=== PATIENT | male | born 1940 | race Caucasian/White ===

== ENCOUNTER 2016-04-28 10:48 | Emergency (ER) | payer OTHER ==
[~2016-04-28] VITALS: Ht 170.2 cm; Wt 126.6 kg
[~2016-04-28 10:48] MED LIST: AMIO200T4 PO; AMOX500T3 PO; ASPI81TA28 PO; BACL10TA PO; BUME2TAB3 PO; DABI1CAP PO; DOCU100C PO; METO25TA3 PO; MULT-106 PO; MULT-360 PO; POTA1080 PO; VITAMIN B12 INJ INJ
[2016-04-28 10:54] VITALS: TEMP 36.5; Ht 170.2 cm; Wt 126.6 kg
[2016-04-28] MEDS ORDERED: POTATAB13 PO (11:36)
[2016-04-28] MEDS ORDERED: AMOX1TAB42 PO (11:36)
[2016-04-28] MEDS ORDERED: [UNRECOGNIZED DRUG - CODE] PO (11:36)
[2016-04-28] MEDS ORDERED: POTA20TA16 PO (11:36)
[2016-04-28] MEDS ORDERED: OXYC1CAP5 PO (11:36)
[2016-04-28] MEDS ORDERED: CALC250T8 PO (11:36)
[2016-04-28] MEDS ORDERED: CHOL200027 PO (11:36)
[2016-04-28] MEDS ORDERED: LORAZEPAM 2 MG/ML 1 ML VIAL IV STA (12:01)
--- NOTE | 2016-04-28 12:06 | EMERGENCY ROOM VISIT NOTE ---
History Report prepared by Saman: Ludwin Palmer Under the Supervision of: Dr. Karissa Smith M.D. First contact with patient: 11:47 Chief Complaint: SWELLING TO EXTREMITY Stated Complaint: RT LEG/ANKLE SWOLLEN, RT HAND/WRIST PAIN History of Present Illness The patient is a 75 year old male who presents to the Emergency Room with complaints of constant swelling of the right lower extremity that began several days ago. The right lower extremity is also painful, rated 9/10 in severity. The patient also complains of pain to the right wrist and shortness of breath. The right wrist pain started at the same time as his leg swelling. The patient' s thought that his right wrist was swollen, which appears to be resolved. The patient commonly experiences shakes when he is in pain. The patient tripled his dose of diuretic last night. The patient has a history of knee surgery of both knees. He is also s/p gastric bypass. Source of History: patient Onset: several days ago Position: leg (right) Symptom Intensity: 9/10 Quality: other (swelling) Timing: constant Associated Symptoms: + SOB Review of Systems See HPI for pertinent positives & negatives. A total of 10 systems reviewed and were otherwise negative. Past Medical & Surgical Medical Problems: (1) ACUTE CHF, CHEST PAIN, BACK PAIN (2) Atrial fibrillation (3) Bioprosthetic bovine valve (4) Degenerative disc disease (5) Hyperlipidemia (6) Hypertension (7) Obstructive sleep apnea Family History No pertinent family history Social History Smoking Status: Never Smoker Marital Status: Housing Status: lives with family Occupation Status: retired, other Current/Historical Medications Scheduled Amiodarone Hcl (Cordarone), 200 MG PO QAM Amoxicillin (Amoxil), 20,000 MG PO PRN/UD Amoxicillin & Pot Clavulanate (Amoxicillin/Clavulanate P), 1 TAB PO TID Aspirin (Aspirin Ec), 81 MG PO QAM Baclofen (Lioresal), 0.5 TAB PO TID Bumetanide (Bumex), 2 MG PO BID Calcium Citrate (Calcium Citrate), 400 MG PO DAILY Cholecalciferol (Vitamin D-3), 2,000 UNITS PO DAILY Dabigatran Etexilate Mesylate (Pradaxa), 75 MG PO BID Docusate Sodium (Stool Softener), 100 MG PO HS Metoprolol Succ (Toprol Xl) (Toprol-Xl), 20 MG PO BID Multiple Vitamins W/ Minerals (One Daily Mens), 1 TAB PO QAM Potassium Citrate (Alkalinizer (Urocit-K 15), 20 MEQ PO TID Potassium Ext Rel (Klor-Con), 40 MEQ PO TID Zinc Gluconate (Zinc Gluconate), 1 TAB PO DAILY [Vitamin B12 Inj], 1 DOSE INJ UD Scheduled PRN Oxycodone Hcl (Oxycodone Hcl), 5 MG PO PRN PRN for Pain Allergies Coded Allergies: No Known Allergies (Verified , 03/05/16) Physical Exam Vital Signs Date Time Temp Pulse Resp B/P Pulse Ox O2 Delivery O2 Flow Rate FiO2 04/28/16 15:09 75 18 133/65 95 Room Air 04/28/16 13:58 68 20 153/76 96 Room Air 04/28/16 13:58 68 04/28/16 12:46 68 18 127/65 95 Room Air 04/28/16 11:38 Room Air 04/28/16 11:26 69 04/28/16 10:54 36.5 64 20 158/73 95 Room Air Physical Exam Vital signs reviewed. General: Well-appearing male that is hyperventilating, tearful and anxious. HEENT: No scleral icterus, PERRLA, neck supple. Atraumatic. Cardiovascular: Regular rate and rhythm, no extra sounds. Pulmonary: Clear to auscultation bilaterally, normal work of breathing. Abdomen: Soft, nontender, nondistended, positive bowel sounds. Musculoskeletal: Atraumatic. Slight swelling appreciated to the right greater than left lower extremities. BRISEIDA stockings in place. Neurologic: Patient awake alert and oriented x 3, full strength in all 4 extremities. Cranial nerves 2 through 12 grossly intact. Skin: Warm, dry, no rash Medical Decision & Procedures ER Provider Diagnostic Interpretation: X-ray results as stated below per my interpretation and radiologist interpretation. Other radiology results as stated below per my review and radiologist interpretation: RIGHT WRIST 4 VIEWS CLINICAL HISTORY: Right wrist pain. FINDINGS: 4 views of the right wrist are obtained. No prior studies are available for comparison at the time of dictation. The skeletal structures are osteopenic. No fracture is seen. Mild narrowing is present at the radiocarpal articulation. The joint spaces of the wrist are otherwise preserved. The overlying soft tissues are within normal limits. There is atherosclerotic calcification of the regional arteries. IMPRESSION: No acute bony abnormality is seen in the right wrist. Electronically signed by: Vargas Perales M.D. 04/28/2016 12:36 PM Dictated Date/Time: 04/28/2016 12:34 PM SINGLE VIEW CHEST CLINICAL HISTORY: Dyspnea. FINDINGS: An AP, portable, upright chest radiograph is compared to study dated 01/21/2016. The examination is degraded by portable technique, large body habitus, and patient rotation. The patient is status post midline sternotomy and aortic valve replacement. The heart is enlarged and there is atherosclerotic calcification of the thoracic area. Mild pulmonary vascular congestion is noted. No airspace consolidation, large pleural effusion, or pneumothorax is seen. The skeletal structures are osteopenic. The bony thorax is grossly intact. IMPRESSION: Cardiomegaly with mild pulmonary vascular congestion. There is no evidence of interstitial edema. Electronically signed by: Vargas Perales M.D. 04/28/2016 12:34 PM Dictated Date/Time: 04/28/2016 12:32 PM ULTRASOUND BILATERAL LOWER EXTREMITY VENOUS CLINICAL HISTORY: Lower extremity edema. COMPARISON STUDY: No priors. TECHNIQUE: Real-time, grayscale, and color Doppler sonography of the deep veins of the right and left lower extremity was performed from the inguinal crease to the calf. Compression and augmentation were utilized. FINDINGS: There is no sonographic evidence of deep venous thrombosis identified in the right or left lower extremity. The common femoral, superficial femoral, and popliteal veins are patent and normally compressible bilaterally. The greater saphenous vein and the profunda femoris vein at the junction with the common femoral vein are clear in both legs. The visualized calf veins are patent bilaterally. IMPRESSION: There is no sonographic evidence of deep venous thrombosis identified in the right or left lower extremity. Electronically signed by: Vargas Perales M.D. 04/28/2016 1:46 PM Dictated Date/Time: 04/28/2016 1:45 PM Laboratory Results 04/28/16 11:30 Red Blood Count 5.69, Mean Corpuscular Volume 80.3, Mean Corpuscular Hemoglobin 25.8, Mean Corpuscular Hemoglobin Concent 32.2, Mean Platelet Volume 10.2, Neutrophils (%) (Auto) 75.5, Lymphocytes (%) (Auto) 10.3, Monocytes (%) (Auto) 10.2, Eosinophils (%) (Auto) 3.3, Basophils (%) (Auto) 0.4, Neutrophils # (Auto ) 7.37, Lymphocytes # (Auto) 1.00, Monocytes # (Auto) 0.99, Eosinophils # (Auto ) 0.32, Basophils # (Auto) 0.04 04/28/16 11:30 Test 04/28/16 11:15 04/28/16 11:30 04/28/16 12:16 Urine Color YELLOW Urine Appearance CLEAR (CLEAR) Urine pH 8.0 (4.5-7.5) Urine Specific Arrington 1.003 (1.000-1.030) Urine Protein NEG (NEG) Urine Glucose (UA) NEG (NEG) Urine Ketones NEG (NEG) Urine Occult Blood NEG (NEG) Urine Nitrite NEG (NEG) Urine Bilirubin NEG (NEG) Urine Urobilinogen NEG (NEG) Urine Leukocyte Esterase NEG (NEG) White Blood Count 9.75 K/uL (4.8-10.8) Red Blood Count 5.69 M/uL (4.7-6.1) Hemoglobin 14.7 g/dL (14.0-18.0) Hematocrit 45.7 % (42-52) Mean Corpuscular Volume 80.3 fL (80-100) Mean Corpuscular Hemoglobin 25.8 pg (25-34) Mean Corpuscular Hemoglobin Concent 32.2 g/dl (32-36) Platelet Count 205 K/uL (130-400) Mean Platelet Volume 10.2 fL (7.4-10.4) Neutrophils (%) (Auto) 75.5 % Lymphocytes (%) (Auto) 10.3 % Monocytes (%) (Auto) 10.2 % Eosinophils (%) (Auto) 3.3 % Basophils (%) (Auto) 0.4 % Neutrophils # (Auto) 7.37 K/uL (1.4-6.5) Lymphocytes # (Auto) 1.00 K/uL (1.2-3.4) Monocytes # (Auto) 0.99 K/uL (0.11-0.59) Eosinophils # (Auto) 0.32 K/uL (0-0.5) Basophils # (Auto) 0.04 K/uL (0-0.2) RDW Standard Deviation 42.9 fL (36.4-46.3) RDW Coefficient of Variation 14.7 % (11.5-14.5) Immature Granulocyte % (Auto) 0.3 % Immature Granulocyte # (Auto) 0.03 K/uL (0.00-0.02) Anion Gap 11.0 mmol/L (3-11) Est Creatinine Clear Calc Drug Dose 36.5 ml/min Estimated GFR () 31.5 Estimated GFR (Non- 27.2 BUN/Creatinine Ratio 9.4 (10-20) Calcium Level 9.0 mg/dl (8.5-10.1) Magnesium Level 2.2 mg/dl (1.8-2.4) Total Bilirubin 0.7 mg/dl (0.2-1) Direct Bilirubin 0.1 mg/dl (0-0.2) Aspartate Amino Transf (AST/SGOT) 20 U/L (15-37) Alanine Aminotransferase (ALT/SGPT) 31 U/L (12-78) Alkaline Phosphatase 185 U/L (45-117) Total Creatine Kinase 57 U/L (39-308) Creatine Kinase MB 0.7 ng/ml (0.5-3.6) Creatine Kinase MB Ratio 1.2 (0-3.0) Total Protein 7.5 gm/dl (6.4-8.2) Albumin 3.7 gm/dl (3.4-5.0) Bedside D-Dimer 178 ng/mlFEU (0-450) Bedside Troponin I 0.010 ng/ml (0-0.045) Laboratory results per my review. Medications Administered Medications (Trade) Dose Ordered Sig/Hayden Route Start Time Stop Time Status Last Admin Dose Admin Lorazepam (Ativan Inj) 1 mg NOW STAT IV 04/28/16 12:01 04/28/16 15:15 DC 04/28/16 12:11 1 MG ECG Indication: SOB/dyspnea Rate (beats per minute): 68 Rhythm: normal sinus Findings: nonspecific-ST abn (Anterior), no ectopy, other (premature supraventricular complex) ED Course 1200: Past medical records reviewed. The patient was evaluated in room B11b. A complete history and physical examination was performed. 1201: Ativan 1 mg IV. 1450: Reassessed the patient. Discussed the findings with him. He verbalized understanding and agreement of the treatment plan. The patient is ready for discharge. Medical Decision Differential diagnosis: Etiologies such as DVT, musculoskeletal, infection, joint effusion, trauma, lymphedema, idiopathic, CHF, as well as others were entertained.. This patient was evaluated and appeared to be significantly he is tearful. He was hyperventilating. IV access was obtained and laboratory work was drawn. EKG reveals a normal sinus rhythm without ectopy. There is a nonspecific ST abnormality without clear evidence of ischemia. Laboratory work reveals an elevated creatinine which is chronic and at baseline. Ultrasound bilateral lower extremities are negative for DVT. Patient's chest x-ray is negative. He was feeling improved after IV Ativan. Patient was informed of the findings and felt comfortable with the plan for discharge. He will follow-up with his physician for reevaluation this week and return to the ER for worsening of symptoms or any medical concerns. Impression Primary Impression: Peripheral edema Additional Impressions: Chronic renal insufficiency Anxiety Scribe Attestation The scribe's documentation has been prepared under my direction and personally reviewed by me in its entirety. I confirm that the note above accurately reflects all work, treatment, procedures, and medical decision making performed by me. Departure Information Dispostion Home / Self-Care Referrals Cristopher Harmon M.D. (PCP) Forms HOME CARE DOCUMENTATION FORM, IMPORTANT VISIT INFORMATION, WORK / SCHOOL INSTRUCTIONS Patient Instructions My [facility] Additional Instructions Diagnosis: Dependent edema, anxiety, chronic renal insufficiency Please continue your medications as prescribed. Follow-up with Dr. Cristopher Moore in this week for reevaluation. Return to the ER for worsening of symptoms or any medical concerns. Problem Qualifiers Additional Impressions: Chronic renal insufficiency Chronic kidney disease stage: unspecified stage Qualified Codes: N18.9 - Chronic kidney disease, unspecified
[2016-04-28 12:19] LABS: BASO % 0.4 %; BASO ABS # 0.04 K/uL (0-0.2); COMPLETE YES; EOS % 3.3 %; HEMATOCRIT 45.7 % (42-52); IG% 0.3 %; LYMPH % 10.3 %; MEAN CELL VOLUME 80.3 fL (80-100); MEAN CORPUSCULAR HEMOGLOBIN 25.8 pg (25-34); MEAN CORPUSCULAR HGB CONC 32.2 g/dl (32-36); MEAN PLATELET VOLUME 10.2 fL (7.4-10.4); MONO % 10.2 %; NEUT % 75.5 %; PLATELET COUNT 205 K/uL (130-400); RED BLOOD COUNT 5.69 M/uL (4.7-6.1); WHITE BLOOD COUNT 9.75 K/uL (4.8-10.8)
[2016-04-28 12:33] LABS: BUN/CREATININE RATIO 9.4 (10-20); CREATININE 2.3 mg/dl (0.60-1.40); MAGNESIUM 2.2 mg/dl (1.8-2.4); POTASSIUM 3.8 mmol/L (3.5-5.1)
--- NOTE | 2016-04-28 12:35 | DIAGNOSTIC IMAGING REPORT ---
SINGLE VIEW CHEST CLINICAL HISTORY: Dyspnea. FINDINGS: An AP, portable, upright chest radiograph is compared to study dated 01/21/2016. The examination is degraded by portable technique, large body habitus, and patient rotation. The patient is status post midline sternotomy and aortic valve replacement. The heart is enlarged and there is atherosclerotic calcification of the thoracic area. Mild pulmonary vascular congestion is noted. No airspace consolidation, large pleural effusion, or pneumothorax is seen. The skeletal structures are osteopenic. The bony thorax is grossly intact. IMPRESSION: Cardiomegaly with mild pulmonary vascular congestion. There is no evidence of interstitial edema. Electronically signed by: Vargas Perales M.D. 04/28/2016 12:34 PM Dictated Date/Time: 04/28/2016 12:32 PM
[2016-04-28 12:36] LABS: URINE APPEARANCE CLEAR (CLEAR); URINE BILIRUBIN NEG (NEG); URINE COLOR YELLOW; URINE NITRITE NEG (NEG); URINE SPECIFIC GRAVITY 1.003 (1.000-1.030); UROBILINOGEN NEG (NEG); ZZUR CULT IF INDIC CLEAN CATCH NO
--- NOTE | 2016-04-28 12:37 | DIAGNOSTIC IMAGING REPORT ---
RIGHT WRIST 4 VIEWS CLINICAL HISTORY: Right wrist pain. FINDINGS: 4 views of the right wrist are obtained. No prior studies are available for comparison at the time of dictation. The skeletal structures are osteopenic. No fracture is seen. Mild narrowing is present at the radiocarpal articulation. The joint spaces of the wrist are otherwise preserved. The overlying soft tissues are within normal limits. There is atherosclerotic calcification of the regional arteries. IMPRESSION: No acute bony abnormality is seen in the right wrist. Electronically signed by: Vargas Perales M.D. 04/28/2016 12:36 PM Dictated Date/Time: 04/28/2016 12:34 PM
[2016-04-28 12:38] LABS: CKMB/CK RATIO 1.2 (0-3.0)
[2016-04-28 12:50] LABS: MANUAL MICROSCOPIC REQUIRED? NO; REVIEW REQ? NO
--- NOTE | 2016-04-28 13:47 | DIAGNOSTIC IMAGING REPORT ---
ULTRASOUND BILATERAL LOWER EXTREMITY VENOUS CLINICAL HISTORY: Lower extremity edema. COMPARISON STUDY: No priors. TECHNIQUE: Real-time, grayscale, and color Doppler sonography of the deep veins of the right and left lower extremity was performed from the inguinal crease to the calf. Compression and augmentation were utilized. FINDINGS: There is no sonographic evidence of deep venous thrombosis identified in the right or left lower extremity. The common femoral, superficial femoral, and popliteal veins are patent and normally compressible bilaterally. The greater saphenous vein and the profunda femoris vein at the junction with the common femoral vein are clear in both legs. The visualized calf veins are patent bilaterally. IMPRESSION: There is no sonographic evidence of deep venous thrombosis identified in the right or left lower extremity. Electronically signed by: Vargas Perales M.D. 04/28/2016 1:46 PM Dictated Date/Time: 04/28/2016 1:45 PM
[2016-04-28 13:51] LABS: POINT OF CARE TROPONIN I 0.01 ng/ml (0-0.045)
[2016-04-28 15:09] VITALS: BP 133/65; PULSE 75; O2SAT 95
[2016-06-17] MEDS ORDERED: PRED-301 PO (13:04)
[2016-06-17] MEDS ORDERED: ALLOPURINOL PO (13:04)
== END 2016-04-28 15:35 | disposition home or self-care (01) ==
LOC: C.EDB 10:50
DX: R60.0 Localized edema (principal); N18.9 Chronic kidney disease, unspecified; F41.9 Anxiety disorder, unspecified; M25.531 Pain in right wrist; R06.02 Shortness of breath; I48.91 Unspecified atrial fibrillation; I12.9 Hypertensive chronic kidney disease with stage 1 through stage 4 chronic kidney disease, or unspecified chronic kidney disease; Z98.890 Other specified postprocedural states; Z98.84 Bariatric surgery status; Z95.2 Presence of prosthetic heart valve

== ENCOUNTER → 2016-04-30 | Outpatient (CLI) | payer OTHER ==
[~2016-04-30] MED LIST changes: +ALLOPURINOL PO; +AMOX1TAB42 PO; +CALC250T8 PO; +CHOL200027 PO; -MULT-360 PO; +OXYC1CAP5 PO; -POTA1080 PO; +POTA20TA16 PO; +POTATAB13 PO; +PRED-301 PO; +[UNRECOGNIZED DRUG - CODE] PO
== END | disposition home or self-care (01) ==
LOC: C.LABSPEC 12:33
PROVIDERS: ATTEND Internal Medicine
DX: M19.071 Primary osteoarthritis, right ankle and foot (principal)

== ENCOUNTER → 2016-06-11 | Outpatient (CLI) | payer OTHER ==
[2016-06-11 14:39] LABS: BASO % 0.3 %; BASO ABS # 0.02 K/uL (0-0.2); COMPLETE YES; HEMATOCRIT 44.6 % (42-52); MEAN CELL VOLUME 82.1 fL (80-100); MEAN CORPUSCULAR HEMOGLOBIN 26.2 pg (25-34); MEAN CORPUSCULAR HGB CONC 31.8 g/dl (32-36); MEAN PLATELET VOLUME 10.7 fL (7.4-10.4); MONO % 9.7 %; PLATELET COUNT 149 K/uL (130-400); RED BLOOD COUNT 5.43 M/uL (4.7-6.1); WHITE BLOOD COUNT 7.04 K/uL (4.8-10.8)
[2016-06-11 14:49] LABS: ALT/SGPT 27 U/L (12-78); AST/SGOT 19 U/L (15-37); BLOOD UREA NITROGEN 19 mg/dl (7-18); BUN/CREATININE RATIO 8.6 (10-20); CALCIUM 8.1 mg/dl (8.5-10.1); CARBON DIOXIDE 34 mmol/L (21-32); CHLORIDE 106 mmol/L (98-107); GLUCOSE 68 mg/dl (70-99); POTASSIUM 3.6 mmol/L (3.5-5.1); SODIUM 147 mmol/L (136-145); URIC ACID 6.5 mg/dl (2.6-7.2)
[2016-06-11 14:52] LABS: ALKALINE PHOSPHATASE 157 U/L (45-117)
== END | disposition home or self-care (01) ==
LOC: C.LABSPEC 10:47
PROVIDERS: ATTEND Internal Medicine
DX: M10.9 Gout, unspecified (principal); N18.9 Chronic kidney disease, unspecified; I10 Essential (primary) hypertension

== ENCOUNTER → 2016-07-01 | Outpatient (CLI) | payer OTHER ==
[~2016-07-01] MED LIST changes: -AMOX1TAB42 PO; -BACL10TA PO
--- NOTE | 2016-07-01 12:20 | DIAGNOSTIC IMAGING REPORT ---
CHEST 2 VIEWS ROUTINE CLINICAL HISTORY: Bronchitis. Evaluate for pneumonia. COMPARISON STUDY: Chest radiograph April 28, 2016. FINDINGS: Lung volumes are normal. There is no pneumothorax or pleural effusion. There are are median sternotomy wires and a prosthetic aortic valve. Moderate cardiomegaly is unchanged. There is no evidence of pulmonary edema. No consolidation to suggest pneumonia. IMPRESSION: 1. No acute cardiopulmonary findings. 2. Stable cardiomegaly without evidence of pulmonary edema. Electronically signed by: Eddy Bashir M.D. 07/01/2016 12:19 PM Dictated Date/Time: 07/01/2016 12:17 PM
== END | disposition home or self-care (01) ==
LOC: C.RAD 11:54
PROVIDERS: ATTEND Internal Medicine
DX: J40 Bronchitis, not specified as acute or chronic (principal); I51.7 Cardiomegaly

== ENCOUNTER → 2016-07-02 | Day surgery (SDC) | payer OTHER ==
[2016-06-17 13:05] VITALS: Ht 170.2 cm; Wt 118.2 kg
[~2016-07-02] VITALS: Ht 170.2 cm; Wt 118.2 kg
[~2016-07-02] MED LIST changes: +IOPAMIDOL INJ 61% 15 ML VIAL ONE; +LIDOCAINE HCL 1% MPF 5 ML VIAL ONE; +SODIUM CHLORIDE 0.9% INJ 10 ML VIAL ONE
[2016-07-02 14:03] VITALS: TEMP 36.8
--- NOTE | 2016-07-02 14:58 | History & Physical Bridge - SC ---
H&P Re-Evaluation Bridge Note: I have examined the patient, reviewed the History & Physical and in the interval since the performance of the History & Physical I have noted the following changes of clinical significance: No changes noted
[2016-07-02 15:24] VITALS: BP 162/88; PULSE 71; O2SAT 94
--- NOTE | 2016-07-02 15:25 | Discharge Instructions ---
Discharge Instructions Date of Service Jul 02, 2016. Visit Reason for Visit: Lumbar Radiculopathy Discharge Discharge Diagnosis / Problem: right leg pain Discharge Goals Goal(s): Decrease discomfort, Improve function Medications Stopped Medications Name(s): ASA 81mg and Pradaxa stopped Sat 06/28 Activity Recommendations Activity Limitations: resume your previous activity Anesthesia . Post Anesthesia Instructions: If you have had General Anesthesia or IV Sedation: * Do not drive today. * Resume driving when surgeon permits. * Do not make important decisions or sign legal documents today. * Call surgeon for: 1. Temperature elevations greater than 101 degrees F. 2. Uncontrollable pain. 3. Excessive bleeding. 4. Persistent nausea and vomiting. 5. Medication intolerance (nausea, vomiting or rash). * For nausea and vomiting use only clear liquids such as: tea, soda, bouillon until nausea subsides, then gradually increase diet as tolerated. * If you have any concerns or questions, call your surgeon's office. If physician is unavailable and it is an emergency, call 911 or go to the nearest emergency room. . Diet Recommendations Recommended Home Diet: resume previous diet Procedures Procedures Performed: LUMBAR EPIDURAL STEROID INJECTION Pending Studies Studies pending at discharge: no Medical Emergencies . Who to Call and When: Medical Emergencies: If at any time you feel your situation is an emergency, please call 911 immediately. . Non-Emergent Contact Non-Emergency issues call your: Specialist . . "Provider Documentation" section prepared by Sergio Bergeron.
--- NOTE | 2016-07-02 16:26 | OPERATIVE REPORT ---
DATE OF OPERATION: 07/02/2016 PREOPERATIVE DIAGNOSIS: Multifactorial L3-4, L4-5 stenosis with right S1 radiculopathy. POSTOPERATIVE DIAGNOSIS: Same. PROCEDURE: Right paramedian L5-S1 intralaminar epidural steroid injection under fluoroscopic guidance. SURGEON: Dr. Sergio Bergeron. INDICATIONS: The patient is a 76-year-old white male who received an epidural injection in early February with great results, however the pain has been returning gradually. He presents today for an injection to provide him with continued pain relief. PHYSICAL EXAMINATION: GENERAL: Pleasant male seated comfortably in no apparent distress. MUSCULOSKELETAL EXAMINATION: Lumbar paraspinal muscles were palpated and noted be nontender. He had no issues with sustained extension. He has some mild discomfort with forward flexion. He had some mild sciatic notch sensitivity on the right. He had normal lower extremity strength and sensation with negative seated straight leg raises. CONSENT: Verbal and written consent was obtained from the patient. Risks and benefits were reviewed. Risks include but are not limited to infection, abscess, hematoma, allergic reaction, dural puncture. He wishes to proceed. PROCEDURE: The patient was taken back to the special procedures room of the [facility] where he was maintained in a prone position. Backside was cleansed with Betadine x3 and a dry sterile dressing was applied. Fluoroscope was used to identify the L5-S1 intralaminar space. Overlying skin on the right side was anesthetized with 4 mL of lidocaine 1% with a 25 gauge 1.5-inch needle. A 22 gauge 4-1/4 inch Tuohy needle was then directed down towards the intralaminar space. It was advanced under lateral fluoroscopic guidance and loss of resistance was noted at a depth of 12 cm. Isovue-300 contrast 1 mL was injected in which demonstrated epidural uptake pattern with great outline of the right S1 nerve root. He then underwent injection after negative aspiration of 40 mg of Depo-Medrol and 4 mL of preservative free sodium chloride. Injection was well tolerated. DISPOSITION: 1. The patient is taken out into the discharge recovery area where he will be discharged home once discharge criteria have been met. 2. Follow up in the [facility] office in 2-4 weeks. I attest to the content of the Intraoperative Record and any orders documented therein. Any exceptio ns are noted below.
== END | disposition home or self-care (01) ==
LOC: X.SURG 13:50
PROVIDERS: ATTEND Physical Medicine & Rehabilitation
DX: M48.06 Spinal stenosis, lumbar region (principal); Z79.82 Long term (current) use of aspirin

== ENCOUNTER → 2016-08-19 | Outpatient (CLI) | payer OTHER ==
[~2016-08-19] MED LIST changes: -IOPAMIDOL INJ 61% 15 ML VIAL ONE; -LIDOCAINE HCL 1% MPF 5 ML VIAL ONE; -SODIUM CHLORIDE 0.9% INJ 10 ML VIAL ONE
--- NOTE | 2016-08-19 09:21 | DIAGNOSTIC IMAGING REPORT ---
CT SCAN OF THE ABDOMEN WITHOUT IV CONTRAST CLINICAL HISTORY: Renal cell carcinoma status post left nephrectomy. COMPARISON STUDY: Abdominal CT dated 03/05/2015. TECHNIQUE: CT scan of the abdomen is performed from the lung bases to the pelvic inlet. Images are reviewed in the axial, sagittal, and coronal planes. IV contrast was not administered for this examination. Automated dose control exposure was utilized. CT DOSE: 1101.09 mGy.cm FINDINGS: Lung bases: There are midline sternotomy wires and a prosthetic aortic valve is noted. The heart is enlarged and without pericardial effusion. The lung bases are clear. There is a tiny hiatal hernia. Liver: The unenhanced liver is normal in size, contour, and attenuation. There is minimal central intrahepatic biliary ductal dilatation. A 10 mm cyst is again seen in the left hepatic lobe. Gallbladder: Surgically absent noting clips in the gallbladder fossa. Spleen: Normal in size and attenuation. Pancreas: The unenhanced pancreas is moderately atrophic and grossly unremarkable. Adrenal glands: Mild nodularity of the left adrenal gland is similar to previous. The right adrenal gland is unremarkable. Kidneys: Left kidney is surgically absent. Mild nodularity within the operative bed likely represents postoperative change. There is no evidence of enlarging residual soft tissue lesion at this site. The unenhanced right kidney demonstrates cortical atrophy and is without hydronephrosis. A 1.3 cm exophytic cyst is again seen arising posteriorly from the interpolar right kidney. There is no evidence of solid right renal mass and this unenhanced examination. No right renal calculi are identified. Abdominal vasculature: The abdominal aorta is normal in course and caliber noting mild to moderate atherosclerotic calcification. Bowel: Postoperative changes are consistent with a history of Juan-en-Y gastric bypass surgery. No bowel obstruction is seen. There are several small duodenal diverticula. The appendix is well-visualized and normal. Peritoneum: There is no intraperitoneal free air or abdominal ascites. There is evidence of previous umbilical hernia repair. Lymphadenopathy: None. Skeletal structures: The skeletal structures are osteopenic. Mild lumbosacral spondylosis is observed. No lytic or blastic lesions are seen. IMPRESSION: 1. There is no convincing evidence of recurrent or metastatic disease in the abdomen on this unenhanced examination. 2. Nonmass-like densities/nodularity in the operative bed is similar to previous and likely represents postoperative change/scarring. 3. The right kidney demonstrates cortical atrophy. There is no evidence of right renal mass on this unenhanced examination. 4. There are postoperative changes from a Juan-en-Y gastric bypass procedure. No bowel obstruction is seen. 5. Cardiomegaly. 6. Additional findings as above. Electronically signed by: Vargas Perales M.D. 08/19/2016 9:20 AM Dictated Date/Time: 08/19/2016 9:11 AM
== END | disposition home or self-care (01) ==
LOC: C.CTS 08:54
PROVIDERS: ATTEND Internal Medicine
DX: N17.9 Acute kidney failure, unspecified (principal); I51.7 Cardiomegaly

== ENCOUNTER → 2016-10-21 | Outpatient (CLI) | payer OTHER | END | disposition home or self-care (01) | LOC: C.LAB1850 12:25 | PROVIDERS: ATTEND Internal Medicine | DX: I50.32 Chronic diastolic (congestive) heart failure (principal) ==

== ENCOUNTER → 2017-02-18 | Outpatient (CLI) | payer OTHER ==
[2017-02-18 16:28] LABS: BLOOD UREA NITROGEN 26 mg/dl (7-18); BUN/CREATININE RATIO 12.1 (10-20); CALCIUM 8.9 mg/dl (8.5-10.1); CARBON DIOXIDE 29 mmol/L (21-32); CHLORIDE 105 mmol/L (98-107); CREATININE 2.14 mg/dl (0.60-1.40); GLUCOSE 97 mg/dl (70-99); POTASSIUM 3.6 mmol/L (3.5-5.1); SODIUM 142 mmol/L (136-145)
[2017-02-18 17:51] LABS: URINE APPEARANCE CLEAR (CLEAR); URINE BILIRUBIN NEG (NEG); URINE COLOR YELLOW; URINE EPITHELIAL CELL AUTO 0-5 /lpf (0-5); URINE NITRITE NEG (NEG); URINE PH 5.5 (4.5-7.5); URINE SPECIFIC GRAVITY 1.013 (1.000-1.030); UROBILINOGEN NEG (NEG)
[2017-02-18 18:01] LABS: MANUAL MICROSCOPIC REQUIRED? NO; REVIEW REQ? NO
[2017-02-18 18:02] LABS: CREATININE RANDOM URINE 96.4 mg/dl
[2017-02-18 18:15] LABS: RATIO 6.6 mcg/mg (0-30.0)
== END | disposition home or self-care (01) ==
LOC: C.LAB1850 14:57
PROVIDERS: ATTEND Internal Medicine
DX: E78.5 Hyperlipidemia, unspecified (principal)

== ENCOUNTER → 2017-03-03 | Outpatient (CLI) | payer OTHER ==
[2017-03-03 14:55] LABS: GLUCOSE,FASTING 100 mg/dl (70-99)
[2017-03-03 15:01] LABS: CHOLESTEROL 171 mg/dl (0-200); HDL CHOLESTEROL 43 mg/dl; TRIGLYCERIDES 140 mg/dl (0-150); VERY LOW DENSITY LIPOPROT CALC 28 mg/dl
[2017-03-04 06:29] LABS: ESTIMATED AVERAGE GLUCOSE 123 mg/dl; HA1C FLAG Normal (Normal)
== END | disposition home or self-care (01) ==
LOC: C.LABSPEC 14:29
PROVIDERS: ATTEND Internal Medicine
DX: E78.5 Hyperlipidemia, unspecified (principal); I25.10 Atherosclerotic heart disease of native coronary artery without angina pectoris; E11.9 Type 2 diabetes mellitus without complications

== ENCOUNTER → 2017-04-14 | Outpatient (CLI) | payer OTHER ==
[2017-04-14 13:24] LABS: BASO % 1.4 %; EOS % 1.7 %; EOS ABS # 0.12 K/uL (0-0.5); HEMATOCRIT 43.4 % (42-52); HEMOGLOBIN 13.7 g/dL (14.0-18.0); IG# 0.01 K/uL (0.00-0.02); LYMPH % 13.6 %; LYMPH ABS # 0.94 K/uL (1.2-3.4); MEAN CORPUSCULAR HEMOGLOBIN 26.2 pg (25-34); MEAN CORPUSCULAR HGB CONC 31.6 g/dl (32-36); MONO % 8.9 %; MONO ABS # 0.62 K/uL (0.11-0.59); NEUT % 74.3 %; NEUT ABS # 5.14 K/uL (1.4-6.5); PLATELET COUNT 190 K/uL (130-400); RED CELL DISTRIBUTION WIDTH CV 15.6 % (11.5-14.5); RED CELL DISTRIBUTION WIDTH SD 47.1 fL (36.4-46.3); WHITE BLOOD COUNT 6.93 K/uL (4.8-10.8)
[2017-04-14 14:03] LABS: ALBUMIN 3.3 gm/dl (3.4-5.0); ALT/SGPT 27 U/L (12-78); AST/SGOT 21 U/L (15-37); BLOOD UREA NITROGEN 23 mg/dl (7-18); CALCIUM 8.6 mg/dl (8.5-10.1); CARBON DIOXIDE 29 mmol/L (21-32); CREATININE 2.19 mg/dl (0.60-1.40); GLUCOSE 89 mg/dl (70-99); POTASSIUM 3.7 mmol/L (3.5-5.1); SODIUM 140 mmol/L (136-145)
[2017-04-14 14:05] LABS: ALKALINE PHOSPHATASE 156 U/L (45-117); TOTAL PROTEIN 6.9 gm/dl (6.4-8.2)
== END | disposition home or self-care (01) ==
LOC: C.LABSPEC 12:53
PROVIDERS: ATTEND Internal Medicine
DX: J20.9 Acute bronchitis, unspecified (principal); R68.83 Chills (without fever)

== ENCOUNTER → 2017-04-14 | Outpatient (CLI) | payer OTHER ==
--- NOTE | 2017-04-14 11:40 | DIAGNOSTIC IMAGING REPORT ---
CHEST 2 VIEWS ROUTINE HISTORY: 76 years-old Male DYSPENA acute bronchitis COMPARISON: Chest radiographs 07/01/2016 TECHNIQUE: PA and lateral views of the chest FINDINGS: Cardiac silhouette is again enlarged, unchanged. Prior median sternotomy with prosthetic aortic valve. Atherosclerosis of the aorta. There is no pneumothorax, pleural effusion, focal airspace consolidation or overt pulmonary edema. Bones of the chest appear grossly intact. Surgical clips are seen within the upper abdomen. IMPRESSION: 1. Cardiomegaly without pulmonary edema. 2. Prior median sternotomy with prosthetic aortic valve. The above report was generated using voice recognition software. It may contain grammatical, syntax or spelling errors. Electronically signed by: Waldo Goode M.D. 04/14/2017 11:38 AM Dictated Date/Time: 04/14/2017 11:37 AM
== END | disposition home or self-care (01) ==
LOC: C.RAD 11:17
PROVIDERS: ATTEND Internal Medicine
DX: R06.00 Dyspnea, unspecified (principal); J40 Bronchitis, not specified as acute or chronic; I51.7 Cardiomegaly; Z95.2 Presence of prosthetic heart valve

== ENCOUNTER → 2017-06-01 | Outpatient (CLI) | payer OTHER ==
[2017-06-05 18:00] LABS: FECAL OCCULT BLOOD #1 NEGATIVE (NEGATIVE); FECAL OCCULT BLOOD #2 NEGATIVE (NEGATIVE); FECAL OCCULT BLOOD #3 NEGATIVE (NEGATIVE)
== END | disposition home or self-care (01) ==
LOC: C.LABSPEC 16:00
PROVIDERS: ATTEND Internal Medicine
DX: Z12.11 Encounter for screening for malignant neoplasm of colon (principal)

== ENCOUNTER → 2017-07-03 | Outpatient (CLI) | payer OTHER ==
[~2017-07-03] MED LIST changes: +POTA-639 PO; -POTA20TA16 PO
[2017-07-03 13:05] LABS: HEMOGLOBIN A1C 5.7 % (4.5-5.6)
[2017-07-03 16:49] LABS: BLOOD UREA NITROGEN 21 mg/dl (7-18); CALCIUM 8.8 mg/dl (8.5-10.1); CARBON DIOXIDE 27 mmol/L (21-32); CREATININE 2.12 mg/dl (0.60-1.40); GLUCOSE 97 mg/dl (70-99); SODIUM 141 mmol/L (136-145)
[2017-07-03 16:52] LABS: CHOLESTEROL 180 mg/dl (0-200); LDL CHOLESTEROL (DIRECT) 126 mg/dl
== END | disposition home or self-care (01) ==
LOC: C.LABSPEC 12:20
PROVIDERS: ATTEND Internal Medicine
DX: E11.9 Type 2 diabetes mellitus without complications (principal); I25.10 Atherosclerotic heart disease of native coronary artery without angina pectoris; I10 Essential (primary) hypertension; E78.5 Hyperlipidemia, unspecified

== ENCOUNTER → 2017-11-03 | Outpatient (CLI) | payer OTHER ==
[2017-11-03 13:48] LABS: BLOOD UREA NITROGEN 25 mg/dl (7-18); CALCIUM 8.6 mg/dl (8.5-10.1); CARBON DIOXIDE 26 mmol/L (21-32); CHOLESTEROL 193 mg/dl (0-200); CREATININE 1.89 mg/dl (0.60-1.40); GLUCOSE 84 mg/dl (70-99); LDL CHOLESTEROL (DIRECT) 143 mg/dl; POTASSIUM 3.8 mmol/L (3.5-5.1); SODIUM 142 mmol/L (136-145)
== END | disposition home or self-care (01) ==
LOC: C.LABSPEC 12:54
PROVIDERS: ATTEND Internal Medicine
DX: R73.9 Hyperglycemia, unspecified (principal); N17.9 Acute kidney failure, unspecified; I25.10 Atherosclerotic heart disease of native coronary artery without angina pectoris; I10 Essential (primary) hypertension

== ENCOUNTER 2022-07-10 17:07 | Inpatient (IN) ==
--- NOTE | 2022-07-10 17:20 | ED Triage Note ---
Date of Service July 10, 2022 History of Present Illness This patient was briefly evaluated while in triage. An abbreviated physical exam was performed. This patient is a 82-year-old Male who presents to the ED for evaluation of shortness of breath for the past week, has been getting worse. Denies chest p ain. Feels that his legs have been more swollen. States takes a fluid pill, has not missed doses. Physical Exam CONSTITUTIONAL: No acute distress. Well appearing. RESPIRATORY: Clear to auscultation bilaterally. Equal expansion bilaterally. CARDIOVASCULAR: Tachycardic rate, irregular rhythm with no murmurs, rubs or gallops. Normal peripheral perfusion. Bilateral peripheral edema. GASTROINTESTINAL: Soft, nontender. NEUROLOGIC: Alert and oriented X 4 with normal affect. Initial orders for labs and / or imaging were placed and patient was placed in the waiting area until a bed is available. Please see further documentation for the full ED course.
--- NOTE | 2022-07-10 17:48 | XRay Report ---
XR chest 1V portable CLINICAL HISTORY: Chest pain, nonspecific COMPARISON STUDY: Chest CT December 21, 2017 and chest radiograph August 19, 2021. FINDINGS: There are median sternotomy wires and prosthetic aortic valve. Cardiomegaly is unchanged. N o pneumothorax or pleural effusion is present. No consolidation to suggest pneumonia. There is pulmon sukumar vascular congestion without overt pulmonary edema. IMPRESSION: Cardiomegaly. Pulmonary vascular congestion without overt pulmonary edema. ACT 112: Negative or not required by law. Electronically signed by: Eddy Bashir M.D. 07/10/2022 5:47 PM
[2022-07-10 18:04] LABS: Eosinophils # (auto) 0.23 K/uL (0-0.50); Eosinophils % (auto) 2.3 %; Hematocrit (blood only) 40.1 % (42.0-52.0); Hemoglobin 12.3 g/dl (14.0-18.0); Immature Granulocytes # (auto) 0.06 K/uL (0.01-0.20); Immature Granulocytes % (auto) 0.6 %; Lymphocytes # (auto) 1.28 K/uL (1.2-3.4); Lymphocytes % (auto) 12.6 %; Mean Corpuscular Hemoglobin 24.4 pg (25.0-34.0); Mean Corpuscular Hgb Conc 30.7 g/dL (32.0-36.0); Mean Corpuscular Volume 79.6 fL (80.0-100.0); Mean Platelet Volume 10.2 fL (9.4-12.4); Monocytes # (auto) 0.66 K/uL (0.11-0.59); Monocytes % (auto) 6.5 %; Platelet Count 216 K/uL (130-400); RDW Coefficient of Variation 16.9 % (11.5-14.5); RDW Standard Deviation 47.1 fL (36.4-46.3); Red Blood Count 5.04 M/uL (4.70-6.10); White Blood Count 10.13 K/ul (4.8-10.8)
[2022-07-10 18:11] LABS: Albumin Globulin Ratio 1.3 (0.9-2); Albumin Level 3.9 gm/dl (3.4-5.0); BUN Creatinine Ratio 16.3 (10-20); Bilirubin,Total 0.7 mg/dl (0.2-1.0); Calcium 9.7 mg/dl (8.6-10.3); Creatinine Clr Calc Pharmacy 32.6 ml/min; Est GFR (African American) 30.4 ml/min; Est GFR (Non-African American) 26.3 ml/min; Total Protein 6.9 gm/dl (6.0-8.3)
--- NOTE | 2022-07-10 18:16 | Emergency Department Note ---
Impression & Plan Atrial fibrillation with rapid ventricular response, DEONNA (acute kidney injury) ED Provider Note NAME: MYESHA TRAN JR AGE: 82 SEX: M : 1940 ARRIVES VIA: Walk-In INFORMANT: Patient ED PROVIDER(S): Jerrell Tiwari DO CHIEF COMPLAINT: shortness of breath HPI: Patient is an 82-year-old male with a past medical history of A-fib, CKD, aortic valve replacement, CHF, hypertension and hyperlipidemia as well as sleep apnea that presents to the ER for shortness of breath which has been getting worse over the past 2 months. Specifically over the past week he cannot walk m ore than 5 feet without getting significantly short of breath. Denies any belly pain, nausea, vomiting, or diarrhea. No dysuria, urgency, or frequency. He feels as though he can no longer function at this point. PAST MEDICAL HISTORY:See Below PAST SURGICAL HISTORY:See Below FAMILY HISTORY:See Below SOCIAL HISTORY:See Below HOME MEDICATIONS:See Below ALLERGIES:See Below VITALS:See Below PHYSICAL EXAMINATION: GENERAL: Sitting up in bed, alert, morbidly obese, disheveled EYE EXAM: normal conjunctiva. OROPHARYNX: mucous membranes are moist LUNGS: Clear to auscultation. Normal chest wall mechanics HEART: Tachycardic and irregular regular, S1 normal and S2 normal ABDOMEN: abdomen soft, non-tender, normo-active bowel sounds, no masses, no rebound or guarding. UPPER EXTREMITIES: upper extremities are grossly normal. LOWER EXTREMITIES: Pitting edema in the lower extremities NEURO EXAM: Normal sensorium, cranial nerves II-XII grossly intact, normal speech, no gross weakness of arms, no gross weakness of legs. MEDICAL DECISION MAKING: Patient is an 82-year-old male who presents ER for above-stated complaint. IV was established blood work is obtained. External records were reviewed. He is found to be in A-fib with RVR. Labs show no leukocytosis. INR was unremarkable. BMP with a creatinine of 2.2 up from baseline of 1.8. LFTs were unremarkable. Troponin was negative. Pending upon admission. BNP was up at 416. Do question if this is rate related as heart rate was in the 130s. He was given a dose of Lopressor and trend down to the 100s. Patient was updated bedside discussed with the hospitalist Dr. Ramos for further evaluation management and treatment. Triage Nursing notes reviewed. Limited review of prior medical records performed Vital Signs: reviewed and remarkable for tachycardic Differential diagnosis: Differential diagnoses includes but is not limited to pneumonia, bronchitis, COPD/Asthma exacerbation, pneumothorax, pulmonary embolism, congestive heart failure, acute coronary syndrome ER treatment provided: See below Diagnostics interpreted by me include EKG and cardiac monitoring as listed below: -Cardiac Monitoring: An order was placed for continuous cardiac monitoring. The monitor shows a rate of 117 with A-fib rhythm. -ECG: A-fib rate with RVR 115 Normal axis PVCs present QTc [address] wave changes in the inferior leads -Laboratory studies:Interpreted by me as stated above in MDM and shown below. Imaging studies: Xrays: As interpreted by me: Portable AP upright 1 view of the chest shows no pneumonia CTs show: none Consultation(s): As described in MDM Procedures:none Critical Care: None Past Med/Surg History Medical History Atrial fibrillation Chronic diastolic CHF (congestive heart failure) Chronic low back pain with right-sided sciatica CKD (chronic kidney disease), stage III History of anxiety History of aortic valve disease History of COVID-19 Hx of gout Hx of impacted cerumen Hx of osteoarthritis Hx of rotator cuff tear Hyperlipidemia Hypertension Kidney stones Morbid obesity Obstructive sleep apnea Prediabetes Renal cell adenocarcinoma Surgical History Aortic valve replaced History of cholecystectomy History of esophagogastroduodenoscopy (EGD) History of gastric bypass History of left nephrectomy History of spinal surgery History of total bilateral knee replacement Hx of cardiac catheterization Hx of colonoscopy Hx of cystoscopy Hx of tonsillectomy Family History Mother Breast cancer Lung disease Grandmother (Maternal) Breast cancer Aunt Breast cancer Sister Breast cancer Father Myocardial infarction Arthritis Denies family history of Ovarian cancer Prostate cancer Colorectal cancer Social History Smoking Status: Never smoker Second Hand Exposure: Yes (as a child-parents were chain smokers); Hx Alcohol Use: Yes Hx Substance Use: No Preferred Language: Bahamian Communication Ability: Effective Visual Impairment: No Limitations Hearing Ability: Normal Value Stream Coach Required: No Beliefs That Will Affect Care: None marital status: Current Living Situation: Spouse and Family current occupational status: retired 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[employer] Feels Safe at Home: Yes Childhood Exposure to Second-Hand Smoke: Yes Dental Care, Regularly: Yes Physical Activity Frequency: Does not Exercise Physical Activity Frequency Comment: Physical activity limited due to medical conditions Seatbelt Use: always Sunscreen Use: No Assistive Devices: BiPap, Cane and Glasses Allergies Allergies Allergy/AdvReac Type Severity Reaction Status Date / Time Iodinated Contrast Media Allergy Unknown Verified 07/01/22 08:55 [Iodinated Contrast- Oral and IV Dye] Home Meds Home Medications Medication Instructions Recorded Confirmed potassium citrate 10 mEq (1,080 20 meq PO BID 12/21/17 07/10/22 mg) tablet,extended release amoxicillin 500 mg tablet 2,000 mg PO ONCE 11/16/18 07/10/22 cyanocobalamin (vitamin B-12) 1,000 mcg IM Q90D 05/03/20 07/10/22 1,000 mcg/mL injection solution docusate sodium 100 mg capsule 100 mg PO QAM PRN Constipation 05/03/20 07/10/22 rivaroxaban 15 mg tablet 15 mg PO HS 01/21/22 07/10/22 bumetanide 2 mg tablet 2 mg PO BID 07/10/22 07/10/22 cholecalciferol (vitamin D3) 50 50 mcg PO DAILY 07/10/22 07/10/22 mcg (2,000 unit) capsule (Vitamin D3) duloxetine 20 mg capsule,delayed 20 mg PO BID 07/10/22 07/10/22 release ferrous sulfate 325 mg (65 mg 325 mg PO BID 07/10/22 07/10/22 iron) tablet magnesium 250 mg tablet 250 mg PO DAILY 07/10/22 07/10/22 metolazone 5 mg tablet 5 mg PO DAILY PRN weight gain 07/10/22 07/10/22 multivitamin with iron 1 tab PO DAILY 07/10/22 07/10/22 Previous Rx's Medication Instructions Recorded allopurinol 100 mg tablet 100 mg PO QAM #90 tabs 04/22/22 cyclobenzaprine 5 mg tablet 5 mg PO BID PRN muscle 04/22/22 pain/stiffness #60 tabs eplerenone 25 mg tablet 25 mg PO QAM #90 tabs 04/22/22 metoprolol succinate 50 mg 50 mg PO BID #60 tabs 04/22/22 tablet,extended release 24 hr tramadol 50 mg tablet 50 mg PO BID PRN Pain #60 tabs 05/26/22 calcitriol 0.25 mcg capsule 0.5 mcg PO QAM #90 caps 07/01/22 Results & Data (ED) Vital Signs Vital Signs - 24 hr 07/10/22 17:08 07/10/22 17:44 07/10/22 18:01 Temperature 36.5 C Temperature Source Temporal Artery Scan Pulse Rate 126 H 123 H Pulse Rate [Right Brachial] Pulse Rhythm Regular Pulse Rhythm [Right Brachial] Pulse Strength Normal Pulse Strength [Right Brachial] Respiratory Rate 24 Respiratory Effort / Characteristics Non-Labored Spontaneous Respiratory Depth Normal Respiratory Pattern Regular Blood Pressure 116/87 Blood Pressure [Right Arm] Blood Pressure Mean 96 Blood Pressure Mean [Right Arm] Blood Pressure Position Sitting Blood Pressure Position [Right Arm] Pulse Oximetry 96 92 Oxygen Delivery Method Room Air Room Air Oxygen Flow Rate Sepsis Recent Fever Within 48 Hours No Sepsis New/Unexplained Change in Mental Status No Sepsis Action Taken by Nursing No Action Required 07/10/22 18:44 07/10/22 19:50 07/10/22 19:51 Temperature Temperature Source Pulse Rate 110 H 110 H 105 H Pulse Rate [Right Brachial] Pulse Rhythm Regular Regular Pulse Rhythm [Right Brachial] Pulse Strength Pulse Strength [Right Brachial] Respiratory Rate 22 20 Respiratory Effort / Characteristics Respiratory Depth Respiratory Pattern Blood Pressure 114/74 Blood Pressure [Right Arm] Blood Pressure Mean Blood Pressure Mean [Right Arm] Blood Pressure Position Blood Pressure Position [Right Arm] Pulse Oximetry 84 L 97 Oxygen Delivery Method Room Air Nasal Cannula Oxygen Flow Rate 2 Sepsis Recent Fever Within 48 Hours Sepsis New/Unexplained Change in Mental Status Sepsis Action Taken by Nursing 07/10/22 20:38 Temperature Temperature Source Pulse Rate Pulse Rate [Right Brachial] 113 H Pulse Rhythm Pulse Rhythm [Right Brachial] Regular Pulse Strength Pulse Strength [Right Brachial] Normal Respiratory Rate 19 Respiratory Effort / Characteristics Non-Labored Respiratory Depth Normal Respiratory Pattern Regular Blood Pressure Blood Pressure [Right Arm] 111/89 Blood Pressure Mean Blood Pressure Mean [Right Arm] 96 Blood Pressure Position Blood Pressure Position [Right Arm] Lying Pulse Oximetry 98 Oxygen Delivery Method Nasal Cannula Oxygen Flow Rate 2 Sepsis Recent Fever Within 48 Hours Sepsis New/Unexplained Change in Mental Status Sepsis Action Taken by Nursing Laboratory Data 07/10/22 17:33 07/10/22 17:33 Lab Results 07/10/22 07/10/22 07/10/22 Range/Units 17:33 17:33 17:33 WBC 10.13 (4.8-10.8) K/ul RBC 5.04 (4.70-6.10) M/uL Hgb 12.3 L (14.0-18.0) g/dl Hct 40.1 L (42.0-52.0) % MCV 79.6 L (80.0-100.0) fL MCH 24.4 L (25.0-34.0) pg MCHC 30.7 L (32.0-36.0) g/dL RDW Std Deviation 47.1 H (36.4-46.3) fL RDW Coeff of Sarah 16.9 H (11.5-14.5) % Plt Count 216 (130-400) K/uL MPV 10.2 (9.4-12.4) fL Immature Gran % (Auto) 0.6 % Neut % (Auto) 77.0 % Lymph % (Auto) 12.6 % Hinds % (Auto) 6.5 % Eos % (Auto) 2.3 % Baso % (Auto) 1.0 % Neut # (Auto) 7.80 H (1.40-6.50) K/uL Lymph # (Auto) 1.28 (1.2-3.4) K/uL Hinds # (Auto) 0.66 H (0.11-0.59) K/uL Eos # (Auto) 0.23 (0-0.50) K/uL Baso # (Auto) 0.10 (0-0.2) K/uL Immature Gran # (Auto) 0.06 (0.01-0.20) K/uL PT 12.1 H (9.0-12.0) Seconds INR 1.1 (0.9-1.1) APTT 29.3 (21.0-31.0) Seconds PTT Ratio 1.1 Sodium 142 (136-145) mmol/L Potassium 4.0 (3.5-5.1) mmol/L Chloride 103 (98-107) mmol/L Carbon Dioxide 29 (21-32) mmol/L Anion Gap 10 (3-11) BUN 37 H (6-23) mg/dl Creatinine 2.27 H (0.6-1.4) mg/dl Est Cr Clr Drug Dosing 32.6 ml/min Est GFR ( Amer) 30.4 ml/min Est GFR (Non-Af Amer) 26.3 ml/min BUN/Creatinine Ratio 16.3 (10-20) Glucose 104 H (70-99(Fasting)) mg/dl Calcium 9.7 (8.6-10.3) mg/dl Total Bilirubin 0.7 (0.2-1.0) mg/dl AST 24 (13-39) U/L ALT 11 (7-52) U/L Alkaline Phosphatase 99 (34-104) U/L Troponin I High Sens 19.0 (0-20) pg/ml B-Natriuretic Peptide (0-100) pg/ml Total Protein 6.9 (6.0-8.3) gm/dl Albumin 3.9 (3.4-5.0) gm/dl Globulin 3.0 (2.5-4.0) gm/dl Albumin/Globulin Ratio 1.3 (0.9-2) 07/10/22 Range/Units 17:33 WBC (4.8-10.8) K/ul RBC (4.70-6.10) M/uL Hgb (14.0-18.0) g/dl Hct (42.0-52.0) % MCV (80.0-100.0) fL MCH (25.0-34.0) pg MCHC (32.0-36.0) g/dL RDW Std Deviation (36.4-46.3) fL RDW Coeff of Sarah (11.5-14.5) % Plt Count (130-400) K/uL MPV (9.4-12.4) fL Immature Gran % (Auto) % Neut % (Auto) % Lymph % (Auto) % Hinds % (Auto) % Eos % (Auto) % Baso % (Auto) % Neut # (Auto) (1.40-6.50) K/uL Lymph # (Auto) (1.2-3.4) K/uL Hinds # (Auto) (0.11-0.59) K/uL Eos # (Auto) (0-0.50) K/uL Baso # (Auto) (0-0.2) K/uL Immature Gran # (Auto) (0.01-0.20) K/uL PT (9.0-12.0) Seconds INR (0.9-1.1) APTT (21.0-31.0) Seconds PTT Ratio Sodium (136-145) mmol/L Potassium (3.5-5.1) mmol/L Chloride (98-107) mmol/L Carbon Dioxide (21-32) mmol/L Anion Gap (3-11) BUN (6-23) mg/dl Creatinine (0.6-1.4) mg/dl Est Cr Clr Drug Dosing ml/min Est GFR ( Amer) ml/min Est GFR (Non-Af Amer) ml/min BUN/Creatinine Ratio (10-20) Glucose (70-99(Fasting)) mg/dl Calcium (8.6-10.3) mg/dl Total Bilirubin (0.2-1.0) mg/dl AST (13-39) U/L ALT (7-52) U/L Alkaline Phosphatase (34-104) U/L Troponin I High Sens (0-20) pg/ml B-Natriuretic Peptide 416 H (0-100) pg/ml Total Protein (6.0-8.3) gm/dl Albumin (3.4-5.0) gm/dl Globulin (2.5-4.0) gm/dl Albumin/Globulin Ratio (0.9-2) Administered Medications Discontinued Medications Furosemide (Furosemide 40 Mg/4 Ml Vial) 40 mg IV NOW STA Stop: 07/10/22 18:28 Last Admin: 07/10/22 18:44 Dose: 40 mg Documented By: TEVIN Metoprolol Tartrate (Metoprolol Tartrate 1 Mg/Ml Vial) 5 mg IV NOW STA Stop: 07/10/22 18:28 Last Admin: 07/10/22 18:44 Dose: 5 mg Documented By: GGG Imaging Data Radiologist's Impression: Chest X-Ray 07/10/22 17:27 XR chest 1V portable CLINICAL HISTORY: Chest pain, nonspecific COMPARISON STUDY: Chest CT December 21, 2017 and chest radiograph August 19, 2021. FINDINGS: There are median sternotomy wires and prosthetic aortic valve. Cardiomegaly is unchanged. No pneumothorax or pleural effusion is present. No consolidation to suggest pneumonia. There is pulmonary vascular congestion without overt pulmonary edema. IMPRESSION: Cardiomegaly. Pulmonary vascular congestion without overt pulmonary edema. ACT 112: Negative or not required by law. Electronically signed by: Eddy Bashir M.D. 07/10/2022 5:47 PM Discharge Plan Visit Data Chief Complaint: Shortness of Breath/Dyspnea Stated Complaint: TROUBLE BREATHING,SOB,PAIN ALL OVER ED Provider: Jerrell Tiwari Discharge Problem: Atrial fibrillation with rapid ventricular response, DEONNA (acute kidney injury) Forms Stand Alone Forms: [facility] Prescriptions Prescriptions: No Action eplerenone 25 mg tablet 25 mg PO QAM Qty: 90 3RF allopurinol 100 mg tablet 100 mg PO QAM Qty: 90 3RF cyclobenzaprine 5 mg tablet 5 mg PO BID PRN (Reason: muscle pain/stiffness) Qty: 60 3RF metoprolol succinate 50 mg tablet extended release 24 hr 50 mg PO BID Qty: 60 6RF tramadol 50 mg tablet 50 mg PO BID PRN (Reason: Pain) Qty: 60 0RF amoxicillin 500 mg tablet 2,000 mg PO ONCE Patient Comments: 2,000 mg PO 1 hour prior to dental procedure.; Rx Instructions: TAKE 4 CAPSULES BY MOUTH 1 HOUR PRIOR TO DENTAL WORK calcitriol 0.25 mcg capsule 0.5 mcg PO QAM Qty: 90 3RF potassium citrate 10 mEq (1,080 mg) Tablet Extended Release 20 meq PO BID cyanocobalamin (vitamin B-12) 1,000 mcg/mL Solution 1,000 mcg IM Q90D docusate sodium 100 mg Capsule 100 mg PO QAM PRN (Reason: Constipation) rivaroxaban 15 mg tablet 15 mg PO HS metolazone 5 mg tablet 5 mg PO DAILY PRN (Reason: weight gain) ferrous sulfate 325 mg (65 mg iron) Tablet 325 mg PO BID magnesium 250 mg Tablet 250 mg PO DAILY multivitamin with iron Tablet 1 tab PO DAILY duloxetine 20 mg capsule,delayed release(DR/EC) 20 mg PO BID cholecalciferol (vitamin D3) [Vitamin D3] 50 mcg (2,000 unit) Capsule 50 mcg PO DAILY bumetanide 2 mg tablet 2 mg PO BID Referrals Referrals: Zackery Cochran DO [Primary Care Provider] -
[2022-07-10 18:21] LABS: INR 1.1 (0.9-1.1); Partial Thromboplastin Ratio 1.1; Partial Thromboplastin Time 29.3 Seconds (21.0-31.0); Prothrombin Time 12.1 Seconds (9.0-12.0)
[2022-07-10] MEDS ORDERED: FUROSEMIDE 40 MG/4 ML VIAL IV STA (18:27)
[2022-07-10] MEDS ORDERED: METOPROLOL TARTRATE 1 MG/ML VIAL IV STA (18:27)
--- NOTE | 2022-07-10 20:47 | History & Physical Report ---
Date of Service July 10, 2022 Assessment & Plan (1) Dyspnea: Plan: Dyspnea, CHF vs Afib RVR Initially treated as CHF overload in ER, received IV Lasix x1. While BNP is slightly elevated CXR does not show over edema, lungs sound clear, and weight/legs appear baseline and he does not have orthopnea. He has noted that his heart rate has jumped from his normal 50 to 60s and has been in the 1 0s for the last 4 weeks and associated with fatigue and the shortness of breath. We will continue his home diuretics, suspect his symptoms are likely due from A- fib with RVR. IV metoprolol on-call, patient has had multiple adjustments with cardiology in the past who are consulted for additional assistance in management. Metoprolol continued, Worsened exertional dyspnea, 2 L oxygen requirement echo 2020 with EF of 60-65%, no reduced EF appreciated May use diltiazem for augmented rate control if needed. If ineffective or limited by blood pressure, would then start amiodarone gtt. Do not use digoxin due to CKD and history of nephrectomy Troponin normal on admission. No chest pain at any point CXR: Cardiomegaly, pulmonary vascular congestion BNP elevated EKG: No territorial ST segment elevation/depression or T wave inversions. QTc 484. A-fib Received Lasix 40 in ER Continue home diuretic regimen, clinically appears euvolemic on Atrial fibrillation As noted, suspect symptoms due to RVR. Continue DOAC, beta-trinity and CCB as noted CKD 3 Baseline creatinine around 2.0, more recently 2.3 Admitting creatinine 2.27, clinically appears euvolemic. Mildly increased BNP, did have pot pie last night. 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 - Following with C, pending an injection - Denies weakness/acute change - No acute management at this time DVT prophylaxis: Anticoagulated Diet: Low-salt, heart healthy Disposition: PCU, may need IV metoprolol CODE STATUS: Full code (2) Atrial fibrillation: (3) Chronic diastolic CHF (congestive heart failure): (4) Chronic kidney disease, stage III (moderate): (5) Obstructive sleep apnea: (6) Hypertension: (7) Hyperlipidemia: History of Present Illness Primary Care Provider: Zackery Cochran DO Kyler Antoine is an 83-year-old male with past medical history of diastolic CHF, longstanding dyspnea on exertion NYHA class II3, bioprosthetic AVR, paroxysmal A-fib, morbid obesity, chronic venous insufficiency, and CKD who presents for worsening shortness of breath and exertional dyspnea. Ed reports he has progressively worsening dyspnea and exercise intolerance. Reports he was trying to mow his lawn and had a hard time even gettign the mower set up due to worsening shortness of breath. Has gradually been worsening for the last month, family wanted him seen 2 weeks ago but was too busy to be seen. Could no longer function at home and came in to ER. No chest pain at any point. No chest pressure. No diaphoresis/sweats. No wheezing. Legs are swollen normally, feels that the swelling is about his normal lately. Does not feel he has had significant orthopnea, but notes he is easily winded when he gets up with activity. No inspiratory pain. Increased fatigue in the last week. No cough. Peeing normally. No pain. Weight fluctuates, thinks maybe up 4-5 pounds from normal. Metoprolol 100mg at night, no longer 50 BID. On xarelto no missed doses. Thinks his Heart rate has been 115-120s when he checks it at home. Normally in 50s prior to this month. Was cardioverted last fall, only lasted 1 month in sinus. Medical History: Reviewed Medications: Reviewed Surgical History: Reviewed Family history: Reviewed Allergies: Reviewed Social History: Reviewed. No tobacco use, no etoh use. Code Status: Full Code Allergies Allergy/AdvReac Type Severity Reaction Status Date / Time Iodinated Contrast Media Allergy Unknown Verified 07/01/22 08:55 [Iodinated Contrast- Oral and IV Dye] Home Medications Medication Instructions Recorded Confirmed Type potassium citrate 10 mEq (1,080 20 meq PO BID 12/21/17 07/10/22 History mg) tablet,extended release amoxicillin 500 mg tablet 2,000 mg PO ONCE 11/16/18 07/10/22 History cyanocobalamin (vitamin B-12) 1,000 mcg IM Q90D 05/03/20 07/10/22 History 1,000 mcg/mL injection solution docusate sodium 100 mg capsule 100 mg PO QAM PRN Constipation 05/03/20 07/10/22 History rivaroxaban 15 mg tablet 15 mg PO HS 01/21/22 07/10/22 History allopurinol 100 mg tablet 100 mg PO QAM #90 tabs 04/22/22 07/10/22 Rx cyclobenzaprine 5 mg tablet 5 mg PO BID PRN muscle 04/22/22 07/10/22 Rx pain/stiffness #60 tabs eplerenone 25 mg tablet 25 mg PO QAM #90 tabs 04/22/22 07/10/22 Rx metoprolol succinate 50 mg 50 mg PO BID #60 tabs 04/22/22 07/10/22 Rx tablet,extended release 24 hr tramadol 50 mg tablet 50 mg PO BID PRN Pain #60 tabs 05/26/22 07/10/22 Rx calcitriol 0.25 mcg capsule 0.5 mcg PO QAM #90 caps 07/01/22 07/10/22 Rx bumetanide 2 mg tablet 2 mg PO BID 07/10/22 07/10/22 History cholecalciferol (vitamin D3) 50 50 mcg PO DAILY 07/10/22 07/10/22 History mcg (2,000 unit) capsule (Vitamin D3) duloxetine 20 mg capsule,delayed 20 mg PO BID 07/10/22 07/10/22 History release ferrous sulfate 325 mg (65 mg 325 mg PO BID 07/10/22 07/10/22 History iron) tablet magnesium 250 mg tablet 250 mg PO DAILY 07/10/22 07/10/22 History metolazone 5 mg tablet 5 mg PO DAILY PRN weight gain 07/10/22 07/10/22 History multivitamin with iron 1 tab PO DAILY 07/10/22 07/10/22 History Past Med/Surg History Medical History Atrial fibrillation Chronic diastolic CHF (congestive heart failure) Chronic low back pain with right-sided sciatica CKD (chronic kidney disease), stage III History of anxiety History of aortic valve disease History of COVID-19 Hx of gout Hx of impacted cerumen Hx of osteoarthritis Hx of rotator cuff tear Hyperlipidemia Hypertension Kidney stones Morbid obesity Obstructive sleep apnea Prediabetes Renal cell adenocarcinoma Surgical History Aortic valve replaced History of cholecystectomy History of esophagogastroduodenoscopy (EGD) History of gastric bypass History of left nephrectomy History of spinal surgery History of total bilateral knee replacement Hx of cardiac catheterization Hx of colonoscopy Hx of cystoscopy Hx of tonsillectomy Family History Mother Breast cancer Lung disease Grandmother (Maternal) Breast cancer Aunt Breast cancer Sister Breast cancer Father Myocardial infarction Arthritis Denies family history of Ovarian cancer Prostate cancer Colorectal cancer Social History Smoking Status: Never smoker Second Hand Exposure: Yes (as a child-parents were chain smokers); Hx Alcohol Use: Yes Hx Substance Use: No Preferred Language: Trinidadian Communication Ability: Effective Visual Impairment: No Limitations Hearing Ability: Normal 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: No Beliefs That Will Affect Care: None marital status: Current Living Situation: Spouse and Family current occupational status: retired 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 NAD. Cooperative. HEENT: Atraumatic, normocephalic. Vision and hearing grossly intact. Pupils equal and reactive to Pulm: CTAB A&P. No rales/crackles/rhonchi are appreciated symmetrical chest rise. No increased work of breathing. No respiratory distress. Cardiac: IRR, rate fluctuating 1001 15. +sm Abdominal: Nontender, nondistended, soft. BS present. Extremities: Warm, dry. Moves all extremities equally Results & Data Results & Data Vital Signs (Past 12 Hours) Vital Signs Temp Pulse Resp BP Pulse Ox O2 Del Method O2 Flow Rate 07/10/22 19:51 105 H 20 97 Nasal Cannula 2 07/10/22 19:50 110 H 22 84 L Room Air 07/10/22 18:44 110 H 114/74 07/10/22 18:01 123 H 07/10/22 17:44 92 Room Air 07/10/22 17:08 36.5 C 126 H 24 116/87 96 Room Air PG Care Time/CCT Total # of Minutes Spent Total Time Spent with Patient: Total time spent is greater than 50% in coordination of care (as documented) at patient's floor/unit and/or counseling patient: Coding Level of Care Code 90908 INT INP/OBS CARE 3/75MIN Diagnoses Dyspnea R06.00 Atrial fibrillation I48.91 Chronic diastolic CHF (congestive heart failure) I50.32 Chronic kidney disease, stage III (moderate) N18.3 Obstructive sleep apnea G47.33 Hypertension I10 Hyperlipidemia E78.5
[2022-07-10] MEDS ORDERED: DOCUSATE SODIUM 100 MG CAP PO PRN (22:31)
[2022-07-10] MEDS ORDERED: CYCLOBENZAPRINE HCL 5 MG TAB PO PRN (22:31)
[2022-07-10] MEDS ORDERED: dilTIAZem HCl 5 MG/ML 5 ML VIAL IV PRN (22:31)
[2022-07-10] MEDS ORDERED: CYANOCOBALAMIN 1000 MCG/ML VIAL IM SCH (22:31)
[2022-07-10] MEDS: traMADol HCL 50 MG TABLET PO PRN (23:05)
[2022-07-10] MEDS: BUMETANIDE 1 MG TAB PO SCH (23:19)
[2022-07-10] MEDS: RIVAROXABAN 15 MG TAB PO SCH (23:20)
[2022-07-10] MEDS: POTASSIUM CITRATE 10 MEQ TAB PO SCH (23:20)
[2022-07-10] MEDS: DULoxetine HCL 20 MG CAP PO SCH (23:20)
[2022-07-10] MEDS: METOPROLOL SUCC 50MG EXT REL TAB PO SCH (23:21)
[2022-07-11] MEDS ORDERED: traMADol HCL 50 MG TABLET PO STA (02:15)
--- NOTE | 2022-07-11 08:46 | Hospitalist Progress Note ---
Date of Service July 11, 2022 Assessment & Plan (1) Dyspnea: Plan: Acute diastolic heart failure from afib RVR, h/o bioprosthetic AVR Rate controlled with Lyn robledo, chronic hypertension controlled Cardiology consulted typically sees Connor Izquierdo recommends persistent diuresis Troponin normal on admission. No chest pain at any point Received Lasix 40 in ER Continue home diuretic regimen will use IV for a bit Atrial fibrillation As noted, suspect symptoms due to RVR. 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 - Following with [facility] [place], pending an injection chronic tooth pain , pt reuests amoxil DVT prophylaxis: Anticoagulated Diet: Low-salt, heart healthy Disposition: PCU, may need IV metoprolol CODE STATUS: Full code (2) Atrial fibrillation: (3) Chronic diastolic CHF (congestive heart failure): (4) Obstructive sleep apnea: Admission and Anticipated Discharge Date Admission Date: July 10, 2022 Subjective pt feels improved after diurersis, mayhave have dietary indescression has tooth pain Physical Exam Physical Exam: tachypneic, decreased breath sounds at the bases cardiac is irregular, systolic murmur edema LE b/l Results & Data Results & Data Vital Signs (Past 12 Hours) Vital Signs Temp Pulse Pulse Resp BP Pulse Ox Pulse Ox 07/11/22 07:24 97.7 F 88 20 125/78 93 07/11/22 07:21 86 07/11/22 03:52 98.1 F 88 18 104/64 96 07/10/22 22:33 84 07/10/22 22:30 07/10/22 22:30 99.0 F 109 H 18 122/84 97 07/10/22 22:31 97 07/10/22 22:07 84 07/10/22 21:50 102 H 19 116/78 98 O2 Del Method O2 Del Method O2 Flow Rate 07/11/22 07:24 CPAP 07/11/22 07:21 07/11/22 03:52 CPAP 07/10/22 22:33 07/10/22 22:30 Nasal Cannula 2 07/10/22 22:30 Nasal Cannula 2 07/10/22 22:31 Room Air 07/10/22 22:07 07/10/22 21:50 Room Air PG Care Time/CCT Total # of Minutes Spent Total Time Spent with Patient: Total time spent is greater than 50% in coordination of care (as documented) at patient's floor/unit and/or counseling patient: Coding Level of Care Code 72923 SUB INP/OBS CARE 3/50MIN Diagnoses Dyspnea R06.00 Atrial fibrillation I48.91 Chronic diastolic CHF (congestive heart failure) I50.32 Obstructive sleep apnea G47.33
[2022-07-11 09:21] LABS: Basophils # (auto) 0.11 K/uL (0-0.2); Basophils % (auto) 1.2 %; Eosinophils # (auto) 0.25 K/uL (0-0.50); Eosinophils % (auto) 2.8 %; Hematocrit (blood only) 39.6 % (42.0-52.0); Hemoglobin 12.1 g/dl (14.0-18.0); Immature Granulocytes # (auto) 0.05 K/uL (0.01-0.20); Immature Granulocytes % (auto) 0.6 %; Lymphocytes # (auto) 1.37 K/uL (1.2-3.4); Lymphocytes % (auto) 15.4 %; Mean Corpuscular Hemoglobin 24.4 pg (25.0-34.0); Mean Corpuscular Hgb Conc 30.6 g/dL (32.0-36.0); Mean Platelet Volume 10.6 fL (9.4-12.4); Monocytes # (auto) 0.73 K/uL (0.11-0.59); Monocytes % (auto) 8.2 %; Neutrophils # (auto) 6.37 K/uL (1.40-6.50); Neutrophils % (auto) 71.8 %; Platelet Count 214 K/uL (130-400); Red Blood Count 4.95 M/uL (4.70-6.10); White Blood Count 8.88 K/ul (4.8-10.8)
[2022-07-11] MEDS: MULTIVITAMIN CHEWABLE TAB PO SCH (09:29)
[2022-07-11] MEDS: POTASSIUM CITRATE 10 MEQ TAB PO SCH ×2 (09:29→20:11)
[2022-07-11] MEDS: BUMETANIDE 1 MG TAB PO SCH ×2 (09:30→16:49)
[2022-07-11] MEDS: CALCITRIOL 0.25 MCG CAPSULE PO SCH (09:30)
[2022-07-11] MEDS: allopurinoL 100 MG TAB PO SCH (09:30)
[2022-07-11] MEDS: DULoxetine HCL 20 MG CAP PO SCH ×2 (09:30→20:13)
[2022-07-11 09:55] LABS: BUN Creatinine Ratio 16.7 (10-20); Calcium 9.4 mg/dl (8.6-10.3); Creatinine Clr Calc Pharmacy 34.2 ml/min; Est GFR (African American) 32.3 ml/min; Est GFR (Non-African American) 27.9 ml/min; Potassium 3.7 mmol/L (3.5-5.1)
[2022-07-11] MEDS: traMADol HCL 50 MG TABLET PO PRN (11:07)
--- NOTE | 2022-07-11 15:49 | Cardiology Consultation ---
Date of Consultation July 11, 2022 Assessment & Plan (1) Dyspnea: Plan 2. Chronic diastolic heart failure 3. Bioprosthetic AVR Mildly elevated transvalvular gradients(PG 42, MG 23) on last echo 06/2020 4. Paroxysmal atrial fibrillation persistent. DCCV 12/2021. No change in symptoms. On anticoagulation 5. Morbid obesity--Status post gastric bypass 6. Chronic venous insufficiency --right GSV RFA 2017 7. CKD-- history of nephrectomy, baseline serum creatinine around 2, follows with Dr. Curry Seen today in the setting of exertional dyspnea for the last 2 weeks. From a cardiac standpoint not too far off recent baseline. May have some component of acute on chronic diastolic heart failure but congestion on exam/imaging today modest. Remains in persistent atrial fibrillation which has been in for months. Ventricular response increased from recent baseline but wallace pect may be more secondary to symptoms then the cause of current issues. Recommend targeting gentle diuresis, -500 to 1 L/day. Currently on home twice daily Bumex. Can resume home eplerenone. If urine output limited can try metolazone 5 mg tomorrow. Current rate control adequate on home Toprol-XL, on appropriately dosed anticoagulation. Long-term previously we tried to get SGLT2 but was not an option financially. We will follow History of Present Illness Attending Physician: Adriel Blackwell MD History of Present Illness Mr. Antoine is a very pleasant 81-year-old man with history of bioprosthetic aortic valve replacement for aortic stenosis (question bicuspid aortic valve), paroxysmal atrial fibrillation, and chronic diastolic heart failure seen today as an inpatient in the setting of worsening shortness of breath. Patient last seen 02/2022. At that time stable, was purposely losing weight and reported some improvement in dyspnea. Remained in asymptomatic persistent atrial fibrillation. Today states that over the last 2 weeks has noted worsening shortness of breath. States that previously was able to walk 50 to 100 feet on level ground, but now short of breath walking a few steps. Denies any associated chest pain. No palpitations. No presyncope. Weight stable. Reports appropriate response to unchanged diuretics. Does report mild increased lower extremity edema. No URI symptoms. Of note did notice that his home heart rate increased from 60s to 80s up to the 120s. Feels that he has been in AF unchanged for the last several months. On admission noted to be in AF with RVR in the 110s. Chest x-ray with minimal congestion. Given IV metoprolol, 1 dose of Lasix and restarted on home diuretics. Today reports feeling slightly better than on arrival. AF with heart rates in the 90s to 100s. -500 since admission. Past medical/recent cardiac history: Other medical issues include hypertension, morbid obesity status post prior gastric bypass (2004), chronic kidney disease following left nephrectomy in the setting of renal carcinoma, chronic venous insufficiency post right GSV RFA 01/2018. In May 2020 endorsed increased exertional dyspnea. Underwent repeat echocardiogram which showed preserved LV function, normally functioning bioprosthetic AVR. Lexiscan SPECT 06/2020 was negative for ischemia. Seen again 11/2020 for limiting dyspnea at around 50 ft. Underwent left and right heart catheterization 11/2020 which showed essentially normal coronaries, normal left and right-sided filling pressures and mild pulmonary hypertension (45/18/29). Symptoms thought in part secondary to deconditioning and further pulmonary work-up recommended. PFTs 05/2021 showed normal spirometry, mild restriction with normal DLCO. Had ED visit 07/2021 due to increase shortness of breath, treated for acute heart failure and responded to IV Lasix with 10 pound weight loss. At that time was in atrial fibrillation. 3-day Holter monitor 08/2021 showed persistent atrial fibrillation with heart rates from 58-187, primarily 70s to 110s. Was seen by PCP 11/2021 again endorsing a dyspnea and fatigue. Jardiance prescribed but not covered by his insurance. Presented to ER 01/02/22 with increased shortness and chest x-ray showed increase d pulmonary edema, BNP elevated at 395. Given IV Lasix for acute heart failure. 01/14/22 again seen with progressive shortness of breath, fatigue. Remained in atrial fibrillation with borderline RVR. Initiated on amiodarone 200 mg BID and underwent successful elective electrical cardioversion on 01/23/22. Returned 02/12 and noted to be back in rate controlled AF. Amiodarone discontinued. Dy spnea although improved with weight loss of 10 pounds. Allergies Allergy/AdvReac Type Severity Reaction Status Date / Time Iodinated Contrast Media Allergy Unknown Verified 07/01/22 08:55 [Iodinated Contrast- Oral and IV Dye] Home Medications Medication Instructions Recorded Confirmed Type potassium citrate 10 mEq (1,080 20 meq PO BID 12/21/17 07/10/22 History mg) tablet,extended release amoxicillin 500 mg tablet 2,000 mg PO ONCE 11/16/18 07/10/22 History cyanocobalamin (vitamin B-12) 1,000 mcg IM Q90D 05/03/20 07/10/22 History 1,000 mcg/mL injection solution docusate sodium 100 mg capsule 100 mg PO QAM PRN Constipation 05/03/20 07/10/22 History rivaroxaban 15 mg tablet 15 mg PO HS 01/21/22 07/10/22 History allopurinol 100 mg tablet 100 mg PO QAM #90 tabs 04/22/22 07/10/22 Rx cyclobenzaprine 5 mg tablet 5 mg PO BID PRN muscle 04/22/22 07/10/22 Rx pain/stiffness #60 tabs eplerenone 25 mg tablet 25 mg PO QAM #90 tabs 04/22/22 07/10/22 Rx metoprolol succinate 50 mg 50 mg PO BID #60 tabs 04/22/22 07/10/22 Rx tablet,extended release 24 hr tramadol 50 mg tablet 50 mg PO BID PRN Pain #60 tabs 05/26/22 07/10/22 Rx calcitriol 0.25 mcg capsule 0.5 mcg PO QAM #90 caps 07/01/22 07/10/22 Rx bumetanide 2 mg tablet 2 mg PO BID 07/10/22 07/10/22 History cholecalciferol (vitamin D3) 50 50 mcg PO DAILY 07/10/22 07/10/22 History mcg (2,000 unit) capsule (Vitamin D3) duloxetine 20 mg capsule,delayed 20 mg PO BID 07/10/22 07/10/22 History release ferrous sulfate 325 mg (65 mg 325 mg PO BID 07/10/22 07/10/22 History iron) tablet magnesium 250 mg tablet 250 mg PO DAILY 07/10/22 07/10/22 History metolazone 5 mg tablet 5 mg PO DAILY PRN weight gain 07/10/22 07/10/22 History multivitamin with iron 1 tab PO DAILY 07/10/22 07/10/22 History Patient History Medical History Atrial fibrillation Chronic diastolic CHF (congestive heart failure) Chronic low back pain with right-sided sciatica CKD (chronic kidney disease), stage III History of anxiety History of aortic valve disease History of COVID-19 Hx of gout Hx of impacted cerumen Hx of osteoarthritis Hx of rotator cuff tear Hyperlipidemia Hypertension Kidney stones Morbid obesity Obstructive sleep apnea Prediabetes Renal cell adenocarcinoma Surgical History Aortic valve replaced History of cholecystectomy History of esophagogastroduodenoscopy (EGD) History of gastric bypass History of left nephrectomy History of spinal surgery History of total bilateral knee replacement Hx of cardiac catheterization Hx of colonoscopy Hx of cystoscopy Hx of tonsillectomy Family History Mother Breast cancer Lung disease Grandmother (Maternal) Breast cancer Aunt Breast cancer Sister Breast cancer Father Myocardial infarction Arthritis Denies family history of Ovarian cancer Prostate cancer Colorectal cancer Social History Smoking Status: Never smoker Second Hand Exposure: Yes (as a child-parents were chain smokers); Hx Alcohol Use: No Hx Substance Use: No Preferred Language: Sammarinese Communication Ability: Effective Visual Impairment: No Limitations Hearing Ability: Normal Credit Checker Required: No Beliefs That Will Affect Care: None marital status: Current Living Situation: Spouse Current Living Situation Comment: with current occupational status: retired 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[employer] Other Information That Helps Us Care for You: No Feels Safe at Home: Yes Safety Concerns: Feels Safe At This Time Childhood Exposure to Second-Hand Smoke: Yes Dental Care, Regularly: Yes Physical Activity Frequency: Does not Exercise Physical Activity Frequency Comment: Physical activity limited due to medical conditions Seatbelt Use: always Sunscreen Use: No Assistive Devices: BiPap and Cane Review of Systems Review of Systems: All systems reviewed & are unremarkable except as noted in HPI & below Physical Exam Physical Exam: General: Comfortable HEENT: Sclerae anicteric, nasal CPAP in place Lungs: Clear to auscultation bilaterally, no crackles or wheezes Cardiac: Irregularly irregular, crisp bioprosthetic closure, 2 out of 6 Systolic ejection murmur. Vascular: 2+ radial, unable to assess JVD Abdomen: Soft, nontender, obese Extremities: Well perfused, Trace bilateral edema Neuro: Nonfocal Psych: Alert orient x3, normal affect and mood Results & Data Vital Signs (Past 12 Hours) Vital Signs Temp Pulse Pulse Resp BP Pulse Ox O2 Del Method 07/11/22 15:15 97.3 F L 96 H 18 115/79 Room Air 07/11/22 11:29 97.5 F L 99 H 18 119/83 94 Room Air 07/11/22 08:00 Room Air 07/11/22 07:24 97.7 F 88 20 125/78 93 CPAP 07/11/22 07:21 86 07/11/22 03:52 98.1 F 88 18 104/64 96 CPAP PG Care Time/CCT Total # of Minutes Spent Total Time Spent with Patient: Total time spent is greater than 50% in coordination of care (as documented) at patient's floor/unit and/or counseling patient: Coding Level of Care Code 98129 OFFICE CONSULT LVL M Diagnoses Dyspnea R06.00
[2022-07-11] MEDS: RIVAROXABAN 15 MG TAB PO SCH (16:49)
[2022-07-11] MEDS ORDERED: AMOXICILLIN 500 MG CAP PO STA (17:55)
[2022-07-11] MEDS: AMOXICILLIN 500 MG CAP PO SCH (20:12)
[2022-07-11] MEDS: METOPROLOL SUCC 50MG EXT REL TAB PO SCH (20:14)
--- NOTE | 2022-07-12 00:30 | XCELERA ---
[id number] [id number]
--- NOTE | 2022-07-12 05:20 | Electrocardiogram Report ---
Test Reason : Blood Pressure : / mmHG Vent. Rate : 115 BPM Atrial Rate : 115 BPM P-R Int : 000 ms QRS Dur : 088 ms QT Int : 350 ms P-R-T Axes : 000 059 019 degrees QTc Int : 484 ms Atrial fibrillation with rapid ventricular response with premature ventricular or aberrantly conducte d complexes Nonspecific ST and T wave abnormality Abnormal ECG When compared with ECG of 23-JAN-2022 08:08, Atrial fibrillation has replaced Sinus rhythm Vent. rate has increased BY 41 BPM Confirmed by Mckay Elliott ([id number]) on 07/12/2022 5:20:23 AM Referred By: REFERRED SELF Confirmed By:Mckay Elliott
[2022-07-12] MEDS: MULTIVITAMIN CHEWABLE TAB PO SCH (08:55)
[2022-07-12] MEDS: POTASSIUM CITRATE 10 MEQ TAB PO SCH (08:56)
[2022-07-12] MEDS: CALCITRIOL 0.25 MCG CAPSULE PO SCH (08:57)
[2022-07-12] MEDS: allopurinoL 100 MG TAB PO SCH (08:57)
[2022-07-12] MEDS: DULoxetine HCL 20 MG CAP PO SCH (08:57)
[2022-07-12] MEDS: AMOXICILLIN 500 MG CAP PO SCH ×2 (08:57→14:13)
[2022-07-12] MEDS ORDERED: BUMETANIDE 2 MG in SYRINGE 0 ML IV SCH (09:00)
[2022-07-12] MEDS: traMADol HCL 50 MG TABLET PO PRN (09:01)
[2022-07-12 11:04] LABS: BUN Creatinine Ratio 17.9 (10-20); Calcium 9.4 mg/dl (8.6-10.3); Creatinine Clr Calc Pharmacy 33.5 ml/min; Est GFR (Non-African American) 27.6 ml/min; Magnesium 1.7 mg/dl (1.7-2.4); Potassium 3.8 mmol/L (3.5-5.1)
--- NOTE | 2022-07-12 17:27 | Discharge Summary ---
Date of Service July 12, 2022 Admission HPI Per Admitting Provider Kyler Antoine is an 83-year-old male with past medical history of diastolic CHF, longstanding dyspnea on exertion NYHA class II3, bioprosthetic AVR, paroxysmal A-fib, morbid obesity, chronic venous insufficiency, and CKD who presents for worsening shortness of breath and exertional dyspnea. Ed reports he has progressively worsening dyspnea and exercise intolerance. Reports he was trying to mow his lawn and had a hard time even gettign the mower set up due to worsening shortness of breath. Has gradually been worsening for the last month, family wanted him seen 2 weeks ago but was too busy to be seen. Could no longer function at home and came in to ER. No chest pain at any point. No chest pressure. No diaphoresis/sweats. No wheezing. Legs are swollen normally, feels that the swelling is about his normal lately. Does not feel he has had significant orthopnea, but notes he is easily winded when he gets up with activity. No inspiratory pain. Increased fatigue in the last week. No cough. Peeing normally. No pain. Weight fluctuates, thinks maybe up 4-5 pounds from normal. Metoprolol 100mg at night, no longer 50 BID. On xarelto no missed doses. Thinks his Heart rate has been 115-120s when he checks it at home. Normally in 50s prior to this month. Was cardioverted last fall, only lasted 1 month in sinus. Medical History: Reviewed Medications: Reviewed Surgical History: Reviewed Family history: Reviewed Allergies: Reviewed Social History: Reviewed. No tobacco use, no etoh use. Code Status: Full Code Principal Diagnosis Acute diastolic heart failure Atrial fibrillation Discharge Exam Patient is lying flat on his BiPAP device. His cardiac exam is irregular but rate controlled his lungs were clear without wheezes or crackles his extremities with 1+ edema which he says is chronic for him Discharge Data Allergies Allergy/AdvReac Type Severity Reaction Status Date / Time Iodinated Contrast Media Allergy Unknown Verified 07/01/22 08:55 [Iodinated Contrast- Oral and IV Dye] Consultations 07/10/22 18:44 ED Decision to Admit Stat 07/11/22 09:00 Consult Cardiology Routine Hospital Course (1) Dyspnea: Acute diastolic heart failure from afib RVR, h/o bioprosthetic AVR Rate controlled with B B locker, chronic hypertension controlled Cardiology consulted typically sees Connor Izquierdo recommends continuing home diuretic therapy of Bumex and iloperidone Troponin normal on admission. No chest pain at any point Atrial fibrillation As noted, suspect symptoms due to RVR. 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 - Following with [facility] [place], pending an injection chronic tooth pain , pt reuests amoxil recommended follow-up with dentist has an appointment on the (2) Atrial fibrillation: (3) Chronic diastolic CHF (congestive heart failure): (4) Obstructive sleep apnea: Total Time Total Time Spent Total Time Spent (In Minutes): It required greater than 30 minutes to prepare this patient for discharge Discharge Plan Discharge Items Patient Disposition: Home - Self-Care Reason For Visit: DYSPNEA Discharge Diagnosis: acute diastolic heart failure atrial fibrillation chronic kidney disease Activity: Per Instructions section Non-emergency contact: Primary Care Provider Call non-emergency contact if: your symptoms worsen Follow-up/Referrals: Zackery Cochran, [Primary Care Provider] - 07/16/22 1:00 pm (Follow up Scheduled on 07/16/2022 at 1 pm.) Diet: Low Sodium (2gm) Addtl Attending Provider Instructions: Call 911 and go to the Emergency Room if: * You have tightness or pain in your chest that does not go away with rest or Nitroglycerin * You are very short of breath even with rest Call your doctor if any of the following symptoms or problems start or get worse: * Shortness of breath or difficulty breathing * Wake up at night short of breath * Chest pain * Cough * Swelling of your hands, fee, or legs * More fatigued or tired with your normal activity * Palpitations - sudden fast heart beats WEIGHT * Weigh yourself every morning after using the bathroom. * Use the same scale. * Wear the same amount of clothing. * Write your weight down on your chart. * Call your doctor if you gain more than 2-3 pounds in 1-2 days. MEDICATIONS * Use this discharge instruction sheet for instructions. * Take your medications at the time your doctor ordered. * Do not skip a dose of your medicines. * If you miss a dose of medicine, take as soon as possible, but DO NOT DOUBLE A DOSE. * Read your medicine information when you get home. * Know all of the side effects of your medicine. * Call your doctor's office if you have any side effects. * Be sure all of your doctors know what medicine and herbs you take (including cold, flu, and herbal medicine). * Pain Medicine: If you do not get relief from your pain, please call your doctor for help. Take the following with you to your follow-up doctor appointments: * Weight Chart * Medication List * List of questions Do not drink excessive alcohol, beer or wine. Pending Studies at Discharge: No Stand-Alone Forms: My [facility] [employer], Smoking Cessation Medications and DC Order Prescriptions: New amoxicillin 500 mg Capsule 500 mg PO TID Qty: 30 0RF Continued eplerenone 25 mg tablet 25 mg PO QAM Qty: 90 3RF allopurinol 100 mg tablet 100 mg PO QAM Qty: 90 3RF cyclobenzaprine 5 mg tablet 5 mg PO BID PRN (Reason: muscle pain/stiffness) Qty: 60 3RF tramadol 50 mg tablet 50 mg PO BID PRN (Reason: Pain) Qty: 60 0RF amoxicillin 500 mg tablet 2,000 mg PO ONCE Patient Comments: 2,000 mg PO 1 hour prior to dental procedure.; Rx Instructions: TAKE 4 CAPSULES BY MOUTH 1 HOUR PRIOR TO DENTAL WORK calcitriol 0.25 mcg capsule 0.5 mcg PO QAM Qty: 90 3RF potassium citrate 10 mEq (1,080 mg) Tablet Extended Release 20 meq PO BID cyanocobalamin (vitamin B-12) 1,000 mcg/mL Solution 1,000 mcg IM Q90D docusate sodium 100 mg Capsule 100 mg PO QAM PRN (Reason: Constipation) rivaroxaban 15 mg tablet 15 mg PO HS ferrous sulfate 325 mg (65 mg iron) Tablet 325 mg PO BID magnesium 250 mg Tablet 250 mg PO DAILY multivitamin with iron Tablet 1 tab PO DAILY duloxetine 20 mg capsule,delayed release(DR/EC) 20 mg PO BID cholecalciferol (vitamin D3) [Vitamin D3] 50 mcg (2,000 unit) Capsule 50 mcg PO DAILY bumetanide 2 mg tablet 2 mg PO BID Changed metoprolol succinate 50 mg tablet extended release 24 hr 100 mg PO HS Qty: 60 6RF Discontinued metolazone 5 mg tablet 5 mg PO DAILY PRN (Reason: weight gain) Discharge Orders: Discharge Order (Routine); Ordered 07/12/22 Ordered By: Adriel Blackwell Discharge Order- CHF (Routine); Ordered 07/12/22 Ordered By: Adriel Blackwell Admission Data Admit Date/Time: 07/10/22 20:59 Attending Provider: Adriel Blackwell Admit Provider: Primitivo Pollard Primary Care Provider: Zackery Cochran Other Providers: Lloyd Izquierdo ; Primitivo Pollard ; Mckay Elliott Other Interventions: Discharge Summary Assessment (RN) Last Done: 07/12/22 12:53 Coding Level of Care Code 36842 INP/OBS DISCH >30 MIN Diagnoses Dyspnea R06.00 Atrial fibrillation I48.91 Chronic diastolic CHF (congestive heart failure) I50.32 Obstructive sleep apnea G47.33
== END 2022-07-12 14:51 | disposition home or self-care (01) | DRG 309 ==
LOC: ED 17:07 → SUATTDRO 20:59 → 2S 20:59

== ENCOUNTER 2022-08-11 08:06 | Inpatient (IN) ==
[2022-08-11 08:55] LABS: Basophils # (auto) 0.08 K/uL (0-0.2); Basophils % (auto) 0.4 %; Eosinophils # (auto) 0.11 K/uL (0-0.50); Eosinophils % (auto) 0.6 %; Hematocrit (blood only) 45.4 % (42.0-52.0); Hemoglobin 13.8 g/dl (14.0-18.0); Immature Granulocytes # (auto) 0.17 K/uL (0.01-0.20); Immature Granulocytes % (auto) 0.9 %; Lymphocytes # (auto) 1.31 K/uL (1.2-3.4); Lymphocytes % (auto) 7.3 %; Mean Corpuscular Hemoglobin 24.5 pg (25.0-34.0); Mean Corpuscular Hgb Conc 30.4 g/dL (32.0-36.0); Mean Corpuscular Volume 80.5 fL (80.0-100.0); Mean Platelet Volume 9.8 fL (9.4-12.4); Monocytes # (auto) 1.08 K/uL (0.11-0.59); Neutrophils % (auto) 84.8 %; Platelet Count 191 K/uL (130-400); RDW Coefficient of Variation 18.9 % (11.5-14.5); RDW Standard Deviation 51.6 fL (36.4-46.3); Red Blood Count 5.64 M/uL (4.70-6.10); White Blood Count 18.05 K/ul (4.8-10.8)
--- NOTE | 2022-08-11 09:05 | Emergency Department Note ---
Impression & Plan CHF (congestive heart failure), Atrial fibrillation, Chronic kidney disease, stage III (moderate), Arm pain, left ED Provider Note NAME: MYESHA TRAN JR AGE: 82 SEX: M ARRIVES VIA: Walk-In INFORMANT: Patient ED PROVIDER(S): Wilson Cummings MD CHIEF COMPLAINT: SOB, left arm cramping PLAN: Disposition: Admit MEDICAL DECISION MAKING: The patient is a pleasant 82-year-old gentleman with a past medical history of atrial fibrillation on Xarelto, CHF, CKD, hypertension, FIFI, hyperlipidemia who presents to the emergency department via walk-in, accompanied by his for evaluation of pain/cramping in his left arm, neck and pain with ongoing shortness of breath over the past several days worse from his baseline. The patient reports he took 4 potassium tablets as well as magnesium and iron as he has had these types of symptoms before related to low potassium and magnesium. He reports his shortness of breath has been slightly worse than baseline in the setting of CHF. He feels he might be retaining more fluid but denies any increased weight gain. He is unsure if he has had any increased sodium in his diet over the weekend. He reports he did not feel improvement initially after taking the potassium tablets and magnesium tablet but denies pain at this moment. He denies cough, fevers, GI or symptoms. On arrival the patient is mildly dyspneic but in no acute distress, afebrile with HR initially 110s in afib and otherwise stable vital signs. Initially mid 90s on RA. He has 2+ bilateral lower extremity pitting edema which patient he reports is baseline and not better/not worse. Dry mucous membranes. Diminished BS of bilateral lower lung kuhn and otherwise clear. EKG demonstrates atrial fibrillation without overt acute ischemia. Chest x-ray demonstrates cardiomegaly with vascular congestion and suspected trace pleural effusions. WBC 18K with neutrophil predominance, nonspecific. H/H similar to prior. Platelets within normal limits. Chemistry without metabolic acidosis. Creatinine 2.6 on upper limit of prior range of values. Potassium initially 5.5 in setting of the patient taking supplementation prior to coming to the e mergency department. LFTs without significant abnormality. High-sensitivity troponin 25.9, nonspecific and with BNP 800 consistent with the patient's CHF and in the setting of the patient CKD. Lipase is not elevated. Procalcitonin is undetectable. UA without convincing evidence of infection. COVID-19 RNA, ADAMS test was negative. Upon evaluation it had been noted that the patient did desaturate to the low 80s when sleeping and so was placed on nasal cannula. Given the patient's symptoms which she reports are worsening over the past several days he does agree with and prefer plan for admission for further management. Records patient's dry rate was considered to be 117 and so weight is up >5kg. Treatment was initiated with IV Bumex. Case was discussed with Surinder Rodney [facility] and Dr. Osborn [facility] hospitalist, who will evaluate the patient for admission. Triage Nursing notes reviewed and agree them. Prior/outside medical records reviewed Vital Signs: reviewed Differential diagnosis: Reactive airway disease, pneumonia, pneumothorax, COPD, CHF, infections, cardiac ischemia, pulmonary embolism, musculoskeletal, gastrointestinal, as well as other pathologies. ER treatment provided: See below. Diagnostics interpreted by me: ECG: Atrial fibrillation with RVR, 104 bpm, no ectopy, no overt ST elevation or depression, QTc 415, QRS 86 Cardiac Monitoring: An order for continuous cardiac monitoring was placed and demonstrated atrial fibrillation with RVR, 104 bpm, no ectopy. Laboratory studies: See below Imaging studies: See below Consultation(s): Surinder Rodney [facility] and Dr. Osborn [facility] hospitalist HPI: The patient is a pleasant 82-year-old gentleman with a past medical history of atrial fibrillation on Xarelto, CHF, CKD, hypertension, FIFI, hyperlipidemia who presents to the emergency department via walk-in, accompanied by his for evaluation of pain/cramping in his left arm, neck and pain with ongoing shortness of breath over the past several days worse from his baseline. The patient reports he took 4 potassium tablets as well as magnesium and iron as he has had these types of symptoms before related to low potassium and magnesium. He reports his shortness of breath has been slightly worse than baseline in the setting of CHF. He feels he might be retaining more fluid but denies any increased weight gain. He is unsure if he has had any increased sodium in his diet over the weekend. He reports he did not feel improvement initially after taking the potassium tablets and magnesium tablet but denies pain at this moment. He denies cough, fevers, GI or symptoms. ROS: See above HPI for pertinent positives & negatives. A total of 10 systems reviewed and were otherwise negative. VITALS:See Below PHYSICAL EXAMINATION: GENERAL: Awake, alert, fatigued-appearing, mildly dyspneic but in no distress HENT: Normocephalic, atraumatic. Oropharynx with dry mucous membranes and otherwise unremarkable. EYES: Normal conjunctiva. Sclera non-icteric. NECK: Supple. No nuchal rigidity. FROM. No JVD. RESPIRATORY: Diminished BS of bilateral lower lung kuhn and otherwise clear. CARDIAC: Tachycardic rate, irregular rhythm. Extremities warm and well perfused. Pulses equal. ABDOMEN: Soft, non-distended. No tenderness to palpation. No rebound or guarding. No masses. RECTAL: Deferred. MUSCULOSKELETAL: Chest examination reveals no tenderness. The back is symmetrical on inspection without obvious abnormality. There is no CVA tenderness to palpation. No joint edema. LOWER EXTREMITIES: Calves are equal size bilaterally and non-tender. 2+ BLE pitting edema. No discoloration. NEURO: Normal sensorium. No sensory or motor deficits noted. SKIN: No rash or jaundice noted. Wilson Cummings MD Past Med/Surg History Medical History Atrial fibrillation Paroxysmal Follows with [facility] Chronic diastolic CHF (congestive heart failure) Chronic low back pain with right-sided sciatica CKD (chronic kidney disease), stage III History of anxiety History of aortic valve disease s/p AVR (2006) History of COVID-19 01/2021 > "mild" cold symptoms, resolved Hx of gout Hx of impacted cerumen Hx of osteoarthritis Hx of rotator cuff tear Difficulty with raising arms without extreme pain, currently in PT Hyperlipidemia Hypertension Kidney stones Hx x7 Morbid obesity Obstructive sleep apnea BIPAP Prediabetes Renal cell adenocarcinoma s/p nephrectomy Surgical History Aortic valve replaced bioprosthesis, 2006 History of cholecystectomy History of esophagogastroduodenoscopy (EGD) History of gastric bypass History of left nephrectomy History of spinal surgery History of total bilateral knee replacement Hx of cardiac catheterization 11/2020 > no stents Hx of colonoscopy Hx of cystoscopy w/stone basketing Hx of tonsillectomy Family History Mother Breast cancer Lung disease Grandmother (Maternal) Breast cancer Aunt Breast cancer Sister Breast cancer Father Myocardial infarction Arthritis Denies family history of Ovarian cancer Prostate cancer Colorectal cancer Social History Smoking Status: Never smoker Second Hand Exposure: Yes (as a child-parents were chain smokers); Do You Dip or Chew Tobacco: No; Hx Alcohol Use: No Hx Substance Use: No Preferred Language: Malay Communication Ability: Effective Visual Impairment: No Limitations Hearing Ability: Normal 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 Beliefs That Will Affect Care: None marital status: Current Living Situation: Spouse and Family Current Living Situation Comment: with current occupational status: retired 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[employer] Other Information That Helps Us Care for You: No Feels Safe at Home: Yes Safety Concerns: Feels Safe At This Time Childhood Exposure to Second-Hand Smoke: Yes Dental Care, Regularly: Yes Physical Activity Frequency: Does not Exercise Physical Activity Frequency Comment: Physical activity limited due to medical conditions Seatbelt Use: always Sunscreen Use: No Assistive Devices: BiPap, Cane and Glasses Allergies Allergies Allergy/AdvReac Type Severity Reaction Status Date / Time Iodinated Contrast Media Allergy Unknown Verified 07/16/22 12:51 [Iodinated Contrast- Oral and IV Dye] Home Meds Home Medications Medication Instructions Recorded Confirmed potassium citrate 10 mEq (1,080 20 meq PO BID 12/21/17 08/11/22 mg) tablet,extended release amoxicillin 500 mg tablet 2,000 mg PO ONCE 11/16/18 08/11/22 cyanocobalamin (vitamin B-12) 1,000 mcg IM Q90D 05/03/20 08/11/22 1,000 mcg/mL injection solution docusate sodium 100 mg capsule 100 mg PO QAM PRN Constipation 05/03/20 08/11/22 rivaroxaban 15 mg tablet 15 mg PO HS 01/21/22 08/11/22 bumetanide 2 mg tablet 2 mg PO BID 07/10/22 08/11/22 cholecalciferol (vitamin D3) 50 50 mcg PO DAILY 07/10/22 08/11/22 mcg (2,000 unit) capsule (Vitamin D3) ferrous sulfate 325 mg (65 mg 325 mg PO BID 07/10/22 08/11/22 iron) tablet magnesium 250 mg tablet 250 mg PO DAILY 07/10/22 08/11/22 multivitamin with iron 1 tab PO DAILY 07/10/22 08/11/22 metolazone 5 mg tablet See Rx Instructions .Route .COMPLEX 08/11/22 08/11/22 Previous Rx's Medication Instructions Recorded allopurinol 100 mg tablet 100 mg PO QAM #90 tabs 04/22/22 cyclobenzaprine 5 mg tablet 5 mg PO BID PRN muscle 04/22/22 pain/stiffness #60 tabs eplerenone 25 mg tablet 25 mg PO QAM #90 tabs 04/22/22 calcitriol 0.25 mcg capsule 0.5 mcg PO QAM #90 caps 07/01/22 metoprolol succinate 50 mg 100 mg PO HS #60 tabs 07/12/22 tablet,extended release 24 hr tramadol 50 mg tablet 50 mg PO BID PRN Pain #60 tabs 07/16/22 Results & Data (ED) Vital Signs Vital Signs - 24 hr 08/11/22 08:12 08/11/22 08:26 08/11/22 08:22 Temperature 36.5 C Temperature Source Temporal Artery Scan Pulse Rate 117 H Pulse Rate [Apical] Pulse Rate from SpO2 Sensor Pulse Rhythm Regular Respiratory Rate 20 Respiratory Effort / Characteristics Non-Labored Spontaneous Non-Labored Spontaneous Respiratory Depth Normal Normal Respiratory Pattern Regular Blood Pressure 112/76 Blood Pressure [Right Arm] Blood Pressure Mean 88 Blood Pressure Mean [Right Arm] Pulse Oximetry 97 96 Oxygen Delivery Method Room Air Room Air Room Air Oxygen Flow Rate Sepsis Recent Fever Within 48 Hours No Sepsis New/Unexplained Change in Mental Status No Sepsis Action Taken by Nursing No Action Required 08/11/22 08:22 08/11/22 08:48 08/11/22 09:02 Temperature Temperature Source Pulse Rate 96 H Pulse Rate [Apical] 93 H Pulse Rate from SpO2 Sensor Pulse Rhythm Respiratory Rate 20 Respiratory Effort / Characteristics Respiratory Depth Respiratory Pattern Blood Pressure Blood Pressure [Right Arm] 97/76 L Blood Pressure Mean Blood Pressure Mean [Right Arm] 83 Pulse Oximetry 82 L Oxygen Delivery Method Room Air Room Air Oxygen Flow Rate Sepsis Recent Fever Within 48 Hours Sepsis New/Unexplained Change in Mental Status Sepsis Action Taken by Nursing 08/11/22 09:02 08/11/22 08:58 08/11/22 08:58 Temperature Temperature Source Pulse Rate 100 H Pulse Rate [Apical] Pulse Rate from SpO2 Sensor 103 H Pulse Rhythm Respiratory Rate 19 Respiratory Effort / Characteristics Respiratory Depth Respiratory Pattern Blood Pressure 92/68 L Blood Pressure [Right Arm] Blood Pressure Mean 76 Blood Pressure Mean [Right Arm] Pulse Oximetry 99 98 Oxygen Delivery Method Nasal Cannula Room Air Oxygen Flow Rate 3 Sepsis Recent Fever Within 48 Hours Sepsis New/Unexplained Change in Mental Status Sepsis Action Taken by Nursing 08/11/22 09:00 08/11/22 09:01 08/11/22 09:01 Temperature Temperature Source Pulse Rate 97 H 90 Pulse Rate [Apical] Pulse Rate from SpO2 Sensor 98 H 98 H Pulse Rhythm Respiratory Rate 19 19 Respiratory Effort / Characteristics Respiratory Depth Respiratory Pattern Blood Pressure 97/76 L Blood Pressure [Right Arm] Blood Pressure Mean 83 Blood Pressure Mean [Right Arm] Pulse Oximetry 99 99 Oxygen Delivery Method Room Air Nasal Cannula Oxygen Flow Rate 3 Sepsis Recent Fever Within 48 Hours Sepsis New/Unexplained Change in Mental Status Sepsis Action Taken by Nursing 08/11/22 09:30 08/11/22 09:30 08/11/22 10:00 Temperature Temperature Source Pulse Rate 92 H 103 H Pulse Rate [Apical] Pulse Rate from SpO2 Sensor 106 H 88 Pulse Rhythm Respiratory Rate 20 22 Respiratory Effort / Characteristics Respiratory Depth Respiratory Pattern Blood Pressure 95/69 L Blood Pressure [Right Arm] Blood Pressure Mean 77 Blood Pressure Mean [Right Arm] Pulse Oximetry 94 99 Oxygen Delivery Method Nasal Cannula Nasal Cannula Oxygen Flow Rate 3 3 Sepsis Recent Fever Within 48 Hours Sepsis New/Unexplained Change in Mental Status Sepsis Action Taken by Nursing 08/11/22 10:01 08/11/22 10:01 08/11/22 10:30 Temperature Temperature Source Pulse Rate 95 H 90 Pulse Rate [Apical] Pulse Rate from SpO2 Sensor 95 H 96 H Pulse Rhythm Respiratory Rate 20 19 Respiratory Effort / Characteristics Respiratory Depth Respiratory Pattern Blood Pressure 113/82 Blood Pressure [Right Arm] Blood Pressure Mean 92 Blood Pressure Mean [Right Arm] Pulse Oximetry 99 97 Oxygen Delivery Method Nasal Cannula Nasal Cannula Oxygen Flow Rate 3 3 Sepsis Recent Fever Within 48 Hours Sepsis New/Unexplained Change in Mental Status Sepsis Action Taken by Nursing 08/11/22 10:31 08/11/22 10:31 Temperature Temperature Source Pulse Rate 97 H Pulse Rate [Apical] Pulse Rate from SpO2 Sensor 102 H Pulse Rhythm Respiratory Rate 17 Respiratory Effort / Characteristics Respiratory Depth Respiratory Pattern Blood Pressure 124/91 Blood Pressure [Right Arm] Blood Pressure Mean 102 Blood Pressure Mean [Right Arm] Pulse Oximetry 97 Oxygen Delivery Method Nasal Cannula Oxygen Flow Rate 3 Sepsis Recent Fever Within 48 Hours Sepsis New/Unexplained Change in Mental Status Sepsis Action Taken by Nursing Laboratory Data Attestation: I reviewed the patient's lab results. 08/11/22 08:39 08/11/22 08:39 Lab Results 08/11/22 08/11/22 08/11/22 Range/Units 08:39 08:39 08:39 WBC 18.05 H (4.8-10.8) K/ul RBC 5.64 (4.70-6.10) M/uL Hgb 13.8 L (14.0-18.0) g/dl Hct 45.4 (42.0-52.0) % MCV 80.5 (80.0-100.0) fL MCH 24.5 L (25.0-34.0) pg MCHC 30.4 L (32.0-36.0) g/dL RDW Std Deviation 51.6 H (36.4-46.3) fL RDW Coeff of Sarah 18.9 H (11.5-14.5) % Plt Count 191 (130-400) K/uL MPV 9.8 (9.4-12.4) fL Immature Gran % (Auto) 0.9 % Neut % (Auto) 84.8 % Lymph % (Auto) 7.3 % [place] % (Auto) 6.0 % Eos % (Auto) 0.6 % Baso % (Auto) 0.4 % Neut # (Auto) 15.30 H (1.40-6.50) K/uL Lymph # (Auto) 1.31 (1.2-3.4) K/uL [place] # (Auto) 1.08 H (0.11-0.59) K/uL Eos # (Auto) 0.11 (0-0.50) K/uL Baso # (Auto) 0.08 (0-0.2) K/uL Immature Gran # (Auto) 0.17 (0.01-0.20) K/uL Sodium 139 (136-145) mmol/L Potassium 5.5 H (3.5-5.1) mmol/L Chloride 108 H (98-107) mmol/L Carbon Dioxide 23 (21-32) mmol/L Anion Gap 8 (3-11) BUN 55 H (6-23) mg/dl Creatinine 2.66 H (0.6-1.4) mg/dl Est Cr Clr Drug Dosing 26.9 ml/min Est GFR ( Amer) 25.1 ml/min Est GFR (Non-Af Amer) 21.7 ml/min BUN/Creatinine Ratio 20.7 H (10-20) Glucose 113 H (70-99(Fasting)) mg/dl Calcium 9.5 (8.6-10.3) mg/dl Phosphorus 4.6 (2.5-4.9) mg/dl Magnesium 2.5 H (1.7-2.4) mg/dl Total Bilirubin 0.7 (0.2-1.0) mg/dl AST 42 H (13-39) U/L ALT 37 (7-52) U/L Alkaline Phosphatase 75 (34-104) U/L Troponin I High Sens 25.9 H (0-20) pg/ml B-Natriuretic Peptide 808 H (0-100) pg/ml Total Protein 6.8 (6.0-8.3) gm/dl Albumin 3.9 (3.4-5.0) gm/dl Globulin 2.9 (2.5-4.0) gm/dl Albumin/Globulin Ratio 1.3 (0.9-2) Lipase 51 (11-82) U/L Procalcitonin (0-0.5) ng/ml SARS-CoV-2, RNA, NAAT (NEGATIVE) 08/11/22 08/11/22 Range/Units 08:39 10:52 WBC (4.8-10.8) K/ul RBC (4.70-6.10) M/uL Hgb (14.0-18.0) g/dl Hct (42.0-52.0) % MCV (80.0-100.0) fL MCH (25.0-34.0) pg MCHC (32.0-36.0) g/dL RDW Std Deviation (36.4-46.3) fL RDW Coeff of Sarah (11.5-14.5) % Plt Count (130-400) K/uL MPV (9.4-12.4) fL Immature Gran % (Auto) % Neut % (Auto) % Lymph % (Auto) % [place] % (Auto) % Eos % (Auto) % Baso % (Auto) % Neut # (Auto) (1.40-6.50) K/uL Lymph # (Auto) (1.2-3.4) K/uL [place] # (Auto) (0.11-0.59) K/uL Eos # (Auto) (0-0.50) K/uL Baso # (Auto) (0-0.2) K/uL Immature Gran # (Auto) (0.01-0.20) K/uL Sodium (136-145) mmol/L Potassium (3.5-5.1) mmol/L Chloride (98-107) mmol/L Carbon Dioxide (21-32) mmol/L Anion Gap (3-11) BUN (6-23) mg/dl Creatinine (0.6-1.4) mg/dl Est Cr Clr Drug Dosing ml/min Est GFR ( Amer) ml/min Est GFR (Non-Af Amer) ml/min BUN/Creatinine Ratio (10-20) Glucose (70-99(Fasting)) mg/dl Calcium (8.6-10.3) mg/dl Phosphorus (2.5-4.9) mg/dl Magnesium (1.7-2.4) mg/dl Total Bilirubin (0.2-1.0) mg/dl AST (13-39) U/L ALT (7-52) U/L Alkaline Phosphatase (34-104) U/L Troponin I High Sens (0-20) pg/ml B-Natriuretic Peptide (0-100) pg/ml Total Protein (6.0-8.3) gm/dl Albumin (3.4-5.0) gm/dl Globulin (2.5-4.0) gm/dl Albumin/Globulin Ratio (0.9-2) Lipase (11-82) U/L Procalcitonin < 0.05 (0-0.5) ng/ml SARS-CoV-2, RNA, NAAT NEGATIVE (NEGATIVE) Administered Medications Ferrous Sulfate (Ferrous Sulfate 325 Mg Tab) 325 mg PO BID BEHZAD Stop: 09/10/22 20:59 Last Admin: 08/11/22 20:31 Dose: 325 mg Documented By: ESTELLE Bumetanide 2 mg/ Syringe 8 mls @ 4 mls/min IV BID@0900,2100 BEHZAD Stop: 09/10/22 20:59 Last Admin: 08/11/22 20:32 Dose: 4 mls/min Documented By: ESTELLE Lidocaine (Lidocaine 5% 1 Patch) 1 patch TD QAM BEHZAD Stop: 09/10/22 12:29 Last Admin: 08/11/22 13:37 Dose: 1 patch Documented By: JESIKA Metoprolol Succinate (Metoprolol Succ 50mg Ext Rel Tab) 100 mg PO HS BEHZAD Stop: 09/10/22 20:59 Last Admin: 08/11/22 20:30 Dose: 100 mg Documented By: ESTELLE Miscellaneous (Remove Lidoderm Patch) 1 each N/A DAILY@2100 BEHZAD Stop: 09/10/22 20:59 Last Admin: 08/11/22 20:32 Dose: 1 each Documented By: ESTELLE Rivaroxaban (Rivaroxaban 15 Mg Tab) 15 mg PO HS [facility] Stop: 09/10/22 20:59 Last Admin: 08/11/22 20:30 Dose: 15 mg Documented By: ESTELLE Tramadol HCl (Tramadol Hcl 50 Mg Tablet) 25 mg PO BID PRN PRN Reason: Pain Stop: 09/10/22 12:27 Last Admin: 08/11/22 13:08 Dose: 25 mg Documented By: JESIKA Discontinued Medications Bumetanide 2 mg/ Syringe 8 mls @ 4 mls/min IV ONE ONE Stop: 08/11/22 11:07 Last Admin: 08/11/22 12:58 Dose: 4 mls/min Documented By: JESIKA Calcium Gluconate 1,000 mg/ (Dextrose) 60 mls @ 240 mls/hr IV ONCE STA Stop: 08/11/22 12:07 Last Infusion: 08/11/22 14:27 Dose: 0 mls/hr Documented By: Admin: 08/11/22 14:12 Dose: 240 mls/hr Documented By: JESIKA Imaging Data Radiologist's Impression: Chest X-Ray 08/11/22 08:22 SINGLE VIEW CHEST CLINICAL HISTORY: Atypical chest pain FINDINGS: An AP, portable, upright chest radiograph is compared to study dated 07/10/2022 and correlated with chest CT dated 12/21/2017. The examination is degraded by portable technique and apical lordotic positioning. The patient is status post midline sternotomy. The heart is enlarged noting atherosclerotic calcification of the thoracic aorta. There is mild pulmonary vascular congestion. Trace pleural effusions are suspected. Atelectasis is noted at the lung bases. No pneumothorax is seen. The skeletal structures are osteopenic. The bony thorax is grossly intact. IMPRESSION: 1. Cardiomegaly with mild pulmonary vascular congestion. 2. Suspect trace pleural effusion. ACT 112: Negative or not required by law. Electronically signed by: Vargas Perales M.D. 08/11/2022 9:18 AM Discharge Plan Visit Data Chief Complaint: Shortness of Breath/Dyspnea Stated Complaint: SOB, CRAMPS, AFIB ED Provider: Wilson Cummings Discharge Problem: CHF (congestive heart failure), Atrial fibrillation, Chronic kidney disease, stage III (moderate), Arm pain, left Patient Disposition: Admitted As Inpatient Discharge Instructions Interventions: ED Discharge Assessment Last Done: 08/11/22 12:03
[2022-08-11 09:12] LABS: Albumin Globulin Ratio 1.3 (0.9-2); Albumin Level 3.9 gm/dl (3.4-5.0); BUN Creatinine Ratio 20.7 (10-20); Bilirubin,Total 0.7 mg/dl (0.2-1.0); Calcium 9.5 mg/dl (8.6-10.3); Creatinine Clr Calc Pharmacy 26.9 ml/min; Est GFR (African American) 25.1 ml/min; Est GFR (Non-African American) 21.7 ml/min; Globulin 2.9 gm/dl (2.5-4.0); Magnesium 2.5 mg/dl (1.7-2.4); Phosphorus 4.6 mg/dl (2.5-4.9); Potassium 5.5 mmol/L (3.5-5.1); Total Protein 6.8 gm/dl (6.0-8.3)
[2022-08-11 09:19] LABS: Troponin I High Sensitivity 25.9 pg/ml (0-20)
--- NOTE | 2022-08-11 09:19 | XRay Report ---
SINGLE VIEW CHEST CLINICAL HISTORY: Atypical chest pain FINDINGS: An AP, portable, upright chest radiograph is compared to study dated 07/10/2022 and correlat ed with chest CT dated 12/21/2017. The examination is degraded by portable technique and apical lordot ic positioning. The patient is status post midline sternotomy. The heart is enlarged noting atheroscl erotic calcification of the thoracic aorta. There is mild pulmonary vascular congestion. Trace pleura l effusions are suspected. Atelectasis is noted at the lung bases. No pneumothorax is seen. The skele teresa structures are osteopenic. The bony thorax is grossly intact. IMPRESSION: 1. Cardiomegaly with mild pulmonary vascular congestion. 2. Suspect trace pleural effusion. ACT 112: Negative or not required by law. Electronically signed by: Vargas Perales M.D. 08/11/2022 9:18 AM
[2022-08-11] MEDS ORDERED: BUMETANIDE 2 MG in SYRINGE 0 ML IV ONE (11:06)
--- NOTE | 2022-08-11 11:24 | History & Physical Report ---
Date of Service August 11, 2022 Assessment & Plan (1) Dyspnea: Plan: -Admit to med/tele on continuous pulse oximetry -At this time the patient's ongoing/progressive dyspnea appears to be associated with an acute diastolic CHF exacerbation -He is up approximately 11 lbs since his last PCP visit last month, BNP is 808 today, increased from 416 on last admission, CXR showing BL pleural effusions and mild pulm edema -Initial high sen trop elevated at 25, low suspicion for ACS at this time -No obvious consolidation on CXR, will FU on procal ordered in the ED but will hold abx for now -No missed doses of Xarelto, low suspicion for PE at this time -Did not use his HS Bipap on Thursday night and was noted to have severe pulm HTN on last echo on 07/12, this could also be contributing -S/P 2 mg IV bumex in the ED, will continue with 2 mg IV BID for now -Cardiology consult placed -Monitor intake/output q-shift, 2gm sodium restriction and 1500 mL fluid restriction for now -BL SCD's and home Xarelto for DVT PPX -AM CBC, CMP, Mag, PT/INR (2) Acute diastolic (congestive) heart failure: Plan: -Weight and BNP significantly elevated compared to last admission -Has been out of PRN metolazone but has been taking bumex and eplerenone -Continue with IV diuresis for now, Cardiology consult placed, will hold repeat ECHO at this time -It appears that diet may be significantly contributing to his volume status as they eat out frequently, will need to continue to stress low sodium intake and fluid restriction -Hold home bumex, eplerenone, and metoplazone while on IV bumex for now (3) Hyperkalemia: Plan: -Noted to be 5.5 this am -Likely due to increased KCL and mag taken by patient over the past 12 hours for cramping -No acute T-wave changes on ECG -Given 2 mg IV bumex in the ED, I gave 1 gm IV calcium gluconate on admission -Will monitor 4 hr repeat potassium, continue to monitor on tele -Hold PO KCL and mag for now, could likely restart tomorrow if electrolytes are stable (4) Acute kidney injury superimposed on CKD: Plan: -Cr noted to be 2.66 today, baseline appears to be around 2.27 -His Cr may be elevated today due to a component of cardio-renal syndrome with his acute CHF exacerbation -For now will monitor renal function closely with repeat BMP this afternoon with current diuresis -If his renal function continues to decline will consult Nephrology -Monitor am renal function, intake/output q-shift (5) Aspiration into respiratory tract: Plan: -Patient reports progressive aspiration with liquids over the past 5 months -No sign of pneumonia on CXR today, for now will keep on clear liquid diet with aspiration precautions -Speech therapy consult placed for further evaluation (6) Leukocytosis: Plan: -WBC elevated at 18 with left shift of 15 -Patient has been afebrile and without an obvious source of infection as his CXR is without consolidation, no urinary or abdominal symptoms, no meningitic symptoms with his chronic neck/arm pain -Possibly reactive from acute illness? -Currently hemodynamically stable and stable on RA -Will hod abx for now and FU on procal ordered by the ED -Continue to monitor on tele and pulse oximetry (7) Elevated troponin: Plan: -Initial high sen trop elevated at 25.9 -Patient is asymptomatic and without acute ST segment or t-wave changes -Likely due to demand from volume overload and afib RVR -Will FU on STAT repeat 2 hour trop and continue to monitor on tele (8) Atrial fibrillation: Plan: -Long history, S/P unsuccessful electrical cardioversion in 2020, follows with Dr. Izquierdo -Still in afib today -Patient monitors HR at home and notes that his HR has been consistently running in the 120's-130's, he has been asymptomatic -HR currently stable in the 70-90's, continue HS metoprlolol Succinate -PRN IV Lopressor q4h prn for sustained tachycardia > 120 BPM for now -Follow cards consult (9) Hypermagnesemia: Plan: -2.5 today in the ED, likely due to increased supplemental intake -Continue to monitor on tele and am electrolytes (10) Cramps, muscle, general: Plan: -Noted to have right neck/RUE pain/cramping which began last night -Symptoms had been improved with steroid injection approximately 3 weeks ago -Will continue with heating pad, lidocaine patch, and home prn tramadol for now. (11) Obstructive sleep apnea: Plan: -HS CPAP/Bipap ordered (12) Hypertension: Plan: -Stable, continue metoprolol Plan The patient was discussed with Dr. Osborn at the time of the admission History of Present Illness Chief Complaint: SOB Primary Care Provider: Zackery Cochran DO Kyler Antoine is an 82-year-old male with past medical history of diastolic CHF, longstanding dyspnea on exertion NYHA class II3, bioprosthetic AVR, paroxysmal A-fib (on Xarelto), morbid obesity, chronic venous insufficiency, and CKD who presented to the [facility] ED on 08/11/22 with increased SOB from baseline and left arm cramping. In the ED the patient was found to be mildly hypotensive at 92/68, hypoxic at 82% on RA, tachycardic at 117, and afebrile. Labs were significant for a leukocytosis of 18 with left shift of 15, cr of 2.66 (baseline is near 2.27), potassium of 5.5, mag of 2.5, BNP of 808 (up from 416 as of 07/10), initial high sen trop of 25.9. CXR shows cardiomegaly with mild pulmonary vascular congestion and BL trace pleural effusions. Of note, the patient reportedly took additional doses of his KCL, magnesium, and iron supplements prior to arrival due to his cramping. Prior to admission the patient was given 2 mg IV bumex. Per chart review, the patient was recently admitted to [facility] from 07/10- 07/12 for dyspnea thought to be due to acute diastolic CHF from persistent afib RVR at home. Cardiology was consulted, the patient initially underwent IV diuresis but was transitioned back to his home oral regimen prior to discharge. His beta trinity regimen was adjusted from succinate 50 mg BID to 100 mg Hs. He was also discharged with a course of amoxicillin for dental pain. At the time of the exam the patient was sitting on the side of his bed in no acute distress with his sitting bedside. He states that since his last admission he has been having ongoing issues with progressive SERVIN and increased HR at home. His dyspnea only improved for approximately 4 days after his last discharge, then started to progress. He has been taking most medications as prescribed including his metoprolol, bumex, eplerenone, and xarelto. He ran out of his prn metolazone approximately 4 days ago. Over the weekend he and his family went camping, he was without his HS Bipap on Thursday night but has used it all other nights since. When asked about his diet, his explains that they eat out almost every day and he has a hard time monitoring his sodium restriction. He has a long history of cervical stenosis with upper extremity radicular symptoms. He had a steroid injection on the right side of his neck approximately 3 weeks ago. It initially worked, but he had an acute exacerbation of right neck/right UE pain and cramping which began last night. His symptoms are exacerbated when sitting or lying in certain positions. He took additional doses of his PO KCL, magnesium and iron last night and this am as he thought his electrolytes may be low and causing his symptoms. he notes that he has been having progressive issues with intermittent aspiration while drinking liquids. This has been getting worse and he notes it is often the worst at the beginning of the day. He denies aspiration of solids. He did not have any of his am medications prior to arrival. He denies recent fever, chills, chest pain, cough, abd pain, nausea, vomiting, diarrhea, dysuria, hematuria, melena, constipation, and recent trauma. He does feel as though he has gained some weight and has additional LE swelling compared to baseline. He is a full code and wishes for his to make medical decisions for him if he cannot make them himself. Of note, the ED staff indicated that the patient's SpO2 fell while he was asleep in the ED. During my exam he was stable on RA. Please refer to Dr. Osborn's attestation for any changes to the treatment plan Allergies Allergy/AdvReac Type Severity Reaction Status Date / Time Iodinated Contrast Media Allergy Unknown Verified 07/16/22 12:51 [Iodinated Contrast- Oral and IV Dye] Home Medications Medication Instructions Recorded Confirmed Type potassium citrate 10 mEq (1,080 20 meq PO BID 12/21/17 08/11/22 History mg) tablet,extended release amoxicillin 500 mg tablet 2,000 mg PO ONCE 11/16/18 08/11/22 History cyanocobalamin (vitamin B-12) 1,000 mcg IM Q90D 05/03/20 08/11/22 History 1,000 mcg/mL injection solution docusate sodium 100 mg capsule 100 mg PO QAM PRN Constipation 05/03/20 08/11/22 History rivaroxaban 15 mg tablet 15 mg PO HS 01/21/22 08/11/22 History allopurinol 100 mg tablet 100 mg PO QAM #90 tabs 04/22/22 08/11/22 Rx cyclobenzaprine 5 mg tablet 5 mg PO BID PRN muscle 04/22/22 08/11/22 Rx pain/stiffness #60 tabs eplerenone 25 mg tablet 25 mg PO QAM #90 tabs 04/22/22 08/11/22 Rx calcitriol 0.25 mcg capsule 0.5 mcg PO QAM #90 caps 07/01/22 08/11/22 Rx bumetanide 2 mg tablet 2 mg PO BID 07/10/22 08/11/22 History cholecalciferol (vitamin D3) 50 50 mcg PO DAILY 07/10/22 08/11/22 History mcg (2,000 unit) capsule (Vitamin D3) ferrous sulfate 325 mg (65 mg 325 mg PO BID 07/10/22 08/11/22 History iron) tablet magnesium 250 mg tablet 250 mg PO DAILY 07/10/22 08/11/22 History multivitamin with iron 1 tab PO DAILY 07/10/22 08/11/22 History metoprolol succinate 50 mg 100 mg PO HS #60 tabs 07/12/22 08/11/22 Rx tablet,extended release 24 hr tramadol 50 mg tablet 50 mg PO BID PRN Pain #60 tabs 07/16/22 08/11/22 Rx metolazone 5 mg tablet See Rx Instructions .Route .COMPLEX 08/11/22 08/11/22 History Past Med/Surg History Medical History Atrial fibrillation Chronic diastolic CHF (congestive heart failure) Chronic low back pain with right-sided sciatica CKD (chronic kidney disease), stage III History of anxiety History of aortic valve disease History of COVID-19 Hx of gout Hx of impacted cerumen Hx of osteoarthritis Hx of rotator cuff tear Hyperlipidemia Hypertension Kidney stones Morbid obesity Obstructive sleep apnea Prediabetes Renal cell adenocarcinoma Surgical History Aortic valve replaced History of cholecystectomy History of esophagogastroduodenoscopy (EGD) History of gastric bypass History of left nephrectomy History of spinal surgery History of total bilateral knee replacement Hx of cardiac catheterization Hx of colonoscopy Hx of cystoscopy Hx of tonsillectomy Family History Mother Breast cancer Lung disease Grandmother (Maternal) Breast cancer Aunt Breast cancer Sister Breast cancer Father Myocardial infarction Arthritis Denies family history of Ovarian cancer Prostate cancer Colorectal cancer Social History Smoking Status: Never smoker Second Hand Exposure: Yes (as a child-parents were chain smokers); Do You Dip or Chew Tobacco: No; Hx Alcohol Use: No Hx Substance Use: No Preferred Language: Serbian Communication Ability: Effective Visual Impairment: No Limitations Hearing Ability: Normal 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 Beliefs That Will Affect Care: None marital status: Current Living Situation: Spouse and Family Current Living Situation Comment: with current occupational status: retired 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[employer] [place] Other Information That Helps Us Care for You: No Feels Safe at Home: Yes Safety Concerns: Feels Safe At This Time Childhood Exposure to Second-Hand Smoke: Yes Dental Care, Regularly: Yes Physical Activity Frequency: Does not Exercise Physical Activity Frequency Comment: Physical activity limited due to medical conditions Seatbelt Use: always Sunscreen Use: No Assistive Devices: BiPap, Cane and Glasses Physical Exam Physical Exam: Physical Exam: General: In no acute distress, stated age, chronically ill appearing but non- toxic HEENT: Normocephalic, atraumatic, no scleral icterus, pupils around round, symmetrical, and reactive to light, moist mucus membranes, trachea midline, no thyromegaly Chest/Pulm: No respiratory distress, symmetrical chest expansion, decreased breath sounds in the BL lower lung kuhn with crackles in the middle lung kuhn Cardiac: irregular rate and rhythm, systolic murmur noted Abdomen: Negative for ascites and bruising, normoactive bowel sounds, soft, non-tender to palpation throughout Musculoskeletal: Symmetrical and without signs of acute trauma, able to flex neck and turn head without significant pain, upper and lower extremities with full ROM, no atrophy, spasticity, or flaccidity Extremities: Radial, dorsalis pedis, and posterior tibial pulses are intact and symmetrical, 2+ pitting edema noted in the BL LE's Skin: Warm, dry, no rashes , lesions, or scars noted Neuro: Alert and oriented to person, place, month, year, and president, no focal defects, CN II-XII tested and intact, symmetrical strength in the BL upper and lower extremities, no tremors noted Psych: No acute distress, calm and cooperative during the exam Results & Data Results & Data Vital Signs (Past 12 Hours) Vital Signs Temp Pulse Pulse Resp BP BP Pulse Ox 08/11/22 10:31 124/91 08/11/22 10:31 97 H 17 97 08/11/22 10:30 90 19 97 08/11/22 10:01 113/82 08/11/22 10:01 95 H 20 99 08/11/22 10:00 103 H 22 99 08/11/22 09:30 92 H 20 94 08/11/22 09:30 95/69 L 08/11/22 09:01 97/76 L 08/11/22 09:01 90 19 99 08/11/22 09:00 97 H 19 99 08/11/22 08:58 92/68 L 08/11/22 08:58 100 H 19 98 08/11/22 09:02 99 08/11/22 09:02 93 H 20 97/76 L 82 L 08/11/22 08:48 96 H 08/11/22 08:22 08/11/22 08:22 08/11/22 08:26 96 08/11/22 08:12 36.5 C 117 H 20 112/76 97 O2 Del Method O2 Flow Rate 08/11/22 10:31 08/11/22 10:31 Nasal Cannula 3 08/11/22 10:30 Nasal Cannula 3 08/11/22 10:01 08/11/22 10:01 Nasal Cannula 3 08/11/22 10:00 Nasal Cannula 3 08/11/22 09:30 Nasal Cannula 3 08/11/22 09:30 08/11/22 09:01 08/11/22 09:01 Nasal Cannula 3 08/11/22 09:00 Room Air 08/11/22 08:58 08/11/22 08:58 Room Air 08/11/22 09:02 Nasal Cannula 3 08/11/22 09:02 Room Air 08/11/22 08:48 08/11/22 08:22 Room Air 08/11/22 08:22 Room Air 08/11/22 08:26 Room Air 08/11/22 08:12 Room Air Laboratory Results Abnormal lab results 08/11/22 08/11/22 08/11/22 Range/Units 08:39 08:39 08:39 WBC 18.05 H (4.8-10.8) K/ul Hgb 13.8 L (14.0-18.0) g/dl MCH 24.5 L (25.0-34.0) pg MCHC 30.4 L (32.0-36.0) g/dL RDW Std Deviation 51.6 H (36.4-46.3) fL RDW Coeff of Sarah 18.9 H (11.5-14.5) % Neut # (Auto) 15.30 H (1.40-6.50) K/uL [place] # (Auto) 1.08 H (0.11-0.59) K/uL Potassium 5.5 H (3.5-5.1) mmol/L Chloride 108 H (98-107) mmol/L BUN 55 H (6-23) mg/dl Creatinine 2.66 H (0.6-1.4) mg/dl BUN/Creatinine Ratio 20.7 H (10-20) Glucose 113 H (70-99(Fasting)) mg/dl Magnesium 2.5 H (1.7-2.4) mg/dl AST 42 H (13-39) U/L Troponin I High Sens 25.9 H (0-20) pg/ml B-Natriuretic Peptide 808 H (0-100) pg/ml Diagnostic Findings Chest X-Ray 08/11/22 08:22 SINGLE VIEW CHEST CLINICAL HISTORY: Atypical chest pain FINDINGS: An AP, portable, upright chest radiograph is compared to study dated 07/10/2022 and correlated with chest CT dated 12/21/2017. The examination is degraded by portable technique and apical lordotic positioning. The patient is status post midline sternotomy. The heart is enlarged noting atherosclerotic calcification of the thoracic aorta. There is mild pulmonary vascular congestion. Trace pleural effusions are suspected. Atelectasis is noted at the lung bases. No pneumothorax is seen. The skeletal structures are osteopenic. The bony thorax is grossly intact. IMPRESSION: 1. Cardiomegaly with mild pulmonary vascular congestion. 2. Suspect trace pleural effusion. ACT 112: Negative or not required by law. Electronically signed by: Vargas Perales M.D. 08/11/2022 9:18 AM ECG Additional Comments: Atrial fibrillation with rapid ventricular response Nonspecific ST and T wave abnormality Abnormal ECG When compared with ECG of 10-JUL-2022 17:38, No significant change was found Code Status & VTE Plan Code Status Full code VTE Prophylaxis Plan VTE Prophylaxis will be ordered: Yes PG Care Time/CCT Total # of Minutes Spent Total Time Spent with Patient: Total time spent is greater than 50% in coordination of care (as documented) at patient's floor/unit and/or counseling patient: Coding [place] [address] INT INP/OBS CARE 3/75MIN Patient Type Established History Comprehensive Exam Comprehensive Medical Decision Making High Complexity Diagnoses Dyspnea R06.00 Acute diastolic (congestive) heart failure I50.31 Hyperkalemia E87.5 Acute kidney injury superimposed on CKD N17.9; N18.9 Aspiration into respiratory tract T17.908A Leukocytosis D72.829 Elevated troponin R77.8 Atrial fibrillation I48.91 Hypermagnesemia E83.41 Cramps, muscle, general R25.2 Obstructive sleep apnea G47.33 Hypertension I10
[2022-08-11] MEDS ORDERED: METOPROLOL TARTRATE 1 MG/ML VIAL IV PRN (11:51)
[2022-08-11] MEDS ORDERED: CALCIUM GLUCONATE 10% 1,000 MG in DEXTROSE 5% 50 ML IV STA (11:53)
[2022-08-11] MEDS ORDERED: STAT IV STA (11:53)
[2022-08-11] MEDS: traMADol HCL 50 MG TABLET PO PRN (13:08)
[2022-08-11 13:19] LABS: Potassium 5.7 mmol/L (3.5-5.1)
[2022-08-11 13:25] LABS: Troponin I High Sensitivity 23.4 pg/ml (0-20)
[2022-08-11] MEDS: LIDOCAINE 5% 1 PATCH TD SCH (13:37)
[2022-08-11] MEDS ORDERED: Nursing to Pharmacy Communication SCH (15:00)
[2022-08-11 15:36] LABS: Appearance Urine Clear (Clear); Bacteria Urine Automated Negative (Negative); Bilirubin Urine Negative (Negative); Blood Urine Negative (Negative); Color Urine Yellow; Glucose Urine UA Negative (Negative); Ketones Urine Negative (Negative); Leukocyte Esterase Urine Negative (Negative); Nitrite Urine Negative (Negative); Protein Urine Trace (Negative); RBC Urine Automated 0-4 /hpf (0-4); Specific Gravity Urine 1.013 (1.000-1.030); Urobilinogen Urine Negative (Negative); WBC Urine Automated 0 /hpf (0-5)
--- NOTE | 2022-08-11 16:41 | Cardiology Consultation ---
Date of Consultation August 11, 2022 Assessment & Plan (1) Acute diastolic (congestive) heart failure: (2) Elevated troponin: (3) Dyspnea: (4) Atrial fibrillation: Plan 1. Dyspnea: Clearly multifactorial. His exam was fairly benign with the exception of some lower extremity edema. I think his situation is complicated by several contributing comorbidities. He is morbidly obese in clearly deconditioned. He has an element of cor pulmonale and diastolic heart failure. Also likely an element of intrinsic lung disease. He has fairly compromise breathing at baseline which has worsened slightly over the past few weeks. I am not confident most of his symptoms are related to decompensated heart failure, but we can certainly try diuresis and monitor its effect. 2. Decompensated diastolic heart failure: His filling pressures were normal at times catheterization a year ago. He did present with markedly elevated BNP although this may be less reliable an obese individual with permanent atrial fibrillation. He does appear to be somewhat volume overloaded but perhaps int ravascularly depleted. Intravenous diuretics have been ordered and will need to monitor both the effect as well as his creatinine and electrolytes. Chronically he has been maintained on beta-blockade, a player unknown and diuretics. Jardiance was previously prescribed but the patient found this to be cost prohibitive. I did mention this again today but he is still concerned about the cost. 3. Atrial fibrillation: Permanent. Previously on amiodarone subsequent cardioversion. No change in symptoms while in sinus rhythm. On systemic anticoagulation at a reduced dose based on his kidney dysfunction. It is unclear if he generally has good rate control or not. He does have a pulse oximeter at home as well as a blood pressure cuff. He reports numbers at home that are quite high specially with activity. We will need to monitor him on telemetry determine if more aggressive rate control is warranted. Perhaps as his volume status improves will see improved heart rates. We could easily give him more beta-blockade. Given the normal LV systolic function he would also be a candidate for calcium channel blockers. Digoxin will be less attractive given his renal insufficiency. 4. Aortic valve disease: Slightly elevated transvalvular gradients on the last echocardiogram, but otherwise normal function. Not likely contributing to any of his symptoms. 5. Pulmonary hypertension: He is known to have severe pulmonary hypertension. This is likely related to his morbid obesity, sleep disturbance and an element of diastolic dysfunction. He does use BiPAP at nighttime. There has been some concerns about hypoxia and he may require oxygen at least at nighttime if not during the day as well. History of Present Illness Reason for Consultation: Dyspnea Requesting Physician: Irena Attending Physician: Bernabe Osborn History of Present Illness The patient is an 82-year-old gentleman with a history of morbid obesity, aortic valve disease status post operative bioprosthetic aortic valve replacement, permanent atrial fibrillation, chronic renal insufficiency with a single kidney and diastolic heart failure who presented to the hospital with 2 complaints including shortness of breath and left arm discomfort. The patient was admitted to the hospital approximately 1 month ago for symptoms of decompensated heart failure. He underwent a diuresis and had a short hospitalization overall. He claims to be compliant with his diuretic regimen although he did run out of metolazone perhaps 2 weeks ago. He has been taking bumetanide as prescribed. H e states that for few days following his last hospitalization his breathing was at about baseline. This is still fairly compromise. He is able to do for quite little activity at home, but generally can ambulate without limitations around his house. More recently ill with minimal exertion he becomes quite dyspneic. He has been weighing himself at home and has not noticed a significant increase. However, he has reported some worsening lower extremity edema. He has been sleeping poorly. Most of this seems to involve the need to urinate or simply poor sleep hygiene overall. He does use a BiPAP machine at nighttime. He reported some cramping in the left arm. He has had similar symptoms in the past which appear to have responded to electrolyte replacement. The patient states that he took 5 extra doses of potassium in a couple extra doses of magnesium over the course of last evening without relief. The patient and his generally do not cook. They obtain all of their meals at a local restaurant or eat frozen or prepared foods. At the time of the interview the patient appeared comfortable. He denies significant breathing difficulty at rest. No pleuritic discomfort. Left arm peers improved. Allergies Allergy/AdvReac Type Severity Reaction Status Date / Time Iodinated Contrast Media Allergy Unknown Verified 07/16/22 12:51 [Iodinated Contrast- Oral and IV Dye] Home Medications Medication Instructions Recorded Confirmed Type potassium citrate 10 mEq (1,080 20 meq PO BID 12/21/17 08/11/22 History mg) tablet,extended release amoxicillin 500 mg tablet 2,000 mg PO ONCE 11/16/18 08/11/22 History cyanocobalamin (vitamin B-12) 1,000 mcg IM Q90D 05/03/20 08/11/22 History 1,000 mcg/mL injection solution docusate sodium 100 mg capsule 100 mg PO QAM PRN Constipation 05/03/20 08/11/22 History rivaroxaban 15 mg tablet 15 mg PO HS 01/21/22 08/11/22 History allopurinol 100 mg tablet 100 mg PO QAM #90 tabs 04/22/22 08/11/22 Rx cyclobenzaprine 5 mg tablet 5 mg PO BID PRN muscle 04/22/22 08/11/22 Rx pain/stiffness #60 tabs eplerenone 25 mg tablet 25 mg PO QAM #90 tabs 04/22/22 08/11/22 Rx calcitriol 0.25 mcg capsule 0.5 mcg PO QAM #90 caps 07/01/22 08/11/22 Rx bumetanide 2 mg tablet 2 mg PO BID 07/10/22 08/11/22 History cholecalciferol (vitamin D3) 50 50 mcg PO DAILY 07/10/22 08/11/22 History mcg (2,000 unit) capsule (Vitamin D3) ferrous sulfate 325 mg (65 mg 325 mg PO BID 07/10/22 08/11/22 History iron) tablet magnesium 250 mg tablet 250 mg PO DAILY 07/10/22 08/11/22 History multivitamin with iron 1 tab PO DAILY 07/10/22 08/11/22 History metoprolol succinate 50 mg 100 mg PO HS #60 tabs 07/12/22 08/11/22 Rx tablet,extended release 24 hr tramadol 50 mg tablet 50 mg PO BID PRN Pain #60 tabs 07/16/22 08/11/22 Rx metolazone 5 mg tablet See Rx Instructions .Route .COMPLEX 08/11/22 08/11/22 History Patient History Medical History Atrial fibrillation Chronic diastolic CHF (congestive heart failure) Chronic low back pain with right-sided sciatica CKD (chronic kidney disease), stage III History of anxiety History of aortic valve disease History of COVID-19 Hx of gout Hx of impacted cerumen Hx of osteoarthritis Hx of rotator cuff tear Hyperlipidemia Hypertension Kidney stones Morbid obesity Obstructive sleep apnea Prediabetes Renal cell adenocarcinoma Surgical History Aortic valve replaced History of cholecystectomy History of esophagogastroduodenoscopy (EGD) History of gastric bypass History of left nephrectomy History of spinal surgery History of total bilateral knee replacement Hx of cardiac catheterization Hx of colonoscopy Hx of cystoscopy Hx of tonsillectomy Family History Mother Breast cancer Lung disease Grandmother (Maternal) Breast cancer Aunt Breast cancer Sister Breast cancer Father Myocardial infarction Arthritis Denies family history of Ovarian cancer Prostate cancer Colorectal cancer Social History Smoking Status: Never smoker Second Hand Exposure: Yes (as a child-parents were chain smokers); Do You Dip or Chew Tobacco: No; Hx Alcohol Use: No Hx Substance Use: No Preferred Language: Upper Sorbian Communication Ability: Effective Visual Impairment: No Limitations Hearing Ability: Normal 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: No Beliefs That Will Affect Care: None marital status: Current Living Situation: Spouse and Family Current Living Situation Comment: with current occupational status: retired 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 No recent fevers or chills. No coughing. He did report some difficulty swallowing early in the morning which seems to improve as the day pr ogresses. No vomiting. No abdominal pain. Physical Exam Physical Exam: The patient is alert and oriented. Mood and affect appeared normal. He answered all questions appropriately. Morbidly obese HEENT: Pupils are equal and reactive to light and accommodation. Extraocular movements are intact. The sclerae are anicteric. Neuro: Cranial nerves intact Chest: Well-healed sternotomy scar Lungs: Clear to auscultation bilaterally. He has good air movement without use of accessory muscles. No rales wheezes or rhonchi. Cardiac: Heart demonstrates an irregular rate and rhythm. Normal S1 and crisp S2. Systolic ejection murmur. Pulses: The patient has palpable radial pulses bilaterally that are equal in intensity Extremities: There was no evidence of hypoperfusion. There is no cyanosis or clubbing. Moderate lower extremity edema Skin: I did not appreciate any rashes on examination today. Results & Data Vital Signs (Past 12 Hours) Vital Signs Temp Pulse Pulse Pulse Resp BP BP 08/11/22 16:21 36.4 C L 102 H 16 107/76 08/11/22 14:15 95 H 08/11/22 12:27 85 08/11/22 12:35 08/11/22 12:35 36.3 C L 85 20 116/85 08/11/22 12:24 08/11/22 12:28 36.3 C L 85 20 116/85 08/11/22 12:28 08/11/22 10:31 124/91 08/11/22 10:31 97 H 17 08/11/22 10:30 90 19 08/11/22 10:01 113/82 08/11/22 10:01 95 H 20 08/11/22 10:00 103 H 22 08/11/22 09:30 92 H 20 08/11/22 09:30 95/69 L 08/11/22 09:01 97/76 L 08/11/22 09:01 90 19 08/11/22 09:00 97 H 19 08/11/22 08:58 92/68 L 08/11/22 08:58 100 H 19 08/11/22 09:02 08/11/22 09:02 93 H 20 97/76 L 08/11/22 08:48 96 H 08/11/22 08:22 08/11/22 08:22 08/11/22 08:26 08/11/22 08:12 36.5 C 117 H 20 112/76 Pulse Ox Pulse Ox O2 Del Method O2 Del Method O2 Flow Rate O2 Flow Rate 08/11/22 16:21 95 Room Air 08/11/22 14:15 08/11/22 12:27 08/11/22 12:35 Room Air 08/11/22 12:35 97 Room Air 08/11/22 12:24 97 Room Air 05/15/23 12:28 97 Room Air 08/11/22 12:28 97 Room Air 0 08/11/22 10:31 08/11/22 10:31 97 Nasal Cannula 3 08/11/22 10:30 97 Nasal Cannula 3 08/11/22 10:01 08/11/22 10:01 99 Nasal Cannula 3 08/11/22 10:00 99 Nasal Cannula 3 08/11/22 09:30 94 Nasal Cannula 3 08/11/22 09:30 08/11/22 09:01 08/11/22 09:01 99 Nasal Cannula 3 08/11/22 09:00 99 Room Air 08/11/22 08:58 08/11/22 08:58 98 Room Air 08/11/22 09:02 99 Nasal Cannula 3 08/11/22 09:02 82 L Room Air 08/11/22 08:48 08/11/22 08:22 Room Air 08/11/22 08:22 Room Air 08/11/22 08:26 96 Room Air 08/11/22 08:12 97 Room Air Laboratory Results Abnormal Lab Results 08/11/22 08/11/22 08/11/22 08:39 08:39 08:39 WBC 18.05 H RBC 5.64 Hgb 13.8 L Hct 45.4 MCV 80.5 MCH 24.5 L MCHC 30.4 L RDW Std Deviation 51.6 H RDW Coeff of Sarah 18.9 H Plt Count 191 MPV 9.8 Immature Gran % (Auto) 0.9 Neut % (Auto) 84.8 Lymph % (Auto) 7.3 [place] % (Auto) 6.0 Eos % (Auto) 0.6 Baso % (Auto) 0.4 Neut # (Auto) 15.30 H Lymph # (Auto) 1.31 [place] # (Auto) 1.08 H Eos # (Auto) 0.11 Baso # (Auto) 0.08 Immature Gran # (Auto) 0.17 Sodium 139 Potassium 5.5 H Chloride 108 H Carbon Dioxide 23 Anion Gap 8 BUN 55 H Creatinine 2.66 H Est Cr Clr Drug Dosing 26.9 Est GFR ( Amer) 25.1 Est GFR (Non-Af Amer) 21.7 BUN/Creatinine Ratio 20.7 H Glucose 113 H Calcium 9.5 Phosphorus 4.6 Magnesium 2.5 H Total Bilirubin 0.7 AST 42 H ALT 37 Alkaline Phosphatase 75 Troponin I High Sens 25.9 H B-Natriuretic Peptide 808 H Total Protein 6.8 Albumin 3.9 Globulin 2.9 Albumin/Globulin Ratio 1.3 Lipase 51 Procalcitonin Urine Color Urine Appearance Urine pH Ur Specific [place] Urine Protein Urine Glucose (UA) Urine Ketones Urine Blood Urine Nitrite Urine Bilirubin Urine Urobilinogen Ur Leukocyte Esterase Urine WBC (Auto) Urine RBC (Auto) U Hyaline Cast (Auto) U Epithel Cells (Auto) Urine Bacteria (Auto) SARS-CoV-2, RNA, NAAT 08/11/22 08/11/22 08/11/22 08:39 10:52 12:31 WBC RBC Hgb Hct MCV MCH MCHC RDW Std Deviation RDW Coeff of Sarah Plt Count MPV Immature Gran % (Auto) Neut % (Auto) Lymph % (Auto) [place] % (Auto) Eos % (Auto) Baso % (Auto) Neut # (Auto) Lymph # (Auto) [place] # (Auto) Eos # (Auto) Baso # (Auto) Immature Gran # (Auto) Sodium Potassium 5.7 H Chloride Carbon Dioxide Anion Gap BUN Creatinine Est Cr Clr Drug Dosing Est GFR ( Amer) Est GFR (Non-Af Amer) BUN/Creatinine Ratio Glucose Calcium Phosphorus Magnesium Total Bilirubin AST ALT Alkaline Phosphatase Troponin I High Sens 23.4 H B-Natriuretic Peptide Total Protein Albumin Globulin Albumin/Globulin Ratio Lipase Procalcitonin < 0.05 Urine Color Urine Appearance Urine pH Ur Specific [place] Urine Protein Urine Glucose (UA) Urine Ketones Urine Blood Urine Nitrite Urine Bilirubin Urine Urobilinogen Ur Leukocyte Esterase Urine WBC (Auto) Urine RBC (Auto) U Hyaline Cast (Auto) U Epithel Cells (Auto) Urine Bacteria (Auto) SARS-CoV-2, RNA, NAAT NEGATIVE 08/11/22 14:00 WBC RBC Hgb Hct MCV MCH MCHC RDW Std Deviation RDW Coeff of Sarah Plt Count MPV Immature Gran % (Auto) Neut % (Auto) Lymph % (Auto) [place] % (Auto) Eos % (Auto) Baso % (Auto) Neut # (Auto) Lymph # (Auto) [place] # (Auto) Eos # (Auto) Baso # (Auto) Immature Gran # (Auto) Sodium Potassium Chloride Carbon Dioxide Anion Gap BUN Creatinine Est Cr Clr Drug Dosing Est GFR ( Amer) Est GFR (Non-Af Amer) BUN/Creatinine Ratio Glucose Calcium Phosphorus Magnesium Total Bilirubin AST ALT Alkaline Phosphatase Troponin I High Sens B-Natriuretic Peptide Total Protein Albumin Globulin Albumin/Globulin Ratio Lipase Procalcitonin Urine Color Yellow Urine Appearance Clear Urine pH 5.0 Ur Specific [place] 1.013 Urine Protein Trace H Urine Glucose (UA) Negative Urine Ketones Negative Urine Blood Negative Urine Nitrite Negative Urine Bilirubin Negative Urine Urobilinogen Negative Ur Leukocyte Esterase Negative Urine WBC (Auto) 0 Urine RBC (Auto) 0-4 U Hyaline Cast (Auto) 1-5 U Epithel Cells (Auto) 5-10 H Urine Bacteria (Auto) Negative SARS-CoV-2, RNA, NAAT Diagnostic Findings Echocardiogram obtained 07/11/2022: Ejection fraction 50-55%. Moderate LVH. Mildly to moderately dilated right ventricle with normal function. Slightly elevated trans aortic gradients. Severe pulmonary hypertension. Chest x-ray obtained the time admission revealed cardiomegaly with mild pulmonary vascular congestion ECG Additional Comments: EKG demonstrated atrial fibrillation with rapid ventricular response. Some nonspecific ST and T-wave changes in the anterior precordial leads PG Care Time/CCT Total # of Minutes Spent Total Time Spent with Patient: Total time spent is greater than 50% in coordination of care (as documented) at patient's floor/unit and/or counseling patient: Coding Level of Care Code 36572 INT INP/OBS CARE 3/75MIN Diagnoses Acute diastolic (congestive) heart failure I50.31 Elevated troponin R77.8 Dyspnea R06.00 Atrial fibrillation I48.91
[2022-08-11] MEDS ORDERED: BUMETANIDE 2 MG in SYRINGE 0 ML IV SCH (17:00)
--- NOTE | 2022-08-11 17:04 | Electrocardiogram Report ---
Test Reason : Blood Pressure : / mmHG Vent. Rate : 104 BPM Atrial Rate : 000 BPM P-R Int : 000 ms QRS Dur : 086 ms QT Int : 316 ms P-R-T Axes : 000 074 044 degrees QTc Int : 415 ms Atrial fibrillation with rapid ventricular response Nonspecific ST and T wave abnormality Abnormal ECG When compared with ECG of 10-JUL-2022 17:38, No significant change was found Confirmed by Taco Cabrera ([id number]) on 08/11/2022 5:04:18 PM Referred By: REFERRED SELF Confirmed By:Gomez Cabrera
[2022-08-11 17:22] LABS: BUN Creatinine Ratio 23.6 (10-20); Calcium 9.4 mg/dl (8.6-10.3); Creatinine Clr Calc Pharmacy 30.8 ml/min; Est GFR (African American) 28.9 ml/min; Est GFR (Non-African American) 24.9 ml/min; Potassium 5.1 mmol/L (3.5-5.1)
[2022-08-11] MEDS: METOPROLOL SUCC 50MG EXT REL TAB PO SCH (20:30)
[2022-08-11] MEDS: FERROUS SULFATE 325 MG TAB PO SCH (20:31)
[2022-08-11] MEDS: BUMETANIDE 2 MG in SYRINGE 0 ML IV SCH (20:32)
[2022-08-11] MEDS: CYCLOBENZAPRINE HCL 5 MG TAB PO PRN (20:57)
[2022-08-11] MEDS ORDERED: RIVAROXABAN 15 MG TAB PO SCH (21:00)
[2022-08-11 23:20] LABS: Total Protein Urine Random 32.3 mg/dl (0-11.9)
[2022-08-11 23:26] LABS: Creatinine Urine Random 71.9 mg/dl; Protein Creatinine Ratio Urine 0.4 (0-0.2)
[2022-08-12] MEDS: traMADol HCL 50 MG TABLET PO PRN ×2 (03:20→13:37)
[2022-08-12 06:37] LABS: Basophils # (auto) 0.07 K/uL (0-0.2); Basophils % (auto) 0.5 %; Eosinophils # (auto) 0.13 K/uL (0-0.50); Eosinophils % (auto) 0.9 %; Hematocrit (blood only) 44.7 % (42.0-52.0); Hemoglobin 13.7 g/dl (14.0-18.0); Immature Granulocytes # (auto) 0.11 K/uL (0.01-0.20); Immature Granulocytes % (auto) 0.8 %; Lymphocytes # (auto) 1.36 K/uL (1.2-3.4); Lymphocytes % (auto) 9.9 %; Mean Corpuscular Hemoglobin 24.4 pg (25.0-34.0); Mean Corpuscular Hgb Conc 30.6 g/dL (32.0-36.0); Mean Corpuscular Volume 79.7 fL (80.0-100.0); Mean Platelet Volume 10.2 fL (9.4-12.4); Monocytes # (auto) 0.78 K/uL (0.11-0.59); Monocytes % (auto) 5.7 %; Neutrophils # (auto) 11.35 K/uL (1.40-6.50); Neutrophils % (auto) 82.2 %; Platelet Count 188 K/uL (130-400); RDW Coefficient of Variation 19.3 % (11.5-14.5); RDW Standard Deviation 51.6 fL (36.4-46.3); Red Blood Count 5.61 M/uL (4.70-6.10)
[2022-08-12 06:56] LABS: Albumin Globulin Ratio 1.3 (0.9-2); Albumin Level 3.7 gm/dl (3.4-5.0); BUN Creatinine Ratio 22.9 (10-20); Calcium 9.4 mg/dl (8.6-10.3); Creatinine Clr Calc Pharmacy 31.2 ml/min; Est GFR (African American) 29.8 ml/min; Est GFR (Non-African American) 25.7 ml/min; Globulin 2.8 gm/dl (2.5-4.0); Magnesium 2.2 mg/dl (1.7-2.4); Potassium 4.1 mmol/L (3.5-5.1); Total Protein 6.5 gm/dl (6.0-8.3)
[2022-08-12 07:48] LABS: INR 1.2 (0.9-1.1)
[2022-08-12] MEDS: LIDOCAINE 5% 1 PATCH TD SCH (09:08)
[2022-08-12] MEDS: CALCITRIOL 0.25 MCG CAPSULE PO SCH (09:08)
[2022-08-12] MEDS: BUMETANIDE 2 MG in SYRINGE 0 ML IV SCH ×2 (09:08→21:04)
[2022-08-12] MEDS: FERROUS SULFATE 325 MG TAB PO SCH ×2 (09:08→21:06)
[2022-08-12] MEDS: allopurinoL 100 MG TAB PO SCH (09:08)
--- NOTE | 2022-08-12 10:47 | Cardiology Progress Note ---
Date of Service August 12, 2022 Assessment & Plan (1) Acute diastolic (congestive) heart failure: (2) Elevated troponin: (3) Dyspnea: (4) Atrial fibrillation: Plan 1. Dyspnea: No symptoms at rest. He has had ambulate this morning. Will get better understanding of his symptoms when he is ambulatory. As noted previously, he has several comorbidities which likely contribute to his sense of dyspnea. He affected a good diuresis yesterday and if his symptoms were related to pulmonary vascular congestion we should see some marked improvement. 2. Decompensated diastolic heart failure: He diuresis yesterday with some improvement in renal function. Think we will continue diuresis monitoring his electrolytes renal function closely. Continue beta-blockade and eplerenone 3. Atrial fibrillation: Permanent. No symptoms. Rate control mildly improved. 4. Aortic valve disease: Slightly elevated transvalvular gradients on the last echocardiogram, but otherwise normal function. Not likely contributing to any of his symptoms. 5. Pulmonary hypertension: Possibly a candidate for supplemental oxygen. Admission and Anticipated Discharge Date Admission Date: August 11, 2022 Subjective This morning patient claims to be feeling well. He denies any breathing difficulty at rest. He had some difficulty sleeping last the due to noise. He did use some supplemental oxygen last evening with his BiPAP. He has not been ambulatory yet today. Some pain in the right shoulder. Left arm cramping appears to have resolved. Review of Systems Review of Systems: Per HPI Physical Exam Physical Exam: The patient is alert and oriented. Mood and affect appeared normal. He answered all questions appropriately. Morbidly obese HEENT: Pupils are equal and reactive to light and accommodation. Extraocular movements are intact. The sclerae are anicteric. Neuro: Cranial nerves intact Chest: Well-healed sternotomy scar Lungs: Clear apices. Normal respiratory effort. Cardiac: Heart demonstrates an irregular rate and rhythm. Normal S1 and crisp S2. Systolic ejection murmur. Pulses: The patient has palpable radial pulses bilaterally that are equal in intensity Extremities: There was no evidence of hypoperfusion. There is no cyanosis or clubbing. Skin: I did not appreciate any rashes on examination today. Results & Data Vital Signs (Past 12 Hours) Vital Signs Temp Pulse Resp BP BP Pulse Ox O2 Del Method 08/12/22 07:25 36.5 C 86 20 102/65 96 Room Air 08/12/22 03:31 36.6 C 98 H 18 113/64 98 CPAP 08/11/22 23:24 36.4 C L 106 H 20 107/73 95 Room Air Laboratory Results Abnormal Lab Results 08/11/22 08/11/22 08/11/22 08:39 10:52 12:31 WBC RBC Hgb Hct MCV MCH MCHC RDW Std Deviation RDW Coeff of Sarah Plt Count MPV Immature Gran % (Auto) Neut % (Auto) Lymph % (Auto) [place] % (Auto) Eos % (Auto) Baso % (Auto) Neut # (Auto) Lymph # (Auto) [place] # (Auto) Eos # (Auto) Baso # (Auto) Immature Gran # (Auto) PT INR Sodium Potassium 5.7 H Chloride Carbon Dioxide Anion Gap BUN Creatinine Est Cr Clr Drug Dosing Est GFR ( Amer) Est GFR (Non-Af Amer) BUN/Creatinine Ratio Glucose Calcium Magnesium Total Bilirubin AST ALT Alkaline Phosphatase Troponin I High Sens 23.4 H Total Protein Albumin Globulin Albumin/Globulin Ratio Procalcitonin < 0.05 Urine Color Urine Appearance Urine pH Ur Specific [place] Urine Protein Urine Glucose (UA) Urine Ketones Urine Blood Urine Nitrite Urine Bilirubin Urine Urobilinogen Ur Leukocyte Esterase Urine WBC (Auto) Urine RBC (Auto) U Hyaline Cast (Auto) U Epithel Cells (Auto) Urine Bacteria (Auto) Ur Random Creatinine U Random Total Protein Protein/Creatinin Ratio SARS-CoV-2, RNA, NAAT NEGATIVE 08/11/22 08/11/22 08/11/22 14:00 14:00 16:35 WBC RBC Hgb Hct MCV MCH MCHC RDW Std Deviation RDW Coeff of Sarah Plt Count MPV Immature Gran % (Auto) Neut % (Auto) Lymph % (Auto) [place] % (Auto) Eos % (Auto) Baso % (Auto) Neut # (Auto) Lymph # (Auto) [place] # (Auto) Eos # (Auto) Baso # (Auto) Immature Gran # (Auto) PT INR Sodium 137 Potassium 5.1 Chloride 106 Carbon Dioxide 23 Anion Gap 8 BUN 56 H Creatinine 2.37 H Est Cr Clr Drug Dosing 30.8 Est GFR ( Amer) 28.9 Est GFR (Non-Af Amer) 24.9 BUN/Creatinine Ratio 23.6 H Glucose 102 H Calcium 9.4 Magnesium Total Bilirubin AST ALT Alkaline Phosphatase Troponin I High Sens Total Protein Albumin Globulin Albumin/Globulin Ratio Procalcitonin Urine Color Yellow Urine Appearance Clear Urine pH 5.0 Ur Specific [place] 1.013 Urine Protein Trace H Urine Glucose (UA) Negative Urine Ketones Negative Urine Blood Negative Urine Nitrite Negative Urine Bilirubin Negative Urine Urobilinogen Negative Ur Leukocyte Esterase Negative Urine WBC (Auto) 0 Urine RBC (Auto) 0-4 U Hyaline Cast (Auto) 1-5 U Epithel Cells (Auto) 5-10 H Urine Bacteria (Auto) Negative Ur Random Creatinine 71.9 U Random Total Protein 32.3 H Protein/Creatinin Ratio 0.4 H SARS-CoV-2, RNA, NAAT 08/11/22 08/12/22 08/12/22 20:58 05:56 05:56 WBC 13.80 H RBC 5.61 Hgb 13.7 L Hct 44.7 MCV 79.7 L MCH 24.4 L MCHC 30.6 L RDW Std Deviation 51.6 H RDW Coeff of Sarah 19.3 H Plt Count 188 MPV 10.2 Immature Gran % (Auto) 0.8 Neut % (Auto) 82.2 Lymph % (Auto) 9.9 [place] % (Auto) 5.7 Eos % (Auto) 0.9 Baso % (Auto) 0.5 Neut # (Auto) 11.35 H Lymph # (Auto) 1.36 [place] # (Auto) 0.78 H Eos # (Auto) 0.13 Baso # (Auto) 0.07 Immature Gran # (Auto) 0.11 PT Cancelled INR Cancelled Sodium Potassium 4.6 Chloride Carbon Dioxide Anion Gap BUN Creatinine Est Cr Clr Drug Dosing Est GFR ( Amer) Est GFR (Non-Af Amer) BUN/Creatinine Ratio Glucose Calcium Magnesium Total Bilirubin AST ALT Alkaline Phosphatase Troponin I High Sens Total Protein Albumin Globulin Albumin/Globulin Ratio Procalcitonin Urine Color Urine Appearance Urine pH Ur Specific [place] Urine Protein Urine Glucose (UA) Urine Ketones Urine Blood Urine Nitrite Urine Bilirubin Urine Urobilinogen Ur Leukocyte Esterase Urine WBC (Auto) Urine RBC (Auto) U Hyaline Cast (Auto) U Epithel Cells (Auto) Urine Bacteria (Auto) Ur Random Creatinine U Random Total Protein Protein/Creatinin Ratio SARS-CoV-2, RNA, NAAT 08/12/22 08/12/22 05:56 06:58 WBC RBC Hgb Hct MCV MCH MCHC RDW Std Deviation RDW Coeff of Sarah Plt Count MPV Immature Gran % (Auto) Neut % (Auto) Lymph % (Auto) [place] % (Auto) Eos % (Auto) Baso % (Auto) Neut # (Auto) Lymph # (Auto) [place] # (Auto) Eos # (Auto) Baso # (Auto) Immature Gran # (Auto) PT 13.0 H INR 1.2 H Sodium 140 Potassium 4.1 Chloride 106 Carbon Dioxide 26 Anion Gap 8 BUN 53 H Creatinine 2.31 H Est Cr Clr Drug Dosing 31.2 Est GFR ( Amer) 29.8 Est GFR (Non-Af Amer) 25.7 BUN/Creatinine Ratio 22.9 H Glucose 99 Calcium 9.4 Magnesium 2.2 Total Bilirubin 1.0 AST 29 ALT 29 Alkaline Phosphatase 76 Troponin I High Sens Total Protein 6.5 Albumin 3.7 Globulin 2.8 Albumin/Globulin Ratio 1.3 Procalcitonin Urine Color Urine Appearance Urine pH Ur Specific [place] Urine Protein Urine Glucose (UA) Urine Ketones Urine Blood Urine Nitrite Urine Bilirubin Urine Urobilinogen Ur Leukocyte Esterase Urine WBC (Auto) Urine RBC (Auto) U Hyaline Cast (Auto) U Epithel Cells (Auto) Urine Bacteria (Auto) Ur Random Creatinine U Random Total Protein Protein/Creatinin Ratio SARS-CoV-2, RNA, NAAT PG Care Time/CCT Total # of Minutes Spent Total Time Spent with Patient: Total time spent is greater than 50% in coordination of care (as documented) at patient's floor/unit and/or counseling patient: Coding Level of Care Code 11066 SUB INP/OBS CARE 2/35MIN Diagnoses Acute diastolic (congestive) heart failure I50.31 Elevated troponin R77.8 Dyspnea R06.00 Atrial fibrillation I48.91
[2022-08-12] MEDS: CYCLOBENZAPRINE HCL 5 MG TAB PO PRN (13:39)
--- NOTE | 2022-08-12 15:21 | Hospitalist Progress Note ---
Date of Service August 12, 2022 Assessment & Plan (1) Dyspnea: Plan: Exertional dyspnea has resolved. Due to CHF. (2) Acute diastolic (congestive) heart failure: Plan: Improved with intravenous Bumex. Monitor intake and output. Repeat chest x-ray again tomorrow, August 13. Cardiology consultation and recommendations appreciated (3) Hyperkalemia: Plan: Resolved. Potassium 5.5 on admission. Now 4.1. We will follow. Oral potassium supplements are on hold (4) Acute kidney injury superimposed on CKD: Plan: Creatinine 2.6 on admission. Now 2.3. Serial labs ordered. Monitor intake and output. (5) Aspiration into respiratory tract: Plan: This appears to be intermittent. Speech therapy has evaluated the patient. No video swallow recommended at this time. Lungs are clear. (6) Leukocytosis: Plan: No sign of overt infection. We will follow. (7) Elevated troponin: Plan: Probably supplydemand ischemia. No evidence of acute coronary syndrome. No chest pain. No acute EKG changes. (8) Atrial fibrillation: Plan: Chronic. S/P unsuccessful electrical cardioversion in 2020, follows with Dr. Izquierdo . Continue rate control measures and Xarelto. (9) Hypermagnesemia: Plan: Mildly elevated on admission. Serial labs. (10) Cramps, muscle, general: Plan: Noted to have right neck/RUE pain/cramping which began last night. Symptoms had been improved with steroid injection approximately 3 weeks ago. Will continue with heating pad, lidocaine patch, and home prn tramadol for now. (11) Obstructive sleep apnea: Plan: Stable. HS CPAP/Bipap ordered (12) Hypertension: Plan: Stable. Continue metoprolol Plan Hopeful discharge to home tomorrow, August 13 Admission and Anticipated Discharge Date Admission Date: August 11, 2022 Subjective Alert and oriented. No distress. Considerable diuresis with IV Lasix. He is now on room air. Chest x-ray however continues to show evidence of CHF. Hopefully he can go home tomorrow, August 13. Creatinine improved to 2.3. Cardiology entry noted. Potassium improved to 4.1. Oral potassium supplementation remains on hold. Review of Systems Review of Systems: Constitutional-no fever or chills ENT-no blurred vision, no double vision, no epistaxis, no sore throat Respiratory-no cough, no wheezing. Exertional dyspnea has resolved Cardiac-no palpitations, no chest pain, no syncope GI-no nausea, vomiting, diarrhea, melena, hematochezia -no urinary retention, no urinary incontinence, no dysuria, no hematuria Musculoskeletal-no joint pain, no muscle tenderness Skin-no bruising, no rashes, no pruritus Neuro-no isolated weakness, no paresthesia, no weakness Psych-no depression, no anxiety Physical Exam Physical Exam: General-alert and oriented x3, no fevers, no chills HEENT-head atraumatic and normocephalic, pupils equal and reactive to light, extraocular muscles intact Neck-no lymphadenopathy or thyromegaly, trachea midline Chest-bibasilar inspiratory rales. No wheezing. Cardiac-regular rate and rhythm, normal S1 and S2 Abdomen-normal bowel sounds, nontender, no hepatosplenomegaly Extremities-no cyanosis, clubbing, or edema Neuro-cranial nerves II through XII intact, motor and sensory function within normal limits, strength symmetrical , no focal deficits Psych-normal affect, normal mood Results & Data Results & Data Vital Signs (Past 12 Hours) Vital Signs Temp Pulse Resp BP Pulse Ox O2 Del Method 08/12/22 14:39 36.4 C L 93 H 18 110/72 97 CPAP 08/12/22 12:14 Room Air, BiPAP 08/12/22 12:00 36.5 C 108 H 20 116/78 92 Room Air 08/12/22 07:25 36.5 C 86 20 102/65 96 Room Air 08/12/22 03:31 36.6 C 98 H 18 113/64 98 CPAP Laboratory Results 08/12/22 05:56 08/12/22 05:56 PG Care Time/CCT Total # of Minutes Spent Total Time Spent with Patient: Total time spent is greater than 50% in coordination of care (as documented) at patient's floor/unit and/or counseling patient: Coding Level of Care Code 81831 SUB INP/OBS CARE 3/50MIN Diagnoses Dyspnea R06.00 Acute diastolic (congestive) heart failure I50.31 Hyperkalemia E87.5 Acute kidney injury superimposed on CKD N17.9; N18.9 Aspiration into respiratory tract T17.908A Leukocytosis D72.829 Elevated troponin R77.8 Atrial fibrillation I48.91 Hypermagnesemia E83.41 Cramps, muscle, general R25.2 Obstructive sleep apnea G47.33 Hypertension I10
[2022-08-12] MEDS ORDERED: RIVAROXABAN 15 MG TAB PO SCH (16:30)
[2022-08-12] MEDS: METOPROLOL SUCC 50MG EXT REL TAB PO SCH ×2 (21:05→23:12)
--- NOTE | 2022-08-13 07:23 | XRay Report ---
XR chest 1V portable HISTORY: 82 years-old Male CHF acute shortness of breath COMPARISON: 08/11/2022 TECHNIQUE: AP view of the chest FINDINGS: Cardiac silhouette is enlarged. Prior median sternotomy with cardiac valvular prosthesis. No pneumoth orax, pleural effusion, airspace consolidation or pulmonary edema. Bones appear grossly intact. IMPRESSION: Cardiomegaly without overt pulmonary edema. ACT 112: Negative or not required by law. The above report was generated using voice recognition software. It may contain grammatical, syntax o r spelling errors. Electronically signed by: Pedro Pablo Goode M.D. 08/13/2022 7:21 AM
[2022-08-13] MEDS: CALCITRIOL 0.25 MCG CAPSULE PO SCH (09:23)
[2022-08-13] MEDS: allopurinoL 100 MG TAB PO SCH (09:23)
[2022-08-13] MEDS: BUMETANIDE 2 MG in SYRINGE 0 ML IV SCH (09:23)
[2022-08-13] MEDS: CYCLOBENZAPRINE HCL 5 MG TAB PO PRN (09:23)
[2022-08-13] MEDS: FERROUS SULFATE 325 MG TAB PO SCH (09:24)
[2022-08-13] MEDS: LIDOCAINE 5% 1 PATCH TD SCH (09:24)
[2022-08-13 09:25] LABS: Basophils # (auto) 0.06 K/uL (0-0.2); Basophils % (auto) 0.5 %; Eosinophils # (auto) 0.09 K/uL (0-0.50); Eosinophils % (auto) 0.7 %; Hematocrit (blood only) 44.7 % (42.0-52.0); Hemoglobin 13.9 g/dl (14.0-18.0); Immature Granulocytes # (auto) 0.08 K/uL (0.01-0.20); Immature Granulocytes % (auto) 0.6 %; Lymphocytes # (auto) 1.16 K/uL (1.2-3.4); Lymphocytes % (auto) 9.1 %; Mean Corpuscular Hemoglobin 24.6 pg (25.0-34.0); Mean Corpuscular Hgb Conc 31.1 g/dL (32.0-36.0); Mean Platelet Volume 10.5 fL (9.4-12.4); Monocytes # (auto) 0.73 K/uL (0.11-0.59); Monocytes % (auto) 5.7 %; Neutrophils # (auto) 10.66 K/uL (1.40-6.50); Neutrophils % (auto) 83.4 %; Platelet Count 200 K/uL (130-400); RDW Standard Deviation 50.4 fL (36.4-46.3); Red Blood Count 5.66 M/uL (4.70-6.10); White Blood Count 12.78 K/ul (4.8-10.8)
[2022-08-13 09:50] LABS: Albumin Globulin Ratio 1.3 (0.9-2); Albumin Level 3.7 gm/dl (3.4-5.0); BUN Creatinine Ratio 21.7 (10-20); Bilirubin,Total 1.1 mg/dl (0.2-1.0); Calcium 9.6 mg/dl (8.6-10.3); Creatinine Clr Calc Pharmacy 29.5 ml/min; Est GFR (African American) 28.5 ml/min; Est GFR (Non-African American) 24.6 ml/min; Globulin 2.8 gm/dl (2.5-4.0); Magnesium 2.1 mg/dl (1.7-2.4); Potassium 4.6 mmol/L (3.5-5.1); Total Protein 6.5 gm/dl (6.0-8.3)
[2022-08-13 10:04] LABS: INR 1.1 (0.9-1.1); Prothrombin Time 12.4 Seconds (9.0-12.0)
--- NOTE | 2022-08-13 10:35 | Cardiology Progress Note ---
Date of Service August 13, 2022 Assessment & Plan (1) Acute diastolic (congestive) heart failure: (2) Elevated troponin: (3) Dyspnea: (4) Atrial fibrillation: Plan 1. Dyspnea: This seems much improved. Some of his symptoms were clearly related to pulmonary vascular congestion. Also contribution from his morbid obesity, deconditioning and likely restrictive lung disease. 2. Decompensated diastolic heart failure: Much improved. He is affecting a good diuresis on intravenous bumetanide. Renal function appears stable. I think we can continue this regimen and consider switching to oral in another day or so. 3. Atrial fibrillation: Permanent. No symptoms. Rate control adequate if not optimal. 4. Aortic valve disease: Slightly elevated transvalvular gradients on the last echocardiogram, but otherwise normal function. Not likely contributing to any of his symptoms. 5. Pulmonary hypertension: Using supplemental oxygen with BiPAP at nighttime. Admission and Anticipated Discharge Date Admission Date: August 11, 2022 Subjective This morning patient claimed he feeling well. He was ambulatory to the bathroom and back without dyspnea. This is a marked improvement from admission. No dizziness or lightheadedness. No symptoms at rest. No chest pain or sense of palpitation. Review of Systems Review of Systems: Per HPI Physical Exam Physical Exam: The patient is alert and oriented. Mood and affect appeared normal. He answered all questions appropriately. Morbidly obese HEENT: Pupils are equal and reactive to light and accommodation. Extraocular movements are intact. The sclerae are anicteric. Neuro: Cranial nerves intact Chest: Well-healed sternotomy scar Lungs: Clear to auscultation. No expiratory wheezing. Normal respiratory ef fort Cardiac: Heart demonstrates an irregular rate and rhythm. Normal S1 and crisp S2. Systolic ejection murmur. Pulses: The patient has palpable radial pulses bilaterally that are equal in intensity Extremities: There was no evidence of hypoperfusion. There is no cyanosis or clubbing. No lower extremity edema Skin: I did not appreciate any rashes on examination today. Results & Data Vital Signs (Past 12 Hours) Vital Signs Temp Pulse Pulse Resp BP BP Pulse Ox 08/13/22 07:56 36.5 C 93 H 18 123/85 98 08/13/22 00:00 106 H 08/13/22 03:10 36.9 C 79 20 102/70 94 08/12/22 23:00 36.9 C 109 H 18 103/74 95 O2 Del Method 08/13/22 07:56 CPAP 08/13/22 00:00 08/13/22 03:10 CPAP 08/12/22 23:00 Room Air Laboratory Results Abnormal Lab Results 08/13/22 08/13/22 08/13/22 08:43 08:43 08:43 WBC 12.78 H RBC 5.66 Hgb 13.9 L Hct 44.7 MCV 79.0 L MCH 24.6 L MCHC 31.1 L RDW Std Deviation 50.4 H RDW Coeff of Sarah 19.0 H Plt Count 200 MPV 10.5 Immature Gran % (Auto) 0.6 Neut % (Auto) 83.4 Lymph % (Auto) 9.1 Caswell % (Auto) 5.7 Eos % (Auto) 0.7 Baso % (Auto) 0.5 Neut # (Auto) 10.66 H Lymph # (Auto) 1.16 L Caswell # (Auto) 0.73 H Eos # (Auto) 0.09 Baso # (Auto) 0.06 Immature Gran # (Auto) 0.08 PT 12.4 H INR 1.1 Sodium 141 Potassium 4.6 Chloride 102 Carbon Dioxide 31 Anion Gap 8 BUN 52 H Creatinine 2.40 H Est Cr Clr Drug Dosing 29.5 Est GFR ( Amer) 28.5 Est GFR (Non-Af Amer) 24.6 BUN/Creatinine Ratio 21.7 H Glucose 170 H Calcium 9.6 Magnesium 2.1 Total Bilirubin 1.1 H AST 25 ALT 27 Alkaline Phosphatase 78 Total Protein 6.5 Albumin 3.7 Globulin 2.8 Albumin/Globulin Ratio 1.3 PG Care Time/CCT Total # of Minutes Spent Total Time Spent with Patient: Total time spent is greater than 50% in coordination of care (as documented) at patient's floor/unit and/or counseling patient: Coding Level of Care Code 45506 SUB INP/OBS CARE 2/35MIN Diagnoses Acute diastolic (congestive) heart failure I50.31 Elevated troponin R77.8 Dyspnea R06.00 Atrial fibrillation I48.91
--- NOTE | 2022-08-13 11:51 | Discharge Summary ---
Date of Service August 13, 2022 Admission HPI Per Admitting Provider Kyler Antoine is an 82-year-old male with past medical history of diastolic CHF, longstanding dyspnea on exertion NYHA class II3, bioprosthetic AVR, paroxysmal A-fib (on Xarelto), morbid obesity, chronic venous insufficiency, and CKD who presented to the [facility] ED on 08/11/22 with increased SOB from baseline and left arm cramping. In the ED the patient was found to be mildly hypotensive at 92/68, hypoxic at 82% on RA, tachycardic at 117, and afebrile. Labs were significant for a leukocytosis of 18 with left shift of 15, cr of 2.66 (baseline is near 2.27), potassium of 5.5, mag of 2.5, BNP of 808 (up from 416 as of 07/10), initial high sen trop of 25.9. CXR shows cardiomegaly with mild pulmonary vascular congestion and BL trace pleural effusions. Of note, the patient reportedly took additional doses of his KCL, magnesium, and iron supplements prior to arrival due to his cramping. Prior to admission the patient was given 2 mg IV bumex. Per chart review, the patient was recently admitted to [facility] from 07/10- 07/12 for dyspnea thought to be due to acute diastolic CHF from persistent afib RVR at home. Cardiology was consulted, the patient initially underwent IV diuresis but was transitioned back to his home oral regimen prior to discharge. His beta trinity regimen was adjusted from succinate 50 mg BID to 100 mg Hs. He was also discharged with a course of amoxicillin for dental pain. At the time of the exam the patient was sitting on the side of his bed in no acute distress with his sitting bedside. He states that since his last admission he has been having ongoing issues with progressive SERVIN and increased HR at home. His dyspnea only improved for approximately 4 days after his last discharge, then started to progress. He has been taking most medications as prescribed including his metoprolol, bumex, eplerenone, and xarelto. He ran out of his prn metolazone approximately 4 days ago. Over the weekend he and his family went camping, he was without his HS Bipap on Thursday night but has used it all other nights since. When asked about his diet, his explains that they eat out almost every day and he has a hard time monitoring his sodium restriction. He has a long history of cervical stenosis with upper extremity radicular symptoms. He had a steroid injection on the right side of his neck approximately 3 weeks ago. It initially worked, but he had an acute exacerbation of right neck/right UE pain and cramping which began last night. His symptoms are exacerbated when sitting or lying in certain positions. He took additional doses of his PO KCL, magnesium and iron last night and this am as he thought his electrolytes may be low and causing his symptoms. he notes that he has been having progressive issues with intermittent aspiration while drinking liquids. This has been getting worse and he notes it is often the worst at the beginning of the day. He denies aspiration of solids. He did not have any of his am medications prior to arrival. He denies recent fever, chills, chest pain, cough, abd pain, nausea, vomiting, diarrhea, dysuria, hematuria, melena, constipation, and recent trauma. He does feel as though he has gained some weight and has additional LE swelling compared to baseline. He is a full code and wishes for his to make medical decisions for him if he cannot make them himself. Of note, the ED staff indicated that the patient's SpO2 fell while he was asleep in the ED. During my exam he was stable on RA. Please refer to Dr. Osborn's attestation for any changes to the treatment plan Principal Diagnosis Acute on chronic diastolic CHF, hyperkalemia, acute on chronic kidney disease, elevated troponin without acute coronary syndrome, aspiration of gastric contents without pneumonia Discharge Exam General-alert and oriented x3, no fevers, no chills HEENT-head atraumatic and normocephalic, pupils equal and reactive to light, extraocular muscles intact Neck-no lymphadenopathy or thyromegaly, trachea midline Chest-bibasilar inspiratory rales have resolved. No wheezing. Cardiac-regular rate and rhythm, normal S1 and S2 Abdomen-normal bowel sounds, nontender, no hepatosplenomegaly Extremities-no cyanosis, clubbing, or edema Neuro-cranial nerves II through XII intact, motor and sensory function within normal limits, strength symmetrical , no focal deficits Psych-normal affect, normal mood Discharge Data Allergies Allergy/AdvReac Type Severity Reaction Status Date / Time Iodinated Contrast Media Allergy Unknown Verified 07/16/22 12:51 [Iodinated Contrast- Oral and IV Dye] Consultations 08/11/22 11:09 ED Decision to Admit Stat 08/11/22 11:50 Consult Cardiology Routine Hospital Course (1) Dyspnea: Exertional dyspnea has resolved. Due to CHF. (2) Acute diastolic (congestive) heart failure: Resolved with aggressive diuresis with intravenous Bumex. Monitor intake and output. Repeat chest x-ray today, August 13, looks much better. Cardiology consultation and recommendations appreciated (3) Hyperkalemia: Resolved. Potassium 5.5 on admission. Now 4.6. Serial labs. Oral potassium supplements are on hold while hospitalized and dosage will be decreased at discharge (4) Acute kidney injury superimposed on CKD: Creatinine 2.6 on admission. Now 2.4. Serial labs ordered. Monitor intake and output. (5) Aspiration into respiratory tract: This appears to be intermittent. Speech therapy has evaluated the patient. No video swallow recommended at this time. Lungs are clear. No evidence of aspiration pneumonia (6) Leukocytosis: No sign of overt infection. We will follow. (7) Elevated troponin: Probably supplydemand ischemia. No evidence of acute coronary syndrome. No chest pain. No acute EKG changes. (8) Atrial fibrillation: Chronic. S/P unsuccessful electrical cardioversion in 2020, follows with Dr. Izquierdo . Continue rate control measures and Xarelto. (9) Hypermagnesemia: Mildly elevated on admission. Serial labs. (10) Cramps, muscle, general: Noted to have right neck/RUE pain/cramping which began last night. Symptoms had been improved with steroid injection approximately 3 weeks ago. Treated with heating pad, lidocaine patch, and home prn tramadol while hospitalized. (11) Obstructive sleep apnea: Stable. HS CPAP/Bipap ordered (12) Hypertension: Stable. Continue metoprolol Plan l discharge to home today, August 13 Total Time Total Time Spent Total Time Spent (In Minutes): 40 minutes Discharge Plan Discharge Items Patient Disposition: Home - Self-Care Reason For Visit: SOB Discharge Diagnosis: Acute on chronic diastolic CHF, aspiration of gastric contents without pneumonia. Supply demand mismatch producing elevated troponin without acute coronary syndrome. Hyperkalemia Activity: Resume your previous activity Non-emergency contact: Primary Care Provider Call non-emergency contact if: you have any medication questions Follow-up/Referrals: Una Ramirez PA-C [Physician Salesperson [employer]] - 08/21/22 10:30 am (Congestive Heart Failure Program Appointment Information Early follow up is essential to managing your heart failure. An appointment has been scheduled for you with the [facility] Heart Failure Program within 7 days of discharge. Anticipate this visit to be 30-60 minutes long. Please expect a pre k special education teacher phone call from one of our nurses approximately 48 hours from discharge. They will also be placing an order for lab work to be completed 1-2 days prior to your heart failure follow up appointment. Please be sure to have this done so we can go over the results when you come in. Office Location The cardiology office building is located in front of the hospital at [address] Bring the following with you to your follow-up doctor appointments: Please bring your daily weight log any discharge paperwork all of your medication bottles with you to this visit. ) Zackery Cochran, DO [Primary Care Provider] - Diet: Regular and Heart Healthy Addtl Attending Provider Instructions: Potassium dosage has been decreased Pending Studies at Discharge: No Stand-Alone Forms: My [facility], Smoking Cessation Medications and DC Order Prescriptions: New potassium chloride 10 mEq capsule, extended release 10 meq PO BID Qty: 60 0RF Continued eplerenone 25 mg tablet 25 mg PO QAM Qty: 90 3RF allopurinol 100 mg tablet 100 mg PO QAM Qty: 90 3RF cyclobenzaprine 5 mg tablet 5 mg PO BID PRN (Reason: muscle pain/stiffness) Qty: 60 3RF amoxicillin 500 mg tablet 2,000 mg PO ONCE Patient Comments: 2,000 mg PO 1 hour prior to dental procedure.; Rx Instructions: TAKE 4 CAPSULES BY MOUTH 1 HOUR PRIOR TO DENTAL WORK calcitriol 0.25 mcg capsule 0.5 mcg PO QAM Qty: 90 3RF tramadol 50 mg tablet 50 mg PO BID PRN (Reason: Pain) Qty: 60 0RF cyanocobalamin (vitamin B-12) 1,000 mcg/mL Solution 1,000 mcg IM Q90D docusate sodium 100 mg Capsule 100 mg PO QAM PRN (Reason: Constipation) rivaroxaban 15 mg tablet 15 mg PO HS metolazone 5 mg tablet See Rx Instructions .ROUTE .COMPLEX Rx Instructions: take 1 tablet by mouth once daily as directed if needed for WEIGHT GAIN ferrous sulfate 325 mg (65 mg iron) Tablet 325 mg PO BID magnesium 250 mg Tablet 250 mg PO DAILY multivitamin with iron Tablet 1 tab PO DAILY cholecalciferol (vitamin D3) [Vitamin D3] 50 mcg (2,000 unit) Capsule 50 mcg PO DAILY bumetanide 2 mg tablet 2 mg PO BID metoprolol succinate 50 mg tablet extended release 24 hr 100 mg PO HS Qty: 60 6RF Discontinued potassium citrate 10 mEq (1,080 mg) Tablet Extended Release 20 meq PO BID Discharge Orders: Discharge Order- CHF (Routine); Ordered 08/13/22 Ordered By: Glenn Rodriguez Admission Data Admit Date/Time: 08/11/22 11:26 Attending Provider: Glenn Rodriguez Admit Provider: Bernabe Osborn Primary Care Provider: Zackery Cochran Other Providers: Lloyd Izquierdo ; Guicho Curry ; Bernabe Osborn ; Taco Cabrera Coding Level of Care Code 39388 INP/OBS DISCH >30 MIN Diagnoses Dyspnea R06.00 Acute diastolic (congestive) heart failure I50.31 Hyperkalemia E87.5 Acute kidney injury superimposed on CKD N17.9; N18.9 Aspiration into respiratory tract T17.908A Leukocytosis D72.829 Elevated troponin R77.8 Atrial fibrillation I48.91 Hypermagnesemia E83.41 Cramps, muscle, general R25.2 Obstructive sleep apnea G47.33 Hypertension I10
== END 2022-08-13 14:00 | disposition home or self-care (01) | DRG 291 ==
LOC: ED 08:06 → SUATTDRO 11:26 → 2W 11:26

== ENCOUNTER 2023-09-14 15:27 | Inpatient (IN) ==
--- NOTE | 2023-09-14 15:39 | ED Triage Note ---
Date of Service September 14, 2023 Provider in Triage Author: Yaneli Mccray History of Present Illness This patient was briefly evaluated while in triage. An abbreviated physical exam was performed. This patient is a 83-year-old Male who presents to the ED for evaluation of increased shortness or breath and leg swelling. Uses home O2, has been having low oxygen levels. No chest pain. Physical Exam CONSTITUTIONAL: No acute distress. Well appearing. RESPIRATORY: Diminished throughout to auscultation bilaterally. Equal expansion bilaterally. CARDIOVASCULAR: Tachycardic, irregularly irregular rate and rhythm. Bilateral peripheral edema. GASTROINTESTINAL: Soft. NEUROLOGIC: Alert and oriented X 4 with normal affect. Initial orders for labs and / or imaging were placed and patient was placed in the waiting area until a bed is available. Please see further documentation for the full ED course.
--- NOTE | 2023-09-14 16:11 | Emergency Department Note ---
Impression & Plan Diastolic CHF, acute on chronic, Atrial fibrillation, Chronic kidney disease, stage 4 (severe), SERVIN (dyspnea on exertion) ED Provider Note Provider: Hector Bowden MD DATE OF SERVICE: 09/14/2023 CHIEF COMPLAINT: Shortness of breath HISTORY OF PRESENT ILLNESS: Patient is a 83-year-old gentleman history of diastolic heart failure, pulm hypertension, A-fib on Xarelto, CKD, diabetes, and right leg wound presenting here today with after discussion with outpatient cardiology office regarding ongoing issues and worsening shortness of breath the last several days. States he was in 60s anniversary over the weekend so push through for that. States his weights been fairly steady around 252 pounds. States has been using his diuretic. Does states that a bit of dietary indiscretion with corndogs and salt recently but not horribly so. Denies fever or significant cough. Normally on 2 L of oxygen. Denies any chest pain. States he has some chronic swelling of the lower legs but this is not much worse than normal. No falls. A week or 2 ago may be very brief transient episode of near syncope when standing up but none since. 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 Follows in the heart failure clinic and discussed with them and came here for evaluation due to his shortness of breath and dyspnea on exertion. States in particular given his home oxygen he can only go maybe 12 or 15 feet before he has to stop and becomes tachypneic. Patient states he is chronically in A-fib. PAST MEDICAL HISTORY: As noted above MEDICATIONS: Reviewed home medications SOCIAL HISTORY: Non-smoker, PHYSICAL EXAM: GENERAL: alert and oriented in no acute distress on stretcher Head: normocephalic and atraumatic EYES: No injection, discharge or icterus. NECK: Trachea midline. ENT: Mucous membranes pink and moist. LUNGS: Airway patent. No retractions. Breath sounds clear with superiorly with some faint crackles in the the bases HEART: Irregular irregular rate and rhythm. No chest wall tenderness ABDOMEN: Soft and non-tender, without guarding or rebound. SKIN: Acyanotic, warm, dry, without rashes EXTREMITIES: Without tenderness bandaging to the right salmeron with 1+ edema of the lower extremities but no significant weeping or tenderness appreciable NEUROLOGICAL: No focal deficits. No aphasia. No facial droop or slurred speech. Ambulatory but becomes more short of breath with ambulation. EK beats per atrial fibrillation rapid ventricular response. Some diffuse T wave inversions but no acute ST segment elevation and a QTc of 512. CONTINUOUS CARDIAC MONITORING: was ordered and showed a heart rate of 80s-100s bpm in atrial fibrillation Patient's laboratory studies and imaging reviewed. Differential includes Reactive airway disease, pneumonia, pneumothorax, COPD, CHF, infections, cardiac ischemia, pulmonary embolism, musculoskeletal, gastrointestinal, as well as other pathologies. IMPRESSION/MEDICAL DECISION MAKING: Extensive past medical history and cardiac history including diastolic CHF and pulmonary hypertension. Currently on 2 L of oxygen. Somewhat tachypneic and hypoxic in triage on this. Not distress on 4 L. Denies infectious symptoms or fever. Will obtain blood work and chest x-ray. No significant swelling of the legs but has history of fluid overload and again pulmonary hypertension as well as his fairly severe CKD. EKG shows A-fib and has a history of similar. Is on metoprolol and diltiazem. Could possibly be suffering some shortness of breath related to this versus heart failure/pulm hypertension with lower suspicion for VTE with his anticoagulation or pneumonia given his lack of infectious symptoms. Blood obtained here without leukocytosis and minimal anemia of 11.4. Slightly off of previous but he denies any other bleeding symptoms. Not significantly low. CKD may be just slightly worse from a baseline around 2.4-2.8 today. No other severe hyperkalemia or electrolyte abnormalities noted. BUN 48. Troponin not elevated. Chest x-ray per radiology with some cardiomegaly and mild pulmonary edema and slight effusion of the right base. Discussed the patient bedside. Do feel that he is fluid overload particularly related to review of the chest x-ray. Will give some additional Bumex which he is due for an evening dose as well as dose metolazone here to promote some diuresis. Does take this combination occasionally at home. Discussed with him staying for monitor diuresis given his significant CKD and he was in agreement. Hospitalist team contacted. DIAGNOSIS: SERVIN, acute diastolic CHF exacerbation, CKD, permanent A-fib DISPOSITION: Hospitalist will evaluate Patient was agreeable with this plan. Past Med/Surg History Problem List (Updated 09/14/23 @ 19:34 by Jared Curry PA-C) History of aortic valve disease s/p AVR (2006) History of renal cell carcinoma SERVIN (dyspnea on exertion) (Acute) Diastolic CHF, acute on chronic (Acute) Hypokalemia Chronic venous insufficiency (Chronic) Traumatic open wound of right lower leg (Acute) Atrial fibrillation with rapid ventricular response (Acute) Wound of right leg Class 3 severe obesity due to excess calories with body mass index (BMI) of 40.0 to 44.9 in adult Gynecomastia, male Family history of breast cancer gene mutation in first degree relative Hx of gynecomastia Left breast lump Nocturnal hypoxemia Complex sleep apnea syndrome Chronic kidney disease, stage 4 (severe) (Acute) Diabetes mellitus Atrial fibrillation (Chronic) Hypertension (Chronic) Obstructive sleep apnea (Chronic) BIPAP Shortness of breath Acute diastolic (congestive) heart failure Hypermagnesemia Iron deficiency anemia Arm pain Hand numbness Foraminal stenosis of cervical region Vitamin D deficiency Anxiety (Acute) Venous insufficiency (chronic) (peripheral) Morbid obesity with BMI of 40.0-44.9, adult H/O aortic valve replacement Gout Microcytic anemia Chronic low back pain with right-sided sciatica B12 deficiency Chronic diastolic CHF (congestive heart failure) (Chronic) Hyperlipidemia (Chronic) Medical History Aspiration into respiratory tract Acute kidney injury superimposed on CKD History of aortic valve disease s/p AVR (2006) Morbid obesity History of anxiety Hx of gout Hx of rotator cuff tear Difficulty with raising arms without extreme pain, currently in PT Hx of osteoarthritis Hx of impacted cerumen History of COVID-19 01/2021 > "mild" cold symptoms, resolved Prediabetes Kidney stones Hx x7 Renal cell adenocarcinoma s/p nephrectomy Chronic kidney disease, stage III (moderate) CKD (chronic kidney disease), stage III Surgical History Hx of cardiac catheterization 11/2020 > no stents History of total bilateral knee replacement History of esophagogastroduodenoscopy (EGD) Hx of colonoscopy Hx of tonsillectomy Hx of cystoscopy w/stone basketing History of left nephrectomy History of spinal surgery Aortic valve replaced bioprosthesis, 2006 History of gastric bypass History of cholecystectomy Family History Mother Breast cancer Lung disease Grandmother (Maternal) Breast cancer Aunt Breast cancer Sister Breast cancer Father Myocardial infarction Arthritis Denies family history of Ovarian cancer Prostate cancer Colorectal cancer Social History (Updated 08/31/23 @ 09:09 by Cornelia Syed RN) Smoking Status: Never smoker Second Hand Exposure: Yes (as a child-parents were chain smokers); Do You Dip or Chew Tobacco: No; Hx Alcohol Use: No Hx Substance Use: No Preferred Language: Palestinian Communication Ability: Effective Visual Impairment: No Limitations Hearing Ability: Normal 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 Beliefs That Will Affect Care: None marital status: Current Living Situation: Spouse and Family Current Living Situation Comment: with current occupational status: retired 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 Home Meds Home Medications Medication Instructions Recorded Confirmed amoxicillin 500 mg tablet 2,000 mg PO DIRECTED PRN 1 HOUR 11/16/18 09/14/23 PRIOR TO DENTAL PROCEDURES docusate sodium 100 mg capsule 100 mg PO QAM PRN Constipation 05/03/20 09/14/23 cholecalciferol (vitamin D3) 50 50 mcg PO DAILY 07/10/22 09/14/23 mcg (2,000 unit) capsule (Vitamin D3) magnesium 250 mg tablet 250 mg PO DAILY 07/10/22 09/14/23 Previous Rx's Medication Instructions Recorded cyanocobalamin (vitamin B-12) 1,000 mcg IM Q90D #30 mL 09/23/22 1,000 mcg/mL injection solution metolazone 5 mg tablet 5 mg PO DAILY PRN weight gain #30 10/23/22 tabs allopurinol 100 mg tablet 100 mg PO QAM #90 tabs 01/20/23 bumetanide 2 mg tablet 3 mg (1.5 x 2 mg) PO DAILY 90 days 01/20/23 #135 tabs tamoxifen 20 mg tablet 20 mg PO DAILY #90 tabs 01/21/23 rivaroxaban 15 mg tablet 15 mg PO HS #90 tabs 02/09/23 diltiazem HCl 120 mg capsule,24 120 mg PO DAILY #30 caps 03/19/23 hr,extended release potassium chloride 10 mEq 10 meq PO BID #180 caps 04/02/23 capsule,extended release eplerenone 25 mg tablet 25 mg PO QAM #90 tabs 05/04/23 Portable Oxygen #1 ea 05/25/23 metoprolol succinate 200 mg 200 mg PO HS #30 tabs 06/01/23 tablet,extended release 24 hr cyclobenzaprine 5 mg tablet 5 mg PO BID PRN muscle 07/02/23 pain/stiffness #60 tabs calcitriol 0.25 mcg capsule 0.5 mcg (2 x 0.25 mcg) PO QAM #180 08/11/23 caps mupirocin 2 % topical ointment 1 applic topical TID #22 grams 08/18/23 tramadol 50 mg tablet 50 mg PO BID PRN Pain #60 tabs 08/18/23 Results & Data (ED) Vital Signs Vital Signs - 24 hr 09/14/23 15:30 09/14/23 17:22 09/14/23 17:46 Temperature 36.5 C Temperature Source Oral Pulse Rate 130 H Pulse Rate [Apical] 87 Respiratory Rate 28 H Respiratory Effort / Characteristics SOB on Exertion Respiratory Depth Shallow Blood Pressure 116/69 Blood Pressure [Right Arm] 115/85 Blood Pressure Mean 84 Blood Pressure Mean [Right Arm] 95 Pulse Oximetry 89 L 100 100 Oxygen Delivery Method Nasal Cannula Nasal Cannula Nasal Cannula Oxygen Flow Rate 2 4 4 Sepsis Recent Fever Within 48 Hours No Sepsis New/Unexplained Change in Mental Status No Sepsis Action Taken by Nursing No Action Required Oxygen Flow Rate - Titration 2 Pulse Oximetry Post Tiitration 98 09/14/23 19:00 09/14/23 19:01 09/14/23 19:03 Temperature Temperature Source Pulse Rate 85 Pulse Rate [Apical] 90 Respiratory Rate 22 Respiratory Effort / Characteristics Respiratory Depth Blood Pressure 124/80 Blood Pressure [Right Arm] Blood Pressure Mean 111 Blood Pressure Mean [Right Arm] Pulse Oximetry 95 Oxygen Delivery Method Nasal Cannula Oxygen Flow Rate 2 Sepsis Recent Fever Within 48 Hours Sepsis New/Unexplained Change in Mental Status Sepsis Action Taken by Nursing Oxygen Flow Rate - Titration Pulse Oximetry Post Tiitration Laboratory Data 09/14/23 15:52 09/14/23 19:50 Lab Results 09/14/23 Range/Units 15:52 WBC 8.44 (4.8-10.8) K/ul RBC 4.53 L (4.70-6.10) M/uL Hgb 11.4 L (14.0-18.0) g/dl Hct 37.1 L (42.0-52.0) % MCV 81.9 (80.0-100.0) fL MCH 25.2 (25.0-34.0) pg MCHC 30.7 L (32.0-36.0) g/dL RDW Std Deviation 50.6 H (36.4-46.3) fL RDW Coeff of Sarah 17.2 H (11.5-14.5) % Plt Count 184 (130-400) K/uL MPV 10.6 (9.4-12.4) fL Immature Gran % (Auto) 0.4 % Neut % (Auto) 70.3 % Lymph % (Auto) 14.8 % Schuyler % (Auto) 9.6 % Eos % (Auto) 3.6 % Baso % (Auto) 1.3 % Neut # (Auto) 5.94 (1.40-6.50) K/uL Lymph # (Auto) 1.25 (1.20-3.40) K/uL Schuyler # (Auto) 0.81 H (0.11-0.59) K/uL Eos # (Auto) 0.30 (0.00-0.50) K/uL Baso # (Auto) 0.11 (0.00-0.20) K/uL Immature Gran # (Auto) 0.03 (0.01-0.20) K/uL PT 13.0 H (9.0-12.0) Seconds INR 1.2 H (0.9-1.1) APTT 28 (21-31) Seconds PTT Ratio 1.0 Sodium 142 (136-145) mmol/L Potassium 3.4 L (3.5-5.1) mmol/L Chloride 104 (98-107) mmol/L Carbon Dioxide 30 (21-32) mmol/L Anion Gap 8 (3-11) BUN 48 H (6-23) mg/dl Creatinine 2.80 H (0.6-1.4) mg/dl Est Cr Clr Drug Dosing 25.0 ml/min Est GFR ( Amer) 23.5 ml/min Est GFR (Non-Af Amer) 20.2 ml/min BUN/Creatinine Ratio 17.1 (10-20) Glucose 99 (70-99(Fasting)) mg/dl Calcium 9.9 (8.6-10.3) mg/dl Magnesium 1.7 (1.7-2.4) mg/dl Total Bilirubin 1.7 H (0.2-1.0) mg/dl AST 20 (13-39) U/L ALT 12 (7-52) U/L Alkaline Phosphatase 76 (34-104) U/L Troponin I High Sens 17.0 (0-20) pg/ml B-Natriuretic Peptide 641 H (0-100) pg/ml Total Protein 6.8 (6.0-8.3) gm/dl Albumin 3.7 (3.4-5.0) gm/dl Globulin 3.1 (2.5-4.0) gm/dl Albumin/Globulin Ratio 1.2 (0.9-2) Administered Medications Metoprolol Succinate (Metoprolol Succ 50mg Ext Rel Tab) 200 mg PO HS BEHZAD Stop: 10/14/23 21:55 Last Admin: 09/14/23 22:57 Dose: 200 mg Documented By: LEE Potassium Chloride (Potassium Chloride 10 Meq Tabcr) 10 meq PO BID BEHZAD Stop: 10/14/23 21:55 Last Admin: 09/14/23 22:58 Dose: 10 meq Documented By: LEE Rivaroxaban (Rivaroxaban 15 Mg Tab) 15 mg PO HS BEHZAD Stop: 10/14/23 21:55 Last Admin: 09/14/23 22:58 Dose: 15 mg Documented By: LEE Discontinued Medications Bumetanide 1 mg/ Syringe 4 mls @ 4 mls/min IV ONE ONE Stop: 09/14/23 18:07 Last Admin: 09/14/23 18:51 Dose: 4 mls/min Documented By: FREDDIE Metolazone (Metolazone 5 Mg Tablet) 5 mg PO NOW ONE Stop: 09/14/23 18:07 Last Admin: 09/14/23 18:51 Dose: 5 mg Documented By: FREDDIE Potassium Chloride (Potassium Chloride Crtab 20 Meq Tabcr) 20 meq PO NOW STA Stop: 09/14/23 19:08 Last Admin: 09/14/23 19:15 Dose: 20 meq Documented By: FREDDIE Imaging Data Radiologist's Impression: Chest X-Ray 09/14/23 15:39 XR chest 1V not portable HISTORY: 83 years-old Male Dyspnea COMPARISON: 08/13/2022 TECHNIQUE: AP view the chest FINDINGS: Cardiac silhouette is enlarged. Median sternotomy. Prosthetic aortic valve. Pulmonary vascular congestion with interstitial coarsening. No pneumothorax. Left lung is generally clear. Small right pleural effusion with right basilar consolidation. IMPRESSION: 1. Cardiomegaly with suggestion of mild pulmonary edema. 2. Small right pleural effusion with mild right basilar consolidation. ACT 112: Negative or not required by law. The above report was generated using voice recognition software. It may contain grammatical, syntax or spelling errors. Electronically signed by: Pedro Pablo Goode M.D. 09/14/2023 4:32 PM Discharge Plan Visit Data Chief Complaint: Shortness of Breath/Dyspnea Stated Complaint: SOB/TROUBLE BREATHING, LOW BP ED Provider: Hector Bowden Discharge Problem: Diastolic CHF, acute on chronic, Atrial fibrillation, Chronic kidney disease, stage 4 (severe), SERVIN (dyspnea on exertion) Patient Disposition: Being Evaluated by Hospitalist Discharge Instructions Interventions: ED Discharge Assessment Last Done: 09/14/23 21:15 Discharge Problem: Atrial fibrillation Qualifiers: Atrial fibrillation type: permanent Qualified Code(s): I48.21 - Permanent atrial fibrillation
[2023-09-14 16:28] LABS: Basophils # (auto) 0.11 K/uL (0.00-0.20); Basophils % (auto) 1.3 %; Eosinophils % (auto) 3.6 %; Hematocrit (blood only) 37.1 % (42.0-52.0); Hemoglobin 11.4 g/dl (14.0-18.0); Immature Granulocytes # (auto) 0.03 K/uL (0.01-0.20); Immature Granulocytes % (auto) 0.4 %; Lymphocytes # (auto) 1.25 K/uL (1.20-3.40); Lymphocytes % (auto) 14.8 %; Mean Corpuscular Hemoglobin 25.2 pg (25.0-34.0); Mean Corpuscular Hgb Conc 30.7 g/dL (32.0-36.0); Mean Corpuscular Volume 81.9 fL (80.0-100.0); Mean Platelet Volume 10.6 fL (9.4-12.4); Monocytes # (auto) 0.81 K/uL (0.11-0.59); Monocytes % (auto) 9.6 %; Neutrophils # (auto) 5.94 K/uL (1.40-6.50); Neutrophils % (auto) 70.3 %; Platelet Count 184 K/uL (130-400); RDW Coefficient of Variation 17.2 % (11.5-14.5); RDW Standard Deviation 50.6 fL (36.4-46.3); Red Blood Count 4.53 M/uL (4.70-6.10); White Blood Count 8.44 K/ul (4.8-10.8)
--- NOTE | 2023-09-14 16:34 | XRay Report ---
XR chest 1V not portable HISTORY: 83 years-old Male Dyspnea COMPARISON: 08/13/2022 TECHNIQUE: AP view the chest FINDINGS: Cardiac silhouette is enlarged. Median sternotomy. Prosthetic aortic valve. Pulmonary vascular conges tion with interstitial coarsening. No pneumothorax. Left lung is generally clear. Small right pleural effusion with right basilar consolidation. IMPRESSION: 1. Cardiomegaly with suggestion of mild pulmonary edema. 2. Small right pleural effusion with mild right basilar consolidation. ACT 112: Negative or not required by law. The above report was generated using voice recognition software. It may contain grammatical, syntax o r spelling errors. Electronically signed by: Pedro Pablo Goode M.D. 09/14/2023 4:32 PM
[2023-09-14 16:40] LABS: Albumin Globulin Ratio 1.2 (0.9-2); Albumin Level 3.7 gm/dl (3.4-5.0); BUN Creatinine Ratio 17.1 (10-20); Bilirubin,Total 1.7 mg/dl (0.2-1.0); Calcium 9.9 mg/dl (8.6-10.3); Est GFR (African American) 23.5 ml/min; Est GFR (Non-African American) 20.2 ml/min; Globulin 3.1 gm/dl (2.5-4.0); Potassium 3.4 mmol/L (3.5-5.1); Total Protein 6.8 gm/dl (6.0-8.3)
[2023-09-14 16:51] LABS: INR 1.2 (0.9-1.1); Partial Thromboplastin Time 28 Seconds (21-31)
--- NOTE | 2023-09-14 17:22 | Electrocardiogram Report ---
Test Reason : Blood Pressure : / mmHG Vent. Rate : 104 BPM Atrial Rate : 000 BPM P-R Int : 000 ms QRS Dur : 094 ms QT Int : 390 ms P-R-T Axes : 000 067 -65 degrees QTc Int : 512 ms Atrial fibrillation with rapid ventricular response Abnormal ECG When compared with ECG of 11-AUG-2022 08:26, T wave inversion now evident in Inferior leads T wave inversion now evident in Lateral leads QT has lengthened Confirmed by Gilmer Sanchez ([id number]) on 09/14/2023 5:21:57 PM Referred By: Confirmed By:Gilmer Sanchez
--- NOTE | 2023-09-14 18:33 | History & Physical Report ---
Date of Service September 14, 2023 Assessment & Plan (1) Acute diastolic (congestive) heart failure: Plan: Worsening SERVIN and leg swelling x 1 week Patient follows with heart failure clinic Last echocardiogram on 07/12/2022 revealed LVEF at 5055%; severe pulmonary HTN Repeat echocardiogram ordered, pending BNP 641 (last was 350 on 12/15/2022) Bumex 3 mg IV BID17 Metolazone 5 mg p.o. daily (which patient takes as needed at home) Eplerenone K supplementation BID Daily weights Strict I&O monitoring Heart healthy, low-sodium diet (1500 mL fluid restriction) A.m. CBC, BMP, Mag (2) Atrial fibrillation with rapid ventricular response: Plan: May also be contributing to difficulty with breathing Rate controlled at time of admission Metoprolol 5 mg IV q6h as needed for HR >140bpm Continue diltiazem, metoprolol, Xarelto (3) Chronic kidney disease, stage 4 (severe): Plan: Patient is s/p left nephrectomy in 2011 (secondary to renal cell adenocarcinoma) BUN 48, creatinine 2.80 (baseline around 2.45), EGFR 20.2 on arrival Avoid nephrotoxic agents for possible UA ordered, pending; patient endorses darker urine x 2 days Bladder scan [facility]shift Nephrology consulted Trend a.m. BMP (4) Hypokalemia: Plan: Mild; K3.4 on arrival Potassium chloride 20mEq given Continue potassium supplementation 10mEq BID Trend BMP (5) Wound of right leg: Plan: Daily wound care (6) Obstructive sleep apnea: Plan: CPAP HS; patient may use home CPAP or BiPAP if brought in (7) Hypertension: (8) H/O aortic valve replacement: (9) History of renal cell carcinoma: Plan Disposition: Admit to PCU telemetry Full code Heart healthy, low-sodium diet (1500 mL fluid restriction) VTE PPx: On Xarelto History of Present Illness Chief Complaint: SOB/dyspnea Primary Care Provider: Zackery Cochran DO Kyler is a pleasant 83-year-old male with PMH of diastolic CHF, hyperlipidemia, gout, bioprosthetic AVR, chronic venous insufficiency, anxiety, FIFI, CKD stage IV, diabetes mellitus, atrial fibrillation (on Xarelto), HTN, and HLD. He presented for worsening SERVIN and lower extremity edema x 1 week. Patient reports that he has difficulty sitting up and walking 10 feet with living room before he is gasping for breath. He denies SOB at rest, or when lying flat on his back. Patient is on continuous oxygen supplementation at baseline (2L NC), however he is will occasionally bump up to 3L NC as needed. He reports his pulse ox has been 97% on 2L NC at home. CPAP at bedtime with oxygen. Patient took all of his regular morning medications; no recent change in medications. He reports good consistency with taking his Xarelto and Bumex. He does note that he does not watch his salt intake; was recently eating pulled pork and dessert at a last week, as well as steak and bread tramp at his anniversary over the weekend. Patient notes that his weight has changed around 8 pounds over the past week (going up and down); he reports he is back down to 252lb today. No sick contacts. He does note he has had dark-colored urine for the past 2 days. Patient does have a history of renal cell carcinoma s/p left nephrectomy in 2011. Patient is tachypneic at 28 RPM at time of admission; SpO2 is 100% on 4L NC. ED course: Metolazone 5mg p.o. Bumex 1 mg IV ROS: Patient endorses lightheadedness with standing, worsening SERVIN, intermittent chest palpitations, productive cough (clear sputum, which patient attributes to CPAP HS), changes in weight, swelling in legs, pain in right leg (patient attributes to wound), loose stool, dark urine x 2 days, Patient denies fever, chills, night-sweats, dizziness, falls, fainting, headache, chest pain, pleuritic CP, hemoptysis, abdominal pain, N/V, burning with urination, dysuria, urinary retention, urinary incontinence, or numbness/tingling in the arms or legs. Allergies Allergy/AdvReac Type Severity Reaction Status Date / Time Iodinated Contrast Media AdvReac Unknown PT ONLY Verified 09/14/23 17:56 [Iodinated Contrast- Oral HAS 1 and IV Dye] KIDNEY, CONTRAINDICATED. Home Medications Medication Instructions Recorded Confirmed Type amoxicillin 500 mg tablet 2,000 mg PO DIRECTED PRN 1 HOUR 11/16/18 09/14/23 History PRIOR TO DENTAL PROCEDURES docusate sodium 100 mg capsule 100 mg PO QAM PRN Constipation 05/03/20 09/14/23 History cholecalciferol (vitamin D3) 50 50 mcg PO DAILY 07/10/22 09/14/23 History mcg (2,000 unit) capsule (Vitamin D3) magnesium 250 mg tablet 250 mg PO DAILY 07/10/22 09/14/23 History cyanocobalamin (vitamin B-12) 1,000 mcg IM Q90D #30 mL 09/23/22 09/14/23 Rx 1,000 mcg/mL injection solution metolazone 5 mg tablet 5 mg PO DAILY PRN weight gain #30 10/23/22 09/14/23 Rx tabs allopurinol 100 mg tablet 100 mg PO QAM #90 tabs 01/20/23 09/14/23 Rx bumetanide 2 mg tablet 3 mg (1.5 x 2 mg) PO DAILY 90 days 01/20/23 09/14/23 Rx #135 tabs tamoxifen 20 mg tablet 20 mg PO DAILY #90 tabs 01/21/23 09/14/23 Rx rivaroxaban 15 mg tablet 15 mg PO HS #90 tabs 02/09/23 09/14/23 Rx diltiazem HCl 120 mg capsule,24 120 mg PO DAILY #30 caps 03/19/23 09/14/23 Rx hr,extended release potassium chloride 10 mEq 10 meq PO BID #180 caps 04/02/23 09/14/23 Rx capsule,extended release eplerenone 25 mg tablet 25 mg PO QAM #90 tabs 05/04/23 09/14/23 Rx Portable Oxygen #1 ea 05/25/23 09/14/23 Rx metoprolol succinate 200 mg 200 mg PO HS #30 tabs 06/01/23 09/14/23 Rx tablet,extended release 24 hr cyclobenzaprine 5 mg tablet 5 mg PO BID PRN muscle 07/02/23 09/14/23 Rx pain/stiffness #60 tabs calcitriol 0.25 mcg capsule 0.5 mcg (2 x 0.25 mcg) PO QAM #180 08/11/23 09/14/23 Rx caps mupirocin 2 % topical ointment 1 applic topical TID #22 grams 08/18/23 09/14/23 Rx tramadol 50 mg tablet 50 mg PO BID PRN Pain #60 tabs 08/18/23 09/14/23 Rx Past Med/Surg History Problem List (Updated 09/14/23 @ 19:34 by Jared Curry PA-C) History of aortic valve disease s/p AVR (2006) History of renal cell carcinoma SERVIN (dyspnea on exertion) (Acute) Diastolic CHF, acute on chronic (Acute) Hypokalemia Chronic venous insufficiency (Chronic) Traumatic open wound of right lower leg (Acute) Atrial fibrillation with rapid ventricular response (Acute) Wound of right leg Class 3 severe obesity due to excess calories with body mass index (BMI) of 40.0 to 44.9 in adult Gynecomastia, male Family history of breast cancer gene mutation in first degree relative Hx of gynecomastia Left breast lump Nocturnal hypoxemia Complex sleep apnea syndrome Chronic kidney disease, stage 4 (severe) (Acute) Diabetes mellitus Atrial fibrillation (Chronic) Hypertension (Chronic) Obstructive sleep apnea (Chronic) BIPAP Shortness of breath Acute diastolic (congestive) heart failure Hypermagnesemia Iron deficiency anemia Arm pain Hand numbness Foraminal stenosis of cervical region Vitamin D deficiency Anxiety (Acute) Venous insufficiency (chronic) (peripheral) Morbid obesity with BMI of 40.0-44.9, adult H/O aortic valve replacement Gout Microcytic anemia Chronic low back pain with right-sided sciatica B12 deficiency Chronic diastolic CHF (congestive heart failure) (Chronic) Hyperlipidemia (Chronic) Medical History Aspiration into respiratory tract Acute kidney injury superimposed on CKD History of aortic valve disease s/p AVR (2006) Morbid obesity History of anxiety Hx of gout Hx of rotator cuff tear Difficulty with raising arms without extreme pain, currently in PT Hx of osteoarthritis Hx of impacted cerumen History of COVID-19 01/2021 > "mild" cold symptoms, resolved Prediabetes Kidney stones Hx x7 Renal cell adenocarcinoma s/p nephrectomy Chronic kidney disease, stage III (moderate) CKD (chronic kidney disease), stage III Surgical History Hx of cardiac catheterization 11/2020 > no stents History of total bilateral knee replacement History of esophagogastroduodenoscopy (EGD) Hx of colonoscopy Hx of tonsillectomy Hx of cystoscopy w/stone basketing History of left nephrectomy History of spinal surgery Aortic valve replaced bioprosthesis, 2006 History of gastric bypass History of cholecystectomy Family History Mother Breast cancer Lung disease Grandmother (Maternal) Breast cancer Aunt Breast cancer Sister Breast cancer Father Myocardial infarction Arthritis Denies family history of Ovarian cancer Prostate cancer Colorectal cancer Social History (Updated 08/31/23 @ 09:09 by Cornelia Syed RN) Smoking Status: Never smoker Second Hand Exposure: Yes (as a child-parents were chain smokers); Do You Dip or Chew Tobacco: No; Hx Alcohol Use: No Hx Substance Use: No Preferred Language: Estonian Communication Ability: Effective Visual Impairment: No Limitations Hearing Ability: Normal Machine Bobbin Winder Required: No Beliefs That Will Affect Care: None marital status: Current Living Situation: Spouse and Family Current Living Situation Comment: with current occupational status: retired 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[employer] Feels Safe at Home: Yes Childhood Exposure to Second-Hand Smoke: Yes Dental Care, Regularly: Yes Physical Activity Frequency: Does not Exercise Physical Activity Frequency Comment: Physical activity limited due to medical conditions Seatbelt Use: always Sunscreen Use: No Assistive Devices: BiPap, Cane, Glasses, Oxygen - Continuous and Walker Review of Systems Review of Systems: See HPI above Physical Exam Physical Exam: General: no acute distress; non-toxic appearing; well-nourished; cooperative; SpO2 95% on 2 L NC HEENT: normocephalic, atraumatic; no scleral icterus; PERRLA; moist mucus membrane; vision and hearing grossly intact Neck: supple; negative JVP; no lymphadenopathy; trachea midline Skin: warm, dry without signs of tenting; no cyanosis; no rashes, bruising, lesions, or erythema noted CV: chest wall NTP; irregularly irregular rhythm around 80 bpm; S1/S2 normal; 3/6 systolic ejection murmur auscultated at the second ICS MCL; pulses intact and symmetric at radial, DP, and PT Lungs: no acute respiratory distress; symmetrical chest wall expansion; clear breath sounds across all lung kuhn w/o adventitious sounds; no wheezing ABD: Soft, NTP; BS present; no rebound/guarding; moderate distention secondary to body habitus MSK: no tics or fasciculations; significant non-pitting edema in the LEs B/L extending up to the knees, nonerythematous; wound dressed on the lateral aspect of the RLE Neuro: A&Ox3; normal mood and affect; fluent speech; no focal deficits; sensation grossly intact and symmetric in the LEs b/l Results & Data Results & Data Vital Signs (Past 12 Hours) Vital Signs Temp Pulse Pulse Resp BP BP Pulse Ox 09/14/23 17:46 100 09/14/23 17:22 87 115/85 100 09/14/23 15:30 36.5 C 130 H 28 H 116/69 89 L O2 Del Method O2 Flow Rate 09/14/23 17:46 Nasal Cannula 4 09/14/23 17:22 Nasal Cannula 4 09/14/23 15:30 Nasal Cannula 2 Laboratory Results Abnormal lab results 09/14/23 Range/Units 15:52 RBC 4.53 L (4.70-6.10) M/uL Hgb 11.4 L (14.0-18.0) g/dl Hct 37.1 L (42.0-52.0) % MCHC 30.7 L (32.0-36.0) g/dL RDW Std Deviation 50.6 H (36.4-46.3) fL RDW Coeff of Sarah 17.2 H (11.5-14.5) % [place] # (Auto) 0.81 H (0.11-0.59) K/uL PT 13.0 H (9.0-12.0) Seconds INR 1.2 H (0.9-1.1) Potassium 3.4 L (3.5-5.1) mmol/L BUN 48 H (6-23) mg/dl Creatinine 2.80 H (0.6-1.4) mg/dl Total Bilirubin 1.7 H (0.2-1.0) mg/dl B-Natriuretic Peptide 641 H (0-100) pg/ml Diagnostic Findings Chest X-Ray 09/14/23 15:39 XR chest 1V not portable HISTORY: 83 years-old Male Dyspnea COMPARISON: 08/13/2022 TECHNIQUE: AP view the chest FINDINGS: Cardiac silhouette is enlarged. Median sternotomy. Prosthetic aortic valve. Pulmonary vascular congestion with interstitial coarsening. No pneumothorax. Left lung is generally clear. Small right pleural effusion with right basilar consolidation. IMPRESSION: 1. Cardiomegaly with suggestion of mild pulmonary edema. 2. Small right pleural effusion with mild right basilar consolidation. ACT 112: Negative or not required by law. The above report was generated using voice recognition software. It may contain grammatical, syntax or spelling errors. Electronically signed by: Pedro Pablo Goode M.D. 09/14/2023 4:32 PM ECG Additional Comments: ECG revealed atrial fibrillation with RVR at 104 bpm; QTc 512 (would caution use of QT prolonging agents) Code Status & VTE Plan Code Status Full code VTE Prophylaxis Plan VTE Prophylaxis will be ordered: Yes Supervising Physician Co-Signing Physician Notes I have personally seen, evaluated and examined the patient. I have also personally discussed the management of the patient with the resident physician/KENA and I agree with the exam findings documented in the history and physical examination and the documented assessment and plan unless otherwise stated below. Brief Exam: In general this is a pleasant 83-year-old male is alert oriented x 3 at the time my exam he is accompanied by his at the time of my examination. He does wear continuous oxygen continuously at home he needs to liters of oxygen into his BiPAP/CPAP at night. Question which if this is. It is worse, bring his home unit to be used while in hospital beginning tonight. He is not on any acute distress. He does have some mild conversational dyspnea about 5 words at a time. HEENT: Normocephalic atraumatic. Neck: Supple no rigidity. no lymphadenopathy, no criselda JVD but exam is limited due to patient's body habitus. Heart: Irregular rate and rhythm consistent with atrial fibrillation rate is currently controlled. There is a 2 out of 6 to 3 out of 6 systolic murmur appreciated at the left sternal border. Lungs: Diminished due to body habitus but fairly clear. Extremities: Intact. 2+ edema bilaterally. Right slightly worse than the left. Tubigrip's in place to the right. Wound not directly inspected as the wound clinic distress noted today. Consult wound nurse here. Neurological: Patient is alert and oriented x 3. . Assessment/plan: As described above. Please refer to orders for further planning. Update echocardiogram tomorrow. Will check a repeat troponin at this time as well - if flat trend further. PG Care Time/CCT Total # of Minutes Spent Total Time Spent with Patient: Total time spent is greater than 50% in coordination of care (as documented) at patient's floor/unit and/or counseling patient: [place] [address] INT INP/OBS CARE 3/75MIN Patient Type Established History Comprehensive Exam Comprehensive Medical Decision Making High Complexity Diagnoses Acute diastolic (congestive) heart failure I50.31 Atrial fibrillation with rapid ventricular response I48.91 Chronic kidney disease, stage 4 (severe) N18.4 Hypokalemia E87.6 Wound of right leg S81.801A Obstructive sleep apnea G47.33 Hypertension I10 H/O aortic valve replacement Z95.2 History of renal cell carcinoma Z85.528
[2023-09-14] MEDS: BUMETANIDE 1 MG in SYRINGE 0 ML IV ONE (18:51)
[2023-09-14] MEDS: metOLazone 5 MG TABLET PO ONE (18:51)
[2023-09-14] MEDS: POTASSIUM CHLORIDE CRTAB 20 MEQ TABCR PO STA (19:15)
[2023-09-14 19:52] LABS: Magnesium 1.7 mg/dl (1.7-2.4)
[2023-09-14 20:37] LABS: BUN Creatinine Ratio 16.9 (10-20); Calcium 9.7 mg/dl (8.6-10.3); Creatinine Clr Calc Pharmacy 25.2 ml/min; Est GFR (African American) 23.7 ml/min; Est GFR (Non-African American) 20.4 ml/min; Potassium 3.6 mmol/L (3.5-5.1)
[2023-09-14 21:00] LABS: Appearance Urine Clear (Clear); Bacteria Urine Automated None Seen (None Seen); Bilirubin Urine Negative (Negative); Blood Urine Negative (Negative); Cast Urine Automated 0-2 /lpf (0-2); Color Urine Yellow; Epithelial Cell Urine Auto 0-2 /hpf (0-2); Glucose Urine UA Negative (Negative); Ketones Urine Negative (Negative); Leukocyte Esterase Urine 1+ (Negative); Nitrite Urine Negative (Negative); Protein Urine Negative (Negative); RBC Urine Automated 0-2 /hpf (0-2); Specific Gravity Urine 1.007 (1.000-1.030); Urobilinogen Urine Negative (Negative); WBC Urine Automated 0-5 /hpf (0-5)
[2023-09-14] MEDS ORDERED: DOCUSATE SODIUM 100 MG CAP PO PRN (21:56)
[2023-09-14] MEDS ORDERED: ACETAMINOPHEN 325 MG TAB PO PRN (21:56)
[2023-09-14] MEDS ORDERED: METOPROLOL TARTRATE 1 MG/ML VIAL IV PRN (21:56)
[2023-09-14] MEDS ORDERED: traMADol HCL 50 MG TABLET PO PRN (21:56)
[2023-09-14] MEDS: METOPROLOL SUCC 50MG EXT REL TAB PO SCH (22:57)
[2023-09-14] MEDS: RIVAROXABAN 15 MG TAB PO SCH (22:58)
[2023-09-14] MEDS: POTASSIUM CHLORIDE 10 MEQ TABCR PO SCH (22:58)
[2023-09-15 06:34] LABS: Basophils % (auto) 1.3 %; Eosinophils # (auto) 0.29 K/uL (0.00-0.50); Eosinophils % (auto) 3.9 %; Hematocrit (blood only) 36.2 % (42.0-52.0); Hemoglobin 11.3 g/dl (14.0-18.0); Immature Granulocytes # (auto) 0.03 K/uL (0.01-0.20); Immature Granulocytes % (auto) 0.4 %; Lymphocytes # (auto) 1.29 K/uL (1.20-3.40); Lymphocytes % (auto) 17.3 %; Mean Corpuscular Hgb Conc 31.2 g/dL (32.0-36.0); Mean Corpuscular Volume 83.2 fL (80.0-100.0); Mean Platelet Volume 10.3 fL (9.4-12.4); Monocytes # (auto) 0.75 K/uL (0.11-0.59); Monocytes % (auto) 10.1 %; Neutrophils # (auto) 4.98 K/uL (1.40-6.50); Platelet Count 159 K/uL (130-400); RDW Coefficient of Variation 16.9 % (11.5-14.5); RDW Standard Deviation 51.2 fL (36.4-46.3); Red Blood Count 4.35 M/uL (4.70-6.10); White Blood Count 7.44 K/ul (4.8-10.8)
[2023-09-15 06:47] LABS: BUN Creatinine Ratio 17.7 (10-20); Calcium 9.9 mg/dl (8.6-10.3); Creatinine Clr Calc Pharmacy 25.7 ml/min; Est GFR (Non-African American) 21.5 ml/min; Magnesium 1.7 mg/dl (1.7-2.4); Potassium 3.6 mmol/L (3.5-5.1)
--- NOTE | 2023-09-15 08:44 | Nephrology Consultation ---
Date of Consultation September 15, 2023 Assessment & Plan (1) Chronic kidney disease, stage 4 (severe): Baseline creatinine 2.2 - 2.7 mg/dL. Single kidney with underlying arterionephrosclerosis. Urine is bland and acellular. Creatinine remains stable at 2.6 mg/dL this AM. Volume status improving. Electrolytes normal. There is no current indication for PUNCH HAND. Medications are appropriately dosed for kidney function. Low sodium diet. Document strict I/O's. Repeat metabolic profile tomorrow AM. (2) Diastolic CHF, acute on chronic: Clinically improving. Remains on Bumex 3 mg IV BID, metolazone 5 mg QAM. KCl supplement twice daily ordered. I would encourage consultation and close follow up with the CHF clinic. No SGLT2i --> patient unable to afford in the past. (3) Chronic venous insufficiency: Feet elevation. Diuretics as Rx. (4) Secondary hyperparathyroidism: Calcium acceptable. Continue calcitriol 0.5 mcg daily. History of Present Illness Reason for Consultation: CKD Stage IV; CHF; s/p L nephrectomy Requesting Physician: Jerrell Douglas DO Attending Physician: Jerrell Douglas DO History of Present Illness Mr. Kyler Antoine is an 83 year-old male with chronic kidney disease, solitary right kidney s/p L nephrectomy for RCC, history of kidney stones, HFpEF, pulmonary hypertension, atrial fibrillation, h/o of aortic stenosis --> Bovine aortic valve replacement 2006, obesity --> gastric bypass 2012, FIFI on BIPAP QHS, gout, breast mass --> Tamoxifen, dyslipidemia, and venous insufficiency. He presented to the ER at [facility] yesterday with fluid retention and edema. He olivia cribes increasing dyspnea and decreased activity tolerance. Symptoms were progressive over ~2 weeks. He regularly follows with Dr. Curry in the nephrology clinic and Una Ramirez PA-C in the CHF clinic. Kyler has been maintained on Bumex 3 mg twice daily and metolazone 5 mg QAM PRN. He is also maintained on eplerenone 25 mg daily. "Dry weight" typically less than 252 lbs. He admits to recent dietary indiscretion. Laboratory studies on admission notable for a creatinine of 2.8 mg/dL. Creatinine 2.66 mg/dL this AM. Baseline creatinine 2.2-2.7 mg/dL (2.4 mg/dL in May). Urine has been bland and acellular. IV Bumex and metolazone provided. Adequate diuresis overnight. Symptoms are improving. Weight is down from 116 kg to 112.6 kg this AM. Kyler was resting comfortably at the time of my assessment. Allergies Allergy/AdvReac Type Severity Reaction Status Date / Time Iodinated Contrast Media AdvReac Unknown PT ONLY Verified 09/14/23 17:56 [Iodinated Contrast- Oral HAS 1 and IV Dye] KIDNEY, CONTRAINDICATED. Home Medications Medication Instructions Recorded Confirmed Type amoxicillin 500 mg tablet 2,000 mg PO DIRECTED PRN 1 HOUR 11/16/18 09/14/23 History PRIOR TO DENTAL PROCEDURES docusate sodium 100 mg capsule 100 mg PO QAM PRN Constipation 05/03/20 09/14/23 History cholecalciferol (vitamin D3) 50 50 mcg PO DAILY 07/10/22 09/14/23 History mcg (2,000 unit) capsule (Vitamin D3) magnesium 250 mg tablet 250 mg PO DAILY 07/10/22 09/14/23 History cyanocobalamin (vitamin B-12) 1,000 mcg IM Q90D #30 mL 09/23/22 09/14/23 Rx 1,000 mcg/mL injection solution metolazone 5 mg tablet 5 mg PO DAILY PRN weight gain #30 10/23/22 09/14/23 Rx tabs allopurinol 100 mg tablet 100 mg PO QAM #90 tabs 01/20/23 09/14/23 Rx bumetanide 2 mg tablet 3 mg (1.5 x 2 mg) PO DAILY 90 days 01/20/23 09/14/23 Rx #135 tabs tamoxifen 20 mg tablet 20 mg PO DAILY #90 tabs 01/21/23 09/14/23 Rx rivaroxaban 15 mg tablet 15 mg PO HS #90 tabs 02/09/23 09/14/23 Rx diltiazem HCl 120 mg capsule,24 120 mg PO DAILY #30 caps 03/19/23 09/14/23 Rx hr,extended release potassium chloride 10 mEq 10 meq PO BID #180 caps 04/02/23 09/14/23 Rx capsule,extended release eplerenone 25 mg tablet 25 mg PO QAM #90 tabs 05/04/23 09/14/23 Rx Portable Oxygen #1 ea 05/25/23 09/14/23 Rx metoprolol succinate 200 mg 200 mg PO HS #30 tabs 06/01/23 09/14/23 Rx tablet,extended release 24 hr cyclobenzaprine 5 mg tablet 5 mg PO BID PRN muscle 07/02/23 09/14/23 Rx pain/stiffness #60 tabs calcitriol 0.25 mcg capsule 0.5 mcg (2 x 0.25 mcg) PO QAM #180 08/11/23 09/14/23 Rx caps mupirocin 2 % topical ointment 1 applic topical TID #22 grams 08/18/23 09/14/23 Rx tramadol 50 mg tablet 50 mg PO BID PRN Pain #60 tabs 08/18/23 09/14/23 Rx Patient History Medical History Aspiration into respiratory tract Acute kidney injury superimposed on CKD Morbid obesity History of anxiety Hx of gout Hx of rotator cuff tear Difficulty with raising arms without extreme pain, currently in PT Hx of osteoarthritis Hx of impacted cerumen History of COVID-19 01/2021 > "mild" cold symptoms, resolved Prediabetes Kidney stones Hx x7 Renal cell adenocarcinoma s/p nephrectomy Chronic kidney disease, stage III (moderate) CKD (chronic kidney disease), stage III Surgical History Hx of cardiac catheterization 11/2020 > no stents History of total bilateral knee replacement History of esophagogastroduodenoscopy (EGD) Hx of colonoscopy Hx of tonsillectomy Hx of cystoscopy w/stone basketing History of left nephrectomy History of spinal surgery Aortic valve replaced bioprosthesis, 2006 History of gastric bypass History of cholecystectomy Family History Mother Breast cancer Lung disease Grandmother (Maternal) Breast cancer Aunt Breast cancer Sister Breast cancer Father Myocardial infarction Arthritis Denies family history of Ovarian cancer Prostate cancer Colorectal cancer Social History (Updated 08/31/23 @ 09:09 by Cornelia Syed, RN) Smoking Status: Never smoker Second Hand Exposure: Yes (as a child-parents were chain smokers); Do You Dip or Chew Tobacco: No; Hx Alcohol Use: No Hx Substance Use: No Preferred Language: Nepali Communication Ability: Effective Visual Impairment: No Limitations Hearing Ability: Normal Night Filler Required: No Beliefs That Will Affect Care: None marital status: Current Living Situation: Spouse Current Living Situation Comment: with current occupational status: retired 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[employer] Other Information That Helps Us Care for You: No Feels Safe at Home: Yes Safety Concerns: Feels Safe At This Time Childhood Exposure to Second-Hand Smoke: Yes Dental Care, Regularly: Yes Physical Activity Frequency: Does not Exercise Physical Activity Frequency Comment: Physical activity limited due to medical conditions Seatbelt Use: always Sunscreen Use: No Assistive Devices: Cane and CPAP Review of Systems Review of Systems: All systems reviewed & are unremarkable except as noted in HPI & below Physical Exam Constitutional: well developed and + morbidly obese; no acute distress Eyes: no scleral abnormality and no corneal abnormality ENMT: Mouth: no oral mucosal abnormality and oral mucous membranes not dry Neck: normal visual inspection and trachea midline Respiratory: normal respiratory effort Auscultation: lungs clear to auscultation bilaterally and + rales Cardiovascular: Rate/Rhythm: regular rate Heart Sounds: normal S1 and normal S2 Extremities: + edema and + varicosities Musculoskeletal: Extremities: no cyanosis and no clubbing Skin: normal turgor; no lesions Neurologic: Motor/Sensory: no tremor and no asterixis Psychiatric: Orientation: alert and oriented x 3 Results & Data Vital Signs (Past 12 Hours) Vital Signs Temp Pulse Pulse Resp BP Pulse Ox O2 Del Method 09/15/23 08:15 90 09/15/23 07:58 90 09/15/23 07:49 36.7 C 67 19 100/69 90 BiPAP 09/15/23 02:27 36.6 C 74 18 106/72 99 BiPAP 09/14/23 23:00 90 09/14/23 22:45 36.4 C L 92 H 18 115/82 96 Room Air 09/14/23 21:59 Nasal Cannula 09/14/23 21:26 107 H 09/14/23 21:22 36.6 C 96 H 18 134/84 93 Nasal Cannula 09/14/23 21:15 Room Air O2 Flow Rate 09/15/23 08:15 09/15/23 07:58 09/15/23 07:49 09/15/23 02:27 09/14/23 23:00 09/14/23 22:45 09/14/23 21:59 2 09/14/23 21:26 09/14/23 21:22 2 09/14/23 21:15 2 Laboratory Results Laboratory Results - last 24 hr 09/14/23 09/14/23 09/14/23 15:52 19:50 20:40 WBC 8.44 RBC 4.53 L Hgb 11.4 L Hct 37.1 L MCV 81.9 MCH 25.2 MCHC 30.7 L RDW Std Deviation 50.6 H RDW Coeff of Sarah 17.2 H Plt Count 184 MPV 10.6 Immature Gran % (Auto) 0.4 Neut % (Auto) 70.3 Lymph % (Auto) 14.8 [place] % (Auto) 9.6 Eos % (Auto) 3.6 Baso % (Auto) 1.3 Neut # (Auto) 5.94 Lymph # (Auto) 1.25 [place] # (Auto) 0.81 H Eos # (Auto) 0.30 Baso # (Auto) 0.11 Immature Gran # (Auto) 0.03 PT 13.0 H INR 1.2 H APTT 28 PTT Ratio 1.0 Sodium 142 142 Potassium 3.4 L 3.6 Chloride 104 102 Carbon Dioxide 30 33 H Anion Gap 8 7 BUN 48 H 47 H Creatinine 2.80 H 2.78 H Est Cr Clr Drug Dosing 25.0 25.2 Est GFR ( Amer) 23.5 23.7 Est GFR (Non-Af Amer) 20.2 20.4 BUN/Creatinine Ratio 17.1 16.9 Glucose 99 108 H Calcium 9.9 9.7 Magnesium 1.7 Total Bilirubin 1.7 H AST 20 ALT 12 Alkaline Phosphatase 76 Troponin I High Sens 17.0 19.0 B-Natriuretic Peptide 641 H Total Protein 6.8 Albumin 3.7 Globulin 3.1 Albumin/Globulin Ratio 1.2 Urine Color Yellow Urine Appearance Clear Urine pH 6.0 Ur Specific [place] 1.007 Urine Protein Negative Urine Glucose (UA) Negative Urine Ketones Negative Urine Blood Negative Urine Nitrite Negative Urine Bilirubin Negative Urine Urobilinogen Negative Ur Leukocyte Esterase 1+ H Urine WBC (Auto) 0-5 Urine RBC (Auto) 0-2 U Hyaline Cast (Auto) 0-2 U Epithel Cells (Auto) 0-2 Urine Bacteria (Auto) None Seen 09/15/23 05:29 WBC 7.44 RBC 4.35 L Hgb 11.3 L Hct 36.2 L MCV 83.2 MCH 26.0 MCHC 31.2 L RDW Std Deviation 51.2 H RDW Coeff of Sarah 16.9 H Plt Count 159 MPV 10.3 Immature Gran % (Auto) 0.4 Neut % (Auto) 67.0 Lymph % (Auto) 17.3 [place] % (Auto) 10.1 Eos % (Auto) 3.9 Baso % (Auto) 1.3 Neut # (Auto) 4.98 Lymph # (Auto) 1.29 [place] # (Auto) 0.75 H Eos # (Auto) 0.29 Baso # (Auto) 0.10 Immature Gran # (Auto) 0.03 PT INR APTT PTT Ratio Sodium 143 Potassium 3.6 Chloride 103 Carbon Dioxide 35 H Anion Gap 5 BUN 47 H Creatinine 2.66 H Est Cr Clr Drug Dosing 25.7 Est GFR ( Amer) 25.0 Est GFR (Non-Af Amer) 21.5 BUN/Creatinine Ratio 17.7 Glucose 106 H Calcium 9.9 Magnesium 1.7 Total Bilirubin AST ALT Alkaline Phosphatase Troponin I High Sens B-Natriuretic Peptide Total Protein Albumin Globulin Albumin/Globulin Ratio Urine Color Urine Appearance Urine pH Ur Specific [place] Urine Protein Urine Glucose (UA) Urine Ketones Urine Blood Urine Nitrite Urine Bilirubin Urine Urobilinogen Ur Leukocyte Esterase Urine WBC (Auto) Urine RBC (Auto) U Hyaline Cast (Auto) U Epithel Cells (Auto) Urine Bacteria (Auto) Diagnostic Findings Chest X-Ray 09/14/23 15:39 COMPARISON: 08/13/2022 TECHNIQUE: AP view the chest FINDINGS: Cardiac silhouette is enlarged. Median sternotomy. Prosthetic aortic valve. Pulmonary vascular congestion with interstitial coarsening. No pneumothorax. Left lung is generally clear. Small right pleural effusion with right basilar consolidation. IMPRESSION: 1. Cardiomegaly with suggestion of mild pulmonary edema. 2. Small right pleural effusion with mild right basilar consolidation. ECG Additional Comments: Vent. Rate : 104 BPM Atrial Rate : 000 BPM P-R Int : 000 ms QRS Dur : 094 ms QT Int : 390 ms P-R-T Axes : 000 067 -65 degrees QTc Int : 512 ms Atrial fibrillation with rapid ventricular response Abnormal ECG When compared with ECG of 11-AUG-2022 08:26, T wave inversion now evident in Inferior leads T wave inversion now evident in Lateral leads QT has lengthened PG Care Time/CCT Total # of Minutes Spent Total Time Spent with Patient: Total time spent is greater than 50% in coordination of care (as documented) at patient's floor/unit and/or counseling patient: Coding Level of Care Code 60204 IN/OBS CONSULT LVL 4,60M Diagnoses Chronic kidney disease, stage 4 (severe) N18.4 Diastolic CHF, acute on chronic I50.33 Chronic venous insufficiency I87.2 Secondary hyperparathyroidism N25.81
[2023-09-15] MEDS: BUMETANIDE 3 MG in SYRINGE 0 ML IV SCH (08:55)
[2023-09-15] MEDS: allopurinoL 100 MG TAB PO SCH (08:55)
[2023-09-15] MEDS: dilTIAZem HCL 120 MG CAPCR PO SCH (08:56)
[2023-09-15] MEDS: MAGNESIUM OXIDE 400 MG TAB PO SCH (08:56)
[2023-09-15] MEDS: metOLazone 5 MG TABLET PO SCH (08:57)
[2023-09-15] MEDS: TAMOXIFEN CITRATE 10 MG TABLET PO SCH (09:00)
--- NOTE | 2023-09-15 15:09 | XCELERA ---
[id number] [id number]
--- NOTE | 2023-09-15 20:17 | Hospitalist Progress Note ---
Date of Service September 15, 2023 Assessment & Plan (1) Acute diastolic (congestive) heart failure: Plan: Acute on chronic diastolic CHF likely due to sodium mediated fluid retention. Improving, but not yet back to baselinecontinue current treatment. Anticipate further improvement. (2) Atrial fibrillation with rapid ventricular response: Plan: Anticoagulated, rate now better controlled. Suspect RVR was in response to CHF and hypoxia, although certainly the rate could also contribute in its own manner with diastolic failure from lack of filling time. (3) Chronic kidney disease, stage 4 (severe): Plan: Patient is s/p left nephrectomy in 2011 (secondary to renal cell adenocarcinoma) BUN 48, creatinine 2.66 (baseline around 2.45), Given improvement with diuresis, anticipate further improvement with offloading left ventricle and better forward flow. (4) Wound of right leg: Plan: Daily wound care (5) Obstructive sleep apnea: Plan: CPAP HS; patient may use home CPAP or BiPAP if brought in (6) Hypertension: (7) H/O aortic valve replacement: (8) History of renal cell carcinoma: Plan DVT prophylaxis with Xarelto. Anticipate return to home once his breathing has returned to his baseline. (For clarification noted to use predominantly 2 and sometimes 3 L nasal cannula at home) Admission and Anticipated Discharge Date Admission Date: September 14, 2023 Subjective Breathing feels better than yesterday but definitely not back to a normal day for him. Does note that he was taking a lot more sodium recently, but also notes that he is not very careful about sodium intake on a normal day either. Review of Systems Review of Systems: All systems reviewed & are unremarkable except as noted in HPI & below Physical Exam Physical Exam: In general he is awake alert oriented pleasant no distress. HEENT normocephalic atraumatic mucous membranes moist. Breathing unlabored no accessory muscle use good effort. Skin shows no rashes no pallor or icterus. Neuro without focal deficits. Results & Data Results & Data Vital Signs (Past 12 Hours) Vital Signs Temp Pulse Pulse Resp BP Pulse Ox O2 Del Method 09/15/23 19:17 97.7 F 107 H 18 103/68 95 Nasal Cannula 09/15/23 15:38 97.9 F 100 H 19 101/72 96 Nasal Cannula 09/15/23 15:14 86 09/15/23 11:50 98.2 F 96 H 19 118/79 94 Nasal Cannula 09/15/23 10:17 Nasal Cannula 09/15/23 08:15 90 O2 Flow Rate 09/15/23 19:17 2 09/15/23 15:38 09/15/23 15:14 09/15/23 11:50 09/15/23 10:17 2 09/15/23 08:15 PG Care Time/CCT Total # of Minutes Spent Total Time Spent with Patient: Total time spent is greater than 50% in coordination of care (as documented) at patient's floor/unit and/or counseling patient: Coding Level of Care Code 03210 SUB INP/OBS CARE 2/35MIN Diagnoses Acute diastolic (congestive) heart failure I50.31 Atrial fibrillation with rapid ventricular response I48.91 Chronic kidney disease, stage 4 (severe) N18.4 Wound of right leg S81.801A Obstructive sleep apnea G47.33 Hypertension I10 H/O aortic valve replacement Z95.2 History of renal cell carcinoma Z85.528
[2023-09-16 06:15] LABS: Basophils % (auto) 1.1 %; Eosinophils # (auto) 0.29 K/uL (0.00-0.50); Eosinophils % (auto) 3.3 %; Hematocrit (blood only) 37.1 % (42.0-52.0); Hemoglobin 11.3 g/dl (14.0-18.0); Immature Granulocytes # (auto) 0.03 K/uL (0.01-0.20); Immature Granulocytes % (auto) 0.3 %; Lymphocytes # (auto) 1.36 K/uL (1.20-3.40); Lymphocytes % (auto) 15.2 %; Mean Corpuscular Hemoglobin 25.3 pg (25.0-34.0); Mean Corpuscular Hgb Conc 30.5 g/dL (32.0-36.0); Mean Corpuscular Volume 83.2 fL (80.0-100.0); Mean Platelet Volume 10.1 fL (9.4-12.4); Monocytes # (auto) 0.88 K/uL (0.11-0.59); Monocytes % (auto) 9.9 %; Neutrophils # (auto) 6.26 K/uL (1.40-6.50); Neutrophils % (auto) 70.2 %; Platelet Count 175 K/uL (130-400); RDW Coefficient of Variation 16.7 % (11.5-14.5); RDW Standard Deviation 50.1 fL (36.4-46.3); Red Blood Count 4.46 M/uL (4.70-6.10); White Blood Count 8.92 K/ul (4.8-10.8)
[2023-09-16 06:31] LABS: BUN Creatinine Ratio 16.9 (10-20); Calcium 9.8 mg/dl (8.6-10.3); Creatinine Clr Calc Pharmacy 22.3 ml/min; Est GFR (African American) 21.5 ml/min; Est GFR (Non-African American) 18.5 ml/min
[2023-09-16 06:51] LABS: Ferritin 28.2 ng/ml (8-388)
--- NOTE | 2023-09-16 07:21 | Hospitalist Progress Note ---
Date of Service September 16, 2023 Assessment & Plan Plan (1) Acute diastolic (congestive) heart failure: Plan: Worsening SERVIN and leg swelling x 1 week Patient follows with heart failure clinic Last echocardiogram on 07/12/2022 revealed LVEF at 5055%; severe pulmonary HTN Repeat echocardiogram ordered, pending BNP 641 (last was 350 on 12/15/2022) Bumex 3 mg IV BID17 Metolazone 5 mg p.o. daily (which patient takes as needed at home) Eplerenone K supplementation BID Daily weights Strict I&O monitoring Heart healthy, low-sodium diet (1500 mL fluid restriction) A.m. CBC, BMP, Mag (2) Atrial fibrillation with rapid ventricular response: Plan: May also be contributing to difficulty with breathing Rate controlled at time of admission Metoprolol 5 mg IV q6h as needed for HR >140bpm Continue diltiazem, metoprolol, Xarelto (3) Chronic kidney disease, stage 4 (severe): Plan: Patient is s/p left nephrectomy in 2011 (secondary to renal cell adenocarcinoma) BUN 48, creatinine 2.80 (baseline around 2.45), EGFR 20.2 on arrival Avoid nephrotoxic agents for possible UA ordered, pending; patient endorses darker urine x 2 days Bladder scan Qshift Nephrology consulted Trend a.m. BMP (4) Hypokalemia: Plan: Mild; K3.4 on arrival Potassium chloride 20mEq given Continue potassium supplementation 10mEq BID Trend BMP (5) Wound of right leg: Plan: Daily wound care (6) Obstructive sleep apnea: Plan: CPAP HS; patient may use home CPAP or BiPAP if brought in (7) Hypertension: (8) H/O aortic valve replacement: (9) History of renal cell carcinoma: Plan Disposition: Admit to PCU telemetry Full code Heart healthy, low-sodium diet (1500 mL fluid restriction) VTE PPx: On Xarelto Admission and Anticipated Discharge Date Admission Date: September 14, 2023 Review of Systems Constitutional: no fever, no chills and no fatigue Respiratory: + cough (intermittent productive cough) and + dyspnea on exertion; no chest congestion and no dyspnea Cardiovascular: no chest pain and no palpitations Gastrointestinal: + constipation (mild constipation); no a bdominal pain, no nausea and no vomiting Genitourinary: + urinary frequency (after lasix given); no dysuria Neurologic: no tingling, no numbness and no headache(s) Physical Exam Constitutional: WD/WN, vitals as above Respiratory: Auscultation: + crackles (at base of lungs posteriorly, more pronounced on r. side); no diminished lung sounds Cardiovascular: RRR, no murmur, no edema Extremities: normal capillary refill and + pedal edema; no calf tenderness Skin: + skin tightening, + wound (on r. lower leg laterally) and + erythema (redness of lower legs/shins area suggestive of venous stasis) Psychiatric: A+Ox3, euthymic affect Genitourinary: no CVA tenderness Results & Data Results & Data Vital Signs (Past 12 Hours) Vital Signs Temp Pulse Pulse Resp BP Pulse Ox O2 Del Method 09/16/23 06:57 72 09/15/23 23:00 93 H 09/15/23 22:30 37.0 C 94 H 20 100/68 95 CPAP 09/15/23 20:00 Nasal Cannula 09/15/23 19:17 36.5 C 107 H 18 103/68 95 Nasal Cannula O2 Flow Rate 09/16/23 06:57 09/15/23 23:00 09/15/23 22:30 09/15/23 20:00 2 09/15/23 19:17 2
[2023-09-16] MEDS: CYCLOBENZAPRINE HCL 5 MG TAB PO PRN (08:43)
[2023-09-16] MEDS: POTASSIUM CHLORIDE CRTAB 20 MEQ TABCR PO STA (08:48)
[2023-09-16] MEDS: IRON SUCROSE 200 MG in 0.9 % SODIUM CHLORIDE 100 ML IV ONE (09:27)
--- NOTE | 2023-09-16 10:23 | Nephrology Progress Note ---
Date of Service September 16, 2023 Assessment & Plan (1) Chronic kidney disease, stage 4 (severe): Plan: Baseline creatinine 2.2 - 2.7 mg/dL. Single kidney with underlying arterionephrosclerosis. Urine is bland and acellular. Creatinine 2.6-->3.0 mg/dL in past 24 hours. Volume status significantly improved. Hypokalemic. There is no current indication for PROCESS SAFETY SPECIALIST. Metolazone held this AM. Bumex 3 mg IV BID switched to 2 mg PO this AM. Eplerenone 25 mg daily restarted. A repeat metabolic profile has been ordered for this afternoon. If we are not able to maintain a negative fluid balance with PO Bumex, I would suggest another dose of Bumex 3 mg IV this afternoon. Medications are appropriately dosed for kidney function. Low sodium diet. Document strict I/O's. Repeat metabolic profile tomorrow AM. I reviewed the plan with the hospitalist team. (2) Diastolic CHF, acute on chronic: Plan: Clinically improving. Consultation and close follow up with cardiology encouraged. (3) Chronic venous insufficiency: Plan: Feet elevation. Diuretics as Rx. (4) Secondary hyperparathyroidism: Plan: Calcium acceptable. Continue calcitriol 0.5 mcg daily. Admission and Anticipated Discharge Date Admission Date: September 14, 2023 Subjective No acute events overnight. Significant diuresis in past 24 hours. Edema markedly improved. Breathing more comfortably. No chest pains or palpitations. No lightheadedness or dizziness. Review of Systems Review of Systems: All systems reviewed & are unremarkable except as noted in HPI & below Physical Exam Constitutional: well developed and + morbidly obese; no acute distress Eyes: no scleral abnormality and no corneal abnormality ENMT: Mouth: no oral mucosal abnormality and oral mucous membranes not dry Neck: normal visual inspection and trachea midline Respiratory: normal respiratory effort Auscultation: lungs clear to auscultation bilaterally and + rales Cardiovascular: Rate/Rhythm: regular rate Heart Sounds: normal S1 and normal S2 Extremities: + edema and + varicosities Musculoskeletal: Extremities: no cyanosis and no clubbing Skin: normal turgor; no lesions Neurologic: Motor/Sensory: no tremor and no asterixis Psychiatric: Orientation: alert and oriented x 3 Results & Data Vital Signs (Past 12 Hours) Vital Signs Temp Pulse Pulse Resp BP Pulse Ox O2 Del Method 09/16/23 07:41 Nasal Cannula, CPAP 09/16/23 07:15 36.4 C L 74 21 108/66 92 BiPAP 09/16/23 06:57 72 09/15/23 23:00 93 H 09/15/23 22:30 37.0 C 94 H 20 100/68 95 CPAP O2 Flow Rate 09/16/23 07:41 2 09/16/23 07:15 09/16/23 06:57 09/15/23 23:00 09/15/23 22:30 Laboratory Results Laboratory Results - last 24 hr 09/16/23 05:18 WBC 8.92 RBC 4.46 L Hgb 11.3 L Hct 37.1 L MCV 83.2 MCH 25.3 MCHC 30.5 L RDW Std Deviation 50.1 H RDW Coeff of Sarah 16.7 H Plt Count 175 MPV 10.1 Immature Gran % (Auto) 0.3 Neut % (Auto) 70.2 Lymph % (Auto) 15.2 [place] % (Auto) 9.9 Eos % (Auto) 3.3 Baso % (Auto) 1.1 Neut # (Auto) 6.26 Lymph # (Auto) 1.36 [place] # (Auto) 0.88 H Eos # (Auto) 0.29 Baso # (Auto) 0.10 Immature Gran # (Auto) 0.03 Sodium 143 Potassium 3.0 L Chloride 98 Carbon Dioxide 37 H Anion Gap 8 BUN 51 H Creatinine 3.01 H D Est Cr Clr Drug Dosing 22.3 Est GFR ( Amer) 21.5 Est GFR (Non-Af Amer) 18.5 BUN/Creatinine Ratio 16.9 Glucose 113 H Calcium 9.8 Ferritin 28.2 PG Care Time/CCT Total # of Minutes Spent Total Time Spent with Patient: Total time spent is greater than 50% in coordination of care (as documented) at patient's floor/unit and/or counseling patient: Coding Level of Care Code 30428 SUB INP/OBS CARE 3/50MIN Diagnoses Chronic kidney disease, stage 4 (severe) N18.4 Diastolic CHF, acute on chronic I50.33 Chronic venous insufficiency I87.2 Secondary hyperparathyroidism N25.81
[2023-09-16] MEDS: BUMETANIDE 1 MG TAB PO SCH (11:36)
--- NOTE | 2023-09-16 13:32 | Discharge Summary ---
Discharge Summary Date of Service September 16, 2023 Principal Dx & Hospital Course #1 = Principal Diagnosis (1) Acute diastolic (congestive) heart failure: Acute on chronic diastolic CHF likely due to sodium mediated fluid retention. Improving, Safe/stable for home. Outpatient PCP, nephrology, CHF clinic follow-up. Extensive instructions on identifying/minimizing sodium. (2) Atrial fibrillation with rapid ventricular response: Anticoagulated, rate now better controlled. Suspect RVR was in response to CHF and hypoxia, although certainly the rate could also contribute in its own manner with diastolic failure from lack of filling time. Stable for home in this regard (3) Chronic kidney disease, stage 4 (severe): Patient is s/p left nephrectomy in 2011 (secondary to renal cell adenocarcinoma) BUN 48, creatinine 3.01 (baseline around 2.45), stable for home in this regard. Outpatient nephrology/PCP/CHF clinic follow-up. Inpatient nephrology input appreciated. (4) Wound of right leg: Daily wound care (5) Obstructive sleep apnea: CPAP HS (6) Hypertension: (7) H/O aortic valve replacement: (8) History of renal cell carcinoma: Plan DVT prophylaxis with Xarelto. Anticipate return to home once his breathing has returned to his baseline. (For clarification noted to use predominantly 2 and sometimes 3 L nasal cannula at home) Notes For Next Care Provider Medication Changes From Visit Nonegiven his sodium intake was excessive leading up to admission, and we have pulled off extra fluid (as evidenced by rising creatinine and lower and blood pressures) he appears to have had the extra fluid all pulled offand hopefully with a tighter sodium restriction (than the essentially sodium binging he was doing) we should not have to increase med management. Admission HPI Per Admitting Provider Kyler is a pleasant 83-year-old male with PMH of diastolic CHF, hyperlipidemia, gout, bioprosthetic AVR, chronic venous insufficiency, anxiety, FIFI, CKD stage IV, diabetes mellitus, atrial fibrillation (on Xarelto), HTN, and HLD. He presented for worsening SERVIN and lower extremity edema x 1 week. Patient reports that he has difficulty sitting up and walking 10 feet with living room before he is gasping for breath. He denies SOB at rest, or when lying flat on his back. Patient is on continuous oxygen supplementation at baseline (2L NC), however he is will occasionally bump up to 3L NC as needed. He reports his pulse ox has been 97% on 2L NC at home. CPAP at bedtime with oxygen. Patient took all of his regular morning medications; no recent change in medications. He reports good consistency with taking his Xarelto and Bumex. He does note that he does not watch his salt intake; was recently eating pulled pork and dessert at a last week, as well as steak and bread tramp at his anniversary over the weekend. Patient notes that his weight has changed around 8 pounds over the past week (going up and down); he reports he is back down to 252lb today. No sick contacts. He does note he has had dark-colored urine for the past 2 days. Patient does have a history of renal cell carcinoma s/p left nephrectomy in 2011. Patient is tachypneic at 28 RPM at time of admission; SpO2 is 100% on 4L NC. ED course: Metolazone 5mg p.o. Bumex 1 mg IV ROS: Patient endorses lightheadedness with standing, worsening SERVIN, intermittent chest palpitations, productive cough (clear sputum, which patient attributes to CPAP HS), changes in weight, swelling in legs, pain in right leg (patient attributes to wound), loose stool, dark urine x 2 days, Patient denies fever, chills, night-sweats, dizziness, falls, fainting, headache, chest pain, pleuritic CP, hemoptysis, abdominal pain, N/V, burning with urination, dysuria, urinary retention, urinary incontinence, or numbness/tingling in the arms or legs. Discharge Exam In general he is awake alert oriented pleasant no distress. HEENT normocephalic atraumatic mucous membranes moist. Breathing unlabored no accessory muscle use good effort. Skin without rashes pallor or icterus. Neuro without focal deficits Updated Medication List Medication Instructions Recorded Confirmed Type amoxicillin 500 mg tablet 2,000 mg PO DIRECTED PRN 1 HOUR 11/16/18 09/14/23 History PRIOR TO DENTAL PROCEDURES docusate sodium 100 mg capsule 100 mg PO QAM PRN Constipation 05/03/20 09/14/23 History cholecalciferol (vitamin D3) 50 50 mcg PO DAILY 07/10/22 09/14/23 History mcg (2,000 unit) capsule (Vitamin D3) magnesium 250 mg tablet 250 mg PO DAILY 07/10/22 09/14/23 History cyanocobalamin (vitamin B-12) 1,000 mcg IM Q90D #30 mL 09/23/22 09/14/23 Rx 1,000 mcg/mL injection solution metolazone 5 mg tablet 5 mg PO DAILY PRN weight gain #30 10/23/22 09/14/23 Rx tabs allopurinol 100 mg tablet 100 mg PO QAM #90 tabs 01/20/23 09/14/23 Rx bumetanide 2 mg tablet 3 mg (1.5 x 2 mg) PO DAILY 90 days 01/20/23 09/14/23 Rx #135 tabs tamoxifen 20 mg tablet 20 mg PO DAILY #90 tabs 01/21/23 09/14/23 Rx rivaroxaban 15 mg tablet 15 mg PO HS #90 tabs 02/09/23 09/14/23 Rx diltiazem HCl 120 mg capsule,24 120 mg PO DAILY #30 caps 03/19/23 09/14/23 Rx hr,extended release eplerenone 25 mg tablet 25 mg PO QAM #90 tabs 05/04/23 09/14/23 Rx Portable Oxygen #1 ea 05/25/23 09/14/23 Rx metoprolol succinate 200 mg 200 mg PO HS #30 tabs 06/01/23 09/14/23 Rx tablet,extended release 24 hr cyclobenzaprine 5 mg tablet 5 mg PO BID PRN muscle 07/02/23 09/14/23 Rx pain/stiffness #60 tabs calcitriol 0.25 mcg capsule 0.5 mcg (2 x 0.25 mcg) PO QAM #180 08/11/23 09/14/23 Rx caps mupirocin 2 % topical ointment 1 applic topical TID #22 grams 08/18/23 09/14/23 Rx tramadol 50 mg tablet 50 mg PO BID PRN Pain #60 tabs 08/18/23 09/14/23 Rx potassium chloride 10 mEq 10 meq PO BID #180 caps 09/16/23 Rx capsule,extended release Hospital Stay Data Consultations 09/14/23 18:38 ED Decision to Admit Stat 09/14/23 21:56 Consult Nephrology Routine Total Time Total Time Spent Total Time Spent (In Minutes): <30
--- NOTE | 2023-09-16 13:39 | Billing Data ---
Date of Service September 16, 2023 Coding Level of Care Code 99938 IN/OBS DISCH 30 MIN/LESS
--- NOTE | 2023-09-16 14:12 | Discharge Summary ---
Date of Service September 16, 2023 Admission HPI Per Admitting Provider Kyler is a pleasant 83-year-old male with PMH of diastolic CHF, hyperlipidemia, gout, bioprosthetic AVR, chronic venous insufficiency, anxiety, FIFI, CKD stage IV, diabetes mellitus, atrial fibrillation (on Xarelto), HTN, and HLD. He presented for worsening SERVIN and lower extremity edema x 1 week. Patient reports that he has difficulty sitting up and walking 10 feet with living room before he is gasping for breath. He denies SOB at rest, or when lying flat on his back. Patient is on continuous oxygen supplementation at baseline (2L NC), however he is will occasionally bump up to 3L NC as needed. He reports his pulse ox has been 97% on 2L NC at home. CPAP at bedtime with oxygen. Patient took all of his regular morning medications; no recent change in medications. He reports good consistency with taking his Xarelto and Bumex. He does note that he does not watch his salt intake; was recently eating pulled pork and dessert at a last week, as well as steak and bread tramp at his anniversary over the weekend. Patient notes that his weight has changed around 8 pounds over the past week (going up and down); he reports he is back down to 252lb today. No sick contacts. He does note he has had dark-colored urine for the past 2 days. Patient does have a history of renal cell carcinoma s/p left nephrectomy in 2011. Patient is tachypneic at 28 RPM at time of admission; SpO2 is 100% on 4L NC. ED course: Metolazone 5mg p.o. Bumex 1 mg IV ROS: Patient endorses lightheadedness with standing, worsening SERVIN, intermittent chest palpitations, productive cough (clear sputum, which patient attributes to CPAP HS), changes in weight, swelling in legs, pain in right leg (patient attributes to wound), loose stool, dark urine x 2 days, Patient denies fever, chills, night-sweats, dizziness, falls, fainting, headache, chest pain, pleuritic CP, hemoptysis, abdominal pain, N/V, burning with urination, dysuria, urinary retention, urinary incontinence, or numbness/tingling in the arms or legs. Admission Exam Per Admitting Provider General: no acute distress; non-toxic appearing; well-nourished; cooperative; SpO2 95% on 2 L NC HEENT: normocephalic, atraumatic; no scleral icterus; PERRLA; moist mucus membrane; vision and hearing grossly intact Neck: supple; negative JVP; no lymphadenopathy; trachea midline Skin: warm, dry without signs of tenting; no cyanosis; no rashes, bruising, lesions, or erythema noted CV: chest wall NTP; irregularly irregular rhythm around 80 bpm; S1/S2 normal; 3/6 systolic ejection murmur auscultated at the second ICS MCL; pulses intact and symmetric at radial, DP, and PT Lungs: no acute respiratory distress; symmetrical chest wall expansion; clear breath sounds across all lung kuhn w/o adventitious sounds; no wheezing ABD: Soft, NTP; BS present; no rebound/guarding; moderate distention secondary to body habitus MSK: no tics or fasciculations; significant non-pitting edema in the LEs B/L extending up to the knees, nonerythematous; wound dressed on the lateral aspect of the RLE Neuro: A&Ox3; normal mood and affect; fluent speech; no focal deficits; sensation grossly intact and symmetric in the LEs b/l Principal Diagnosis CHF Exacerbation Discharge Exam Constitutional WD/WN, vitals as above Respiratory Auscultation: + crackles (at base of lungs posteriorly, more pronounced on r. side); no diminished lung sounds Cardiovascular RRR, no murmur, no edema Extremities: normal capillary refill and + pedal edema; no calf tenderness Skin + skin tightening, + wound (on r. lower leg laterally) and + erythema (redness of lower legs/shins area suggestive of venous stasis) Psychiatric A+Ox3, euthymic affect Genitourinary no CVA tenderness Discharge Data Allergies Allergy/AdvReac Type Severity Reaction Status Date / Time Iodinated Contrast Media AdvReac Unknown PT ONLY Verified 09/14/23 17:56 [Iodinated Contrast- Oral HAS 1 and IV Dye] KIDNEY, CONTRAINDICATED. Consultations 09/14/23 18:38 ED Decision to Admit Stat 09/14/23 21:56 Consult Nephrology Routine Hospital Course (1) Diastolic CHF, acute on chronic: (2) Wound of right leg: (3) Chronic kidney disease, stage 4 (severe): Plan (1) Acute diastolic (congestive) heart failure: Worsening SERVIN and leg swelling x 1 week; Patient follows with heart failure clinic Last echocardiogram on 07/12/2022 revealed LVEF at 5055%; severe pulmonary HTN Repeat echocardiogram: LVEF, 60-65%, moderate concentric LV hypertrophy, mild- moderate mitral regurgitation, moderate tricuspid valve regurgitation BNP, 641 (last was 350 on 12/15/2022) Bumex 3 mg IV BID as inpatient; Metolazone 5 mg, PO, daily; Eplerenone during inpatient stay K supplementation BID; Heart healthy, low-sodium diet (1500 mL fluid restriction) during hospital stay - new weight morning after discharge, will be new dry weight (set pt) to determine when PRN Bumex is necessary - daily weights after discharge to help gauge fluid status - continue outpt meds: Bumex 3 mg, PO, daily; Metolazone 5 mg, PO, daily; Eplerenone, 25 mg, PO, daily (2) Atrial fibrillation with rapid ventricular response: May also be contributing to difficulty with breathing Rate controlled at time of admission Metoprolol 5 mg IV q6h as needed for HR >140bpm Continue diltiazem, metoprolol, Xarelto (3) Chronic kidney disease, stage 4 (severe): Patient is s/p left nephrectomy in 2011 (secondary to renal cell adenocarcinoma) BUN 48, creatinine 2.80 (baseline around 2.45), EGFR 20.2 on arrival Cr, 3.01 <-- 2.66 <-- 2.80 during stay Avoid nephrotoxic agents for possible UA: LE, +1; no other signs concerning for UTI Bladder scan Q-shift during hospital stay; Nephrology consulted, recommendations followed and incorporated into plan (4) Hypokalemia: Mild; K, 3.4 on arrival, 3.0 on discharge Potassium chloride 20mEq given Continue potassium supplementation 10mEq BID at home (5) Wound of right leg Daily wound care, use OTC dressings to prevent infection (6) Obstructive sleep apnea CPAP HS; patient may use home CPAP or BiPAP if brought in - continue home CPAP use (7) Hypertension: (8) H/O aortic valve replacement: (9) History of renal cell carcinoma: Total Time Total Time Spent Total Time Spent (In Minutes): see attending attestation Discharge Plan Discharge Items Patient Disposition: Home - Self-Care Reason For Visit: sob dyspnea Discharge Diagnosis: acute on chronic CHF (due to dietary sodium causing excess fluid retention) Activity: Resume your previous activity Non-emergency contact: Primary Care Provider, Kinesiology Professor and Freezer Operator Call non-emergency contact if: you have any medication questions Follow-up/Referrals: Surinder Churchill DO [Physician] - 10/26/23 1:15 pm (Appointment already scheduled with Dr. Curry on October 25 at 1:15. ) Zackery Cochran DO [Primary Care Provider] - 09/24/23 1:00 pm (Hospital follow up scheduled September 23 at 1:00 with Carmela Olvera) Diet: Low Sodium (2gm) Addtl Attending Provider Instructions: Congestive Heart Failure: Discharge Instructions Congestive Heart Failure Congestive Heart Failure essentially means your heart is able to have a "traffic jam" of fluid that backs up into your lungs. Fluid in lungs, blocks up breathing space making you feel short of breath. In the hospital, our job is to get the fluid off so that you are able to breathe better, and then get you back on track with medication and lifestyle adjustments to keep the traffic jam from happening again. Salt (Sodium) About 90% of people admitted to the hospital with fluid back up into the lungs get there because of too much salt in their diet. The way our kidneys work: when you take a small amount of sodium, your kidneys hold onto a small amount of water. When you take a large amount of sodium, your kidneys hold onto a large amount of water. When this happens, your blood vessels get flooded, your heart gets overfilled, and the fluid backs up into your lungs. Most people know to avoid the salt shaker, but sodium is in almost anything prepackaged/prepared, as a preservative or as a flavoring agent. Most of the people we take care of who are here from fluid getting backed up, because of too much sodium do not use a salt shaker at all. Get into the habit of looking at food labels, so you can see how much sodium is in the foods you eat. The most important number to look at is how much sodium is in each serving. But also notice the size of a serving. VHT will frequently make a serving size so tiny that it does not look like there is much sodium per serving, but a normal person might eat 3 or 4 servings of the food and take in a lot more sodium. Keep a "budget" of how much sodium you take in in each day. Most people stay out of trouble and stay out of the hospital as long as they stay "under budget". Majority of congestive heart failure patients do well if they take less than 2000 mg of sodium a day. Because our kidneys retain water based on how much sodium they are seeing in any given moment, it is also important to stay at less than about 500 mg in any given meal. This is because even if you stayed at less than 2000 mg of sodium, but ate it all at once, your kidneys would retain fluid at a rate as though you are taking in much more sodium than you actually are. Following How You Are Doing (Wet Versus Dry) Because managing congestive heart failure is an ongoing process, it is very important to learn how to follow your signs and symptoms and track how you are doing at home. This will allow you to catch problems before they become a big deal. In general, as your health care team, we look at managing congestive heart failure chronically as a balance of being "wet" (flooded with fluid) versus being "dry" (dehydrated from treatment). Wet - signs of fluid retention that would warrant further evaluation: Check your weight daily. If your weight goes up by more than 2 pounds in 1 day, it is almost certainly fluid related. This should warrant further thought, and/or a call to your doctor Follow your breathingmost of the time, early on when fluid backs up into your lungs, you will first start to notice shortness of breath when walking, or when lying flat. If you notice either of these, this should warrant further thought, and/or a call to your doctor If you notice both an increase in weight and worsening breathing, that definitely warrants getting seen as soon as possible "Dry"while managing the disease our goal is to keep you from getting "wet"; however, the medications can sometimes cause a degree of dehydration. Most people with congestive heart failure need frequent lab work (basic metabolic panel). Generally when there has been a change in diuretic dosing (a change in the water pill) or any other major changes, lab work should be followed closely and more frequently afterwards. This is because lab work will frequently show early signs of dehydration before you start to feel bad. Frequent symptoms of being dehydrated include: feeling weak and lightheaded, having lower blood pressures, making less urine than usual, or having a very dry mouth. If you notice any of these signs/symptoms, and you are not due for lab work, it would be quite reasonable to call your doctor to see if lab work or a visit could be arranged. Heart Failure Management Checklist * Limit Salt (Sodium) Intake to 2000mg (2g) per day and 500mg (0.5g) per meal * Check weight daily (in same clothes, without shoes) every morning * Use the provided chart to enter your weight and salt intake for the day Are you too wet? * If you gained 2lb or more - make sure to take your water pill * If your breathing is not good (you are more short of breath than usual) call your doctor regardless of weight change * If you gained 2lb or more and you are short of breath, see your doctor or come to the emergency room Are you too dry? * If you fee weak or lightheaded, have lower blood pressures, make less urine than usual, or have a very dry mouth. Call your doctor Pending Studies at Discharge: No Stand-Alone Forms: My [facility] Conductor, Smoking Cessation Medications and DC Order Prescriptions: Continued cyanocobalamin (vitamin B-12) 1,000 mcg/mL solution 1,000 mcg IM Q90D Qty: 30 0RF Rx Instructions: PER PT "CAN'T REMEMBER WHEN HAD IT LAST". metolazone 5 mg tablet 5 mg PO DAILY PRN (Reason: weight gain) Qty: 30 5RF rivaroxaban 15 mg tablet 15 mg PO HS Qty: 90 3RF eplerenone 25 mg tablet 25 mg PO QAM Qty: 90 3RF metoprolol succinate 200 mg tablet extended release 24 hr 200 mg PO HS Qty: 30 3RF cyclobenzaprine 5 mg tablet 5 mg PO BID PRN (Reason: muscle pain/stiffness) Qty: 60 3RF calcitriol 0.25 mcg capsule 0.5 mcg PO QAM Qty: 180 3RF potassium chloride 10 mEq capsule, extended release 10 meq PO BID Qty: 180 1RF allopurinol 100 mg tablet 100 mg PO QAM Qty: 90 3RF bumetanide 2 mg tablet 3 mg PO DAILY 90 Days Qty: 135 3RF tamoxifen 20 mg tablet 20 mg PO DAILY Qty: 90 3RF diltiazem HCl 120 mg capsule,extended release 24 hr 120 mg PO DAILY Qty: 30 8RF mupirocin 2 % ointment 1 applic topical TID Qty: 22 2RF tramadol 50 mg tablet 50 mg PO BID PRN (Reason: Pain) Qty: 60 0RF amoxicillin 500 mg tablet 2,000 mg PO DIRECTED PRN (Reason: 1 HOUR PRIOR TO DENTAL PROCEDURES) Patient Comments: 2,000 mg PO 1 hour prior to dental procedure.; Rx Instructions: TAKE 4 CAPSULES BY MOUTH 1 HOUR PRIOR TO DENTAL WORK (DME) Portable Oxygen Misc See Rx Instructions .Route Qty: 1 0RF Rx Instructions: As directed docusate sodium 100 mg Capsule 100 mg PO QAM PRN (Reason: Constipation) magnesium 250 mg Tablet 250 mg PO DAILY cholecalciferol (vitamin D3) [Vitamin D3] 50 mcg (2,000 unit) Capsule 50 mcg PO DAILY Discharge Orders: Discharge Order- CHF (Routine); Ordered 09/16/23 Ordered By: Jerrell Amador/Other Patient Handouts: Heart Failure Make Changes Diet Admission Data Admit Date/Time: 09/14/23 19:07 Attending Provider: Jerrell Douglas Admit Provider: Kyler Toure Primary Care Provider: Zackery Cochran Other Providers: Kyler Toure; Surinder Churchill.
[2023-09-17] MEDS ORDERED: FERROUS GLUCONATE 324 MG TAB PO SCH (09:00)
== END 2023-09-16 16:00 | disposition home or self-care (01) | DRG 291 ==
LOC: ED 15:27 → 4W 19:07 → SUATTDRO 19:07 → 4W 21:15

== ENCOUNTER 2023-12-06 09:54 | Inpatient (IN) ==
--- NOTE | 2023-12-06 10:06 | Emergency Department Note ---
Impression & Plan Acute and chronic respiratory failure, Pulmonary edema, Diastolic CHF, acute on chronic, Chronic kidney disease, stage 4 (severe) ED Provider Note NAME: MYEHSA TRAN Jr AGE: 83 SEX: M : 1940 ARRIVES VIA: Walk-In INFORMANT: Patient ED PROVIDER(S): Wilson Cummings MD CHIEF COMPLAINT: Shortness of breath PLAN: Disposition: Admit MEDICAL DECISION MAKING: The patient is a pleasant 83 gentleman with a past medical history of CKD with history of nephrectomy, chronic diastolic heart failure, bioprosthetic aortic valve replacement, paroxysmal atrial fibrillation on Xarelto, morbid obesity, chronic venous insufficiency who presents to the emergency department for worsening shortness of breath over the past week where he gets short of breath with minimal exertion and has increased his home oxygen to 3 L from his baseline 2 L. Of note, the patient is on 3 mg of Bumex with metolazone prescribed as needed for weight gain which she has been taking but has had no improvement in symptoms. Per last cardiology office visit patient's dry weight is 235 and today the patient is 255. Patient reports he still urinates daily but was in discussion with his abrasive worker to begin preparations for dialysis arrangements of a fistula placement in the near future. Of note, the patient does admit that his weight has been up in the last week where he was weighing 241-245. They report they did go to camp this weekend in [place] and he does admit to eating a corn dog and German food. On evaluation the patient is chronically ill-appearing, mildly dyspneic at rest but no acute distress, afebrile blood pressure 90s/60s and O2 saturation in the low to mid 90s slightly greater on 2 L nasal cannula. He appears hypervolemic with 1+ bilateral extremity pitting edema. He has diminished breath sounds of bilateral mid to lower lung kuhn. EKG without overt acute ischemia. CXR demonstrates congestive change with pulmonary edema. WBC and platelets within normal limits. H/H similar to prior. There is no left shift. Creatinine is 3.3 similar to recent upper end of prior range values. There is no metabolic acidosis. Electrolytes and LFTs are unremarkable. High- sensitivity troponin 16.7, within normal limits. Lipase is not elevated. Respiratory BioFire was negative. Given the patient is 20lbs above his dry weight in the setting of his worsening dyspnea on exertion related to hypervolemia in the setting of his CKD patient and agree with plan for admission for further management. IV Bumex ordered. Case was discussed with CHRISTINE Celeste PAC, with CHRISTINE Ag hospitalist who will evaluate the patient for admission. Triage Nursing notes reviewed and agree them. Prior/external medical records reviewed Vital Signs: reviewed Differential diagnosis: Reactive airway disease, pneumonia, pneumothorax, COPD, CHF, infections, cardiac ischemia, pulmonary embolism, musculoskeletal, gastrointestinal, as well as other pathologies. ER treatment provided: See below. Diagnostics interpreted by me: ECG: Atrial fibrillation, 82 bpm, no ectopy, nonspecific ST and T wave abnormality, no overt ST elevation or depression, QTc 474, QRS 90. Similar to September 14, 2023. Cardiac Monitoring: An order for continuous cardiac monitoring was placed and demonstrated Atrial fibrillation, 82 bpm, no ectopy. Laboratory studies: See below Imaging studies: See below Consultation(s): Case was discussed with CHRISTINE Celeste PAC, with CHRISTINE Ag hospitalist who will evaluate the patient for admission. HPI: The patient is a pleasant 83 gentleman with a past medical history of CKD with history of nephrectomy, chronic diastolic heart failure, bioprosthetic aortic valve replacement, paroxysmal atrial fibrillation on Xarelto, morbid obesity, chronic venous insufficiency who presents to the emergency department for worsening shortness of breath over the past week where he gets short of breath with minimal exertion and has increased his home oxygen to 3 L from his baseline 2 L. Of note, the patient is on 3 mg of Bumex with metolazone prescribed as needed for weight gain which she has been taking but has had no improvement in symptoms. Per last cardiology office visit patient's dry weight is 235 and today the patient is 255. Patient reports he still urinates daily but was in discussion with his abrasive worker to begin preparations for dialysis arrangements of a fistula placement in the near future. Of note, the patient does admit that his weight has been up in the last week where he was weighing 241-245. They report they did go to camp this weekend in [place] and he does admit to eating a corn dog and German food. ROS: See above HPI for pertinent positives & negatives. A total of 10 systems reviewed and were otherwise negative. VITALS:See Below PHYSICAL EXAMINATION: GENERAL: Awake, alert, chronically ill/dyspneic-appearing, in no distress, BMI 40.3. HENT: Normocephalic, atraumatic. Oropharynx unremarkable. EYES: Normal conjunctiva. Sclera non-icteric. NECK: Supple. No nuchal rigidity. FROM. No JVD. RESPIRATORY: Diminished breath sounds of bilateral mid to lower lung kuhn. CARDIAC: Regular rate, irregular rhythm. Extremities warm and well perfused. Pulses equal. ABDOMEN: Soft, non-distended. No tenderness to palpation. No rebound or guarding. No masses. MUSCULOSKELETAL: Chest examination reveals no tenderness. The back is symmetrical on inspection without obvious abnormality. There is no CVA tenderness to palpation. No joint edema. LOWER EXTREMITIES: Calves are equal size bilaterally and non-tender. 1+ BLE edema. No discoloration. NEURO: Normal sensorium. No sensory or motor deficits noted. SKIN: No rash or jaundice noted. Wilson Cummings MD Past Med/Surg History Problem List (Updated 12/06/23 @ 20:51 by Wilson Cummings MD) Volume overload Pulmonary edema (Acute) Acute and chronic respiratory failure (Acute) Traumatic open wound of left lower leg with delayed healing (Acute) Lower extremity edema Decreased calculated glomerular filtration rate (GFR) Secondary hyperparathyroidism History of aortic valve disease s/p AVR (2006) History of renal cell carcinoma SERVIN (dyspnea on exertion) (Acute) Diastolic CHF, acute on chronic (Acute) Hypokalemia Chronic venous insufficiency (Chronic) Traumatic open wound of right lower leg (Acute) Atrial fibrillation with rapid ventricular response (Acute) Wound of right leg Class 3 severe obesity due to excess calories with body mass index (BMI) of 40.0 to 44.9 in adult Gynecomastia, male Family history of breast cancer gene mutation in first degree relative Hx of gynecomastia Left breast lump Nocturnal hypoxemia Complex sleep apnea syndrome Chronic kidney disease, stage 4 (severe) (Chronic) Diabetes mellitus Atrial fibrillation (Chronic) Hypertension (Chronic) Obstructive sleep apnea (Chronic) BIPAP Shortness of breath Acute diastolic (congestive) heart failure Hypermagnesemia Iron deficiency anemia Arm pain Hand numbness Foraminal stenosis of cervical region Vitamin D deficiency Anxiety (Acute) Venous insufficiency (chronic) (peripheral) Morbid obesity with BMI of 40.0-44.9, adult H/O aortic valve replacement Gout Microcytic anemia Chronic low back pain with right-sided sciatica B12 deficiency Chronic diastolic CHF (congestive heart failure) (Chronic) Hyperlipidemia (Chronic) Medical History Aspiration into respiratory tract Acute kidney injury superimposed on CKD Morbid obesity History of anxiety Hx of gout Hx of rotator cuff tear Difficulty with raising arms without extreme pain, currently in PT Hx of osteoarthritis Hx of impacted cerumen History of COVID-19 01/2021 > "mild" cold symptoms, resolved Prediabetes Kidney stones Hx x7 Renal cell adenocarcinoma s/p nephrectomy Chronic kidney disease, stage III (moderate) CKD (chronic kidney disease), stage III Surgical History Hx of cardiac catheterization 11/2020 > no stents History of total bilateral knee replacement History of esophagogastroduodenoscopy (EGD) Hx of colonoscopy Hx of tonsillectomy Hx of cystoscopy w/stone basketing History of left nephrectomy History of spinal surgery Aortic valve replaced bioprosthesis, 2006 History of gastric bypass History of cholecystectomy Family History Mother Breast cancer Lung disease Grandmother (Maternal) Breast cancer Aunt Breast cancer Sister Breast cancer Father Myocardial infarction Arthritis Denies family history of Ovarian cancer Prostate cancer Colorectal cancer Social History Smoking Status: Never smoker Second Hand Exposure: Yes; Do You Dip or Chew Tobacco: No; Tobacco Cessation Education Requested by Patient: No Hx Alcohol Use: No Hx Substance Use: No Preferred Language: Kazakh Communication Ability: Effective Visual Impairment: No Limitations Hearing Ability: Normal Environmental Health Sanitarian Required: No Beliefs That Will Affect Care: None marital status: Current Living Situation: Spouse Current Living Situation Comment: Lives w/ , son lives in basement current occupational status: retired 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 Allergies Allergies Allergy/AdvReac Type Severity Reaction Status Date / Time Iodinated Contrast Media AdvReac Unknown PT ONLY Verified 12/06/23 11:21 [Iodinated Contrast- Oral HAS 1 and IV Dye] KIDNEY, CONTRAINDICATED. Home Meds Home Medications Medication Instructions Recorded Confirmed amoxicillin 500 mg tablet 2,000 mg PO DIRECTED PRN 1 HOUR 11/16/18 12/06/23 PRIOR TO DENTAL PROCEDURES docusate sodium 100 mg capsule 100 mg PO QAM PRN Constipation 05/03/20 12/06/23 cholecalciferol (vitamin D3) 50 50 mcg PO DAILY 07/10/22 12/06/23 mcg (2,000 unit) capsule (Vitamin D3) magnesium 250 mg tablet 250 mg PO DAILY 07/10/22 12/06/23 Previous Rx's Medication Instructions Recorded cyanocobalamin (vitamin B-12) 1,000 mcg IM Q90D #30 mL 09/23/22 1,000 mcg/mL injection solution metolazone 5 mg tablet 5 mg PO DAILY PRN weight gain #30 10/23/22 tabs allopurinol 100 mg tablet 100 mg PO QAM #90 tabs 01/20/23 bumetanide 2 mg tablet 3 mg (1.5 x 2 mg) PO DAILY 90 days 01/20/23 #135 tabs tamoxifen 20 mg tablet 20 mg PO DAILY #90 tabs 01/21/23 rivaroxaban 15 mg tablet 15 mg PO HS #90 tabs 02/09/23 eplerenone 25 mg tablet 25 mg PO QAM #90 tabs 05/04/23 Portable Oxygen #1 ea 05/25/23 calcitriol 0.25 mcg capsule 0.5 mcg (2 x 0.25 mcg) PO QAM #180 08/11/23 caps mupirocin 2 % topical ointment 1 applic topical TID #22 grams 08/18/23 potassium chloride 10 mEq 10 meq PO BID #180 caps 09/29/23 capsule,extended release metoprolol succinate 200 mg 200 mg PO HS #90 tabs 10/05/23 tablet,extended release 24 hr cyclobenzaprine 5 mg tablet 5 mg PO BID PRN muscle 11/20/23 pain/stiffness #60 tabs tramadol 50 mg tablet 50 mg PO BID PRN Pain #60 tabs 11/20/23 diltiazem HCl 120 mg capsule,24 120 mg PO DAILY #30 caps 12/01/23 hr,extended release Results & Data (ED) Vital Signs Vital Signs - 24 hr 12/06/23 09:55 12/06/23 10:15 12/06/23 10:15 Temperature 36.6 C Temperature Source Temporal Artery Scan Pulse Rate 94 H 83 Pulse Rate from SpO2 Sensor Pulse Rhythm Respiratory Rate 18 Blood Pressure 96/69 L Blood Pressure Mean 78 Pulse Oximetry 96 Oxygen Delivery Method Nasal Cannula Oxygen Flow Rate 2 Sepsis Recent Fever Within 48 Hours No Sepsis New/Unexplained Change in Mental Status N/A Sepsis Action Taken by Nursing No Action Required 12/06/23 10:15 12/06/23 10:18 12/06/23 10:27 Temperature Temperature Source Pulse Rate 76 88 84 Pulse Rate from SpO2 Sensor 91 H 84 Pulse Rhythm Irregular Respiratory Rate 33 H 32 H 20 Blood Pressure 92/76 L 104/75 Blood Pressure Mean 81 84 Pulse Oximetry 99 99 98 Oxygen Delivery Method Nasal Cannula Nasal Cannula Oxygen Flow Rate 2 Sepsis Recent Fever Within 48 Hours Sepsis New/Unexplained Change in Mental Status Sepsis Action Taken by Nursing 12/06/23 10:36 12/06/23 10:51 12/06/23 11:03 Temperature Temperature Source Pulse Rate 79 75 79 Pulse Rate from SpO2 Sensor 79 74 80 Pulse Rhythm Respiratory Rate 24 25 H 22 Blood Pressure 92/70 L 106/69 Blood Pressure Mean 77 81 Pulse Oximetry 100 99 99 Oxygen Delivery Method Oxygen Flow Rate Sepsis Recent Fever Within 48 Hours Sepsis New/Unexplained Change in Mental Status Sepsis Action Taken by Nursing 12/06/23 11:15 12/06/23 11:54 Temperature Temperature Source Pulse Rate 77 76 Pulse Rate from SpO2 Sensor 79 80 Pulse Rhythm Respiratory Rate 23 25 H Blood Pressure 115/60 112/86 Blood Pressure Mean 78 94 Pulse Oximetry 99 100 Oxygen Delivery Method Oxygen Flow Rate Sepsis Recent Fever Within 48 Hours Sepsis New/Unexplained Change in Mental Status Sepsis Action Taken by Nursing Laboratory Data Attestation: I reviewed the patient's lab results. 12/06/23 10:24 12/06/23 10:24 Lab Results 12/06/23 12/06/23 Range/Units 10:24 12:07 WBC 9.37 (4.8-10.8) K/ul RBC 4.66 L (4.70-6.10) M/uL Hgb 12.0 L (14.0-18.0) g/dl Hct 39.9 L (42.0-52.0) % MCV 85.6 (80.0-100.0) fL MCH 25.8 (25.0-34.0) pg MCHC 30.1 L (32.0-36.0) g/dL RDW Std Deviation 52.3 H (36.4-46.3) fL RDW Coeff of Sarah 16.7 H (11.5-14.5) % Plt Count 179 (130-400) K/uL MPV 10.8 (9.4-12.4) fL Immature Gran % (Auto) 0.4 % Neut % (Auto) 78.1 % Lymph % (Auto) 11.6 % [place] % (Auto) 6.9 % Eos % (Auto) 1.9 % Baso % (Auto) 1.1 % Neut # (Auto) 7.31 H (1.40-6.50) K/uL Lymph # (Auto) 1.09 L (1.20-3.40) K/uL [place] # (Auto) 0.65 H (0.11-0.59) K/uL Eos # (Auto) 0.18 (0.00-0.50) K/uL Baso # (Auto) 0.10 (0.00-0.20) K/uL Immature Gran # (Auto) 0.04 (0.01-0.20) K/uL PT 14.6 H (9.0-12.0) Seconds INR 1.4 H (0.9-1.1) Sodium 140 (136-145) mmol/L Potassium 4.6 (3.5-5.1) mmol/L Chloride 106 (98-107) mmol/L Carbon Dioxide 27 (21-32) mmol/L Anion Gap 7 (3-11) BUN 50 H (6-23) mg/dl Creatinine 3.39 H (0.6-1.4) mg/dl Est Cr Clr Drug Dosing 20.9 ml/min Est GFR ( Amer) 18.6 ml/min Est GFR (Non-Af Amer) 16.1 ml/min BUN/Creatinine Ratio 14.7 (10-20) Glucose 119 H (70-99(Fasting)) mg/dl Calcium 9.7 (8.6-10.3) mg/dl Phosphorus 3.7 (2.5-4.9) mg/dl Magnesium 2.3 (1.7-2.4) mg/dl Total Bilirubin 1.1 H (0.2-1.0) mg/dl AST 21 (13-39) U/L ALT 13 (7-52) U/L Alkaline Phosphatase 65 (34-104) U/L Troponin I High Sens 16.7 (0-20) pg/ml Total Protein 6.7 (6.0-8.3) gm/dl Albumin 3.9 (3.4-5.0) gm/dl Globulin 2.8 (2.5-4.0) gm/dl Albumin/Globulin Ratio 1.4 (0.9-2) Lipase 23 (11-82) U/L Procalcitonin Cancelled Urine Color Yellow Urine Appearance Clear (Clear) Urine pH 6.0 (4.5-7.5) Ur Specific [place] 1.008 (1.000-1.030) Urine Protein Negative (Negative) Urine Glucose (UA) Negative (Negative) Urine Ketones Negative (Negative) Urine Blood Negative (Negative) Urine Nitrite Negative (Negative) Urine Bilirubin Negative (Negative) Urine Urobilinogen Negative (Negative) Ur Leukocyte Esterase Trace H (Negative) Urine WBC (Auto) 0-5 (0-5) /hpf Urine RBC (Auto) 0-2 (0-2) /hpf U Hyaline Cast (Auto) 3-5 H (0-2) /lpf U Epithel Cells (Auto) 0-2 (0-2) /hpf Urine Bacteria (Auto) None Seen (None Seen) Ur Random Creatinine 36.7 mg/dl U Random Total Protein 16.6 H (0-11.9) mg/dl Protein/Creatinin Ratio 0.5 H (0-0.2) Adenovirus (PCR) Not Detected (NotDetected) B. pertussis DNA (PCR) Not Detected (NotDetected) B.parapertussis DNA PCR Not Detected (NotDetected) C. pneumoniae DNA (PCR) Not Detected (NotDetected) Coronavirus OC43 (PCR) Not Detected (NotDetected) Coronavirus HKU1 (PCR) Not Detected (NotDetected) Coronavirus 229E (PCR) Not Detected (NotDetected) SARS-CoV-2 (PCR) Not Detected (NotDetected) Coronavirus NL63 (PCR) Not Detected (NotDetected) Human Metapneumovir PCR Not Detected (NotDetected) Influenza Type A (PCR) Not Detected (NotDetected) Influenza Type B (PCR) Not Detected (NotDetected) M. pneumoniae (PCR) Not Detected (NotDetected) Parainfluenza 1 (PCR) Not Detected (NotDetected) Parainfluenza 2 (PCR) Not Detected (NotDetected) Parainfluenza 3 (PCR) Not Detected (NotDetected) Parainfluenza 4 (PCR) Not Detected (NotDetected) RSV (PCR) Not Detected (NotDetected) Entero/Rhino (PCR) Not Detected (NotDetected) Administered Medications Metoprolol Succinate (Metoprolol Succ 50mg Ext Rel Tab) 200 mg PO HS [facility] Stop: 01/05/24 20:59 Last Admin: 12/06/23 20:11 Dose: Not Given Documented By: MED Miscellaneous (Eplerenone: Order Awaiting Action) 1 each N/A QS [facility] Stop: 01/05/24 15:59 Last Admin: 12/06/23 18:28 Dose: Not Given Documented By: ABH Potassium Chloride (Potassium Chloride 10 Meq Tabcr) 10 meq PO BID [facility] Stop: 01/05/24 20:59 Last Admin: 12/06/23 20:09 Dose: 10 meq Documented By: MED Rivaroxaban (Rivaroxaban 15 Mg Tab) 15 mg PO QDD [facility] Stop: 01/05/24 16:29 Last Admin: 12/06/23 17:38 Dose: 15 mg Documented By: ABH Tramadol HCl (Tramadol Hcl 50 Mg Tablet) 50 mg PO BID PRN PRN Reason: Pain 6-10 Stop: 01/05/24 14:08 Last Admin: 12/06/23 20:10 Dose: 50 mg Documented By: MED Discontinued Medications Bumetanide 4 mg/ Syringe 16 mls @ 4 mls/min IV ONE ONE Stop: 12/06/23 11:54 Last Admin: 12/06/23 13:40 Dose: 4 mls/min Documented By: NISHA Metolazone (Metolazone 5 Mg Tablet) 5 mg PO NOW STA Stop: 12/06/23 16:00 Last Admin: 12/06/23 16:38 Dose: 5 mg Documented By: [facility] Imaging Data Radiologist's Impression: Chest X-Ray 12/06/23 10:04 XR chest 1V portable HISTORY: 83 years-old Male Chest pain, nonspecific COMPARISON: 09/14/2023 TECHNIQUE: AP view of the chest FINDINGS: Cardiac silhouette is enlarged. Pulmonary vascular congestion with interstitial coarsening. Small pleural effusions with mild bibasilar densities. No pneumothorax. Bones appear grossly intact. IMPRESSION: 1. Cardiomegaly with pulmonary edema. 2. Small pleural effusions with mild bibasilar opacities. ACT 112: Negative or not required by law. The above report was generated using voice recognition software. It may contain grammatical, syntax or spelling errors. Electronically signed by: Pedro Pablo Goode M.D. 12/06/2023 10:39 AM Discharge Plan Visit Data Chief Complaint: Shortness of Breath/Dyspnea Stated Complaint: SHORTNESS OF BREATH, HEADACHE, TACHYCARDIA ED Provider: Wilson Cummings Discharge Problem: Acute and chronic respiratory failure, Pulmonary edema, Diastolic CHF, acute on chronic, Chronic kidney disease, stage 4 (severe) Patient Disposition: Admitted As Inpatient Discharge Instructions Interventions: ED Discharge Assessment Last Done: 12/06/23 13:38 Discharge Problem: Acute and chronic respiratory failure Qualifiers: Respiratory failure complication: hypoxia Qualified Code(s): J96.21 - Acute and chronic respiratory failure with hypoxia Pulmonary edema Qualifiers: Chronicity: acute Qualified Code(s): J81.0 - Acute pulmonary edema
--- NOTE | 2023-12-06 10:40 | XRay Report ---
XR chest 1V portable HISTORY: 83 years-old Male Chest pain, nonspecific COMPARISON: 09/14/2023 TECHNIQUE: AP view of the chest FINDINGS: Cardiac silhouette is enlarged. Pulmonary vascular congestion with interstitial coarsening. Small ple ural effusions with mild bibasilar densities. No pneumothorax. Bones appear grossly intact. IMPRESSION: 1. Cardiomegaly with pulmonary edema. 2. Small pleural effusions with mild bibasilar opacities. ACT 112: Negative or not required by law. The above report was generated using voice recognition software. It may contain grammatical, syntax o r spelling errors. Electronically signed by: Pedro Pablo Goode M.D. 12/06/2023 10:39 AM
[2023-12-06 10:49] LABS: Basophils % (auto) 1.1 %; Eosinophils # (auto) 0.18 K/uL (0.00-0.50); Eosinophils % (auto) 1.9 %; Hematocrit (blood only) 39.9 % (42.0-52.0); Immature Granulocytes # (auto) 0.04 K/uL (0.01-0.20); Immature Granulocytes % (auto) 0.4 %; Lymphocytes # (auto) 1.09 K/uL (1.20-3.40); Lymphocytes % (auto) 11.6 %; Mean Corpuscular Hemoglobin 25.8 pg (25.0-34.0); Mean Corpuscular Hgb Conc 30.1 g/dL (32.0-36.0); Mean Corpuscular Volume 85.6 fL (80.0-100.0); Mean Platelet Volume 10.8 fL (9.4-12.4); Monocytes # (auto) 0.65 K/uL (0.11-0.59); Monocytes % (auto) 6.9 %; Neutrophils # (auto) 7.31 K/uL (1.40-6.50); Neutrophils % (auto) 78.1 %; Platelet Count 179 K/uL (130-400); RDW Coefficient of Variation 16.7 % (11.5-14.5); RDW Standard Deviation 52.3 fL (36.4-46.3); Red Blood Count 4.66 M/uL (4.70-6.10); White Blood Count 9.37 K/ul (4.8-10.8)
[2023-12-06 10:59] LABS: Albumin Globulin Ratio 1.4 (0.9-2); Albumin Level 3.9 gm/dl (3.4-5.0); BUN Creatinine Ratio 14.7 (10-20); Bilirubin,Total 1.1 mg/dl (0.2-1.0); Calcium 9.7 mg/dl (8.6-10.3); Creatinine Clr Calc Pharmacy 20.9 ml/min; Est GFR (African American) 18.6 ml/min; Est GFR (Non-African American) 16.1 ml/min; Globulin 2.8 gm/dl (2.5-4.0); Magnesium 2.3 mg/dl (1.7-2.4); Phosphorus 3.7 mg/dl (2.5-4.9); Potassium 4.6 mmol/L (3.5-5.1); Total Protein 6.7 gm/dl (6.0-8.3)
[2023-12-06 11:06] LABS: Troponin I High Sensitivity 16.7 pg/ml (0-20)
[2023-12-06 11:10] LABS: INR 1.4 (0.9-1.1); Prothrombin Time 14.6 Seconds (9.0-12.0)
[2023-12-06 11:34] LABS: Adenovirus PCR Not Detected (NotDetected); Bordetella parapertussis PCR Not Detected (NotDetected); Bordetella pertussis PCR Not Detected (NotDetected); Chlamydia pneumoniae PCR Not Detected (NotDetected); Coronavirus 229E PCR Not Detected (NotDetected); Coronavirus CoV-2 (COVID19)PCR Not Detected (NotDetected); Coronavirus HKU1 PCR Not Detected (NotDetected); Coronavirus NL63 PCR Not Detected (NotDetected); Coronavirus OC43PCR Not Detected (NotDetected); Human Metapneumovirus PCR Not Detected (NotDetected); Influenza A PCR Not Detected (NotDetected); Influenza B PCR Not Detected (NotDetected); Mycoplasma pneumoniae PCR Not Detected (NotDetected); Parainfluenza Virus 1 PCR Not Detected (NotDetected); Parainfluenza Virus 2 PCR Not Detected (NotDetected); Parainfluenza Virus 3 PCR Not Detected (NotDetected); Parainfluenza Virus 4 PCR Not Detected (NotDetected); Respiratory Syncytial VirusPCR Not Detected (NotDetected); Rhinovirus/Enterovirus PCR Not Detected (NotDetected)
--- NOTE | 2023-12-06 12:09 | History & Physical Report ---
Date of Service December 06, 2023 Assessment & Plan (1) SERVIN (dyspnea on exertion): Plan: Admit to [facility] telemetry on pulse oximetry Currently stable and is baseline 2 L nasal cannula and otherwise stable Presented to the ED this a.m. with complaints of progressive weight gain/swelling and increased respiratory symptoms compared to baseline Noted to have signs of pulmonary edema bilateral pleural effusions on chest x- ray with increased weight gain Suspect his volume overload is likely a combination of his severe CKD and noncompliance with sodium restriction, as well as not following instructions to start as needed metolazone for increased weight gain compared to dry weight of 245 pounds Weight today is 255 pounds Status post 4 mg IV Bumex in the ED, patient confirms he did have his a.m. dose of 3 mg p.o. Bumex Will monitor urine output and blood pressure for the next few hours to see how he responds to the 4 mg IV Bumex Will plan to continue patient on 4 mg IV Bumex twice daily 17 and will consider adding his home p.o. metolazone Monitor intake/output every shift and daily weights Home Xarelto for DVT prophylaxis Heart healthy/renal dialysis diet with 2 g sodium and 1800 mL fluid restriction for now AM CBC, CMP, mag, PT/INR (2) Volume overload: Plan: See dyspnea on exertion plan (3) Chronic kidney disease, stage 4 (severe): Plan: Baseline creatinine should be near 3.03.2 per last nephrology note on 11/12/2023 Creatinine at 3.39 today Continue to monitor renal function moving forward with diuresis Will consult nephrology to follow as discussing starting dialysis with the patient in the near future (4) Atrial fibrillation: Plan: Currently stable Continue diltiazem and metoprolol for now, may need to hold diltiazem if blood pressure cannot tolerate twice daily IV diuretics Continue Xarelto (5) Chronic diastolic CHF (congestive heart failure): Plan: Currently volume overloaded Continue IV diuresis Will continue home bilirubin for now (6) Obstructive sleep apnea: Plan: At bedtime CPAP/BiPAP ordered Plan The patient was discussed Dr. Dallas at the time of the admission History of Present Illness Chief Complaint: SERVIN, chest pain Primary Care Provider: DO Kyler Pitt is a pleasant 83-year-old male with PMH of diastolic CHF, hyper lipidemia, gout, bioprosthetic AVR, chronic venous insufficiency, anxiety, FIFI, renal cell carcinoma status post left nephrectomy, CKD stage IV, diabetes mellitus, atrial fibrillation (on Xarelto), HTN, and HLD who presented to the [facility] ED on 12/06/2023 with complaints of dyspnea on exertion, chest, and neck pain. On arrival to the ED he was noted to be mildly hypotensive at 94/65, tachypneic at 26, but otherwise stable. Labs were significant for an INR of 1.4, creatinine of 3.39 (baseline is 3.03.2), and full respiratory BioFire negative. Chest x-ray was read as cardiomegaly with pulmonary edema. Small pleural effusions with bibasilar opacities. ECG shows atrial fibrillation without acute ST segment or T wave changes compared to previous. Prior to admission the patient was given 4 mg IV Bumex. Patient was sitting in bed in no acute distress at time of exam with his sitting bedside, history is obtained from both. They explained that over the past 2 weeks the patient has developed progressive dyspnea on exertion limiting his ADLs compared to baseline. Symptoms became significantly worse over the past 72 hours to the point that he could only walk a few feet without having to rest. If he does not use his as needed 2 to 3 L nasal cannula he is incredibly limited functionally. When asked, patient explains that [place] 12[place]03[place]23 and arrived home this a.m. When asked what he was eating/drinking I cannot he explains that he was having corndogs and did have Italian food on 12/05/2023. Confirms he was still taking his daily 3 mg p.o. Bumex and using his at bedtime CPAP even while I cannot. When asked if he had been taking his as needed metolazone for increased weight gain he states had not. Stressed the importance of being compliant with his fluid and sodium intake to prevent recurrent fluid retention and respiratory symptoms. I had a long CODE STATUS discussion with the patient and his as the patient has previously been a full code. I explained my concerns for low likelihood of resuscitation with CPR if he were to go into cardiac arrest and would also be concern for his quality of life moving forward if he went into cardiac arrest and CPR were performed. His expressed similar concerns that his quality of life would be very poor but the patient at this time still wishes to be a full code. He would also want a trial of intubation in the event of respiratory failure or cardiac arrest. He would want his to make medical decisions for him if he cannot make them himself. Patient confirms he did have his a.m. medications prior to arrival which included his home Bumex, epilator own, and diltiazem. Please refer to Dr. Dallas's attestation for any changes to the treatment plan Allergies Allergy/AdvReac Type Severity Reaction Status Date / Time Iodinated Contrast Media AdvReac Unknown PT ONLY Verified 12/06/23 11:21 [Iodinated Contrast- Oral HAS 1 and IV Dye] KIDNEY, CONTRAINDICATED. Home Medications Medication Instructions Recorded Confirmed Type amoxicillin 500 mg tablet 2,000 mg PO DIRECTED PRN 1 HOUR 11/16/18 12/06/23 History PRIOR TO DENTAL PROCEDURES docusate sodium 100 mg capsule 100 mg PO QAM PRN Constipation 05/03/20 12/06/23 History cholecalciferol (vitamin D3) 50 50 mcg PO DAILY 07/10/22 12/06/23 History mcg (2,000 unit) capsule (Vitamin D3) magnesium 250 mg tablet 250 mg PO DAILY 07/10/22 12/06/23 History cyanocobalamin (vitamin B-12) 1,000 mcg IM Q90D #30 mL 09/23/22 12/06/23 Rx 1,000 mcg/mL injection solution metolazone 5 mg tablet 5 mg PO DAILY PRN weight gain #30 10/23/22 12/06/23 Rx tabs allopurinol 100 mg tablet 100 mg PO QAM #90 tabs 01/20/23 12/06/23 Rx bumetanide 2 mg tablet 3 mg (1.5 x 2 mg) PO DAILY 90 days 01/20/23 12/06/23 Rx #135 tabs tamoxifen 20 mg tablet 20 mg PO DAILY #90 tabs 01/21/23 12/06/23 Rx rivaroxaban 15 mg tablet 15 mg PO HS #90 tabs 02/09/23 12/06/23 Rx eplerenone 25 mg tablet 25 mg PO QAM #90 tabs 05/04/23 12/06/23 Rx Portable Oxygen #1 ea 05/25/23 12/03/23 Rx calcitriol 0.25 mcg capsule 0.5 mcg (2 x 0.25 mcg) PO QAM #180 08/11/23 12/06/23 Rx caps mupirocin 2 % topical ointment 1 applic topical TID #22 grams 08/18/23 12/06/23 Rx potassium chloride 10 mEq 10 meq PO BID #180 caps 09/29/23 12/06/23 Rx capsule,extended release metoprolol succinate 200 mg 200 mg PO HS #90 tabs 10/05/23 12/06/23 Rx tablet,extended release 24 hr cyclobenzaprine 5 mg tablet 5 mg PO BID PRN muscle 11/20/23 12/06/23 Rx pain/stiffness #60 tabs tramadol 50 mg tablet 50 mg PO BID PRN Pain #60 tabs 11/20/23 12/06/23 Rx diltiazem HCl 120 mg capsule,24 120 mg PO DAILY #30 caps 12/01/23 12/06/23 Rx hr,extended release Past Med/Surg History Problem List (Updated 12/06/23 @ 20:51 by Wilson Cummings MD) Volume overload Pulmonary edema (Acute) Acute and chronic respiratory failure (Acute) Traumatic open wound of left lower leg with delayed healing (Acute) Lower extremity edema Decreased calculated glomerular filtration rate (GFR) Secondary hyperparathyroidism History of aortic valve disease s/p AVR (2006) History of renal cell carcinoma SERVIN (dyspnea on exertion) (Acute) Diastolic CHF, acute on chronic (Acute) Hypokalemia Chronic venous insufficiency (Chronic) Traumatic open wound of right lower leg (Acute) Atrial fibrillation with rapid ventricular response (Acute) Wound of right leg Class 3 severe obesity due to excess calories with body mass index (BMI) of 40.0 to 44.9 in adult Gynecomastia, male Family history of breast cancer gene mutation in first degree relative Hx of gynecomastia Left breast lump Nocturnal hypoxemia Complex sleep apnea syndrome Chronic kidney disease, stage 4 (severe) (Chronic) Diabetes mellitus Atrial fibrillation (Chronic) Hypertension (Chronic) Obstructive sleep apnea (Chronic) BIPAP Shortness of breath Acute diastolic (congestive) heart failure Hypermagnesemia Iron deficiency anemia Arm pain Hand numbness Foraminal stenosis of cervical region Vitamin D deficiency Anxiety (Acute) Venous insufficiency (chronic) (peripheral) Morbid obesity with BMI of 40.0-44.9, adult H/O aortic valve replacement Gout Microcytic anemia Chronic low back pain with right-sided sciatica B12 deficiency Chronic diastolic CHF (congestive heart failure) (Chronic) Hyperlipidemia (Chronic) Medical History Aspiration into respiratory tract Acute kidney injury superimposed on CKD Morbid obesity History of anxiety Hx of gout Hx of rotator cuff tear Difficulty with raising arms without extreme pain, currently in PT Hx of osteoarthritis Hx of impacted cerumen History of COVID-19 01/2021 > "mild" cold symptoms, resolved Prediabetes Kidney stones Hx x7 Renal cell adenocarcinoma s/p nephrectomy Chronic kidney disease, stage III (moderate) CKD (chronic kidney disease), stage III Surgical History Hx of cardiac catheterization 11/2020 > no stents History of total bilateral knee replacement History of esophagogastroduodenoscopy (EGD) Hx of colonoscopy Hx of tonsillectomy Hx of cystoscopy w/stone basketing History of left nephrectomy History of spinal surgery Aortic valve replaced bioprosthesis, 2006 History of gastric bypass History of cholecystectomy Family History Mother Breast cancer Lung disease Grandmother (Maternal) Breast cancer Aunt Breast cancer Sister Breast cancer Father Myocardial infarction Arthritis Denies family history of Ovarian cancer Prostate cancer Colorectal cancer Social History Smoking Status: Never smoker Second Hand Exposure: Yes; Do You Dip or Chew Tobacco: No; Tobacco Cessation Education Requested by Patient: No Hx Alcohol Use: No Hx Substance Use: No Preferred Language: Turkish Communication Ability: Effective Visual Impairment: No Limitations Hearing Ability: Normal Director University Required: No Beliefs That Will Affect Care: None marital status: Current Living Situation: Spouse Current Living Situation Comment: Lives w/ , son lives in basement current occupational status: retired 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 Physical Exam Physical Exam: Physical Exam: General: In no acute distress, stated age, chronically ill-appearing but nontoxic HEENT: Normocephalic, atraumatic, no scleral icterus, pupils around round, symmetrical, and reactive to light, moist mucus membranes, trachea midline, no thyromegaly Chest/Pulm: No respiratory distress, symmetrical chest expansion, decreased breath sounds in the bilateral lower lung kuhn with Rales/crackles in the bilateral mid and upper lung kuhn Cardiac: Irregular rate and rhythm, 3/6 systolic murmur noted Abdomen: Negative for ascites and bruising, normoactive bowel sounds, soft, non-tender to palpation throughout Musculoskeletal: Symmetrical and without signs of acute trauma, upper and lower extremities with full ROM, no atrophy, spasticity, or flaccidity Extremities: Radial, dorsalis pedis, and posterior tibial pulses are intact and symmetrical, 2+ edema noted in the BL LE's Skin: Warm, dry, no rashes , lesions, or scars noted Neuro: Alert and oriented to person, place, month, year, and president, no focal defects, no tremors noted Psych: No acute distress, calm and cooperative during the exam Results & Data Results & Data Vital Signs (Past 12 Hours) Vital Signs Temp Pulse Resp BP Pulse Ox O2 Del Method O2 Flow Rate 12/06/23 10:15 76 33 H 99 Nasal Cannula 12/06/23 10:15 Nasal Cannula 2 12/06/23 10:15 83 12/06/23 09:55 36.6 C 94 H 18 96/69 L 96 Laboratory Results Abnormal lab results 12/06/23 Range/Units 10:24 RBC 4.66 L (4.70-6.10) M/uL Hgb 12.0 L (14.0-18.0) g/dl Hct 39.9 L (42.0-52.0) % MCHC 30.1 L (32.0-36.0) g/dL RDW Std Deviation 52.3 H (36.4-46.3) fL RDW Coeff of Sarah 16.7 H (11.5-14.5) % Neut # (Auto) 7.31 H (1.40-6.50) K/uL Lymph # (Auto) 1.09 L (1.20-3.40) K/uL Phillips # (Auto) 0.65 H (0.11-0.59) K/uL PT 14.6 H (9.0-12.0) Seconds INR 1.4 H (0.9-1.1) BUN 50 H (6-23) mg/dl Creatinine 3.39 H (0.6-1.4) mg/dl Glucose 119 H (70-99(Fasting)) mg/dl Total Bilirubin 1.1 H (0.2-1.0) mg/dl Diagnostic Findings Chest X-Ray 12/06/23 10:04 XR chest 1V portable HISTORY: 83 years-old Male Chest pain, nonspecific COMPARISON: 09/14/2023 TECHNIQUE: AP view of the chest FINDINGS: Cardiac silhouette is enlarged. Pulmonary vascular congestion with interstitial coarsening. Small pleural effusions with mild bibasilar densities. No pneumothorax. Bones appear grossly intact. IMPRESSION: 1. Cardiomegaly with pulmonary edema. 2. Small pleural effusions with mild bibasilar opacities. ACT 112: Negative or not required by law. The above report was generated using voice recognition software. It may contain grammatical, syntax or spelling errors. Electronically signed by: Pedro Pablo Goode M.D. 12/06/2023 10:39 AM ECG Additional Comments: atrial fibrillation without acute ST segment or T wave changes compared to previous Code Status & VTE Plan Code Status Full code Supervising Physician Co-Signing Physician Notes I personally saw and examined the patient. I verified all jeronimo points and agree with Surinder Rodney PA-C with the following exceptions and/or additions: 83 year old male presents to the ER slow progressive worsening shortness of breath on exertion. O/E HS RRR, no murmurs, Chest reduced breath sounds throughout, bibasal crackles, 2+ b/l equal pedal edema to thighs A/P Hypervolemia due to CKD and dietary indiscretion - Bumex 4mg IV given and BP stable therefore metolazone 5mg given in addition and patient urinated about 1L in 4 hours therefore will start next diuretics tomorrow. Will start with Bumex 3mg IV BID and metolazone 5mg PO. Consult nephrology for ongoing fluid management as appears to be nearing dialysis and has no fistula in place. PG Care Time/CCT Total # of Minutes Spent Total Time Spent with Patient: Total time spent is greater than 50% in coordination of care (as documented) at patient's floor/unit and/or counseling patient: Coding [place] [address] INT INP/OBS CARE 3/75MIN Patient Type Established Medical Decision Making High Complexity Diagnoses SERVIN (dyspnea on exertion) R06.09 Volume overload E87.70 Chronic kidney disease, stage 4 (severe) N18.4 Atrial fibrillation I48.21 Atrial fibrillation type: permanent Chronic diastolic CHF (congestive heart failure) I50.32 Obstructive sleep apnea G47.33 (4) Atrial fibrillation Atrial fibrillation type: permanent Qualified Code(s): I48.21 - Permanent atrial fibrillation
[2023-12-06 13:05] LABS: Appearance Urine Clear (Clear); Bacteria Urine Automated None Seen (None Seen); Bilirubin Urine Negative (Negative); Blood Urine Negative (Negative); Color Urine Yellow; Epithelial Cell Urine Auto 0-2 /hpf (0-2); Glucose Urine UA Negative (Negative); Ketones Urine Negative (Negative); Leukocyte Esterase Urine Trace (Negative); Nitrite Urine Negative (Negative); Protein Urine Negative (Negative); RBC Urine Automated 0-2 /hpf (0-2); Specific Gravity Urine 1.008 (1.000-1.030); Urobilinogen Urine Negative (Negative); WBC Urine Automated 0-5 /hpf (0-5)
[2023-12-06 13:31] LABS: Creatinine Urine Random 36.7 mg/dl; Protein Creatinine Ratio Urine 0.5 (0-0.2); Total Protein Urine Random 16.6 mg/dl (0-11.9)
[2023-12-06] MEDS: BUMETANIDE 4 MG in SYRINGE 0 ML IV ONE (13:40)
[2023-12-06] MEDS ORDERED: CYCLOBENZAPRINE HCL 5 MG TAB PO PRN (14:09)
[2023-12-06] MEDS: metOLazone 5 MG TABLET PO STA (16:38)
[2023-12-06] MEDS: RIVAROXABAN 15 MG TAB PO SCH (17:38)
[2023-12-06] MEDS: EPLERENONE: ORDER AWAITING ACTION SCH (18:28)
[2023-12-06] MEDS: POTASSIUM CHLORIDE 10 MEQ TABCR PO SCH (20:09)
[2023-12-06] MEDS: traMADol HCL 50 MG TABLET PO PRN (20:10)
[2023-12-06] MEDS: METOPROLOL SUCC 50MG EXT REL TAB PO SCH (20:11)
[2023-12-06] MEDS: METOPROLOL SUCC 50MG EXT REL TAB PO STA (20:43)
--- NOTE | 2023-12-06 22:23 | Electrocardiogram Report ---
Test Reason : Blood Pressure : */* mmHG Vent. Rate : 82 BPM Atrial Rate : * BPM P-R Int : * ms QRS Dur : 90 ms QT Int : 406 ms P-R-T Axes : * 72 82 degrees QTcB Int : 474 ms Atrial fibrillation Abnormal ECG When compared with ECG of 14-Sep-2023 15:41, T wave inversion no longer evident in Inferior leads Confirmed by Mckay Elliott ([id number]) on 12/06/2023 10:22:49 PM Referred By: REFERRED SELF Confirmed By: Mckay Elliott
[2023-12-07 04:48] LABS: Basophils % (auto) 1.2 %; Eosinophils # (auto) 0.24 K/uL (0.00-0.50); Hematocrit (blood only) 36.2 % (42.0-52.0); Hemoglobin 10.9 g/dl (14.0-18.0); Immature Granulocytes # (auto) 0.03 K/uL (0.01-0.20); Immature Granulocytes % (auto) 0.4 %; Lymphocytes # (auto) 1.44 K/uL (1.20-3.40); Lymphocytes % (auto) 17.9 %; Mean Corpuscular Hemoglobin 25.8 pg (25.0-34.0); Mean Corpuscular Hgb Conc 30.1 g/dL (32.0-36.0); Mean Corpuscular Volume 85.6 fL (80.0-100.0); Mean Platelet Volume 10.7 fL (9.4-12.4); Monocytes # (auto) 0.68 K/uL (0.11-0.59); Monocytes % (auto) 8.5 %; Neutrophils # (auto) 5.55 K/uL (1.40-6.50); Platelet Count 168 K/uL (130-400); RDW Coefficient of Variation 16.6 % (11.5-14.5); RDW Standard Deviation 51.5 fL (36.4-46.3); Red Blood Count 4.23 M/uL (4.70-6.10); White Blood Count 8.04 K/ul (4.8-10.8)
[2023-12-07 04:57] LABS: BUN Creatinine Ratio 16.5 (10-20); Calcium 9.6 mg/dl (8.6-10.3); Est GFR (Non-African American) 16.4 ml/min; Magnesium 2.1 mg/dl (1.7-2.4); Potassium 3.8 mmol/L (3.5-5.1)
[2023-12-07 05:14] LABS: INR 1.6 (0.9-1.1); Prothrombin Time 16.5 Seconds (9.0-12.0)
[2023-12-07] MEDS: metOLazone 5 MG TABLET PO SCH (06:18)
--- NOTE | 2023-12-07 08:07 | Hospitalist Progress Note ---
Date of Service December 07, 2023 Assessment & Plan (1) SERVIN (dyspnea on exertion): Plan: Presented to the ED this a.m. with complaints of progressive weight gain/swelling and increased respiratory symptoms compared to baseline (on 2L NC). Prior ECHO 09/15/23 noting normal EF 60-65% with mild-moderate mitral regurgitation. ACUTE ON CHRONIC DIASTOLIC HEART FAILURE, ?cardiorenal syndrome in setting of CKD IV with acute on chronic respiratory failure Noted to have signs of pulmonary edema bilateral pleural effusions on chest x- ray with increased weight gain Suspect his volume overload is likely a combination of his severe CKD and nonco mpliance with sodium restriction, as well as not following instructions to start as needed metolazone for increased weight gain compared to dry weight of 245 pounds and was 255lb on admission s/p 4mg IV bumex in ER (pt took 3mg PO bumex in morning prior to admission) and given metolazone 5mg (patient reports taking this probably about once a week) Continued on bumex 3mg IV BID starting AM 12/06, metolazone 5mg daily Monitor weights/I&Os Weight 116.8--> 114kg Given net negative already 3L and metolazone already given, message to Dr Churchill to see about holding given BP to prevent hypotension issues and agrees reasonable to hold for now and can monitor response overnight Home cardizem placed on hold, had holter recently with average HR 83bpm and allowing diuresis --Continue telemetry monitoring, hopefully resume in AM. ?reduction in dose Nephrology on consult given CKD w/ Cr 3.33 regarding possible HD in the future Iron studies obtained given hgb 10.9 despite diuresis. Iron LOW at 26 with LOW trans % sat 6% and ferritin low at 28.2. Unsaturated IBC is also elevated to 433 . Trop negative on admission, no CP reported Patient reports he has been on iron in the past but not currently-- Will order dose Venofer IV. Can check fecal occult w/ next BM for completeness. Is on xarelto for DVT prophylaxis/history of afib. B12 prior 282 in 2022 and to be on once monthly B12 injections INR elevated further . LFT without elevation. Check LDH to ensure no hemolysis given lower with diuretics Continue AHA diet, low salt diet. Fluid restriction. Monitor weights, I&Os, labs in AM. CHF clinic follow up recommended and can reach out in AM to touch base pending response to current regimen as outlined (2) Chronic diastolic CHF (congestive heart failure): Plan: Suspected cause for above, diuretics as outlined and monitoring of his weights/output. Prior ECHO in August with EF 60-65%, mild-moderate mitral regurgitation. Normal gradient for his prosthetic aortic valve (3) Volume overload: Plan: As above, suspect cause for his SERVIN. Remains on Xarelto (4) Chronic kidney disease, stage 4 (severe): Plan: Cr baseline 3-3.2 per most recent nephrology notes Cr 3.39 on admission and given diuretics with bumex 4mg/metolazone and Cr 3.33 on am labs and continues BID bumex but placing further metolazone after this mornings dose to monitor response and ensure not pulling off fluid too quickly given net neg 3L 24hours from admission Nephrology on consult, appreciate recs/assistance -- likely discussions for HD to be undertaken if progressive worsening (5) Atrial fibrillation: Plan: Stable/rate controlled Continued on metoprolol, 100mg x 1 NOW on admission. Prior holter outpt w/ average BPM 80s as above PLACED AM CARDIZEM on hold given HR 60-80s on monitor to allow for diuresis but likely can resume in AM. ?if needs reduction in dose but has been stable outpatient and hopefully able to resume w/ improvement in BPs once pulling off additional fluid Continues on xarelto, metoprolol 200mg HS Continue telemetry monitoring, keep k/mag replete (6) Obstructive sleep apnea: Plan: At bedtime CPAP/BiPAP ordered (7) Iron deficiency: Plan: iron studies w/ low iron/trans sat % and ferritin. unsat elevated. Venofer IV as above, monitor cbc. fecal occult for completeness Plan DVT proph: Xarelto PT/OT consults pending Dispo: continued inpatient stay with diuresis Will need CHF clinic close follow up. Admission and Anticipated Discharge Date Admission Date: December 06, 2023 Supervising Physician Co-Signing Physician Notes ANDREW Supervision Note: I did not personally see or examine the patient today, but I verified all jeronimo points of ANDREW Redman's assessment and plan with the following exceptions/additions: None Subjective Patient evaluated this morning, doing well. Sitting up in the chair. Had only been using metolazone maybe once a week. HR stable afib, cardizem placed on hold. Reports breathing improved, no chest pain. Discussed continuing diuretics and monitoring repeat counts. Making decent urine. Getting Venofer IV based on iron testing. Denies blood in urine/stool and reports has taken iron in the past but makes stools dark. Will eval to repeat dose tomorrow. Seen by nephrology this morning, appreciated. No fever/chills. Questions/concerns addressed at this time. Physical Exam Physical Exam: General: WD/WN obese male sitting up in recliner, NAD, reports feeling improved from admission HEENT; head atraumatic, normocephalic, mmm, trachea midline Resp: diminished int he bases, end expiratory wheezing, faint crackles, on 2L (baseline 2L) CV: irregularly irregular, rates in 60-70s, +systolic murmur, 2+ b/l LE edema, pulses present, sensation intact, cap refill acceptable, leg compression wraps in palce GI: +BS< soft/distension but nontender MSK/Neuro:nonfocal, not confused, answering questions appropriately Psych: AOx3, cooperative/pleasant with exam Results & Data Results & Data Vital Signs (Past 12 Hours) Vital Signs Temp Pulse Pulse Pulse Resp BP BP 12/07/23 03:28 36.6 C 74 18 107/71 12/07/23 00:32 36.3 C L 80 20 106/63 12/06/23 22:37 74 Pulse Ox O2 Del Method O2 Flow Rate 12/07/23 03:28 96 CPAP 2 12/07/23 00:32 99 CPAP 2 12/06/23 22:37 Laboratory Results 12/07/23 12/06/23 12/06/23 Range/Units 03:55 13:34 12:13 WBC 8.04 (4.8-10.8) K/ul RBC 4.23 L (4.70-6.10) M/uL Hgb 10.9 L (14.0-18.0) g/dl Hct 36.2 L (42.0-52.0) % MCV 85.6 (80.0-100.0) fL MCH 25.8 (25.0-34.0) pg MCHC 30.1 L (32.0-36.0) g/dL RDW Std Deviation 51.5 H (36.4-46.3) fL RDW Coeff of Sarah 16.6 H (11.5-14.5) % Plt Count 168 (130-400) K/uL MPV 10.7 (9.4-12.4) fL Immature Gran % (Auto) 0.4 % Neut % (Auto) 69.0 % Lymph % (Auto) 17.9 % Randall % (Auto) 8.5 % Eos % (Auto) 3.0 % Baso % (Auto) 1.2 % Neut # (Auto) 5.55 (1.40-6.50) K/uL Lymph # (Auto) 1.44 (1.20-3.40) K/uL Randall # (Auto) 0.68 H (0.11-0.59) K/uL Eos # (Auto) 0.24 (0.00-0.50) K/uL Baso # (Auto) 0.10 (0.00-0.20) K/uL Immature Gran # (Auto) 0.03 (0.01-0.20) K/uL PT 16.5 H (9.0-12.0) Seconds INR 1.6 H (0.9-1.1) Sodium 141 (136-145) mmol/L Potassium 3.8 (3.5-5.1) mmol/L Chloride 104 (98-107) mmol/L Carbon Dioxide 27 (21-32) mmol/L Anion Gap 10 (3-11) BUN 55 H (6-23) mg/dl Creatinine 3.33 H (0.6-1.4) mg/dl Est Cr Clr Drug Dosing 21.0 ml/min Est GFR ( Amer) 19.0 ml/min Est GFR (Non-Af Amer) 16.4 ml/min BUN/Creatinine Ratio 16.5 (10-20) Glucose 112 H (70-99(Fasting)) mg/dl Calcium 9.6 (8.6-10.3) mg/dl Magnesium 2.1 (1.7-2.4) mg/dl Iron 26 L (35-175) mcg/dl TIBC 459 H (250-450) mcg/dl Unsaturated IBC 433 H (155-355) mcg/dl Transferrin % Sat 6 L (20-50) % Ferritin 20.3 (8-388) ng/ml Lactate Dehydrogenase 205 (86-244) U/L B-Natriuretic Peptide 1132 H (0-100) pg/ml Procalcitonin 0.03 (0-0.5) ng/ml Urine Color Urine Appearance (Clear) Urine pH (4.5-7.5) Ur Specific [place] Level (1.000-1.030) Urine Protein (Negative) Urine Glucose (UA) (Negative) Urine Ketones (Negative) Urine Blood (Negative) Urine Nitrite (Negative) Urine Bilirubin (Negative) Urine Urobilinogen (Negative) Ur Leukocyte Esterase (Negative) Urine WBC (Auto) (0-5) /hpf Urine RBC (Auto) (0-2) /hpf U Hyaline Cast (Auto) (0-2) /lpf U Epithel Cells (Auto) (0-2) /hpf Urine Bacteria (Auto) (None Seen) Ur Random Creatinine mg/dl U Random Total Protein (0-11.9) mg/dl Protein/Creatinin Ratio (0-0.2) 12/06/23 Range/Units 12:07 WBC (4.8-10.8) K/ul RBC (4.70-6.10) M/uL Hgb (14.0-18.0) g/dl Hct (42.0-52.0) % MCV (80.0-100.0) fL MCH (25.0-34.0) pg MCHC (32.0-36.0) g/dL RDW Std Deviation (36.4-46.3) fL RDW Coeff of Sarah (11.5-14.5) % Plt Count (130-400) K/uL MPV (9.4-12.4) fL Immature Gran % (Auto) % Neut % (Auto) % Lymph % (Auto) % [place] % (Auto) % Eos % (Auto) % Baso % (Auto) % Neut # (Auto) (1.40-6.50) K/uL Lymph # (Auto) (1.20-3.40) K/uL [place] # (Auto) (0.11-0.59) K/uL Eos # (Auto) (0.00-0.50) K/uL Baso # (Auto) (0.00-0.20) K/uL Immature Gran # (Auto) (0.01-0.20) K/uL PT (9.0-12.0) Seconds INR (0.9-1.1) Sodium (136-145) mmol/L Potassium (3.5-5.1) mmol/L Chloride (98-107) mmol/L Carbon Dioxide (21-32) mmol/L Anion Gap (3-11) BUN (6-23) mg/dl Creatinine (0.6-1.4) mg/dl Est Cr Clr Drug Dosing ml/min Est GFR ( Amer) ml/min Est GFR (Non-Af Amer) ml/min BUN/Creatinine Ratio (10-20) Glucose (70-99(Fasting)) mg/dl Calcium (8.6-10.3) mg/dl Magnesium (1.7-2.4) mg/dl Iron (35-175) mcg/dl TIBC (250-450) mcg/dl Unsaturated IBC (155-355) mcg/dl Transferrin % Sat (20-50) % Ferritin (8-388) ng/ml Lactate Dehydrogenase (86-244) U/L B-Natriuretic Peptide (0-100) pg/ml Procalcitonin (0-0.5) ng/ml Urine Color Yellow Urine Appearance Clear (Clear) Urine pH 6.0 (4.5-7.5) Ur Specific [place] Level 1.008 (1.000-1.030) Urine Protein Negative (Negative) Urine Glucose (UA) Negative (Negative) Urine Ketones Negative (Negative) Urine Blood Negative (Negative) Urine Nitrite Negative (Negative) Urine Bilirubin Negative (Negative) Urine Urobilinogen Negative (Negative) Ur Leukocyte Esterase Trace H (Negative) Urine WBC (Auto) 0-5 (0-5) /hpf Urine RBC (Auto) 0-2 (0-2) /hpf U Hyaline Cast (Auto) 3-5 H (0-2) /lpf U Epithel Cells (Auto) 0-2 (0-2) /hpf Urine Bacteria (Auto) None Seen (None Seen) Ur Random Creatinine 36.7 mg/dl U Random Total Protein 16.6 H (0-11.9) mg/dl Protein/Creatinin Ratio 0.5 H (0-0.2) PG Care Time/CCT Total # of Minutes Spent Total Time Spent with Patient: Total time spent is greater than 50% in coordination of care (as documented) at patient's floor/unit and/or counseling patient: Coding Level of Care Code 46205 SUB INP/OBS CARE 3/50MIN Diagnoses SERVIN (dyspnea on exertion) R06.09 Chronic diastolic CHF (congestive heart failure) I50.32 Volume overload E87.70 Chronic kidney disease, stage 4 (severe) N18.4 Atrial fibrillation I48.21 Atrial fibrillation type: permanent Obstructive sleep apnea G47.33 Iron deficiency E61.1 (5) Atrial fibrillation Atrial fibrillation type: permanent Qualified Code(s): I48.21 - Permanent atrial fibrillation
[2023-12-07 09:09] LABS: Ferritin 20.3 ng/ml (8-388)
[2023-12-07] MEDS: BUMETANIDE 3 MG in SYRINGE 0 ML IV SCH (09:34)
[2023-12-07] MEDS: TAMOXIFEN CITRATE 10 MG TABLET PO SCH (09:35)
[2023-12-07] MEDS: CALCITRIOL 0.25 MCG CAPSULE PO SCH (09:35)
[2023-12-07] MEDS: MAGNESIUM OXIDE 400 MG TAB PO SCH (09:35)
[2023-12-07] MEDS: allopurinoL 100 MG TAB PO SCH (09:35)
[2023-12-07] MEDS: dilTIAZem HCL 120 MG CAPCR PO SCH (09:36)
--- NOTE | 2023-12-07 10:10 | Nephrology Consultation ---
Date of Consultation December 07, 2023 Assessment & Plan (1) Chronic kidney disease, stage 4 (severe): Baseline creatinine 2.8 - 3.2 mg/dL. Single kidney with underlying arterionephrosclerosis. Urine is bland and acellular. Creatinine remains stable at 3.33 mg/dL this AM. Volume status improving. Elect rolytes normal. There is no current indication for DECAL DECORATOR. Medications are appropriately dosed for kidney function. Low sodium diet. Document strict I/O's. Repeat metabolic profile tomorrow AM. (2) Diastolic CHF, acute on chronic: Clinically improving. Remains on Bumex 3 mg IV BID, metolazone 5 mg QAM. KCl supplement twice daily ordered. I encourage consultation with the CHF clinic. No SGLT2i --> patient unable to afford in the past. (3) Chronic venous insufficiency: Feet elevation. Diuretics as Rx. (4) Secondary hyperparathyroidism: Calcium acceptable. Continue calcitriol 0.5 mcg daily. History of Present Illness Reason for Consultation: Stage IV CKD, volume overload Requesting Physician: Shelia Frank MD Attending Physician: Shelia Frank MD History of Present Illness Mr. Kyler Antoine is an 83 year-old male with chronic kidney disease, solitary right kidney s/p L nephrectomy for RCC, history of kidney stones, HFpEF, pulmonary hypertension, atrial fibrillation, h/o of aortic stenosis --> Bovine aortic valve replacement 2006, obesity --> gastric bypass 2012, FIFI on BIPAP QHS, gout, breast mass --> Tamoxifen, dyslipidemia, and venous insufficiency. He presented to the ER at [facility] yesterday with fluid retention and edema. He describes increasing dyspnea and decreased activity tolerance. He describes increased O2 requirement at home over the past few days (baseline ~2-3 L and up to 4-5 L). Symptoms are improving and O2 requirement returned to baseline since admission with diuresis. Kyler regularly follows with Dr. Curry in the nephrology clinic and Una Ramirze PA-C in the CHF clinic. Kyler has been maintained on Bumex 3 mg daily and metolazone 5 mg QAM PRN. He is also maintained on eplerenone 25 mg daily. He admits to recent dietary indiscretion. Laboratory studies on admission notable for a creatinine of 3.39 mg/dL. Creatinine 3.33 mg/dL this AM. Baseline creatinine 2.8-3.2 mg/dL. Urine has been bland and acellular. IV Bumex and metolazone provided. Adequate diuresis overnight. Weight is down from 116 kg to 114 kg this AM. Kyler was resting comfortably at the time of my assessment. Allergies Allergy/AdvReac Type Severity Reaction Status Date / Time Iodinated Contrast Media AdvReac Unknown PT ONLY Verified 12/06/23 11:21 [Iodinated Contrast- Oral HAS 1 and IV Dye] KIDNEY, CONTRAINDICATED. Home Medications Medication Instructions Recorded Confirmed Type amoxicillin 500 mg tablet 2,000 mg PO DIRECTED PRN 1 HOUR 11/16/18 12/06/23 History PRIOR TO DENTAL PROCEDURES docusate sodium 100 mg capsule 100 mg PO QAM PRN Constipation 05/03/20 12/06/23 History cholecalciferol (vitamin D3) 50 50 mcg PO DAILY 07/10/22 12/06/23 History mcg (2,000 unit) capsule (Vitamin D3) magnesium 250 mg tablet 250 mg PO DAILY 07/10/22 12/06/23 History cyanocobalamin (vitamin B-12) 1,000 mcg IM Q90D #30 mL 09/23/22 12/06/23 Rx 1,000 mcg/mL injection solution metolazone 5 mg tablet 5 mg PO DAILY PRN weight gain #30 10/23/22 12/06/23 Rx tabs allopurinol 100 mg tablet 100 mg PO QAM #90 tabs 01/20/23 12/06/23 Rx bumetanide 2 mg tablet 3 mg (1.5 x 2 mg) PO DAILY 90 days 01/20/23 12/06/23 Rx #135 tabs tamoxifen 20 mg tablet 20 mg PO DAILY #90 tabs 01/21/23 12/06/23 Rx rivaroxaban 15 mg tablet 15 mg PO HS #90 tabs 02/09/23 12/06/23 Rx eplerenone 25 mg tablet 25 mg PO QAM #90 tabs 05/04/23 12/06/23 Rx Portable Oxygen #1 ea 05/25/23 12/03/23 Rx calcitriol 0.25 mcg capsule 0.5 mcg (2 x 0.25 mcg) PO QAM #180 08/11/23 12/06/23 Rx caps mupirocin 2 % topical ointment 1 applic topical TID #22 grams 08/18/23 12/06/23 Rx potassium chloride 10 mEq 10 meq PO BID #180 caps 09/29/23 12/06/23 Rx capsule,extended release metoprolol succinate 200 mg 200 mg PO HS #90 tabs 10/05/23 12/06/23 Rx tablet,extended release 24 hr cyclobenzaprine 5 mg tablet 5 mg PO BID PRN muscle 11/20/23 12/06/23 Rx pain/stiffness #60 tabs tramadol 50 mg tablet 50 mg PO BID PRN Pain #60 tabs 11/20/23 12/06/23 Rx diltiazem HCl 120 mg capsule,24 120 mg PO DAILY #30 caps 12/01/23 12/06/23 Rx hr,extended release Patient History Medical History Aspiration into respiratory tract Acute kidney injury superimposed on CKD Morbid obesity History of anxiety Hx of gout Hx of rotator cuff tear Difficulty with raising arms without extreme pain, currently in PT Hx of osteoarthritis Hx of impacted cerumen History of COVID-19 01/2021 > "mild" cold symptoms, resolved Prediabetes Kidney stones Hx x7 Renal cell adenocarcinoma s/p nephrectomy Chronic kidney disease, stage III (moderate) CKD (chronic kidney disease), stage III Surgical History Hx of cardiac catheterization 11/2020 > no stents History of total bilateral knee replacement History of esophagogastroduodenoscopy (EGD) Hx of colonoscopy Hx of tonsillectomy Hx of cystoscopy w/stone basketing History of left nephrectomy History of spinal surgery Aortic valve replaced bioprosthesis, 2006 History of gastric bypass History of cholecystectomy Family History Mother Breast cancer Lung disease Grandmother (Maternal) Breast cancer Aunt Breast cancer Sister Breast cancer Father Myocardial infarction Arthritis Denies family history of Ovarian cancer Prostate cancer Colorectal cancer Social History Smoking Status: Never smoker Second Hand Exposure: Yes; Do You Dip or Chew Tobacco: No; Tobacco Cessation Education Requested by Patient: No Hx Alcohol Use: No Hx Substance Use: No Preferred Language: Yakut Communication Ability: Effective Visual Impairment: No Limitations Hearing Ability: Normal Machine Sander Required: No Beliefs That Will Affect Care: None marital status: Current Living Situation: Spouse Current Living Situation Comment: Lives w/ , son lives in basement current occupational status: retired 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 Review of Systems Review of Systems: All systems reviewed & are unremarkable except as noted in HPI & below Physical Exam Constitutional: well developed and + morbidly obese; no acute distress Eyes: no scleral abnormality and no corneal abnormality ENMT: Mouth: no oral mucosal abnormality and oral mucous membranes not dry Neck: normal visual inspection and trachea midline Respiratory: normal respiratory effort Auscultation: lungs clear to auscultation bilaterally Cardiovascular: Rate/Rhythm: regular rate Heart Sounds: normal S1, normal S2 and + murmur Extremities: + edema Musculoskeletal: Extremities: no cyanosis and no clubbing Skin: normal turgor; no lesions Neurologic: Motor/Sensory: no tremor and no asterixis Psychiatric: Orientation: alert and oriented x 3 Results & Data Vital Signs (Past 12 Hours) Vital Signs Temp Pulse Pulse Pulse Resp BP BP 12/07/23 08:01 36.3 C L 66 18 95/63 L 12/07/23 03:28 36.6 C 74 18 107/71 12/07/23 00:32 36.3 C L 80 20 106/63 12/06/23 22:37 74 Pulse Ox O2 Del Method O2 Flow Rate 12/07/23 08:01 97 Nasal Cannula 2 12/07/23 03:28 96 CPAP 2 12/07/23 00:32 99 CPAP 2 12/06/23 22:37 Laboratory Results Laboratory Results - last 24 hr 12/06/23 12/06/23 12/06/23 10:24 12:07 12:13 WBC 9.37 RBC 4.66 L Hgb 12.0 L Hct 39.9 L MCV 85.6 MCH 25.8 MCHC 30.1 L RDW Std Deviation 52.3 H RDW Coeff of Sarah 16.7 H Plt Count 179 MPV 10.8 Immature Gran % (Auto) 0.4 Neut % (Auto) 78.1 Lymph % (Auto) 11.6 [place] % (Auto) 6.9 Eos % (Auto) 1.9 Baso % (Auto) 1.1 Neut # (Auto) 7.31 H Lymph # (Auto) 1.09 L [place] # (Auto) 0.65 H Eos # (Auto) 0.18 Baso # (Auto) 0.10 Immature Gran # (Auto) 0.04 PT 14.6 H INR 1.4 H Sodium 140 Potassium 4.6 Chloride 106 Carbon Dioxide 27 Anion Gap 7 BUN 50 H Creatinine 3.39 H Est Cr Clr Drug Dosing 20.9 Est GFR ( Amer) 18.6 Est GFR (Non-Af Amer) 16.1 BUN/Creatinine Ratio 14.7 Glucose 119 H Calcium 9.7 Phosphorus 3.7 Magnesium 2.3 Iron TIBC Unsaturated IBC Transferrin % Sat Ferritin Total Bilirubin 1.1 H AST 21 ALT 13 Alkaline Phosphatase 65 Lactate Dehydrogenase Troponin I High Sens 16.7 B-Natriuretic Peptide Total Protein 6.7 Albumin 3.9 Globulin 2.8 Albumin/Globulin Ratio 1.4 Lipase 23 Procalcitonin Cancelled 0.03 Urine Color Yellow Urine Appearance Clear Urine pH 6.0 Ur Specific Lavinia 1.008 Urine Protein Negative Urine Glucose (UA) Negative Urine Ketones Negative Urine Blood Negative Urine Nitrite Negative Urine Bilirubin Negative Urine Urobilinogen Negative Ur Leukocyte Esterase Trace H Urine WBC (Auto) 0-5 Urine RBC (Auto) 0-2 U Hyaline Cast (Auto) 3-5 H U Epithel Cells (Auto) 0-2 Urine Bacteria (Auto) None Seen Ur Random Creatinine 36.7 U Random Total Protein 16.6 H Protein/Creatinin Ratio 0.5 H Adenovirus (PCR) Not Detected B. pertussis DNA (PCR) Not Detected B.parapertussis DNA PCR Not Detected C. pneumoniae DNA (PCR) Not Detected Coronavirus OC43 (PCR) Not Detected Coronavirus HKU1 (PCR) Not Detected Coronavirus 229E (PCR) Not Detected SARS-CoV-2 (PCR) Not Detected Coronavirus NL63 (PCR) Not Detected Human Metapneumovir PCR Not Detected Influenza Type A (PCR) Not Detected Influenza Type B (PCR) Not Detected M. pneumoniae (PCR) Not Detected Parainfluenza 1 (PCR) Not Detected Parainfluenza 2 (PCR) Not Detected Parainfluenza 3 (PCR) Not Detected Parainfluenza 4 (PCR) Not Detected RSV (PCR) Not Detected Entero/Rhino (PCR) Not Detected 12/06/23 12/07/23 13:34 03:55 WBC 8.04 RBC 4.23 L Hgb 10.9 L Hct 36.2 L MCV 85.6 MCH 25.8 MCHC 30.1 L RDW Std Deviation 51.5 H RDW Coeff of Sarah 16.6 H Plt Count 168 MPV 10.7 Immature Gran % (Auto) 0.4 Neut % (Auto) 69.0 Lymph % (Auto) 17.9 [place] % (Auto) 8.5 Eos % (Auto) 3.0 Baso % (Auto) 1.2 Neut # (Auto) 5.55 Lymph # (Auto) 1.44 [place] # (Auto) 0.68 H Eos # (Auto) 0.24 Baso # (Auto) 0.10 Immature Gran # (Auto) 0.03 PT 16.5 H INR 1.6 H Sodium 141 Potassium 3.8 Chloride 104 Carbon Dioxide 27 Anion Gap 10 BUN 55 H Creatinine 3.33 H Est Cr Clr Drug Dosing 21.0 Est GFR ( Amer) 19.0 Est GFR (Non-Af Amer) 16.4 BUN/Creatinine Ratio 16.5 Glucose 112 H Calcium 9.6 Phosphorus Magnesium 2.1 Iron 26 L TIBC 459 H Unsaturated IBC 433 H Transferrin % Sat 6 L Ferritin 20.3 Total Bilirubin AST ALT Alkaline Phosphatase Lactate Dehydrogenase 205 Troponin I High Sens B-Natriuretic Peptide 1132 H Total Protein Albumin Globulin Albumin/Globulin Ratio Lipase Procalcitonin Urine Color Urine Appearance Urine pH Ur Specific [place] Urine Protein Urine Glucose (UA) Urine Ketones Urine Blood Urine Nitrite Urine Bilirubin Urine Urobilinogen Ur Leukocyte Esterase Urine WBC (Auto) Urine RBC (Auto) U Hyaline Cast (Auto) U Epithel Cells (Auto) Urine Bacteria (Auto) Ur Random Creatinine U Random Total Protein Protein/Creatinin Ratio Adenovirus (PCR) B. pertussis DNA (PCR) B.parapertussis DNA PCR C. pneumoniae DNA (PCR) Coronavirus OC43 (PCR) Coronavirus HKU1 (PCR) Coronavirus 229E (PCR) SARS-CoV-2 (PCR) Coronavirus NL63 (PCR) Human Metapneumovir PCR Influenza Type A (PCR) Influenza Type B (PCR) M. pneumoniae (PCR) Parainfluenza 1 (PCR) Parainfluenza 2 (PCR) Parainfluenza 3 (PCR) Parainfluenza 4 (PCR) RSV (PCR) Entero/Rhino (PCR) Diagnostic Findings XR chest 1V portable COMPARISON: 09/14/2023 FINDINGS: Cardiac silhouette is enlarged. Pulmonary vascular congestion with interstitial coarsening. Small pleural effusions with mild bibasilar densities. No pneumothorax. Bones appear grossly intact. IMPRESSION: 1. Cardiomegaly with pulmonary edema. 2. Small pleural effusions with mild bibasilar opacities. PG Care Time/CCT Total # of Minutes Spent Total Time Spent with Patient: Total time spent is greater than 50% in coordination of care (as documented) at patient's floor/unit and/or counseling patient: Coding Level of Care Code 13864 IN/OBS CONSULT LVL 4,60M Diagnoses Chronic kidney disease, stage 4 (severe) N18.4 Diastolic CHF, acute on chronic I50.33 Chronic venous insufficiency I87.2 Secondary hyperparathyroidism N25.81
[2023-12-07] MEDS: IRON SUCROSE 300 MG in SODIUM CHLORIDE 0.9% 250 ML IV ONE (10:14)
[2023-12-07] MEDS: ONDANSETRON INJ 2 MG/ML 2 ML VIAL IV PRN (15:56)
[2023-12-07 16:55] LABS: BUN Creatinine Ratio 15.4 (10-20); Calcium 9.6 mg/dl (8.6-10.3); Creatinine Clr Calc Pharmacy 18.9 ml/min; Est GFR (African American) 16.7 ml/min; Est GFR (Non-African American) 14.4 ml/min; Magnesium 2.1 mg/dl (1.7-2.4); Potassium 3.5 mmol/L (3.5-5.1)
--- NOTE | 2023-12-07 17:07 | Communication Note ---
Date of Service: December 07, 2023 Has already put out 2250cc as of 2pm this afternoon and additional 400cc following. Had gotten repeat metolazone dosing this morning 5mg with bumex 4mg IV and as outlined plan to hold metolazone for AM but will plan to HOLD PM BUMEX IV and can monitor to resume in AM if renal function stable/improved to not diurese too quickly.
[2023-12-07] MEDS: POTASSIUM CHLORIDE 10 MEQ TABCR PO STA (18:12)
[2023-12-08 06:08] LABS: Basophils # (auto) 0.08 K/uL (0.00-0.20); Basophils % (auto) 0.9 %; Eosinophils # (auto) 0.26 K/uL (0.00-0.50); Hematocrit (blood only) 36.7 % (42.0-52.0); Hemoglobin 11.1 g/dl (14.0-18.0); Immature Granulocytes # (auto) 0.04 K/uL (0.01-0.20); Immature Granulocytes % (auto) 0.5 %; Lymphocytes # (auto) 0.86 K/uL (1.20-3.40); Lymphocytes % (auto) 9.9 %; Mean Corpuscular Hemoglobin 25.6 pg (25.0-34.0); Mean Corpuscular Hgb Conc 30.2 g/dL (32.0-36.0); Mean Corpuscular Volume 84.6 fL (80.0-100.0); Mean Platelet Volume 10.4 fL (9.4-12.4); Monocytes # (auto) 0.63 K/uL (0.11-0.59); Monocytes % (auto) 7.2 %; Neutrophils # (auto) 6.82 K/uL (1.40-6.50); Neutrophils % (auto) 78.5 %; Platelet Count 163 K/uL (130-400); RDW Coefficient of Variation 16.5 % (11.5-14.5); RDW Standard Deviation 50.2 fL (36.4-46.3); Red Blood Count 4.34 M/uL (4.70-6.10); White Blood Count 8.69 K/ul (4.8-10.8)
[2023-12-08 06:25] LABS: BUN Creatinine Ratio 15.8 (10-20); Calcium 9.8 mg/dl (8.6-10.3); Creatinine Clr Calc Pharmacy 19.9 ml/min; Est GFR (Non-African American) 15.5 ml/min; Potassium 3.6 mmol/L (3.5-5.1)
[2023-12-08 06:34] LABS: INR 1.5 (0.9-1.1); Prothrombin Time 16.1 Seconds (9.0-12.0)
--- NOTE | 2023-12-08 09:44 | Nephrology Progress Note ---
Date of Service December 08, 2023 Assessment & Plan (1) Chronic kidney disease, stage 4 (severe): Plan: Baseline creatinine 2.8 - 3.2 mg/dL. Single kidney with underlying arterionephrosclerosis. Urine is bland and acellular. Creatinine slightly increased at 3.5 mg/dL this AM. Rise in creatinine noted with aggressive diuresis. Diuretics now held pending additional monitoring. Electrolytes are normal. 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 Potential futu re indications reviewed with patient this morning. Medications are appropriately dosed for kidney function. Low sodium diet. Document strict I/O's. Repeat metabolic profile tomorrow AM. (2) Diastolic CHF, acute on chronic: Plan: Clinically improved. Diuretics have been managed through the CHF clinic. Consider consultation with cardiology/CHF regarding diuretics moving forward. Avoid SGLT2i due to advanced kidney dysfunction. (3) Secondary hyperparathyroidism: Plan: Calcium acceptable. Continue calcitriol 0.5 mcg daily. (4) Iron deficiency: Plan: Venofer per hospitalist. Admission and Anticipated Discharge Date Admission Date: December 06, 2023 Subjective No acute events overnight. Kyler reports feeling tired this AM. He did not sleep well last night. He notes that he often feels tired; this has been an issue for years. He also became nauseous and vomited after breakfast this morning. This is not typical. He has not experienced symptoms like nausea and vomiting in a very long time. He reports normal bowel movement yesterday. No bowel movement today. No abdominal pain. He is breathing comfortably. He denies any chest pains or palpitations. Bumex has been held since yesterday AM. Kyler had a robust response to diuretics. Review of Systems Review of Systems: All systems reviewed & are unremarkable except as noted in HPI & below Physical Exam Constitutional: well developed and + morbidly obese; no acute distress Eyes: no scleral abnormality and no corneal abnormality ENMT: Mouth: no oral mucosal abnormality and oral mucous membranes not dry Neck: normal visual inspection and trachea midline Respiratory: normal respiratory effort Auscultation: lungs clear to auscultation bilaterally, + rhonchi and + wheezes Cardiovascular: Rate/Rhythm: regular rate Heart Sounds: normal S1, normal S2 and + murmur Extremities: + edema Musculoskeletal: Extremities: no cyanosis and no clubbing Skin: no jaundice Neurologic: Motor/Sensory: no tremor and no asterixis Psychiatric: Orientation: alert and oriented x 3 Results & Data Vital Signs (Past 12 Hours) Vital Signs Temp Pulse Pulse Resp BP BP Pulse Ox 12/08/23 09:30 12/08/23 07:19 71 12/08/23 07:08 36.4 C L 93 H 16 115/77 99 12/08/23 05:21 36.3 C L 82 20 109/75 98 12/08/23 00:26 36.7 C 91 H 20 93/56 L 90 12/07/23 22:45 80 O2 Del Method O2 Flow Rate 12/08/23 09:30 Nasal Cannula 2 12/08/23 07:19 12/08/23 07:08 CPAP 12/08/23 05:21 CPAP 2 12/08/23 00:26 Nasal Cannula 2 12/07/23 22:45 Laboratory Results Laboratory Results - last 24 hr 12/07/23 12/07/23 12/08/23 03:55 16:11 05:27 WBC 8.69 RBC 4.34 L Hgb 11.1 L Hct 36.7 L MCV 84.6 MCH 25.6 MCHC 30.2 L RDW Std Deviation 50.2 H RDW Coeff of Sarah 16.5 H Plt Count 163 MPV 10.4 Immature Gran % (Auto) 0.5 Neut % (Auto) 78.5 Lymph % (Auto) 9.9 Dillon % (Auto) 7.2 Eos % (Auto) 3.0 Baso % (Auto) 0.9 Neut # (Auto) 6.82 H Lymph # (Auto) 0.86 L Dillon # (Auto) 0.63 H Eos # (Auto) 0.26 Baso # (Auto) 0.08 Immature Gran # (Auto) 0.04 PT 16.1 H INR 1.5 H Sodium 140 143 Potassium 3.5 3.6 Chloride 102 102 Carbon Dioxide 30 33 H Anion Gap 8 8 BUN 57 H 55 H Creatinine 3.70 H D 3.49 H Est Cr Clr Drug Dosing 18.9 19.9 Est GFR ( Amer) 16.7 18.0 Est GFR (Non-Af Amer) 14.4 15.5 BUN/Creatinine Ratio 15.4 15.8 Glucose 83 104 H Calcium 9.6 9.8 Magnesium 2.1 2.0 Lactate Dehydrogenase 205 Vitamin B12 399 PG Care Time/CCT Total # of Minutes Spent Total Time Spent with Patient: Total time spent is greater than 50% in coordination of care (as documented) at patient's floor/unit and/or counseling patient: Coding Level of Care Code 17144 SUB INP/OBS CARE 3/50MIN Diagnoses Chronic kidney disease, stage 4 (severe) N18.4 Diastolic CHF, acute on chronic I50.33 Secondary hyperparathyroidism N25.81 Iron deficiency E61.1
[2023-12-08] MEDS: IRON SUCROSE 300 MG in SODIUM CHLORIDE 0.9% 250 ML IV ONE (10:19)
[2023-12-08] MEDS: BUMETANIDE 3 MG in SYRINGE 0 ML IV ONE (11:22)
--- NOTE | 2023-12-08 11:38 | Electrocardiogram Report ---
Test Reason : Blood Pressure : */* mmHG Vent. Rate : 77 BPM Atrial Rate : 51 BPM P-R Int : * ms QRS Dur : 100 ms QT Int : 392 ms P-R-T Axes : * 77 166 degrees QTcB Int : 443 ms Atrial fibrillation Abnormal ECG When compared with ECG of 06-Dec-2023 10:14, T wave inversion more evident in Anterior leads Confirmed by Gilmer Sanchez [id number]) on 12/08/2023 11:37:54 AM Referred By: REFERRED SELF Confirmed By: Gilmer Sanchez
--- NOTE | 2023-12-08 15:28 | Hospitalist Progress Note ---
Date of Service December 08, 2023 Assessment & Plan (1) Chronic diastolic CHF (congestive heart failure): Plan: ACUTE ON CHRONIC DIASTOLIC HEART FAILURE, possible cardiorenal syndrome in setting of CKD IV with acute on chronic respiratory failure P/w complaints of progressive weight gain/swelling and increased respiratory symptoms compared to baseline (on 2L NC). Prior ECHO 09/15/23 noting normal EF 60-65% with mild-moderate mitral regurgitation. 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 to 3.4--> can resume Bumex 3mg IV x 1 this AM and then hold, follow BMP in AM Follow I/Os, daily weights, low sodium diet, fluid restriction Monitor weights/I&Os Nephrology on consult given CKD w/ Cr 3.33 regarding possible HD in the future (2) Chronic kidney disease, stage 4 (severe): Plan: With DEONNA on CKD stage 4- 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 and does not consistently take an iron supplement Gave two doses of IV iron here but both times made him have nausea and vomiting Hold further IV iron B12 normal Fecal occult ordered and pending FOllow CBC Plan DVT proph: Xarelto Dispo: continued inpatient stay with diuresis, DEONNA, possible dc to home in 1-2 days if continues to improve and renal function improving Admission and Anticipated Discharge Date Admission Date: December 06, 2023 Subjective Pt feeling less SOB but had one episode of vomiting this AM and also felt nauseated all day, both times after receiving IV iron I discussed his care with Nephrology Tele with Afib, PVCs, rates 70-80s Physical Exam Constitutional: WD/WN, vitals as above Respiratory: normal respiratory effort Auscultation: + crackles (right base); no rhonchi and no wheezes Cardiovascular: Rate/Rhythm: regular rate and + irregularly irregular Heart Sounds: no murmur Extremities: + edema (trace edema legs bilat) Psychiatric: A+Ox3, euthymic affect Results & Data Results & Data Vital Signs (Past 12 Hours) Vital Signs Temp Pulse Pulse Resp BP BP Pulse Ox 12/08/23 14:20 99 H 12/08/23 10:44 36.6 C 76 18 98/68 L 99 12/08/23 09:30 12/08/23 07:19 71 12/08/23 07:08 36.4 C L 93 H 16 115/77 99 12/08/23 05:21 36.3 C L 82 20 109/75 98 O2 Del Method O2 Flow Rate 12/08/23 14:20 12/08/23 10:44 Nasal Cannula 2 12/08/23 09:30 Nasal Cannula 2 12/08/23 07:19 12/08/23 07:08 CPAP 12/08/23 05:21 CPAP 2 Laboratory Results CBC, BMP, magnesium reviewed PG Care Time/CCT Total # of Minutes Spent Total Time Spent with Patient: Total time spent is greater than 50% in coordination of care (as documented) at patient's floor/unit and/or counseling patient: Coding Level of Care Code 09276 SUB INP/OBS CARE 2/35MIN Diagnoses Chronic diastolic CHF (congestive heart failure) I50.32 Chronic kidney disease, stage 4 (severe) N18.4 Atrial fibrillation I48.21 Atrial fibrillation type: permanent Obstructive sleep apnea G47.33 Iron deficiency E61.1 (3) Atrial fibrillation Atrial fibrillation type: permanent Qualified Code(s): I48.21 - Permanent atrial fibrillation
[2023-12-09 05:08] LABS: Basophils # (auto) 0.09 K/uL (0.00-0.20); Basophils % (auto) 1.1 %; Eosinophils # (auto) 0.26 K/uL (0.00-0.50); Eosinophils % (auto) 3.1 %; Hematocrit (blood only) 37.1 % (42.0-52.0); Hemoglobin 11.2 g/dl (14.0-18.0); Immature Granulocytes # (auto) 0.03 K/uL (0.01-0.20); Immature Granulocytes % (auto) 0.4 %; Lymphocytes # (auto) 1.09 K/uL (1.20-3.40); Lymphocytes % (auto) 12.9 %; Mean Corpuscular Hemoglobin 25.2 pg (25.0-34.0); Mean Corpuscular Hgb Conc 30.2 g/dL (32.0-36.0); Mean Corpuscular Volume 83.6 fL (80.0-100.0); Mean Platelet Volume 10.3 fL (9.4-12.4); Monocytes % (auto) 10.7 %; Neutrophils # (auto) 6.07 K/uL (1.40-6.50); Neutrophils % (auto) 71.8 %; Nucleated RBC # (auto) 0.03 K/uL (0.00-0.12); Nucleated RBC % (auto) 0.4 %; Platelet Count 175 K/uL (130-400); RDW Coefficient of Variation 16.6 % (11.5-14.5); RDW Standard Deviation 50.2 fL (36.4-46.3); Red Blood Count 4.44 M/uL (4.70-6.10); White Blood Count 8.44 K/ul (4.8-10.8)
[2023-12-09 05:14] LABS: BUN Creatinine Ratio 16.2 (10-20); Calcium 9.8 mg/dl (8.6-10.3); Creatinine Clr Calc Pharmacy 22.6 ml/min; Est GFR (African American) 20.9 ml/min; Magnesium 1.9 mg/dl (1.7-2.4); Potassium 3.1 mmol/L (3.5-5.1)
[2023-12-09] MEDS: ACETAMINOPHEN 325 MG TAB PO PRN (05:25)
--- NOTE | 2023-12-09 09:38 | Nephrology Progress Note ---
Date of Service December 09, 2023 Assessment & Plan (1) Chronic kidney disease, stage 4 (severe): Plan: Baseline creatinine 2.8 - 3.2 mg/dL. Single kidney with underlying arterionephrosclerosis. Urine is bland and acellular. Electrolytes are normal. 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 Medications are appropriately dosed for kidney function. (2) Diastolic CHF, acute on chronic: Plan: Diuresing well. Volume status improved. Bumex per hospitalist. Consider transition to PO diuretics and coordination with cardiology-CHF clinic regarding diuretic management moving forward. Avoid SGLT2i due to advanced kidney dysfunction. (3) Secondary hyperparathyroidism: Plan: Calcium acceptable. Continue calcitriol 0.5 mcg daily. (4) Iron deficiency: Plan: IV iron replacement has been provided. Admission and Anticipated Discharge Date Admission Date: December 06, 2023 Subjective No acute events overnight. Kyler reports feeling reasonably well this AM. He is breathing comfortably. He denies chest pains or palpitations. He is not experiencing lightheadedness or dizziness. He reports a slight cramp in his leg and some discomfort in both ankles. He describes tightness in both ankles. Edema continues to improve. Review of Systems Review of Systems: All systems reviewed & are unremarkable except as noted in HPI & below Physical Exam Constitutional: well developed; no acute distress Eyes: + anicteric sclerae ENMT: Mouth: oral mucous membranes not dry Neck: normal visual inspection and trachea midline Respiratory: normal respiratory effort Auscultation: lungs clear to auscultation bilaterally and + rales (soft at bases) Cardiovascular: Rate/Rhythm: + tachycardic and + irregularly irregular Heart Sounds: normal S1, normal S2 and + murmur Extremities: + edema (significantly improved - BL LE, trace) Musculoskeletal: Extremities: no cyanosis and no clubbing Skin: + turgor decreased; no lesions and no ja undice Neurologic: Motor/Sensory: no tremor and no asterixis Psychiatric: Orientation: alert and oriented x 3 Results & Data Vital Signs (Past 12 Hours) Vital Signs Temp Pulse Pulse Resp BP BP Pulse Ox 12/09/23 08:22 104 H 12/09/23 07:44 12/09/23 07:19 36.7 C 92 H 16 93/51 L 97/63 L 96 12/09/23 04:00 36 C L 106 H 16 111/73 99 09/11/24 00:29 36.3 C L 94 H 16 96/61 L 96 12/08/23 22:49 86 O2 Del Method O2 Flow Rate 12/09/23 08:22 12/09/23 07:44 Nasal Cannula 2 12/09/23 07:19 Nasal Cannula 2 12/09/23 04:00 Room Air 12/09/23 00:29 Room Air 12/08/23 22:49 PG Care Time/CCT Total # of Minutes Spent Total Time Spent with Patient: Total time spent is greater than 50% in coordination of care (as documented) at patient's floor/unit and/or counseling patient: Coding Level of Care Code 38072 SUB INP/OBS CARE 3/50MIN Diagnoses Chronic kidney disease, stage 4 (severe) N18.4 Diastolic CHF, acute on chronic I50.33 Secondary hyperparathyroidism N25.81 Iron deficiency E61.1
[2023-12-09] MEDS: POTASSIUM CHLORIDE CRTAB 20 MEQ TABCR PO SCH ×2 (10:14→20:12)
[2023-12-09] MEDS: POTASSIUM CHLORIDE CRTAB 20 MEQ TABCR PO STA (10:14)
[2023-12-09] MEDS: METOPROLOL TARTRATE 25 MG TAB PO SCH ×2 (11:03→16:46)
[2023-12-09] MEDS: BUMETANIDE 2 MG in SYRINGE 0 ML IV ONE (11:04)
[2023-12-09] MEDS: MAGNESIUM SULFATE / D5W 1 GM/100 ML BAG IV ONE (11:11)
[2023-12-09] MEDS ORDERED: POTASSIUM CHLORIDE CRTAB 20 MEQ TABCR PO SCH (14:00)
--- NOTE | 2023-12-09 17:59 | Hospitalist Progress Note ---
Date of Service December 09, 2023 Assessment & Plan (1) Chronic diastolic CHF (congestive heart failure): Plan: ACUTE ON CHRONIC DIASTOLIC HEART FAILURE, possible cardiorenal syndrome in setting of CKD IV with acute on chronic respiratory failure P/w complaints of progressive weight gain/swelling and increased respiratory symptoms compared to baseline (on 2L NC). Prior ECHO 09/15/23 noting normal EF 60-65% with mild-moderate mitral regurgitation. CXR with pulmonary edema, bilateral pleural effusions Suspect his volume overload is likely a combination of his severe CKD and noncompliance with sodium restriction, as well as not following instructions to start as needed metolazone for increased weight gain compared to dry weight of 245 pounds and was 255lb on admission Diuresing well and feeling much better with bumex 3mg IV BID, metolazone 5mg daily, but now held metolazone Ceramist continues to be improving down to 3.0--> gave Bumex 2mg IV x 1 today Follow BMP again in AM Reached out to ANDREW Ramirez of CHF clinic who will review chart tomorrow when she is in office and arrange close f/u Will likely switch to po Bumex tomorrow and dc to home Follow I/Os, daily weights, low sodium diet, fluid restriction Monitor weights/I&Os Nephrology on consult -appreciated (2) Chronic kidney disease, stage 4 (severe): Plan: With DEONNA on CKD stage 4- 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, came in at 3.7 and now improved to 3.0 with diuresis avoid nephrotoxins, renally dose meds Nephro following (3) Atrial fibrillation: Plan: Rates high today as he had his Toprol XL 200mg hs held for 2 nights in a row for soft BPs Change to metoprolol tartrate 25mg po qid today and watch BPs, may end up having to decrease Toprol dose to 150 His diltiazem has been on hold for several day sand I don't think his BP will allow this to be resumed He has c/o severe fatigue at home-perhaps he is having low BPs at home causing this Continue Xarelto Monitor on tele (4) Obstructive sleep apnea: Plan: Continue CPAP hs (5) Iron deficiency: Plan: Iron deficiency anemia. 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 Also c/o heart palpitations with rapid afib. He had his Toprol XL held two nights in a row for soft BPs. He denies SOB and walked around room with PT today. Tele with Afib, rates 80-100s with some bursts to 150s with minimal exertion Physical Exam Constitutional: WD/WN, vitals as above Respiratory: normal respiratory effort Auscultation: lungs clear to auscultation bilaterally Cardiovascular: Rate/Rhythm: regular rate and + irregularly irregular Heart Sounds: no murmur Extremities: + edema (trace edema legs bilat) Psychiatric: A+Ox3, euthymic affect Results & Data Results & Data Vital Signs (Past 12 Hours) Vital Signs Temp Pulse Pulse Resp BP BP Pulse Ox 12/09/23 16:21 95 H 12/09/23 15:30 36.5 C 102 H 16 100/69 97 12/09/23 12:55 97 12/09/23 11:08 36.5 C 116 H 18 116/73 96 12/09/23 08:22 104 H 12/09/23 07:44 12/09/23 07:19 36.7 C 92 H 16 93/51 L 97/63 L 96 O2 Del Method O2 Flow Rate 12/09/23 16:21 12/09/23 15:30 Nasal Cannula 2 12/09/23 12:55 12/09/23 11:08 Oxymask 2 12/09/23 08:22 12/09/23 07:44 Nasal Cannula 2 12/09/23 07:19 Nasal Cannula 2 Laboratory Results CBC, BMP, magnesium reviewed PG Care Time/CCT Total # of Minutes Spent Total Time Spent with Patient: Total time spent is greater than 50% in coordination of care (as documented) at patient's floor/unit and/or counseling patient: Coding Level of Care Code 99435 SUB INP/OBS CARE 2/35MIN Diagnoses Chronic diastolic CHF (congestive heart failure) I50.32 Chronic kidney disease, stage 4 (severe) N18.4 Atrial fibrillation I48.21 Atrial fibrillation type: permanent Obstructive sleep apnea G47.33 Iron deficiency E61.1 (3) Atrial fibrillation Atrial fibrillation type: permanent Qualified Code(s): I48.21 - Permanent atrial fibrillation
[2023-12-10 06:25] LABS: Basophils # (auto) 0.11 K/uL (0.00-0.20); Basophils % (auto) 1.4 %; Eosinophils # (auto) 0.36 K/uL (0.00-0.50); Eosinophils % (auto) 4.7 %; Hematocrit (blood only) 37.5 % (42.0-52.0); Hemoglobin 11.2 g/dl (14.0-18.0); Immature Granulocytes # (auto) 0.03 K/uL (0.01-0.20); Immature Granulocytes % (auto) 0.4 %; Lymphocytes # (auto) 1.44 K/uL (1.20-3.40); Lymphocytes % (auto) 18.9 %; Mean Corpuscular Hemoglobin 25.5 pg (25.0-34.0); Mean Corpuscular Hgb Conc 29.9 g/dL (32.0-36.0); Mean Corpuscular Volume 85.2 fL (80.0-100.0); Mean Platelet Volume 9.8 fL (9.4-12.4); Monocytes # (auto) 0.86 K/uL (0.11-0.59); Monocytes % (auto) 11.3 %; Neutrophils # (auto) 4.81 K/uL (1.40-6.50); Neutrophils % (auto) 63.3 %; Nucleated RBC # (auto) 0.04 K/uL (0.00-0.12); Nucleated RBC % (auto) 0.5 %; Platelet Count 169 K/uL (130-400); RDW Coefficient of Variation 16.6 % (11.5-14.5); RDW Standard Deviation 50.8 fL (36.4-46.3); White Blood Count 7.61 K/ul (4.8-10.8)
[2023-12-10 06:28] LABS: BUN Creatinine Ratio 16.9 (10-20); Calcium 9.6 mg/dl (8.6-10.3); Est GFR (African American) 20.9 ml/min; Magnesium 2.1 mg/dl (1.7-2.4); Potassium 3.2 mmol/L (3.5-5.1)
[2023-12-10] MEDS: POTASSIUM CHLORIDE CRTAB 20 MEQ TABCR PO SCH (08:44)
--- NOTE | 2023-12-10 09:35 | Nephrology Progress Note ---
Date of Service December 10, 2023 Assessment & Plan (1) Chronic kidney disease, stage 4 (severe): Plan: Baseline creatinine 2.8 - 3.2 mg/dL. Single kidney with underlying arterionephrosclerosis. Electrolytes are normal. Volume status controlled. 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 Medications are appropriately dosed for kidney function. (2) Diastolic CHF, acute on chronic: Plan: Diuresing well. Volume status significantly improved. Consider transition to PO diuretics and coordination with cardiology-CHF clinic regarding diuretic management moving forward. Avoid SGLT2i due to advanced kidney dysfunction. (3) Secondary hyperparathyroidism: Plan: Calcium acceptable. Continue calcitriol 0.5 mcg daily. (4) Iron deficiency: Plan: IV iron replacement has been provided. H/H stable. Admission and Anticipated Discharge Date Admission Date: December 06, 2023 Subjective No acute events overnight. Kyler experienced an episode of palpitations and associated symptoms from rapid atrial fibrillation (shortness of breath and lightheadedness) while resting in bed yesterday. Symptoms slowly resolved over about 1-2 hours. Episodes like this make him very anxious. Other than some anxiety, he feels well this morning but states that it has been a slow start and he has not been up and moving around. He continues to endorse some discomfort in both ankles. It was worse when he first put his feet on the floor but has been slowly improving. The joints are not red or swollen. He can tell that he did not diurese as aggressively yesterday. Urine volume was lower and he did not have to wake up very frequently overnight. He has also felt less lightheaded when standing and he notes that his BP has been slightly higher. He is breathing comfortably sitting in bed this morning. Review of Systems Review of Systems: All systems reviewed & are unremarkable except as noted in HPI & below Physical Exam Constitutional: well developed and + morbidly obese; no acute distress Eyes: + anicteric sclerae ENMT: Mouth: oral mucous membranes not dry Neck: normal visual inspection and trachea midline Respiratory: normal respiratory effort Auscultation: lungs clear to auscultation bilaterally Cardiovascular: Rate/Rhythm: + irregularly irregular Heart Sounds: normal S1, normal S2 and + murmur Extremities: + pedal edema Musculoskeletal: Extremities: no cyanosis and no clubbing Skin: + turgor decreased; no jaundice Neurologic: Motor/Sensory: no tremor and no asterixis Psychiatric: Orientation: alert and oriented x 3 Results & Data Vital Signs (Past 12 Hours) Vital Signs Temp Pulse Pulse Resp BP Pulse Ox O2 Del Method 12/10/23 08:10 36.5 C 86 20 102/71 92 Room Air 12/10/23 08:04 CPAP 12/10/23 07:43 81 12/10/23 03:14 36.4 C L 77 16 105/71 98 CPAP 12/09/23 23:17 36.5 C 80 16 99/63 L 98 CPAP 12/09/23 22:43 93 H Laboratory Results Laboratory Results - last 24 hr 12/09/23 12/10/23 16:00 05:40 WBC 7.61 RBC 4.40 L Hgb 11.2 L Hct 37.5 L MCV 85.2 MCH 25.5 MCHC 29.9 L RDW Std Deviation 50.8 H RDW Coeff of Sarah 16.6 H Plt Count 169 MPV 9.8 Immature Gran % (Auto) 0.4 Neut % (Auto) 63.3 Lymph % (Auto) 18.9 Rabun % (Auto) 11.3 Eos % (Auto) 4.7 Baso % (Auto) 1.4 Neut # (Auto) 4.81 Lymph # (Auto) 1.44 Rabun # (Auto) 0.86 H Eos # (Auto) 0.36 Baso # (Auto) 0.11 Immature Gran # (Auto) 0.03 Absolute Nucleated RBC 0.04 Nucleated RBC % (auto) 0.5 Sodium 143 Potassium 3.2 L Chloride 99 Carbon Dioxide 37 H Anion Gap 7 BUN 52 H Creatinine 3.08 H Est Cr Clr Drug Dosing 22.0 Est GFR ( Amer) 20.9 Est GFR (Non-Af Amer) 18.0 BUN/Creatinine Ratio 16.9 Glucose 107 H Calcium 9.6 Magnesium 2.1 Stool Occult Bld Scrn Negative PG Care Time/CCT Total # of Minutes Spent Total Time Spent with Patient: Total time spent is greater than 50% in coordination of care (as documented) at patient's floor/unit and/or counseling patient: Coding Level of Care Code 57717 SUB INP/OBS CARE 3/50MIN Diagnoses Chronic kidney disease, stage 4 (severe) N18.4 Diastolic CHF, acute on chronic I50.33 Secondary hyperparathyroidism N25.81 Iron deficiency E61.1
[2023-12-10] MEDS: METOPROLOL SUCC 50MG EXT REL TAB PO SCH (14:02)
[2023-12-10] MEDS: BUMETANIDE 1 MG TAB PO SCH (15:31)
--- NOTE | 2023-12-10 16:03 | Hospitalist Progress Note ---
Date of Service December 10, 2023 Assessment & Plan (1) Chronic diastolic CHF (congestive heart failure): Plan: ACUTE ON CHRONIC DIASTOLIC HEART FAILURE, possible cardiorenal syndrome in setting of CKD IV with acute on chronic respiratory failure P/w complaints of progressive weight gain/swelling and increased respiratory symptoms (on 2L NC). Prior ECHO 09/15/23 w/ EF 60-65% with mild-moderate mitral regurgitation. CXR with pulmonary edema, bilateral pleural effusions Suspect his volume overload is likely a combination of his severe CKD and noncompliance with sodium restriction while at [place] prior to admission. He did not use his metolazone for increased weight gain Dry weight of 245 pounds and was 255lb on admission Continues to be diuresing well and feeling much better with bumex 3mg IV BID, weight down 8 kg, net neg -7.6L Department Specialist improved and stable at 3.0--convert to po Bumex 3mg daily and follow weights, I/Os Follow BMP again in AM CHF clinic to arrange close f/u Follow I/Os, daily weights, low sodium diet, fluid restriction Nephrology on consult -appreciated Resuming home eplerenone today Replace K+ for hypokalemia--> increased KCl to 40 meq po bid (2) Chronic kidney disease, stage 4 (severe): Plan: With DEONNA on CKD stage 4- baseline plaster caster 2.8-3.0, came in at 3.7 and now improved to 3.0 with diuresis avoid nephrotoxins, renally dose meds Nephro following (3) Atrial fibrillation: Plan: Rates became elevated after his Toprol XL 200mg hs was held for 2 nights in a row for soft BPs Decreased metoprolol dose and now convert to Toprol 100mg daily His diltiazem has been on hold for many days and I don't think his BP will allow this to be resumed He has c/o severe fatigue at home-perhaps he is having low BPs at home causing this Continue Xarelto Monitor on tele (4) Obstructive sleep apnea: Plan: Continue CPAP hs (5) Iron deficiency: Plan: Iron deficiency anemia. Hgb 11.2 and stable Fe studies abnormal, does have a h/o gastric bypass and does not consistently take an iron supplement Gave two doses of IV iron here but both times made him have nausea and vomiting Hold further IV iron B12 normal Fecal occult negative here FOllow CBC as outpt Plan DVT proph: Xarelto Dispo: continued inpatient stay to monitor soft BPs with adding eplerenone back to regimen, see if po Bumex keeps weight stable, monitor renal function. Likely dc to home tomorrow Admission and Anticipated Discharge Date Admission Date: December 06, 2023 Anticipated date of discharge: 12/11/23 Subjective Still feeling tired. Moving bowels. No SOB but wants to try to walk halls. Tele with Afib, rates in 60-80s, BPs remain soft but no lightheadedness Discussed care with Dr. Churchill of Nephrology Physical Exam Constitutional: WD/WN, vitals as above Respiratory: normal respiratory effort Auscultation: lungs clear to auscultation bilaterally and + crackles (right base); no rhonchi and no wheezes Cardiovascular: Rate/Rhythm: regular rate and + irregularly irregular Heart Sounds: no murmur Extremities: + edema (trace edema legs bilat) Psychiatric: A+Ox3, euthymic affect Results & Data Results & Data Vital Signs (Past 12 Hours) Vital Signs Temp Pulse Pulse Pulse Resp BP BP 12/10/23 15:57 36.3 C L 88 14 98/70 L 12/10/23 15:55 101 H 12/10/23 13:31 92 H 94/63 L 12/10/23 12:20 36.7 C 84 14 105/70 12/10/23 11:22 36.5 C 92 H 20 91/63 L 12/10/23 08:10 36.5 C 86 20 102/71 12/10/23 08:04 12/10/23 07:43 81 Pulse Ox O2 Del Method O2 Flow Rate 12/10/23 15:57 99 Room Air 12/10/23 15:55 12/10/23 13:31 12/10/23 12:20 100 Room Air 12/10/23 11:22 100 Nasal Cannula 2 12/10/23 08:10 92 Room Air 12/10/23 08:04 CPAP 12/10/23 07:43 Laboratory Results CBC, BMP, magnesium reviewed PG Care Time/CCT Total # of Minutes Spent Total Time Spent with Patient: Total time spent is greater than 50% in coordination of care (as documented) at patient's floor/unit and/or counseling patient: Coding Level of Care Code 93025 SUB INP/OBS CARE MIN Diagnoses Chronic diastolic CHF (congestive heart failure) I50.32 Chronic kidney disease, stage 4 (severe) N18.4 Atrial fibrillation I48.21 Atrial fibrillation type: permanent Obstructive sleep apnea G47.33 Iron deficiency E61.1 (3) Atrial fibrillation Atrial fibrillation type: permanent Qualified Code(s): I48.21 - Permanent atrial fibrillation
[2023-12-10] MEDS: predniSONE 20 MG TAB PO STA (16:30)
[2023-12-10] MEDS: EPLERENONE PO SCH (18:05)
[2023-12-11 06:21] LABS: Calcium 9.8 mg/dl (8.6-10.3); Creatinine Clr Calc Pharmacy 22.2 ml/min; Est GFR (African American) 21.1 ml/min; Est GFR (Non-African American) 18.2 ml/min; Potassium 3.5 mmol/L (3.5-5.1)
[2023-12-11 08:17] VITALS: RESP 20
[2023-12-11] MEDS: predniSONE 20 MG TAB PO SCH (08:34)
[2023-12-11] MEDS: METOPROLOL SUCC 50MG EXT REL TAB PO SCH (08:34)
--- NOTE | 2023-12-11 09:28 | Nephrology Progress Note ---
Date of Service December 11, 2023 Assessment & Plan (1) Chronic kidney disease, stage 4 (severe): Plan: Baseline creatinine 2.8 - 3.2 mg/dL. Single kidney with underlying arterionephrosclerosis. Electrolytes are normal. Volume status controlled. 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 Medications are appropriately dosed for kidney function. Kidney function stable. Kyler has been transitioned to PO diuretics. Nephrology will sign-off. Please arrange outpatient follow up with Dr. Curry at discharge. (2) Diastolic CHF, acute on chronic: Plan: Volume status acceptable. Close outpatient follow up to be arranged with CHF clinic. Home dose of KCl and eplerenone can be resumed at discharge. PRN metolazone as previously Rx'd. Importance of low sodium diet reviewed. (3) Secondary hyperparathyroidism: Plan: Calcium acceptable. Continue calcitriol 0.5 mcg daily. (4) Iron deficiency: Plan: IV iron replacement has been provided. H/H stable. Admission and Anticipated Discharge Date Admission Date: December 06, 2023 Subjective No acute events overnight. Kyler reports some persistent discomfort in his ankles when getting out of bed. It is improving. He notes that his activity tolerance has improved significant since admission but he remains weak. Overall, he feels well and hopes to return home soon. He is breathing comfortably. He is not experiencing fluid retention or edema. Review of Systems Review of Systems: All systems reviewed & are unremarkable except as noted in HPI & below Musculoskeletal: + joint pain and + stiffness; no radicul ar pain and no swelling Physical Exam Constitutional: well developed and + morbidly obese; no acute distress Eyes: + anicteric sclerae ENMT: Mouth: no oral mucosal abnormality and oral mucous membranes not dry Neck: normal visual inspection and trachea midline Respiratory: normal respiratory effort Auscultation: lungs clear to auscultation bilaterally Cardiovascular: Rate/Rhythm: + irregularly irregular Heart Sounds: normal S1, normal S2 and + murmur Extremities: + pedal edema (compression stockings) Musculoskeletal: Extremities: no cyanosis and no clubbing Skin: normal turgor and + turgor decreased; no lesions and no jaundice Neurologic: Motor/Sensory: no tremor and no asterixis Psychiatric: Orientation: alert and oriented x 3 Results & Data Vital Signs (Past 12 Hours) Vital Signs Temp Pulse Pulse Resp BP BP Pulse Ox 12/11/23 08:30 90 116/80 12/11/23 08:16 36.3 C L 82 20 95/60 L 98 12/11/23 07:40 12/11/23 07:38 88 12/11/23 02:54 36.3 C L 91 H 18 98/61 L 97 12/10/23 23:16 36.9 C 96 H 18 99/64 L 93 12/10/23 21:58 O2 Del Method O2 Flow Rate 12/11/23 08:30 12/11/23 08:16 Nasal Cannula 2 12/11/23 07:40 Nasal Cannula 2 12/11/23 07:38 12/11/23 02:54 Nasal Cannula, CPAP 2 12/10/23 23:16 Nasal Cannula, CPAP 2 12/10/23 21:58 Nasal Cannula, CPAP 2 Laboratory Results Laboratory Results - last 24 hr 12/11/23 05:42 Sodium 140 Potassium 3.5 Chloride 99 Carbon Dioxide 34 H Anion Gap 7 BUN 52 H Creatinine 3.06 H Est Cr Clr Drug Dosing 22.2 Est GFR ( Amer) 21.1 Est GFR (Non-Af Amer) 18.2 BUN/Creatinine Ratio 17.0 Glucose 129 H Calcium 9.8 Magnesium 2.0 PG Care Time/CCT Total # of Minutes Spent Total Time Spent with Patient: Total time spent is greater than 50% in coordination of care (as documented) at patient's floor/unit and/or counseling patient: Coding Level of Care Code 51478 SUB INP/OBS CARE 3/50MIN Diagnoses Chronic kidney disease, stage 4 (severe) N18.4 Diastolic CHF, acute on chronic I50.33 Secondary hyperparathyroidism N25.81 Iron deficiency E61.1
[2023-12-11 15:36] VITALS: PULSE 104; TEMP 97.5; O2SAT 99
--- NOTE | 2023-12-11 15:56 | Discharge Summary ---
Discharge Summary Date of Service December 11, 2023 Principal Dx & Hospital Course #1 = Principal Diagnosis (1) Chronic diastolic CHF (congestive heart failure): ACUTE ON CHRONIC DIASTOLIC HEART FAILURE, possible cardiorenal syndrome in setting of CKD IV with acute on chronic respiratory failure P/w complaints of progressive weight gain/swelling and increased respiratory symptoms (on 2L NC). Prior ECHO 09/15/23 w/ EF 60-65% with mild-moderate mitral regurgitation. CXR with pulmonary edema, bilateral pleural effusions Suspect his volume overload is likely a combination of his severe CKD and noncompliance with sodium restriction while at [place] prior to admission. 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 at 3.0--converted back to home dose of po Bumex 3mg daily and follow weights,low sodium diet at home CHF clinic to arrange close f/u Continue fluid restriction Nephrology on consult -appreciated Continue home eplerenone Replaced K+ for hypokalemia--> resume home dose on discharge, follow BMP as outpt (2) Chronic kidney disease, stage 4 (severe): With DEONNA on CKD stage 4- baseline bumboater 2.8-3.0, came in at 3.7 and now improved to 3.0 with diuresis avoid nephrotoxins, renally dose meds f/u with Nephro as outpt (3) Atrial fibrillation: Rates became elevated after his Toprol XL 200mg hs was held for 2 nights in a row for soft BPs Decreased metoprolol dose to Toprol 100mg daily and BPs in 90s systolic, HR controlled His diltiazem has been on hold for many days and I don't think his BP will allow this to be resumed-discontinued on discharge He has c/o severe fatigue at home-perhaps he is having low BPs at home causing this Continue Xarelto, renal dosing (4) Obstructive sleep apnea: Continue CPAP hs (5) Iron deficiency: Iron deficiency anemia. Hgb 11.2 and stable Fe studies abnormal, does have a h/o gastric bypass and does not consistently take an iron supplement Gave two doses of IV iron here but both times made him have nausea and vomiting Hold further IV iron B12 normal Fecal occult negative here FOllow CBC as outpt Plan DVT proph: Xarelto Dispo: dc to home today Notes For Next Care Provider Patient having issues with depressed mood while in hospital and in adjusting to idea he may need dialysis in the future-advised to f/u with PCP to discuss possible treatment with SSRI if persists Medication Changes From Visit Discontinued diltiazem Decreased Toprol XL to 100mg daily Admission HPI Per Admitting Provider Kyler is a pleasant 83-year-old male with PMH of diastolic CHF, hyperlipidemia, gout, bioprosthetic AVR, chronic venous insufficiency, anxiety, FIFI, renal cell carcinoma status post left nephrectomy, CKD stage IV, diabetes mellitus, atrial fibrillation (on Xarelto), HTN, and HLD who presented to the [facility] ED on 12/06/2023 with complaints of dyspnea on exertion, chest, and neck pain. On arrival to the ED he was noted to be mildly hypotensive at 94/65, tachypneic at 26, but otherwise stable. Labs were significant for an INR of 1.4, creatinine of 3.39 (baseline is 3.03.2), and full respiratory BioFire negative. Chest x-ray was read as cardiomegaly with pulmonary edema. Small pleural effusions with bibasilar opacities. ECG shows atrial fibrillation without acute ST segment or T wave changes compared to previous. Prior to admission the patient was given 4 mg IV Bumex. Patient was sitting in bed in no acute distress at time of exam with his sitting bedside, history is obtained from both. They explained that over the past 2 weeks the patient has developed progressive dyspnea on exertion limiting his ADLs compared to baseline. Symptoms became significantly worse over the past 72 hours to the point that he could only walk a few feet without having to rest. If he does not use his as needed 2 to 3 L nasal cannula he is incredibly limited functionally. When asked, patient explains [place] 12[place]23 and arrived home this a.m. When asked what he was eating/drinking I cannot he explains that he was having corndogs and did have [place] food on 12/05/2023. Confirms he was still taking his daily 3 mg p.o. Bumex and using his at bedtime CPAP even while I cannot. When asked if he had been taking his as needed metolazone for increased weight gain he states had not. Stressed the importance of being compliant with his fluid and sodium intake to prevent recurrent fluid retention and respiratory symptoms. I had a long CODE STATUS discussion with the patient and his as the patient has previously been a full code. I explained my concerns for low likelihood of resuscitation with CPR if he were to go into cardiac arrest and would also be concern for his quality of life moving forward if he went into cardiac arrest and CPR were performed. His expressed similar concerns that his quality of life would be very poor but the patient at this time still wishes to be a full code. He would also want a trial of intubation in the event of respiratory failure or cardiac arrest. He would want his to make medical decisions for him if he cannot make them himself. Patient confirms he did have his a.m. medications prior to arrival which included his home Bumex, epilator own, and diltiazem. Please refer to Dr. Dallas's attestation for any changes to the treatment plan Discharge Exam Constitutional WD/WN, vitals as above Respiratory normal respiratory effort Auscultation: lungs clear to auscultation bilaterally Cardiovascular Rate/Rhythm: regular rate and + irregularly irregular Heart Sounds: no murmur Extremities: + edema (trace edema legs bilat) Psychiatric Orientation: alert and oriented x 3 Mood: + depressed mood Discharge Plan Discharge Items Patient Disposition: Home - Self-Care Reason For Visit: volume overload, leyva Discharge Diagnosis: Acute on chronic heart failure Acute gout flare Activity: Resume your previous activity Non-emergency contact: Primary Care Provider, 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 Try to watch the sodium intake in your diet and restrict your fluid intake to no more than 1500mL in a day. You can finish 3 more days of prednisone for your gout attack. Call your Primary Care doctor if any of the following symptoms or problems start or get worse: * Shortness of breath or difficulty breathing * Wake up at night short of breath * Chest pain * Cough * Swelling of your hands, feet, or legs * More fatigued or tired with your normal activity * Palpitations - sudden fast heart beats WEIGHT * Weigh yourself every morning after using the bathroom. * Use the same scale. * Wear the same amount of clothing. * Write your weight down on a chart. * Call your Primary Care doctor if you gain more than 2-3 pounds in 1-2 days. MEDICATIONS * Use this discharge instruction sheet for medication instructions. * Take your medications at the time your doctor ordered. * Do not skip a dose of your medicines. * If you miss a dose of medicine, take it as soon as possible, but DO NOT DOUBLE A DOSE. * Read your medicine information when you get home. * Know all of the side effects of your medicine. If in doubt, ask your pharmacist * Call your Primary Care doctor's office if you have any side effects. * Be sure all of your doctors know what medicine and herbs you take (including cold, flu, and herbal medicine). Take the following with you to your follow-up doctor appointments: * Weight Chart * Medication List * List of questions Do not drink excessive alcohol, beer or wine. Pending Studies at Discharge: No Stand-Alone Forms: My [facility] Medications and DC Order Prescriptions: New metoprolol succinate 100 mg tablet extended release 24 hr 100 mg PO DAILY Qty: 30 0RF prednisone 20 mg Tablet 20 mg PO QAM Qty: 3 0RF Continued cyanocobalamin (vitamin B-12) 1,000 mcg/mL solution 1,000 mcg IM Q90D Qty: 30 0RF Rx Instructions: PER PT "CAN'T REMEMBER WHEN HAD IT LAST". metolazone 5 mg tablet 5 mg PO DAILY PRN (Reason: weight gain) Qty: 30 5RF rivaroxaban 15 mg tablet 15 mg PO HS Qty: 90 3RF eplerenone 25 mg tablet 25 mg PO QAM Qty: 90 3RF calcitriol 0.25 mcg capsule 0.5 mcg PO QAM Qty: 180 3RF potassium chloride 10 mEq capsule, extended release 10 meq PO BID Qty: 180 1RF Rx Instructions: pt took 2 extra capsules last night 12/05/2023 cyclobenzaprine 5 mg tablet 5 mg PO BID PRN (Reason: muscle pain/stiffness) Qty: 60 3RF tramadol 50 mg tablet 50 mg PO BID PRN (Reason: Pain) Qty: 60 0RF allopurinol 100 mg tablet 100 mg PO QAM Qty: 90 3RF bumetanide 2 mg tablet 3 mg PO DAILY 90 Days Qty: 135 3RF tamoxifen 20 mg tablet 20 mg PO DAILY Qty: 90 3RF mupirocin 2 % ointment 1 applic topical TID Qty: 22 2RF amoxicillin 500 mg tablet 2,000 mg PO DIRECTED PRN (Reason: 1 HOUR PRIOR TO DENTAL PROCEDURES) Patient Comments: 2,000 mg PO 1 hour prior to dental procedure.; Rx Instructions: TAKE 4 CAPSULES BY MOUTH 1 HOUR PRIOR TO DENTAL WORK (DME) Portable Oxygen Misc See Rx Instructions .Route Qty: 1 0RF Rx Instructions: As directed docusate sodium 100 mg Capsule 100 mg PO QAM PRN (Reason: Constipation) magnesium 250 mg Tablet 250 mg PO DAILY cholecalciferol (vitamin D3) [Vitamin D3] 50 mcg (2,000 unit) Capsule 50 mcg PO DAILY Discontinued metoprolol succinate 200 mg tablet extended release 24 hr 200 mg PO HS Qty: 90 3RF diltiazem HCl 120 mg capsule,extended release 24 hr 120 mg PO DAILY Qty: 30 8RF Discharge Orders: Discharge Order- CHF (Routine); Ordered 12/11/23 Ordered By: Shelia Frank Admission Data Admit Date/Time: 12/06/23 12:12 Attending Provider: Shelia Frank Admit Provider: Sushil Dallas Primary Care Provider: Zackery Cochran Other Providers: Sushil Dallas; Tania Boogie Hospital Stay Data Consultations 12/06/23 12:04 ED Decision to Admit Stat 12/06/23 12:51 Consult Nephrology Routine Pending Results Patient Have Any Pending Studies at Discharge: No Discharge Instructions Given to Patient (Per Discharging Provider) Due to your low blood pressures, your diltiazem was stopped and your metoprolol dose was cut in half to 100mg daily. Try to watch the sodium intake in your diet and restrict your fluid intake to no more than 1500mL in a day. You can finish 3 more days of prednisone for your gout attack. Call your Primary Care doctor if any of the following symptoms or problems start or get worse: * Shortness of breath or difficulty breathing * Wake up at night short of breath * Chest pain * Cough * Swelling of your hands, feet, or legs * More fatigued or tired with your normal activity * Palpitations - sudden fast heart beats WEIGHT * Weigh yourself every morning after using the bathroom. * Use the same scale. * Wear the same amount of clothing. * Write your weight down on a chart. * Call your Primary Care doctor if you gain more than 2-3 pounds in 1-2 days. MEDICATIONS * Use this discharge instruction sheet for medication instructions. * Take your medications at the time your doctor ordered. * Do not skip a dose of your medicines. * If you miss a dose of medicine, take it as soon as possible, but DO NOT DOUBLE A DOSE. * Read your medicine information when you get home. * Know all of the side effects of your medicine. If in doubt, ask your pharmacist * Call your Primary Care doctor's office if you have any side effects. * Be sure all of your doctors know what medicine and herbs you take (including cold, flu, and herbal medicine). Take the following with you to your follow-up doctor appointments: * Weight Chart * Medication List * List of questions Do not drink excessive alcohol, beer or wine. Total Time Total Time Spent Total Time Spent (In Minutes): 35 min Total Time Includes: Examination of the Patient, Discharge Planning, Medication Reconciliation and Communication With Other Providers (Nephrology) Coding Level of Care Code 21382 INP/OBS DISCH >30 MIN Diagnoses Chronic diastolic CHF (congestive heart failure) I50.32 Chronic kidney disease, stage 4 (severe) N18.4 Atrial fibrillation I48.21 Atrial fibrillation type: permanent Obstructive sleep apnea G47.33 Iron deficiency E61.1
[2023-12-11 16:31] VITALS: BP 116/80
== END 2023-12-11 18:47 | disposition home or self-care (01) | DRG 291 ==
LOC: ED 09:54 → SUATTDRO 12:12 → 2W 12:12

== ENCOUNTER 2023-12-22 14:12 | Inpatient (IN) ==
--- NOTE | 2023-12-22 14:24 | ED Triage Note ---
Date of Service December 22, 2023 Provider in Triage Author: Maria Fernanda Amato History of Present Illness This patient was briefly evaluated while in triage. An abbreviated physical exam was performed. 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 Confirms he is taking Bumex 3 mg daily at home. Weight is stable and below baseline. Renal function is stable. He is having mild lower extremity edema. Dyspnea significantly worse today, even at rest despite supplemental O2. He is having a cough and rigors intermittently at home. He is having difficulties ambulating at home due to generalized weakness. Patient feels he may need to go to the hospital and I do agree. Recommend further workup and evaluation in the ED- r/o infectious process. Will likely need rehab placement. As had no significant benefit in symptoms post cardioversion. His rate control has been suboptimal. Continue Metoprolol for rate control. He is taking 100 mg daily. Having had difficulty titrating due to hypotension. Also taking Diltiazem. Continue to monitor rates at home.Continue anticoagulation with Xarelto. Holter done recently with average heart rate 83 bmp. Monitor for hypotension at home. He is asymptomatic. Edema: Patient notes he's had venous procedures in the past. May be worth repeating his imaging studies. Continue to optimize with diuretics for now. Follow up with Dr. Izquierdo in December. Continues elevation and compression. Disposition: Recommend ED for further evaluation. ED charge nurse made aware. Patient prefers to transport by private vehicle. His son agrees and is comfortable transporting. Physical Exam GENERAL: NAD CARDIOVASCULAR: RRR RESPIRATORY: CTA Initial orders for labs and / or imaging were placed and patient was placed in the waiting area until a bed is available. Please see further documentation for the full ED course.
[2023-12-22 15:50] LABS: Basophils # (auto) 0.05 K/uL (0.00-0.20); Basophils % (auto) 0.4 %; Eosinophils # (auto) 0.01 K/uL (0.00-0.50); Eosinophils % (auto) 0.1 %; Hemoglobin 11.8 g/dl (14.0-18.0); Immature Granulocytes % (auto) 0.8 %; Lymphocytes # (auto) 0.66 K/uL (1.20-3.40); Mean Corpuscular Hemoglobin 26.6 pg (25.0-34.0); Mean Corpuscular Hgb Conc 31.1 g/dL (32.0-36.0); Mean Corpuscular Volume 85.8 fL (80.0-100.0); Mean Platelet Volume 10.9 fL (9.4-12.4); Monocytes % (auto) 6.1 %; Neutrophils # (auto) 11.48 K/uL (1.40-6.50); Neutrophils % (auto) 87.6 %; Platelet Count 183 K/uL (130-400); RDW Coefficient of Variation 17.8 % (11.5-14.5); RDW Standard Deviation 55.3 fL (36.4-46.3); Red Blood Count 4.43 M/uL (4.70-6.10)
[2023-12-22 16:00] LABS: Alanine Aminotransferase 18 U/L (7-52); Albumin Globulin Ratio 1.2 (0.9-2); Albumin Level 3.7 gm/dl (3.4-5.0); Alkaline Phosphatase 51 U/L (34-104); Anion Gap 9 (3-11); Aspartate Aminotransferase 22 U/L (13-39); BUN Creatinine Ratio 14.6 (10-20); Blood Urea Nitrogen 47 mg/dl (6-23); Calcium 9.5 mg/dl (8.6-10.3); Carbon Dioxide 30 mmol/L (21-32); Chloride 97 mmol/L (98-107); Est GFR (African American) 19.8 ml/min; Est GFR (Non-African American) 17.1 ml/min; Glucose 156 mg/dl (70-99(Fasting)); Magnesium 2.2 mg/dl (1.7-2.4); Potassium 3.8 mmol/L (3.5-5.1); Sodium 136 mmol/L (136-145); Total Protein 6.7 gm/dl (6.0-8.3)
[2023-12-22 16:06] LABS: Troponin I High Sensitivity 34.8 pg/ml (0-20)
[2023-12-22 16:12] LABS: INR 1.3 (0.9-1.1); Partial Thromboplastin Ratio 1.2; Partial Thromboplastin Time 33 Seconds (21-31)
--- NOTE | 2023-12-22 16:31 | XRay Report ---
TWO VIEW CHEST CLINICAL HISTORY: Cough and dyspnea. FINDINGS: AP and lateral chest radiographs are compared to study dated 12/06/2023. The patient is statu s post midline sternotomy and cardiac valve surgery. The heart is markedly enlarged noting atheroscle rotic calcification of the thoracic area. There is pulmonary vascular congestion with mild interstiti al edema. Scarring/atelectasis is seen at the lung bases. No large pleural effusion or pneumothorax i s identified. The skeletal structures are osteopenic. The bony thorax appears intact. Cholecystectomy clips are noted in the upper abdomen. IMPRESSION: Cardiomegaly with evidence of congestive failure and mild pulmonary edema. ACT 112: Negative or not required by law. Electronically signed by: Vargas Perales M.D. 12/22/2023 4:29 PM
[2023-12-22 16:32] LABS: Adenovirus PCR Not Detected (NotDetected); Bordetella parapertussis PCR Not Detected (NotDetected); Bordetella pertussis PCR Not Detected (NotDetected); Chlamydia pneumoniae PCR Not Detected (NotDetected); Coronavirus 229E PCR Not Detected (NotDetected); Coronavirus CoV-2 (COVID19)PCR Not Detected (NotDetected); Coronavirus HKU1 PCR Not Detected (NotDetected); Coronavirus NL63 PCR Not Detected (NotDetected); Coronavirus OC43PCR Not Detected (NotDetected); Human Metapneumovirus PCR Not Detected (NotDetected); Influenza A PCR Not Detected (NotDetected); Influenza B PCR Not Detected (NotDetected); Mycoplasma pneumoniae PCR Not Detected (NotDetected); Parainfluenza Virus 1 PCR Not Detected (NotDetected); Parainfluenza Virus 2 PCR Not Detected (NotDetected); Parainfluenza Virus 3 PCR Not Detected (NotDetected); Parainfluenza Virus 4 PCR Not Detected (NotDetected); Respiratory Syncytial VirusPCR Not Detected (NotDetected); Rhinovirus/Enterovirus PCR Not Detected (NotDetected)
--- NOTE | 2023-12-22 18:21 | Emergency Department Note ---
Impression & Plan Acute exacerbation of CHF (congestive heart failure), Elevated brain natriuretic peptide (BNP) level, Elevated troponin, Pulmonary edema, CKD (chronic kidney disease) ED Provider Note HISTORY OF PRESENT ILLNESS: Patient is an 83-year-old male presenting with shortness of breath. Patient reports for the last 2 to 3 days he been having significant shortness of breath with minimal exertion. Reports he is only able to take about 4 steps with his 3 L nasal cannula before he becomes very winded and has to sit down. He reports he also gets chest pain with walking. He states that when he sits down and rests his chest pain and shortness of breath improved. Reports chronic lower extremity edema. He has been taking his diuretic at home as instructed. He was recently admitted to the hospital for diastolic heart failure exacerbation. He reports he has been making good urine with his diuretic. He denies any abdominal pain, nausea or vomiting. He has a history of atrial fibrillation and is on Xarelto. He called his doctor today who referred him to the emergency department given his symptoms. On arrival, the patient reports he just feels very short of breath. Denies any fevers or cough. Denies any recent sick contact exposures. ROS: as above PHYSICAL EXAM: Constitutional: Patient appears in no acute distress. HENT: Head: Normocephalic and atraumatic. Eyes: EOMI, PERRL Mouth/Throat: Mucous membranes moist. Neck: Trachea midline. Neck supple. Cardiovascular: Tachycardic with irregularly irregular rhythm. No murmurs, rubs or gallops. Intact distal pulses. Pulmonary/Chest: Conversationally dyspneic. Coarse breath sounds bilaterally. On 3 L nasal cannula. Abdominal: Abdomen soft, no tenderness, rebound or guarding. Musculoskeletal: No edema, tenderness or deformity noted. Skin: Warm and dry. No rash, erythema, pallor or cyanosis Psychiatric: Appropriate mood and affect for situation. Neurological: Alert and keenly responsive. CN II-XII grossly intact, moving all extremities equally and fully. MDM: - Vitals signs showed tachycardia and hypoxia. - History obtained via patient. History as above. - Chronic conditions affecting care: diastolic CHF; HLD; gout; AVR; chronic venous insufficiency; FIFI; renal cell carcinoma (s/p left nephrectomy); CKD; DM- 2; Afib (on Xarelto); HTN - Differential diagnoses include, but are not limited to: Congestive heart failure; acute coronary syndrome; COPD/asthma exacerbation; pulmonary edema; pulmonary embolism; pneumonia; pneumothorax; viral syndrome - Order placed for continuous cardiac monitoring. At this time, monitor showed rate of 101 bpm with irregular rhythm, per my interpretation. - External medical records reviewed. Discharge summary dated 12/13/2023 was reviewed. Patient was admitted that time for acute on chronic diastolic heart failure. He was given Bumex 3 mg IV twice daily during his admission. - EKG interpreted by myself showed atrial fibrillation. Rate 97 bpm. QT 358. No acute ischemic changes. - Laboratory workup interpreted by myself showed leukocytosis (WBC 13.10); elevated INR (1.3); CKD (Cr 3.22); elevated troponin (34.8); elevated BNP (1328) - Repeat troponin elevated but stable at 36.1 - Viral respiratory panel negative - CXR showed mild pulmonary edema, per my interpretation. Radiology notes evidence of congestive failure with mild pulmonary edema and cardiomegaly. - Patient given 2 mg IV bumex in ER. - Discussion was had with onsite case manager about patient's case and need for admission - Hospitalist, Dr. Dallas, consulted for admission - [facility] ASSESSMENT AND PLAN: Diagnosis: Acute exacerbation of CHF; elevated BNP; elevated troponin; CKD; pulmonary edema Plan: Admit Past Med/Surg History Problem List (Updated 12/22/23 @ 19:22 by Maria Fernanda Amato MD) CKD (chronic kidney disease) (Acute) Pulmonary edema (Acute) Elevated troponin (Acute) Elevated brain natriuretic peptide (BNP) level (Acute) Acute exacerbation of CHF (congestive heart failure) (Acute) Iron deficiency Traumatic open wound of left lower leg with delayed healing (Acute) Lower extremity edema Decreased calculated glomerular filtration rate (GFR) Secondary hyperparathyroidism History of aortic valve disease s/p AVR (2006) History of renal cell carcinoma Hypokalemia Chronic venous insufficiency (Chronic) Traumatic open wound of right lower leg (Acute) Atrial fibrillation with rapid ventricular response (Acute) Wound of right leg Class 3 severe obesity due to excess calories with body mass index (BMI) of 40.0 to 44.9 in adult Gynecomastia, male Family history of breast cancer gene mutation in first degree relative Hx of gynecomastia Left breast lump Nocturnal hypoxemia Complex sleep apnea syndrome Chronic kidney disease, stage 4 (severe) (Chronic) Diabetes mellitus Atrial fibrillation (Chronic) Hypertension (Chronic) Obstructive sleep apnea (Chronic) BIPAP Shortness of breath Acute diastolic (congestive) heart failure Hypermagnesemia Iron deficiency anemia Arm pain Hand numbness Foraminal stenosis of cervical region Vitamin D deficiency Anxiety (Acute) Venous insufficiency (chronic) (peripheral) Morbid obesity with BMI of 40.0-44.9, adult H/O aortic valve replacement Gout Microcytic anemia Chronic low back pain with right-sided sciatica B12 deficiency Chronic diastolic CHF (congestive heart failure) (Chronic) Hyperlipidemia (Chronic) Medical History Aspiration into respiratory tract Acute kidney injury superimposed on CKD Morbid obesity History of anxiety Hx of gout Hx of rotator cuff tear Difficulty with raising arms without extreme pain, currently in PT Hx of osteoarthritis Hx of impacted cerumen History of COVID-19 01/2021 > "mild" cold symptoms, resolved Prediabetes Kidney stones Hx x7 Renal cell adenocarcinoma s/p nephrectomy Chronic kidney disease, stage III (moderate) CKD (chronic kidney disease), stage III Surgical History Hx of cardiac catheterization 11/2020 > no stents History of total bilateral knee replacement History of esophagogastroduodenoscopy (EGD) Hx of colonoscopy Hx of tonsillectomy Hx of cystoscopy w/stone basketing History of left nephrectomy History of spinal surgery Aortic valve replaced bioprosthesis, 2006 History of gastric bypass History of cholecystectomy Family History Mother Breast cancer Lung disease Grandmother (Maternal) Breast cancer Aunt Breast cancer Sister Breast cancer Father Myocardial infarction Arthritis Denies family history of Ovarian cancer Prostate cancer Colorectal cancer Social History Smoking Status: Never smoker Second Hand Exposure: Yes; Do You Dip or Chew Tobacco: No; Hx Alcohol Use: No Hx Substance Use: No Preferred Language: Albanian Communication Ability: Effective Visual Impairment: No Limitations Hearing Ability: Normal Quality Assurance Assistant Required: No Beliefs That Will Affect Care: None marital status: Current Living Situation: Spouse Current Living Situation Comment: Lives w/ , son lives in basement current occupational status: retired 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[employer] Feels Safe at Home: Yes Childhood Exposure to Second-Hand Smoke: Yes Diet: regular caffeine: Yes Dental Care, Regularly: Yes Physical Activity Frequency: Does not Exercise Physical Activity Frequency Comment: Physical activity limited due to medical conditions Seatbelt Use: always Sunscreen Use: No Do you think of yourself as: straight/heterosexual Gender Identity: Male Assistive Devices: Cane, Oxygen - Continuous and Walker Allergies Allergies Allergy/AdvReac Type Severity Reaction Status Date / Time iron [From Venofer] AdvReac Mild Vomiting Verified 12/22/23 18:35 Iodinated Contrast Media AdvReac Unknown PT ONLY Verified 12/22/23 18:35 [Iodinated Contrast- Oral HAS 1 and IV Dye] KIDNEY, CONTRAINDICATED. Home Meds Home Medications Medication Instructions Recorded Confirmed amoxicillin 500 mg tablet 2,000 mg PO DIRECTED PRN 1 HOUR 11/16/18 12/22/23 PRIOR TO DENTAL PROCEDURES docusate sodium 100 mg capsule 100 mg PO QAM PRN Constipation 05/03/20 12/22/23 cholecalciferol (vitamin D3) 50 50 mcg PO DAILY 07/10/22 12/22/23 mcg (2,000 unit) capsule (Vitamin D3) magnesium 250 mg tablet 250 mg PO HS 07/10/22 12/22/23 bumetanide 2 mg tablet 3 mg PO QAM 12/22/23 12/22/23 metoprolol succinate 200 mg 100 mg PO HS 12/22/23 12/22/23 tablet,extended release 24 hr mupirocin 2 % topical ointment 1 applic topical TID PRN irritation 12/22/23 12/22/23 tamoxifen 20 mg tablet 20 mg PO QAM 12/22/23 12/22/23 Previous Rx's Medication Instructions Recorded cyanocobalamin (vitamin B-12) 1,000 mcg IM Q90D #30 mL 09/23/22 1,000 mcg/mL injection solution metolazone 5 mg tablet 5 mg PO DAILY PRN weight gain #30 10/23/22 tabs allopurinol 100 mg tablet 100 mg PO QAM #90 tabs 01/20/23 rivaroxaban 15 mg tablet 15 mg PO HS #90 tabs 02/09/23 eplerenone 25 mg tablet 25 mg PO QAM #90 tabs 05/04/23 Portable Oxygen #1 ea 05/25/23 calcitriol 0.25 mcg capsule 0.5 mcg (2 x 0.25 mcg) PO QAM #180 08/11/23 caps potassium chloride 10 mEq 10 meq PO BID #180 caps 09/29/23 capsule,extended release cyclobenzaprine 5 mg tablet 5 mg PO BID PRN muscle 11/20/23 pain/stiffness #60 tabs tramadol 50 mg tablet 50 mg PO BID PRN Pain #60 tabs 11/20/23 Results & Data (ED) Vital Signs Vital Signs - 24 hr 12/22/23 14:21 12/22/23 17:00 12/22/23 19:00 Temperature 36.8 C Temperature Source Temporal Artery Scan Pulse Rate 72 93 H Pulse Rate [Apical] 98 H Pulse Rate from SpO2 Sensor Respiratory Rate 24 17 22 Respiratory Effort / Characteristics Non-Labored Spontaneous Respiratory Depth Normal Blood Pressure 105/71 Blood Pressure [Left Arm] 94/78 L Blood Pressure Mean 82 Blood Pressure Mean [Left Arm] 83 Blood Pressure Position [Left Arm] Semi-fowlers Pulse Oximetry 93 97 98 Oxygen Delivery Method Nasal Cannula Room Air Nasal Cannula Nasal Cannula Oxygen Flow Rate 3 3 3 Sepsis Recent Fever Within 48 Hours No Sepsis New/Unexplained Change in Mental Status No Sepsis Action Taken by Nursing No Action Required 12/22/23 19:00 Temperature Temperature Source Pulse Rate 101 H Pulse Rate [Apical] Pulse Rate from SpO2 Sensor 110 H Respiratory Rate 22 Respiratory Effort / Characteristics Respiratory Depth Blood Pressure 103/63 Blood Pressure [Left Arm] Blood Pressure Mean 76 Blood Pressure Mean [Left Arm] Blood Pressure Position [Left Arm] Pulse Oximetry 98 Oxygen Delivery Method Nasal Cannula Oxygen Flow Rate 3 Sepsis Recent Fever Within 48 Hours Sepsis New/Unexplained Change in Mental Status Sepsis Action Taken by Nursing Laboratory Data 12/22/23 15:22 12/22/23 15:22 Lab Results 12/22/23 12/22/23 12/22/23 Range/Units 15:18 15:22 17:32 WBC 13.10 H (4.8-10.8) K/ul RBC 4.43 L (4.70-6.10) M/uL Hgb 11.8 L (14.0-18.0) g/dl Hct 38.0 L (42.0-52.0) % MCV 85.8 (80.0-100.0) fL MCH 26.6 (25.0-34.0) pg MCHC 31.1 L (32.0-36.0) g/dL RDW Std Deviation 55.3 H (36.4-46.3) fL RDW Coeff of Sarah 17.8 H (11.5-14.5) % Plt Count 183 (130-400) K/uL MPV 10.9 (9.4-12.4) fL Immature Gran % (Auto) 0.8 % Neut % (Auto) 87.6 % Lymph % (Auto) 5.0 % Kaufman % (Auto) 6.1 % Eos % (Auto) 0.1 % Baso % (Auto) 0.4 % Neut # (Auto) 11.48 H (1.40-6.50) K/uL Lymph # (Auto) 0.66 L (1.20-3.40) K/uL Kaufman # (Auto) 0.80 H (0.11-0.59) K/uL Eos # (Auto) 0.01 (0.00-0.50) K/uL Baso # (Auto) 0.05 (0.00-0.20) K/uL Immature Gran # (Auto) 0.10 (0.01-0.20) K/uL PT 14.0 H (9.0-12.0) Seconds INR 1.3 H (0.9-1.1) APTT 33 H (21-31) Seconds PTT Ratio 1.2 Sodium 136 (136-145) mmol/L Potassium 3.8 (3.5-5.1) mmol/L Chloride 97 L (98-107) mmol/L Carbon Dioxide 30 (21-32) mmol/L Anion Gap 9 (3-11) BUN 47 H (6-23) mg/dl Creatinine 3.22 H (0.6-1.4) mg/dl Est Cr Clr Drug Dosing Not Reportable Est GFR ( Amer) 19.8 ml/min Est GFR (Non-Af Amer) 17.1 ml/min BUN/Creatinine Ratio 14.6 (10-20) Glucose 156 H (70-99(Fasting)) mg/dl Calcium 9.5 (8.6-10.3) mg/dl Magnesium 2.2 (1.7-2.4) mg/dl Total Bilirubin 2.0 H (0.2-1.0) mg/dl AST 22 (13-39) U/L ALT 18 (7-52) U/L Alkaline Phosphatase 51 (34-104) U/L Troponin I High Sens 34.8 H 36.1 H (0-20) pg/ml B-Natriuretic Peptide 1328 H (0-100) pg/ml Total Protein 6.7 (6.0-8.3) gm/dl Albumin 3.7 (3.4-5.0) gm/dl Globulin 3.0 (2.5-4.0) gm/dl Albumin/Globulin Ratio 1.2 (0.9-2) Adenovirus (PCR) Not Detected (NotDetected) B. pertussis DNA (PCR) Not Detected (NotDetected) B.parapertussis DNA PCR Not Detected (NotDetected) C. pneumoniae DNA (PCR) Not Detected (NotDetected) Coronavirus OC43 (PCR) Not Detected (NotDetected) Coronavirus HKU1 (PCR) Not Detected (NotDetected) Coronavirus 229E (PCR) Not Detected (NotDetected) SARS-CoV-2 (PCR) Not Detected (NotDetected) Coronavirus NL63 (PCR) Not Detected (NotDetected) Human Metapneumovir PCR Not Detected (NotDetected) Influenza Type A (PCR) Not Detected (NotDetected) Influenza Type B (PCR) Not Detected (NotDetected) M. pneumoniae (PCR) Not Detected (NotDetected) Parainfluenza 1 (PCR) Not Detected (NotDetected) Parainfluenza 2 (PCR) Not Detected (NotDetected) Parainfluenza 3 (PCR) Not Detected (NotDetected) Parainfluenza 4 (PCR) Not Detected (NotDetected) RSV (PCR) Not Detected (NotDetected) Entero/Rhino (PCR) Not Detected (NotDetected) Administered Medications Discontinued Medications Bumetanide 2 mg/ Syringe 8 mls @ 4 mls/min IV ONE ONE Stop: 12/22/23 18:22 Last Admin: 12/22/23 18:46 Dose: 4 mls/min Documented By: [facility] Imaging Data Radiologist's Impression: Chest X-Ray 12/22/23 14:23 TWO VIEW CHEST CLINICAL HISTORY: Cough and dyspnea. FINDINGS: AP and lateral chest radiographs are compared to study dated 12/06/2023. The patient is status post midline sternotomy and cardiac valve surgery. The heart is markedly enlarged noting atherosclerotic calcification of the thoracic area. There is pulmonary vascular congestion with mild interstitial edema. Scarring/atelectasis is seen at the lung bases. No large pleural effusion or pneumothorax is identified. The skeletal structures are osteopenic. The bony thorax appears intact. Cholecystectomy clips are noted in the upper abdomen. IMPRESSION: Cardiomegaly with evidence of congestive failure and mild pulmonary edema. ACT 112: Negative or not required by law. Electronically signed by: Vargas Perales M.D. 12/22/2023 4:29 PM Discharge Plan Visit Data Chief Complaint: Referred by Doctor Stated Complaint: CARDIAC DOCTOR WANTS HIM IN THE HOSPITAL ED Provider: Maria Fernanda Amato Discharge Problem: Acute exacerbation of CHF (congestive heart failure), Elevated brain natriuretic peptide (BNP) level, Elevated troponin, Pulmonary edema, CKD (chronic kidney disease) Forms Stand Alone Forms: [facility] [employer] Prescriptions Prescriptions: No Action cyanocobalamin (vitamin B-12) 1,000 mcg/mL solution 1,000 mcg IM Q90D Qty: 30 0RF metolazone 5 mg tablet 5 mg PO DAILY PRN (Reason: weight gain) Qty: 30 5RF rivaroxaban 15 mg tablet 15 mg PO HS Qty: 90 3RF eplerenone 25 mg tablet 25 mg PO QAM Qty: 90 3RF calcitriol 0.25 mcg capsule 0.5 mcg PO QAM Qty: 180 3RF potassium chloride 10 mEq capsule, extended release 10 meq PO BID Qty: 180 1RF cyclobenzaprine 5 mg tablet 5 mg PO BID PRN (Reason: muscle pain/stiffness) Qty: 60 3RF tramadol 50 mg tablet 50 mg PO BID PRN (Reason: Pain) Qty: 60 0RF allopurinol 100 mg tablet 100 mg PO QAM Qty: 90 3RF amoxicillin 500 mg tablet 2,000 mg PO DIRECTED PRN (Reason: 1 HOUR PRIOR TO DENTAL PROCEDURES) Patient Comments: 2,000 mg PO 1 hour prior to dental procedure.; Rx Instructions: TAKE 4 CAPSULES BY MOUTH 1 HOUR PRIOR TO DENTAL WORK (DME) Portable Oxygen Misc See Rx Instructions .Route Qty: 1 0RF Rx Instructions: As directed docusate sodium 100 mg Capsule 100 mg PO QAM PRN (Reason: Constipation) magnesium 250 mg Tablet 250 mg PO HS cholecalciferol (vitamin D3) [Vitamin D3] 50 mcg (2,000 unit) Capsule 50 mcg PO DAILY metoprolol succinate 200 mg tablet extended release 24 hr 100 mg PO HS bumetanide 2 mg tablet 3 mg PO QAM mupirocin 2 % ointment 1 applic topical TID PRN (Reason: irritation) tamoxifen 20 mg tablet 20 mg PO QAM Referrals Referrals: Zackery Cochran, [Primary Care Provider] -
[2023-12-22] MEDS: BUMETANIDE 2 MG in SYRINGE 0 ML IV ONE (18:46)
--- NOTE | 2023-12-22 19:28 | History & Physical Report ---
Date of Service December 22, 2023 Assessment & Plan (1) Acute exacerbation of CHF (congestive heart failure): Plan: Recently hospitalized for acute on chronic HFpEF. Last ECHO stable in 09/20. Did well with IV Bumex 3 mg BID. Net neg 9L, with significant weight loss and improved SOB. Discharge weight 107 kg. Home NC - 3L. Progressive SOB prompting ED eval. Admitted for CHF exacerbation. Given 2 mg IV in the ED. BNP 1328. CXR with signs of congestion, no consolidation. Continue aggressive diuresis as BP tolerates - 2 mg IV BID (hold SBP < 90) Daily weights, strict Is and Os monitor electrolytes and replete as indicated (2) Atrial fibrillation with rapid ventricular response: Plan: Permanent a fib. On metoprolol 100 mg for rate control. On Xarelto for anticoagulation. Metop was decreased and dilt was stopped during last admission for soft BPs. Goal HR < 110s, PCU/tele as patient may need IV meds for rate control continue PO metop, hold for SBP < 90 (3) Acute on chronic kidney failure: Plan: Likely in the setting of fluid overload. Ideally will improve with diuresis. Did consult nephrology. Baseline ~ 3.0. Did not restart home eplerenone as BPs on the soft side, would defer to day team/nephrology. Nephrology consult - appreciate recs (4) Leukocytosis: Plan: WBC elevated at 13.10. No fevers or hypotension. CXR without consolidation. UA pending. More likely to be fluid overload with reactive leukocytosis. Will continue to monitor. Low threshold to initiate abx (5) Elevated troponin: Plan: Likely in setting of acute CHF exacerbation. No CP on my interview. Will trend to peak Plan Code status: full DVT ppx: Xarelto FENGI: heart healthy, fluid restriction 1800, low sodium Dispo: PCU/tele History of Present Illness Chief Complaint: SOB Primary Care Provider: Zackery Cochran, DO 83 y/o with a PMHx of diastolic HFpREF, CKD GFR < 20, a fib on Xarelto, and gout here for progressive SOB. Patient was hospitalized earlier this month for similar symptoms. Dry weight 107 kgs. Discharged on 3 mg Bumex daily, eplerenone, and PRN metolazone. 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 Patient with progressive SOB. On 3L NC at home. Saw Dr. Ramirez in HF clinic today who recommended ED evaluation. Patient denies any CP, fevers, chill, abdominal symptoms, urinary symptoms, or blood in the urine/stool, nausea, or vomiting. Allergies Allergy/AdvReac Type Severity Reaction Status Date / Time iron [From Venofer] AdvReac Mild Vomiting Verified 12/22/23 18:35 Iodinated Contrast Media AdvReac Unknown PT ONLY Verified 12/22/23 18:35 [Iodinated Contrast- Oral HAS 1 and IV Dye] KIDNEY, CONTRAINDICATED. Home Medications Medication Instructions Recorded Confirmed Type amoxicillin 500 mg tablet 2,000 mg PO DIRECTED PRN 1 HOUR 11/16/18 12/22/23 History PRIOR TO DENTAL PROCEDURES docusate sodium 100 mg capsule 100 mg PO QAM PRN Constipation 05/03/20 12/22/23 History cholecalciferol (vitamin D3) 50 50 mcg PO DAILY 07/10/22 12/22/23 History mcg (2,000 unit) capsule (Vitamin D3) magnesium 250 mg tablet 250 mg PO HS 07/10/22 12/22/23 History cyanocobalamin (vitamin B-12) 1,000 mcg IM Q90D #30 mL 09/23/22 12/22/23 Rx 1,000 mcg/mL injection solution metolazone 5 mg tablet 5 mg PO DAILY PRN weight gain #30 10/23/22 12/22/23 Rx tabs allopurinol 100 mg tablet 100 mg PO QAM #90 tabs 01/20/23 12/22/23 Rx rivaroxaban 15 mg tablet 15 mg PO HS #90 tabs 02/09/23 12/22/23 Rx eplerenone 25 mg tablet 25 mg PO QAM #90 tabs 05/04/23 12/22/23 Rx Portable Oxygen #1 ea 05/25/23 12/22/23 Rx calcitriol 0.25 mcg capsule 0.5 mcg (2 x 0.25 mcg) PO QAM #180 08/11/23 12/22/23 Rx caps potassium chloride 10 mEq 10 meq PO BID #180 caps 09/29/23 12/22/23 Rx capsule,extended release cyclobenzaprine 5 mg tablet 5 mg PO BID PRN muscle 11/20/23 12/22/23 Rx pain/stiffness #60 tabs tramadol 50 mg tablet 50 mg PO BID PRN Pain #60 tabs 11/20/23 12/22/23 Rx bumetanide 2 mg tablet 3 mg PO QAM 12/22/23 12/22/23 History metoprolol succinate 200 mg 100 mg PO HS 12/22/23 12/22/23 History tablet,extended release 24 hr mupirocin 2 % topical ointment 1 applic topical TID PRN irritation 12/22/23 12/22/23 History tamoxifen 20 mg tablet 20 mg PO QAM 12/22/23 12/22/23 History Past Med/Surg History Problem List (Updated 12/22/23 @ 19:32 by Cristina Huggins MD) Acute on chronic kidney failure CKD (chronic kidney disease) (Acute) Pulmonary edema (Acute) Elevated troponin (Acute) Elevated brain natriuretic peptide (BNP) level (Acute) Acute exacerbation of CHF (congestive heart failure) (Acute) Iron deficiency Traumatic open wound of left lower leg with delayed healing (Acute) Lower extremity edema Decreased calculated glomerular filtration rate (GFR) Secondary hyperparathyroidism History of aortic valve disease s/p AVR (2006) History of renal cell carcinoma Hypokalemia Chronic venous insufficiency (Chronic) Traumatic open wound of right lower leg (Acute) Atrial fibrillation with rapid ventricular response (Acute) Wound of right leg Class 3 severe obesity due to excess calories with body mass index (BMI) of 40.0 to 44.9 in adult Gynecomastia, male Family history of breast cancer gene mutation in first degree relative Hx of gynecomastia Left breast lump Nocturnal hypoxemia Complex sleep apnea syndrome Chronic kidney disease, stage 4 (severe) (Chronic) Diabetes mellitus Atrial fibrillation (Chronic) Hypertension (Chronic) Obstructive sleep apnea (Chronic) BIPAP Shortness of breath Acute diastolic (congestive) heart failure Hypermagnesemia Iron deficiency anemia Arm pain Hand numbness Foraminal stenosis of cervical region Vitamin D deficiency Anxiety (Acute) Venous insufficiency (chronic) (peripheral) Morbid obesity with BMI of 40.0-44.9, adult H/O aortic valve replacement Gout Microcytic anemia Chronic low back pain with right-sided sciatica B12 deficiency Chronic diastolic CHF (congestive heart failure) (Chronic) Hyperlipidemia (Chronic) Medical History Aspiration into respiratory tract Acute kidney injury superimposed on CKD Morbid obesity History of anxiety Hx of gout Hx of rotator cuff tear Difficulty with raising arms without extreme pain, currently in PT Hx of osteoarthritis Hx of impacted cerumen History of COVID-19 01/2021 > "mild" cold symptoms, resolved Prediabetes Kidney stones Hx x7 Renal cell adenocarcinoma s/p nephrectomy Chronic kidney disease, stage III (moderate) CKD (chronic kidney disease), stage III Surgical History Hx of cardiac catheterization 11/2020 > no stents History of total bilateral knee replacement History of esophagogastroduodenoscopy (EGD) Hx of colonoscopy Hx of tonsillectomy Hx of cystoscopy w/stone basketing History of left nephrectomy History of spinal surgery Aortic valve replaced bioprosthesis, 2006 History of gastric bypass History of cholecystectomy Family History Mother Breast cancer Lung disease Grandmother (Maternal) Breast cancer Aunt Breast cancer Sister Breast cancer Father Myocardial infarction Arthritis Denies family history of Ovarian cancer Prostate cancer Colorectal cancer Social History Smoking Status: Never smoker Second Hand Exposure: Yes; Do You Dip or Chew Tobacco: No; Hx Alcohol Use: No Hx Substance Use: No Preferred Language: Swedish Communication Ability: Effective Visual Impairment: No Limitations Hearing Ability: Normal Basting Marker Required: No Beliefs That Will Affect Care: None marital status: Current Living Situation: Spouse Current Living Situation Comment: Lives w/ , son lives in basement current occupational status: retired 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[employer] Feels Safe at Home: Yes Childhood Exposure to Second-Hand Smoke: Yes Diet: regular caffeine: Yes Dental Care, Regularly: Yes Physical Activity Frequency: Does not Exercise Physical Activity Frequency Comment: Physical activity limited due to medical conditions Seatbelt Use: always Sunscreen Use: No Do you think of yourself as: straight/heterosexual Gender Identity: Male Assistive Devices: Cane, Oxygen - Continuous and Walker Physical Exam 2 Physical Exam: Gen: well appearing patient in NAD HEENT: AT NC MMM Resp: Breath sounds decreased diffusely, crackles in the bilateral mid to lower lobes, no increased work of breathing CV: tachycardic, pronounced murmur heard in all heart kuhn, loudest left 4th intercostal space, clinically well perfused Abd: soft, non-distended MSK: no obvious deformities Skin: no rashes or bruising Neuro: alert and oriented Psych: appropriate mood and affect Results & Data Results & Data Vital Signs (Past 12 Hours) Vital Signs Temp Pulse Pulse Resp BP BP Pulse Ox 12/22/23 19:00 101 H 22 103/63 98 12/22/23 19:00 93 H 22 98 12/22/23 17:00 98 H 17 94/78 L 97 12/22/23 14:21 36.8 C 72 24 105/71 93 O2 Del Method O2 Flow Rate 12/22/23 19:00 Nasal Cannula 3 12/22/23 19:00 Nasal Cannula 3 12/22/23 17:00 Room Air, Nasal Cannula 3 12/22/23 14:21 Nasal Cannula 3 Laboratory Results 12/22/23 15:22 12/22/23 15:22 Diagnostic Findings Chest X-Ray 12/22/23 14:23 TWO VIEW CHEST CLINICAL HISTORY: Cough and dyspnea. FINDINGS: AP and lateral chest radiographs are compared to study dated 12/06/2023. The patient is status post midline sternotomy and cardiac valve surgery. The heart is markedly enlarged noting atherosclerotic calcification of the thoracic area. There is pulmonary vascular congestion with mild interstitial edema. Scarring/atelectasis is seen at the lung bases. No large pleural effusion or pneumothorax is identified. The skeletal structures are osteopenic. The bony thorax appears intact. Cholecystectomy clips are noted in the upper abdomen. IMPRESSION: Cardiomegaly with evidence of congestive failure and mild pulmonary edema. Supervising Physician Co-Signing Physician Notes Attending addendum: I have physically seen this patient, have supervised the medical residents activities, and agree with the H&P unless as otherwise noted. Assessment and Plan: CHF exacerbation/atrial fibrillation The patient will be admitted to telemetry for serial cardiac enzymes, serial EKG's, cardiac rhythm monitoring and a 2-D echocardiogram with Dopplers. Most recent admission from 12/05-12/11/2023 for acute on chronic diastolic heart failure, with possible cardiorenal syndrome in setting of CKD stage IV. Treated with Bumex 3 mg IV twice daily. Status post Bumex 2 mg IV already given by the ED, if insufficient diuresis, will increase to 3 mg IV twice daily Follow daily weights Continue eplerenone, magnesium and potassium chloride Continue metoprolol and Xarelto Follow serial CBC with differential, BMP and magnesium levels Acute on chronic CKD stage IV- Possible cardiorenal syndrome as noted before Creatinine 3.22, based 3.05 Follow serially with diuresis Consult nephrology Resident Activity Tracking Resident Involvement: Resident Care Provided Care Provided: Adult [facility] Medicine
[2023-12-22 20:33] LABS: Appearance Urine Clear (Clear); Bacteria Urine Automated None Seen (None Seen); Bilirubin Urine Negative (Negative); Blood Urine Negative (Negative); Color Urine Yellow; Epithelial Cell Urine Auto 0-2 /hpf (0-2); Glucose Urine UA Negative (Negative); Ketones Urine Negative (Negative); Leukocyte Esterase Urine Negative (Negative); Nitrite Urine Negative (Negative); Protein Urine 1+ (Negative); RBC Urine Automated 0-2 /hpf (0-2); Specific Gravity Urine 1.011 (1.000-1.030); Urobilinogen Urine Negative (Negative); WBC Urine Automated 0-5 /hpf (0-5); pH Urine 5.5 (4.5-7.5)
--- NOTE | 2023-12-22 22:31 | Billing Data ---
Date of Service December 22, 2023 Coding Level of Care Code 58161 INT INP/OBS CARE
[2023-12-22] MEDS ORDERED: traMADol HCL 50 MG TABLET PO PRN (22:58)
[2023-12-22] MEDS ORDERED: MAGNESIUM HYDROXIDE SUSP 30 ML UDC PO PRN (22:58)
[2023-12-22] MEDS ORDERED: DOCUSATE SODIUM 100 MG CAP PO PRN (22:58)
[2023-12-22] MEDS ORDERED: POLYETHYLENE (MIRALAX) 17 GM PACK PO PRN (22:58)
[2023-12-22] MEDS ORDERED: ONDANSETRON INJ 2 MG/ML 2 ML VIAL IV PRN (22:58)
[2023-12-22] MEDS: METOPROLOL SUCC 50MG EXT REL TAB PO SCH (23:49)
[2023-12-22] MEDS: RIVAROXABAN 15 MG TAB PO SCH (23:49)
[2023-12-23 07:23] LABS: Hematocrit (blood only) 34.1 % (42.0-52.0); Hemoglobin 10.7 g/dl (14.0-18.0); Mean Corpuscular Hemoglobin 26.6 pg (25.0-34.0); Mean Corpuscular Hgb Conc 31.4 g/dL (32.0-36.0); Mean Corpuscular Volume 84.6 fL (80.0-100.0); Platelet Count 159 K/uL (130-400); RDW Coefficient of Variation 17.7 % (11.5-14.5); RDW Standard Deviation 55.1 fL (36.4-46.3); Red Blood Count 4.03 M/uL (4.70-6.10); White Blood Count 12.58 K/ul (4.8-10.8)
[2023-12-23 07:25] LABS: Albumin Globulin Ratio 1.2 (0.9-2); BUN Creatinine Ratio 16.3 (10-20); Bilirubin,Total 1.6 mg/dl (0.2-1.0); Calcium 8.8 mg/dl (8.6-10.3); Creatinine Clr Calc Pharmacy 23.8 ml/min; Est GFR (African American) 22.7 ml/min; Est GFR (Non-African American) 19.6 ml/min; Globulin 2.5 gm/dl (2.5-4.0); Potassium 3.5 mmol/L (3.5-5.1); Total Protein 5.5 gm/dl (6.0-8.3)
[2023-12-23] MEDS: allopurinoL 100 MG TAB PO SCH (08:53)
[2023-12-23] MEDS: CALCITRIOL 0.25 MCG CAPSULE PO SCH (08:54)
[2023-12-23] MEDS: POTASSIUM CHLORIDE 10 MEQ TABCR PO SCH (08:54)
[2023-12-23] MEDS: CHOLECALCIFEROL 25 MCG (1000 UNITS) TAB PO SCH (08:54)
[2023-12-23] MEDS: TAMOXIFEN CITRATE 10 MG TABLET PO SCH (08:54)
[2023-12-23] MEDS ORDERED: BUMETANIDE 2 MG in SYRINGE 0 ML IV SCH (09:00)
[2023-12-23] MEDS: BUMETANIDE 3 MG in SYRINGE 0 ML IV SCH (09:46)
[2023-12-23] MEDS: ALUMINUM/MAGNESIUM SUSP 30 ML UDC PO PRN (11:08)
--- NOTE | 2023-12-23 11:15 | Hospitalist Progress Note ---
Date of Service December 23, 2023 Assessment & Plan (1) Chest pain: Plan: Presented with atypical chest pain at rest that was sharp in nature and lasted 30 minutes, resolved with Maalox and IV Pepcid Serial troponin x 2 today lower than previous at 26 and 27. ECG with some ischemic changes but similar to prior EKGs He is on chronic anticoagulation so PE not likely Appreciate cardiology consultation Do not suspect acute coronary syndrome but rather likely secondary to acid reflux/GI issues Stat echo performed which shows preserved EF, moderate LVH, moderate to severe MR, moderately dilated RV with normal function, and moderate to severe pulmonary hypertension, well-seated and functioning prosthetic AV, no wall motion abnormalities Continue Maalox as needed (2) Acute exacerbation of CHF (congestive heart failure): Plan: Recently hospitalized for acute on chronic HFpEF and discharged 2 weeks ago. Discharge weight 107 kg. Home NC - 3L. Progressive SOB prompting ED eval. Admitted for CHF exacerbation. Chest x-ray with cardiomegaly and pulmonary edema, BNP elevated at 1328 Echo repeated here similar to previous as above with preserved EF Diuresing well but low blood pressures remain an issue after receiving 2 doses of IV Bumex-placed Bumex on hold for now- blood pressures are low at 70 systolic-Will give normal saline 250 mL x 1 this evening and hold off on further diuretics Hold home eplerenone with low blood pressures Renal function actually improved from previous with creatinine 2.8-follow BMP and appreciate nephrology consultation Continue Daily weights, strict Is and Os, fluid restriction monitor electrolytes and replete as indicated (3) Atrial fibrillation with rapid ventricular response: Plan: Permanent a fib. On metoprolol 100 mg for rate control. On Xarelto for anticoagulation. Metop was decreased and dilt was stopped during last admission for soft BPs. Goal HR < 110s, continue telemetry monitoring continue PO metop, hold for SBP < 90 (4) Hypotension: Plan: Has been an issue in the past. Metoprolol at a lower dose from previous at 100 and not likely able to give this evening due to low blood pressures Will give slight amount of fluid back with a gentle bolus Hold home eplerenone He is already off Entresto and spironolactone since last admission for worsening renal failure and hypotension Follow blood pressures He may need midodrine (5) Acute on chronic kidney failure: Plan: With acute kidney injury last admission on CKD stage IV-creatinine improved today from baseline 3.0. Creatinine today 2.88 With hypotension making diuresis difficult Holding eplerenone Diurese as able to with blood pressures being soft Nephrology consult - appreciate recs Follow BMP, follow urine output (6) Leukocytosis: Plan: WBC elevated at 13.10 on admission and down today to 12. Viral respiratory BioFire negative, had a low-grade temperature here but not a definite fever Chest x-ray without pneumonia No other evidence of infection anywhere Could be reactive to stress Follow CBC (7) Elevated troponin: Plan: Demand ischemia from acute CHF Troponin serially trended downward today, ECG with some ST depression in anterolateral leads not changed much from prior Appreciate cardiology consultation Echocardiogram without wall motion abnormalities Chest pain on 12/22 is atypical and not related to cardiac chest pain (8) Chronic anemia: Plan: Hemoglobin 10.7, received 2 doses of IV Venofer last admission which did make him nauseated and had vomiting May need erythropoietin at some point-defer to nephrology Follow CBC Plan Chronic pain-continue tramadol and Flexeril as needed Vitamin D deficiency-continue calcitriol and and vitamin D Gout-no acute issues, continue allopurinol which is renally dosed Code status: full DVT ppx: Xarelto Dispo: Continued stay on PCU/tele Admission and Anticipated Discharge Date Admission Date: December 22, 2023 Subjective Patient was seen in the morning as he was having about 30 minutes of chest pain that started on the right side and radiated down the substernal region. He had felt more sharp in nature and did not radiate to the jaw or upper shoulders or back or extremities. He did not have any associated shortness of breath or diaphoresis. It came on at rest. An EKG did show some increased ST depressions in the anterolateral leads from previous EKG yesterday, however similar to prior EKGs in the past. I discussed his care with cardiology on the phone and at the bedside. I gave him Maalox and IV Pepcid and the pain resolved within minutes of getting the Maalox. Later in the day, his blood pressures were in the 70s systolic but he was asymptomatic. Telemetry with atrial fibrillation, PVCs and rates in the 90s to low 100s Physical Exam Constitutional: WD/WN, vitals as above + obese Respiratory: normal respiratory effort; no cough Auscultation: + crackles ( Bibasilar); no rhonchi and no wheezes Cardiovascular: Rate/Rhythm: + tachycardic (Mild) and + irregularly irregular Extremities: + edema (Trace pitting edema legs bilaterally) Chest (Breasts): Additional Comments: No tenderness to palpation over anterior chest wall Gastrointestinal (Abdomen): normal bowel sounds, soft, nontender, no hepatosplenomegaly Psychiatric: A+Ox3, euthymic affect Results & Data Results & Data Vital Signs (Past 12 Hours) Vital Signs Temp Pulse Pulse Resp BP BP Pulse Ox 12/23/23 08:10 37.9 C H 99 H 20 81/55 L 100 12/23/23 03:33 80 22 98/55 L 97 12/22/23 23:31 36.9 C 108 H 20 96/70 L 98 12/22/23 23:29 101 H O2 Del Method O2 Flow Rate 12/23/23 08:10 Nasal Cannula 3 12/23/23 03:33 Nasal Cannula 3 12/22/23 23:31 Nasal Cannula 3 12/22/23 23:29 Laboratory Results CBC, BMP, LFTs, UA, troponin reviewed ECG Additional Comments: ECG with atrial fibrillation, mild tachycardia, ST depressions in anterior lateral leads PG Care Time/CCT Total # of Minutes Spent Total Time Spent with Patient: Total time spent is greater than 50% in coordination of care (as documented) at patient's floor/unit and/or counseling patient: Coding Level of Care Code 82280 SUB INP/OBS CARE 3/50MIN Diagnoses Chest pain R07.9 Acute exacerbation of CHF (congestive heart failure) I50.9 Atrial fibrillation with rapid ventricular response I48.91 Hypotension I95.9 Acute on chronic kidney failure N17.9; N18.9 Leukocytosis D72.829 Elevated troponin R79.89 Chronic anemia D64.9
--- NOTE | 2023-12-23 11:22 | Nephrology Consultation ---
Date of Consultation December 23, 2023 Assessment & Plan (1) Chronic renal insufficiency, stage IV (severe): (2) Acute exacerbation of CHF (congestive heart failure): (3) Chronic anemia: (4) Atrial fibrillation: (5) Hypotension: Plan 83-year-old gentleman with stage IV CKD and congestive heart failure with diastolic dysfunction and preserved EF, admitted to the hospital with diuretic resistant volume overload, shortness of breath and generalized weakness. Kidney function staying relatively stable, baseline creatinine 3.0 mg/dl with history of solitary right kidney and cardiorenal syndrome. Estimated dry weight 107 kg on admission weight was 1.4 kg which improved to 110 kg this morning. Seems like he is having decent response to diuretics, on Bumex 3 mg IV twice a day although urine output unmeasured. Blood pressure remained quite low, on metoprolol 100 mg daily because of tachycardia with A-fib and RVR. -- Continue on current dose of Bumex 3 mg IV twice a day, strict intake and output measurement to help guide further diuretic dose. Would recommend con tinued diuretic management and her heart failure team. Aim for net negative, may need to consider starting back on metolazone if stays positive however, weight seems already down. -- Kidney function staying relatively stable, electrolyte acceptable, do not see any pressing indication for dialysis at this time. --Hemoglobin low but stable, history of iron deficiency, previously received IV iron. Continue to monitor for now, if hemoglobin less than 10, we can consider erythropoietin stimulating agent. -- Continue calcitriol --Agree with holding eplerenone now as blood pressure remains quite low. -- Dose medications for eGFR less than 15 Thank you for allowing me to participate in your patient's care. It was a pleasure to see Mr. Velasquez History of Present Illness Reason for Consultation: stage 4/5 CKD, CHF exacerbation. Attending Physician: Shelia Frank MD History of Present Illness Mr. Kyler Antoine is an 83 year-old male with PMH significant for stage 4 CKD, solitary right kidney s/p L nephrectomy for RCC, HFpEF, pulmonary hypertension, A fib admitted to the hospital with diuretic resistant volume overload and shortness of breath. Nephrology consult requested for management of advanced CKD volume overload. EMR records were reviewed in detail during patient's visit. Ed was admitted yesterday after he was noted to be volume overloaded with shortness of breath, generalized weakness and overall feeling poorly while he was at heart failure clinic visit. He was recently admitted to the hospital from 12/06/2023 to 12/11/2023 with similar symptoms. During that hospitalization he was noted to have mild elevation in creatinine from his baseline, creatinine was 3.3 which improved to 3.1 on discharge, close to his baseline. He was treated with IV Bumex 3 mg twice a day and metolazone and on discharge was continued on Bumex 3 mg twice a day and metolazone as needed. His EDW is 107 kg. he reports some dietary indiscretion recently. He describes SOB with any activity, uses home O2 (baseline ~2-3 L and up to 4-5 L). Laboratory studies on admission notable for a creatinine of 3.2mg/dL, b/l cr 2.8-3.2 mg/dL. Continued on IV Bumex 3 bid. Weigt improved to 110 kg form admission weight of 114 kg. UO unmeasured. 2D echo in August showed EF 65%, moderate concentric LVH.chest x-ray on admission showed cardiomegaly and pulmonary congestion. Troponin was mildly elevated but stayed relatively stable. BNP was 1328. He was resting comfortably without SOB at rest. BP has been low, eplerenone on hold. Stage 4 CKD, b/l cr around 3.0 mg/dl g solitary right kidney s/p left nephrectomy, cardiorenal syndrome. H/o kidney stones, HFpEF, pulmonary hypertension, atrial fibrillation with failed cardioversion before, on Xarelto and metoprolol, h/o of aortic stenosis s/p Bovine aortic valve replacement in 2006, obesity s/p gastric bypass 2012, FIFI on BIPAP QHS, gout, breast mass, was on Tamoxifen, dyslipidemia, and chronic venous insufficiency. Although his weight was down and blood pressure has been low he himself did not notice any significant increase in urine output. Reports feeling slightly better compared to yesterday. Allergies Allergy/AdvReac Type Severity Reaction Status Date / Time iron [From Venofer] AdvReac Mild Vomiting Verified 12/22/23 18:35 Iodinated Contrast Media AdvReac Unknown PT ONLY Verified 12/22/23 18:35 [Iodinated Contrast- Oral HAS 1 and IV Dye] KIDNEY, CONTRAINDICATED. Home Medications Medication Instructions Recorded Confirmed Type amoxicillin 500 mg tablet 2,000 mg PO DIRECTED PRN 1 HOUR 11/16/18 12/22/23 History PRIOR TO DENTAL PROCEDURES docusate sodium 100 mg capsule 100 mg PO QAM PRN Constipation 05/03/20 12/22/23 History cholecalciferol (vitamin D3) 50 50 mcg PO DAILY 07/10/22 12/22/23 History mcg (2,000 unit) capsule (Vitamin D3) magnesium 250 mg tablet 250 mg PO HS 07/10/22 12/22/23 History cyanocobalamin (vitamin B-12) 1,000 mcg IM Q90D #30 mL 09/23/22 12/22/23 Rx 1,000 mcg/mL injection solution metolazone 5 mg tablet 5 mg PO DAILY PRN weight gain #30 10/23/22 12/22/23 Rx tabs allopurinol 100 mg tablet 100 mg PO QAM #90 tabs 01/20/23 12/22/23 Rx rivaroxaban 15 mg tablet 15 mg PO HS #90 tabs 02/09/23 12/22/23 Rx eplerenone 25 mg tablet 25 mg PO QAM #90 tabs 05/04/23 12/22/23 Rx Portable Oxygen #1 ea 05/25/23 12/22/23 Rx calcitriol 0.25 mcg capsule 0.5 mcg (2 x 0.25 mcg) PO QAM #180 08/11/23 12/22/23 Rx caps potassium chloride 10 mEq 10 meq PO BID #180 caps 09/29/23 12/22/23 Rx capsule,extended release cyclobenzaprine 5 mg tablet 5 mg PO BID PRN muscle 11/20/23 12/22/23 Rx pain/stiffness #60 tabs tramadol 50 mg tablet 50 mg PO BID PRN Pain #60 tabs 11/20/23 12/22/23 Rx bumetanide 2 mg tablet 3 mg PO QAM 12/22/23 12/22/23 History metoprolol succinate 200 mg 100 mg PO HS 12/22/23 12/22/23 History tablet,extended release 24 hr mupirocin 2 % topical ointment 1 applic topical TID PRN irritation 12/22/23 12/22/23 History tamoxifen 20 mg tablet 20 mg PO QAM 12/22/23 12/22/23 History Patient History Medical History Aspiration into respiratory tract Acute kidney injury superimposed on CKD Morbid obesity History of anxiety Hx of gout Hx of rotator cuff tear Difficulty with raising arms without extreme pain, currently in PT Hx of osteoarthritis Hx of impacted cerumen History of COVID-19 01/2021 > "mild" cold symptoms, resolved Prediabetes Kidney stones Hx x7 Renal cell adenocarcinoma s/p nephrectomy Chronic kidney disease, stage III (moderate) CKD (chronic kidney disease), stage III Surgical History Hx of cardiac catheterization 11/2020 > no stents History of total bilateral knee replacement History of esophagogastroduodenoscopy (EGD) Hx of colonoscopy Hx of tonsillectomy Hx of cystoscopy w/stone basketing History of left nephrectomy History of spinal surgery Aortic valve replaced bioprosthesis, 2006 History of gastric bypass History of cholecystectomy Family History Mother Breast cancer Lung disease Grandmother (Maternal) Breast cancer Aunt Breast cancer Sister Breast cancer Father Myocardial infarction Arthritis Denies family history of Ovarian cancer Prostate cancer Colorectal cancer Social History Smoking Status: Never smoker Second Hand Exposure: No; Do You Dip or Chew Tobacco: No; Hx Alcohol Use: No Hx Substance Use: No Preferred Language: Yemeni Communication Ability: Effective Visual Impairment: No Limitations Hearing Ability: Normal Button Maker Required: No Beliefs That Will Affect Care: None marital status: Current Living Situation: Spouse Current Living Situation Comment: Lives w/ , son lives in basement current occupational status: retired 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 Physical Exam Constitutional: WD/WN, vitals as above no acute distress Eyes: + anicteric sclerae Neck: normal visual inspection Respiratory: no respiratory distress Auscultation: lungs clear to auscultation bilaterally Cardiovascular: Rate/Rhythm: + tachycardic and + irregularly irregular Heart Sounds: normal S1, normal S2 and + murmur Extremities: + edema (Bilateral lower extremity edema) Gastrointestinal (Abdomen): Inspection/Auscultation: abdomen normal to inspection Musculoskeletal: Extremities: extremities normal to inspection Skin: no rashes, warm and dry Neurologic: no focal motor deficits Psychiatric: Orientation: alert and oriented x 3 Affect: euthymic affect Results & Data Vital Signs (Past 12 Hours) Vital Signs Temp Pulse Pulse Resp BP BP Pulse Ox 12/23/23 08:10 37.9 C H 99 H 20 81/55 L 100 12/23/23 03:33 80 22 98/55 L 97 12/22/23 23:31 36.9 C 108 H 20 96/70 L 98 12/22/23 23:29 101 H O2 Del Method O2 Flow Rate 12/23/23 08:10 Nasal Cannula 3 12/23/23 03:33 Nasal Cannula 3 12/22/23 23:31 Nasal Cannula 3 12/22/23 23:29 PG Care Time/CCT Total # of Minutes Spent Total Time Spent with Patient: Total time spent is greater than 50% in coordination of care (as documented) at patient's floor/unit and/or counseling patient: Coding Level of Care Code 07698 INT INP/OBS CARE 3/75MIN Diagnoses Chronic renal insufficiency, stage IV (severe) N18.4 Acute exacerbation of CHF (congestive heart failure) I50.9 Chronic anemia D64.9 Atrial fibrillation I48.21 Atrial fibrillation type: permanent Hypotension I95.9 (4) Atrial fibrillation Atrial fibrillation type: permanent Qualified Code(s): I48.21 - Permanent atrial fibrillation
[2023-12-23] MEDS: FAMOTIDINE 20MG IV PUSH 20 MG/5 ML SYR IV STA (12:18)
[2023-12-23] MEDS: ACETAMINOPHEN 500 MG TAB PO PRN (15:26)
[2023-12-23] MEDS: EPLERENONE: ORDER AWAITING ACTION SCH (15:27)
--- NOTE | 2023-12-23 16:45 | XCELERA ---
[id number]
[2023-12-23] MEDS: SODIUM CHLORIDE 0.9% 250 ML IV ONE (17:50)
--- NOTE | 2023-12-23 19:52 | Cardiology Consultation ---
Date of Consultation December 23, 2023 Assessment & Plan (1) Acute exacerbation of CHF (congestive heart failure): 2. Chest painclean coronaries on prior cardiac catheterization. Responding to antacids likely GI 3. Bioprosthetic AVR Mildly elevated transvalvular gradients(PG 42, MG 23) on last echo 06/2020 4. Permanent atrial fibrillation persistent. DCCV 12/2021. No change in symptoms. On anticoagulation 5. Moderate mitral regurgitation 6. CKD-- post nephrectomy, baseline SCr ~3.0 7. Iron deficiency anemia 8. Pulm hypertensionmildly dilated RV/RV dysfunction 9. Class III obesity post gastric bypass, FIFI on CPAP Readmitted with progressive exertional dyspnea/weakness which seems secondary to ADHF. BNP significantly elevated and mild congestion on chest x-ray. Fortunately weight seems near his recent baseline and only mild congestion on exam today. Currently responding to IV diuretics with stable renal function. No clear precipitants. Did have low-grade fever this morning and subjective chills prior to admit but no clear infectious source. Very low suspicion for ACS, CP today seems more GI. AF is permanent and prior attempts at rhythm control did not improve symptoms. On echo biventricular function unchanged. Does have at least moderate MR although does not seem significant different from prior echo 08/2023. Agree with restarting IV Bumex 3 mg twice daily Additional metolazone as needed Strict I's/O's and standing daily weights Continue rate control with Toprol-XL 100 mg Anticoagulation with Xarelto When respiratory status improved will consider DIOGO to further assess mitral regurgitation, likely as an outpatient. Continue to follow. Appreciate hospital medicine care. History of Present Illness Attending Physician: Shelia Frank MD History of Present Illness Mr. Antoine is a very pleasant 83-year-old man known to me from the outpatient setting. He has a history of HFpEF, permanent AF, prior bioprosthetic AVR, pulmonary hypertension, stage IV CKD post left nephrectomy for renal CA, iron deficiency anemia, morbid obesity post gastric bypass, FIFI on CPAP, right breast mass on tamoxifen and venous insufficiency with recurrent leg ulcers. He is followed by CHF clinic and was referred to ED yesterday due to worsening shortness of breath, chills and decreased exercise tolerance in part due to lower extremity weakness. Recently hospitalized 12/05-12/10 due to heart failure. Responded to twice daily Bumex 3 mg and recorded weights down 20 pounds on discharge, 236. Had mild acute on chronic renal insufficiency with creatinine up to 3.7 which trended down to 3.0. Since discharge states has been taking maintenance Bumex 2 mg as scheduled. Has been traveling but still limiting salt. Denies sick contacts but did have several episodes of chills while driving. Had new chest pain today that was relieved with Maalox. On presentation WBC 13, creatinine 3.2, HS TropI peak 39, BNP up to 1328. UA, respiratory panel unremarkable. Chest x-ray with mild pulm edema. ECG showed AF with RVR previously noted at T wave versions anteriorly. Allergies Allergy/AdvReac Type Severity Reaction Status Date / Time iron [From Venofer] AdvReac Mild Vomiting Verified 12/22/23 18:35 Iodinated Contrast Media AdvReac Unknown PT ONLY Verified 12/22/23 18:35 [Iodinated Contrast- Oral HAS 1 and IV Dye] KIDNEY, CONTRAINDICATED. Home Medications Medication Instructions Recorded Confirmed Type amoxicillin 500 mg tablet 2,000 mg PO DIRECTED PRN 1 HOUR 11/16/18 12/22/23 History PRIOR TO DENTAL PROCEDURES docusate sodium 100 mg capsule 100 mg PO QAM PRN Constipation 05/03/20 12/22/23 History cholecalciferol (vitamin D3) 50 50 mcg PO DAILY 07/10/22 12/22/23 History mcg (2,000 unit) capsule (Vitamin D3) magnesium 250 mg tablet 250 mg PO HS 07/10/22 12/22/23 History cyanocobalamin (vitamin B-12) 1,000 mcg IM Q90D #30 mL 09/23/22 12/22/23 Rx 1,000 mcg/mL injection solution metolazone 5 mg tablet 5 mg PO DAILY PRN weight gain #30 10/23/22 12/22/23 Rx tabs allopurinol 100 mg tablet 100 mg PO QAM #90 tabs 01/20/23 12/22/23 Rx rivaroxaban 15 mg tablet 15 mg PO HS #90 tabs 02/09/23 12/22/23 Rx eplerenone 25 mg tablet 25 mg PO QAM #90 tabs 05/04/23 12/22/23 Rx Portable Oxygen #1 ea 05/25/23 12/22/23 Rx calcitriol 0.25 mcg capsule 0.5 mcg (2 x 0.25 mcg) PO QAM #180 08/11/23 12/22/23 Rx caps potassium chloride 10 mEq 10 meq PO BID #180 caps 09/29/23 12/22/23 Rx capsule,extended release cyclobenzaprine 5 mg tablet 5 mg PO BID PRN muscle 11/20/23 12/22/23 Rx pain/stiffness #60 tabs tramadol 50 mg tablet 50 mg PO BID PRN Pain #60 tabs 11/20/23 12/22/23 Rx bumetanide 2 mg tablet 3 mg PO QAM 12/22/23 12/22/23 History metoprolol succinate 200 mg 100 mg PO HS 12/22/23 12/22/23 History tablet,extended release 24 hr mupirocin 2 % topical ointment 1 applic topical TID PRN irritation 12/22/23 12/22/23 History tamoxifen 20 mg tablet 20 mg PO QAM 12/22/23 12/22/23 History Patient History Medical History Aspiration into respiratory tract Acute kidney injury superimposed on CKD Morbid obesity History of anxiety Hx of gout Hx of rotator cuff tear Difficulty with raising arms without extreme pain, currently in PT Hx of osteoarthritis Hx of impacted cerumen History of COVID-19 01/2021 > "mild" cold symptoms, resolved Prediabetes Kidney stones Hx x7 Renal cell adenocarcinoma s/p nephrectomy Chronic kidney disease, stage III (moderate) CKD (chronic kidney disease), stage III Surgical History Hx of cardiac catheterization 11/2020 > no stents History of total bilateral knee replacement History of esophagogastroduodenoscopy (EGD) Hx of colonoscopy Hx of tonsillectomy Hx of cystoscopy w/stone basketing History of left nephrectomy History of spinal surgery Aortic valve replaced bioprosthesis, 2006 History of gastric bypass History of cholecystectomy Family History Mother Breast cancer Lung disease Grandmother (Maternal) Breast cancer Aunt Breast cancer Sister Breast cancer Father Myocardial infarction Arthritis Denies family history of Ovarian cancer Prostate cancer Colorectal cancer Social History (Reviewed 12/07/23 @ 10:09 by HUSSAIN Macias Smoking Status: Never smoker Second Hand Exposure: No; Do You Dip or Chew Tobacco: No; Hx Alcohol Use: No Hx Substance Use: No Preferred Language: Russian Communication Ability: Effective Visual Impairment: No Limitations Hearing Ability: Normal Field Secretary Required: No Beliefs That Will Affect Care: None marital status: Current Living Situation: Spouse Current Living Situation Comment: Lives w/ , son lives in basement current occupational status: retired 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[employer] Feels Safe at Home: Yes Childhood Exposure to Second-Hand Smoke: Yes Diet: regular caffeine: Yes Dental Care, Regularly: Yes Physical Activity Frequency: Does not Exercise Physical Activity Frequency Comment: Physical activity limited due to medical conditions Seatbelt Use: always Sunscreen Use: No Do you think of yourself as: straight/heterosexual Gender Identity: Male Assistive Devices: Cane and Walker Review of Systems Review of Systems: All systems reviewed & are unremarkable except as noted in HPI & below Physical Exam Physical Exam: General: Comfortable, mood down HEENT: Sclerae anicteric Lungs: Few crackles right greater than left. DVT approximately 9 Cardiac: Irregularly irregular, crisp bioprosthetic closure, 1/6 Systolic ejection murmur. 2/6 holosystolic murmur Vascular: 1+ radial pulses bilaterally Abdomen: Soft, nontender, obese Extremities: Well perfused, trace to 1+ bilateral lower extreme edema, left anterior salmeron ulcer dressed with no surrounding erythema/induration Neuro: Nonfocal Psych: Alert orient x3, normal affect and mood Results & Data Vital Signs (Past 12 Hours) Vital Signs Temp Pulse Pulse Resp BP Pulse Ox Pulse Ox 12/23/23 18:51 98.8 F 100 H 16 87/57 L 97 12/23/23 16:46 98.2 F 117 H 20 80/50 L 92 12/23/23 13:01 117 H 12/23/23 11:57 97 12/23/23 08:10 100.2 F H 99 H 20 81/55 L 100 12/23/23 08:00 O2 Del Method O2 Flow Rate O2 Flow Rate 12/23/23 18:51 Nasal Cannula 3 12/23/23 16:46 Nasal Cannula 3 12/23/23 13:01 12/23/23 11:57 3 12/23/23 08:10 Nasal Cannula 3 12/23/23 08:00 Nasal Cannula 3 PG Care Time/CCT Total # of Minutes Spent Total Time Spent with Patient: Total time spent is greater than 50% in coordination of care (as documented) at patient's floor/unit and/or counseling patient: Coding Level of Care Code 70483 INT INP/OBS CARE 3/75MIN Diagnoses Acute exacerbation of CHF (congestive heart failure) I50.9
[2023-12-23] MEDS: MAGNESIUM OXIDE 400 MG TAB PO SCH (20:01)
[2023-12-23] MEDS ORDERED: RIVAROXABAN 15 MG TAB PO ONE (21:00)
--- NOTE | 2023-12-24 06:23 | Electrocardiogram Report ---
Test Reason : Blood Pressure : */* mmHG Vent. Rate : 103 BPM Atrial Rate : 89 BPM P-R Int : * ms QRS Dur : 94 ms QT Int : 346 ms P-R-T Axes : * 49 41 degrees QTcB Int : 453 ms Atrial fibrillation with rapid ventricular response Abnormal ECG When compared with ECG of 22-Dec-2023 15:28, Borderline criteria for Inferior infarct are no longer Present Inverted T waves have replaced nonspecific T wave abnormality in Anterior leads Confirmed by Mckay Elliott ([id number]) on 12/24/2023 6:23:24 AM Referred By: Una Ramirez Confirmed By: Mckay Elliott
--- NOTE | 2023-12-24 06:23 | Electrocardiogram Report ---
Test Reason : Blood Pressure : */* mmHG Vent. Rate : 97 BPM Atrial Rate : * BPM P-R Int : * ms QRS Dur : 90 ms QT Int : 358 ms P-R-T Axes : * 60 29 degrees QTcB Int : 454 ms Atrial fibrillation Possible Inferior infarct , age undetermined Nonspecific ST abnormality Abnormal ECG When compared with ECG of 07-Dec-2023 15:35, Borderline criteria for Inferior infarct are now Present T wave inversion less evident in Anterior leads Confirmed by Mckay Elliott ([id number]) on 12/24/2023 6:22:49 AM Referred By: Una Ramirez Confirmed By: Mckay Elliott
[2023-12-24 06:45] LABS: BUN Creatinine Ratio 18.7 (10-20); Calcium 8.9 mg/dl (8.6-10.3); Creatinine Clr Calc Pharmacy 22.9 ml/min; Est GFR (African American) 21.7 ml/min; Est GFR (Non-African American) 18.7 ml/min; Magnesium 2.1 mg/dl (1.7-2.4); Potassium 3.7 mmol/L (3.5-5.1)
[2023-12-24 06:49] LABS: Hematocrit (blood only) 37.8 % (42.0-52.0); Hemoglobin 11.2 g/dl (14.0-18.0); Mean Corpuscular Hemoglobin 26.2 pg (25.0-34.0); Mean Corpuscular Hgb Conc 29.6 g/dL (32.0-36.0); Mean Corpuscular Volume 88.3 fL (80.0-100.0); Mean Platelet Volume 10.2 fL (9.4-12.4); Platelet Count 161 K/uL (130-400); RDW Coefficient of Variation 17.8 % (11.5-14.5); RDW Standard Deviation 57.1 fL (36.4-46.3); Red Blood Count 4.28 M/uL (4.70-6.10); White Blood Count 10.56 K/ul (4.8-10.8)
[2023-12-24] MEDS: CYCLOBENZAPRINE HCL 5 MG TAB PO PRN (08:52)
[2023-12-24] MEDS: METOPROLOL SUCC 50MG EXT REL TAB PO SCH ×2 (09:00→21:44)
--- NOTE | 2023-12-24 12:13 | Nephrology Progress Note ---
Date of Service December 24, 2023 Assessment & Plan (1) Chronic renal insufficiency, stage IV (severe): (2) Acute exacerbation of CHF (congestive heart failure): (3) Chronic anemia: (4) Atrial fibrillation: (5) Hypotension: Plan 83-year-old gentleman with stage IV CKD and congestive heart failure with diastolic dysfunction and preserved EF, admitted to the hospital with diuretic resistant volume overload, shortness of breath and generalized weakness. Kidney function staying relatively stable, baseline creatinine 3.0 mg/dl with history of solitary right kidney and cardiorenal syndrome. Estimated dry weight 107 kg on admission weight was 1.4 kg which improved to 110 kg this morning. Seems like he is having decent response to diuretics, on Bumex 3 mg IV twice a day although urine output unmeasured. Blood pressure slightly improved, on metoprolol 100 mg daily because of tachycardia with A-fib and RVR. --resume Bumex 3 mg orally twice daily, may need to add Metolazone 2.5 mg with am Bumex dose if net negative. Would recommend continued diuretic management as per heart failure team. Aim for net negative. -- Kidney function staying relatively stable, electrolyte acceptable, do not see any pressing indication for dialysis at this time. --Hemoglobin low but stable, history of iron deficiency, previously received IV iron. Continue to monitor for now, if hemoglobin less than 10, we can consider erythropoietin stimulating agent. -- Continue calcitriol --Agree with holding eplerenone now as blood pressure remains quite low. -- Dose medications for eGFR less than 15 Admission and Anticipated Discharge Date Admission Date: December 22, 2023 Subjective ED was seen and evaluated this morning. He reports 2 episodes of blood-tinged sputum and occasional tremor. Pressure remain low but stable and slightly improved. Net Positive. Diuretics were stopped yesterday because of low blood pressure. Review of Systems Review of Systems: Review of system was done and pertinent positives and negatives are mentioned above. Physical Exam Constitutional: WD/WN, vitals as above no acute distress Eyes: + anicteric sclerae Respiratory: no respiratory distress Cardiovascular: Rate/Rhythm: + tachycardic and + irregularly irregular Heart Sounds: normal S1, normal S2 and + murmur Extremities: + edema (Bilateral lower extremity edema) Musculoskeletal: Extremities: extremities normal to inspection Skin: no rashes, warm and dry Neurologic: no focal motor deficits Psychiatric: Orientation: alert and oriented x 3 Affect: euthymic affect Results & Data Vital Signs (Past 12 Hours) Vital Signs Temp Pulse Resp BP Pulse Ox O2 Del Method O2 Flow Rate 12/24/23 11:25 37.5 C 126 H 18 109/67 99 Nasal Cannula 3 12/24/23 10:39 36.2 C L 118 H 20 120/78 100 Nasal Cannula 3 12/24/23 08:59 93/66 L 12/24/23 08:36 36.7 C 120 H 20 83/58 L 92 Nasal Cannula 3 12/24/23 03:21 36.6 C 113 H 18 91/65 L 93 Nasal Cannula PG Care Time/CCT Total # of Minutes Spent Total Time Spent with Patient: Total time spent is greater than 50% in coordination of care (as documented) at patient's floor/unit and/or counseling patient: Coding Level of Care Code 67803 SUB INP/OBS CARE 2/35MIN Diagnoses Chronic renal insufficiency, stage IV (severe) N18.4 Acute exacerbation of CHF (congestive heart failure) I50.9 Chronic anemia D64.9 Atrial fibrillation I48.21 Atrial fibrillation type: permanent Hypotension I95.9 (4) Atrial fibrillation Atrial fibrillation type: permanent Qualified Code(s): I48.21 - Permanent atrial fibrillation
--- NOTE | 2023-12-24 14:37 | Hospitalist Progress Note ---
Date of Service December 24, 2023 Assessment & Plan (1) Acute exacerbation of CHF (congestive heart failure): Plan: Recently hospitalized for acute on chronic HFpEF and discharged 2 weeks ago. Discharge weight 107 kg. Home O2 NC - 3L. Progressive SOB prompting ED eval. He was at his high school reunion last weekend and may have overindulged in high sodium foods Admitted for CHF exacerbation. CXR w/ cardiomegaly and pulm edema, BNP elevated at 1328 Echo repeated here similar to previous with preserved EF, moderate LVH, moderate to severe MR, moderately dilated RV with normal function, and moderate to severe pulmonary hypertension, well-seated and functioning prosthetic AV, no wall motion abnormalities Diuresed but weight not back to baseline yet. I/Os not being accurately recorded Low blood pressures are limiting diuresis and rate control -SBP as low as the 70s systolic on 12/22, prompted gentle bolus Resume Bumex 3mg po bid, dc IV Bumex Continue to hold home eplerenone with low BPs Renal function actually improved from previous with creatinine 2.9-follow BMP and appreciate nephrology consultation Continue Daily weights, strict Is and Os, fluid restriction monitor electrolytes and replete as indicated (2) Chest pain: Plan: Presented with atypical chest pain at rest that was sharp in nature and lasted 30 minutes, resolved with Maalox and IV Pepcid Serial troponin x 2 lower than previous at and . ECG with some ischemic changes but similar to prior EKGs He is on chronic anticoagulation so PE not likely Appreciate cardiology consultation Do not suspect acute coronary syndrome but rather likely secondary to acid reflux/GI issues Stat echo performed which shows preserved EF, moderate LVH, moderate to severe MR, moderately dilated RV with normal function, and moderate to severe pulmonary hypertension, well-seated and functioning prosthetic AV, no wall motion abnormalities Continue Maalox as needed, diuresis, rate control (3) Atrial fibrillation with rapid ventricular response: Plan: Permanent a fib. On metoprolol 100 mg for rate control. On Xarelto for anticoagulation. Metop was decreased and dilt was stopped during last admission for soft BPs. Tachycardic today into 120s-140s from Toprol being held last evening fro hypotension Resume Toprol XL 50mg bid with change in hold parameters to hold for SBP<90 (4) Hypotension: Plan: Ongoing chronic issue despite lowering Toprol dose, and last admission stopped aldactone, Entresto, and diltiazem Hold home eplerenone Follow blood pressures He may need midodrine added-will continue to follow (5) Acute on chronic kidney failure: Plan: With acute kidney injury last admission on CKD stage IV-creatinine improved today from baseline 3.0. Creatinine today 2.9 With hypotension making diuresis difficult Holding eplerenone Diurese as able to with blood pressures being soft-resume bumex 3mg po bid Nephrology consult - appreciate recs Follow BMP, follow urine output (6) Leukocytosis: Plan: WBC elevated at 13.10 on admission and now down to 10. Viral respiratory BioFire negative, had a low-grade temperature here x 1 but not a definite fever Chest x-ray without pneumonia Had scant hemoptysis on 12/23-follow No other evidence of infection anywhere Could be reactive to stress Follow CBC (7) Elevated troponin: Plan: Demand ischemia from acute CHF Troponin serially trended downward today, ECG with some ST depression in anterolateral leads not changed much from prior Appreciate cardiology consultation Echocardiogram without wall motion abnormalities Chest pain on 12/22 is atypical and not related to cardiac chest pain (8) Chronic anemia: Plan: Hemoglobin 10.7-11.0, received 2 doses of IV Venofer last admission which did make him nauseated and had vomiting May need erythropoietin at some point-defer to nephrology Follow CBC Plan Chronic pain-continue tramadol and Flexeril as needed Vitamin D deficiency-continue calcitriol and and vitamin D Gout-no acute issues, continue allopurinol which is renally dosed Code status: full DVT ppx: Xarelto Dispo: Continued stay on PCU/tele Admission and Anticipated Discharge Date Admission Date: December 22, 2023 Subjective Pt reports SERVIN today with walking to the toilet and back. Also still having some sharp pains across top of chest with moving around. He also reports coughing up 2 "balls" of bloody sputum today. No bleeding from his nose. He moved his bowels twice today. Tele with afib, rates 120s-140s with exertion. Of note, his metoprolol was held last night for hypotension Physical Exam Constitutional: WD/WN, vitals as above + obese Respiratory: normal respiratory effort; no cough Auscultation: lungs clear to auscultation bilaterally; no crackles, no rhonchi and no wheezes Cardiovascular: Rate/Rhythm: + tachycardic and + irregularly irregular Extremities: + edema (Trace pitting edema legs bilaterally) Gastrointestinal (Abdomen): normal bowel sounds, soft, nontender, no hepatosplenomegaly Psychiatric: Orientation: alert and oriented x 3 Affect: + anxious affect Results & Data Results & Data Vital Signs (Past 12 Hours) Vital Signs Temp Pulse Resp BP Pulse Ox O2 Del Method O2 Flow Rate 12/24/23 11:25 37.5 C 126 H 18 109/67 99 Nasal Cannula 3 12/24/23 10:39 36.2 C L 118 H 20 120/78 100 Nasal Cannula 3 12/24/23 08:59 93/66 L 12/24/23 08:36 36.7 C 120 H 20 83/58 L 92 Nasal Cannula 3 12/24/23 03:21 36.6 C 113 H 18 91/65 L 93 Nasal Cannula Laboratory Results CBC, BMP, magnesium reviewed PG Care Time/CCT Total # of Minutes Spent Total Time Spent with Patient: Total time spent is greater than 50% in coordination of care (as documented) at patient's floor/unit and/or counseling patient: Coding Level of Care Code 67433 SUB INP/OBS CARE 2/35MIN Diagnoses Acute exacerbation of CHF (congestive heart failure) I50.9 Chest pain R07.9 Atrial fibrillation with rapid ventricular response I48.91 Hypotension I95.9 Acute on chronic kidney failure N17.9; N18.9 Leukocytosis D72.829 Elevated troponin R79.89 Chronic anemia D64.9
--- NOTE | 2023-12-24 17:47 | Cardiology Progress Note ---
Date of Service December 24, 2023 Assessment & Plan (1) Acute exacerbation of CHF (congestive heart failure): Plan: 2. Chest painclean coronaries on prior cardiac catheterization. Responding to antacids likely GI 3. Bioprosthetic AVR Mildly elevated transvalvular gradients(PG 42, MG 23) on last echo 06/2020 4. Permanent atrial fibrillation persistent. DCCV 12/2021. No change in symptoms. On anticoagulation 5. Moderate mitral regurgitation 6. CKD-- post nephrectomy, baseline SCr ~3.0 7. Iron deficiency anemia 8. Pulm hypertensionmildly dilated RV/RV dysfunction 9. Class III obesity post gastric bypass, FIFI on CPAP Persistent NYHA class III-IV heart failure symptoms Diuresis/rate control limited by relative hypotension. Continue BID Bumex 3mg PO Strict I's/O's and standing daily weights -Agree with BID dosing of Toprol XL and change in admin parameters. Anticoagulation with Xarelto When respiratory status improved will consider DIOGO to further assess mitral regurgitation, likely as an outpatient. Continue to follow. Appreciate hospital medicine care. Admission and Anticipated Discharge Date Admission Date: December 22, 2023 Subjective Short of breath getting up to bathroom. Some chest pain with walking, coughing. Coughed up 2 "balls" of red phlegm. Hypotensive to 80s overnight. Toprol XL held last night. Tele reviewed -- HRs in 120s at rest as high as 160s with exertion. Review of Systems Review of Systems: All systems reviewed & are unremarkable except as noted in HPI & below Physical Exam Physical Exam: General: Dyspneic in bed after going to bathroom- HEENT: Sclerae anicteric Lungs: Few crackles right greater than left. DVT approximately 9 Cardiac: Irregularly irregular, crisp bioprosthetic closure, 1/6 Systolic ejection murmur. 2/6 holosystolic murmur at apex Vascular: 1+ radial pulses bilaterally Abdomen: Soft, nontender, obese Extremities: Well perfused, trace lower extreme edema, left anterior salmeron ulcer dressed with no surrounding erythema/induration Neuro: Nonfocal Psych: Alert orient x3, normal affect and mood Results & Data Vital Signs (Past 12 Hours) Vital Signs Temp Pulse Resp BP Pulse Ox O2 Del Method O2 Flow Rate 12/24/23 15:43 99.9 F H 126 H 18 103/60 98 Nasal Cannula 3 12/24/23 11:25 99.5 F 126 H 18 109/67 99 Nasal Cannula 3 12/24/23 10:39 97.2 F L 118 H 20 120/78 100 Nasal Cannula 3 12/24/23 08:59 93/66 L 12/24/23 08:36 98.1 F 120 H 20 83/58 L 92 Nasal Cannula 3 PG Care Time/CCT Total # of Minutes Spent Total Time Spent with Patient: Total time spent is greater than 50% in coordination of care (as documented) at patient's floor/unit and/or counseling patient: Coding Level of Care Code 35955 SUB INP/OBS CARE 2/35MIN Diagnoses Acute exacerbation of CHF (congestive heart failure) I50.9
[2023-12-24] MEDS: BUMETANIDE 1 MG TAB PO SCH (21:42)
[2023-12-25 06:46] LABS: Basophils # (auto) 0.05 K/uL (0.00-0.20); Basophils % (auto) 0.5 %; Eosinophils # (auto) 0.05 K/uL (0.00-0.50); Eosinophils % (auto) 0.5 %; Hematocrit (blood only) 39.7 % (42.0-52.0); Hemoglobin 12.1 g/dl (14.0-18.0); Immature Granulocytes # (auto) 0.05 K/uL (0.01-0.20); Immature Granulocytes % (auto) 0.5 %; Lymphocytes # (auto) 0.65 K/uL (1.20-3.40); Lymphocytes % (auto) 6.3 %; Mean Corpuscular Hemoglobin 25.9 pg (25.0-34.0); Mean Corpuscular Hgb Conc 30.5 g/dL (32.0-36.0); Mean Corpuscular Volume 84.8 fL (80.0-100.0); Mean Platelet Volume 10.5 fL (9.4-12.4); Monocytes # (auto) 0.93 K/uL (0.11-0.59); Neutrophils # (auto) 8.55 K/uL (1.40-6.50); Neutrophils % (auto) 83.2 %; Platelet Count 200 K/uL (130-400); RDW Coefficient of Variation 17.8 % (11.5-14.5); RDW Standard Deviation 54.4 fL (36.4-46.3); Red Blood Count 4.68 M/uL (4.70-6.10); White Blood Count 10.28 K/ul (4.8-10.8)
[2023-12-25 06:51] LABS: Calcium 9.2 mg/dl (8.6-10.3); Magnesium 2.2 mg/dl (1.7-2.4); Potassium 3.7 mmol/L (3.5-5.1)
[2023-12-25 06:57] LABS: BUN Creatinine Ratio 19.1 (10-20); Creatinine Clr Calc Pharmacy 23.2 ml/min; Est GFR (African American) 22.2 ml/min; Est GFR (Non-African American) 19.2 ml/min
--- NOTE | 2023-12-25 10:41 | Nephrology Progress Note ---
Date of Service December 25, 2023 Assessment & Plan (1) Chronic renal insufficiency, stage IV (severe): (2) Acute exacerbation of CHF (congestive heart failure): (3) Chronic anemia: (4) Atrial fibrillation: (5) Hypotension: Plan 83-year-old gentleman with stage IV CKD and congestive heart failure with diastolic dysfunction and preserved EF, admitted to the hospital with diuretic resistant volume overload, shortness of breath and generalized weakness. Kidney function staying relatively stable, baseline creatinine 3.0 mg/dl with history of solitary right kidney and cardiorenal syndrome. Estimated dry weight 107 kg on admission weight was 1.4 kg which improved to 110 kg this morning. Seems like he is having decent response to diuretics, on Bumex 3 mg IV twice a day although urine output unmeasured. Blood pressure slightly improved, on metoprolol 100 mg daily but continues to be tachycardic. Kidney function stable, electrolyte acceptable. Intake output unmeasured but his weight is down almost 2 kg and seems like getting pretty close to his dry weight. -- Continue Bumex 3 mg orally twice daily, may need to add Metolazone 2.5 mg twice a week with am Bumex dose if net negative. Would recommend continued diuretic management as per heart failure team. Aim for net negative. -- Kidney function staying relatively stable, electrolyte acceptable, do not see any pressing indication for dialysis at this time. Clinically he feels fatigued most likely secondary to ongoing tachycardia --Hemoglobin low but stable, history of iron deficiency, previously received IV iron. Continue to monitor for now, if hemoglobin less than 10, we can consider erythropoietin stimulating agent. -- Continue calcitriol --Agree with holding eplerenone now as blood pressure remains quite low. -- Dose medications for eGFR less than 15 --No other recommendation from her from nephrology at this time, we will sign off but please contact if any further assistance needed. He has follow-up appointment with Dr. Curry at the CKD clinic in mid January. He should continue to maintain close follow-up with heart failure clinic on discharge. Admission and Anticipated Discharge Date Admission Date: December 22, 2023 Subjective ED was seen and evaluated this morning. He reports overall feeling tired but denies SOB. Had difficulty voiding this morning but eventually he was able to urinate decent volume after he walker to the commode. Pressure remain low but stable and slightly improved. Intake and output is not accurate but clinically volume status seems acceptable and his weight is down almost 2 KG compared to yesterday. Kidney function stayed relatively stable electrolyte acceptable. Remained tachycardic with heart rate 100-120s. Review of Systems Review of Systems: Review of system was done and pertinent positives and negatives are mentioned above. Physical Exam Constitutional: WD/WN, vitals as above no acute distress Respiratory: no respiratory distress Auscultation: + diminished lung sounds and + crackles Cardiovascular: Rate/Rhythm: + tachycardic and + irregularly irregular Heart Sounds: normal S1, normal S2 and + murmur Extremities: + edema (trace edema) Musculoskeletal: Extremities: extremities normal to inspection Skin: no rashes, warm and dry Neurologic: no focal motor deficits Psychiatric: Orientation: alert and oriented x 3 Affect: euthymic affect Results & Data Vital Signs (Past 12 Hours) Vital Signs Temp Pulse Pulse Resp BP Pulse Ox O2 Del Method 12/25/23 07:14 36.4 C L 106 H 22 106/68 98 Nasal Cannula 12/25/23 03:29 37.1 C 119 H 19 94/66 L 96 CPAP 12/25/23 00:00 143 H 12/24/23 23:47 36.9 C 135 H 19 135/81 96 CPAP O2 Flow Rate 12/25/23 07:14 3 12/25/23 03:29 12/25/23 00:00 12/24/23 23:47 PG Care Time/CCT Total # of Minutes Spent Total Time Spent with Patient: Total time spent is greater than 50% in coordination of care (as documented) at patient's floor/unit and/or counseling patient: Coding Level of Care Code 56945 SUB INP/OBS CARE 2/35MIN Diagnoses Chronic renal insufficiency, stage IV (severe) N18.4 Acute exacerbation of CHF (congestive heart failure) I50.9 Chronic anemia D64.9 Atrial fibrillation I48.21 Atrial fibrillation type: permanent Hypotension I95.9 (4) Atrial fibrillation Atrial fibrillation type: permanent Qualified Code(s): I48.21 - Permanent atrial fibrillation
--- NOTE | 2023-12-25 22:25 | Hospitalist Progress Note ---
Date of Service December 25, 2023 Assessment & Plan (1) Acute exacerbation of CHF (congestive heart failure): Plan: Recently hospitalized for acute on chronic HFpEF and discharged 2 weeks ago. Discharge weight 107 kg. Home O2 NC - 3L. Progressive SOB prompting ED eval. He was at his high school reunion last weekend and may have overindulged in high sodium foods Admitted for CHF exacerbation. CXR w/ cardiomegaly and pulm edema, BNP elevated at 1328 Echo repeated here similar to previous with preserved EF, moderate LVH, moderate to severe MR, moderately dilated RV with normal function, and moderate to severe pulmonary hypertension, well-seated and functioning prosthetic AV, no wall motion abnormalities Diuresed but weight not back to baseline yet. I/Os not being accurately recorded Low blood pressures are limiting diuresis and rate control -SBP as low as the 70s systolic on 12/22, prompted gentle bolus Resume Bumex 3mg po bid, dc IV Bumex Continue to hold home eplerenone with low BPs Renal function actually improved from previous with creatinine 2.93-follow BMP and appreciate nephrology consultation Continue Daily weights, strict Is and Os, fluid restriction monitor electrolytes and replete as indicated (2) Chest pain: Plan: Presented with atypical chest pain at rest that was sharp in nature and lasted 30 minutes, resolved with Maalox and IV Pepcid Serial troponin x 2 lower than previous at and . ECG with some ischemic changes but similar to prior EKGs He is on chronic anticoagulation so PE not likely Appreciate cardiology consultation Do not suspect acute coronary syndrome but rather likely secondary to acid reflux/GI issues Stat echo performed which shows preserved EF, moderate LVH, moderate to severe MR, moderately dilated RV with normal function, and moderate to severe pulmonary hypertension, well-seated and functioning prosthetic AV, no wall motion abnormalities Continue Maalox as needed, diuresis, rate control (3) Atrial fibrillation with rapid ventricular response: Plan: Permanent a fib. On metoprolol 100 mg for rate control. On Xarelto for anticoagulation. Metop was decreased and dilt was stopped during last admission for soft BPs. Resume Toprol XL 50mg bid with change in hold parameters to hold for SBP<90 HR went into A fib RVR (110-130) at 18:00, ordered to give metoprolol sooner (4) Hypotension: Plan: Ongoing chronic issue despite lowering Toprol dose, and last admission stopped aldactone, Entresto, and diltiazem Hold home eplerenone Follow blood pressures He may need midodrine added-will continue to follow (5) Acute on chronic kidney failure: Plan: With acute kidney injury last admission on CKD stage IV-creatinine improved today from baseline 3.0. Creatinine today 2.9 With hypotension making diuresis difficult Holding eplerenone Diurese as able to with blood pressures being soft-resume bumex 3mg po bid Nephrology consult - appreciate recs Follow BMP, follow urine output (6) Leukocytosis: Plan: WBC elevated at 13.10 on admission and now down to 10. Viral respiratory BioFire negative, had a low-grade temperature here x 1 but not a definite fever Chest x-ray without pneumonia Had scant hemoptysis on 12/23-follow No other evidence of infection anywhere Could be reactive to stress Follow CBC (7) Elevated troponin: Plan: Demand ischemia from acute CHF Troponin serially trended downward today, ECG with some ST depression in anterolateral leads not changed much from prior Appreciate cardiology consultation Echocardiogram without wall motion abnormalities Chest pain on 12/22 is atypical and not related to cardiac chest pain (8) Chronic anemia: Plan: Hemoglobin 10.7-11.0, received 2 doses of IV Venofer last admission which did make him nauseated and had vomiting May need erythropoietin at some point-defer to nephrology Follow CBC Plan Chronic pain-continue tramadol and Flexeril as needed Vitamin D deficiency-continue calcitriol and and vitamin D Gout-no acute issues, continue allopurinol which is renally dosed Code status: full DVT ppx: Xarelto Dispo: Continued stay on PCU/tele Admission and Anticipated Discharge Date Admission Date: December 22, 2023 Subjective Patient reports feeling better. He has no new complaints. Nurse reports he became tachycardic at 18:00 Review of Systems Review of Systems: All systems reviewed & are unremarkable except as noted in HPI & below Physical Exam Constitutional: WD/WN, vitals as above + obese Respiratory: normal respiratory effort; no cough Auscultation: lungs clear to auscultation bilaterally; no crackles, no rhonchi and no wheezes Cardiovascular: Rate/Rhythm: + tachycardic and + irregularly irregular Extremities: + edema (Trace pitting edema legs bilaterally) Gastrointestinal (Abdomen): normal bowel sounds, soft, nontender, no hepatosplenomegaly Psychiatric: Orientation: alert and oriented x 3 Affect: + anxious affect Results & Data Results & Data Vital Signs (Past 12 Hours) Vital Signs Temp Pulse Pulse Resp BP Pulse Ox O2 Del Method 12/25/23 20:33 38.8 C H 12/25/23 19:00 37.3 C 110 H 22 108/63 94 Nasal Cannula 12/25/23 16:54 37.5 C 130 H 22 92/64 L 12/25/23 10:44 36.3 C L 79 21 95/70 L 99 Nasal Cannula O2 Flow Rate 12/25/23 20:33 12/25/23 19:00 2 12/25/23 16:54 12/25/23 10:44 3 PG Care Time/CCT Total # of Minutes Spent Total Time Spent with Patient: Total time spent is greater than 50% in coordination of care (as documented) at patient's floor/unit and/or counseling patient: Coding Level of Care Code 15858 SUB INP/OBS CARE 2/35MIN Diagnoses Acute exacerbation of CHF (congestive heart failure) I50.9 Chest pain R07.9 Atrial fibrillation with rapid ventricular response I48.91 Hypotension I95.9 Acute on chronic kidney failure N17.9; N18.9 Leukocytosis D72.829 Elevated troponin R79.89 Chronic anemia D64.9
[2023-12-26 07:36] LABS: Basophils # (auto) 0.04 K/uL (0.00-0.20); Basophils % (auto) 0.4 %; Eosinophils # (auto) 0.07 K/uL (0.00-0.50); Eosinophils % (auto) 0.7 %; Hematocrit (blood only) 38.2 % (42.0-52.0); Immature Granulocytes # (auto) 0.06 K/uL (0.01-0.20); Immature Granulocytes % (auto) 0.6 %; Lymphocytes # (auto) 0.72 K/uL (1.20-3.40); Lymphocytes % (auto) 7.6 %; Mean Corpuscular Hemoglobin 26.7 pg (25.0-34.0); Mean Corpuscular Hgb Conc 31.4 g/dL (32.0-36.0); Mean Corpuscular Volume 84.9 fL (80.0-100.0); Mean Platelet Volume 10.5 fL (9.4-12.4); Monocytes # (auto) 0.75 K/uL (0.11-0.59); Monocytes % (auto) 7.9 %; Neutrophils # (auto) 7.87 K/uL (1.40-6.50); Neutrophils % (auto) 82.8 %; Platelet Count 233 K/uL (130-400); RDW Coefficient of Variation 17.6 % (11.5-14.5); RDW Standard Deviation 54.6 fL (36.4-46.3); White Blood Count 9.51 K/ul (4.8-10.8)
[2023-12-26 08:11] LABS: Albumin Level 2.9 gm/dl (3.4-5.0); BUN Creatinine Ratio 20.1 (10-20); Bilirubin,Total 0.9 mg/dl (0.2-1.0); C Reactive Protein 19.82 mg/dl (0-0.5); Est GFR (African American) 24.6 ml/min; Est GFR (Non-African American) 21.2 ml/min; Potassium 3.6 mmol/L (3.5-5.1); Total Protein 5.9 gm/dl (6.0-8.3)
[2023-12-26 09:27] LABS: Appearance Urine Clear (Clear); Bacteria Urine Automated None Seen (None Seen); Bilirubin Urine Negative (Negative); Blood Urine Negative (Negative); Cast Urine Automated 0-2 /lpf (0-2); Color Urine Yellow; Epithelial Cell Urine Auto 0-2 /hpf (0-2); Glucose Urine UA Negative (Negative); Ketones Urine Negative (Negative); Leukocyte Esterase Urine Trace (Negative); Nitrite Urine Negative (Negative); Protein Urine Negative (Negative); RBC Urine Automated 0-2 /hpf (0-2); Specific Gravity Urine 1.009 (1.000-1.030); Urobilinogen Urine Negative (Negative); WBC Urine Automated 0-5 /hpf (0-5)
[2023-12-26 11:07] LABS: Influenza A virus by PCR Negative (Neg); Influenza B virus by PCR Negative (Neg); RSV by PCR Negative (Neg); SARS CoV2 RNA(COVID-19) Ceph NEGATIVE (Negative)
--- NOTE | 2023-12-26 14:03 | Cardiology Progress Note ---
Date of Service December 26, 2023 Assessment & Plan (1) Acute exacerbation of CHF (congestive heart failure): Plan: 2. Chest painclean coronaries on prior cardiac catheterization. Responding to antacids likely GI 3. Bioprosthetic AVR previously had mildly elevated transvalvular gradients(PG 42, MG 23), stable on last echo 4. Permanent atrial fibrillation persistent. DCCV 12/2021. No change in symptoms. On anticoagulation 5. Moderate mitral regurgitationmoderate to severe on most recent echo 11/2023 6. CKD-- post nephrectomy, baseline SCr ~3.0 7. Iron deficiency anemia 8. Pulm hypertensionmildly dilated RV/RV dysfunction 9. Class III obesity post gastric bypass, FIFI on CPAP Recurrent fever overnight and shaking chills Diuresing well, improved congestion on exam, weight down, BNP down, stable renal function. AF with RVR persists Continue BID Bumex 3mg today. Feel approaching euvolemia and may need to transition back to Bumex 3 mg daily at some point -Continue current Toprol-XL. Further titration limited by blood pressures. W ould avoid digoxin with chronic CKD. Okay with current heart rates in the setting of possible acute illness. Anticoagulation with Xarelto When respiratory status improved will consider DIOGO to further assess mitral regurgitation, likely as an outpatient. Appreciate hospital medicine care. Admission and Anticipated Discharge Date Admission Date: December 22, 2023 Subjective Febrile overnight to 101.8 UA unremarkable. Viral panel negative. Chest x-ray with reduced congestion. Today reports was initially feeling well, but now increased general fatigue. Denies chest pain. Breathing stable Telemetry reviewedpersistent A-fib with RVR as high as 160s when getting out of bed. Recorded weight down 5 pounds from yesterday. Review of Systems Review of Systems: All systems reviewed & are unremarkable except as noted in HPI & below Physical Exam Physical Exam: General: Looks tired but no distress HEENT: Sclerae anicteric Lungs: Lungs clear bilaterally Cardiac: Irregularly irregular, crisp bioprosthetic closure, 1/6 Systolic ejection murmur. 2/6 holosystolic murmur at apex Vascular: 1+ radial pulses bilaterally Abdomen: Soft, nontender, obese Extremities: Well perfused, no edema, legs cool Neuro: Nonfocal Psych: Alert orient x3, normal affect and mood Results & Data Vital Signs (Past 12 Hours) Vital Signs Temp Pulse Resp BP Pulse Ox O2 Del Method O2 Flow Rate 12/26/23 11:29 97.5 F L 103 H 30 H 106/73 96 Nasal Cannula 3 12/26/23 08:00 Nasal Cannula 3 12/26/23 07:54 98.2 F 94 H 22 105/77 95 Nasal Cannula 2 12/26/23 02:54 98.4 F 105 H 17 105/77 90 Nasal Cannula 2 PG Care Time/CCT Total # of Minutes Spent Total Time Spent with Patient: Total time spent is greater than 50% in coordination of care (as documented) at patient's floor/unit and/or counseling patient: Coding Level of Care Code 75678 SUB INP/OBS CARE 235MIN Diagnoses Acute exacerbation of CHF (congestive heart failure) I50.9
--- NOTE | 2023-12-26 14:09 | Hospitalist Progress Note ---
Date of Service December 26, 2023 Assessment & Plan (1) Acute exacerbation of CHF (congestive heart failure): Plan: Recently hospitalized for acute on chronic HFpEF and discharged 2 weeks ago. Discharge weight 107 kg. Home O2 NC - 3L. Progressive SOB prompting ED eval. He was at his high school reunion last weekend and may have overindulged in high sodium foods Admitted for CHF exacerbation. CXR w/ cardiomegaly and pulm edema, BNP elevated at 1328 Echo repeated here similar to previous with preserved EF, moderate LVH, moderate to severe MR, moderately dilated RV with normal function, and moderate to severe pulmonary hypertension, well-seated and functioning prosthetic AV, no wall motion abnormalities Diuresed with IV Bumex initially 3mg bid and then to po Bumex 3mg bid - weight down to 105.8 kg Low blood pressures are limiting diuresis and rate control -SBP as low as the 70s systolic on 12/22, prompted gentle bolus Decrease Bumex to 3mg po daily Continue to hold home eplerenone with low BPs Renal function actually improved from previous with creatinine 2.6-follow BMP and appreciate nephrology consultation (now signed off) Continue Daily weights, strict Is and Os, fluid restriction monitor electrolytes and replete as indicated (2) Fever: Plan: spiked a fever on evening of 12/24, watery eyes, fatigue, tachycardia Some loose stool but no abd pain CXR seems improved with less pulm edema from previous, no PNA UA neg for infection, no evidence of wound infections anywhere WBC count normal BCxs [id number] follow Checked COVID/Flu/RSV--> negative Will check Resp BioFire (3) Chest pain: Plan: Presented with atypical chest pain at rest that was sharp in nature and lasted 30 minutes, resolved with Maalox and IV Pepcid Serial troponin x 2 lower than previous at 26 and 27. ECG with some ischemic changes but similar to prior EKGs He is on chronic anticoagulation so PE not likely Appreciate cardiology consultation Do not suspect acute coronary syndrome but rather likely secondary to acid reflux/GI issues Stat echo performed which shows preserved EF, moderate LVH, moderate to severe MR, moderately dilated RV with normal function, and moderate to severe pulmonary hypertension, well-seated and functioning prosthetic AV, no wall motion abnormalities Continue Maalox as needed, diuresis, rate control Has not had any further chest pain (4) Atrial fibrillation with rapid ventricular response: Plan: Permanent a fib. On metoprolol 100 mg for rate control. On Xarelto for anticoagulation. Metop was decreased and dilt was stopped during last admission for soft BPs. Remains tachycardic despite tolerating Toprol XL 50mg po bid, could be from acute illness/fever. Not having a fever currently and still tachycardic though Increase Toprol to add 25mg dose in afternoon Cut Bumex down to 3mg once daily as may be intravascularly volume depleted Monitor on tele (5) Hypotension: Plan: Ongoing chronic issue despite lowering Toprol dose, and last admission stopped aldactone, Entresto, and diltiazem Continue to hold home eplerenone Follow blood pressures especially with increasing Toprol dose again He may need midodrine added-will continue to follow (6) Acute on chronic kidney failure: Plan: With acute kidney injury last admission on CKD stage IV-creatinine continues to improve to 2.9 Holding eplerenone Diurese as able to with blood pressures being soft Nephrology consult - appreciate recs Follow BMP, follow urine output (7) Leukocytosis: Plan: WBC elevated at 13.10 on admission and now down to 9. Viral respiratory BioFire negative, had a low-grade temperature here x 1 early in stay and now with higher tep 38.8 C on 12/24 Chest x-ray without pneumonia. Repeat CXR no PNA 12/25 UA neg for infection, no wounds COVID/Flu/RSV neg 12/25 but will now check a BioFire Had scant hemoptysis on 12/23-follow (8) Elevated troponin: Plan: Demand ischemia from acute CHF Troponin serially trended downward, ECG with some ST depression in anterolateral leads not changed much from prior Appreciate cardiology consultation Echocardiogram without wall motion abnormalities Chest pain on 12/22 is atypical and not related to cardiac chest pain (9) Chronic anemia: Plan: Hemoglobin 10.7-11.0, received 2 doses of IV Venofer last admission which did make him nauseated and had vomiting May need erythropoietin at some point-defer to nephrology Follow CBC Plan Chronic pain-continue tramadol and Flexeril as needed Vitamin D deficiency-continue calcitriol and and vitamin D Gout-no acute issues, continue allopurinol which is renally dosed Code status: full DVT ppx: Xarelto Dispo: Continued stay on PCU/tele Discussed his care with at bedside on 12/25 Admission and Anticipated Discharge Date Admission Date: December 22, 2023 Subjective Pt had a fever overnight, feels very tired. Had a couple loose stools, no abd pain or nausea. Appetite is poor. Denies sore throat or runny nose. Says his eyes are watery from wearing O2. Tele with Afib, rates 100-120s, up to 160s with getting out of bed to the toilet. Physical Exam Constitutional: WD/WN, vitals as above + obese Respiratory: normal respiratory effort; no cough Auscultation: lungs clear to auscultation bilaterally; no crackles, no rhonchi and no wheezes Cardiovascular: Rate/Rhythm: + tachycardic and + irregularly irregular Extremities: + edema (Trace pitting edema legs bilaterally) Gastrointestinal (Abdomen): normal bowel sounds, soft, nontender, no hepatosplenomegaly Skin: no rashes Psychiatric: A+Ox3, euthymic affect Affect: + anxious affect Results & Data Results & Data Vital Signs (Past 12 Hours) Vital Signs Temp Pulse Resp BP Pulse Ox O2 Del Method O2 Flow Rate 12/26/23 11:29 36.4 C L 103 H 30 H 106/73 96 Nasal Cannula 3 12/26/23 08:00 Nasal Cannula 3 12/26/23 07:54 36.8 C 94 H 22 105/77 95 Nasal Cannula 2 12/26/23 02:54 36.9 C 105 H 17 105/77 90 Nasal Cannula 2 Laboratory Results CBC, BMP, BNP, CRP, UA, COVID/Flu/RSV reviewed Diagnostic Findings CXR reviewed image personally PG Care Time/CCT Total # of Minutes Spent Total Time Spent with Patient: Total time spent is greater than 50% in coordination of care (as documented) at patient's floor/unit and/or counseling patient: Coding Level of Care Code 25584 SUB INP/OBS CARE 3/50MIN Diagnoses Acute exacerbation of CHF (congestive heart failure) I50.9 Fever R50.9 Chest pain R07.9 Atrial fibrillation with rapid ventricular response I48.91 Hypotension I95.9 Acute on chronic kidney failure N17.9; N18.9 Leukocytosis D72.829 Elevated troponin R79.89 Chronic anemia D64.9
[2023-12-26] MEDS: METOPROLOL SUCC 25MG EXT REL TAB PO SCH (14:31)
[2023-12-26 15:57] LABS: Adenovirus PCR Not Detected (NotDetected); Bordetella parapertussis PCR Not Detected (NotDetected); Bordetella pertussis PCR Not Detected (NotDetected); Chlamydia pneumoniae PCR Not Detected (NotDetected); Coronavirus 229E PCR Not Detected (NotDetected); Coronavirus CoV-2 (COVID19)PCR Not Detected (NotDetected); Coronavirus HKU1 PCR Not Detected (NotDetected); Coronavirus NL63 PCR Not Detected (NotDetected); Coronavirus OC43PCR Not Detected (NotDetected); Human Metapneumovirus PCR Not Detected (NotDetected); Influenza A PCR Not Detected (NotDetected); Influenza B PCR Not Detected (NotDetected); Mycoplasma pneumoniae PCR Not Detected (NotDetected); Parainfluenza Virus 1 PCR Not Detected (NotDetected); Parainfluenza Virus 2 PCR Not Detected (NotDetected); Parainfluenza Virus 3 PCR Not Detected (NotDetected); Parainfluenza Virus 4 PCR Not Detected (NotDetected); Respiratory Syncytial VirusPCR Not Detected (NotDetected); Rhinovirus/Enterovirus PCR Not Detected (NotDetected)
[2023-12-27 06:46] LABS: Basophils # (auto) 0.05 K/uL (0.00-0.20); Basophils % (auto) 0.5 %; Eosinophils # (auto) 0.19 K/uL (0.00-0.50); Eosinophils % (auto) 2.1 %; Hematocrit (blood only) 36.8 % (42.0-52.0); Hemoglobin 11.5 g/dl (14.0-18.0); Immature Granulocytes # (auto) 0.08 K/uL (0.01-0.20); Immature Granulocytes % (auto) 0.9 %; Lymphocytes # (auto) 0.92 K/uL (1.20-3.40); Lymphocytes % (auto) 10.1 %; Mean Corpuscular Hemoglobin 26.7 pg (25.0-34.0); Mean Corpuscular Hgb Conc 31.3 g/dL (32.0-36.0); Mean Corpuscular Volume 85.4 fL (80.0-100.0); Mean Platelet Volume 10.7 fL (9.4-12.4); Monocytes # (auto) 0.59 K/uL (0.11-0.59); Monocytes % (auto) 6.5 %; Neutrophils # (auto) 7.27 K/uL (1.40-6.50); Neutrophils % (auto) 79.9 %; Platelet Count 252 K/uL (130-400); RDW Coefficient of Variation 17.6 % (11.5-14.5); RDW Standard Deviation 54.6 fL (36.4-46.3); Red Blood Count 4.31 M/uL (4.70-6.10)
[2023-12-27 07:10] LABS: Albumin Globulin Ratio 0.9 (0.9-2); Albumin Level 2.8 gm/dl (3.4-5.0); BUN Creatinine Ratio 20.6 (10-20); Bilirubin,Total 0.8 mg/dl (0.2-1.0); Calcium 9.2 mg/dl (8.6-10.3); Creatinine Clr Calc Pharmacy 26.5 ml/min; Est GFR (African American) 26.5 ml/min; Est GFR (Non-African American) 22.9 ml/min; Magnesium 2.2 mg/dl (1.7-2.4); Total Protein 5.8 gm/dl (6.0-8.3)
[2023-12-27] MEDS: BUMETANIDE 1 MG TAB PO SCH (09:02)
[2023-12-27] MEDS: METOPROLOL SUCC 50MG EXT REL TAB PO SCH (09:03)
--- NOTE | 2023-12-27 17:42 | Hospitalist Progress Note ---
Date of Service December 27, 2023 Assessment & Plan (1) Acute exacerbation of CHF (congestive heart failure): Plan: Recently hospitalized for acute on chronic HFpEF and discharged 2 weeks ago. Discharge weight 107 kg. Home O2 NC - 3L. Progressive SOB prompting ED eval. He was at his high school reunion last weekend and may have overindulged in high sodium foods Admitted for CHF exacerbation. CXR w/ cardiomegaly and pulm edema, BNP elevated at 1328 Echo repeated here similar to previous with preserved EF, moderate LVH, moderate to severe MR, moderately dilated RV with normal function, and moderate to severe pulmonary hypertension, well-seated and functioning prosthetic AV, no wall motion abnormalities Diuresed with IV Bumex initially 3mg bid and then to po Bumex 3mg bid - weight down to 105.8 kg-Bumex lowered today to 3 Mg p.o. once daily Low blood pressures are limiting diuresis and rate control -SBP as low as the 70s systolic on 12/22, prompted gentle bolus Continue to hold home eplerenone with low BPs Renal function actually improved from previous with creatinine down to 2.5- follow BMP and appreciate nephrology consultation (now signed off) Continue Daily weights, strict Is and Os, fluid restriction monitor electrolytes and replete as indicated (2) Fever: Plan: spiked a fever on evening of 12/24 and again on 12/25, watery eyes, fatigue, tachycardia Some loose stool but no abd pain CXR seems improved with less pulm edema from previous, no PNA UA neg for infection, no evidence of wound infections anywhere WBC count normal BCxs [id number] follow Checked COVID/Flu/RSV--> negative Checked resp BioFire-all negative Now with persistent dry cough but did have 1 episode of bloody sputum a couple days ago-ordered incentive spirometry, IV azithromycin, and guaifenesin DM May be acute bacterial bronchitis? Atelectasis? (3) Atrial fibrillation with rapid ventricular response: Plan: Permanent a fib. On metoprolol 100 mg for rate control. On Xarelto for anticoagulation. Metop was decreased and dilt was stopped during last admission for soft BPs. Remained tachycardic despite tolerating Toprol XL 50mg po bid, could be from acute illness/fever. 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 ECG with some ischemic changes but similar to prior EKGs He is on chronic anticoagulation so PE not likely Appreciate cardiology consultation Do not suspect acute coronary syndrome but rather likely secondary to acid reflux/GI issues Stat echo performed which shows preserved EF, moderate LVH, moderate to severe MR, moderately dilated RV with normal function, and moderate to severe pulmonary hypertension, well-seated and functioning prosthetic AV, no wall motion abnormalities Continue Maalox as needed, diuresis, rate control Has not had any further chest pain (5) Hypotension: Plan: Ongoing chronic issue despite lowering Toprol dose, and last admission stopped aldactone, Entresto, and diltiazem Continue to hold home eplerenone Follow blood pressures especially with increasing Toprol dose again He may need midodrine added-will continue to follow (6) Acute on chronic kidney failure: Plan: With acute kidney injury last admission on CKD stage IV-creatinine continues to improve daily to 2.5 Holding eplerenone Diurese as able to with blood pressures being soft Nephrology consult - appreciate recs Follow BMP, follow urine output (7) Leukocytosis: Plan: WBC elevated at 13.10 on admission and now down to normal. Infectious workup as above (8) Elevated troponin: Plan: Demand ischemia from acute CHF Troponin serially trended downward, ECG with some ST depression in anterolateral leads not changed much from prior Appreciate cardiology consultation Echocardiogram without wall motion abnormalities Chest pain on 12/22 is atypical and not related to cardiac chest pain (9) Chronic anemia: Plan: Hemoglobin 10.7-11.5, received 2 doses of IV Venofer last admission which did make him nauseated and had vomiting May need erythropoietin at some point-defer to nephrology Follow CBC Plan Chronic pain-continue tramadol and Flexeril as needed Vitamin D deficiency-continue calcitriol and and vitamin D Gout-no acute issues, continue allopurinol which is renally dosed Code status: full DVT ppx: Xarelto Dispo: Continued stay on PCU/tele, eventual discharge to rehab maybe in the next 1 to 2 days Discussed his care with at bedside on 12/25 Admission and Anticipated Discharge Date Admission Date: December 22, 2023 Subjective Patient reports still feeling very tired although he has not had a fever today. He has a persistent dry cough. He has not been out of bed much except to go to the toilet and back Telemetry with atrial fibrillation with rates in the 90s to low 100s-much improved rate control Physical Exam Constitutional: WD/WN, vitals as above + obese Eyes: No further watery eyes Respiratory: normal respiratory effort and + cough; no labored breathing Auscultation: + rhonchi (Mostly middle to upper lung field); no crackles and no wheezes Cardiovascular: Rate/Rhythm: regular rate and + irregularly irregular Extremities: + edema (Trace pitting edema legs bilaterally) Gastrointestinal (Abdomen): normal bowel sounds, soft, nontender, no hepatosplenomegaly Psychiatric: Orientation: alert and oriented x 3 Results & Data Results & Data Vital Signs (Past 12 Hours) Vital Signs Temp Pulse Pulse Resp BP Pulse Ox O2 Del Method 12/27/23 15:54 36.4 C L 105 H 28 H 101/72 98 BiPAP 12/27/23 13:00 122 H 12/27/23 12:06 36.3 C L 91 H 26 H 93/66 L 95 Nasal Cannula 12/27/23 08:00 Nasal Cannula 12/27/23 07:23 36.4 C L 92 H 20 98/66 L 96 Nasal Cannula O2 Flow Rate 12/27/23 15:54 12/27/23 13:00 12/27/23 12:06 12/27/23 08:00 3 12/27/23 07:23 3 Laboratory Results CBC, CMP, magnesium, blood cultures reviewed PG Care Time/CCT Total # of Minutes Spent Total Time Spent with Patient: Total time spent is greater than 50% in coordination of care (as documented) at patient's floor/unit and/or counseling patient: Coding Level of Care Code 17601 SUB INP/OBS CARE 2/35MIN Diagnoses Acute exacerbation of CHF (congestive heart failure) I50.9 Fever R50.9 Atrial fibrillation with rapid ventricular response I48.91 Chest pain R07.9 Hypotension I95.9 Acute on chronic kidney failure N17.9; N18.9 Leukocytosis D72.829 Elevated troponin R79.89 Chronic anemia D64.9
[2023-12-27] MEDS: AZITHROMYCIN 500 MG in DEXTROSE 5% 250 ML IV ONE (18:17)
[2023-12-27] MEDS: guaiFENesin/DEXTROM SYRUP 200MG/20MG 10ML UDC PO SCH (18:17)
[2023-12-27] MEDS: METOPROLOL SUCC 25MG EXT REL TAB PO SCH (20:22)
--- NOTE | 2023-12-27 21:43 | XRay Report ---
SINGLE VIEW CHEST CLINICAL HISTORY: Cough and fever FINDINGS: An AP, portable, upright chest radiograph is compared to study dated 12/22/2023. The patient is status post midline sternotomy and cardiac valve surgery. The heart is enlarged noting atheroscle rotic calcification of the thoracic aorta. There is pulmonary vascular congestion. Atelectasis is not ed at the lung bases. No airspace consolidation or large pleural effusion is identified. No pneumotho rax is seen. The skeletal structures are osteopenic. The bony thorax is grossly intact. Arthritic zulema nge is seen in the shoulders. IMPRESSION: Cardiomegaly with pulmonary vascular congestion. ACT 112: Negative or not required by law. Electronically signed by: Vargas Perales M.D. 12/26/2023 9:59 AM
[2023-12-28 06:34] LABS: Basophils # (auto) 0.07 K/uL (0.00-0.20); Basophils % (auto) 0.8 %; Eosinophils # (auto) 0.21 K/uL (0.00-0.50); Eosinophils % (auto) 2.4 %; Hematocrit (blood only) 39.7 % (42.0-52.0); Hemoglobin 11.9 g/dl (14.0-18.0); Immature Granulocytes # (auto) 0.07 K/uL (0.01-0.20); Immature Granulocytes % (auto) 0.8 %; Lymphocytes # (auto) 1.17 K/uL (1.20-3.40); Lymphocytes % (auto) 13.1 %; Mean Corpuscular Hemoglobin 26.1 pg (25.0-34.0); Mean Corpuscular Volume 87.1 fL (80.0-100.0); Mean Platelet Volume 10.5 fL (9.4-12.4); Monocytes # (auto) 0.56 K/uL (0.11-0.59); Monocytes % (auto) 6.3 %; Neutrophils # (auto) 6.82 K/uL (1.40-6.50); Neutrophils % (auto) 76.6 %; Platelet Count 295 K/uL (130-400); RDW Coefficient of Variation 17.2 % (11.5-14.5); RDW Standard Deviation 54.8 fL (36.4-46.3); Red Blood Count 4.56 M/uL (4.70-6.10)
[2023-12-28 06:52] LABS: BUN Creatinine Ratio 19.8 (10-20); Calcium 9.2 mg/dl (8.6-10.3); Creatinine Clr Calc Pharmacy 25.6 ml/min; Est GFR (African American) 25.4 ml/min; Est GFR (Non-African American) 21.9 ml/min; Magnesium 2.3 mg/dl (1.7-2.4); Potassium 4.2 mmol/L (3.5-5.1)
[2023-12-28 08:02] VITALS: O2SAT 97
[2023-12-28 10:41] VITALS: RESP 19; TEMP 97.5
--- NOTE | 2023-12-28 11:29 | Cardiology Progress Note ---
Date of Service December 28, 2023 Assessment & Plan (1) Acute exacerbation of CHF (congestive heart failure): Plan: 2. Chest painclean coronaries on prior cardiac catheterization. Responding to antacids likely GI 3. Bioprosthetic AVR previously had mildly elevated transvalvular gradients(PG 42, MG 23), stable on last echo 4. Permanent atrial fibrillation persistent. DCCV 12/2021. No change in symptoms. On anticoagulation 5. Moderate mitral regurgitationmoderate to severe on most recent echo 11/2023 6. CKD-- post nephrectomy, baseline SCr ~3.0 7. Iron deficiency anemia 8. Pulm hypertensionmildly dilated RV/RV dysfunction 9. Class III obesity post gastric bypass, FIFI on CPAP Minimal residual congestion on exam. Rate control improved. Cough, fever improved on Azithromycin Stable renal function Continue current maintenance Bumex 3 mg daily -Continue current Toprol-XL. When home likely back to 50mg BID Anticoagulation with Xarelto When respiratory status improved will consider DIOGO to further assess mitral regurgitation, likely as an outpatient. Appreciate hospital medicine care. Admission and Anticipated Discharge Date Admission Date: December 22, 2023 Subjective Still tired today but no recurrent fevers. Denies breathing difficulty. No chest pain. Telemetry reviewed - persistent AF with improved rate control Review of Systems Review of Systems: All systems reviewed & are unremarkable except as noted in HPI & below Physical Exam Physical Exam: General: Looks tired but no distress HEENT: Sclerae anicteric Lungs: Lungs clear bilaterally Cardiac: Irregularly irregular, crisp bioprosthetic closure, 1/6 Systolic ejection murmur. 2/6 holosystolic murmur at LLSB, apex Vascular: 1+ radial pulses bilaterally Abdomen: Soft, nontender, obese Extremities: Well perfused, no edema Neuro: Nonfocal Psych: Alert orient x3, normal affect and mood Results & Data Vital Signs (Past 12 Hours) Vital Signs Temp Pulse Pulse Resp BP Pulse Ox O2 Del Method 12/28/23 10:36 97.5 F L 97 H 19 107/73 97 Nasal Cannula 12/28/23 09:48 91 H 12/28/23 09:00 Nasal Cannula 12/28/23 07:59 97.3 F L 108 H 20 95/72 L 97 Room Air 12/28/23 03:19 97.7 F 95 H 19 98/69 L 100 Nasal Cannula 12/28/23 00:00 105 H O2 Flow Rate 12/28/23 10:36 3 12/28/23 09:48 12/28/23 09:00 3.5 12/28/23 07:59 12/28/23 03:19 2 12/28/23 00:00 PG Care Time/CCT Total # of Minutes Spent Total Time Spent with Patient: Total time spent is greater than 50% in coordination of care (as documented) at patient's floor/unit and/or counseling patient: Coding Level of Care Code 55598 SUB INP/OBS CARE 2/35MIN Diagnoses Acute exacerbation of CHF (congestive heart failure) I50.9
--- NOTE | 2023-12-28 13:32 | Discharge Summary ---
Discharge Summary Date of Service December 28, 2023 Principal Dx & Hospital Course #1 = Principal Diagnosis (1) Acute exacerbation of CHF (congestive heart failure): Recently hospitalized for acute on chronic HFpEF and discharged 2 weeks ago. Discharge weight 107 kg. Home O2 NC - 3L. Progressive SOB prompting ED eval. He was at his high school reunion last weekend and may have overindulged in high sodium foods Admitted for CHF exacerbation. CXR w/ cardiomegaly and pulm edema, BNP elevated at 1328 Echo repeated here similar to previous with preserved EF, moderate LVH, moderate to severe MR, moderately dilated RV with normal function, and moderate to severe pulmonary hypertension, well-seated and functioning prosthetic AV, no wall motion abnormalities Diuresed with IV Bumex initially 3mg bid and then to po Bumex 3mg bid - weight down to 105.7 kg on the day of discharge-Bumex lowered to 3 Mg p.o. once daily He is chronically low blood pressures are limiting diuresis and rate control - SBP as low as the 70s systolic on 12/22 Discontinued home eplerenone due to low BPs Renal function actually improved from previous with creatinine down to 2.6- follow BMP as an outpatient and appreciate nephrology consultation (now signed off) Continue Daily weights, strict Is and Os, fluid restriction monitor electrolytes and replete as indicated-continues on potassium chloride 10 mEq p.o. twice daily and p.o. magnesium Follow-up with CHF clinic within 1 week after discharge (2) Fever: spiked a fever on evening of 12/24 and again on 12/25, watery eyes, fatigue, tachycardia Some loose stool but no abd pain CXR seems improved with less pulm edema from previous, no PNA, but with atelectasis UA neg for infection, no evidence of wound infections anywhere WBC count normal BCxs drawn-NGTD Checked COVID/Flu/RSV--> negative Checked resp BioFire-all negative With persistent dry cough and 1 episode of bloody sputum a few days ago-ordered incentive spirometry, IV azithromycin, and guaifenesin DM-now much improved May be acute bacterial bronchitis? Atelectasis? Finish out 4 more days of p.o. azithromycin and continue scheduled cough medicine No further fevers and patient feels better (3) Atrial fibrillation with rapid ventricular response: Permanent a fib. On metoprolol 100 mg for rate control. On Xarelto for anticoagulation. Metop was decreased and dilt was stopped during last admission for soft BPs. Remained tachycardic despite tolerating Toprol XL 50mg po bid, could be from acute illness/fever. Fevers have now resolved Increased Toprol to 50 Mg in the morning and 75 at night and heart rates are better controlled in the 90s to 100 Follow-up with cardiology as an outpatient (4) Chest pain: Presented with atypical chest pain at rest that was sharp in nature and lasted 30 minutes, resolved with Maalox and IV Pepcid Serial troponin x 2 lower than previous at 26 and 27. ECG with some ischemic changes but similar to prior EKGs He is on chronic anticoagulation so PE not likely Appreciate cardiology consultation Do not suspect acute coronary syndrome but rather likely secondary to acid reflux/GI issues Stat echo performed which shows preserved EF, moderate LVH, moderate to severe MR, moderately dilated RV with normal function, and moderate to severe pulmonary hypertension, well-seated and functioning prosthetic AV, no wall motion abnormalities Continue Maalox as needed, diuresis, rate control Has not had any further chest pain (5) Hypotension: Ongoing chronic issue despite lowering Toprol dose, and last admission stopped aldactone, Entresto, and diltiazem Discontinued home eplerenone Follow blood pressures especially with increasing Toprol dose again-stable in the 90s systolic He may need midodrine added in the future-will continue to follow (6) Acute on chronic kidney failure: With acute kidney injury last admission on CKD stage IV-creatinine continues to improve daily to 2.6 Discontinued eplerenone Nephrology consult - appreciate recs-follow as an outpatient Follow BMP periodically, follow urine output (7) Leukocytosis: WBC elevated at 13.10 on admission and now down to normal. Infectious workup as above (8) Elevated troponin: Demand ischemia from acute CHF Troponin serially trended downward, ECG with some ST depression in anterolateral leads not changed much from prior Appreciate cardiology consultation Echocardiogram without wall motion abnormalities Chest pain on 12/22 is atypical and not related to cardiac chest pain (9) Chronic anemia: Hemoglobin 10.7-11.5, received 2 doses of IV Venofer last admission which did make him nauseated and had vomiting May need erythropoietin at some point-defer to nephrology as an patient Follow CBC as an outpatient Plan Chronic pain-continue tramadol and Flexeril as needed Vitamin D deficiency-continue calcitriol and and vitamin D Gout-no acute issues, continue allopurinol which is renally dosed Code status: full DVT ppx: Xarelto Dispo: Stable for discharge to [facility] acute rehab Discussed his care with at bedside on 12/25 Notes For Next Care Provider Follow CBC, BMP in 1 week Medication Changes From Visit Discontinued eplerenone Added azithromycin to 50 Mg p.o. once daily x 4 more days Added guaifenesin DM 10 mL p.o. 3 times daily scheduled x 7 days Admission HPI Per Admitting Provider 83 y/o with a PMHx of diastolic HFpREF, CKD GFR < 20, a fib on Xarelto, and gout here for progressive SOB. Patient was hospitalized earlier this month for similar symptoms. Dry weight 107 kgs. Discharged on 3 mg Bumex daily, eplerenone, and PRN metolazone. 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 Patient with progressive SOB. On 3L NC at home. Saw Dr. Ramirez in HF clinic today who recommended ED evaluation. Patient denies any CP, fevers, chill, abdominal symptoms, urinary symptoms, or blood in the urine/stool, nausea, or vomiting. Discharge Exam Constitutional WD/WN, vitals as above + obese Respiratory normal respiratory effort; no labored breathing Auscultation: lungs clear to auscultation bilaterally; no crackles and no wheezes Cardiovascular Rate/Rhythm: regular rate and + irregularly irregular Extremities: + edema (Trace pitting edema legs bilaterally) Gastrointestinal (Abdomen) normal bowel sounds, soft, nontender, no hepatosplenomegaly Psychiatric A+Ox3, euthymic affect Discharge Plan Discharge Items Patient Disposition: Transfer Inpatient Rehab Fac Reason For Visit: ACUTE ON CHF Discharge Diagnosis: Acute on chronic HFpEF Hypotension Acute kidney injury in the setting of CKD stage IV Febrile illness-acute bronchitis Condition on Discharge: Fair Activity: As commented below Lifting: Gradually increase as tolerated Bathing: No limitations Exercise/Sports: Gradually increase as tolerated Non-emergency contact: Primary Care Provider, Director Of People and Substation Mechanic Call non-emergency contact if: you have any medication questions and your symptoms worsen Follow-up/Referrals: Zackery oCchran, [Primary Care Provider] - (Follow-up within 1 to 2 weeks after discharge from rehab) Diet: Heart Healthy and Low Sodium (2gm) Fluids: 1500ml (6 cups) Addtl Attending Provider Instructions: You are admitted with fluid overload due to heart failure and kidney failure. This improved with IV diuretics. Because of your relatively low blood pressure, your eplerenone was stopped. For elevated heart rates, your metoprolol dose was changed to 50 mg in the morning and 75 mg at night. He developed a fever while you are here and an extensive workup found only atelectasis and possible bronchitis as the cause. Please continue on the azithromycin for 4 more days as well as the cough syrup. You had blood cultures drawn which did not have any growth of bacteria. You had a viral respiratory BioFire panel which was negative. Please continue your regular follow-up with nephrology, cardiology, and your PCP. Please follow a BMP at the rehab in 2 to 3 days to assess your kidney function. Call your Primary Care doctor if any of the following symptoms or problems start or get worse: * Shortness of breath or difficulty breathing * Wake up at night short of breath * Chest pain * Cough * Swelling of your hands, feet, or legs * More fatigued or tired with your normal activity * Palpitations - sudden fast heart beats WEIGHT * Weigh yourself every morning after using the bathroom. * Use the same scale. * Wear the same amount of clothing. * Write your weight down on a chart. * Call your Primary Care doctor if you gain more than 2-3 pounds in 1-2 days. MEDICATIONS * Use this discharge instruction sheet for medication instructions. * Take your medications at the time your doctor ordered. * Do not skip a dose of your medicines. * If you miss a dose of medicine, take it as soon as possible, but DO NOT DOUBLE A DOSE. * Read your medicine information when you get home. * Know all of the side effects of your medicine. If in doubt, ask your pharmacist * Call your Primary Care doctor's office if you have any side effects. * Be sure all of your doctors know what medicine and herbs you take (including cold, flu, and herbal medicine). Take the following with you to your follow-up doctor appointments: * Weight Chart * Medication List * List of questions Do not drink excessive alcohol, beer or wine. Pending Studies at Discharge: Yes (Final blood cultures-no growth to date) Stand-Alone Forms: My [facility] Skilled Items Patient informed of condition?: Yes DNR: No Discharge Level of Care: Acute rehab Communicable Disease: No Discharge Prognosis: Improving Lines: None Urinary Catheter: No Medications and DC Order Prescriptions: New azithromycin 250 mg tablet 250 mg PO .Every afternoon 4 Days Qty: 4 0RF metoprolol succinate 25 mg Tablet Extended Release 24 Hr 75 mg PO QPM Qty: 90 0RF metoprolol succinate 50 mg Tablet Extended Release 24 Hr 50 mg PO QAM Qty: 30 0RF dextromethorphan-guaifenesin [Robitussin Cough-Chest Sukhi DM] 5-100 mg/5 mL Liquid 10 ml PO TID 7 Days Qty: 210 0RF Continued cyanocobalamin (vitamin B-12) 1,000 mcg/mL solution 1,000 mcg IM Q90D Qty: 30 0RF metolazone 5 mg tablet 5 mg PO DAILY PRN (Reason: weight gain) Qty: 30 5RF rivaroxaban 15 mg tablet 15 mg PO HS Qty: 90 3RF calcitriol 0.25 mcg capsule 0.5 mcg PO QAM Qty: 180 3RF potassium chloride 10 mEq capsule, extended release 10 meq PO BID Qty: 180 1RF cyclobenzaprine 5 mg tablet 5 mg PO BID PRN (Reason: muscle pain/stiffness) Qty: 60 3RF tramadol 50 mg tablet 50 mg PO BID PRN (Reason: Pain) Qty: 60 0RF allopurinol 100 mg tablet 100 mg PO QAM Qty: 90 3RF amoxicillin 500 mg tablet 2,000 mg PO DIRECTED PRN (Reason: 1 HOUR PRIOR TO DENTAL PROCEDURES) Patient Comments: 2,000 mg PO 1 hour prior to dental procedure.; Rx Instructions: TAKE 4 CAPSULES BY MOUTH 1 HOUR PRIOR TO DENTAL WORK (DME) Portable Oxygen Misc See Rx Instructions .Route Qty: 1 0RF Rx Instructions: As directed docusate sodium 100 mg Capsule 100 mg PO QAM PRN (Reason: Constipation) magnesium 250 mg Tablet 250 mg PO HS cholecalciferol (vitamin D3) [Vitamin D3] 50 mcg (2,000 unit) Capsule 50 mcg PO DAILY bumetanide 2 mg tablet 3 mg PO QAM mupirocin 2 % ointment 1 applic topical TID PRN (Reason: irritation) tamoxifen 20 mg tablet 20 mg PO QAM Discontinued eplerenone 25 mg tablet 25 mg PO QAM Qty: 90 3RF metoprolol succinate 200 mg tablet extended release 24 hr 100 mg PO HS Discharge Orders: Discharge Order- CHF (Routine); Ordered 12/28/23 Ordered By: Shelia Frank Admission Data Admit Date/Time: 12/22/23 20:05 Attending Provider: Shelia Frank Admit Provider: Cristina Huggins Primary Care Provider: Zackery Cochran Other Providers: Mahamed Cuevas; Tania Boogie; Mckay Elliott; [facility] Hospital Stay Data Consultations 12/22/23 18:56 ED Decision to Admit Stat 12/22/23 22:58 Consult Nephrology Routine 12/23/23 10:58 Consult Cardiology Routine Diagnostic Imagining Performed Echocardiogram Pending Results Patient Have Any Pending Studies at Discharge: Yes (Final blood cultures-no growth to date) Discharge Instructions Given to Patient (Per Discharging Provider) You are admitted with fluid overload due to heart failure and kidney failure. This improved with IV diuretics. Because of your relatively low blood pressure, your eplerenone was stopped. For elevated heart rates, your metoprolol dose was changed to 50 mg in the morning and 75 mg at night. He developed a fever while you are here and an extensive workup found only atelectasis and possible bronchitis as the cause. Please continue on the azithromycin for 4 more days as well as the cough syrup. You had blood cultures drawn which did not have any growth of bacteria. You had a viral respiratory BioFire panel which was negative. Please continue your regular follow-up with nephrology, cardiology, and your PCP. Please follow a BMP at the rehab in 2 to 3 days to assess your kidney function. Call your Primary Care doctor if any of the following symptoms or problems start or get worse: * Shortness of breath or difficulty breathing * Wake up at night short of breath * Chest pain * Cough * Swelling of your hands, feet, or legs * More fatigued or tired with your normal activity * Palpitations - sudden fast heart beats WEIGHT * Weigh yourself every morning after using the bathroom. * Use the same scale. * Wear the same amount of clothing. * Write your weight down on a chart. * Call your Primary Care doctor if you gain more than 2-3 pounds in 1-2 days. MEDICATIONS * Use this discharge instruction sheet for medication instructions. * Take your medications at the time your doctor ordered. * Do not skip a dose of your medicines. * If you miss a dose of medicine, take it as soon as possible, but DO NOT DOUBLE A DOSE. * Read your medicine information when you get home. * Know all of the side effects of your medicine. If in doubt, ask your pharmacist * Call your Primary Care doctor's office if you have any side effects. * Be sure all of your doctors know what medicine and herbs you take (including cold, flu, and herbal medicine). Take the following with you to your follow-up doctor appointments: * Weight Chart * Medication List * List of questions Do not drink excessive alcohol, beer or wine. Total Time Total Time Spent Total Time Spent (In Minutes): 35 minutes Total Time Includes: Examination of the Patient, Discharge Planning and Medication Reconciliation Coding Level of Care Code 56204 INP/OBS DISCH >30 MIN Diagnoses Acute exacerbation of CHF (congestive heart failure) I50.9 Fever R50.9 Atrial fibrillation with rapid ventricular response I48.91 Chest pain R07.9 Hypotension I95.9 Acute on chronic kidney failure N17.9; N18.9 Leukocytosis D72.829 Elevated troponin R79.89 Chronic anemia D64.9
[2023-12-28 14:25] VITALS: BP 91/59; PULSE 122
[2023-12-28] MEDS ORDERED: AZITHROMYCIN 250 MG in DEXTROSE 5% 250 ML IV SCH (17:45)
== END 2023-12-28 15:07 | DRG 291 ==
LOC: ED 14:12 → SUATTDRO 20:05 → 2E 20:05

== ENCOUNTER 2024-01-27 16:02 | Inpatient (IN) ==
--- NOTE | 2024-01-27 16:20 | Emergency Department Note ---
Impression & Plan Sepsis, Hypotension, Fever, Weakness, Elevated lactic acid level, Fall, Thrombocytopenia ED Provider Note NAME: MYESHA TRAN Jr AGE: 83 SEX: M : 1940 ARRIVES VIA: Ambulance INFORMANT: [Patient][ems, nursing] ED PROVIDER(S): [Vargas Fernandez MD] CHIEF COMPLAINT: Illness HISTORY OF PRESENT ILLNESS: The patient is a 83-year-old male who fell out of bed today. He does take Xarelto. He was found to be weak and febrile. He was brought by ambulance for evaluation. As per EMS report, patient did fall 6 days ago as well. The patient does complain of chills, he feels thirsty. He feels weak. No injury to his body from his fall out of bed. The patient is a very poor historian. He cannot give me much history for how long he has truly been ill. It appears though based on EMS history that this has been progressing for at least several days. PMHx/PSHx/Social Hx: See Below PHYSICAL EXAM: GENERAL: Patient is in no acute distress. HEENT: No acute trauma, normocephalic atraumatic, mucous membranes dry, no nasal congestion. NECK: No stridor, no adenopathy, no meningismus, trachea is midline. LUNGS: Clear to auscultation bilaterally when listening anterior, no wheeze, no rhonchi, breath sounds equal. HEART: Tachycardic and irregular, no murmurs. ABDOMEN: Soft, nontender, no peritonitis. Obese. EXTREMITIES: No cyanosis, full range of motion of all the joints without pain or difficulty. Mild bilateral pedal edema. NEUROLOGIC: Awake, no acute motor or sensory deficits, no focal weakness. Poor historian. Seems a bit sleepy. SKIN: No jaundice, no diaphoresis. The patient does have some excoriations across his abdomen and extremities, no findings of cellulitis. Groin: No evidence for erythema or cellulitis. DIFFERENTIAL DIAGNOSIS: Bacteremia or sepsis, UTI, pneumonia or bronchitis, cellulitis, viral illness, intracranial injury, among others. EMERGENCY DEPARTMENT PROCEDURES: MEDICAL DECISION MAKING: There is no leukocytosis. The patient does have a mild anemia with a hemoglobin of 12.5. The anemia is baseline when looking back at previous testing. Platelet count was somewhat low at 126. Tickborne testing was ordered. Lyme disease testing was negative. Babesia and anaplasmosis smears were negative. INR was 1.5, likely elevated from his Xarelto use. VBG did not show CO2 retention or acidosis. Renal panel showed a low potassium at 2.9. There was elevation to the creatinine but this was felt baseline looking back at previous testing. Lactic acid level was elevated consistent with infection/potential sepsis. The patient did have some subtle liver enzyme elevations. ECG showed rapid atrial fibrillation with some chronic changes. Cardiac troponin was somewhat elevated. This elevation could be secondary to mismatch from his disease versus cardiac injury. Urinalysis did not show findings of infection. Respiratory bio fire was negative. Chest x-ray did not show pneumonia. Brain CT showed no acute bleed or mass effect. Abdominal and pelvis CT did not show findings of an acute surgical process, no abscess or source for infection found. On exam, there were no findings of cellulitis. Clinically, the patient was tachycardic and febrile. He was hypotensive, he did meet criteria for sepsis. The patient was aggressively managed. He was given 2.5 L of IV saline. This should meet for sepsis criteria IV fluids based on ideal body weight. He received oral potassium and oral Tylenol. He was given IV potassium and IV Zofran. He received IV cefepime and IV doxycycline. He was given a DuoNeb. He was maintained on some nasal cannula O2 supplementation. Eventually, as his blood pressure remained low despite the IV fluids, he was placed on a small dose of IV Levophed. The patient's mental state has improved. He is more awake and interactive. His blood pressure has been improving, his heart rate has decreased. He seems to be responding to treatment. The patient is septic, the source is unclear. I do believe he requires a hospital stay and further workup. I did speak with the patient and case management, the on-call hospitalist was consulted. Prior/Outside records/notes reviewed: Today's EMS notes describing his presentation and transport to this hospital. ECG per my interpretation: Indication was possible sepsis. The ECG shows atrial fibrillation with a rate of 108. There are PVCs present. Patient does have inverted T waves across the anterior and lateral leads. There is no acute ST elevation. There is some ST depression seen in the lateral leads. QTc was 482. Compared to an ECG from 23 December 2023, I see no significant change. Continuous Cardiac Monitoring per my interpretation: An order was placed for continuous cardiac monitoring. The monitor shows a rate of 105 with atrial fibrillation. Imaging/x-ray results per my interpretation: Chest x-ray shows cardiomegaly, no focal pneumonia. Chronic Medical/Social conditions affecting care: Advanced age, obesity. Care/Management discussed with: Case management, the on-call hospitalist. Level of care consideration(s): After review of the information above and other included data: --I believe the patient requires escalation of care to admission Critical Care Note: I have personally spent 53 minutes of critical care time in the direct management of this patient. This includes bedside care, interpretation of diagnostic studies, and testing, discussion with consultants, patient, and family members, and other required patient management activities. This 53 minutes is in excess of all separately billable procedures. DISPOSITION: Admission Past Med/Surg History Problem List (Updated 01/27/24 @ 20:59 by Vargas Fernandez MD) Thrombocytopenia (Acute) Fall (Acute) Elevated lactic acid level (Acute) Weakness (Acute) Fever (Acute) Hypotension (Acute) Sepsis (Acute) Abnormal CT of the abdomen Sepsis Hypotension Chronic anemia Chronic renal insufficiency, stage IV (severe) Iron deficiency Traumatic open wound of left lower leg with delayed healing (Acute) Lower extremity edema Decreased calculated glomerular filtration rate (GFR) Secondary hyperparathyroidism History of aortic valve disease s/p AVR (2006) History of renal cell carcinoma Hypokalemia Chronic venous insufficiency (Chronic) Traumatic open wound of right lower leg (Acute) Wound of right leg Class 3 severe obesity due to excess calories with body mass index (BMI) of 40.0 to 44.9 in adult Gynecomastia, male Family history of breast cancer gene mutation in first degree relative Hx of gynecomastia Left breast lump Nocturnal hypoxemia Complex sleep apnea syndrome Chronic kidney disease, stage 4 (severe) (Chronic) Atrial fibrillation (Chronic) Hypertension (Chronic) Obstructive sleep apnea (Chronic) BIPAP Shortness of breath Acute diastolic (congestive) heart failure Hypermagnesemia Iron deficiency anemia Arm pain Hand numbness Foraminal stenosis of cervical region Vitamin D deficiency Anxiety (Acute) Venous insufficiency (chronic) (peripheral) Morbid obesity with BMI of 40.0-44.9, adult Gout Microcytic anemia Chronic low back pain with right-sided sciatica B12 deficiency Chronic diastolic CHF (congestive heart failure) (Chronic) Hyperlipidemia (Chronic) Medical History Diabetes mellitus Aspiration into respiratory tract Acute kidney injury superimposed on CKD Morbid obesity History of anxiety Hx of gout Hx of rotator cuff tear Difficulty with raising arms without extreme pain, currently in PT Hx of osteoarthritis Hx of impacted cerumen History of COVID-19 01/2021 > "mild" cold symptoms, resolved Prediabetes Kidney stones Hx x7 Renal cell adenocarcinoma s/p nephrectomy Chronic kidney disease, stage III (moderate) CKD (chronic kidney disease), stage III Surgical History (Updated 01/27/24 @ 20:00 by Sushil Dallas MD) H/O aortic valve replacement Hx of cardiac catheterization 11/2020 > no stents History of total bilateral knee replacement History of esophagogastroduodenoscopy (EGD) Hx of colonoscopy Hx of tonsillectomy Hx of cystoscopy w/stone basketing History of left nephrectomy History of spinal surgery Aortic valve replaced bioprosthesis, 2006 History of gastric bypass History of cholecystectomy Family History Mother Breast cancer Lung disease Grandmother (Maternal) Breast cancer Aunt Breast cancer Sister Breast cancer Father Myocardial infarction Arthritis Denies family history of Ovarian cancer Prostate cancer Colorectal cancer Social History Smoking Status: Never smoker Second Hand Exposure: No; Do You Dip or Chew Tobacco: No; Hx Alcohol Use: No Hx Substance Use: No Preferred Language: Burmese Communication Ability: Effective Visual Impairment: No Limitations Hearing Ability: Normal Tire Room Supervisor Required: No Beliefs That Will Affect Care: None marital status: Current Living Situation: Spouse Current Living Situation Comment: Lives w/ , son lives in basement current occupational status: retired 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[employer] Feels Safe at Home: Yes Childhood Exposure to Second-Hand Smoke: Yes Diet: regular caffeine: Yes Dental Care, Regularly: Yes Physical Activity Frequency: Does not Exercise Physical Activity Frequency Comment: Physical activity limited due to medical conditions Seatbelt Use: always Sunscreen Use: No Do you think of yourself as: straight/heterosexual Gender Identity: Male Assistive Devices: Cane and Walker Allergies Allergies Allergy/AdvReac Type Severity Reaction Status Date / Time iron [From Venofer] AdvReac Mild Vomiting Verified 01/05/24 12:26 Iodinated Contrast Media AdvReac Unknown PT ONLY Verified 01/05/24 12:26 [Iodinated Contrast- Oral HAS 1 and IV Dye] KIDNEY, CONTRAINDICATED. Home Meds Home Medications Medication Instructions Recorded Confirmed amoxicillin 500 mg tablet 2,000 mg PO DIRECTED PRN 1 HOUR 11/16/18 01/27/24 PRIOR TO DENTAL PROCEDURES docusate sodium 100 mg capsule 100 mg PO QAM PRN Constipation 05/03/20 01/27/24 cholecalciferol (vitamin D3) 50 50 mcg PO DAILY 07/10/22 01/27/24 mcg (2,000 unit) capsule (Vitamin D3) magnesium 250 mg tablet 250 mg PO HS 07/10/22 01/27/24 bumetanide 2 mg tablet 3 mg PO QAM 12/22/23 01/27/24 mupirocin 2 % topical ointment 1 applic topical TID PRN irritation 12/22/23 01/27/24 tamoxifen 20 mg tablet 20 mg PO QAM 12/22/23 01/27/24 Previous Rx's Medication Instructions Recorded cyanocobalamin (vitamin B-12) 1,000 mcg IM Q90D #30 mL 09/23/22 1,000 mcg/mL injection solution metolazone 5 mg tablet 5 mg PO DAILY PRN weight gain #30 10/23/22 tabs rivaroxaban 15 mg tablet 15 mg PO HS #90 tabs 02/09/23 Portable Oxygen #1 ea 05/25/23 calcitriol 0.25 mcg capsule 0.5 mcg (2 x 0.25 mcg) PO QAM #180 08/11/23 caps potassium chloride 10 mEq 10 meq PO BID #180 caps 09/29/23 capsule,extended release cyclobenzaprine 5 mg tablet 5 mg PO BID PRN muscle 11/20/23 pain/stiffness #60 tabs metoprolol succinate 25 mg 75 mg (3 x 25 mg) PO QPM #90 tabs 12/28/23 tablet,extended release 24 hr metoprolol succinate 50 mg 50 mg PO QAM #30 tabs 12/28/23 tablet,extended release 24 hr tramadol 50 mg tablet 50 mg PO BID PRN Pain #60 tabs 01/14/24 allopurinol 100 mg tablet 100 mg PO QAM #90 tabs 01/22/24 Results & Data (ED) Vital Signs Vital Signs - 24 hr 01/27/24 16:30 01/27/24 16:39 01/27/24 16:39 Temperature 39.6 C H Temperature Source Oral Pulse Rate 115 H 105 H Pulse Rate [Left Brachial] Pulse Rate from SpO2 Sensor 118 H Respiratory Rate 24 33 H Respiratory Effort / Characteristics Labored Blood Pressure 108/79 Blood Pressure [Left Arm] Blood Pressure Mean 88 Blood Pressure Mean [Left Arm] Blood Pressure Position Lying Pulse Oximetry 89 L 91 91 Oxygen Delivery Method Nasal Cannula Nasal Cannula Oxygen Flow Rate 2 2 Sepsis Recent Fever Within 48 Hours Yes Sepsis New/Unexplained Change in Mental Status No Sepsis Action Taken by Nursing Physician Notified Oxygen Flow Rate - Titration Pulse Oximetry Post Tiitration 01/27/24 16:39 01/27/24 17:00 01/27/24 17:00 Temperature Temperature Source Pulse Rate 103 H Pulse Rate [Left Brachial] 105 H Pulse Rate from SpO2 Sensor 117 H Respiratory Rate 33 H 26 H Respiratory Effort / Characteristics Blood Pressure 79/60 L Blood Pressure [Left Arm] 108/79 Blood Pressure Mean 64 Blood Pressure Mean [Left Arm] 88 Blood Pressure Position Pulse Oximetry 91 85 L Oxygen Delivery Method Oxygen Flow Rate Sepsis Recent Fever Within 48 Hours Sepsis New/Unexplained Change in Mental Status Sepsis Action Taken by Nursing Oxygen Flow Rate - Titration Pulse Oximetry Post Tiitration 01/27/24 17:01 01/27/24 17:02 01/27/24 17:27 Temperature Temperature Source Pulse Rate 106 H 101 H Pulse Rate [Left Brachial] Pulse Rate from SpO2 Sensor 110 H Respiratory Rate 22 Respiratory Effort / Characteristics Blood Pressure 82/47 L Blood Pressure [Left Arm] Blood Pressure Mean 69 Blood Pressure Mean [Left Arm] Blood Pressure Position Pulse Oximetry 93 Oxygen Delivery Method Oxygen Flow Rate Sepsis Recent Fever Within 48 Hours Sepsis New/Unexplained Change in Mental Status Sepsis Action Taken by Nursing Oxygen Flow Rate - Titration Pulse Oximetry Post Tiitration 01/27/24 17:30 01/27/24 17:30 01/27/24 17:33 Temperature Temperature Source Pulse Rate 104 H Pulse Rate [Left Brachial] Pulse Rate from SpO2 Sensor 110 H Respiratory Rate 21 Respiratory Effort / Characteristics Blood Pressure 83/46 L 83/46 L Blood Pressure [Left Arm] Blood Pressure Mean 51 51 Blood Pressure Mean [Left Arm] Blood Pressure Position Pulse Oximetry 93 Oxygen Delivery Method Oxygen Flow Rate Sepsis Recent Fever Within 48 Hours Sepsis New/Unexplained Change in Mental Status Sepsis Action Taken by Nursing Oxygen Flow Rate - Titration Pulse Oximetry Post Tiitration 01/27/24 17:42 01/27/24 17:46 01/27/24 17:47 Temperature Temperature Source Pulse Rate 94 H Pulse Rate [Left Brachial] Pulse Rate from SpO2 Sensor 102 H Respiratory Rate 24 Respiratory Effort / Characteristics Blood Pressure 82/58 L Blood Pressure [Left Arm] Blood Pressure Mean 65 Blood Pressure Mean [Left Arm] Blood Pressure Position Pulse Oximetry 98 84 L Oxygen Delivery Method Nasal Cannula Oxygen Flow Rate 4 Sepsis Recent Fever Within 48 Hours Sepsis New/Unexplained Change in Mental Status Sepsis Action Taken by Nursing Oxygen Flow Rate - Titration 6 Pulse Oximetry Post Tiitration 95 01/27/24 17:50 01/27/24 17:56 01/27/24 18:04 Temperature Temperature Source Pulse Rate Pulse Rate [Left Brachial] 100 H Pulse Rate from SpO2 Sensor Respiratory Rate Respiratory Effort / Characteristics Blood Pressure 79/48 L Blood Pressure [Left Arm] 79/48 L Blood Pressure Mean 66 Blood Pressure Mean [Left Arm] 58 Blood Pressure Position Pulse Oximetry 92 Oxygen Delivery Method Oxymask Oxygen Flow Rate 6 Sepsis Recent Fever Within 48 Hours Sepsis New/Unexplained Change in Mental Status Sepsis Action Taken by Nursing Oxygen Flow Rate - Titration 4 Pulse Oximetry Post Tiitration 92 01/27/24 18:06 01/27/24 18:09 01/27/24 18:11 Temperature Temperature Source Pulse Rate 104 H Pulse Rate [Left Brachial] 112 H Pulse Rate from SpO2 Sensor 108 H Respiratory Rate 17 Respiratory Effort / Characteristics Blood Pressure 82/52 L Blood Pressure [Left Arm] 79/48 L Blood Pressure Mean 60 Blood Pressure Mean [Left Arm] 58 Blood Pressure Position Pulse Oximetry 98 Oxygen Delivery Method Oxygen Flow Rate Sepsis Recent Fever Within 48 Hours Sepsis New/Unexplained Change in Mental Status Sepsis Action Taken by Nursing Oxygen Flow Rate - Titration Pulse Oximetry Post Tiitration 01/27/24 18:12 01/27/24 18:15 01/27/24 18:20 Temperature Temperature Source Pulse Rate 102 H 106 H Pulse Rate [Left Brachial] Pulse Rate from SpO2 Sensor 98 H Respiratory Rate 28 H 23 Respiratory Effort / Characteristics Blood Pressure 89/56 L Blood Pressure [Left Arm] Blood Pressure Mean 73 Blood Pressure Mean [Left Arm] Blood Pressure Position Pulse Oximetry 97 Oxygen Delivery Method Oxygen Flow Rate Sepsis Recent Fever Within 48 Hours Sepsis New/Unexplained Change in Mental Status Sepsis Action Taken by Nursing Oxygen Flow Rate - Titration Pulse Oximetry Post Tiitration 01/27/24 18:20 01/27/24 18:21 01/27/24 18:30 Temperature Temperature Source Pulse Rate 101 H Pulse Rate [Left Brachial] Pulse Rate from SpO2 Sensor 108 H Respiratory Rate 23 Respiratory Effort / Characteristics Blood Pressure 89/56 L 92/55 L Blood Pressure [Left Arm] Blood Pressure Mean 73 65 Blood Pressure Mean [Left Arm] Blood Pressure Position Pulse Oximetry 99 Oxygen Delivery Method Oxygen Flow Rate Sepsis Recent Fever Within 48 Hours Sepsis New/Unexplained Change in Mental Status Sepsis Action Taken by Nursing Oxygen Flow Rate - Titration Pulse Oximetry Post Tiitration 01/27/24 18:30 01/27/24 18:30 01/27/24 18:39 Temperature Temperature Source Pulse Rate 83 105 H Pulse Rate [Left Brachial] Pulse Rate from SpO2 Sensor 88 110 H Respiratory Rate 25 H 22 Respiratory Effort / Characteristics Blood Pressure 92/55 L Blood Pressure [Left Arm] Blood Pressure Mean 65 Blood Pressure Mean [Left Arm] Blood Pressure Position Pulse Oximetry 97 97 Oxygen Delivery Method Oxygen Flow Rate Sepsis Recent Fever Within 48 Hours Sepsis New/Unexplained Change in Mental Status Sepsis Action Taken by Nursing Oxygen Flow Rate - Titration Pulse Oximetry Post Tiitration 01/27/24 18:40 01/27/24 18:50 01/27/24 18:50 Temperature Temperature Source Pulse Rate Pulse Rate [Left Brachial] Pulse Rate from SpO2 Sensor Respiratory Rate Respiratory Effort / Characteristics Blood Pressure 105/62 103/71 103/71 Blood Pressure [Left Arm] Blood Pressure Mean 79 81 81 Blood Pressure Mean [Left Arm] Blood Pressure Position Pulse Oximetry Oxygen Delivery Method Oxygen Flow Rate Sepsis Recent Fever Within 48 Hours Sepsis New/Unexplained Change in Mental Status Sepsis Action Taken by Nursing Oxygen Flow Rate - Titration Pulse Oximetry Post Tiitration 01/27/24 18:54 01/27/24 19:00 01/27/24 19:09 Temperature Temperature Source Pulse Rate 100 H 103 H Pulse Rate [Left Brachial] Pulse Rate from SpO2 Sensor 97 H 101 H Respiratory Rate 27 H 29 H Respiratory Effort / Characteristics Blood Pressure 103/68 Blood Pressure [Left Arm] Blood Pressure Mean 77 Blood Pressure Mean [Left Arm] Blood Pressure Position Pulse Oximetry 96 96 Oxygen Delivery Method Oxygen Flow Rate Sepsis Recent Fever Within 48 Hours Sepsis New/Unexplained Change in Mental Status Sepsis Action Taken by Nursing Oxygen Flow Rate - Titration Pulse Oximetry Post Tiitration 01/27/24 19:10 01/27/24 19:12 01/27/24 19:20 Temperature Temperature Source Pulse Rate 97 H Pulse Rate [Left Brachial] Pulse Rate from SpO2 Sensor 103 H Respiratory Rate 23 Respiratory Effort / Characteristics Blood Pressure 91/60 L 84/54 L Blood Pressure [Left Arm] Blood Pressure Mean 64 66 Blood Pressure Mean [Left Arm] Blood Pressure Position Pulse Oximetry 96 Oxygen Delivery Method Oxygen Flow Rate Sepsis Recent Fever Within 48 Hours Sepsis New/Unexplained Change in Mental Status Sepsis Action Taken by Nursing Oxygen Flow Rate - Titration Pulse Oximetry Post Tiitration 01/27/24 19:21 01/27/24 19:29 01/27/24 19:30 Temperature Temperature Source Pulse Rate 96 H 96 H Pulse Rate [Left Brachial] Pulse Rate from SpO2 Sensor 98 H 94 H Respiratory Rate 26 H 29 H Respiratory Effort / Characteristics Blood Pressure 88/55 L Blood Pressure [Left Arm] Blood Pressure Mean 69 Blood Pressure Mean [Left Arm] Blood Pressure Position Pulse Oximetry 95 96 Oxygen Delivery Method Oxygen Flow Rate Sepsis Recent Fever Within 48 Hours Sepsis New/Unexplained Change in Mental Status Sepsis Action Taken by Nursing Oxygen Flow Rate - Titration Pulse Oximetry Post Tiitration 01/27/24 19:30 01/27/24 19:34 01/27/24 19:39 Temperature Temperature Source Pulse Rate 103 H Pulse Rate [Left Brachial] 104 H Pulse Rate from SpO2 Sensor 97 H Respiratory Rate 18 28 H Respiratory Effort / Characteristics Blood Pressure 83/61 L Blood Pressure [Left Arm] 83/61 L Blood Pressure Mean 70 Blood Pressure Mean [Left Arm] 68 Blood Pressure Position Pulse Oximetry 96 96 Oxygen Delivery Method Room Air Oxygen Flow Rate Sepsis Recent Fever Within 48 Hours Sepsis New/Unexplained Change in Mental Status Sepsis Action Taken by Nursing Oxygen Flow Rate - Titration Pulse Oximetry Post Tiitration 01/27/24 19:40 01/27/24 19:45 01/27/24 19:48 Temperature Temperature Source Pulse Rate 104 H 106 H Pulse Rate [Left Brachial] Pulse Rate from SpO2 Sensor 106 H 98 H Respiratory Rate 24 20 Respiratory Effort / Characteristics Blood Pressure 86/57 L Blood Pressure [Left Arm] Blood Pressure Mean 65 Blood Pressure Mean [Left Arm] Blood Pressure Position Pulse Oximetry 95 97 Oxygen Delivery Method Oxygen Flow Rate Sepsis Recent Fever Within 48 Hours Sepsis New/Unexplained Change in Mental Status Sepsis Action Taken by Nursing Oxygen Flow Rate - Titration Pulse Oximetry Post Tiitration 01/27/24 19:51 01/27/24 19:51 01/27/24 19:54 Temperature Temperature Source Pulse Rate 112 H Pulse Rate [Left Brachial] Pulse Rate from SpO2 Sensor 108 H Respiratory Rate 26 H Respiratory Effort / Characteristics Blood Pressure 125/61 125/61 Blood Pressure [Left Arm] Blood Pressure Mean 72 72 Blood Pressure Mean [Left Arm] Blood Pressure Position Pulse Oximetry 97 Oxygen Delivery Method Oxygen Flow Rate Sepsis Recent Fever Within 48 Hours Sepsis New/Unexplained Change in Mental Status Sepsis Action Taken by Nursing Oxygen Flow Rate - Titration Pulse Oximetry Post Tiitration 01/27/24 19:57 01/27/24 20:01 01/27/24 20:03 Temperature Temperature Source Pulse Rate 95 H 94 H Pulse Rate [Left Brachial] Pulse Rate from SpO2 Sensor 92 H 101 H Respiratory Rate 27 H 33 H Respiratory Effort / Characteristics Blood Pressure 84/62 L Blood Pressure [Left Arm] Blood Pressure Mean 72 Blood Pressure Mean [Left Arm] Blood Pressure Position Pulse Oximetry 96 98 Oxygen Delivery Method Oxygen Flow Rate Sepsis Recent Fever Within 48 Hours Sepsis New/Unexplained Change in Mental Status Sepsis Action Taken by Nursing Oxygen Flow Rate - Titration Pulse Oximetry Post Tiitration Home Medications Current Medication List: was personally reviewed by me Laboratory Data Attestation: I reviewed the patient's lab results. 01/27/24 16:14 01/27/24 16:14 Lab Results 01/27/24 01/27/24 01/27/24 Range/Units 16:14 16:14 16:25 WBC 9.61 (4.8-10.8) K/ul RBC 4.61 L (4.70-6.10) M/uL Hgb 12.5 L (14.0-18.0) g/dl Hct 39.9 L (42.0-52.0) % MCV 86.6 (80.0-100.0) fL MCH 27.1 (25.0-34.0) pg MCHC 31.3 L (32.0-36.0) g/dL RDW Std Deviation 57.1 H (36.4-46.3) fL RDW Coeff of Sarah 18.2 H (11.5-14.5) % Plt Count 126 L (130-400) K/uL MPV 10.3 (9.4-12.4) fL Immature Gran % (Auto) 0.5 % Neut % (Auto) 88.1 % Lymph % (Auto) 4.9 % Braxton % (Auto) 5.9 % Eos % (Auto) 0.1 % Baso % (Auto) 0.5 % Neut # (Auto) 8.46 H (1.40-6.50) K/uL Lymph # (Auto) 0.47 L (1.20-3.40) K/uL Braxton # (Auto) 0.57 (0.11-0.59) K/uL Eos # (Auto) 0.01 (0.00-0.50) K/uL Baso # (Auto) 0.05 (0.00-0.20) K/uL Immature Gran # (Auto) 0.05 (0.01-0.20) K/uL PT 15.7 H (9.0-12.0) Seconds INR 1.5 H (0.9-1.1) APTT 32 H (21-31) Seconds PTT Ratio 1.2 VBG pH (7.36-7.41) VBG pCO2 (38-50) mmHg VBG pO2 mmHg VBG HCO3 mmol/L VBG O2 Saturation % VBG Base Excess mEq/L Sodium 143 (136-145) mmol/L Potassium 2.9 L (3.5-5.1) mmol/L Chloride 96 L (98-107) mmol/L Carbon Dioxide 36 H (21-32) mmol/L Anion Gap 11 (3-11) BUN 47 H (6-23) mg/dl Creatinine 2.73 H (0.6-1.4) mg/dl Est Cr Clr Drug Dosing 22.2 ml/min eGFR 22.66 BUN/Creatinine Ratio 17.2 (10-20) Glucose 115 H (70-99(Fasting)) mg/dl Lactate (0.4-2.0) mmol/L Calcium 9.6 (8.6-10.3) mg/dl Magnesium 1.9 (1.7-2.4) mg/dl Total Bilirubin 2.4 H (0.2-1.0) mg/dl Direct Bilirubin 0.5 H (0-0.2) mg/dl AST 20 (13-39) U/L ALT 7 (7-52) U/L Alkaline Phosphatase 60 (34-104) U/L Troponin I High Sens 48.2 H (0-20) pg/ml B-Natriuretic Peptide (0-100) pg/ml Total Protein 6.5 (6.0-8.3) gm/dl Albumin 3.5 (3.4-5.0) gm/dl Procalcitonin 0.11 (0-0.5) ng/ml Random Cortisol mcg/dl Urine Color Yellow Urine Appearance Clear (Clear) Urine pH 6.0 (4.5-7.5) Ur Specific [place] 1.012 (1.000-1.030) Urine Protein 1+ H (Negative) Urine Glucose (UA) Negative (Negative) Urine Ketones Negative (Negative) Urine Blood 2+ H (Negative) Urine Nitrite Negative (Negative) Urine Bilirubin Negative (Negative) Urine Urobilinogen Negative (Negative) Ur Leukocyte Esterase Negative (Negative) Urine WBC (Auto) 0-5 (0-5) /hpf Urine RBC (Auto) >20 H (0-2) /hpf U Hyaline Cast (Auto) 0-2 (0-2) /lpf U Epithel Cells (Auto) 0-2 (0-2) /hpf Urine Bacteria (Auto) None Seen (None Seen) Adenovirus (PCR) (NotDetected) Anaplasma Smear See Comment Babesia Smear See Comment B. pertussis DNA (PCR) (NotDetected) B.parapertussis DNA PCR (NotDetected) Lyme Disease Screen Cancelled Negative C. pneumoniae DNA (PCR) (NotDetected) Coronavirus OC43 (PCR) (NotDetected) Coronavirus HKU1 (PCR) (NotDetected) Coronavirus 229E (PCR) (NotDetected) SARS-CoV-2 (PCR) (NotDetected) Coronavirus NL63 (PCR) (NotDetected) Human Metapneumovir PCR (NotDetected) Influenza Type A (PCR) (NotDetected) Influenza Type B (PCR) (NotDetected) M. pneumoniae (PCR) (NotDetected) Parainfluenza 1 (PCR) (NotDetected) Parainfluenza 2 (PCR) (NotDetected) Parainfluenza 3 (PCR) (NotDetected) Parainfluenza 4 (PCR) (NotDetected) RSV (PCR) (NotDetected) Entero/Rhino (PCR) (NotDetected) 01/27/24 01/27/24 01/27/24 Range/Units 16:36 17:20 17:36 WBC (4.8-10.8) K/ul RBC (4.70-6.10) M/uL Hgb (14.0-18.0) g/dl Hct (42.0-52.0) % MCV (80.0-100.0) fL MCH (25.0-34.0) pg MCHC (32.0-36.0) g/dL RDW Std Deviation (36.4-46.3) fL RDW Coeff of Sarah (11.5-14.5) % Plt Count (130-400) K/uL MPV (9.4-12.4) fL Immature Gran % (Auto) % Neut % (Auto) % Lymph % (Auto) % Braxton % (Auto) % Eos % (Auto) % Baso % (Auto) % Neut # (Auto) (1.40-6.50) K/uL Lymph # (Auto) (1.20-3.40) K/uL Braxton # (Auto) (0.11-0.59) K/uL Eos # (Auto) (0.00-0.50) K/uL Baso # (Auto) (0.00-0.20) K/uL Immature Gran # (Auto) (0.01-0.20) K/uL PT (9.0-12.0) Seconds INR (0.9-1.1) APTT (21-31) Seconds PTT Ratio VBG pH 7.56 H (7.36-7.41) VBG pCO2 41 (38-50) mmHg VBG pO2 54 mmHg VBG HCO3 37 mmol/L VBG O2 Saturation 90.6 % VBG Base Excess 13.2 mEq/L Sodium (136-145) mmol/L Potassium (3.5-5.1) mmol/L Chloride (98-107) mmol/L Carbon Dioxide (21-32) mmol/L Anion Gap (3-11) BUN (6-23) mg/dl Creatinine (0.6-1.4) mg/dl Est Cr Clr Drug Dosing ml/min eGFR BUN/Creatinine Ratio (10-20) Glucose (70-99(Fasting)) mg/dl Lactate 2.4 H* (0.4-2.0) mmol/L Calcium (8.6-10.3) mg/dl Magnesium (1.7-2.4) mg/dl Total Bilirubin (0.2-1.0) mg/dl Direct Bilirubin (0-0.2) mg/dl AST (13-39) U/L ALT (7-52) U/L Alkaline Phosphatase (34-104) U/L Troponin I High Sens (0-20) pg/ml B-Natriuretic Peptide (0-100) pg/ml Total Protein (6.0-8.3) gm/dl Albumin (3.4-5.0) gm/dl Procalcitonin (0-0.5) ng/ml Random Cortisol mcg/dl Urine Color Urine Appearance (Clear) Urine pH (4.5-7.5) Ur Specific [place] (1.000-1.030) Urine Protein (Negative) Urine Glucose (UA) (Negative) Urine Ketones (Negative) Urine Blood (Negative) Urine Nitrite (Negative) Urine Bilirubin (Negative) Urine Urobilinogen (Negative) Ur Leukocyte Esterase (Negative) Urine WBC (Auto) (0-5) /hpf Urine RBC (Auto) (0-2) /hpf U Hyaline Cast (Auto) (0-2) /lpf U Epithel Cells (Auto) (0-2) /hpf Urine Bacteria (Auto) (None Seen) Adenovirus (PCR) Not Detected (NotDetected) Anaplasma Smear Babesia Smear B. pertussis DNA (PCR) Not Detected (NotDetected) B.parapertussis DNA PCR Not Detected (NotDetected) Lyme Disease Screen C. pneumoniae DNA (PCR) Not Detected (NotDetected) Coronavirus OC43 (PCR) Not Detected (NotDetected) Coronavirus HKU1 (PCR) Not Detected (NotDetected) Coronavirus 229E (PCR) Not Detected (NotDetected) SARS-CoV-2 (PCR) Not Detected (NotDetected) Coronavirus NL63 (PCR) Not Detected (NotDetected) Human Metapneumovir PCR Not Detected (NotDetected) Influenza Type A (PCR) Not Detected (NotDetected) Influenza Type B (PCR) Not Detected (NotDetected) M. pneumoniae (PCR) Not Detected (NotDetected) Parainfluenza 1 (PCR) Not Detected (NotDetected) Parainfluenza 2 (PCR) Not Detected (NotDetected) Parainfluenza 3 (PCR) Not Detected (NotDetected) Parainfluenza 4 (PCR) Not Detected (NotDetected) RSV (PCR) Not Detected (NotDetected) Entero/Rhino (PCR) Not Detected (NotDetected) 01/27/24 01/27/24 01/27/24 Range/Units 17:37 18:15 20:00 WBC (4.8-10.8) K/ul RBC (4.70-6.10) M/uL Hgb (14.0-18.0) g/dl Hct (42.0-52.0) % MCV (80.0-100.0) fL MCH (25.0-34.0) pg MCHC (32.0-36.0) g/dL RDW Std Deviation (36.4-46.3) fL RDW Coeff of Sarah (11.5-14.5) % Plt Count (130-400) K/uL MPV (9.4-12.4) fL Immature Gran % (Auto) % Neut % (Auto) % Lymph % (Auto) % Braxton % (Auto) % Eos % (Auto) % Baso % (Auto) % Neut # (Auto) (1.40-6.50) K/uL Lymph # (Auto) (1.20-3.40) K/uL Braxton # (Auto) (0.11-0.59) K/uL Eos # (Auto) (0.00-0.50) K/uL Baso # (Auto) (0.00-0.20) K/uL Immature Gran # (Auto) (0.01-0.20) K/uL PT (9.0-12.0) Seconds INR (0.9-1.1) APTT (21-31) Seconds PTT Ratio VBG pH (7.36-7.41) VBG pCO2 (38-50) mmHg VBG pO2 mmHg VBG HCO3 mmol/L VBG O2 Saturation % VBG Base Excess mEq/L Sodium (136-145) mmol/L Potassium (3.5-5.1) mmol/L Chloride (98-107) mmol/L Carbon Dioxide (21-32) mmol/L Anion Gap (3-11) BUN (6-23) mg/dl Creatinine (0.6-1.4) mg/dl Est Cr Clr Drug Dosing ml/min eGFR BUN/Creatinine Ratio (10-20) Glucose (70-99(Fasting)) mg/dl Lactate 1.2 (0.4-2.0) mmol/L Calcium (8.6-10.3) mg/dl Magnesium (1.7-2.4) mg/dl Total Bilirubin (0.2-1.0) mg/dl Direct Bilirubin (0-0.2) mg/dl AST (13-39) U/L ALT (7-52) U/L Alkaline Phosphatase (34-104) U/L Troponin I High Sens 44.3 H (0-20) pg/ml B-Natriuretic Peptide 1475 H (0-100) pg/ml Total Protein (6.0-8.3) gm/dl Albumin (3.4-5.0) gm/dl Procalcitonin (0-0.5) ng/ml Random Cortisol 22.77 mcg/dl Urine Color Urine Appearance (Clear) Urine pH (4.5-7.5) Ur Specific [place] (1.000-1.030) Urine Protein (Negative) Urine Glucose (UA) (Negative) Urine Ketones (Negative) Urine Blood (Negative) Urine Nitrite (Negative) Urine Bilirubin (Negative) Urine Urobilinogen (Negative) Ur Leukocyte Esterase (Negative) Urine WBC (Auto) (0-5) /hpf Urine RBC (Auto) (0-2) /hpf U Hyaline Cast (Auto) (0-2) /lpf U Epithel Cells (Auto) (0-2) /hpf Urine Bacteria (Auto) (None Seen) Adenovirus (PCR) (NotDetected) Anaplasma Smear Babesia Smear B. pertussis DNA (PCR) (NotDetected) B.parapertussis DNA PCR (NotDetected) Lyme Disease Screen C. pneumoniae DNA (PCR) (NotDetected) Coronavirus OC43 (PCR) (NotDetected) Coronavirus HKU1 (PCR) (NotDetected) Coronavirus 229E (PCR) (NotDetected) SARS-CoV-2 (PCR) (NotDetected) Coronavirus NL63 (PCR) (NotDetected) Human Metapneumovir PCR (NotDetected) Influenza Type A (PCR) (NotDetected) Influenza Type B (PCR) (NotDetected) M. pneumoniae (PCR) (NotDetected) Parainfluenza 1 (PCR) (NotDetected) Parainfluenza 2 (PCR) (NotDetected) Parainfluenza 3 (PCR) (NotDetected) Parainfluenza 4 (PCR) (NotDetected) RSV (PCR) (NotDetected) Entero/Rhino (PCR) (NotDetected) Administered Medications Discontinued Medications Acetaminophen (Acetaminophen 500 Mg Tab) 1,000 mg PO NOW STA Stop: 01/27/24 16:14 Last Admin: 01/27/24 16:32 Dose: 1,000 mg Documented By: BOOGIE Albuterol (Albut/Ipratrop 3mg/0.5mg Neb 3 Ml Vial) 3 ml NEB NOW STA; Protocol Stop: 01/27/24 17:10 Last Admin: 01/27/24 17:32 Dose: 3 ml Documented By: ERNESTINE Sodium Chloride (Nss) 1,000 mls @ 999 mls/hr IV .Q1H1M BEHZAD Stop: 01/27/24 18:15 Last Admin: 01/27/24 18:26 Dose: Not Given Documented By: Infusion: 01/27/24 17:54 Dose: Infused Documented By: Admin: 01/27/24 16:32 Dose: 999 mls/hr Documented By: BOOGIE Cefepime HCl (Maxipime 2000mg) 2,000 mg in 20 mls @ 5 mls/min IV NOW STA; Protocol Stop: 01/27/24 16:16 Last Admin: 01/27/24 16:32 Dose: 5 mls/min Documented By: BOOGIE Doxycycline Hyclate 100 mg/ (Dextrose) 100 mls @ 50 mls/hr IV NOW STA Stop: 01/27/24 18:42 Last Infusion: 01/27/24 19:31 Dose: Infused Documented By: Admin: 01/27/24 17:18 Dose: 50 mls/hr Documented By: BOOGIE Potassium Chloride (K Jimi / Wtr) 10 meq in 100 mls @ 100 mls/hr IV ONE ONE; Protocol Stop: 01/27/24 17:54 Last Infusion: 01/27/24 18:32 Dose: Infused Documented By: Admin: 01/27/24 17:28 Dose: 100 mls/hr Documented By: ERNESTINE Sodium Chloride (Nss) 1,000 mls @ 999 mls/hr IV .Q1H1M ONE Stop: 01/27/24 18:02 Last Infusion: 01/27/24 18:32 Dose: Infused Documented By: Admin: 01/27/24 17:21 Dose: 999 mls/hr Documented By: BOOGIE Norepinephrine Bitartrate (Levophed/D5w) 4 mg in 250 mls @ 20.231 mls/hr IV .[id number] BEHZAD; Protocol Stop: 02/26/24 18:14 Last Admin: 01/27/24 18:19 Dose: 0.05 mcg/kg/min, 20.2 mls/hr Documented By: BOOGIE Co-signed By: ERNESTINE Sodium Chloride (Nss) 500 mls @ 999 mls/hr IV .Q31M ONE Stop: 01/27/24 18:39 Last Infusion: 01/27/24 19:31 Dose: Infused Documented By: Admin: 01/27/24 18:31 Dose: 999 mls/hr Documented By: BOOGIE Midodrine (Midodrine Hcl 10 Mg Tab) 10 mg PO ONE STA Stop: 01/27/24 19:41 Last Admin: 01/27/24 20:21 Dose: 10 mg Documented By: BOOGIE Miscellaneous (Stat Iv Infusion Titration Per Protocol) 1 each N/A NOW STA Stop: 01/27/24 18:07 Last Admin: 01/27/24 18:31 Dose: Not Given Documented By: BOOGIE Ondansetron HCl (Ondansetron Inj 2 Mg/Ml 2 Ml Vial) 4 mg IV NOW STA Stop: 01/27/24 16:14 Last Admin: 01/27/24 16:32 Dose: 4 mg Documented By: BOOGIE Potassium Chloride (Potassium Chloride Crtab 20 Meq Tabcr) 20 meq PO NOW STA Stop: 01/27/24 16:56 Last Admin: 01/27/24 17:28 Dose: 20 meq Documented By: E Imaging Data Radiologist's Impression: Chest X-Ray 01/27/24 16:13 XR chest 1V portable CLINICAL HISTORY: Sepsis COMPARISON STUDY: Chest CT December 21, 2017. Chest radiograph December 26, 2023. 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 Cardiomegaly is unchanged. There is no evidence for pulmonary edema. There is no pneumothorax or pleural effusion. There is no consolidation to suggest pneumonia. IMPRESSION: No acute cardiopulmonary findings. Cardiomegaly. ACT 112: Negative or not required by law. Electronically signed by: Eddy Bashir M.D. 01/27/2024 4:[address] 01/27/24 16:13 CT SCAN OF THE BRAIN WITHOUT IV CONTRAST CLINICAL HISTORY: Fall. COMPARISON STUDY: CT of the brain dated 04/12/2013. TECHNIQUE: Unenhanced axial CT scan of the brain is performed from the vertex to the skull base. A dose lowering technique was utilized adhering to the principles of ALARA. FINDINGS: Brain parenchyma: There is age-related involutional change noting mild subcortical and periventricular microangiopathic disease. There is no hemorrhage, mass effect, or evidence of acute territorial ischemia by CT criteria. Munoz-white matter differentiation is preserved. No extra-axial fluid collection is seen. Ventricles, sulci, cisterns: Prominent secondary to involutional change. Intracranial vasculature: There is atherosclerotic calcification of the cavernous carotid and vertebral arteries. Calvarium: Unremarkable. Sinuses and mastoids: The visualized paranasal sinuses are clear. The mastoid air cells are well pneumatized. Orbits: The bony orbits are grossly intact. IMPRESSION: There is no hemorrhage, mass effect, or evidence of acute territorial ischemia by CT criteria. ACT 112: Negative or not required by law. Electronically signed by: Vargas Perales M.D. 01/27/2024 4:58 PM Abdomen/Pelvis CT 01/27/24 16:44 CT OF THE ABDOMEN AND PELVIS WITHOUT CONTRAST CLINICAL HISTORY: poss divertic or maybe abscess, fever, confusion COMPARISON STUDY: CT of the abdomen August 20, 2017. TECHNIQUE: Axial images of the abdomen and pelvis were obtained without IV contrast. Images were reviewed in the axial, sagittal, and coronal planes. Automated exposure control was utilized for the study. A dose lowering technique was utilized adhering to the principles of ALARA. FINDINGS: There is a trace right pleural effusion. The heart is moderately enlarged. Ground glass opacities within the right lower lobe are present. No pneumatosis, free air or portal venous gas is present. There is no abnormality within the left nephrectomy bed. There is no right hydronephrosis. No urinary calculi are identified. Bladder wall thickening is likely chronic. Multiple water attenuation right renal lesions are suboptimally assessed on this unenhanced exam but likely reflect cysts. There is a 1.4 cm hyperdense nodule adjacent to the lower pole of the right kidney on image 177 of 357. There is no evidence for a bowel obstruction. There is no biliary ductal dilatation status post cholecystectomy. Multiple hypodense hepatic lesions are suboptimally assessed on this exam but were likely present on prior CT. These are likely benign. Spleen, adrenal glands and pancreas are unremarkable. The appendix is normal. There is no evidence for a bowel obstruction. Scattered colonic diverticula are noted. There is no evidence for acute diverticulitis. No lymphadenopathy. There are no fluid collection. There are no acute fractures within the visualized skeletal structures. Status post Juan-en-Y gastric bypass. IMPRESSION: 1. Ground glass opacities within the right lower lobe which could reflect an infectious process or atelectasis. Trace right pleural effusion. 2. No evidence for a bowel obstruction status post Juan-en-Y gastric bypass. 3. Colonic diverticulosis. No evidence for acute diverticulitis. 4. 1.4 cm hypodense nodule adjacent to the lower pole of the right kidney. This could reflect a proteinaceous cyst or a solid lesion. Nonemergent renal ultrasound is recommended for further evaluation. ACT 112: Negative or not required by law. Electronically signed by: Eddy Bashir M.D. 01/27/2024 5:12 PM Discharge Plan Visit Data Chief Complaint: Fall Stated Complaint: Fall, Generalized Weakness ED Provider: Vargas Fernandez Discharge Problem: Sepsis, Hypotension, Fever, Weakness, Elevated lactic acid level, Fall, Thrombocytopenia Patient Disposition: Admitted As Inpatient Condition: Serious Forms Stand Alone Forms: My payByMobile Prescriptions Prescriptions: No Action cyanocobalamin (vitamin B-12) 1,000 mcg/mL solution 1,000 mcg IM Q90D Qty: 30 0RF metolazone 5 mg tablet 5 mg PO DAILY PRN (Reason: weight gain) Qty: 30 5RF rivaroxaban 15 mg tablet 15 mg PO HS Qty: 90 3RF calcitriol 0.25 mcg capsule 0.5 mcg PO QAM Qty: 180 3RF potassium chloride 10 mEq capsule, extended release 10 meq PO BID Qty: 180 1RF cyclobenzaprine 5 mg tablet 5 mg PO BID PRN (Reason: muscle pain/stiffness) Qty: 60 3RF allopurinol 100 mg tablet 100 mg PO QAM Qty: 90 3RF amoxicillin 500 mg tablet 2,000 mg PO DIRECTED PRN (Reason: 1 HOUR PRIOR TO DENTAL PROCEDURES) Patient Comments: 2,000 mg PO 1 hour prior to dental procedure.; Rx Instructions: TAKE 4 CAPSULES BY MOUTH 1 HOUR PRIOR TO DENTAL WORK (DME) Portable Oxygen Misc See Rx Instructions .Route Qty: 1 0RF Rx Instructions: As directed tramadol 50 mg tablet 50 mg PO BID PRN (Reason: Pain) Qty: 60 0RF docusate sodium 100 mg Capsule 100 mg PO QAM PRN (Reason: Constipation) magnesium 250 mg Tablet 250 mg PO HS cholecalciferol (vitamin D3) [Vitamin D3] 50 mcg (2,000 unit) Capsule 50 mcg PO DAILY bumetanide 2 mg tablet 3 mg PO QAM mupirocin 2 % ointment 1 applic topical TID PRN (Reason: irritation) tamoxifen 20 mg tablet 20 mg PO QAM metoprolol succinate 50 mg Tablet Extended Release 24 Hr 50 mg PO QAM Qty: 30 0RF metoprolol succinate 25 mg Tablet Extended Release 24 Hr 75 mg PO QPM Qty: 90 0RF Referrals Referrals: Zackery Cochran DO [Primary Care Provider] - Discharge Problem: Sepsis Qualifiers: Sepsis type: sepsis due to unspecified organism Sepsis acute organ dysfunction status: unspecified Qualified Code(s): A41.9 - Sepsis, unspecified organism Hypotension Qualifiers: Hypotension type: unspecified hypotension type Qualified Code(s): I95.9 - Hypotension, unspecified Fever Qualifiers: Fever type: unspecified Qualified Code(s): R50.9 - Fever, unspecified Fall Qualifiers: Encounter type: initial encounter Qualified Code(s): W19.XXXA - Unspecified fall, initial encounter
[2024-01-27] MEDS: ACETAMINOPHEN 500 MG TAB PO STA (16:32)
[2024-01-27] MEDS: SODIUM CHLORIDE 0.9% 1,000 ML IV SCH (16:32)
[2024-01-27] MEDS: CEFEPIME 2000MG 2,000 MG/20 ML SYR IV STA (16:32)
[2024-01-27] MEDS: ONDANSETRON INJ 2 MG/ML 2 ML VIAL IV STA (16:32)
[2024-01-27 16:33] LABS: Basophils # (auto) 0.05 K/uL (0.00-0.20); Basophils % (auto) 0.5 %; Eosinophils # (auto) 0.01 K/uL (0.00-0.50); Eosinophils % (auto) 0.1 %; Hematocrit (blood only) 39.9 % (42.0-52.0); Hemoglobin 12.5 g/dl (14.0-18.0); Immature Granulocytes # (auto) 0.05 K/uL (0.01-0.20); Immature Granulocytes % (auto) 0.5 %; Lymphocytes # (auto) 0.47 K/uL (1.20-3.40); Lymphocytes % (auto) 4.9 %; Mean Corpuscular Hemoglobin 27.1 pg (25.0-34.0); Mean Corpuscular Hgb Conc 31.3 g/dL (32.0-36.0); Mean Corpuscular Volume 86.6 fL (80.0-100.0); Mean Platelet Volume 10.3 fL (9.4-12.4); Monocytes # (auto) 0.57 K/uL (0.11-0.59); Monocytes % (auto) 5.9 %; Neutrophils # (auto) 8.46 K/uL (1.40-6.50); Neutrophils % (auto) 88.1 %; Platelet Count 126 K/uL (130-400); RDW Coefficient of Variation 18.2 % (11.5-14.5); RDW Standard Deviation 57.1 fL (36.4-46.3); Red Blood Count 4.61 M/uL (4.70-6.10); White Blood Count 9.61 K/ul (4.8-10.8)
[2024-01-27 16:40] LABS: Appearance Urine Clear (Clear); Bacteria Urine Automated None Seen (None Seen); Bilirubin Urine Negative (Negative); Blood Urine 2+ (Negative); Cast Urine Automated 0-2 /lpf (0-2); Color Urine Yellow; Epithelial Cell Urine Auto 0-2 /hpf (0-2); Glucose Urine UA Negative (Negative); Ketones Urine Negative (Negative); Leukocyte Esterase Urine Negative (Negative); Nitrite Urine Negative (Negative); Protein Urine 1+ (Negative); RBC Urine Automated >20 /hpf (0-2); Specific Gravity Urine 1.012 (1.000-1.030); Urobilinogen Urine Negative (Negative); WBC Urine Automated 0-5 /hpf (0-5)
[2024-01-27 16:50] LABS: Albumin Level 3.5 gm/dl (3.4-5.0); BUN Creatinine Ratio 17.2 (10-20); Bilirubin Direct 0.5 mg/dl (0-0.2); Bilirubin,Total 2.4 mg/dl (0.2-1.0); Calcium 9.6 mg/dl (8.6-10.3); Creatinine Clr Calc Pharmacy 22.2 ml/min; Magnesium 1.9 mg/dl (1.7-2.4); Potassium 2.9 mmol/L (3.5-5.1); Total Protein 6.5 gm/dl (6.0-8.3)
--- NOTE | 2024-01-27 16:51 | XRay Report ---
XR chest 1V portable CLINICAL HISTORY: Sepsis COMPARISON STUDY: Chest CT December 21, 2017. Chest radiograph December 26, 2023. 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 Cardiomegaly is unchanged. There is no evidence for pulmonary edema. There is no pneumothorax or pleural effusion. There is no consolidation to suggest pneumonia. IMPRESSION: No acute cardiopulmonary findings. Cardiomegaly. ACT 112: Negative or not required by law. Electronically signed by: Eddy Bashir M.D. 01/27/2024 4:50 PM
[2024-01-27 16:56] LABS: Troponin I High Sensitivity 48.2 pg/ml (0-20)
[2024-01-27 16:59] LABS: INR 1.5 (0.9-1.1); Partial Thromboplastin Ratio 1.2; Partial Thromboplastin Time 32 Seconds (21-31); Prothrombin Time 15.7 Seconds (9.0-12.0)
--- NOTE | 2024-01-27 16:59 | CT Scan Report ---
CT SCAN OF THE BRAIN WITHOUT IV CONTRAST CLINICAL HISTORY: Fall. COMPARISON STUDY: CT of the brain dated 04/12/2013. TECHNIQUE: Unenhanced axial CT scan of the brain is performed from the vertex to the skull base. A do se lowering technique was utilized adhering to the principles of ALARA. FINDINGS: Brain parenchyma: There is age-related involutional change noting mild subcortical and periventricula r microangiopathic disease. There is no hemorrhage, mass effect, or evidence of acute territorial isc hemia by CT criteria. Munoz-white matter differentiation is preserved. No extra-axial fluid collection is seen. Ventricles, sulci, cisterns: Prominent secondary to involutional change. Intracranial vasculature: There is atherosclerotic calcification of the cavernous carotid and vertebr al arteries. Calvarium: Unremarkable. Sinuses and mastoids: The visualized paranasal sinuses are clear. The mastoid air cells are well pneu matized. Orbits: The bony orbits are grossly intact. IMPRESSION: There is no hemorrhage, mass effect, or evidence of acute territorial ischemia by CT jordan wyatt. ACT 112: Negative or not required by law. Electronically signed by: Vargas Perales M.D. 01/27/2024 4:58 PM
--- NOTE | 2024-01-27 17:13 | CT Scan Report ---
CT OF THE ABDOMEN AND PELVIS WITHOUT CONTRAST CLINICAL HISTORY: poss divertic or maybe abscess, fever, confusion COMPARISON STUDY: CT of the abdomen August 20, 2017. TECHNIQUE: Axial images of the abdomen and pelvis were obtained without IV contrast. Images were revi ewed in the axial, sagittal, and coronal planes. Automated exposure control was utilized for the judah dy. A dose lowering technique was utilized adhering to the principles of ALARA. FINDINGS: There is a trace right pleural effusion. The heart is moderately enlarged. Ground glass opa cities within the right lower lobe are present. No pneumatosis, free air or portal venous gas is pres ent. There is no abnormality within the left nephrectomy bed. There is no right hydronephrosis. No ur inary calculi are identified. Bladder wall thickening is likely chronic. Multiple water attenuation r ight renal lesions are suboptimally assessed on this unenhanced exam but likely reflect cysts. There is a 1.4 cm hyperdense nodule adjacent to the lower pole of the right kidney on image 177 of 357. The re is no evidence for a bowel obstruction. There is no biliary ductal dilatation status post cholecys tectomy. Multiple hypodense hepatic lesions are suboptimally assessed on this exam but were likely pr esent on prior CT. These are likely benign. Spleen, adrenal glands and pancreas are unremarkable. The appendix is normal. There is no evidence for a bowel obstruction. Scattered colonic diverticula are noted. There is no evidence for acute diverticulitis. No lymphadenopathy. There are no fluid collecti on. There are no acute fractures within the visualized skeletal structures. Status post Juan-en-Y gas tric bypass. IMPRESSION: 1. Ground glass opacities within the right lower lobe which could reflect an infectious process or at electasis. Trace right pleural effusion. 2. No evidence for a bowel obstruction status post Juan-en-Y gastric bypass. 3. Colonic diverticulosis. No evidence for acute diverticulitis. 4. 1.4 cm hypodense nodule adjacent to the lower pole of the right kidney. This could reflect a prote inaceous cyst or a solid lesion. Nonemergent renal ultrasound is recommended for further evaluation. ACT 112: Negative or not required by law. Electronically signed by: Eddy Bashir M.D. 01/27/2024 5:12 PM
[2024-01-27] MEDS: DOXYCYCLINE HYCLATE 100 MG in DEXTROSE 5% MINI-B 100 ML IV STA (17:18)
[2024-01-27] MEDS: SODIUM CHLORIDE 0.9% 1,000 ML IV ONE (17:21)
[2024-01-27] MEDS: POTASSIUM CHLORIDE / WTR 10 MEQ/100 ML PLCT IV ONE (17:28)
[2024-01-27] MEDS: POTASSIUM CHLORIDE CRTAB 20 MEQ TABCR PO STA (17:28)
[2024-01-27] MEDS: ALBUT/IPRATROP 3MG/0.5MG NEB 3 ML VIAL NEB STA (17:32)
[2024-01-27 17:43] LABS: Base Excess VBG 13.2 mEq/L; HCO3 VBG 37 mmol/L; Oxygen Saturation VBG 90.6 %; PCO2 VBG 41 mmHg (38-50); PO2 VBG 54 mmHg; pH VBG 7.56 (7.36-7.41)
[2024-01-27] MEDS: NOREPINEPHRINE/D5W 4 MG/250 ML PLCT IV SCH (18:19)
[2024-01-27 18:26] LABS: Adenovirus PCR Not Detected (NotDetected); Bordetella parapertussis PCR Not Detected (NotDetected); Bordetella pertussis PCR Not Detected (NotDetected); Chlamydia pneumoniae PCR Not Detected (NotDetected); Coronavirus 229E PCR Not Detected (NotDetected); Coronavirus CoV-2 (COVID19)PCR Not Detected (NotDetected); Coronavirus HKU1 PCR Not Detected (NotDetected); Coronavirus NL63 PCR Not Detected (NotDetected); Coronavirus OC43PCR Not Detected (NotDetected); Human Metapneumovirus PCR Not Detected (NotDetected); Influenza A PCR Not Detected (NotDetected); Influenza B PCR Not Detected (NotDetected); Mycoplasma pneumoniae PCR Not Detected (NotDetected); Parainfluenza Virus 1 PCR Not Detected (NotDetected); Parainfluenza Virus 2 PCR Not Detected (NotDetected); Parainfluenza Virus 3 PCR Not Detected (NotDetected); Parainfluenza Virus 4 PCR Not Detected (NotDetected); Respiratory Syncytial VirusPCR Not Detected (NotDetected); Rhinovirus/Enterovirus PCR Not Detected (NotDetected)
--- NOTE | 2024-01-27 18:29 | History & Physical Report ---
Date of Service January 27, 2024 Assessment & Plan (1) Sepsis: Plan: Possible diagnosis and would presume until infection ruled out, notably also having fevers last admission without any definitive infection at that time although treated for atypical pneumonia Possible PNA on CT with RLL although certainly not definitive and procalcitonin negative Possibly from skin with multiple excoriated areas but no over cellulitis Anaplasmosis and Babesia PCR pending but smear negative MRSA nasal swab pending UA with blood and RBCs alone however regardless will send for culture Follow up blood cultures 30cc/kg IV fluids given due to ongoing hypotension although this appears to be an ongoing issue, MAP > 65 off Levophed and lactate resolved therefore will admit to PCU off Levophed and monitor closely Start midodrine 10mg TID Cortisol random ordered Empiric antibiotics with cefepime + doxycycline to cover both tick borne illness and PNA (2) Abnormal CT of the abdomen: Plan: Renal US ordered to assess hypodense nodule seen on CT, microscopic hematuria on UA ?new RCC causing recurrent fevers (3) Fall: Plan: No apparent injuries from (4) Hypotension: Plan: Clinically dry on admission. IV fluid bolus given in ER Hold metoprolol, bumex Start midodrine 10mg TID (notably being consider last admission in addition) (5) Chronic diastolic CHF (congestive heart failure): Plan: Clinically dry on admission, recently discharged on December 27, BNP pending (6) Chronic renal insufficiency, stage IV (severe): Plan: At baseline, continue to monitor (7) Atrial fibrillation: Plan: Holding metoprolol due to hypotension, consider restarting at lower than home dose if needed for rate control tomorrow Continue Xarelto for anticoagulation (8) Obstructive sleep apnea: Plan: CPAP HS Plan VTE Prophylaxis - Xarelto Diet - low Na Disposition - admit to PCU Admission and Anticipated Discharge Date Admission Date: January 27, 2024 History of Present Illness Chief Complaint: Fall Primary Care Provider: Zackery Cochran DO [place] Antoine is an 83 year old male who presents to the ER following a fall out of bed around noon today. After falling out of bed he was unable to ambulate therefore was brought in by EMS. No dizziness, lightheadedness, chest pain or new shortness of breath prior to falling. He denies any new symptoms since last admission. He has chronic shortness of breath, cough and nasal congestion but this is not new. No fever or chills although notably his temperature was 39.6 degrees celsius in the ER. No urinary symptoms. No nausea, vomiting, abdominal pain or diarrhea. No neck pain. He had a mild headache which has now resolved with acetaminophen given in the ER. He notes his diuretics and metoprolol was increased last admission and but has not changed since then. In addition to today he fell last by sitting on the front edge of his walker and sliding backwards. He denies any symptoms prior to falling on this occasion in addition. Allergies Allergy/AdvReac Type Severity Reaction Status Date / Time iron [From Venofer] AdvReac Mild Vomiting Verified 01/05/24 12:26 Iodinated Contrast Media AdvReac Unknown PT ONLY Verified 01/05/24 12: [Iodinated Contrast- Oral HAS 1 and IV Dye] KIDNEY, CONTRAINDICATED. Home Medications Medication Instructions Recorded Confirmed Type amoxicillin 500 mg tablet 2,000 mg PO DIRECTED PRN 1 HOUR 11/16/18 01/27/24 History PRIOR TO DENTAL PROCEDURES docusate sodium 100 mg capsule 100 mg PO QAM PRN Constipation 05/03/20 01/27/24 History cholecalciferol (vitamin D3) 50 50 mcg PO DAILY 07/10/22 01/27/24 History mcg (2,000 unit) capsule (Vitamin D3) magnesium 250 mg tablet 250 mg PO HS 07/10/22 01/27/24 History cyanocobalamin (vitamin B-12) 1,000 mcg IM Q90D #30 mL 09/23/22 01/27/24 Rx 1,000 mcg/mL injection solution metolazone 5 mg tablet 5 mg PO DAILY PRN weight gain #30 10/23/22 01/27/24 Rx tabs rivaroxaban 15 mg tablet 15 mg PO HS #90 tabs 02/09/23 01/27/24 Rx Portable Oxygen #1 ea 05/25/23 01/27/24 Rx calcitriol 0.25 mcg capsule 0.5 mcg (2 x 0.25 mcg) PO QAM #180 08/11/23 01/27/24 Rx caps potassium chloride 10 mEq 10 meq PO BID #180 caps 09/29/23 01/27/24 Rx capsule,extended release cyclobenzaprine 5 mg tablet 5 mg PO BID PRN muscle 11/20/23 01/27/24 Rx pain/stiffness #60 tabs bumetanide 2 mg tablet 3 mg PO QAM 12/22/23 01/27/24 History mupirocin 2 % topical ointment 1 applic topical TID PRN irritation 12/22/23 01/27/24 History tamoxifen 20 mg tablet 20 mg PO QAM 12/22/23 01/27/24 History metoprolol succinate 25 mg 75 mg (3 x 25 mg) PO QPM #90 tabs 12/28/23 01/27/24 Rx tablet,extended release 24 hr metoprolol succinate 50 mg 50 mg PO QAM #30 tabs 12/28/23 01/27/24 Rx tablet,extended release 24 hr tramadol 50 mg tablet 50 mg PO BID PRN Pain #60 tabs 01/14/24 01/27/24 Rx allopurinol 100 mg tablet 100 mg PO QAM #90 tabs 01/22/24 01/27/24 Rx Past Med/Surg History Problem List (Updated 01/27/24 @ 20:59 by Vargas Fernandez MD) Thrombocytopenia (Acute) Fall (Acute) Elevated lactic acid level (Acute) Weakness (Acute) Fever (Acute) Hypotension (Acute) Sepsis (Acute) Abnormal CT of the abdomen Sepsis Hypotension Chronic anemia Chronic renal insufficiency, stage IV (severe) Iron deficiency Traumatic open wound of left lower leg with delayed healing (Acute) Lower extremity edema Decreased calculated glomerular filtration rate (GFR) Secondary hyperparathyroidism History of aortic valve disease s/p AVR (2006) History of renal cell carcinoma Hypokalemia Chronic venous insufficiency (Chronic) Traumatic open wound of right lower leg (Acute) Wound of right leg Class 3 severe obesity due to excess calories with body mass index (BMI) of 40.0 to 44.9 in adult Gynecomastia, male Family history of breast cancer gene mutation in first degree relative Hx of gynecomastia Left breast lump Nocturnal hypoxemia Complex sleep apnea syndrome Chronic kidney disease, stage 4 (severe) (Chronic) Atrial fibrillation (Chronic) Hypertension (Chronic) Obstructive sleep apnea (Chronic) BIPAP Shortness of breath Acute diastolic (congestive) heart failure Hypermagnesemia Iron deficiency anemia Arm pain Hand numbness Foraminal stenosis of cervical region Vitamin D deficiency Anxiety (Acute) Venous insufficiency (chronic) (peripheral) Morbid obesity with BMI of 40.0-44.9, adult Gout Microcytic anemia Chronic low back pain with right-sided sciatica B12 deficiency Chronic diastolic CHF (congestive heart failure) (Chronic) Hyperlipidemia (Chronic) Medical History Diabetes mellitus Aspiration into respiratory tract Acute kidney injury superimposed on CKD Morbid obesity History of anxiety Hx of gout Hx of rotator cuff tear Difficulty with raising arms without extreme pain, currently in PT Hx of osteoarthritis Hx of impacted cerumen History of COVID-19 01/2021 > "mild" cold symptoms, resolved Prediabetes Kidney stones Hx x7 Renal cell adenocarcinoma s/p nephrectomy Chronic kidney disease, stage III (moderate) CKD (chronic kidney disease), stage III Surgical History (Updated 01/27/24 @ 20:00 by Sushil Dallas MD) H/O aortic valve replacement Hx of cardiac catheterization 11/2020 > no stents History of total bilateral knee replacement History of esophagogastroduodenoscopy (EGD) Hx of colonoscopy Hx of tonsillectomy Hx of cystoscopy w/stone basketing History of left nephrectomy History of spinal surgery Aortic valve replaced bioprosthesis, 2006 History of gastric bypass History of cholecystectomy Family History Mother Breast cancer Lung disease Grandmother (Maternal) Breast cancer Aunt Breast cancer Sister Breast cancer Father Myocardial infarction Arthritis Denies family history of Ovarian cancer Prostate cancer Colorectal cancer Social History Smoking Status: Never smoker Second Hand Exposure: No; Do You Dip or Chew Tobacco: No; Hx Alcohol Use: No Hx Substance Use: No Preferred Language: Yoruba Communication Ability: Effective Visual Impairment: No Limitations Hearing Ability: Normal Passenger Vessel Chef Required: No Beliefs That Will Affect Care: None marital status: Current Living Situation: Spouse and Family Current Living Situation Comment: Lives w/ , son lives in basement current occupational status: retired 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[employer] Other Information That Helps Us Care for You: No Feels Safe at Home: Yes Safety Concerns: Feels Safe At This Time Childhood Exposure to Second-Hand Smoke: Yes Diet: regular caffeine: Yes Dental Care, Regularly: Yes Physical Activity Frequency: Does not Exercise Physical Activity Frequency Comment: Physical activity limited due to medical conditions Seatbelt Use: always Sunscreen Use: No Do you think of yourself as: straight/heterosexual Gender Identity: Male Assistive Devices: Cane, CPAP and Oxygen - Continuous Review of Systems Review of Systems: All systems reviewed & are unremarkable except as noted in HPI & below Physical Exam Constitutional: WD/WN, vitals as above Eyes: PERRL, conjunctivae normal, anicteric sclerae ENMT: Mouth: + dry oral mucous membranes Respiratory: normal respiratory effort; no respiratory distress Auscultation: breath sounds present, no diminished lung sounds, no crackles, no rhonchi and no wheezes Cardiovascular: Rate/Rhythm: + tachycardic and + irregularly irregular Heart Sounds: no murmur Extremities: normal capillary refill and + pedal edema; no calf tenderness (trace b/l equal) Gastrointestinal (Abdomen): normal bowel sounds, soft, nontender, no hepatosplenomegaly Skin: + excoriations (on abdomen without surro unding cellulitis) Neurologic: moves all extremities and awake; not confused Psychiatric: A+Ox3, euthymic affect Genitourinary: no CVA tenderness Results & Data Results & Data Vital Signs (Past 12 Hours) Vital Signs Pulse Pulse Resp BP BP Pulse Ox O2 Del Method 01/27/24 18:06 112 H 79/48 L 01/27/24 17:56 100 H 79/48 L 01/27/24 17:50 92 Oxymask 01/27/24 17:47 84 L Nasal Cannula 01/27/24 17:01 106 H 01/27/24 16:39 105 H 33 H 108/79 91 01/27/24 16:39 91 Nasal Cannula 01/27/24 16:39 105 H 33 H 108/79 91 Nasal Cannula O2 Flow Rate 01/27/24 18:06 01/27/24 17:56 01/27/24 17:50 6 01/27/24 17:47 4 01/27/24 17:01 01/27/24 16:39 01/27/24 16:39 2 01/27/24 16:39 2 Laboratory Results Abnormal lab results 01/27/24 01/27/24 01/27/24 Range/Units 16:14 16:25 16:36 RBC 4.61 L (4.70-6.10) M/uL Hgb 12.5 L (14.0-18.0) g/dl Hct 39.9 L (42.0-52.0) % MCHC 31.3 L (32.0-36.0) g/dL RDW Std Deviation 57.1 H (36.4-46.3) fL RDW Coeff of Sarah 18.2 H (11.5-14.5) % Plt Count 126 L (130-400) K/uL Neut # (Auto) 8.46 H (1.40-6.50) K/uL Lymph # (Auto) 0.47 L (1.20-3.40) K/uL PT 15.7 H (9.0-12.0) Seconds INR 1.5 H (0.9-1.1) APTT 32 H (21-31) Seconds VBG pH (7.36-7.41) Potassium 2.9 L (3.5-5.1) mmol/L Chloride 96 L (98-107) mmol/L Carbon Dioxide 36 H (21-32) mmol/L BUN 47 H (6-23) mg/dl Creatinine 2.73 H (0.6-1.4) mg/dl Glucose 115 H (70-99(Fasting)) mg/dl Lactate 2.4 H* (0.4-2.0) mmol/L Total Bilirubin 2.4 H (0.2-1.0) mg/dl Direct Bilirubin 0.5 H (0-0.2) mg/dl Troponin I High Sens 48.2 H (0-20) pg/ml Urine Protein 1+ H (Negative) Urine Blood 2+ H (Negative) Urine RBC (Auto) >20 H (0-2) /hpf 01/27/24 Range/Units 17:36 RBC (4.70-6.10) M/uL Hgb (14.0-18.0) g/dl Hct (42.0-52.0) % MCHC (32.0-36.0) g/dL RDW Std Deviation (36.4-46.3) fL RDW Coeff of Sarah (11.5-14.5) % Plt Count (130-400) K/uL Neut # (Auto) (1.40-6.50) K/uL Lymph # (Auto) (1.20-3.40) K/uL PT (9.0-12.0) Seconds INR (0.9-1.1) APTT (21-31) Seconds VBG pH 7.56 H (7.36-7.41) Potassium (3.5-5.1) mmol/L Chloride (98-107) mmol/L Carbon Dioxide (21-32) mmol/L BUN (6-23) mg/dl Creatinine (0.6-1.4) mg/dl Glucose (70-99(Fasting)) mg/dl Lactate (0.4-2.0) mmol/L Total Bilirubin (0.2-1.0) mg/dl Direct Bilirubin (0-0.2) mg/dl Troponin I High Sens (0-20) pg/ml Urine Protein (Negative) Urine Blood (Negative) Urine RBC (Auto) (0-2) /hpf Diagnostic Findings CT SCAN OF THE BRAIN WITHOUT IV CONTRAST CLINICAL HISTORY: Fall. COMPARISON STUDY: CT of the brain dated 04/12/2013. TECHNIQUE: Unenhanced axial CT scan of the brain is performed from the vertex to the skull base. A dose lowering technique was utilized adhering to the principles of ALARA. FINDINGS: Brain parenchyma: There is age-related involutional change noting mild subcortical and periventricular microangiopathic disease. There is no hemorrhage, mass effect, or evidence of acute territorial ischemia by CT criteria. Munoz-white matter differentiation is preserved. No extra-axial fluid collection is seen. Ventricles, sulci, cisterns: Prominent secondary to involutional change. Intracranial vasculature: There is atherosclerotic calcification of the cavernous carotid and vertebral arteries. Calvarium: Unremarkable. Sinuses and mastoids: The visualized paranasal sinuses are clear. The mastoid air cells are well pneumatized. Orbits: The bony orbits are grossly intact. IMPRESSION: There is no hemorrhage, mass effect, or evidence of acute territorial ischemia by CT criteria. XR chest 1V portable CLINICAL HISTORY: Sepsis COMPARISON STUDY: Chest CT December 21, 2017. Chest radiograph December 26, 2023. 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 Cardiomegaly is unchanged. There is no evidence for pulmonary edema. There is no pneumothorax or pleural effusion. There is no consolidation to suggest pneumonia. IMPRESSION: No acute cardiopulmonary findings. Cardiomegaly. CT OF THE ABDOMEN AND PELVIS WITHOUT CONTRAST CLINICAL HISTORY: poss divertic or maybe abscess, fever, confusion COMPARISON STUDY: CT of the abdomen August 20, 2017. TECHNIQUE: Axial images of the abdomen and pelvis were obtained without IV contrast. Images were reviewed in the axial, sagittal, and coronal planes. Automated exposure control was utilized for the study. A dose lowering technique was utilized adhering to the principles of ALARA. FINDINGS: There is a trace right pleural effusion. The heart is moderately enlarged. Ground glass opacities within the right lower lobe are present. No pneumatosis, free air or portal venous gas is present. There is no abnormality within the left nephrectomy bed. There is no right hydronephrosis. No urinary calculi are identified. Bladder wall thickening is likely chronic. Multiple water attenuation right renal lesions are suboptimally assessed on this unenhanced exam but likely reflect cysts. There is a 1.4 cm hyperdense nodule adjacent to the lower pole of the right kidney on image 177 of 357. There is no evidence for a bowel obstruction. There is no biliary ductal dilatation status post cholecystectomy. Multiple hypodense hepatic lesions are suboptimally assessed on this exam but were likely present on prior CT. These are likely benign. Spleen, adrenal glands and pancreas are unremarkable. The appendix is normal. There is no evidence for a bowel obstruction. Scattered colonic diverticula are noted. There is no evidence for acute diverticulitis. No lymphadenopathy. There are no fluid collection. There are no acute fractures within the visualized skeletal structures. Status post Juan-en-Y gastric bypass. IMPRESSION: 1. Ground glass opacities within the right lower lobe which could reflect an infectious process or atelectasis. Trace right pleural effusion. 2. No evidence for a bowel obstruction status post Juan-en-Y gastric bypass. 3. Colonic diverticulosis. No evidence for acute diverticulitis. 4. 1.4 cm hypodense nodule adjacent to the lower pole of the right kidney. This could reflect a proteinaceous cyst or a solid lesion. Nonemergent renal ultrasound is recommended for further evaluation. Medications Administered ER Medications Given: Normal saline 2L bolus Cefepime 2000mg IV Acetaminophen 1000mg PO Ondansetron 4mg IV Potassium chloride 20 meq PO Potassium chloride 10 meq IV Normal saline 1L bolus Duoneb 3ml NEB Code Status & VTE Plan Code Status Full VTE Prophylaxis Plan VTE Prophylaxis will be ordered: Yes PG Care Time/CCT Total # of Minutes Spent Total Time Spent with Patient: Total time spent is greater than 50% in coordination of care (as documented) at patient's floor/unit and/or counseling patient: Coding Level of Care Code 81599 INT INP/OBS CARE 3/75MIN Diagnoses Sepsis A41.[address] of the abdomen R93.5 Fall W19.XXXA Encounter type: initial encounter Hypotension I95.9 Chronic diastolic CHF (congestive heart failure) I50.32 Chronic renal insufficiency, stage IV (severe) N18.4 Atrial fibrillation I48.21 Atrial fibrillation type: permanent Obstructive sleep apnea G47.33 (3) Fall Encounter type: initial encounter Qualified Code(s): W19.XXXA - Unspecified fall, initial encounter (7) Atrial fibrillation Atrial fibrillation type: permanent Qualified Code(s): I48.21 - Permanent atrial fibrillation
[2024-01-27] MEDS: STAT IV Infusion **Titration per Protocol STA (18:31)
[2024-01-27] MEDS: SODIUM CHLORIDE 0.9% 500 ML IV ONE (18:31)
[2024-01-27] MEDS: MIDODRINE HCL 10 MG TAB PO STA (20:21)
[2024-01-27] MEDS: RIVAROXABAN 15 MG TAB PO SCH (22:28)
[2024-01-27] MEDS: MAGNESIUM OXIDE 400 MG TAB PO SCH (22:28)
[2024-01-28] MEDS: CEFEPIME 1000MG 1,000 MG/10 ML SYR IV SCH (03:41)
[2024-01-28] MEDS ORDERED: CEFEPIME IV SCH (04:00)
[2024-01-28] MEDS: DOXYCYCLINE HYCLATE 100 MG in DEXTROSE 5% MINI-B 100 ML IV SCH (05:39)
[2024-01-28 05:56] LABS: A calco-baum cmplx NotReported Not Detected (NotDetected); Bact fragilis Not Reported Not Detected (NotDetected); Blood Culture Id Panel See PCR Comment (NotDetected); C auris Not Reported Not Detected (NotDetected); Calbicans Not Reported Not Detected (NotDetected); Candida glabrata Not Reported Not Detected (NotDetected); Candida krusei Not Reported Not Detected (NotDetected); Cneoformans/gatti Not Reported Not Detected (NotDetected); Cparapsilosis Not Reported Not Detected (NotDetected); E cloacae compx Not Reported Not Detected (NotDetected); Efaecalis Not Reported DETECTED (NotDetected); Efaecium Not Reported DETECTED (NotDetected); Enterobacterales Not Reported Not Detected (NotDetected); Escherichia coli Not Reported Not Detected (NotDetected); H influenzae Not Reported Not Detected (NotDetected); K aerogenes Not Reported Not Detected (NotDetected); Koxytoca Not Reported Not Detected (NotDetected); Kpneumoniae grp Not Reported Not Detected (NotDetected); Lmonocyt Not Reported Not Detected (NotDetected); N meningitidis Not Reported Not Detected (NotDetected); P aeruginosa Not Reported Not Detected (NotDetected); Proteus spp Not Reported Not Detected (NotDetected); Salmonella spp Not Reported Not Detected (NotDetected); Staph lugdunensis Not Reported Not Detected (NotDetected); Staph spp. Not Reported Not Detected (NotDetected); Staphaureus Not Reported Not Detected (NotDetected); Staphepi Not Reported Not Detected (NotDetected); Stenmaltophilia Not Reported Not Detected (NotDetected); Strep agal(GrpB) Not Reported Not Detected (NotDetected); Strep pneum Not Reported Not Detected (NotDetected); Strep pyog (GrpA) Not Reported Not Detected (NotDetected); Strep spp Not Reported Not Detected (NotDetected)
[2024-01-28 06:24] LABS: Enterococcus faecalis DETECTED (NotDetected); VanAB Resistant Gene VRE DETECTED (NotDetected)
[2024-01-28 06:25] LABS: Enterococcus faecium DETECTED (NotDetected)
--- NOTE | 2024-01-28 07:04 | Ultrasound Report ---
RENAL ULTRASOUND CLINICAL HISTORY: right kidney hypodense nodule on CT COMPARISON STUDY: CT of the abdomen and pelvis performed earlier today. TECHNIQUE: Sonography of the kidneys and the urinary bladder was performed. FINDINGS: The right kidney measures 13.4 cm and maximal dimension. There is no right hydronephrosis. A 1.3 cm anechoic lesion adjacent to the lower pole of the right kidney corresponds to the lesion in question on CT performed earlier today. Several additional right renal cysts are present. No solid ri ght renal lesions are identified by sonography. No abnormalities identified within the left nephrecto my bed. Mild bladder wall thickening is accentuated by underdistention. IMPRESSION: 1. The lesion in question on CT performed earlier today represents a cyst. Several additional right r enal cysts. No solid right renal lesions. 2. No right hydronephrosis. 3. No abnormality within the left nephrectomy bed. ACT 112: Negative or not required by law. Electronically signed by: Eddy Bashir M.D. 01/28/2024 7:03 AM
[2024-01-28 07:42] LABS: Albumin Level 3.5 gm/dl (3.4-5.0); Bilirubin,Total 2.3 mg/dl (0.2-1.0); Calcium 8.9 mg/dl (8.6-10.3); Potassium 2.9 mmol/L (3.5-5.1)
[2024-01-28 07:48] LABS: Albumin Globulin Ratio 1.2 (0.9-2); BUN Creatinine Ratio 18.4 (10-20); Creatinine Clr Calc Pharmacy 27.2 ml/min; Globulin 2.9 gm/dl (2.5-4.0); Total Protein 6.4 gm/dl (6.0-8.3)
[2024-01-28] MEDS: CALCITRIOL 0.25 MCG CAPSULE PO SCH (08:15)
[2024-01-28] MEDS: MIDODRINE HCL 10 MG TAB PO SCH (08:15)
[2024-01-28] MEDS: allopurinoL 100 MG TAB PO SCH (08:15)
[2024-01-28] MEDS: POTASSIUM CHLORIDE CRTAB 20 MEQ TABCR PO STA (08:19)
[2024-01-28] MEDS ORDERED: VANCOMYCIN CONSULT ACTIVE PRN (08:34)
[2024-01-28] MEDS ORDERED: VANCOMYCIN HCL 1,000 MG/270 ML BAG IV ONE (08:34)
[2024-01-28 08:41] LABS: Basophils # (auto) 0.05 K/uL (0.00-0.20); Basophils % (auto) 0.6 %; Hematocrit (blood only) 39.7 % (42.0-52.0); Hemoglobin 12.1 g/dl (14.0-18.0); Immature Granulocytes # (auto) 0.05 K/uL (0.01-0.20); Immature Granulocytes % (auto) 0.6 %; Lymphocytes # (auto) 0.41 K/uL (1.20-3.40); Lymphocytes % (auto) 4.5 %; Mean Corpuscular Hemoglobin 26.8 pg (25.0-34.0); Mean Corpuscular Hgb Conc 30.5 g/dL (32.0-36.0); Mean Platelet Volume 10.3 fL (9.4-12.4); Monocytes % (auto) 4.4 %; Neutrophils # (auto) 8.15 K/uL (1.40-6.50); Neutrophils % (auto) 89.9 %; Platelet Count 116 K/uL (130-400); RDW Coefficient of Variation 18.5 % (11.5-14.5); RDW Standard Deviation 59.2 fL (36.4-46.3); Red Blood Count 4.51 M/uL (4.70-6.10); White Blood Count 9.06 K/ul (4.8-10.8)
[2024-01-28] MEDS: METOPROLOL SUCC 50MG EXT REL TAB PO SCH (09:34)
[2024-01-28] MEDS: VANCOMYCIN HCL 2,000 MG in SODIUM CHLORIDE 0.9% 500 ML IV ONE (09:34)
--- NOTE | 2024-01-28 11:07 | Pharmacy Report ---
Pharmacy PK ABX Note - Date of Service January 28, 2024 - Assessment and Plan Assessment 83 year old M receiving vancomycin for treatment of bacteremia. Pertinent microbiologic data includes: Positive MRSA Nasal Swab, blood cultures growing GPC in clusters prelim in 4/4 bottles (Biofire ID + E.faecalis/faecium and VRE possitive). Unclear source at this time and possible PNA and skin source were noted in the H/P. Discussed w/Dr. Rodriguez about possible escalation, ID consulted. Continue vancomycin for now. Day # 1 of vancomycin Plan Vancomycin * Loading dose: 2000 mg IV x 1 * Maintenance dose: 750 mg IV every 24 hours * Regimen is predicted to achieve target AUC/ITALO of 400-600 mg/L.hr * Random level ordered for: 01/29/24 w/AM labs Pharmacy will continue to follow and will adjust dose/frequency as necessary. Thank you. Pharmacy has transitioned to AUC monitoring for vancomycin. AUC/ITALO is the preferred PK/PD target and is associated with decreased risk of nephrotoxicity compared to traditional trough targets.
--- NOTE | 2024-01-28 12:31 | Hospitalist Progress Note ---
Date of Service January 28, 2024 Assessment & Plan (1) Septic shock: Plan: Present on admission. Resolved with IV fluids and addition of scheduled midodrine. Treat underlying infectious process. Supportive care (2) Bacteremia: Plan: Gram-positive cocci isolated in blood cultures. Possibly from skin etiology. Antibiotics have been switched to IV vancomycin until identification and sensitivities are available. ID consultation requested (3) Abnormal CT of the abdomen: Plan: Renal US reveals a benign-appearing right renal cyst. This can be followed further as an outpatient (4) Fall: Plan: Supportive care. OT and PT evaluations. Mechanical (5) Chronic diastolic CHF (congestive heart failure): Plan: No overt CHF on admission. Monitor intake and output. (6) Chronic renal insufficiency, stage IV (severe): Plan: Monitor intake and output. Serial labs (7) Atrial fibrillation: Plan: Chronic atrial fibrillation. Heart rate is controlled. Metoprolol has been restarted. Continue Xarelto. Telemetry Plan To be determined Admission and Anticipated Discharge Date Admission Date: January 27, 2024 Subjective Alert and oriented. Blood pressure is satisfactory on scheduled midodrine. Fortunately the renal ultrasound only shows a benign-appearing right renal cyst. Blood cultures are already positive for gram-positive cocci. Antibiotics have been switched to IV vancomycin. Infectious disease consultation has been requested. Metoprolol has been restarted. Potassium supplementation continues. Review of Systems 2 Review of Systems: Constitutionalno fever or chills. Generalized weakness ENTno blurred vision, no double vision, no epistaxis, no sore throat Respiratoryno cough, no wheezing, no shortness of breath Cardiacno palpitations, no chest pain, no syncope Daniela nausea, vomiting, diarrhea, melena, hematochezia GUno urinary retention, no urinary incontinence, no dysuria, no hematuria Musculoskeletalno joint pain, no muscle tenderness Skinpruritic scattered excoriations on the trunk Neurogeneralized weakness. No paresthesia Psychno depression, no anxiety Physical Exam 2 Physical Exam: General-alert and oriented x3, low-grade fever. Denies rigors HEENT-head atraumatic and normocephalic, pupils equal and reactive to light, extraocular muscles intact Neck-no lymphadenopathy or thyromegaly, trachea midline Chest-clear to auscultation. No rales, wheezing or rhonchi Cardiac-irregular rhythm. Controlled rate. Normal S1 and S2 Abdomen-normal bowel sounds, no hepatosplenomegaly Skinscattered excoriated appearing lesions on the abdomen Extremities-no cyanosis, clubbing, or edema Neuro-cranial nerves II through XII intact, motor and sensory function within normal limits, strength symmetrical with generalized weakness, no focal deficits Psych-normal affect, normal mood Results & Data Results & Data Vital Signs (Past 12 Hours) Vital Signs Temp Pulse Pulse Resp BP BP Pulse Ox 01/28/24 11:42 37.7 C H 124 H 22 92/61 L 93 01/28/24 08:36 01/28/24 07:41 37.1 C 123 H 24 109/79 98 01/28/24 07:31 100 H 01/28/24 03:50 37.0 C 93 H 20 100/64 97 O2 Del Method O2 Flow Rate 01/28/24 11:42 Nasal Cannula 3.0 01/28/24 08:36 Nasal Cannula 3 01/28/24 07:41 CPAP 01/28/24 07:31 01/28/24 03:50 CPAP Laboratory Results 01/28/24 08:25 01/28/24 07:10 PG Care Time/CCT Total # of Minutes Spent Total Time Spent with Patient: Total time spent is greater than 50% in coordination of care (as documented) at patient's floor/unit and/or counseling patient: Coding Level of Care Code 01443 SUB INP/OBS CARE 3/50MIN Diagnoses Septic shock A41.9; R65.[address] of the abdomen R93.5 Fall W19.XXXA Encounter type: initial encounter Chronic diastolic CHF (congestive heart failure) I50.32 Chronic renal insufficiency, stage IV (severe) N18.4 Atrial fibrillation I48.21 Atrial fibrillation type: permanent (4) Fall Encounter type: initial encounter Qualified Code(s): W19.XXXA - Unspecified fall, initial encounter (7) Atrial fibrillation Atrial fibrillation type: permanent Qualified Code(s): I48.21 - Permanent atrial fibrillation
[2024-01-28] MEDS: ACETAMINOPHEN 325 MG TAB PO PRN (12:50)
[2024-01-28] MEDS: LINEZOLID 600 MG/300 ML BAG IV SCH (14:24)
--- NOTE | 2024-01-28 14:55 | Electrocardiogram Report ---
Test Reason : Blood Pressure : */* mmHG Vent. Rate : 108 BPM Atrial Rate : * BPM P-R Int : * ms QRS Dur : 96 ms QT Int : 360 ms P-R-T Axes : * 84 -68 degrees QTcB Int : 482 ms Atrial fibrillation with rapid ventricular response with premature ventricular or aberrantly conducte d complexes Abnormal ECG When compared with ECG of 23-Dec-2023 10:55, T wave inversion now evident in Inferior leads Confirmed by Taco Cabrera ([id number]) on 01/28/2024 2:55:10 PM Referred By: REFERRED SELF Confirmed By: Taco Cabrera
[2024-01-28] MEDS: SODIUM CHLORIDE 0.9% 1,000 ML IV SCH (15:39)
[2024-01-28] MEDS: SODIUM CHLORIDE 0.9% 500 ML IV ONE (15:39)
--- NOTE | 2024-01-28 16:59 | Infectious Disease Consult ---
Date of Consultation January 28, 2024 Assessment & Plan (1) Bacteremia: (2) Fever: Plan This is an 83-year-old man with a past medical history bilateral knee replacement, aortic valve replacement spinal surgery, DM2, CKD presents to the ED status post fall. Noted to be weak and febrile. Complained of feeling thirsty, weak with chills. In the ED febrile, temp 39.6, pulse 105, respiratory rate 33, blood pressure 108/79-->83/46 , O2 sats 91% on 2 L. Labs WBC 9.16, BUN 47, creatinine 2.73, total bili 2.4, MRSA nasal screen positive. Respiratory viral panel negative, Biofire PCR positive for VRE. BC with 4/4 GPC. Urinalysis 0-5 WBC. Chest x-ray no consolidations. Head CT no acute findings. CT abdomen/pelvis groundglass opacities within the right lobe which could reflect atelectasis versus infectious process. No evidence of bowel obstruction post Juan-en-Y bypass. Possible proteinaceous cyst versus solid lesion on the right kidney. Renal ultrasound shows that this lesion is more consistent with a cyst. Several additional renal cysts noted. No hydronephrosis. He received Cefepime,Doxycycline and vancomycin. He has been started o Linezolid . ID consulted for GPC bacteremia. Econsult performed as no Tele-presenter available at time of consult. Microbiology: Blood culture 01/26 07/01 bottles GPC in chains ( VRE on biofire) Urine culture 01/27/2024 NGTD MRSA nares + 01/26 Antibiotics: Cefepime 01/26 Vancomycin 01/27 Doxycycline 01/26 Linezolid 01/27ongoing #VRE bacteremia #Sepsis #S/p Aortic valve placement #BL TKA #S/P spinal surgery # CKD # Thrombocytopenia Discussion: VRE bacteremia, source unclear. He is status post aortic valve placement, bilateral TKA and spinal surgery. These areas need to be evaluated as possible sources. No mention of back or knee pain per review of chart. Per review of exam no knee effusions. Would check with TTE. Vancomycin has been discontinued by team and he has been startedon linezolid for VRE. Recommendations Continue linezolid 600 mg IV every 12 hours for now . Will likely transition to IV daptomycin, but will check CPK prior to changing antibiotics. Check transthoracic echocardiogram Repeat blood culture on 01/28/21 Monitor plts on Linezolid ( currently 126) Econsult performed per chart review. Will see with manager telecom on 01/28 Thank you for this consult. ID will continue to follow Willie Marshall MD, MPH Infectious Disease [facility] Call [phone] with questions Consultation Information This patient recommendation is based on a telemedicine consult request which was completed asynchronously through chart review and information provided by the primary physician. The patient was not seen or examined today. The evaluation is consultative in nature and all patient care and treatment decisions can either be accepted or rejected by the patient's primary hospital-based treating physician using their own independent medical judgment for their patient. [employer] contact information: Please call [facility] Call Center . (Phone Number For Physician Use Only) Time Spent Reviewing Chart: 31+ minutes History of Present Illness Reason for Consultation: GPC bacteremia Requesting Physician: Glenn Rodriguez MD Attending Physician: Glenn Rodriguez MD Allergies Allergy/AdvReac Type Severity Reaction Status Date / Time iron [From Venofer] AdvReac Mild Vomiting Verified 01/05/24 12:26 Iodinated Contrast Media AdvReac Unknown PT ONLY Verified 01/05/24 12:26 [Iodinated Contrast- Oral HAS 1 and IV Dye] KIDNEY, CONTRAINDICATED. Home Medications Medication Instructions Recorded Confirmed Type amoxicillin 500 mg tablet 2,000 mg PO DIRECTED PRN 1 HOUR 11/16/18 01/27/24 History PRIOR TO DENTAL PROCEDURES docusate sodium 100 mg capsule 100 mg PO QAM PRN Constipation 05/03/20 01/27/24 History cholecalciferol (vitamin D3) 50 50 mcg PO DAILY 07/10/22 01/27/24 History mcg (2,000 unit) capsule (Vitamin D3) magnesium 250 mg tablet 250 mg PO HS 07/10/22 01/27/24 History cyanocobalamin (vitamin B-12) 1,000 mcg IM Q90D #30 mL 09/23/22 01/27/24 Rx 1,000 mcg/mL injection solution metolazone 5 mg tablet 5 mg PO DAILY PRN weight gain #30 10/23/22 01/27/24 Rx tabs rivaroxaban 15 mg tablet 15 mg PO HS #90 tabs 02/09/23 01/27/24 Rx Portable Oxygen #1 ea 05/25/23 01/27/24 Rx calcitriol 0.25 mcg capsule 0.5 mcg (2 x 0.25 mcg) PO QAM #180 08/11/23 01/27/24 Rx caps potassium chloride 10 mEq 10 meq PO BID #180 caps 09/29/23 01/27/24 Rx capsule,extended release cyclobenzaprine 5 mg tablet 5 mg PO BID PRN muscle 11/20/23 01/27/24 Rx pain/stiffness #60 tabs bumetanide 2 mg tablet 3 mg PO QAM 12/22/23 01/27/24 History mupirocin 2 % topical ointment 1 applic topical TID PRN irritation 12/22/23 01/27/24 History tamoxifen 20 mg tablet 20 mg PO QAM 12/22/23 01/27/24 History metoprolol succinate 25 mg 75 mg (3 x 25 mg) PO QPM #90 tabs 12/28/23 01/27/24 Rx tablet,extended release 24 hr metoprolol succinate 50 mg 50 mg PO QAM #30 tabs 12/28/23 01/27/24 Rx tablet,extended release 24 hr tramadol 50 mg tablet 50 mg PO BID PRN Pain #60 tabs 01/14/24 01/27/24 Rx allopurinol 100 mg tablet 100 mg PO QAM #90 tabs 01/22/24 01/27/24 Rx Patient History Medical History Diabetes mellitus Aspiration into respiratory tract Acute kidney injury superimposed on CKD Morbid obesity History of anxiety Hx of gout Hx of rotator cuff tear Difficulty with raising arms without extreme pain, currently in PT Hx of osteoarthritis Hx of impacted cerumen History of COVID-19 01/2021 > "mild" cold symptoms, resolved Prediabetes Kidney stones Hx x7 Renal cell adenocarcinoma s/p nephrectomy Chronic kidney disease, stage III (moderate) CKD (chronic kidney disease), stage III Surgical History (Updated 01/27/24 @ 20:00 by Sushil Dallas MD) H/O aortic valve replacement Hx of cardiac catheterization 11/2020 > no stents History of total bilateral knee replacement History of esophagogastroduodenoscopy (EGD) Hx of colonoscopy Hx of tonsillectomy Hx of cystoscopy w/stone basketing History of left nephrectomy History of spinal surgery Aortic valve replaced bioprosthesis, 2006 History of gastric bypass History of cholecystectomy Family History Mother Breast cancer Lung disease Grandmother (Maternal) Breast cancer Aunt Breast cancer Sister Breast cancer Father Myocardial infarction Arthritis Denies family history of Ovarian cancer Prostate cancer Colorectal cancer Social History Smoking Status: Never smoker Second Hand Exposure: No; Do You Dip or Chew Tobacco: No; Hx Alcohol Use: No Hx Substance Use: No Preferred Language: Moldovan Communication Ability: Effective Visual Impairment: No Limitations Hearing Ability: Normal Rn Registry Required: No Beliefs That Will Affect Care: None marital status: Current Living Situation: Spouse and Family Current Living Situation Comment: Lives w/ , son lives in basement current occupational status: retired 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[employer] Other Information That Helps Us Care for You: No Feels Safe at Home: Yes Safety Concerns: Feels Safe At This Time Childhood Exposure to Second-Hand Smoke: Yes Diet: regular caffeine: Yes Dental Care, Regularly: Yes Physical Activity Frequency: Does not Exercise Physical Activity Frequency Comment: Physical activity limited due to medical conditions Seatbelt Use: always Sunscreen Use: No Do you think of yourself as: straight/heterosexual Gender Identity: Male Assistive Devices: Cane, Oxygen - Continuous and Walker Results & Data Vital Signs (Past 12 Hours) Vital Signs Temp Pulse Pulse Resp BP BP Pulse Ox 01/28/24 16:48 109/69 01/28/24 15:26 36.7 C 88 20 86/54 L 97 01/28/24 14:49 123 H 01/28/24 11:42 37.7 C H 124 H 22 92/61 L 93 01/28/24 08:36 01/28/24 07:41 37.1 C 123 H 24 109/79 98 01/28/24 07:31 100 H O2 Del Method O2 Flow Rate 01/28/24 16:48 01/28/24 15:26 Nasal Cannula 3.0 01/28/24 14:49 01/28/24 11:42 Nasal Cannula 3.0 01/28/24 08:36 Nasal Cannula 3 01/28/24 07:41 CPAP 01/28/24 07:31 Laboratory Results Laboratory Results - last 48 hr 01/27/24 01/27/24 01/27/24 16:14 16:14 16:25 WBC 9.61 RBC 4.61 L Hgb 12.5 L Hct 39.9 L MCV 86.6 MCH 27.1 MCHC 31.3 L RDW Std Deviation 57.1 H RDW Coeff of Sarah 18.2 H Plt Count 126 L MPV 10.3 Immature Gran % (Auto) 0.5 Neut % (Auto) 88.1 Lymph % (Auto) 4.9 Bacon % (Auto) 5.9 Eos % (Auto) 0.1 Baso % (Auto) 0.5 Neut # (Auto) 8.46 H Lymph # (Auto) 0.47 L Bacon # (Auto) 0.57 Eos # (Auto) 0.01 Baso # (Auto) 0.05 Immature Gran # (Auto) 0.05 Absolute Nucleated RBC Nucleated RBC % (auto) Neutrophils % (Manual) Band Neutrophils % Lymphocytes % (Manual) Prolymphocyte % Reactive Lymphs % (Man) Monocytes % (Manual) Eosinophils % (Manual) Basophils % (Manual) Metamyelocytes % (Man) Myelocytes % (Man) Promyelocytes % (Man) Blast Cells % (Manual) Plasma Cell % (Manual) Other Cells % Nucleated RBC % Neutrophils # (Manual) Band Neutrophils # Total Absolute Neuts Lymphocytes # (Manual) Prolymphocyte # Reactive Lymphs # Total Abs Lymphocytes Monocytes # (Manual) Eosinophils # (Manual) Basophils # (Manual) Metamyelocytes # (Man) Myelocytes # (Manual) Promyelocytes # (Man) Blast Cells # (Man) Plasma Cell # (Manual) Other Cells # Nucleated RBCs # (Man) Hypersegmented Neuts Hyposegmented Neuts Hypogranular Neuts Large Granular Lymphs # Lrg Granular Lymphs Hairy Cells Smudge Cells Toxic Granulation Toxic Vacuolation Dohle Bodies Daryn Rods Platelet Estimate Hypogranular Platelets Giant Platelets Platelet Satelliting RBC Morphology Polychromasia Hypochromasia Poikilocytosis Basophilic Stippling Anisocytosis Microcytosis Macrocytosis Spherocytes Pappenheimer Bodies Sickle Cells Target Cells Tear Drop Cells Ovalocytes Stomatocytes [place] Bodies Echinocytes Acanthocytes (Spur) Rouleaux RBC Agglutinates Schistocytes Sezary Cell PT 15.7 H INR 1.5 H APTT 32 H PTT Ratio 1.2 VBG pH VBG pCO2 VBG pO2 VBG HCO3 VBG O2 Saturation VBG Base Excess Sodium 143 Potassium 2.9 L Chloride 96 L Carbon Dioxide 36 H Anion Gap 11 BUN 47 H Creatinine 2.73 H Est Cr Clr Drug Dosing 22.2 eGFR 22.66 BUN/Creatinine Ratio 17.2 Glucose 115 H Lactate Calcium 9.6 Magnesium 1.9 Total Bilirubin 2.4 H Direct Bilirubin 0.5 H AST 20 ALT 7 Alkaline Phosphatase 60 Troponin I High Sens 48.2 H B-Natriuretic Peptide Total Protein 6.5 Albumin 3.5 Globulin Albumin/Globulin Ratio Procalcitonin 0.11 Random Cortisol Cortisol AM Sample Urine Color Yellow Urine Appearance Clear Urine pH 6.0 Ur Specific [place] 1.012 Urine Protein 1+ H Urine Glucose (UA) Negative Urine Ketones Negative Urine Blood 2+ H Urine Nitrite Negative Urine Bilirubin Negative Urine Urobilinogen Negative Ur Leukocyte Esterase Negative Urine WBC (Auto) 0-5 Urine RBC (Auto) >20 H U Hyaline Cast (Auto) 0-2 U Epithel Cells (Auto) 0-2 Urine Bacteria (Auto) None Seen Nasal Screen MRSA (PCR) Adenovirus (PCR) Anaplasma Smear See Comment Babesia Smear See Comment B. pertussis DNA (PCR) B.parapertussis DNA PCR Lyme Disease Screen Cancelled Negative C. pneumoniae DNA (PCR) Coronavirus OC43 (PCR) Coronavirus HKU1 (PCR) Coronavirus 229E (PCR) SARS-CoV-2 (PCR) Coronavirus NL63 (PCR) Enterococc faecalis PCR DETECTED A Enterococc faecium PCR DETECTED A Human Metapneumovir PCR Influenza Type A (PCR) Influenza Type B (PCR) M. pneumoniae (PCR) Parainfluenza 1 (PCR) Parainfluenza 2 (PCR) Parainfluenza 3 (PCR) Parainfluenza 4 (PCR) RSV (PCR) Entero/Rhino (PCR) Viola/B-Vanco Res Genes VRE DETECTED A* Bld Cult ID Panel PCR See PCR Comment Blood Parasites ID 01/27/24 01/27/24 01/27/24 16:36 17:20 17:36 WBC RBC Hgb Hct MCV MCH MCHC RDW Std Deviation RDW Coeff of Sarah Plt Count MPV Immature Gran % (Auto) Neut % (Auto) Lymph % (Auto) Bacon % (Auto) Eos % (Auto) Baso % (Auto) Neut # (Auto) Lymph # (Auto) Bacon # (Auto) Eos # (Auto) Baso # (Auto) Immature Gran # (Auto) Absolute Nucleated RBC Nucleated RBC % (auto) Neutrophils % (Manual) Band Neutrophils % Lymphocytes % (Manual) Prolymphocyte % Reactive Lymphs % (Man) Monocytes % (Manual) Eosinophils % (Manual) Basophils % (Manual) Metamyelocytes % (Man) Myelocytes % (Man) Promyelocytes % (Man) Blast Cells % (Manual) Plasma Cell % (Manual) Other Cells % Nucleated RBC % Neutrophils # (Manual) Band Neutrophils # Total Absolute Neuts Lymphocytes # (Manual) Prolymphocyte # Reactive Lymphs # Total Abs Lymphocytes Monocytes # (Manual) Eosinophils # (Manual) Basophils # (Manual) Metamyelocytes # (Man) Myelocytes # (Manual) Promyelocytes # (Man) Blast Cells # (Man) Plasma Cell # (Manual) Other Cells # Nucleated RBCs # (Man) Hypersegmented Neuts Hyposegmented Neuts Hypogranular Neuts Large Granular Lymphs # Lrg Granular Lymphs Hairy Cells Smudge Cells Toxic Granulation Toxic Vacuolation Dohle Bodies Daryn Rods Platelet Estimate Hypogranular Platelets Giant Platelets Platelet Satelliting RBC Morphology Polychromasia Hypochromasia Poikilocytosis Basophilic Stippling Anisocytosis Microcytosis Macrocytosis Spherocytes Pappenheimer Bodies Sickle Cells Target Cells Tear Drop Cells Ovalocytes Stomatocytes [place] Bodies Echinocytes Acanthocytes (Spur) Rouleaux RBC Agglutinates Schistocytes Sezary Cell PT INR APTT PTT Ratio VBG pH 7.56 H VBG pCO2 41 VBG pO2 54 VBG HCO3 37 VBG O2 Saturation 90.6 VBG Base Excess 13.2 Sodium Potassium Chloride Carbon Dioxide Anion Gap BUN Creatinine Est Cr Clr Drug Dosing eGFR BUN/Creatinine Ratio Glucose Lactate 2.4 H* Calcium Magnesium Total Bilirubin Direct Bilirubin AST ALT Alkaline Phosphatase Troponin I High Sens B-Natriuretic Peptide Total Protein Albumin Globulin Albumin/Globulin Ratio Procalcitonin Random Cortisol Cortisol AM Sample Urine Color Urine Appearance Urine pH Ur Specific [place] Urine Protein Urine Glucose (UA) Urine Ketones Urine Blood Urine Nitrite Urine Bilirubin Urine Urobilinogen Ur Leukocyte Esterase Urine WBC (Auto) Urine RBC (Auto) U Hyaline Cast (Auto) U Epithel Cells (Auto) Urine Bacteria (Auto) Nasal Screen MRSA (PCR) Adenovirus (PCR) Not Detected Anaplasma Smear Babesia Smear B. pertussis DNA (PCR) Not Detected B.parapertussis DNA PCR Not Detected Lyme Disease Screen C. pneumoniae DNA (PCR) Not Detected Coronavirus OC43 (PCR) Not Detected Coronavirus HKU1 (PCR) Not Detected Coronavirus 229E (PCR) Not Detected SARS-CoV-2 (PCR) Not Detected Coronavirus NL63 (PCR) Not Detected Enterococc faecalis PCR Enterococc faecium PCR Human Metapneumovir PCR Not Detected Influenza Type A (PCR) Not Detected Influenza Type B (PCR) Not Detected M. pneumoniae (PCR) Not Detected Parainfluenza 1 (PCR) Not Detected Parainfluenza 2 (PCR) Not Detected Parainfluenza 3 (PCR) Not Detected Parainfluenza 4 (PCR) Not Detected RSV (PCR) Not Detected Entero/Rhino (PCR) Not Detected Viola/B-Vanco Res Genes Bld Cult ID Panel PCR Blood Parasites ID 01/27/24 01/27/24 01/27/24 17:37 18:15 20:00 WBC RBC Hgb Hct MCV MCH MCHC RDW Std Deviation RDW Coeff of Sarah Plt Count MPV Immature Gran % (Auto) Neut % (Auto) Lymph % (Auto) [place] % (Auto) Eos % (Auto) Baso % (Auto) Neut # (Auto) Lymph # (Auto) Bacon # (Auto) Eos # (Auto) Baso # (Auto) Immature Gran # (Auto) Absolute Nucleated RBC Nucleated RBC % (auto) Neutrophils % (Manual) Band Neutrophils % Lymphocytes % (Manual) Prolymphocyte % Reactive Lymphs % (Man) Monocytes % (Manual) Eosinophils % (Manual) Basophils % (Manual) Metamyelocytes % (Man) Myelocytes % (Man) Promyelocytes % (Man) Blast Cells % (Manual) Plasma Cell % (Manual) Other Cells % Nucleated RBC % Neutrophils # (Manual) Band Neutrophils # Total Absolute Neuts Lymphocytes # (Manual) Prolymphocyte # Reactive Lymphs # Total Abs Lymphocytes Monocytes # (Manual) Eosinophils # (Manual) Basophils # (Manual) Metamyelocytes # (Man) Myelocytes # (Manual) Promyelocytes # (Man) Blast Cells # (Man) Plasma Cell # (Manual) Other Cells # Nucleated RBCs # (Man) Hypersegmented Neuts Hyposegmented Neuts Hypogranular Neuts Large Granular Lymphs # Lrg Granular Lymphs Hairy Cells Smudge Cells Toxic Granulation Toxic Vacuolation Dohle Bodies Daryn Rods Platelet Estimate Hypogranular Platelets Giant Platelets Platelet Satelliting RBC Morphology Polychromasia Hypochromasia Poikilocytosis Basophilic Stippling Anisocytosis Microcytosis Macrocytosis Spherocytes Pappenheimer Bodies Sickle Cells Target Cells Tear Drop Cells Ovalocytes Stomatocytes [place] Bodies Echinocytes Acanthocytes (Spur) Rouleaux RBC Agglutinates Schistocytes Sezary Cell PT INR APTT PTT Ratio VBG pH VBG pCO2 VBG pO2 VBG HCO3 VBG O2 Saturation VBG Base Excess Sodium Potassium Chloride Carbon Dioxide Anion Gap BUN Creatinine Est Cr Clr Drug Dosing eGFR BUN/Creatinine Ratio Glucose Lactate 1.2 Calcium Magnesium Total Bilirubin Direct Bilirubin AST ALT Alkaline Phosphatase Troponin I High Sens 44.3 H B-Natriuretic Peptide 1475 H Total Protein Albumin Globulin Albumin/Globulin Ratio Procalcitonin Random Cortisol 22.77 Cortisol AM Sample Urine Color Urine Appearance Urine pH Ur Specific [place] Urine Protein Urine Glucose (UA) Urine Ketones Urine Blood Urine Nitrite Urine Bilirubin Urine Urobilinogen Ur Leukocyte Esterase Urine WBC (Auto) Urine RBC (Auto) U Hyaline Cast (Auto) U Epithel Cells (Auto) Urine Bacteria (Auto) Nasal Screen MRSA (PCR) Adenovirus (PCR) Anaplasma Smear Babesia Smear B. pertussis DNA (PCR) B.parapertussis DNA PCR Lyme Disease Screen C. pneumoniae DNA (PCR) Coronavirus OC43 (PCR) Coronavirus HKU1 (PCR) Coronavirus 229E (PCR) SARS-CoV-2 (PCR) Coronavirus NL63 (PCR) Enterococc faecalis PCR Enterococc faecium PCR Human Metapneumovir PCR Influenza Type A (PCR) Influenza Type B (PCR) M. pneumoniae (PCR) Parainfluenza 1 (PCR) Parainfluenza 2 (PCR) Parainfluenza 3 (PCR) Parainfluenza 4 (PCR) RSV (PCR) Entero/Rhino (PCR) Viola/B-Vanco Res Genes Bld Cult ID Panel PCR Blood Parasites ID 10/30/24 10/31/24 10/31/24 Unknown 07:10 08:25 WBC Cancelled 9.06 RBC Cancelled 4.51 L Hgb Cancelled 12.1 L Hct Cancelled 39.7 L MCV Cancelled 88.0 MCH Cancelled 26.8 MCHC Cancelled 30.5 L RDW Std Deviation Cancelled 59.2 H RDW Coeff of Sarah Cancelled 18.5 H Plt Count Cancelled 116 L MPV Cancelled 10.3 Immature Gran % (Auto) Cancelled 0.6 Neut % (Auto) Cancelled 89.9 Lymph % (Auto) Cancelled 4.5 Bacon % (Auto) Cancelled 4.4 Eos % (Auto) Cancelled 0.0 Baso % (Auto) Cancelled 0.6 Neut # (Auto) Cancelled 8.15 H Lymph # (Auto) Cancelled 0.41 L Bacon # (Auto) Cancelled 0.40 Eos # (Auto) Cancelled 0.00 Baso # (Auto) Cancelled 0.05 Immature Gran # (Auto) Cancelled 0.05 Absolute Nucleated RBC Cancelled Nucleated RBC % (auto) Cancelled Neutrophils % (Manual) Cancelled Band Neutrophils % Cancelled Lymphocytes % (Manual) Cancelled Prolymphocyte % Cancelled Reactive Lymphs % (Man) Cancelled Monocytes % (Manual) Cancelled Eosinophils % (Manual) Cancelled Basophils % (Manual) Cancelled Metamyelocytes % (Man) Cancelled Myelocytes % (Man) Cancelled Promyelocytes % (Man) Cancelled Blast Cells % (Manual) Cancelled Plasma Cell % (Manual) Cancelled Other Cells % Cancelled Nucleated RBC % Cancelled Neutrophils # (Manual) Cancelled Band Neutrophils # Cancelled Total Absolute Neuts Cancelled Lymphocytes # (Manual) Cancelled Prolymphocyte # Cancelled Reactive Lymphs # Cancelled Total Abs Lymphocytes Cancelled Monocytes # (Manual) Cancelled Eosinophils # (Manual) Cancelled Basophils # (Manual) Cancelled Metamyelocytes # (Man) Cancelled Myelocytes # (Manual) Cancelled Promyelocytes # (Man) Cancelled Blast Cells # (Man) Cancelled Plasma Cell # (Manual) Cancelled Other Cells # Cancelled Nucleated RBCs # (Man) Cancelled Hypersegmented Neuts Cancelled Hyposegmented Neuts Cancelled Hypogranular Neuts Cancelled Large Granular Lymphs Cancelled # Lrg Granular Lymphs Cancelled Hairy Cells Cancelled Smudge Cells Cancelled Toxic Granulation Cancelled Toxic Vacuolation Cancelled Dohle Bodies Cancelled Daryn Rods Cancelled Platelet Estimate Cancelled Hypogranular Platelets Cancelled Giant Platelets Cancelled Platelet Satelliting Cancelled RBC Morphology Cancelled Polychromasia Cancelled Hypochromasia Cancelled Poikilocytosis Cancelled Basophilic Stippling Cancelled Anisocytosis Cancelled Microcytosis Cancelled Macrocytosis Cancelled Spherocytes Cancelled Pappenheimer Bodies Cancelled Sickle Cells Cancelled Target Cells Cancelled Tear Drop Cells Cancelled Ovalocytes Cancelled Stomatocytes Cancelled [place] Bodies Cancelled Echinocytes Cancelled Acanthocytes (Spur) Cancelled Rouleaux Cancelled RBC Agglutinates Cancelled Schistocytes Cancelled Sezary Cell Cancelled PT INR APTT PTT Ratio VBG pH VBG pCO2 VBG pO2 VBG HCO3 VBG O2 Saturation VBG Base Excess Sodium 142 Potassium 2.9 L Chloride 100 Carbon Dioxide 31 Anion Gap 11 BUN 46 H Creatinine 2.50 H Est Cr Clr Drug Dosing 27.2 eGFR 25.18 BUN/Creatinine Ratio 18.4 Glucose 114 H Lactate Calcium 8.9 Magnesium Total Bilirubin 2.3 H Direct Bilirubin AST 29 ALT 4 L Alkaline Phosphatase 56 Troponin I High Sens B-Natriuretic Peptide Total Protein 6.4 Albumin 3.5 Globulin 2.9 Albumin/Globulin Ratio 1.2 Procalcitonin Random Cortisol Cortisol AM Sample 26.79 H Urine Color Urine Appearance Urine pH Ur Specific [place] Urine Protein Urine Glucose (UA) Urine Ketones Urine Blood Urine Nitrite Urine Bilirubin Urine Urobilinogen Ur Leukocyte Esterase Urine WBC (Auto) Urine RBC (Auto) U Hyaline Cast (Auto) U Epithel Cells (Auto) Urine Bacteria (Auto) Nasal Screen MRSA (PCR) Positive A Adenovirus (PCR) Anaplasma Smear Babesia Smear B. pertussis DNA (PCR) B.parapertussis DNA PCR Lyme Disease Screen C. pneumoniae DNA (PCR) Coronavirus OC43 (PCR) Coronavirus HKU1 (PCR) Coronavirus 229E (PCR) SARS-CoV-2 (PCR) Coronavirus NL63 (PCR) Enterococc faecalis PCR Enterococc faecium PCR Human Metapneumovir PCR Influenza Type A (PCR) Influenza Type B (PCR) M. pneumoniae (PCR) Parainfluenza 1 (PCR) Parainfluenza 2 (PCR) Parainfluenza 3 (PCR) Parainfluenza 4 (PCR) RSV (PCR) Entero/Rhino (PCR) Viola/B-Vanco Res Genes Bld Cult ID Panel PCR Blood Parasites ID Cancelled Diagnostic Findings Microbiology 01/27/24 16:25 Urine,Clean Catch Urine Culture - Preliminary No growth - Less than 1,000 colonies/mL, Final report to follow. 01/27/24 16:14 Blood Aerobic Blood Culture - Preliminary Gram positive cocci in chains 01/27/24 16:14 Blood Anaerobic Blood Culture - Preliminary Gram positive cocci in chains 01/27/24 17:36 Blood Aerobic Blood Culture - Preliminary Gram positive cocci in chains 01/27/24 17:36 Blood Anaerobic Blood Culture - Preliminary Gram positive cocci in chains Chest X-Ray 01/27/24 16:13 XR chest 1V portable CLINICAL HISTORY: Sepsis COMPARISON STUDY: Chest CT December 21, 2017. Chest radiograph December 26, 2023. 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 Cardiomegaly is unchanged. There is no evidence for pulmonary edema. There is no pneumothorax or pleural effusion. There is no consolidation to suggest pneumonia. IMPRESSION: No acute cardiopulmonary findings. Cardiomegaly. ACT 112: Negative or not required by law. Electronically signed by: Eddy Bashir M.D. 01/27/2024 4:[address] 01/27/24 16:13 CT SCAN OF THE BRAIN WITHOUT IV CONTRAST CLINICAL HISTORY: Fall. COMPARISON STUDY: CT of the brain dated 04/12/2013. TECHNIQUE: Unenhanced axial CT scan of the brain is performed from the vertex to the skull base. A dose lowering technique was utilized adhering to the principles of ALARA. FINDINGS: Brain parenchyma: There is age-related involutional change noting mild subcortical and periventricular microangiopathic disease. There is no hemorrhage, mass effect, or evidence of acute territorial ischemia by CT criteria. Munoz-white matter differentiation is preserved. No extra-axial fluid collection is seen. Ventricles, sulci, cisterns: Prominent secondary to involutional change. Intracranial vasculature: There is atherosclerotic calcification of the cavernous carotid and vertebral arteries. Calvarium: Unremarkable. Sinuses and mastoids: The visualized paranasal sinuses are clear. The mastoid air cells are well pneumatized. Orbits: The bony orbits are grossly intact. IMPRESSION: There is no hemorrhage, mass effect, or evidence of acute territorial ischemia by CT criteria. ACT 112: Negative or not required by law. Electronically signed by: Vargas Perales M.D. 01/27/2024 4:58 PM Abdomen/Pelvis CT 01/27/24 16:44 CT OF THE ABDOMEN AND PELVIS WITHOUT CONTRAST CLINICAL HISTORY: poss divertic or maybe abscess, fever, confusion COMPARISON STUDY: CT of the abdomen August 20, 2017. TECHNIQUE: Axial images of the abdomen and pelvis were obtained without IV contrast. Images were reviewed in the axial, sagittal, and coronal planes. Automated exposure control was utilized for the study. A dose lowering technique was utilized adhering to the principles of ALARA. FINDINGS: There is a trace right pleural effusion. The heart is moderately enlarged. Ground glass opacities within the right lower lobe are present. No pneumatosis, free air or portal venous gas is present. There is no abnormality within the left nephrectomy bed. There is no right hydronephrosis. No urinary calculi are identified. Bladder wall thickening is likely chronic. Multiple water attenuation right renal lesions are suboptimally assessed on this unenhanced exam but likely reflect cysts. There is a 1.4 cm hyperdense nodule adjacent to the lower pole of the right kidney on image 177 of 357. There is no evidence for a bowel obstruction. There is no biliary ductal dilatation status post cholecystectomy. Multiple hypodense hepatic lesions are suboptimally assessed on this exam but were likely present on prior CT. These are likely benign. Spleen, adrenal glands and pancreas are unremarkable. The appendix is normal. There is no evidence for a bowel obstruction. Scattered colonic diverticula are noted. There is no evidence for acute diverticulitis. No ly mphadenopathy. There are no fluid collection. There are no acute fractures within the visualized skeletal structures. Status post Juan-en-Y gastric bypass. IMPRESSION: 1. Ground glass opacities within the right lower lobe which could reflect an infectious process or atelectasis. Trace right pleural effusion. 2. No evidence for a bowel obstruction status post Juan-en-Y gastric bypass. 3. Colonic diverticulosis. No evidence for acute diverticulitis. 4. 1.4 cm hypodense nodule adjacent to the lower pole of the right kidney. This could reflect a proteinaceous cyst or a solid lesion. Nonemergent renal ultrasound is recommended for further evaluation. ACT 112: Negative or not required by law. Electronically signed by: Eddy Bashir M.D. 01/27/2024 5:12 PM Renal Ultrasound 01/27/24 19:46 RENAL ULTRASOUND CLINICAL HISTORY: right kidney hypodense nodule on CT COMPARISON STUDY: CT of the abdomen and pelvis performed earlier today. TECHNIQUE: Sonography of the kidneys and the urinary bladder was performed. FINDINGS: The right kidney measures 13.4 cm and maximal dimension. There is no right hydronephrosis. A 1.3 cm anechoic lesion adjacent to the lower pole of the right kidney corresponds to the lesion in question on CT performed earlier today. Several additional right renal cysts are present. No solid right renal lesions are identified by sonography. No abnormalities identified within the left nephrectomy bed. Mild bladder wall thickening is accentuated by underdistention. IMPRESSION: 1. The lesion in question on CT performed earlier today represents a cyst. Several additional right renal cysts. No solid right renal lesions. 2. No right hydronephrosis. 3. No abnormality within the left nephrectomy bed. ACT 112: Negative or not required by law. Electronically signed by: Eddy Bashir M.D. 01/28/2024 7:03 AM Medications Administered Home Medications Medication Instructions Recorded Confirmed Last Taken amoxicillin 500 mg tablet 2,000 mg PO DIRECTED PRN 1 HOUR 11/16/18 01/27/24 Unknown PRIOR TO DENTAL PROCEDURES docusate sodium 100 mg capsule 100 mg PO QAM PRN Constipation 05/03/20 01/27/24 Unknown cholecalciferol (vitamin D3) 50 50 mcg PO DAILY 07/10/22 01/27/24 2 Days Ago mcg (2,000 unit) capsule (Vitamin ~12/20/23 D3) magnesium 250 mg tablet 250 mg PO HS 07/10/22 01/27/24 2 Days Ago ~12/20/23 cyanocobalamin (vitamin B-12) 1,000 mcg IM Q90D #30 mL 09/23/22 01/27/24 2 Days Ago 1,000 mcg/mL injection solution ~12/20/23 metolazone 5 mg tablet 5 mg PO DAILY PRN weight gain #30 10/23/22 01/27/24 Unknown tabs rivaroxaban 15 mg tablet 15 mg PO HS #90 tabs 02/09/23 01/27/24 2 Days Ago ~12/20/23 Portable Oxygen #1 ea 05/25/23 01/27/24 Unknown calcitriol 0.25 mcg capsule 0.5 mcg (2 x 0.25 mcg) PO QAM #180 08/11/23 01/27/24 2 Days Ago caps ~12/20/23 potassium chloride 10 mEq 10 meq PO BID #180 caps 09/29/23 01/27/24 2 Days Ago capsule,extended release ~12/20/23 cyclobenzaprine 5 mg tablet 5 mg PO BID PRN muscle 11/20/23 01/27/24 12/06/23 pain/stiffness #60 tabs bumetanide 2 mg tablet 3 mg PO QAM 12/22/23 01/27/24 2 Days Ago ~12/20/23 mupirocin 2 % topical ointment 1 applic topical TID PRN irritation 12/22/23 01/27/24 Unknown tamoxifen 20 mg tablet 20 mg PO QAM 12/22/23 01/27/24 2 Days Ago ~12/20/23 metoprolol succinate 25 mg 75 mg (3 x 25 mg) PO QPM #90 tabs 12/28/23 01/27/24 Unknown tablet,extended release 24 hr metoprolol succinate 50 mg 50 mg PO QAM #30 tabs 12/28/23 01/27/24 Unknown tablet,extended release 24 hr tramadol 50 mg tablet 50 mg PO BID PRN Pain #60 tabs 01/14/24 01/27/24 Unknown allopurinol 100 mg tablet 100 mg PO QAM #90 tabs 01/22/24 01/27/24 Unknown Active Medications Generic Name Dose Route Start Last Admin Trade Name Freq PRN Reason Stop Dose Admin Acetaminophen 650 mg 01/28/24 12:20 01/28/24 12:50 Acetaminophen 325 Mg Tab PO 02/27/24 12:19 650 mg Q6H PRN Administration Fever Allopurinol 100 mg 01/28/24 09:00 01/28/24 08:15 Allopurinol 100 Mg Tab PO 02/27/24 08:59 100 mg QAM BEHZAD Administration Calcitriol 0.5 mcg 01/28/24 09:00 01/28/24 08:15 Calcitriol 0.25 Mcg Capsule PO 02/27/24 08:59 0.5 mcg QAM BEHZAD Administration Linezolid 600 mg in 300 mls @ 300 mls/hr 01/28/24 14:00 01/28/24 15:34 Zyvox IV 02/11/24 13:59 Infused Q12H BEHZAD Infusion Sodium Chloride 1,000 mls @ 80 mls/hr 01/28/24 15:45 01/28/24 16:08 Nss IV 01/29/24 15:44 80 mls/hr .[id number] BEHZAD Infusion Magnesium Oxide 200 mg 01/27/24 22:00 01/27/24 22:28 Magnesium Oxide 400 Mg Tab PO 02/26/24 21:59 200 mg HS BEHZAD Administration Metoprolol Succinate 50 mg 01/28/24 09:00 01/28/24 09:34 Metoprolol Succ 50mg Ext Rel Tab PO 02/27/24 08:59 50 mg BID BEHZAD Administration Midodrine 10 mg 01/28/24 08:00 01/28/24 16:40 Midodrine Hcl 10 Mg Tab PO 02/27/24 07:59 10 mg TID@0800,1200,1700 BEHZAD Administration Rivaroxaban 15 mg 01/27/24 21:41 01/27/24 22:28 Rivaroxaban 15 Mg Tab PO 02/26/24 21:40 15 mg HS BEHZAD Administration (2) Fever Fever type: unspecified Qualified Code(s): R50.9 - Fever, unspecified
[2024-01-28] MEDS: POTASSIUM CHLORIDE CRTAB 20 MEQ TABCR PO SCH (20:32)
[2024-01-28] MEDS ORDERED: VANCOMYCIN 750 MG in D5W 250mL (Use w/ Shortage) IV SCH (21:00)
[2024-01-28] MEDS: DOCUSATE SODIUM 100 MG CAP PO PRN (21:37)
[2024-01-29 06:14] LABS: Calcium 8.2 mg/dl (8.6-10.3); Creatinine Clr Calc Pharmacy 27.5 ml/min
--- NOTE | 2024-01-29 09:48 | Infectious Disease Progress Nt ---
Date of Service January 29, 2024 Assessment & Plan (1) Bacteremia: (2) Fever: Plan This is an 83-year-old man with a past medical history bilateral knee replacement, aortic valve replacement spinal surgery, DM2, CKD presents to the ED status post fall and unable to get up. Noted to be weak and febrile. Complained of feeling thirsty, weak with chills. States he fell because he slipped off his bed In the ED febrile, temp 39.6, pulse 105, respiratory rate 33, blood pressure 108/79-->83/46 , O2 sats 91% on 2 L. Labs WBC 9.16, BUN 47, creatinine 2.73, total bili 2.4, MRSA nasal screen positive. Respiratory viral panel negative, Biofire PCR positive for VRE. BC with 4/4 GPC. Urinalysis 0-5 WBC. Chest x-ray no consolidations. Head CT no acute findings. CT abdomen/pelvis groundglass opacities within the right lobe which could reflect atelectasis versus infectious process. No evidence of bowel obstruction post Juan-en-Y bypass. Possible proteinaceous cyst versus solid lesion on the right kidney. Renal ultrasound shows that this lesion is more consistent with a cyst. Several additional renal cysts noted. No hydronephrosis. He received Cefepime,Doxycycline and vancomycin. He has been started o Linezolid . ID consulted for GPC bacteremia. E Microbiology: Blood culture 01/26 07/01 bottles GPC in chains ( VRE on biofire) Urine culture 01/27/2024 NGTD MRSA nares + 01/26 Antibiotics: Cefepime 01/26 Vancomycin 01/27 Doxycycline 01/26 Linezolid daptomycin 01/28-ongoing #VRE bacteremia #Sepsis # Poor dentition with dental pain and gum ulcer # Multiple exvcoriated lesions on abdomen, ongoing for months per pt #S/p Aortic valve placement #BL TKA #S/P spinal surgery, no hardware per his report # CKD # Thrombocytopenia Discussion: VRE bacteremia, source unclear. He is status post aortic valve placement, bilateral TKA and spinal surgery. No spinal hardware per his report. BL knee does not appear acutely infected. No spinal tenderness. He has poor dentition with an ulcer in the R gum that he states has been " draining for a fe w week" and was pending dental eval and root canal. He has excoriated papules on upper abd that are pruritic- ongoing for months per his report , states it " drains crystal" These areas need to be evaluated as possible sources. No mention of back or knee pain per review of chart. Per review of exam no knee effusions. Recommendations discontinued Linezolid and started Daptomycin 10 mg/kg IV per abw Q 48 hrs ( crcl < 30) CPK 41 If crcl > 30 , change to daily dosing Dental eval/ CT maxillofacial Check transthoracic echocardiogram Repeat blood culture ordered DW team ID will continue to follow Willie Marshall MD, MPH Infectious Disease [facility] Call [phone] with questions Admission and Anticipated Discharge Date Admission Date: January 27, 2024 Subjective Subsequent visit was provided via telemedicine using two-way real-time interactive telecommunication between the patient and the telemedicine provider. For the duration of the visit, the provider was performing the assessment from a different facility than the patient. This includesuse of bluetooth stethoscope forauscultationperformed by the telepresenter that the telemedicine provider can hear if described in the physical exam. Production Checker contact information: Please call [facility] Call Center [phone]. (Phone Number For Physician Use Only) After establishing a telemedicine visit, patient was: Patient was verified with two unique identifiers Time Spent with Patient: Subsequent => 35 min Complains of itching at skin lesions on abdomen and dental pain CK 41 Afebrile Physical Exam Physical Exam: Gen- Nad Heent- poor dentition. R upper gum lesion/ulcer Lungs- NO increased wob Skin- multiple scattered excoriatd dried lesions on epigastric area- tender, warm. Well heeled BL TKA incisions, some ue bruising LE - BL 1 + edema . No knee effusion Neuro- AAOtimes 3 Psych- normal mood, cooperative Results & Data Vital Signs (Past 12 Hours) Vital Signs Temp Pulse Pulse Resp BP Pulse Ox O2 Del Method 01/29/24 09:18 81 01/29/24 08:28 Nasal Cannula 01/29/24 08:06 36.8 C 82 16 84/56 L 97 Nasal Cannula 01/29/24 03:02 36.5 C 72 21 101/68 94 BiPAP 01/29/24 00:07 36.3 C L 81 18 90/61 L 99 CPAP 01/28/24 21:56 82 O2 Flow Rate 01/29/24 09:18 01/29/24 08:28 3 01/29/24 08:06 3 01/29/24 03:02 3.0 01/29/24 00:07 01/28/24 21:56 Laboratory Results [facility] 01/29/24 05:22 Sodium 140 Potassium 3.0 L Chloride 104 Carbon Dioxide 32 BUN 47 H Creatinine 2.48 H Glucose 109 H Calcium 8.2 L Cardiac Enzymes 01/29/24 Range/Units 05:22 Total Creatine Kinase 41 (30-223) U/L Diagnostic Findings Microbiology 01/27/24 16:25 Urine,Clean Catch Urine Culture - Preliminary No growth - Less than 1,000 colonies/mL, Final report to follow. 01/27/24 16:14 Blood Aerobic Blood Culture - Preliminary Gram positive cocci in chains 01/27/24 16:14 Blood Anaerobic Blood Culture - Preliminary Gram positive cocci in chains 01/27/24 17:36 Blood Aerobic Blood Culture - Preliminary Gram positive cocci in chains 01/27/24 17:36 Blood Anaerobic Blood Culture - Preliminary Gram positive cocci in chains Chest X-Ray 01/27/24 16:13 XR chest 1V portable CLINICAL HISTORY: Sepsis COMPARISON STUDY: Chest CT December 21, 2017. Chest radiograph December 26, 2023. 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 Cardiomegaly is unchanged. There is no evidence for pulmonary edema. There is no pneumothorax or pleural effusion. There is no consolidation to suggest pneumonia. IMPRESSION: No acute cardiopulmonary findings. Cardiomegaly. ACT 112: Negative or not required by law. Electronically signed by: Eddy Bashir M.D. 01/27/2024 4:[address] 01/27/24 16:13 CT SCAN OF THE BRAIN WITHOUT IV CONTRAST CLINICAL HISTORY: Fall. COMPARISON STUDY: CT of the brain dated 04/12/2013. TECHNIQUE: Unenhanced axial CT scan of the brain is performed from the vertex to the skull base. A dose lowering technique was utilized adhering to the principles of ALARA. FINDINGS: Brain parenchyma: There is age-related involutional change noting mild subcortical and periventricular microangiopathic disease. There is no hemorrhage, mass effect, or evidence of acute territorial ischemia by CT criteria. Munoz-white matter differentiation is preserved. No extra-axial fluid collection is seen. Ventricles, sulci, cisterns: Prominent secondary to involutional change. Intracranial vasculature: There is atherosclerotic calcification of the cavernous carotid and vertebral arteries. Calvarium: Unremarkable. Sinuses and mastoids: The visualized paranasal sinuses are clear. The mastoid air cells are well pneumatized. Orbits: The bony orbits are grossly intact. IMPRESSION: There is no hemorrhage, mass effect, or evidence of acute territorial ischemia by CT criteria. ACT 112: Negative or not required by law. Electronically signed by: Vargas Perales M.D. 01/27/2024 4:58 PM Abdomen/Pelvis CT 01/27/24 16:44 CT OF THE ABDOMEN AND PELVIS WITHOUT CONTRAST CLINICAL HISTORY: poss divertic or maybe abscess, fever, confusion COMPARISON STUDY: CT of the abdomen August 20, 2017. TECHNIQUE: Axial images of the abdomen and pelvis were obtained without IV contrast. Images were reviewed in the axial, sagittal, and coronal planes. Automated exposure control was utilized for the study. A dose lowering sofia hnique was utilized adhering to the principles of ALARA. FINDINGS: There is a trace right pleural effusion. The heart is moderately enlarged. Ground glass opacities within the right lower lobe are present. No pneumatosis, free air or portal venous gas is present. There is no abnormality within the left nephrectomy bed. There is no right hydronephrosis. No urinary calculi are identified. Bladder wall thickening is likely chronic. Multiple water attenuation right renal lesions are suboptimally assessed on this unenhanced exam but likely reflect cysts. There is a 1.4 cm hyperdense nodule ad jacent to the lower pole of the right kidney on image 177 of 357. There is no evidence for a bowel obstruction. There is no biliary ductal dilatation status post cholecystectomy. Multiple hypodense hepatic lesions are suboptimally assessed on this exam but were likely present on prior CT. These are likely benign. Spleen, adrenal glands and pancreas are unremarkable. The appendix is normal. There is no evidence for a bowel obstruction. Scattered colonic diverticula are noted. There is no evidence for acute diverticulitis. No lymphadenopathy. There are no fluid collection. There are no acute fractures within the visualized skeletal structures. Status post Juan-en-Y gastric bypass. IMPRESSION: 1. Ground glass opacities within the right lower lobe which could reflect an infectious process or atelectasis. Trace right pleural effusion. 2. No evidence for a bowel obstruction status post Juan-en-Y gastric bypass. 3. Colonic diverticulosis. No evidence for acute diverticulitis. 4. 1.4 cm hypodense nodule adjacent to the lower pole of the right kidney. This could reflect a proteinaceous cyst or a solid lesion. Nonemergent renal ultrasound is recommended for further evaluation. ACT 112: Negative or not required by law. Electronically signed by: Eddy Bashir M.D. 01/27/2024 5:12 PM Renal Ultrasound 01/27/24 19:46 RENAL ULTRASOUND CLINICAL HISTORY: right kidney hypodense nodule on CT COMPARISON STUDY: CT of the abdomen and pelvis performed earlier today. TECHNIQUE: Sonography of the kidneys and the urinary bladder was performed. FINDINGS: The right kidney measures 13.4 cm and maximal dimension. There is no right hydronephrosis. A 1.3 cm anechoic lesion adjacent to the lower pole of the right kidney corresponds to the lesion in question on CT performed earlier today. Several additional right renal cysts are present. No solid right renal lesions are identified by sonography. No abnormalities identified within the left nephrectomy bed. Mild bladder wall thickening is accentuated by underdistention. IMPRESSION: 1. The lesion in question on CT performed earlier today represents a cyst. Several additional right renal cysts. No solid right renal lesions. 2. No right hydronephrosis. 3. No abnormality within the left nephrectomy bed. ACT 112: Negative or not required by law. Electronically signed by: Eddy Bashir M.D. 01/28/2024 7:03 AM Medications Administered Home Medications Medication Instructions Recorded Confirmed Last Taken amoxicillin 500 mg tablet 2,000 mg PO DIRECTED PRN 1 HOUR 11/16/18 01/27/24 Unknown PRIOR TO DENTAL PROCEDURES docusate sodium 100 mg capsule 100 mg PO QAM PRN Constipation 05/03/20 01/27/24 Unknown cholecalciferol (vitamin D3) 50 50 mcg PO DAILY 07/10/22 01/27/24 2 Days Ago mcg (2,000 unit) capsule (Vitamin ~12/20/23 D3) magnesium 250 mg tablet 250 mg PO HS 07/10/22 01/27/24 2 Days Ago ~12/20/23 cyanocobalamin (vitamin B-12) 1,000 mcg IM Q90D #30 mL 09/23/22 01/27/24 2 Days Ago 1,000 mcg/mL injection solution ~12/20/23 metolazone 5 mg tablet 5 mg PO DAILY PRN weight gain #30 10/23/22 01/27/24 Unknown tabs rivaroxaban 15 mg tablet 15 mg PO HS #90 tabs 02/09/23 01/27/24 2 Days Ago ~12/20/23 Portable Oxygen #1 ea 05/25/23 01/27/24 Unknown calcitriol 0.25 mcg capsule 0.5 mcg (2 x 0.25 mcg) PO QAM #180 08/11/23 01/27/24 2 Days Ago caps ~12/20/23 potassium chloride 10 mEq 10 meq PO BID #180 caps 09/29/23 01/27/24 2 Days Ago capsule,extended release ~12/20/23 cyclobenzaprine 5 mg tablet 5 mg PO BID PRN muscle 11/20/23 01/27/24 12/06/23 pain/stiffness #60 tabs bumetanide 2 mg tablet 3 mg PO QAM 12/22/23 01/27/24 2 Days Ago ~12/20/23 mupirocin 2 % topical ointment 1 applic topical TID PRN irritation 12/22/23 01/27/24 Unknown tamoxifen 20 mg tablet 20 mg PO QAM 12/22/23 01/27/24 2 Days Ago ~12/20/23 metoprolol succinate 25 mg 75 mg (3 x 25 mg) PO QPM #90 tabs 12/28/23 01/27/24 Unknown tablet,extended release 24 hr metoprolol succinate 50 mg 50 mg PO QAM #30 tabs 12/28/23 01/27/24 Unknown tablet,extended release 24 hr tramadol 50 mg tablet 50 mg PO BID PRN Pain #60 tabs 01/14/24 01/27/24 Unknown allopurinol 100 mg tablet 100 mg PO QAM #90 tabs 01/22/24 01/27/24 Unknown Active Medications Generic Name Dose Route Start Last Admin Trade Name Freq PRN Reason Stop Dose Admin Acetaminophen 650 mg 01/28/24 12:20 01/28/24 20:31 Acetaminophen 325 Mg Tab PO 02/27/24 12:19 650 mg Q6H PRN Administration Fever Allopurinol 100 mg 01/28/24 09:00 01/29/24 08:17 Allopurinol 100 Mg Tab PO 02/27/24 08:59 100 mg QAM BEHZAD Administration Calcitriol 0.5 mcg 01/28/24 09:00 01/29/24 08:17 Calcitriol 0.25 Mcg Capsule PO 02/27/24 08:59 0.5 mcg QAM BEHZAD Administration Docusate Sodium 100 mg 01/28/24 21:06 01/28/24 21:37 Docusate Sodium 100 Mg Cap PO 02/28/24 08:59 100 mg DAILY PRN Administration constipation Linezolid 600 mg in 300 mls @ 300 mls/hr 01/28/24 14:00 01/29/24 02:41 Zyvox IV 02/11/24 13:59 Infused Q12H BEHZAD Infusion Sodium Chloride 1,000 mls @ 80 mls/hr 01/28/24 15:45 01/28/24 23:48 Nss IV 01/29/24 15:44 80 mls/hr .[id number] BEHZAD Administration Magnesium Oxide 200 mg 01/27/24 22:00 01/28/24 20:32 Magnesium Oxide 400 Mg Tab PO 02/26/24 21:59 200 mg HS BEHZAD Administration Metoprolol Succinate 50 mg 01/28/24 09:00 01/29/24 08:17 Metoprolol Succ 50mg Ext Rel Tab PO 02/27/24 08:59 Not Given BID BEHZAD Midodrine 10 mg 01/28/24 08:00 01/29/24 08:17 Midodrine Hcl 10 Mg Tab PO 02/27/24 07:59 10 mg TID@0800,1200,1700 BEHZAD Administration Potassium Chloride 20 meq 01/28/24 21:00 01/29/24 08:20 Potassium Chloride Crtab 20 Meq Tabcr PO 02/27/24 20:59 20 meq BID BEHZAD Administration Rivaroxaban 15 mg 01/27/24 21:41 01/28/24 20:33 Rivaroxaban 15 Mg Tab PO 02/26/24 21:40 15 mg HS BEHZAD Administration (2) Fever Fever type: unspecified Qualified Code(s): R50.9 - Fever, unspecified
[2024-01-29] MEDS: oxyCODONE HCL IR 5 MG TAB (IMMEDIATE RELEASE) ONE (11:06)
[2024-01-29] MEDS: DAPTOmycin 825 MG in SYRINGE 0 ML IV SCH (12:35)
--- NOTE | 2024-01-29 13:00 | Hospitalist Progress Note ---
Date of Service January 29, 2024 Assessment & Plan (1) Septic shock: Plan: Present on admission. Resolved with IV fluids and addition of scheduled midodrine. Treat underlying infectious process. Supportive care (2) Bacteremia: Plan: Gram-positive cocci isolated in blood cultures. Possibly from skin or dental etiology. Antibiotics have been switched to IV daptomycin. Appreciate infectious disease consultation. Repeat cardiac echo ordered at their request along with oral maxillofacial surgery consultation to evaluate his poor dentition, also a possible source of infection. (3) Abnormal CT of the abdomen: Plan: Renal US reveals a benign-appearing right renal cyst. This can be followed further as an outpatient (4) Fall: Plan: Supportive care. OT and PT evaluations. Mechanical fall (5) Chronic diastolic CHF (congestive heart failure): Plan: No overt CHF on admission. Monitor intake and output. (6) Chronic renal insufficiency, stage IV (severe): Plan: Monitor intake and output. Serial labs (7) Atrial fibrillation: Plan: Chronic atrial fibrillation. Heart rate is controlled. Metoprolol has been restarted. Continue Xarelto. Telemetry (8) Hypokalemia: Plan: Oral replacement. Serial labs (9) Hip pain, right: Plan: No injury. X-ray ordered. Pain control measures Plan To be determined Admission and Anticipated Discharge Date Admission Date: January 27, 2024 Subjective Alert and oriented. No distress. He is complaining of right hip pain which will be x-rayed. Case discussed with infectious disease. He is now on daptomycin therapy. Cardiac echo will be ordered to reevaluate his bioprosthetic aortic valve. He has poor dentition which could be a source of the bacteremia. Oral maxillofacial surgery consultation requested. Blood pressure is chronically on the low side and he is on midodrine 10 mg 3 times a day. He received another fluid bolus this morning and will continue IV fluids for now. Blood cultures revealed gram-positive cocci which could be Enterococcus. Potassium remains low. Oral supplementation increased from twice daily to 3 times daily Review of Systems 2 Review of Systems: Constitutionalno fever or chills. Generalized weakness ENTno blurred vision, no double vision, no epistaxis, no sore throat Respiratoryno cough, no wheezing, no shortness of breath Cardiacno palpitations, no chest pain, no syncope Daniela nausea, vomiting, diarrhea, melena, hematochezia GUno urinary retention, no urinary incontinence, no dysuria, no hematuria Musculoskeletalno joint pain, no muscle tenderness Skinpruritic scattered excoriations on the trunk Neurogeneralized weakness. No paresthesia Psychno depression, no anxiety Physical Exam 2 Physical Exam: General-alert and oriented x3, low-grade fever. Denies rigors HEENT-head atraumatic and normocephalic, pupils equal and reactive to light, extraocular muscles intact Neck-no lymphadenopathy or thyromegaly, trachea midline Chest-clear to auscultation. No rales, wheezing or rhonchi Cardiac-irregular rhythm. Controlled rate. Normal S1 and S2 Abdomen-normal bowel sounds, no hepatosplenomegaly Skinscattered excoriated appearing lesions on the abdomen Extremities-no cyanosis, clubbing, or edema Neuro-cranial nerves II through XII intact, motor and sensory function within normal limits, strength symmetrical with generalized weakness, no focal deficits Psych-normal affect, normal mood Results & Data Results & Data Vital Signs (Past 12 Hours) Vital Signs Temp Pulse Pulse Resp BP BP Pulse Ox 01/29/24 10:59 36.8 C 123 H 20 93/66 L 98 01/29/24 09:18 81 01/29/24 08:28 01/29/24 08:06 36.8 C 82 16 84/56 L 97 01/29/24 03:02 36.5 C 72 21 101/68 94 O2 Del Method O2 Flow Rate 01/29/24 10:59 Nasal Cannula 3.0 01/29/24 09:18 01/29/24 08:28 Nasal Cannula 3 01/29/24 08:06 Nasal Cannula 3 01/29/24 03:02 BiPAP 3.0 Laboratory Results 01/28/24 08:25 01/29/24 05:22 PG Care Time/CCT Total # of Minutes Spent Total Time Spent with Patient: Total time spent is greater than 50% in coordination of care (as documented) at patient's floor/unit and/or counseling patient: Coding Level of Care Code 19033 SUB INP/OBS CARE 3/50MIN Diagnoses Septic shock A41.9; R65.[address] of the abdomen R93.5 Fall W19.XXXA Encounter type: initial encounter Chronic diastolic CHF (congestive heart failure) I50.32 Chronic renal insufficiency, stage IV (severe) N18.4 Atrial fibrillation I48.21 Atrial fibrillation type: permanent Hypokalemia E87.6 Hip pain, right M25.551 (4) Fall Encounter type: initial encounter Qualified Code(s): W19.XXXA - Unspecified fall, initial encounter (7) Atrial fibrillation Atrial fibrillation type: permanent Qualified Code(s): I48.21 - Permanent atrial fibrillation
--- NOTE | 2024-01-29 13:22 | XCELERA ---
[id number]
[2024-01-29] MEDS ORDERED: methylPREDNISolone 10 mg/mL (For Ped Dose < 7mg) IV SCH (14:45)
--- NOTE | 2024-01-29 15:01 | XRay Report ---
XR hip RT min 2V CLINICAL HISTORY: Right hip pain. COMPARISON: Right hip radiographs August 23, 2014. CT of the abdomen and pelvis January 27, 2024. FINDINGS: Alignment of the right hip is anatomic. There is no acute fracture. There are no osseous l esions. Right hip joint space is preserved. There is no evidence for avascular necrosis of the right femoral head. There is minimal right hip osteophytosis. IMPRESSION: 1. No fractures within the right hip. 2. Minimal degenerative changes within the right hip. ACT 112: Negative or not required by law. Electronically signed by: Eddy Bashir M.D. 01/29/2024 2:59 PM
[2024-01-29] MEDS: oxyCODONE HCL IR 5 MG TAB (IMMEDIATE RELEASE) PO STA (15:07)
--- NOTE | 2024-01-29 15:17 | Oral/Maxillofacial Progress Nt ---
Date of Service January 29, 2024 Assessment & Plan (1) Excessive attrition of teeth, extending into dentine: (2) Chronic dental pain: Admission and Anticipated Discharge Date Admission Date: January 27, 2024 Subjective Oral Maxillofacial Surgery Exam Present Complaint: I have pain from the upper right posterior infected teeth. Symptoms have been ongoing for a while. His dentist attempted to preform a root canal but was not able. He will be referred from a root canal evaluation by an toll line inspector. Oral Exam: Finding--very worn down teeth with exposure of the dentin Imaging: I will order a CT scan for a more detailed evaluation of the roots and teeth Soft tissue: Over all the floor of the mouth, tongue, hard/soft palate, posterior pharyngeal area all with in normal limits, no pathology or abnormal findings noted. No lesions noted that require follow up or Bx. No acute infection, fistula Oral Care: Overall oral care is good despite the significant rivera of th eteeth Occlusion: Class I TMJ exam: No pop, clicking, pain, good ROM, No history of TMJ injury or dysfunction Periodontal exam: Healthy gingival tissue without evidence of periodontal pathology. Head/Neck exam: Neck is supple, FROM, Able to extend and flex neck w/o difficulty, no masses, no abnormalities, no airway issues. Treatment Plan: Order CT scan Call his dentist to get an update of the results of his recent dental exam Once I review the CT and discuss with dentist I can finalize the treatment plan regarding the need for any extractions while in the hospital as a potential source of infection I reviewed the treatment plan and consent with the patient Understanding was expressed. Risks discussed if extractions re necessary continuing with planed root canal therapy. Bleeding,Pain,swelling,infection, dry socket, delayed healing, nerve injury to face,lips,tongue,chin area which could be permanent (rare). TMJ, jaw stiffness, change in bite (rare), ear pain (referred). Sinus problems like fistula or infection. Need to leave a small root fragment in place to avoid injury to nerve or sinus. Relationship of wisdom teeth to nerve/sinus and risk of jaw fracture. will follow up with Mr Antoine on Thursday after I discuss with his dentist and review the CT Results & Data Vital Signs (Past 12 Hours) Vital Signs Temp Pulse Pulse Resp BP BP Pulse Ox 01/29/24 10:59 36.8 C 123 H 20 93/66 L 98 01/29/24 09:18 81 01/29/24 08:28 01/29/24 08:06 36.8 C 82 16 84/56 L 97 O2 Del Method O2 Flow Rate 01/29/24 10:59 Nasal Cannula 3.0 01/29/24 09:18 01/29/24 08:28 Nasal Cannula 3 01/29/24 08:06 Nasal Cannula 3 PG Care Time/CCT Total # of Minutes Spent Total Time Spent with Patient: Total time spent is greater than 50% in coordination of care (as documented) at patient's floor/unit and/or counseling patient: Coding Level of Care Code 00812 SUB INP/OBS CARE 2/35MIN Diagnoses Excessive attrition of teeth, extending into dentine K03.0 Chronic dental pain K08.9; G89.29
[2024-01-29] MEDS: POTASSIUM CHLORIDE CRTAB 20 MEQ TABCR PO SCH (15:19)
[2024-01-29] MEDS: methylPREDNISolone 40 MG in SYRINGE 0 ML IV SCH (15:19)
[2024-01-29] MEDS: SODIUM CHLORIDE 0.9% 1,000 ML IV SCH (15:24)
--- NOTE | 2024-01-30 00:21 | CT Scan Report ---
Exam(s): CT FACIAL Without Contrast EXAM: CT Head and Maxillofacial Without Intravenous Contrast CLINICAL HISTORY: Reason for exam: dental pain with ongoing septic bacteremia. TECHNIQUE: Axial computed tomography images of the head/brain and face without intravenous contrast. CTDI is 36.26 mGy and DLP is 756.99 mGy-cm. Automated exposure control was utilized for the study. A dose lowering technique was utilized adhering to the principles of ALARA. COMPARISON: No relevant prior studies available. FINDINGS: Brain: Unremarkable. No hemorrhage. No significant white matter disease. No edema. Ventricles: Unremarkable. No ventriculomegaly. Bones/joints: No acute fracture. Dental caries with periapical lucencies about tooth #3, 22 and 25 concerning for periapical abscesses. Multiple root canals. Soft tissues: Unremarkable. Sinuses: Unremarkable as visualized. No acute sinusitis. Mastoid air cells: Unremarkable as visualized. No mastoid effusion. Orbits: Unremarkable as visualized. IMPRESSION: Dental caries with periapical lucencies about tooth #3, 22 and 25 concerning for periapical abscesses. Recommend dental consult. Electronically signed by: Gayle Valerio MD 01/30/24 00:21 AM
[2024-01-30 06:17] LABS: BUN Creatinine Ratio 19.5 (10-20); Calcium 8.7 mg/dl (8.6-10.3); Potassium 3.5 mmol/L (3.5-5.1)
--- NOTE | 2024-01-30 11:06 | Hospitalist Progress Note ---
Date of Service January 30, 2024 Assessment & Plan (1) Septic shock: Plan: Present on admission. Resolved with IV fluids and addition of scheduled midodrine. Treat underlying infectious process. Supportive care. Metoprolol succinate switched to metoprolol to tartrate and dosage decreased (2) Bacteremia: Plan: Enterococcus faecalis isolated in blood cultures drawn January 26. Repeat Jaime blood cultures drawn on January 28 are negative to date. He is now on daptomycin. Appreciate infectious disease consultation and recommendations. Facial CT scan reveals 3 periapical abscesses that will need to be treated at a later date as an outpatient. These could certainly be the cause of the enterococcal bacteremia. The infection could also possibly be from a skin infection. Cardiac echo does not show any obvious aortic bioprosthetic valve vegetations. (3) Abnormal CT of the abdomen: Plan: Renal US reveals a benign-appearing right renal cyst. This can be followed further as an outpatient (4) Fall: Plan: Supportive care. OT and PT evaluations. Mechanical fall (5) Chronic diastolic CHF (congestive heart failure): Plan: No overt CHF on admission. Monitor intake and output. (6) Chronic renal insufficiency, stage IV (severe): Plan: Monitor intake and output. Serial labs (7) Atrial fibrillation: Plan: Chronic atrial fibrillation. Heart rate is controlled. Metoprolol has been restarted and succinate form switched to tartrate form and the dose has been lowered. Continue Xarelto. Telemetry (8) Hypokalemia: Plan: Oral replacement. Serial labs (9) Hip pain, right: Plan: No injury. X-ray reveals mild degenerative changes. He is responding to parenteral methylprednisolone therapy. Plan OT and PT assessments requested. He may need short-term placement at discharge Admission and Anticipated Discharge Date Admission Date: January 27, 2024 Subjective Alert and oriented. No distress. Dr. Whitney consultation appreciated. Face CT scan reveals evidence of 3 periapical abscesses that we will need to be treated as an outpatient. These certainly could be the source of the Enterococcus faecalis bacteremia. Infectious disease consultation appreciated. He is now on daptomycin therapy. Transthoracic cardiac echo reveals no obvious vegetations on the bovine bioprosthetic aortic valve. Right hip pain has improved considerably with Solu-Medrol treatment, day 2. Oral potassium supplementation ordered for hypokalemia. Metoprolol succinate switched to metoprolol to tartrate dosage and down titrated due to low blood pressure. Review of Systems 2 Review of Systems: Constitutionalno fever or chills. Generalized weakness ENTno blurred vision, no double vision, no epistaxis, no sore throat Respiratoryno cough, no wheezing, no shortness of breath Cardiacno palpitations, no chest pain, no syncope Daniela nausea, vomiting, diarrhea, melena, hematochezia GUno urinary retention, no urinary incontinence, no dysuria, no hematuria Musculoskeletalno joint pain, no muscle tenderness Skinpruritic scattered excoriations on the trunk Neurogeneralized weakness. No paresthesia Psychno depression, no anxiety Physical Exam 2 Physical Exam: General-alert and oriented x3, low-grade fever. Denies rigors HEENT-head atraumatic and normocephalic, pupils equal and reactive to light, extraocular muscles intact Neck-no lymphadenopathy or thyromegaly, trachea midline Chest-clear to auscultation. No rales, wheezing or rhonchi Cardiac-irregular rhythm. Controlled rate. Normal S1 and S2 Abdomen-normal bowel sounds, no hepatosplenomegaly Skinscattered excoriated appearing lesions on the abdomen Extremities-no cyanosis, clubbing, or edema Neuro-cranial nerves II through XII intact, motor and sensory function within normal limits, strength symmetrical with generalized weakness, no focal deficits Psych-normal affect, normal mood Results & Data Results & Data Vital Signs (Past 12 Hours) Vital Signs Temp Pulse Resp BP Pulse Ox O2 Del Method O2 Flow Rate 01/30/24 10:29 36.4 C L 99 H 16 106/74 97 Nasal Cannula 3 01/30/24 09:15 101/65 01/30/24 08:15 Nasal Cannula 3 01/30/24 07:19 36.2 C L 76 16 97/67 L 97 CPAP 3 01/30/24 03:51 36.6 C 63 18 97/68 L 95 CPAP 01/29/24 23:25 36.5 C 79 18 106/73 96 CPAP Laboratory Results 01/28/24 08:25 01/30/24 05:11 PG Care Time/CCT Total # of Minutes Spent Total Time Spent with Patient: Total time spent is greater than 50% in coordination of care (as documented) at patient's floor/unit and/or counseling patient: Coding Level of Care Code 37035 SUB INP/OBS CARE 3/50MIN Diagnoses Septic shock A41.9; R65.[address] of the abdomen R93.5 Fall W19.XXXA Encounter type: initial encounter Chronic diastolic CHF (congestive heart failure) I50.32 Chronic renal insufficiency, stage IV (severe) N18.4 Atrial fibrillation I48.21 Atrial fibrillation type: permanent Hypokalemia E87.6 Hip pain, right M25.551 (4) Fall Encounter type: initial encounter Qualified Code(s): W19.XXXA - Unspecified fall, initial encounter (7) Atrial fibrillation Atrial fibrillation type: permanent Qualified Code(s): I48.21 - Permanent atrial fibrillation
[2024-01-30] MEDS: METOPROLOL TARTRATE 25 MG TAB PO SCH (11:12)
[2024-01-31] MEDS: MoRPHine SULFATE 2 MG/ML CARP IV STA (02:27)
[2024-01-31] MEDS: LORazepam 2 MG/1 ML VIAL IV STA (02:47)
[2024-01-31] MEDS: BACLOFEN 10 MG TAB PO ONE ×2 (03:25→03:40)
[2024-01-31 05:18] LABS: Basophils # (auto) 0.01 K/uL (0.00-0.20); Basophils % (auto) 0.1 %; Hematocrit (blood only) 37.2 % (42.0-52.0); Hemoglobin 11.7 g/dl (14.0-18.0); Immature Granulocytes # (auto) 0.24 K/uL (0.01-0.20); Immature Granulocytes % (auto) 2.2 %; Lymphocytes # (auto) 0.77 K/uL (1.20-3.40); Lymphocytes % (auto) 6.9 %; Mean Corpuscular Hemoglobin 26.8 pg (25.0-34.0); Mean Corpuscular Hgb Conc 31.5 g/dL (32.0-36.0); Mean Corpuscular Volume 85.1 fL (80.0-100.0); Mean Platelet Volume 11.5 fL (9.4-12.4); Monocytes # (auto) 0.25 K/uL (0.11-0.59); Monocytes % (auto) 2.2 %; Neutrophils # (auto) 9.86 K/uL (1.40-6.50); Neutrophils % (auto) 88.6 %; Platelet Count 129 K/uL (130-400); RDW Coefficient of Variation 18.3 % (11.5-14.5); RDW Standard Deviation 56.7 fL (36.4-46.3); Red Blood Count 4.37 M/uL (4.70-6.10); White Blood Count 11.13 K/ul (4.8-10.8)
[2024-01-31 05:31] LABS: Calcium 9.2 mg/dl (8.6-10.3); Potassium 4.1 mmol/L (3.5-5.1)
[2024-01-31 05:36] LABS: BUN Creatinine Ratio 23.9 (10-20); Creatinine Clr Calc Pharmacy 31.8 ml/min
[2024-01-31 06:22] LABS: Babesia microti DNA Not Detected (Not Detected)
--- NOTE | 2024-01-31 08:47 | Oral/Maxillofacial Progress Nt ---
Date of Service January 31, 2024 Assessment & Plan Admission and Anticipated Discharge Date Admission Date: January 27, 2024 Subjective I reviewed the CT scan and noted the 3 areas of concern. The upper first molar # 3 was planned for a root canal but his dentist was not able to find the canals and therefore made an appointment for an horizontal boring mill set up operator to take over the treatment. This was not done given that Ed was admitted to the hospital. After reviewing the CT scan the prognosis of # 3 is guarded as the canals look calcified and associated periodontal bone loss. I will call his dentist Thursday AM to get his opinion regarding extraction of tooth # 3. Regarding the other 2 areas the lower left last tooth # 21 has a failing root canal and is somewhat symptomatic to pressure as is tooth # 3. The periapical lesion associated with tooth # 25 is very small and given that there is a well placed root canal filling in # 25 and the tooth is asymptomatic this in my opinion is an apical scar. Extraction of # 25 is not indicated. Given that Mr Antoine is symptomatic with tooth # 3 and 21 if he is stable to undergo IV sedation or General anesthesia It would be best to extract these teeth before discharge if medically stable. If it is more prudent to discharge and treat in the future as out patient that can also be arranged. Please let me know how we should proceed regarding the 2 infected symptomatic teeth. Results & Data Vital Signs (Past 12 Hours) Vital Signs Temp Pulse Pulse Resp BP BP Pulse Ox 01/31/24 07:10 82 01/31/24 02:53 111 H 24 105/70 96 01/31/24 02:16 36.3 C L 115 H 34 H 113/68 100 01/30/24 22:36 35.8 C L 77 17 93/66 L 97 01/30/24 21:58 71 01/30/24 21:41 Pulse Ox O2 Del Method O2 Del Method O2 Flow Rate O2 Flow Rate 01/31/24 07:10 01/31/24 02:53 Nasal Cannula 3 01/31/24 02:16 Nasal Cannula 6 01/30/24 22:36 Nasal Cannula 3 01/30/24 21:58 01/30/24 21:41 98 Nasal Cannula 3 PG Care Time/CCT Total # of Minutes Spent Total Time Spent with Patient: Total time spent is greater than 50% in coordination of care (as documented) at patient's floor/unit and/or counseling patient: Coding Level of Care Code None
--- NOTE | 2024-01-31 09:08 | XRay Report ---
XR chest 1V portable HISTORY: 83 years-old Male hypoxia COMPARISON: 01/27/2024 TECHNIQUE: AP view of the chest FINDINGS: Cardiac silhouette is enlarged. Median sternotomy with cardiac valvular prosthesis. Atherosclerosis o f the aorta. No pneumothorax. Pulmonary vascular congestion with interstitial coarsening. Small pleur al effusions with bibasilar consolidation. Bones appear grossly intact. IMPRESSION: 1. Cardiomegaly with interstitial pulmonary edema. 2. Layering pleural effusions with bibasilar consolidation favoring atelectasis. Pneumonia could appe ar similarly. ACT 112: Negative or not required by law. The above report was generated using voice recognition software. It may contain grammatical, syntax o r spelling errors. Electronically signed by: Pedro Pablo Goode M.D. 01/31/2024 9:06 AM
[2024-01-31] MEDS: FUROSEMIDE 40 MG/4 ML VIAL IV SCH (09:39)
[2024-01-31] MEDS: METOPROLOL TARTRATE 50 MG TAB PO SCH (09:56)
--- NOTE | 2024-01-31 15:20 | Hospitalist Progress Note ---
Date of Service January 31, 2024 Assessment & Plan (1) Septic shock: Plan: Present on admission. Resolved with IV fluids and addition of scheduled midodrine. IV fluids have been discontinued. Treat underlying infectious process. Supportive care. Metoprolol succinate has been switched to metoprolol tartrate. (2) Bacteremia: Plan: Enterococcus faecalis isolated in blood cultures drawn January 26. Repeat Jaime blood cultures drawn on January 28 are negative to date. He is now on daptomycin. Appreciate infectious disease consultation and recommendations. Facial CT scan reveals 3 periapical abscesses. Tooth #3 and #21 recommended to be extracted this admission. These could certainly be the cause of the enterococcal bacteremia. The infection could also possibly be from a skin infection. Cardiac echo does not show any obvious aortic bioprosthetic valve vegetations. (3) Abnormal CT of the abdomen: Plan: Renal US reveals a benign-appearing right renal cyst. This can be followed further as an outpatient (4) Fall: Plan: Supportive care. OT and PT evaluations. Mechanical fall (5) Chronic renal insufficiency, stage IV (severe): Plan: Monitor intake and output. Serial labs (6) Atrial fibrillation: Plan: Chronic atrial fibrillation. Heart rate is controlled. Metoprolol has been restarted and succinate form switched to tartrate form. Continue Xarelto. Telemetry (7) Hypokalemia: Plan: Potassium corrected to 4.1. Oral potassium decreased from 3 times daily dosing to twice daily dosing. Serial labs (8) Hip pain, right: Plan: No injury. X-ray reveals mild degenerative changes. Pain resolved with parenteral steroid therapy which has been discontinued today, January 30 (9) Acute on chronic diastolic CHF (congestive heart failure): Plan: Due to IV fluid resuscitation. Most recent echo reveals preserved ejection fraction. Parenteral Lasix ordered every 12 hours. Monitor intake and output. Serial chest x-ray (10) Acute respiratory failure with hypoxia: Plan: Oxygen per nasal cannula to maintain saturation greater than 90%. Wean off as tolerated. Treat underlying CHF Plan OT and PT assessments requested. He probably will need short-term placement at discharge Admission and Anticipated Discharge Date Admission Date: January 27, 2024 Subjective Alert and oriented. Mildly short of breath. He is requiring oxygen and chest x-ray reveals evidence of acute on chronic diastolic CHF. Parenteral Lasix has been ordered. OMFS entry noted. Teeth #3 and #21 need to be extracted this admission. Potassium down titrated from 3 times daily dosing to twice daily dosing. Potassium is up to 4.1 and will be monitored daily. Metoprolol dosage increased to 50 mg twice a day. Solu-Medrol has been discontinued. Review of Systems 2 Review of Systems: Constitutionalno fever or chills. Generalized weakness ENTno blurred vision, no double vision, no epistaxis, no sore throat Respiratoryno cough, no wheezing. Short of breath with minimal exertion Cardiacno palpitations, no chest pain, no syncope Daniela nausea, vomiting, diarrhea, melena, hematochezia GUno urinary retention, no urinary incontinence, no dysuria, no hematuria Musculoskeletalno joint pain, no muscle tenderness Skinpruritic scattered excoriations on the trunk Neurogeneralized weakness. No paresthesia Psychno depression, no anxiety Physical Exam 2 Physical Exam: General-alert and oriented x3, low-grade fever. Denies rigors HEENT-head atraumatic and normocephalic, pupils equal and reactive to light, extraocular muscles intact Neck-no lymphadenopathy or thyromegaly, trachea midline Chest-diminished breath sounds at the bases with bilateral inspiratory rales. No wheezing. No rhonchii Cardiac-irregular rhythm. Controlled rate. Normal S1 and S2 Abdomen-normal bowel sounds, no hepatosplenomegaly Skinscattered excoriated appearing lesions on the abdomen Extremities-no cyanosis, clubbing. Mild bilateral lower extremity edema Neuro-cranial nerves II through XII intact, motor and sensory function within normal limits, strength symmetrical with generalized weakness, no focal deficits Psych-normal affect, normal mood Results & Data Results & Data Vital Signs (Past 12 Hours) Vital Signs Temp Pulse Pulse Resp BP Pulse Ox O2 Del Method 01/31/24 13:33 93 H 01/31/24 10:27 36.3 C L 85 17 105/68 98 Nasal Cannula 01/31/24 09:37 121/79 01/31/24 08:30 36.0 C L 98 H 16 97/66 L 96 Nasal Cannula 01/31/24 08:24 Nasal Cannula 01/31/24 07:10 82 O2 Flow Rate 01/31/24 13:33 01/31/24 10:27 3 01/31/24 09:37 01/31/24 08:30 3 01/31/24 08:24 3 01/31/24 07:10 Laboratory Results 01/31/24 04:28 01/31/24 04:28 PG Care Time/CCT Total # of Minutes Spent Total Time Spent with Patient: Total time spent is greater than 50% in coordination of care (as documented) at patient's floor/unit and/or counseling patient: Coding Level of Care Code 10765 SUB INP/OBS CARE 3/50MIN Diagnoses Septic shock A41.9; R65.[address] of the abdomen R93.5 Fall W19.XXXA Encounter type: initial encounter Chronic renal insufficiency, stage IV (severe) N18.4 Atrial fibrillation I48.21 Atrial fibrillation type: permanent Hypokalemia E87.6 Hip pain, right M25.551 Acute on chronic diastolic CHF (congestive heart failure) I50.33 Acute respiratory failure with hypoxia J96.01 (4) Fall Encounter type: initial encounter Qualified Code(s): W19.XXXA - Unspecified fall, initial encounter (6) Atrial fibrillation Atrial fibrillation type: permanent Qualified Code(s): I48.21 - Permanent atrial fibrillation
--- NOTE | 2024-01-31 17:35 | Electrocardiogram Report ---
Test Reason : Blood Pressure : */* mmHG Vent. Rate : 111 BPM Atrial Rate : 131 BPM P-R Int : * ms QRS Dur : 86 ms QT Int : 374 ms P-R-T Axes : * 140 100 degrees QTcB Int : 508 ms Atrial fibrillation with rapid ventricular response Right axis deviation Abnormal ECG When compared with ECG of 27-Jan-2024 16:09, QRS axis Shifted right -consider limb lead reversal ST no longer depressed in Inferior leads ST less depressed in Anterior leads Nonspecific T wave abnormality has replaced inverted T waves in Inferior leads Confirmed by Brandy Rivera (Dony) on 01/31/2024 5:34:42 PM Referred By: REFERRED SELF Confirmed By: Brandy Rivera
[2024-01-31] MEDS: POTASSIUM CHLORIDE CRTAB 20 MEQ TABCR PO SCH (20:32)
[2024-02-01 05:16] LABS: Basophils # (auto) 0.01 K/uL (0.00-0.20); Basophils % (auto) 0.1 %; Hemoglobin 12.7 g/dl (14.0-18.0); Immature Granulocytes # (auto) 0.09 K/uL (0.01-0.20); Immature Granulocytes % (auto) 0.7 %; Lymphocytes # (auto) 0.88 K/uL (1.20-3.40); Lymphocytes % (auto) 7.3 %; Mean Corpuscular Volume 87.2 fL (80.0-100.0); Mean Platelet Volume 10.7 fL (9.4-12.4); Monocytes # (auto) 0.24 K/uL (0.11-0.59); Neutrophils # (auto) 10.81 K/uL (1.40-6.50); Neutrophils % (auto) 89.9 %; Platelet Count 166 K/uL (130-400); RDW Coefficient of Variation 18.6 % (11.5-14.5); RDW Standard Deviation 58.4 fL (36.4-46.3); White Blood Count 12.03 K/ul (4.8-10.8)
[2024-02-01 05:28] LABS: BUN Creatinine Ratio 26.1 (10-20); Calcium 9.6 mg/dl (8.6-10.3); Potassium 4.4 mmol/L (3.5-5.1)
--- NOTE | 2024-02-01 09:20 | Procedure Note ---
Procedure Note Date of Service February 01, 2024 I reviewed Mr Antoine`s dental condition it Dr Greco his dentist. Tooth # 3 is non restorable and should be removed Tooth # 4, 5 have necrotic pulps and will require root canals-He is not interested un perusing root canals and requested extractions. Tooth # 21 had a root can but this tooth is bothering Mr Antoine and he requested removal. Given this updated information from his dentist with the non restorable # 3 and necrotic pulps associated with # 4 and 5 . My treatment plan is as follows Extraction of teeth 3,4,5 and 21 in the OR with general anesthesia. I will plan for the procedure Jan or based on OR availability. Coding Additional Codes Date of Service ([facility].SURGERY)
--- NOTE | 2024-02-01 12:21 | Infectious Disease Progress Nt ---
Date of Service February 01, 2024 Assessment & Plan (1) Bacteremia: (2) Fever: Plan This is an 83-year-old man with a past medical history bilateral knee replacement, aortic valve replacement spinal surgery, DM2, CKD presents to the ED status post fall and unable to get up. Noted to be weak and febrile. Complained of feeling thirsty, weak with chills. States he fell because he slipped off his bed In the ED febrile, temp 39.6, pulse 105, respiratory rate 33, blood pressure 108/79-->83/46 , O2 sats 91% on 2 L. Labs WBC 9.16, BUN 47, creatinine 2.73, total bili 2.4, MRSA nasal screen positive. Respiratory viral panel negative, Biofire PCR positive for VRE. BC with 4/4 GPC. Urinalysis 0-5 WBC. Chest x-ray no consolidations. Head CT no acute findings. CT abdomen/pelvis groundglass opacities within the right lobe which could reflect atelectasis versus infectious process. No evidence of bowel obstruction post Juan-en-Y bypass. Possible proteinaceous cyst versus solid lesion on the right kidney. Renal ultrasound shows that this lesion is more consistent with a cyst. Several additional renal cysts noted. No hydronephrosis. He received Cefepime,Doxycycline and vancomycin. He has been started o Linezolid . ID consulted for GPC bacteremia. E Microbiology: Blood culture 01/26 4/4 bottles E feacalis ( pans) and 2/2 bottles VRE ( feacium) Urine culture 01/27/2024 NGTD MRSA nares + 01/26 Antibiotics: Cefepime 01/26 Vancomycin 01/27 Doxycycline 01/26 Linezolid daptomycin 01/28-ongoing #VRE bacteremia #Sepsis # Poor dentition with dental pain and gum ulcer # Multiple exvcoriated lesions on abdomen, ongoing for months per pt #S/p Aortic valve placement #BL TKA #S/P spinal surgery, no hardware per his report # CKD # Thrombocytopenia Discussion: VRE ( feacium ) AND E faecalis bacteremia, source unclear. He is status post aortic valve placement, bilateral TKA and spinal surgery. No spinal hardware per his report. BL knee does not appear acutely infected. No spinal tenderness. He has poor dentition with an ulcer in the R gum that he states has been " draining for a few week" and was pending dental eval and root canal. He has excoriated papules on upper abd that are pruritic- ongoing for months per his report , states it " drains crystal" CT face shows Dental caries with periapical lucencies about tooth #3, 22 and 25 concerning for periapical abscesses. Plan for tooth extractions He denies back, knee pain. No spinal TTP or knee effusion on exam . NO or GI symptoms. TTE without vegatations, but poor study Recommendations Continue Daptomycin 10 mg/kg IV per abw Q 48 hrs ( crcl < 30) CPK 41 If crcl > 30 , change to daily dosing Oral surgery following , pending dental extraction Would pursue DIOGO as TTE unrevealing in setting of high grade E faecalis bacteremia, poor dentition and AV If repeat BC + Follow up Repeat blood culture 01/28 ID will continue to follow Willie Marshall MD, MPH Infectious Disease [facility], [facility] Call [phone] with questions Admission and Anticipated Discharge Date Admission Date: January 27, 2024 Subjective Subsequent visit was provided via telemedicine using two-way real-time interactive telecommunication between the patient and the telemedicine provider. For the duration of the visit, the provider was performing the assessment from a different facility than the patient. This includesuse of bluetooth stethoscope forauscultationperformed by the telepresenter that the telemedicine provider can hear if described in the physical exam. [employer] contact information: Please call [facility] Center [phone]. (Phone Number For Physician Use Only) After establishing a telemedicine visit, patient was: Patient was verified with two unique identifiers Time Spent with Patient: Subsequent => [address] oral- max reviewed, c/f infection/? abcess Oral- max following Repeat BC NGTD TTE poor study but no vegatations BC from 01/26 with VRE ( faecium) in 2/4 bottles AND E faecalis ( panS) in 4/4 bottles WBC 12.03, cr 2.49 Physical Exam Physical Exam: Gen- Nad Heent- poor dentition. Lungs- NO increased wob Skin- multiple scattered excoriated dried lesions on epigastric area- tender, warm. Well heeled BL TKA incisions LE - BL 1 + edema . No knee effusion Neuro- AAOtimes 3 Psych- normal mood, cooperative Results & Data Vital Signs (Past 12 Hours) Vital Signs Temp Pulse Pulse Resp BP Pulse Ox O2 Del Method 02/01/24 10:32 36.2 C L 87 18 95/63 L 97 Nasal Cannula 02/01/24 07:56 Nasal Cannula 02/01/24 07:32 69 02/01/24 07:05 36.3 C L 81 18 110/51 L 98 CPAP 02/01/24 02:32 36.5 C 68 18 108/62 97 CPAP O2 Flow Rate 02/01/24 10:32 2 02/01/24 07:56 2 02/01/24 07:32 02/01/24 07:05 02/01/24 02:32 Laboratory Results Laboratory Results - last 48 hr 01/27/24 01/31/24 01/31/24 17:18 04:28 09:26 WBC 11.13 H RBC 4.37 L Hgb 11.7 L Hct 37.2 L MCV 85.1 MCH 26.8 MCHC 31.5 L RDW Std Deviation 56.7 H RDW Coeff of Sarah 18.3 H Plt Count 129 L MPV 11.5 Immature Gran % (Auto) 2.2 Neut % (Auto) 88.6 Lymph % (Auto) 6.9 [place] % (Auto) 2.2 Eos % (Auto) 0.0 Baso % (Auto) 0.1 Neut # (Auto) 9.86 H Lymph # (Auto) 0.77 L [place] # (Auto) 0.25 Eos # (Auto) 0.00 Baso # (Auto) 0.01 Immature Gran # (Auto) 0.24 H Sodium 139 Potassium 4.1 Chloride 106 Carbon Dioxide 24 Anion Gap 9 BUN 52 H Creatinine 2.18 H Est Cr Clr Drug Dosing 31.8 eGFR 29.68 BUN/Creatinine Ratio 23.9 H Glucose 147 H Calcium 9.2 B-Natriuretic Peptide 1156 H Babesia microti DNA PCR Not Detected 02/01/24 04:03 WBC 12.03 H RBC 4.70 Hgb 12.7 L Hct 41.0 L MCV 87.2 MCH 27.0 MCHC 31.0 L RDW Std Deviation 58.4 H RDW Coeff of Sarah 18.6 H Plt Count 166 MPV 10.7 Immature Gran % (Auto) 0.7 Neut % (Auto) 89.9 Lymph % (Auto) 7.3 [place] % (Auto) 2.0 Eos % (Auto) 0.0 Baso % (Auto) 0.1 Neut # (Auto) 10.81 H Lymph # (Auto) 0.88 L [place] # (Auto) 0.24 Eos # (Auto) 0.00 Baso # (Auto) 0.01 Immature Gran # (Auto) 0.09 Sodium 137 Potassium 4.4 Chloride 102 Carbon Dioxide 26 Anion Gap 9 BUN 65 H Creatinine 2.49 H D Est Cr Clr Drug Dosing 28.0 eGFR 25.30 BUN/Creatinine Ratio 26.1 H Glucose 152 H Calcium 9.6 B-Natriuretic Peptide Babesia microti DNA PCR Diagnostic Findings Microbiology 01/29/24 11:15 Blood Aerobic Blood Culture - Preliminary No growth in Aerobic bottle after 48 hours. 01/29/24 11:15 Blood Anaerobic Blood Culture - Final 01/29/24 11:15 Blood Aerobic Blood Culture - Preliminary No growth in Aerobic bottle after 48 hours. 01/29/24 11:15 Blood Anaerobic Blood Culture - Final 01/27/24 16:14 Blood Aerobic Blood Culture - Final Enterococcus faecalis Enterococcus faecium VRE 01/27/24 16:14 Blood Anaerobic Blood Culture - Final Enterococcus faecalis 01/27/24 17:36 Blood Aerobic Blood Culture - Final Enterococcus faecalis 01/27/24 17:36 Blood Anaerobic Blood Culture - Final Enterococcus faecalis Enterococcus faecium 01/27/24 16:25 Urine,Clean Catch Urine Culture - Final No growth - less than 1,000 colonies/mL. Hip X-Ray 01/29/24 13:01 XR hip RT min 2V CLINICAL HISTORY: Right hip pain. COMPARISON: Right hip radiographs August 23, 2014. CT of the abdomen and pelvis January 27, 2024. FINDINGS: Alignment of the right hip is anatomic. There is no acute fracture. There are no osseous lesions. Right hip joint space is preserved. There is no evidence for avascular necrosis of the right femoral head. There is minimal right hip osteophytosis. IMPRESSION: 1. No fractures within the right hip. 2. Minimal degenerative changes within the right hip. ACT 112: Negative or not required by law. Electronically signed by: Eddy Bashir M.D. 01/29/2024 2:[address] 01/29/24 15:41 Exam(s): CT FACIAL Without Contrast EXAM: CT Head and Maxillofacial Without Intravenous Contrast CLINICAL HISTORY: Reason for exam: dental pain with ongoing septic bacteremia. TECHNIQUE: Axial computed tomography images of the head/brain and face without intravenous contrast. CTDI is 36.26 mGy and DLP is 756.99 mGy-cm. Automated exposure control was utilized for the study. A dose lowering technique was utilized adhering to the principles of ALARA. COMPARISON: No relevant prior studies available. FINDINGS: Brain: Unremarkable. No hemorrhage. No significant white matter disease. No edema. Ventricles: Unremarkable. No ventriculomegaly. Bones/joints: No acute fracture. Dental caries with periapical lucencies about tooth #3, 22 and 25 concerning for periapical abscesses. Multiple root canals. Soft tissues: Unremarkable. Sinuses: Unremarkable as visualized. No acute sinusitis. Mastoid air cells: Unremarkable as visualized. No mastoid effusion. Orbits: Unremarkable as visualized. IMPRESSION: Dental caries with periapical lucencies about tooth #3, 22 and 25 concerning for periapical abscesses. Recommend dental consult. Electronically signed by: Gayle Valerio MD 01/30/24 00:21 AM Chest X-Ray 01/31/24 08:40 XR chest 1V portable HISTORY: 83 years-old Male hypoxia COMPARISON: 01/27/2024 TECHNIQUE: AP view of the chest FINDINGS: Cardiac silhouette is enlarged. Median sternotomy with cardiac valvular pr osthesis. Atherosclerosis of the aorta. No pneumothorax. Pulmonary vascular congestion with interstitial coarsening. Small pleural effusions with bibasilar consolidation. Bones appear grossly intact. IMPRESSION: 1. Cardiomegaly with interstitial pulmonary edema. 2. Layering pleural effusions with bibasilar consolidation favoring atelectasis. Pneumonia could appear similarly. ACT 112: Negative or not required by law. The above report was generated using voice recognition software. It may contain grammatical, syntax or spelling errors. Electronically signed by: Pedro Pablo Goode M.D. 01/31/2024 9:06 AM Medications Administered Home Medications Medication Instructions Recorded Confirmed Last Taken amoxicillin 500 mg tablet 2,000 mg PO DIRECTED PRN 1 HOUR 11/16/18 01/27/24 Unknown PRIOR TO DENTAL PROCEDURES docusate sodium 100 mg capsule 100 mg PO QAM PRN Constipation 05/03/20 01/27/24 Unknown cholecalciferol (vitamin D3) 50 50 mcg PO DAILY 07/10/22 01/27/24 2 Days Ago mcg (2,000 unit) capsule (Vitamin ~12/20/23 D3) magnesium 250 mg tablet 250 mg PO HS 07/10/22 01/27/24 2 Days Ago ~12/20/23 cyanocobalamin (vitamin B-12) 1,000 mcg IM Q90D #30 mL 09/23/22 01/27/24 2 Days Ago 1,000 mcg/mL injection solution ~12/20/23 metolazone 5 mg tablet 5 mg PO DAILY PRN weight gain #30 10/23/22 01/27/24 Unknown tabs rivaroxaban 15 mg tablet 15 mg PO HS #90 tabs 02/09/23 01/27/24 2 Days Ago ~12/20/23 Portable Oxygen #1 ea 05/25/23 01/27/24 Unknown calcitriol 0.25 mcg capsule 0.5 mcg (2 x 0.25 mcg) PO QAM #180 08/11/23 01/27/24 2 Days Ago caps ~12/20/23 potassium chloride 10 mEq 10 meq PO BID #180 caps 09/29/23 01/27/24 2 Days Ago capsule,extended release ~12/20/23 cyclobenzaprine 5 mg tablet 5 mg PO BID PRN muscle 11/20/23 01/27/24 12/06/23 pain/stiffness #60 tabs bumetanide 2 mg tablet 3 mg PO QAM 12/22/23 01/27/24 2 Days Ago ~12/20/23 mupirocin 2 % topical ointment 1 applic topical TID PRN irritation 12/22/23 01/27/24 Unknown tamoxifen 20 mg tablet 20 mg PO QAM 12/22/23 01/27/24 2 Days Ago ~12/20/23 metoprolol succinate 25 mg 75 mg (3 x 25 mg) PO QPM #90 tabs 12/28/23 01/27/24 Unknown tablet,extended release 24 hr metoprolol succinate 50 mg 50 mg PO QAM #30 tabs 12/28/23 01/27/24 Unknown tablet,extended release 24 hr tramadol 50 mg tablet 50 mg PO BID PRN Pain #60 tabs 01/14/24 01/27/24 Unknown allopurinol 100 mg tablet 100 mg PO QAM #90 tabs 01/22/24 01/27/24 Unknown Active Medications Generic Name Dose Route Start Last Admin Trade Name Freq PRN Reason Stop Dose Admin Acetaminophen 650 mg 01/28/24 12:20 01/31/24 20:33 Acetaminophen 325 Mg Tab PO 02/27/24 12:19 650 mg Q6H PRN Administration Fever Allopurinol 100 mg 01/28/24 09:00 02/01/24 08:27 Allopurinol 100 Mg Tab PO 02/27/24 08:59 100 mg QAM BEHZAD Administration Calcitriol 0.5 mcg 01/28/24 09:00 02/01/24 08:26 Calcitriol 0.25 Mcg Capsule PO 02/27/24 08:59 0.5 mcg QAM BEHZAD Administration Docusate Sodium 100 mg 01/28/24 21:06 01/28/24 21:37 Docusate Sodium 100 Mg Cap PO 02/28/24 08:59 100 mg DAILY PRN Administration constipation Furosemide 60 mg 01/31/24 09:30 02/01/24 09:38 Furosemide 40 Mg/4 Ml Vial IV 03/01/24 09:29 Not Given Q12H BEHZAD Daptomycin 825 mg/ Syringe 16.5 mls @ 8.25 mls/min 01/29/24 11:00 01/31/24 13:59 IV 02/12/24 10:59 8.25 mls/min Q48H BEHZAD Administration Protocol Magnesium Oxide 200 mg 01/27/24 22:00 01/31/24 20:38 Magnesium Oxide 400 Mg Tab PO 02/26/24 21:59 200 mg HS BEHZAD Administration Metoprolol Tartrate 50 mg 01/31/24 09:00 02/01/24 08:28 Metoprolol Tartrate 50 Mg Tab PO 03/01/24 08:59 50 mg BID BEHZAD Administration Midodrine 10 mg 01/28/24 08:00 02/01/24 11:12 Midodrine Hcl 10 Mg Tab PO 02/27/24 07:59 10 mg TID@0800,1200,1700 BEHZAD Administration Potassium Chloride 20 meq 01/31/24 21:00 02/01/24 08:27 Potassium Chloride Crtab 20 Meq Tabcr PO 03/01/24 20:59 20 meq BID BEHZAD Administration Rivaroxaban 15 mg 01/27/24 21:41 01/31/24 20:38 Rivaroxaban 15 Mg Tab PO 02/26/24 21:40 15 mg HS BEHZAD Administration (2) Fever Fever type: unspecified Qualified Code(s): R50.9 - Fever, unspecified
--- NOTE | 2024-02-01 17:41 | Hospitalist Progress Note ---
Date of Service February 01, 2024 Assessment & Plan (1) Septic shock: Plan: Present on admission. Resolved with IV fluids and addition of scheduled midodrine. IV fluids have been discontinued. Treat underlying infectious process. Supportive care. Metoprolol succinate has been switched to metoprolol tartrate. (2) Bacteremia: Plan: Enterococcus faecalis isolated in blood cultures drawn January 26. Repeat Jaime blood cultures drawn on January 28 are negative to date. He is now on daptomycin. Appreciate infectious disease consultation and recommendations. Facial CT scan reveals 3 periapical abscesses. Tooth #3 and #21 recommended to be extracted this admission. These could certainly be the cause of the enterococcal bacteremia. The infection could also possibly be from a skin in fection. Cardiac echo does not show any obvious aortic bioprosthetic valve vegetations. Oral maxillofacial surgery planning on OR on 02/02. (3) Abnormal CT of the abdomen: Plan: Renal US reveals a benign-appearing right renal cyst. This can be followed further as an outpatient (4) Fall: Plan: Supportive care. OT and PT evaluations. Mechanical fall (5) Chronic renal insufficiency, stage IV (severe): Plan: Monitor intake and output. Serial labs. Renal function stable despite diuresis. (6) Atrial fibrillation: Plan: Chronic atrial fibrillation. Heart rate is controlled. Metoprolol has been restarted and succinate form switched to tartrate form. Xarelto held for the OR 01/31 and 02/01. Telemetry (7) Hypokalemia: Plan: Potassium corrected to 4.1. Oral potassium decreased from 3 times daily dosing to twice daily dosing. Serial labs (8) Hip pain, right: Plan: No injury. X-ray reveals mild degenerative changes. Pain resolved with parenteral steroid therapy which has been discontinued today, January 30 (9) Acute on chronic diastolic CHF (congestive heart failure): Plan: Due to IV fluid resuscitation. Most recent echo reveals preserved ejection fraction. Parenteral Lasix ordered every 12 hours. Monitor intake and output. Serial chest x-ray (10) Acute respiratory failure with hypoxia: Plan: Oxygen per nasal cannula to maintain saturation greater than 90%. Wean off as tolerated. Treat underlying CHF Plan OT and PT assessments requested. He probably will need short-term placement at discharge Preop evaluation: Patient does not have a history of ischemic heart disease. He does have diastolic congestive heart failure (first predictor). No history of stroke. Nondiabetic. Has CKD with creatinine of greater than 2 (second predictor). Not undergoing high risk surgery. Risk of cardiac , nonfatal myocardial infarction and nonfatal cardiac arrest with 2 predictors is 6%. Admission and Anticipated Discharge Date Admission Date: January 27, 2024 Subjective Patient was seen and examined at 1:25 PM. He says that he does not feel short of breath at rest but he is getting winded today with movement. Review of Systems Review of Systems: All systems reviewed & are unremarkable except as noted in Subjective Physical Exam Physical Exam: General: Awake, conversant Heart: S1, S2/regular rate and rhythm, no murmur rubs or gallops Lungs: Clear to auscultation bilaterally. Normal effort Abdomen: Soft/nontender/nondistended. No hepatosplenomegaly Extremities: No clubbing/cyanosis. 1-2+ pitting bilateral edema Behavior: Appropriate, cooperative Results & Data Results & Data Vital Signs (Past 12 Hours) Vital Signs Temp Pulse Pulse Resp BP Pulse Ox O2 Del Method 02/01/24 15:11 36.3 C L 70 19 108/68 98 Room Air 02/01/24 14:13 74 02/01/24 10:32 36.2 C L 87 18 95/63 L 97 Nasal Cannula 02/01/24 07:56 Nasal Cannula 02/01/24 07:32 69 02/01/24 07:05 36.3 C L 81 18 110/51 L 98 CPAP O2 Flow Rate 02/01/24 15:11 02/01/24 14:13 02/01/24 10:32 2 02/01/24 07:56 2 02/01/24 07:32 02/01/24 07:05 Laboratory Results Abnormal lab results 02/01/24 Range/Units 04:03 WBC 12.03 H (4.8-10.8) K/ul Hgb 12.7 L (14.0-18.0) g/dl Hct 41.0 L (42.0-52.0) % MCHC 31.0 L (32.0-36.0) g/dL RDW Std Deviation 58.4 H (36.4-46.3) fL RDW Coeff of Sarah 18.6 H (11.5-14.5) % Neut # (Auto) 10.81 H (1.40-6.50) K/uL Lymph # (Auto) 0.88 L (1.20-3.40) K/uL BUN 65 H (6-23) mg/dl Creatinine 2.49 H D (0.6-1.4) mg/dl BUN/Creatinine Ratio 26.1 H (10-20) Glucose 152 H (70-99(Fasting)) mg/dl PG Care Time/CCT Total # of Minutes Spent Total Time Spent with Patient: Total time spent is greater than 50% in coordination of care (as documented) at patient's floor/unit and/or counseling patient: Coding Level of Care Code 75569 SUB INP/OBS CARE 2/35MIN Diagnoses Septic shock A41.9; R65.[address] of the abdomen R93.5 Fall W19.XXXA Encounter type: initial encounter Chronic renal insufficiency, stage IV (severe) N18.4 Atrial fibrillation I48.21 Atrial fibrillation type: permanent Hypokalemia E87.6 Hip pain, right M25.551 Acute on chronic diastolic CHF (congestive heart failure) I50.33 Acute respiratory failure with hypoxia J96.01 (4) Fall Encounter type: initial encounter Qualified Code(s): W19.XXXA - Unspecified fall, initial encounter (6) Atrial fibrillation Atrial fibrillation type: permanent Qualified Code(s): I48.21 - Permanent atrial fibrillation
[2024-02-02 06:21] LABS: Basophils # (auto) 0.02 K/uL (0.00-0.20); Basophils % (auto) 0.1 %; Hematocrit (blood only) 42.6 % (42.0-52.0); Hemoglobin 13.2 g/dl (14.0-18.0); Immature Granulocytes % (auto) 1.3 %; Lymphocytes # (auto) 1.28 K/uL (1.20-3.40); Lymphocytes % (auto) 8.3 %; Mean Corpuscular Hemoglobin 27.1 pg (25.0-34.0); Mean Corpuscular Volume 87.5 fL (80.0-100.0); Mean Platelet Volume 10.8 fL (9.4-12.4); Monocytes # (auto) 0.93 K/uL (0.11-0.59); Neutrophils # (auto) 13.06 K/uL (1.40-6.50); Neutrophils % (auto) 84.3 %; Nucleated RBC # (auto) 0.04 K/uL (0.00-0.12); Nucleated RBC % (auto) 0.3 %; Platelet Count 192 K/uL (130-400); RDW Coefficient of Variation 19.2 % (11.5-14.5); RDW Standard Deviation 58.9 fL (36.4-46.3); Red Blood Count 4.87 M/uL (4.70-6.10); White Blood Count 15.49 K/ul (4.8-10.8)
[2024-02-02 06:55] LABS: BUN Creatinine Ratio 22.4 (10-20); Calcium 9.8 mg/dl (8.6-10.3); Creatinine Clr Calc Pharmacy 20.8 ml/min; Potassium 4.8 mmol/L (3.5-5.1)
[2024-02-02] MEDS: SODIUM CHLORIDE 0.9% 500 ML IV ONE (10:30)
[2024-02-02] MEDS: SODIUM CHLORIDE 0.9% 1,000 ML IV SCH (11:12)
[2024-02-02 15:28] LABS: BUN Creatinine Ratio 22.7 (10-20); Calcium 9.8 mg/dl (8.6-10.3); Creatinine Clr Calc Pharmacy 20.8 ml/min; Potassium 4.8 mmol/L (3.5-5.1)
--- NOTE | 2024-02-02 15:39 | Hospitalist Progress Note ---
Date of Service February 02, 2024 Assessment & Plan (1) Septic shock: Plan: Present on admission. Resolved with IV fluids and addition of scheduled midodrine. IV fluids have been discontinued. Treat underlying infectious process. Supportive care. Metoprolol succinate has been switched to metoprolol tartrate. (2) Bacteremia: Plan: Enterococcus faecalis isolated in blood cultures drawn January 26. Repeat blood cultures drawn on January 28 are negative to date. He is now on daptomycin. Appreciate infectious disease consultation and recommendations. Facial CT scan reveals 3 periapical abscesses. Tooth #3 and #21 recommended to be extracted this admission. Oral maxillofacial surgery planning on OR on 02/02. These could certainly be the cause of the enterococcal bacteremia. The infection could also possibly be from a skin infection. TTE does not show any obvious aortic bioprosthetic valve vegetations. ID recommends DIOGO given ongoing active source (infected teeth) and bioprosthetic aortic valve. Contacted rolling mill plugger on-call who stated that Dr. Taco Izquierdo is on-call tomorrow and is his primary rolling mill plugger. Dr. Izquierdo will contact me tomorrow regarding DIOGO. (3) Abnormal CT of the abdomen: Plan: Renal US reveals a benign-appearing right renal cyst. This can be followed further as an outpatient (4) Fall: Plan: Supportive care. OT and PT evaluations. Mechanical fall (5) Chronic renal insufficiency, stage IV (severe): Plan: Today patient has acute kidney injury on CKD stage IV He has a solitary kidney status post left nephrectomy due to renal cell c arcinoma Most likely due to overdiuresis. Discontinued IV Lasix Was given 500 cc bolus followed by 1 L of normal saline Repeat BMP shows stable creatinine at 3.5 Consult nephrology (6) Atrial fibrillation: Plan: Chronic atrial fibrillation. Heart rate is controlled. Metoprolol has been restarted and succinate form switched to tartrate form. Xarelto held for the OR 01/31 and 02/01. Telemetry (7) Hypokalemia: Plan: Potassium corrected to 4.1. Oral potassium decreased from 3 times daily dosing to twice daily dosing. Serial labs (8) Hip pain, right: Plan: No injury. X-ray reveals mild degenerative changes. Pain resolved with parenteral steroid therapy which has been discontinued January 30 (9) Acute on chronic diastolic CHF (congestive heart failure): Plan: Due to IV fluid resuscitation. Most recent echo reveals preserved ejection fraction. Parenteral Lasix was ordered every 12 hours. Patient probably got slightly over diuresed with bumped creatinine due to dehydration. Hold off on further Lasix. (10) Acute respiratory failure with hypoxia: Plan: Most likely from acute on chronic diastolic congestive heart failure Improved Oxygen per nasal cannula to maintain saturation greater than 90%. Wean off as tolerated. Saturating 98% on 2 L. Plan OT and PT assessments requested. He probably will need short-term placement at discharge Preop evaluation: Patient does not have a history of ischemic heart disease. He does have diastolic congestive heart failure (first predictor). No history of stroke. Nondiabetic. Has CKD with creatinine of greater than 2 (second predictor). Not undergoing high risk surgery. Risk of cardiac , nonfatal myocardial infarction and nonfatal cardiac arrest with 2 predictors is 6%. Admission and Anticipated Discharge Date Admission Date: January 27, 2024 Subjective Patient was seen and examined at 10 AM. He complained of feeling weak, thirsty, dehydrated. He stated that he had just had breakfast and his tongue is a little moist now after breakfast. Before that, his tongue felt very dry. Review of Systems Review of Systems: All systems reviewed & are unremarkable except as noted in Subjective Physical Exam Physical Exam: General: Awake, conversant Heart: S1, S2/regular rate and rhythm, no murmur rubs or gallops Lungs: Clear to auscultation bilaterally. Normal effort Abdomen: Soft/nontender/nondistended. No hepatosplenomegaly Extremities: No clubbing/cyanosis. 1+ pitting bilateral edema. Stockings on. Behavior: Appropriate, cooperative Results & Data Results & Data Vital Signs (Past 12 Hours) Vital Signs Temp Pulse Pulse Resp BP BP Pulse Ox 02/02/24 14:00 74 02/02/24 12:10 36.9 C 110 H 18 101/71 98 02/02/24 08:14 98 H 02/02/24 08:00 02/02/24 08:00 02/02/24 07:17 36.6 C 76 18 99/69 L 99 02/02/24 04:05 36.6 C 87 20 95/69 L 97 O2 Del Method O2 Flow Rate 02/02/24 14:00 02/02/24 12:10 Nasal Cannula 2 02/02/24 08:14 02/02/24 08:00 Nasal Cannula 2 02/02/24 08:00 Nasal Cannula 2 02/02/24 07:17 Room Air, Nasal Cannula 2 02/02/24 04:05 CPAP PG Care Time/CCT Total # of Minutes Spent Total Time Spent with Patient: Total time spent is greater than 50% in coordination of care (as documented) at patient's floor/unit and/or counseling patient: Coding Level of Care Code 89753 SUB INP/OBS CARE 2/35MIN Diagnoses Septic shock A41.9; R65.[address] of the abdomen R93.5 Fall W19.XXXA Encounter type: initial encounter Chronic renal insufficiency, stage IV (severe) N18.4 Atrial fibrillation I48.21 Atrial fibrillation type: permanent Hypokalemia E87.6 Hip pain, right M25.551 Acute on chronic diastolic CHF (congestive heart failure) I50.33 Acute respiratory failure with hypoxia J96.01 (4) Fall Encounter type: initial encounter Qualified Code(s): W19.XXXA - Unspecified fall, initial encounter (6) Atrial fibrillation Atrial fibrillation type: permanent Qualified Code(s): I48.21 - Permanent atrial fibrillation
--- NOTE | 2024-02-03 08:26 | Anesthesiology Consultation ---
Date of Service February 03, 2024 Assessment & Plan Chart Review Chart Review: Acceptable Risk for Surgery and Patient NOT seen in Pre Admission Testing History Surgery Operation Date: 02/03/24 10:45 Proposed Procedures p Extraction #3, 4, 5, 21 - Naveed Whitney DMD s Incision and Drainage Right Oral Cavity - Naveed Whitney DMD Height/Weight Height: 5 ft 7 in Weight: 114.5 kg Allergies Allergy/AdvReac Type Severity Reaction Status Date / Time iron [From Venofer] AdvReac Mild Vomiting Verified 01/05/24 12:26 Iodinated Contrast Media AdvReac Unknown PT ONLY Verified 01/05/24 12:26 [Iodinated Contrast- Oral HAS 1 and IV Dye] KIDNEY, CONTRAINDICATED. Medications Home Medications Medication Instructions Recorded Confirmed Last Taken amoxicillin 500 mg tablet 2,000 mg PO DIRECTED PRN 1 HOUR 11/16/18 01/27/24 Unknown PRIOR TO DENTAL PROCEDURES docusate sodium 100 mg capsule 100 mg PO QAM PRN Constipation 05/03/20 01/27/24 Unknown cholecalciferol (vitamin D3) 50 50 mcg PO DAILY 07/10/22 01/27/24 2 Days Ago mcg (2,000 unit) capsule (Vitamin ~12/20/23 D3) magnesium 250 mg tablet 250 mg PO HS 07/10/22 01/27/24 2 Days Ago ~12/20/23 cyanocobalamin (vitamin B-12) 1,000 mcg IM Q90D #30 mL 09/23/22 01/27/24 2 Days Ago 1,000 mcg/mL injection solution ~12/20/23 metolazone 5 mg tablet 5 mg PO DAILY PRN weight gain #30 10/23/22 01/27/24 Unknown tabs rivaroxaban 15 mg tablet 15 mg PO HS #90 tabs 02/09/23 01/27/24 2 Days Ago ~12/20/23 Portable Oxygen #1 ea 05/25/23 01/27/24 Unknown calcitriol 0.25 mcg capsule 0.5 mcg (2 x 0.25 mcg) PO QAM #180 08/11/23 01/27/24 2 Days Ago caps ~12/20/23 potassium chloride 10 mEq 10 meq PO BID #180 caps 09/29/23 01/27/24 2 Days Ago capsule,extended release ~12/20/23 cyclobenzaprine 5 mg tablet 5 mg PO BID PRN muscle 11/20/23 01/27/24 12/06/23 pain/stiffness #60 tabs bumetanide 2 mg tablet 3 mg PO QAM 12/22/23 01/27/24 2 Days Ago ~12/20/23 mupirocin 2 % topical ointment 1 applic topical TID PRN irritation 12/22/23 01/27/24 Unknown tamoxifen 20 mg tablet 20 mg PO QAM 12/22/23 01/27/24 2 Days Ago ~12/20/23 metoprolol succinate 25 mg 75 mg (3 x 25 mg) PO QPM #90 tabs 12/28/23 01/27/24 Unknown tablet,extended release 24 hr metoprolol succinate 50 mg 50 mg PO QAM #30 tabs 12/28/23 01/27/24 Unknown tablet,extended release 24 hr tramadol 50 mg tablet 50 mg PO BID PRN Pain #60 tabs 01/14/24 01/27/24 Unknown allopurinol 100 mg tablet 100 mg PO QAM #90 tabs 01/22/24 01/27/24 Unknown Active Medications Generic Name Dose Route Start Last Admin Trade Name Freq PRN Reason Stop Dose Admin Acetaminophen 650 mg 01/28/24 12:20 02/02/24 04:55 Acetaminophen 325 Mg Tab PO 02/27/24 12:19 650 mg Q6H PRN Administration Fever Allopurinol 100 mg 01/28/24 09:00 02/02/24 08:48 Allopurinol 100 Mg Tab PO 02/27/24 08:59 100 mg QAM BEHZAD Administration Calcitriol 0.5 mcg 01/28/24 09:00 02/02/24 08:48 Calcitriol 0.25 Mcg Capsule PO 02/27/24 08:59 0.5 mcg QAM BEHZAD Administration Docusate Sodium 100 mg 01/28/24 21:06 01/28/24 21:37 Docusate Sodium 100 Mg Cap PO 02/28/24 08:59 100 mg DAILY PRN Administration constipation Daptomycin 825 mg/ Syringe 16.5 mls @ 8.25 mls/min 01/29/24 11:00 02/02/24 14:36 IV 02/12/24 10:59 8.25 mls/min Q48H BEHZAD Administration Protocol Sodium Chloride 1,000 mls @ 100 mls/hr 02/02/24 10:15 02/03/24 06:35 Nss IV 02/03/24 10:14 100 mls/hr .Q10H BEHZAD Administration Magnesium Oxide 200 mg 01/27/24 22:00 02/02/24 20:34 Magnesium Oxide 400 Mg Tab PO 02/26/24 21:59 200 mg HS BEHZAD Administration Metoprolol Tartrate 50 mg 01/31/24 09:00 02/02/24 20:33 Metoprolol Tartrate 50 Mg Tab PO 03/01/24 08:59 Not Given BID BEHZAD Midodrine 10 mg 01/28/24 08:00 02/02/24 17:05 Midodrine Hcl 10 Mg Tab PO 02/27/24 07:59 10 mg TID@0800,1200,1700 BEHZAD Administration Potassium Chloride 20 meq 01/31/24 21:00 02/02/24 20:39 Potassium Chloride Crtab 20 Meq Tabcr PO 03/01/24 20:59 20 meq BID BEHZAD Administration Rivaroxaban 15 mg 01/27/24 21:41 01/31/24 20:38 Rivaroxaban 15 Mg Tab PO 02/26/24 21:40 15 mg HS BEHZAD Administration Past Medical History Medical History Diabetes mellitus Aspiration into respiratory tract Acute kidney injury superimposed on CKD Morbid obesity History of anxiety Hx of gout Hx of rotator cuff tear Difficulty with raising arms without extreme pain, currently in PT Hx of osteoarthritis Hx of impacted cerumen History of COVID-19 01/2021 > "mild" cold symptoms, resolved Prediabetes Kidney stones Hx x7 Renal cell adenocarcinoma s/p nephrectomy Chronic kidney disease, stage III (moderate) CKD (chronic kidney disease), stage III Past Family History Family History Mother Breast cancer Lung disease Grandmother (Maternal) Breast cancer Aunt Breast cancer Sister Breast cancer Father Myocardial infarction Arthritis Denies family history of Ovarian cancer Prostate cancer Colorectal cancer Past Surgical History Surgical History H/O aortic valve replacement Hx of cardiac catheterization 11/2020 > no stents History of total bilateral knee replacement History of esophagogastroduodenoscopy (EGD) Hx of colonoscopy Hx of tonsillectomy Hx of cystoscopy w/stone basketing History of left nephrectomy History of spinal surgery Aortic valve replaced bioprosthesis, 2006 History of gastric bypass History of cholecystectomy Social History Smoking Status: Never smoker Do You Dip or Chew Tobacco: No Hx Alcohol Use: No alcohol intake frequency: holidays/special occasions only Hx Substance Use: No substance use type: does not use Physical Exam Vital Signs Last Vital Signs Temp 36.8 C 02/03/24 03:47 Pulse 115 H 02/03/24 03:47 Resp 18 02/03/24 03:47 BP 100/67 02/03/24 03:47 Pulse Ox 98 02/03/24 03:47 O2 Del Method CPAP 02/03/24 03:47 O2 Flow Rate 2 02/02/24 20:00 Testing Laboratory Results 02/02/24 05:31 02/02/24 14:59 PT 15.7 Seconds (9.0-12.0) H 01/27/24 16:14 INR 1.5 (0.9-1.1) H 01/27/24 16:14 APTT 32 Seconds (21-31) H 01/27/24 16:14 Urine Color Yellow 01/27/24 16:25 Urine Appearance Clear (Clear) 01/27/24 16:25 Urine pH 6.0 (4.5-7.5) 01/27/24 16:25 Ur Specific [place] 1.012 (1.000-1.030) 01/27/24 16:25 Urine Protein 1+ (Negative) H 01/27/24 16:25 Urine Glucose (UA) Negative (Negative) 01/27/24 16:25 Urine Ketones Negative (Negative) 01/27/24 16:25 Urine Nitrite Negative (Negative) 01/27/24 16:25 Ur Leukocyte Esterase Negative (Negative) 01/27/24 16:25 Urine WBC (Auto) 0-5 /hpf (0-5) 01/27/24 16:25 Urine RBC (Auto) >20 /hpf (0-2) H 01/27/24 16:25 U Hyaline Cast (Auto) 0-2 /lpf (0-2) 01/27/24 16:25 U Epithel Cells (Auto) 0-2 /hpf (0-2) 01/27/24 16:25 Urine Bacteria (Auto) None Seen (None Seen) 01/27/24 16:25 01/29/24 11:15 Aerobic Blood Culture - Preliminary Blood No growth in Aerobic bottle after 48 hours. Anaerobic Blood Culture - Final 01/29/24 11:15 Aerobic Blood Culture - Preliminary Blood No growth in Aerobic bottle after 48 hours. Anaerobic Blood Culture - Final 01/27/24 16:14 Aerobic Blood Culture - Final Blood Enterococcus faecalis Enterococcus faecium VRE Anaerobic Blood Culture - Final Enterococcus faecalis 01/27/24 17:36 Aerobic Blood Culture - Final Blood Enterococcus faecalis Anaerobic Blood Culture - Final Enterococcus faecalis Enterococcus faecium 01/27/24 16:25 Urine Culture - Final Urine,Clean Catch No growth - less than 1,000 colonies/mL.
[2024-02-03 10:13] LABS: Albumin Level 3.3 gm/dl (3.4-5.0); Calcium 9.4 mg/dl (8.6-10.3); Creatinine Clr Calc Pharmacy 24.2 ml/min; Potassium 4.8 mmol/L (3.5-5.1)
--- NOTE | 2024-02-03 10:42 | Nephrology Consultation ---
Date of Consultation February 03, 2024 Assessment & Plan (1) DEONNA (acute kidney injury): (2) Chronic renal insufficiency: (3) CHF (congestive heart failure): (4) Iron deficiency anemia: (5) Bacteremia: (6) Hypotension: Plan 83-year-old gentleman with stage IV CKD with solitary right kidney, left nephrectomy and congestive heart failure with diastolic dysfunction and preserved EF, admitted to the hospital with sepsis and bacteremia with GPC possibly peridental abscess. Kidney function was stable at baseline on admission however developed DEONNA after diuretic for apparent volume overload from initially fluid resuscitation for sepsis.urinalysis and renal imaging was oth erwise unremarkable. Has been on IV fluid starting yesterday and diuretics has been on hold for last 2 days, creatinine peaked to 3.4 which improved to 2.7 this morning with IV fluid. Clinically seems volume status acceptable without any significant volume overload. Blood pressure has been low but slightly improved. --Okay to continue on IV fluid as he has been n.p.o. and will be going for juaquin gical intervention today. Once he is able to start taking orally, okay to discontinue IV fluid but continue to keep off of diuretics for now. Continue strict intake and output measurement if become significantly positive, diuretics can be resumed at a lower dose.. -- Continue calcitriol -- Dose medications for eGFR less than 15 Thank you for allowing me to participate in your patient's care. It was a pleasure to see Mr. Velasquez History of Present Illness Reason for Consultation: DEONNA, advanced CKD. Attending Physician: Denia Norwood MD History of Present Illness Mr. Kyler Antoine is an 83 year-old male with PMH significant for stage 4 CKD, solitary right kidney s/p L nephrectomy for RCC, HFpEF, pulmonary hypertension, A fib admitted to the hospital with sepsis. Nephrology consult requested for management of DEONNA, advanced CKD. EMR records were reviewed in detail during patient's visit. Ed presented to ER on 01/27/24 after a fall at home associated with generalized weakness and hypotension and diagnosed with sepsis. In ER he was febrile with temperature of 39.6, pulse 105, tachycardia, tachypnea and hypotension with lowest blood pressure 83/46. Labs showed WBC 9.16, BUN 47, creatinine 2.73, close to baseline. CT head with no acute finding. CT abdomen pelvis showed cyst in right kidney but otherwise unremarkable, left nephrectomy. Urinalysis showed no evidence of UTI. Chest x-ray without any pulmonary infiltrate. Blood culture grew gram-positive cocci. CT face showed peridental abscesses and he is schedule for tooth extraction later today. Has been on Daptomycin. With hypotension and sepsis he received IV fluid resuscitation and eventually was thought to be volume overloaded and started on IV Lasix 3 days ago. Over last 2 days his kidney function started to worsen after IV Lasix and creatinine increased to 3.5, electrolyte was acceptable. Blood pressure again started to run low and clinically he looks volume depleted and started on IV fluid yesterday. Stage 4 CKD, b/l cr around 3.0 mg/dl g solitary right kidney s/p left nephrectomy, cardiorenal syndrome. H/o kidney stones, HFpEF, pulmonary hypertension, atrial fibrillation with failed cardioversion before, on Xarelto a nd metoprolol, h/o of aortic stenosis s/p Bovine aortic valve replacement in 2006. 2D echo in August showed EF 65%, moderate concentric LVH. As an outpatient he has been on Bumex 3 mg daily and metolazone as needed for cardiorenal syndrome, his estimated dry weight has been around 107 kg and he has been following with heart failure clinic. s/p gastric bypass 2012, FIFI on BIPAP QHS, gout, breast mass, was on Tamoxifen, dyslipidemia, and chronic venous insufficiency. He denied any shortness of breath this morning. Has been n.p.o. for dental procedure this afternoon. Reports difficulty with sleep because of reported interruption. Blood pressure slightly improved. Lab this morning showed kidney function slightly improved. Allergies Allergy/AdvReac Type Severity Reaction Status Date / Time iron [From Venofer] AdvReac Mild Vomiting Verified 01/05/24 12:26 Iodinated Contrast Media AdvReac Unknown PT ONLY Verified 01/05/24 12:26 [Iodinated Contrast- Oral HAS 1 and IV Dye] KIDNEY, CONTRAINDICATED. Home Medications Medication Instructions Recorded Confirmed Type amoxicillin 500 mg tablet 2,000 mg PO DIRECTED PRN 1 HOUR 11/16/18 01/27/24 History PRIOR TO DENTAL PROCEDURES docusate sodium 100 mg capsule 100 mg PO QAM PRN Constipation 05/03/20 01/27/24 History cholecalciferol (vitamin D3) 50 50 mcg PO DAILY 07/10/22 01/27/24 History mcg (2,000 unit) capsule (Vitamin D3) magnesium 250 mg tablet 250 mg PO HS 07/10/22 01/27/24 History cyanocobalamin (vitamin B-12) 1,000 mcg IM Q90D #30 mL 09/23/22 01/27/24 Rx 1,000 mcg/mL injection solution metolazone 5 mg tablet 5 mg PO DAILY PRN weight gain #30 10/23/22 01/27/24 Rx tabs rivaroxaban 15 mg tablet 15 mg PO HS #90 tabs 02/09/23 01/27/24 Rx Portable Oxygen #1 ea 05/25/23 01/27/24 Rx calcitriol 0.25 mcg capsule 0.5 mcg (2 x 0.25 mcg) PO QAM #180 08/11/23 01/27/24 Rx caps potassium chloride 10 mEq 10 meq PO BID #180 caps 09/29/23 01/27/24 Rx capsule,extended release cyclobenzaprine 5 mg tablet 5 mg PO BID PRN muscle 11/20/23 01/27/24 Rx pain/stiffness #60 tabs bumetanide 2 mg tablet 3 mg PO QAM 12/22/23 01/27/24 History mupirocin 2 % topical ointment 1 applic topical TID PRN irritation 12/22/23 01/27/24 History tamoxifen 20 mg tablet 20 mg PO QAM 12/22/23 01/27/24 History metoprolol succinate 25 mg 75 mg (3 x 25 mg) PO QPM #90 tabs 12/28/23 01/27/24 Rx tablet,extended release 24 hr metoprolol succinate 50 mg 50 mg PO QAM #30 tabs 12/28/23 01/27/24 Rx tablet,extended release 24 hr tramadol 50 mg tablet 50 mg PO BID PRN Pain #60 tabs 01/14/24 01/27/24 Rx allopurinol 100 mg tablet 100 mg PO QAM #90 tabs 01/22/24 01/27/24 Rx Patient History Medical History Diabetes mellitus Aspiration into respiratory tract Acute kidney injury superimposed on CKD Morbid obesity History of anxiety Hx of gout Hx of rotator cuff tear Difficulty with raising arms without extreme pain, currently in PT Hx of osteoarthritis Hx of impacted cerumen History of COVID-19 01/2021 > "mild" cold symptoms, resolved Prediabetes Kidney stones Hx x7 Renal cell adenocarcinoma s/p nephrectomy Chronic kidney disease, stage III (moderate) CKD (chronic kidney disease), stage III Surgical History H/O aortic valve replacement Hx of cardiac catheterization 11/2020 > no stents History of total bilateral knee replacement History of esophagogastroduodenoscopy (EGD) Hx of colonoscopy Hx of tonsillectomy Hx of cystoscopy w/stone basketing History of left nephrectomy History of spinal surgery Aortic valve replaced bioprosthesis, 2006 History of gastric bypass History of cholecystectomy Family History Mother Breast cancer Lung disease Grandmother (Maternal) Breast cancer Aunt Breast cancer Sister Breast cancer Father Myocardial infarction Arthritis Denies family history of Ovarian cancer Prostate cancer Colorectal cancer Social History Smoking Status: Never smoker Second Hand Exposure: No; Do You Dip or Chew Tobacco: No; Hx Alcohol Use: No Hx Substance Use: No Preferred Language: Romansh Communication Ability: Effective Visual Impairment: No Limitations Hearing Ability: Normal 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 Beliefs That Will Affect Care: None marital status: Current Living Situation: Spouse and Family Current Living Situation Comment: Lives w/ , son lives in basement current occupational status: retired 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[employer] Other Information That Helps Us Care for You: No Feels Safe at Home: Yes Safety Concerns: Feels Safe At This Time Childhood Exposure to Second-Hand Smoke: Yes Diet: regular caffeine: Yes Dental Care, Regularly: Yes Physical Activity Frequency: Does not Exercise Physical Activity Frequency Comment: Physical activity limited due to medical conditions Seatbelt Use: always Sunscreen Use: No Do you think of yourself as: straight/heterosexual Gender Identity: Male Assistive Devices: Cane, Oxygen - Continuous and Walker Review of Systems Review of Systems: All systems reviewed & are unremarkable except as noted in Subjective Physical Exam Constitutional: WD/WN, vitals as above no acute distress Eyes: + anicteric sclerae Neck: normal visual inspection Respiratory: no respiratory distress Auscultation: lungs clear to auscultation bilaterally Cardiovascular: Rate/Rhythm: regular rate and + irregularly irregular Heart Sounds: normal S1 and normal S2 Extremities: no edema Gastrointestinal (Abdomen): Inspection/Auscultation: abdomen normal to inspection Percussion/Palpation: abdomen soft; abdomen nontender Musculoskeletal: Extremities: extremities normal to inspection Neurologic: no focal motor deficits Psychiatric: Orientation: alert and oriented x 3 Affect: euthymic affect Results & Data Vital Signs (Past 12 Hours) Vital Signs Temp Pulse Resp BP BP Pulse Ox O2 Del Method 02/03/24 08:31 36.6 C 94 H 20 119/83 94 Nasal Cannula 02/03/24 03:47 36.8 C 115 H 18 100/67 98 CPAP 02/03/24 01:05 36.5 C 104 H 18 126/85 98 CPAP O2 Flow Rate 02/03/24 08:31 4 02/03/24 03:47 02/03/24 01:05 PG Care Time/CCT Total # of Minutes Spent Total Time Spent with Patient: Total time spent is greater than 50% in coordination of care (as documented) at patient's floor/unit and/or counseling patient: Coding Level of Care Code 06181 INT INP/OBS CARE 375MIN Diagnoses DEONNA (acute kidney injury) N17.9 Chronic renal insufficiency N18.9 CHF (congestive heart failure) I50.9 Iron deficiency anemia D50.9 Bacteremia R78.81 Hypotension I95.9 Hypotension type: unspecified hypotension type (6) Hypotension Hypotension type: unspecified hypotension type Qualified Code(s): I95.9 - Hypotension, unspecified
[2024-02-03] MEDS: LORazepam 0.5 MG TAB PO STA (10:52)
[2024-02-03] MEDS: SODIUM CHLORIDE 0.9% 500 ML IV SCH (12:06)
[2024-02-03] MEDS ORDERED: ATROPINE SULFATE 0.1 MG/ML 10ML SYR IV PRN (12:21)
[2024-02-03] MEDS ORDERED: HYDROmorphone INJ 1 MG/ML SYRINGE IV PRN (12:21)
[2024-02-03] MEDS ORDERED: ePHEDrine sulfate 50 MG/ML AMP IV PRN (12:21)
[2024-02-03] MEDS ORDERED: fentaNYL citrate PF 100 MCG/2 ML VIAL IV PRN (12:21)
[2024-02-03] MEDS ORDERED: ONDANSETRON INJ 2 MG/ML 2 ML VIAL IV PRN (12:21)
--- NOTE | 2024-02-03 12:27 | History & Physical Bridge Note ---
Date of Service February 03, 2024 History & Physical Bridge Note I have examined the patient, reviewed the History & Physical and in the interval since the performance of the History & Physical I have noted the following changes of clinical significance: no changes noted OK FOR THE PROCEDURE --HE WAS CLEARED BY HOSPITALIST AND NEPHROLOGY.
[2024-02-03] MEDS ORDERED: LIDOCAINE 2% 2 ML VIAL/AMP(20MG/ML) INFIL ONE (12:39)
[2024-02-03] MEDS ORDERED: fentaNYL citrate PF 100 MCG/2 ML VIAL ONE (12:39)
[2024-02-03] MEDS ORDERED: DEXAMETHASONE SOD INJ 4 MG/ML VIAL ONE (12:39)
[2024-02-03] MEDS ORDERED: PROPOFOL IV EMULSION 10 MG/ML 20 ML VIAL IV ONE (12:39)
[2024-02-03] MEDS ORDERED: ONDANSETRON INJ 2 MG/ML 2 ML VIAL ONE (12:39)
[2024-02-03] MEDS: CHLORHEXIDINE GLUCONATE 0.12% 480 ML MT ONE (13:10)
[2024-02-03] MEDS: SURGICEL ABSORB HEMOSTAT 2IN X 14IN TOP ONE (13:12)
[2024-02-03] MEDS ORDERED: SUCCINYLCHOLINE CHLORIDE 20 MG/ML 10 ML VIAL IV ONE (13:23)
[2024-02-03] MEDS: BUPIVACAINE/EPINEPHRINE 0.5% 1:200,000 1.8 ML CARP ONE (13:24)
[2024-02-03] MEDS ORDERED: PHENYLEPHRINE 100MCG/ML 5ML SYR ONE (13:24)
--- NOTE | 2024-02-03 13:32 | Post Operative Brief Note ---
PG Immediate Post Op with CF Date of Surgery February 03, 2024 Pre & Post Diagnosis Operation Date: 02/04/24 07:00 <No data on this case meets the specified criteria> I identified the patient and participated in the time-out.: Yes Procedure Operation Date: 02/04/24 07:00 <No data on this case meets the specified criteria> Surgeon Naveed Whitney, DMD Bottle Tester NONE Estimated Blood Loss 2 Findings Consistent with Post-Op Diagnosis INFECTED AND ABSCESSED NECROTIC TEETH I&DSUBPERIOSTEAL AND PALATAL ABSCESSED UPPER RIGHT Specimens Specimen Description: none per surgeon Complications NONE Disposition Accompanied Patient To Recovery: Yes
[2024-02-03] MEDS: LABETALOL HCL IV 5 MG/ML 20ML IV ONE (14:36)
--- NOTE | 2024-02-03 14:36 | Anesthesiology Progress Note ---
Date of Service February 03, 2024 Anesthesia Post Procedure Vital Signs Vital Signs: Temp Pulse Pulse Pulse Resp BP BP 02/03/24 14:31 118 H 19 119/91 02/03/24 14:20 120 H 23 120/81 02/03/24 14:10 128 H 20 106/86 02/03/24 14:00 121 H 22 111/87 02/03/24 13:50 121 H 19 116/89 02/03/24 13:40 36.9 C 115 H 20 125/89 02/03/24 11:55 36.5 C 89 18 111/81 02/03/24 08:31 36.6 C 94 H 20 119/83 02/03/24 03:47 36.8 C 115 H 18 100/67 02/03/24 01:05 36.5 C 104 H 18 126/85 02/02/24 20:14 36.5 C 111 H 18 99/66 L 02/02/24 20:00 02/02/24 16:03 36.3 C L 93 H 18 94/63 L Pulse Ox O2 Del Method O2 Flow Rate 02/03/24 14:31 96 Nasal Cannula 2 02/03/24 14:20 95 Nasal Cannula 2 02/03/24 14:10 98 Oxymask 5 02/03/24 14:00 97 Oxymask 10 02/03/24 13:50 94 Oxymask 10 02/03/24 13:40 91 Oxymask 5 02/03/24 11:55 94 Nasal Cannula 2 02/03/24 08:31 94 Nasal Cannula 4 02/03/24 03:47 98 CPAP 02/03/24 01:05 98 CPAP 02/02/24 20:14 98 Room Air 02/02/24 20:00 Nasal Cannula 2 02/02/24 16:03 98 Nasal Cannula 3 Pain Intensity Right Hip: Pain Intensity: 3 Transfer of Care Handoff Completed per policy Notes Mental Status: alert / awake / arousable Patient Amnestic to Procedure: Yes Nausea / Vomiting: adequately controlled Pain: adequately controlled Airway Patency, RR, SpO2: stable & adequate BP & HR: stable & adequate Hydration State: stable & adequate Anesthetic Complications: no major complications apparent and Pt Satisfied with anesthetic care Notes: A fib tachy, treated with Labetalol, will d/c to floor - stable
[2024-02-03] MEDS: LABETALOL HCL IV 5 MG/ML 20ML IV STA (14:37)
--- NOTE | 2024-02-03 15:37 | Hospitalist Progress Note ---
Date of Service February 03, 2024 Assessment & Plan (1) Septic shock: Plan: Present on admission. Resolved with IV fluids and addition of scheduled midodrine. IV fluids have been discontinued. Treat underlying infectious process. Supportive care. Metoprolol succinate has been switched to metoprolol tartrate. (2) Bacteremia: Plan: Enterococcus faecalis isolated in blood cultures drawn January 26. Repeat blood cultures drawn on January 28 are negative to date. He is now on daptomycin. Appreciate infectious disease consultation and recommendations. Facial CT scan reveals 3 periapical abscesses. Patient should have had extraction of infected teeth today 02/03. These could certainly be the cause of the enterococcal bacteremia. The infection could also possibly be from a skin infection. TTE does not show any obvious aortic bioprosthetic valve vegetations. ID recommends DIOGO given ongoing active source (infected teeth) and bioprosthetic aortic valve. Contacted Dr. Izquierdo regarding DIOGO. I see that the patient is on the schedule for DIOGO 02/03. In the meantime, continue IV antibiotics per ID recommendations. (3) Abnormal CT of the abdomen: Plan: Renal US reveals a benign-appearing right renal cyst. This can be followed further as an outpatient (4) Fall: Plan: Supportive care. OT and PT evaluations. Mechanical fall (5) Chronic renal insufficiency, stage IV (severe): Plan: Today patient has acute kidney injury on CKD stage IV He has a solitary kidney status post left nephrectomy due to renal cell carcinoma Most likely due to overdiuresis. Discontinued IV Lasix Due to concern of a slight bump in creatinine, patient was given IV fluids prior to surgery Follow Up Clerk on board Creatinine stable today at 2.8 (6) Atrial fibrillation: Plan: Chronic atrial fibrillation. Heart rate is controlled. Metoprolol has been restarted and succinate form switched to tartrate form. Continue to hold Xar elto until OMFS clears (7) Hypokalemia: Plan: Potassium corrected. Oral potassium decreased from 3 times daily dosing to twice daily dosing. Serial labs (8) Hip pain, right: Plan: No injury. X-ray reveals mild degenerative changes. Pain resolved with parenteral steroid therapy which has been discontinued January 30 (9) Acute on chronic diastolic CHF (congestive heart failure): Plan: Due to IV fluid resuscitation. Most recent echo reveals preserved ejection fraction. Parenteral Lasix was ordered every 12 hours. Patient probably got slightly over diuresed with bumped creatinine due to dehydration. Hold off on further Lasix. Currently being hydrated prior to surgery. Once he starts eating, IV fluids can be discontinued. (10) Acute respiratory failure with hypoxia: Plan: Most likely from acute on chronic diastolic congestive heart failure Improved Oxygen per nasal cannula to maintain saturation greater than 90%. Wean off as tolerated. Saturating 98% on 2 L. Plan OT and PT assessments requested. He probably will need short-term placement at discharge Preop evaluation: Patient does not have a history of ischemic heart disease. He does have diastolic congestive heart failure (first predictor). No history of stroke. Nondiabetic. Has CKD with creatinine of greater than 2 (second predictor). Not undergoing high risk surgery. Risk of cardiac , nonfatal myocardial infarction and nonfatal cardiac arrest with 2 predictors is 6%. Admission and Anticipated Discharge Date Admission Date: January 27, 2024 Subjective Patient was seen and examined at 10:20 AM. At that time he was quite anxious about his surgery. He was also complaining of hiccups although he did not have any during my encounter. He did not complain of shortness of breath even though he was on IV fluids. Review of Systems Review of Systems: All systems reviewed & are unremarkable except as noted in Subjective Physical Exam Physical Exam: General: Awake, conversant Heart: S1, S2/regular rate and rhythm, no murmur rubs or gallops Lungs: Clear to auscultation bilaterally. Normal effort Abdomen: Soft/nontender/nondistended. No hepatosplenomegaly Extremities: No clubbing/cyanosis. 1+ pitting bilateral edema. Stockings on. Behavior: Appropriate, cooperative Results & Data Results & Data Vital Signs (Past 12 Hours) Vital Signs Temp Pulse Pulse Pulse Pulse Resp BP 02/03/24 15:00 111 H 24 02/03/24 14:50 36.8 C 104 H 20 02/03/24 14:40 106 H 24 02/03/24 14:37 123 H 113/93 02/03/24 14:36 123 H 113/93 02/03/24 14:30 118 H 19 02/03/24 14:20 120 H 23 02/03/24 14:10 128 H 20 02/03/24 14:00 121 H 22 02/03/24 13:50 121 H 19 02/03/24 13:40 36.9 C 115 H 20 02/03/24 11:55 36.5 C 89 18 02/03/24 08:31 36.6 C 94 H 20 02/03/24 03:47 36.8 C 115 H 18 BP BP Pulse Ox O2 Del Method O2 Flow Rate 02/03/24 15:00 106/69 95 Nasal Cannula 2 02/03/24 14:50 104/79 95 Nasal Cannula 2 02/03/24 14:40 98/59 L 93 Nasal Cannula 2 02/03/24 14:37 02/03/24 14:36 02/03/24 14:30 119/91 96 Nasal Cannula 2 02/03/24 14:20 120/81 95 Nasal Cannula 2 02/03/24 14:10 106/86 98 Oxymask 5 02/03/24 14:00 111/87 97 Oxymask 10 02/03/24 13:50 116/89 94 Oxymask 10 02/03/24 13:40 125/89 91 Oxymask 5 02/03/24 11:55 111/81 94 Nasal Cannula 2 02/03/24 08:31 119/83 94 Nasal Cannula 4 02/03/24 03:47 100/67 98 CPAP Laboratory Results Abnormal lab results 02/03/24 Range/Units 09:26 BUN 75 H (6-23) mg/dl Creatinine 2.89 H D (0.6-1.4) mg/dl BUN/Creatinine Ratio 26.0 H (10-20) Glucose 113 H (70-99(Fasting)) mg/dl Albumin 3.3 L (3.4-5.0) gm/dl PG Care Time/CCT Total # of Minutes Spent Total Time Spent with Patient: Total time spent is greater than 50% in coordination of care (as documented) at patient's floor/unit and/or counseling patient: Coding Level of Care Code 84320 SUB INP/OBS CARE 2/35MIN Diagnoses Septic shock A41.9; R65.[address] of the abdomen R93.5 Fall W19.XXXA Encounter type: initial encounter Chronic renal insufficiency, stage IV (severe) N18.4 Atrial fibrillation I48.21 Atrial fibrillation type: permanent Hypokalemia E87.6 Hip pain, right M25.551 Acute on chronic diastolic CHF (congestive heart failure) I50.33 Acute respiratory failure with hypoxia J96.01 (4) Fall Encounter type: initial encounter Qualified Code(s): W19.XXXA - Unspecified fall, initial encounter (6) Atrial fibrillation Atrial fibrillation type: permanent Qualified Code(s): I48.21 - Permanent atrial fibrillation
--- NOTE | 2024-02-03 15:41 | Infectious Disease Progress Nt ---
Date of Service February 03, 2024 Assessment & Plan (1) Bacteremia: (2) Fever: Plan This is an 83-year-old man with a past medical history bilateral knee replacement, aortic valve replacement spinal surgery, DM2, CKD presents to the ED status post fall and unable to get up. Noted to be weak and febrile. Complained of feeling thirsty, weak with chills. States he fell because he slipped off his bed In the ED febrile, temp 39.6, pulse 105, respiratory rate 33, blood pressure 108/79-->83/46 , O2 sats 91% on 2 L. Labs WBC 9.16, BUN 47, creatinine 2.73, total bili 2.4, MRSA nasal screen positive. Respiratory viral panel negative, Biofire PCR positive for VRE. BC with 4/4 GPC. Urinalysis 0-5 WBC. Chest x-ray no consolidations. Head CT no acute findings. CT abdomen/pelvis groundglass opacities within the right lobe which could reflect atelectasis versus infectious process. No evidence of bowel obstruction post Juan-en-Y bypass. Possible proteinaceous cyst versus solid lesion on the right kidney. Renal ultrasound shows that this lesion is more consistent with a cyst. Several additional renal cysts noted. No hydronephrosis. He received Cefepime,Doxycycline and vancomycin. He has been started o Linezolid . ID consulted for GPC bacteremia. E Microbiology: Blood culture 01/26 4/4 bottles E faecalis ( pans) and 2/2 bottles VRE ( faecium) Urine culture 01/27/2024 NGTD MRSA nares + 01/26 Blood culture 01/28 NG Antibiotics: Cefepime 01/26 Vancomycin 01/27 Doxycycline 01/26 Linezolid daptomycin 01/28-ongoing #VRE AND E feacalis bacteremia #Sepsis # Poor dentition with dental pain and gum ulcer # Multiple excoriated lesions on abdomen, ongoing for months per pt #S/p Aortic valve placement #BL TKA #S/P spinal surgery, no hardware per his report # CKD # Thrombocytopenia, resolved Discussion: VRE ( feacium ) AND E faecalis bacteremia, source unclear. He is status post aortic valve placement, bilateral TKA and spinal surgery. No spinal hardware per his report. BL knee does not appear acutely infected. No spinal tenderness. He has poor dentition with an ulcer in the R gum that he states has been " draining for a few week" and was pending dental eval and root canal. He has excoriated papules on upper abd that are pruritic- ongoing for months per his report , states it " drains crystal" CT face shows Dental caries with periapical lucencies about tooth #3, 22 and 25 concerning for periapical abscesses. Plan for tooth extractions He denies back, knee pain. No spinal TTP or knee effusion on exam . NO or GI symptoms. TTE without vegatations, but poor study 02/02 sp extractions pending DIOGO Recommendations Continue Daptomycin 10 mg/kg IV per abw Q 48 hrs ( crcl < 30) CPK 41 If crcl > 30 , change to daily dosing FU DIOGO as TTE unrevealing in setting of high grade E faecalis bacteremia, poor dentition and AV ID will continue to follow Willie Marshall MD, MPH Infectious Disease [facility], ID Division Call [phone] with questions Admission and Anticipated Discharge Date Admission Date: January 27, 2024 Subjective This patient recommendation is based on a telemedicine consult request which was completed asynchronously through chart review and information provided by the primary physician. The patient was not seen or examined today. The evaluation is consultative in nature and all patient care and treatment decisions can either be accepted or rejected by the patient's primary hospital-based treating physician using their own independent medical judgment for their patient. Time Spent Reviewing Chart: 11 - 20 minutes SP OR for removal of teeth pending DIOGO tomorrow No telpresenter available today Results & Data Vital Signs (Past 12 Hours) Vital Signs Temp Pulse Pulse Pulse Pulse Resp BP 02/03/24 15:00 111 H 24 02/03/24 14:50 36.8 C 104 H 20 02/03/24 14:40 106 H 24 02/03/24 14:37 123 H 113/93 02/03/24 14:36 123 H 113/93 02/03/24 14:30 118 H 19 02/03/24 14:20 120 H 23 02/03/24 14:10 128 H 20 02/03/24 14:00 121 H 22 02/03/24 13:50 121 H 19 02/03/24 13:40 36.9 C 115 H 20 02/03/24 11:55 36.5 C 89 18 02/03/24 08:31 36.6 C 94 H 20 02/03/24 03:47 36.8 C 115 H 18 BP BP Pulse Ox O2 Del Method O2 Flow Rate 02/03/24 15:00 106/69 95 Nasal Cannula 2 02/03/24 14:50 104/79 95 Nasal Cannula 2 02/03/24 14:40 98/59 L 93 Nasal Cannula 2 02/03/24 14:37 02/03/24 14:36 02/03/24 14:30 119/91 96 Nasal Cannula 2 02/03/24 14:20 120/81 95 Nasal Cannula 2 02/03/24 14:10 106/86 98 Oxymask 5 02/03/24 14:00 111/87 97 Oxymask 10 02/03/24 13:50 116/89 94 Oxymask 10 02/03/24 13:40 125/89 91 Oxymask 5 02/03/24 11:55 111/81 94 Nasal Cannula 2 02/03/24 08:31 119/83 94 Nasal Cannula 4 02/03/24 03:47 100/67 98 CPAP Laboratory Results Laboratory Results - last 48 hr 01/27/24 02/02/24 02/02/24 17:18 05:31 14:59 WBC 15.49 H RBC 4.87 Hgb 13.2 L Hct 42.6 MCV 87.5 MCH 27.1 MCHC 31.0 L RDW Std Deviation 58.9 H RDW Coeff of Sarah 19.2 H Plt Count 192 MPV 10.8 Immature Gran % (Auto) 1.3 Neut % (Auto) 84.3 Lymph % (Auto) 8.3 Story % (Auto) 6.0 Eos % (Auto) 0.0 Baso % (Auto) 0.1 Neut # (Auto) 13.06 H Lymph # (Auto) 1.28 Story # (Auto) 0.93 H Eos # (Auto) 0.00 Baso # (Auto) 0.02 Immature Gran # (Auto) 0.20 Absolute Nucleated RBC 0.04 Nucleated RBC % (auto) 0.3 Sodium 138 139 Potassium 4.8 4.8 Chloride 101 102 Carbon Dioxide 30 29 Anion Gap 7 8 BUN 75 H 76 H Creatinine 3.35 H D 3.35 H Est Cr Clr Drug Dosing 20.8 20.8 eGFR 17.72 17.72 BUN/Creatinine Ratio 22.4 H 22.7 H Glucose 137 H 113 H POC Glucose Calcium 9.8 9.8 Phosphorus Albumin A. phagocytophilum DNA Negative 02/03/24 02/03/24 09:26 11:44 WBC RBC Hgb Hct MCV MCH MCHC RDW Std Deviation RDW Coeff of Sarah Plt Count MPV Immature Gran % (Auto) Neut % (Auto) Lymph % (Auto) Story % (Auto) Eos % (Auto) Baso % (Auto) Neut # (Auto) Lymph # (Auto) Story # (Auto) Eos # (Auto) Baso # (Auto) Immature Gran # (Auto) Absolute Nucleated RBC Nucleated RBC % (auto) Sodium 141 Potassium 4.8 Chloride 106 Carbon Dioxide 27 Anion Gap 8 BUN 75 H Creatinine 2.89 H D Est Cr Clr Drug Dosing 24.2 eGFR 21.16 BUN/Creatinine Ratio 26.0 H Glucose 113 H POC Glucose 96 Calcium 9.4 Phosphorus 3.0 Albumin 3.3 L A. phagocytophilum DNA Diagnostic Findings Microbiology 01/29/24 11:15 Blood Aerobic Blood Culture - Final No growth in Aerobic bottle after 5 days. 01/29/24 11:15 Blood Anaerobic Blood Culture - Final 01/29/24 11:15 Blood Aerobic Blood Culture - Final No growth in Aerobic bottle after 5 days. 01/29/24 11:15 Blood Anaerobic Blood Culture - Final 01/27/24 16:14 Blood Aerobic Blood Culture - Final Enterococcus faecalis Enterococcus faecium VRE 01/27/24 16:14 Blood Anaerobic Blood Culture - Final Enterococcus faecalis 01/27/24 17:36 Blood Aerobic Blood Culture - Final Enterococcus faecalis 01/27/24 17:36 Blood Anaerobic Blood Culture - Final Enterococcus faecalis Enterococcus faecium 01/27/24 16:25 Urine,Clean Catch Urine Culture - Final No growth - less than 1,000 colonies/mL. Medications Administered Home Medications Medication Instructions Recorded Confirmed Last Taken amoxicillin 500 mg tablet 2,000 mg PO DIRECTED PRN 1 HOUR 11/16/18 01/27/24 Unknown PRIOR TO DENTAL PROCEDURES docusate sodium 100 mg capsule 100 mg PO QAM PRN Constipation 05/03/20 01/27/24 Unknown cholecalciferol (vitamin D3) 50 50 mcg PO DAILY 07/10/22 01/27/24 2 Days Ago mcg (2,000 unit) capsule (Vitamin ~12/20/23 D3) magnesium 250 mg tablet 250 mg PO HS 07/10/22 01/27/24 2 Days Ago ~12/20/23 cyanocobalamin (vitamin B-12) 1,000 mcg IM Q90D #30 mL 09/23/22 01/27/24 2 Days Ago 1,000 mcg/mL injection solution ~12/20/23 metolazone 5 mg tablet 5 mg PO DAILY PRN weight gain #30 10/23/22 01/27/24 Unknown tabs rivaroxaban 15 mg tablet 15 mg PO HS #90 tabs 02/09/23 01/27/24 2 Days Ago ~12/20/23 Portable Oxygen #1 ea 05/25/23 01/27/24 Unknown calcitriol 0.25 mcg capsule 0.5 mcg (2 x 0.25 mcg) PO QAM #180 08/11/23 01/27/24 2 Days Ago caps ~12/20/23 potassium chloride 10 mEq 10 meq PO BID #180 caps 09/29/23 01/27/24 2 Days Ago capsule,extended release ~12/20/23 cyclobenzaprine 5 mg tablet 5 mg PO BID PRN muscle 11/20/23 01/27/24 12/06/23 pain/stiffness #60 tabs bumetanide 2 mg tablet 3 mg PO QAM 12/22/23 01/27/24 2 Days Ago ~12/20/23 mupirocin 2 % topical ointment 1 applic topical TID PRN irritation 12/22/23 01/27/24 Unknown tamoxifen 20 mg tablet 20 mg PO QAM 12/22/23 01/27/24 2 Days Ago ~12/20/23 metoprolol succinate 25 mg 75 mg (3 x 25 mg) PO QPM #90 tabs 12/28/23 01/27/24 Unknown tablet,extended release 24 hr metoprolol succinate 50 mg 50 mg PO QAM #30 tabs 12/28/23 01/27/24 Unknown tablet,extended release 24 hr tramadol 50 mg tablet 50 mg PO BID PRN Pain #60 tabs 01/14/24 01/27/24 Unknown allopurinol 100 mg tablet 100 mg PO QAM #90 tabs 01/22/24 01/27/24 Unknown Active Medications Generic Name Dose Route Start Last Admin Trade Name Freq PRN Reason Stop Dose Admin Acetaminophen 650 mg 01/28/24 12:20 02/02/24 04:55 Acetaminophen 325 Mg Tab PO 02/27/24 12:19 650 mg Q6H PRN Administration Fever Allopurinol 100 mg 01/28/24 09:00 02/03/24 08:52 Allopurinol 100 Mg Tab PO 02/27/24 08:59 100 mg QAM BEHZAD Administration Calcitriol 0.5 mcg 01/28/24 09:00 02/03/24 08:52 Calcitriol 0.25 Mcg Capsule PO 02/27/24 08:59 0.5 mcg QAM BEHZAD Administration Docusate Sodium 100 mg 01/28/24 21:06 01/28/24 21:37 Docusate Sodium 100 Mg Cap PO 02/28/24 08:59 100 mg DAILY PRN Administration constipation Daptomycin 825 mg/ Syringe 16.5 mls @ 8.25 mls/min 01/29/24 11:00 02/02/24 14:36 IV 02/12/24 10:59 8.25 mls/min Q48H BEHZAD Administration Protocol Magnesium Oxide 200 mg 01/27/24 22:00 02/02/24 20:34 Magnesium Oxide 400 Mg Tab PO 02/26/24 21:59 200 mg HS BEHZAD Administration Metoprolol Tartrate 50 mg 01/31/24 09:00 02/03/24 08:52 Metoprolol Tartrate 50 Mg Tab PO 03/01/24 08:59 50 mg BID BEHZAD Administration Midodrine 10 mg 01/28/24 08:00 02/03/24 08:52 Midodrine Hcl 10 Mg Tab PO 02/27/24 07:59 10 mg TID@0800,1200,1700 BEHZAD Administration Potassium Chloride 20 meq 01/31/24 21:00 02/03/24 08:57 Potassium Chloride Crtab 20 Meq Tabcr PO 03/01/24 20:59 20 meq BID BEHZAD Administration Rivaroxaban 15 mg 01/27/24 21:41 01/31/24 20:38 Rivaroxaban 15 Mg Tab PO 02/26/24 21:40 15 mg HS BEHZAD Administration (2) Fever Fever type: unspecified Qualified Code(s): R50.9 - Fever, unspecified
[2024-02-03] MEDS ORDERED: HYDROmorphone INJ 0.5 MG/0.5 ML SYR IM PRN (16:41)
[2024-02-03] MEDS: HYDROmorphone INJ 0.5 MG/0.5 ML SYR IV STA (17:03)
[2024-02-03] MEDS: HYDROCODONE/ACETAMOPHEN 5/325MG TAB PO PRN (19:40)
[2024-02-04 07:17] LABS: Hemoglobin 12.4 g/dl (14.0-18.0); Mean Corpuscular Hemoglobin 27.3 pg (25.0-34.0); Mean Corpuscular Hgb Conc 31.8 g/dL (32.0-36.0); Mean Corpuscular Volume 85.7 fL (80.0-100.0); Nucleated RBC # (auto) 0.18 K/uL (0.00-0.12); Nucleated RBC % (auto) 1.9 %; Platelet Count 168 K/uL (130-400); RDW Coefficient of Variation 19.5 % (11.5-14.5); RDW Standard Deviation 57.9 fL (36.4-46.3); Red Blood Count 4.55 M/uL (4.70-6.10); White Blood Count 9.68 K/ul (4.8-10.8)
[2024-02-04 07:32] LABS: Albumin Level 3.3 gm/dl (3.4-5.0); BUN Creatinine Ratio 27.7 (10-20); Calcium 9.5 mg/dl (8.6-10.3); Creatinine Clr Calc Pharmacy 25.9 ml/min; Phosphorus 3.4 mg/dl (2.5-4.9); Potassium 5.6 mmol/L (3.5-5.1)
--- NOTE | 2024-02-04 08:03 | Oral/Maxillofacial Progress Nt ---
Date of Service February 04, 2024 Assessment & Plan Admission and Anticipated Discharge Date Admission Date: January 27, 2024 Subjective Post Op infection evaluation at 24 hours The infected area is resolving very well---upper right palatal area Swelling is much less and the tissue is starting to return back to normal in size and texture. No further drainage is noted. Infection has responded very well to the antibiotics, extractions and the I and D. I requested that the patient stay off the Xarelto until the DIOGO tomorrow morning At this time the area is well healed and responded well to treatment, no further treatment needed. OK for DIOGO and discharge to Rehab as per medicine Ed has my contact information if needed for follow up I would suggest oral antibiotic once D/C for 5 more days Results & Data Vital Signs (Past 12 Hours) Vital Signs Temp Pulse Pulse Pulse Resp BP Pulse Ox 02/04/24 07:00 90 02/04/24 02:32 36.4 C L 106 H 18 121/76 94 02/03/24 22:16 36.2 C L 101 H 18 104/65 92 02/03/24 21:50 112 H 02/03/24 21:00 O2 Del Method O2 Flow Rate 02/04/24 07:00 02/04/24 02:32 CPAP 02/03/24 22:16 Room Air 02/03/24 21:50 02/03/24 21:00 Nasal Cannula 2.5 PG Care Time/CCT Total # of Minutes Spent Total Time Spent with Patient: Total time spent is greater than 50% in coordination of care (as documented) at patient's floor/unit and/or counseling patient: Coding Level of Care Code None
--- NOTE | 2024-02-04 10:18 | Nephrology Progress Note ---
Date of Service February 04, 2024 Assessment & Plan (1) DEONNA (acute kidney injury): (2) Chronic renal insufficiency: (3) CHF (congestive heart failure): (4) Iron deficiency anemia: (5) Bacteremia: (6) Hypotension: Plan 83-year-old gentleman with stage IV CKD with solitary right kidney, left nephrectomy and congestive heart failure with diastolic dysfunction and preserved EF, admitted to the hospital with sepsis and bacteremia with GPC possibly peridental abscess. Kidney function was stable at baseline on admission however developed DEONNA after diuretic for apparent volume overload from initially fluid resuscitation for sepsis.urinalysis and renal imaging was otherwise unremarkable. Kidney function staying relatively stable, creatinine improved and staying close to baseline, electrolyte acceptable. Off of IV fluid. Blood pressure fair, urine output somewhat low but volume status otherwise acceptable although noted to have slight increase in weight today. Potassium was 5.6, was on potassium supplement. Discontinued this morning. --Change diet to low potassium diet, repeat serum potassium this afternoon. --continue to keep off of diuretics for now, strict intake and output measurement if become significantly positive, diuretics can be resumed at a l ower dose.. -- Continue calcitriol -- Dose medications for eGFR less than 15 Continue Admission and Anticipated Discharge Date Admission Date: January 27, 2024 Subjective Ed was seen and evaluated this morning. Overall he reports feeling better, pain from tooth extraction yesterday is not that bad and mostly resolved and he is able to tolerate eating regular food. Urine output relatively low, off of IV fluid. Blood pressure low but stable. Kidney function stable. Potassium was elevated at 5.6 this morning, he was on potassium supplement started while he was on high-dose of diuretics, discontinued this morning. Review of Systems Review of Systems: ROS was otherwise unremarkable. Physical Exam Constitutional: WD/WN, vitals as above no acute distress Eyes: + anicteric sclerae Neck: normal visual inspection Respiratory: no respiratory distress Auscultation: lungs clear to auscultation bilaterally Cardiovascular: Rate/Rhythm: regular rate, regular rhythm and + irregularly irregular Heart Sounds: normal S1 and normal S2 Extremities: no edema Musculoskeletal: Extremities: extremities normal to inspection Neurologic: no focal motor deficits Psychiatric: Orientation: alert and oriented x 3 Affect: euthymic affect Results & Data Vital Signs (Past 12 Hours) Vital Signs Temp Pulse Pulse Pulse Resp BP Pulse Ox 02/04/24 08:10 36.3 C L 105 H 20 105/73 98 02/04/24 07:00 90 02/04/24 02:32 36.4 C L 106 H 18 121/76 94 02/03/24 22:16 36.2 C L 101 H 18 104/65 92 O2 Del Method O2 Flow Rate 02/04/24 08:10 Nasal Cannula 2 02/04/24 07:00 02/04/24 02:32 CPAP 02/03/24 22:16 Room Air PG Care Time/CCT Total # of Minutes Spent Total Time Spent with Patient: Total time spent is greater than 50% in coordination of care (as documented) at patient's floor/unit and/or counseling patient: Coding Level of Care Code 78181 SUB INP/OBS CARE 235MIN Diagnoses DEONAN (acute kidney injury) N17.9 Chronic renal insufficiency N18.9 CHF (congestive heart failure) I50.9 Iron deficiency anemia D50.9 Bacteremia R78.81 Hypotension I95.9 Hypotension type: unspecified hypotension type (6) Hypotension Hypotension type: unspecified hypotension type Qualified Code(s): I95.9 - Hypotension, unspecified
--- NOTE | 2024-02-04 11:29 | Infectious Disease Progress Nt ---
Date of Service February 04, 2024 Assessment & Plan (1) Bacteremia: (2) Fever: Plan This is an 83-year-old man with a past medical history bilateral knee replacement, aortic valve replacement spinal surgery, DM2, CKD presents to the ED status post fall and unable to get up. Noted to be weak and febrile. Complained of feeling thirsty, weak with chills. States he fell because he slipped off his bed In the ED febrile, temp 39.6, pulse 105, respiratory rate 33, blood pressure 108/79-->83/46 , O2 sats 91% on 2 L. Labs WBC 9.16, BUN 47, creatinine 2.73, total bili 2.4, MRSA nasal screen positive. Respiratory viral panel negative, Biofire PCR positive for VRE. BC with 4/4 GPC. Urinalysis 0-5 WBC. Chest x-ray no consolidations. Head CT no acute findings. CT abdomen/pelvis groundglass opacities within the right lobe which could reflect atelectasis versus infectious process. No evidence of bowel obstruction post Juan-en-Y bypass. Possible proteinaceous cyst versus solid lesion on the right kidney. Renal ultrasound shows that this lesion is more consistent with a cyst. Several additional renal cysts noted. No hydronephrosis. He received Cefepime,Doxycycline and vancomycin. He has been started o Linezolid . ID consulted for GPC bacteremia. E Microbiology: Blood culture 01/26 4/4 bottles E faecalis ( pans) and 2/2 bottles VRE ( E faecium) Urine culture 01/27/2024 NGTD MRSA nares + 01/26 Blood culture 01/28 NG Antibiotics: Cefepime 01/26 Vancomycin 01/27 Doxycycline 01/26 Linezolid daptomycin 01/28-ongoing CT face Brain: Unremarkable. No hemorrhage. No significant white matter disease. No edema. Ventricles: Unremarkable. No ventriculomegaly. Bones/joints: No acute fracture. Dental caries with periapical lucencies about tooth #3, 22 and 25 concerning for periapical abscesses. Multiple root canals. Soft tissues: Unremarkable. Sinuses: Unremarkable as visualized. No acute sinusitis. Mastoid air cells: Unremarkable as visualized. No mastoid effusion. Orbits: Unremarkable as visualized. IMPRESSION: Dental caries with periapical lucencies about tooth #3, 22 and 25 concerning for periapical abscesses. Recommend dental consult. #VRE AND E faecalis bacteremia, likley from dental source #Sepsis, resolved # Poor dentition with dental pain and ? periapical abscess # Multiple excoriated lesions on abdomen, ongoing for months per pt #S/p Aortic valve placement #BL TKA #S/P spinal surgery, no hardware per his report # CKD # Thrombocytopenia, resolved Discussion: VRE ( feacium ) AND E faecalis bacteremia, source unclear, but possibly from dental source. . Usual part of [facility]. He is status post aortic valve placement, bilateral TKA and spinal surgery. No spinal hardware per his report. BL knee does not appear acutely infected. No spinal tenderness. He has poor dentition with an ?ulcer in the R gum on initial exam that he states has b een " draining for a few week" and was pending dental eval and root canal. He has excoriated papules on upper abd that are pruritic- ongoing for months per his report , states it " drains crystal" CT face shows Dental caries with periapical lucencies about tooth #3, 22 and 25 concerning for periapical abscesses. He denies back, knee pain. No spinal TTP or knee effusion on exam . NO or GI symptoms. TTE without vegatations, but poor study OMFS following 02/02 underwent dental extractions #3,#4, #5 and # 21. 02/02 doing well pending DIOGO tomorrow. Repeat BC NGtD Recommendations Continue Daptomycin 10 mg/kg IV per abw Q 48 hrs ( crcl < 30) CPK 41 If crcl > 30 , change to daily dosing FU DIOGO as TTE unrevealing in setting of high grade E faecalis bacteremia, poor dentition and AV Anticipate 4-6 weeks IV abx. If DIOGO c/w endocarditis, then 6 weeks. ID will continue to follow Willie Marshall MD, MPH Infectious Disease [facility] Call [phone] with questions Admission and Anticipated Discharge Date Admission Date: January 27, 2024 Subjective Subsequent visit was provided via telemedicine using two-way real-time interactive telecommunication between the patient and the telemedicine provider. For the duration of the visit, the provider was performing the assessment from a different facility than the patient. This includesuse of bluetooth stethoscope forauscultationperformed by the telepresenter that the tele medicine provider can hear if described in the physical exam. [employer] [employer] contact information: Please call [facility] Call Center [phone]. (Phone Number For Physician Use Only) After establishing a telemedicine visit, patient was: Patient was verified with two unique identifiers Time Spent with Patient: Subsequent => 35 min He has less dental discomfort sp extractions Afebrile pending DIOGO tomorrow Physical Exam Physical Exam: Gen- Nad Heent- poor dentition. Sp extractions, sockets dry Lungs- NO increased wob, on 2l NC Skin- multiple scattered excoriated dried lesions on epigastric area- Not tender or warm today. Well heeled BL TKA incisions LE - BL 1 + edema . No knee effusion Neuro- AAO times 3 Psych- normal mood, cooperative Results & Data Vital Signs (Past 12 Hours) Vital Signs Temp Pulse Pulse Pulse Resp BP Pulse Ox 02/04/24 11:14 35.9 C L 84 97/65 L 97 02/04/24 08:10 36.3 C L 105 H 20 105/73 98 02/04/24 07:00 90 02/04/24 02:32 36.4 C L 106 H 18 121/76 94 O2 Del Method O2 Flow Rate 02/04/24 11:14 Nasal Cannula 3 02/04/24 08:10 Nasal Cannula 2 02/04/24 07:00 02/04/24 02:32 CPAP Laboratory Results Laboratory Results - last 48 hr 01/27/24 02/02/24 02/03/24 17:18 14:59 09:26 WBC RBC Hgb Hct MCV MCH MCHC RDW Std Deviation RDW Coeff of Sarah Plt Count MPV Absolute Nucleated RBC Nucleated RBC % (auto) Sodium 139 141 Potassium 4.8 4.8 Chloride 102 106 Carbon Dioxide 29 27 Anion Gap 8 8 BUN 76 H 75 H Creatinine 3.35 H 2.89 H D Est Cr Clr Drug Dosing 20.8 24.2 eGFR 17.72 21.16 BUN/Creatinine Ratio 22.7 H 26.0 H Glucose 113 H 113 H POC Glucose Calcium 9.8 9.4 Phosphorus 3.0 Albumin 3.3 L A. phagocytophilum DNA Negative 02/03/24 02/04/24 11:44 06:43 WBC 9.68 RBC 4.55 L Hgb 12.4 L Hct 39.0 L MCV 85.7 MCH 27.3 MCHC 31.8 L RDW Std Deviation 57.9 H RDW Coeff of Sarah 19.5 H Plt Count 168 MPV 11.0 Absolute Nucleated RBC 0.18 H Nucleated RBC % (auto) 1.9 Sodium 139 Potassium 5.6 H Chloride 106 Carbon Dioxide 24 Anion Gap 9 BUN 75 H Creatinine 2.71 H Est Cr Clr Drug Dosing 25.9 eGFR 22.86 BUN/Creatinine Ratio 27.7 H Glucose 185 H POC Glucose 96 Calcium 9.5 Phosphorus 3.4 Albumin 3.3 L A. phagocytophilum DNA Diagnostic Findings Microbiology 01/29/24 11:15 Blood Aerobic Blood Culture - Final No growth in Aerobic bottle after 5 days. 01/29/24 11:15 Blood Anaerobic Blood Culture - Final 01/29/24 11:15 Blood Aerobic Blood Culture - Final No growth in Aerobic bottle after 5 days. 01/29/24 11:15 Blood Anaerobic Blood Culture - Final 01/27/24 16:14 Blood Aerobic Blood Culture - Final Enterococcus faecalis Enterococcus faecium VRE 01/27/24 16:14 Blood Anaerobic Blood Culture - Final Enterococcus faecalis 01/27/24 17:36 Blood Aerobic Blood Culture - Final Enterococcus faecalis 01/27/24 17:36 Blood Anaerobic Blood Culture - Final Enterococcus faecalis Enterococcus faecium 01/27/24 16:25 Urine,Clean Catch Urine Culture - Final No growth - less than 1,000 colonies/mL. (2) Fever Fever type: unspecified Qualified Code(s): R50.9 - Fever, unspecified
--- NOTE | 2024-02-04 13:01 | Hospitalist Progress Note ---
Date of Service February 04, 2024 Assessment & Plan (1) Septic shock: Plan: Present on admission. Resolved with IV fluids and addition of scheduled midodrine. IV fluids have been discontinued. Treat underlying infectious process. Supportive care. Metoprolol succinate has been switched to metoprolol tartrate. (2) Bacteremia: Plan: Enterococcus faecalis isolated in blood cultures drawn January 26. Repeat blood cultures drawn on January 28 are negative to date. He is now on daptomycin. Appreciate infectious disease consultation and recommendations. Facial CT scan reveals 3 periapical abscesses. Patient should have had extraction of 4 infected teeth 02/03. These could certainly be the cause of the enterococcal bacteremia. TTE does not show any obvious aortic bioprosthetic valve vegetations. ID recommends DIOGO given ongoing active source (infected teeth) and bioprosthetic aortic valve. DIOGO is scheduled for 02/04. In the meantime, continue IV antibiotics per ID recommendations. (3) Abnormal CT of the abdomen: Plan: Renal US reveals a benign-appearing right renal cyst. This can be followed further as an outpatient (4) Fall: Plan: Supportive care. OT and PT evaluations. Mechanical fall (5) Chronic renal insufficiency, stage IV (severe): Plan: Today patient has acute kidney injury on CKD stage IV He has a solitary kidney status post left nephrectomy due to renal cell carcinoma Mild DEONNA most likely due to overdiuresis. Discontinued IV Lasix Due to concern of a slight bump in creatinine, patient was given IV fluids prior to surgery. Patient is now off of fluids. Appears to be euvolemic. Car Pincher on board Creatinine stable today at 2.7 Potassium was elevated at 5.6 this morning. Most likely due to potassium replacement. Discontinue potassium pills. Low potassium diet started. Car Pincher ordered repeat potassium this afternoon. (6) Atrial fibrillation: Plan: Chronic atrial fibrillation. Heart rate is controlled. Metoprolol has been restarted and succinate form switched to tartrate form. Continue to hold Xarelto until OMFS clears (7) Hypokalemia: Plan: Potassium corrected. Potassium is rather high today. Discontinue oral potassium twice daily dosing. (8) Hip pain, right: Plan: No injury. X-ray reveals mild degenerative changes. Pain resolved with parenteral steroid therapy which has been discontinued January 30 (9) Acute on chronic diastolic CHF (congestive heart failure): Plan: Due to IV fluid resuscitation. Most recent echo reveals preserved ejection fraction. Parenteral Lasix was ordered every 12 hours. Patient probably got slightly over diuresed with bumped creatinine due to dehydration. Hold off on further Lasix. No IV fluids either. Encourage p.o. fluid intake. (10) Acute respiratory failure with hypoxia: Plan: Most likely from acute on chronic diastolic congestive heart failure Improved Oxygen per nasal cannula to maintain saturation greater than 90%. Wean off as tolerated. Saturating 98% on 2 L. Plan OT and PT assessments requested. He probably will need short-term placement at discharge Preop evaluation: Patient does not have a history of ischemic heart disease. He does have diastolic congestive heart failure (first predictor). No history of stroke. Nondiabetic. Has CKD with creatinine of greater than 2 (second predictor). Not undergoing high risk surgery. Risk of cardiac , nonfatal myocardial infarction and nonfatal cardiac arrest with 2 predictors is 6%. Admission and Anticipated Discharge Date Admission Date: January 27, 2024 Subjective Patient was seen and examined at 11:15 AM. He is feeling well today. He denies any shortness of breath. He is not anxious anymore. The hiccups seem to have resolved. Review of Systems Review of Systems: All systems reviewed & are unremarkable except as noted in Subjective Physical Exam Physical Exam: General: Awake, conversant Heart: S1, S2/regular rate and rhythm, no murmur rubs or gallops Lungs: Clear to auscultation bilaterally. Normal effort Abdomen: Soft/nontender/nondistended. No hepatosplenomegaly Extremities: No clubbing/cyanosis. 1+ pitting bilateral edema. Stockings on. Behavior: Appropriate, cooperative Results & Data Results & Data Vital Signs (Past 12 Hours) Vital Signs Temp Pulse Pulse Pulse Resp BP Pulse Ox 02/04/24 11:14 35.9 C L 84 97/65 L 97 02/04/24 08:10 36.3 C L 105 H 20 105/73 98 02/04/24 07:00 90 02/04/24 02:32 36.4 C L 106 H 18 121/76 94 O2 Del Method O2 Flow Rate 02/04/24 11:14 Nasal Cannula 3 02/04/24 08:10 Nasal Cannula 2 02/04/24 07:00 02/04/24 02:32 CPAP Laboratory Results Abnormal lab results 02/04/24 02/04/24 Range/Units 06:43 11:49 RBC 4.55 L (4.70-6.10) M/uL Hgb 12.4 L (14.0-18.0) g/dl Hct 39.0 L (42.0-52.0) % MCHC 31.8 L (32.0-36.0) g/dL RDW Std Deviation 57.9 H (36.4-46.3) fL RDW Coeff of Sarah 19.5 H (11.5-14.5) % Absolute Nucleated RBC 0.18 H (0.00-0.12) K/uL Potassium 5.6 H 5.4 H (3.5-5.1) mmol/L BUN 75 H (6-23) mg/dl Creatinine 2.71 H (0.6-1.4) mg/dl BUN/Creatinine Ratio 27.7 H (10-20) Glucose 185 H (70-99(Fasting)) mg/dl Albumin 3.3 L (3.4-5.0) gm/dl PG Care Time/CCT Total # of Minutes Spent Total Time Spent with Patient: Total time spent is greater than 50% in coordination of care (as documented) at patient's floor/unit and/or counseling patient: Coding Level of Care Code 53853 SUB INP/OBS CARE 2/35MIN Diagnoses Septic shock A41.9; R65.[address] of the abdomen R93.5 Fall W19.XXXA Encounter type: initial encounter Chronic renal insufficiency, stage IV (severe) N18.4 Atrial fibrillation I48.21 Atrial fibrillation type: permanent Hypokalemia E87.6 Hip pain, right M25.551 Acute on chronic diastolic CHF (congestive heart failure) I50.33 Acute respiratory failure with hypoxia J96.01 (4) Fall Encounter type: initial encounter Qualified Code(s): W19.XXXA - Unspecified fall, initial encounter (6) Atrial fibrillation Atrial fibrillation type: permanent Qualified Code(s): I48.21 - Permanent atrial fibrillation
[2024-02-04] MEDS: SODIUM ZIRCONIUM CYCLOSILICATE 10 GM PACKET PO STA (16:22)
[2024-02-05 04:36] LABS: Hematocrit (blood only) 42.2 % (42.0-52.0); Hemoglobin 12.9 g/dl (14.0-18.0); Mean Corpuscular Hgb Conc 30.6 g/dL (32.0-36.0); Mean Corpuscular Volume 88.3 fL (80.0-100.0); Mean Platelet Volume 10.9 fL (9.4-12.4); Nucleated RBC # (auto) 0.25 K/uL (0.00-0.12); Nucleated RBC % (auto) 1.6 %; Platelet Count 190 K/uL (130-400); RDW Coefficient of Variation 19.8 % (11.5-14.5); RDW Standard Deviation 59.9 fL (36.4-46.3); Red Blood Count 4.78 M/uL (4.70-6.10); White Blood Count 15.56 K/ul (4.8-10.8)
[2024-02-05 04:39] LABS: Albumin Level 3.4 gm/dl (3.4-5.0); BUN Creatinine Ratio 27.8 (10-20); Calcium 9.8 mg/dl (8.6-10.3); Creatinine Clr Calc Pharmacy 27.5 ml/min; Phosphorus 3.7 mg/dl (2.5-4.9); Potassium 5.4 mmol/L (3.5-5.1)
--- NOTE | 2024-02-05 07:34 | Anesthesiology Consultation ---
Date of Service February 05, 2024 Assessment & Plan Chart Review Chart Review: Acceptable Risk for Surgery, Patient NOT seen in Pre Admission Testing and entry level staff accountant initiated Consults Requested none ASA ASA4 Proposed Anesthesia Anesthesia Type: MAC Risk / Benefits Reviewed With: PT / POA / Parent / Guardian, Accepts Plan and Informed Consent Obtained History Surgery Operation Date: 02/03/24 10:45 Proposed Procedures p Extraction #3, 4, 5, 21 - Naveed Whitney DMD s Incision and Drainage Right Oral Cavity - Naveed Whitney DMD Operation Date: 02/04/24 08:00 Proposed Procedures p Transesophageal Echo w/Anesthesia - Taco Izquierdo MD Operation Date: 02/05/24 07:15 Proposed Procedures p Transesophageal Echo w/Anesthesia - Taco Izquierdo MD Height/Weight Height: 5 ft 7 in Weight: 116.3 kg Allergies Allergy/AdvReac Type Severity Reaction Status Date / Time iron [From Venofer] AdvReac Mild Vomiting Verified 02/03/24 11:53 Iodinated Contrast Media AdvReac Unknown PT ONLY Verified 02/03/24 11:53 [Iodinated Contrast- Oral HAS 1 and IV Dye] KIDNEY, CONTRAINDICATED. Medications Home Medications Medication Instructions Recorded Confirmed Last Taken amoxicillin 500 mg tablet 2,000 mg PO DIRECTED PRN 1 HOUR 11/16/18 01/27/24 Unknown PRIOR TO DENTAL PROCEDURES docusate sodium 100 mg capsule 100 mg PO QAM PRN Constipation 05/03/20 01/27/24 Unknown cholecalciferol (vitamin D3) 50 50 mcg PO DAILY 07/10/22 01/27/24 2 Days Ago mcg (2,000 unit) capsule (Vitamin ~12/20/23 D3) magnesium 250 mg tablet 250 mg PO HS 07/10/22 01/27/24 2 Days Ago ~12/20/23 cyanocobalamin (vitamin B-12) 1,000 mcg IM Q90D #30 mL 09/23/22 01/27/24 2 Days Ago 1,000 mcg/mL injection solution ~12/20/23 metolazone 5 mg tablet 5 mg PO DAILY PRN weight gain #30 10/23/22 01/27/24 Unknown tabs rivaroxaban 15 mg tablet 15 mg PO HS #90 tabs 02/09/23 01/27/24 2 Days Ago ~12/20/23 Portable Oxygen #1 ea 05/25/23 01/27/24 Unknown calcitriol 0.25 mcg capsule 0.5 mcg (2 x 0.25 mcg) PO QAM #180 08/11/23 01/27/24 2 Days Ago caps ~12/20/23 potassium chloride 10 mEq 10 meq PO BID #180 caps 09/29/23 01/27/24 2 Days Ago capsule,extended release ~12/20/23 cyclobenzaprine 5 mg tablet 5 mg PO BID PRN muscle 11/20/23 01/27/24 12/06/23 pain/stiffness #60 tabs bumetanide 2 mg tablet 3 mg PO QAM 12/22/23 01/27/24 2 Days Ago ~12/20/23 mupirocin 2 % topical ointment 1 applic topical TID PRN irritation 12/22/23 01/27/24 Unknown tamoxifen 20 mg tablet 20 mg PO QAM 12/22/23 01/27/24 2 Days Ago ~12/20/23 metoprolol succinate 25 mg 75 mg (3 x 25 mg) PO QPM #90 tabs 12/28/23 01/27/24 Unknown tablet,extended release 24 hr metoprolol succinate 50 mg 50 mg PO QAM #30 tabs 12/28/23 01/27/24 Unknown tablet,extended release 24 hr tramadol 50 mg tablet 50 mg PO BID PRN Pain #60 tabs 01/14/24 01/27/24 Unknown allopurinol 100 mg tablet 100 mg PO QAM #90 tabs 01/22/24 01/27/24 Unknown Active Medications Generic Name Dose Route Start Last Admin Trade Name Patricio PRN Reason Stop Dose Admin Acetaminophen 650 mg 01/28/24 12:20 02/05/24 04:39 Acetaminophen 325 Mg Tab PO 02/27/24 12:19 650 mg Q6H PRN Administration Fever Hydrocodone Bitart/Acetaminophen 1 tab 02/03/24 16:39 02/03/24 23:19 Hydrocodone/Acetamophen 5/325mg Tab PO 02/17/24 16:38 1 tab Q4 PRN Administration Pain Allopurinol 100 mg 01/28/24 09:00 02/04/24 09:09 Allopurinol 100 Mg Tab PO 02/27/24 08:59 100 mg QAM BEHZAD Administration Calcitriol 0.5 mcg 01/28/24 09:00 02/04/24 09:08 Calcitriol 0.25 Mcg Capsule PO 02/27/24 08:59 0.5 mcg QAM BEHZAD Administration Docusate Sodium 100 mg 01/28/24 21:06 01/28/24 21:37 Docusate Sodium 100 Mg Cap PO 02/28/24 08:59 100 mg DAILY PRN Administration constipation Daptomycin 825 mg/ Syringe 16.5 mls @ 8.25 mls/min 01/29/24 11:00 02/04/24 16:22 IV 02/12/24 10:59 8.25 mls/min Q48H BEHZAD Administration Protocol Magnesium Oxide 200 mg 01/27/24 22:00 02/04/24 21:35 Magnesium Oxide 400 Mg Tab PO 02/26/24 21:59 200 mg HS BEHZAD Administration Metoprolol Tartrate 50 mg 01/31/24 09:00 02/04/24 21:36 Metoprolol Tartrate 50 Mg Tab PO 03/01/24 08:59 50 mg BID BEHZAD Administration Midodrine 10 mg 01/28/24 08:00 02/04/24 16:22 Midodrine Hcl 10 Mg Tab PO 02/27/24 07:59 10 mg TID@0800,1200,1700 BEHZAD Administration Rivaroxaban 15 mg 01/27/24 21:41 01/31/24 20:38 Rivaroxaban 15 Mg Tab PO 02/26/24 21:40 15 mg HS BEHZAD Administration NPO Date Last Intake of Fluids: 02/05/24 Time Last Intake of Fluids: 05:00 Last Intake of Fluids Comment: NPO after midnight, sips of water with meds this am Date Last Intake of Solids: 02/03/24 Time Last Intake of Solids: 17:00 Past Medical History Medical History Diabetes mellitus Aspiration into respiratory tract Acute kidney injury superimposed on CKD Morbid obesity History of anxiety Hx of gout Hx of rotator cuff tear Difficulty with raising arms without extreme pain, currently in PT Hx of osteoarthritis Hx of impacted cerumen History of COVID-19 01/2021 > "mild" cold symptoms, resolved Prediabetes Kidney stones Hx x7 Renal cell adenocarcinoma s/p nephrectomy Chronic kidney disease, stage III (moderate) CKD (chronic kidney disease), stage III Past Family History Family History Mother Breast cancer Lung disease Grandmother (Maternal) Breast cancer Aunt Breast cancer Sister Breast cancer Father Myocardial infarction Arthritis Denies family history of Ovarian cancer Prostate cancer Colorectal cancer Past Surgical History Surgical History H/O aortic valve replacement Hx of cardiac catheterization 11/2020 > no stents History of total bilateral knee replacement History of esophagogastroduodenoscopy (EGD) Hx of colonoscopy Hx of tonsillectomy Hx of cystoscopy w/stone basketing History of left nephrectomy History of spinal surgery Aortic valve replaced bioprosthesis, 2006 History of gastric bypass History of cholecystectomy Social History Smoking Status: Never smoker Do You Dip or Chew Tobacco: No Hx Alcohol Use: No alcohol intake frequency: holidays/special occasions only Hx Substance Use: No substance use type: does not use Physical Exam Vital Signs Last Vital Signs Temp 36.4 C L 02/05/24 07:15 Pulse 82 02/05/24 07:29 Resp 18 02/05/24 07:15 BP 108/83 02/05/24 07:15 Pulse Ox 92 02/05/24 07:15 O2 Del Method Room Air 02/05/24 07:15 O2 Flow Rate 3 02/05/24 03:32 Constitutional + morbidly obese; no acute distress ENMT Mouth: + dental restorations; no chipped teeth and no loose teeth Thyromental Distance: > or= 3.5 Finger Breadths Mallampati Class: III Neck normal visual inspection and trachea midline; neck extension not limited Respiratory normal respiratory effort; no respiratory distress Auscultation: lungs clear to auscultation bilaterally and + wheezes (faint); no crackles and no rhonchi Cardiovascular Rate/Rhythm: + tachycardic; + abnormal rhythm Heart Sounds: + murmur; no gallop and no cardiac rub Musculoskeletal Head/Neck/Chest: full ROM of neck Neurologic moves all extremities and awake Psychiatric Orientation: alert and oriented x 3 Testing Laboratory Results 02/05/24 03:42 02/05/24 03:42 PT 15.7 Seconds (9.0-12.0) H 01/27/24 16:14 INR 1.5 (0.9-1.1) H 01/27/24 16:14 APTT 32 Seconds (21-31) H 01/27/24 16:14 Urine Color Yellow 01/27/24 16:25 Urine Appearance Clear (Clear) 01/27/24 16:25 Urine pH 6.0 (4.5-7.5) 01/27/24 16:25 Ur Specific [place] 1.012 (1.000-1.030) 01/27/24 16:25 Urine Protein 1+ (Negative) H 01/27/24 16:25 Urine Glucose (UA) Negative (Negative) 01/27/24 16:25 Urine Ketones Negative (Negative) 01/27/24 16:25 Urine Nitrite Negative (Negative) 01/27/24 16:25 Ur Leukocyte Esterase Negative (Negative) 01/27/24 16:25 Urine WBC (Auto) 0-5 /hpf (0-5) 01/27/24 16:25 Urine RBC (Auto) >20 /hpf (0-2) H 01/27/24 16:25 U Hyaline Cast (Auto) 0-2 /lpf (0-2) 01/27/24 16:25 U Epithel Cells (Auto) 0-2 /hpf (0-2) 01/27/24 16:25 Urine Bacteria (Auto) None Seen (None Seen) 01/27/24 16:25 01/29/24 11:15 Aerobic Blood Culture - Final Blood No growth in Aerobic bottle after 5 days. Anaerobic Blood Culture - Final 01/29/24 11:15 Aerobic Blood Culture - Final Blood No growth in Aerobic bottle after 5 days. Anaerobic Blood Culture - Final 01/27/24 16:14 Aerobic Blood Culture - Final Blood Enterococcus faecalis Enterococcus faecium VRE Anaerobic Blood Culture - Final Enterococcus faecalis 01/27/24 17:36 Aerobic Blood Culture - Final Blood Enterococcus faecalis Anaerobic Blood Culture - Final Enterococcus faecalis Enterococcus faecium 01/27/24 16:25 Urine Culture - Final Urine,Clean Catch No growth - less than 1,000 colonies/mL.
--- NOTE | 2024-02-05 08:31 | Communication Note ---
Date of Service: February 05, 2024 Underwent DIOGO today with anesthesia No evidence of vegetations or abscess. 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 Long-term mitral valve repair could be considered when infectious issues resolved
[2024-02-05] MEDS: SODIUM ZIRCONIUM CYCLOSILICATE 10 GM PACKET PO STA (09:32)
[2024-02-05] MEDS: PROPOFOL IV EMULSION 10 MG/ML 20 ML VIAL IV ONE ×2 (09:39)
[2024-02-05] MEDS: BENZOCAINE/TETRACAIN/BUTAM 50 APPLN/5 GM CAN EXT ONE (09:39)
[2024-02-05] MEDS: PHENYLEPHRINE 100MCG/ML 10ML SYR IV ONE (09:39)
--- NOTE | 2024-02-05 12:02 | Nephrology Progress Note ---
Date of Service February 05, 2024 Assessment & Plan (1) DEONNA (acute kidney injury): (2) Chronic renal insufficiency: (3) CHF (congestive heart failure): (4) Iron deficiency anemia: (5) Bacteremia: (6) Hypotension: (7) Chronic renal insufficiency, stage IV (severe): Plan 83-year-old gentleman with stage IV CKD with solitary right kidney, left nephrectomy and congestive heart failure with diastolic dysfunction and preserved EF, admitted to the hospital with sepsis and bacteremia with GPC possibly peridental abscess. Kidney function was stable at baseline on admission however developed DEONNA after diuretic for apparent volume overload from initially fluid resuscitation for sepsis.urinalysis and renal imaging was otherwise unremarkable. Kidney function improved form recent DEONNA and staying relatively stable, creatinine close to baseline, electrolyte acceptable. Blood pressure fair, volume status otherwise acceptable. Potassium was 5.4. --Lokelma 10 gm x 1 dose now, low potassium diet. --continue to keep off of diuretics for now, strict intake and output measur ement if become significantly positive, encourage po intake. -- Continue calcitriol -- Dose medications for eGFR less than 15 Will sign off, please contact if any further assistance needed. Admission and Anticipated Discharge Date Admission Date: January 27, 2024 Subjective Ed was seen and evaluated this morning. He just came back after having DIOGO, feels tired and sleepy but denied any other concerns. Blood pressure low but stable. Kidney function improved and stable. Potassium was elevated at 5.4 this morning. Review of Systems Review of Systems: ROS was otherwise unremarkable. Physical Exam Constitutional: WD/WN, vitals as above no acute distress Eyes: + anicteric sclerae Respiratory: no respiratory distress Auscultation: lungs clear to auscultation bilaterally Cardiovascular: Rate/Rhythm: regular rate, regular rhythm and + irregularly irregular Heart Sounds: normal S1 and normal S2 Extremities: no edema Musculoskeletal: Extremities: extremities normal to inspection Neurologic: no focal motor deficits Psychiatric: Orientation: alert and oriented x 3 Affect: euthymic affect Results & Data Vital Signs (Past 12 Hours) Vital Signs Temp Pulse Pulse Pulse Resp BP BP 02/05/24 11:29 94 H 18 109/74 02/05/24 08:51 36.3 C L 109 H 20 119/87 02/05/24 08:30 107 H 18 113/61 02/05/24 08:15 102 H 18 112/85 11/08/24 08:09 107 H 18 103/80 02/05/24 07:29 82 02/05/24 07:15 36.4 C L 94 H 94 H 18 108/83 02/05/24 03:32 35.7 C L 120 H 19 126/80 Pulse Ox O2 Del Method O2 Flow Rate 02/05/24 11:29 97 Nasal Cannula 2 02/05/24 08:51 95 Room Air 02/05/24 08:30 100 Oxymask 3 02/05/24 08:15 98 Oxymask 3 02/05/24 08:09 100 Oxymask 3 02/05/24 07:29 02/05/24 07:15 92 Room Air 02/05/24 03:32 98 CPAP 3 PG Care Time/CCT Total # of Minutes Spent Total Time Spent with Patient: Total time spent is greater than 50% in coordination of care (as documented) at patient's floor/unit and/or counseling patient: Coding Level of Care Code 41292 SUB INP/OBS CARE 2/35MIN Diagnoses DEONNA (acute kidney injury) N17.9 Chronic renal insufficiency N18.9 CHF (congestive heart failure) I50.9 Iron deficiency anemia D50.9 Bacteremia R78.81 Hypotension I95.9 Hypotension type: unspecified hypotension type Chronic renal insufficiency, stage IV (severe) N18.4 (6) Hypotension Hypotension type: unspecified hypotension type Qualified Code(s): I95.9 - Hypotension, unspecified
--- NOTE | 2024-02-05 12:45 | Infectious Disease Progress Nt ---
Date of Service February 05, 2024 Assessment & Plan (1) Bacteremia: (2) Fever: Plan This is an 83-year-old man with a past medical history bilateral knee replacement, aortic valve replacement spinal surgery, DM2, CKD presents to the ED status post fall and unable to get up. Noted to be weak and febrile. Complained of feeling thirsty, weak with chills. States he fell because he slipped off his bed In the ED febrile, temp 39.6, pulse 105, respiratory rate 33, blood pressure 108/79-->83/46 , O2 sats 91% on 2 L. Labs WBC 9.16, BUN 47, creatinine 2.73, total bili 2.4, MRSA nasal screen positive. Respiratory viral panel negative, Biofire PCR positive for VRE. BC with 4/4 GPC. Urinalysis 0-5 WBC. Chest x-ray no consolidations. Head CT no acute findings. CT abdomen/pelvis groundglass opacities within the right lobe which could reflect atelectasis versus infectious process. No evidence of bowel obstruction post Juan-en-Y bypass. Possible proteinaceous cyst versus solid lesion on the right kidney. Renal ultrasound shows that this lesion is more consistent with a cyst. Several additional renal cysts noted. No hydronephrosis. He received Cefepime,Doxycycline and vancomycin. He has been started o Linezolid . ID consulted for GPC bacteremia. E Microbiology: Blood culture 01/26 4/4 bottles E faecalis ( pans) and 2/2 bottles VRE ( E faecium) Urine culture 01/27/2024 NGTD MRSA nares + 01/26 Blood culture 01/28 NG Antibiotics: Cefepime 01/26 Vancomycin 01/27 Doxycycline 01/26 Linezolid daptomycin 01/28-ongoing CT face Brain: Unremarkable. No hemorrhage. No significant white matter disease. No edema. Ventricles: Unremarkable. No ventriculomegaly. Bones/joints: No acute fracture. Dental caries with periapical lucencies about tooth #3, 22 and 25 concerning for periapical abscesses. Multiple root canals. Soft tissues: Unremarkable. Sinuses: Unremarkable as visualized. No acute sinusitis. Mastoid air cells: Unremarkable as visualized. No mastoid effusion. Orbits: Unremarkable as visualized. IMPRESSION: Dental caries with periapical lucencies about tooth #3, 22 and 25 concerning for periapical abscesses. Recommend dental consult. #VRE AND E faecalis bacteremia, likely from dental source #Sepsis, resolved # Poor dentition with dental pain and ? periapical abscess # Multiple excoriated lesions on abdomen, ongoing for months per pt #S/p Aortic valve placement. #BL TKA #S/P spinal surgery, no hardware per his report # CKD # Thrombocytopenia, resolved Discussion: VRE ( feacium ) AND E faecalis bacteremia, source unclear, but possibly from dental source. . Usual part of [facility]. He is status post aortic valve placement, bilateral TKA and spinal surgery. No spinal hardware per his report. BL knee does not appear acutely infected. No spinal tenderness. He has poor dentition with an ?ulcer in the R gum on initial exam that he states has been " draining for a few week" and was pending dental eval and root canal. He has excoriated papules on upper abd that are pruritic- ongoing for months per his report , states it " drains crystal" CT face shows Dental caries with periapical lucencies about tooth #3, 22 and 25 concerning for periapical abscesses. He denies back, knee pain. No spinal TTP or knee effusion on exam . NO or GI symptoms. TTE without vegatations, but poor study OMFS following 02/02 underwent dental extractions #3,#4, #5 and # 21. 02/03 doing well pending DIOGO tomorrow. Repeat BC NGtD 02/04 sp DIOGO- final results pending, but per cardiology note "No evidence of vegetations or abscess. 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 Long-term mitral valve repair could be considered when infectious issues resolved" Recommendations Monitor WBC Continue Daptomycin 10 mg/kg per abw(825 mg)IV Q 48 hrs ( crcl < 30) CPK 41 If crcl > 30 , change to DAILY dosing. Complete 4- weeks IV abx from tooth extraction ( 02/02-02/27) for high grade E feacalis and VRE bacteremia in a pt with TKA and prosthetic valve. BC NG on 01/28. DIOGO-no evidence of vegatations/abscess, no c/f prosthetic infective endocarditis. Monitor weekly labs on dc: CBC with diff, BMP, LFT, CK Check repeat BC 1 week post completion of abx to ensure BC remains sterile Follow up Cardiology/ CT surgery outpatient regarding need for Mitral valve repair. Set up care with local ID for further monitoring ID will sign off. Call with questions. Willie Marshall MD, MPH Infectious Disease [facility] Call [phone] with questions Admission and Anticipated Discharge Date Admission Date: January 27, 2024 Subjective Subsequent visit was provided via telemedicine using two-way real-time interactive telecommunication between the patient and the telemedicine provider. For the duration of the visit, the provider was performing the assessment from a different facility than the patient. This includesuse of bluetooth stethoscope forauscultationperformed by the telepresenter that the telemedicine provider can hear if described in the physical exam. [employer] Operator contact information: Please call [facility] [phone]. (Phone Number For Physician Use Only) After establishing a telemedicine visit, patient was: Patient was verified with two unique identifiers Time Spent with Patient: Subsequent => 35 min sp DIOGO, sleepy No evidence of vegetations WBC 15.56 Physical Exam Physical Exam: Gen- sleepy post DIOGO Heent- poor dentition. Sp extractions Lungs- NO increased wob, on 2l NC Skin- multiple scattered excoriated dried lesions on epigastric area. Well heeled BL TKA incisions LE - BL 1 + edema . No knee effusion Neuro- AAO times 3 Psych- normal mood, cooperative Results & Data Vital Signs (Past 12 Hours) Vital Signs Temp Pulse Pulse Pulse Resp BP BP 02/05/24 11:29 94 H 18 109/74 02/05/24 08:51 36.3 C L 109 H 20 119/87 02/05/24 08:30 107 H 18 113/61 02/05/24 08:15 102 H 18 112/85 02/05/24 08:09 107 H 18 103/80 02/05/24 07:29 82 02/05/24 07:15 36.4 C L 94 H 94 H 18 108/83 02/05/24 03:32 35.7 C L 120 H 19 126/80 Pulse Ox O2 Del Method O2 Flow Rate 02/05/24 11:29 97 Nasal Cannula 2 02/05/24 08:51 95 Room Air 02/05/24 08:30 100 Oxymask 3 02/05/24 08:15 98 Oxymask 3 02/05/24 08:09 100 Oxymask 3 02/05/24 07:29 02/05/24 07:15 92 Room Air 02/05/24 03:32 98 CPAP 3 Laboratory Results Laboratory Results - last 48 hr 02/04/24 02/04/24 02/05/24 06:43 11:49 03:42 WBC 9.68 15.56 H RBC 4.55 L 4.78 Hgb 12.4 L 12.9 L Hct 39.0 L 42.2 MCV 85.7 88.3 MCH 27.3 27.0 MCHC 31.8 L 30.6 L RDW Std Deviation 57.9 H 59.9 H RDW Coeff of Sarah 19.5 H 19.8 H Plt Count 168 190 MPV 11.0 10.9 Absolute Nucleated RBC 0.18 H 0.25 H Nucleated RBC % (auto) 1.9 1.6 Sodium 139 138 Potassium 5.6 H 5.4 H 5.4 H Chloride 106 104 Carbon Dioxide 24 27 Anion Gap 9 7 BUN 75 H 71 H Creatinine 2.71 H 2.55 H Est Cr Clr Drug Dosing 25.9 27.5 eGFR 22.86 24.59 BUN/Creatinine Ratio 27.7 H 27.8 H Glucose 185 H 141 H Calcium 9.5 9.8 Phosphorus 3.4 3.7 Total Creatine Kinase 16 L Albumin 3.3 L 3.4 Diagnostic Findings Microbiology 01/29/24 11:15 Blood Aerobic Blood Culture - Final No growth in Aerobic bottle after 5 days. 01/29/24 11:15 Blood Anaerobic Blood Culture - Final 01/29/24 11:15 Blood Aerobic Blood Culture - Final No growth in Aerobic bottle after 5 days. 01/29/24 11:15 Blood Anaerobic Blood Culture - Final 01/27/24 16:14 Blood Aerobic Blood Culture - Final Enterococcus faecalis Enterococcus faecium VRE 01/27/24 16:14 Blood Anaerobic Blood Culture - Final Enterococcus faecalis 01/27/24 17:36 Blood Aerobic Blood Culture - Final Enterococcus faecalis 01/27/24 17:36 Blood Anaerobic Blood Culture - Final Enterococcus faecalis Enterococcus faecium 01/27/24 16:25 Urine,Clean Catch Urine Culture - Final No growth - less than 1,000 colonies/mL. Medications Administered Home Medications Medication Instructions Recorded Confirmed Last Taken amoxicillin 500 mg tablet 2,000 mg PO DIRECTED PRN 1 HOUR 11/16/18 01/27/24 Unknown PRIOR TO DENTAL PROCEDURES docusate sodium 100 mg capsule 100 mg PO QAM PRN Constipation 05/03/20 01/27/24 Unknown cholecalciferol (vitamin D3) 50 50 mcg PO DAILY 07/10/22 01/27/24 2 Days Ago mcg (2,000 unit) capsule (Vitamin ~12/20/23 D3) magnesium 250 mg tablet 250 mg PO HS 07/10/22 01/27/24 2 Days Ago ~12/20/23 cyanocobalamin (vitamin B-12) 1,000 mcg IM Q90D #30 mL 09/23/22 01/27/24 2 Days Ago 1,000 mcg/mL injection solution ~12/20/23 metolazone 5 mg tablet 5 mg PO DAILY PRN weight gain #30 10/23/22 01/27/24 Unknown tabs rivaroxaban 15 mg tablet 15 mg PO HS #90 tabs 02/09/23 01/27/24 2 Days Ago ~12/20/23 Portable Oxygen #1 ea 05/25/23 01/27/24 Unknown calcitriol 0.25 mcg capsule 0.5 mcg (2 x 0.25 mcg) PO QAM #180 08/11/23 01/27/24 2 Days Ago caps ~12/20/23 potassium chloride 10 mEq 10 meq PO BID #180 caps 09/29/23 01/27/24 2 Days Ago capsule,extended release ~12/20/23 cyclobenzaprine 5 mg tablet 5 mg PO BID PRN muscle 11/20/23 01/27/24 12/06/23 pain/stiffness #60 tabs bumetanide 2 mg tablet 3 mg PO QAM 12/22/23 01/27/24 2 Days Ago ~12/20/23 mupirocin 2 % topical ointment 1 applic topical TID PRN irritation 12/22/23 01/27/24 Unknown tamoxifen 20 mg tablet 20 mg PO QAM 12/22/23 01/27/24 2 Days Ago ~12/20/23 metoprolol succinate 25 mg 75 mg (3 x 25 mg) PO QPM #90 tabs 12/28/23 01/27/24 Unknown tablet,extended release 24 hr metoprolol succinate 50 mg 50 mg PO QAM #30 tabs 12/28/23 01/27/24 Unknown tablet,extended release 24 hr tramadol 50 mg tablet 50 mg PO BID PRN Pain #60 tabs 01/14/24 01/27/24 Unknown allopurinol 100 mg tablet 100 mg PO QAM #90 tabs 01/22/24 01/27/24 Unknown Active Medications Generic Name Dose Route Start Last Admin Trade Name Freq PRN Reason Stop Dose Admin Acetaminophen 650 mg 01/28/24 12:20 02/05/24 04:39 Acetaminophen 325 Mg Tab PO 02/27/24 12:19 650 mg Q6H PRN Administration Fever Hydrocodone Bitart/Acetaminophen 1 tab 02/03/24 16:39 02/03/24 23:19 Hydrocodone/Acetamophen 5/325mg Tab PO 02/17/24 16:38 1 tab Q4 PRN Administration Pain Allopurinol 100 mg 01/28/24 09:00 02/05/24 08:54 Allopurinol 100 Mg Tab PO 02/27/24 08:59 100 mg QAM BEHZAD Administration Calcitriol 0.5 mcg 01/28/24 09:00 02/05/24 08:53 Calcitriol 0.25 Mcg Capsule PO 02/27/24 08:59 0.5 mcg QAM BEHZAD Administration Docusate Sodium 100 mg 01/28/24 21:06 01/28/24 21:37 Docusate Sodium 100 Mg Cap PO 02/28/24 08:59 100 mg DAILY PRN Administration constipation Daptomycin 825 mg/ Syringe 16.5 mls @ 8.25 mls/min 01/29/24 11:00 02/04/24 16:22 IV 02/12/24 10:59 8.25 mls/min Q48H BEHZAD Administration Protocol Magnesium Oxide 200 mg 01/27/24 22:00 02/04/24 21:35 Magnesium Oxide 400 Mg Tab PO 02/26/24 21:59 200 mg HS BEHZAD Administration Metoprolol Tartrate 50 mg 01/31/24 09:00 02/05/24 08:54 Metoprolol Tartrate 50 Mg Tab PO 03/01/24 08:59 50 mg BID BEHZAD Administration Midodrine 10 mg 01/28/24 08:00 02/05/24 12:28 Midodrine Hcl 10 Mg Tab PO 02/27/24 07:59 10 mg TID@0800,1200,1700 BEHZAD Administration Rivaroxaban 15 mg 01/27/24 21:41 01/31/24 20:38 Rivaroxaban 15 Mg Tab PO 02/26/24 21:40 15 mg HS BEHZAD Administration (2) Fever Fever type: unspecified Qualified Code(s): R50.9 - Fever, unspecified
--- NOTE | 2024-02-05 13:01 | Anesthesiology Progress Note ---
Date of Service February 05, 2024 Anesthesia Post Procedure Vital Signs Vital Signs: Temp Pulse Pulse Pulse Resp BP BP 02/05/24 11:29 94 H 18 109/74 02/05/24 08:51 36.3 C L 109 H 20 119/87 02/05/24 08:30 107 H 18 113/61 02/05/24 08:15 102 H 18 112/85 02/05/24 08:09 107 H 18 103/80 02/05/24 07:29 82 02/05/24 07:15 36.4 C L 94 H 94 H 18 108/83 02/05/24 03:32 35.7 C L 120 H 19 126/80 02/04/24 22:04 36.5 C 124 H 18 118/84 02/04/24 21:45 103 H 02/04/24 21:00 02/04/24 19:12 36.6 C 97 H 18 109/73 02/04/24 15:19 36.7 C 97 H 21 105/63 Pulse Ox O2 Del Method O2 Flow Rate 02/05/24 11:29 97 Nasal Cannula 2 02/05/24 08:51 95 Room Air 02/05/24 08:30 100 Oxymask 3 02/05/24 08:15 98 Oxymask 3 02/05/24 08:09 100 Oxymask 3 02/05/24 07:29 02/05/24 07:15 92 Room Air 02/05/24 03:32 98 CPAP 3 02/04/24 22:04 95 Nasal Cannula 2.5 02/04/24 21:45 02/04/24 21:00 Nasal Cannula 2 02/04/24 19:12 99 Nasal Cannula 2.5 02/04/24 15:19 92 Nasal Cannula 3 Pain Intensity Right Hip: Pain Intensity: 3 Transfer of Care Handoff Completed per policy Notes Mental Status: alert / awake / arousable and participated in evaluation Patient Amnestic to Procedure: Yes Nausea / Vomiting: adequately controlled Pain: adequately controlled Airway Patency, RR, SpO2: stable & adequate BP & HR: stable & adequate Hydration State: stable & adequate Anesthetic Complications: no major complications apparent
[2024-02-05] MEDS: BUMETANIDE 1 MG TAB PO ONE (14:44)
--- NOTE | 2024-02-05 16:15 | Hospitalist Progress Note ---
Date of Service February 05, 2024 Assessment & Plan (1) Septic shock: Plan: Present on admission. Resolved with IV fluids and addition of scheduled midodrine. IV fluids have been discontinued. Treat underlying infectious process. Supportive care. Metoprolol succinate has been switched to metoprolol tartrate. (2) Bacteremia: Plan: Enterococcus faecalis isolated in blood cultures drawn January 26. Repeat blood cultures drawn on January 28 are negative to date. He is now on daptomycin. Appreciate infectious disease consultation and recommendations. Facial CT scan reveals 3 periapical abscesses. Patient had extraction of 4 infected teeth 02/03. These could certainly be the cause of the enterococcal bacteremia. TTE does not show any obvious aortic bioprosthetic valve vegetations. DIOGO negative as well. In the meantime, continue IV antibiotics per ID recommendations. (3) Abnormal CT of the abdomen: Plan: Renal US reveals a benign-appearing right renal cyst. This can be followed further as an outpatient (4) Fall: Plan: Supportive care. OT and PT evaluations. Mechanical fall (5) Chronic renal insufficiency, stage IV (severe): Plan: Today patient has acute kidney injury on CKD stage IV He has a solitary kidney status post left nephrectomy due to renal cell carcinoma Mild EDONNA most likely due to overdiuresis. Discontinued IV Lasix Due to concern of a slight bump in creatinine, patient was given IV fluids prior to surgery. Patient is now off of fluids. Patient seems to have gained weight since admission [employer] on board Creatinine stable today at 2.5 Potassium was 5.4 this morning Lokelma ordered Resumed Bumex at 2 mg today. (6) Atrial fibrillation: Plan: Chronic atrial fibrillation. Heart rate is controlled. Metoprolol has been restarted and succinate form switched to tartrate form. Continue to hold Xarelto until OMFS clears (7) Hypokalemia: Plan: Potassium corrected. Potassium is rather high today. Discontinue oral potassium twice daily dosing. Patient was given Lokelma Bumex was started which should help (8) Hip pain, right: Plan: No injury. X-ray reveals mild degenerative changes. Pain resolved with parenteral steroid therapy which has been discontinued January 30 (9) Acute on chronic diastolic CHF (congestive heart failure): Plan: Due to IV fluid resuscitation. Most recent echo reveals preserved ejection fraction. Parenteral Lasix was ordered every 12 hours. Patient probably got slightly over diuresed with bumped creatinine due to dehydration. Hold off on further Lasix. No IV fluids either. Encourage p.o. fluid intake. (10) Acute respiratory failure with hypoxia: Plan: Most likely from acute on chronic diastolic congestive heart failure Improved Oxygen per nasal cannula to maintain saturation greater than 90%. Wean off as tolerated. Saturating 98% on 2 L. Plan Patient will need rehab at discharge Admission and Anticipated Discharge Date Admission Date: January 27, 2024 Subjective Patient was seen and examined at 12:40 PM. He is accompanied by his and the bedside. He feels well today. But he tells me that he feels like he is starting to get bloated again. He is breathing well. Review of Systems Review of Systems: All systems reviewed & are unremarkable except as noted in Subjective Physical Exam Physical Exam: General: Awake, conversant Heart: S1, S2/regular rate and rhythm, no murmur rubs or gallops Lungs: Clear to auscultation bilaterally. Normal effort Abdomen: Soft/nontender/nondistended. No hepatosplenomegaly Extremities: No clubbing/cyanosis. 2+ pitting bilateral edema. Stockings on. Behavior: Appropriate, cooperative Results & Data Results & Data Vital Signs (Past 12 Hours) Vital Signs Temp Pulse Pulse Pulse Resp BP BP 02/05/24 11:29 94 H 18 109/74 02/05/24 08:51 36.3 C L 109 H 20 119/87 02/05/24 08:30 107 H 18 113/61 02/05/24 08:15 102 H 18 112/85 02/05/24 08:09 107 H 18 103/80 02/05/24 07:29 82 02/05/24 07:15 36.4 C L 94 H 94 H 18 108/83 Pulse Ox O2 Del Method O2 Flow Rate 02/05/24 11:29 97 Nasal Cannula 2 02/05/24 08:51 95 Room Air 02/05/24 08:30 100 Oxymask 3 02/05/24 08:15 98 Oxymask 3 02/05/24 08:09 100 Oxymask 3 02/05/24 07:29 02/05/24 07:15 92 Room Air Laboratory Results Abnormal lab results 02/05/24 Range/Units 03:42 WBC 15.56 H (4.8-10.8) K/ul Hgb 12.9 L (14.0-18.0) g/dl MCHC 30.6 L (32.0-36.0) g/dL RDW Std Deviation 59.9 H (36.4-46.3) fL RDW Coeff of Sarah 19.8 H (11.5-14.5) % Absolute Nucleated RBC 0.25 H (0.00-0.12) K/uL Potassium 5.4 H (3.5-5.1) mmol/L BUN 71 H (6-23) mg/dl Creatinine 2.55 H (0.6-1.4) mg/dl BUN/Creatinine Ratio 27.8 H (10-20) Glucose 141 H (70-99(Fasting)) mg/dl Total Creatine Kinase 16 L (30-223) U/L PG Care Time/CCT Total # of Minutes Spent Total Time Spent with Patient: Total time spent is greater than 50% in coordination of care (as documented) at patient's floor/unit and/or counseling patient: Coding Level of Care Code 18990 SUB INP/OBS CARE 235MIN Diagnoses Septic shock A41.9; R65.[address] of the abdomen R93.5 Fall W19.XXXA Encounter type: initial encounter Chronic renal insufficiency, stage IV (severe) N18.4 Atrial fibrillation I48.21 Atrial fibrillation type: permanent Hypokalemia E87.6 Hip pain, right M25.551 Acute on chronic diastolic CHF (congestive heart failure) I50.33 Acute respiratory failure with hypoxia J96.01 (4) Fall Encounter type: initial encounter Qualified Code(s): W19.XXXA - Unspecified fall, initial encounter (6) Atrial fibrillation Atrial fibrillation type: permanent Qualified Code(s): I48.21 - Permanent atrial fibrillation
--- NOTE | 2024-02-06 00:20 | XCELERA ---
[id number] \\[id number]
[2024-02-06 06:37] LABS: Hematocrit (blood only) 40.7 % (42.0-52.0); Hemoglobin 12.6 g/dl (14.0-18.0); Mean Corpuscular Hemoglobin 26.9 pg (25.0-34.0); Nucleated RBC # (auto) 0.45 K/uL (0.00-0.12); Nucleated RBC % (auto) 3.4 %; Platelet Count 193 K/uL (130-400); RDW Coefficient of Variation 19.7 % (11.5-14.5); RDW Standard Deviation 58.7 fL (36.4-46.3); Red Blood Count 4.68 M/uL (4.70-6.10)
[2024-02-06 06:41] LABS: Albumin Level 3.3 gm/dl (3.4-5.0); BUN Creatinine Ratio 27.1 (10-20); Calcium 9.7 mg/dl (8.6-10.3); Creatinine Clr Calc Pharmacy 28.6 ml/min; Phosphorus 3.9 mg/dl (2.5-4.9); Potassium 4.6 mmol/L (3.5-5.1)
--- NOTE | 2024-02-06 15:02 | Hospitalist Progress Note ---
Date of Service February 06, 2024 Assessment & Plan (1) Septic shock: Plan: Present on admission. Resolved with IV fluids and addition of scheduled midodrine. IV fluids have been discontinued. Treat underlying infectious process. Supportive care. Metoprolol succinate has been switched to metoprolol tartrate. (2) Bacteremia: Plan: Enterococcus faecalis isolated in blood cultures drawn January 26. Repeat blood cultures drawn on January 28 are negative to date. He is now on daptomycin. Appreciate infectious disease consultation and recommendations. Facial CT scan reveals 3 periapical abscesses. Patient had extraction of 4 infected teeth 02/03. These could certainly be the cause of the enterococcal bacteremia. TTE does not show any obvious aortic bioprosthetic valve vegetations. DIOGO negative as well. ID recommends daptomycin for 4 weeks. Patient will need a PICC line prior to discharge (3) Abnormal CT of the abdomen: Plan: Renal US reveals a benign-appearing right renal cyst. This can be followed further as an outpatient (4) Fall: Plan: Supportive care. OT and PT evaluations. Mechanical fall (5) Chronic renal insufficiency, stage IV (severe): Plan: Today patient has acute kidney injury on CKD stage IV He has a solitary kidney status post left nephrectomy due to renal cell carcinoma Mild DEONNA most likely due to overdiuresis. Discontinued IV Lasix Due to concern of a slight bump in creatinine, patient was given IV fluids prior to surgery. Patient is now off of fluids. Patient seems to have gained weight since admission Creatinine stable today at 2.5 Potassium 4.6 Resumed Bumex at 2 mg 02/04 (6) Atrial fibrillation: Plan: Chronic atrial fibrillation. Heart rate is controlled. Metoprolol has been restarted and succinate form switched to tartrate form. Xarelto resumed after OMFS cleared (7) Hypokalemia: Plan: Potassium corrected. Potassium is rather high today. Discontinue oral potassium twice daily dosing. Bumex was started back on (8) Hip pain, right: Plan: No injury. X-ray reveals mild degenerative changes. Pain resolved with parenteral steroid therapy which has been discontinued January 30 (9) Acute on chronic diastolic CHF (congestive heart failure): Plan: Due to IV fluid resuscitation. Most recent echo reveals preserved ejection fraction. Parenteral Lasix was ordered every 12 hours. Patient probably got slightly over diuresed with bumped creatinine due to dehydration. Lasix was held. Patient was given IV fluids. Now back on oral Bumex (10) Acute respiratory failure with hypoxia: Plan: Most likely from acute on chronic diastolic congestive heart failure Improved Oxygen per nasal cannula to maintain saturation greater than 90%. Wean off as tolerated. Saturating 98% on 2 L. Plan Patient will need rehab at discharge. Probably Thursday to . Admission and Anticipated Discharge Date Admission Date: January 27, 2024 Subjective Patient was seen and examined at 9:15 AM. He says that he feels well today. No chest pain or shortness of breath. No hiccups. Review of Systems Review of Systems: All systems reviewed & are unremarkable except as noted in Subjective Physical Exam Physical Exam: General: Awake, conversant Heart: S1, S2/regular rate and rhythm, no murmur rubs or gallops Lungs: Clear to auscultation bilaterally. Normal effort Abdomen: Soft/nontender/nondistended. No hepatosplenomegaly Extremities: No clubbing/cyanosis. 2+ pitting bilateral edema. Stockings on. Behavior: Appropriate, cooperative Results & Data Results & Data Vital Signs (Past 12 Hours) Vital Signs Temp Pulse Pulse Pulse Resp BP BP 02/06/24 13:57 121 H 02/06/24 11:20 36.5 C 94 H 19 94/65 L 02/06/24 08:45 90 02/06/24 07:15 36.5 C 91 H 19 107/75 02/06/24 07:01 02/06/24 03:31 36.4 C L 108 H 18 107/71 Pulse Ox O2 Del Method O2 Flow Rate 02/06/24 13:57 02/06/24 11:20 96 Nasal Cannula 3 02/06/24 08:45 02/06/24 07:15 98 Nasal Cannula 93 02/06/24 07:01 Nasal Cannula 2 02/06/24 03:31 95 CPAP Laboratory Results Abnormal lab results 02/06/24 Range/Units 05:32 WBC 13.20 H (4.8-10.8) K/ul RBC 4.68 L (4.70-6.10) M/uL Hgb 12.6 L (14.0-18.0) g/dl Hct 40.7 L (42.0-52.0) % MCHC 31.0 L (32.0-36.0) g/dL RDW Std Deviation 58.7 H (36.4-46.3) fL RDW Coeff of Sarah 19.7 H (11.5-14.5) % Absolute Nucleated RBC 0.45 H (0.00-0.12) K/uL BUN 67 H (6-23) mg/dl Creatinine 2.47 H (0.6-1.4) mg/dl BUN/Creatinine Ratio 27.1 H (10-20) Glucose 118 H (70-99(Fasting)) mg/dl Albumin 3.3 L (3.4-5.0) gm/dl PG Care Time/CCT Total # of Minutes Spent Total Time Spent with Patient: Total time spent is greater than 50% in coordination of care (as documented) at patient's floor/unit and/or counseling patient: Coding Level of Care Code 07505 SUB INP/OBS CARE 2/35MIN Diagnoses Septic shock A41.9; R65.[address] of the abdomen R93.5 Fall W19.XXXA Encounter type: initial encounter Chronic renal insufficiency, stage IV (severe) N18.4 Atrial fibrillation I48.21 Atrial fibrillation type: permanent Hypokalemia E87.6 Hip pain, right M25.551 Acute on chronic diastolic CHF (congestive heart failure) I50.33 Acute respiratory failure with hypoxia J96.01 (4) Fall Encounter type: initial encounter Qualified Code(s): W19.XXXA - Unspecified fall, initial encounter (6) Atrial fibrillation Atrial fibrillation type: permanent Qualified Code(s): I48.21 - Permanent atrial fibrillation
[2024-02-07 04:08] LABS: Hematocrit (blood only) 37.5 % (42.0-52.0); Hemoglobin 11.7 g/dl (14.0-18.0); Mean Corpuscular Hemoglobin 27.1 pg (25.0-34.0); Mean Corpuscular Hgb Conc 31.2 g/dL (32.0-36.0); Mean Corpuscular Volume 86.8 fL (80.0-100.0); Mean Platelet Volume 10.6 fL (9.4-12.4); Nucleated RBC # (auto) 0.16 K/uL (0.00-0.12); Nucleated RBC % (auto) 1.3 %; Platelet Count 149 K/uL (130-400); RDW Coefficient of Variation 19.5 % (11.5-14.5); RDW Standard Deviation 58.7 fL (36.4-46.3); Red Blood Count 4.32 M/uL (4.70-6.10); White Blood Count 12.45 K/ul (4.8-10.8)
[2024-02-07 09:32] LABS: Anion Gap 8 (3-11); BUN Creatinine Ratio 27.6 (10-20); Blood Urea Nitrogen 58 mg/dl (6-23); Calcium 9.5 mg/dl (8.6-10.3); Carbon Dioxide 26 mmol/L (21-32); Chloride 104 mmol/L (98-107); Creatinine Clr Calc Pharmacy 33.6 ml/min; Glucose 229 mg/dl (70-99(Fasting)); Sodium 138 mmol/L (136-145)
--- NOTE | 2024-02-07 09:52 | Discharge Summary ---
Date of Service February 07, 2024 Admission HPI Per Admitting Provider Kyler Antoine is an 83 year old male who presents to the ER following a fall out of bed around noon today. After falling out of bed he was unable to ambulate therefore was brought in by EMS. No dizziness, lightheadedness, chest pain or new shortness of breath prior to falling. He denies any new symptoms since last admission. He has chronic shortness of breath, cough and nasal congestion but this is not new. No fever or chills although notably his temperature was 39.6 degrees celsius in the ER. No urinary symptoms. No nausea, vomiting, abdominal pain or diarrhea. No neck pain. He had a mild headache which has now resolved with acetaminophen given in the ER. He notes his diuretics and metoprolol was increased last admission and but has not changed since then. In addition to today he fell last by sitting on the front edge of his walker and sliding backwards. He denies any symptoms prior to falling on this occasion in addition. Discharge Exam General: Awake, conversant Heart: S1, S2/regular rate and rhythm, no murmur rubs or gallops Lungs: Clear to auscultation bilaterally. Normal effort Abdomen: Soft/nontender/nondistended. No hepatosplenomegaly Extremities: No clubbing/cyanosis. 2+ pitting bilateral edema. Stockings on. Behavior: Appropriate, cooperative Discharge Data Allergies Allergy/AdvReac Type Severity Reaction Status Date / Time iron [From Venofer] AdvReac Mild Vomiting Verified 02/03/24 11:53 Iodinated Contrast Media AdvReac Unknown PT ONLY Verified 02/03/24 11:53 [Iodinated Contrast- Oral HAS 1 and IV Dye] KIDNEY, CONTRAINDICATED. Consultations 01/27/24 18:12 ED Decision to Admit Stat 01/28/24 10:52 Consult Infectious Diseases Routine 01/29/24 09:23 Consult Oromaxillofacial Surgery Routine 02/02/24 15:28 Consult Nephrology Routine 02/03/24 08:24 Consult Anesthesiology Routine Procedures Performed Operation Date: 02/05/24 07:15 Actual Procedures p Echo Color Flow - Taco Izquierdo MD s Doppler Echo Limited/Follow Up - Taco Izquierdo MD s Transesophageal Echo - Taco Izquierdo MD Ordered Studies 01/27/24 16:13 CT head/brain wo con Stat 01/27/24 16:44 CT abd pelvis wo con Stat 01/27/24 19:46 US Renal Bladder [US renal/blad retro comp] Routine 01/29/24 15:41 CT face [CT facial bones wo con] Routine Hospital Course (1) Septic shock: Present on admission. Resolved with IV fluids and addition of scheduled midodrine. IV fluids have been discontinued. Treat underlying infectious process. Supportive care. Metoprolol succinate has been switched to metoprolol tartrate. (2) Bacteremia: Enterococcus faecalis isolated in blood cultures drawn January 26. Repeat blood cultures drawn on January 28 are negative to date. He is now on daptomycin. Appreciate infectious disease consultation and recommendations. Facial CT scan reveals 3 periapical abscesses. Patient had extraction of 4 infected teeth 02/03. These could certainly be the cause of the enterococcal bacteremia. TTE does not show any obvious aortic bioprosthetic valve vegetations. DIOGO negative as well. ID recommends daptomycin for 4 weeks. Patient will need a PICC line prior to discharge (3) Abnormal CT of the abdomen: Renal US reveals a benign-appearing right renal cyst. This can be followed further as an outpatient (4) Fall: Supportive care. OT and PT evaluations. Mechanical fall (5) Chronic renal insufficiency, stage IV (severe): Today patient has acute kidney injury on CKD stage IV He has a solitary kidney status post left nephrectomy due to renal cell carcinoma Mild DEONNA most likely due to overdiuresis. Discontinued IV Lasix Due to concern of a slight bump in creatinine, patient was given IV fluids prior to surgery. Patient is now off of fluids. Patient seems to have gained weight since admission Creatinine stable today at 2.5 Potassium 4.6 Resumed Bumex at 2 mg 02/04 (6) Atrial fibrillation: Chronic atrial fibrillation. Heart rate is controlled. Metoprolol has been restarted and succinate form switched to tartrate form. Xarelto resumed after OMFS cleared (7) Hypokalemia: Potassium corrected. Potassium is rather high today. Discontinue oral potassium twice daily dosing. Bumex was started back on (8) Hip pain, right: No injury. X-ray reveals mild degenerative changes. Pain resolved with parenteral steroid therapy which has been discontinued January 30 (9) Acute on chronic diastolic CHF (congestive heart failure): Due to IV fluid resuscitation. Most recent echo reveals preserved ejection fraction. Parenteral Lasix was ordered every 12 hours. Patient probably got sl ightly over diuresed with bumped creatinine due to dehydration. Lasix was held. Patient was given IV fluids. Now back on oral Bumex (10) Acute respiratory failure with hypoxia: Most likely from acute on chronic diastolic congestive heart failure Improved Oxygen per nasal cannula to maintain saturation greater than 90%. Wean off as tolerated. Saturating 98% on 2 L. Plan Patient will need rehab at discharge. Probably Thursday to . Discharge Plan Discharge Items Reason For Visit: SEPSIS Condition on Discharge: Serious Follow-up/Referrals: Zackery Cochran, [Primary Care Provider] - Medications and DC Order Prescriptions: No Action cyanocobalamin (vitamin B-12) 1,000 mcg/mL solution 1,000 mcg IM Q90D Qty: 30 0RF metolazone 5 mg tablet 5 mg PO DAILY PRN (Reason: weight gain) Qty: 30 5RF rivaroxaban 15 mg tablet 15 mg PO HS Qty: 90 3RF calcitriol 0.25 mcg capsule 0.5 mcg PO QAM Qty: 180 3RF potassium chloride 10 mEq capsule, extended release 10 meq PO BID Qty: 180 1RF cyclobenzaprine 5 mg tablet 5 mg PO BID PRN (Reason: muscle pain/stiffness) Qty: 60 3RF allopurinol 100 mg tablet 100 mg PO QAM Qty: 90 3RF amoxicillin 500 mg tablet 2,000 mg PO DIRECTED PRN (Reason: 1 HOUR PRIOR TO DENTAL PROCEDURES) Patient Comments: 2,000 mg PO 1 hour prior to dental procedure.; Rx Instructions: TAKE 4 CAPSULES BY MOUTH 1 HOUR PRIOR TO DENTAL WORK (DME) Portable Oxygen Misc See Rx Instructions .Route Qty: 1 0RF Rx Instructions: As directed tramadol 50 mg tablet 50 mg PO BID PRN (Reason: Pain) Qty: 60 0RF docusate sodium 100 mg Capsule 100 mg PO QAM PRN (Reason: Constipation) magnesium 250 mg Tablet 250 mg PO HS cholecalciferol (vitamin D3) [Vitamin D3] 50 mcg (2,000 unit) Capsule 50 mcg PO DAILY bumetanide 2 mg tablet 3 mg PO QAM mupirocin 2 % ointment 1 applic topical TID PRN (Reason: irritation) tamoxifen 20 mg tablet 20 mg PO QAM metoprolol succinate 50 mg Tablet Extended Release 24 Hr 50 mg PO QAM Qty: 30 0RF metoprolol succinate 25 mg Tablet Extended Release 24 Hr 75 mg PO QPM Qty: 90 0RF Admission Data Admit Date/Time: 01/27/24 19:34 Attending Provider: Denia Norwood Admit Provider: Sushil Dallas Primary Care Provider: Zackery Cochran Other Providers: Sushil Dallas; Cheryl Linares; Sarahi Massey; Anita Lai; Willie Marshall; Yaneli Ennis; Beti Roy; Naveed Whitney; Alonso Boogie; Shital Wood; Lili Kern; Maddie Gandhi; Dorota Young; Zackery Espinoza; Brian Parada; Levi Garcia; Jared Boucher; Phyllis Boucher; Jasper Marsh; Una Rome; Scott Ellis; Thom Mosley; Kin Garcia; Cindy Harper; Andre Helm; Rose Helm; Abiodun Arteaga; Celena Howard; Kedar Martell; Dolores Syed; Mechelle Hendricks; Shravan Aleman; Nevin Medina A; Mikki Gutierrez; Angelica Tarango; Karissa Delgado; Jayce Delgado V; Sebas Mir; Lili Deal; Dariel Go; Livia Hughes; Jayce Estrada; Malik Harper; Berry Stephenson; Venecia San; Saadia Romero; Jayce Spann; Suresh Sheppard; Alie Snyder; Vargas Mata; Dolores Dunbar; Gayle Rushing; Hernandez Galdamez; Sumeet Milian; Chhaya York; Annie Schultz; Inocencio Colunga; Vu Baker; Taco Diehl; Zackery Centeno Jr; Irma Bellamy; Delmi Poon; Keysha Shelton; Shravan Mckinney; Jared Isabel; Elizabeth Rosas; Delmi Ro; Boy Lang; Khalif Simmons; Guicho Clark; Seun Sanford; David Suggs; Sara Vieira; Lidia Barksdale; Macrina Alegria; Kaylynn Huizar; Annamaria Casey; Bandar Callahan Jr; Mitzi Driscoll; Nevin Fregoso; Jose Kelsey
--- NOTE | 2024-02-07 15:07 | Hospitalist Progress Note ---
Date of Service February 07, 2024 Assessment & Plan (1) Septic shock: Plan: Present on admission. Resolved with IV fluids and addition of scheduled midodrine. IV fluids have been discontinued. Treat underlying infectious process. Supportive care. Metoprolol succinate has been switched to metoprolol tartrate. (2) Bacteremia: Plan: Enterococcus faecalis isolated in blood cultures drawn January 26. Repeat blood cultures drawn on January 28 are negative to date. He is now on daptomycin. Appreciate infectious disease consultation and recommendations. Facial CT scan reveals 3 periapical abscesses. Patient had extraction of 4 infected teeth 02/03. These could certainly be the cause of the enterococcal bacteremia. TTE does not show any obvious aortic bioprosthetic valve vegetations. DIOGO negative as well. ID recommends daptomycin for 4 weeks. PICC line ordered. Likely discharge 02/07 to encompass (3) Abnormal CT of the abdomen: Plan: Renal US reveals a benign-appearing right renal cyst. This can be followed further as an outpatient (4) Fall: Plan: Supportive care. OT and PT evaluations. Mechanical fall (5) Chronic renal insufficiency, stage IV (severe): Plan: Today patient has acute kidney injury on CKD stage IV He has a solitary kidney status post left nephrectomy due to renal cell carcinoma Mild DEONNA most likely due to overdiuresis. Discontinued IV Lasix Due to concern of a slight bump in creatinine, patient was given IV fluids prior to surgery. Patient is now off of fluids. Patient seems to have gained weight since admission Creatinine stable today Potassium stable Resumed Bumex at 2 mg 02/04 (6) Atrial fibrillation: Plan: Chronic atrial fibrillation. Heart rate is controlled. Metoprolol has been restarted and succinate form switched to tartrate form. Xarelto resumed after OMFS cleared (7) Hypokalemia: Plan: Potassium corrected. Potassium is rather high today. Discontinue oral potassium twice daily dosing. Bumex was started back on (8) Hip pain, right: Plan: No injury. X-ray reveals mild degenerative changes. Pain resolved with parenteral steroid therapy which has been discontinued January 30 (9) Acute on chronic diastolic CHF (congestive heart failure): Plan: Due to IV fluid resuscitation. Most recent echo reveals preserved ejection fr action. Parenteral Lasix was ordered every 12 hours. Patient probably got slightly over diuresed with bumped creatinine due to dehydration. Lasix was held. Patient was given IV fluids. Now back on oral Bumex (10) Acute respiratory failure with hypoxia: Plan: Most likely from acute on chronic diastolic congestive heart failure Improved Oxygen per nasal cannula to maintain saturation greater than 90%. Wean off as tolerated. Saturating 98% on 2 L. Plan PICC line ordered. Probably Thursday to . Admission and Anticipated Discharge Date Admission Date: January 27, 2024 Subjective Patient was seen and examined at 8:55 AM. He denied chest pain or shortness of breath. He feels well overall. He does not feel like he is fluid overloaded. Review of Systems Review of Systems: All systems reviewed & are unremarkable except as noted in Subjective Physical Exam Physical Exam: General: Awake, conversant Heart: S1, S2/regular rate and rhythm, no murmur rubs or gallops Lungs: Clear to auscultation bilaterally. Normal effort Abdomen: Soft/nontender/nondistended. No hepatosplenomegaly Extremities: No clubbing/cyanosis. 2+ pitting bilateral edema. Stockings on. Behavior: Appropriate, cooperative Results & Data Results & Data Vital Signs (Past 12 Hours) Vital Signs Temp Pulse Pulse Pulse Resp BP Pulse Ox 02/07/24 14:15 110 H 02/07/24 11:08 36.7 C 83 19 108/70 94 02/07/24 07:13 89 02/07/24 07:05 36.6 C 96 H 19 96/65 L 98 02/07/24 06:58 02/07/24 04:50 36.7 C 94 H 17 100/67 98 O2 Del Method O2 Flow Rate 02/07/24 14:15 02/07/24 11:08 Nasal Cannula 02/07/24 07:13 02/07/24 07:05 Nasal Cannula 3 02/07/24 06:58 Nasal Cannula 2 02/07/24 04:50 Nasal Cannula 3 Laboratory Results Abnormal lab results 02/07/24 02/07/24 Range/Units 03:46 09:02 WBC 12.45 H (4.8-10.8) K/ul RBC 4.32 L (4.70-6.10) M/uL Hgb 11.7 L (14.0-18.0) g/dl Hct 37.5 L (42.0-52.0) % MCHC 31.2 L (32.0-36.0) g/dL RDW Std Deviation 58.7 H (36.4-46.3) fL RDW Coeff of Asrah 19.5 H (11.5-14.5) % Absolute Nucleated RBC 0.16 H (0.00-0.12) K/uL BUN 58 H (6-23) mg/dl Creatinine 2.10 H D (0.6-1.4) mg/dl BUN/Creatinine Ratio 27.6 H (10-20) Glucose 229 H (70-99(Fasting)) mg/dl PG Care Time/CCT Total # of Minutes Spent Total Time Spent with Patient: Total time spent is greater than 50% in coordination of care (as documented) at patient's floor/unit and/or counseling patient: Coding Level of Care Code 99279 SUB INP/OBS CARE 2/35MIN Diagnoses Septic shock A41.9; R65.[address] of the abdomen R93.5 Fall W19.XXXA Encounter type: initial encounter Chronic renal insufficiency, stage IV (severe) N18.4 Atrial fibrillation I48.21 Atrial fibrillation type: permanent Hypokalemia E87.6 Hip pain, right M25.551 Acute on chronic diastolic CHF (congestive heart failure) I50.33 Acute respiratory failure with hypoxia J96.01 (4) Fall Encounter type: initial encounter Qualified Code(s): W19.XXXA - Unspecified fall, initial encounter (6) Atrial fibrillation Atrial fibrillation type: permanent Qualified Code(s): I48.21 - Permanent atrial fibrillation
[2024-02-07 23:22] VITALS: O2SAT 97
[2024-02-08 06:35] LABS: Hematocrit (blood only) 40.4 % (42.0-52.0); Hemoglobin 12.2 g/dl (14.0-18.0); Mean Corpuscular Hgb Conc 30.2 g/dL (32.0-36.0); Mean Corpuscular Volume 89.4 fL (80.0-100.0); Nucleated RBC # (auto) 0.04 K/uL (0.00-0.12); Nucleated RBC % (auto) 0.4 %; Platelet Count 145 K/uL (130-400); RDW Coefficient of Variation 19.4 % (11.5-14.5); Red Blood Count 4.52 M/uL (4.70-6.10); White Blood Count 10.57 K/ul (4.8-10.8)
[2024-02-08 06:51] LABS: BUN Creatinine Ratio 25.9 (10-20); Calcium 9.1 mg/dl (8.6-10.3); Creatinine Clr Calc Pharmacy 36.6 ml/min; Potassium 4.5 mmol/L (3.5-5.1)
[2024-02-08 07:20] VITALS: TEMP 97.7
--- NOTE | 2024-02-08 09:02 | XRay Report ---
XR chest 1V portable HISTORY: 83 years-old Male CHF, hypoxia acute shortness of breath with hypoxia COMPARISON: 01/31/2024 TECHNIQUE: AP view of the chest FINDINGS: Cardiac silhouette is enlarged. Median sternotomy with cardiac valvular prosthesis. Pulmonary vascula r congestion. Trace pleural effusions with mild bibasilar atelectasis. Atherosclerosis of the aorta. Bones appear grossly intact. IMPRESSION: 1. Cardiomegaly with pulmonary vascular congestion. 2. Trace pleural effusions with mild bibasilar atelectasis. ACT 112: Negative or not required by law. The above report was generated using voice recognition software. It may contain grammatical, syntax o r spelling errors. Electronically signed by: Pedro Pablo Goode M.D. 02/08/2024 9:00 AM
[2024-02-08 11:54] VITALS: RESP 18
--- NOTE | 2024-02-08 11:57 | Discharge Summary ---
Discharge Summary Date of Service February 08, 2024 Principal Dx & Hospital Course #1 = Principal Diagnosis (1) Septic shock: Present on admission. Resolved with IV fluids and addition of scheduled midodrine. IV fluids have been discontinued. Treat underlying infectious process. Supportive care. Metoprolol succinate has been switched to metoprolol tartrate. (2) Bacteremia: Enterococcus faecalis isolated in blood cultures drawn January 26. Repeat Jaime blood cultures drawn on January 28 are negative to date. He is now on daptomycin. Appreciate infectious disease consultation and recommendations. Facial CT scan reveals 3 periapical abscesses. Multiple teeth extracted by oral surgery on February 03. These could certainly be the cause of the enterococcal bacteremia. The infection could also possibly be from a skin infection. Cardiac echo does not show any obvious aortic bioprosthetic valve vegetations. (3) Abnormal CT of the abdomen: Renal US reveals a benign-appearing right renal cyst. This can be followed further as an outpatient (4) Fall: Supportive care. OT and PT evaluations. Mechanical fall (5) Chronic renal insufficiency, stage IV (severe): Monitor intake and output. Serial labs (6) Atrial fibrillation: Chronic atrial fibrillation. Heart rate is controlled. Metoprolol has been re started and succinate form switched to tartrate form. Continue Xarelto. Telemetry (7) Hypokalemia: Potassium corrected. Oral potassium decreased from 3 times daily dosing to twice daily dosing. Serial labs (8) Hip pain, right: No injury. X-ray reveals mild degenerative changes. Pain resolved with parenteral steroid therapy which has been discontinued today, January 30 (9) Acute on chronic diastolic CHF (congestive heart failure): Due to IV fluid resuscitation. Most recent echo reveals preserved ejection fraction. Treated while hospitalized with parenteral Lasix. Monitor intake and output. Serial chest x-ray (10) Acute respiratory failure with hypoxia: Oxygen per nasal cannula to maintain saturation greater than 90%. Wean off as tolerated. Treat underlying CHF Plan Discharge to [facility] today, February 07 Discharge Exam General-alert and oriented x3, low-grade fever. Denies rigors HEENT-head atraumatic and normocephalic, pupils equal and reactive to light, extraocular muscles intact Neck-no lymphadenopathy or thyromegaly, trachea midline Chest-diminished breath sounds at the bases with bilateral inspiratory rales. No wheezing. No rhonchii Cardiac-irregular rhythm. Controlled rate. Normal S1 and S2 Abdomen-normal bowel sounds, no hepatosplenomegaly Skinscattered excoriated appearing lesions on the abdomen Extremities-no cyanosis, clubbing. Mild bilateral lower extremity edema Neuro-cranial nerves II through XII intact, motor and sensory function within normal limits, strength symmetrical with generalized weakness, no focal deficits Psych-normal affect, normal mood Discharge Plan Discharge Items Patient Disposition: Transfer Inpatient Rehab Fac Reason For Visit: SEPSIS Discharge Diagnosis: Enterococcal bacteremia, sepsis, acute diastolic congestive heart failure, apical dental abscesses (multiple) chronic hypotension Condition on Discharge: Good Activity: Resume your previous activity Non-emergency contact: Primary Care Provider Call non-emergency contact if: your symptoms worsen Follow-up/Referrals: Zackery Cochran, [Primary Care Provider] - Diet: Regular and Heart Healthy Addtl Attending Provider Instructions: Continue intravenous daptomycin antibiotic for a total of 4 weeks Pending Studies at Discharge: No Stand-Alone Forms: My [facility] [address] Skilled Items Patient informed of condition?: Yes DNR: Yes Discharge Level of Care: Acute rehab Communicable Disease: No Discharge Prognosis: Stable Lines: PICC Urinary Catheter: No Medications and DC Order Prescriptions: New metoprolol tartrate 50 mg Tablet 50 mg PO BID Qty: 0 0RF docusate sodium 100 mg Capsule 100 mg PO DAILY PRN (Reason: constipation) Qty: 0 0RF midodrine 10 mg Tablet 10 mg PO TID@0800,1200,1700 Qty: 0 0RF daptomycin 500 mg recon soln 825 mg IV Q48H Rx Instructions: administer over 30 mins midodrine 10 mg Tablet 10 mg PO TID@0800,1200,1700 Qty: 0 0RF metoprolol tartrate 50 mg Tablet 50 mg PO BID Qty: 0 0RF daptomycin 500 mg recon soln 825 mg IV Q48H Rx Instructions: administer over 30 mins docusate sodium 100 mg Capsule 100 mg PO DAILY PRN (Reason: constipation) Qty: 0 0RF Continued cyanocobalamin (vitamin B-12) 1,000 mcg/mL solution 1,000 mcg IM Q90D Qty: 30 0RF metolazone 5 mg tablet 5 mg PO DAILY PRN (Reason: weight gain) Qty: 30 5RF rivaroxaban 15 mg tablet 15 mg PO HS Qty: 90 3RF calcitriol 0.25 mcg capsule 0.5 mcg PO QAM Qty: 180 3RF potassium chloride 10 mEq capsule, extended release 10 meq PO BID Qty: 180 1RF cyclobenzaprine 5 mg tablet 5 mg PO BID PRN (Reason: muscle pain/stiffness) Qty: 60 3RF allopurinol 100 mg tablet 100 mg PO QAM Qty: 90 3RF amoxicillin 500 mg tablet 2,000 mg PO DIRECTED PRN (Reason: 1 HOUR PRIOR TO DENTAL PROCEDURES) Patient Comments: 2,000 mg PO 1 hour prior to dental procedure.; Rx Instructions: TAKE 4 CAPSULES BY MOUTH 1 HOUR PRIOR TO DENTAL WORK (DME) Portable Oxygen Misc See Rx Instructions .Route Qty: 1 0RF Rx Instructions: As directed tramadol 50 mg tablet 50 mg PO BID PRN (Reason: Pain) Qty: 60 0RF docusate sodium 100 mg Capsule 100 mg PO QAM PRN (Reason: Constipation) magnesium 250 mg Tablet 250 mg PO HS cholecalciferol (vitamin D3) [Vitamin D3] 50 mcg (2,000 unit) Capsule 50 mcg PO DAILY bumetanide 2 mg tablet 3 mg PO QAM mupirocin 2 % ointment 1 applic topical TID PRN (Reason: irritation) tamoxifen 20 mg tablet 20 mg PO QAM metoprolol succinate 25 mg Tablet Extended Release 24 Hr 75 mg PO QPM Qty: 90 0RF Discontinued metoprolol succinate 50 mg Tablet Extended Release 24 Hr 50 mg PO QAM Qty: 30 0RF Discharge Orders: Discharge Order (Routine); Ordered 02/08/24 Ordered By: Glenn Rodriguez Admission Data Admit Date/Time: 01/27/24 19:34 Attending Provider: Glenn Rodriguez Admit Provider: Sushil Dallas Primary Care Provider: Zackery Cochran Other Providers: Sushil Dallas; Naveed Whitney; Tania Boogie; Shital Wood; Lili Kern; Maddie Gandhi; Dorota Young; Zackery Espinoza; Brian Parada; Levi Garcia; Jared Boucher; Phyllis Boucher; Jasper Marsh; Una Rome; Scott Ellis; Thom Mosley; Kin Garcia; Cindy Harper; Andre Helm; Rose Helm; Abiodun Arteaga; Celena Howard; Kedar Martell; Dolores Syed; Mechelle Hendricks; Shravan Aleman; Nevin Medina; Mikki Gutierrez; Angelica Tarango; Karissa Delgado; Jayce Delgado V; Sebas Mir; Lili Deal; Dariel Go; Livia Hughes; Jayce Estrada; Malik Harper; Berry Stephenson; Venecia San; Saadia Romero; Jayce Spann; Suresh Sheppard; Alie Snyder; Vargas Mata; Dolores Dunbar; Gayle Rushing; Hernandez Galdamez; Sumeet Milian; Jagruti York; Annie Schultz; Inocencio Colunga; Vu Baker; Taco Diehl; Zackery Centeno Jr; Irma Bellamy; Delmi Poon A.; Keysha Shelton; Shravan Mckinney; Jared Isabel; Elizabeth Rosas; Delmi Ro A.; Boy Lang; Khalif Simmons; Guicho Clark; Seun Sanford; David Suggs; Sara Vieira; Lidia Barksdale; Macrina Alegria; Kaylynn Huizar; Annamaria Casey; Bandar Callahan Jr; Mitzi Driscoll; Nevin Fregoso; Jose Kelsey Hospital Stay Data Consultations 01/27/24 18:12 ED Decision to Admit Stat 01/28/24 10:52 Consult Infectious Diseases Routine 01/29/24 09:23 Consult Oromaxillofacial Surgery Routine 02/02/24 15:28 Consult Nephrology Routine 02/03/24 08:24 Consult Anesthesiology Routine Procedures Performed Operation Date: 02/05/24 07:15 Actual Procedures p Echo Color Flow - Taco Izquierdo MD s Doppler Echo Limited/Follow Up - Taco Izquierdo MD s Echo Transesophageal - Taco Izquierdo MD Diagnostic Imagining Performed 01/27/24 16:13 CT head/brain wo con Stat 01/27/24 16:44 CT abd pelvis wo con Stat 01/27/24 19:46 US Renal Bladder [US renal/blad retro comp] Routine 01/29/24 15:41 CT face [CT facial bones wo con] Routine Pending Results Patient Have Any Pending Studies at Discharge: No Discharge Instructions Given to Patient (Per Discharging Provider) Continue intravenous daptomycin antibiotic for a total of 4 weeks Total Time Total Time Spent Total Time Spent (In Minutes): 50 minutes Coding Level of Care Code 06476 INP/OBS DISCH >30 MIN Diagnoses Septic shock A41.9; R65.[address] of the abdomen R93.5 Fall W19.XXXA Encounter type: initial encounter Chronic renal insufficiency, stage IV (severe) N18.4 Atrial fibrillation I48.21 Atrial fibrillation type: permanent Hypokalemia E87.6 Hip pain, right M25.551 Acute on chronic diastolic CHF (congestive heart failure) I50.33 Acute respiratory failure with hypoxia J96.01
[2024-02-08 12:08] VITALS: BP 108/70; PULSE 94
--- NOTE | 2024-02-10 21:42 | Operative Report ---
PG Post Operative Report Pre & Post Diagnosis Operation Date: 02/03/24 07:15 <No data on this case meets the specified criteria> I identified the patient and participated in the time-out.: Yes Procedure Extraction of teeth 3,4,5 and 21 in the OR with general anesthesia. I will plan for the procedure Nov or 6 based on OR availability. Surgeon Naveed Whitney DMD Electrical Accessories Assembler NONE Estimated Blood Loss 2 Findings Consistent with Post-Op Diagnosis Specimens none Drains none Anesthesia Type General Complications none Disposition Accompanied Patient To Recovery: Yes Indications necrotic teeth causing general sepsis Description of Procedure Actual Procedures Diagnoses Excessive attrition of teeth, extending into dentine K03.0 Chronic dental pain K08.9; G89.29 Dental infection K12.2 Necrotic teeth K04.1 Septic shock A41.9; R65.[address] of the abdomen R93.5 Fall W19.XXXA Encounter type: initial encounter Chronic renal insufficiency, stage IV (severe) N18.4 Atrial fibrillation I48.21 Atrial fibrillation type: permanent Hypokalemia E87.6 Hip pain, right M25.551 Acute on chronic diastolic CHF (congestive heart failure) I50.33 Acute respiratory failure with hypoxia J96.01 CPT codes D7210 x 4 for teeth 3,4,5,21 CPT 22934 p Incision and Drainage of right side maxillary vestibule abscess associated with teeth 3,4,5 and 21 ; Removal of Teeth, 3,4,5,and 21 (Not Applicable) - Naveed Whitney DMD Once cleared for surgery general anesthesia was achieved, the eyes were protected by the anesthesia dept criteria. A time out was take for patient ID, antibiotics, equipment and position verification once all agreed the procedure began. Local anesthesia using Marcaine with a vasoconstrictor ( 1.8 ml per site) given into left inferior alveolar nerve and upper right maxillary area. A throat pack was placed after the oral cavity was irrigated with saline. Once a surgical level of anesthesia was obtained and the local anesthesia was given time for the blocks the surgery was started. I turned my attention to the infection which was located in the mucobuccal fold and vestibule right side. Incision and Drainage CPT 28370 Using a 15 blade an incision was made lateral to in the swollen mucobuccal tissue. Once the incision was made a lot of pus extruded from the site. A curved hemostat was carefully placed into the infected space to drain all aspects of the infection. Some further drainage was now allowed to escape. I palpated the cheek and vestibular fold area and no further drainage was expressed. The area was irrigated with at least 100 ml of NS solution. I now turned my attention to remove the associated necrotic decayed teeth. Upper # 3,4,5 D7210 x 3 for teeth 3,4,5 The full thick Muco-periosteal flap was made around area # 2- 6. The flap was reflected to expose the bone adjacent to tooth # 3,4,5. The rongeur was used to remove bone, the 3 necrotic teeth were removed with a 301 elevator an dental forceps, there was a large amount of granulation tissue on the apex which was curetted clean. Surgicel and sutures were used to close the tissues, the I&D site was allowed to remain open for drainage. Lower # 21 This tooth had a failing root canal with radiolucency at the apex D7210 x 1 for tooth 21 The full thick Muco-periosteal flap was made on the facial aspect of # 21. The flap was reflected to expose the bone adjacent to # 21. The rongeur was used to remove bone, the tooth was removed with a 301 elevator an dental forceps, the mental nerve was intact, there was a large amount of granulation tissue on the apex which was curetted clean. I inspected the sites to insure all bleeding was controlled. I removed the throat pack and suctioned the throat. Bilateral gauze pressure dressings were placed. All instrument and sponge count was correct. The patient was allowed to awake from the anesthesia. Once full awake the anesthesia tube was removed and the patient was taken to the recovery room with all vital sign stable. The patient tolerated the surgery very well. We will restart the Xarelto Thursday AM I will follow the patient while in the hospital I attest to the content of the Intraoperative Record and any orders documented therein. Any exceptions are noted below.
== END 2024-02-08 13:55 | DRG 871 ==
LOC: ED 16:02 → 4W 19:34 → SUATTDRO 19:34 → 4W 22:19

== ENCOUNTER 2024-02-14 20:08 | Inpatient (IN) ==
--- OUTSIDE RECORDS SUMMARY | 2024-02-14 20:15 | External Medical Summary ---
Author Name Unknown Address Unknown Organization [id number]:[facility] [address] [place] [id number] Laboratory Report Ordering Provider Test Date Status BIPIN [place] 02/13/2024 06:51:52 Final Observation Date Value Abnormality Reference (Units ) Status WBC, Total 02/13/2024 06:51:52 10.99 Above high normal 4 .00-10.80 (K/uL) Final RBC 02/13/2024 06:51:52 4.36 4.50-5.25 (M/uL) Final Hemoglobin 02/13/2024 06:51:52 12.0 Below low normal 14 .0-16.8 (g/dL) Final HCT 02/13/2024 06:51:52 38.8 Below low normal 40. 0-48.4 (%) Final MCV 02/13/2024 06:51:52 89.0 82.0-99.5 (fL) Final MCH 02/13/2024 06:51:52 27.5 27.0-34.0 (pg) Final MCHC 02/13/2024 06:51:52 30.9 32.0-36.0 (g/dL) Final RDW 02/13/2024 06:51:52 19.3 11.5-15.5 (%) Final Platelets 02/13/2024 06:51:52 189 140-400 (K /uL) Final MPV 02/13/2024 06:51:52 11.5 6.6-11.1 ( fL) Final Performing Location [facility] [address] [place] [id number]
--- OUTSIDE RECORDS SUMMARY | 2024-02-14 20:15 | External Medical Summary ---
Author Name Unknown Address Unknown Organization [facility] [address] [place] [id number] Laboratory Report Ordering Provider Test Date Status BIPIN [place] 02/13/2024 06:51:52 Final Observation Date Value Abnormality Reference (Units ) Status BUN 02/13/2024 06:51:52 44 Above high normal 6-20 (mg/dL) Final Creatinine 02/13/2024 06:51:52 2.1 Above high normal 0.6-1.2 (mg/dL) Final Glomerular filtration rate/1.73 sq M.predicted [Volume Rate/Area] in Serum, Plasma or Blood by Creatinine-based formula (CKD-EPI) 02/13/2024 06:51:52 32 Below low normal >=60 (mL/min) Final eGFR is calculated based on the CKD-EPI 2020 equation. Sodium 02/13/2024 06:51:52 143 135-146 (m mol/L) Final Potassium 02/13/2024 06:51:52 3.6 3.5-5.1 (m mol/L) Final Cl 02/13/2024 06:51:52 100 98-107 (mm ol/L) Final CO2 02/13/2024 06:51:52 28 22-32 (mmo l/L) Final Anion gap 02/13/2024 06:51:52 15 7-15 (mmol /L) Final Glucose 02/13/2024 06:51:52 90 70-120 (mg /dL) Final Calcium 02/13/2024 06:51:52 9.8 8.4-10.2 ( mg/dL) Final Performing Location [facility] [address] [place] [id number]
[2024-02-14 20:42] LABS: Basophils # (auto) 0.04 K/uL (0.00-0.20); Basophils % (auto) 0.3 %; Eosinophils # (auto) 0.02 K/uL (0.00-0.50); Eosinophils % (auto) 0.2 %; Hematocrit (blood only) 36.5 % (42.0-52.0); Hemoglobin 11.2 g/dl (14.0-18.0); Immature Granulocytes # (auto) 0.05 K/uL (0.01-0.20); Immature Granulocytes % (auto) 0.4 %; Lymphocytes # (auto) 0.77 K/uL (1.20-3.40); Lymphocytes % (auto) 6.7 %; Mean Corpuscular Hemoglobin 26.5 pg (25.0-34.0); Mean Corpuscular Hgb Conc 30.7 g/dL (32.0-36.0); Mean Corpuscular Volume 86.5 fL (80.0-100.0); Mean Platelet Volume 10.2 fL (9.4-12.4); Monocytes # (auto) 0.58 K/uL (0.11-0.59); Neutrophils % (auto) 87.4 %; Platelet Count 192 K/uL (130-400); RDW Coefficient of Variation 18.6 % (11.5-14.5); Red Blood Count 4.22 M/uL (4.70-6.10); White Blood Count 11.56 K/ul (4.8-10.8)
[2024-02-14 20:59] LABS: Albumin Globulin Ratio 1.4 (0.9-2); Albumin Level 3.2 gm/dl (3.4-5.0); BUN Creatinine Ratio 20.8 (10-20); Bilirubin,Total 1.9 mg/dl (0.2-1.0); Creatinine Clr Calc Pharmacy 29.5 ml/min; Globulin 2.3 gm/dl (2.5-4.0); Potassium 3.1 mmol/L (3.5-5.1); Total Protein 5.5 gm/dl (6.0-8.3)
[2024-02-14 21:06] LABS: Troponin I High Sensitivity 38.6 pg/ml (0-20)
--- NOTE | 2024-02-14 21:41 | History & Physical Report ---
Date of Service February 14, 2024 Assessment & Plan (1) Chest pain: Plan: CP resolved with nitro x 2. Trop slightly elevated on admission. Trend to peak. EKG per my read with ST depressions in the anterior leads. Likely rate related, but did place cards consult. Electrolyte goal K 4 and Mg 2, replete as indicated. K 4.0, Mg 2.0 AM EKG, PRN EKG for CP No PRNs ordered - would assess patient prior to administration cards consult - appreciate recs trend trops and lytes (2) Permanent atrial fibrillation with RVR: Plan: Patient in permanent a fib - currently in RVR. Likely multifactorial with possible fluid status change, electrolyte imbalances, known mitral regurg, hypotension, and recent nitro administration. Patient had ECHO last admission. No indication to repeat at this time. Patient was to be switched to metoprolol tartrate 50 mg BID at time of discharge, but it is unclear if this happened. Patient without much BP room for rate control at present. Decreased dose of metoprolol. If rates continue to be uncontrolled with soft BPs would trial amiodarone gtt without bolus. Continue Xarelto. Optimize fluid status and lytes - K 4.0, Mg 2.0 Closely monitor BP and HR Restart metop tartrate 25 mg BID, hold SBP < 100 cards consult - appreciate recs (3) Acute on chronic diastolic CHF (congestive heart failure): Plan: Documented dry weight 225 pounds. Patient below this on admission. CXR with interval improvement in vascular congestion. Lungs relatively clear. Minimal to no increase in oxygen requirement. On 2L NC at baseline. BNP moderately elevated at 945, but he has been much higher in the past. As patient without respiratory symptoms I do think we have some room to hold on additional diuretics for now. There is definitely a component of venous stasis as well and Haider stockings have been restarted. If BPs tolerating will treat with Bumex 3mg po BID. Daily weights, Is and Os, low sodium diet Resume Bumex with hold precautions < 90 SBP - increase to 3mg po BID (4) Chronic kidney disease, stage 4 (severe): Plan: Creatinine relatively stable. There was concern that patient would need WAISTLINE JOINER OVERLOCK during last admission, but his creatinine did improve. Follows with nephrology. Patient with complex fluid status and difficulty maintaining euvolemia in setting of sepsis. He required multiple doses of IV diuretics and IVF during last admission. Could consider nephrology consult if indicated. (5) Complex sleep apnea syndrome: Plan: Per chart review on BiPAP. Ordered for while inpatient (6) Hypokalemia: Plan: Replete (7) Lower extremity edema: Plan: See above Plan Code status: full code DVT ppx: Xarelto FENGI: low sodium Dispo: PCU/tele History of Present Illness Chief Complaint: CP Primary Care Provider: Zackery Cochran, DO 83 y/o male with a PMHx of HFpEF, permanent a fib on Xarelto, chronic respiratory failure on 2L NC, FIFI on BiPAP, CKD4 - not on dialysis, and moderate to severe mitral regurg presents via ambulance with chest pain. Patient began experiencing chest pressure/pain. Substernal in nature without radiation to the jaw, neck, back, or arm lasting > 20 minutes. Patient was given nitro x 2 and ASA 324 mg chew en route to the hospital. Patient in a fib with RVR and hypotensive in the ED. Lopressor was ordered, but not given as BP low. Labs revealing slightly elevated troponin, electrolyte abnormalities, leukocytosis, elevated BNP, and anemia. Hospitalist team was consulted for admission. Recommended repleting lytes - given Mg x 2 bags, K x 3 bags. Upon my interview patient is feeling well. No more chest pain. No increased SOB or difficulty breathing. No fevers. Has felt cold. Patient reports feeling that his legs are swollen. Did have a new bubble in the skin develop over the last few days, but no new wounds. No blood in the urine or stool. No headache or vision changes. No nausea or vomiting. No change in bowel habits. No urinary symptoms. Patient reports his dry weight is 242 and that he's gained a lot of weight since leaving the hospital. Says he is peeing out multiple gallons a day. Weight today is around 200 pounds. Documented dry weight is 225. Allergies Allergy/AdvReac Type Severity Reaction Status Date / Time iron [From Venofer] AdvReac Mild Vomiting Verified 02/03/24 11:53 Iodinated Contrast Media AdvReac Unknown PT ONLY Verified 02/03/24 11:53 [Iodinated Contrast- Oral HAS 1 and IV Dye] KIDNEY, CONTRAINDICATED. Home Medications Medication Instructions Recorded Confirmed Type amoxicillin 500 mg tablet 2,000 mg PO DIRECTED PRN 1 HOUR 11/16/18 02/14/24 History PRIOR TO DENTAL PROCEDURES cholecalciferol (vitamin D3) 50 50 mcg PO DAILY 07/10/22 02/14/24 History mcg (2,000 unit) capsule (Vitamin D3) magnesium 250 mg tablet 250 mg PO HS 07/10/22 02/14/24 History cyanocobalamin (vitamin B-12) 1,000 mcg IM Q90D #30 mL 09/23/22 02/14/24 Rx 1,000 mcg/mL injection solution metolazone 5 mg tablet 5 mg PO DAILY PRN weight gain #30 10/23/22 02/14/24 Rx tabs rivaroxaban 15 mg tablet 15 mg PO HS #90 tabs 02/09/23 02/14/24 Rx Portable Oxygen #1 ea 05/25/23 02/14/24 Rx calcitriol 0.25 mcg capsule 0.5 mcg (2 x 0.25 mcg) PO QAM #180 08/11/23 02/14/24 Rx caps potassium chloride 10 mEq 10 meq PO BID #180 caps 09/29/23 02/14/24 Rx capsule,extended release cyclobenzaprine 5 mg tablet 5 mg PO BID PRN muscle 11/20/23 02/14/24 Rx pain/stiffness #60 tabs bumetanide 2 mg tablet 3 mg PO QAM 12/22/23 02/14/24 History mupirocin 2 % topical ointment 1 applic topical TID PRN irritation 12/22/23 02/14/24 History tamoxifen 20 mg tablet 20 mg PO QAM 12/22/23 02/14/24 History tramadol 50 mg tablet 50 mg PO BID PRN Pain #60 tabs 01/14/24 02/14/24 Rx allopurinol 100 mg tablet 100 mg PO QAM #90 tabs 01/22/24 02/14/24 Rx daptomycin 500 mg intravenous 825 mg IV Q48H 02/08/24 02/14/24 Rx solution docusate sodium 100 mg capsule 100 mg PO DAILY PRN constipation 02/08/24 02/14/24 Rx #0 caps metoprolol succinate 25 mg 75 mg (3 x 25 mg) PO QPM #90 tabs 02/08/24 02/14/24 Rx tablet,extended release 24 hr midodrine 10 mg tablet 10 mg PO TID@0800,1200,1700 #0 tabs 02/08/24 02/14/24 Rx Past Med/Surg History Problem List Congestive heart failure (Acute) Atrial fibrillation with RVR (Acute) Permanent atrial fibrillation with RVR Chest pain Acute respiratory failure with hypoxia (Acute) Acute on chronic diastolic CHF (congestive heart failure) Excessive attrition of teeth, extending into dentine Hip pain, right Hypokalemia Bacteremia Thrombocytopenia (Acute) Fall (Acute) Sepsis (Acute) Abnormal CT of the abdomen Sepsis Chronic anemia Iron deficiency Traumatic open wound of left lower leg with delayed healing (Acute) Lower extremity edema Decreased calculated glomerular filtration rate (GFR) Secondary hyperparathyroidism History of aortic valve disease s/p AVR (2006) History of renal cell carcinoma Hypokalemia Chronic venous insufficiency (Chronic) Traumatic open wound of right lower leg (Acute) Wound of right leg Class 3 severe obesity due to excess calories with body mass index (BMI) of 40.0 to 44.9 in adult Gynecomastia, male Family history of breast cancer gene mutation in first degree relative Hx of gynecomastia Left breast lump Nocturnal hypoxemia Complex sleep apnea syndrome Chronic kidney disease, stage 4 (severe) (Chronic) Hypertension (Chronic) Shortness of breath Acute diastolic (congestive) heart failure Hypermagnesemia Arm pain Hand numbness Foraminal stenosis of cervical region Vitamin D deficiency Anxiety (Acute) Venous insufficiency (chronic) (peripheral) Morbid obesity with BMI of 40.0-44.9, adult Gout Microcytic anemia Chronic low back pain with right-sided sciatica B12 deficiency Chronic diastolic CHF (congestive heart failure) (Chronic) Hyperlipidemia (Chronic) Medical History Chronic dental pain Hypotension Chronic renal insufficiency, stage IV (severe) Iron deficiency anemia Obstructive sleep apnea BIPAP Atrial fibrillation Diabetes mellitus Aspiration into respiratory tract Acute kidney injury superimposed on CKD Morbid obesity History of anxiety Hx of gout Hx of rotator cuff tear Difficulty with raising arms without extreme pain, currently in PT Hx of osteoarthritis Hx of impacted cerumen History of COVID-19 01/2021 > "mild" cold symptoms, resolved Prediabetes Kidney stones Hx x7 Renal cell adenocarcinoma s/p nephrectomy Chronic kidney disease, stage III (moderate) CKD (chronic kidney disease), stage III Surgical History H/O aortic valve replacement Hx of cardiac catheterization 11/2020 > no stents History of total bilateral knee replacement History of esophagogastroduodenoscopy (EGD) Hx of colonoscopy Hx of tonsillectomy Hx of cystoscopy w/stone basketing History of left nephrectomy History of spinal surgery Aortic valve replaced bioprosthesis, 2006 History of gastric bypass History of cholecystectomy Family History Mother Breast cancer Lung disease Grandmother (Maternal) Breast cancer Aunt Breast cancer Sister Breast cancer Father Myocardial infarction Arthritis Denies family history of Ovarian cancer Prostate cancer Colorectal cancer Social History Smoking Status: Never smoker Second Hand Exposure: No; Do You Dip or Chew Tobacco: No; Hx Alcohol Use: No Hx Substance Use: No Preferred Language: Tajik Communication Ability: Effective Visual Impairment: No Limitations Hearing Ability: Normal Lan Manager Required: No Beliefs That Will Affect Care: None marital status: Current Living Situation: Rehab Current Living Situation Comment: Lives w/ , son lives in basement current occupational status: retired 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[employer] Other Information That Helps Us Care for You: No Feels Safe at Home: Yes Safety Concerns: Feels Safe At This Time Childhood Exposure to Second-Hand Smoke: Yes Diet: regular caffeine: Yes Dental Care, Regularly: Yes Physical Activity Frequency: Does not Exercise Physical Activity Frequency Comment: Physical activity limited due to medical conditions Seatbelt Use: always Sunscreen Use: No Do you think of yourself as: straight/heterosexual Gender Identity: Male Assistive Devices: Cane, CPAP and Oxygen - Continuous Review of Systems 2 Review of Systems: See HPI Physical Exam 2 Physical Exam: Gen: chronically ill appearing patient in NAD HEENT: AT NC MMM Resp: CTAB no wheezing no increased work of breathing CV: irregularly irregular with elevated rate, no m/r/g appreciated, clinically well perfused Abd: soft, non-tender, +BS, non-distended MSK: no obvious deformities Skin: 2+ pitting edema bilaterally, chronic venous stasis changes and erythema, quarter sized bubble left salmeron, no significant warmth, no open wounds, no purulent drainage Neuro: alert and oriented Psych: appropriate mood and affect Results & Data Results & Data Vital Signs (Past 12 Hours) Vital Signs Temp Pulse Pulse Resp BP BP Pulse Ox 02/14/24 20:57 109 H 23 95/63 L 96 02/14/24 20:37 22 103/66 99 02/14/24 20:19 117 H 24 98 02/14/24 20:19 36.8 C 105 H 24 87/52 L 98 02/14/24 20:19 02/14/24 20:17 86 L O2 Del Method O2 Flow Rate 02/14/24 20:57 Nasal Cannula 3 02/14/24 20:37 Nasal Cannula 3 02/14/24 20:19 Nasal Cannula 3 02/14/24 20:19 Nasal Cannula 3 02/14/24 20:19 Nasal Cannula 3 02/14/24 20:17 Room Air Laboratory Results 02/14/24 20:21 02/14/24 20:21 Diagnostic Findings Chest X-Ray 02/14/24 20:19 FINDINGS: Lungs: Airspace opacity at the right base, atelectasis versus infiltrate. Pulmonary vascular prominence. No overt interstitial edema. Pleural space: No pleural effusion. No pneumothorax. Heart: Cardiomegaly. Cardiomegaly. Status post aortic valve replacement. Bones/joints: Status post median sternotomy. IMPRESSION: Airspace opacity at the right base, atelectasis versus infiltrate. Supervising Physician Co-Signing Physician Notes Patient seen and examined, chart reviewed, case discussed with Dr. Huggins and I agree with the assessment and plan as above. Patient recently admitted with Septic shock secondary to enterococcus bacteremia. He is presently on Daptomycin until 03/07. Patient presenting with chest discomfort, now resolved. Reports marked increase in his bilateral LE edema and reports he has gained a lot of weight (30#) since being discharged from the hospital. Patient presented in AF with RVR, borderline low BP. On exam - resting comfortably, NAD Skin - intact, no rash HEENT - MMM, neck supple, PERRL, No appreciable JVD Heart - +S1/S2, irregularly irregular and tachycardic, 3/6 MK across precordium Lungs - CTA, no rales/rhonchi/wheezes Abd- Soft, NT/ND Ext - warm, well perfused 3+ edema of bilateral LE edema to knees, some redness and warmth bilaterlly Labs and images reviewed Assessment/Plan Patient with chest pain, now resolved. Slight elevation of troponin -Trend troponin -Optimize electrolytes -Telemetry monitoring Daily weights and I/Os. Difficult to tell patients' fluid status. Lungs are clear, BNP is within patient's prior range. Question if his worsening bilateral LE edema is secondary to dependent edema - has been up walking more since discharge and has not been wearing his compression stockings. Unclear if he missed any of his Bumex doses. Dry weight per HF note goal is 225# with trigger weight of 228# per note in December 2023. Patient weighed in at 90.5kg in the ER but 112.5kg on the floor (247#) -Continue diuresis with Bumex - will increase to 3mg po BID -Monitor I/Os, daily weights and electrolytes -Remainder as above Resident Activity Tracking Resident Involvement: Resident Care Provided Care Provided: Adult [facility]
[2024-02-14 21:57] LABS: Magnesium 1.7 mg/dl (1.7-2.4)
[2024-02-14] MEDS: POTASSIUM CHLORIDE / WTR 10 MEQ/100 ML PLCT IV SCH (21:57)
[2024-02-14] MEDS: MAGNESIUM SULFATE / D5W 1 GM/100 ML BAG IV SCH (21:57)
[2024-02-14] MEDS: METOPROLOL TARTRATE 1 MG/ML VIAL IV STA (21:58)
--- NOTE | 2024-02-15 | XRay Report ---
Exam(s): XR CXR 1 VIEW EXAM: XR Chest, 1 View CLINICAL HISTORY: Reason for exam: Chest pain, nonspecific. TECHNIQUE: Frontal view of the chest. COMPARISON: Chest x-ray 02/08/2024 FINDINGS: Lungs: Airspace opacity at the right base, atelectasis versus infiltrate. Pulmonary vascular prominence. No overt interstitial edema. Pleural space: No pleural effusion. No pneumothorax. Heart: Cardiomegaly. Cardiomegaly. Status post aortic valve replacement. Bones/joints: Status post median sternotomy. IMPRESSION: Airspace opacity at the right base, atelectasis versus infiltrate. Electronically signed by: Ventura Schwarz MD 02/14/24 23:58 PM
[2024-02-15] MEDS ORDERED: ALUMINUM/MAGNESIUM SUSP 30 ML UDC PO PRN (00:26)
[2024-02-15] MEDS ORDERED: ONDANSETRON INJ 2 MG/ML 2 ML VIAL IV PRN (00:26)
[2024-02-15] MEDS ORDERED: MUPIROCIN 2% OINT 22 GM TUBE TOP PRN (00:26)
[2024-02-15] MEDS ORDERED: POLYETHYLENE (MIRALAX) 17 GM PACK PO PRN (00:26)
[2024-02-15] MEDS: RIVAROXABAN 15 MG TAB PO STA (00:58)
[2024-02-15] MEDS: MIDODRINE HCL 10 MG TAB PO STA (00:58)
--- NOTE | 2024-02-15 02:37 | Emergency Department Note ---
Impression & Plan Acute respiratory failure with hypoxia, Atrial fibrillation with RVR, Congestive heart failure ED Provider Note CHIEF COMPLAINT: Chest pain HISTORY OF PRESENT ILLNESS: This 83-year-old male past medical history of atrial fibrillation with RVR patient, congestive heart failure, thrombocytopenia, chronic anemia, chronic wound of the left lower extremity, aortic valve disease, hypertension, chronic kidney disease, presents to the emergency department with complaints of chest heaviness. Patient describes chest pain in the substernal region without radiation to the arms, back or jaw. He denies any recent fevers, cough, vomiting or diarrhea. Patient is currently staying at [facility] for rehabilitation. He was given nitroglycerin prior to transport. REVIEW OF SYSTEMS: A review of systems was performed with positives and pertinent negatives listed in the history of present illness. 10 systems were reviewed and are otherwise negative. ALLERGIES: see below MEDICATIONS: see below PMH: see below SOCIAL HISTORY: see below DDx: Acute coronary syndrome, cardiac arrhythmia, congestive heart failure, pneumonia, pneumothorax among others. PHYSICAL EXAM: Vital signs reviewed. Noted to be tachycardic and hypoxic on 2 L nasal cannula General: Chronically ill-appearing 83-year-old male, in no significant distress. HEENT: No scleral icterus, PERRLA, neck supple. Moist mucous membranes Cardiovascular: Irregular with systolic ejection murmur, Pulmonary: Clear to auscultation bilaterally, normal work of breathing. Abdomen: Soft, obese, nontender, nondistended, positive bowel sounds. Musculoskeletal: Atraumatic, 2-3+ peripheral edema. Neurologic: Patient awake alert and oriented x 3, speech is clear Skin: Warm, dry, no rash EMERGENCY DEPARTMENT COURSE/MDM: This patient was evaluated and appeared to be in no significant distress. IV access was obtained and laboratory work was drawn. The patient was placed on the quality assurance monitor final noted to be in a rapid atrial fibrillation. Chest x-ray was performed and reveals cardiomegaly with pulmonary vascular congestion. Patient is noted to be hypotensive periodically. I do not feel that he is having symptomatic pulmonary edema at this time. IV metoprolol was ordered for rate control however the patient's blood pressure dropped from 108 to around 90 systolic prior to the medication being administered. High-sensitivity troponin is 38.6. Case was discussed with the hospitalist service, Dr. Grossman who will evaluate the patient for admission and further management. The patient is aware of the plan and agrees. MONITORING: An order for cardiac monitoring was placed and the patient is noted to be in a atrial fibrillation with RVR at 115 beats per minute. RADIOLOGY: Chest x-ray to my interpretation reveals evidence of cardiomegaly and pulmonary vascular congestion, otherwise defer to radiology's over read. EKG: To my interpretation reveals atrial fibrillation with rapid ventricular response at 114 bpm. QTc of 391. Significant ST segment changes with T wave inversions in the anterior lateral leads. No significant change from previous dated 01/27/2024 DISPOSITION: Admission Past Med/Surg History Problem List (Updated 02/15/24 @ 02:49 by Karissa Smith MD) Congestive heart failure (Acute) Atrial fibrillation with RVR (Acute) Permanent atrial fibrillation with RVR Chest pain Acute respiratory failure with hypoxia (Acute) Acute on chronic diastolic CHF (congestive heart failure) Excessive attrition of teeth, extending into dentine Hip pain, right Hypokalemia Bacteremia Thrombocytopenia (Acute) Fall (Acute) Sepsis (Acute) Abnormal CT of the abdomen Sepsis Chronic anemia Iron deficiency Traumatic open wound of left lower leg with delayed healing (Acute) Lower extremity edema Decreased calculated glomerular filtration rate (GFR) Secondary hyperparathyroidism History of aortic valve disease s/p AVR (2007) History of renal cell carcinoma Hypokalemia Chronic venous insufficiency (Chronic) Traumatic open wound of right lower leg (Acute) Wound of right leg Class 3 severe obesity due to excess calories with body mass index (BMI) of 40.0 to 44.9 in adult Gynecomastia, male Family history of breast cancer gene mutation in first degree relative Hx of gynecomastia Left breast lump Nocturnal hypoxemia Complex sleep apnea syndrome Chronic kidney disease, stage 4 (severe) (Chronic) Hypertension (Chronic) Shortness of breath Acute diastolic (congestive) heart failure Hypermagnesemia Arm pain Hand numbness Foraminal stenosis of cervical region Vitamin D deficiency Anxiety (Acute) Venous insufficiency (chronic) (peripheral) Morbid obesity with BMI of 40.0-44.9, adult Gout Microcytic anemia Chronic low back pain with right-sided sciatica B12 deficiency Chronic diastolic CHF (congestive heart failure) (Chronic) Hyperlipidemia (Chronic) Medical History Chronic dental pain Hypotension Chronic renal insufficiency, stage IV (severe) Iron deficiency anemia Obstructive sleep apnea BIPAP Atrial fibrillation Diabetes mellitus Aspiration into respiratory tract Acute kidney injury superimposed on CKD Morbid obesity History of anxiety Hx of gout Hx of rotator cuff tear Difficulty with raising arms without extreme pain, currently in PT Hx of osteoarthritis Hx of impacted cerumen History of COVID-19 01/2021 > "mild" cold symptoms, resolved Prediabetes Kidney stones Hx x7 Renal cell adenocarcinoma s/p nephrectomy Chronic kidney disease, stage III (moderate) CKD (chronic kidney disease), stage III Surgical History H/O aortic valve replacement Hx of cardiac catheterization 11/2020 > no stents History of total bilateral knee replacement History of esophagogastroduodenoscopy (EGD) Hx of colonoscopy Hx of tonsillectomy Hx of cystoscopy w/stone basketing History of left nephrectomy History of spinal surgery Aortic valve replaced bioprosthesis, 2006 History of gastric bypass History of cholecystectomy Family History Mother Breast cancer Lung disease Grandmother (Maternal) Breast cancer Aunt Breast cancer Sister Breast cancer Father Myocardial infarction Arthritis Denies family history of Ovarian cancer Prostate cancer Colorectal cancer Social History Smoking Status: Never smoker Second Hand Exposure: No; Do You Dip or Chew Tobacco: No; Hx Alcohol Use: No Hx Substance Use: No Preferred Language: Greenlandic Communication Ability: Effective Visual Impairment: No Limitations Hearing Ability: Normal Bulb Grower Required: No Beliefs That Will Affect Care: None marital status: Current Living Situation: Rehab Current Living Situation Comment: Lives w/ , son lives in basement current occupational status: retired 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[employer] Other Information That Helps Us Care for You: No Feels Safe at Home: Yes Safety Concerns: Feels Safe At This Time Childhood Exposure to Second-Hand Smoke: Yes Diet: regular caffeine: Yes Dental Care, Regularly: Yes Physical Activity Frequency: Does not Exercise Physical Activity Frequency Comment: Physical activity limited due to medical conditions Seatbelt Use: always Sunscreen Use: No Do you think of yourself as: straight/heterosexual Gender Identity: Male Assistive Devices: Cane, CPAP and Oxygen - Continuous Allergies Allergies Allergy/AdvReac Type Severity Reaction Status Date / Time iron [From Venofer] AdvReac Mild Vomiting Verified 02/03/24 11:53 Iodinated Contrast Media AdvReac Unknown PT ONLY Verified 02/03/24 11:53 [Iodinated Contrast- Oral HAS 1 and IV Dye] KIDNEY, CONTRAINDICATED. Home Meds Home Medications Medication Instructions Recorded Confirmed amoxicillin 500 mg tablet 2,000 mg PO DIRECTED PRN 1 HOUR 11/16/18 02/14/24 PRIOR TO DENTAL PROCEDURES cholecalciferol (vitamin D3) 50 50 mcg PO DAILY 07/10/22 02/14/24 mcg (2,000 unit) capsule (Vitamin D3) magnesium 250 mg tablet 250 mg PO HS 07/10/22 02/14/24 bumetanide 2 mg tablet 3 mg PO QAM 12/22/23 02/14/24 mupirocin 2 % topical ointment 1 applic topical TID PRN irritation 12/22/23 02/14/24 tamoxifen 20 mg tablet 20 mg PO QAM 12/22/23 02/14/24 Previous Rx's Medication Instructions Recorded cyanocobalamin (vitamin B-12) 1,000 mcg IM Q90D #30 mL 09/23/22 1,000 mcg/mL injection solution metolazone 5 mg tablet 5 mg PO DAILY PRN weight gain #30 10/23/22 tabs rivaroxaban 15 mg tablet 15 mg PO HS #90 tabs 02/09/23 Portable Oxygen #1 ea 05/25/23 calcitriol 0.25 mcg capsule 0.5 mcg (2 x 0.25 mcg) PO QAM #180 08/11/23 caps potassium chloride 10 mEq 10 meq PO BID #180 caps 09/29/23 capsule,extended release cyclobenzaprine 5 mg tablet 5 mg PO BID PRN muscle 11/20/23 pain/stiffness #60 tabs tramadol 50 mg tablet 50 mg PO BID PRN Pain #60 tabs 01/14/24 allopurinol 100 mg tablet 100 mg PO QAM #90 tabs 01/22/24 daptomycin 500 mg intravenous 825 mg IV Q48H 02/08/24 solution docusate sodium 100 mg capsule 100 mg PO DAILY PRN constipation 02/08/24 #0 caps metoprolol succinate 25 mg 75 mg (3 x 25 mg) PO QPM #90 tabs 02/08/24 tablet,extended release 24 hr midodrine 10 mg tablet 10 mg PO TID@0800,1200,1700 #0 tabs 02/08/24 Results & Data (ED) Vital Signs Vital Signs - 24 hr 02/14/24 20:17 02/14/24 20:19 02/14/24 20:19 Temperature 36.8 C Temperature Source Oral Pulse Rate 105 H Pulse Rate [Apical] Pulse Rate from SpO2 Sensor Pulse Rhythm Irregular Pulse Rhythm [Apical] Respiratory Rate 24 Respiratory Effort / Characteristics Short of Breath Short of Breath Respiratory Pattern Blood Pressure 87/52 L Blood Pressure [Right Arm] Blood Pressure Mean 63 Blood Pressure Mean [Right Arm] Blood Pressure Position [Right Arm] Pulse Oximetry 86 L 98 Oxygen Delivery Method Room Air Nasal Cannula Nasal Cannula Oxygen Flow Rate 3 3 Sepsis Recent Fever Within 48 Hours No Sepsis New/Unexplained Change in Mental Status No Sepsis Action Taken by Nursing No Action Required Oxygen Flow Rate - Titration 3 Pulse Oximetry Post Tiitration 98 02/14/24 20:19 02/14/24 20:37 02/14/24 20:57 Temperature Temperature Source Pulse Rate 117 H Pulse Rate [Apical] 109 H Pulse Rate from SpO2 Sensor Pulse Rhythm Irregular Pulse Rhythm [Apical] Irregular Irregular Respiratory Rate 24 22 23 Respiratory Effort / Characteristics Short of Breath SOB on Exertion Respiratory Pattern Regular Blood Pressure Blood Pressure [Right Arm] 103/66 95/63 L Blood Pressure Mean Blood Pressure Mean [Right Arm] 78 73 Blood Pressure Position [Right Arm] Pulse Oximetry 98 99 96 Oxygen Delivery Method Nasal Cannula Nasal Cannula Nasal Cannula Oxygen Flow Rate 3 3 3 Sepsis Recent Fever Within 48 Hours Sepsis New/Unexplained Change in Mental Status Sepsis Action Taken by Nursing Oxygen Flow Rate - Titration Pulse Oximetry Post Tiitration 02/14/24 21:02 02/14/24 21:06 02/14/24 21:30 Temperature Temperature Source Pulse Rate 105 H 115 H 103 H Pulse Rate [Apical] Pulse Rate from SpO2 Sensor Pulse Rhythm Pulse Rhythm [Apical] Respiratory Rate 24 24 24 Respiratory Effort / Characteristics Respiratory Pattern Blood Pressure 87/57 L 88/47 L 95/72 L Blood Pressure [Right Arm] Blood Pressure Mean 67 61 81 Blood Pressure Mean [Right Arm] Blood Pressure Position [Right Arm] Pulse Oximetry 97 97 99 Oxygen Delivery Method Oxygen Flow Rate Sepsis Recent Fever Within 48 Hours Sepsis New/Unexplained Change in Mental Status Sepsis Action Taken by Nursing Oxygen Flow Rate - Titration Pulse Oximetry Post Tiitration 02/14/24 21:52 02/14/24 21:58 11/17/24 22:00 Temperature Temperature Source Pulse Rate 116 H 112 H Pulse Rate [Apical] 115 H Pulse Rate from SpO2 Sensor Pulse Rhythm Pulse Rhythm [Apical] Irregular Respiratory Rate 22 Respiratory Effort / Characteristics SOB on Exertion Respiratory Pattern Blood Pressure 98/63 L Blood Pressure [Right Arm] 92/69 L Blood Pressure Mean Blood Pressure Mean [Right Arm] 76 Blood Pressure Position [Right Arm] Lying Pulse Oximetry 95 Oxygen Delivery Method Nasal Cannula Oxygen Flow Rate 3 Sepsis Recent Fever Within 48 Hours Sepsis New/Unexplained Change in Mental Status Sepsis Action Taken by Nursing Oxygen Flow Rate - Titration Pulse Oximetry Post Tiitration 02/14/24 22:30 02/14/24 22:45 Temperature Temperature Source Pulse Rate 124 H 118 H Pulse Rate [Apical] Pulse Rate from SpO2 Sensor 112 H Pulse Rhythm Pulse Rhythm [Apical] Respiratory Rate 24 21 Respiratory Effort / Characteristics Respiratory Pattern Blood Pressure 99/57 L Blood Pressure [Right Arm] Blood Pressure Mean 81 Blood Pressure Mean [Right Arm] Blood Pressure Position [Right Arm] Pulse Oximetry 97 98 Oxygen Delivery Method Oxygen Flow Rate Sepsis Recent Fever Within 48 Hours Sepsis New/Unexplained Change in Mental Status Sepsis Action Taken by Nursing Oxygen Flow Rate - Titration Pulse Oximetry Post Tiitration Home Medications Current Medication List: was personally reviewed by me Laboratory Data Attestation: I reviewed the patient's lab results. 02/14/24 20:21 02/14/24 20:21 Lab Results 02/14/24 Range/Units 20:21 WBC 11.56 H (4.8-10.8) K/ul RBC 4.22 L (4.70-6.10) M/uL Hgb 11.2 L (14.0-18.0) g/dl Hct 36.5 L (42.0-52.0) % MCV 86.5 (80.0-100.0) fL MCH 26.5 (25.0-34.0) pg MCHC 30.7 L (32.0-36.0) g/dL RDW Std Deviation 57.0 H (36.4-46.3) fL RDW Coeff of Sarah 18.6 H (11.5-14.5) % Plt Count 192 (130-400) K/uL MPV 10.2 (9.4-12.4) fL Immature Gran % (Auto) 0.4 % Neut % (Auto) 87.4 % Lymph % (Auto) 6.7 % [place] % (Auto) 5.0 % Eos % (Auto) 0.2 % Baso % (Auto) 0.3 % Neut # (Auto) 10.10 H (1.40-6.50) K/uL Lymph # (Auto) 0.77 L (1.20-3.40) K/uL [place] # (Auto) 0.58 (0.11-0.59) K/uL Eos # (Auto) 0.02 (0.00-0.50) K/uL Baso # (Auto) 0.04 (0.00-0.20) K/uL Immature Gran # (Auto) 0.05 (0.01-0.20) K/uL Sodium 139 (136-145) mmol/L Potassium 3.1 L (3.5-5.1) mmol/L Chloride 96 L (98-107) mmol/L Carbon Dioxide 33 H (21-32) mmol/L Anion Gap 10 (3-11) BUN 43 H (6-23) mg/dl Creatinine 2.07 H (0.6-1.4) mg/dl Est Cr Clr Drug Dosing 29.5 ml/min eGFR 31.58 BUN/Creatinine Ratio 20.8 H (10-20) Glucose 109 H (70-99(Fasting)) mg/dl Calcium 10.0 (8.6-10.3) mg/dl Magnesium 1.7 (1.7-2.4) mg/dl Total Bilirubin 1.9 H (0.2-1.0) mg/dl AST 31 (13-39) U/L ALT 19 (7-52) U/L Alkaline Phosphatase 66 (34-104) U/L Troponin I High Sens 38.6 H (0-20) pg/ml B-Natriuretic Peptide 945 H (0-100) pg/ml Total Protein 5.5 L (6.0-8.3) gm/dl Albumin 3.2 L (3.4-5.0) gm/dl Globulin 2.3 L (2.5-4.0) gm/dl Albumin/Globulin Ratio 1.4 (0.9-2) Lipase 37 (11-82) U/L Administered Medications Discontinued Medications Potassium Chloride (K Jimi / Wtr) 10 meq in 100 mls @ 100 mls/hr IV Q1H BEHZAD; Protocol Stop: 02/15/24 00:44 Last Infusion: 02/15/24 02:20 Dose: Infused Documented By: Admin: 02/15/24 01:14 Dose: 100 mls/hr Documented By: Infusion: 02/15/24 00:47 Dose: Infused Documented By: Admin: 02/14/24 23:20 Dose: 100 mls/hr Documented By: Infusion: 02/14/24 23:18 Dose: Infused Documented By: Admin: 02/14/24 21:57 Dose: 100 mls/hr Documented By: TONIO Magnesium Sulfate/Dextrose (Magnesium Sulfate / D5w) 1 gm in 100 mls @ 200 mls/hr IV Q30M BEHZAD Stop: 02/14/24 22:39 Last Infusion: 02/14/24 23:18 Dose: Infused Documented By: Admin: 02/14/24 22:46 Dose: 200 mls/hr Documented By: Infusion: 02/14/24 22:27 Dose: Infused Documented By: Admin: 02/14/24 21:57 Dose: 200 mls/hr Documented By: TONIO Metoprolol Tartrate (Metoprolol Tartrate 1 Mg/Ml Vial) 5 mg IV NOW STA Stop: 02/14/24 20:47 Last Admin: 02/14/24 21:58 Dose: Not Given Documented By: TONIO Midodrine (Midodrine Hcl 10 Mg Tab) 10 mg PO ONE STA Stop: 02/14/24 23:14 Last Admin: 02/15/24 00:58 Dose: 10 mg Documented By: LAWSON Rivaroxaban (Rivaroxaban 15 Mg Tab) 15 mg PO ONE STA Stop: 02/14/24 23:15 Last Admin: 02/15/24 00:58 Dose: 15 mg Documented By: LAWSON Imaging Data Radiologist's Impression: Chest X-Ray 02/14/24 20:19 Exam(s): XR CXR 1 VIEW EXAM: XR Chest, 1 View CLINICAL HISTORY: Reason for exam: Chest pain, nonspecific. TECHNIQUE: Frontal view of the chest. COMPARISON: Chest x-ray 02/08/2024 FINDINGS: Lungs: Airspace opacity at the right base, atelectasis versus infiltrate. Pulmonary vascular prominence. No overt interstitial edema. Pleural space: No pleural effusion. No pneumothorax. Heart: Cardiomegaly. Cardiomegaly. Status post aortic valve replacement. Bones/joints: Status post median sternotomy. IMPRESSION: Airspace opacity at the right base, atelectasis versus infiltrate. Electronically signed by: Ventura Schwarz MD 02/14/24 23:58 PM Discharge Plan Visit Data Chief Complaint: Chest Pain Stated Complaint: Chest Pain ED Provider: Karissa Smith Discharge Problem: Acute respiratory failure with hypoxia, Atrial fibrillation with RVR, Congestive heart failure Patient Disposition: Admitted As Inpatient Discharge Instructions Interventions: ED Discharge Assessment Last Done: 02/14/24 23:35 Discharge Problem: Congestive heart failure Qualifiers: Heart failure type: unspecified Heart failure chronicity: acute on chronic Q ualified Code(s): I50.9 - Heart failure, unspecified
--- NOTE | 2024-02-15 02:49 | Billing Data ---
Date of Service February 14, 2024 Coding Level of Care Code 07157 INT INP/OBS CARE
--- NOTE | 2024-02-15 07:08 | Hospitalist Progress Note ---
Date of Service February 15, 2024 Assessment & Plan (1) Chest pain: Plan: CP resolved with nitro x 2 and aspirin. Trop slightly elevated on admission at 38.6. Trend to peak. EKG per my read with ST depressions in the leads 3, 4, 5, 6. Likely related to afib increasing HR. Electrolyte goal K 4 and Mg 2, replete as indicated Continue acetaminophen 650 mg Q4H Trend troponin and electrolytes Cards consult pending recs (2) Permanent atrial fibrillation with RVR: Plan: Patient in permanent a fib - currently in RVR. Likely multifactorial - recent hospitalization, electrolyte imbalances, known mitral regurg, hypotension, and recent nitro administration. Cardiology reports mitral regurg. ECHO 02/05 showed mild LVH with EF - 55%-60%. Patient was to be switched to metoprolol tartrate 50 mg BID at time of discharge, but it is unclear if this happened. Patient without much BP room for rate control at present. Decreased dose of metoprolol. If rates continue to be uncontrolled with soft BPs would trial amiodarone gtt without bolus. Continue rivaroxaban 15 mg. Continue acetaminophen 650 mg Q4H Optimize fluid status and electrolytes - K 4.0, Mg 2.0 Start diltiazem drip Closely monitor BP and HR Continue metoprolol tartrate 25 mg BID, hold if SBP < 100 Cards consult pending recs (3) Acute on chronic diastolic CHF (congestive heart failure): Plan: Documented dry weight 225 pounds. Patient below this on admission with weight of 199 lb (90.5 kg). Unsure of accuracy of weight since he has fluctuated up to 260 lb (118 kg). CXR shows interval improvement for vascular congestion -- his lungs are relatively clear with some infiltrate or atelectasis at bilateral bases. Minimal increase in oxygen requirement. On 2L NC at baseline, currently 3L NC with O2 sats >95%. BNP moderately elevated at 945, but he has been much higher past admissions. There is definitely a component of venous stasis -- red and swollen legs with pitting edema bilaterally. Start compression stockings Daily weights, Is and Os, low sodium diet, fluid restriction Continue Bumex with hold precautions < 90 SBP Patient to start compression stockings (4) Chronic kidney disease, stage 4 (severe): Plan: Creatinine relatively stable with 2.03 being most recent creatinine. 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 Follows with nephrology. Patient with complex fluid status and dif ficulty maintaining euvolemia in setting of sepsis. He required multiple doses of IV diuretics and IVF during last admission. I do think he is close to euvolemic. Could consider nephrology consult if indicated. (5) Complex sleep apnea syndrome: Plan: Patient's will bring home BIPAP for use in hospital. (6) Hypokalemia: Plan: Replete (7) Lower extremity edema: Plan: See above Plan Code status: full code DVT ppx: Raquel WALKER: low sodium, fluid restrict 1500 mg/day Dispo: PCU/tele Admission and Anticipated Discharge Date Admission Date: February 14, 2024 Annie Antoine is a 83 yo male with a past medical history of aortic valve replacement, HFpEF (02/05 echo EF - 55-60%), cardiac cath without stenting, CKD stage III, renal cell carcinoma with nephrectomy, permanent atrial fibrillation, and on 2L NC baseline who presented to the hospital on 02/13 for chest tightness. Patient was at [facility] following a 12 day hospital stay for sepsis with enterococcus culture. He felt immense chest squeezing and tightness at 7 PM yesterday with no radiation to the arms. He rated the pain 5/10. This was not associated with activity, and the patient reported walking for hours earlier in the day. There was an EKG done at this time with V3, V4, V5, V6 leads with ST depression. Prior EKGs looked similar. After ambulance was called an hour later, he was given 4 aspirin and 2 doses of nitroglycerin, which relieved the pressure. He's had no prior history of these symptoms. In the hospital, patient reported no current chest pain nor shortness of breath past baseline. He is being diuresed and is going to the bathroom frequently with his walker. Bowel movement yesterday, typically every other day. Appetite is small but similar to appetite at home. Slept well yesterday night. He has a slight sore throat today. Review of Systems Review of Systems: Constitutional: no fever, has chills with shakes that are uncontrollable at times to the point where he falls. HEENT: denies congestion. Has sore throat starting yesterday. Cardio: denies chest pain, palpitations. Reports edema in legs. Resp: denies cough, has baseline SOB and is on oxygen at home. GI: denies abdominal pain, nausea, vomiting, constipation, diarrhea. Usually has bowel movements every other day. : denies pain with urination. Has trouble starting urination and stopping urination when it happens. Neuro: denies new numbness, tingling, weakness Physical Exam Physical Exam: General:Alert and oriented x3, no acute distress. Some forgetting of words in the middle of conversation but will remember after. HEENT: Normocephalic, moist oral mucosa, Cardio: Tachycardic, irregular rhythm. Scar above sternum. Resp:Lungs clear to auscultation b/l, no wheezes or rhonchi. Some cough after taking a deep breath. GI: Soft, bowel sounds active. Pt reported some pain upon palpation lower left abd. No guarding. R sided scar over a foot in length around gallbladder area. Skin: Circular ulcerations ~5 mm across abd, arms. Patient reported ulcerations on his back. Psych: Mood-affect congruence. Extremities: 1+/2+ pitting edema in legs below the knee. Diffuse pink/redness, some warmth in legs. Large 2 inch blister on R heel. Results & Data Results & Data Vital Signs (Past 12 Hours) Vital Signs Temp Pulse Pulse Resp BP BP Pulse Ox 02/15/24 03:13 36.8 C 112 H 18 95/61 L 96 02/15/24 01:00 117 H 02/15/24 01:00 02/15/24 00:16 36.8 C 122 H 18 126/84 94 02/14/24 23:35 36.9 C 110 H 22 100/69 98 02/14/24 23:30 100/69 02/14/24 23:27 119 H 25 H 98 02/14/24 23:00 118 H 25 H 93/55 L 98 02/14/24 22:45 118 H 21 98 02/14/24 22:30 124 H 24 99/57 L 97 02/14/24 22:00 115 H 22 92/69 L 95 02/14/24 21:58 112 H 98/63 L 02/14/24 21:52 116 H 02/14/24 21:30 103 H 24 95/72 L 99 02/14/24 21:06 115 H 24 88/47 L 97 02/14/24 21:02 105 H 24 87/57 L 97 02/14/24 20:57 109 H 23 95/63 L 96 02/14/24 20:37 22 103/66 99 02/14/24 20:19 117 H 24 98 02/14/24 20:19 36.8 C 105 H 24 87/52 L 98 02/14/24 20:19 02/14/24 20:17 86 L O2 Del Method O2 Flow Rate 02/15/24 03:13 Nasal Cannula 3 02/15/24 01:00 02/15/24 01:00 Nasal Cannula 3 02/15/24 00:16 Nasal Cannula 3 02/14/24 23:35 Nasal Cannula 3 02/14/24 23:30 02/14/24 23:27 02/14/24 23:00 02/14/24 22:45 02/14/24 22:30 02/14/24 22:00 Nasal Cannula 3 02/14/24 21:58 02/14/24 21:52 02/14/24 21:30 02/14/24 21:06 02/14/24 21:02 02/14/24 20:57 Nasal Cannula 3 02/14/24 20:37 Nasal Cannula 3 02/14/24 20:19 Nasal Cannula 3 02/14/24 20:19 Nasal Cannula 3 02/14/24 20:19 Nasal Cannula 3 02/14/24 20:17 Room Air Resident Activity Tracking Resident Involvement: Resident Care Provided Care Provided: Adult Hospital Medicine Resident Supervision Co-Signing Physician Notes I have personally evaluated this pt along with student Dr. Frances and agree with exceptions noted below: Afib with RVR - noted to have afib with RVR on admission requiring IV medication to lower rate - trop 38 -> 44 -> 44 - with lowered rate, chest pain resolved and with unimpressive troponin and no ST elevation on EKG suspect initial chest pain may have been from cardiac demand from RVR - will start diltiazem drip today for continued elevated rate - cardiology consulted and pending recs CHF - restarted bumex 3mg BID Fever - recent hospitalization for dental infection with sepsis and enterococcus bacteremia, admitted on continued daptomycin - did spike a fever x 1 today - will continue to monitor I personally examined the patient and verified all jeronimo points of history and exam, discussed case, and agree with decision making with Dr Snowden and Nita Frances MS2 very tired, but no further CP. vitals noted nad heent nc at mmm breathing unlabored no accessory muscles good effort no focal neuro deficits afib/RVR -CP due to rate -improved now that rates better -add diltiazem enterococcus bacteremia -no true fever now -continue daptomycin -follow clinically acute on chronic HFpEF -failure due to rate -improved now that rates better -follow clinically otherwise as above
[2024-02-15 07:22] LABS: Albumin Globulin Ratio 1.2 (0.9-2); Albumin Level 2.9 gm/dl (3.4-5.0); BUN Creatinine Ratio 21.7 (10-20); Bilirubin,Total 1.8 mg/dl (0.2-1.0); Calcium 9.6 mg/dl (8.6-10.3); Creatinine Clr Calc Pharmacy 33.8 ml/min; Globulin 2.5 gm/dl (2.5-4.0); Potassium 3.1 mmol/L (3.5-5.1); Total Protein 5.4 gm/dl (6.0-8.3)
[2024-02-15 07:24] LABS: Hematocrit (blood only) 33.9 % (42.0-52.0); Hemoglobin 10.6 g/dl (14.0-18.0); Mean Corpuscular Hemoglobin 26.8 pg (25.0-34.0); Mean Corpuscular Hgb Conc 31.3 g/dL (32.0-36.0); Mean Corpuscular Volume 85.8 fL (80.0-100.0); Mean Platelet Volume 10.6 fL (9.4-12.4); Platelet Count 160 K/uL (130-400); RDW Coefficient of Variation 18.4 % (11.5-14.5); RDW Standard Deviation 56.9 fL (36.4-46.3); Red Blood Count 3.95 M/uL (4.70-6.10); White Blood Count 8.27 K/ul (4.8-10.8)
[2024-02-15] MEDS: MIDODRINE HCL 10 MG TAB PO SCH (08:00)
[2024-02-15] MEDS: CALCITRIOL 0.25 MCG CAPSULE PO SCH (08:44)
[2024-02-15] MEDS: BUMETANIDE 1 MG TAB PO SCH (08:45)
[2024-02-15] MEDS: allopurinoL 100 MG TAB PO SCH (08:47)
[2024-02-15] MEDS: METOPROLOL TARTRATE 25 MG TAB PO SCH ×2 (08:47→20:42)
[2024-02-15] MEDS ORDERED: BUMETANIDE 1 MG TAB PO SCH (09:00)
[2024-02-15] MEDS: TAMOXIFEN CITRATE 10 MG TABLET PO SCH (10:20)
[2024-02-15] MEDS: CYCLOBENZAPRINE HCL 10 MG TAB PO PRN (11:40)
[2024-02-15] MEDS: DOCUSATE SODIUM 100 MG CAP PO PRN (11:45)
[2024-02-15] MEDS: traMADol HCL 50 MG TABLET PO PRN (13:45)
[2024-02-15] MEDS ORDERED: STAT IV Infusion **Titration per Protocol STA (15:39)
[2024-02-15] MEDS: dilTIAZem HCL 125 MG in DEXTROSE 5% 100 ML IV SCH (16:29)
--- NOTE | 2024-02-15 18:06 | Billing Data ---
Date of Service February 15, 2024 Coding Level of Care Code 69073 SUB INP/OBS CARE MIN
[2024-02-15] MEDS: ACETAMINOPHEN 325 MG TAB PO PRN (18:15)
--- NOTE | 2024-02-15 18:48 | Electrocardiogram Report ---
Test Reason : Blood Pressure : */* mmHG Vent. Rate : 114 BPM Atrial Rate : * BPM P-R Int : * ms QRS Dur : 86 ms QT Int : 344 ms P-R-T Axes : * 83 235 degrees QTcB Int : 474 ms Poor data quality, interpretation may be adversely affected Atrial fibrillation with rapid ventricular response Abnormal ECG When compared with ECG of 31-Jan-2024 02:23, T wave inversion more evident in Anterior leads T wave inversion now evident in Inferior leads Confirmed by Mckay Elliott ([id number]) on 02/15/2024 6:47:50 PM Referred By: [facility] Confirmed By: Mckay Elliott
--- NOTE | 2024-02-15 18:48 | Electrocardiogram Report ---
Test Reason : Blood Pressure : */* mmHG Vent. Rate : 114 BPM Atrial Rate : 113 BPM P-R Int : * ms QRS Dur : 96 ms QT Int : 344 ms P-R-T Axes : * 80 214 degrees QTcB Int : 474 ms Atrial fibrillation with rapid ventricular response Abnormal ECG When compared with ECG of 14-Feb-2024 20:15, No significant change was found Confirmed by Mckay Elliott ([id number]) on 02/15/2024 6:48:10 PM Referred By: [facility] Confirmed By: Mckay Elliott
[2024-02-15] MEDS: POTASSIUM CHLORIDE CRTAB 20 MEQ TABCR PO SCH (20:42)
[2024-02-15] MEDS: RIVAROXABAN 15 MG TAB PO SCH (21:40)
--- NOTE | 2024-02-15 23:14 | Cardiology Consultation ---
Date of Consultation February 15, 2024 Assessment & Plan (1) Chest pain: clean coronaries on prior cath 11/2020. Previously thought GI 2. HFpEF- mild LE congestion on exam 3. Permanent atrial fibrillation persistent. DCCV 12/2021. No change in symptoms. On anticoagulation 5. Moderate to severe mitral regurgitation -- partial flail, ruptured chordae on DIOGO 01/2024 5. Bioprosthetic AVR Stabel Mildly elevated transvalvular gradients 6. CKD-- post nephrectomy, baseline SCr ~3.0 7. Iron deficiency anemia 8. Pulm hypertensionmildly dilated RV/RV dysfunction 9. Class III obesity post gastric bypass, FIFI on CPAP 10. CVI with prior venous ulcers 11. VRE/enterococcus bacteremia, Sepsis--?oral source; on daptomycin Readmitted with 1 hour of acute onset chest pain. Chest pain-free since. Flat HS TropI. Anterolateral ST depression stable from 11/2023. Permanent AF with RVR not far off recent baseline. Mild lower extremity edema but otherwise minimal congestion on exam and weight stable. Low suspicion chest pain secondary to AF with RVR or acute HF. Low suspicion for ACS but has not had repeat ischemic evaluation for [address] changes new from cath at that time. Recent DIOGO noted moderate to severe MR with partial flail. We have discussed possible cardiac surgery referral when infectious issues resolved. Would need repeat cath as part of that evaluation. Will tentatively plan on repeat cardiac catheterization tomorrow Continue rate control, okay with heart rates in 110s to 120s at rest. Would titrate up metoprolol (previously 50 a.m./75 pm) as BP allows. Okay to discontinue diltiazem Okay with twice daily Bumex today. Possibly transition back to maintenance 3 mg daily tomorrow Hold a.m. Xarelto On long-term antibiotics for bacteremia. Okay to continue midodrine Will follow History of Present Illness Attending Physician: Jerrell Douglas, History of Present Illness Mr. Antoine is a very pleasant 83-year-old man well known to me from the outpatient setting and prior hospitalizations readmitted yesterday with chest pain. 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 Has had multiple recent hospitalizations: 12/05-12/10 due to heart failure, and [facility]ON[facility]. Responded to twice daily Bumex 3 mg and recorded weights down 20lbs, SCr 3.7 --> 3.0. 12/21 - 12/27 4 acute heart failure, A-fib with RVR and episode of chest pain which was thought GI in nature. Regional improved with diuresis, increase metoprolol to 50/75 mg. 01/26 - 02/07 for septic shock in the setting of VRE bacteremia thought secondary to oral abscesses, requiring multiple teeth extraction. Discharged to [facility] on 4 weeks of daptomycin. During that hospitalization had DIOGO which was negative vegetations potential moderate to severe MR with chordal rupture and partial flail Return yesterday when developed acute onset substernal chest pain after eating. Pain nonradiating, no palpitations, presyncope. Mild nausea. Lasted for approximately 1 hour until in the ED and nitro x 2. ECG showed A-fib with RVR and ST depressions in anterior leads (similar to prior ECG). HS TropI flat 38- 44. Chest x-ray without significant edema. Allergies Allergy/AdvReac Type Severity Reaction Status Date / Time iron [From Venofer] AdvReac Mild Vomiting Verified 02/03/24 11:53 Iodinated Contrast Media AdvReac Unknown PT ONLY Verified 02/03/24 11:53 [Iodinated Contrast- Oral HAS 1 and IV Dye] KIDNEY, CONTRAINDICATED. Home Medications Medication Instructions Recorded Confirmed Type amoxicillin 500 mg tablet 2,000 mg PO DIRECTED PRN 1 HOUR 11/16/18 02/14/24 History PRIOR TO DENTAL PROCEDURES cholecalciferol (vitamin D3) 50 50 mcg PO DAILY 07/10/22 02/14/24 History mcg (2,000 unit) capsule (Vitamin D3) magnesium 250 mg tablet 250 mg PO HS 07/10/22 02/14/24 History cyanocobalamin (vitamin B-12) 1,000 mcg IM Q90D #30 mL 09/23/22 02/14/24 Rx 1,000 mcg/mL injection solution metolazone 5 mg tablet 5 mg PO DAILY PRN weight gain #30 10/23/22 02/14/24 Rx tabs rivaroxaban 15 mg tablet 15 mg PO HS #90 tabs 02/09/23 02/14/24 Rx Portable Oxygen #1 ea 05/25/23 02/14/24 Rx calcitriol 0.25 mcg capsule 0.5 mcg (2 x 0.25 mcg) PO QAM #180 08/11/23 02/14/24 Rx caps potassium chloride 10 mEq 10 meq PO BID #180 caps 09/29/23 02/14/24 Rx capsule,extended release cyclobenzaprine 5 mg tablet 5 mg PO BID PRN muscle 11/20/23 02/14/24 Rx pain/stiffness #60 tabs bumetanide 2 mg tablet 3 mg PO QAM 12/22/23 02/14/24 History mupirocin 2 % topical ointment 1 applic topical TID PRN irritation 12/22/23 02/14/24 History tamoxifen 20 mg tablet 20 mg PO QAM 12/22/23 02/14/24 History tramadol 50 mg tablet 50 mg PO BID PRN Pain #60 tabs 01/14/24 02/14/24 Rx allopurinol 100 mg tablet 100 mg PO QAM #90 tabs 01/22/24 02/14/24 Rx daptomycin 500 mg intravenous 825 mg IV Q48H 02/08/24 02/14/24 Rx solution docusate sodium 100 mg capsule 100 mg PO DAILY PRN constipation 02/08/24 02/14/24 Rx #0 caps metoprolol succinate 25 mg 75 mg (3 x 25 mg) PO QPM #90 tabs 02/08/24 02/14/24 Rx tablet,extended release 24 hr midodrine 10 mg tablet 10 mg PO TID@0800,1200,1700 #0 tabs 02/08/24 02/14/24 Rx Patient History Medical History Chronic dental pain Hypotension Chronic renal insufficiency, stage IV (severe) Iron deficiency anemia Obstructive sleep apnea BIPAP Atrial fibrillation Diabetes mellitus Aspiration into respiratory tract Acute kidney injury superimposed on CKD Morbid obesity History of anxiety Hx of gout Hx of rotator cuff tear Difficulty with raising arms without extreme pain, currently in PT Hx of osteoarthritis Hx of impacted cerumen History of COVID-19 01/2021 > "mild" cold symptoms, resolved Prediabetes Kidney stones Hx x7 Renal cell adenocarcinoma s/p nephrectomy Chronic kidney disease, stage III (moderate) CKD (chronic kidney disease), stage III Surgical History H/O aortic valve replacement Hx of cardiac catheterization 11/2020 > no stents History of total bilateral knee replacement History of esophagogastroduodenoscopy (EGD) Hx of colonoscopy Hx of tonsillectomy Hx of cystoscopy w/stone basketing History of left nephrectomy History of spinal surgery Aortic valve replaced bioprosthesis, 2006 History of gastric bypass History of cholecystectomy Family History Mother Breast cancer Lung disease Grandmother (Maternal) Breast cancer Aunt Breast cancer Sister Breast cancer Father Myocardial infarction Arthritis Denies family history of Ovarian cancer Prostate cancer Colorectal cancer Social History Smoking Status: Never smoker Second Hand Exposure: No; Do You Dip or Chew Tobacco: No; Hx Alcohol Use: No Hx Substance Use: No Preferred Language: Guatemalan Communication Ability: Effective Visual Impairment: No Limitations Hearing Ability: Normal Pump Servicer Helper Required: No Beliefs That Will Affect Care: None marital status: Current Living Situation: Rehab Current Living Situation Comment: Lives w/ , son lives in basement current occupational status: retired 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[employer] Other Information That Helps Us Care for You: No Feels Safe at Home: Yes Safety Concerns: Feels Safe At This Time Childhood Exposure to Second-Hand Smoke: Yes Diet: regular caffeine: Yes Dental Care, Regularly: Yes Physical Activity Frequency: Does not Exercise Physical Activity Frequency Comment: Physical activity limited due to medical conditions Seatbelt Use: always Sunscreen Use: No Do you think of yourself as: straight/heterosexual Gender Identity: Male Assistive Devices: Walker Review of Systems Review of Systems: All systems reviewed & are unremarkable except as noted in HPI & below Physical Exam Physical Exam: General: Looks tired but no distress HEENT: Sclerae anicteric Lungs: Lungs clear bilaterally Cardiac: Tachycardic irregularly irregular, crisp bioprosthetic closure, 1/6 Systolic ejection murmur. 2/6 holosystolic murmur at LLSB, apex Vascular: 1+ radial pulses bilaterally Abdomen: Soft, nontender, obese Extremities: Well perfused, 1-2+ lower extremity edema to upper shins Neuro: Nonfocal Psych: Alert orient x3, normal affect and mood Results & Data Vital Signs (Past 12 Hours) Vital Signs Temp Pulse Resp BP Pulse Ox O2 Del Method O2 Flow Rate 02/15/24 22:41 99.5 F 115 H 18 100/67 94 BiPAP 02/15/24 21:40 98.6 F 111 H 18 99/63 L 96 Nasal Cannula 3 02/15/24 20:38 100.4 F H 116 H 18 111/62 93 Nasal Cannula 3 02/15/24 19:37 99.5 F 124 H 18 96/67 L 96 Nasal Cannula 3 02/15/24 15:18 99.0 F 120 H 22 99/58 L 98 Nasal Cannula 3 02/15/24 11:38 99.9 F H 142 H 22 113/66 93 Nasal Cannula 3 PG Care Time/CCT Total # of Minutes Spent Total Time Spent with Patient: Total time spent is greater than 50% in coordination of care (as documented) at patient's floor/unit and/or counseling patient: Coding Level of Care Code 57643 INT INP/OBS CARE 2/55MIN Diagnoses Chest pain R07.9
--- NOTE | 2024-02-16 06:46 | Hospitalist Progress Note ---
Date of Service February 16, 2024 Assessment & Plan (1) Chest pain: Plan: CP resolved with nitro x 2 and aspirin. Trop slightly elevated on admission at 38.6. Trend to peak. EKG per my read with ST depressions in the anterior leads. Likely related to afib increasing HR. Electrolyte goal K 4 and Mg 2, replenish as needed Continue acetaminophen Trend troponin and electrolytes (2) Permanent atrial fibrillation with RVR: Plan: Patient in permanent a fib with RVR. Likely multifactorial - recent hospitalization, electrolyte imbalances, known mitral regurg, hypotension, and recent nitro administration. Cardiology reports mitral regurg - to discuss valve replacement once patient is out of the hospital and stable. ECHO 02/05 showed mild LVH with EF - 55%-60%. Blood pressure in hospital is around 100/60-70s. HR is settling around 120s. Closely monitor BP and HR Continue dapto from prior hospitalization Optimize fluid status and electrolytes - K 4.0, Mg 2.0 Appreciate cards recs : Patient to get cath today - held Xalerto in the morning HR of 110s to 120s is acceptable Discontinue diltiazem Increase metoprolol to 25 mg QID, as BP allows with MAP > 65 Continue midodrine 10 mg TID (3) Acute on chronic diastolic CHF (congestive heart failure): Plan: Documented dry weight 225 pounds. Patient below this on admission with weight of 199 lb (90.5 kg). Unsure of accuracy of weight since he has fluctuated up to 260 lb (118 kg). Back to his 2L NC at baseline. Edema in legs is improved since yesterday 2+ -> 1+, less redness. Patient is able to bend ankle better. Daily weights, Is and Os, low sodium diet Decrease Bumex to maintenance 3 mg daily Continue compression stockings (4) Chronic kidney disease, stage 4 (severe): Plan: Creatinine stable with 1.98 being most recent creatinine. He follows with nephrology. Continue replenishing electrolytes without overloading with volume. (5) Complex sleep apnea syndrome: Plan: brought his BIPAP yesterday, used it last night and slept well 11 pm - 7 am. (6) Hypokalemia: Plan: Patient refused PO potassium (7) Lower extremity edema: Plan: Improved since yesterday, see above. Plan Code status: full code DVT ppx: Raquel WALKER: low sodium, fluid restrict Dispo: PCU/tele Admission and Anticipated Discharge Date Admission Date: February 14, 2024 Annie Antoine is a 83 yo male with a past medical history of aortic valve replacement, HFpEF (02/05 echo EF - 55-60%), cardiac cath without stenting, CKD stage III, renal cell carcinoma with nephrectomy, permanent atrial fibrillation, and on 2L NC baseline who presented to the hospital on 02/13 for chest tightness. Today, patient has no recurrence of chest pain nor shortness of breath. He is being diuresed and is going to the bathroom frequently with his walker. No bowel movement today, last was 2 days ago. Appetite is small but similar to appetite at home. Slept well yesterday night, got BIPAP machine from his . Sore throat, coughing, green plegm production as well as blowing nose. No fever or chills. Review of Systems Review of Systems: Constitutional: denies fever, chills HEENT: denies congestion. Some sore throat since yesterday, phlegm production Cardio: denies chest pain, palpitations Resp: denies shortness of breath, cough GI: denies abdominal pain, nausea, vomiting, constipation, diarrhea : denies pain with urination, change in urinary frequency Neuro: denies new numbness, tingling, weakness Physical Exam Physical Exam: General:Alert and oriented, no acute distress. Some forgetting of words in the middle of conversation but will remember after. HEENT: Normocephalic Cardio: Tachycardic, irregular rhythm. Scar above sternum. Resp:Lungs clear to auscultation b/l, no wheezes or rhonchi. Skin: Circular ulcerations ~5 mm across abd, arms. Patient reported ulcerations on his back. Psych: Mood-affect congruence. Extremities: 1+ pitting edema in legs below the knee, compression socks being worn. Some warmth in lower legs. Large 2 inch blister on R heel. Less redness compared to yesterday Results & Data Results & Data Vital Signs (Past 12 Hours) Vital Signs Temp Pulse Pulse Resp BP Pulse Ox O2 Del Method 02/16/24 02:26 36.4 C L 118 H 16 101/68 93 CPAP 02/15/24 22:41 37.5 C 115 H 18 100/67 94 BiPAP 02/15/24 22:00 84 02/15/24 22:00 Room Air, BiPAP 02/15/24 21:40 37 C 111 H 18 99/63 L 96 Nasal Cannula 02/15/24 20:38 38 C H 116 H 18 111/62 93 Nasal Cannula 02/15/24 19:37 37.5 C 124 H 18 96/67 L 96 Nasal Cannula O2 Flow Rate 02/16/24 02:26 02/15/24 22:41 02/15/24 22:00 02/15/24 22:00 2 02/15/24 21:40 3 02/15/24 20:38 3 02/15/24 19:37 3 Resident Activity Tracking Resident Involvement: Resident Care Provided Care Provided: Adult Hospital Medicine Resident Supervision Co-Signing Physician Notes I have independently evaluated this patient and agree with student Dr Frances with exceptions noted below: Afib with RVR - noted to have afib with RVR on admission requiring IV medication to lower rate - trop 38 -> 44 -> 44, EKG without ST elevation - goal HR 110-120s per cardiology - cards evaluated and to have cath today CHF - restarted bumex 3mg BID but may decrease to daily today per cards Fever - recent hospitalization for dental infection with sepsis and enterococcus bacteremia, admitted on continued daptomycin - did spike a fever x 2 yesterday but no fever today - will continue to monitor I personally examined the patient and verified all jeronimo points of history and exam, discussed case, and agree with decision making with Dr Snowden and Nita parmar MS2 feeling better appreciate cardiology assistance vitals noted nad heent nc at mmm breathing unlabored no accessory muscles good effort skin no rashes no pallor or icterus neuro no focal deficits afib/RVR - asymptomatic - titrate metoprolol, follow MR/flail leaflet - for [facility] today as part of preop assessment chronic HFpEF/mild acute on chronic HFpEF - seems to be compensated now. continue to follow enterococcus bacteremia - appears improved. finish previously started course of daptomycin
[2024-02-16 07:54] LABS: Hematocrit (blood only) 34.9 % (42.0-52.0); Hemoglobin 10.6 g/dl (14.0-18.0); Mean Corpuscular Hemoglobin 26.6 pg (25.0-34.0); Mean Corpuscular Hgb Conc 30.4 g/dL (32.0-36.0); Mean Corpuscular Volume 87.5 fL (80.0-100.0); Mean Platelet Volume 10.7 fL (9.4-12.4); Platelet Count 143 K/uL (130-400); RDW Coefficient of Variation 18.6 % (11.5-14.5); RDW Standard Deviation 57.9 fL (36.4-46.3); Red Blood Count 3.99 M/uL (4.70-6.10); White Blood Count 7.87 K/ul (4.8-10.8)
[2024-02-16 08:14] LABS: BUN Creatinine Ratio 19.7 (10-20); Calcium 9.4 mg/dl (8.6-10.3); Creatinine Clr Calc Pharmacy 34.2 ml/min; Potassium 2.7 mmol/L (3.5-5.1)
[2024-02-16] MEDS: POTASSIUM CHLORIDE / WTR 10 MEQ/100 ML PLCT IV SCH (09:28)
[2024-02-16] MEDS: DAPTOmycin 825 MG in SYRINGE 0 ML IV SCH (09:31)
[2024-02-16] MEDS: MICONAZOLE NITRATE POWDER 85 GM EXT PRN (10:29)
--- NOTE | 2024-02-16 12:34 | Billing Data ---
Date of Service February 16, 2024 Coding Level of Care Code 71840 SUB INP/OBS CARE
[2024-02-16] MEDS: NITROGLYCERIN/D5W 100MCG/ML 20ML SYR ONE (14:42)
[2024-02-16] MEDS: niCARdipine 2,000 MCG/20 ML SYR ONE (14:42)
[2024-02-16] MEDS: fentaNYL citrate PF 100 MCG/2 ML VIAL ONE (15:43)
[2024-02-16] MEDS: MIDAZOLAM HCL 1 MG/ML 2ML VIAL ONE (15:43)
[2024-02-16] MEDS: HEPARIN (PORCINE) 1000 UNIT/ML 10 ML (CATH LAB USE ONLY) ONE (15:43)
[2024-02-16] MEDS: IODIXANOL (VISIPAQUE) 320 MG/ML 100ML IV ONE (15:44)
[2024-02-16] MEDS: OPTIRAY 350 ONE (15:44)
[2024-02-16 15:59] LABS: iSTAT Arterial Blood Gas HCO3 40 meg/L (19-24); iSTAT Arterial Blood Gas pCO2 54 mmHg (35-46); iSTAT Arterial Blood Gas pH 7.48 (7.35-7.45); iSTAT Arterial Blood Gas pO2 26 mmHg (80-95); iSTAT Carbon Dioxide 42 mmol/L (24-31); iSTAT Hematocrit 35 % (42-52); iSTAT Hemoglobin 11.9 g/dl (14.0-18.0); iSTAT Potassium 2.9 mmol/L (3.3-5.0); iSTAT Sodium 140 mmol/L (135-144)
--- NOTE | 2024-02-16 17:32 | Pre Anesthesia Assessment ---
Date of Service February 16, 2024 Pre Sedation Assessment Vital Signs Temp Pulse Pulse Resp BP Pulse Ox O2 Del Method 02/16/24 16:41 97.9 F 123 H 16 111/65 93 Nasal Cannula 02/16/24 11:34 99.0 F 115 H 19 97/65 L 97 Nasal Cannula 02/16/24 07:42 98.6 F 114 H 19 96/60 L 94 Nasal Cannula 02/16/24 07:37 97 H 02/16/24 07:28 Nasal Cannula 02/16/24 02:26 97.5 F L 118 H 16 101/68 93 CPAP 02/15/24 22:41 99.5 F 115 H 18 100/67 94 BiPAP 02/15/24 22:00 84 02/15/24 22:00 Room Air, BiPAP 02/15/24 21:40 98.6 F 111 H 18 99/63 L 96 Nasal Cannula 02/15/24 20:38 100.4 F H 116 H 18 111/62 93 Nasal Cannula 02/15/24 19:37 99.5 F 124 H 18 96/67 L 96 Nasal Cannula O2 Flow Rate 02/16/24 16:41 2 02/16/24 11:34 2 02/16/24 07:42 2 02/16/24 07:37 02/16/24 07:28 2 02/16/24 02:26 02/15/24 22:41 02/15/24 22:00 02/15/24 22:00 2 02/15/24 21:40 3 02/15/24 20:38 3 02/15/24 19:37 3 Cardiovascular + tachycardic and + irregularly irregular Respiratory + respiratory effort normal Pre-Sedation Airway Assessment Smoking Status: Never smoker Hx Sleep Apnea: No Short, Thick Neck: No Thyromental Distance: > or= 3.5 Finger Breadths Oral Cavity: + WNL Mallampati Class: III ASA: ASA4 NPO Status Date of Last Intake of Fluids: 02/16/24 Time of Last Intake of Fluids: 08:00 Last Oral Intake of Fluids Comment: t-1 Procedure Planning Contraindications for Sedation: none Current Medications Reviewed: Yes Notes The planned sedation has been discussed with the patient. Informed Consent was obtained. I have identified the patient, determined the appropriateness of sedation and have assessed the patient immediately prior to the procedure. All medicine(s) and interventions are by my order.
--- NOTE | 2024-02-16 17:32 | Post Anesthesia Assessment ---
Date of Service February 16, 2024 Post Sedation Assessment Vital Signs Temp Pulse Pulse Resp BP Pulse Ox O2 Del Method 02/16/24 16:41 97.9 F 123 H 16 111/65 93 Nasal Cannula 02/16/24 11:34 99.0 F 115 H 19 97/65 L 97 Nasal Cannula 02/16/24 07:42 98.6 F 114 H 19 96/60 L 94 Nasal Cannula 02/16/24 07:37 97 H 02/16/24 07:28 Nasal Cannula 02/16/24 02:26 97.5 F L 118 H 16 101/68 93 CPAP 02/15/24 22:41 99.5 F 115 H 18 100/67 94 BiPAP 02/15/24 22:00 84 02/15/24 22:00 Room Air, BiPAP 02/15/24 21:40 98.6 F 111 H 18 99/63 L 96 Nasal Cannula 02/15/24 20:38 100.4 F H 116 H 18 111/62 93 Nasal Cannula 02/15/24 19:37 99.5 F 124 H 18 96/67 L 96 Nasal Cannula O2 Flow Rate 02/16/24 16:41 2 02/16/24 11:34 2 02/16/24 07:42 2 02/16/24 07:37 02/16/24 07:28 2 02/16/24 02:26 02/15/24 22:41 02/15/24 22:00 02/15/24 22:00 2 02/15/24 21:40 3 02/15/24 20:38 3 02/15/24 19:37 3 Recovery Score Activity: Moves 4 extremities Respiration: Deep Breath/Cough Circulation: +/-20% PreAnes Value Consciousness: Fully Awake Oxygen Saturation: O2 needed for >90% Discharge Sedation Level of Care: Fast Track Phase II Post Sedation Plan On clinical assessment, the patient appears to have tolerated the sedation without complications. Patient is recovering as anticipated. Patient will continue to be monitored by nursing and may be discharged when sedation discharge criteria are met per below protocol. Upon Completions of procedure up to 15 minutes continue every 5 minute vital signs and the P.A.R. score; then discharge to a Phase I or Fast Track to Phase II per the following guidelines: * Discharge Patient to appropriate Phase II area if PAR is 8 or greater or retu rn to pre- procedure baseline. The post - procedure orders will be as directed. * If PAR score is less than 8 or not return to pre-procedure baseline then patient will follow Phase I monitoring till PAR is reached for Phase II. The Phase I may be done in procedure room or may call to secure a Phase I area. * If naloxone or flumazenil are used for reversal, hold in Phase I for continued monitoring from when last reversal dose was given for a minimum of 60 minutes or longer pending the nurse and/or physician discretion of patient condition before discharge to Phase II. Please call the Sedation Physician to re-evaluate and complete post-note for discharge to Phase II area. Do NOT discharge from procedure sedation or Phase 1 until post- sedation evaluation note is complete by procedure /sedation MD Sedation Discharge Instructions to be given to the patient at discharge to home.
--- NOTE | 2024-02-16 17:34 | Cardiac Catheterization ---
[facility] Data: Director Financial Systems Cardiac Status Clinical evaluation leading to the procedure CAD Presenation: Unstable angina Diagnostic Physicians Name: Taco Izquierdo MD Closure Device Recommendations: Medical Therapy and/or Counseling and Valve Replacement Cardiac Cath Procedure Full Procedure Date February 16, 2024 Pre-Procedure Diagnosis Pre-Procedure Diagnosis: Angina and CHF AUC Score AUC Score: 7 Post-Procedure Diagnosis Post-Procedure Diagnosis: Mild CAD and Elevated Intracardiac Pressures Procedure(s) Performed Procedure(s) Performed: Coronary Angiography, Right Heart Cath and Ultrasound Guided Vascular Access Merchandising Stock Associate Taco Izquierdo MD Corporate Communications Intern(s) Everardo Estimated Blood Loss Estimated Blood Loss: 20 Medication(s) Medication(s): Fentanyl, Heparin, Lidocaine 1%, Nicardipine, Nitroglycerin and Versed Summary of Findings Indication: Chest pain, mildly elevated troponin. Moderate to severe mitral regurgitation Access: 6 Fr right antecubital vein under ultrasound guidance, 6 Fr right radial artery Catheters: [place], JR4, AR-1, AL-1 Findings: LM -Short, no significant disease LAD -medium caliber, 20-30% proximal disease just before takeoff of small D1. Remainder of vessel without significant disease and distal vessel wraps around apex. Gives off 3 small diagonals. Circumflex - Large caliber, no significant disease. Tortuous OM2, left PLB without significant disease. RCA -dominant, high anterior takeoff, mild diffuse proximal to mid disease up to 20%. Distal vessel without significant disease. Medium PDA without disease. RA 15 RV 87/14 PA 83/32/53 PCWunable to wedge PaSat 49% AoSat 96% Mari CO/CI 4.8/2.2 Arterial Closure: TR band Summary: 1. Minimal nonobstructive coronary artery disease 25% proximal LAD 20% diffuse proximal to mid RCA 2. Severe pulmonary hypertension 3. Elevated right-sided filling pressures 4. Preserved cardiac output Recommendations: No obstructive CAD to explain patient's recent chest pain. Has now severe pulmonary hypertension and suspect related to patient's mitral regurgitation. Will need a valve clinic evaluation at tertiary center for consideration of surgical versus percutaneous mitral valve repair when infectious issues resolved Continue current diuretics Continued ASCVD risk factor modification Hemodynamics Rest Ao:: Final Ao: LV: -- Recommendations Recommendations: Medical Therapy and/or Counseling and Valve Replacement Specimens Specimens: None Radiation Exposure (mGy) 1898 Contrast (mls) 80 Anesthesia Moderate [id number] Procedural Complication(s) None Disposition PCU I attest to the content of the Intraoperative Record and any orders documented therein. Any exceptions are noted below. [facility] [place], [place] Card Cath Procedure Codes Cardiac Catheterization Procedure 1: Cardiovascular Cath Procedures: 54564 Coronaries and RHC Therapeutic Services & Ancillary Procedure 1: Cardiovascular Tx and Anc Procedures: 42678 Ultrasonic Guidance Vascular Access Moderate Sedation Procedure 1: Sedation/Anesthesia: 71631 Mod Sedation by the same physician;Init15 Min Child Age 5 & Up Procedure 2: Sedation/Anesthesia: 28336 Mod Sedation by the same physician; Ea [id number] Minutes PG Care Time/CCT Total # of Minutes Spent Total Time Spent with Patient: Total time spent is greater than 50% in coordination of care (as documented) at patient's floor/unit and/or counseling patient:
--- NOTE | 2024-02-16 17:59 | Cardiology Progress Note ---
Date of Service February 16, 2024 Assessment & Plan (1) Chest pain: Plan: clean coronaries on prior cath 11/2020. Previously thought GI 2. HFpEF- mild LE congestion on exam 3. Permanent atrial fibrillation persistent. DCCV 12/2021. No change in symptoms. On anticoagulation 5. Moderate to severe mitral regurgitation -- partial flail, ruptured chordae on DIOGO 01/2024 5. Bioprosthetic AVR Stabel Mildly elevated transvalvular gradients 6. CKD-- post nephrectomy, baseline SCr ~3.0 7. Iron deficiency anemia 8. Pulm hypertensionmildly dilated RV/RV dysfunction 9. Class III obesity post gastric bypass, FIFI on CPAP 10. CVI with prior venous ulcers 11. VRE/enterococcus bacteremia, Sepsis--?oral source; on daptomycin No recurrent chest pain. Suspect presenting episode was noncardiac Persistent lower extremity edema. Lungs clear. Weight down 5 pounds since yesterday Remains in AF with RVR with heart rates in the 120s Postcardiac catheterization today. Minimal nonobstructive CAD. Noteworthy finding of severe pulmonary hypertension with elevated right sided filling pressures. With severe MR and severe pulmonary hypertension will need to discuss further referral to tertiary center as an outpatient for consideration of surgical versus percutaneous mitral valve repair when infectious issues resolved. Patient likely very high risk for surgical MVR Continue current twice daily Bumex Resume Xarelto tomorrow Titrate metoprolol as BP allows. Heart rates in the 110s to 120s acceptable Will follow Admission and Anticipated Discharge Date Admission Date: February 14, 2024 Subjective No recurrent chest pain overnight. Underwent cardiac catheterization this afternoon. Review of Systems Review of Systems: All systems reviewed & are unremarkable except as noted in HPI & below Physical Exam Physical Exam: General: Looks tired but no distress HEENT: Sclerae anicteric Lungs: Lungs clear bilaterally Cardiac: Tachycardic irregularly irregular, crisp bioprosthetic closure, 1/6 Systolic ejection murmur. 2/6 holosystolic murmur at LLSB, apex Vascular: 1+ radial pulses bilaterally Abdomen: Soft, nontender, obese Extremities: Well perfused, 1-2+ lower extremity edema to upper shins Neuro: Nonfocal Psych: Alert orient x3, normal affect and mood Results & Data Vital Signs (Past 12 Hours) Vital Signs Temp Pulse Pulse Resp BP Pulse Ox O2 Del Method 02/16/24 16:41 97.9 F 123 H 16 111/65 93 Nasal Cannula 02/16/24 11:34 99.0 F 115 H 19 97/65 L 97 Nasal Cannula 02/16/24 07:42 98.6 F 114 H 19 96/60 L 94 Nasal Cannula 02/16/24 07:37 97 H 02/16/24 07:28 Nasal Cannula O2 Flow Rate 02/16/24 16:41 2 02/16/24 11:34 2 02/16/24 07:42 2 02/16/24 07:37 02/16/24 07:28 2 PG Care Time/CCT Total # of Minutes Spent Total Time Spent with Patient: Total time spent is greater than 50% in coordination of care (as documented) at patient's floor/unit and/or counseling patient: Coding Level of Care Code 63879 SUB INP/OBS CARE 3/50MIN Diagnoses Chest pain R07.9
[2024-02-17 06:18] LABS: Basophils # (auto) 0.04 K/uL (0.00-0.20); Basophils % (auto) 0.5 %; Eosinophils # (auto) 0.07 K/uL (0.00-0.50); Eosinophils % (auto) 0.8 %; Hemoglobin 10.7 g/dl (14.0-18.0); Immature Granulocytes # (auto) 0.04 K/uL (0.01-0.20); Immature Granulocytes % (auto) 0.5 %; Lymphocytes # (auto) 0.76 K/uL (1.20-3.40); Lymphocytes % (auto) 8.8 %; Mean Corpuscular Hemoglobin 26.8 pg (25.0-34.0); Mean Corpuscular Hgb Conc 30.6 g/dL (32.0-36.0); Mean Corpuscular Volume 87.5 fL (80.0-100.0); Mean Platelet Volume 9.7 fL (9.4-12.4); Monocytes # (auto) 0.82 K/uL (0.11-0.59); Monocytes % (auto) 9.5 %; Neutrophils # (auto) 6.91 K/uL (1.40-6.50); Neutrophils % (auto) 79.9 %; Platelet Count 127 K/uL (130-400); RDW Coefficient of Variation 18.4 % (11.5-14.5); RDW Standard Deviation 58.5 fL (36.4-46.3); White Blood Count 8.64 K/ul (4.8-10.8)
[2024-02-17 06:39] LABS: BUN Creatinine Ratio 20.4 (10-20); Calcium 9.4 mg/dl (8.6-10.3); Creatinine Clr Calc Pharmacy 32.6 ml/min; Potassium 3.5 mmol/L (3.5-5.1)
[2024-02-17 07:12] LABS: iSTAT Arterial Blood Gas HCO3 37 meg/L (19-24); iSTAT Arterial Blood Gas pCO2 49 mmHg (35-46); iSTAT Arterial Blood Gas pH 7.49 (7.35-7.45); iSTAT Arterial Blood Gas pO2 80 mmHg (80-95); iSTAT Carbon Dioxide 38 mmol/L (24-31); iSTAT Hematocrit 34 % (42-52); iSTAT Hemoglobin 11.6 g/dl (14.0-18.0); iSTAT Potassium 2.8 mmol/L (3.3-5.0); iSTAT Sodium 140 mmol/L (135-144)
[2024-02-17] MEDS: BUMETANIDE 1 MG TAB PO SCH ×2 (08:37→16:56)
[2024-02-17] MEDS: POTASSIUM CHLORIDE CRTAB 20 MEQ TABCR PO SCH (08:41)
[2024-02-17] MEDS: METOPROLOL TARTRATE 50 MG TAB PO SCH (08:41)
--- NOTE | 2024-02-17 10:22 | Hospitalist Progress Note ---
Date of Service February 17, 2024 Assessment & Plan (1) Chest pain: (2) Permanent atrial fibrillation with RVR: (3) Acute on chronic diastolic CHF (congestive heart failure): (4) Chronic kidney disease, stage 4 (severe): (5) Complex sleep apnea syndrome: (6) Hypokalemia: (7) Lower extremity edema: Plan Pt is a 83 yo male who presents to the hospital on 02/13 for chest pain. Afib with RVR Patient in permanent a fib with RVR. Likely multifactorial - recent hospitalization, electrolyte imbalances, known mitral regurg. Cardiology reports mitral regurg - to discuss valve replacement once patient is out of the hospital and stable. ECHO 02/05 showed mild LVH with EF - 55%-60%. - per cardio, resting HR 110-120s okay - to restart xarelto tonight Chest pain, resolved CP resolved with nitro x 2 and aspirin. Trop slightly elevated on admission at and peaked at 44, EKG without new ST elevations - no recurrence through hospital stay so may have been MSK related to URI with cough or GERD, but unlikely cardiac in nature HFpEF Unclear dry weight - last echo 02/05; EF 55-60%, mod-severe MR, at least mod pulm HTN - on bumex 3mg BID (up from once daily home regime) Bacteremia - recent hospitalization for dental infection with sepsis and enterococcus bacteremia, admitted on continued daptomycin - no fever since 02/14 - continue previously prescribed course of daptomycin CKD stage 4 Creatinine stable with 1.98 being most recent creatinine. He follows with nephrology. - stable this admission FIFI - CPAP HS DVT ppx: Xarelto Dispo: back to [facility] once bed available Admission and Anticipated Discharge Date Admission Date: February 14, 2024 Supervising Physician Co-Signing Physician Notes I personally examined the patient and verified all jeronimo points of history and exam, discussed case, and agree with decision making with Dr Snowden feeling better, was to return to rehab today but no bed appreciate cardiology assistance vitals noted nad heent nc at mmm breathing unlabored no accessory muscles good effort skin no rashes no pallor or icterus neuro no focal deficits afib/RVR - asymptomatic - titrate metoprolol (even as outpt), follow MR/flail leaflet - LHC done as part of preop assessment chronic HFpEF/mild acute on chronic HFpEF - seems to be compensated now. continue to follow enterococcus bacteremia - appears improved. finish previously started course of daptomycin for rehab once bed available Subjective Today, pt is feeling well. No chest pain or SOB today. No nausea or vomiting. He states other than some nasal congestion he feels pretty good, about how he felt when he first went to [facility]. No concerns today. Review of Systems Review of Systems: Per HPI. Physical Exam Physical Exam: General:Alert and oriented x3, no acute distress. HEENT: Normocephalic, moist oral mucosa, Cardio: Tachycardic, irregular rhythm. Scar above sternum. Resp:Lungs clear to auscultation b/l, no wheezes or rhonchi. GI: Soft, nontender, bowel sounds active. Results & Data Results & Data Vital Signs (Past 12 Hours) Vital Signs Temp Pulse Pulse Resp BP Pulse Ox O2 Del Method 02/17/24 07:11 Nasal Cannula 02/17/24 07:09 122 H 02/17/24 07:08 37.0 C 108 H 19 116/68 94 CPAP 02/17/24 02:40 36.7 C 117 H 18 103/61 94 CPAP O2 Flow Rate 02/17/24 07:11 2 02/17/24 07:09 02/17/24 07:08 02/17/24 02:40 Resident Activity Tracking Resident Involvement: Resident Care Provided Care Provided: Adult Hospital Medicine
[2024-02-17] MEDS: DAPTOmycin 825 MG in SYRINGE 0 ML IV SCH (10:31)
--- NOTE | 2024-02-17 13:20 | Billing Data ---
Date of Service February 17, 2024 Coding Level of Care Code 36942 SUB INP/OBS CARE
--- NOTE | 2024-02-17 13:45 | Cardiology Progress Note ---
Date of Service February 17, 2024 Assessment & Plan (1) Chest pain: Plan: Noncardiac. Minimal CAD on repeat cath 01/2024 2. HFpEF 3. Permanent atrial fibrillation persistent. DCCV 12/2021. No change in symptoms. On anticoagulation 5. Moderate to severe mitral regurgitation -- partial flail, ruptured chordae on DIOGO 01/2024 5. Bioprosthetic AVR Stabel Mildly elevated transvalvular gradients 6. CKD-- post nephrectomy, baseline SCr ~3.0 7. Iron deficiency anemia 8. Severe pulmonary hypertensionPASP 85, mildly dilated RV/RV dysfunction on echo 9. Class III obesity post gastric bypass, FIFI on CPAP 10. CVI with prior venous ulcers 11. VRE/enterococcus bacteremia, Sepsis--?oral source; on daptomycin No recurrent chest pain, breathing near recent baseline Lungs clear, weight down. Renal function stable Remains in AF with RVR with heart rates in the 120s No significant access site complications. With severe MR and severe pulmonary hypertension will need to discuss further referral to tertiary center as an outpatient for consideration of surgical versus percutaneous mitral valve repair when infectious issues resolved. Patient likely very high risk for surgical MVR Can transition Bumex 3 mg back to once daily Continue Xarelto Agree with increased dose of metoprolol. From a cardiac standpoint okay with transfer back to [facility]. Follow-up locally with CHF clinic in 1 to 2 weeks Will arrange follow-up with [facility] cardiology/cardiac surgery for discussion of valve repair options. Admission and Anticipated Discharge Date Admission Date: February 14, 2024 Subjective Feeling well this afternoon. No chest pain or shortness of breath. Sitting up in chair. States appetite good. Telemetry reviewedpersistent AF with heart rate in the 120s Review of Systems Review of Systems: All systems reviewed & are unremarkable except as noted in HPI & below Physical Exam Physical Exam: General: Awake, no distress HEENT: Sclerae anicteric Lungs: Lungs clear bilaterally Cardiac: Tachycardic irregularly irregular, crisp bioprosthetic closure, 1/6 Systolic ejection murmur. 2/6 holosystolic murmur at LLSB, apex Vascular: 1+ radial pulses bilaterally. Ecchymosis but no hematoma at right radial artery access site or right brachial venous access site. Abdomen: Soft, nontender, obese Extremities: Well perfused, 1+ edema right greater than left Neuro: Nonfocal Psych: Alert orient x3, normal affect and mood Results & Data Vital Signs (Past 12 Hours) Vital Signs Temp Pulse Pulse Resp BP Pulse Ox O2 Del Method 02/17/24 11:12 98.1 F 99 H 18 95/62 L 98 Nasal Cannula 02/17/24 07:11 Nasal Cannula 02/17/24 07:09 122 H 02/17/24 07:08 98.6 F 108 H 19 116/68 94 CPAP 02/17/24 02:40 98.1 F 117 H 18 103/61 94 CPAP O2 Flow Rate 02/17/24 11:12 4 02/17/24 07:11 2 02/17/24 07:09 02/17/24 07:08 02/17/24 02:40 PG Care Time/CCT Total # of Minutes Spent Total Time Spent with Patient: Total time spent is greater than 50% in coordination of care (as documented) at patient's floor/unit and/or counseling patient: Coding Level of Care Code 38406 SUB INP/OBS CARE 2/35MIN Diagnoses Chest pain R07.9
[2024-02-18 07:13] LABS: BUN Creatinine Ratio 21.1 (10-20); Calcium 9.1 mg/dl (8.6-10.3); Creatinine Clr Calc Pharmacy 32.1 ml/min; Potassium 3.3 mmol/L (3.5-5.1)
--- NOTE | 2024-02-18 09:10 | Discharge Summary ---
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 Patient began experiencing chest pressure/pain. Substernal in nature without radiation to the jaw, neck, back, or arm lasting > 20 minutes. Patient was given nitro x 2 and ASA 324 mg chew en route to the hospital. Patient in a fib with RVR and hypotensive in the ED. Lopressor was ordered, but not given as BP low. Labs revealing slightly elevated troponin, electrolyte abnormalities, leukocytosis, elevated BNP, and anemia. Hospitalist team was consulted for admission. Recommended repleting lytes - given Mg x 2 bags, K x 3 bags. Upon my interview patient is feeling well. No more chest pain. No increased SOB or difficulty breathing. No fevers. Has felt cold. Patient reports feeling that his legs are swollen. Did have a new bubble in the skin develop over the last few days, but no new wounds. No blood in the urine or stool. No headache or vision changes. No nausea or vomiting. No change in bowel habits. No urinary symptoms. Patient reports his dry weight is 242 and that he's gained a lot of weight since leaving the hospital. Says he is peeing out multiple gallons a day. Weight today is around 200 pounds. Documented dry weight is 225. Admission Exam Per Admitting Provider Gen: chronically ill appearing patient in NAD HEENT: AT NC MMM Resp: CTAB no wheezing no increased work of breathing CV: irregularly irregular with elevated rate, no m/r/g appreciated, clinically well perfused Abd: soft, non-tender, +BS, non-distended MSK: no obvious deformities Skin: 2+ pitting edema bilaterally, chronic venous stasis changes and erythema, quarter sized bubble left salmeron, no significant warmth, no open wounds, no purulent drainage Neuro: alert and oriented Psych: appropriate mood and affect Principal Diagnosis Atrial fibrillation with RVR Discharge Exam General:Alert and oriented x3, no acute distress. HEENT: Normocephalic, moist oral mucosa, Cardio: Tachycardic, irregular rhythm. Resp:Lungs clear to auscultation b/l, no wheezes or rhonchi. GI: Soft, nontender, bowel sounds active. Discharge Data Allergies Allergy/AdvReac Type Severity Reaction Status Date / Time iron [From Venofer] AdvReac Mild Vomiting Verified 02/03/24 11:53 Iodinated Contrast Media AdvReac Unknown PT ONLY Verified 02/03/24 11:53 [Iodinated Contrast- Oral HAS 1 and IV Dye] KIDNEY, CONTRAINDICATED. 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 Afib with RVR Patient in permanent a fib with RVR. Likely multifactorial - recent hospitalization, electrolyte imbalances, known mitral regurg. Cardiology reports mitral regurg - to discuss valve replacement once patient is out of the hospital and stable. ECHO 02/05 showed mild LVH with EF - 55%-60%. - per cardio, resting HR 110-120s okay - home xarelto continued Chest pain, resolved CP resolved with nitro x 2 and aspirin. Trop slightly elevated on admission at and peaked at 44, EKG without new ST elevations - no recurrence through hospital stay so may have been MSK related to URI with cough or GERD, but unlikely cardiac in nature HFpEF Unclear dry weight - last echo 02/05; EF 55-60%, mod-severe MR, at least mod pulm HTN - on bumex 3mg BID will be transitioned back to 3 mg daily on discharge Bacteremia - recent hospitalization for dental infection with sepsis and enterococcus bacteremia, admitted on continued daptomycin - no fever since 02/14 - continue previously prescribed course of daptomycin Total Time Total Time Spent Total Time Spent (In Minutes): <30 Discharge Plan Discharge Items Patient Disposition: Home - Self-Care Reason For Visit: CHEST PAIN Discharge Diagnosis: Atrial fibrillation with rapid fagan rate Activity: Resume your previous activity Non-emergency contact: Primary Care Provider Call non-emergency contact if: you have any medication questions, your symptoms worsen, your pain is worsening, your pain is unusual for you and your temperature is above 101 Follow-up/Referrals: Zackery Cochran DO [Primary Care Provider] - 02/24/24 11:00 am (Hospital follow up scheduled February 23 at 11:00 with Carmela Olvera) Diet: Heart Healthy Addtl Attending Provider Instructions: You were admitted to the hospital for chest pain and for your atrial fibrillation with high heart rate. As your chest pain is resolved and your heart rate has been in an acceptable range, we feel it is safe for you to go back to [facility] to continue with your rehab. Please plan to follow-up with your primary care physician when you are discharged from [facility]. Pending Studies at Discharge: No Stand-Alone Forms: My [facility] Medications and DC Order Prescriptions: Continued cyanocobalamin (vitamin B-12) 1,000 mcg/mL solution 1,000 mcg IM Q90D Qty: 30 0RF metolazone 5 mg tablet 5 mg PO DAILY PRN (Reason: weight gain) Qty: 30 5RF rivaroxaban 15 mg tablet 15 mg PO HS Qty: 90 3RF calcitriol 0.25 mcg capsule 0.5 mcg PO QAM Qty: 180 3RF potassium chloride 10 mEq capsule, extended release 10 meq PO BID Qty: 180 1RF cyclobenzaprine 5 mg tablet 5 mg PO BID PRN (Reason: muscle pain/stiffness) Qty: 60 3RF allopurinol 100 mg tablet 100 mg PO QAM Qty: 90 3RF metoprolol succinate 25 mg tablet extended release 24 hr 75 mg PO QPM Qty: 90 3RF amoxicillin 500 mg tablet 2,000 mg PO DIRECTED PRN (Reason: 1 HOUR PRIOR TO DENTAL PROCEDURES) Patient Comments: 2,000 mg PO 1 hour prior to dental procedure.; Rx Instructions: TAKE 4 CAPSULES BY MOUTH 1 HOUR PRIOR TO DENTAL WORK (DME) Portable Oxygen Misc See Rx Instructions .Route Qty: 1 0RF Rx Instructions: As directed tramadol 50 mg tablet 50 mg PO BID PRN (Reason: Pain) Qty: 60 0RF magnesium 250 mg Tablet 250 mg PO HS cholecalciferol (vitamin D3) [Vitamin D3] 50 mcg (2,000 unit) Capsule 50 mcg PO DAILY bumetanide 2 mg tablet 3 mg PO QAM mupirocin 2 % ointment 1 applic topical TID PRN (Reason: irritation) tamoxifen 20 mg tablet 20 mg PO QAM docusate sodium 100 mg Capsule 100 mg PO DAILY PRN (Reason: constipation) Qty: 0 0RF midodrine 10 mg Tablet 10 mg PO TID@0800,1200,1700 Qty: 0 0RF daptomycin 500 mg recon soln 825 mg IV Q48H Rx Instructions: administer over 30 mins Discharge Orders: Discharge Order (Routine); Ordered 02/18/24 Ordered By: Jagruti Snowden Admission Data Admit Date/Time: 02/14/24 22:48 Attending Provider: Jerrell Douglas Admit Provider: Cristina Huggins Primary Care Provider: Zackery Cochran Other Providers: Nevin Grossman; Mckay Elliott; [facility] Other Interventions: Discharge Summary Assessment (RN) Last Done: 02/18/24 10:30 Supervising Physician Co-Signing Physician Notes I personally examined the patient and verified all jeronimo points of history and exam, discussed case, and agree with decision making with Dr Snowden sleeping comfortably, has rehab bed today vitals noted resting comfortably and appears in nad heent nc at mmm breathing unlabored no accessory muscles good effort skin no rashes no pallor or icterus neuro no focal deficits afib/RVR - asymptomatic - titrate metoprolol (even as outpt), follow up as outpt MR/flail leaflet - C done as part of preop assessment chronic HFpEF/mild acute on chronic HFpEF -compensated now. continue to follow enterococcus bacteremia - appears improved. finish previously started course of daptomycin for rehab today Resident Activity Tracking Resident Involvement: Resident Care Provided Care Provided: Adult Hospital Medicine
[2024-02-18] MEDS: POTASSIUM CHLORIDE CRTAB 20 MEQ TABCR PO STA (10:20)
[2024-02-18 11:28] VITALS: RESP 22; TEMP 97.9; O2SAT 91
--- NOTE | 2024-02-18 13:02 | Billing Data ---
Date of Service February 18, 2024 Coding Level of Care Code 40514 IN/OBS DISCH 30 MIN/LESS
[2024-02-18 14:11] VITALS: BP 111/65; PULSE 87
== END 2024-02-18 14:26 | disposition home or self-care (01) | DRG 286 ==
LOC: ED 20:08 → 2S 22:48 → SUATTDRO 22:48 → 2S 23:35

== ENCOUNTER 2024-05-14 11:42 | Inpatient (IN) ==
--- OUTSIDE RECORDS SUMMARY | 2024-05-14 11:51 | External Medical Summary ---
Author Name Unknown Address Unknown Organization [id number]:[facility] [address] [place] [address] Laboratory Report Ordering Provider Test Date Status PAYAL PALOMINO 05/10/2024 06:07:32 Final Observation Date Value Abnormality Reference (Units ) Status WBC, Total 05/10/2024 06:07:32 7.66 4.00-10.8 0 (K/uL) Final RBC 05/10/2024 06:07:32 3.71 4.50-5.25 (M/uL) Final Hemoglobin 05/10/2024 06:07:32 9.2 Below low normal 14 .0-16.8 (g/dL) Final HCT 05/10/2024 06:07:32 31.4 Below low normal 40. 0-48.4 (%) Final MCV 05/10/2024 06:07:32 84.6 82.0-99.5 (fL) Final MCH 05/10/2024 06:07:32 24.8 27.0-34.0 (pg) Final MCHC 05/10/2024 06:07:32 29.3 32.0-36.0 (g/dL) Final RDW 05/10/2024 06:07:32 18.0 11.5-15.5 (%) Final Platelets 05/10/2024 06:07:32 168 140-400 (K /uL) Final MPV 05/10/2024 06:07:32 10.7 6.6-11.1 ( fL) Final Performing Location [facility] [address] [place] [address]
--- OUTSIDE RECORDS SUMMARY | 2024-05-14 11:51 | External Medical Summary ---
Author Name Unknown Address Unknown Organization [id number]:[facility] [place] [address] Laboratory Report Ordering Provider Test Date Status PAYAL PALOMINO 05/10/2024 06:07:32 Final Observation Date Value Abnormality Reference (Units ) Status BUN 05/10/2024 06:07:32 63 Above high normal 6-20 (mg/dL) Final Creatinine 05/10/2024 06:07:32 2.4 Above high normal 0.6-1.2 (mg/dL) Final Glomerular filtration rate/1.73 sq M.predicted [Volume Rate/Area] in Serum, Plasma or Blood by Creatinine-based formula (CKD-EPI) 05/10/2024 06:07:32 27 Below low normal >=60 (mL/min) Final eGFR is calculated based on the CKD-EPI 2020 equation. Sodium 05/10/2024 06:07:32 141 135-146 (m mol/L) Final Potassium 05/10/2024 06:07:32 3.6 3.5-5.1 (m mol/L) Final Cl 05/10/2024 06:07:32 101 98-107 (mm ol/L) Final CO2 05/10/2024 06:07:32 29 22-32 (mmo l/L) Final Anion gap 05/10/2024 06:07:32 11 7-15 (mmol /L) Final Glucose 05/10/2024 06:07:32 101 70-120 (mg /dL) Final Calcium 05/10/2024 06:07:32 9.4 8.4-10.2 ( mg/dL) Final Performing Location [facility] [place] [address]
--- OUTSIDE RECORDS SUMMARY | 2024-05-14 11:51 | External Medical Summary ---
Author Name Unknown Address Unknown Organization [id number]:[facility] [address] [address] Laboratory Report Ordering Provider Test Date Status BIPIN MORALES 2024 06:03:38 Final Observation Date Value Abnormality Reference (Units ) Status BUN 2024 06:03:38 62 Above high normal 6-20 (mg/dL) Final Creatinine 2024 06:03:38 2.3 Above high normal 0.6-1.2 (mg/dL) Final Glomerular filtration rate/1.73 sq M.predicted [Volume Rate/Area] in Serum, Plasma or Blood by Creatinine-based formula (CKD-EPI) 2024 06:03:38 28 Below low normal >=60 (mL/min) Final eGFR is calculated based on the CKD-EPI 2020 equation. Sodium 2024 06:03:38 142 135-146 (m mol/L) Final Potassium 2024 06:03:38 3.6 3.5-5.1 (m mol/L) Final Cl 2024 06:03:38 98 98-107 (mm ol/L) Final CO2 2024 06:03:38 32 22-32 (mmo l/L) Final Anion gap 2024 06:03:38 12 7-15 (mmol /L) Final Glucose 2024 06:03:38 120 70-120 (mg /dL) Final Calcium 2024 06:03:38 9.8 8.4-10.2 ( mg/dL) Final Performing Location [facility] [address] [address]
--- OUTSIDE RECORDS SUMMARY | 2024-05-14 11:51 | External Medical Summary ---
Author Name Unknown Address Unknown Organization [id number]:[facility] [address] [place] [address] Laboratory Report Ordering Provider Test Date Status BIPIN MORALES 05/06/2024 06:23:12 Final Observation Date Value Abnormality Reference (Units ) Status WBC, Total 05/06/2024 06:23:12 8.24 4.00-10.8 0 (K/uL) Final RBC 05/06/2024 06:23:12 4.14 4.50-5.25 (M/uL) Final Hemoglobin 05/06/2024 06:23:12 10.2 Below low normal 14 .0-16.8 (g/dL) Final HCT 05/06/2024 06:23:12 35.0 Below low normal 40. 0-48.4 (%) Final MCV 05/06/2024 06:23:12 84.5 82.0-99.5 (fL) Final MCH 05/06/2024 06:23:12 24.6 27.0-34.0 (pg) Final MCHC 05/06/2024 06:23:12 29.1 32.0-36.0 (g/dL) Final RDW 05/06/2024 06:23:12 17.6 11.5-15.5 (%) Final Platelets 05/06/2024 06:23:12 169 140-400 (K /uL) Final MPV 05/06/2024 06:23:12 10.7 6.6-11.1 ( fL) Final Performing Location [facility] [address] [place] [address]
--- OUTSIDE RECORDS SUMMARY | 2024-05-14 11:51 | External Medical Summary ---
Author Name Unknown Address Unknown Organization [email or web address]:[facility] [address] [place] [address] Laboratory Report Ordering Provider Test Date Status BIPIN MORALES 05/06/2024 06:23:12 Final Observation Date Value Abnormality Reference (Units ) Status BUN 05/06/2024 06:23:12 59 Above high normal 6-20 (mg/dL) Final Creatinine 05/06/2024 06:23:12 2.2 Above high normal 0.6-1.2 (mg/dL) Final Glomerular filtration rate/1.73 sq M.predicted [Volume Rate/Area] in Serum, Plasma or Blood by Creatinine-based formula (CKD-EPI) 05/06/2024 06:23:12 30 Below low normal >=60 (mL/min) Final eGFR is calculated based on the CKD-EPI 2020 equation. Sodium 05/06/2024 06:23:12 142 135-146 (m mol/L) Final Potassium 05/06/2024 06:23:12 3.7 3.5-5.1 (m mol/L) Final Cl 05/06/2024 06:23:12 100 98-107 (mm ol/L) Final CO2 05/06/2024 06:23:12 31 22-32 (mmo l/L) Final Anion gap 05/06/2024 06:23:12 11 7-15 (mmol /L) Final Glucose 05/06/2024 06:23:12 112 70-120 (mg /dL) Final Calcium 05/06/2024 06:23:12 9.4 8.4-10.2 ( mg/dL) Final Performing Location [facility] [address] [address]
--- OUTSIDE RECORDS SUMMARY | 2024-05-14 11:52 | External Medical Summary | Summary of Care ---
Author Name Unknown Organization [facility] Address [address] [facility] [place] [address] Phone [phone] Care Team Providers Care Manufacturing Quality Inspector Name Role Phone DimasZackery Ren GIL Primary Care Provider + Reason for Referral * Evaluate & Treat - Unlimited Visits (Within 10 days (routine)) - Authorized Specialty Diagnoses / Procedures Referred By Contac t Referred To Contact Cardiovascular Medicine Diagnoses Nonrheumatic mitral (valve) insufficiency Luba Balbuena MD [address] [place] [address] Phone: tel: fax: Referral ID Status Reason Start Date Expiration Date Visits Requested Visits Authorized [id number] Authorized Specialty Services Required 05/02/2024 [id number] Question Answer Referral Priority Within 10 days (routine) Where should this appointment be scheduled? [facility] Comments Discharge Order * Evaluate & Treat - Unlimited Visits (Within 30 days (routine)) - Authorized Specialty Diagnoses / Procedures Referred By Contac t Referred To Contact CARDIAC REHAB / Cardiology Diagnoses S/P mitral valve clip implantation Luba Balbuena MD Phone: tel: fax: Referral ID Status Reason Start Date Expiration Date Visits Requested Visits Authorized [id number] Authorized Specialty Services Required 04/27/2024 999 [id number] Question Answer Referral Priority Within 30 days (routine) Where should this appointment be scheduled? [facility] Comments Discharge Order Reason for Visit * Auth/Cert Specialty Diagnoses / Procedures Referred By Jaleesa t Referred To Contact Diagnoses Mitral regurgitation Mitral regurgitation [I34.0] Procedures TRANSCATH REPAIR MITRAL VALVE, INITIAL TRANSCATHETER MITRAL VALVE REPAIR Hamida Patel MD [address] [place] [address] Phone: tel: fax: CRS Waiting [facility], Cardiac Recovery Suite Waiting Unit, [address] [place] [address] Phone: tel: Referral ID Status Reason Start Date Expiration Date Visits Re quested Visits Authorized [id number] Encounter Details Date Type Department Care Team (Latest Contact Info) Description 04/27/2024 5:52 AM EST - 05/02/2024 1:45 PM EST Hospital Encounter [facility] 8, [facility] 8th Floor [address] [place] [address] Hamida Patel MD [address], [place] [id number] Zackery Jefferson MD [address] [place] [address] Sergio Becerra DO [address] [place] [address] Various: EKG,CDIQDC,KRAVS Discharge Disposition: IP Rehab Allergies Active Allergy Reactions Criticality Noted Date Comments Iodinated Contrast Media 03/14/2022 Contraindicated due to solitary kidney Iron Nausea/vomiting Low 02/03/2024 documented as of this encounter (statuses as of 05/03/2024) Medications AMOXICILLIN 500 MG PO CAPS takes before dental procedures Active Cholecalcifero l (VITAMIN D3) 2000 UNITS Capsule Take 1 Capsule by mouth in the morning. Active allopurinol (ZYLOPRIM) 100 MG Tablet Take 0.5 Tablets by mouth in the morning. Active traMADol (ULTRAM) 50 MG Tablet Take 1 Tablet by mouth 2 times a day as needed for Pain. Active Xarelto 15 MG Oral Tablet Take 1 Tablet by mouth at bedtime. 04/29/19 23 Active Calcitriol 0.25 MCG Oral Capsule (Rocaltrol) Take 2 Capsules by mouth in the morning. 06/25/19 22 Active Docusate Sodium 100 MG Oral Capsule Take 1 Capsule by mouth 2 times a day as needed for Constipation. Active Tamoxifen Citrate 10 MG Oral Tablet (Nolvadex) Take 2 Tablets by mouth in the morning. Active Magnesium 250 MG Oral Tablet Take 1 Tablet by mouth at bedtime. Active Cyanocobalamin 1000 MCG/ML Injection Solution (Cyanocobalami n) Inject 1 mL into a large muscle every 3 months. Active Cyclobenzaprin e HCl 5 MG Oral Tablet (Flexeril) Take 1 Tablet by mouth 2 times a day as needed for Muscle spasms. Active Potassium Chloride Mikki ER 10 MEQ Oral Tablet Extended Release Take 2 Tablets by mouth in the morning and 2 Tablets before bedtime. Active Midodrine HCl 10 MG Oral Tablet (Proamatine) Take 1 Tablet by mouth in the morning and 1 Tablet at noon and 1 Tablet before bedtime. 02/08/20 24 Active CPAP every night at bedtime. Active Aspirin 81 MG Oral Tablet Chewable Take 1 Tablet by mouth in the morning. 30 Tablet 05/03/19 25 Active Metoprolol Succinate ER 50 MG Oral Tablet Extended Release 24 Hour (toPROL XL) Take 2 Tablets by mouth at bedtime. 60 Tablet 05/02/19 25 Active Torsemide 40 MG Oral Tablet Take 80 mg by mouth in the morning and 80 mg before bedtime. 60 Tablet 05/02/19 25 Active Bumetanide 2 MG Tablet Take 1.5 Tablets by mouth in the morning. 025 Discontinued Metoprolol Succinate ER 25 MG Oral Tablet Extended Release 24 Hour (toPROL XL) Take 3 Tablets by mouth at bedtime. 06/26/19 23 025 Discontinued metOLazone 5 MG Oral Tablet (Zaroxolyn) Take 1 Tablet by mouth as needed (weight gain). 06/26/19 23 025 Discontinued documented as of this encounter (statuses as of 05/03/2024) Active Problems Problem Noted Date Diagnosed Date CKD (chronic kidney disease) stage 4, GFR 15-29 ml/min 04/28/2024 S/P mitral valve clip implantation 04/27/2024 [employer] [employer] Other*[id number] 08/28 OBESITY, BMI 30-34 (SEE ACTUAL BMI) 06/21/2009 Overview (06/21/2009): Per Obesity Taxonomy Dyslipidemia, goal LDL below 100 03/13/2009 Overview (03/13/2009): Per Lipid Taxonomy. Difficult Airway 04/04/2004 Overview (04/04/2004): DOS: 04/27/03 Direct laryngoscopy X 2, epiglottis visualized, failed intubation by direct laryngoscopy and FOB assistance. Insertion of intubating LMA led to successful ETT placement. 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 Not on file Not on file Not on file documented as of this encounter Last Filed Vital Signs Vital Sign Reading Time Taken Comments Blood Pressure 93/69 05/02/2024 11:20 AM EST Pulse 101 05/01/2024 3:26 PM EST Temperature 36.1 C (97 F) 05/02/2024 11: 20 AM EST Respiratory Rate 18 05/02/2024 11:2 0 AM EST Oxygen Saturation 96% 05/01/2024 6:53 PM EST Inhaled Oxygen Concentration - - Weight 93.4 kg (205 lb 14.6 oz) 05/02/2024 5:00 AM EST Height 167.6 cm (5' 6") 04/27/2024 6:1 6 AM EST Body Mass Index 33.23 04/27/2024 6:16 AM EST documented in this encounter Functional Status * Are you deaf or do you have serious difficulty hearing? Answer Date of Assessment Author No 04/28/2024 12:47 AM Marshall Enrique RN * Are you blind or do you have serious difficulty seeing, even when wearing glasses? Answer Date of Assessment Author No 04/28/2024 12:47 AM Marshall Enrique RN * Do you have serious difficulty walking or climbing stairs? (5 years old or older) Answer Date of Assessment Author Yes 04/28/2024 12:47 AM Marshall Enrique RN * Do you have difficulty dressing or bathing? (5 years old or older) Answer Date of Assessment Author Yes 04/28/2024 12:47 AM Marshall Enrique RN * Because of a physical, mental, or emotional condition, do you have difficulty doing errands alone such as visiting a doctors office or shopping? (15 years old or older) Answer Date of Assessment Author Yes 04/28/2024 12:47 AM Marshall Enrique RN documented as of this encounter Mental Status * Because of a physical, mental, or emotional condition, do you have serious difficulty concentrating, remembering, or making decisions? (5 years old or older) Answer Entry Date Author No 04/28/2024 12:47 AM Marshall Enrique RN documented in this encounter Discharge Summaries * Luba Balbuena MD - 05/02/2024 1:27 PM EST [facility] [address] Admission Date: 04/27/2024 Discharge Date: 05/02/2024 RECOMMENDED TO DO FOR NEXT PROVIDER(S): Follow up with Valve Clinic within one month Recommend Cardiology follow-up and Cardiology rehab within 1 month after discharge Continue to follow with PCP. Recommend to follow-up in one-week after discharge Follow up on BMP in 3-5 days REASON(S) FOR MEDICATION CHANGE(S): START taking: aspirin 81 mg daily Torsemide 80 mg twice daily CHANGE how you take: metoprolol succinate XL (toPROL XL). Dose was increased to 100 mg daily STOP taking: Bumetanide 2 MG Tablet metOLazone 5 MG Tablet (Zaroxolyn) DISPOSITION ON DISCHARGE: IP Rehabinpatient rehab Active Hospital Problems Diagnosis *Principal Diagnosis - S/P mitral valve clip implantation CKD (chronic kidney disease) stage 4, GFR 15-29 ml/min ([facility]) Dyslipidemia, goal LDL below 100 S/P aortic valve replacement Sleep apnea HTN, goal below 140/90 Resolved Hospital Problems No resolved problems to display. 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 Patient has been following in clinic with Dr. 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 Patient presented today to [facility] for planned mitral clip procedure. He completed the procedure successfully and doing well postprocedure. At the time of my evaluation, patient reports feeling well without ongoingsymptoms. Patient denies any associated chest pain, palpitations, dyspnea, cough, fevers, chills, nausea, vomitting, diarrhea, constipation, headaches, vision changes, and weakness. Day of admission physical examination- General: Patient in no apparent distress. HEENT: normocephalic, atraumatic, pupils reactive to light bilaterally. Heart: Mildly tachycardic, irregularly irregular Pulmonary: Lungs clear to auscultation bilaterally; no wheezes, rhonchi or crackles. Abdomen: Soft, non-tender, non-distended. Normal bowel sounds and no rebound or guarding. MSK: Patient able to ambulate; Gross motor function intact. Extremities: Bilateral lower extremity edema 2+ Skin: [place], warm, no wounds or lesions present. Neuro: AAOx3. No gross motor or sensory deficits. Vascular: Palpable DP/PT pulses bilaterally . Psych: Appropriate mood and affect. HOSPITAL COURSE (focused): The patient presented to [facility] on 04/27/2024 for scheduled mitral clip implantation. Patient tolerated the procedure well and remained at [facility] for observation. He was found to be fluid overloaded with mild dyspnea prior to the procedure, and he was started on IV diuretics with good urine output and resolution of shortness of breath. He remained stable throughout his hospital course and was discharged inpatient rehabilitation on 05/02/2024 Day of discharge physical examination- BP 93/69 | Pulse 101 | Temp 36.1 C (97 F) (Tympanic) | Resp 18 | Ht 1.676 m (5' 6") | Wt 93.4 kg (205 lb 14.6 oz) | SpO2 96% | BMI 33.23 kg/m | BSA 2.09 m GENERAL: alert, not in acute distress HEAD: NCAT EYES: EOMI, PERRLA, sclera & conjunctiva clear MOUTH: moisted, no erythema or exudate NECK: supple, normal ROM, no thyromegaly or masses CARDIO: regular rate and rhythm, no murmurs/rubs/gallops, equal pulses in all extremities PULM: good respiratory effort, clear breath sounds, no crackles or wheezing ABDOMEN: soft, non-tender to palpation, no peritoneal signs, no organomegaly or masses, intact peristalsis EXTREMITIES: no edema, no evidence for DVT NEURO: alert, oriented x3, moves all extremities spontaneously SKIN: warm, dry, intact Operations & Procedures: Mitral clip implantation Complications: none significant Significant Lab and Imaging Results: As mentioned above Results Pending at Discharge: Lab Results Pending at Discharge: CBC STAT MAGNESIUM STAT BASIC METABOLIC PANEL STAT MEDICATION UPDATES AT DISCHARGE START taking these medications INSTRUCTIONS aspirin 81 MG chewable tablet Start taking on: May 03, 2024 Take 1 Tablet by mouth in the morning. Torsemide 40 MG Tabs Take 80 mg by mouth in the morning and 80 mg before bedtime. CHANGE how you take these medications INSTRUCTIONS metoprolol succinate XL 50 MG Tb24 Commonly known as: toPROL XL What changed: medication strength how much to take Take 2 Tablets by mouth at bedtime. CONTINUE taking these medications INSTRUCTIONS Allopurinol 100 MG Tablet Commonly known as: Zyloprim Take 0.5 Tablets by mouth in the morning. Amoxicillin 500 MG Capsule Commonly known as: Amoxil takes before dental procedures Calcitriol 0.25 MCG Capsule Commonly known as: Rocaltrol Take 2 Capsules by mouth in the morning. CPAP every night at bedtime. cyclobenzaprine 5 MG Tablet Commonly known as: Flexeril Take 1 Tablet by mouth 2 times a day as needed for Muscle spasms. Docusate Sodium 100 MG Capsule Commonly known as: Colace Take 1 Capsule by mouth 2 times a day as needed for Constipation. Magnesium 250 MG Tablet Take 1 Tablet by mouth at bedtime. midodrine HCl 10 MG Tablet Commonly known as: Proamatine Take 1 Tablet by mouth in the morning and 1 Tablet at noon and 1 Tablet before bedtime. potassium chloride ER 10 MEQ Tbcr Take 2 Tablets by mouth in the morning and 2 Tablets before bedtime. Tamoxifen Citrate 10 MG Tabs Tablet Commonly known as: Nolvadex Take 2 Tablets by mouth in the morning. traMADol 50 MG Tablet Commonly known as: Ultram Take 1 Tablet by mouth 2 times a day as needed for Pain. Vitamin B-12 1000 MCG/ML injection Commonly known as: Cyanocobalamin Inject 1 mL into a large muscle every 3 months. Vitamin D3 50 MCG (2000 UT) Capsule Take 1 Capsule by mouth in the morning. Xarelto 15 MG Tablet Generic drug: Rivaroxaban Take 1 Tablet by mouth at bedtime. STOP taking these medications Bumetanide 2 MG Tablet metOLazone 5 MG Tablet Commonly known as: Zaroxolyn SCHEDULED FOLLOW-UP: Future Appointments Appt Date/Time Provider Department 05/31/2024 3:00 PM ELECTRICAL ASSEMBLY SUPERVISOR 1 GW Cardiac Studies, [facility] 06/06/2024 1:30 PM [facility], [facility] 06/06/2024 2:00 PM Herlinda Venegas PA-C Cardiology, [facility] Outpatient Follow Up Basic Metabolic Panel Cardiac Rehab Referral OP Valve Clinic Referral OP Other Information Indwelling Devices: LINES ALL Duration Peripheral Line Right;Lower Arm 20 Gauge 5 days Vital Signs (last recorded): Most Recent Systolic BP: 93 mmHg (05/02/24 1120) Most Recent Diastolic BP: 69 mmHg (05/02/24 1120) Pulse: 101 (05/01/24 1526) Resp: 18 (05/02/24 1120) Most Recent Temperature: 36.11 C (05/02/24 1120) Weight: 93.4 kg (205 lb 14.6 oz) (05/02/24 0500) SpO2: 96 % (05/01/24 1853) O2 flow rate: 3 L/MIN (05/01/24 2351) Allergies: Iodinated contrast media and Iron Activity: as tolerated Diet: age appropriate diet and cardiac diet Code Status: Full Code Condition on Discharge: stable Isolation status: None Cognition: normal HOSPITAL CONSULTS ORDERED: CARE MANAGEMENT CONSULT IP ADULT PHYSICAL THERAPY CONSULT IP ADULT OCCUPATIONAL THERAPY CONSULT IP REFERRING PHYSICIAN: REF: HAMIDA PATEL [address] [place] [address] (office) [phone] (fax) PRIMARY CARE PROVIDER: PCP: Zakcery Cochran DO [address] [place] [phone] (office) [phone] (fax) Note: To contact a physician responsible for this patients hospital care, please call [facility] [phone]. Cosigned by Sergio Becerra DO at 05/02/2024 1:34 PM EST Associated attestation - Sergio Becerra DO - 05/02/2024 1:34 PM EST I saw and evaluated the patient today. I have reviewed the resident/fellow physician note and agree. Volume status much improved after IV diuresis. Changing maintenance diuretic to Torsemide 80 mg BID. Recommend checking BMP within 1 week to ensure electrolytes stable on maintenance diuretic. Feels much better - ready for d/c to inpatient rehab today. documented in this encounter Discharge Instructions * Discharge Instr - AVS* Luba Balbuena MD - 04/29/2024 7:16 AM EST Discharge Date: 05/02/2024 If you have chest pain or uncontrollable bleeding from a catheter site, please call 911 immediately. For other questions or concerns, please call [phone] between 8:00 A.M and 5:00 P.M., Thursday through Thursday. If after 5:00 P.M., or on the weekend or holidays, please call [phone]. The information below provides you with the instructions and the list of medications you need to betaking following discharge from the hospital. If you have any questions, please ask before leaving.Please carry this letter with you when you see your doctor in the clinic. If you have questions, you can reach us at the numbers above. Brief summary of your inpatient care: The patient presented to [facility] on 04/27/2024 for scheduled mitral clip implantation. Patient tolerated the procedure well and remained at [facility] for observation. He was found to be fluid overloaded with mild dyspnea prior to the procedure, and he was started on IV diuretics with good urine output and resolution of shortness of breath. He remained stable throughout his hospital course and was discharged inpatient rehabilitation on 05/02/2024 Your doctors during this hospitalization included: Sergio Becerra DO - Level Vial Marker Diet: Heart healthy diet, 2 gram sodium diet, Low fat diet, High fiber diet Activity: no strenuous activity for 7 days, then as tolerated Driving: You may resume driving as able. Do not drive if you feel dizzy or if your symptoms recur. An appointment was requested with your Primary Care Physician (Zackery Cochran DO) within 7 day(s). An appointment was requested with Cardiology in 1 month. Future Appointments-next 60 days Date/Time Provider Specialty Dept Phone 2024 2:30 PM (Arrive by 2:15 PM) Adriel Gautam, HIRAL Cardiology [phone] 05/31/2024 3:00 PM ELECTRICAL ASSEMBLY SUPERVISOR 1 [facility] Cardiac Studies [phone] 06/06/2024 1:30 PM [facility] [phone] 06/06/2024 2:00 PM (Arrive by 1:45 PM) Herlinda Venegas PA-C Cardiology [phone] Follow up labs: BMP in 3-5 days MEDICATION CHANGES: START taking: aspirin Start taking on: May 03, 2024 Torsemide CHANGE how you take: metoprolol succinate XL (toPROL XL). Dose was increased to 100 mg daily STOP taking: Bumetanide 2 MG Tablet metOLazone 5 MG Tablet (Zaroxolyn) Do not use Motrin/Ibuprofen/Advil and other types of "NSAIDs" (nonsteroidal anti-inflammatory drugs) - "NSAIDs" make aspirin ineffective, can raise blood pressure, and can damage your kidneys. Try Tylenol for pain. Consult your pharmacist for questions about "NSAIDs". Please continue taking all other medications as previously prescribed. Special Instructions: Leg Puncture Site Care: You may shower, but do not take any baths, go in a hot tub or swim for 7 days. The hole in your leg artery is still healing and may be sore for a week. You may develop a large bruise, which will travel down your leg over the next few weeks. This is normal. If you have sudden pain or swelling or bleeding, call 911 and hold pressure on the area. If you notice worsening pain or swelling in the area that is not relieved by Tylenol or if you develop a fever over 101 degrees F you should call your stock cutter. If you have questions or are concerned about how your leg is healing, call the doctor who did the procedure. CARDIAC REHABILITATION: Following my procedure, I understand that participating in Cardiac Rehabilitation is important to assist in my recovery, improve how I feel, get me back to my normal activities and may prolong my life. I will be contacted by Cardiac Rehabilitation to schedule my first visit. Cardiovascular RISK FACTOR control Do not smoke or use tobacco products in any way! YOUR RISK FACTOR TREATMENT GOALS: Controlling the factors that cause arteries to form blockages will reduce your chance of having new blockages. Work with your health care providers to control your risk factors. If you have trouble reaching these goals then ask your health care provider to work with you further until they are controlled. Diabetes - In diabetics, hemoglobin A1C is a measure of the average blood sugar over the past 3 months. The goal is less than 7.0. Hypertension - Goal is less than 120/80. High cholesterol LDL cholesterol (bad cholesterol) - goal is less than 70 mg/dl. HDL cholesterol (good cholesterol) - goal is greater than 40 mg/dl in men and 50 mg/dl in women. Triglycerides (other blood fats that are especially elevated in diabetics and pre-diabetics) - goal is less than 150 mg/dl. Your Lipid Panel Results are: Results for orders placed or performed in visit on 07/14/16 LIPID PANEL Result Value Ref Range HOURS FASTING 12 hours Triglycerides 171 <200 mg/dL Cholesterol 235 (H) <200 mg/dL HDL Cholesterol 48 >39 mg/dL Cholesterol-HDL Ratio 4.9 LDL Cholesterol 153 (H) 0 - 129 mg/dL Tobacco - Tobacco is poison to your arteries. It will cause blockages. Continuing to smoke tobacco may lead to heart attacks, strokes, or leg amputation. You should avoid tobacco. Your goal is to notsmoke at all. Talk with your primary care provider about counseling and medications to help you stop smoking. Exercise - The [place] [employer] recommends walking 30 minutes a day most days of the week; if you have to lose weight you should walk 60-90 minutes a day. Remember that if you develop chestpain, you should stop what you are doing. Do not continue to exercise if you have chest pain. See your special activity instructions above. [place] weight - Your BMI (a measure of ideal body weight) is Body mass index is 33.23 kg/m.. Your BMI should be less than 25. Your waist size also predicts risk of heart attack: a woman's waist should be less than 35 inches and a man's waist less than 40. Maintaining your ideal body weight will help your heart, reduce blood pressure, blood sugar, and cholesterol, improve or help prevent diabetes, and improve or help prevent congestive heart failure. documented in this encounter Progress Notes * Luba Balbuena MD - 05/01/2024 11:39 AM EST PROGRESS NOTE - Cardiology [address] [address] Name: Kyler Mesa Location: [facility] [id number] Date: 05/01/2024 Time: 11:39 AM Date of admission: 04/27/2024 Hospital length of stay: 4 days SUBJECTIVE: Overnight Events: No acute events overnight Patient reports doing well this morning. He denies any shortness of breath, chest pain, or any other concerns or complaints at this time. All systems were reviewed, all pertinent findings were documented above, otherwise negative. OBJECTIVE: Vital Signs (Most Recent): Blood Pressure: 143/64 mmHg Last 12H: Most Recent Systolic BP Av mmHg Min: 113 mmHg Max: 143 mmHg Pulse: 80 Last 12H: Pulse Av Min: 80 Max: 80 Temperature: 36.4 C (97.5 F) Last 12H: Most Recent Temperature Av.1 C Min: 35.78 C Max: 36.39 C Respiratory Rate: 18 O2 Saturation: 100 % Vital Signs (Last 24 Hours): Pulse Av.7 Min: 79 Max: 92 No data recorded Most Recent Systolic BP Av.8 mmHg Min: 102 mmHg Max: 143 mmHg Most Recent Diastolic BP Av.5 mmHg Min: 64 mmHg Max: 73 mmHg Resp Av.5 Min: 16 Max: 19 Most Recent Temperature Av.2 C Min: 35.78 C Max: 36.67 C SpO2 Av % Min: 95 % Max: 100 % Intake & Output Summary (Last 24 hours): Intake/Output Summary (Last 24 hours) at 05/01/2024 1139 Last data filed at 05/01/2024 0400 Gross per 24 hour Intake 390 ml Output 2870 ml Net -2480 ml Net IO Since Admission: -5.2 L Wt Readings from Last 5 Encounters: 05/01/24 94.3 kg (208 lb) 04/21/24 102.3 kg (225 lb 8 oz) 04/20/24 99.8 kg (220 lb) 01/26/17 123.6 kg (272 lb 8 oz) 10/22/16 127.5 kg (281 lb) Height & Weight: Height: 167.6 cm (5' 6") (04/27/24 0616) Weight: 94.3 kg (208 lb) (05/01/24 0556) Weight change: Body mass index is 33.57 kg/m. Physical Examination: GENERAL: alert, not in acute distress CARDIO: regular rate and rhythm, no murmurs/rubs/gallops, equal pulses in all extremities PULM: Good respiratory effort, occasional wheezing, bibasilar crackles ABDOMEN: soft, non-tender to palpation, no peritoneal signs, no organomegaly or masses, intact peristalsis EXTREMITIES: Bilateral lower extremity edema 2+ NEURO: alert, oriented x3, moves all extremities spontaneously SKIN: warm, dry, intact Peripheral Line Right;Lower Arm 20 Gauge (Active) Number of days: 4 LINES / DRAINS / TUBES: LINES ALL Duration Peripheral Line Right;Lower Arm 20 Gauge 4 days Laboratory Values: reviewed. -- Brief labs below include the 7 most recent results over the past week. No results in the last 7 days - inpatent use only Lab results within last 7 days (see chart for full results) Units 05/01/24 0930 04/30/24 1932 04/30/24 0849 04/29/24 2003 04/29/24 1358 04/29/24 0755 04/28/24 2301 04/28/24 0817 SODIUM mmol/L 140 140 141 140 142 139 140 141 POTASSIUM mmol/L 3.9 3.0* 3.1* 4.2 4.0 3.7 3.9 3.3* CHLORIDE mmol/L 97* 96* 98 98 100 100 100 99 CO2 mmol/L 32 35* 32 31 31 30 30 33* EGFR mL/min 21* 20* 22* 19* 21* 20* 20* 21* BUN mg/dL 57* 55* 52* 53* 52* 52* 48* 44* CREATININE mg/dL 2.9* 3.0* 2.8* 3.1* 3.0* 3.0* 3.0* 2.9* GLUCOSE mg/dL 220* 148* 230* 117 108 92 102 137* CALCIUM mg/dL 10.2 10.1 10.2 10.2 10.0 10.0 9.6 9.8 Magnesium mg/dL 2.0 2.1 2.2 2.2 -- 2.2 2.2 2.4 ANION GAP mmol/L 11 9 11 11 11 9 10 9 Lab results within last 7 days (see chart for full results) Units 05/01/24 0930 04/30/24 0435 04/29/24 0356 04/28/24 0401 04/27/24 1400 04/27/24 0701 WBC K/uL 7.17 8.04 9.03 8.72 8.71 8.59 HGB g/dL 10.7* 11.2* 9.7* 10.1* 10.8* 11.5* HCT % 37.1* 38.4* 33.4* 34.2* 36.6* 38.9* PLT K/uL 148 160 139* 147 153 180 MCV fL 86.1 85.3 85.2 86.1 85.3 85.7 Lab results within last 7 days (see chart for full results) Units 04/27/24 0701 BNP, NT-Pro pg/mL 9,230* Lab results within last 7 days (see chart for full results) Units 04/27/24 0701 Prothrombin Time seconds 15.6* INR 1.2 Lab results within last 7 days (see chart for full results) Units 04/27/24 0701 Albumin g/dL 3.4* Protein g/dL 6.5 Bilirubin, Total mg/dL 1.3* Bilirubin, Direct mg/dL 0.6* AST U/L 25 ALT U/L 12 Alkaline Phosphatase U/L 79 Current Facility-Administered Medications: Chlorothiazide Sodium (Diuril) inj 500 mg, 500 mg, IV Push, Once, Ashly Sanchez MD Furosemide (Lasix) inj 160 mg, 160 mg, IV Push, Once, Luba Balbuena MD potassium chloride ER tab 30 mEq, 30 mEq, Oral, Once, Luba Balbuena MD aspirin chew tab 81 mg, 81 mg, Oral, Daily(AM), Luba Balbuena MD, 81 mg at 05/01/24 0821 Acetaminophen (Tylenol) tab 975 mg, 975 mg, Oral, Q6H, Luba Balbuena MD, 975 mg at 05/01/24 0649 Allopurinol (Zyloprim) tab 50 mg, 50 mg, Oral, Daily(AM), Luba Balbuena MD, 50 mg at 05/01/24 0821 metoprolol succinate XL (toPROL XL) tab 75 mg, 75 mg, Oral, HS, Luba Balbuena MD, 75 mg at 04/30/24 2043 Rivaroxaban (Xarelto) tab 15 mg, 15 mg, Oral, Daily 1700, Luba Balbuena MD, 15 mg at 04/30/24 1716 sodium chloride 0.9 % flush peripheral shahab 3 mL, 3 mL, IV Push, Q8H, Luba Balbuena MD, 3 mL at 05/01/24 0640 Tamoxifen Citrate (Nolvadex) tab 20 mg, 20 mg, Oral, Daily(AM), Luba Balbuena MD, 20 mg at 05/01/24 0821 traMADol (Ultram) tab 50 mg, 50 mg, Oral, Q12H PRN, Luba Balbuena MD ASSESSMENT/PLAN: Principal Problem: S/P mitral valve clip implantation (POA: Unknown) Active Problems: HTN, goal below 140/90 (POA: Yes) Sleep apnea (POA: Yes) S/P aortic valve replacement (POA: Yes) Dyslipidemia, goal LDL below 100 (POA: Yes) CKD (chronic kidney disease) stage 4, GFR 15-29 ml/min (HCC) (POA: Unknown) Resolved Problems: * No resolved hospital problems. 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 He initially presented to the procedure with shortness of breath and evidence of acute on chronic heart failure exacerbation with a DEONNA on CKD. He has been diuresed aggressively with improvement, however he remains hypervolemic at this time. Plan to continue diurese and discharge tomorrow Repeat IV lasix 160 mg Strict I&Os Follow-up on electrolytes levels and replete as needed Once euvolemic then plan to d/c to inpatient rehab History of paroxysmal AFib Continue ToprolXL 75 mg/day Continue RIGHT OF WAY BUYER Xarelto Chronic Conditions: Gout: Continue RIGHT OF WAY BUYER allopurinol Gynecomastia: Continue RIGHT OF WAY BUYER tamoxifen Orthostatic hypotension: Hold RIGHT OF WAY BUYER midodrine FIFI: Continue CPAP HS Misc: Diet: Heart healthy diet with fluid restriction of 1 L daily Bowel Regimen: Not indicated at this time Last Bowel Movement: 04/30/24 (04/30/24 1800) Stool Description: Medium (04/30/24 1800) Sleep: No sleep protocol ordered ; using CPAP Talavera: Not indicated at this time PT/OT: Evaluated GI prophylaxis: Not indicated at this time VTE Prophylaxis: Xarelto as above Code Status: Full code Anticipated Discharge: 1-2 days LINES / DRAINS / TUBES: LINES ALL Duration Peripheral Line Right;Lower Arm 20 Gauge 4 days List of services consulted/following: CARE MANAGEMENT CONSULT IP ADULT PHYSICAL THERAPY CONSULT IP ADULT OCCUPATIONAL THERAPY CONSULT IP Luba Balbuena MD Resident Physician Patient was discussed with Tractor Engine Assembler Dr. Sanchez and attending physician, Sergio Becerra DO This chart was completed in part utilizing [employer] Speech Voice Recognition Software. Grammatical errors, random word insertions, pronoun errors, and incomplete sentences are an occasional consequence of this system due to software limitations, ambient noise, and hardware issues. Any formal questions or concerns about the content, text, or information contained within the body of this dictation should be directly addressed to the provider for clarification. Cosigned by Sergio Becerra DO at 05/01/2024 11:44 AM EST Associated attestation - Sergio Becerra DO - 05/01/2024 11:44 AM EST I saw and evaluated the patient today. I have reviewed the resident/fellow physician note and agree. Volume status much improved. Feel he could benefit from another day of aggressive IV diuresis before transitioning to PO diuretics. Will again give diuril and Lasix IV today. Anticipate should be medically optimized in next 24 hours for d/c to rehab * Sergio Becerra, DO - 04/30/2024 8:06 AM EST PROGRESS NOTE - Cardiology [facility] [place]-[address] [id number] Name: Kyler Mesa Location: [facility] Date: 04/30/2024 Time: 8:06 AM Date of admission: 04/27/2024 Hospital length of stay: 3 days SUBJECTIVE: Overnight Events: None Doing well this AM. Responded well to IV diuresis yesterday and overnight. Slept okay. No chest pain or dyspnea. All systems were reviewed, all pertinent findings were documented above, otherwise negative. OBJECTIVE: Vital Signs (Most Recent): Blood Pressure: 127/68 mmHg Last 12H: Most Recent Systolic BP Av mmHg Min: 97 mmHg Max: 127 mmHg Pulse: 79 Last 12H: Pulse Av Min: 79 Max: 95 Temperature: 36.4 C (97.5 F) Last 12H: Most Recent Temperature Av.4 C Min: 36.39 C Max: 36.39 C Respiratory Rate: 20 O2 Saturation: 100 % Vital Signs (Last 24 Hours): Pulse Av.6 Min: 79 Max: 95 No data recorded Most Recent Systolic BP Av.3 mmHg Min: 91 mmHg Max: 127 mmHg Most Recent Diastolic BP Av mmHg Min: 64 mmHg Max: 87 mmHg Resp Av.5 Min: 15 Max: 20 Most Recent Temperature Av.4 C Min: 36.17 C Max: 36.67 C SpO2 Av.5 % Min: 87 % Max: 100 % Intake & Output Summary (Last 24 hours): Intake/Output Summary (Last 24 hours) at 04/30/2024 0806 Last data filed at 04/30/2024 0639 Gross per 24 hour Intake 860 ml Output 4000 ml Net -3140 ml Net IO Since Admission: -5.2 L Wt Readings from Last 5 Encounters: 04/27/24 98 kg (216 lb) 04/21/24 102.3 kg (225 lb 8 oz) 04/20/24 99.8 kg (220 lb) 01/26/17 123.6 kg (272 lb 8 oz) 10/22/16 127.5 kg (281 lb) Height & Weight: Height: 167.6 cm (5' 6") (04/27/24 06) Weight: 98 kg (216 lb) (04/27/24615) Weight change: Body mass index is 34.86 kg/m. Physical Examination: GENERAL: Alert, not in acute distress NECK: Noticeable JVD CARDIO: Irregularly irregular and tachycardic PULM: good respiratory effort, mildly decreased right sided breath sounds ABDOMEN: soft, non-tender to palpation, no peritoneal signs, no organomegaly or masses, intact peristalsis EXTREMITIES: 2-3+ bilateral LE edema to knees NEURO: alert, oriented x3, moves all extremities spontaneously SKIN: warm, dry, intact Peripheral Line Right;Lower Arm 20 Gauge (Active) Number of days: 3 LINES / DRAINS / TUBES: LINES ALL Duration Peripheral Line Right;Lower Arm 20 Gauge 3 days Laboratory Values: reviewed. -- Brief labs below include the 7 most recent results over the past week. No results in the last 7 days - inpatent use only Lab results within last 7 days (see chart for full results) Units 04/29/24 2003 04/29/24 1358 04/29/24 0755 04/28/24 2301 04/28/24 0817 04/27/24 1959 04/27/24 1400 SODIUM mmol/L 140 142 139 140 141 140 140 POTASSIUM mmol/L 4.2 4.0 3.7 3.9 3.3* 4.1 3.1* CHLORIDE mmol/L 98 100 100 100 99 99 100 CO2 mmol/L 31 31 30 30 33* 29 27 EGFR mL/min 19* 21* 20* 20* 21* 22* 23* BUN mg/dL 53* 52* 52* 48* 44* 43* 41* CREATININE mg/dL 3.1* 3.0* 3.0* 3.0* 2.9* 2.8* 2.7* GLUCOSE mg/dL 117 108 92 102 137* 280* 132* CALCIUM mg/dL 10.2 10.0 10.0 9.6 9.8 9.7 9.5 Magnesium mg/dL 2.2 -- 2.2 2.2 2.4 2.3 2.4 ANION GAP mmol/L 11 11 9 10 9 12 13 Lab results within last 7 days (see chart for full results) Units 04/30/24 0435 04/29/24 0356 04/28/24 0401 04/27/24 1400 04/27/24 0701 WBC K/uL 8.04 9.03 8.72 8.71 8.59 HGB g/dL 11.2* 9.7* 10.1* 10.8* 11.5* HCT % 38.4* 33.4* 34.2* 36.6* 38.9* PLT K/uL 160 139* 147 153 180 MCV fL 85.3 85.2 86.1 85.3 85.7 Lab results within last 7 days (see chart for full results) Units 04/27/24 0701 BNP, NT-Pro pg/mL 9,230* Lab results within last 7 days (see chart for full results) Units 04/27/24 0701 Prothrombin Time seconds 15.6* INR 1.2 Lab results within last 7 days (see chart for full results) Units 04/27/24 0701 Albumin g/dL 3.4* Protein g/dL 6.5 Bilirubin, Total mg/dL 1.3* Bilirubin, Direct mg/dL 0.6* AST U/L 25 ALT U/L 12 Alkaline Phosphatase U/L 79 Current Facility-Administered Medications: aspirin chew tab 81 mg, 81 mg, Oral, Daily(AM), Luba Balbuena MD, 81 mg at 04/29/24 0811 dextrose 50% inj 25 mL, 25 mL, IV Push, PRN, Luba Balbuena MD dextrose 50% inj 50 mL, 50 mL, IV Push, PRNEsha Neria, MD glucagon (Glucagen) inj 1 mg, 1 mg, Intramuscular, PRNEsha Neria, MD Glucose (Glutose 15) 40 % gel 15 g of glucose, 15 g of glucose, Oral, PRNEsha Neria, MD Glucose (Glutose 15) 40 % gel 30 g of glucose, 30 g of glucose, Oral, PRNEsha Neria, MD glucose chew tab 16 g, 16 g, Oral, PRN, Luba Balbuena MD insulin aspart (NovoLOG) inj, , Subcutaneous, Q6H, Luba Balbuena MD, 3 Units at 04/28/24 1232 Acetaminophen (Tylenol) tab 975 mg, 975 mg, Oral, Q6H, Luba Balbuena MD, 975 mg at 04/29/24 1755 Allopurinol (Zyloprim) tab 50 mg, 50 mg, Oral, Daily(AM), Luba Balbuean MD, 50 mg at 04/29/24 0811 metoprolol succinate XL (toPROL XL) tab 75 mg, 75 mg, Oral, HS, Luba Balbuena MD, 75 mg at 04/29/24 215 midodrine HCl (Proamatine) tab 10 mg, 10 mg, Oral, TID(AM/NOON/HS), Luba Balbuena MD, 10 mg at 04/29/24 215 Rivaroxaban (Xarelto) tab 15 mg, 15 mg, Oral, Daily 1700, Luba Balbuena MD, 15 mg at 04/29/24 175 sodium chloride 0.9 % flush peripheral shahab 3 mL, 3 mL, IV Push, Q8H, Luba Balbuena MD, 3 mL at 04/29/24 215 Tamoxifen Citrate (Nolvadex) tab 20 mg, 20 mg, Oral, Daily(AM), Luba Balbuena MD, 20 mg at 04/29/24 0811 traMADol (Ultram) tab 50 mg, 50 mg, Oral, Q12H PRN, Luba Balbuena MD ASSESSMENT/PLAN: Principal Problem: S/P mitral valve clip implantation (POA: Unknown) Active Problems: HTN, goal below 140/90 (POA: Yes) Sleep apnea (POA: Yes) S/P aortic valve replacement (POA: Yes) Dyslipidemia, goal LDL below 100 (POA: Yes) CKD (chronic kidney disease) stage 4, GFR 15-29 ml/min ([facility]) (POA: Unknown) Resolved Problems: * No resolved hospital problems. 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 He initially presented with mild dyspnea and noticeable hypervolemia and was given IV Lasix twice with a good urine output. However, he has daily net output remains mildly negative and he is still hypervolemic. Creatinine level rising above baseline, at around 3. Plan to continue diuresing and optimize before discharge Responded well to IV diuresis yesterday -> remains hypervolemic Continue w/ IV lasix 160 mg BID Once euvolemic then plan to d/c to inpatient rehab History of paroxysmal AFib Continue ToprolXL 75 mg/day Continue RIGHT OF WAY BUYER Xarelto Chronic Conditions: Gout: Continue RIGHT OF WAY BUYER allopurinol Gynecomastia: Continue RIGHT OF WAY BUYER tamoxifen Orthostatic hypotension: Hold RIGHT OF WAY BUYER midodrine FIFI: Continue CPAP HS Misc: Diet: Heart healthy diet with fluid restriction of 1 L daily Bowel Regimen: Not indicated at this time Last Bowel Movement: 04/28/24 (04/28/24 1300) Stool Description: Small;Formed (04/28/24 0900) Sleep: No sleep protocol ordered ; using CPAP Talavera: Not indicated at this time PT/OT: Evaluated GI prophylaxis: Not indicated at this time VTE Prophylaxis: Xarelto as above Code Status: Full code Anticipated Discharge: 1-2 days LINES / DRAINS / TUBES: LINES ALL Duration Peripheral Line Right;Lower Arm 20 Gauge 3 days List of services consulted/following: CARE MANAGEMENT CONSULT IP ADULT PHYSICAL THERAPY CONSULT IP ADULT OCCUPATIONAL THERAPY CONSULT IP * Luba Balbuena MD - 04/29/2024 11:14 AM EST PROGRESS NOTE - Cardiology [facility] [place]-[address] [address] Name: Kyler Mesa Location: [facility] Date: 04/29/2024 Time: 11:14 AM Date of admission: 04/27/2024 Hospital length of stay: 2 days SUBJECTIVE: Overnight Events: Creatinine worsened overnight. Patient was seen and examined at bedside this morning. He reports feeling well with no issues falling or maintaining sleep overnight. He denies shortness or breath, palpitation, chest pain, or any other concerns or complaints at this time. All systems were reviewed, all pertinent findings were documented above, otherwise negative. OBJECTIVE: Vital Signs (Most Recent): Blood Pressure: 100/64 mmHg Last 12H: Most Recent Systolic BP Av.8 mmHg Min: 91 mmHg Max: 130 mmHg Pulse: 84 Last 12H: Pulse Av.5 Min: 77 Max: 103 Temperature: 36.5 C (97.7 F) Last 12H: Most Recent Temperature Av.2 C Min: 35.78 C Max: 36.5 C Respiratory Rate: 18 O2 Saturation: 100 % Vital Signs (Last 24 Hours): Pulse Av.4 Min: 77 Max: 103 No data recorded Most Recent Systolic BP Av.4 mmHg Min: 74 mmHg Max: 130 mmHg Most Recent Diastolic BP Av.4 mmHg Min: 50 mmHg Max: 72 mmHg Resp Av.5 Min: 15 Max: 25 Most Recent Temperature Av.1 C Min: 35.78 C Max: 36.5 C SpO2 Av.1 % Min: 96 % Max: 100 % Intake & Output Summary (Last 24 hours): Intake/Output Summary (Last 24 hours) at 04/29/2024 1114 Last data filed at 04/29/2024 0900 Gross per 24 hour Intake 1200 ml Output 1590 ml Net -390 ml Net IO Since Admission: -1,580 mL [04/28/24 0745] Height & Weight: Height: 167.6 cm (5' 6") (04/27/24615) Weight: 98 kg (216 lb) (04/27/24615) Weight change: Body mass index is 34.86 kg/m. Physical Examination: GENERAL: Alert, not in acute distress NECK: Noticeable JVD CARDIO: Irregularly irregular and tachycardic PULM: good respiratory effort, mildly decreased right sided breath sounds ABDOMEN: soft, non-tender to palpation, no peritoneal signs, no organomegaly or masses, intact peristalsis EXTREMITIES: Bilateral lower extremity edema 3+ NEURO: alert, oriented x3, moves all extremities spontaneously SKIN: warm, dry, intact Peripheral Line Right;Lower Arm 20 Gauge (Active) Number of days: 2 LINES / DRAINS / TUBES: LINES ALL Duration Peripheral Line Right;Lower Arm 20 Gauge 2 days Laboratory Values: reviewed. -- Brief labs below include the 7 most recent results over the past week. No results in the last 7 days - inpatent use only Lab results within last 7 days (see chart for full results) Units 04/29/24 0755 04/28/24 2301 04/28/24 0817 04/27/24 1959 04/27/24 1400 04/27/24 0701 SODIUM mmol/L 139 140 141 140 140 141 POTASSIUM mmol/L 3.7 3.9 3.3* 4.1 3.1* 3.2* CHLORIDE mmol/L 100 100 99 99 100 98 CO2 mmol/L 30 30 33* 29 27 31 EGFR mL/min 20* 20* 21* 22* 23* 22* BUN mg/dL 52* 48* 44* 43* 41* 42* CREATININE mg/dL 3.0* 3.0* 2.9* 2.8* 2.7* 2.8* GLUCOSE mg/dL 92 102 137* 280* 132* 102 CALCIUM mg/dL 10.0 9.6 9.8 9.7 9.5 10.1 Magnesium mg/dL 2.2 2.2 2.4 2.3 2.4 -- ANION GAP mmol/L 9 10 9 12 13 12 Lab results within last 7 days (see chart for full results) Units 04/29/24 0356 04/28/24 0401 04/27/24 1400 04/27/24 0701 WBC K/uL 9.03 8.72 8.71 8.59 HGB g/dL 9.7* 10.1* 10.8* 11.5* HCT % 33.4* 34.2* 36.6* 38.9* PLT K/uL 139* 147 153 180 MCV fL 85.2 86.1 85.3 85.7 Lab results within last 7 days (see chart for full results) Units 04/27/24 0701 BNP, NT-Pro pg/mL 9,230* Lab results within last 7 days (see chart for full results) Units 04/27/24 0701 Prothrombin Time seconds 15.6* INR 1.2 Lab results within last 7 days (see chart for full results) Units 04/27/24 0701 Albumin g/dL 3.4* Protein g/dL 6.5 Bilirubin, Total mg/dL 1.3* Bilirubin, Direct mg/dL 0.6* AST U/L 25 ALT U/L 12 Alkaline Phosphatase U/L 79 No results in the last 7 days - inpatent use only Cultures: reviewed. No results in the last 7 days - inpatent use only Recent Cultures (2 Weeks) No lab values to display. Radiographic Studies: reviewed. XR CHEST 1 VIEW Result Date: 04/28/2024 IMPRESSION 1. Stable moderately enlarged cardiac silhouette. 2. Stable small right pleural effusion. Right lung base ground-glass opacities are again noted which may represent atelectasis. XR CHEST 1 VIEW Result Date: 04/27/2024 IMPRESSION Lines/Tubes: None. Lungs/Pleura: Mild pulmonary edema with small right pleural effusion.Minimal bibasilar atelectasis. No pneumothorax. Heart/Mediastinum: Cardiomediastinal silhouette is enlarged. Status post aortic valve replacement and mitral clips. Current Facility-Administered Medications: aspirin chew tab 81 mg, 81 mg, Oral, Daily(AM), Luba Balbuena MD, 81 mg at 04/29/24 0811 dextrose 50% inj 25 mL, 25 mL, IV Push, PRN, Luba Balbuena MD dextrose 50% inj 50 mL, 50 mL, IV Push, PRN, Luba Balbuena MD glucagon (Glucagen) inj 1 mg, 1 mg, Intramuscular, PRN, Luba Balbuena MD Glucose (Glutose 15) 40 % gel 15 g of glucose, 15 g of glucose, Oral, PRN, Luba Balbuena MD Glucose (Glutose 15) 40 % gel 30 g of glucose, 30 g of glucose, Oral, PRN, Luba Balbuena MD glucose chew tab 16 g, 16 g, Oral, PRN, Luba Balbuena MD insulin aspart (NovoLOG) inj, , Subcutaneous, Q6H, Luba Balbuena MD, 3 Units at 04/28/24 1232 Acetaminophen (Tylenol) tab 975 mg, 975 mg, Oral, Q6H, Luba Balbuena MD, 975 mg at 04/29/24 0640 Allopurinol (Zyloprim) tab 50 mg, 50 mg, Oral, Daily(AM), Luba Balbuena MD, 50 mg at 04/29/24 0811 metoprolol succinate XL (toPROL XL) tab 75 mg, 75 mg, Oral, HS, Luba Balbuena MD, 75 mg at 04/28/24 2147 midodrine HCl (Proamatine) tab 10 mg, 10 mg, Oral, TID(AM/NOON/HS), Luba Balbuena MD, 10 mg at 04/29/24 0811 Rivaroxaban (Xarelto) tab 15 mg, 15 mg, Oral, Daily 1700, Luba Balbuena MD, 15 mg at 04/28/24 1816 sodium chloride 0.9 % flush peripheral shahab 3 mL, 3 mL, IV Push, Q8H, Luba Balbuena MD, 3 mL at 04/29/24 0600 Tamoxifen Citrate (Nolvadex) tab 20 mg, 20 mg, Oral, Daily(AM), Luba Balbuena MD, 20 mg at 04/29/24 0811 traMADol (Ultram) tab 50 mg, 50 mg, Oral, Q12H PRN, Luba Balbuena MD ASSESSMENT/PLAN: Principal Problem: S/P mitral valve clip implantation (POA: Unknown) Active Problems: HTN, goal below 140/90 (POA: Yes) Sleep apnea (POA: Yes) S/P aortic valve replacement (POA: Yes) Dyslipidemia, goal LDL below 100 (POA: Yes) CKD (chronic kidney disease) stage 4, GFR 15-29 ml/min ([facility]) (POA: Unknown) Resolved Problems: * No resolved hospital problems. * POA = Present On Admission This is an 83 years old male with a pertinent history of severe symptomatic mitral regurgitation, who was admitted following mitral valve clip implantation on 04/27/2024, hospital course complicated by DEONNA on CKD S/p mitral valve clip implantation Hx of HFmrEF, LVEF 40% Hypervolemia DEONNA on CKD IV Patient is doing overall well postprocedure with no evidence of acute complications on postprocedural chest x-ray and echocardiogram. He initially presented with mild dyspnea and noticeable hypervolemia and was given IV Lasix twice with a good urine output. However, he has daily net output remains mildly negative and he is still hypervolemic. Creatinine level rising above baseline, at around 3. Plan to continue diuresing and optimize before discharge Give 1 time Lasix 160 mg IV and follow-up with fluid status and BMP this afternoon Fluid restrictions. 1 L daily Continue to monitor I/Os Continue to monitor postop Plan to discharge to inpatient rehab History of paroxysmal AFib Patient remains in AFib, around 90-100 beats per minute. Continue RIGHT OF WAY BUYER metoprolol 75 mg Can consider increased RIGHT OF WAY BUYER dose on discharge Continue RIGHT OF WAY BUYER Xarelto Chronic Conditions: Gout: Continue RIGHT OF WAY BUYER allopurinol Gynecomastia: Continue RIGHT OF WAY BUYER tamoxifen Orthostatic hypotension: Hold RIGHT OF WAY BUYER midodrine FIFI: Continue CPAP HS Misc: Diet: Heart healthy diet with fluid restriction of 1 L daily Bowel Regimen: Not indicated at this time Last Bowel Movement: 04/28/24 (04/28/24 1300) Stool Description: Small;Formed (04/28/24 0900) Sleep: No sleep protocol ordered Talavera: Not indicated at this time PT/OT: Evaluated GI prophylaxis: Not indicated at this time VTE Prophylaxis: Xarelto as above Code Status: Full code Anticipated Discharge: 1-2 days LINES / DRAINS / TUBES: LINES ALL Duration Peripheral Line Right;Lower Arm 20 Gauge 2 days List of services consulted/following: CARE MANAGEMENT CONSULT IP ADULT PHYSICAL THERAPY CONSULT IP ADULT OCCUPATIONAL THERAPY CONSULT IP Luba Balbuena MD Resident Physician Patient was discussed with T[employer] Engine Assembler Dr. Sanchez and attending physician, Sergio Becerra DO This chart was completed in part utilizing [employer] Speech Voice Recognition Software. Grammatical errors, random word insertions, pronoun errors, and incomplete sentences are an occasional consequence of this system due to software limitations, ambient noise, and hardware issues. Any formal questions or concerns about the content, text, or information contained within the body of this dictation should be directly addressed to the provider for clarification. Cosigned by Sergio Becerra DO at 04/29/2024 12:35 PM EST Associated attestation - Mariam Sergio Brock DO - 04/29/2024 12:35 PM EST I saw and evaluated the patient today. I have reviewed the resident/fellow physician note and agree. Remains hypervolemic and requires further iV diuresis. Will give increased dose of IV lasix for effect. If minimally responsive then may need continuous infusion. Hold off d/c to rehab today. Possible d/c over weekend on Thursday after volume status optimized and renal function proves to be stable. * Luba Balbuena MD - 04/28/2024 10:39 AM EST PROGRESS NOTE - Cardiology [address] [address] Name: Kyler Mesa Location: [address] Date: 04/28/2024 Time: 11:19 AM Date of admission: 04/27/2024 Hospital length of stay: 1 days SUBJECTIVE: Overnight Events: No acute events overnight. Patient seen and examined at bedside. Patient reports feeling well this morning. He reports no issues falling or maintaining sleep overnight. Denies shortness or breath, palpitation, chest pain, or any other concerns or complaints at this time. All systems were reviewed, all pertinent findings were documented above, otherwise negative. OBJECTIVE: Vital Signs (Most Recent): Blood Pressure: 114/68 mmHg Last 12H: Most Recent Systolic BP Av mmHg Min: 114 mmHg Max: 120 mmHg Pulse: 104 Last 12H: Pulse Av Min: 84 Max: 104 Temperature: 36.4 C (97.5 F) Last 12H: Most Recent Temperature Av.4 C Min: 36.33 C Max: 36.39 C Respiratory Rate: 18 O2 Saturation: 99 % Vital Signs (Last 24 Hours): Pulse Av.5 Min: 82 Max: 115 No data recorded Most Recent Systolic BP Av.9 mmHg Min: 91 mmHg Max: 120 mmHg Most Recent Diastolic BP Av.6 mmHg Min: 53 mmHg Max: 101 mmHg Resp Av.5 Min: 15 Max: 25 Most Recent Temperature Av.4 C Min: 36.33 C Max: 36.61 C SpO2 Av.2 % Min: 92 % Max: 100 % Intake & Output Summary (Last 24 hours): Intake/Output Summary (Last 24 hours) at 04/28/2024 1119 Last data filed at 04/28/2024 0900 Gross per 24 hour Intake 240 ml Output 2725 ml Net -2485 ml Net IO Since Admission: -1,580 mL [04/28/24 0745] Height & Weight: Height: 167.6 cm (5' 6") (04/27/24615) Weight: 98 kg (216 lb) (04/27/24615) Weight change: Body mass index is 34.86 kg/m. Physical Examination: General: Patient in no apparent distress HEENT: normocephalic, atraumatic Heart: Irregularly irregular rhythm, tachycardic; no murmurs, rubs or gallops. Pulmonary: Lungs clear to auscultation bilaterally; no wheezes, rhonchi or crackles. Abdomen: Soft, non-tender, non-distended. Normal bowel sounds and no rebound or guarding. MSK: Patient able to ambulate; Gross motor function intact Extremities: Bilateral lower extremity pitting edema, +2 Skin: [place], warm, no wounds or lesions present. Neuro: AAOx3. No gross motor or sensory deficits. Psych: Appropriate mood and affect Peripheral Line Right;Lower Arm 20 Gauge (Active) Number of days: 1 LINES / DRAINS / TUBES: LINES ALL Duration Peripheral Line Right;Lower Arm 20 Gauge 1 day Laboratory Values: reviewed. -- Brief labs below include the 7 most recent results over the past week. No results in the last 7 days - inpatent use only Lab results within last 7 days (see chart for full results) Units 04/28/24 0817 04/27/24 1959 04/27/24 1400 04/27/24 0701 SODIUM mmol/L 141 140 140 141 POTASSIUM mmol/L 3.3* 4.1 3.1* 3.2* CHLORIDE mmol/L 99 99 100 98 CO2 mmol/L 33* 29 27 31 EGFR mL/min 21* 22* 23* 22* BUN mg/dL 44* 43* 41* 42* CREATININE mg/dL 2.9* 2.8* 2.7* 2.8* GLUCOSE mg/dL 137* 280* 132* 102 CALCIUM mg/dL 9.8 9.7 9.5 10.1 Magnesium mg/dL 2.4 2.3 2.4 -- ANION GAP mmol/L 9 12 13 12 Lab results within last 7 days (see chart for full results) Units 04/28/24 0401 04/27/24 1400 04/27/24 0701 WBC K/uL 8.72 8.71 8.59 HGB g/dL 10.1* 10.8* 11.5* HCT % 34.2* 36.6* 38.9* PLT K/uL 147 153 180 MCV fL 86.1 85.3 85.7 Lab results within last 7 days (see chart for full results) Units 04/27/24 0701 BNP, NT-Pro pg/mL 9,230* Lab results within last 7 days (see chart for full results) Units 04/27/24 0701 Prothrombin Time seconds 15.6* INR 1.2 Lab results within last 7 days (see chart for full results) Units 04/27/24 0701 Albumin g/dL 3.4* Protein g/dL 6.5 Bilirubin, Total mg/dL 1.3* Bilirubin, Direct mg/dL 0.6* AST U/L 25 ALT U/L 12 Alkaline Phosphatase U/L 79 No results in the last 7 days - inpatent use only Cultures: reviewed. No results in the last 7 days - inpatent use only Recent Cultures (2 Weeks) No lab values to display. Radiographic Studies: reviewed. XR CHEST 1 VIEW Result Date: 04/28/2024 IMPRESSION 1. Stable moderately enlarged cardiac silhouette. 2. Stable small right pleural effusion. Right lung base ground-glass opacities are again noted which may represent atelectasis. XR CHEST 1 VIEW Result Date: 04/27/2024 IMPRESSION Lines/Tubes: None. Lungs/Pleura: Mild pulmonary edema with small right pleural effusion.Minimal bibasilar atelectasis. No pneumothorax. Heart/Mediastinum: Cardiomediastinal silhouette is enlarged. Status post aortic valve replacement and mitral clips. Current Facility-Administered Medications: aspirin chew tab 81 mg, 81 mg, Oral, Daily(AM), Luba Balbuena MD dextrose 50% inj 25 mL, 25 mL, IV Push, PRN, Luba Balbuena MD dextrose 50% inj 50 mL, 50 mL, IV Push, PRN, Luba Balbuena MD Furosemide (Lasix) inj 80 mg, 80 mg, IV Push, Once, Ashly Sanchez MD glucagon (Glucagen) inj 1 mg, 1 mg, Intramuscular, PRN, Luba Balbuena MD Glucose (Glutose 15) 40 % gel 15 g of glucose, 15 g of glucose, Oral, PRN, Luba Balbuena MD Glucose (Glutose 15) 40 % gel 30 g of glucose, 30 g of glucose, Oral, PRN, Luba Balbuena MD glucose chew tab 16 g, 16 g, Oral, PRN, Luba Balbuena MD insulin aspart (NovoLOG) inj, , Subcutaneous, Q6H, Luba Balbuena MD potassium chloride ER tab 40 mEq, 40 mEq, Oral, Q2H, Luba Balbuena MD Acetaminophen (Tylenol) tab 975 mg, 975 mg, Oral, Q6H, Luba Balbuena MD, 975 mg at 04/28/24 0438 Allopurinol (Zyloprim) tab 50 mg, 50 mg, Oral, Daily(AM), Luba Balbuena MD, 50 mg at 04/28/24 0844 hEParin inj 5,000 Units, 5,000 Units, Subcutaneous, Q8H, Zackery Jefferson MD, 5,000 Units at 04/28/24 0458 metoprolol succinate XL (toPROL XL) tab 75 mg, 75 mg, Oral, HS, Luba Balbuena MD, 75 mg at 04/27/24 1711 midodrine HCl (Proamatine) tab 10 mg, 10 mg, Oral, TID(AM/NOON/HS), Luba Balbuena MD, 10 mg at 04/28/24 0845 Rivaroxaban (Xarelto) tab 15 mg, 15 mg, Oral, Daily 1700, Luba Balbuena MD sodium chloride 0.9 % flush peripheral shahab 3 mL, 3 mL, IV Push, Q8H, Luba Balbuena MD, 3 mL at 04/28/24 0451 Tamoxifen Citrate (Nolvadex) tab 20 mg, 20 mg, Oral, Daily(AM), Luba Balbuena MD, 20 mg at 04/28/24 0844 traMADol (Ultram) tab 50 mg, 50 mg, Oral, Q12H PRN, Luba Balbuena MD ASSESSMENT/PLAN: Principal Problem: S/P mitral valve clip implantation (POA: Unknown) Active Problems: HTN, goal below 140/90 (POA: Yes) Sleep apnea (POA: Yes) S/P aortic valve replacement (POA: Yes) Dyslipidemia, goal LDL below 100 (POA: Yes) CKD (chronic kidney disease) stage 4, GFR 15-29 ml/min ([facility]) (POA: Unknown) Resolved Problems: * No resolved hospital problems. 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 Chest x-ray with stable small right pleural effusion but otherwise no acute abnormalities. Follow-up echocardiogram with LVEFof 44% and diffuse hypokinesis with [id number] mitral regurgitation. The patient remains hypervolemic at this time, though he is making good urine. Give 1 time Lasix 80 mg IV Continue to monitor I/Os Continue to follow-up electrolytes Continue to monitor postop Attempting to arrange referral for rehab History of paroxysmal AFib Patient is currently in AFib, around 90-100 beats per minute Continue RIGHT OF WAY BUYER metoprolol 75 mg Can consider increased RIGHT OF [employer] BUYER dose if patient tolerates well IV diuretics today Restart RIGHT OF [employer] BUYER Xarelto today Hold RIGHT OF WAY BUYER bumetanide and metolazone for now Chronic Conditions: Gout: Continue RIGHT OF WAY BUYER allopurinol Gynecomastia: Continue RIGHT OF [employer] BUYER tamoxifen Orthostatic hypotension: Hold RIGHT OF WAY BUYER midodrine FIFI: Continue CPAP HS Misc: Diet: Low-salt diet Bowel Regimen: Not indicated at this time Last Bowel Movement: 04/28/24 (04/28/24 09) Stool Description: Small;Formed (04/28/24 09) Sleep: No sleep protocol ordered Talavera: Not indicated at this time PT/OT: Not indicated at this time GI prophylaxis: Not indicated at this time VTE Prophylaxis: Xarelto as above Code Status: Full code Anticipated Discharge: 1-2 days LINES / DRAINS / TUBES: LINES ALL Duration Peripheral Line Right;Lower Arm 20 Gauge 1 day List of services consulted/following: CARE MANAGEMENT CONSULT IP ADULT PHYSICAL THERAPY CONSULT IP ADULT OCCUPATIONAL THERAPY CONSULT IP Luba Balbuena MD Resident Physician Patient was discussed with Tractor Engine Assembler Dr. Sanchez and attending physician, Zackery Jefferson MD This chart was completed in part utilizing [employer] Speech Voice Recognition Software. Grammatical errors, random word insertions, pronoun errors, and incomplete sentences are an occasional consequence of this system due to software limitations, ambient noise, and hardware issues. Any formal questions or concerns about the content, text, or information contained within the body of this dictation should be directly addressed to the provider for clarification. Cosigned by Zackery Jefferson MD at 04/28/2024 4:01 PM EST Associated attestation - Zackery Jefferson MD - 04/28/2024 4:01 PM EST I saw and evaluated the patient today. I have reviewed the resident/fellow physician note and agree. Mr Mesa had a good response to MitraClip. Feels as if his breathing is improved. Was up in a chair when we saw him. On exam, he still has an apical systolic murmur. And has a substantial amount of volume overload. Plan to diurese today. Awaiting placement. Likely in a rehab facility. Rasheeda Jefferson MD 04/28/2024 4:01 PM * Hamida Patel MD - 04/27/2024 4:38 PM EST Patient seen and examined pre procedure. The patient has been reporting significant increase in shortness of breath . NT pro BNP measured prior to the procedure was elevated at 9238 LAP measured during the procedure was elevated at 26 with v waves upto 52 Consistent with acute on chronic diastolic heart failure due to severe MR. Would treat with intravenous diuretics. Administered 100 mg IV lasix in the laborer cook house. Hamida Patel MD MPH Interventional Cardiology Pager: [phone] 04/27/24 4:39 PM documented in this encounter H&P Notes * Luba Balbuena MD - 04/27/2024 1:50 PM EST HISTORY AND PHYSICAL EXAMINATION - CARDIOLOGY [facility] [address] Name: Kyler Mesa Location: [facility]/ Date: 04/27/2024 Time: 1:50 PM Date of Admission: 04/27/2024 SUBJECTIVE: Presenting Problem: S/p mitral clip HPI: This is an 83 year old male with a history significant for minimal nonobstructive CAD by cath (2023) HTN, dyslipidemia, aortic valve stenosis, s/p bioprosthetic AVR, severe symptomatic mitral regurgitation, who presents following mitral clip procedure. Patient has been following in clinic with Dr. 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 Patient presented today to [facility] for planned mitral clip procedure. He completed the procedure successfully anddoing well postprocedure. At the time of my evaluation, patient reports feeling well without ongoing symptoms. Patient denies any associated chest pain, palpitations, dyspnea, cough, fevers, chills, nausea, vomitting, diarrhea, constipation, headaches, vision changes, and weakness. Patient wants to be FULL CODE at this time. PAST MEDICAL HISTORY: Past Medical History: Diagnosis Date Aortic valve stenosis 12/29/2002 s/p AVR Aortocoronary bypass status Atrial fibrillation (HCC) post-op after CABG, paroxysmal Cardiomegaly on CXR CKD (chronic kidney disease) Difficult Airway 04/04/2004 Dyslipidemia, goal LDL below 160 Hypercholesterolemia H/O left nephrectomy HTN, goal below 140/90 Hypertension Benign RACHELE (iron deficiency anemia) INFORMATION Morbid obesity INFORMATION Abnormal Adenosine Stress [employer] Mitral regurgitation FIFI on CPAP On CPAP for 5 years S/P aortic valve replacement with bioprosthetic valve 20 years ago, judah Tricuspid regurgitation PAST SURGICAL HISTORY: Past Surgical History: Procedure Laterality Date EGD, FLEXIBLE, DIAGNOSTIC 06/06/2013 ESOPHAGOGASTRODUODENOSCOPY (EGD), FLEXIBLE, TRANSORAL, DIAGNOSTIC performed by Braden Castellanos MD at ENDOSCOPY [facility] GASTRIC BYPASS FOR OBESITY 04.27.2003 Lap RYGB, EGD, LLBX and adhesiolysis- INJECT DX/THER SUBSTANCE INTERLAMINAR CERVICAL/THORACIC W IMAGE GUIDE 07/28/2022 INJECTION SPINE LUMBAR CERVICAL OR THORACIC performed by Edwin Burrows DO at OR [facility] KNEE ARTHROSCOPY, DIAGNOSTIC Knee Arthroscopy left REMOVAL OF LARGE STONE FROM KIDNEY via cysto.multiple--5 times REMOVE GALLBLADDER Cholecystectomy REMOVE LUMBAR SPINE LAMINA, 3+ SEGS 1991 HNP Excision REPLACEMENT AORTIC VALVE,NON-CORONARY SINUS 23 mm pericardial tissue valve UMBIL HERNIA REPAIR (INCARCERATED) AGE 5+YR FAMILY HISTORY: non-contributory Family History Problem Relation Name Age of Onset Hypertension Father Heart Disorder Father CAD onset 50's Cancer Grandmother (Maternal) Cancer Aunt (Unspecified) SOCIAL HISTORY: Social History Tobacco Use Smoking status: Never Smokeless tobacco: Never Substance Use Topics Alcohol use: No Drug use: No PRIOR TO ADMISSION MEDS: Current Outpatient Medications Medication Instructions Allopurinol (ZYLOPRIM) 50 mg, Daily(AM) AMOXICILLIN 500 MG PO CAPS takes before dental procedures Bumetanide 3 mg, Daily(AM) Calcitriol 0.25 MCG Oral Capsule (Rocaltrol) Take 2 Capsules by mouth in the morning. CPAP QHS cyclobenzaprine (FLEXERIL) 5 mg, BID PRN Docusate Sodium 100 MG Oral Capsule 1 Capsule, BID PRN Magnesium 250 mg, HS metOLazone 5 MG Oral Tablet (Zaroxolyn) Take 1 Tablet by mouth as needed (weight gain). metoprolol succinate XL (TOPROL XL) 75 mg, HS midodrine HCl (PROAMATINE) 10 mg, TID(AM/NOON/HS) Potassium Chloride Mikki ER 10 MEQ Oral Tablet Extended Release 20 mEq, BID (.AM/PM) Tamoxifen Citrate (NOLVADEX) 20 mg, Daily(AM) traMADol (ULTRAM) 50 mg, BID PRN Vitamin B-12 (CYANOCOBALAMIN) 1,000 mcg, [id number] Vitamin D3 2,000 Units, Daily(AM) Xarelto 15 mg, HS ALLERGIES: Iodinated contrast media and Iron Review of Systems: All systems were reviewed and documented in the HPI, otherwise negative. Objective CONSTITUTIONAL DATA / OBJECTIVE: Vital Signs (Most Recent): Blood Pressure: 111/85 mmHg Last 12H: Most Recent Systolic BP Av.2 mmHg Min: 96 mmHg Max: 121 mmHg Pulse: 105 Last 12H: Pulse Av.3 Min: 78 Max: 120 Temperature: 35.9 C (96.6 F) Last 12H: Most Recent Temperature Av.9 C Min: 35.89 C Max: 36 C Respiratory Rate: 20 O2 Saturation: 100 % Vital Signs (Last 24 Hours): Pulse Av.3 Min: 78 Max: 120 No data recorded Most Recent Systolic BP Av.2 mmHg Min: 96 mmHg Max: 121 mmHg Most Recent Diastolic BP Av.4 mmHg Min: 52 mmHg Max: 101 mmHg Resp Av.8 Min: 8 Max: 21 Most Recent Temperature Av.9 C Min: 35.89 C Max: 36 C SpO2 Av.6 % Min: 97 % Max: 100 % Intake & Output Summary (Last 24 hours): Intake/Output Summary (Last 24 hours) at 04/27/2024 1350 Last data filed at 04/27/2024 1032 Gross per 24 hour Intake 800 ml Output -- Net 800 ml Height & Weight: Height: 167.6 cm (5' 6") (04/27/24615) Weight: 98 kg (216 lb) (04/27/24615) Weight change: Body mass index is 34.86 kg/m. Physical Examination: General: Patient in no apparent distress. HEENT: normocephalic, atraumatic, pupils reactive to light bilaterally. Heart: Mildly tachycardic, irregularly irregular Pulmonary: Lungs clear to auscultation bilaterally; no wheezes, rhonchi or crackles. Abdomen: Soft, non-tender, non-distended. Normal bowel sounds and no rebound or guarding. MSK: Patient able to ambulate; Gross motor function intact. Extremities: Bilateral lower extremity edema 2+ Skin: [place], warm, no wounds or lesions present. Neuro: AAOx3. No gross motor or sensory deficits. Vascular: Palpable DP/PT pulses bilaterally . Psych: Appropriate mood and affect. Peripheral Line Right;Lower Arm 20 Gauge (Active) Number of days: 0 LINES / DRAINS / TUBES: LINES ALL Duration Arterial Line Right Radial <1 day Peripheral Line Right;Lower Arm 20 Gauge <1 day Laboratory Values: reviewed. -- Brief labs below include the 7 most recent results over the past week. Blood Gas: No results in the last 7 days - inpatent use only Chemistry Panel: Lab results within last 7 days (see chart for full results) Units 04/27/24 0701 SODIUM mmol/L 141 POTASSIUM mmol/L 3.2* CHLORIDE mmol/L 98 CO2 mmol/L 31 EGFR mL/min 22* BUN mg/dL 42* CREATININE mg/dL 2.8* GLUCOSE mg/dL 102 CALCIUM mg/dL 10.1 ANION GAP mmol/L 12 Complete Blood Count: Lab results within last 7 days (see chart for full results) Units 04/27/24 0701 WBC K/uL 8.59 HGB g/dL 11.5* HCT % 38.9* PLT K/uL 180 MCV fL 85.7 Cardiac Studies: Lab results within last 7 days (see chart for full results) Units 04/27/24 0701 BNP, NT-Pro pg/mL 9,230* Coagulation Studies: Lab results within last 7 days (see chart for full results) Units 04/27/24 0701 Prothrombin Time seconds 15.6* INR 1.2 Liver Function Panel: Lab results within last 7 days (see chart for full results) Units 04/27/24 0701 Albumin g/dL 3.4* Protein g/dL 6.5 Bilirubin, Total mg/dL 1.3* Bilirubin, Direct mg/dL 0.6* AST U/L 25 ALT U/L 12 Alkaline Phosphatase U/L 79 Infectious Studies: No results in the last 7 days - inpatent use only Cultures: reviewed. No results in the last 7 days - inpatent use only Recent Cultures (2 Weeks) No lab values to display. Radiographic Studies (last 72 hours): reviewed. No imaging results in the last 72 hours Assessment & Plan ASSESSMENT/PLAN: Principal Problem: S/P mitral valve clip implantation (POA: Unknown) Active Problems: HTN, goal below 140/90 (POA: Yes) Sleep apnea (POA: Yes) S/P aortic valve replacement (POA: Yes) Dyslipidemia, goal LDL below 100 (POA: Yes) Overview: Per Lipid Taxonomy. POA = Present On Admission This is an 83 years old male who presents post mitral valve clip implantation Severe mitral regurgitation, s/p mitral valve clip implantation 04/27/2024 Patient admitted after outpatient procedure. Post procedure CXR ordered. Monitor for widened mediastinum, pneumothorax, valve location/position, and pulmonary edema. Post procedure EKG ordered. Per protocol, any significant change in RI interval, QRS duration and rhythm will prompt a temporary pacemaker implantation. Patient may require ZioPatch upon discharge if patient develops new conduction disturbances that don't require a permanent pacemaker. Post procedure labs ordered. Echocardiogram ordered for postoperative day #1 (tomorrow). EKG ordered for postoperative day #1 (tomorrow). Continue to monitor on telemetry Systolic blood pressure goal < 160. If hypotensive be cautious with administration of IVF. Consider phenylephrine/norepinephrine infusion. Anticoagulation therapy: RIGHT OF WAY BUYER NOACs (apixaban/rivaroxaban/dabigatran) can be re-started 3-4 days post procedure. DVT Prophylaxis: Subq Heparin. Patient Activity: Patients must lay flat for six hours post-procedure (reverse trendelenburg is okay) and can sit up afterwards if there's no bleeding, with groin monitoring upon movement. Vital checks [id number] x4, [id number] x4, Q1H x4, then Q4H Neuro checks Q1H x6 Diet: Start with clear liquid diet and progress to a heart-healthy diet/consistent carb diet as tolerated (after six hours when safely able to sit up). Pain Control: Tylenol PRN Chronic Conditions: PAF: Continue RIGHT OF WAY BUYER Toprol 75 mg, hold RIGHT OF WAY BUYER Xarelto Gout: Continue RIGHT OF WAY BUYER allopurinol Gynecomastia: Continue RIGHT OF WAY BUYER tamoxifen CHF: Hold RIGHT OF WAY BUYER bumetanide, metolazone Orthostatic hypotension: Hold RIGHT OF WAY BUYER midodrine FIFI: Continue CPAP Misc: Diet: Heart healthy diet Bowel Regimen: Not indicated at this time Last Bowel Movement: 04/26/24 (04/27/24 0627) Sleep: No sleep protocol ordered Talavera: Not indicated at this time PT/OT: Not indicated at this april GI prophylaxis: Not indicated at this time VTE Prophylaxis: Heparin subQ Code Status: Full code Anticipated Discharge: 1-2 days List of services consulted/following: CARE MANAGEMENT CONSULT IP Patient will be discussed with Tractor Engine Assembler Dr. Sanchez and will be seen and examined by attending physician, MD Luba Ovalles MD Resident Physician This chart was completed in part utilizing [employer] Speech Voice Recognition Software. Grammatical errors, random word insertions, pronoun errors, and incomplete sentences are an occasional consequence of this system due to software limitations, ambient noise, and hardware issues. Any formal questions or concerns about the content, text, or information contained within the body of this dictation should be directly addressed to the provider for clarification. Cosigned by Zackery Jefferson MD at 04/27/2024 8:49 PM EST Associated attestation - Zackery Jefferson MD - 04/27/2024 8:49 PM EST I saw and evaluated the patient today. I have reviewed the resident/fellow physician note and agree. Rasheeda Jefferson MD 04/27/2024 8:49 PM * Bernabe Chicas Jr., CRNP - 04/27/2024 7:46 AM EST HISTORY & PHYSICAL INTERVAL NOTE - Cardiology Service [address] [address] History and Physical Update: Name: Kyler Mesa Location: CATH/Cath Date: 04/27/2024 Time: 7:46 AM DATE OF HISTORY AND PHYSICAL: 04/27/2024 REFERRED BY: Herlinda Venegas PA-C & STawanna Patel MD Chief Complaint: Mitral Valve Repair I have reviewed the H&P previously performed and examined the patient today. There are no new findings noted. Physical Examination: BP: 109 mmHg/70 mmHg (04/27/24604) Pulse: 108 (04/27/24625) Resp: 21 (04/27/24625) Temp: 36 C (04/27/24604) Temp Summary: Temp Min: 36 C (96.8 F) Max: 36 C (96.8 F) SpO2: 99 % (04/27/24604) O2 flow rate: 3 L/MIN (04/27/24625) Supplemental O2 Delivery: Nasal Cannula (04/27/24625) Cardiac: atrial fibrillation, Grade III-IV murmur LLSB radiates to axilla and xiphoid, gallops or rub, bilateral lower leg 2+ edema Lungs: normal respiratory effort, lungs clear to auscultation and percussion, breath sounds normal Right Radial pulse 2+ Left Radial pulse 2+ Right Femoral pulse 2+ Right Femoral Bruit no Right DP pulse 1+ Right PT pulse 1+ Left Femoral pulse 2+ Left Femoral Bruit no Left DP pulse 2+ Left PT pulse 1+ Anticoagulation: Yes - Xarelto: Last Dose Thursday04/24/2024 PM dose Labs reviewed as indicated below: Latest Reference Range & Units 04/27/24 07:01 BNP, NT-Pro <300 pg/mL 9,230 (H) SODIUM 135 - 146 mmol/L 141 POTASSIUM 3.5 - 5.1 mmol/L 3.2 (L) CHLORIDE 98 - 107 mmol/L 98 CO2 22 - 32 mmol/L 31 BUN 6 - 20 mg/dL 42 (H) CREATININE 0.6 - 1.2 mg/dL 2.8 (H) EGFR >=60 mL/min 22 (L) ANION GAP 7 - 15 mmol/L 12 GLUCOSE 70 - 120 mg/dL 102 CALCIUM 8.4 - 10.2 mg/dL 10.1 Protein 6.0 - 8.3 g/dL 6.5 INR 0.8 - 1.2 1.2 Prothrombin Time 11.6 - 15.2 seconds 15.6 (H) CBC Rpt ! WBC 4.00 - 10.80 K/uL 8.59 RBC 4.50 - 5.25 M/uL 4.54 HGB 14.0 - 16.8 g/dL 11.5 (L) HCT 40.0 - 48.4 % 38.9 (L) MCV 82.0 - 99.5 fL 85.7 MCH 27.0 - 34.0 pg 25.3 MCHC 32.0 - 36.0 g/dL 29.6 RDW 11.5 - 15.5 % 16.2 PLT 140 - 400 K/uL 180 MPV 6.6 - 11.1 fL 10.0 Albumin 3.8 - 5.0 g/dL 3.4 (L) AST 10 - 50 U/L 25 ALT 10 - 50 U/L 12 Alkaline Phosphatase 35 - 130 U/L 79 Bilirubin, Total <=1.2 mg/dL 1.3 (H) Bilirubin, Direct 0.0 - 0.3 mg/dL 0.6 (H) Allergy to iodinated contrast Cosigned by Hamida Patel MD at 04/27/2024 11:46 AM EST * Guicho Clement CRNP - 04/26/2024 9:08 AM EST Images from the original note were not included. Cardiology H&P The note below has been copied and pasted from an office visit with Herlinda Venegas PA-C and Hamida Patel MD MPH on 04/20/2024: I have reviewed the advanced practitioner's documentation on the date of service referenced in note, and I agree with, and take responsibility for the plan of care. 83 year old male with severe symptomatic MR Fatigue, SOBOE. Jan 2024--> no significant CAD. Bioprosthetic AVR 20 years ago at [facility] - peak velocity is 234 cm/s RAFFAELE showed 3+ MR with ruptured chords and partial anterior leaflet flail Moderate TR Creatinine: 2.4 Home O2. Surgical risk stratification and likely proceed to PRAFUL. Hamida Patel MD MPH Primary Level Vial Marker: Dr. Izquierdo at [facility] [place] Referred by: Dr. Izquierdo at [facility] [place] Cardiac Problems: Permanent atrial fibrillation s/p DCCV 12/2021 HFpEF Minimal CAD on cath 01/2024 Moderate to severe MR, partial flail, ruptured chordae on RAFFAELE 01/2024 Bioprosthetic AVR at [place] CKD s/p L nephrectomy Iron deficiency anemia Severe pulmonary hypertension Chronic hypoxic respiratory failure on 3L oxygen FIFI on CPAP HPI: Kyler Mesa is a 83 year old male being seen today in valve clinic for evaluation of mitral valve insufficiency. Here today accompanied by . States he has had worsening dyspnea on exertion for past year. Wears 3L of oxygen at baseline. Has edema that comes and goes. Worsening fatigue, sleeps most of the day. Denies chest pain, orthopnea, PND, dizziness, lightheadedness, syncope. No recent falls. Normal appetite. Patient denies abnormal bleeding. Denies any known complications with anesthesia. Sees dentist regularly, had teeth pulled during hospitalization in January due to infection. Patient lives at home with and son. Denies tobacco, alcohol, and illicit drug use. REVIEW OF SYSTEMS: See HPI for pertinent positives. All others negative other than those noted in the HPI. CONSTITUTIONAL: No change in weight, No weakness, + fatigue and No fevers, No sweats or chills. PULMONARY: No cough, sputum, or hemoptysis, No wheezing, No shortness or breath and No recent change in breathing. CARDIOVASCULAR: No chest pain, + dyspnea on exertion, No edema, No palpitations and No syncope. GASTROINTESTINAL: No abdominal pain, No change in bowel habits, No significant heartburn, No nausea, No vomiting, No diarrhea, No constipation, No blood in stools or black tarry stools. No dysphagia. HEMATOLOGIC: No abnormal bleeding and No bruising. NEUROLOGICAL: Normal balance, No headaches and No weakness. Current Medications Current Outpatient Medications Medication Sig Dispense Refill AMOXICILLIN 500 MG PO CAPS takes before dental procedures Cholecalciferol (VITAMIN D3) 2000 UNITS Capsule Take 1 Capsule by mouth in the morning. allopurinol (ZYLOPRIM) 100 MG Tablet Take 0.5 Tablets by mouth in the morning. Xarelto 15 MG Oral Tablet Take 1 Tablet by mouth in the morning. Metoprolol Succinate ER 50 MG Oral Tablet Extended Release 24 Hour (toPROL XL) Take 1 Tablet by mouth at bedtime. Calcitriol 0.25 MCG Oral Capsule (Rocaltrol) DAILY IN THE MORNING Tamoxifen Citrate 10 MG Oral Tablet (Nolvadex) Take 1 Tablet by mouth in the morning and 1 Tablet at noon and 1 Tablet before bedtime. CALCIUM-D 600-200 MG-UNIT PO CAPS once daily 0 Multiple Vitamin (MULTI VITAMIN MENS) Tablet 1 tablet daily Bumetanide 2 MG Tablet Take 1 Tablet by mouth in the morning. potassium citrate ER (UROCIT-K) 10 MEQ (1080 MG) TBCR Take 2 Tablets by mouth. traMADol (ULTRAM) 50 MG Tablet Take 1 Tablet by mouth every 6 hours as needed for Pain. Eplerenone 25 MG Oral Tablet (Inspra) 1 Tablet. metOLazone 5 MG Oral Tablet (Zaroxolyn) take 1 tablet by mouth once daily as directed if needed forWEIGHT GAIN Ferrous Gluconate 324 (38 Fe) MG Oral Tablet DULoxetine HCl 20 MG Oral Capsule Delayed Release Particles (Cymbalta) 1 Capsule. Docusate Sodium 100 MG Oral Capsule Take 1 Capsule by mouth. No current facility-administered medications for this visit. Allergies Review of patient's allergies indicates: Allergen Reactions Iodinated Contrast Media Unknown No Known Drug Allergy Past Medical History Past Medical History: Diagnosis Date Aortic valve stenosis 12/29/2002 s/p AVR Aortocoronary bypass status Atrial fibrillation (HCC) post-op after CABG, paroxysmal Cardiomegaly on CXR Difficult Airway 04/04/2004 Dyslipidemia, goal LDL below 160 Hypercholesterolemia HTN, goal below 140/90 Hypertension Benign INFORMATION Morbid obesity INFORMATION Abnormal Adenosine Stress Technecium S/P aortic valve replacement Sleep apnea On CPAP for 5 years Past Surgical History Past Surgical History: Procedure Laterality Date EGD, FLEXIBLE, DIAGNOSTIC 06/06/2013 ESOPHAGOGASTRODUODENOSCOPY (EGD), FLEXIBLE, TRANSORAL, DIAGNOSTIC performed by Braden Castellanos MD at ENDOSCOPY [facility] GASTRIC BYPASS FOR OBESITY 04.27.2003 Lap RYGB, EGD, LLBX and adhesiolysis- INJECT DX/THER SUBSTANCE INTERLAMINAR CERVICAL/THORACIC W IMAGE GUIDE 07/28/2022 INJECTION SPINE LUMBAR CERVICAL OR THORACIC performed by Edwin Burrows DO at OR [facility] KNEE ARTHROSCOPY, DIAGNOSTIC Knee Arthroscopy left REMOVAL OF LARGE STONE FROM KIDNEY via cysto.multiple--5 times REMOVE GALLBLADDER Cholecystectomy REMOVE LUMBAR SPINE LAMINA, 3+ SEGS 1991 HNP Excision REPLACEMENT AORTIC VALVE,NON-CORONARY SINUS 23 mm pericardial tissue valve UMBIL HERNIA REPAIR (INCARCERATED) AGE 5+YR Family History Family History Problem Relation Name Age of Onset Hypertension Father Heart Disorder Father CAD onset 50's Cancer Grandmother (Maternal) Cancer Aunt (Unspecified) Social History Socioeconomic History Marital status: Spouse name: Taya Number of children: Not on file Years of education: Not on file Highest education level: Not on file Occupational History 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 Tobacco Use Smoking status: Never Smokeless tobacco: Never Substance and Sexual Activity Alcohol use: No Drug use: No Sexual activity: Not on file Other Topics Concern Not on file Social History Narrative ; 2 children; 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 A+Ox3. HEENT: Normocephalic. Atraumatic. PERRL. EOMI. Conjunctiva and sclera clear. NECK: No carotid bruits. No JVD. Carotid upstrokes are brisk. Heart: Irregular and tachycardic. S1 and S2 noted. +2/6 systolic murmur. No rubs or gallops. PMI non displaced. Lungs: Diminished to auscultation. No wheezes.No rhonchi. No rales. Abdomen: Normal bowel sounds. Soft. Nontender. No masses or organomegaly. No abdominal bruits. Extremities: No edema. No clubbing or cyanosis. Pulses: radial=2/4, posterior tibial=2/4, dorsalis pedis = 2/4. NEURO: No focal deficits. PSYCH: Appropriate affect and insight. DATA: Labs & Imaging Reviewed Below: RAFFAELE 02/05/2024 ([facility]) Echocardiogram 01/29/2024 ([facility]) Cardiac Catheterization 02/16/2024 ([facility]) IMPRESSION/PLAN: Nonrheumatic mitral valve regurgitation - moderate to severe mitral regurgitation with ruptured chordae and partial anterior flail leaflet,moderate TR per RAFFAELE 01/2024 - cardiac cath 01/2024 with minimal CAD - symptomatic, NYHA class III Please see Dr. Patel's note for further recommendations. Patient care was discussed/coordinated with Dr. Patel. The patient agrees to the above plan and will call with additional questions or concerns. All questions were answered to the patients satisfaction. ER with all emergencies advised. Herlinda Venegas PA-C Cosigned by Hamida Patel MD at 04/26/2024 4:02 PM EST documented in this encounter Procedure Notes * Tony Smith MD - 04/28/2024 4:47 AM ESTAssociated Order(s): EKG REASON FOR STUDY: s/p petra day 1 CONCLUSIONS: Atrial fibrillation ST & T wave abnormality, consider anterior ischemia Prolonged QT interval or tu fusion, consider myocardial disease, electrolyte imbalance, or drug effects Abnormal ECG When compared with ECG of 27-Apr-2024 11:18, ST no longer depressed in Lateral leads Nonspecific T wave abnormality now evident in Inferior leads T wave inversion no longer evident in Lateral leads QT has lengthened Ventricular Rate: 83 QRS Duration: 100 QT/QTc: 432/507 ms P-R-T [place]: 0 : 74 : 16 degrees * Hamida Patel MD - 04/27/2024 4:39 PM EST Kyler Mesa [id number] 04/27/24 TRANSCATHETER MITRAL VALVE REPAIR STAFF PHYSICIANS: Hamida Patel MD DIAGNOSES: Symptomatic non rheumatic severe mitral regurgitation PROCEDURES: Successful percutaneous placement of two JAKE CALI device/s PROCEDURAL DETAILS: The patient was counseled extensively regarding the risks, benefits, and alternatives to the procedure and after answering all questions, the patient yielded informed consent. Thepatient was thereafter brought to the Cardiac Catheterization Laboratory. Sterile technique was used throughout the case. All vascular access was obtained by modified Seldinger technique. Preprocedural antibiotic was administered intravenously. General anesthesia was used throughout the case and the anesthesia team placed a radial arterial line. RAFFAELE probe was inserted by the echocardiography team. 7 F access was obtained in the left femoral vein using ultrasound guidance. An 8F sheath was placedat the right femoral vein using ultrasound guidance. Dual perclose devices were then deployed usingpreclose technique in the right femoral vein. We then placed a stiff wire and a 16 F sheath was placed into the IVC. Using a 0.032" wire, an 8F [place] Transseptal sheath was advanced into the right atrium. Intravenous heparin was administered to maintain an ACT between 250-350 seconds. Then a Versacross [place] transseptal wire was used to puncture the atrial septum, using both fluoroscopy and TEEfor guidance. Once the septum was punctured, the [place] sheath was advanced to the left atrium where the pressure was measured to be a mean of 26 mm Hg with V-waves to 52 mm Hg. A 0.032" [place] Guide wire was then advanced into the left atrium. The right femoral vein was dilated serially and then the 24F JAKE introducer sheath was advanced into the left atrium. Using both fluoroscopy and RAFFAELE, JAKE CALI device was successfully placed, grasping both the anterior and posterior leaflets of the mitral valve. After placement of the first device, RAFFAELE demonstrated moderate mitral regurgitation. After we felt satisfied with appropriate leaflet capture and placement, the clip was released. Given the presence of moderate mitral regurgitation, we elected to place 2nd device lateral to the 1st 1. Using both fluoroscopy and RAFFAELE, Jake Cali device was successfully placed grasping both anterior and posterior leaflets of the mitral valve lateral to the 1st device. After the placement of 2nd device, raffaele demonstrated 1 to 2+ MR which was considered acceptable. All equipment was then removed. The dual perclose devices were secured. A figure eight stich was placed at the puncture site at the right femoral vein, and hemostasis at the left femoral vein was achieved with manual compression. IMPRESSION: Successful placement of two JAKE CALI device/s RECOMMENDATIONS: 1. Resume aspirin 2. Routine post procedure care. Hamida Patel MD MPH Interventional Cardiology Pager: [phone] 04/27/24 4:40 PM * Tony Smith MD - 04/27/2024 11:18 AM ESTAssociated Order(s): EKG REASON FOR STUDY: post clip CONCLUSIONS: Atrial fibrillation with a competing junctional pacemaker with premature ventricular or aberrantly conducted complexes ST & T wave abnormality, consider anterolateral ischemia Abnormal ECG When compared with ECG of 27-Apr-2024 07:07, T wave inversion no longer evident in Inferior leads T wave inversion more evident in Lateral leads Ventricular Rate: 80 QRS Duration: 98 QT/QTc: 360/415 ms P-R-T [place]: 0 : 77 : 103 degrees * David Lai MD - 04/27/2024 7:07 AM ESTAssociated Order(s): EKG REASON FOR STUDY: pre petra clip CONCLUSIONS: Atrial fibrillation with rapid ventricular response with premature ventricular or aberrantly conducted complexes Marked ST abnormality, possible inferior subendocardial injury Abnormal ECG When compared with ECG of 05-Oct-2008 13:16, Atrial fibrillation has replaced Sinus rhythm Vent. rate has increased by [address] now depressed in Inferior leads ST now depressed in Anterior-lateral leads T wave inversion now evident in Inferior leads T wave inversion now evident in Anterior-lateral leads Ventricular Rate: 110 QRS Duration: 92 QT/QTc: 326/441 ms P-R-T [place]: 0 : 58 : -62 degrees documented in this encounter Consult Notes * Gera Marsh RN - 04/28/2024 10:48 AM ESTAssociated Order(s): CARE MANAGEMENT CONSULT IP See note in Ancillary section. CM to follow during hospital course. Thanks * Jerrell Mina OT - 04/28/2024 8:58 AM ESTAssociated Order(s): ADULT OCCUPATIONAL THERAPY CONSULT IP GENERAL EVALUATION- Occupational Therapy [address] [phone] Name: Kyler Mesa Location: 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 Patient has been following in clinic with Dr. 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 Patient presented today to [facility] for planned mitral clip procedure. He completed the procedure successfully and doing well postprocedure. At the time of my evaluation, patient reports feeling well without ongoingsymptoms. Patient denies any associated chest pain, palpitations, dyspnea, cough, fevers, chills, nausea, vomitting, diarrhea, constipation, headaches, vision changes, and weakness" Patient Status: Inpatient Insurance: Payor: MEDICARE Plan: MEDICARE A AND B Product Type: *No Product type* Payor: [employer] Plan: [employer] Product Type: *No Product type* Patient Seen: at bedside, nursing cleared patient for therapy Patient Identified By: Name, ID Band and Date Diagnosis: severe mitral regurgitation (04/28/24839) Status of treatment: Evaluation completed (04/28/24839) Orders: OT evaluation and treatment;OT OOB (04/28/24839) Weight Bearing Status: Weight bearing as tolerated (04/28/24839) Precautions: Alarms;Falls;Safety;Oxygen (04/28/24839) Total Treatment Time: 15 (04/28/24839) Past Medical History: Past Medical History: Diagnosis Date Aortic valve stenosis 12/29/2002 s/p AVR Aortocoronary bypass status Atrial fibrillation (HCC) post-op after CABG, paroxysmal Cardiomegaly on CXR CKD (chronic kidney disease) Difficult Airway 04/04/2004 Dyslipidemia, goal LDL below 160 Hypercholesterolemia H/O left nephrectomy HTN, goal below 140/90 Hypertension Benign RACHELE (iron deficiency anemia) INFORMATION Morbid obesity INFORMATION Abnormal Adenosine Stress Technecium Mitral regurgitation FIFI on CPAP On CPAP for 5 years S/P aortic valve replacement with bioprosthetic valve 20 years ago, judah Tricuspid regurgitation Past Surgical History: Past Surgical History: Procedure Laterality Date EGD, FLEXIBLE, DIAGNOSTIC 06/06/2013 ESOPHAGOGASTRODUODENOSCOPY (EGD), FLEXIBLE, TRANSORAL, DIAGNOSTIC performed by Braden Castellanos MD at ENDOSCOPY [facility] GASTRIC BYPASS FOR OBESITY 04.27.2003 Lap RYGB, EGD, LLBX and adhesiolysis- INJECT DX/THER SUBSTANCE INTERLAMINAR CERVICAL/THORACIC W IMAGE GUIDE 07/28/2022 INJECTION SPINE LUMBAR CERVICAL OR THORACIC performed by Edwin Burrows DO at OR [facility] KNEE ARTHROSCOPY, DIAGNOSTIC Knee Arthroscopy left REMOVAL OF LARGE STONE FROM KIDNEY via cysto.multiple--5 times REMOVE GALLBLADDER Cholecystectomy REMOVE LUMBAR SPINE LAMINA, 3+ SEGS 1991 HNP Excision REPLACEMENT AORTIC VALVE,NON-CORONARY SINUS 23 mm pericardial tissue valve UMBIL HERNIA REPAIR (INCARCERATED) AGE 5+YR Social History/Disposition Lives with: Spouse (04/28/24839) Assistance available: Yes (04/28/24839) Dwelling type: Single story home (04/28/24839) Entry steps: Ramp (04/28/24839) Inside steps: None (04/28/24839) Bedroom location: 1st floor (04/28/24839) Bath location: 1st floor full bath (04/28/24839) Prior Level of Function Reported by: Patient (04/28/24839) Ambulation: Ambulatory with device (04/28/24839) Ambulatory Device: Cane (04/28/24839) Grooming: Independent (04/28/24839) Bathing: Independent (04/28/24839) Dressing: Independent (04/28/24839) Feeding: Independent (04/28/24839) Toileting: Independent (04/28/24839) Meal Prep: Independent (04/28/24839) Homemaking: Independent (04/28/24839) Durable Medical Equipment at home: Straight cane;Sock aid (04/28/24839) Observations Consciousness: Alert (04/28/24839) Orientation: Oriented times 4 (04/28/24839) Psychosocial: Patient can communicate basic needs;Patient can converse in a social setting (04/28/24839) Sitting posture: Forward head;Rounded shoulders (04/28/24839) Standing posture: Forward head;Rounded shoulders (04/28/24839) Safety awareness: The Patient verbalizes insight of current deficits.;The Patient demonstrates carryover of insight during functional tasks. (04/28/24839) Pain: No complaints of pain Current Functional Status: UE Strength/ROM: BUE are WFL and 4+/5 grossly Bed Mobility Supine-Sit: Contact Guard (04/28/24839) OT Transfers Sit-Stand: Contact Guard (04/28/24839) Stand-Sit: Contact Guard (04/28/24839) Bed-Chair: Contact Guard (04/28/24839) Functional Ambulation Assistive Device: Cane (04/28/24839) Distance in feet:: 30 (04/28/24839) Level of Assistance: Contact Guard (04/28/24839) Self Care Able to provide self care: Yes (04/28/24839) Balance Sit (Static): Fair (04/28/24839) Sit (Dynamic): Fair (04/28/24839) Stand (Static): Fair (04/28/24839) Stand (Dynamic): (Fair-) (04/28/24839) Dressing Upper Body: Supervision (Please comment) (to simulate robe) (04/28/24839) Lower Body: Dependent (to don socks) (04/28/24839) Equipment Equipment used in Therapy: Rolling walker (04/28/24839) Patient and or Family Goal(s): None Alarm Status Patient positioned in: Chair (04/28/24839) With: Call spicer in reach (No alarms in CRS) (04/28/24839) Treatment Provided: Evaluation Low Complexity 15 minutes - 30118: Patient was cooperative during treatment session. Low complexity evaluation performed and ADL deficit and functional mobility deficitdeficits were identified that result in activity limitation. The patient does not have any comorbidities that affect occupational performance. There were no modifications necessary to complete the evaluation. Patient Education Education Topic: Role of OT;Plan of care goals (04/28/24839) Review of Precautions: Safety;Fall (04/28/24839) Method of Education: Verbalized to patient (04/28/24839) Education Provided to: Patient (04/28/24839) Response to Education: Receptive and agreeable to education (04/28/24839) Barriers to learning: None (04/28/24839) Preferred learning method: Combination (04/28/24839) Method of Education: Verbal discussion and explanation provided to patient: verbalized understanding and or agreement of this information Assessment: Patient is an 83 year old male admitted on 04/27/24 being seen for severe mitral regurgitation. He was previously living at home and reports being independent for ADLs/mobility. On exam, patient was able to complete bed mobility with contact guarding to manage LEs. He was able to simulate UB dressing with supervision, however, was dependent to don socks as he could not reach LEs (has AE at home). He was able to ambulate in room using cane with contact guarding due to unsteadiness. Patient would benefit from ongoing acute OT services to improve function. Please consider post-acute care services which may include home health, residential, outpatient therapy or inpatient rehabilitation. The level of care will be determined in collaboration with patient, family/caregiver and care team members. AM-PAC Help From Another Person Eating Meals: None (04/28/24839) Help From Another Person Taking Care of Personal Grooming: A little (04/28/24839) Help From Another Person To Put On/Take Off Upper Body Clothing: Total (04/28/24839) Help From Another Person To Put On/Take Off Lower Body Clothing: A little (04/28/24839) Help From Another Person Toileting: A lot (04/28/24839) Help From Another Person Bathing: A lot (04/28/24839) OT AM-PAC Score: 15 (04/28/24839) OT AM-PAC t-Scale Score: 34.69 (04/28/24839) HLM (Highest Level of Mobility) Goal: Level 5 standing (1 or more minutes) (04/28/24839) A portion of this AM-PAC assessment not scored based on functional assessment; rather clinical decision making was utilized based on current findings and/or prior level of function. Please refer to future AM-PAC calculations of functional ability as they become available. Deficits requiring O.T. treatment needs: ADL/self- care;Balance;Endurance;Functional mobility;IADL;Safety;Upper extremity strength;Weakness (04/28/24839) Goals: Increase Strength of BUE to 5/5 in all areas Demonstrate sitting Balance of Fair+ Demonstrate standing Balance of Fair+ Demonstrate self care at modified independence for all UB and LB tasks using AE PRN Demonstrate toileting with modified independence Demonstrate Bed Mobility with modified independence Demonstrate Transfers with modified independence Demonstrate Functional Ambulation with modified independence Treatment Plan: Accuracy with Precautions, Safety, Bed mobility training, Functional Ambulation, Transfer training, Coordination Tasks, Upper extremity strengthening, Balance activities, ADL training, and Endurance Goal Time Frame:8 visits Anticipated Frequency (on eval): 1 to 3 times per week (04/28/24839) * Reynaldo Alvarez, PT - 04/28/2024 8:40 AM ESTAssociated Order(s): ADULT PHYSICAL THERAPY CONSULT IP GENERAL EVALUATION - Physical Therapy [address] [address] Name: Kyler Mesa Location: [facility] Date: 04/28/2024 Time: 8:40 AM Kyler Mesa is a 83 year old male. Patient Status: Inpatient Insurance: Payor: MEDICARE Plan: MEDICARE A AND B Product Type: *No Product type* Payor: [employer] HEALTH Plan: [employer] Product Type: *No Product type* Patient Seen: at bedside, nursing cleared patient for therapy Patient Identified By: Name, ID Band, and Date Subjective: Pt seen in cardiac recovery suite. Agreeable to exam. Diagnosis: severe mitral regurgitation (04/28/24839) Status of treatment: Evaluation completed (04/28/24839) Orders: PT evaluation and treatment;OOB (04/28/24839) Precautions: Falls (04/28/24839) Total Treatment Time--free text: 16 (04/28/24839) Past Medical History: Past Medical History: Diagnosis Date Aortic valve stenosis 12/29/2002 s/p AVR Aortocoronary bypass status Atrial fibrillation (HCC) post-op after CABG, paroxysmal Cardiomegaly on CXR CKD (chronic kidney disease) Difficult Airway 04/04/2004 Dyslipidemia, goal LDL below 160 Hypercholesterolemia H/O left nephrectomy HTN, goal below 140/90 Hypertension Benign RACHELE (iron deficiency anemia) INFORMATION Morbid obesity INFORMATION Abnormal Adenosine Stress Technecium Mitral regurgitation FIFI on CPAP On CPAP for 5 years S/P aortic valve replacement with bioprosthetic valve 20 years ago, judah Tricuspid regurgitation Past Surgical History: Past Surgical History: Procedure Laterality Date EGD, FLEXIBLE, DIAGNOSTIC 06/06/2013 ESOPHAGOGASTRODUODENOSCOPY (EGD), FLEXIBLE, TRANSORAL, DIAGNOSTIC performed by Braden Castellanos MD at ENDOSCOPY [facility] GASTRIC BYPASS FOR OBESITY 04.27.2003 Lap RYGB, EGD, LLBX and adhesiolysis- INJECT DX/THER SUBSTANCE INTERLAMINAR CERVICAL/THORACIC W IMAGE GUIDE 07/28/2022 INJECTION SPINE LUMBAR CERVICAL OR THORACIC performed by Edwin Burrows DO at OR [facility] KNEE ARTHROSCOPY, DIAGNOSTIC Knee Arthroscopy left REMOVAL OF LARGE STONE FROM KIDNEY via cysto.multiple--5 times REMOVE GALLBLADDER Cholecystectomy REMOVE LUMBAR SPINE LAMINA, 3+ SEGS 1991 HNP Excision REPLACEMENT AORTIC VALVE,NON-CORONARY SINUS 23 mm pericardial tissue valve UMBIL HERNIA REPAIR (INCARCERATED) AGE 5+YR Social History/Disposition Lives with: Spouse (04/28/24839) Assistance available: Yes (04/28/24839) Dwelling type: Single story home (04/28/24839) Entry steps: Ramp (04/28/24839) Inside steps: None (04/28/24839) Bedroom location: 1st floor (04/28/24839) Bath location: 1st floor full bath (04/28/24839) Prior Level of Function Reported by: Patient (04/28/2440) Ambulation: Ambulatory with device (04/28/24839) Ambulatory Device: Cane (04/28/24839) Devices at home: Straight cane (04/28/24839) Observations Consciousness: Alert (04/28/24839) Orientation: Oriented times 4 (04/28/24839) Psychosocial: Patient can communicate basic needs;Patient can converse in a social setting (04/28/24839) Sitting Posture: Rounded shoulders (04/28/2440) Standing Posture: Rounded shoulders (04/28/24839) Pain: No complaints of pain LOWER EXTREMITY ASSESSMENT: LE MMT: Grossly 4/5 LE ROM: WFL P.T. Bed Mobility Supine-Sit: Contact Guard (04/28/24839) Transfers Sit-Stand: Contact Guard (04/28/24839) Stand-Sit: Contact Guard (04/28/24839) Ambulation Assist: Contact Guard (04/28/24839) Distance Ambulated (feet): 30 (04/28/24839) Assistive Device: Straight cane (04/28/24839) Noted gait deviations: slow vickie (04/28/24839) Ambulatory safety: Patient verbalizes insight of current deficits;Patient demonstrates carryover ofinsight during functional tasks (04/28/24839) Balance Sit (Static): Fair (04/28/24839) Sit (Dynamic): Fair (04/28/24839) Stand (Static): (Fair-) (04/28/24839) Stand (Dynamic): (Fair-) (04/28/24839) Patient and or Family Goal(s): to get well Patient Education Safety Awareness: Patient verbalizes insight of current deficits;Patient demonstrates carryover of insight during functional tasks;Patient can communicate basic needs (04/28/24839) Preferred learning method: Combination (04/28/24839) Barriers to learning: None (04/28/24839) Method of Education: Verbalized to patient;Patient demonstrated task (04/28/24839) Topic of Education: Goals/plan of care Method of Education: Verbal discussion and explanation provided to patient: verbalized understanding and or agreement of this information Treatment Provided: Evaluation Moderate Complexity 16 minutes - 70975: Patient was cooperative during treatment session. Moderate complexity evaluation performed and 1-2 personal factors or comorbidities were identified that will impact plan of care, including obesity and cardiac history. Patient presents with limitations in strength, bed mobility, transfers, gait, balance, and endurance, which will impact plan of care. These limitations will be addressed by the goals set for this patient. Alarm Status Patient positioned in: Chair (04/28/24839) With: Call spicer in reach (04/28/24839) Pt seen in recovery area. Chair alarms are not utilized on this unit. Assessment: Kyler Mesa is a 83 year old male admitted with severe mitral regurgitation. Pt is now seen s/p cardiac procedure. On exam pt has mild LE weakness and mild edema. Pt was able to complete basic mobility with guarding. Pt ambulated with a cane. Pt demonstrated slow vickie and mild deconditioning. Pt may benefit from continued PT services to work on deficits to maximize functional independence. Please consider post-acute care services which may include home health, residential, outpatient therapy or inpatient rehabilitation. The level of care will be determined in collaboration with patient, family/caregiver and care team members. Deficits requiring P.T. treatment needs: Mobility;Weakness;Endurance;Lower extremity strength (04/28/24839) Goals: Demonstrate Bed Mobility with : Supine to Sit: Modified Independent Sit to Supine: Modified Independent Demonstrate Transfers with: Sit to Stand: Modified Independent Stand to Sit: Modified Independent Demonstrate Ambulation: Device: Cane Distance in feet: 200 feet Level of Assistance on level surface: Modified Independent Increase Strength of: 1/2 grade in LE's Increase Balance: Fair + with Dynamic Standing Time Frame: 8 visits Treatment Plan: Bed mobility training, Transfer training, Gait training, Strengthening exercises, and Balance activities Equipment needs: No device (04/28/24839) Anticipated Frequency (on eval): 1 to 3 times per week (04/28/24839) AM-PAC Score With Stairs : 17 (04/28/24839) Some items of AM-PAC not tested due to overall medical status, grades determined based on clinical judgement of how patient may do at this time had they been assessed. documented in this encounter Nursing Notes * Melly Lazcano, RN - 05/01/2024 7:40 PM EST Patient's BP is on 80's, asymptomatic. Noted IV lasix given at 18:30 hr and his Midodrine TID d/cd today. Pt's baseline BP usually at low 100. order desk caller resident Annette made aware and seen patient atbedside. No new order at this time. At 2AM, BP rechecked 124/78. * Liya Renteria RN - 04/30/2024 11:45 AM EST Dual Licensed Skin Assessment completed by Dorcas RN and Connor Sullivan RN. The patient is/has a N/A Skin Breakdown (includes non blanchable erythema): No, reddened, blanchable bottom Back skin redness from pacer pad adhesive removal * Senia Coyle RN - 04/30/2024 11:00 AM EST Report given to Chel on HFAM 8. Pt transported by myself via w/c. documented in this encounter Miscellaneous Notes * Ancillary Progress Note - Jagruti Randolph MSW - 05/02/2024 9:51 AM EST CARE MANAGEMENT - ADULT DISCHARGE NOTE [facility] [address] Name: Kyler Mesa Location: [facility] H873/A Date: 05/02/2024 Time: 9:51 AM The following coordination of care and discharge plan has been coordinated with the care team, patient, family and/or caregiver according to the patients needs and preferences. Discharge Discharge Second Notice Important Message from Medicare delivered: Not Applicable (05/02/24950) Was Caregiver/Family/Facility contacted regarding discharge: Yes (05/02/24950) Discharge Transportation: Family/Friends drive (05/02/24950) Date of scheduled discharge transportation: 05/02/24 (05/02/24950) Time of scheduled discharge transportation: 1400 (05/02/24950) Final Discharge Plan (Complete only at time of Discharge): IP Rehab (05/02/24950) Destination - Admitted Since 04/27/2024 Service Provider Services Address Phone Fax Patient Preferred Last Updated [facility] [address] [place] [id number] [phone] -- Gera Marsh, RN 04/29/2024 0737 Narrative: Per service, Pt ready for DC today (05/02). Pt going to [facility]. Family is providing transportation around 2pm. No other skilled needs identified at this time. Please contact CM with any changes to DC plans. * Ancillary Progress Note - Jagruti Randolph MSW - 05/02/2024 9:37 AM EST CARE MANAGEMENT - ADULT TRANSITION NOTE [facility] [address] Name: Kyler Mesa Location: [facility] H873/ Date: 05/02/2024 Time: 9:38 AM Risk Stratification Risk Stratification Psycho Social / Medical Concerns Identified: Adjustment to illness/injury (04/28/24 1045) Accessed [employer] to connect patients to social care resources: No (04/28/24 104) OBRA or OPTIONS needed for placement: No (04/28/24 1045) Readmission Risk Score: 11.16 (05/02/24 0801) AM-PAC Score With Stairs : 20 (05/01/24 1930) Caregiver Information Emergency Contacts Name Relation Home Work Mobile Taya Mesa Spouse [phone] MesaUna brantley Adult Child [phone] Other Contacts None on File Transition of Care Checklist Transition of Care Checklist (aka Readmission Risk Score) Discharge Disposition: Post-Acute (04/28/24 1047) Narrative: Pt was discussed with service this AM. Pt is medically ready for DC at this time. SW confirmed with Cristal at [facility] that Pt able to DC to them today. Pt's family to transport after 2 pm. Pt's family to being Pt's portable O2 and CPAP for [facility]. SW will continue to follow for evolving needs and support. Anticipated Transportation at Discharge: family Patient/Family Expectations: IRF Transition Planning Transition Planning Transition Plan/Considerations: CM provided contact information and will update plan as needs arise;Discussed at Interdisciplinary Team / Boost Rounds;Needs identified - Discharge planning services explained to patient family / caregiver - Choices offered (04/28/241046) Transition services explained and patient/family/caregiver agreeable: Inpatient Rehab (04/28/241046) Transition plan discussed with - Enter name and phone #: Kyler (04/28/241046) Insurance Considerations: Therapy documentation needed for precert request (04/28/241046) Referral to Community Agency : N/A (04/28/241046) Post-Acute Care needs identified and Referrals Completed: N/A (04/28/241046) Additional Considerations: N/A Care Management will continue to monitor and assist with discharge planning needs * Care Plan - Melly Lazcano, RN - 05/02/2024 4:08 AM EST Clinical Goal(s): Patient will be free from injury (05/01/241929) Possible barriers to meeting goal(s)/advancing plan of care: diagnosis Problem: Safety & Risk for Injury Goal: Patient will remain free from injury. Outcome: Progressing Stability of the patient: Moderately stable - low risk of patient condition declining or worsening Summary regarding today's goal(s): Met: yes Recommendations: Continue plan of care. * Communication - Landon Bryant DO - 05/01/2024 7:30 PM EST Situation: The patient was evaluated due to hypotension. The patient was assessed at the bedside. He voiced no complaints and was resting comfortably in reclining chair. He denies shortness of breath or chest pain. 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 He received 160 mg of IV lasix and 500 cc of Diuril since this afternoon for diuresis. As per chart review he stopped [employer] Midodrine yesterday due to hypertension. Assessment: BP 81/60 mm Hg Map 67 Known atrial fibrillation on telemetry with HR 100-115 bpm Physical Exam Constitutional: Appearance: Normal appearance. HENT: Head: Normocephalic. Mouth/Throat: Mouth: Mucous membranes are moist. Eyes: Pupils: Pupils are equal, round, and reactive to light. Cardiovascular: Rate and Rhythm: Rhythm irregular. Pulses: Normal pulses. Heart sounds: Normal heart sounds. Pulmonary: Effort: Pulmonary effort is normal. Breath sounds: Normal breath sounds. Abdominal: General: Abdomen is flat. Bowel sounds are normal. Palpations: Abdomen is soft. Musculoskeletal: Right lower leg: Edema present. Left lower leg: Edema present. Skin: General: Skin is warm. Capillary Refill: Capillary refill takes less than 2 seconds. Neurological: General: No focal deficit present. Mental Status: He is alert and oriented to person, place, and time. Psychiatric: Mood and Affect: Mood normal. Behavior: Behavior normal. Recommendation: No immediate interventions made as patient was asymptomatic and hemodynamically stable. Patient is asymptomatic with acceptable MAP. Reassessment in two hours showed improvement of blood pressure to 92/66 mm Hg. His evening Metoprolol was given. Follow up at 0200 showed BP of 124/78 mm Hg * Care Plan - Melly Lazcano RN - 05/01/2024 4:29 AM EST Clinical Goal(s): Patient will be free from fall (04/30/241924) Possible barriers to meeting goal(s)/advancing plan of care: diagnosis Problem: Safety & Risk for Injury Goal: Patient will remain free from injury. Outcome: Progressing Stability of the patient: Moderately stable - low risk of patient condition declining or worsening Summary regarding today's goal(s): Met: yes Recommendations: Continue plan of care. * Pt Handout (on AVS) - Carmela Padgett RN - 04/30/2024 10:26 PM EST Images from the original note were not included. [id number] Coping with Heart Failure It?s normal to feel sad or down at times when you?re living with heart failure. Some medicines can also affect your mood. Following your treatment plan may seem difficult at times. If you feel overwhelmed, just focus on one day at a time. Don?t be afraid to ask others for help when you need it. Ways to feel better Try not to withdraw from family and friends, even if you're finding it hard to talk to them. They can still be a good source of support. To feel better, you can also: Spend time doing things you enjoy. This may include taking part in a favorite hobby, meditating,praying, or spending time with people you care about. Find activities that make you happy. And makethose a priority. Share what you learn about heart failure with the people in your life. Invite family members along when you visit your healthcare provider. This will help you feel supported. And it will help you discuss the care plan you've agreed upon with your provider. Think about joining a support group for people with heart failure. It may be easier to talk to people who know firsthand what you?re going through. They can offer advice and share stories. You maywant to ask loved ones to join you for a meeting. Asking for help Having heart failure doesn?t mean that you have to feel bad all the time. Think about talking to your healthcare provider or a therapist if: You feel worthless or helpless, or are thinking about suicide. These are warning signs of depression. Treatment can help you feel better. When depression is under control, your overall health may also improve. You feel anxious about what will happen to your loved ones if your health gets worse. Taking care of legal arrangements, such as a living will and durable power of senior attorney, can help you feel moresecure about the future. You feel stressed or alone. Social support helps reduce stress and helps you stick with your healthy lifestyle changes. Without social support, you may end up back in the hospital. Last Reviewed Date: 2023 00:00:00 [id number] [employer]. All rights reserved. This information is not intended as a substitute for professional medical care. Always follow your healthcare professional's instructions. * Pt Handout (on AVS) - Carmela Padgett RN - 04/30/2024 10:26 PM EST [id number] Discharge Instructions for Heart Failure The heart is a muscle that pumps oxygen-rich blood to all parts of the body. When you have heart failure, the heart is not able to pump as well as it should. Blood and fluid may back up into the lungs. Some parts of the body don?t get enough oxygen-rich blood to work normally. These problems lead to the symptoms of heart failure. Heart failure can occur because of an injury to the heart or from natural processes. You can control symptoms of heart failure with some lifestyle changes and by following your doctor's advice. Activity Ask your healthcare provider about an exercise program. Simple activities such as walking or gardening can help. Exercising most days of the week can make you feel better. Don't be discouraged if your progress is slow at first. Rest as needed. Stop activity if you get symptoms such as chest pain, lightheadedness, or shortness of breath. Find activities that you enjoy. Examples might be brisk walking, dancing, swimming, and gardening. These will help you stay active and strengthen your heart. Ask your healthcare provider about cardiac rehab. This is a program that helps you to exercise safely. Diet Follow a heart healthy diet. And make sure to limit the salt (sodium) in your diet. Salt causes your body to hold water. This makes your heart work harder because there is more fluid for the heart topump. Limit your salt as directed by your healthcare provider by doing the following: Limit canned, dried, packaged, and fast foods. Don't add salt to your food. Season foods with herbs instead of salt. Watch how much liquids you drink. Drinking too much can make heart failure worse. Talk with yourhealthcare provider about how much you should drink each day. Limit the amount of alcohol you drink. It may harm your heart. Women should have no more than 1 drink a day. Men should have no more than 2 a day. Ask that your meals have no added salt when you eat out. Talk with your healthcare provider before using salt substitutes. They often have potassium in them. This may not be good for your health. This will depend on how well your kidneys are working andwhat medicines you?re taking. Some people need extra potassium. Others don?t. Tobacco It's important to quit if you smoke. Smoking increases your chances of having a heart attack by harming the blood vessels that provide oxygen to your heart. This makes heart failure worse. Quitting smoking is the number one thing you can do to improve your health. Enroll in a stop-smoking program to improve your chances of success. Talk with your healthcare provider about medicines or nicotine replacement therapy. Also ask your healthcare provider about smoking cessation support groups. Medicine Take your medicines exactly as prescribed. Learn the names and purpose of each of your medicines. Keep an accurate medicine list and current dosages with you at all times. Don't skip doses. If you miss a dose of your medicine, take it as soon as you remember. If you miss a dose and it's almost timefor your next dose, just wait and take your next dose at the normal time. Don't take a double dose. If you are unsure, call your doctor's office. Make sure not to mix up your medicines or forget whatyou've taken the same day. Refill your prescriptions before you run out of medicine. Talk with yourhealthcare provider if you have trouble with the cost of your medicines. Weight monitoring Weigh yourself every day. A sudden weight gain can mean your heart failure is getting worse. Weigh yourself at the same time of day and in the same kind of clothes. Ideally, weigh yourself first thing in the morning after you empty your bladder, but before you eat breakfast. Your healthcare provider will show you how to track your weight. They will also tell you when you should call if you have asudden, unexpected increase in your weight. In general, your healthcare provider may ask you to report if your weight goes up by more than 2 pounds in 1 day, 5 pounds in 1 week, or whatever weight gain you were told by your doctor. This is a sign that you are retaining more fluid than you should be. Clues to weight gain include checking yourankles for swelling, or noticing you are short of breath when you lie down. Follow-up care Have a follow-up appointment as instructed. Depending on the type and severity of heart failure youhave, you may need follow-within 7 days from hospital discharge. Keep appointments for checkups andlab tests that are needed to check your medicines and condition. Recognize that your health and even survival depend on you following your provider's advice. Symptoms Heart failure can cause a variety of symptoms. They include: Shortness of breath Trouble breathing at night, especially when you lie down Swelling in the legs and feet or in the belly (abdomen) Becoming easily tired Irregular or rapid heartbeat Weakness or lightheadedness Swelling of the neck veins It's important to know what to do if symptoms get worse or if you develop signs of worsening heart failure. Keep track of how you feel each day. Report any changes to your healthcare provider. When to call your healthcare provider Call your healthcare provider right away if you have any of these signs of worsening heart failure: Sudden weight gain. This means more than 2 pounds in 1 day or 5 pounds in 1 week, or whatever weight gain you were told to report by your doctor. Trouble breathing not related to being active New or increased swelling of your legs or ankles Swelling or pain in your abdomen Breathing trouble at night. This means waking up short of breath or needing more pillows to breathe. Frequent coughing that doesn't go away Feeling much more tired than usual Call 911 Call 911 right away if you have: Severe shortness of breath, such that you can't catch your breath even while resting Severe chest pain that does not resolve with rest or nitroglycerin [place], foamy mucus with cough and shortness of breath An ongoing rapid or irregular heartbeat Passing out or fainting Stroke symptoms such as sudden numbness or weakness on one side of your face, arm, or leg or sudden confusion, trouble speaking or vision changes Last Reviewed Date: 2021 00:00:00 [id number] [employer]. All rights reserved. This information is not intended as a substitute for professional medical care. Always follow your healthcare professional's instructions. * Pt Handout (on AVS) - Carmela Padgett RN - 04/30/2024 10:26 PM EST Images from the original note were not included. [id number] What Is Heart Failure? The heart is a muscle that pumps oxygen-rich blood to all parts of the body. When you have heart failure, the heart is not able to pump as well as it should. Blood and fluid may back up into the lungs, and some parts of the body don?t get enough oxygen-rich blood to work normally. When you have heart failure With heart failure, not enough oxygen-rich blood leaves the heart with each beat. There are 2 typesof heart failure. Both affect how well the left ventricles can pump blood. You may have one or bothtypes. Systolic heart failure. The heart muscle becomes weak and enlarged. It can?t pump enough oxygen-rich blood forward to the rest of the body when the ventricles contract. The measurement of how much blood your heart pumps out with each beat is called ejection fraction. In systolic heart failure, the ejection fraction is lower than normal. This can cause blood to back up into the lungs and cause shortness of breath and eventually ankle swelling (edema). This is also known as heart failure with reduced ejection fraction (HFrEF), heart failure with mildly reduced ejection fraction (HFmrEF), or heart failure with improved ejection fraction (HFimpEF). Diastolic heart failure. The heart muscle becomes stiff. It doesn?t relax normally between contractions. This keeps the ventricles from filling with blood as they should. Ejection fraction is often in the normal range. This can still lead to the backup of blood into the body and affect the organs such as the liver. This is also called heart failure with preserved ejection fraction, or HFpEF. Recognizing heart failure symptoms When you have heart failure, you need to pay close attention to your body and how you feel, every single day. That way, if a problem occurs, you can get help before it becomes too severe. You'll needto watch for changes in your symptoms. As long as symptoms stay about the same from one day to the next, your heart failure is stable. But if symptoms start to get worse, it's time to take action. Signs and symptoms of worsening heart failure include: Rapid weight gain from fluid buildup Shortness of breath, especially when lying down flat Fast heart rate Cough that won't go away Swelling, especially in the feet (edema), legs, or abdomen Tiredness (fatigue) Nausea or loss of appetite How heart failure affects your body When the heart doesn't pump enough blood, hormones are sent to increase the amount of work the heart does. Some hormones make the heart grow larger. Others tell the heart to pump faster. As a result,the heart may pump more blood at first, but it can't keep up with the ongoing demands. So, the heart muscle becomes even weaker. Over time, even less blood is pumped through the heart. This leads to problems throughout the body as organs start to feel the effects of a long-term lack of oxygen. If not treated, over time this can cause problems with your lungs, liver, and kidneys. Long-term (chronic) leg swelling (edema) can also cause skin changes and breakdown. A weak heart itself can eventually cause a severe decline in health and possible if left untreated. What is ejection fraction? Left ventricular ejection fraction (LVEF) is a measurement of how well your heart pumps blood. It measures how much blood in the heart's ventricle is pumped out (ejected) with each heartbeat. This ismeasured to help diagnose heart failure. A healthy heart pumps at least half of the blood from the ventricles with each beat. This means a normal ejection fraction is around 50% to 70%. There are 4 groupings of HF measured through LVEF. HFrEF. LVEF is 40% or less. (systolic HF) HFmrEF. LVEF is 41% to 49% with higher filling pressure in the left ventricle. (systolic HF) HFimpEF. A past LVEF less than 40% and a follow-up amount of LVEF greater than 40%. (systolic HF) HFpEF. LVEF is 50% or more with higher filling pressure in the left ventricle. (diastolic HF) Your healthcare provider will calculate ejection fraction from an echocardiogram or other tests. Your healthcare provider can talk with you about treatment options and how to improve your EF. My ejection fraction Date: Ejection fraction: Test used: How daily issues affect your health Many things in your daily life impact your health. This can include transportation, money problems,housing, access to food, and childcare center director. If you can?t get to medical appointments, you may not receive the care you need. When money is tight, it may be difficult to pay for medicines. And living farfrom a grocery store can make it hard to buy healthy food. If you have concerns in any of these or other areas, talk with your healthcare team. They may know of local resources to assist you. Or they may have a staff person who can help. Last Reviewed Date: 2023 00:00:00 [id number] The [employer]. All rights reserved. This information is not intended as a substitute for professional medical care. Always follow your healthcare professional's instructions. * Pt Handout (on AVS) - Carmela Padgett RN - 04/30/2024 10:26 PM EST Images from the original note were not included. [id number] Heart Failure: Making Changes to Your Diet You have a condition called heart failure. When you have heart failure, excess fluid is more likelyto build up in your body because your heart isn't working well. This makes the heart work harder topump blood. Fluid buildup causes symptoms such as shortness of breath and swelling (edema). This isoften called congestive heart failure or CHF. Controlling the amount of salt (sodium) you eat may help stop fluid from building up. Your healthcare provider may also tell you to reduce the amount of fluid you drink. Reading food labels Your healthcare provider will tell you how much sodium you can eat each day. Read food labels to keep track. Keep in mind that certain foods are high in salt. These include canned, frozen, and processed foods. Check the amount of sodium in each serving. Watch out for high-sodium ingredients. These include MSG (monosodium glutamate), baking soda, and sodium phosphate. Eating less salt Give yourself time to get used to eating less salt. It may take a little while. Here are some tips to help: Take the saltshaker off the table. Replace it with salt-free herb mixes and spices. Eat fresh or plain frozen vegetables. These have much less salt than canned vegetables. Choose low-sodium snacks such as sodium-free pretzels, crackers, or air- popped popcorn. Don?t add salt to your food when you?re cooking. Instead, season your foods with pepper, lemon, garlic, or onion. When you eat out, ask that your food be cooked without added salt. Don't eat fried foods as these often have a great deal of salt. Talk with your healthcare provider before using salt substitutes. They often contain potassium and may not be good for your health. This will depend on how well your kidneys are working and what medicines you?re taking. Some people need extra potassium, but others don?t. If you?re told to limit fluids In some cases, you may need to limit how much fluid you consume to help prevent swelling. This includes anything that is liquid at room temperature, such as ice cream and soup. If your healthcare provider tells you to limit fluid, try these tips: Measure drinks in a measuring cup before you drink them. This will help you meet daily goals. Chill drinks to make them more refreshing. Suck on frozen lemon wedges to quench thirst. Only drink when you?re thirsty. Chew sugarless gum or suck on sugarless hard candy to keep your mouth moist. Weigh yourself daily to know if your body's fluid content is rising. My sodium goal Your healthcare provider may give you a sodium goal to meet each day. This includes sodium found infood as well as salt that you add. My goal is to eat no more than mg of sodium per day. When to call your healthcare provider Call your provider right away if you have any symptoms of worsening heart failure. These can include: Sudden weight gain Increased swelling of your legs or ankles Mild trouble breathing when you?re resting or at night Increase in the number of pillows you have to sleep on or feeling the need to sleep upright in achair Dry hacking cough No energy or feeling more tired Call 911 Call 911 if any of these occur: Chest pain Pressure, discomfort, or pain in the jaw, neck, or back A lot of trouble breathing, either at rest or with activity Abnormally fast pulse or pounding heartbeat Fainting or severe dizziness Confusion or can't think clearly Last Reviewed Date: 2023 00:00:00 [id number] [employer]. All rights reserved. This information is not intended as a substitute for professional medical care. Always follow your healthcare professional's instructions. * Ancillary Progress Note - Celena Drake RN - 04/30/2024 2:34 PM EST CARE MANAGEMENT - ADULT TRANSITION NOTE [facility] [address] Name: Kyler Mesa Location: [facility] H873/[id number] Date: 04/30/2024 Time: 2:34 PM Risk Stratification Risk Stratification Psycho Social / Medical Concerns Identified: Adjustment to illness/injury (04/28/241044) Accessed [employer] to connect patients to social care resources: No (04/28/241044) OBRA or OPTIONS needed for placement: No (04/28/241044) Readmission Risk Score: 11.72 (04/30/24 1200) AM-PAC Score With Stairs : 20 (04/30/24 1141) Caregiver Information Emergency Contacts Name Relation Home Work Mobile Taya Mesa Spouse [phone] Una Mesa Adult Child [phone] Other Contacts None on File Transition of Care Checklist Transition of Care Checklist (aka Readmission Risk Score) Discharge Disposition: Post-Acute (04/28/241046) Narrative: CM has been following Patient's hospital course. Patient discussed in IDT rounds. They are not medically stable for discharge at this time because patient continues getting diuresis. Discharge plan evolving - CM will continue to follow for discharge needs. Sent TT to Dr. Becerra, anticipates patient to be ready for discharge on Tuesday 05/02, updated David @[place]([phone]) on . Anticipated Transportation at Discharge: Family Patient/Family Expectations: IPR Transition Planning Transition Planning Transition Plan/Considerations: CM provided contact information and will update plan as needs arise;Discussed at Interdisciplinary Team / Boost Rounds;Needs identified - Discharge planning services explained to patient family / caregiver - Choices offered (04/28/241046) Transition services explained and patient/family/caregiver agreeable: Inpatient Rehab (04/28/241046) Transition plan discussed with - Enter name and phone #: Kyler (04/28/241046) Insurance Considerations: Therapy documentation needed for precert request (04/28/241046) Referral to Community Agency : N/A (04/28/241046) Post-Acute Care needs identified and Referrals Completed: N/A (04/28/241046) Care Management will continue to monitor and assist with discharge planning needs * Diagnostic Clarification - Sergio Becerra DO - 04/29/2024 3:44 PM EST The patient has been diagnosed with DEONNA on CKD stage 4 Acute on chronic HFpEF due to severe MR is/ was present and is a valid clinical diagnosis. * Ancillary Progress Note - Gera Marsh RN - 04/29/2024 7:37 AM EST CARE MANAGEMENT - ADULT TRANSITION NOTE [facility] [address] Name: Kyler Mesa Location: [facility] Date: 04/29/2024 Time: 8:50 AM Risk Stratification Risk Stratification Psycho Social / Medical Concerns Identified: Adjustment to illness/injury (04/28/241044) Accessed [employer] to connect patients to social care resources: No (04/28/241044) OBRA or OPTIONS needed for placement: No (04/28/241044) Readmission Risk Score: 13.07 (04/29/24 0801) AM-PAC Score With Stairs : 20 (04/29/24 0800) Caregiver Information Emergency Contacts Name Relation Home Work Mobile Taya Mesa Spouse [phone] Una Mesa Adult Child [phone] Other Contacts None on File Transition of Care Checklist Transition of Care Checklist (aka Readmission Risk Score) Discharge Disposition: Post-Acute (04/28/241046) Narrative: RASHAAD received message that Kyler is not medically stable for discharge. He is scheduled to d/c to [facility] for short term rehab. CM reached out to facility liaisonNelli. She stated that he can be admitted either day this weekend, when ready. RASHAAD gave Nelli NEIL office number to reach out over w/e. Anticipated Transportation at Discharge: family Patient/Family Expectations: Inpatient rehab Transition Planning Transition Planning Transition Plan/Considerations: CM provided contact information and will update plan as needs arise;Discussed at Interdisciplinary Team / Boost Rounds;Needs identified - Discharge planning services explained to patient family / caregiver - Choices offered (04/28/241046) Transition services explained and patient/family/caregiver agreeable: Inpatient Rehab (04/28/241046) Transition plan discussed with - Enter name and phone #: Kyler (04/28/241046) Insurance Considerations: Therapy documentation needed for precert request (04/28/241046) Referral to Community Agency : N/A (04/28/241046) Post-Acute Care needs identified and Referrals Completed: N/A (04/28/241046) Additional Considerations: n/a Care Management will continue to monitor and assist with discharge planning needs * Ancillary Progress Note - Gera Marsh RN - 04/28/2024 10:55 AM EST POST ACUTE CARE CARE MANAGEMENT [facility] [address] Name: Kyler Mesa Location: [facility] Date: 04/28/2024 Time: 10:55 AM Post-Acute Care Patient General Information Living Quarters: House (04/28/241044) How many stories is the dwelling?: One Story (04/28/241044) Number of steps to enter living quarters:: ramp (04/28/241044) Location of bathroom(s): All floors or Single story dwelling (04/28/241044) Do you have serious difficulty walking or climbing stairs? (5 years old or older): Yes (04/28/2446) History of falling: Yes (04/27/24612) What was your living situation prior to admission/observation?: Independently;With Spouse () Do you have any children, pets, or other dependents that you are currently caring for?: No (04/28/241044) AM-PAC Score With Stairs : 17 (04/28/24 0840) Post-Acute Care with AM-PAC < 17.99 Rehab diagnosis: Access IRF (04/28/241045) Inpatient Rehab Facility (IRF) Guidelines (1-8): Requires face to face interaction with a rehabilitative physician at a minimum of 3 times per week;Requires access to a rehabilitative RN 20/10;Able toparticipate in intensive therapy program consisting of treatment at a minimum of 3 hours per day 5 days per week;Indicate therapy modalities;Able to participate in rehabilitative therapy program including realistic goals with predictable timeframes for completion of goals;Rehabilitation intensity and frequency makes the services impracticable to obtain in less intense setting;Requires coordination care conference at least 1 time/week;Frequent assessment of progression toward goals (04/28/241045) Therapy Modalities: Physical Therapy;Occupational Therapy (04/28/241045) Inpatient Rehab Facility (IRF) Guidelines (9-12): Assistance with resolution of issues impeding rehabilitative progress;Established rehabilitative progress;Frequent re-assessment of established rehabilitative progress;Frequent monitoring and or revision of treatment plan (04/28/241045) Meets criteria for Inpatient Rehab Facility (IRF): Patient meets criteria for IRF (04/28/241045) Referral made to [facility] as patient and family requested. * Ancillary Progress Note - Gera Marsh RN - 04/28/2024 10:48 AM EST CARE MANAGEMENT - ADULT INITIAL SCREENING [address] [address] Name: Kyler Mesa [facility] Date: 04/28/2024 Time: 10:49 AM Discussed patient with the interdisciplinary care team. This Wireless Telegrapher performed a chart review and met with Kyler to complete admission screen and assessed needs for transition planning. The day care supervisor role and services were explained and emotional support was provided. Chief Complaint: No chief complaint on file. Prior Living Arrangements What was your living situation prior to admission/observation?: Independently;With Spouse ([phone]) Living Quarters: House (04/28/241044) Number of steps to enter living quarters:: ramp (04/28/241044) Do you have serious difficulty walking or climbing stairs? (5 years old or older): Yes (04/28/2446) History of falling: Yes (04/27/24612) Prior Level of Functioning Describe the patient's ability prior to admission/observation to perform ADLs: Performs independently (04/28/241044) Requires assistance with: Bathing (04/28/2446) Describe the patient's mobility status prior to admission: Patient ambulates independently;Patient can sit up in bed;Patient is able to sit on bedside (04/28/241044) Patient uses assistive device: Yes (04/28/241044) If yes, choose:: Cane (04/28/241044) Caregiver Information Emergency Contacts Name Relation Home Work Mobile Taya Mesa Spouse [phone] MesaUna brantley Adult Child [phone] Other Contacts None on File Blake live in a single story home with a ramp to enter. He is able to complete his ADL/IADLs independently. He ambulates with a cane, having no other DME at home. He is requesting short term rehab stay at [facility] in [place]. Therapy notes in and referral made. Risk Stratification/Psychosocial/Care Gaps Risk Stratification Psycho Social / Medical Concerns Identified: Adjustment to illness/injury (04/28/241044) [facility] patients to [facility] care resources: No (04/28/241044) OBRA or OPTIONS needed for placement: No (04/28/241044) Readmission Risk Score: 11.85 (04/28/24 0801) AM-PAC Score With Stairs : 17 (04/28/24 0840) Prior to Admission Services Services Prior to Admission RIGHT OF WAY BUYER Services (Services received within the last 30 days with exception, Psych within last two years): Durable Medical Equipment (04/28/241044) RIGHT OF WAY BUYER Durable Medical Equipment (DME) in home: Cane (04/28/241044) RIGHT OF WAY BUYER Transportation (Services received within the last 30 days): Patient drives self;Family/Friends Personal Vehicle (04/28/24 1045) Outpatient Wireless Telegrapher: No care steamfitter supervisor to display Patient/Family Expectations: rehab at [facility] For further screening information, please refer to the Care Management flow document. * Communication - Landon Bryant DO - 04/27/2024 8:48 PM EST POST-MITRAL CLIP CHECK Subjective: Patient doing well post-procedure. He reports intermittent bilateral foot tingling that began post-procedure which comes and goes. It was more pronounced immediately after the procedure but is now improving. He denies persistent symptoms, weakness, or other sensory deficits. His femoral access sites are covered with transparent dressings and have no signs of hematoma formation. His extremities are warm and Also denies any chest pain, shortness of breath, palpitations, headaches, nausea, vomiting, abdominal pain. Objective: BP 117/87 | Pulse 84 | Temp 36.3 C (97.4 F) (Tympanic) | Resp 16 | Ht 1.676 m (5' 6") | Wt 98 kg (216 lb) | SpO2 96% | BMI 34.86 kg/m | BSA 2.14 m Peripheral Line Right;Lower Arm 20 Gauge (Active) Number of days: 1 General: Patient in no apparent distress. HEENT: normocephalic, atraumatic. Heart: regular rate and rhythm; S1 and S2 present; no murmurs, rubs or gallops. Pulmonary: Lungs clear to auscultation bilaterally; no wheezes, rhonchi or crackles. Abdomen: Soft, non-tender, non-distended. Normal bowel sounds and no rebound or guarding. Extremities: moderate pitting edema to both extremities to the level of knees. Neuro: AAOx3, tendon reflexes not increased in bilateral lower extremities, sensation and motor function intact. Psych: Appropriate mood and affect. Assessment/Plan: Kyler Mesa is a 83 year old male who underwent mitral clip procedure. . Currently hemodynamically stable and no active bleeding. Rest of management per day team note. Landon Bryant DO Resident Physician * Respiratory Progress Note - Spring Cai DOCUMENT EXAMINER - 04/27/2024 4:15 PM EST PATIENT DRIVEN PROTOCOL - Respiratory Care Services [address] [address] Name: Kyler Mesa [facility] Date: 04/27/2024 Time: 4:15 PM Patient Driven Protocol Summary: Initial evaluation performed. This Treatment Plan and medications will be reviewed by the Primary Care Team for any contraindications. Respiratory Care Treatment Plan Pulmonary Volume Expansion Therapy: Incentive Spirometry PRN to prevent or treat alveolar consolidation and atelectasis. . Secretion Management Treatment: Flutter TherapyPRN to enhance mobilization of secretions. . The patient will be re-evaluated: No re-evaluation needed. Indications for treatment met. The Triage Level is: (Assessment Score = 11-15) Level 3. Triage Level Definitions: Level 1 Severe Respiratory/Airway Compromise Level 2 Moderate Respiratory/Airway Compromise or high risk for pulmonary complications Level 3 Mild Respiratory/Airway Compromise or moderate risk for pulmonary complications Level 4 Episodic Respiratory/Airway Compromise or low risk for pulmonary complications Level 5 No Respiratory/Airway Compromise Triage 1 Triage 2 Triage 3 Triage 4 Triage 5 greater than 20 16 - 20 11 - 15 6 - 10 0 - 5 Medical Record Assessment Clinical Findings Pulmonary Status: 3 - Pulm Impairment (acute or chronic) w/o exacerbation, or 1 - 2 rib fractures Surgical Status: 1 - General Surgery Chest X-Ray: 2 - Infiltrates and/or Atelectasis Assessment Score: 6 Patient Assessment Clinical Findings Respiratory Pattern: 0 - RR 12 - 20; Patient only gets breathless with strenuous exercise. Breath Sounds: 2 - Diminished bilaterally Cough Effectiveness: 0 - Strong non-productive Sputum Production: 0 - No sputum production Level of Activity: 2 - Temporarily non-ambulatory O2 needed to keep SpO2 greater than or equal to 92%: 1 - Oxygen 1-3 LPM or FiO2 less than 35% Assessment Score: 5 Total Assessment Score: 11 Breath Sounds: Inspiratory and expiratory diminished bilaterally.. Cough and Sputum: No cough was present.. CXR: EXAM XR CHEST 1 VIEW-04/27/2024 2:27 pm HISTORY baseline initial xray after open heart surgery COMPARISON None TECHNIQUE Single frontal view of the chest. FINDINGS See impression below. IMPRESSION IMPRESSION Lines/Tubes: None. Lungs/Pleura: Mild pulmonary edema with small right pleural effusion. Minimal bibasilar atelectasis. No pneumothorax. Heart/Mediastinum: Cardiomediastinal silhouette is enlarged. Status post aortic valve replacement and mitral clips.. Vital Signs: Resp: 25 (04/27/24 1500) Pulse: 110 (04/27/24 1500) Temp: 35.9 C (96.6 F) (04/27/24 1115) BP: 102/73 (04/27/24 1500) SpO2: 97 % (04/27/24 1500) PFT: Minimal Predicted IC: 0.968 L. Inspiratory capacity: 1.5L. Primary Service: Cardiology Med B. Admitting Diagnosis: Mitral regurgitation [I34.0] S/P mitral valve clip implantation [Z98.890, Z95.818] Pulmonary Diagnosis: Atelectasis, FIFI, Pleural Effusions, and mild pulmonary edema . Prescriptions/Home Medications/Durable Medical Equipment: Per Patient: No medications. Nocturnal BIPAP 11/12. Recommended New home medications/durable medical equipment/outpatient pulmonary/sleep referral: None. * Ancillary Progress Note - Nevin Calderón RCIS - 04/27/2024 11:03 AM EST [address] [address] Ancillary Progress Note Patient Name: Kyler Mesa Date: 04/27/2024 Patient will be escorted to CRS-Cardiac Recovery Suite. We performed a Transcatheter Edge to Edge repair on this patient.. The right femoral vein 22 FR and left femoral vein 7 FR was used for access with a 7 and 22 Telugu sheaths. A Perclose was used to close the RFVsite. Manual pressure was held to close the left femoral venous site. There is no hematoma and no ooze from the cath site noted. CHGTegaderm dressing applied to sites. The right radial artery was used for access;a the right radial A line was removed and a Radial band was placed with 10 ml or air instilled. Distal pulses were palpated at the b/l pedals and the right radial as well; instructions to patient and the RN assuming care for patient recovery were given. There were no complications during the case. Please see the MAR for the medications that were given. See Cath Procedure Log for patient vitals during the case. documented in this encounter Plan of Treatment Upcoming Encounters Date Type Department Care Team (Late st Contact Info) Description 05/31/2024 3:00 PM EST Cardiac Studies Cardiac Studies, [address] [place] [id number] 06/06/2024 1:30 PM EDT Laboratory Laboratory, [address] [place] [phone] Cintia Jimenez [address] [place] [address] 06/06/2024 2:00 PM EDT Office Visit Cardiology, [facility] [address] [facility] [place] [address] Herlinda Venegas PA-C [address] [place] [phone] Pending Results Name Type Priority Associated Diagnoses Date/Time TRANSESOPHAGEAL ECHO (COMPLETE) Echocardiology Routine Valvular heart disease 04/27/2024 11:07 AM EST Scheduled Orders Name Type Priority Associated Diagnoses Orde r Schedule TRANSESOPHAGEAL ECHO (COMPLETE) Echocardiology Routine Valvular heart disease One Time for 1 Occurrences starting 04/27/2024 until 04/27/2024 BASIC METABOLIC PANEL Lab Routine Nonrheumatic mitral (valve) insufficiency [I34.0] Expected: 05/02/2024, Expires: 05/02/2025 Scheduled Referrals Name Type Priority Associated Diagnoses Orde r Schedule CARDIAC REHAB REFERRAL OP Referral Within 30 days (routine) S/P mitral valve clip implantation Ordered: 04/27/2024 VALVE CLINIC REFERRAL OP Referral Within 10 days (routine) Nonrheumatic mitral (valve) insufficiency [I34.0] Ordered: 05/02/2024 Health Maintenance Due Date Last Done Comments Depression Screening 1952 Albumin/Creatinine Ratio 1960 DTap/Tdap Vaccines (1 - Tdap) 1959 COVID-19 Vaccine ( season) 2023 01/21/2023, 03/11/2022, 01/21/2021, Additional history exists GFR 10/31/2024 05/03/2024, 05/2024, 05/01/2024, Additional history exists Zoster Vaccines Completed 03/30/2018, 12/24/2017 Pneumococcal Vaccine: 50+ Years Completed 01/09/2021, 01/14/2018, 01/01/2016, Additional history exists Influenza Vaccine (FLU shot) Completed , 01/03/2021, 12/28/2013 HPV (Gardasil) Vaccine Aged Out No lo nger eligible based on patient's age to complete this topic Hepatitis B Vaccine Aged Out No longe r eligible based on patient's age to complete this topic MENINGOCOCCAL (MENACTRA/MENVEO) Aged Out No longer eligible based on patient's age to complete this topic documented as of this encounter Medical Devices Implanted Type Area Chlorine Operator Device Identifier Shelf Expiration Date Model / Serial / Lot Jake Precision Cali Implant System Implanted:Qty: 1 on 04/27/2024 by Hamida Patel MD at [facility] [employer] [id number] 11/23/2024199936458BCQX / [id number] / [id number] Jake Precision Cali Implant System Implanted:Qty: 1 on 04/27/2024 by Hamida Patel MD at [facility] [employer] [id number] 11/24/2024199913944CLNS / [id number] / [id number] documented as of this encounter Procedures Procedure Name Priority Date/Time Associated Diagnosis Comments BASIC METABOLIC PANEL STAT 05/02/2024 9:23 AM EST MAGNESIUM STAT 05/02/2024 9:23 AM EST CBC STAT 05/02/2024 6:06 AM EST BASIC METABOLIC PANEL STAT 05/01/2024 7:22 PM EST MAGNESIUM STAT 05/01/2024 7:22 PM EST BASIC METABOLIC PANEL STAT 05/01/2024 9:30 AM EST CBC STAT 05/01/2024 9:30 AM EST MAGNESIUM STAT 05/01/2024 9:30 AM EST GLUCOSE METER, POINT OF CARE YVON 05/01/2024 6:42 AM EST GLUCOSE METER, POINT OF CARE YVON 04/30/2024 9:13 PM EST BASIC METABOLIC PANEL STAT 04/30/2024 7:32 PM EST MAGNESIUM STAT 04/30/2024 7:32 PM EST GLUCOSE METER, POINT OF CARE YVON 04/30/2024 4:43 PM EST GLUCOSE METER, POINT OF CARE YVON 04/30/2024 11:11 AM EST BASIC METABOLIC PANEL STAT 04/30/2024 8:49 AM EST MAGNESIUM STAT 04/30/2024 8:49 AM EST CBC STAT 04/30/2024 4:35 AM EST GLUCOSE METER, POINT OF CARE YVON 04/29/2024 9:45 PM EST BASIC METABOLIC PANEL STAT 04/29/2024 8:03 PM EST MAGNESIUM STAT 04/29/2024 8:03 PM EST GLUCOSE METER, POINT OF CARE Y[facility]ON 04/29/2024 4:59 PM EST BASIC METABOLIC PANEL Routine 04/29/2024 1:58 PM EST GLUCOSE METER, POINT OF CARE [facility] 04/29/2024 11:04 AM EST BASIC METABOLIC PANEL STAT 04/29/2024 7:55 AM EST MAGNESIUM STAT 04/29/2024 7:55 AM EST GLUCOSE METER, POINT OF CARE [facility] 04/29/2024 7:27 AM EST CBC STAT 04/29/2024 3:56 AM EST BASIC METABOLIC PANEL STAT 04/28/2024 11:01 PM EST MAGNESIUM STAT 04/28/2024 11:01 PM EST GLUCOSE METER, POINT OF CARE [facility] 04/28/2024 9:12 PM EST GLUCOSE METER, POINT OF CARE [facility] 04/28/2024 6:15 PM EST GLUCOSE METER, POINT OF CARE [facility] 04/28/2024 11:34 AM EST GLUCOSE METER, POINT OF CARE [facility] 04/28/2024 8:39 AM EST BASIC METABOLIC PANEL STAT 04/28/2024 8:17 AM EST MAGNESIUM STAT 04/28/2024 8:17 AM EST ECHO, COMPLETE (2D), TRANS-THORACIC Routine 04/28/2024 7:30 AM EST S/P TAVR (transcatheter aortic valve replacement) XR CHEST 1 VIEW Routine 04/28/2024 5:49 AM EST Encounter for surgical aftercare following surgery on the circulatory system Cardiomegaly Pleural effusion, not elsewhere classified Other nonspecific abnormal finding of lung field HC ECG TRACING ONLY Routine 04/28/2024 4 :47 AM EST Post-operative state HEMOGLOBIN A1C Add-on 04/28/2024 4:01 AM EST CBC STAT 04/28/2024 4:01 AM EST BASIC METABOLIC PANEL STAT 04/27/2024 7:59 PM EST MAGNESIUM STAT 04/27/2024 7:59 PM EST XR CHEST 1 VIEW STAT 04/27/2024 2:27 PM EST Encounter for surgical aftercare following surgery on the circulatory system Pleural effusion, not elsewhere classified Chronic pulmonary edema Atelectasis Cardiomegaly S/P TAVR (transcatheter aortic valve replacement) S/P mitral valve clip implantation Post-operative state BASIC METABOLIC PANEL STAT 04/27/2024 2:00 PM EST CBC STAT 04/27/2024 2:00 PM EST MAGNESIUM STAT 04/27/2024 2:00 PM EST HC ECG TRACING ONLY STAT 04/27/2024 1 1:18 AM EST Post-operative state ACT, POINT OF CARE YVON 04/27/2024 10 :48 AM EST ACT, POINT OF CARE YVON 04/27/2024 10 :11 AM EST ACT, POINT OF CARE YVON 04/27/2024 9: 54 AM EST ACT, POINT OF CARE YVON 04/27/2024 9: 42 AM EST HC ECG TRACING ONLY STAT 04/27/2024 7 :07 AM EST S/P TAVR (transcatheter aortic valve replacement) BNP (NT-PROBNP) Routine 04/27/2024 7:01 AM EST HEPATIC FUNCTION PANEL Routine 7:01 AM EST BASIC METABOLIC PANEL Routine 04/27/2024 7:01 AM EST ABO/RH STAT 04/27/2024 7:01 AM EST TYPE AND SCREEN Routine 04/27/2024 7:01 AM EST PT INR Routine 04/27/2024 7:01 AM EST CBC Routine 04/27/2024 7:01 AM EST HC COMPATIBILITY ELECTRONIC CROSSMATCH STAT 04/27/2024 5:55 AM EST CARDIAC CATHETERIZATION REPORT Routine 04/27/2024 documented in this encounter Results * (ABNORMAL) BASIC METABOLIC PANEL (05/02/2024 9:23 AM EST) BUN 60(H) 6 - 20 mg/dL 05/02/2024 10:16 AM EST [facility] CREATININE 3.0(H) 0.6 - 1.2 mg/dL 05/02/2024 10:16 AM EST [facility] EGFR 21(L) >=60 mL/min 05/02/2024 10:16 AM EST [facility] Comment:eGFR is calculated b ased on the CKD-EPI 2020 equation. SODIUM 138 135 - 146 mmol/L 05/02/2024 10:16 AM EST [facility] POTASSIUM 3.6 3.5 - 5.1 mmol/L 05/02/2024 10:16 AM EST [facility] CHLORIDE 92(L) 98 - 107 mmol/L 05/02/2024 10:16 AM EST [facility] CO2 34(H) 22 - 32 mmol/L 05/02/2024 10:16 AM EST [facility] ANION GAP 12 7 - 15 mmol/L 05/02/2024 10:16 AM EST [facility] GLUCOSE 204(H) 70 - 120 mg/dL 05/02/2024 10:16 AM EST [facility] CALCIUM 10.4(H) 8.4 - 10.2 mg/dL 05/02/2024 10:16 AM EST [facility] Blood Venous blood specimen / Unknown Venipuncture / Unknown 05/02/2024 9:23 AM EST 05/02/2024 9:45 AM EST us Luba Balbuena MD LAB BLOOD ORDERABLES Final Resul t Performing Organization Address City/[facility]/ZIP Co de Phone Number LABORATORY [facility] [address] [place] [address] * MAGNESIUM (05/02/2024 9:23 AM EST) Magnesium 2.1 1.5 - 2.6 mg/dL 05/02/2024 10:16 AM EST [facility] Blood Venous blood specimen / Unknown Venipuncture / Unknown 05/02/2024 9:23 AM EST 05/02/2024 9:45 AM EST us Luba Balbuena MD LAB BLOOD ORDERABLES Final Resul t Performing Organization Address [facility] de Phone Number LABORATORY [facility] [address] [place] [address] * (ABNORMAL) CBC (05/02/2024 6:06 AM EST) WBC 7.63 4.00 - 10.80 K/uL 05/02/2024 6:41 AM EST [facility] RBC 4.54 4.50 - 5.25 M/uL 05/02/2024 6:41 AM EST [facility] HGB 11.5(L) 14.0 - 16.8 g/dL 05/02/2024 6:41 AM EST [facility] HCT 38.8(L) 40.0 - 48.4 % 05/02/2024 6:41 AM EST [facility] MCV 85.5 82.0 - 99.5 fL 05/02/2024 6:41 AM EST [facility] MCH 25.3 27.0 - 34.0 pg 05/02/2024 6:41 AM EST [facility] MCHC 29.6 32.0 - 36.0 g/dL 05/02/2024 6:41 AM EST [facility] RDW 16.5 11.5 - 15.5 % 05/02/2024 6:41 AM EST [facility] PLT 150 140 - 400 K/uL 05/02/2024 6:41 AM EST [facility] MPV 10.2 6.6 - 11.1 fL 05/02/2024 6:41 AM EST [facility] nRBCs 0 <=0 /100 WBCs 05/02/2024 6:41 AM EST [facility] Blood Venous blood specimen / Unknown Venipuncture / Unknown 05/02/2024 6:06 AM EST 05/02/2024 6:28 AM EST us Luba Balbuena MD LAB BLOOD ORDERABLES Final Resul t [facility] [address] [place] [address] * (ABNORMAL) BASIC METABOLIC PANEL (05/01/2024 7:22 PM EST) BUN 58(H) 6 - 20 mg/dL 05/01/2024 8:35 PM EST [facility] CREATININE 3.2(H) 0.6 - 1.2 mg/dL 05/01/2024 8:35 PM EST [facility] EGFR 19(L) >=60 mL/min 05/01/2024 8:35 PM EST [facility] Comment:eGFR is calculated b ased on the CKD-EPI 2020 equation. SODIUM 139 135 - 146 mmol/L 05/01/2024 8:35 PM EST [facility] POTASSIUM 3.9 3.5 - 5.1 mmol/L 05/01/2024 8:35 PM EST [facility] CHLORIDE 96(L) 98 - 107 mmol/L 05/01/2024 8:35 PM EST [facility] CO2 35(H) 22 - 32 mmol/L 05/01/2024 8:35 PM EST [facility] ANION GAP 8 7 - 15 mmol/L 05/01/2024 8:35 PM EST [facility] GLUCOSE 192(H) 70 - 120 mg/dL 05/01/2024 8:35 PM EST [facility] CALCIUM 10.2 8.4 - 10.2 mg/dL 05/01/2024 8:35 PM EST [facility] Blood Venous blood specimen / Unknown Venipuncture / Unknown 05/01/2024 7:22 PM EST 05/01/2024 8:02 PM EST us Luba Balbuena MD LAB BLOOD ORDERABLES Final Resul t Performing Organization Address City/[facility]/ZIP Co de Phone Number LABORATORY [facility] [address] [place] [address] * MAGNESIUM (05/01/2024 7:22 PM EST) Magnesium 2.2 1.5 - 2.6 mg/dL 05/01/2024 8:35 PM EST [facility] Blood Venous blood specimen / Unknown Venipuncture / Unknown 05/01/2024 7:22 PM EST 05/01/2024 8:02 PM EST us Luba Balbuena MD LAB BLOOD ORDERABLES Final Resul t Performing Organization Address [facility] de Phone Number LABORATORY [facility] [address] [place] [address] * (ABNORMAL) BASIC METABOLIC PANEL (05/01/2024 9:30 AM EST) BUN 57(H) 6 - 20 mg/dL 05/01/2024 10:15 AM EST [facility] CREATININE 2.9(H) 0.6 - 1.2 mg/dL 05/01/2024 10:15 AM EST [facility] EGFR 21(L) >=60 mL/min 05/01/2024 10:15 AM EST [facility] Comment:eGFR is calculated b ased on the CKD-EPI 2020 equation. SODIUM 140 135 - 146 mmol/L 05/01/2024 10:15 AM EST [facility] POTASSIUM 3.9 3.5 - 5.1 mmol/L 05/01/2024 10:15 AM EST [facility] CHLORIDE 97(L) 98 - 107 mmol/L 05/01/2024 10:15 AM EST [facility] CO2 32 22 - 32 mmol/L 05/01/2024 10:15 AM EST [facility] ANION GAP 11 7 - 15 mmol/L 05/01/2024 10:15 AM EST [facility] GLUCOSE 220(H) 70 - 120 mg/dL 05/01/2024 10:15 AM EST [facility] CALCIUM 10.2 8.4 - 10.2 mg/dL 05/01/2024 10:15 AM EST [facility] Blood Venous blood specimen / Unknown Venipuncture / Unknown 05/01/2024 9:30 AM EST 05/01/2024 9:47 AM EST us Luba Balbuena MD LAB BLOOD ORDERABLES Final Resul t Performing Organization Address City/[facility] Co de Phone Number LABORATORY [facility] [address] [place] [address] * MAGNESIUM (05/01/2024 9:30 AM EST) Magnesium 2.0 1.5 - 2.6 mg/dL 05/01/2024 10:15 AM EST [facility] Blood Venous blood specimen / Unknown Venipuncture / Unknown 05/01/2024 9:30 AM EST 05/01/2024 9:47 AM EST us Luba Balbuena MD LAB BLOOD ORDERABLES Final Resul t Performing Organization Address [facility] de Phone Number LABORATORY [facility] [address] [place] [address] * (ABNORMAL) CBC (05/01/2024 9:30 AM EST) WBC 7.17 4.00 - 10.80 K/uL 05/01/2024 9:55 AM EST [facility] RBC 4.31 4.50 - 5.25 M/uL 05/01/2024 9:55 AM EST [facility] HGB 10.7(L) 14.0 - 16.8 g/dL 05/01/2024 9:55 AM EST [facility] HCT 37.1(L) 40.0 - 48.4 % 05/01/2024 9:55 AM EST [facility] MCV 86.1 82.0 - 99.5 fL 05/01/2024 9:55 AM EST [facility] MCH 24.8 27.0 - 34.0 pg 05/01/2024 9:55 AM EST [facility] MCHC 28.8 32.0 - 36.0 g/dL 05/01/2024 9:55 AM EST [facility] RDW 16.4 11.5 - 15.5 % 05/01/2024 9:55 AM EST [facility] PLT 148 140 - 400 K/uL 05/01/2024 9:55 AM EST [facility] MPV 10.2 6.6 - 11.1 fL 05/01/2024 9:55 AM EST [facility] nRBCs 0 <=0 /100 WBCs 05/01/2024 9:55 AM EST [facility] Blood Venous blood specimen / Unknown Venipuncture / Unknown 05/01/2024 9:30 AM EST 05/01/2024 9:47 AM EST us Luba Balbuena MD LAB BLOOD ORDERABLES Final Resul t LABORATORY [facility] [address] [place] [address] * GLUCOSE METER, POINT OF CARE (05/01/2024 6:42 AM EST) [facility] Glucose - POCT 96 70 - 120 mg/dL 05/01/2024 6:45 AM EST [facility] Blood Whole blood specimen / Unknown 05/01/2024 6:42 AM EST 05/01/2024 6:45 AM EST us Sergio Becerra DO LAB POINT OF CARE TEST DOCKED DEVICE UNSOLICITED RESULTS Final Result [facility] [address] [place] [address] * GLUCOSE METER, POINT OF CARE (04/30/2024 9:13 PM EST) Pathologist [facility] Glucose - POCT 79 70 - 120 mg/dL 04/30/2024 9:16 PM EST [facility] Blood Whole blood specimen / Unknown 04/30/2024 9:13 PM EST 04/30/2024 9:16 PM EST Sergio Vinod Becerra DO LAB POINT OF CARE TEST DOCKED DEVICE UNSOLICITED RESULTS Final Result [facility] [address] [place] [address] * (ABNORMAL) BASIC METABOLIC PANEL (04/30/2024 7:32 PM EST) [facility] BUN 55(H) 6 - 20 mg/dL 04/30/2024 8:05 PM EST [facility] CREATININE 3.0(H) 0.6 - 1.2 mg/dL 04/30/2024 8:05 PM EST [facility] EGFR 20(L) >=60 mL/min 04/30/2024 8:05 PM EST [facility] Comment:eGFR is calculated b ased on the CKD-EPI 2020 equation. SODIUM 140 135 - 146 mmol/L 04/30/2024 8:05 PM EST [facility] POTASSIUM 3.0(L) 3.5 - 5.1 mmol/L 04/30/2024 8:05 PM EST [facility] CHLORIDE 96(L) 98 - 107 mmol/L 04/30/2024 8:05 PM EST [facility] CO2 35(H) 22 - 32 mmol/L 04/30/2024 8:05 PM EST [facility] ANION GAP 9 7 - 15 mmol/L 04/30/2024 8:05 PM EST [facility] GLUCOSE 148(H) 70 - 120 mg/dL 04/30/2024 8:05 PM EST [facility] CALCIUM 10.1 8.4 - 10.2 mg/dL 04/30/2024 8:05 PM EST [facility] Blood Venous blood specimen / Unknown Venipuncture / Unknown 04/30/2024 7:32 PM EST 04/30/2024 7:37 PM EST Luba Balbuena MD LAB BLOOD ORDERABLES Final Resul t Performing Organization Address City/[facility]/ZIP Co de Phone Number LABORATORY [place] [address] [place] [address] * MAGNESIUM (04/30/2024 7:32 PM EST) Magnesium 2.1 1.5 - 2.6 mg/dL 04/30/2024 8:05 PM EST LABORATORY [facility] Blood Venous blood specimen / Unknown Venipuncture / Unknown 04/30/2024 7:32 PM EST 04/30/2024 7:37 PM EST Luba Balbuena MD LAB BLOOD ORDERABLES Final Resul t Performing Organization Address City/[facility]/ZIP Co de Phone Number LABORATORY [place] [address] [place] [address] * GLUCOSE METER, POINT OF CARE (04/30/2024 4:43 PM EST) Glucose - POCT 107 70 - 120 mg/dL 04/30/2024 4:56 PM EST [employer] Blood Whole blood specimen / Unknown 04/30/2024 4:43 PM EST 04/30/2024 4:56 PM EST Sergio Becerra DO LAB POINT OF CARE TEST DOCKED DEVICE UNSOLICITED RESULTS Final Result Performing Organization Address City/[facility]/ZIP Co de Phone Number [facility] [address] [place] [address] * GLUCOSE METER, POINT OF CARE (04/30/2024 11:11 AM EST) Glucose - POCT 97 70 - 120 mg/dL 04/30/2024 11:18 AM EST [employer] Blood Whole blood specimen / Unknown 04/30/2024 11:11 AM EST 04/30/2024 11:18 AM EST Sergio Vinod Mariam DO LAB POINT OF CARE TEST DOCKED DEVICE UNSOLICITED RESULTS Final Result [facility] [address] [place] [address] * (ABNORMAL) BASIC METABOLIC PANEL (04/30/2024 8:49 AM EST) BUN 52(H) 6 - 20 mg/dL 04/30/2024 9:57 AM EST [facility] CREATININE 2.8(H) 0.6 - 1.2 mg/dL 04/30/2024 9:57 AM EST [facility] EGFR 22(L) >=60 mL/min 04/30/2024 9:57 AM EST [facility] Comment:eGFR is calculated b ased on the CKD-EPI 2020 equation. SODIUM 141 135 - 146 mmol/L 04/30/2024 9:57 AM EST [facility] POTASSIUM 3.1(L) 3.5 - 5.1 mmol/L 04/30/2024 9:57 AM EST [facility] CHLORIDE 98 98 - 107 mmol/L 04/30/2024 9:57 AM EST [facility] CO2 32 22 - 32 mmol/L 04/30/2024 9:57 AM EST [facility] ANION GAP 11 7 - 15 mmol/L 04/30/2024 9:57 AM EST [facility] GLUCOSE 230(H) 70 - 120 mg/dL 04/30/2024 9:57 AM EST [facility] CALCIUM 10.2 8.4 - 10.2 mg/dL 04/30/2024 9:57 AM EST LABORATORY C Blood Venous blood specimen / Unknown Venipuncture / Unknown 04/30/2024 8:49 AM EST 04/30/2024 8:53 AM EST us Luba Balbuena MD LAB BLOOD ORDERABLES Final Resul t LAB[facility]ATORY [facility] [address], [place] [id number] * MAGNESIUM (04/30/2024 8:49 AM EST) Magnesium 2.2 1.5 - 2.6 mg/dL 04/30/2024 9:57 AM EST [facility] Blood Venous blood specimen / Unknown Venipuncture / Unknown 04/30/2024 8:49 AM EST 04/30/2024 8:53 AM EST Luba Balbuena MD LAB BLOOD ORDERABLES Final Resul t LAB[facility]ATORY [facility] [address] [place] [address] * (ABNORMAL) CBC (04/30/2024 4:35 AM EST) WBC 8.04 4.00 - 10.80 K/uL 04/30/2024 5:20 AM EST [facility] RBC 4.50 4.50 - 5.25 M/uL 04/30/2024 5:20 AM EST [facility] HGB 11.2(L) 14.0 - 16.8 g/dL 04/30/2024 5:20 AM EST [facility] HCT 38.4(L) 40.0 - 48.4 % 04/30/2024 5:20 AM EST [facility] MCV 85.3 82.0 - 99.5 fL 04/30/2024 5:20 AM EST [facility] MCH 24.9 27.0 - 34.0 pg 04/30/2024 5:20 AM EST [facility] MCHC 29.2 32.0 - 36.0 g/dL 04/30/2024 5:20 AM EST [facility] RDW 16.3 11.5 - 15.5 % 04/30/2024 5:20 AM EST [facility] PLT 160 140 - 400 K/uL 04/30/2024 5:20 AM EST [facility] MPV 10.0 6.6 - 11.1 fL 04/30/2024 5:20 AM EST [facility] nRBCs 0 <=0 /100 WBCs 04/30/2024 5:20 AM EST [facility] Blood Venous blood specimen / Unknown Venipuncture / Unknown 04/30/2024 4:35 AM EST 04/30/2024 5:06 AM EST Luba Balbuena MD LAB BLOOD ORDERABLES Final Resul t LABORATORY [facility] [address] [place] [address] * GLUCOSE METER, POINT OF CARE (04/29/2024 9:45 PM EST) [facility] Glucose - POCT 99 70 - 120 mg/dL 04/29/2024 10:03 PM EST [facility] Blood Whole blood specimen / Unknown 04/29/2024 9:45 PM EST 04/29/2024 10:03 PM EST Sergio Becerra DO LAB POINT OF CARE TEST DOCKED DEVICE UNSOLICITED RESULTS Final Result [facility] [address] [place] [address] * (ABNORMAL) BASIC METABOLIC PANEL (04/29/2024 8:03 PM EST) [facility] BUN 53(H) 6 - 20 mg/dL 04/29/2024 8:37 PM EST [facility] CREATININE 3.1(H) 0.6 - 1.2 mg/dL 04/29/2024 8:37 PM EST [facility] EGFR 19(L) >=60 mL/min 04/29/2024 8:37 PM EST [facility] Comment:eGFR is calculated b ased on the CKD-EPI 2020 equation. SODIUM 140 135 - 146 mmol/L 04/29/2024 8:37 PM EST [facility] POTASSIUM 4.2 3.5 - 5.1 mmol/L 04/29/2024 8:37 PM EST [facility] CHLORIDE 98 98 - 107 mmol/L 04/29/2024 8:37 PM EST [facility] CO2 31 22 - 32 mmol/L 04/29/2024 8:37 PM EST [facility] ANION GAP 11 7 - 15 mmol/L 04/29/2024 8:37 PM EST [facility] GLUCOSE 117 70 - 120 mg/dL 04/29/2024 8:37 PM EST [facility] CALCIUM 10.2 8.4 - 10.2 mg/dL 04/29/2024 8:37 PM EST [facility] Blood Venous blood specimen / Unknown Venipuncture / Unknown 04/29/2024 8:03 PM EST 04/29/2024 8:07 PM EST Luba Balbuena MD LAB BLOOD ORDERABLES Final Resul t Performing Organization Address City/[facility]/ZIP Co de Phone Number LABORATORY [facility] [address] [place] [address] * MAGNESIUM (04/29/2024 8:03 PM EST) Pathologist [facility] Magnesium 2.2 1.5 - 2.6 mg/dL 04/29/2024 8:37 PM EST LABORATORY [facility] Blood Venous blood specimen / Unknown Venipuncture / Unknown 04/29/2024 8:03 PM EST 04/29/2024 8:07 PM EST Luba Balbuena MD LAB BLOOD ORDERABLES Final Resul t Performing Organization Address [facility] Co de Phone Number LABORATORY [facility] [address] [place] [address] * GLUCOSE METER, POINT OF CARE (04/29/2024 4:59 PM EST) [facility] Glucose - POCT 100 70 - 120 mg/dL 04/29/2024 5:05 PM EST [facility] Blood Whole blood specimen / Unknown 04/29/2024 4:59 PM EST 04/29/2024 5:05 PM EST Sergio Becerra DO LAB POINT OF CARE TEST DOCKED DEVICE UNSOLICITED RESULTS Final Result Performing Organization Address City/[facility] Co de Phone Number [facility] [address] [place] [address] * (ABNORMAL) BASIC METABOLIC PANEL (04/29/2024 1:58 PM EST) Pathologist [facility] BUN 52(H) 6 - 20 mg/dL 04/29/2024 2:52 PM EST LABORATORY [facility] CREATININE 3.0(H) 0.6 - 1.2 mg/dL 04/29/2024 2:52 PM EST [facility] EGFR 21(L) >=60 mL/min 04/29/2024 2:52 PM EST [facility] Comment:eGFR is calculated b ased on the CKD-EPI 2020 equation. SODIUM 142 135 - 146 mmol/L 04/29/2024 2:52 PM EST [facility] POTASSIUM 4.0 3.5 - 5.1 mmol/L 04/29/2024 2:52 PM EST [facility] CHLORIDE 100 98 - 107 mmol/L 04/29/2024 2:52 PM EST [facility] CO2 31 22 - 32 mmol/L 04/29/2024 2:52 PM EST [facility] ANION GAP 11 7 - 15 mmol/L 04/29/2024 2:52 PM EST [facility] GLUCOSE 108 70 - 120 mg/dL 04/29/2024 2:52 PM EST [facility] CALCIUM 10.0 8.4 - 10.2 mg/dL 04/29/2024 2:52 PM EST [facility] Blood Venous blood specimen / Unknown Venipuncture / Unknown 04/29/2024 1:58 PM EST 04/29/2024 2:18 PM EST us Luba Balbuena MD LAB BLOOD ORDERABLES Final Resul t LABORATORY [facility] [address] [place] [address] * GLUCOSE METER, POINT OF CARE (04/29/2024 11:04 AM EST) [facility] Glucose - POCT 79 70 - 120 mg/dL 04/29/2024 11:28 AM EST [employer] Blood Whole blood specimen / Unknown 04/29/2024 11:04 AM EST 04/29/2024 11:28 AM EST us Sergio Becerra DO LAB POINT OF CARE TEST DOCKED DEVICE UNSOLICITED RESULTS Final Result [facility] [address] [place] [address] * (ABNORMAL) BASIC METABOLIC PANEL (04/29/2024 7:55 AM EST) BUN 52(H) 6 - 20 mg/dL 04/29/2024 8:38 AM EST [facility] CREATININE 3.0(H) 0.6 - 1.2 mg/dL 04/29/2024 8:38 AM EST [facility] EGFR 20(L) >=60 mL/min 04/29/2024 8:38 AM EST [facility] Comment:eGFR is calculated b ased on the CKD-EPI 2020 equation. SODIUM 139 135 - 146 mmol/L 04/29/2024 8:38 AM EST [facility] POTASSIUM 3.7 3.5 - 5.1 mmol/L 04/29/2024 8:38 AM EST [facility] CHLORIDE 100 98 - 107 mmol/L 04/29/2024 8:38 AM EST [facility] CO2 30 22 - 32 mmol/L 04/29/2024 8:38 AM EST [facility] ANION GAP 9 7 - 15 mmol/L 04/29/2024 8:38 AM EST [facility] GLUCOSE 92 70 - 120 mg/dL 04/29/2024 8:38 AM EST [facility] CALCIUM 10.0 8.4 - 10.2 mg/dL 04/29/2024 8:38 AM EST [facility] Blood Venous blood specimen / Unknown Venipuncture / Unknown 04/29/2024 7:55 AM EST 04/29/2024 8:10 AM EST Luba Balbuena MD LAB BLOOD ORDERABLES Final Resul t LABORATORY [facility] [address] [place] [address] * MAGNESIUM (04/29/2024 7:55 AM EST) Magnesium 2.2 1.5 - 2.6 mg/dL 04/29/2024 8:38 AM EST [facility] Blood Venous blood specimen / Unknown Venipuncture / Unknown 04/29/2024 7:55 AM EST 04/29/2024 8:10 AM EST us Luba Balbuena MD LAB BLOOD ORDERABLES Final Resul t [facility]AT[facility] [address] [place], [place] [id number] * GLUCOSE METER, POINT OF CARE (04/29/2024 7:27 AM EST) [facility] Glucose - POCT 90 70 - 120 mg/dL 04/29/2024 7:49 AM EST [facility] Blood Whole blood specimen / Unknown 04/29/2024 7:27 AM EST 04/29/2024 7:49 AM EST us Sergio Becerra DO LAB POINT OF CARE TEST DOCKED DEVICE UNSOLICITED RESULTS Final Result [facility] [address] [place] [address] * (ABNORMAL) CBC (04/29/2024 3:56 AM EST) [facility] WBC 9.03 4.00 - 10.80 K/uL 04/29/2024 4:20 AM EST [facility] RBC 3.92 4.50 - 5.25 M/uL 04/29/2024 4:20 AM EST [facility] HGB 9.7(L) 14.0 - 16.8 g/dL 04/29/2024 4:20 AM EST [facility] HCT 33.4(L) 40.0 - 48.4 % 04/29/2024 4:20 AM EST [facility] MCV 85.2 82.0 - 99.5 fL 04/29/2024 4:20 AM EST [facility] MCH 24.7 27.0 - 34.0 pg 04/29/2024 4:20 AM EST [facility] MCHC 29.0 32.0 - 36.0 g/dL 04/29/2024 4:20 AM EST [facility] RDW 16.1 11.5 - 15.5 % 04/29/2024 4:20 AM EST [facility] PLT 139(L) 140 - 400 K/uL 04/29/2024 4:20 AM EST [facility] MPV 9.7 6.6 - 11.1 fL 04/29/2024 4:20 AM EST [facility] nRBCs 0 <=0 /100 WBCs 04/29/2024 4:20 AM EST [facility] Blood Venous blood specimen / Unknown Venipuncture / Unknown 04/29/2024 3:56 AM EST 04/29/2024 4:03 AM EST Luba Balbuena MD LAB BLOOD ORDERABLES Final Resul t LABORATORY [facility] [address] [place] [address] * (ABNORMAL) BASIC METABOLIC PANEL (04/28/2024 11:01 PM EST) BUN 48(H) 6 - 20 mg/dL 04/28/2024 11:36 PM EST [facility] CREATININE 3.0(H) 0.6 - 1.2 mg/dL 04/28/2024 11:36 PM EST [facility] EGFR 20(L) >=60 mL/min 04/28/2024 11:36 PM EST [facility] Comment:eGFR is calculated b ased on the CKD-EPI 2020 equation. SODIUM 140 135 - 146 mmol/L 04/28/2024 11:36 PM EST [facility] POTASSIUM 3.9 3.5 - 5.1 mmol/L 04/28/2024 11:36 PM EST [facility] CHLORIDE 100 98 - 107 mmol/L 04/28/2024 11:36 PM EST [facility] CO2 30 22 - 32 mmol/L 04/28/2024 11:36 PM EST [facility] ANION GAP 10 7 - 15 mmol/L 04/28/2024 11:36 PM EST [facility] GLUCOSE 102 70 - 120 mg/dL 04/28/2024 11:36 PM EST [facility] CALCIUM 9.6 8.4 - 10.2 mg/dL 04/28/2024 11:36 PM EST [facility] Blood Venous blood specimen / Unknown Venipuncture / Unknown 04/28/2024 11:01 PM EST 04/28/2024 11:05 PM EST us Luba Balbuena MD LAB BLOOD ORDERABLES Final Resul t Performing Organization Address City/[facility]/ZIP Co de Phone Number LABORATORY [facility] [address] [place] [address] * MAGNESIUM (04/28/2024 11:01 PM EST) Magnesium 2.2 1.5 - 2.6 mg/dL 04/28/2024 11:36 PM EST LABORATORY [facility] Blood Venous blood specimen / Unknown Venipuncture / Unknown 04/28/2024 11:01 PM EST 04/28/2024 11:05 PM EST us Luba Balbuena MD LAB BLOOD ORDERABLES Final Resul t Performing Organization Address City/[facility] Co de Phone Number LABORATORY [facility] [address] [place] [address] * GLUCOSE METER, POINT OF CARE (04/28/2024 9:12 PM EST) Glucose - POCT 89 70 - 120 mg/dL 04/28/2024 9:20 PM EST [employer] Blood Whole blood specimen / Unknown 04/28/2024 9:12 PM EST 04/28/2024 9:20 PM EST us Sergio Becerra DO LAB POINT OF CARE TEST DOCKED DEVICE UNSOLICITED RESULTS Final Result Performing Organization Address City/[facility]/ZIP Co de Phone Number [facility] [address] [place] [address] * GLUCOSE METER, POINT OF CARE (04/28/2024 6:15 PM EST) Glucose - POCT 95 70 - 120 mg/dL 04/28/2024 6:29 PM EST [employer] Blood Whole blood specimen / Unknown 04/28/2024 6:15 PM EST 04/28/2024 6:29 PM EST us Zackery Jefferson MD LAB POINT OF C ARE TEST DOCKED DEVICE UNSOLICITED RESULTS Final Result Performing Organization Address [facility]/ZIP Co de Phone Number [facility] [address] [place] [address] * (ABNORMAL) GLUCOSE METER, POINT OF CARE (04/28/2024 11:34 AM EST) Glucose - POCT 153(H) 70 - 120 mg/dL 04/28/2024 1:03 PM EST [employer] Blood Whole blood specimen / Unknown 04/28/2024 11:34 AM EST 04/28/2024 1:03 PM EST Zackery Jefferson MD LAB POINT OF C ARE TEST DOCKED DEVICE UNSOLICITED RESULTS Final Result Performing Organization Address [facility] Co de Phone Number [facility] [address] [place] [address] * GLUCOSE METER, POINT OF CARE (04/28/2024 8:39 AM EST) Glucose - POCT 108 70 - 120 mg/dL 04/28/2024 8:53 AM EST [employer] Blood Whole blood specimen / Unknown 04/28/2024 8:39 AM EST 04/28/2024 8:53 AM EST us Zackery Jefferson MD LAB POINT OF C ARE TEST DOCKED DEVICE UNSOLICITED RESULTS Final Result Performing Organization Address [facility] Co de Phone Number [facility] [address] [place] [address] * (ABNORMAL) BASIC METABOLIC PANEL (04/28/2024 8:17 AM EST) BUN 44(H) 6 - 20 mg/dL 04/28/2024 8:56 AM EST [facility] CREATININE 2.9(H) 0.6 - 1.2 mg/dL 04/28/2024 8:56 AM EST [facility] EGFR 21(L) >=60 mL/min 04/28/2024 8:56 AM EST [facility] Comment:eGFR is calculated b ased on the CKD-EPI 2020 equation. SODIUM 141 135 - 146 mmol/L 04/28/2024 8:56 AM EST [facility] POTASSIUM 3.3(L) 3.5 - 5.1 mmol/L 04/28/2024 8:56 AM EST [facility] CHLORIDE 99 98 - 107 mmol/L 04/28/2024 8:56 AM EST [facility] CO2 33(H) 22 - 32 mmol/L 04/28/2024 8:56 AM EST [facility] ANION GAP 9 7 - 15 mmol/L 04/28/2024 8:56 AM EST [facility] GLUCOSE 137(H) 70 - 120 mg/dL 04/28/2024 8:56 AM EST [facility] CALCIUM 9.8 8.4 - 10.2 mg/dL 04/28/2024 8:56 AM EST [facility] Blood Venous blood specimen / Unknown Venipuncture / Unknown 04/28/2024 8:17 AM EST 04/28/2024 8:22 AM EST Luba Balbuena MD LAB BLOOD ORDERABLES Final Resul t Performing Organization Address City/[facility]/ZIP Co de Phone Number LABORATORY [facility] [address] [place] [address] * MAGNESIUM (04/28/2024 8:17 AM EST) Pathologist [facility] Magnesium 2.4 1.5 - 2.6 mg/dL 04/28/2024 8:56 AM EST LABORATORY [facility] Blood Venous blood specimen / Unknown Venipuncture / Unknown 04/28/2024 8:17 AM EST 04/28/2024 8:22 AM EST Luba Balbuena MD LAB BLOOD ORDERABLES Final Resul t LABORATORY [facility] [address] [place] [address] * ECHO, COMPLETE (2D), TRANS-THORACIC (04/28/2024 7:30 AM EST) LEFT VENTRICULAR EJECTION FRACTION 40 % [facility] CARDIOLOGY 04/28/2024 6:20 AM EST Luba Balbuena MD ECHOCARDIOLOGY Final Result [facility] * XR CHEST 1 VIEW (04/28/2024 5:49 AM EST) Anatomical Region Laterality Modality Chest Computed Radiogr aphy 04/28/2024 10:1 6 AM EST Impressions 04/28/2024 10:13 AM EST IMPRESSION 1. Stable moderately enlarged cardiac silhouette. 2. Stable small right pleural effusion. Right lung base ground-glass opacities are again noted which may represent atelectasis. Narrative 04/28/2024 10:13 AM EST EXAM XR CHEST 1 VIEW-04/28/2024 5:49 am HISTORY POD #1 S/P TAVR or Mitraclip COMPARISON Chest x-ray dated 04/27/2024 TECHNIQUE AP chest FINDINGS Median sternotomy wires and a prosthetic valve are again noted. The cardiac silhouette is moderately enlarged, stable. There are atherosclerotic calcifications of the thoracic aorta. There is no pneumothorax. There is a stable small right pleural effusion. Right lung base ground-glass opacities are noted which may represent atelectasis. Procedure Note Maddie Daly MD - 04/28/2024 EXAM XR CHEST 1 VIEW-04/28/2024 5:49 am HISTORY POD #1 S/P TAVR or Mitraclip COMPARISON Chest x-ray dated 04/27/2024 TECHNIQUE AP chest FINDINGS Median sternotomy wires and a prosthetic valve are again noted. Thecardiac silhouette is moderately enlarged, stable. There areatherosclerotic calcifications of the thoracic aorta. There is no pneumothorax. There is a stable small right pleural effusion.Right lung base ground-glass opacities are noted which may representatelectasis. IMPRESSION IMPRESSION 1. Stable moderately enlarged cardiac silhouette. 2. Stable small right pleural effusion. Right lung base ground-glassopacities are again noted which may represent atelectasis. Luba Balbuena MD RADIOLOGY (RAD GENERAL) Final Re sult * EKG (04/28/2024 4:47 AM EST) 04/28/2024 4:47 AM EST Narrative Procedure Note Tony Smith MD - 04/28/2024 4:47 AM EST REASON FOR STUDY: s/p petra day 1 CONCLUSIONS: Atrial fibrillation ST & T wave abnormality, consider anterior ischemia Prolonged QT interval or tu fusion, consider myocardial disease,electrolyte imbalance, or drug effects Abnormal ECG When compared with ECG of 27-Apr-2024 11:18, ST no longer depressed in Lateral leads Nonspecific T wave abnormality now evident in Inferior leads T wave inversion no longer evident in Lateral leads QT has lengthened Ventricular Rate: 83 QRS Duration: 100 QT/QTc: 432/507 ms P-R-T [place]: 0 : 74 : 16 degrees Luba Balbuena MD EKG Final Result [facility] * HEMOGLOBIN A1C (04/28/2024 4:01 AM EST) Hemoglobin A1C 5.5 4.0 - 5.6 % 04/28/2024 7:19 AM EST LABORATORY [facility] Comment:The use of HbA1c to monitor glycemic status is based on normal hemoglobin and HbA composition. This test should not be used in patients with abnormal hemoglobin that affects the half life of the red blood cell or the in vivo glycation rates. Estimated Average Glucose 111 <126 mg/dL 04/28/2024 7:19 AM EST LABORATORY [facility] Blood Venous blood specimen / Unknown Venipuncture / Unknown 04/28/2024 4:01 AM EST 04/28/2024 4:24 AM EST Luba Balbuena MD LAB BLOOD ORDERABLES Final Resul t LABORATORY [facility] [address] [place] [address] * (ABNORMAL) CBC (04/28/2024 4:01 AM EST) WBC 8.72 4.00 - 10.80 K/uL 04/28/2024 4:34 AM EST [facility] RBC 3.97 4.50 - 5.25 M/uL 04/28/2024 4:34 AM EST [facility] HGB 10.1(L) 14.0 - 16.8 g/dL 04/28/2024 4:34 AM EST [facility] HCT 34.2(L) 40.0 - 48.4 % 04/28/2024 4:34 AM EST [facility] MCV 86.1 82.0 - 99.5 fL 04/28/2024 4:34 AM EST [facility] MCH 25.4 27.0 - 34.0 pg 04/28/2024 4:34 AM EST [facility] MCHC 29.5 32.0 - 36.0 g/dL 04/28/2024 4:34 AM EST [facility] RDW 16.1 11.5 - 15.5 % 04/28/2024 4:34 AM EST [facility] PLT 147 140 - 400 K/uL 04/28/2024 4:34 AM EST [facility] MPV 9.9 6.6 - 11.1 fL 04/28/2024 4:34 AM EST [facility] nRBCs 0 <=0 /100 WBCs 04/28/2024 4:34 AM EST [facility] Blood Venous blood specimen / Unknown Venipuncture / Unknown 04/28/2024 4:01 AM EST 04/28/2024 4:24 AM EST us Luba Balbuena MD LAB BLOOD ORDERABLES Final Resul t Performing Organization Address City/State/[facility] Co de Phone Number LABORATORY [facility] [address] [place] [address] * (ABNORMAL) BASIC METABOLIC PANEL (04/27/2024 7:59 PM EST) BUN 43(H) 6 - 20 mg/dL 04/27/2024 8:31 PM EST [facility] CREATININE 2.8(H) 0.6 - 1.2 mg/dL 04/27/2024 8:31 PM EST [facility] EGFR 22(L) >=60 mL/min 04/27/2024 8:31 PM EST [facility] Comment:eGFR is calculated b ased on the CKD-EPI 2020 equation. SODIUM 140 135 - 146 mmol/L 04/27/2024 8:31 PM EST [facility] POTASSIUM 4.1 3.5 - 5.1 mmol/L 04/27/2024 8:31 PM EST [facility] CHLORIDE 99 98 - 107 mmol/L 04/27/2024 8:31 PM EST [facility] CO2 29 22 - 32 mmol/L 04/27/2024 8:31 PM EST [facility] ANION GAP 12 7 - 15 mmol/L 04/27/2024 8:31 PM EST [facility] GLUCOSE 280(H) 70 - 120 mg/dL 04/27/2024 8:31 PM EST [facility] CALCIUM 9.7 8.4 - 10.2 mg/dL 04/27/2024 8:31 PM EST [facility] Blood Venous blood specimen / Unknown Venipuncture / Unknown 04/27/2024 7:59 PM EST 04/27/2024 8:03 PM EST Luba Balbuena MD LAB BLOOD ORDERABLES Final Resul t Performing Organization Address City/[facility]/ZIP Co de Phone Number LABORATORY [facility] [address] [place] [address] * MAGNESIUM (04/27/2024 7:59 PM EST) Magnesium 2.3 1.5 - 2.6 mg/dL 04/27/2024 8:31 PM EST LABORATORY [facility] Blood Venous blood specimen / Unknown Venipuncture / Unknown 04/27/2024 7:59 PM EST 04/27/2024 8:03 PM EST Luba Balbuena MD LAB BLOOD ORDERABLES Final Resul t Performing Organization Address City/[facility]/ZIP Co de Phone Number LABORATORY [facility] [address] [place] [address] * XR CHEST 1 VIEW (04/27/2024 2:27 PM EST) Anatomical Region Laterality Modality Chest Computed Radiogr aphy 04/27/2024 2:38 PM EST Impressions 04/27/2024 2:36 PM EST IMPRESSION Lines/Tubes: None. Lungs/Pleura: Mild pulmonary edema with small right pleural effusion. Minimal bibasilar atelectasis. No pneumothorax. Heart/Mediastinum: Cardiomediastinal silhouette is enlarged. Status post aortic valve replacement and mitral clips. Narrative 04/27/2024 2:36 PM EST EXAM XR CHEST 1 VIEW-04/27/2024 2:27 pm HISTORY baseline initial xray after open heart surgery COMPARISON None TECHNIQUE Single frontal view of the chest. FINDINGS See impression below. Procedure Note Gilmer Ogden MD - 04/27/2024 EXAM XR CHEST 1 VIEW-04/27/2024 2:27 pm HISTORY baseline initial xray after open heart surgery COMPARISON None TECHNIQUE Single frontal view of the chest. FINDINGS See impression below. IMPRESSION IMPRESSION Lines/Tubes: None. Lungs/Pleura: Mild pulmonary edema with small right pleural effusion.Minimal bibasilar atelectasis. No pneumothorax. Heart/Mediastinum: Cardiomediastinal silhouette is enlarged. Status postaortic valve replacement and mitral clips. us Luba Balbuena MD RADIOLOGY ([facility]) Final Re sult * MAGNESIUM (04/27/2024 2:00 PM EST) Pathologist [facility] Magnesium 2.4 1.5 - 2.6 mg/dL 04/27/2024 2:40 PM EST LABORATORY [facility] Blood Venous blood specimen / Unknown Venipuncture / Unknown 04/27/2024 2:00 PM EST 04/27/2024 2:11 PM EST us Luba Balbuena MD LAB BLOOD ORDERABLES Final Resul t LABORATORY [facility] [address] [place] [address] * (ABNORMAL) CBC (04/27/2024 2:00 PM EST) WBC 8.71 4.00 - 10.80 K/uL 04/27/2024 2:18 PM EST LABORATORY [facility] RBC 4.29 4.50 - 5.25 M/uL 04/27/2024 2:18 PM EST [facility] HGB 10.8(L) 14.0 - 16.8 g/dL 04/27/2024 2:18 PM EST [facility] HCT 36.6(L) 40.0 - 48.4 % 04/27/2024 2:18 PM EST [facility] MCV 85.3 82.0 - 99.5 fL 04/27/2024 2:18 PM EST [facility] MCH 25.2 27.0 - 34.0 pg 04/27/2024 2:18 PM EST [facility] MCHC 29.5 32.0 - 36.0 g/dL 04/27/2024 2:18 PM EST [facility] RDW 16.2 11.5 - 15.5 % 04/27/2024 2:18 PM EST [facility] PLT 153 140 - 400 K/uL 04/27/2024 2:18 PM EST [facility] MPV 9.9 6.6 - 11.1 fL 04/27/2024 2:18 PM EST [facility] nRBCs 0 <=0 /100 WBCs 04/27/2024 2:18 PM EST [facility] Blood Venous blood specimen / Unknown Venipuncture / Unknown 04/27/2024 2:00 PM EST 04/27/2024 2:11 PM EST us Luba Balbuena MD LAB BLOOD ORDERABLES Final Resul t LABORATORY [facility] [address] [place] [address] * (ABNORMAL) BASIC METABOLIC PANEL (04/27/2024 2:00 PM EST) Pathologist [facility] BUN 41(H) 6 - 20 mg/dL 04/27/2024 2:40 PM EST [facility] CREATININE 2.7(H) 0.6 - 1.2 mg/dL 04/27/2024 2:40 PM EST [facility] EGFR 23(L) >=60 mL/min 04/27/2024 2:40 PM EST [facility] Comment:eGFR is calculated b ased on the CKD-EPI 2020 equation. SODIUM 140 135 - 146 mmol/L 04/27/2024 2:40 PM EST [facility] POTASSIUM 3.1(L) 3.5 - 5.1 mmol/L 04/27/2024 2:40 PM EST LABORATORY C CHLORIDE 100 98 - 107 mmol/L 04/27/2024 2:40 PM EST [facility] CO2 27 22 - 32 mmol/L 04/27/2024 2:40 PM EST [facility] ANION GAP 13 7 - 15 mmol/L 04/27/2024 2:40 PM EST LABORATORY [facility] GLUCOSE 132(H) 70 - 120 mg/dL 04/27/2024 2:40 PM EST LABORATORY [facility] CALCIUM 9.5 8.4 - 10.2 mg/dL 04/27/2024 2:40 PM EST LABORATORY [facility] Blood Venous blood specimen / Unknown Venipuncture / Unknown 04/27/2024 2:00 PM EST 04/27/2024 2:11 PM EST Luba Balbuena MD LAB BLOOD ORDERABLES Final Resul t LABORATORY [facility] [address] [place] [address] * EKG (04/27/2024 11:18 AM EST) 04/27/2024 11:1 8 AM EST Narrative Procedure Note Tony Smith MD - 04/27/2024 11:18 AM EST REASON FOR STUDY: post clip CONCLUSIONS: Atrial fibrillation with a competing junctional pacemaker with prematureventricular or aberrantly conducted complexes ST & T wave abnormality, consider anterolateral ischemia Abnormal ECG When compared with ECG of 27-Apr-2024 07:07, T wave inversion no longer evident in Inferior leads T wave inversion more evident in Lateral leads Ventricular Rate: 80 QRS Duration: 98 QT/QTc: 360/415 ms P-R-T [place]: 0 : 77 : 103 degrees us Luba Balbuena MD EKG Final Result [facility] * ACT, POINT OF CARE (04/27/2024 10:48 AM EST) ACT 308 50 - 1,000 secs 04/27/2024 4:55 PM EST [employer] Blood 04/27/2024 10:4 8 AM EST 04/27/2024 4:55 PM EST Narrative [employer] - 04/27/2024 4:55 PM EST NORMAL (NON-HEPARINIZED) 74-137 SECONDS HEPARINIZED 200+ SECONDS CRITICAL GREATER THAN 1000 SECONDS Zackery Jefferson MD LAB POINT OF ARE TEST DOCKED DEVICE UNSOLICITED RESULTS Final Result Performing Organization Address City/[facility]/ZIP Co de Phone Number [address] [address] * ACT, POINT OF CARE (04/27/2024 10:11 AM EST) Pathologist [facility] ACT 285 50 - 1,000 secs 04/27/2024 4:55 PM EST [employer] Blood 04/27/2024 10:1 1 AM EST 04/27/2024 4:55 PM EST [employer] - 04/27/2024 4:55 PM EST NORMAL (NON-HEPARINIZED) 74-137 SECONDS HEPARINIZED 200+ SECONDS CRITICAL GREATER THAN 1000 SECONDS Zackery Jefferson MD LAB POINT OF C ARE TEST DOCKED DEVICE UNSOLICITED RESULTS Final Result Performing Organization Address City/[facility]/ZIP Co de Phone Number [facility] [employer] [facility] [address] [place] [address] * ACT, POINT OF CARE (04/27/2024 9:54 AM EST) Pathologist [facility] ACT 285 50 - 1,000 secs 04/27/2024 4:55 PM EST [employer] Blood 04/27/2024 9:54 AM EST 04/27/2024 4:55 PM EST [employer] - 04/27/2024 4:55 PM EST NORMAL (NON-HEPARINIZED) 74-137 SECONDS HEPARINIZED 200+ SECONDS CRITICAL GREATER THAN 1000 SECONDS us Zackery Jefferson MD LAB POINT OF C ARE TEST DOCKED DEVICE UNSOLICITED RESULTS Final Result Performing Organization Address [facility] de Phone Number [facility] [address] [place] [address] * ACT, POINT OF CARE (04/27/2024 9:42 AM EST) ACT 216 50 - 1,000 secs 04/27/2024 4:55 PM EST [facility] Blood 04/27/2024 9:42 AM EST 04/27/2024 4:55 PM EST Narrative [facility] [employer] - 04/27/2024 4:55 PM EST NORMAL (NON-HEPARINIZED) 74-137 SECONDS HEPARINIZED 200+ SECONDS CRITICAL GREATER THAN 1000 SECONDS us Zackery Jefferson MD LAB POINT OF C ARE TEST DOCKED DEVICE UNSOLICITED RESULTS Final Result Performing Organization Address [facility] de Phone Number [facility] [address] [place] [address] * EKG (04/27/2024 7:07 AM EST) 04/27/2024 7:07 AM EST Narrative Procedure Note David Lai MD - 04/27/2024 7:07 AM EST REASON FOR STUDY: pre petra clip CONCLUSIONS: Atrial fibrillation with rapid ventricular response with prematureventricular or aberrantly conducted complexes Marked ST abnormality, possible inferior subendocardial injury Abnormal ECG When compared with ECG of 05-Oct-2008 13:16, Atrial fibrillation has replaced Sinus rhythm Vent. rate has increased by [address] now depressed in Inferior leads ST now depressed in Anterior-lateral leads T wave inversion now evident in Inferior leads T wave inversion now evident in Anterior-lateral leads Ventricular Rate: 110 QRS Duration: 92 QT/QTc: 326/441 ms P-R-T [place]: 0 : 58 : -62 degrees us Guicho ELENA EKG Final Resul t Performing Organization Address [facility] Co de Phone Number [facility] * ABO/RH (04/27/2024 7:01 AM EST) ABO O 04/27/2024 8:19 AM EST [facility] BLOOD BANK Rh Positive 04/27/2024 8:19 AM EST [facility] BLOOD B[facility] Blood Venous blood specimen / Unknown Venipuncture / Unknown 04/27/2024 7:01 AM EST 04/27/2024 7:07 AM EST Hamida Patel MD LAB BLOOD BANK TEST ORDERABLE S Final Result Performing Organization Address [facility] de Phone Number LABORATORY [facility] BLOOD BANK [address] [place] [address] * (ABNORMAL) HEPATIC FUNCTION PANEL (04/27/2024 7:01 AM EST) Albumin 3.4(L) 3.8 - 5.0 g/dL 04/27/2024 7:42 AM EST [facility] AST 25 10 - 50 U/L 04/27/2024 7:42 AM EST [facility] Alkaline Phosphatase 79 35 - 130 U/L 04/27/2024 7:42 AM EST [facility] ALT 12 10 - 50 U/L 04/27/2024 7:42 AM EST [facility] Bilirubin, Total 1.3(H) <=1.2 mg/dL 04/27/2024 7:42 AM EST [facility] Bilirubin, Direct 0.6(H) 0.0 - 0.3 mg/dL 04/27/2024 7:42 AM EST [facility] Protein 6.5 6.0 - 8.3 g/dL 04/27/2024 7:42 AM EST [facility] Blood Venous blood specimen / Unknown Venipuncture / Unknown 04/27/2024 7:01 AM EST 04/27/2024 7:07 AM EST Hamida Patel MD LAB BLOOD ORDERABLES Final Re sult Performing Organization Address City/[facility]/ZIP Co de Phone Number LAB[facility]ATORY [facility] [address] [place] [address] * (ABNORMAL) PT INR (04/27/2024 7:01 AM EST) Prothrombin Time 15.6(H) 11.6 - 15.2 seconds 04/27/2024 7:33 AM EST LABORATORY [facility] INR 1.2 0.8 - 1.2 04/27/2024 7:33 AM EST LABORATORY [facility] Blood Venous blood specimen / Unknown Venipuncture / Unknown 04/27/2024 7:01 AM EST 04/27/2024 7:07 AM EST Narrative [facility] - 04/27/2024 7:33 AM EST Warfarin Therapy INR: 2.0-3.0 conventional anticoagulation INR: 2.5-3.5 high intensity anticoagulation Hamida Patel MD LAB BLOOD ORDERABLES Final Re sult Performing Organization Address [facility] de Phone Number LABORATORY [facility] [address] [place] [address] * TYPE AND SCREEN (04/27/2024 7:01 AM EST) ABO O 04/27/2024 8:00 AM EST LABORATORY [facility] BLOOD BANK Rh Positive 04/27/2024 8:00 AM EST LABORATORY [facility] BLOOD BANK Red Blood Cell Antibody Screen Negative 04/27/2024 8:00 AM EST LABORATORY [facility] BLOOD BANK Specimen Expiration Date 04/30/2024 23:59 04/27/2024 8:00 AM EST LABORATORY [facility] BLOOD BANK Blood Venous blood specimen / Unknown Venipuncture / Unknown 04/27/2024 7:01 AM EST 04/27/2024 7:07 AM EST Hamida Patel MD LAB BLOOD BANK TEST ORDERABLE S Final Result Performing Organization Address City/[facility] Co de Phone Number LABORATORY [facility] BLOOD BANK [address] [place] [address] * (ABNORMAL) CBC (04/27/2024 7:01 AM EST) WBC 8.59 4.00 - 10.80 K/uL 04/27/2024 7:22 AM EST [facility] RBC 4.54 4.50 - 5.25 M/uL 04/27/2024 7:22 AM EST [facility] HGB 11.5(L) 14.0 - 16.8 g/dL 04/27/2024 7:22 AM EST [facility] HCT 38.9(L) 40.0 - 48.4 % 04/27/2024 7:22 AM EST [facility] MCV 85.7 82.0 - 99.5 fL 04/27/2024 7:22 AM EST [facility] MCH 25.3 27.0 - 34.0 pg 04/27/2024 7:22 AM EST [facility] MCHC 29.6 32.0 - 36.0 g/dL 04/27/2024 7:22 AM EST [facility] RDW 16.2 11.5 - 15.5 % 04/27/2024 7:22 AM EST [facility] PLT 180 140 - 400 K/uL 04/27/2024 7:22 AM EST [facility] MPV 10.0 6.6 - 11.1 fL 04/27/2024 7:22 AM EST LAB[facility] nRBCs 0 <=0 /100 WBCs 04/27/2024 7:22 AM EST [facility] Blood Venous blood specimen / Unknown Venipuncture / Unknown 04/27/2024 7:01 AM EST 04/27/2024 7:07 AM EST Hamida Patel MD LAB BLOOD ORDERABLES Final Re sult Performing Organization Address City/State/[facility] Co de Phone Number LABORATORY [facility] [address] [place] [address] * (ABNORMAL) BNP, NT-PRO (04/27/2024 7:01 AM EST) BNP, NT-Pro 9,230(H) <300 pg/mL 04/27/2024 7:42 AM EST [facility] Blood Venous blood specimen / Unknown Venipuncture / Unknown 04/27/2024 7:01 AM EST 04/27/2024 7:07 AM EST Narrative LABORATORY [facility] - 04/27/2024 7:42 AM EST Exclude Heart Failure: <300 pg/mL Diagnose Heart Failure: Age <50 yr: >450 pg/mL 50-75 yr: >900 pg/mL >75 yr: >1800 pg/mL GFR is 30-59 mL/min: >1200 pg/mL or Age-adjusted values GFR <30 mL/min: do not use, not reliable Prognostic threshold: 1000 pg/mL us Hamida Patel MD LAB BLOOD ORDERABLES Final Re sult LABORATORY [facility] [address] [place] [address] * (ABNORMAL) BASIC METABOLIC PANEL (04/27/2024 7:01 AM EST) BUN 42(H) 6 - 20 mg/dL 04/27/2024 7:42 AM EST LABORATORY [facility] CREATININE 2.8(H) 0.6 - 1.2 mg/dL 04/27/2024 7:42 AM EST LABORATORY [facility] EGFR 22(L) >=60 mL/min 04/27/2024 7:42 AM EST LABORATORY [facility] Comment:eGFR is calculated b ased on the CKD-EPI 2020 equation. SODIUM 141 135 - 146 mmol/L 04/27/2024 7:42 AM EST LABORATORY [facility] POTASSIUM 3.2(L) 3.5 - 5.1 mmol/L 04/27/2024 7:42 AM EST LABORATORY [facility] CHLORIDE 98 98 - 107 mmol/L 04/27/2024 7:42 AM EST LABORATORY C CO2 31 22 - 32 mmol/L 04/27/2024 7:42 AM EST LABORATORY [facility] ANION GAP 12 7 - 15 mmol/L 04/27/2024 7:42 AM EST LABORATORY [facility] GLUCOSE 102 70 - 120 mg/dL 04/27/2024 7:42 AM EST LABORATORY [facility] CALCIUM 10.1 8.4 - 10.2 mg/dL 04/27/2024 7:42 AM EST [facility]ATORY [facility] Blood Venous blood specimen / Unknown Venipuncture / Unknown 04/27/2024 7:01 AM EST 04/27/2024 7:07 AM EST us Hamida Patel MD LAB BLOOD ORDERABLES Final Re sult LABORATORY [facility] [address] [place] [address] * PREPARE PACKED RED BLOOD CELLS (04/27/2024 5:55 AM EST) Unit Product Code [id number] 04/28/2024 10:27 AM EST [facility] Unit Number [id number] 04/28/2024 10:27 AM EST [facility] Unit ABO O 04/28/2024 10:27 AM EST [facility] Unit Rh POS 04/28/2024 10:27 AM EST [facility] Unit Crossmatch Compatible 04/27/2024 8:25 AM EST [facility] Unit Status RE 04/28/2024 10:27 AM EST [facility] Unit Blood Type OPOS 04/28/2024 10:27 AM EST [facility] Unit Expiration [id number] 04/28/2024 10:27 AM EST [facility] Unit Barcode 5100 04/28/2024 10:27 AM EST [facility] Unit Product Code [id number] 04/28/2024 10:27 AM EST [facility] Unit Number [id number] 04/28/2024 10:27 AM EST [facility] Unit ABO O 04/28/2024 10:27 AM EST [facility] Rh POS 04/28/2024 10:27 AM EST [facility] Crossmatch Compatible 04/27/2024 8:25 AM EST [facility] Status RE 04/28/2024 10:27 AM EST [facility] Blood Type OPOS 04/28/2024 10:27 AM EST [facility] Expiration [id number] 04/28/2024 10:27 AM EST [facility] Barcode [id number] 04/28/2024 10:27 AM EST [facility] 04/27/2024 5:55 AM EST Hamida Patel MD BLD BANK PRODUCT ORDERABLES E dited Result - Final [facility]ATORY [facility] [address] [place] [address] * CARDIAC CATHETERIZATION REPORT (04/27/2024) DATE OF PROCEDURE 04/27/2024 [facility] Hamida Mclaughlin MD [facility] PROCEDURES TMVR - Repair perq, with transseptal puncture, initial prosthesis [facility] TOTAL CONTRAST VOLUME 0 ml [facility] TOTAL RADIATION 0.19 Gy [facility] COMPLICATIONS No complication None [facility] 04/27/2024 04/27/2024 5:1 5 PM EST Hamida Patel MD CARD CATH Final Result [facility] documented in this encounter Visit Diagnoses Diagnosis S/P mitral valve clip implantation- Primary S/P mitral valve clip implantation S/P TAVR (transcatheter aortic valve replacement) Heart valve replaced by other means Valvular heart disease Endocarditis, valve unspecified, unspecified cause Post-operative state Other postprocedural status Nonrheumatic mitral (valve) insufficiency [I34.0] Encounter for examination for normal comparison and control in clinical research program [Z00.6] Nonrheumatic mitral (valve) prolapse [I34.1] Encounter for surgical aftercare following surgery on the circulatory system Pleural effusion, not elsewhere classified Chronic pulmonary edema Pulmonary congestion and hypostasis Atelectasis Pulmonary collapse Cardiomegaly Other nonspecific abnormal finding of lung field S/P aortic valve replacement Heart valve replaced by other means Sleep apnea Unspecified sleep apnea HTN, goal below 140/90 Unspecified essential hypertension Dyslipidemia, goal LDL below 100 Other and unspecified hyperlipidemia CKD (chronic kidney disease) stage 4, GFR 15-29 ml/min (HCC) Chronic kidney disease, Stage IV (severe) documented in this encounter Administered Medications Inactive Administered Medications - up to 3 most recent administrations Medication Order MAR Action Action Date Dose Rate Site Acetaminophen (Tylenol) tab 975 mg 975 mg, Oral, Q6H, First dose on Thu04/27/24 at 1315, Last dose on Thu05/02/24 at 0600, For 5 days, Maximum 4 g acetaminophen/day. Avoid in patients with severe hepatic impairment or severe active liver disease. Use for 5 days., Post-op Given 05/02/2024 6:26 AM EST 975 mg Given 05/01/2024 10:51 PM EST 975 mg Given 05/01/2024 5:48 PM EST 975 mg Allopurinol (Zyloprim) tab 50 mg 50 mg, Oral, Daily(AM), First dose on Thu04/28/24 at 0900, Until Discontinued Given 05/02/2024 9:10 AM EST 50 mg Given 05/01/2024 8:21 AM EST 50 mg Given 04/30/2024 8:52 AM EST 50 mg aspirin chew tab 81 mg 81 mg, Oral, Daily(AM), First dose on Thu04/28/24 at 1100, Until Discontinued Given 05/02/2024 9:10 AM EST 81 mg Given 05/01/2024 8:21 AM EST 81 mg Given 04/30/2024 11:13 AM EST 81 mg Chlorothiazide Sodium (Diuril) inj 500 mg 500 mg, IV Push, ONCE, On Thu04/29/24 at 1600, For 1 dose, May administer as dispensed over 3 to 5 minutes Given 04/29/2024 5:51 PM EST 500 mg Chlorothiazide Sodium (Diuril) inj 500 mg 500 mg, IV Push, ONCE, On 04/30/24 at 1400, For 1 dose, May administer as dispensed over 3 to 5 minutes Given 04/30/2024 2:57 PM EST 500 mg Chlorothiazide Sodium (Diuril) inj 500 mg 500 mg, IV Push, ONCE, On 05/01/24 at 1100, For 1 dose, May administer as dispensed over 3 to 5 minutes Given 05/01/2024 1:15 PM EST 500 mg Furosemide (Lasix) inj 160 mg 160 mg, IV Push, ONCE, On Thu04/29/24 at 0930, For 1 dose Given 04/29/2024 9:29 AM EST 160 mg Furosemide (Lasix) inj 160 mg 160 mg, IV Push, ONCE, On Thu04/29/24 at 1700, For 1 dose Given 04/29/2024 4:23 PM EST 160 mg Furosemide (Lasix) inj 160 mg 160 mg, IV Push, BID (0900, 1600), First dose on 04/30/24 at 0900, Until Discontinued Given 04/30/2024 8:49 AM EST 160 mg Furosemide (Lasix) inj 160 mg 160 mg, IV Push, ONCE, On 04/30/24 at 1400, For 1 dose Given 04/30/2024 2:56 PM EST 160 mg Furosemide (Lasix) inj 160 mg 160 mg, IV Push, ONCE, On 05/01/24 at 1100, For 1 dose Given 05/01/2024 1:14 PM EST 160 mg Furosemide (Lasix) inj 160 mg 160 mg, IV Push, ONCE, On 05/01/24 at 1830, For 1 dose Given 05/01/2024 6:28 PM EST 160 mg Furosemide (Lasix) inj 80 mg 80 mg, IV Push, ONCE, On Megan 04/28/24 at 1100, For 1 dose Given 04/28/2024 12:32 PM EST 80 mg hEParin inj 5,000 Units 5,000 Units, Subcutaneous, Q8H, First dose (after last modification) on Megan 04/28/24 at 0600, Last dose on Megan 04/28/24 at 1400, For 2 doses, Post-op Given 04/28/2024 2:53 PM EST 5,000 Units Abdomen Right Upper Given 04/28/2024 4:58 AM EST 5,000 Units A bdomen Right Lower insulin aspart (NovoLOG) inj Subcutaneous, Q6H, First dose on Megan 04/28/24 at 0715, Until Discontinued, MEDIUM DOSE (Usual starting dose): Sliding Scale Correctional insulin may be given if the patient is NPO. Dose based on standard build from Insulin Calculator. Do not modify insulin doses in administration instructions!, Glucose less than 70 instructions: Obtain STAT lab blood glucose and call covering provider., Glucose 80-150 (units): 0, Glucose 151-200 (units): 2, Glucose 201-250 (units): 4, Glucose 251-300 (units): 6, Glucose greater than 300 (units): 8, Glucose greater than 300 instructions: Give suggested insulin dose and call covering provider. Given 04/28/2024 12:32 PM EST 3 Units Arm Right Upper metoprolol succinate XL (toPROL XL) tab 75 mg 75 mg, Oral, HS, First dose (after last modification) on Thu04/27/24 at 1600, Until Discontinued, Hold for HR less than 60 or SBP below 100 and notify service if dose is held This med should NOT be Crushed or Chewed. Given 05/01/2024 10:51 PM EST 75 mg Given 04/30/2024 8:43 PM EST 75 mg Given 04/29/2024 9:53 PM EST 75 mg midodrine HCl (Proamatine) tab 10 mg 10 mg, Oral, TID(AM/NOON/HS), First dose on Thu04/27/24 at 1345, Until Discontinued Given 04/30/2024 8:43 PM EST 10 m g Given 04/30/2024 11:49 AM EST 10 mg Given 04/30/2024 8:51 AM EST 10 mg potassium chloride ER tab 10 mEq 10 mEq, Oral, ONCE, On Thu04/29/24 at 0700, For 1 dose, This med should NOT be Crushed or Chewed Given 04/29/2024 6:43 AM EST 10 mEq potassium chloride ER tab 20 mEq 20 mEq, Oral, ONCE, On Thu05/02/24 at 0830, For 1 dose, This med should NOT be Crushed or Chewed Given 05/02/2024 9:10 AM EST 20 mEq potassium chloride ER tab 30 mEq 30 mEq, Oral, Q2H, First dose on Thu04/30/24 at 1200, Last dose on Thu04/30/24 at 1400, For 2 doses, This med should NOT be Crushed or Chewed Given 04/30/2024 11:49 AM EST 30 mEq Given 04/30/2024 11:13 AM EST 30 mEq potassium chloride ER tab 30 mEq 30 mEq, Oral, Q1H, First dose on 04/30/24 at 2045, Last dose on 04/30/24 at 2300, For 3 doses, This med should NOT be Crushed or Chewed Given 04/30/2024 10:27 PM EST 30 mEq Given 04/30/2024 9:25 PM EST 30 mEq Given 04/30/2024 8:43 PM EST 30 mEq potassium chloride ER tab 30 mEq 30 mEq, Oral, ONCE, On Thu05/01/24 at 1100, For 1 dose, This med should NOT be Crushed or Chewed Given 05/01/2024 11:46 AM EST 30 mEq potassium chloride ER tab 40 mEq 40 mEq, Oral, Q2H, First dose on Thu04/28/24 at 1200, Last dose on Thu04/28/24 at 1400, For 2 doses, This med should NOT be Crushed or Chewed Given 04/28/2024 1:49 PM EST 40 mEq Given 04/28/2024 12:30 PM EST 40 mEq potassium chloride ER tab 40 mEq 40 mEq, Oral, ONCE, On Thu04/29/24 at 0930, For 1 dose, This med should NOT be Crushed or Chewed Given 04/29/2024 9:29 AM EST 40 mEq potassium chloride ER tab 40 mEq 40 mEq, Oral, ONCE, On Thu05/02/24 at 1115, For 1 dose, This med should NOT be Crushed or Chewed Given 05/02/2024 11:15 AM EST 40 mEq potassium CHLORide liquid 40 mEq 40 mEq, Oral, Q1H, First dose on Thu04/27/24 at 1600, Last dose on Thu04/27/24 at 1700, For 2 doses, To avoid GI irritation, must further diilute 15 ml in 3 ounces H2O or other fluid Given 04/27/2024 5:11 PM EST 40 mEq Given 04/27/2024 4:27 PM EST 40 mEq Rivaroxaban (Xarelto) tab 15 mg 15 mg, Oral, [id number], First dose on Thu04/28/24 at 1700, Until Discontinued, TAKE WITH FOOD Given 05/01/2024 5:49 PM EST 15 mg Given 04/30/2024 5:16 PM EST 15 mg Given 04/29/2024 5:56 PM EST 15 mg sodium chloride 0.9 % flush peripheral shahab 3 mL 3 mL, IV Push, Q8H, First dose on Thu04/27/24 at 1400, Until Discontinued, Do not flush if lock, PICC, or central line not in place; IV infusing or unable to flush., Post-op Given 05/02/2024 6:24 AM EST 3 mL Given 05/01/2024 10:51 PM EST 3 mL Given 05/01/2024 1:15 PM EST 3 mL Tamoxifen Citrate (Nolvadex) tab 20 mg 20 mg, Oral, Daily(AM), First dose on Thu04/28/24 at 0900, Until Discontinued Given 05/02/2024 9:11 AM EST 20 mg Given 05/01/2024 8:21 AM EST 20 mg Given 04/30/2024 8:53 AM EST 20 mg traMADol (Ultram) tab 50 mg 50 mg, Oral, Q12H PRN Pain, Severe, Starting on Thu04/27/24 at 1231, Until Thu05/02/24 at 1745, Post-op documented in this encounter Active and Recently Administered Medications Times are shown in EST. Scheduled Medication Order 04/30/2024 05/01/2024 05/02/2024 Acetaminophen (Tylenol) tab 975 mg 975 mg, Oral, Q6H, First dose on Thu04/27/24 at 1315, Last dose on Thu05/02/24 at 0600, For 5 days, Maximum 4 g acetaminophen/day. Avoid in patients with severe hepatic impairment or severe active liver disease. Use for 5 days., Post-op 0000 (Not Given - Provider: Katy Rene RN - Reason: Parameter(s) Not Met - Comment: no pain- pt doesn't want to be awakened)0600 (Not Given - Provider: Senia Coyle RN - Reason: Other- Please add reason in Comments - Comment: sleeping)1200 (Not Given - Provider: Liya Renteria RN - Reason: Parameter(s) Not Met)1800 (Not Given - Provider: Liya Renteria RN - Reason: Parameter(s) Not Met) 0000 (Not Given - Provider: Melly Lazcano RN - Reason: Refused-Notify Provider)0649 (Given - Provider: Melly Lazcano RN)1148 (Given - Provider: Sumeet Braxton RN)1748 (Given - Provider: Sumeet Braxton RN)2251 (Given - Provider: Melly Lazcano RN) 0626 (Given - Provider: Melly Lazcano RN) Allopurinol (Zyloprim) tab 50 mg 50 mg, Oral, Daily(AM), First dose on Thu04/28/24 at 0900, Until Discontinued 0852 (Given - Provider: Senia Coyle RN) 0821 (Given - Provider: Liya Renteria RN) 0910 (Given - Provider: Louise Crawford, RN) aspirin chew tab 81 mg 81 mg, Oral, Daily(AM), First dose on Megan 04/28/24 at 1100, Until Discontinued 1113 (Given - Provider: Senia Coyle RN) 0821 (Given - Provider: Liya Renteria RN) 0910 (Given - Provider: Louise Crawford RN) Chlorothiazide Sodium (Diuril) inj 500 mg (COMPLETED) 500 mg, IV Push, ONCE, On 04/30/24 at 1400, For 1 dose, May administer as dispensed over 3 to 5 minutes 1457 (Given - Provider: Liya Renteria RN) Chlorothiazide Sodium (Diuril) inj 500 mg (COMPLETED) 500 mg, IV Push, ONCE, On 05/01/24 at 1100, For 1 dose, May administer as dispensed over 3 to 5 minutes 1315 (Given - Provider: Sumeet Braxton RN) Furosemide (Lasix) inj 160 mg (CANCELED) 160 mg, IV Push, BID (0900, 1600), First dose on 04/30/24 at 0900, Until Discontinued 0849 (Given - Provider: Senia Coyle RN) Furosemide (Lasix) inj 160 mg (COMPLETED) 160 mg, IV Push, ONCE, On 04/30/24 at 1400, For 1 dose 1456 (Given - Provider: Liya Renteria RN) Furosemide (Lasix) inj 160 mg (COMPLETED) 160 mg, IV Push, ONCE, On 05/01/24 at 1100, For 1 dose 1314 (Given - Provider: Sumeet Braxton RN) Furosemide (Lasix) inj 160 mg (COMPLETED) 160 mg, IV Push, ONCE, On 05/01/24 at 1830, For 1 dose 1828 (Given - Provider: Sumeet Braxton RN) metoprolol succinate XL (toPROL XL) tab 75 mg 75 mg, Oral, HS, First dose (after last modification) on Thu04/27/24 at 1600, Until Discontinued, Hold for HR less than 60 or SBP below 100 and notify service if dose is held This med should NOT be Crushed or Chewed. 2042 (Given - Provider: Melly Lazcano, JAIMIE) 2250 (Given - Provider: Melly Lazcano RN - Comment: BP 92/66. MD Bryant made aware, Ok to give meds) midodrine HCl (Proamatine) tab 10 mg (CANCELED) 10 mg, Oral, TID(AM/NOON/HS), First dose on Thu04/27/24 at 1345, Until Discontinued 0851 (Given - Provider: Senia Coyle, JAIMIE)1149 (Given - Provider: Liya Renteria, JAIMIE)2042 (Given - Provider: Melly Lazcano RN) 0640 (Not Given - Provider: Melly Lazcano RN - Reason: Parameter(s) Not Met - Comment: BP 143/64, MD Balbuena made aware) potassium chloride ER tab 20 mEq (COMPLETED) 20 mEq, Oral, ONCE, On Thu05/02/24 at 0830, For 1 dose, This med should NOT be Crushed or Chewed 0910 (Given - Provider: Louise Crawford RN) potassium chloride ER tab 30 mEq (COMPLETED) 30 mEq, Oral, Q2H, First dose on 04/30/24 at 1200, Last dose on 04/30/24 at 1400, For 2 doses, This med should NOT be Crushed or Chewed 111 (Given - Provider: Senia Coyle RN)114 (Given - Provider: Liya Renteria RN) potassium chloride ER tab 30 mEq (COMPLETED) 30 mEq, Oral, Q1H, First dose on 04/30/24 at 204, Last dose on 04/30/24 at 2300, For 3 doses, This med should NOT be Crushed or Chewed 2042 (Given - Provider: Melly Lazcano RN)2124 (Given - Provider: Melly Lazcano RN)2226 (Given - Provider: Melly Lazcano RN) potassium chloride ER tab 30 mEq (COMPLETED) 30 mEq, Oral, ONCE, On Thu05/01/24 at 1100, For 1 dose, This med should NOT be Crushed or Chewed 1146 (Given - Provider: Sumeet Braxton RN) potassium chloride ER tab 40 mEq (COMPLETED) 40 mEq, Oral, ONCE, On Thu05/02/24 at 1115, For 1 dose, This med should NOT be Crushed or Chewed 1115 (Given - Provider: Louise Crawford RN) Rivaroxaban (Xarelto) tab 15 mg 15 mg, Oral, [id number], First dose on Thu04/28/24 at 1700, Until Discontinued, TAKE WITH FOOD 1716 (Given - Provider: Liya Renteria RN) 1749 (Given - Provider: Sumeet Braxton RN) sodium chloride 0.9 % flush peripheral shahab 3 mL 3 mL, IV Push, Q8H, First dose on Thu04/27/24 at 1400, Until Discontinued, Do not flush if lock, PICC, or central line not in place; IV infusing or unable to flush., Post-op 0800 (Given - Provider: Senia Coyle RN)1717 (Given - Provider: Liya Renteria RN)2044 (Given - Provider: Melly Lazcano RN) 0640 (Given - Provider: Melly Lazcano RN)1315 (Given - Provider: Sumeet Braxton, JAIMIE)2251 (Given - Provider: Melly Lazcano, JAIMIE) 0624 (Given - Provider: Melly Lazcano RN)1400 (Not Given - Provider: Louise Crawford RN - Reason: Parameter(s) Not Met) Tamoxifen Citrate (Nolvadex) tab 20 mg 20 mg, Oral, Daily(AM), First dose on Thu04/28/24 at 0900, Until Discontinued 0853 (Given - Provider: Senia Coyle RN) 0821 (Given - Provider: Liya Renteria RN) 0911 (Given - Provider: Louise Crawford, RN) PRN Medication Order 04/30/2024 05/01/2024 05/02/2024 traMADol (Ultram) tab 50 mg 50 mg, Oral, Q12H PRN Pain, Severe, Starting on Thu04/27/24 at 1231, Until Thu05/02/24 at 1745, Post-op documented in this encounter Advance Directives * Full Code (Latest Code Status on File) Date Activated Date Inactivated Comments 04/27/2024 12:33 PM 05/02/2024 5:50 PM This order r eflects the patients wishes and were consensually agreed upon. Question Answer Comments Discussion of Advance Directives occurred with: Patient Care Teams Manufacturing Quality Inspector Relationship Specialty Start Date End Date Zackery Cochran DO [address] [place] [address] [place] [id number] PCP - General Family Medicine 04/20/24 documented as of this encounter
--- OUTSIDE RECORDS SUMMARY | 2024-05-14 11:52 | External Medical Summary | Summary of Care ---
Author Name Unknown Organization [facility] Address [address] [facility] [place] [address] Phone [phone] Care Team Providers Care Card Cleaner Name Role Phone DimasZackery Ren GIL Primary Care Provider + Encounter Details Date Type Department Care Team (Late st Contact Info) Description 05/04/2024 Orders Only PATIENT PORTAL DO NOT DELETE THIS DEPT USED BY [place] CHENG [id number] Allergies Active Allergy Reactions Criticality Noted Date Comments Iodinated Contrast Media 03/14/2022 Contraindicated due to solitary kidney Iron Nausea/vomiting Low 02/03/2024 documented as of this encounter (statuses as of 05/04/2024) Medications AMOXICILLIN 500 MG PO CAPS takes before dental procedures Active Cholecalciferol (VITAMIN D3) 2000 UNITS Capsule Take 1 Capsule by mouth in the morning. Active allopurinol (ZYLOPRIM) 100 MG Tablet Take 0.5 Tablets by mouth in the morning. Active traMADol (ULTRAM) 50 MG Tablet Take 1 Tablet by mouth 2 times a day as needed for Pain. Active Xarelto 15 MG Oral Tablet Take 1 Tablet by mouth at bedtime. 3 Active Calcitriol 0.25 MCG Oral Capsule (Rocaltrol) Take 2 Capsules by mouth in the morning. 2 Active Docusate Sodium 100 MG Oral Capsule Take 1 Capsule by mouth 2 times a day as needed for Constipation. Active Tamoxifen Citrate 10 MG Oral Tablet (Nolvadex) Take 2 Tablets by mouth in the morning. Active Magnesium 250 MG Oral Tablet Take 1 Tablet by mouth at bedtime. Active Cyanocobalamin 1000 MCG/ML Injection Solution (Cyanocobalamin ) Inject 1 mL into a large muscle every 3 months. Active Cyclobenzaprine HCl 5 MG Oral Tablet (Flexeril) Take [...] at noon and 1 Tablet before bedtime. 4 Active CPAP every night at bedtime. Active Aspirin 81 MG Oral Tablet Chewable Take 1 Tablet by mouth in the morning. 30 Tablet 11 5 Active Metoprolol Succinate ER 50 MG Oral Tablet Extended Release 24 Hour (toPROL XL) Take 2 Tablets by mouth at bedtime. 60 Tablet 11 5 Active Torsemide 40 MG Oral Tablet Take 80 mg by mouth in the morning and 80 mg before bedtime. 60 Tablet 11 5 Active documented as of this encounter (statuses as of 05/04/2024) Active Problems Problem Noted Date Diagnosed Date CKD (chronic kidney disease) stage 4, GFR 15-29 ml/min 04/28/2024 S/P mitral valve clip implantation 04/27/2024 [employer] Conf[employer] Other*[id number] 08/28 OBESITY, BMI 30-34 (SEE ACTUAL BMI) [...] as of this encounter (statuses as of 05/04/2024) Resolved Problems Problem Noted Date Diagnosed Date Resolved Date PURE HYPERCHOLESTEROLEM 07/07/200202/27 Overview (03/13/2009): Per Lipid Taxonomy. Morbid obesity, BMI not known 07/07/2002 06/21/2009 Overview (06/21/2009): Per Obesity Taxonomy documented as of this encounter (statuses as of 05/04/2024) Social History Tobacco Use Types Packs/Day Years [...] on file documented as of this encounter Functional Status * Are you [...] Marshall Enrique RN documented in this encounter Plan of Treatment Upcoming Encounters Date Type Department Care Team (Late st Contact Info) Description 05/31/2024 3:00 PM EST Cardiac Studies Cardiac Studies, [address] [place] [address] 06/06/2024 1:30 PM EDT Laboratory Laboratory, [address] [place] [id number] [facility] [address] [place] [address] 06/06/2024 2:00 PM EDT Office Visit Cardiology, [address] [place] [address] Herlinda Venegas PA-C [address] [place], [place] [address] [phone] Health Maintenance Due Date Last Done Comments [...] this encounter Medical Devices Implanted Type Area Civil Engineering Professional Device Identifier Shelf Expiration Date Model / Serial / Lot [employer] Sanjiv Implant System Implanted:Qty: 1 on 04/27/2024 by Shadi Patel MD at [facility] [employer] [id number] 11/23/[id number] / [id number] / [id number] [employer] Sanjiv Implant System Implanted:Qty: 1 on 04/27/2024 by Shadi Patel MD at [facility] [employer] [id number] 11/24/[id number] / [id number] / [id number] documented as of this encounter Advance Directives * Full Code (Latest Code Status on File) Date Activated Date Inactivated Comments 04/27/2024 12:33 PM 05/02/2024 5:50 PM This order r eflects the patients wishes and were consensually agreed upon. Question Answer Comments Discussion of Advance Directives occurred with: Patient Care Teams Card Cleaner Relationship Specialty Start Date End Date Zackery Cochran DO [address] [place] [address] [place] [address] PCP - General Family Medicine 04/20/24 documented as of this encounter
--- OUTSIDE RECORDS SUMMARY | 2024-05-14 11:53 | External Medical Summary ---
Author Name Unknown Address Unknown Organization K01:LABORATORY [facility] - [facility] [address] [facility] [address] Laboratory Report Ordering Provider Test Date Status JELANI MELENDEZ 04/28/2024 08:17:00 Final Observation Date Value Abnormality Reference (Units ) Status BUN 04/28/2024 08:17:00 44 Above high normal 6-20 (mg/dL) Final Creatinine 04/28/2024 08:17:00 2.9 Above high normal 0.6-1.2 (mg/dL) Final Glomerular filtration rate/1.73 sq M.predicted [Volume Rate/Area] in Serum, Plasma or Blood by Creatinine-based formula (CKD-EPI) 04/28/2024 08:17:00 21 Below low normal >=60 (mL/min) Final eGFR is calculated based on the CKD-EPI 2020 equation. Sodium 04/28/2024 08:17:00 141 135-146 (m mol/L) Final Potassium 04/28/2024 08:17:00 3.3 Below low normal 3.5 -5.1 (mmol/L) Final Cl 04/28/2024 08:17:00 99 98-107 (mm ol/L) Final CO2 04/28/2024 08:17:00 33 Above high normal 22 -32 (mmol/L) Final Anion gap 04/28/2024 08:17:00 9 7-15 (mmol /L) Final Glucose 04/28/2024 08:17:00 137 Above high normal 70 -120 (mg/dL) Final Calcium 04/28/2024 08:17:00 9.8 8.4-10.2 ( mg/dL) Final Performing Location LABORATORY [facility] - [address] [place] [address]
--- OUTSIDE RECORDS SUMMARY | 2024-05-14 11:53 | External Medical Summary ---
Author Name Unknown Address Unknown Organization K01:[facility] - [address] [place] [address] Laboratory Report Ordering Provider Test Date Status JELANI MELENDEZ 04/27/2024 14:00:00 Final Observation Date Value Abnormality Reference (Units ) Status Magnesium 04/27/2024 14:00:00 2.4 1.5-2.6 (m g/dL) Final Performing Location [facility] - [address] [place] [address]
--- OUTSIDE RECORDS SUMMARY | 2024-05-14 11:53 | External Medical Summary ---
Author Name Unknown Address Unknown Organization K01:[facility] - [address] [place] [address] Laboratory Report Ordering Provider Test Date Status JELANI MELENDEZ 04/29/2024 20:03:00 Final Observation Date Value Abnormality Reference (Units ) Status Magnesium 04/29/2024 20:03:00 2.2 1.5-2.6 (m g/dL) Final Performing Location [facility] - [address] [place] [address]
--- OUTSIDE RECORDS SUMMARY | 2024-05-14 11:53 | External Medical Summary ---
Author Name Unknown Address Unknown Organization : Laboratory Report Ordering Provider Test Date Status JULIANNE DELCID 05/01/2024 06:42:49 Final Observation Date Value Abnormality Reference (Units ) Status Glucose Point of Care 05/01/2024 06:42:49 96 70-120 (mg/dL) Final Performing Location
--- OUTSIDE RECORDS SUMMARY | 2024-05-14 11:53 | External Medical Summary ---
Author Name Unknown Address Unknown Organization : Laboratory Report Ordering Provider Test Date Status CARMELITA ROBERTSON 04/27/2024 10:48:53 Final NORMAL (NON-HEPARINIZED) 74- 137 SECONDS
HEPARINIZED 200+ SECONDS
CRITICAL GREATER THAN 1000 SECONDS
null Observation Date Value Abnormality Reference (Units ) Status Kaolin activated time [Units/volume] in Blood 04/27/2024 10:48:53 308 50-1000 (secs) Final Performing Location
--- OUTSIDE RECORDS SUMMARY | 2024-05-14 11:53 | External Medical Summary ---
Author Name Unknown Address Unknown Organization K01:[facility] - [address] [place] [address] Laboratory Report Ordering Provider Test Date Status JELANI MELENDEZ 04/28/2024 08:17:00 Final Observation Date Value Abnormality Reference (Units ) Status Magnesium 04/28/2024 08:17:00 2.4 1.5-2.6 (m g/dL) Final Performing Location [facility] - [address] [place] [address]
--- OUTSIDE RECORDS SUMMARY | 2024-05-14 11:53 | External Medical Summary ---
Author Name Unknown Address Unknown Organization K01:[facility] [address] [place] [address] Laboratory Report Ordering Provider Test Date Status JELANI MELENDEZ 05/01/2024 19:22:00 Final Observation Date Value Abnormality Reference (Units ) Status Magnesium 05/01/2024 19:22:00 2.2 1.5-2.6 (m g/dL) Final Performing Location [facility] - [address] [place] [address]
--- OUTSIDE RECORDS SUMMARY | 2024-05-14 11:53 | External Medical Summary ---
Author Name Unknown Address Unknown Organization K01:LABORATORY [facility] [place] - [address] [place] [address] Laboratory Report Ordering Provider Test Date Status JELANI MELENDEZ 04/29/2024 13:58:00 Final Observation Date Value Abnormality Reference (Units ) Status BUN 04/29/2024 13:58:00 52 Above high normal 6-20 (mg/dL) Final Creatinine 04/29/2024 13:58:00 3.0 Above high normal 0.6-1.2 (mg/dL) Final Glomerular filtration rate/1.73 sq M.predicted [Volume Rate/Area] in Serum, Plasma or Blood by Creatinine-based formula (CKD-EPI) 04/29/2024 13:58:00 21 Below low normal >=60 (mL/min) Final eGFR is calculated based on the CKD-EPI 2020 equation. Sodium 04/29/2024 13:58:00 142 135-146 (m mol/L) Final Potassium 04/29/2024 13:58:00 4.0 3.5-5.1 (m mol/L) Final Cl 04/29/2024 13:58:00 100 98-107 (mm ol/L) Final CO2 04/29/2024 13:58:00 31 22-32 (mmo l/L) Final Anion gap 04/29/2024 13:58:00 11 7-15 (mmol /L) Final Glucose 04/29/2024 13:58:00 108 70-120 (mg /dL) Final Calcium 04/29/2024 13:58:00 10.0 8.4-10.2 ( mg/dL) Final Performing Location LABORATORY [facility] [place] - [address] [place] [address]
--- OUTSIDE RECORDS SUMMARY | 2024-05-14 11:53 | External Medical Summary ---
Author Name Unknown Address Unknown Organization K01:LABORATORY [facility] [place] - [facility] [place] [address] [facility] [address] Laboratory Report Ordering Provider Test Date Status JELANI MELENDEZ 05/01/2024 09:30:00 Final Observation Date Value Abnormality Reference (Units ) Status WBC, Total 05/01/2024 09:30:00 7.17 4.00-10.80 (K/uL) Final RBC 05/01/2024 09:30:00 4.31 4.50-5.25 (M/uL) Final Hemoglobin 05/01/2024 09:30:00 10.7 Below low normal 14.0-16.8 (g/dL) Final HCT 05/01/2024 09:30:00 37.1 Below low normal 40.0-48.4 (%) Final MCV 05/01/2024 09:30:00 86.1 82.0-99.5 (fL) Final MCH 05/01/2024 09:30:00 24.8 27.0-34.0 (pg) Final MCHC 05/01/2024 09:30:00 28.8 32.0-36.0 (g/dL) Final RDW 05/01/2024 09:30:00 16.4 11.5-15.5 (%) Final Platelets 05/01/2024 09:30:00 148 140-400 (K/uL) Final MPV 05/01/2024 09:30:00 10.2 6.6-11.1 (fL) Final Nucleated erythrocytes/100 leukocytes [Ratio] in Blood by Automated count 05/01/2024 09:30:00 0 <=0 (/100 WBCs) Final Performing Location LABORATORY [facility] [place] - [address] [place] [address]
--- OUTSIDE RECORDS SUMMARY | 2024-05-14 11:53 | External Medical Summary ---
Author Name Unknown Address Unknown Organization : Laboratory Report Ordering Provider Test Date Status CARMELITA ROBERTSON 04/28/2024 18:15:53 Final Observation Date Value Abnormality Reference (Units ) Status Glucose Point of Care 04/28/2024 18:15:53 95 70-120 (mg/dL) Final Performing Location
--- OUTSIDE RECORDS SUMMARY | 2024-05-14 11:53 | External Medical Summary ---
Author Name Unknown Address Unknown Organization K01:LABORATORY [facility] [place] - [address] [facility] [address] Laboratory Report Ordering Provider Test Date Status JELANI MELENDEZ 05/02/2024 06:06:00 Final Observation Date Value Abnormality Reference (Units ) Status WBC, Total 05/02/2024 06:06:00 7.63 4.00-10.80 (K/uL) Final RBC 05/02/2024 06:06:00 4.54 4.50-5.25 (M/uL) Final Hemoglobin 05/02/2024 06:06:00 11.5 Below low normal 14.0-16.8 (g/dL) Final HCT 05/02/2024 06:06:00 38.8 Below low normal 40.0-48.4 (%) Final MCV 05/02/2024 06:06:00 85.5 82.0-99.5 (fL) Final MCH 05/02/2024 06:06:00 25.3 27.0-34.0 (pg) Final MCHC 05/02/2024 06:06:00 29.6 32.0-36.0 (g/dL) Final RDW 05/02/2024 06:06:00 16.5 11.5-15.5 (%) Final Platelets 05/02/2024 06:06:00 150 140-400 (K/uL) Final MPV 05/02/2024 06:06:00 10.2 6.6-11.1 (fL) Final Nucleated erythrocytes/100 leukocytes [Ratio] in Blood by Automated count 05/02/2024 06:06:00 0 <=0 (/100 WBCs) Final Performing Location LABORATORY [facility] [place] - [address] [place] [address]
--- OUTSIDE RECORDS SUMMARY | 2024-05-14 11:53 | External Medical Summary ---
Author Name Unknown Address Unknown Organization K01:[facility] - [address] [place] [address] Laboratory Report Ordering Provider Test Date Status JELANI MELENDEZ 04/30/2024 08:49:00 Final Observation Date Value Abnormality Reference (Units ) Status Magnesium 04/30/2024 08:49:00 2.2 1.5-2.6 (m g/dL) Final Performing Location [facility] - [address] [place] [address]
--- OUTSIDE RECORDS SUMMARY | 2024-05-14 11:53 | External Medical Summary ---
Author Name Unknown Address Unknown Organization K01:[facility] [place] [facility] [place] [address] [place] [address] Laboratory Report Ordering Provider Test Date Status JELANI MELENDEZ 05/01/2024 09:30:00 Final Observation Date Value Abnormality Reference (Units ) Status BUN 05/01/2024 09:30:00 57 Above high normal 6-20 (mg/dL) Final Creatinine 05/01/2024 09:30:00 2.9 Above high normal 0.6-1.2 (mg/dL) Final Glomerular filtration rate/1.73 sq M.predicted [Volume Rate/Area] in Serum, Plasma or Blood by Creatinine-based formula (CKD-EPI) 05/01/2024 09:30:00 21 Below low normal >=60 (mL/min) Final eGFR is calculated based on the CKD-EPI 2020 equation. Sodium 05/01/2024 09:30:00 140 135-146 (m mol/L) Final Potassium 05/01/2024 09:30:00 3.9 3.5-5.1 (m mol/L) Final Cl 05/01/2024 09:30:00 97 Below low normal 98- 107 (mmol/L) Final CO2 05/01/2024 09:30:00 32 22-32 (mmo l/L) Final Anion gap 05/01/2024 09:30:00 11 7-15 (mmol /L) Final Glucose 05/01/2024 09:30:00 220 Above high normal 70 -120 (mg/dL) Final Calcium 05/01/2024 09:30:00 10.2 8.4-10.2 ( mg/dL) Final Performing Location [facility] [place] [address] [place] [address]
--- OUTSIDE RECORDS SUMMARY | 2024-05-14 11:53 | External Medical Summary ---
Author Name Unknown Address Unknown Organization K01:[facility] - [address] [place] [address] Laboratory Report Ordering Provider Test Date Status JELANI MELENDEZ 04/30/2024 19:32:00 Final Observation Date Value Abnormality Reference (Units ) Status Magnesium 04/30/2024 19:32:00 2.1 1.5-2.6 (m g/dL) Final Performing Location [facility] - [address] [place] [address]
--- OUTSIDE RECORDS SUMMARY | 2024-05-14 11:53 | External Medical Summary ---
Author Name Unknown Address Unknown Organization K01:[facility] [place] [address] [place] [address] Laboratory Report Ordering Provider Test Date Status JELANI MELENEDZ 04/29/2024 07:55:00 Final Observation Date Value Abnormality Reference (Units ) Status BUN 04/29/2024 07:55:00 52 Above high normal 6-20 (mg/dL) Final Creatinine 04/29/2024 07:55:00 3.0 Above high normal 0.6-1.2 (mg/dL) Final Glomerular filtration rate/1.73 sq M.predicted [Volume Rate/Area] in Serum, Plasma or Blood by Creatinine-based formula (CKD-EPI) 04/29/2024 07:55:00 20 Below low normal >=60 (mL/min) Final eGFR is calculated based on the CKD-EPI 2020 equation. Sodium 04/29/2024 07:55:00 139 135-146 (m mol/L) Final Potassium 04/29/2024 07:55:00 3.7 3.5-5.1 (m mol/L) Final Cl 04/29/2024 07:55:00 100 98-107 (mm ol/L) Final CO2 04/29/2024 07:55:00 30 22-32 (mmo l/L) Final Anion gap 04/29/2024 07:55:00 9 7-15 (mmol /L) Final Glucose 04/29/2024 07:55:00 92 70-120 (mg /dL) Final Calcium 04/29/2024 07:55:00 10.0 8.4-10.2 ( mg/dL) Final Performing Location [facility] [place] [address] [place] [address]
--- OUTSIDE RECORDS SUMMARY | 2024-05-14 11:53 | External Medical Summary ---
Author Name Unknown Address Unknown Organization : Laboratory Report Ordering Provider Test Date Status JULIANNE DELCID 04/30/2024 21:13:00 Final Observation Date Value Abnormality Reference (Units ) Status Glucose Point of Care 04/30/2024 21:13:00 79 70-120 (mg/dL) Final Performing Location
--- OUTSIDE RECORDS SUMMARY | 2024-05-14 11:53 | External Medical Summary ---
Author Name Unknown Address Unknown Organization K01:LABORATORY [facility] [place] - [address] [place] [address] Laboratory Report Ordering Provider Test Date Status JELANI MELENDEZ 05/02/2024 09:23:00 Final Observation Date Value Abnormality Reference (Units ) Status BUN 05/02/2024 09:23:00 60 Above high normal 6-20 (mg/dL) Final Creatinine 05/02/2024 09:23:00 3.0 Above high normal 0.6-1.2 (mg/dL) Final Glomerular filtration rate/1.73 sq M.predicted [Volume Rate/Area] in Serum, Plasma or Blood by Creatinine-based formula (CKD-EPI) 05/02/2024 09:23:00 21 Below low normal >=60 (mL/min) Final eGFR is calculated based on the CKD-EPI 2020 equation. Sodium 05/02/2024 09:23:00 138 135-146 (m mol/L) Final Potassium 05/02/2024 09:23:00 3.6 3.5-5.1 (m mol/L) Final Cl 05/02/2024 09:23:00 92 Below low normal 98- 107 (mmol/L) Final CO2 05/02/2024 09:23:00 34 Above high normal 22 -32 (mmol/L) Final Anion gap 05/02/2024 09:23:00 12 7-15 (mmol /L) Final Glucose 05/02/2024 09:23:00 204 Above high normal 70 -120 (mg/dL) Final Calcium 05/02/2024 09:23:00 10.4 Above high normal 8. 4-10.2 (mg/dL) Final Performing Location LABORATORY [facility] [place] - [address] [place] [address]
--- OUTSIDE RECORDS SUMMARY | 2024-05-14 11:53 | External Medical Summary ---
Author Name Unknown Address Unknown Organization K01:LABORATORY [facility] [place] - [address] [place] [address] Laboratory Report Ordering Provider Test Date Status JELANI MELENDEZ 04/27/2024 19:59:00 Final Observation Date Value Abnormality Reference (Units ) Status BUN 04/27/2024 19:59:00 43 Above high normal 6-20 (mg/dL) Final Creatinine 04/27/2024 19:59:00 2.8 Above high normal 0.6-1.2 (mg/dL) Final Glomerular filtration rate/1.73 sq M.predicted [Volume Rate/Area] in Serum, Plasma or Blood by Creatinine-based formula (CKD-EPI) 04/27/2024 19:59:00 22 Below low normal >=60 (mL/min) Final eGFR is calculated based on the CKD-EPI 2020 equation. Sodium 04/27/2024 19:59:00 140 135-146 (m mol/L) Final Potassium 04/27/2024 19:59:00 4.1 3.5-5.1 (m mol/L) Final Cl 04/27/2024 19:59:00 99 98-107 (mm ol/L) Final CO2 04/27/2024 19:59:00 29 22-32 (mmo l/L) Final Anion gap 04/27/2024 19:59:00 12 7-15 (mmol /L) Final Glucose 04/27/2024 19:59:00 280 Above high normal 70 -120 (mg/dL) Final Calcium 04/27/2024 19:59:00 9.7 8.4-10.2 ( mg/dL) Final Performing Location LABORATORY [facility] [place] - [address] [place] [address]
--- OUTSIDE RECORDS SUMMARY | 2024-05-14 11:53 | External Medical Summary ---
Author Name Unknown Address Unknown Organization K01:[facility] [place] [facility] [address] [facility] [address] Laboratory Report Ordering Provider Test Date Status JELANI MELENDEZ 04/27/2024 14:00:00 Final Observation Date Value Abnormality Reference (Units ) Status WBC, Total 04/27/2024 14:00:00 8.71 4.00-10.80 (K/uL) Final RBC 04/27/2024 14:00:00 4.29 4.50-5.25 (M/uL) Final Hemoglobin 04/27/2024 14:00:00 10.8 Below low normal 14.0-16.8 (g/dL) Final HCT 04/27/2024 14:00:00 36.6 Below low normal 40.0-48.4 (%) Final MCV 04/27/2024 14:00:00 85.3 82.0-99.5 (fL) Final MCH 04/27/2024 14:00:00 25.2 27.0-34.0 (pg) Final MCHC 04/27/2024 14:00:00 29.5 32.0-36.0 (g/dL) Final RDW 04/27/2024 14:00:00 16.2 11.5-15.5 (%) Final Platelets 04/27/2024 14:00:00 153 140-400 (K/uL) Final MPV 04/27/2024 14:00:00 9.9 6.6-11.1 (fL) Final Nucleated erythrocytes/100 leukocytes [Ratio] in Blood by Automated count 04/27/2024 14:00:00 0 <=0 (/100 WBCs) Final Performing Location [facility] [place] [address] [facility] [address]
--- OUTSIDE RECORDS SUMMARY | 2024-05-14 11:53 | External Medical Summary ---
Author Name Unknown Address Unknown Organization K01:LABORATORY [facility] [place] - [address] [place] [address] Laboratory Report Ordering Provider Test Date Status JELANI MELENDEZ 04/28/2024 23:01:00 Final Observation Date Value Abnormality Reference (Units ) Status BUN 04/28/2024 23:01:00 48 Above high normal 6-20 (mg/dL) Final Creatinine 04/28/2024 23:01:00 3.0 Above high normal 0.6-1.2 (mg/dL) Final Glomerular filtration rate/1.73 sq M.predicted [Volume Rate/Area] in Serum, Plasma or Blood by Creatinine-based formula (CKD-EPI) 04/28/2024 23:01:00 20 Below low normal >=60 (mL/min) Final eGFR is calculated based on the CKD-EPI 2020 equation. Sodium 04/28/2024 23:01:00 140 135-146 (m mol/L) Final Potassium 04/28/2024 23:01:00 3.9 3.5-5.1 (m mol/L) Final Cl 04/28/2024 23:01:00 100 98-107 (mm ol/L) Final CO2 04/28/2024 23:01:00 30 22-32 (mmo l/L) Final Anion gap 04/28/2024 23:01:00 10 7-15 (mmol /L) Final Glucose 04/28/2024 23:01:00 102 70-120 (mg /dL) Final Calcium 04/28/2024 23:01:00 9.6 8.4-10.2 ( mg/dL) Final Performing Location LABORATORY [facility] [place] - [address] [place] [address]
--- OUTSIDE RECORDS SUMMARY | 2024-05-14 11:53 | External Medical Summary ---
Author Name Unknown Address Unknown Organization : Laboratory Report Ordering Provider Test Date Status JULIANNE DELCID 04/29/2024 21:45:21 Final Observation Date Value Abnormality Reference (Units ) Status Glucose Point of Care 04/29/2024 21:45:21 99 70-120 (mg/dL) Final Performing Location
--- OUTSIDE RECORDS SUMMARY | 2024-05-14 11:53 | External Medical Summary ---
Author Name Unknown Address Unknown Organization K01:LABORATORY [facility] - [facility] [address] [facility] [address] Laboratory Report Ordering Provider Test Date Status JELANI MELENDEZ 04/30/2024 04:35:00 Final Observation Date Value Abnormality Reference (Units ) Status WBC, Total 04/30/2024 04:35:00 8.04 4.00-10.80 (K/uL) Final RBC 04/30/2024 04:35:00 4.50 4.50-5.25 (M/uL) Final Hemoglobin 04/30/2024 04:35:00 11.2 Below low normal 14.0-16.8 (g/dL) Final HCT 04/30/2024 04:35:00 38.4 Below low normal 40.0-48.4 (%) Final MCV 04/30/2024 04:35:00 85.3 82.0-99.5 (fL) Final MCH 04/30/2024 04:35:00 24.9 27.0-34.0 (pg) Final MCHC 04/30/2024 04:35:00 29.2 32.0-36.0 (g/dL) Final RDW 04/30/2024 04:35:00 16.3 11.5-15.5 (%) Final Platelets 04/30/2024 04:35:00 160 140-400 (K/uL) Final MPV 04/30/2024 04:35:00 10.0 6.6-11.1 (fL) Final Nucleated erythrocytes/100 leukocytes [Ratio] in Blood by Automated count 04/30/2024 04:35:00 0 <=0 (/100 WBCs) Final Performing Location LABORATORY [facility] - [address] [place] [address]
--- OUTSIDE RECORDS SUMMARY | 2024-05-14 11:53 | External Medical Summary ---
Author Name Unknown Address Unknown Organization : Laboratory Report Ordering Provider Test Date Status JULIANNE DELCID 04/30/2024 11:11:02 Final Observation Date Value Abnormality Reference (Units ) Status Glucose Point of Care 04/30/2024 11:11:02 97 70-120 (mg/dL) Final Performing Location
--- OUTSIDE RECORDS SUMMARY | 2024-05-14 11:53 | External Medical Summary ---
Author Name Unknown Address Unknown Organization : Laboratory Report Ordering Provider Test Date Status JULIANNE DELCID 04/29/2024 16:59:44 Final Observation Date Value Abnormality Reference (Units ) Status Glucose Point of Care 04/29/2024 16:59:44 100 70-120 (mg/dL) Final Performing Location
--- OUTSIDE RECORDS SUMMARY | 2024-05-14 11:53 | External Medical Summary ---
Author Name Unknown Address Unknown Organization : Laboratory Report Ordering Provider Test Date Status JULIANNE DELCID 04/29/2024 07:27:46 Final Observation Date Value Abnormality Reference (Units ) Status Glucose Point of Care 04/29/2024 07:27:46 90 70-120 (mg/dL) Final Performing Location
--- OUTSIDE RECORDS SUMMARY | 2024-05-14 11:53 | External Medical Summary ---
Author Name Unknown Address Unknown Organization K01:[place] [place] [facility] [address] [facility] [address] Laboratory Report Ordering Provider Test Date Status JELANI MELENDEZ 04/28/2024 04:01:00 Final Observation Date Value Abnormality Reference (Units ) Status WBC, Total 04/28/2024 04:01:00 8.72 4.00-10.80 (K/uL) Final RBC 04/28/2024 04:01:00 3.97 4.50-5.25 (M/uL) Final Hemoglobin 04/28/2024 04:01:00 10.1 Below low normal 14.0-16.8 (g/dL) Final HCT 04/28/2024 04:01:00 34.2 Below low normal 40.0-48.4 (%) Final MCV 04/28/2024 04:01:00 86.1 82.0-99.5 (fL) Final MCH 04/28/2024 04:01:00 25.4 27.0-34.0 (pg) Final MCHC 04/28/2024 04:01:00 29.5 32.0-36.0 (g/dL) Final RDW 04/28/2024 04:01:00 16.1 11.5-15.5 (%) Final Platelets 04/28/2024 04:01:00 147 140-400 (K/uL) Final MPV 04/28/2024 04:01:00 9.9 6.6-11.1 (fL) Final Nucleated erythrocytes/100 leukocytes [Ratio] in Blood by Automated count 04/28/2024 04:01:00 0 <=0 (/100 WBCs) Final Performing Location [facility] [place] [address] [facility] [address]
--- OUTSIDE RECORDS SUMMARY | 2024-05-14 11:53 | External Medical Summary ---
Author Name Unknown Address Unknown Organization K01:LABORATORY [facility] [place] [address] [place] [address] Laboratory Report Ordering Provider Test Date Status JELANI MELENDEZ 04/29/2024 20:03:00 Final Observation Date Value Abnormality Reference (Units ) Status BUN 04/29/2024 20:03:00 53 Above high normal 6-20 (mg/dL) Final Creatinine 04/29/2024 20:03:00 3.1 Above high normal 0.6-1.2 (mg/dL) Final Glomerular filtration rate/1.73 sq M.predicted [Volume Rate/Area] in Serum, Plasma or Blood by Creatinine-based formula (CKD-EPI) 04/29/2024 20:03:00 19 Below low normal >=60 (mL/min) Final eGFR is calculated based on the CKD-EPI 2020 equation. Sodium 04/29/2024 20:03:00 140 135-146 (m mol/L) Final Potassium 04/29/2024 20:03:00 4.2 3.5-5.1 (m mol/L) Final Cl 04/29/2024 20:03:00 98 98-107 (mm ol/L) Final CO2 04/29/2024 20:03:00 31 22-32 (mmo l/L) Final Anion gap 04/29/2024 20:03:00 11 7-15 (mmol /L) Final Glucose 04/29/2024 20:03:00 117 70-120 (mg /dL) Final Calcium 04/29/2024 20:03:00 10.2 8.4-10.2 ( mg/dL) Final Performing Location LABORATORY [facility] [place] - [address] [place] [address]
--- OUTSIDE RECORDS SUMMARY | 2024-05-14 11:53 | External Medical Summary ---
Author Name Unknown Address Unknown Organization K01:LABORATORY [address] [address] Laboratory Report Ordering Provider Test Date Status JELANI MELENDEZ 04/29/2024 03:56:00 Final Observation Date Value Abnormality Reference (Units ) Status WBC, Total 04/29/2024 03:56:00 9.03 4.00-10.80 (K/uL) Final RBC 04/29/2024 03:56:00 3.92 4.50-5.25 (M/uL) Final Hemoglobin 04/29/2024 03:56:00 9.7 Below low normal 14.0-16.8 (g/dL) Final HCT 04/29/2024 03:56:00 33.4 Below low normal 40.0-48.4 (%) Final MCV 04/29/2024 03:56:00 85.2 82.0-99.5 (fL) Final MCH 04/29/2024 03:56:00 24.7 27.0-34.0 (pg) Final MCHC 04/29/2024 03:56:00 29.0 32.0-36.0 (g/dL) Final RDW 04/29/2024 03:56:00 16.1 11.5-15.5 (%) Final Platelets 04/29/2024 03:56:00 139 Below low normal 140-400 (K/uL) Final MPV 04/29/2024 03:56:00 9.7 6.6-11.1 (fL) Final Nucleated erythrocytes/100 leukocytes [Ratio] in Blood by Automated count 04/29/2024 03:56:00 0 <=0 (/100 WBCs) Final Performing Location [facility] [place] [address] [place] [address]
--- OUTSIDE RECORDS SUMMARY | 2024-05-14 11:53 | External Medical Summary ---
Author Name Unknown Address Unknown Organization K01:[facility] - [address] [place] [address] Laboratory Report Ordering Provider Test Date Status JELANI MELENDEZ 04/28/2024 23:01:00 Final Observation Date Value Abnormality Reference (Units ) Status Magnesium 04/28/2024 23:01:00 2.2 1.5-2.6 (m g/dL) Final Performing Location [facility] - [address] [place] [address]
--- OUTSIDE RECORDS SUMMARY | 2024-05-14 11:53 | External Medical Summary ---
Author Name Unknown Address Unknown Organization K09:LABORATORY [facility] [place] [address] Laboratory Report Ordering Provider Test Date Status PAYAL PALOMINO 05/03/2024 05:53:53 Final Observation Date Value Abnormality Reference (Units ) Status WBC, Total 05/03/2024 05:53:53 8.15 4.00-10.8 0 (K/uL) Final RBC 05/03/2024 05:53:53 4.44 4.50-5.25 (M/uL) Final Hemoglobin 05/03/2024 05:53:53 11.1 Below low normal 14 .0-16.8 (g/dL) Final HCT 05/03/2024 05:53:53 37.1 Below low normal 40. 0-48.4 (%) Final MCV 05/03/2024 05:53:53 83.6 82.0-99.5 (fL) Final MCH 05/03/2024 05:53:53 25.0 27.0-34.0 (pg) Final MCHC 05/03/2024 05:53:53 29.9 32.0-36.0 (g/dL) Final RDW 05/03/2024 05:53:53 17.1 11.5-15.5 (%) Final Platelets 05/03/2024 05:53:53 159 140-400 (K /uL) Final MPV 05/03/2024 05:53:53 10.8 6.6-11.1 ( fL) Final Performing Location LABORATORY [place] [address]
--- OUTSIDE RECORDS SUMMARY | 2024-05-14 11:53 | External Medical Summary | Summary of Care ---
Author Name Unknown Organization [facility] Address [address] [place] [address] Phone [phone] Care Team Providers Care Shuttle Car Operator Name Role Phone Zackery Cochran DO Primary Care Provider + Reason for Visit * Auth/Cert Specialty Diagnoses / Procedures Referred By Jaleesa t Referred To Contact Diagnoses Mitral regurgitation Mitral regurgitation [I34.0] Procedures TRANSCATH REPAIR MITRAL VALVE, INITIAL TRANSCATHETER MITRAL VALVE REPAIR Shadi Patel MD [address] [place] [address] Phone: tel: fax: CRS Waiting [facility], Cardiac Recovery Suite Waiting Unit, [address] [place] [address] Phone: tel: Referral ID Status Reason Start Date Expiration Date Visits Re quested Visits Authorized [id number] Encounter Details Date Type Department Care Team (Latest Contact Info) Description 04/28/2024 6:21 AM EST - 04/28/2024 11:59 PM EST Hospital Encounter Cardiac Studies [facility] [address] [place] [address] Discharge Disposition: Home - Self Care Allergies Active Allergy Reactions Criticality Noted Date Comments Iodinated Contrast Media 03/14/2022 Contraindicated due to solitary kidney Iron Nausea/vomiting Low 02/03/2024 documented as of this encounter (statuses as of 04/29/2024) Medications AMOXICILLIN 500 MG PO CAPS takes before dental procedures Suspended Bumetanide 2 MG Tablet Take 1.5 Tablets by mouth in the morning. Suspended Cholecalcifero l (VITAMIN D3) 2000 UNITS Capsule Take 1 Capsule by mouth in the morning. Suspended allopurinol (ZYLOPRIM) 100 MG Tablet Take 0.5 Tablets by mouth in the morning. Suspended traMADol (ULTRAM) 50 MG Tablet Take 1 Tablet by mouth 2 times a day as needed for Pain. Suspended Xarelto 15 MG Oral Tablet Take 1 Tablet by mouth at bedtime. 3 Suspended Metoprolol Succinate ER 25 MG Oral Tablet Extended Release 24 Hour (toPROL XL) Take 3 Tablets by mouth at bedtime. 3 Suspended Calcitriol 0.25 MCG Oral Capsule (Rocaltrol) Take 2 Capsules by mouth in the morning. 2 Suspended metOLazone 5 MG Oral Tablet (Zaroxolyn) Take 1 Tablet by mouth as needed (weight gain). 3 Suspended Docusate Sodium 100 MG Oral Capsule Take 1 Capsule by mouth 2 times a day as needed for Constipation. Suspended Tamoxifen Citrate 10 MG Oral Tablet (Nolvadex) Take 2 Tablets by mouth in the morning. Suspended Magnesium 250 MG Oral Tablet Take 1 Tablet by mouth at bedtime. Suspended Cyanocobalamin 1000 MCG/ML Injection Solution (Cyanocobalami n) Inject 1 mL into a large muscle every 3 months. Suspended Cyclobenzaprin e HCl 5 MG Oral Tablet (Flexeril) Take 1 Tablet by mouth 2 times a day as needed for Muscle spasms. Suspended Potassium Chloride Mikki ER 10 MEQ Oral Tablet Extended Release Take 2 Tablets by mouth in the morning and 2 Tablets before bedtime. Suspended Midodrine HCl 10 MG Oral Tablet (Proamatine) Take 1 Tablet by mouth in the morning and 1 Tablet at noon and 1 Tablet before bedtime. 4 Suspended CPAP every night at bedtime. Suspended documented as of this encounter (statuses as of 04/29/2024) Active Problems Problem Noted Date Diagnosed Date CKD (chronic kidney disease) stage 4, GFR 15-29 ml/min 04/28/2024 S/P mitral valve clip implantation 04/27/2024 [facility] Confirmation Research Other*[id number] 08/28 OBESITY, BMI 30-34 (SEE ACTUAL BMI) [...] as of this encounter (statuses as of 04/29/2024) Resolved Problems Problem Noted Date Diagnosed Date Resolved Date PURE HYPERCHOLESTEROLEM 07/07/200202/27 Overview (03/13/2009): Per Lipid Taxonomy. Morbid obesity, BMI not known 07/07/2002 06/21/2009 Overview (06/21/2009): Per Obesity Taxonomy documented as of this encounter (statuses as of 04/29/2024) Social History Tobacco Use Types Packs/Day Years [...] of Assessment Author No 04/28/2024 12:47 AM EST Marshall Vasquez RN * Are you blind or do [...] Care Team (Late st Contact Info) Description 2024 2:30 PM EST Office Visit Cardiology [facility] [address] [place] [address] Adriel Gautam, [facility] [address] [place] [address] 05/31/2024 3:00 PM EST Cardiac Studies Cardiac Studies, [address] [place] [address] 06/06/2024 1:30 PM EDT Laboratory Laboratory, [address] [id number] Cintia Jimenez [address] [address] 06/06/2024 2:00 PM EDT Office Visit Cardiology, [address] [place] [address] Herlinda Venegas PA-C [address] [place] [address] Health Maintenance Due Date Last Done Comments Depression Screening 1952 Albumin/Creatinine Ratio 1960 DTap/Tdap Vaccines (1 - Tdap) 1961 COVID-19 Vaccine ( season) 2023 01/21/2023, 03/11/2022, 01/21/2021, Additional history exists GFR 10/27/2024 04/29/2024, 04/01, 04/28/2024, Additional history exists Zoster Vaccines Completed 03/30/2018, [...] this encounter Medical Devices Implanted Type Area Automotive Worker Foreman Device Identifier Shelf Expiration Date Model / Serial / Lot [employer] Sanjiv Implant System Implanted:Qty: 1 on 04/27/2024 by Shadi Patel MD at [facility] [employer] [id number] 11/23/[id number] / [id number] / [id number] [employer] Sanjiv Implant System Implanted:Qty: 1 on 04/27/2024 by Shadi Patel MD at [facility] [employer] [id number] 11/24/[id number] / [id number] / [id number] documented as of this encounter Procedures Procedure Name Priority Date/Time Associated Diagnosis Comments ECHO, COMPLETE (2D), TRANS-THORACIC Routine 04/28/2024 7:30 AM EST S/P TAVR (transcatheter aortic valve replacement) documented in this encounter Visit Diagnoses Diagnosis S/P mitral valve clip implantation- Primary HTN, goal below 140/90 Unspecified essential hypertension S/P aortic valve replacement Heart valve replaced by other means 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 documented in this encounter Administered Medications Inactive Administered Medications - up to 3 most recent administrations Medication Order MAR Action Action Date Dose Rate Site perflutren lipid microsphere inj SUSP 1.956 mg 1.956 mg, Intravenous, ONCE PRN Other, For Echo Only - Suboptimal Echo Images, Starting on Megan 04/28/24 at 0704, Until Megan 04/28/24 at 0903, For 2 hours, Administer IVP over 45 seconds, Cardiac Studies_HODHOVIndications:S/P mitral valve clip implantation,HTN, goal below 140/90,S/P aortic valve replacement,Aortocoronary bypass status Given 04/28/2024 7:05 AM EST 1.956 mg documented in this encounter Advance Directives * Full Code (Latest Code Status on File) Date Activated Date Inactivated Comments 04/27/2024 12:33 PM This order re flects the patients wishes and were consensually agreed upon. Question Answer Comments Discussion of Advance Directives occurred with: Patient Care Teams Shuttle Car Operator Relationship Specialty Start Date End Date Zackery Cochran DO [address] [place], [place] [address] [address] PCP - General Family Medicine 04/20/24 documented as of this encounter
--- OUTSIDE RECORDS SUMMARY | 2024-05-14 11:53 | External Medical Summary ---
Author Name Unknown Address Unknown Organization K01:[facility] [address] [place] [address] Laboratory Report Ordering Provider Test Date Status JELANI MELENDEZ 04/29/2024 07:55:00 Final Observation Date Value Abnormality Reference (Units ) Status Magnesium 04/29/2024 07:55:00 2.2 1.5-2.6 (m g/dL) Final Performing Location [facility] [address] [place] [address]
--- OUTSIDE RECORDS SUMMARY | 2024-05-14 11:53 | External Medical Summary ---
Author Name Unknown Address Unknown Organization : Laboratory Report Ordering Provider Test Date Status JULIANNE DELCID 04/28/2024 21:12:26 Final Observation Date Value Abnormality Reference (Units ) Status Glucose Point of Care 04/28/2024 21:12:26 89 70-120 (mg/dL) Final Performing Location
--- OUTSIDE RECORDS SUMMARY | 2024-05-14 11:53 | External Medical Summary ---
Author Name Unknown Address Unknown Organization : Laboratory Report Ordering Provider Test Date Status JULIANNE DELCID 04/29/2024 11:04:36 Final Observation Date Value Abnormality Reference (Units ) Status Glucose Point of Care 04/29/2024 11:04:36 79 70-120 (mg/dL) Final Performing Location
--- OUTSIDE RECORDS SUMMARY | 2024-05-14 11:53 | External Medical Summary ---
Author Name Unknown Address Unknown Organization K01:[facility] [place] [address] [facility] [address] Laboratory Report Ordering Provider Test Date Status JELANI MELENDEZ 04/27/2024 14:00:00 Final Observation Date Value Abnormality Reference (Units ) Status BUN 04/27/2024 14:00:00 41 Above high normal 6-20 (mg/dL) Final Creatinine 04/27/2024 14:00:00 2.7 Above high normal 0.6-1.2 (mg/dL) Final Glomerular filtration rate/1.73 sq M.predicted [Volume Rate/Area] in Serum, Plasma or Blood by Creatinine-based formula (CKD-EPI) 04/27/2024 14:00:00 23 Below low normal >=60 (mL/min) Final eGFR is calculated based on the CKD-EPI 2020 equation. Sodium 04/27/2024 14:00:00 140 135-146 (m mol/L) Final Potassium 04/27/2024 14:00:00 3.1 Below low normal 3.5 -5.1 (mmol/L) Final Cl 04/27/2024 14:00:00 100 98-107 (mm ol/L) Final CO2 04/27/2024 14:00:00 27 22-32 (mmo l/L) Final Anion gap 04/27/2024 14:00:00 13 7-15 (mmol /L) Final Glucose 04/27/2024 14:00:00 132 Above high normal 70 -120 (mg/dL) Final Calcium 04/27/2024 14:00:00 9.5 8.4-10.2 ( mg/dL) Final Performing Location [facility] [place] [address] [place] [address]
--- OUTSIDE RECORDS SUMMARY | 2024-05-14 11:53 | External Medical Summary ---
Author Name Unknown Address Unknown Organization K01:[facility]ATORY [facility] - [address] [facility] [address] Laboratory Report Ordering Provider Test Date Status JELANI MELENDEZ 05/01/2024 19:22:00 Final Observation Date Value Abnormality Reference (Units ) Status BUN 05/01/2024 19:22:00 58 Above high normal 6-20 (mg/dL) Final Creatinine 05/01/2024 19:22:00 3.2 Above high normal 0.6-1.2 (mg/dL) Final Glomerular filtration rate/1.73 sq M.predicted [Volume Rate/Area] in Serum, Plasma or Blood by Creatinine-based formula (CKD-EPI) 05/01/2024 19:22:00 19 Below low normal >=60 (mL/min) Final eGFR is calculated based on the CKD-EPI 2020 equation. Sodium 05/01/2024 19:22:00 139 135-146 (m mol/L) Final Potassium 05/01/2024 19:22:00 3.9 3.5-5.1 (m mol/L) Final Cl 05/01/2024 19:22:00 96 Below low normal 98- 107 (mmol/L) Final CO2 05/01/2024 19:22:00 35 Above high normal 22 -32 (mmol/L) Final Anion gap 05/01/2024 19:22:00 8 7-15 (mmol /L) Final Glucose 05/01/2024 19:22:00 192 Above high normal 70 -120 (mg/dL) Final Calcium 05/01/2024 19:22:00 10.2 8.4-10.2 ( mg/dL) Final Performing Location LAB[facility]ATORY [facility] - [address] [place] [address]
--- OUTSIDE RECORDS SUMMARY | 2024-05-14 11:53 | External Medical Summary ---
Author Name Unknown Address Unknown Organization K01:LAB[facility]ATORY [facility] - [facility] [address] [facility] [address] Laboratory Report Ordering Provider Test Date Status JELANI MELENDEZ 04/30/2024 19:32:00 Final Observation Date Value Abnormality Reference (Units ) Status BUN 04/30/2024 19:32:00 55 Above high normal 6-20 (mg/dL) Final Creatinine 04/30/2024 19:32:00 3.0 Above high normal 0.6-1.2 (mg/dL) Final Glomerular filtration rate/1.73 sq M.predicted [Volume Rate/Area] in Serum, Plasma or Blood by Creatinine-based formula (CKD-EPI) 04/30/2024 19:32:00 20 Below low normal >=60 (mL/min) Final eGFR is calculated based on the CKD-EPI 2020 equation. Sodium 04/30/2024 19:32:00 140 135-146 (m mol/L) Final Potassium 04/30/2024 19:32:00 3.0 Below low normal 3.5 -5.1 (mmol/L) Final Cl 04/30/2024 19:32:00 96 Below low normal 98- 107 (mmol/L) Final CO2 04/30/2024 19:32:00 35 Above high normal 22 -32 (mmol/L) Final Anion gap 04/30/2024 19:32:00 9 7-15 (mmol /L) Final Glucose 04/30/2024 19:32:00 148 Above high normal 70 -120 (mg/dL) Final Calcium 04/30/2024 19:32:00 10.1 8.4-10.2 ( mg/dL) Final Performing Location LABORATORY [facility] - [address] [place] [address]
--- OUTSIDE RECORDS SUMMARY | 2024-05-14 11:53 | External Medical Summary ---
Author Name Unknown Address Unknown Organization : Laboratory Report Ordering Provider Test Date Status CARMELITA ROBERTSON 04/27/2024 09:54:22 Final NORMAL (NON-HEPARINIZED) 74- 137 SECONDS
HEPARINIZED 200+ SECONDS
CRITICAL GREATER THAN 1000 SECONDS
null Observation Date Value Abnormality Reference (Units ) Status Kaolin activated time [Units/volume] in Blood 04/27/2024 09:54:22 285 50-1000 (secs) Final Performing Location
--- OUTSIDE RECORDS SUMMARY | 2024-05-14 11:53 | External Medical Summary | Summary of Care ---
Author Name Unknown Organization [facility] Address [address] [place] [address] Phone [phone] Care Team Providers Care Grease Rack Worker Name Role Phone Zackery Cochran DO Primary Care Provider + Reason for Visit * Auth/Cert Specialty Diagnoses / Procedures Referred By Jaleesa t Referred To Contact Diagnoses Mitral regurgitation Mitral regurgitation [I34.0] Procedures TRANSCATH REPAIR MITRAL VALVE, INITIAL TRANSCATHETER MITRAL VALVE REPAIR Shadi Patel MD [address] [place] [address] Phone: tel: fax: CRS Waiting [facility], Cardiac Recovery Suite Waiting Unit, [address] [place] [address] Phone: tel: Referral ID Status Reason Start Date Expiration Date Visits Re quested Visits Authorized [id number] Encounter Details Date Type Department Care Team (Latest Contact Info) Description 04/27/2024 11:07 AM EST - 04/27/2024 11:59 PM EST Hospital Encounter Cardiac Studies [facility] [address] [place] [address] Discharge Disposition: Home - Self Care Allergies Active Allergy Reactions Criticality Noted Date Comments Iodinated Contrast Media 03/14/2022 Contraindicated due to solitary kidney Iron Nausea/vomiting Low 02/03/2024 documented as of this encounter (statuses as of 04/28/2024) Medications AMOXICILLIN 500 MG PO CAPS takes [...] as of this encounter (statuses as of 04/28/2024) Active Problems Problem Noted Date Diagnosed Date S/P mitral valve clip implantation 04/27/2024 [employer] Confirmation Research Other*[id number] 08/28 OBESITY, BMI 30-34 (SEE ACTUAL BMI) [...] as of this encounter (statuses as of 04/28/2024) Resolved Problems Problem Noted Date Diagnosed Date Resolved Date PURE HYPERCHOLESTEROLEM 07/07/200202/27 Overview (03/13/2009): Per Lipid Taxonomy. Morbid obesity, BMI not known 07/07/2002 06/21/2009 Overview (06/21/2009): Per Obesity Taxonomy documented as of this encounter (statuses as of 04/28/2024) Social History Tobacco Use Types Packs/Day Years [...] on file documented as of this encounter Plan of Treatment Upcoming Encounters Date Type Department Care Team (Late st Contact Info) Description 2024 2:30 PM EST Office Visit Cardiology [facility] [address] [place] [address] Adriel Gautam, [facility] [address] [place] [address] 05/31/2024 3:00 PM EST Cardiac Studies Cardiac Studies, [facility] [address] [facility] [place] [address] 06/06/2024 1:30 PM EDT Laboratory Laboratory, [address] [place] [id number] JimenezCintia dyson [address] [place] [address] 06/06/2024 2:00 PM EDT Office Visit Cardiology, [facility] [address] [facility] [place] [address] Herlinda Venegas PA-C [address] [facility] [place] [address] Pending Results Name Type Priority Associated Diagnoses Date/Time TRANSESOPHAGEAL ECHO (COMPLETE) Echocardiology Routine Valvular heart disease 04/27/2024 11:07 AM EST Health Maintenance Due Date Last Done Comments Depression Screening 1952 Albumin/Creatinine Ratio 1960 DTap/Tdap Vaccines (1 - Tdap) 1961 COVID-19 Vaccine ( season) 2023 01/21/2023, 03/11/2022, 01/21/2021, Additional history exists GFR 10/26/2024 04/28/2024, 03/31, 04/27/2024, Additional history exists Zoster Vaccines Completed 03/30/2018, [...] this encounter Medical Devices Implanted Type Area At Risk Paraprofessional Device Identifier Shelf Expiration Date Model / Serial / Lot [employer] Sanjiv Implant System Implanted:Qty: 1 on 04/27/2024 by Shadi Patel MD at [facility] [employer] [id number] 11/23/[id number] / [id number] / [id number] [employer] Sanjiv Implant System Implanted:Qty: 1 on 04/27/2024 by Shadi Patel MD at [facility] [employer] [id number] 11/24/[id number] / [id number] / [id number] documented as of this encounter Advance Directives * Full Code (Latest Code Status on File) Date Activated Date Inactivated Comments 04/27/2024 12:33 PM This order re flects the patients wishes and were consensually agreed upon. Question Answer Comments Discussion of Advance Directives occurred with: Patient Care Teams Grease Rack Worker Relationship Specialty Start Date End Date Zackery Cochran DO [address] [place], [place] [address] [place] [address] PCP - General Family Medicine 04/20/24 documented as of this encounter
--- OUTSIDE RECORDS SUMMARY | 2024-05-14 11:53 | External Medical Summary ---
Author Name Unknown Address Unknown Organization K01:[facility] [address] [place] [address] Laboratory Report Ordering Provider Test Date Status JELANI MELENDEZ 04/27/2024 19:59:00 Final Observation Date Value Abnormality Reference (Units ) Status Magnesium 04/27/2024 19:59:00 2.3 1.5-2.6 (m g/dL) Final Performing Location [facility] - [address] [place] [address]
--- OUTSIDE RECORDS SUMMARY | 2024-05-14 11:53 | External Medical Summary ---
Author Name Unknown Address Unknown Organization K01:[facility] - [address] [place] [address] Laboratory Report Ordering Provider Test Date Status JELANI MELENDEZ 05/01/2024 09:30:00 Final Observation Date Value Abnormality Reference (Units ) Status Magnesium 05/01/2024 09:30:00 2.0 1.5-2.6 (m g/dL) Final Performing Location [facility] - [address] [place] [address]
--- OUTSIDE RECORDS SUMMARY | 2024-05-14 11:54 | External Medical Summary | Summary of Care ---
Author Name Unknown Organization [facility] Address [address] [place] [address] Phone [phone] Care Team Providers Care Telegraphic Instrument Supervisor Name Role Phone CochranZackery Primary Care Provider + Reason for Visit * Reason Comments Consultation Severe MR, pHTN Encounter Details Date Type Department Care Team (Late st Contact Info) Description 04/20/2024 8:30 AM EST Office Visit Cardiology, [facility] [address] [facility] [place] [id number] Shadi Patel MD [address] [place] [address] Nonrheumatic mitral valve regurgitation* Allergies Active Allergy Reactions Criticality Noted Date Comments Iodinated Contrast Media 03/14/2022 Contraindicated due to solitary kidney Iron Nausea/vomiting Low 02/03/2024 documented as of this encounter (statuses as of 04/20/2024) Medications AMOXICILLIN 500 MG PO CAPS takes before dental procedures Active Bumetanide 2 MG Tablet Take 1.5 Tablets by mouth in the morning. Active Cholecalcifero l (VITAMIN D3) 2000 UNITS [...] Tablet by mouth at bedtime. 3 Active Metoprolol Succinate ER 25 MG Oral Tablet Extended Release 24 Hour (toPROL XL) Take 3 Tablets by mouth at bedtime. 3 Active Calcitriol 0.25 MCG Oral Capsule (Rocaltrol) Take 2 Capsules by mouth in the morning. 2 Active metOLazone 5 MG Oral Tablet (Zaroxolyn) Take 1 Tablet by mouth as needed (weight gain). 3 Active Docusate Sodium 100 MG Oral Capsule [...] and 1 Tablet before bedtime. 4 Active CALCIUM-D 600-200 MG-UNIT PO CAPS once daily 0 7 04/20/19 25 Discontinu ed(Patient preference /discontin uation) Multiple Vitamin (MULTI VITAMIN MENS) Tablet 1 tablet daily 04/20/19 25 Discontinu ed(Patient preference /discontin uation) potassium citrate ER (UROCIT-K) 10 MEQ (1080 MG) TBCR Take 2 Tablets by mouth. 04/20/19 25 Discontinu ed(Patient preference /discontin uation) Eplerenone 25 MG Oral Tablet (Inspra) 1 Tablet. 2 04/20/19 25 Discontinu ed(Patient preference /discontin uation) Ferrous Gluconate 324 (38 Fe) MG Oral Tablet 04/20/19 25 Discontinu ed(Patient preference /discontin uation) DULoxetine HCl 20 MG Oral Capsule Delayed Release Particles (Cymbalta) 1 Capsule. 2 04/20/19 Discontinu ed(Patient preference /discontin uation) documented as of this encounter (statuses as of 04/20/2024) Active Problems Problem Noted Date Diagnosed Date [employer]MAN Confirmation Research Other*[id number] 08/28 OBESITY, BMI 30-34 (SEE ACTUAL BMI) 06/21/2009 Overview (06/21/2009): Per Obesity Taxonomy DYSLIPIDEMIA, GOAL LDL BELOW 100 03/13/2009 Overview (03/13/2009): Per Lipid Taxonomy. [...] as of this encounter (statuses as of 04/20/2024) Resolved Problems Problem Noted Date Diagnosed Date Resolved Date PURE HYPERCHOLESTEROLEM 07/07/200202/27 Overview (03/13/2009): Per Lipid Taxonomy. Morbid obesity, BMI not known 07/07/2002 06/21/2009 Overview (06/21/2009): Per Obesity Taxonomy documented as of this encounter (statuses as of 04/20/2024) Social History Tobacco Use Types Packs/Day Years Used Date Smoking Tobacco: Never Smokeless Tobacco: Never Tobacco Cessation:Counseling Given: Not Answered Alcohol Use Standard Drinks/Week Comments No 0 [...] Sign Reading Time Taken Comments Blood Pressure 112/68 04/20/2024 8:45 AM EST Pulse 116 04/20/2024 8:45 AM EST Temperature - - Respiratory Rate 20 04/20/2024 8:45 AM EST Oxygen Saturation 99% 04/20/2024 8:45 AM EST 3 LPM NC Inhaled Oxygen Concentration - - Weight 99.8 kg (220 lb) 04/20/2024 8:45 AM EST Height - - Body Mass Index 36.05 03/12/2015 12:12 PM EST documented in this encounter Progress Notes * Shadi Patel MD - 04/20/2024 9:47 AM EST I have reviewed the advanced practitioner's documentation on the date of service referenced in note, and I agree with, and take responsibility for the plan of care. 83 year old male with severe symptomatic MR Fatigue, SOBOE. Jan 2024--> no significant CAD. Bioprosthetic AVR 20 years ago at [facility] - peak velocity is 234 cm/s DIOGO showed 3+ MR with ruptured chords and partial anterior leaflet flail Moderate TR Creatinine: 2.4 Home O2. Surgical risk stratification and likely proceed to PRAFUL. Shadi Patel MD MPH Interventional Cardiology Pager: [phone] 04/20/24 9:59 AM * Herlinda Venegas PA-C - 04/20/2024 8:12 AM EST Images from the original note were not included. Cardiology Valve Clinic Note 04/20/2024 Primary Crossing Guard: [place] [facility] [place] by: Dr. Izquierdo [place] [facility] Cardiac Problems: Permanent atrial fibrillation s/p DCCV 12/2021 HFpEF Minimal CAD on cath 01/2024 Moderate to severe MR, partial flail, ruptured chordae on DIOGO 01/2024 Bioprosthetic AVR at [facility] CKD s/p L nephrectomy Iron deficiency anemia Severe pulmonary hypertension Chronic hypoxic respiratory failure on 3L oxygen FIFI on CPAP HPI: Kyler Antoine is a 83 year old male being [...] balance, No headaches and No weakness. Current Outpatient Medications Medication Sig Dispense Refill [...] No current facility-administered medications for this visit. Review of patient's allergies indicates: Allergen Reactions Iodinated Contrast Media Unknown No Known Drug Allergy Past Medical History: Diagnosis Date Aortic valve stenosis 12/29/2002 s/p AVR Aortocoronary bypass status Atrial fibrillation (HCC) post-op after CABG, paroxysmal Cardiomegaly on CXR Difficult Airway 04/04/2004 Dyslipidemia, goal LDL below 160 Hypercholesterolemia HTN, goal below 140/90 Hypertension Benign INFORMATION Morbid obesity INFORMATION Abnormal Adenosine Stress Technecium S/P aortic valve replacement Sleep apnea On CPAP for 5 years Past Surgical History: Procedure Laterality Date EGD, FLEXIBLE, DIAGNOSTIC 06/06/2013 ESOPHAGOGASTRODUODENOSCOPY (EGD), FLEXIBLE, TRANSORAL, DIAGNOSTIC performed by Braden Castellanos MD at [facility] GASTRIC BYPASS FOR OBESITY 04.27.2003 Lap RYGB, EGD, LLBX and adhesiolysis- INJECT DX/THER SUBSTANCE INTERLAMINAR CERVICAL/THORACIC W IMAGE GUIDE 07/28/2022 INJECTION SPINE LUMBAR CERVICAL OR THORACIC performed by Edwin Burrows, at OR [facility] ARTHROSCOPY, DIAGNOSTIC Knee Arthroscopy left REMOVAL OF LARGE STONE FROM KIDNEY via cysto.multiple--5 times REMOVE GALLBLADDER Cholecystectomy REMOVE LUMBAR SPINE LAMINA, 3+ SEGS 1991 HNP Excision REPLACEMENT AORTIC VALVE,NON-CORONARY SINUS 23 mm pericardial tissue valve UMBIL HERNIA REPAIR (INCARCERATED) AGE 5+YR Family History Problem Relation Name Age of [...] insight. DATA: Labs & Imaging Reviewed Below: DIOGO 02/05/2024 ([facility]) Echocardiogram 01/29/2024 ([facility]) Cardiac Catheterization 02/16/2024 ([facility]) IMPRESSION/PLAN: Nonrheumatic mitral valve regurgitation - moderate to severe mitral regurgitation with ruptured chordae and partial anterior flail leaflet,moderate TR per DIOGO 01/2024 - cardiac cath 01/2024 with minimal CAD - symptomatic, NYHA class III Please see Dr. Patel's note for further recommendations. Patient care was discussed/coordinated with Dr. Patel. The patient agrees to the above plan and will call with additional questions or concerns. All questions were answered to the patients satisfaction. ER with all emergencies advised. Herlinda Venegas PA-C Cardiology, [facility] [address] [facility] [place] [address] I spent a total of 50 minutes on the date of service in preparation, delivery, and documentation ofthe care provided to Kyler Antoine excluding any time spent in the performance of separately billed services. This chart was completed in part utilizing [employer] Speech Voice Recognition Software. Grammatical errors, random word insertions, prounoun errors, and incomplete sentences are an occasional consequence of this system due to software limitations, ambient noise, and hardware issues. Any formal questions or concerns about the content, text, or information contained within the body of this dictation should be directly addressed to the provider for clarification. documented in this encounter Nursing Notes * Zuly Hernandez CMA - 04/20/2024 8:38 AM EST Chief Complaint Patient presents with Consultation Severe Brady DENNEY Examination Room: 15 Name: Kyler Antoine Date of : (1940). Reason for Visit: Consult from [facility] Cardio Interim Hospitalization(s): [facility] last fall, winter; [facility] Problems/Concerns: Frequent palpitations, elevated HRs with afib. Swelling in feet up to knees, baseline today. Chest Pain/SOB: Some increased SOBOE, on O2 24/7. No issues at rest or laying. [facility] Discussed: Not applicable My [facility] is a way you can talk to your provider online through e-mail. Would you like to sign up? I can activate it for you? ALREADY ACTIVE Patient was instructed to not get up on the exam table until directed and assisted by their provider; patient is to remain seated in the chair/ wheelchair/ exam table for fall prevention and safety reasons. Patient is aware to have assistance to step down off exam table with personnel. Patient voiced full comprehension of instructions. documented in this encounter Plan of Treatment Upcoming Encounters Date Type Department Care Team (Late st Contact Info) Description 04/21/2024 11:00 AM EST Office Visit Cardiothoracic Surg [facility] [address] [place] [address] Levi Gutierrez MD [address] [place] [address] Health Maintenance Due Date Last Done Comments Depression Screening 1952 Albumin/Creatinine Ratio 1960 DTap/Tdap Vaccines (1 - Tdap) 1961 COVID-19 Vaccine ( season) 2023 01/21/2023, 03/11/2022, 01/21/2021, Additional history exists GFR 02/26/2025 02/27/2024, 01/29, 02/23/2024, Additional history exists Zoster Vaccines Completed 03/30/2018, [...] documented as of this encounter Medical Devices Not on filedocumented as of this encounter Visit Diagnoses Diagnosis Nonrheumatic mitral valve regurgitation- Primary documented in this encounter Care Teams Telegraphic Instrument Supervisor Relationship Specialty Start Date End Date Zackery Cochran DO [address] [place] [id number] PCP - General Family Medicine 04/20/24 documented as of this encounter"
--- OUTSIDE RECORDS SUMMARY | 2024-05-14 11:54 | External Medical Summary ---
Author Name Unknown Address Unknown Organization : Laboratory Report Ordering Provider Test Date Status CARMELITA ROBERTSON 04/27/2024 09:42:45 Final NORMAL (NON-HEPARINIZED) 74- 137 SECONDS
HEPARINIZED 200+ SECONDS
CRITICAL GREATER THAN 1000 SECONDS
null Observation Date Value Abnormality Reference (Units ) Status Kaolin activated time [Units/volume] in Blood 04/27/2024 09:42:45 216 50-1000 (secs) Final Performing Location
--- OUTSIDE RECORDS SUMMARY | 2024-05-14 11:54 | External Medical Summary | Summary of Care ---
Author Name Unknown Organization [facility] Address [address] [place] [address] Phone [phone] Care Team Providers Care Vallez Filter Operator Name Role Phone Unavailable Primary Care Provider Unavailabl e Encounter Details Date Type Department Care Team (Late st Contact Info) Description 04/19/2024 Documentation Cardiology [facility] [address] [place], [place] [id number] Debbie Dempsey, RN Allergies Active Allergy Reactions Criticality Noted Date Comments Iodinated Contrast Media Unknown 03/14/2022 No Known Drug Allergy 07/07/2002 documented as of this encounter (statuses as of 04/19/2024) Medications CALCIUM-D 600-200 MG-UNIT PO CAPS once daily 0 7 Active AMOXICILLIN 500 MG PO CAPS takes before dental procedures Active Multiple Vitamin (MULTI VITAMIN MENS) Tablet 1 tablet daily Activ e Bumetanide 2 MG Tablet Take 1 Tablet by mouth in the morning. Active Cholecalciferol (VITAMIN D3) 2000 UNITS Capsule Take 1 Capsule by mouth in the morning. Active potassium citrate ER (UROCIT-K) 10 MEQ (1080 MG) TBCR Take 2 Tablets by mouth. Active allopurinol (ZYLOPRIM) 100 MG Tablet Take 1 Tablet by mouth in the morning. Active traMADol (ULTRAM) 50 MG Tablet Take 1 Tablet by mouth every 6 hours as needed for Pain. Active Eplerenone 25 MG Oral Tablet (Inspra) 1 Tablet. 2 Active Xarelto 15 MG Oral Tablet Take 1 Tablet by mouth in the morning. 3 Active Metoprolol Succinate ER 50 MG Oral Tablet Extended Release 24 Hour (toPROL XL) Take 1 Tablet by mouth in the morning and 1 Tablet before bedtime. 3 Active Calcitriol 0.25 MCG Oral Capsule (Rocaltrol) DAILY IN THE MORNING 2 Active metOLazone 5 MG Oral Tablet (Zaroxolyn) take 1 tablet by mouth once daily as directed if needed for WEIGHT GAIN 3 Active Ferrous Gluconate 324 (38 Fe) MG Oral Tablet Active DULoxetine HCl 20 MG Oral Capsule Delayed Release Particles (Cymbalta) 1 Capsule. 2 Active Docusate Sodium 100 MG Oral Capsule Take 1 Capsule by mouth. Active documented as of this encounter (statuses as of 04/19/2024) Active Problems Problem Noted Date Diagnosed Date [employer]MAN Confirmation Research Other*[id number] 08/28 OBESITY, BMI 30-34 (SEE ACTUAL BMI) [...] as of this encounter (statuses as of 04/19/2024) Resolved Problems Problem Noted Date Diagnosed Date Resolved Date PURE HYPERCHOLESTEROLEM 07/07/200202/27 Overview (03/13/2009): Per Lipid Taxonomy. Morbid obesity, BMI not known 07/07/2002 06/21/2009 Overview (06/21/2009): Per Obesity Taxonomy documented as of this encounter (statuses as of 04/19/2024) Social History Tobacco Use Types Packs/Day Years [...] on file documented as of this encounter Progress Notes * Debbie Dempsey, RN - 04/19/2024 8:29 AM EST Images from the original note were not included. Risk Factors: Severe MR, Severe pHTN, HFpEF, CKD (s/p nephrectomy), Cr2.1, anemia, permanent afib, FIFI, Class III obesity [facility] Interventional Valve Nurse Navigator documented in this encounter Plan of Treatment Upcoming Encounters Date Type Department Care Team (Late st Contact Info) Description 04/20/2024 8:30 AM EST Office Visit Cardiology, [facility] [address] [place] [address] Shadi Patel MD [address] [place] [address] Health Maintenance Due Date Last Done Comments Depression Screening 1954 Albumin/Creatinine Ratio 1960 DTap/Tdap Vaccines (1 - Tdap) 1961 COVID-19 Vaccine ( - season) 2023 01/21/2023, 03/11/2022, 01/21/2021, Additional history [...]
--- OUTSIDE RECORDS SUMMARY | 2024-05-14 11:54 | External Medical Summary | Summary of Care ---
Author Name Unknown Organization [facility] Address [address] [place] [address] Phone [phone] Care Team Providers Care Media Production Support Manager Name Role Phone DimasZackery Ren GIL Primary Care Provider + Reason for Visit * Reason Comments NEW PATIENT Encounter Details Date Type Department Care Team (Late st Contact Info) Description 04/21/2024 11:00 AM EST Office Visit Cardiothoracic Surg [facility] [address] [place], [place] [id number] Levi Gutierrez MD [address] [place] [address] Non-rheumatic mitral regurgitation* Allergies Active Allergy Reactions Criticality Noted Date Comments Iodinated Contrast Media 03/14/2022 Contraindicated due to solitary kidney Iron Nausea/vomiting Low 02/03/2024 documented as of this encounter (statuses as of 04/22/2024) Medications AMOXICILLIN 500 MG PO CAPS takes before dental procedures Active Bumetanide 2 MG Tablet Take 1.5 Tablets by mouth in the morning. Active Cholecalciferol [...] and 1 Tablet before bedtime. 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 Morbid obesity, BMI not known 07/07/2002 06/21/2009 Overview (06/21/2009): Per Obesity Taxonomy documented as of this encounter (statuses as of 04/22/2024) Social History Tobacco Use Types Packs/Day Years [...] Sign Reading Time Taken Comments Blood Pressure 110/70 04/21/2024 11:01 AM EST Pulse 82 04/21/2024 10:59 AM EST Temperature - - Respiratory Rate - - Oxygen Saturation 99% 04/21/2024 10:59 AM EST Inhaled Oxygen Concentration - - Weight 102.3 kg (225 lb 8 oz) 04/21/2024 10:59 A M EST Height 167.6 cm (5' 6") 04/21/2024 10:59 AM EST Body Mass Index 36.4 04/21/2024 10:59 AM EST documented in this encounter Progress Notes * Levi Gutierrez MD - 04/21/2024 11:33 AM EST CARDIAC SURGERY I have seen and examined the patient with Connor. I am seeing Kyler Antoine as an evaluation for mitral regurgitation, referred by Dr. Patel. In January he had bacteremia but no evidence of endocarditis, admitted for heart failure. 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 PE demonstrates systolic murmur, clear lungs. STS risk is 16% for mortality for MVR. 02/05/24 DIOGO reviewed, which demonstrates -- severe posteriorly directed MR, anterior leaflet prolapse 02/16/24 Cardiac cath images reviewed, shows no obstructive CAD IMPRESSION Kyler Antoine has severe mitral regurgitation with symptoms and heart failure. We discussed the risks and benefits of both surgical and transcatheter mitral valve intervention We discussed that complication rate is much higher with surgery due to comorbid conditions, but surgical intervention hasvery high freedom from recurrent mitral regurgitation. We also discussed that if surgical risk was below 10%, surgery would recommended, due to concerns about future options in the setting of a failing PRAFUL. The recurrence rate of MR with transcatheter edge to edge repair (PRAFUL) is around 50% within 2-3 years in current trials. Recovery is much faster with PRAFUL if there are no complications, and major complication rate is much lower. His surgical risk is prohibitive. The patient expressed understanding and prefers to proceed with PRAFUL. The following people were present for the discussion: his . We discussed that if a periprocedural catastrophe happens that requires open heart surgery, this would be futile given his condition and we would not recommend that.He and his are in agreement. Levi Gutierrez M.D. Associate, Thoracic [place] [address] Office [phone] documented in this encounter Plan of Treatment Health Maintenance Due Date Last Done Comments Depression Screening 1954 Albumin/Creatinine Ratio 1960 DTap/Tdap Vaccines (1 - Tdap) 1961 COVID-19 Vaccine (2023- season) 2023 01/21/2023, 03/11/2022, 01/21/2021, Additional history [...] as of this encounter Visit Diagnoses Diagnosis Non-rheumatic mitral regurgitation- Primary Mitral valve disorders documented in this encounter Care Teams Media Production Support Manager Relationship Specialty Start Date End Date Zackery Cochran DO [address] [place] [address] [place] [address] PCP - General Family Medicine 04/20/24 documented as of this encounter
--- NOTE | 2024-05-14 12:27 | Emergency Department Note ---
Impression & Plan Acute GI bleeding, Anemia, Hypotension, Anticoagulated, CRF (chronic renal failure) ED Provider Note NAME: MYESHA TRAN Jr AGE: 84 SEX: M : 1940 ARRIVES VIA: Walk-In INFORMANT: [Patient] ED PROVIDER(S): [Vargas Fernandez MD] CHIEF COMPLAINT: Rectal bleeding HISTORY OF PRESENT ILLNESS: Patient is an 84-year-old male who states that the last 5 times he has moved his bowels, he has had diarrhea and bloody, dark stool. He had some right lower quadrant abdominal pain for a very brief time but this has resolved. He does admit that he fell onto his bed 2 days ago, the cane he was using fell on the bed and was underneath him. He has 2 small abdominal wall contusions from the cane. The patient is on Xarelto and aspirin. He cannot recall ever having a source for GI bleeding. He has had some constipation issues in the past though. He has not had any fever, no nausea or vomiting. No sick contacts. His is at bedside and states that there was a significant amount of blood in the toilet. PMHx/PSHx/Social Hx: See Below PHYSICAL EXAM: GENERAL: Patient is in no acute distress. HEENT: No acute trauma, normocephalic atraumatic, mucous membranes moist, no nasal congestion. NECK: No stridor, no adenopathy, no meningismus, trachea is midline. LUNGS: Clear to auscultation bilaterally when listening anterior, no wheeze, no rhonchi, breath sounds equal. HEART: Irregular rhythm with a normal rate. There is a 2/6 systolic murmur. ABDOMEN: Soft, nontender, no peritonitis. There are 2 smaller circular contusions along the right abdominal wall which appear older. These areas are not tender. EXTREMITIES: No cyanosis, full range of motion of all the joints without pain or difficulty. Mild bilateral pedal edema NEUROLOGIC: Oriented x 3, no acute motor or sensory deficits, no focal weakness. SKIN: No jaundice, no diaphoresis. Rectal: His stool is maroon in color. There is no external source for bleeding. Heme positive stool by Hemoccult. DIFFERENTIAL DIAGNOSIS: Upper or lower GI bleeding, coagulopathy, anemia, colitis, intra-abdominal hematoma, among others. EMERGENCY DEPARTMENT PROCEDURES: MEDICAL DECISION MAKING: There is no leukocytosis. The patient was anemic with a hemoglobin of 8.4. The hemoglobin dropped to 7.6 with about 2 hours of time passage. There was a normal platelet count. No coagulopathy by our testing. There was evidence for some chronic renal failure but, his value was stable looking back at previous testing. There was no concerning liver enzyme elevation. ECG showed atrial fibrillation, no obvious ischemia. Cardiac enzyme testing x 1 was slightly elevated. This troponin elevation could be secondary to cardiac injury or just mismatch from his GI bleeding. Stool was tested and positive for blood. Stool culture was negative. Abdominal and pelvis CT did not show any acute traumatic findings. Chest film showed some cardiomegaly, no CHF. On exam, the patient had maroon-colored stool. He did become somewhat hypotensive with a blood pressure of 90s systolic while here in the ED. The patient was aggressively managed given his presentation and findings. He did receive a liter of IV saline for hydration. He was given IV Protonix and IV Pepcid. I did speak with our coagulation professional benefits sales consultant. Patient received IV Kcentra to hopefully reverse his Xarelto anticoagulation. Patient's blood pressure does appear improved. He very likely will need a packed red blood cell transfusion. He will require further resuscitation and a GI consult. The patient's aware of his findings and the need for hospital stay. He currently seems to be resting fairly comfortably. I spoke with case management, the on-call hospitalist was consulted. Prior/Outside records/notes reviewed: None ECG per my interpretation: Indication was GI bleeding. The ECG shows atrial fibrillation with a rate of 87. There is diffuse artifact seen. There is some nonspecific ST change. No ST elevation, no PVCs. The QTc was 466. Continuous Cardiac Monitoring per my interpretation: An order was placed for continuous cardiac monitoring. The monitor shows a rate of 85 with atrial fibrillation. Imaging/x-ray results per my interpretation: Chest x-ray showed cardiomegaly, no CHF. Chronic Medical/Social conditions affecting care: Advanced age, Xarelto use. Care/Management discussed with: Case management, the on-call hospitalist. Coagulation professional benefits sales consultant-Dr. Allen. Level of care consideration(s): After review of the information above and other included data: --I believe the patient requires escalation of care to admission Critical Care Note: I have personally spent 46 minutes of critical care time in the direct management of this patient. This includes bedside care, interpretation of diagnostic studies, and testing, discussion with consultants, patient, and family members, and other required patient management activities. This 46 minutes is in excess of all separately billable procedures. DISPOSITION: Admission Past Med/Surg History Problem List (Updated 05/14/24 @ 16:20 by Vargas Fernandez MD) CRF (chronic renal failure) (Acute) Anticoagulated (Acute) Hypotension (Acute) Anemia (Acute) Acute GI bleeding (Acute) Hypovolemic shock Acute gastrointestinal bleeding Atrial fibrillation Rectal bleed Atrial fibrillation with RVR (Acute) Permanent atrial fibrillation with RVR Chest pain Acute respiratory failure with hypoxia (Acute) Acute on chronic diastolic CHF (congestive heart failure) Excessive attrition of teeth, extending into dentine Hip pain, right Hypokalemia Bacteremia Thrombocytopenia (Acute) Fall (Acute) Sepsis (Acute) Abnormal CT of the abdomen Sepsis Chronic anemia Iron deficiency Traumatic open wound of left lower leg with delayed healing (Acute) Lower extremity edema Decreased calculated glomerular filtration rate (GFR) Secondary hyperparathyroidism History of aortic valve disease s/p AVR (2006) History of renal cell carcinoma Hypokalemia Chronic venous insufficiency (Chronic) Traumatic open wound of right lower leg (Acute) Wound of right leg Class 3 severe obesity due to excess calories with body mass index (BMI) of 40.0 to 44.9 in adult Gynecomastia, male Family history of breast cancer gene mutation in first degree relative Hx of gynecomastia Left breast lump Nocturnal hypoxemia Complex sleep apnea syndrome Chronic kidney disease, stage 4 (severe) (Chronic) Hypertension (Chronic) Shortness of breath Acute diastolic (congestive) heart failure Hypermagnesemia Arm pain Hand numbness Foraminal stenosis of cervical region Vitamin D deficiency Anxiety (Acute) Venous insufficiency (chronic) (peripheral) Morbid obesity with BMI of 40.0-44.9, adult Gout Microcytic anemia Chronic low back pain with right-sided sciatica B12 deficiency Chronic diastolic CHF (congestive heart failure) (Chronic) Hyperlipidemia (Chronic) Medical History Congestive heart failure Chronic dental pain Hypotension Chronic renal insufficiency, stage IV (severe) Iron deficiency anemia Obstructive sleep apnea BIPAP Diabetes mellitus Aspiration into respiratory tract Acute kidney injury superimposed on CKD Morbid obesity History of anxiety Hx of gout Hx of rotator cuff tear Difficulty with raising arms without extreme pain, currently in PT Hx of osteoarthritis Hx of impacted cerumen History of COVID-19 01/2021 > "mild" cold symptoms, resolved Prediabetes Kidney stones Hx x7 Renal cell adenocarcinoma s/p nephrectomy Chronic kidney disease, stage III (moderate) CKD (chronic kidney disease), stage III Surgical History H/O aortic valve replacement Hx of cardiac catheterization History of total bilateral knee replacement History of esophagogastroduodenoscopy (EGD) Hx of colonoscopy Hx of tonsillectomy Hx of cystoscopy History of left nephrectomy History of spinal surgery Aortic valve replaced History of gastric bypass History of cholecystectomy Family History Mother Breast cancer Lung disease Grandmother (Maternal) Breast cancer Aunt Breast cancer Sister Breast cancer Father Myocardial infarction Arthritis Denies family history of Ovarian cancer Prostate cancer Colorectal cancer Social History Smoking Status: Never smoker Second Hand Exposure: No; Do You Dip or Chew Tobacco: No; Hx Alcohol Use: No Hx Substance Use: No Preferred Language: Amharic Communication Ability: Effective Visual Impairment: No Limitations Hearing Ability: Normal 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 Machine Operator Required: No Beliefs That Will Affect Care: None marital status: Current Living Situation: Rehab Current Living Situation Comment: Lives w/ , son lives in basement current occupational status: retired 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[employer] Feels Safe at Home: Yes Childhood Exposure to Second-Hand Smoke: Yes Diet: regular caffeine: Yes Dental Care, Regularly: Yes Physical Activity Frequency: Does not Exercise Physical Activity Frequency Comment: Physical activity limited due to medical conditions Seatbelt Use: always Sunscreen Use: No Do you think of yourself as: straight/heterosexual Gender Identity: Male Assistive Devices: Walker Allergies Allergies Allergy/AdvReac Type Severity Reaction Status Date / Time iron [From Venofer] AdvReac Mild Vomiting Verified 04/14/24 08:57 Iodinated Contrast Media AdvReac Unknown PT ONLY Verified 04/14/24 08:57 [Iodinated Contrast- Oral HAS 1 and IV Dye] KIDNEY, CONTRAINDICATED. Home Meds Home Medications Medication Instructions Recorded Confirmed amoxicillin 500 mg tablet 2,000 mg PO DIRECTED PRN 1 HOUR 11/16/18 05/14/24 PRIOR TO DENTAL PROCEDURES cholecalciferol (vitamin D3) 50 50 mcg PO DAILY 07/10/22 05/14/24 mcg (2,000 unit) capsule (Vitamin D3) magnesium 250 mg tablet 250 mg PO HS 07/10/22 05/14/24 tamoxifen 20 mg tablet 20 mg PO QAM 12/22/23 05/14/24 allopurinol 100 mg tablet 50 mg PO QAM 03/03/24 05/14/24 aspirin 81 mg chewable tablet 81 mg PO DAILY 05/13/24 05/14/24 cyclobenzaprine 5 mg tablet 5 mg PO BID PRN muscle 05/13/24 05/14/24 pain/stiffness metoprolol succinate 100 mg 100 mg PO BID 05/13/24 05/14/24 tablet,extended release 24 hr (Toprol XL) potassium chloride 10 mEq 20 meq PO BID 05/13/24 05/14/24 capsule,extended release torsemide 100 mg tablet 100 mg PO BID 05/13/24 05/14/24 Previous Rx's Medication Instructions Recorded cyanocobalamin (vitamin B-12) 1,000 mcg IM Q90D #30 mL 09/23/22 1,000 mcg/mL injection solution metolazone 5 mg tablet 5 mg PO DAILY PRN weight gain #30 10/23/22 tabs Portable Oxygen #1 ea 05/25/23 docusate sodium 100 mg capsule 100 mg PO DAILY PRN constipation 02/08/24 #0 caps calcitriol 0.25 mcg capsule 0.5 mcg (2 x 0.25 mcg) PO QAM #180 04/01/24 caps rivaroxaban 15 mg tablet 15 mg PO HS #90 tabs 04/01/24 tramadol 50 mg tablet 50 mg PO BID PRN Pain #60 tabs 04/01/24 midodrine 10 mg tablet 10 mg PO TID@0800,1200,1700 #270 04/04/24 tabs Results & Data (ED) Vital Signs Vital Signs - 24 hr 05/14/24 11:47 05/14/24 12:27 05/14/24 12:28 Temperature 36.2 C L Temperature Source Temporal Artery Scan Pulse Rate 85 88 92 H Pulse Rate [Apical] Pulse Rate from SpO2 Sensor Respiratory Rate 18 33 H Respiratory Effort / Characteristics Non-Labored Spontaneous Respiratory Depth Normal Respiratory Pattern Regular Blood Pressure 145/90 H Blood Pressure [Right Arm] Blood Pressure Mean 108 Blood Pressure Mean [Right Arm] Pulse Oximetry 100 Oxygen Delivery Method Room Air Sepsis Recent Fever Within 48 Hours No Sepsis New/Unexplained Change in Mental Status N/A Sepsis Action Taken by Nursing No Action Required 05/14/24 12:30 05/14/24 12:43 05/14/24 12:51 Temperature Temperature Source Pulse Rate 92 H Pulse Rate [Apical] Pulse Rate from SpO2 Sensor Respiratory Rate 36 H 29 H Respiratory Effort / Characteristics Respiratory Depth Respiratory Pattern Blood Pressure Blood Pressure [Right Arm] Blood Pressure Mean Blood Pressure Mean [Right Arm] Pulse Oximetry 95 Oxygen Delivery Method Room Air Sepsis Recent Fever Within 48 Hours Sepsis New/Unexplained Change in Mental Status Sepsis Action Taken by Nursing 05/14/24 12:54 05/14/24 13:00 05/14/24 13:01 Temperature Temperature Source Pulse Rate 98 H Pulse Rate [Apical] Pulse Rate from SpO2 Sensor Respiratory Rate 23 Respiratory Effort / Characteristics Respiratory Depth Respiratory Pattern Blood Pressure 91/56 L 93/44 L Blood Pressure [Right Arm] Blood Pressure Mean 60 62 Blood Pressure Mean [Right Arm] Pulse Oximetry Oxygen Delivery Method Sepsis Recent Fever Within 48 Hours Sepsis New/Unexplained Change in Mental Status Sepsis Action Taken by Nursing 05/14/24 13:30 05/14/24 13:30 05/14/24 13:30 Temperature Temperature Source Pulse Rate 83 Pulse Rate [Apical] Pulse Rate from SpO2 Sensor 161 H Respiratory Rate 21 Respiratory Effort / Characteristics Respiratory Depth Respiratory Pattern Blood Pressure 86/57 L 86/57 L Blood Pressure [Right Arm] Blood Pressure Mean 62 62 Blood Pressure Mean [Right Arm] Pulse Oximetry 67 L Oxygen Delivery Method Sepsis Recent Fever Within 48 Hours Sepsis New/Unexplained Change in Mental Status Sepsis Action Taken by Nursing 05/14/24 13:42 05/14/24 13:45 05/14/24 13:45 Temperature Temperature Source Pulse Rate 89 Pulse Rate [Apical] Pulse Rate from SpO2 Sensor 270 H Respiratory Rate 25 H Respiratory Effort / Characteristics Respiratory Depth Respiratory Pattern Blood Pressure 103/70 103/70 Blood Pressure [Right Arm] Blood Pressure Mean 72 72 Blood Pressure Mean [Right Arm] Pulse Oximetry 51 L Oxygen Delivery Method Sepsis Recent Fever Within 48 Hours Sepsis New/Unexplained Change in Mental Status Sepsis Action Taken by Nursing 05/14/24 15:00 05/14/24 16:05 Temperature 36.8 C Temperature Source Oral Pulse Rate 94 H Pulse Rate [Apical] 91 H Pulse Rate from SpO2 Sensor Respiratory Rate 22 18 Respiratory Effort / Characteristics Non-Labored Spontaneous Respiratory Depth Normal Respiratory Pattern Blood Pressure 100/57 L Blood Pressure [Right Arm] 78/55 L Blood Pressure Mean 71 Blood Pressure Mean [Right Arm] 62 Pulse Oximetry 95 100 Oxygen Delivery Method Room Air Sepsis Recent Fever Within 48 Hours Sepsis New/Unexplained Change in Mental Status Sepsis Action Taken by [facility] Medications Current Medication List: was personally reviewed by me Laboratory Data Attestation: I reviewed the patient's lab results. 05/14/24 14:10 05/14/24 12:06 Lab Results 05/14/24 05/14/24 05/14/24 Range/Units 12:06 13:22 13:25 WBC 9.82 (4.8-10.8) K/ul RBC 3.33 L (4.70-6.10) M/uL Hgb 8.4 L (14.0-18.0) g/dl Hct 27.3 L (42.0-52.0) % MCV 82.0 (80.0-100.0) fL MCH 25.2 (25.0-34.0) pg MCHC 30.8 L (32.0-36.0) g/dL RDW Std Deviation 52.7 H (36.4-46.3) fL RDW Coeff of Sarah 17.7 H (11.5-14.5) % Plt Count 194 (130-400) K/uL MPV 10.1 (9.4-12.4) fL PT 11.8 (9.0-12.0) Seconds INR 1.1 (0.9-1.1) APTT 26 (21-31) Seconds PTT Ratio 1.0 Sodium 140 (136-145) mmol/L Potassium 4.5 (3.5-5.1) mmol/L Chloride 104 (98-107) mmol/L Carbon Dioxide 26 (21-32) mmol/L Anion Gap 10 (3-11) BUN 82 H (6-23) mg/dl Creatinine 2.52 H (0.6-1.4) mg/dl Est Cr Clr Drug Dosing Not Reportable eGFR 24.79 BUN/Creatinine Ratio 32.5 H (10-20) Glucose 91 (70-99(Fasting)) mg/dl Calcium 9.6 (8.6-10.3) mg/dl Magnesium 2.5 H (1.7-2.4) mg/dl Total Bilirubin 0.7 (0.2-1.0) mg/dl AST 36 (13-39) U/L ALT 26 (7-52) U/L Alkaline Phosphatase 57 (34-104) U/L Troponin I High Sens 20.1 H (0-20) pg/ml Total Protein 6.1 (6.0-8.3) gm/dl Albumin 3.2 L (3.4-5.0) gm/dl Globulin 2.9 (2.5-4.0) gm/dl Albumin/Globulin Ratio 1.1 (0.9-2) POC Stool Occult Blood Positive A (Negative) Stl C. cayetanensis PCR Not Detected (NotDetected) Stool Rotavirus A PCR Not Detected (NotDetected) Stl Adenov F 40/41 PCR Not Detected (NotDetected) Stool Astrovirus (PCR) Not Detected (NotDetected) Stool Campylobacter PCR Not Detected (NotDetected) Stool Cryptosporidium PCR Not Detected (NotDetected) Stl E.coli Shiga Tox PCR Not Detected (NotDetected) Stl Enterotoxigenic E PCR Not Detected (NotDetected) Stool EPEC (PCR) Not Detected (NotDetected) Stool EAEC (PCR) Not Detected (NotDetected) Stl E. histolytica PCR Not Detected (NotDetected) Stool Giardia Lamblia PCR Not Detected (NotDetected) Stool Salmonella PCR Not Detected (NotDetected) Stool Sapovirus (PCR) Not Detected (NotDetected) Stl P. shigelloides PCR Not Detected (NotDetected) Stl Shigella/EIEC PCR Not Detected (NotDetected) St Y.enterocolitica PCR Not Detected (NotDetected) Stool Vibrio (PCR) Not Detected (NotDetected) Stl Vibrio cholerae PCR Not Detected (NotDetected) Stl Norovirus GI/GII PCR Not Detected (NotDetected) Blood Type O Positive Blood Type Recheck Antibody Screen NEGATIVE Crossmatch See Detail 02/15/25 02/15/25 Range/Units 14:10 15:01 WBC (4.8-10.8) K/ul RBC (4.70-6.10) M/uL Hgb 7.6 L (14.0-18.0) g/dl Hct 24.9 L (42.0-52.0) % MCV (80.0-100.0) fL MCH (25.0-34.0) pg MCHC (32.0-36.0) g/dL RDW Std Deviation (36.4-46.3) fL RDW Coeff of Sarah (11.5-14.5) % Plt Count (130-400) K/uL MPV (9.4-12.4) fL PT (9.0-12.0) Seconds INR (0.9-1.1) APTT (21-31) Seconds PTT Ratio Sodium (136-145) mmol/L Potassium (3.5-5.1) mmol/L Chloride (98-107) mmol/L Carbon Dioxide (21-32) mmol/L Anion Gap (3-11) BUN (6-23) mg/dl Creatinine (0.6-1.4) mg/dl Est Cr Clr Drug Dosing eGFR BUN/Creatinine Ratio (10-20) Glucose (70-99(Fasting)) mg/dl Calcium (8.6-10.3) mg/dl Magnesium (1.7-2.4) mg/dl Total Bilirubin (0.2-1.0) mg/dl AST (13-39) U/L ALT (7-52) U/L Alkaline Phosphatase (34-104) U/L Troponin I High Sens (0-20) pg/ml Total Protein (6.0-8.3) gm/dl Albumin (3.4-5.0) gm/dl Globulin (2.5-4.0) gm/dl Albumin/Globulin Ratio (0.9-2) POC Stool Occult Blood (Negative) Stl C. cayetanensis PCR (NotDetected) Stool Rotavirus A PCR (NotDetected) Stl Adenov F 40/41 PCR (NotDetected) Stool Astrovirus (PCR) (NotDetected) Stool Campylobacter PCR (NotDetected) Stool Cryptosporidium PCR (NotDetected) Stl E.coli Shiga Tox PCR (NotDetected) Stl Enterotoxigenic E PCR (NotDetected) Stool EPEC (PCR) (NotDetected) Stool EAEC (PCR) (NotDetected) Stl E. histolytica PCR (NotDetected) Stool Giardia Lamblia PCR (NotDetected) Stool Salmonella PCR (NotDetected) Stool Sapovirus (PCR) (NotDetected) Stl P. shigelloides PCR (NotDetected) Stl Shigella/EIEC PCR (NotDetected) St Y.enterocolitica PCR (NotDetected) Stool Vibrio (PCR) (NotDetected) Stl Vibrio cholerae PCR (NotDetected) Stl Norovirus GI/GII PCR (NotDetected) Blood Type Blood Type Recheck O Positive Antibody Screen Crossmatch Administered Medications Discontinued Medications Sodium Chloride (Nss) 500 mls @ 999 mls/hr IV .Q31M ONE Stop: 05/14/24 12:55 Last Infusion: 05/14/24 13:13 Dose: Infused Documented By: Admin: 05/14/24 12:35 Dose: 999 mls/hr Documented By: AM Pantoprazole Sodium 80 mg/ (Dextrose) 120 mls @ 400 mls/hr IV NOW ONE Stop: 05/14/24 12:42 Last Infusion: 05/14/24 13:13 Dose: Infused Documented By: Admin: 05/14/24 12:50 Dose: 400 mls/hr Documented By: ERNESTINE Famotidine (Pepcid 20mg Iv Push) 20 mg in 5 mls @ 2.5 mls/min IV NOW STA Stop: 05/14/24 12:26 Last Admin: 05/14/24 12:35 Dose: 2.5 mls/min Documented By: AM Prothrombin Complex Concent ( (Human) 2,000 units/ Syringe) 80 mls @ 10 mls/min IV NOW ONE; Protocol Stop: 05/14/24 13:22 Last Admin: 05/14/24 13:51 Dose: 10 mls/min Documented By: AM Imaging Data Radiologist's Impression: Abdomen/Pelvis CT 05/14/24 12:27 CT OF THE ABDOMEN AND PELVIS WITHOUT CONTRAST CLINICAL HISTORY: bloody stool, 1 kidney, xarelto COMPARISON STUDY: CT of the abdomen and pelvis January 27, 2024. TECHNIQUE: Axial images of the abdomen and pelvis were obtained without IV contrast. Images were reviewed in the axial, sagittal, and coronal planes. Automated exposure control was utilized for the study. A dose lowering technique was utilized adhering to the principles of ALARA. FINDINGS: No pneumatosis, free air or portal venous gas is present. There is no evidence for a bowel obstruction status post Juan-en-Y gastric bypass. There is no biliary ductal dilatation status post cholecystectomy. Hypodense hepatic lesions are unchanged and favor cysts. Spleen and adrenal glands are unremarkable. Left kidney is surgically absent. A 1.4 cm hyperdense nodule adjacent to the lower pole of the right kidney is unchanged. This could represent a proteinaceous cyst or less likely a small solid renal lesion. There is no lymphadenopathy. Slight prominence of the right collecting system without hydronephrosis. No bowel wall thickening is identified on unenhanced exam. This colonic diverticulosis without evidence for acute diverticulitis. No bowel wall thickening is identified on unenhanced study. The appendix is normal. IMPRESSION: 1. No acute process within the abdomen or pelvis on unenhanced exam. 2. Colonic diverticulosis. No evidence for acute diverticulitis. No bowel obstruction. No bowel wall thickening on unenhanced exam. 3. Status post Juan-en-Y gastric bypass. 4. No abnormality within the left nephrectomy bed. ACT 112: Negative or not required by law. Electronically signed by: Eddy Bashir M.D. 05/14/2024 1:08 PM Chest X-Ray 05/14/24 13:09 HISTORY: GI bleed. TECHNIQUE: Portable AP radiographs of the chest. COMPARISON: None. FINDINGS: No focal lung consolidation. No pneumothorax or pleural effusion. Cardiomegaly is mild. Postsurgical changes of median sternotomy. Left-sided aortic arch. Midline trachea. No acute osseous abnormality. Right upper quadrant surgical clips consistent with cholecystectomy. IMPRESSION: 1. No acute cardiopulmonary findings. 2. Mild cardiomegaly. Electronically signed by Sumeet Hanson 05-14-2024 2:14 PM Discharge Plan Visit Data Chief Complaint: Rectal Bleed Stated Complaint: RECTAL BLEED, HEART SURG/RECENT ED Provider: Vargas Fernandez Discharge Problem: Acute GI bleeding, Anemia, Hypotension, Anticoagulated, CRF (chronic renal failure) Patient Disposition: Admitted As Inpatient Condition: Serious Forms Stand Alone Forms: My [facility] Prescriptions Prescriptions: No Action cyanocobalamin (vitamin B-12) 1,000 mcg/mL solution 1,000 mcg IM Q90D Qty: 30 0RF metolazone 5 mg tablet 5 mg PO DAILY PRN (Reason: weight gain) Qty: 30 5RF calcitriol 0.25 mcg capsule 0.5 mcg PO QAM Qty: 180 3RF rivaroxaban 15 mg tablet 15 mg PO HS Qty: 90 3RF tramadol 50 mg tablet 50 mg PO BID PRN (Reason: Pain) Qty: 60 0RF midodrine 10 mg tablet 10 mg PO TID@0800,1200,1700 Qty: 270 3RF amoxicillin 500 mg tablet 2,000 mg PO DIRECTED PRN (Reason: 1 HOUR PRIOR TO DENTAL PROCEDURES) Patient Comments: 2,000 mg PO 1 hour prior to dental procedure.; Rx Instructions: TAKE 4 CAPSULES BY MOUTH 1 HOUR PRIOR TO DENTAL WORK (DME) Portable Oxygen Misc See Rx Instructions .Route Qty: 1 0RF Rx Instructions: As directed allopurinol 100 mg tablet 50 mg PO QAM cyclobenzaprine 5 mg tablet 5 mg PO BID PRN (Reason: muscle pain/stiffness) Patient Comments: Takes BID helps with tremor metoprolol succinate [Toprol XL] 100 mg tablet extended release 24 hr 100 mg PO BID torsemide 100 mg tablet 100 mg PO BID aspirin 81 mg tablet,chewable 81 mg PO DAILY potassium chloride 10 mEq capsule, extended release 20 meq PO BID magnesium 250 mg Tablet 250 mg PO HS cholecalciferol (vitamin D3) [Vitamin D3] 50 mcg (2,000 unit) Capsule 50 mcg PO DAILY tamoxifen 20 mg tablet 20 mg PO QAM docusate sodium 100 mg Capsule 100 mg PO DAILY PRN (Reason: constipation) Qty: 0 0RF Referrals Referrals: Zackery Cochran DO [Primary Care Provider] - Discharge Problem: Anemia Qualifiers: Anemia type: unspecified type Qualified Code(s): D64.9 - Anemia, unspecified Hypotension Qualifiers: Hypotension type: unspecified hypotension type Qualified Code(s): I95.9 - Hypotension, unspecified CRF (chronic renal failure) Qualifiers: Chronic kidney disease stage: unspecified stage Qualified Code(s): N18.9 - Chronic kidney disease, unspecified
[2024-05-14 12:31] LABS: Hematocrit (blood only) 27.3 % (42.0-52.0); Hemoglobin 8.4 g/dl (14.0-18.0); Mean Corpuscular Hemoglobin 25.2 pg (25.0-34.0); Mean Corpuscular Hgb Conc 30.8 g/dL (32.0-36.0); Mean Platelet Volume 10.1 fL (9.4-12.4); Platelet Count 194 K/uL (130-400); RDW Coefficient of Variation 17.7 % (11.5-14.5); RDW Standard Deviation 52.7 fL (36.4-46.3); Red Blood Count 3.33 M/uL (4.70-6.10); White Blood Count 9.82 K/ul (4.8-10.8)
[2024-05-14] MEDS: SODIUM CHLORIDE 0.9% 500 ML IV ONE ×2 (12:35→16:11)
[2024-05-14] MEDS: FAMOTIDINE 20MG IV PUSH 20 MG/5 ML SYR IV STA (12:35)
[2024-05-14 12:50] LABS: Alanine Aminotransferase 26 U/L (7-52); Albumin Globulin Ratio 1.1 (0.9-2); Albumin Level 3.2 gm/dl (3.4-5.0); Alkaline Phosphatase 57 U/L (34-104); Anion Gap 10 (3-11); Aspartate Aminotransferase 36 U/L (13-39); BUN Creatinine Ratio 32.5 (10-20); Bilirubin,Total 0.7 mg/dl (0.2-1.0); Blood Urea Nitrogen 82 mg/dl (6-23); Calcium 9.6 mg/dl (8.6-10.3); Carbon Dioxide 26 mmol/L (21-32); Chloride 104 mmol/L (98-107); Globulin 2.9 gm/dl (2.5-4.0); Glucose 91 mg/dl (70-99(Fasting)); Magnesium 2.5 mg/dl (1.7-2.4); Potassium 4.5 mmol/L (3.5-5.1); Sodium 140 mmol/L (136-145); Total Protein 6.1 gm/dl (6.0-8.3)
[2024-05-14] MEDS: PANTOprazole 80 MG in DEXTROSE 5% 100 ML IV ONE (12:50)
[2024-05-14 12:56] LABS: Troponin I High Sensitivity 20.1 pg/ml (0-20)
[2024-05-14 13:10] LABS: INR 1.1 (0.9-1.1); Partial Thromboplastin Time 26 Seconds (21-31); Prothrombin Time 11.8 Seconds (9.0-12.0)
--- NOTE | 2024-05-14 13:10 | CT Scan Report ---
CT OF THE ABDOMEN AND PELVIS WITHOUT CONTRAST CLINICAL HISTORY: bloody stool, 1 kidney, xarelto COMPARISON STUDY: CT of the abdomen and pelvis January 27, 2024. TECHNIQUE: Axial images of the abdomen and pelvis were obtained without IV contrast. Images were revi ewed in the axial, sagittal, and coronal planes. Automated exposure control was utilized for the judah dy. A dose lowering technique was utilized adhering to the principles of ALARA. FINDINGS: No pneumatosis, free air or portal venous gas is present. There is no evidence for a bowel obstruction status post Juan-en-Y gastric bypass. There is no biliary ductal dilatation status post c holecystectomy. Hypodense hepatic lesions are unchanged and favor cysts. Spleen and adrenal glands ar e unremarkable. Left kidney is surgically absent. A 1.4 cm hyperdense nodule adjacent to the lower po le of the right kidney is unchanged. This could represent a proteinaceous cyst or less likely a small solid renal lesion. There is no lymphadenopathy. Slight prominence of the right collecting system wi thout hydronephrosis. No bowel wall thickening is identified on unenhanced exam. This colonic diverti culosis without evidence for acute diverticulitis. No bowel wall thickening is identified on unenhanc ed study. The appendix is normal. IMPRESSION: 1. No acute process within the abdomen or pelvis on unenhanced exam. 2. Colonic diverticulosis. No evidence for acute diverticulitis. No bowel obstruction. No bowel wall thickening on unenhanced exam. 3. Status post Juan-en-Y gastric bypass. 4. No abnormality within the left nephrectomy bed. ACT 112: Negative or not required by law. Electronically signed by: Eddy Bashir M.D. 05/14/2024 1:08 PM
--- NOTE | 2024-05-14 13:18 | History & Physical Report ---
Date of Service May 14, 2024 Assessment & Plan (1) Rectal bleed: (2) Atrial fibrillation: Plan Kyler is an 84-year-old male with PMH of A-fib RVR (on Xarelto), CHF, RACHELE, secondary hyperparathyroidism, renal cell carcinoma s/p left-sided nephrectomy, CKD, HTN, and HLD. He presented on 05/14 for bright red blood in stool. This started yesterday evening at 7 PM. He went to the bathroom approximately 3 times last night, and each time he had dark stool with bright red blood in it. He also had 2 additional episodes this morning. #Rectal bleed Hgb 8.4 on arrival Currently taking Xarelto for history of atrial fibrillation Initially, patient's vitals were stable in the ED, however his blood pressure began to drop (low of 86/56) ED discussed with coagulation clinic Nena ordered (2000 units IV) x 1 Blood form consent obtained at bedside 2u pRBCs ordered Trend H&H q4h Strict n.p.o., hold all p.o. medications Okay to continue midodrine TID 2 large-bore ordered Patient reports BRB in stool, but upper GI bleed remains in the differential ( elevated BUN 82) Protonix 80 mg IV bolus x 1 Protonix 40 mg IV BID IV pain control PRN #Atrial fibrillation Rate controlled on admission Hold Xarelto Hold metoprolol #Hypotension Hold all antihypertensives for now #HFrEF Last echocardiogram on 04/28/2024 revealed mildly reduced LVEF at 40 to 45% Strict I&O monitoring Daily weights Monitor for TACO/TRALI in the event patient requires blood transfusion; Lasix 20mg IV as needed Hold torsemide + K supplementation in the setting of GI bleed / hypotension #FIFI CPAP HS + 3L supplemental O2 Disposition: Admit to PCU telemetry Full code N.p.o. for now VTE PPx: Hold Xarelto; SCDs History of Present Illness Chief Complaint: Rectal bleed Primary Care Provider: Zackery Cochran DO Kyler is an 84-year-old male with PMH of A-fib RVR (on Xarelto), CHF, RACHELE, secondary hyperparathyroidism, renal cell carcinoma s/p left-sided nephrectomy, CKD, HTN, and HLD. He presented on 05/14 for bright red blood in stool. This started yesterday evening at 7 PM. He went to the bathroom approximately 3 times last night, and each time he had dark stool with bright red blood in it. He also had 2 additional episodes this morning. His stool was loose in consistency. He does have a history of abdominal surgery; gastric bypass in 2004, as well as history of cholecystectomy. Patient also notes he has had fissures from time to time. No prior history of GI bleeds to his knowledge. He does use supplemental oxygen at night through his CPAP (3L) and has been doing so since his MitraClip operation at [facility] recently. Patient ambulates with a cane at baseline. He reports he experienced a fall on while in his bedroom. He was coming around the corner of his bed and the cane got caught on the mattress. Likely he was able to fall onto his bed, however he fell into his cane, which pushed into his stomach and caused some bruising on his right lower abdomen. Patient took his regular morning medicine today. He takes Xarelto in the evenings, and reports that he did take it last night on 05/13. New medications include cyclobenzaprine for his tremors, baby aspirin, and an increase in his metoprolol to 100 mg p.o. twice daily. Patient reports that he was just recently started on aspirin after his mitral clip surgery at [facility]; he reports no prior history of heart stents. He does have a history of blood transfusions, and believes the last transfusion might have been 12 years ago. Patient denies smoking, tobacco use, or recent alcohol use. Patient is hypotensive at 93/44 at time of admission. ED course: Prothrombin complex concentrate 2000 units IV NSS 500 mL IV Pantoprazole 80 mg IV Famotidine 20 mg IV ROS: Patient endorses BRB in stool, recent injury to stomach, SERVIN (chronic), tremors, and burning with urination (ongoing for months). Patient denies fever, chills, night-sweats, dizziness, lightheadedness, chest pain, chest palpitations, pleuritic CP, coughing, hemoptysis, SOB, abdominal pain, N/V, blood in the urine, or numbness/tingling in the arms or legs. Allergies Allergy/AdvReac Type Severity Reaction Status Date / Time iron [From Venofer] AdvReac Mild Vomiting Verified 04/14/24 08:57 Iodinated Contrast Media AdvReac Unknown PT ONLY Verified 04/14/24 08:57 [Iodinated Contrast- Oral HAS 1 and IV Dye] KIDNEY, CONTRAINDICATED. Home Medications Medication Instructions Recorded Confirmed Type amoxicillin 500 mg tablet 2,000 mg PO DIRECTED PRN 1 HOUR 11/16/18 05/14/24 History PRIOR TO DENTAL PROCEDURES cholecalciferol (vitamin D3) 50 50 mcg PO DAILY 07/10/22 05/14/24 History mcg (2,000 unit) capsule (Vitamin D3) magnesium 250 mg tablet 250 mg PO HS 07/10/22 05/14/24 History cyanocobalamin (vitamin B-12) 1,000 mcg IM Q90D #30 mL 09/23/22 05/14/24 Rx 1,000 mcg/mL injection solution metolazone 5 mg tablet 5 mg PO DAILY PRN weight gain #30 10/23/22 05/14/24 Rx tabs Portable Oxygen #1 ea 05/25/23 05/13/24 Rx tamoxifen 20 mg tablet 20 mg PO QAM 12/22/23 05/14/24 History docusate sodium 100 mg capsule 100 mg PO DAILY PRN constipation 02/08/24 05/14/24 Rx #0 caps allopurinol 100 mg tablet 50 mg PO QAM 03/03/24 05/14/24 History calcitriol 0.25 mcg capsule 0.5 mcg (2 x 0.25 mcg) PO QAM #180 04/01/24 05/14/24 Rx caps rivaroxaban 15 mg tablet 15 mg PO HS #90 tabs 04/01/24 05/14/24 Rx tramadol 50 mg tablet 50 mg PO BID PRN Pain #60 tabs 04/01/24 05/14/24 Rx midodrine 10 mg tablet 10 mg PO TID@0800,1200,1700 #270 04/04/24 05/14/24 Rx tabs aspirin 81 mg chewable tablet 81 mg PO DAILY 05/13/24 05/14/24 History cyclobenzaprine 5 mg tablet 5 mg PO BID PRN muscle 05/13/24 05/14/24 History pain/stiffness metoprolol succinate 100 mg 100 mg PO BID 05/13/24 05/14/24 History tablet,extended release 24 hr (Toprol XL) potassium chloride 10 mEq 20 meq PO BID 05/13/24 05/14/24 History capsule,extended release torsemide 100 mg tablet 100 mg PO BID 05/13/24 05/14/24 History Past Med/Surg History Problem List (Updated 05/14/24 @ 15:45 by Ben King MD) Hypovolemic shock Acute gastrointestinal bleeding Atrial fibrillation Rectal bleed Atrial fibrillation with RVR (Acute) Permanent atrial fibrillation with RVR Chest pain Acute respiratory failure with hypoxia (Acute) Acute on chronic diastolic CHF (congestive heart failure) Excessive attrition of teeth, extending into dentine Hip pain, right Hypokalemia Bacteremia Thrombocytopenia (Acute) Fall (Acute) Sepsis (Acute) Abnormal CT of the abdomen Sepsis Chronic anemia Iron deficiency Traumatic open wound of left lower leg with delayed healing (Acute) Lower extremity edema Decreased calculated glomerular filtration rate (GFR) Secondary hyperparathyroidism History of aortic valve disease s/p AVR (2006) History of renal cell carcinoma Hypokalemia Chronic venous insufficiency (Chronic) Traumatic open wound of right lower leg (Acute) Wound of right leg Class 3 severe obesity due to excess calories with body mass index (BMI) of 40.0 to 44.9 in adult Gynecomastia, male Family history of breast cancer gene mutation in first degree relative Hx of gynecomastia Left breast lump Nocturnal hypoxemia Complex sleep apnea syndrome Chronic kidney disease, stage 4 (severe) (Chronic) Hypertension (Chronic) Shortness of breath Acute diastolic (congestive) heart failure Hypermagnesemia Arm pain Hand numbness Foraminal stenosis of cervical region Vitamin D deficiency Anxiety (Acute) Venous insufficiency (chronic) (peripheral) Morbid obesity with BMI of 40.0-44.9, adult Gout Microcytic anemia Chronic low back pain with right-sided sciatica B12 deficiency Chronic diastolic CHF (congestive heart failure) (Chronic) Hyperlipidemia (Chronic) Medical History Congestive heart failure Chronic dental pain Hypotension Chronic renal insufficiency, stage IV (severe) Iron deficiency anemia Obstructive sleep apnea Atrial fibrillation Diabetes mellitus Aspiration into respiratory tract Acute kidney injury superimposed on CKD Morbid obesity History of anxiety Hx of gout Hx of rotator cuff tear Hx of osteoarthritis Hx of impacted cerumen History of COVID-19 Prediabetes Kidney stones Renal cell adenocarcinoma Chronic kidney disease, stage III (moderate) CKD (chronic kidney disease), stage III Surgical History H/O aortic valve replacement Hx of cardiac catheterization History of total bilateral knee replacement History of esophagogastroduodenoscopy (EGD) Hx of colonoscopy Hx of tonsillectomy Hx of cystoscopy History of left nephrectomy History of spinal surgery Aortic valve replaced History of gastric bypass History of cholecystectomy Family History Mother Breast cancer Lung disease Grandmother (Maternal) Breast cancer Aunt Breast cancer Sister Breast cancer Father Myocardial infarction Arthritis Denies family history of Ovarian cancer Prostate cancer Colorectal cancer Social History Smoking Status: Never smoker Second Hand Exposure: No; Do You Dip or Chew Tobacco: No; Hx Alcohol Use: No Hx Substance Use: No Preferred Language: German Communication Ability: Effective Visual Impairment: No Limitations Hearing Ability: Normal Classer Required: No Beliefs That Will Affect Care: None marital status: Current Living Situation: Rehab Current Living Situation Comment: Lives w/ , son lives in basement current occupational status: retired 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[employer] Feels Safe at Home: Yes Childhood Exposure to Second-Hand Smoke: Yes Diet: regular caffeine: Yes Dental Care, Regularly: Yes Physical Activity Frequency: Does not Exercise Physical Activity Frequency Comment: Physical activity limited due to medical conditions Seatbelt Use: always Sunscreen Use: No Do you think of yourself as: straight/heterosexual Gender Identity: Male Assistive Devices: Walker Review of Systems Review of Systems: See HPI above Physical Exam Physical Exam: General: no acute distress; pleasant affect; at bedside; non-toxic appearing; well-nourished; cooperative; SpO2 95% on RA HEENT: normocephalic, atraumatic; no scleral icterus; PERRLA; vision and hearing grossly intact Neck: supple; no lymphadenopathy; trachea midline Skin: Pallor; warm, dry without signs of tenting; no cyanosis; no rashes, bruising, lesions, or erythema noted CV: chest wall NTP; irregularly irregular rhythm, mildly tachycardic around 90- 100 bpm; S1/S2 normal; no murmurs/rubs/gallops; pulses intact and symmetric at radial, DP, and PT Lungs: no acute respiratory distress; symmetrical chest wall expansion; clear breath sounds across all lung kuhn w/o adventitious sounds; no wheezing ABD: Soft, mildly tender to palpation in all 4 quadrants; mild, superficial bruising noted on the RLQ; BS present; no rebound/guarding; moderate distention secondary to body habitus MSK: Resting tremor noted in both arms bilaterally; no edema noted in the LEs b/l, nonerythematous Neuro: A&Ox3; normal mood and affect; fluent speech; no focal deficits; sensation grossly intact in the LEs b/l Results & Data Results & Data Vital Signs (Past 12 Hours) Vital Signs Temp Pulse Resp BP Pulse Ox O2 Del Method 05/14/24 13:00 98 H 23 05/14/24 12:54 91/56 L 05/14/24 12:51 92 H 29 H 05/14/24 12:43 95 Room Air 05/14/24 12:30 36 H 05/14/24 12:28 92 H 05/14/24 12:27 88 33 H 05/14/24 11:47 36.2 C L 85 18 145/90 H 100 Room Air Laboratory Results Abnormal lab results 05/14/24 Range/Units 12:06 RBC 3.33 L (4.70-6.10) M/uL Hgb 8.4 L (14.0-18.0) g/dl Hct 27.3 L (42.0-52.0) % MCHC 30.8 L (32.0-36.0) g/dL RDW Std Deviation 52.7 H (36.4-46.3) fL RDW Coeff of Sarah 17.7 H (11.5-14.5) % BUN 82 H (6-23) mg/dl Creatinine 2.52 H (0.6-1.4) mg/dl BUN/Creatinine Ratio 32.5 H (10-20) Magnesium 2.5 H (1.7-2.4) mg/dl Troponin I High Sens 20.1 H (0-20) pg/ml Albumin 3.2 L (3.4-5.0) gm/dl Diagnostic Findings Abdomen/Pelvis CT 05/14/24 12:27 CT OF THE ABDOMEN AND PELVIS WITHOUT CONTRAST CLINICAL HISTORY: bloody stool, 1 kidney, xarelto COMPARISON STUDY: CT of the abdomen and pelvis January 27, 2024. TECHNIQUE: Axial images of the abdomen and pelvis were obtained without IV contrast. Images were reviewed in the axial, sagittal, and coronal planes. Automated exposure control was utilized for the study. A dose lowering technique was utilized adhering to the principles of ALARA. FINDINGS: No pneumatosis, free air or portal venous gas is present. There is no evidence for a bowel obstruction status post Juan-en-Y gastric bypass. There is no biliary ductal dilatation status post cholecystectomy. Hypodense hepatic lesions are unchanged and favor cysts. Spleen and adrenal glands are unremarkable. Left kidney is surgically absent. A 1.4 cm hyperdense nodule adjacent to the lower pole of the right kidney is unchanged. This could represent a proteinaceous cyst or less likely a small solid renal lesion. There is no lymphadenopathy. Slight prominence of the right collecting system without hydronephrosis. No bowel wall thickening is identified on unenhanced exam. This colonic diverticulosis without evidence for acute diverticulitis. No bowel wall thickening is identified on unenhanced study. The appendix is normal. IMPRESSION: 1. No acute process within the abdomen or pelvis on unenhanced exam. 2. Colonic diverticulosis. No evidence for acute diverticulitis. No bowel obstruction. No bowel wall thickening on unenhanced exam. 3. Status post Juan-en-Y gastric bypass. 4. No abnormality within the left nephrectomy bed. ACT 112: Negative or not required by law. Electronically signed by: Eddy Bashir M.D. 05/14/2024 1:08 PM ECG Additional Comments: ECG revealed atrial fibrillation at 87 bpm; QTc 466 Code Status & VTE Plan Code Status Full code VTE Prophylaxis Plan VTE Prophylaxis will be ordered: Yes Supervising Physician Co-Signing Physician Notes Patient seen and examined, chart reviewed, case discussed with Jared Curry PA-C and I agree with the assessment and plan as above except as otherwise noted Labs and images reviewed 84-year-old male with history of A-fib RVR, diastolic CHF, gastric bypass, obesity, left nephrectomy who is on aspirin and rivaroxaban who presents with melena and hematochezia. He is hypotensive in the ER. Blood ordered for transfusion. BUN is elevated. Suspect acute upper GI bleed due to history of bypass and commendation of antiplatelet/anticoagulation. Kcentra has been given. Protonix push has been given, twice daily push dosing continued. GI has been consulted, anticipate urgent EGD today. Strict NPO. Units ordered for transfusion, 1 on hold discussed with blood bank, pending this additional fluid bolus has been ordered for progressive hypotension. BP did improve following fluids. At bedside assessment patient is hypotensive although improving with fluids, does have some mild epigastric tenderness remaining abdomen is without rebound/guarding/rigidity. Patient is is mentating normally and conversing. PG Care Time/CCT Total # of Minutes Spent Total Time Spent with Patient: Total time spent is greater than 50% in coordination of care (as documented) at patient's floor/unit and/or counseling patient: Coding [place] [address] INT INP/OBS CARE 3/75MIN Patient Type Established Medical Decision Making High Complexity Diagnoses Rectal bleed K62.5 Atrial fibrillation I48.21 Atrial fibrillation type: permanent (2) Atrial fibrillation Atrial fibrillation type: permanent Qualified Code(s): I48.21 - Permanent atrial fibrillation
[2024-05-14] MEDS ORDERED: SODIUM CHLORIDE 0.9% 50 ML IV PRN ×4 (13:47→17:15)
[2024-05-14] MEDS ORDERED: SODIUM CHLORIDE 0.9% 100 ML IV PRN ×4 (13:47→17:15)
[2024-05-14] MEDS: KCENTRA (500unit vial) 2000 units IVP IV ONE (13:51)
--- NOTE | 2024-05-14 14:15 | XRay Report ---
HISTORY: GI bleed. TECHNIQUE: Portable AP radiographs of the chest. COMPARISON: None. FINDINGS: No focal lung consolidation. No pneumothorax or pleural effusion. Cardiomegaly is mild. Postsurgical changes of median sternotomy. Left-sided aortic arch. Midline trachea. No acute osseous abnormality. Right upper quadrant surgical clips consistent with cholecystectomy. IMPRESSION: 1. No acute cardiopulmonary findings. 2. Mild cardiomegaly. Electronically signed by Sumeet Hanson 05-14-2024 2:14 PM
[2024-05-14 14:25] LABS: Hematocrit (blood only) 24.9 % (42.0-52.0); Hemoglobin 7.6 g/dl (14.0-18.0)
[2024-05-14 14:55] LABS: Adenovirus F 40/41 PCR Not Detected (NotDetected); Astrovirus PCR Not Detected (NotDetected); Campylobacter PCR Not Detected (NotDetected); Cryptosporidium PCR Not Detected (NotDetected); Cyclospora cayetanensis PCR Not Detected (NotDetected); Entamoeba histolytica PCR Not Detected (NotDetected); Enteroaggregative E.coli(EAEC) Not Detected (NotDetected); Enteropathogenic E.coli (EPEC) Not Detected (NotDetected); Enterotoxigenic E.coli (ETEC) Not Detected (NotDetected); Giardia lamblia PCR Not Detected (NotDetected); Norovirus GI/GII PCR Not Detected (NotDetected); Plesiomonas shigelloides PCR Not Detected (NotDetected); Rotavirus A PCR Not Detected (NotDetected); Salmonella PCR Not Detected (NotDetected); Sapovirus PCR Not Detected (NotDetected); Shiga-like Toxin E.coli (STEC) Not Detected (NotDetected); Shigella/Enteroinvasive E.coli Not Detected (NotDetected); Vibrio cholerae PCR Not Detected (NotDetected); Vibrio species PCR Not Detected (NotDetected); Yersinia enterocolitica PCR Not Detected (NotDetected)
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
--- NOTE | 2024-05-14 15:55 | Electrocardiogram Report ---
Test Reason : Blood Pressure : */* mmHG Vent. Rate : 87 BPM Atrial Rate : * BPM P-R Int : * ms QRS Dur : 94 ms QT Int : 388 ms P-R-T Axes : * 72 154 degrees QTcB Int : 466 ms Atrial fibrillation Nonspecific ST and T wave abnormality Abnormal ECG When compared with ECG of 15-Feb-2024 05:15, ST less depressed in Anterior leads Nonspecific T wave abnormality has replaced inverted T waves in Inferior leads T wave inversion no longer evident in Anterior leads Confirmed by Taco Cabrera ([id number]) on 05/14/2024 3:55:13 PM Referred By: REFERRED SELF Confirmed By: Taco Cabrera
--- NOTE | 2024-05-14 16:45 | Communication Note ---
Date of Service: May 14, 2024 GI bleed Reassessed in the emergency room. First unit hanging. Blood pressure improved to 90 systolic. Patient's color better. Less shivering. Thanks second unit once current unit infused. Urgent endoscopy once OR available.
[2024-05-14] MEDS ORDERED: ACETAMINOPHEN 1,000 MG/100 ML VIAL IV PRN (16:51)
[2024-05-14] MEDS: MIDODRINE HCL 10 MG TAB PO SCH (18:22)
[2024-05-14] MEDS ORDERED: STAT IV Infusion **Titration per Protocol STA (18:23)
--- NOTE | 2024-05-14 18:30 | Anesthesiology Consultation ---
Date of Service May 14, 2024 Assessment & Plan Chart Review Chart Review: Acceptable Risk for Surgery and Patient NOT seen in Pre Admission Testing Consults Requested none ASA [id number] Proposed Anesthesia Anesthesia Type: General History Surgery Operation Date: 05/14/24 17:30 Proposed Procedures p Esophagogastroduodenoscopy - Ben King MD Height/Weight Height: 5 ft 6 in Weight: 101.7 kg Allergies Allergy/AdvReac Type Severity Reaction Status Date / Time iron [From Venofer] AdvReac Mild Vomiting Verified 04/14/24 08:57 Iodinated Contrast Media AdvReac Unknown PT ONLY Verified 04/14/24 08:57 [Iodinated Contrast- Oral HAS 1 and IV Dye] KIDNEY, CONTRAINDICATED. Medications Home Medications Medication Instructions Recorded Confirmed Last Taken amoxicillin 500 mg tablet 2,000 mg PO DIRECTED PRN 1 HOUR 11/16/18 05/14/24 Unknown PRIOR TO DENTAL PROCEDURES cholecalciferol (vitamin D3) 50 50 mcg PO DAILY 07/10/22 05/14/24 2 Days Ago mcg (2,000 unit) capsule (Vitamin ~12/20/23 D3) magnesium 250 mg tablet 250 mg PO HS 07/10/22 05/14/24 2 Days Ago ~12/20/23 cyanocobalamin (vitamin B-12) 1,000 mcg IM Q90D #30 mL 09/23/22 05/14/24 2 Days Ago 1,000 mcg/mL injection solution ~12/20/23 metolazone 5 mg tablet 5 mg PO DAILY PRN weight gain #30 10/23/22 05/14/24 Unknown tabs Portable Oxygen #1 ea 05/25/23 05/13/24 Unknown tamoxifen 20 mg tablet 20 mg PO QAM 12/22/23 05/14/24 2 Days Ago ~12/20/23 docusate sodium 100 mg capsule 100 mg PO DAILY PRN constipation 02/08/24 05/14/24 Unknown #0 caps allopurinol 100 mg tablet 50 mg PO QAM 03/03/24 05/14/24 Unknown calcitriol 0.25 mcg capsule 0.5 mcg (2 x 0.25 mcg) PO QAM #180 04/01/24 05/14/24 Unknown caps rivaroxaban 15 mg tablet 15 mg PO HS #90 tabs 04/01/24 05/14/24 Unknown tramadol 50 mg tablet 50 mg PO BID PRN Pain #60 tabs 04/01/24 05/14/24 Unknown midodrine 10 mg tablet 10 mg PO TID@0800,1200,1700 #270 04/04/24 05/14/24 Unknown tabs aspirin 81 mg chewable tablet 81 mg PO DAILY 05/13/24 05/14/24 Unknown cyclobenzaprine 5 mg tablet 5 mg PO BID PRN muscle 05/13/24 05/14/24 Unknown pain/stiffness metoprolol succinate 100 mg 100 mg PO BID 05/13/24 05/14/24 Unknown tablet,extended release 24 hr (Toprol XL) potassium chloride 10 mEq 20 meq PO BID 05/13/24 05/14/24 Unknown capsule,extended release torsemide 100 mg tablet 100 mg PO BID 05/13/24 05/14/24 Unknown Active Medications Generic Name Dose Route Start Last Admin Trade Name Freq PRN Reason Stop Dose Admin Midodrine 10 mg 05/14/24 17:00 05/14/24 18:22 Midodrine Hcl 10 Mg Tab PO 06/13/24 16:59 Not Given TID@0800,1200,1700 [facility] Past Medical History Medical History Congestive heart failure Chronic dental pain Hypotension Chronic renal insufficiency, stage IV (severe) Iron deficiency anemia Obstructive sleep apnea BIPAP Diabetes mellitus Aspiration into respiratory tract Acute kidney injury superimposed on CKD Morbid obesity History of anxiety Hx of gout Hx of rotator cuff tear Difficulty with raising arms without extreme pain, currently in PT Hx of osteoarthritis Hx of impacted cerumen History of COVID-19 01/2021 > "mild" cold symptoms, resolved Prediabetes Kidney stones Hx x7 Renal cell adenocarcinoma s/p nephrectomy Chronic kidney disease, stage III (moderate) CKD (chronic kidney disease), stage III severe pulm. HTN S/P Bioprosthetic AVR 2006 S/P mitraclip for MR 04/27/2024 Exercise / Class Metabolic Activity III < 4 Walking/Shop/Light housework Past Family History Family History Mother Breast cancer Lung disease Grandmother (Maternal) Breast cancer Aunt Breast cancer Sister Breast cancer Father Myocardial infarction Arthritis Denies family history of Ovarian cancer Prostate cancer Colorectal cancer Past Surgical History Surgical History H/O aortic valve replacement Hx of cardiac catheterization 11/2020 > no stents History of total bilateral knee replacement History of esophagogastroduodenoscopy (EGD) Hx of colonoscopy Hx of tonsillectomy Hx of cystoscopy w/stone basketing History of left nephrectomy History of spinal surgery Aortic valve replaced bioprosthesis, 2006 History of gastric bypass History of cholecystectomy Past Anesthesia History No Hx of Anesthesia Complications and No Family Hx of Anesthesia Complications History of PONV No Hx of PONV and No Hx of Motion Sickness Social History Smoking Status: Never smoker Do You Dip or Chew Tobacco: No Hx Alcohol Use: No alcohol intake frequency: holidays/special occasions only Hx Substance Use: No substance use type: does not use Physical Exam Vital Signs Last Vital Signs Temp 36.6 C 05/14/24 18:21 Pulse 101 H 05/14/24 17:35 Resp 19 05/14/24 17:35 BP 85/54 L 05/14/24 17:35 Pulse Ox 100 05/14/24 17:35 O2 Del Method Room Air 05/14/24 15:00 O2 Flow Rate 2 05/14/24 17:35 Testing Laboratory Results 05/14/24 14:10 05/14/24 12:06 PT 11.8 Seconds (9.0-12.0) 05/14/24 12:06 INR 1.1 (0.9-1.1) 05/14/24 12:06 APTT 26 Seconds (21-31) 05/14/24 12:06 Blood Type O Positive 05/14/24 12:06 Antibody Screen NEGATIVE 05/14/24 12:06 Electrocardiogram Date: 05/14/24 Findings: + AFIB @ (@ 87;NS ST T wave abnl) Chest X-Ray Date: 05/14/24 Findings: + NAD and + cardiomegaly Echocardiogram Date: 04/28/24 EF: 40% LV Function: dysfunctional RWMA: + hypokinetic (diffuse HK) Valvular Disease: + AI (mild AI via bioprosthetic AV) and + MR (moderate) mildly decreased RV systolic function
--- NOTE | 2024-05-14 18:31 | Critical Care Consultation ---
Date of Consultation May 14, 2024 Assessment & Plan (1) Acute GI bleeding: (2) Hypovolemic shock: (3) Permanent atrial fibrillation with RVR: (4) DEONNA (acute kidney injury): Plan Reason Critically Ill: 84 YOM present with GI bleed unspecified source, now in hemorrhagic shock- taken urgently to OR for EGD - no source of bleeding found in pouch/loop. Recommend transfer to tertiary care center for IR availability. Neuro - No acute needs CAM ICU: Negative - follow post sedation recovery Cardiac - Shock - hemorrhagic likely, HX Afib, HTN, HLD, AVR bio-prosthetic valve, MVR (Jake CALI x2) - Patient presented with suspected GI Bleed unspecified in setting of Kd- En-Y bypass history. - He received PCC at 1330 - approx 1630 he developed hypotension received 3 units of PRBC and 1GM Calcium Gluconate - ICU arrival hypotensive- blood rate increased and hypotension resolving - Access adequate at this time 2 working 18g, 2 working 20g - Arterial line placed - Levophed on standby if unable to keep BP up with product Respiratory - No acute needs - If support becomes required will bridge with BiPAP if able, if not intubation will be done GI - Acute hemorrhagic shock GI bleed source unspecified - Patient with Kd- EN-Y- gastric bypass presents with melena and blood per rectum - Urgent EGD performed in the OR- see separate procedure note- in short no bleeding found in pouch/loop- recommends transfer to center with IR capability- "Concern is for a bleed in the extruded stomach. Gastro renal artery suspect." - BUN elevated 82, INR, 1.1- Fibrinogen pending - No history of cirrhosis and no report of varices - CT abd/non con obtained in ER - no acute process- specifically no mention of retroperitoneal bleed or other evidence of intraabdominal bleeding. - CTA obtained 2100- images [place] to [facility] official read- RENAL/LYTES - DEONNA on CKD, Hx of renal cell carcinoma with left nephrectomy, - Continue with hemodynamic support in form of blood and vasopressors if needed- maintain MAPS 65, - Ringers at 110ml/hr for maintenance post contrast - No acute needs at this time - Talavera to trend urine output ENDO - No acute needs HEME - Hemorrhagic shock - Appreciate GI evaluation and EGD- Concern for bleeding at site unreachable by scope. Anastomosis not reached - Received 2 units PRBC, Calcium gluconate - HGB post EGD- 9.0- at this time not continuing to downtrend - Fibrinogen now - Received Kcentra at 1330 - INR 1.1 - Patient did fall a 2-3 days ago with ecchymosis to buttocks- as above no indication on initial CT of occult bleed- re-eval with CTA- negative for other source of occult hemorrhage ID - No concern at this time for infectious etiology LINES/IV ACCESS - PIV x4, Talavera, Arterial Line Continue use of these lines DVT PROPHYLAXIS - SCDS, Hold chemoprophylaxis in setting of hemorrhagic shock DISPO: ICU while awaiting further studies as well as pending possible transfer. 2019- At this time I have spoken to Tiffanie and DR. Troncoso ICU- with risk of acute bleed and ability at this time to transfer via ground - extended travel to their center would be risky, and if able reach out to closer destination at [facility]. 2349- Updated Tiffanie Troncoso- reviewed the current state with updated imaging, vitals, and labs. As below, he has currently proven some stability and negative imaging at this time, feels that he can be monitored and supported as we are doing. If any changes in hemodynamics or blood levels can call back and re-address. [facility] [place] - Spoke with ICU Attending Dr. Temple (sp?), and minimally invasive surgeon Dr. Fofana- With the risk of weather and bleeding, recommend obtaining CTA of the abdomen and Pelvis now if target is identified or active bleeding still noted, then will accept with IR on next phone call. Did re- iterate to them the patient's creatinine and history of Left Nephrectomy- and if bleeding has stabilized we may not identify a bleed. They did understand this as well and would like to evaluate with CTA with images pushed to [facility] at 2114- awaiting call back. official read obtained (2229). 2244 [facility] [place] images and waiting for IR review, IR reviewed with ICU and have declined transfer as no acute intervention required at this time (2331). 2345- Discussed with GI driver lifter of sanitation truck Dr. King on above, as patient is stable and consideration for re-bleed, still would like a center with IR capabilities and if no transfer Ok with monitoring here for stability with possible re-scope if needed within 48 hours or urgently if needed. I have personally spent 75 minutes of critical care time in the direct management of this patient. This is a life/limb threatening event. This includes time spent evaluating patient, direct bedside care, chart review, placing orders, interpretation of diagnostic studies, discussion with consultants, patient, and family members, as well as other required patient management activities. This time is exclusive of all separately billable procedures, and teaching time and separate from and in addition to any other critical care service time. Thank you for allowing us to participate in the care of this patient. Please refer to my attending physician's documentation for any further recommendations. Supervising Physician Co-Signing Physician Notes Patient seen and examined. EMR reviewed. Discussed with critical care KENA. Agree with assessment plan as noted. Please for my progress note from 05/15/2024 for additional details History of Present Illness Reason for Consultation: Hemmorhagic shock from GI bleed unspecified Requesting Physician: Primitivo Pollard MD Attending Physician: Primitivo Pollard MD History of Present Illness 84 YOM with medical history of: KD-en-Y gastric bypass, Afib (on xarelto), Biopresthetic Aortic Valve [place]20 [place] [facility] MItral Regurge with rupture (S/p Jaek CALI device x2 04/23), Pulmonary HTN, HFpEF, Renal Cell Carcinoma (s/p left sided nephrectomy), CKD, HTN, HLD. Patient came to the ER today for 1 day history of diarrhea, maroon colored stool, and blood per rectum. CT abd/pelvis WITHOUT contrast was performed with no acute process noted. He was given PCC for his Xarelto and suspected GI Bleed. Patient was preparing for admission. At approx 1630, patient had acute drop in blood pressure, rigors- He was initiated with PRBC infusion and preparations were being made for upper endoscopy in the OR by GI- DR. King. Patient arrived to the ICU prior to OR with 2nd unit of PRBC infusion BP 80/40s. He was mentating well and was warm with palpable pulses. Blood rate was increased to 200ml per hour which brought his blood pressure up to > 100 systolic and MAPS 69. Shortly after arrival anesthesia evaluation was completed, GI arrived to obtain consent, Arterial line was placed for accurate monitoring while in case as well as frequent blood draws. Patient taken to the OR stable. CODE: FULL Allergies Allergy/AdvReac Type Severity Reaction Status Date / Time iron [From Venofer] AdvReac Mild Vomiting Verified 04/14/24 08:57 Iodinated Contrast Media AdvReac Unknown PT ONLY Verified 04/14/24 08:57 [Iodinated Contrast- Oral HAS 1 and IV Dye] KIDNEY, CONTRAINDICATED. Home Medications Medication Instructions Recorded Confirmed Type amoxicillin 500 mg tablet 2,000 mg PO DIRECTED PRN 1 HOUR 11/16/18 05/14/24 History PRIOR TO DENTAL PROCEDURES cholecalciferol (vitamin D3) 50 50 mcg PO DAILY 07/10/22 05/14/24 History mcg (2,000 unit) capsule (Vitamin D3) magnesium 250 mg tablet 250 mg PO HS 07/10/22 05/14/24 History cyanocobalamin (vitamin B-12) 1,000 mcg IM Q90D #30 mL 09/23/22 05/14/24 Rx 1,000 mcg/mL injection solution metolazone 5 mg tablet 5 mg PO DAILY PRN weight gain #30 10/23/22 05/14/24 Rx tabs Portable Oxygen #1 ea 05/25/23 05/13/24 Rx tamoxifen 20 mg tablet 20 mg PO QAM 12/22/23 05/14/24 History docusate sodium 100 mg capsule 100 mg PO DAILY PRN constipation 02/08/24 05/14/24 Rx #0 caps allopurinol 100 mg tablet 50 mg PO QAM 03/03/24 05/14/24 History calcitriol 0.25 mcg capsule 0.5 mcg (2 x 0.25 mcg) PO QAM #180 04/01/24 05/14/24 Rx caps rivaroxaban 15 mg tablet 15 mg PO HS #90 tabs 04/01/24 05/14/24 Rx tramadol 50 mg tablet 50 mg PO BID PRN Pain #60 tabs 04/01/24 05/14/24 Rx midodrine 10 mg tablet 10 mg PO TID@0800,1200,1700 #270 04/04/24 05/14/24 Rx tabs aspirin 81 mg chewable tablet 81 mg PO DAILY 05/13/24 05/14/24 History cyclobenzaprine 5 mg tablet 5 mg PO BID PRN muscle 05/13/24 05/14/24 History pain/stiffness metoprolol succinate 100 mg 100 mg PO BID 05/13/24 05/14/24 History tablet,extended release 24 hr (Toprol XL) potassium chloride 10 mEq 20 meq PO BID 05/13/24 05/14/24 History capsule,extended release torsemide 100 mg tablet 100 mg PO BID 05/13/24 05/14/24 History Patient History Medical History Congestive heart failure Chronic dental pain Hypotension Chronic renal insufficiency, stage IV (severe) Iron deficiency anemia Obstructive sleep apnea BIPAP Diabetes mellitus Aspiration into respiratory tract Acute kidney injury superimposed on CKD Morbid obesity History of anxiety Hx of gout Hx of rotator cuff tear Difficulty with raising arms without extreme pain, currently in PT Hx of osteoarthritis Hx of impacted cerumen History of COVID-19 01/2021 > "mild" cold symptoms, resolved Prediabetes Kidney stones Hx x7 Renal cell adenocarcinoma s/p nephrectomy Chronic kidney disease, stage III (moderate) CKD (chronic kidney disease), stage III Surgical History H/O aortic valve replacement Hx of cardiac catheterization 11/2020 > no stents History of total bilateral knee replacement History of esophagogastroduodenoscopy (EGD) Hx of colonoscopy Hx of tonsillectomy Hx of cystoscopy w/stone basketing History of left nephrectomy History of spinal surgery Aortic valve replaced bioprosthesis, 2006 History of gastric bypass History of cholecystectomy Family History Mother Breast cancer Lung disease Grandmother (Maternal) Breast cancer Aunt Breast cancer Sister Breast cancer Father Myocardial infarction Arthritis Denies family history of Ovarian cancer Prostate cancer Colorectal cancer Social History Smoking Status: Never smoker Second Hand Exposure: No; Do You Dip or Chew Tobacco: No; Hx Alcohol Use: No Hx Substance Use: No Preferred Language: Yoruba Communication Ability: Effective Visual Impairment: No Limitations Hearing Ability: Normal Relations Mgr Required: No Beliefs That Will Affect Care: None marital status: Current Living Situation: Spouse and Family Current Living Situation Comment: Lives w/ , son lives in basement current occupational status: retired 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[employer] Feels Safe at Home: Yes Childhood Exposure to Second-Hand Smoke: Yes Diet: regular caffeine: Yes Dental Care, Regularly: Yes Physical Activity Frequency: Does not Exercise Physical Activity Frequency Comment: Physical activity limited due to medical conditions Seatbelt Use: always Sunscreen Use: No Do you think of yourself as: straight/heterosexual Gender Identity: Male Assistive Devices: Cane and Glasses Review of Systems Review of Systems: REVIEW OF SYSTEMS: Constitutional: No fever, sweats or chills Eyes: No diplopia, no worsening or blurred vision ENT: normal hearing, no trouble swallowing Respiratory: No cough, sputum, dyspnea at rest or on exertion Cardiovascular: (+) afib, No chest pain, tightness or palpitations Abdomen: (+) melena, blood in water, No pain, nausea, vomiting, Musculoskeletal:(+) knee joint pain, NO calf pain, swelling Neurologic: (+) dizziness, walks with cane, Skin: (+) brusises to arms, legs Physical Exam Physical Exam: PHYSICAL EXAM: General: awake, alert, no apparent distress Head: Normocephalic, atraumatic ENT: PERRLA, EOMI, no pharyngeal exudate, mucous membranes dry Neuro: AAO x 3, speech clear and appropriate, strength intact bilaterally 5/5, sensation intact and equal all extremities and dermatomes, no pronator drift Chest: equal rise and fall of the chest, no accessory muscle use, no heaves or thrills, Clear to auscultation, on 2LNC, Cardiac: Irregular rate and rhythm, telemetry reviewed- afib with no ectopy noted, skin warm dry, cap refill <3 seconds, peripheral pulses +2 no JVD, systolic murmur grade II RSB, , +2 edema bilateral feet and ankles, GI: NABS x 4 quadrants, soft, nontender to palpation, no rebound, guarding or tenderness : Talavera to gravity draining dilute yellow urine Psych: Normal mood and affect Skin:old bruising noted to arms, legs, and area on left upper buttocks Results & Data Results & Data Vital Signs (Past 12 Hours) Vital Signs Temp Pulse Pulse Resp BP BP Pulse Ox 05/14/24 18:26 36.6 C 82 20 83/53 L 92 05/14/24 18:24 83/53 L 98 05/14/24 18:21 36.6 C 05/14/24 17:55 97/62 L 05/14/24 17:55 97/62 L 05/14/24 17:50 36.7 C 91 H 24 87/56 L 98 05/14/24 17:39 83 26 H 100 05/14/24 17:35 36.9 C 101 H 19 92/51 L 98 05/14/24 17:35 36.9 C 101 H 19 85/54 L 05/14/24 17:35 36.7 C 99 H 19 85/54 L 100 05/14/24 17:33 94 H 21 100 05/14/24 17:33 85/54 L 05/14/24 17:33 85/54 L 05/14/24 17:33 85/54 L 05/14/24 17:30 89/52 L 05/14/24 17:27 81 33 H 98 05/14/24 17:25 92/54 L 05/14/24 17:25 92/54 L 05/14/24 17:24 87 23 100 05/14/24 17:17 36.8 C 84 18 92/41 L 100 05/14/24 17:05 92/41 L 05/14/24 17:05 92/41 L 05/14/24 17:03 93 H 25 H 100 05/14/24 17:01 79/51 L 05/14/24 17:01 79/51 L 05/14/24 17:01 79/51 L 05/14/24 17:01 79/51 L 05/14/24 17:00 99 H 21 100 05/14/24 16:54 90/37 L 05/14/24 16:54 90/37 L 05/14/24 16:50 36.8 C 96 H 19 79/42 L 98 05/14/24 16:35 36.5 C 97 H 18 81/48 L 95 05/14/24 16:33 90 21 73 L 05/14/24 16:30 81/48 L 05/14/24 16:30 81/48 L 05/14/24 16:30 81/48 L 05/14/24 16:30 81/48 L 05/14/24 16:30 81/48 L 05/14/24 16:30 88 36 H 100 05/14/24 16:27 99 H 05/14/24 16:21 89 29 H 100 05/14/24 16:21 76/53 L 05/14/24 16:21 76/53 L 05/14/24 16:21 76/53 L 05/14/24 16:20 36.9 C 100 H 22 76/53 L 95 05/14/24 16:13 109/72 05/14/24 16:13 109/72 05/14/24 16:09 101 H 34 H 100 05/14/24 16:05 36.8 C 94 H 18 100/57 L 100 05/14/24 16:00 96 H 23 94 05/14/24 15:38 100/61 05/14/24 15:38 100/61 05/14/24 15:36 95 H 30 H 86 L 05/14/24 15:31 79/42 L 05/14/24 15:24 83 33 H 100 05/14/24 15:17 78/55 L 05/14/24 15:17 78/55 L 05/14/24 15:15 93 H 21 05/14/24 15:00 85 30 H 72 L 05/14/24 15:00 91 H 22 78/55 L 95 05/14/24 14:30 89 16 05/14/24 14:30 94/77 L 05/14/24 14:30 94/77 L 05/14/24 13:45 103/70 05/14/24 13:45 103/70 05/14/24 13:42 89 25 H 51 L 05/14/24 13:30 83 21 67 L 05/14/24 13:30 86/57 L 05/14/24 13:30 86/57 L 05/14/24 13:01 93/44 L 05/14/24 13:00 98 H 23 05/14/24 12:54 91/56 L 05/14/24 12:51 92 H 29 H 05/14/24 12:43 95 05/14/24 12:30 36 H 05/14/24 12:28 92 H 05/14/24 12:27 88 33 H 05/14/24 11:47 36.2 C L 85 18 145/90 H 100 O2 Del Method O2 Flow Rate 05/14/24 18:26 2 05/14/24 18:24 05/14/24 18:21 05/14/24 17:55 05/14/24 17:55 05/14/24 17:50 2 05/14/24 17:39 05/14/24 17:35 2 05/14/24 17:35 05/14/24 17:35 2 05/14/24 17:33 05/14/24 17:33 05/14/24 17:33 05/14/24 17:33 05/14/24 17:30 05/14/24 17:27 05/14/24 17:25 05/14/24 17:25 05/14/24 17:24 05/14/24 17:17 05/14/24 17:05 05/14/24 17:05 05/14/24 17:03 05/14/24 17:01 05/14/24 17:01 05/14/24 17:01 05/14/24 17:01 05/14/24 17:00 05/14/24 16:54 05/14/24 16:54 05/14/24 16:50 2 05/14/24 16:35 05/14/24 16:33 05/14/24 16:30 05/14/24 16:30 05/14/24 16:30 05/14/24 16:30 05/14/24 16:30 05/14/24 16:30 05/14/24 16:27 05/14/24 16:21 05/14/24 16:21 05/14/24 16:21 05/14/24 16:21 05/14/24 16:20 05/14/24 16:13 05/14/24 16:13 05/14/24 16:09 05/14/24 16:05 05/14/24 16:00 05/14/24 15:38 05/14/24 15:38 05/14/24 15:36 05/14/24 15:31 05/14/24 15:24 05/14/24 15:17 05/14/24 15:17 05/14/24 15:15 05/14/24 15:00 05/14/24 15:00 Room Air 05/14/24 14:30 05/14/24 14:30 05/14/24 14:30 05/14/24 13:45 05/14/24 13:45 05/14/24 13:42 05/14/24 13:30 05/14/24 13:30 05/14/24 13:30 05/14/24 13:01 05/14/24 13:00 05/14/24 12:54 05/14/24 12:51 05/14/24 12:43 Room Air 05/14/24 12:30 05/14/24 12:28 05/14/24 12:27 05/14/24 11:47 Room Air Laboratory Results Abnormal lab results 05/14/24 05/14/24 05/14/24 Range/Units 12:06 13:25 14:10 RBC 3.33 L (4.70-6.10) M/uL Hgb 8.4 L 7.6 L (14.0-18.0) g/dl Hct 27.3 L 24.9 L (42.0-52.0) % MCHC 30.8 L (32.0-36.0) g/dL RDW Std Deviation 52.7 H (36.4-46.3) fL RDW Coeff of Sarah 17.7 H (11.5-14.5) % BUN 82 H (6-23) mg/dl Creatinine 2.52 H (0.6-1.4) mg/dl BUN/Creatinine Ratio 32.5 H (10-20) Magnesium 2.5 H (1.7-2.4) mg/dl Troponin I High Sens 20.1 H (0-20) pg/ml Albumin 3.2 L (3.4-5.0) gm/dl Nasal Screen MRSA (PCR) (Negative) POC Stool Occult Blood Positive A (Negative) Crossmatch See Detail 05/14/24 Range/Units Unknown RBC (4.70-6.10) M/uL Hgb (14.0-18.0) g/dl Hct (42.0-52.0) % MCHC (32.0-36.0) g/dL RDW Std Deviation (36.4-46.3) fL RDW Coeff of Sarah (11.5-14.5) % BUN (6-23) mg/dl Creatinine (0.6-1.4) mg/dl BUN/Creatinine Ratio (10-20) Magnesium (1.7-2.4) mg/dl Troponin I High Sens (0-20) pg/ml Albumin (3.4-5.0) gm/dl Nasal Screen MRSA (PCR) Positive A (Negative) POC Stool Occult Blood (Negative) Crossmatch Diagnostic Findings Abdomen/Pelvis CT 05/14/24 12:27 CT OF THE ABDOMEN AND PELVIS WITHOUT CONTRAST CLINICAL HISTORY: bloody stool, 1 kidney, xarelto COMPARISON STUDY: CT of the abdomen and pelvis January 27, 2024. TECHNIQUE: Axial images of the abdomen and pelvis were obtained without IV contrast. Images were reviewed in the axial, sagittal, and coronal planes. Automated exposure control was utilized for the study. A dose lowering technique was utilized adhering to the principles of ALARA. FINDINGS: No pneumatosis, free air or portal venous gas is present. There is no evidence for a bowel obstruction status post Kd-en-Y gastric bypass. There is no biliary ductal dilatation status post cholecystectomy. Hypodense hepatic lesions are unchanged and favor cysts. Spleen and adrenal glands are unremarkable. Left kidney is surgically absent. A 1.4 cm hyperdense nodule adjacent to the lower pole of the right kidney is unchanged. This could represent a proteinaceous cyst or less likely a small solid renal lesion. There is no lymphadenopathy. Slight prominence of the right collecting system without hydronephrosis. No bowel wall thickening is identified on unenhanced exam. This colonic diverticulosis without evidence for acute diverticulitis. No bowel wall thickening is identified on unenhanced study. The appendix is normal. IMPRESSION: 1. No acute process within the abdomen or pelvis on unenhanced exam. 2. Colonic diverticulosis. No evidence for acute diverticulitis. No bowel obstruction. No bowel wall thickening on unenhanced exam. 3. Status post Kd-en-Y gastric bypass. 4. No abnormality within the left nephrectomy bed. ACT 112: Negative or not required by law. Electronically signed by: Eddy Bashir M.D. 05/14/2024 1:08 PM Chest X-Ray 05/14/24 13:09 HISTORY: GI bleed. TECHNIQUE: Portable AP radiographs of the chest. COMPARISON: None. FINDINGS: No focal lung consolidation. No pneumothorax or pleural effusion. Cardiomegaly is mild. Postsurgical changes of median sternotomy. Left-sided aortic arch. Midline trachea. No acute osseous abnormality. Right upper quadrant surgical clips consistent with cholecystectomy. IMPRESSION: 1. No acute cardiopulmonary findings. 2. Mild cardiomegaly. Electronically signed by Sumeet Hanson 05-14-2024 2:14 PM Abdomen/Pelvis CTA 05/14/24 20:29 Exam(s): CTA ABDOMEN + PELVIS With Contrast IV Amt: OPTIRAY 320 119ML EXAM: CT Angiography Abdomen and Pelvis With Intravenous Contrast CLINICAL HISTORY: eval for acute hemorrhage- GI Bleed suspected. TECHNIQUE: Axial computed tomographic angiography images of the abdomen and pelvis with intravenous contrast. CTDI is 28.5 mGy and DLP is 1337.39 mGy-cm. Automated exposure control was utilized for the study. A dose lowering technique was utilized adhering to the principles of ALARA. 3D and MIP reconstructed images were created and reviewed. CONTRAST: Patient received OPTIRAY 320 119ML of IV contrast COMPARISON: CT Abdomen Pelvis 05-14-2024. FINDINGS: VASCULATURE: Aorta: Mild diffuse atherosclerotic plaque within a high-grade stenosis. No abdominal aortic aneurysm. No dissection. Celiac trunk and mesenteric arteries: Mild calcified plaque at the origin of the celiac artery and superior mesenteric arteries with intact distal runoff. Intact inferior mesenteric artery. Renal arteries: Single right renal artery. Right renal artery unremarkable. Status post left nephrectomy. No occlusion or significant stenosis. Iliac arteries: No acute abnormality. No occlusion or significant stenosis. Lung bases: Small right pleural effusion. Mild bibasilar atelectasis. Cardiomegaly. ABDOMEN: Liver: Hypodense/fatty. No mass. Gallbladder and bile ducts: Post cholecystectomy. No ductal dilation. Pancreas: Unremarkable. No ductal dilation. No mass. Spleen: Unremarkable. No splenomegaly. Adrenals: Unremarkable. No mass. Kidneys and ureters: Status post left nephrectomy. Right renal cysts. Stomach and bowel: Gastric sutures. No bowel obstruction or ileus. Abundant stool throughout the colon. Few distal left and sigmoid colon diverticuli without evidence for diverticulitis. No contrast extravasation within bowel to indicate active hemorrhage. PELVIS: Appendix: No findings to suggest acute appendicitis. Bladder: Talavera catheter within the partially contracted urinary bladder. No mass. Reproductive: Unremarkable as visualized. ABDOMEN and PELVIS: Intraperitoneal space: Unremarkable. No significant fluid collection. No free air. Bones/joints: No acute fracture. Levoscoliosis with degenerative changes. Soft tissues: Unremarkable. Lymph nodes: Unremarkable. No enlarged lymph nodes. IMPRESSION: No evidence for active contrast extravasation within bowel. Distal left and sigmoid colon diverticulosis without evidence for acute diverticulitis. Mild diffuse atherosclerotic plaque throughout the abdominal aorta and major branches without high-grade stenosis or occlusion. Otherwise no change. Electronically signed by: Levi Penn M.D. 05/14/24 22:26 PM Medications Administered Midodrine (Midodrine Hcl 10 Mg Tab) 10 mg PO TID@0800,1200,1700 BEHZAD Stop: 06/13/24 16:59 Last Admin: 05/14/24 18:22 Dose: Not Given Documented By: WS Discontinued Medications Sodium Chloride (Nss) 500 mls @ 999 mls/hr IV .Q31M ONE Stop: 05/14/24 12:55 Last Infusion: 05/14/24 13:13 Dose: Infused Documented By: Admin: 05/14/24 12:35 Dose: 999 mls/hr Documented By: AM Pantoprazole Sodium 80 mg/ (Dextrose) 120 mls @ 400 mls/hr IV NOW ONE Stop: 05/14/24 12:42 Last Infusion: 05/14/24 13:13 Dose: Infused Documented By: Admin: 05/14/24 12:50 Dose: 400 mls/hr Documented By: TRUDYE Famotidine (Pepcid 20mg Iv Push) 20 mg in 5 mls @ 2.5 mls/min IV NOW STA Stop: 05/14/24 12:26 Last Admin: 05/14/24 12:35 Dose: 2.5 mls/min Documented By: AM Prothrombin Complex Concent ( (Human) 2,000 units/ Syringe) 80 mls @ 10 mls/min IV NOW ONE; Protocol Stop: 05/14/24 13:22 Last Admin: 05/14/24 13:51 Dose: 10 mls/min Documented By: AM Sodium Chloride (Nss) 500 mls @ 999 mls/hr IV .Q31M ONE Stop: 05/14/24 15:54 Last Infusion: 05/14/24 16:40 Dose: Infused Documented By: Admin: 05/14/24 16:11 Dose: 500 mls/hr Documented By: BS Calcium Gluconate () 1,000 mg in 60 mls @ 240 mls/hr IV NOW STA Stop: 05/14/24 17:47 Last Admin: 05/14/24 18:50 Dose: 240 mls/hr Documented By: WS ECG Additional Comments: Atrial fibrillation Nonspecific ST and T wave abnormality Abnormal ECG When compared with ECG [id number] 05:15, ST less depressed inAnterior leads Nonspecific T wave abnormality has replaced inverted T waves inInferior leads T wave inversion no longer evident inAnterior leads Confirmed by Taco Cabrera ([id number]) on 05/14/2024 3:55:13 PM Coding Level of Care Code 15071 CRITICAL CARE 1ST 30-74M Diagnoses Acute GI bleeding K92.2 Hypovolemic shock R57.1 Permanent atrial fibrillation with RVR I48.21 DEONNA (acute kidney injury) N17.9
[2024-05-14] MEDS: CALCIUM GLUCONATE 1,000 MG/60 ML BAG IV STA (18:50)
[2024-05-14] MEDS ORDERED: ROCURONIUM BROMIDE 10 MG/ML 5 ML VIAL IV ONE (18:58)
[2024-05-14] MEDS ORDERED: PROPOFOL IV EMULSION 10 MG/ML 20 ML VIAL IV ONE (18:58)
[2024-05-14] MEDS ORDERED: LIDOCAINE 2% 2 ML VIAL/AMP(20MG/ML) INFIL ONE (18:58)
[2024-05-14] MEDS ORDERED: ONDANSETRON INJ 2 MG/ML 2 ML VIAL ONE (18:58)
[2024-05-14] MEDS ORDERED: DEXAMETHASONE SOD INJ 4 MG/ML VIAL ONE (18:58)
[2024-05-14] MEDS ORDERED: GLYCOPYRROLATE 0.2 MG/ML VIAL ONE (18:58)
[2024-05-14] MEDS ORDERED: NEOSTIGMINE METHYLSULFATE 1 MG/ML 10ML VIAL ONE (18:58)
[2024-05-14] MEDS ORDERED: fentaNYL citrate PF 100 MCG/2 ML VIAL ONE (18:59)
[2024-05-14] MEDS ORDERED: VASOPRESSIN 20 UNIT/ML VIAL ONE (19:00)
[2024-05-14] MEDS ORDERED: ETOMIDATE 2 MG/ML 20 ML VIAL IV ONE (19:02)
[2024-05-14] MEDS ORDERED: SUCCINYLCHOLINE CHLORIDE 20 MG/ML 10 ML VIAL IV ONE (19:03)
--- NOTE | 2024-05-14 19:19 | Procedure Note ---
Procedure Note Date of Service May 14, 2024 Procedure: Arterial Line Placement Proceduralist: Andrea ELENA ([facility] Attending: Dr. GLASS Indication: Hemodynamic monitoring, on vasopressors, frequent blood draws Anesthesia: x Lidocaine 1% Consent was obtained as delegated to me by Dr. Glass. It is signed and placed on the chart prior to procedure. Indication, risks, and benefits were explained at length, no questions voiced by patient or his . A time-out was completed verifying correct patient, procedure, site, positioning, and implant(s). Allens test was performed to ensure adequate perfusion. Ultrasound guidance was used to workforce development vice president the vessel, artery was identified minimally compressible and pulsatile with no evidence of thrombus noted. The Patients RIGHT wrist was prepped and draped in the usual sterile fashion. Ultrasound was then used to aid real-time needle placement. A 20g Arrow arterial line was introduced into the RIGHT RADIAL artery x1 attempt. Brisk blood flash was noted, the wire was advanced without resistance, the catheter was threaded easily and the needle was removed with appropriate blood return. Pressure tubing was attached and a good arterial waveform was observed. The line was then sutured in place and sterile dressing was applied. The patient tolerated the procedure well and no immediate complications were noted. Blood Loss: Minimal Complications: None Immediate Artery Identified: YES Complications: NONE Patient tolerated procedure: [facility] [place] Procedure Codes (Charges) Tubes, Drains, and Vasc Access Procedure 1: Tubes, Drains, and Vasc Access: [id number] Arterial Cath/Cannulation Sampling/Monitoring/Transfusion Coding CPT Codes Tubes, Drains, and Vasc Access - Tubes, Drains, and Vasc Access: [id number] Arterial Cath/Cannulation Sampling/Monitoring/Transfusion ([id number]) Additional Codes Date of Service ([email or web address].SURGERY)
[2024-05-14] MEDS ORDERED: PHENYLEPHRINE HCL 10 MG/ML VIAL ONE (19:35)
[2024-05-14] MEDS ORDERED: SUGAMMADEX SODIUM 200 MG/2 ML VIAL IV ONE (19:37)
--- NOTE | 2024-05-14 19:53 | Communication Note ---
Date of Service: May 14, 2024 EGD No blood in the upper GI tract. Juan-en-Y gastric bypass. Anastomosis clean. Some suture and staple material. Scope passed full length down the Juan loop. No blood seen. Brisk bleed with hypotension high BUN to creatinine ratio consistent with an upper GI bleed. Concern is for a bleed in the extruded stomach. Gastro renal artery suspect. Would benefit from IR. Will discuss with the pattern storage clerk. Potentially transfer for that service. This does not appear to be colonic. No red blood or clots. Also the marked elevation of BUN not typical of a lower GI bleed. Nor is the significant hypotension.
--- NOTE | 2024-05-14 19:59 | GI REPORT ---
[facility] Patient: MYESHA TRAN : 1940 Sex at : Male Age: 84 Years Procedure: Upper GI endoscopy Date: 05/14/2024 Attending Physician: Ben King MD Referring MD: Referred Self; Vargas Fernandez MD Indications: - Suspected upper gastrointestinal bleeding - Melena - Acute post hemorrhagic anemia Medications: - General Anesthesia Complications: - No immediate complications. Estimated Blood Loss: - Estimated blood loss: None. Procedure: - The egd scope was introduced through the mouth and advanced to the jejunum. - The upper GI endoscopy was accomplished without difficulty. - The patient tolerated the procedure well. Findings: - The examined esophagus was normal. - Evidence of a gastric bypass was found in the gastric fundus. This was characterized by healthy appearing mucosa. - Scope passed full length down the Juan loop. Anastomosis not reach. No blood seen in the entirety of the upper GI tract. Impression: - Normal esophagus. - A gastric bypass was found, characterized by healthy appearing mucosa. - Scope passed full length down the Juan loop. Anastomosis not reach. No blood seen in the entirety of the upper GI tract. - No specimens collected. - Strongly suspect bleeding from the extruded stomach. The briskness of the bleed with secondary hypertension melanotic stool and high BUN to creatinine ratio are consistent with an upper GI bleed. Suspect probable duodenal ulcer with potential gastroduodenal artery involvement. At this point CTA with IR backup for potential embolization I believe is the best course here. IR is not available at this institution. Will review with the housing relocation. Recommendation: Procedure Code(s): - 71018, Esophagogastroduodenoscopy, flexible, transoral; diagnostic, including collection of specimen(s) by brushing or washing, when performed (separate procedure) Diagnosis Code(s): - K92.1, Melena (includes Hematochezia) - D62, Acute posthemorrhagic anemia - Z98.84, Bariatric surgery status CPT(R) - 202 copyright [employer]. All Rights Reserved. The CPT codes, CCI edits and ICD codes generated are intended as suggestions and were generated based on input data. These codes are preliminary and upon workers' compensation commissioner review may be revised to meet current compliance and payer requirements. The provider is responsible for the final determination of appropriate codes, and modifiers. Ben King MD This document has been electronically signed. Note Initiated:05/14/2024 Note Completed:05/14/2024 7:58 PM \\[email or web address]\[email or web address]\[id number]
[2024-05-14] MEDS ORDERED: Nursing to Pharmacy Communication SCH (20:15)
[2024-05-14] MEDS: NOREPINEPHRINE/D5W 4 MG/250 ML PLCT IV SCH (20:36)
[2024-05-14] MEDS: PANTOprazole 40 MG in DEXTROSE 5% MINI-B 100 ML IV SCH (20:36)
[2024-05-14 20:43] LABS: Hematocrit (blood only) 28.2 % (42.0-52.0)
[2024-05-14] MEDS ORDERED: ICU Protocol for HYPERglycemia SCH (21:00)
[2024-05-14] MEDS ORDERED: PANTOprazole 40 MG/10 ML SYR IV SCH (21:00)
[2024-05-14 21:04] LABS: Fibrinogen 279 mg/dl (184-400)
[2024-05-14] MEDS: OPTIRAY 320 125ml IV ONE (21:10)
[2024-05-14] MEDS: LACTATED RINGER'S 1,000 ML IV SCH (21:35)
--- NOTE | 2024-05-14 22:03 | Anesthesiology Progress Note ---
Date of Service May 14, 2024 Anesthesia Post Procedure Vital Signs Vital Signs: Temp Pulse Pulse Resp BP BP Pulse Ox 05/14/24 21:30 37.2 C 94 H 14 99 05/14/24 21:19 100/62 05/14/24 20:44 05/14/24 20:39 37.3 C 98 H 4 L 97 05/14/24 20:30 37.3 C 91 H 22 96 05/14/24 20:12 36.9 C 92 H 21 109/62 98 05/14/24 20:06 86 18 94 05/14/24 20:02 36.9 C 90 20 102/46 L 99 05/14/24 20:00 90 91/53 L 05/14/24 19:58 96/61 L 05/14/24 19:52 36.9 C 90 20 111/46 L 96 05/14/24 19:42 129/101 H 05/14/24 19:42 129/101 H 05/14/24 19:39 109/55 L 05/14/24 19:39 109/55 L 05/14/24 19:39 81 10 L 75 L 05/14/24 19:37 142/43 H 05/14/24 19:23 89/60 L 05/14/24 19:19 37.3 C 93 H 25 H 114/53 L 98 05/14/24 19:17 37.3 C 93 H 25 H 114/53 L 98 05/14/24 19:16 37.3 C 93 H 25 H 114/53 L 98 05/14/24 19:12 37.2 C 103 H 20 98 05/14/24 19:06 37.3 C 114 H 25 H 98 05/14/24 19:00 86/61 L 05/14/24 18:55 94 H 05/14/24 18:54 37.2 C 96 H 23 97 05/14/24 18:51 37.2 C 89 22 97 05/14/24 18:38 05/14/24 18:30 108/71 05/14/24 18:26 36.6 C 82 20 83/53 L 92 05/14/24 18:24 83/53 L 98 05/14/24 18:21 36.6 C 05/14/24 18:20 36.8 C 98 H 20 108/71 98 05/14/24 17:55 97/62 L 05/14/24 17:55 97/62 L 05/14/24 17:50 36.7 C 91 H 24 87/56 L 98 05/14/24 17:39 83 26 H 100 05/14/24 17:35 36.9 C 101 H 19 92/51 L 98 05/14/24 17:35 36.9 C 101 H 19 85/54 L 05/14/24 17:35 36.7 C 99 H 19 85/54 L 100 05/14/24 17:33 94 H 21 100 05/14/24 17:33 85/54 L 05/14/24 17:33 85/54 L 05/14/24 17:33 85/54 L 05/14/24 17:30 89/52 L 05/14/24 17:27 81 33 H 98 05/14/24 17:25 92/54 L 05/14/24 17:25 92/54 L 05/14/24 17:24 87 23 100 05/14/24 17:17 36.8 C 84 18 92/41 L 100 05/14/24 17:05 92/41 L 05/14/24 17:05 92/41 L 05/14/24 17:03 93 H 25 H 100 05/14/24 17:01 79/51 L 05/14/24 17:01 79/51 L 05/14/24 17:01 79/51 L 05/14/24 17:01 79/51 L 05/14/24 17:00 99 H 21 100 05/14/24 16:54 90/37 L 05/14/24 16:54 90/37 L 05/14/24 16:50 36.8 C 96 H 19 79/42 L 98 05/14/24 16:35 36.5 C 97 H 18 81/48 L 95 05/14/24 16:33 90 21 73 L 05/14/24 16:30 81/48 L 05/14/24 16:30 81/48 L 05/14/24 16:30 81/48 L 05/14/24 16:30 81/48 L 05/14/24 16:30 81/48 L 05/14/24 16:30 88 36 H 100 05/14/24 16:27 99 H 05/14/24 16:21 89 29 H 100 05/14/24 16:21 76/53 L 05/14/24 16:21 76/53 L 05/14/24 16:21 76/53 L 05/14/24 16:20 36.9 C 100 H 22 76/53 L 95 05/14/24 16:13 109/72 05/14/24 16:13 109/72 05/14/24 16:09 101 H 34 H 100 05/14/24 16:05 36.8 C 94 H 18 100/57 L 100 05/14/24 16:00 96 H 23 94 05/14/24 15:38 100/61 05/14/24 15:38 100/61 05/14/24 15:36 95 H 30 H 86 L 05/14/24 15:31 79/42 L 05/14/24 15:24 83 33 H 100 05/14/24 15:17 78/55 L 05/14/24 15:17 78/55 L 05/14/24 15:15 93 H 21 05/14/24 15:00 85 30 H 72 L 05/14/24 15:00 91 H 22 78/55 L 95 05/14/24 14:30 89 16 05/14/24 14:30 94/77 L 05/14/24 14:30 94/77 L 05/14/24 13:45 103/70 05/14/24 13:45 103/70 05/14/24 13:42 89 25 H 51 L 05/14/24 13:30 83 21 67 L 05/14/24 13:30 86/57 L 05/14/24 13:30 86/57 L 05/14/24 13:01 93/44 L 05/14/24 13:00 98 H 23 05/14/24 12:54 91/56 L 05/14/24 12:51 92 H 29 H 05/14/24 12:43 95 05/14/24 12:30 36 H 05/14/24 12:28 92 H 05/14/24 12:27 88 33 H 05/14/24 11:47 36.2 C L 85 18 145/90 H 100 O2 Del Method O2 Flow Rate 05/14/24 21:30 05/14/24 21:19 05/14/24 20:44 Oxymask 2 05/14/24 20:39 05/14/24 20:30 05/14/24 20:12 Oxymask 4 05/14/24 20:06 05/14/24 20:02 Oxymask 4 05/14/24 20:00 05/14/24 19:58 05/14/24 19:52 Oxymask 6 05/14/24 19:42 05/14/24 19:42 05/14/24 19:39 05/14/24 19:39 05/14/24 19:39 05/14/24 19:37 05/14/24 19:23 05/14/24 19:19 2 05/14/24 19:17 2 05/14/24 19:16 2 05/14/24 19:12 05/14/24 19:06 05/14/24 19:00 05/14/24 18:55 05/14/24 18:54 05/14/24 18:51 05/14/24 18:38 Nasal Cannula 2 05/14/24 18:30 05/14/24 18:26 2 05/14/24 18:24 05/14/24 18:21 05/14/24 18:20 2 05/14/24 17:55 05/14/24 17:55 05/14/24 17:50 2 05/14/24 17:39 05/14/24 17:35 2 05/14/24 17:35 05/14/24 17:35 2 05/14/24 17:33 05/14/24 17:33 05/14/24 17:33 05/14/24 17:33 05/14/24 17:30 05/14/24 17:27 05/14/24 17:25 05/14/24 17:25 05/14/24 17:24 05/14/24 17:17 05/14/24 17:05 05/14/24 17:05 05/14/24 17:03 05/14/24 17:01 05/14/24 17:01 05/14/24 17:01 05/14/24 17:01 05/14/24 17:00 05/14/24 16:54 05/14/24 16:54 05/14/24 16:50 2 05/14/24 16:35 05/14/24 16:33 05/14/24 16:30 05/14/24 16:30 05/14/24 16:30 05/14/24 16:30 05/14/24 16:30 05/14/24 16:30 05/14/24 16:27 05/14/24 16:21 05/14/24 16:21 05/14/24 16:21 05/14/24 16:21 05/14/24 16:20 05/14/24 16:13 05/14/24 16:13 05/14/24 16:09 05/14/24 16:05 05/14/24 16:00 05/14/24 15:38 05/14/24 15:38 05/14/24 15:36 05/14/24 15:31 05/14/24 15:24 05/14/24 15:17 05/14/24 15:17 05/14/24 15:15 05/14/24 15:00 05/14/24 15:00 Room Air 05/14/24 14:30 05/14/24 14:30 05/14/24 14:30 05/14/24 13:45 05/14/24 13:45 05/14/24 13:42 05/14/24 13:30 05/14/24 13:30 05/14/24 13:30 05/14/24 13:01 05/14/24 13:00 05/14/24 12:54 05/14/24 12:51 05/14/24 12:43 Room Air 05/14/24 12:30 05/14/24 12:28 05/14/24 12:27 05/14/24 11:47 Room Air Transfer of Care Handoff Completed per policy Notes Mental Status: alert / awake / arousable Patient Amnestic to Procedure: Yes Nausea / Vomiting: adequately controlled Pain: adequately controlled Airway Patency, RR, SpO2: stable & adequate BP & HR: stable & adequate Hydration State: stable & adequate Anesthetic Complications: no major complications apparent
--- NOTE | 2024-05-14 22:26 | CT Scan Report ---
Exam(s): CTA ABDOMEN + PELVIS With Contrast IV Amt: OPTIRAY 320 119ML EXAM: CT Angiography Abdomen and Pelvis With Intravenous Contrast CLINICAL HISTORY: eval for acute hemorrhage- GI Bleed suspected. TECHNIQUE: Axial computed tomographic angiography images of the abdomen and pelvis with intravenous contrast. CTDI is 28.5 mGy and DLP is 1337.39 mGy-cm. Automated exposure control was utilized for the study. A dose lowering technique was utilized adhering to the principles of ALARA. 3D and MIP reconstructed images were created and reviewed. CONTRAST: Patient received OPTIRAY 320 119ML of IV contrast COMPARISON: CT Abdomen Pelvis 05-14-2024. FINDINGS: VASCULATURE: Aorta: Mild diffuse atherosclerotic plaque within a high-grade stenosis. No abdominal aortic aneurysm. No dissection. Celiac trunk and mesenteric arteries: Mild calcified plaque at the origin of the celiac artery and superior mesenteric arteries with intact distal runoff. Intact inferior mesenteric artery. Renal arteries: Single right renal artery. Right renal artery unremarkable. Status post left nephrectomy. No occlusion or significant stenosis. Iliac arteries: No acute abnormality. No occlusion or significant stenosis. Lung bases: Small right pleural effusion. Mild bibasilar atelectasis. Cardiomegaly. ABDOMEN: Liver: Hypodense/fatty. No mass. Gallbladder and bile ducts: Post cholecystectomy. No ductal dilation. Pancreas: Unremarkable. No ductal dilation. No mass. Spleen: Unremarkable. No splenomegaly. Adrenals: Unremarkable. No mass. Kidneys and ureters: Status post left nephrectomy. Right renal cysts. Stomach and bowel: Gastric sutures. No bowel obstruction or ileus. Abundant stool throughout the colon. Few distal left and sigmoid colon diverticuli without evidence for diverticulitis. No contrast extravasation within bowel to indicate active hemorrhage. PELVIS: Appendix: No findings to suggest acute appendicitis. Bladder: Talavera catheter within the partially contracted urinary bladder. No mass. Reproductive: Unremarkable as visualized. ABDOMEN and PELVIS: Intraperitoneal space: Unremarkable. No significant fluid collection. No free air. Bones/joints: No acute fracture. Levoscoliosis with degenerative changes. Soft tissues: Unremarkable. Lymph nodes: Unremarkable. No enlarged lymph nodes. IMPRESSION: No evidence for active contrast extravasation within bowel. Distal left and sigmoid colon diverticulosis without evidence for acute diverticulitis. Mild diffuse atherosclerotic plaque throughout the abdominal aorta and major branches without high-grade stenosis or occlusion. Otherwise no change. Electronically signed by: Levi Penn M.D. 05/14/24 22:26 PM
[2024-05-15 01:10] LABS: Hematocrit (blood only) 27.3 % (42.0-52.0); Hemoglobin 8.6 g/dl (14.0-18.0)
[2024-05-15 05:34] LABS: Basophils # (auto) 0.06 K/uL (0.00-0.20); Basophils % (auto) 0.8 %; Eosinophils # (auto) 0.16 K/uL (0.00-0.50); Eosinophils % (auto) 2.2 %; Hematocrit (blood only) 27.4 % (42.0-52.0); Hemoglobin 8.7 g/dl (14.0-18.0); Immature Granulocytes # (auto) 0.03 K/uL (0.01-0.20); Immature Granulocytes % (auto) 0.4 %; Lymphocytes # (auto) 1.28 K/uL (1.20-3.40); Lymphocytes % (auto) 17.2 %; Mean Corpuscular Hgb Conc 31.8 g/dL (32.0-36.0); Mean Corpuscular Volume 81.8 fL (80.0-100.0); Monocytes % (auto) 10.8 %; Neutrophils % (auto) 68.6 %; Platelet Count 146 K/uL (130-400); RDW Coefficient of Variation 17.3 % (11.5-14.5); RDW Standard Deviation 50.4 fL (36.4-46.3); Red Blood Count 3.35 M/uL (4.70-6.10); White Blood Count 7.43 K/ul (4.8-10.8)
[2024-05-15 06:24] LABS: BUN Creatinine Ratio 32.2 (10-20); Calcium 8.8 mg/dl (8.6-10.3); Creatinine Clr Calc Pharmacy 26.5 ml/min; Magnesium 2.4 mg/dl (1.7-2.4); Potassium 3.6 mmol/L (3.5-5.1)
--- NOTE | 2024-05-15 09:14 | Critical Care Consultation ---
Date of Consultation May 15, 2024 Assessment & Plan (1) Acute GI bleeding: (2) Hypovolemic shock: (3) Permanent atrial fibrillation with RVR: (4) DEONNA (acute kidney injury): Plan Reason Critically Ill: 84 YOM present with GI bleed unspecified source, now in hemorrhagic shock- taken urgently to OR for EGD - no source of bleeding found in pouch/loop. Recommend transfer to tertiary care center for IR availability. Neuro - No acute needs CAM ICU: Negative - follow post sedation recovery Cardiac -hemorrhagic shock in a patient on midodrine in the outpatient setting for chronically low blood pressure. Now resolved. Off vasopressor agents. Holding midodrine as the patient is n.p.o. currently. Multiple cardiac issues. Holding anticoagulation Respiratory -oxygen as needed to maintain saturations at or above 90%. Incentive spirometry. Nightly BiPAP GI - Acute GI bleed. Endoscopy unable to completely visualize or localize sites of bleeding. CT angiogram did not show active extravasation. Hemoglobin relatively stable. If the patient continues to demonstrate ongoing bleeding, he would be transferred to [facility] for additional evaluation. GI does not think additional efforts at endoscopy here will be fruitful. May require IR or tagged scan if bleeding unable to be localized. N.p.o. for now pending repeat GI evaluation. Continue serial hemoglobin and hematocrit RENAL/LYTES - DEONNA on CKD, Hx of renal cell carcinoma with left nephrectomy, at risk for worsening given recent contrast administration. Continue to trend. Acid-base status acceptable. Holding diuretics. - No acute needs at this time - Talavera to trend urine output ENDO -glycemic control per ICU protocol HEME -acute blood loss anemia. Status post PCC. Holding anticoagulation. Serial hemoglobin and hematocrit. ID - No concern at this time for infectious etiology LINES/IV ACCESS - PIV x4, Talavera, Arterial Line Continue use of these lines DVT PROPHYLAXIS - SCDS, Hold chemoprophylaxis in setting of hemorrhagic shock DISPO: ICU pending stabilization of hemoglobin. Long-term plan is that if he demonstrates rebleeding, transfer to tertiary facility. If stable, can likely transfer to the floor in the next 24 hours. Difficult to ascertain timing for restarting anticoagulation but the patient is at high risk given his cardiovascular comorbidities. As were not able to localize the source of bleeding to determine risk of rebleed, timing of full anticoagulation may be somewhat problematic. History of Present Illness Attending Physician: Shelia Frank MD History of Present Illness Patient seen and examined. EMR reviewed. Discussed on multidisciplinary rounds and with bedside critical care nurse. The patient offers no complaints today. He denies any abdominal pain. No nausea or vomiting. He is not had any hematemesis overnight. He continues to have melanotic stools. Hemoglobin has been stable and he has been able to be weaned off of vasopressor agents overnight. Allergies Allergy/AdvReac Type Severity Reaction Status Date / Time iron [From Venofer] AdvReac Mild Vomiting Verified 04/14/24 08:57 Iodinated Contrast Media AdvReac Unknown PT ONLY Verified 04/14/24 08:57 [Iodinated Contrast- Oral HAS 1 and IV Dye] KIDNEY, CONTRAINDICATED. Home Medications Medication Instructions Recorded Confirmed Type amoxicillin 500 mg tablet 2,000 mg PO DIRECTED PRN 1 HOUR 11/16/18 05/14/24 History PRIOR TO DENTAL PROCEDURES cholecalciferol (vitamin D3) 50 50 mcg PO DAILY 07/10/22 05/14/24 History mcg (2,000 unit) capsule (Vitamin D3) magnesium 250 mg tablet 250 mg PO HS 07/10/22 05/14/24 History cyanocobalamin (vitamin B-12) 1,000 mcg IM Q90D #30 mL 09/23/22 05/14/24 Rx 1,000 mcg/mL injection solution metolazone 5 mg tablet 5 mg PO DAILY PRN weight gain #30 10/23/22 05/14/24 Rx tabs Portable Oxygen #1 ea 05/25/23 05/13/24 Rx tamoxifen 20 mg tablet 20 mg PO QAM 12/22/23 05/14/24 History docusate sodium 100 mg capsule 100 mg PO DAILY PRN constipation 02/08/24 05/14/24 Rx #0 caps allopurinol 100 mg tablet 50 mg PO QAM 03/03/24 05/14/24 History calcitriol 0.25 mcg capsule 0.5 mcg (2 x 0.25 mcg) PO QAM #180 04/01/24 05/14/24 Rx caps rivaroxaban 15 mg tablet 15 mg PO HS #90 tabs 04/01/24 05/14/24 Rx tramadol 50 mg tablet 50 mg PO BID PRN Pain #60 tabs 04/01/24 05/14/24 Rx midodrine 10 mg tablet 10 mg PO TID@0800,1200,1700 #270 04/04/24 05/14/24 Rx tabs aspirin 81 mg chewable tablet 81 mg PO DAILY 05/13/24 05/14/24 History cyclobenzaprine 5 mg tablet 5 mg PO BID PRN muscle 05/13/24 05/14/24 History pain/stiffness metoprolol succinate 100 mg 100 mg PO BID 05/13/24 05/14/24 History tablet,extended release 24 hr (Toprol XL) potassium chloride 10 mEq 20 meq PO BID 05/13/24 05/14/24 History capsule,extended release torsemide 100 mg tablet 100 mg PO BID 05/13/24 05/14/24 History Patient History Medical History Congestive heart failure Chronic dental pain Hypotension Chronic renal insufficiency, stage IV (severe) Iron deficiency anemia Obstructive sleep apnea BIPAP Diabetes mellitus Aspiration into respiratory tract Acute kidney injury superimposed on CKD Morbid obesity History of anxiety Hx of gout Hx of rotator cuff tear Difficulty with raising arms without extreme pain, currently in PT Hx of osteoarthritis Hx of impacted cerumen History of COVID-19 01/2021 > "mild" cold symptoms, resolved Prediabetes Kidney stones Hx x7 Renal cell adenocarcinoma s/p nephrectomy Chronic kidney disease, stage III (moderate) CKD (chronic kidney disease), stage III Surgical History H/O aortic valve replacement Hx of cardiac catheterization 11/2020 > no stents History of total bilateral knee replacement History of esophagogastroduodenoscopy (EGD) Hx of colonoscopy Hx of tonsillectomy Hx of cystoscopy w/stone basketing History of left nephrectomy History of spinal surgery Aortic valve replaced bioprosthesis, 2006 History of gastric bypass History of cholecystectomy Family History Mother Breast cancer Lung disease Grandmother (Maternal) Breast cancer Aunt Breast cancer Sister Breast cancer Father Myocardial infarction Arthritis Denies family history of Ovarian cancer Prostate cancer Colorectal cancer Social History Smoking Status: Never smoker Second Hand Exposure: No; Do You Dip or Chew Tobacco: No; Hx Alcohol Use: No Hx Substance Use: No Preferred Language: Nepalese Communication Ability: Effective Visual Impairment: No Limitations Hearing Ability: Normal 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 Beliefs That Will Affect Care: None marital status: Current Living Situation: Spouse and Family Current Living Situation Comment: Lives w/ , son lives in basement current occupational status: retired 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[employer] Feels Safe at Home: Yes Childhood Exposure to Second-Hand Smoke: Yes Diet: regular caffeine: Yes Dental Care, Regularly: Yes Physical Activity Frequency: Does not Exercise Physical Activity Frequency Comment: Physical activity limited due to medical conditions Seatbelt Use: always Sunscreen Use: No Do you think of yourself as: straight/heterosexual Gender Identity: Male Assistive Devices: Cane and Glasses Review of Systems Review of Systems: All systems reviewed & are unremarkable except as noted in Subjective Physical Exam Physical Exam: PHYSICAL EXAM: General: awake, alert, no apparent distress Head: Normocephalic, atraumatic ENT: PERRLA, EOMI, no pharyngeal exudate, mucous membranes dry Neuro: AAO x 3, speech clear and appropriate, strength intact bilaterally 5/5, sensation intact and equal all extremities and dermatomes, no pronator drift Chest: equal rise and fall of the chest, no accessory muscle use, no heaves or thrills, Clear to auscultation, on 2LNC, Cardiac: Irregular rate and rhythm, telemetry reviewed- afib with no ectopy noted, skin warm dry, cap refill <3 seconds, peripheral pulses +2 no JVD, systolic murmur grade II RSB, , +2 edema bilateral feet and ankles, GI: NABS x 4 quadrants, soft, nontender to palpation, no rebound, guarding or tenderness : Talavera to gravity draining dilute yellow urine Psych: Normal mood and affect Skin:old bruising noted to arms, legs, and area on left upper buttocks Results & Data Results & Data Vital Signs (Past 12 Hours) Vital Signs Temp Pulse Resp BP Pulse Ox 05/15/24 08:00 92 H 05/15/24 07:30 36.5 C 92 H 24 95 05/15/24 07:15 36.6 C 89 18 100 05/15/24 07:12 36.6 C 74 20 100 05/15/24 07:00 100/59 L 05/15/24 06:12 36.6 C 80 11 L 100 05/15/24 06:03 36.7 C 80 14 100 05/15/24 06:00 95/62 L 05/15/24 05:51 36.7 C 72 17 100 05/15/24 05:45 36.7 C 74 13 99 05/15/24 05:33 36.7 C 79 16 99 05/15/24 05:32 84/59 L 05/15/24 05:32 84/59 L 05/15/24 05:30 36.8 C 77 18 100 05/15/24 05:24 36.8 C 82 16 99 05/15/24 05:12 36.8 C 74 17 99 05/15/24 04:42 36.7 C 84 27 H 100 05/15/24 04:27 36.8 C 78 19 98 05/15/24 04:00 36.8 C 80 16 99 05/15/24 04:00 105/75 05/15/24 04:00 105/75 05/15/24 04:00 71 98/49 L 05/15/24 03:57 36.9 C 83 21 99 05/15/24 03:24 36.9 C 86 17 98 05/15/24 02:33 36.9 C 73 16 100 05/15/24 02:18 37.0 C 82 26 H 100 05/15/24 02:06 37.0 C 81 20 98 05/15/24 01:48 37.0 C 87 19 99 05/15/24 01:30 37.0 C 72 20 97 05/15/24 01:15 37.0 C 91 H 21 94 05/15/24 01:03 37.0 C 83 21 97 05/15/24 01:00 90/61 L 05/15/24 01:00 90/61 L 05/15/24 01:00 90/61 L 05/15/24 00:51 37.0 C 90 16 97 05/15/24 00:42 37.0 C 79 19 99 05/15/24 00:15 37.0 C 81 23 100 05/15/24 00:03 37.0 C 79 18 98 05/15/24 00:00 96/64 L 05/15/24 00:00 96/64 L 05/15/24 00:00 88 98/54 L 05/15/24 00:00 76 05/14/24 23:51 37.0 C 74 18 100 05/14/24 23:45 37.0 C 91 H 17 99 05/14/24 23:33 37.0 C 80 16 97 05/14/24 23:18 37.0 C 77 19 99 05/14/24 23:00 88/56 L 05/14/24 23:00 88/56 L 05/14/24 23:00 88/56 L 05/14/24 22:54 36.9 C 77 20 97 05/14/24 22:45 36.8 C 83 21 97 05/14/24 22:42 36.8 C 90 20 100 05/14/24 22:15 35.1 C L 86 20 100 05/14/24 22:09 33.5 C L 82 19 99 05/14/24 22:01 98/53 L 05/14/24 22:01 98/53 L 05/14/24 21:30 37.2 C 94 H 14 99 05/14/24 21:19 100/62 Critical Care Results & Data Vital Signs (Past 12 Hours) Vital Signs Temp Pulse Resp BP Pulse Ox 05/15/24 08:00 92 H 05/15/24 07:30 36.5 C 92 H 24 95 05/15/24 07:15 36.6 C 89 18 100 05/15/24 07:12 36.6 C 74 20 100 05/15/24 07:00 100/59 L 05/15/24 06:12 36.6 C 80 11 L 100 05/15/24 06:03 36.7 C 80 14 100 05/15/24 06:00 95/62 L 05/15/24 05:51 36.7 C 72 17 100 05/15/24 05:45 36.7 C 74 13 99 05/15/24 05:33 36.7 C 79 16 99 05/15/24 05:32 84/59 L 05/15/24 05:32 84/59 L 05/15/24 05:30 36.8 C 77 18 100 05/15/24 05:24 36.8 C 82 16 99 05/15/24 05:12 36.8 C 74 17 99 05/15/24 04:42 36.7 C 84 27 H 100 05/15/24 04:27 36.8 C 78 19 98 05/15/24 04:00 36.8 C 80 16 99 05/15/24 04:00 105/75 05/15/24 04:00 105/75 05/15/24 04:00 71 98/49 L 05/15/24 03:57 36.9 C 83 21 99 05/15/24 03:24 36.9 C 86 17 98 05/15/24 02:33 36.9 C 73 16 100 05/15/24 02:18 37.0 C 82 26 H 100 05/15/24 02:06 37.0 C 81 20 98 05/15/24 01:48 37.0 C 87 19 99 05/15/24 01:30 37.0 C 72 20 97 05/15/24 01:15 37.0 C 91 H 21 94 05/15/24 01:03 37.0 C 83 21 97 05/15/24 01:00 90/61 L 05/15/24 01:00 90/61 L 05/15/24 01:00 90/61 L 05/15/24 00:51 37.0 C 90 16 97 05/15/24 00:42 37.0 C 79 19 99 05/15/24 00:15 37.0 C 81 23 100 05/15/24 00:03 37.0 C 79 18 98 05/15/24 00:00 96/64 L 05/15/24 00:00 96/64 L 05/15/24 00:00 88 98/54 L 05/15/24 00:00 76 05/14/24 23:51 37.0 C 74 18 100 05/14/24 23:45 37.0 C 91 H 17 99 05/14/24 23:33 37.0 C 80 16 97 05/14/24 23:18 37.0 C 77 19 99 05/14/24 23:00 88/56 L 05/14/24 23:00 88/56 L 05/14/24 23:00 88/56 L 05/14/24 22:54 36.9 C 77 20 97 05/14/24 22:45 36.8 C 83 21 97 05/14/24 22:42 36.8 C 90 20 100 05/14/24 22:15 35.1 C L 86 20 100 05/14/24 22:09 33.5 C L 82 19 99 05/14/24 22:01 98/53 L 05/14/24 22:01 98/53 L 05/14/24 21:30 37.2 C 94 H 14 99 05/14/24 21:19 100/62 Lab & Micro Results (Past 24 Hours) RBC 3.35 M/uL (4.70-6.10) L 05/15/24 WBC 7.43 K/ul (4.8-10.8) 05/15/24 Hgb 8.7 g/dl (14.0-18.0) L 05/15/24 Hct 27.4 % (42.0-52.0) L 05/15/24 MCV 81.8 fL (80.0-100.0) 05/15/24 MCH 26.0 pg (25.0-34.0) 05/15/24 MCHC 31.8 g/dL (32.0-36.0) L 05/15/24 RDW Standard Deviation 50.4 fL (36.4-46.3) H 05/15/24 RDW Coefficient of Variation 17.3 % (11.5-14.5) H 05/15/24 Plt Count 146 K/uL (130-400) 05/15/24 MPV 10.0 fL (9.4-12.4) 05/15/24 Neutrophils (%) (Auto) 68.6 % 05/15/24 Lymphocytes (%) (Auto) 17.2 % 05/15/24 Monocytes # (Auto) 0.80 K/uL (0.11-0.59) H 05/15/24 Eosinophils # (Auto) 0.16 K/uL (0.00-0.50) 05/15/24 Immature Granulocyte % (Auto) 0.4 % 05/15/24 Neutrophils # (Auto) 5.10 K/uL (1.40-6.50) 05/15/24 Lymphocytes # (Auto) 1.28 K/uL (1.20-3.40) 05/15/24 Monocytes # (Auto) 0.80 K/uL (0.11-0.59) H 02/16/25 Eosinophils # (Auto) 0.16 K/uL (0.00-0.50) 05/15/24 Basophils # (Auto) 0.06 K/uL (0.00-0.20) 05/15/24 Immature Granulocyte # (Auto) 0.03 K/uL (0.01-0.20) 5 Na 141 mmol/L (136-145) 05/15/24 K 3.6 mmol/L (3.5-5.1) 05/15/24 Cl 109 mmol/L (98-107) H 05/15/24 CO2 25 mmol/L (21-32) 05/15/24 Anion Gap 7 (3-11) 05/15/24 BUN 77 mg/dl (6-23) H 05/15/24 Creatinine 2.39 mg/dl (0.6-1.4) H 05/15/24 BUN/Creatinine Ratio 32.2 (10-20) H 05/15/24 Glu 113 mg/dl (70-99(Fasting)) H 05/15/24 Ca 8.8 mg/dl (8.6-10.3) 05/15/24 Total Bilirubin 0.7 mg/dl (0.2-1.0) 05/14/24 AST 36 U/L (13-39) 05/14/24 ALT 26 U/L (7-52) 05/14/24 Alkaline Phosphatase 57 U/L (34-104) 05/14/24 TP 6.1 gm/dl (6.0-8.3) 05/14/24 Albumin 3.2 gm/dl (3.4-5.0) L 05/14/24 Globulin 2.9 gm/dl (2.5-4.0) 05/14/24 Albumin/Globulin Ratio 1.1 (0.9-2) 05/14/24 Mg 2.4 mg/dl (1.7-2.4) 05/15/24 05:25 Calcium Level 8.8 mg/dl (8.6-10.3) 05/15/24 05:25 Prothromb Time International Ratio 1.1 (0.9-1.1) 05/14/24 12:0 6 Diagnostic Findings (Past 24 Hours) Abdomen/Pelvis CT 05/14/24 12:27 CT OF THE ABDOMEN AND PELVIS WITHOUT CONTRAST CLINICAL HISTORY: bloody stool, 1 kidney, xarelto COMPARISON STUDY: CT of the abdomen and pelvis January 27, 2024. TECHNIQUE: Axial images of the abdomen and pelvis were obtained without IV contrast. Images were reviewed in the axial, sagittal, and coronal planes. Automated exposure control was utilized for the study. A dose lowering technique was utilized adhering to the principles of ALARA. FINDINGS: No pneumatosis, free air or portal venous gas is present. There is no evidence for a bowel obstruction status post Juan-en-Y gastric bypass. There is no biliary ductal dilatation status post cholecystectomy. Hypodense hepatic lesions are unchanged and favor cysts. Spleen and adrenal glands are unremarkable. Left kidney is surgically absent. A 1.4 cm hyperdense nodule adjacent to the lower pole of the right kidney is unchanged. This could represent a proteinaceous cyst or less likely a small solid renal lesion. There is no lymphadenopathy. Slight prominence of the right collecting system without hydronephrosis. No bowel wall thickening is identified on unenhanced exam. This colonic diverticulosis without evidence for acute diverticulitis. No bowel wall thickening is identified on unenhanced study. The appendix is normal. IMPRESSION: 1. No acute process within the abdomen or pelvis on unenhanced exam. 2. Colonic diverticulosis. No evidence for acute diverticulitis. No bowel obstruction. No bowel wall thickening on unenhanced exam. 3. Status post Juan-en-Y gastric bypass. 4. No abnormality within the left nephrectomy bed. ACT 112: Negative or not required by law. Electronically signed by: Eddy Bashir M.D. 05/14/2024 1:08 PM Chest X-Ray 05/14/24 13:09 HISTORY: GI bleed. TECHNIQUE: Portable AP radiographs of the chest. COMPARISON: None. FINDINGS: No focal lung consolidation. No pneumothorax or pleural effusion. Cardiomegaly is mild. Postsurgical changes of median sternotomy. Left-sided aortic arch. Midline trachea. No acute osseous abnormality. Right upper quadrant surgical clips consistent with cholecystectomy. IMPRESSION: 1. No acute cardiopulmonary findings. 2. Mild cardiomegaly. Electronically signed by Sumeet Hanson 05-14-2024 2:14 PM Abdomen/Pelvis CTA 05/14/24 20:29 Exam(s): CTA ABDOMEN + PELVIS With Contrast IV Amt: OPTIRAY 320 119ML EXAM: CT Angiography Abdomen and Pelvis With Intravenous Contrast CLINICAL HISTORY: eval for acute hemorrhage- GI Bleed suspected. TECHNIQUE: Axial computed tomographic angiography images of the abdomen and pelvis with intravenous contrast. CTDI is 28.5 mGy and DLP is 1337.39 mGy-cm. Automated exposure control was utilized for the study. A dose lowering technique was utilized adhering to the principles of ALARA. 3D and MIP reconstructed images were created and reviewed. CONTRAST: Patient received OPTIRAY 320 119ML of IV contrast COMPARISON: CT Abdomen Pelvis 05-14-2024. FINDINGS: VASCULATURE: Aorta: Mild diffuse atherosclerotic plaque within a high-grade stenosis. No abdominal aortic aneurysm. No dissection. Celiac trunk and mesenteric arteries: Mild calcified plaque at the origin of the celiac artery and superior mesenteric arteries with intact distal runoff. Intact inferior mesenteric artery. Renal arteries: Single right renal artery. Right renal artery unremarkable. Status post left nephrectomy. No occlusion or significant stenosis. Iliac arteries: No acute abnormality. No occlusion or significant stenosis. Lung bases: Small right pleural effusion. Mild bibasilar atelectasis. Cardiomegaly. ABDOMEN: Liver: Hypodense/fatty. No mass. Gallbladder and bile ducts: Post cholecystectomy. No ductal dilation. Pancreas: Unremarkable. No ductal dilation. No mass. Spleen: Unremarkable. No splenomegaly. Adrenals: Unremarkable. No mass. Kidneys and ureters: Status post left nephrectomy. Right renal cysts. Stomach and bowel: Gastric sutures. No bowel obstruction or ileus. Abundant stool throughout the colon. Few distal left and sigmoid colon diverticuli without evidence for diverticulitis. No contrast extravasation within bowel to indicate active hemorrhage. PELVIS: Appendix: No findings to suggest acute appendicitis. Bladder: Talavera catheter within the partially contracted urinary bladder. No mass. Reproductive: Unremarkable as visualized. ABDOMEN and PELVIS: Intraperitoneal space: Unremarkable. No significant fluid collection. No free air. Bones/joints: No acute fracture. Levoscoliosis with degenerative changes. Soft tissues: Unremarkable. Lymph nodes: Unremarkable. No enlarged lymph nodes. IMPRESSION: No evidence for active contrast extravasation within bowel. Distal left and sigmoid colon diverticulosis without evidence for acute diverticulitis. Mild diffuse atherosclerotic plaque throughout the abdominal aorta and major branches without high-grade stenosis or occlusion. Otherwise no change. Electronically signed by: Levi Penn M.D. 05/14/24 22:26 PM I & O Totals 24 Hours 05/14/24 05/15/24 05/16/24 06:59 06:59 06:59 Intake Total 2932.899 / 2932.899 0 / 0 Output Total 875 / 875 Balance 2057.899 / 2057.899 0 / 0 Cumulative 05/14/24 11:42 thru 05/15/24 07:05 Intake Total 2932.899 Output Total 875 Balance 7.899 RT Ventilator Mngmt (Last Documented) Ventilator Ordered Settings Respiratory Rate 24 05/15/24 07:30 Ventilator - PT Measurements Respiratory Rate 24 Coding Level of Care Code 74867 INT INP/OBS CARE 3/75MIN Diagnoses Acute GI bleeding K92.2 Hypovolemic shock R57.1 Permanent atrial fibrillation with RVR I48.21 DEONNA (acute kidney injury) N17.9
[2024-05-15 09:59] LABS: Hematocrit (blood only) 27.1 % (42.0-52.0); Hemoglobin 8.5 g/dl (14.0-18.0)
--- NOTE | 2024-05-15 10:58 | Gastroenterology Progress Note ---
Date of Service May 15, 2024 Assessment & Plan (1) Acute GI bleeding: Plan: Strongly suspect bleed from the extruded stomach. Clinically not bleeding at present. CTA last evening showed cessation of bleeding. Patient at significant risk of rebleed however for the next 48 hours. Along these lines see plan above. Consider surgical consult. (2) CRF (chronic renal failure): (3) Hypovolemic shock: Admission and Anticipated Discharge Date Admission Date: May 14, 2024 Subjective GI bleed with hypotension Patient stable overnight. By nursing to smears of bowel movements described as josse in nature. BUN has come down slightly. EGD last evening showed a normal gastric pouch post Juan-en-Y gastric bypass. The scope was advanced to its full length without reaching the distal Juan-en-Y anastomosis. No blood at all in the upper GI tract. Strong likelihood he is bleeding from the extruded stomach or duodenum. This type of bleeding often suggests a gastroduodenal artery type bleed. With a bulbar postbulbar duodenal ulcer. He did go for CTA last evening and that was negative suggesting no bleeding at that time. There was a request for transfer though denied after demonstration of no active bleeding. Management issue now is if there is a rebleed. IR typically would be the next step. Laparoscopic surgery with duodenal oversew also was an option if IRIS not available. Site of bleeding could be definitively established with a CTA if suspicion of rebleed. However he has significant kidney dysfunction. He is already had a dose of contrast. Need to be concerned for the potential for contrast nephropathy. Along those lines I will plan to prep him today give him a full PEG solution prep. He is quite thirsty and should do well with this. This will flush out all the old blood. We then should be aware of rebleeding as fresh blood will be present. Then semiurgent colonoscopy with terminal ileum intubation would demonstrate a bleed proximally to the colon. With a likely source being duodenal ulcer. I think surgery should be consulted in the event operative intervention needed. Review of Systems Review of Systems: Patient awake and alert no acute distress. Denies chest pain or shortness of breath Denies abdominal pain. Physical Exam Physical Exam: Patient examined intensive care unit. Vital stable afebrile improved blood pressure over last evening happy gentleman. Reviewed findings from last evening. Chest and heart exams per ICU staff and hospitalist. His abdomen is entirely benign. Slight odor of blood noted at the bedside consistent with a history of GI bleeding Results & Data Results & Data Vital Signs (Past 12 Hours) Vital Signs Temp Pulse Resp BP Pulse Ox O2 Del Method O2 Flow Rate 05/15/24 08:00 92 H 05/15/24 07:47 81 05/15/24 07:30 CPAP 3 05/15/24 07:30 36.5 C 92 H 24 95 05/15/24 07:15 36.6 C 89 18 100 05/15/24 07:12 36.6 C 74 20 100 05/15/24 07:00 100/59 L 05/15/24 06:12 36.6 C 80 11 L 100 05/15/24 06:03 36.7 C 80 14 100 05/15/24 06:00 95/62 L 05/15/24 05:51 36.7 C 72 17 100 05/15/24 05:45 36.7 C 74 13 99 05/15/24 05:33 36.7 C 79 16 99 05/15/24 05:32 84/59 L 05/15/24 05:32 84/59 L 05/15/24 05:30 36.8 C 77 18 100 05/15/24 05:24 36.8 C 82 16 99 05/15/24 05:12 36.8 C 74 17 99 05/15/24 04:42 36.7 C 84 27 H 100 05/15/24 04:27 36.8 C 78 19 98 05/15/24 04:00 36.8 C 80 16 99 05/15/24 04:00 105/75 05/15/24 04:00 105/75 05/15/24 04:00 71 98/49 L 05/15/24 03:57 36.9 C 83 21 99 05/15/24 03:24 36.9 C 86 17 98 05/15/24 02:33 36.9 C 73 16 100 05/15/24 02:18 37.0 C 82 26 H 100 05/15/24 02:06 37.0 C 81 20 98 05/15/24 01:48 37.0 C 87 19 99 05/15/24 01:30 37.0 C 72 20 97 05/15/24 01:15 37.0 C 91 H 21 94 05/15/24 01:03 37.0 C 83 21 97 05/15/24 01:00 90/61 L 05/15/24 01:00 90/61 L 05/15/24 01:00 90/61 L 05/15/24 00:51 37.0 C 90 16 97 05/15/24 00:42 37.0 C 79 19 99 05/15/24 00:15 37.0 C 81 23 100 05/15/24 00:03 37.0 C 79 18 98 05/15/24 00:00 96/64 L 05/15/24 00:00 96/64 L 05/15/24 00:00 88 98/54 L 05/15/24 00:00 76 05/14/24 23:51 37.0 C 74 18 100 05/14/24 23:45 37.0 C 91 H 17 99 05/14/24 23:33 37.0 C 80 16 97 05/14/24 23:18 37.0 C 77 19 99 05/14/24 23:00 88/56 L 05/14/24 23:00 88/56 L 05/14/24 23:00 88/56 L 05/14/24 22:54 36.9 C 77 20 97 Laboratory Results Hemoglobin 8.5 BUN decreased from 82-77, INR is normal. PG Care Time/CCT Total # of Minutes Spent Total Time Spent with Patient: Total time spent is greater than 50% in coordination of care (as documented) at patient's floor/unit and/or counseling patient: Coding Level of Care Code 31383 SUB INP/OBS CARE 2MIN Diagnoses Acute GI bleeding K92.2 CRF (chronic renal failure) N18.9 Chronic kidney disease stage: unspecified stage Hypovolemic shock R57.1 (2) CRF (chronic renal failure) Chronic kidney disease stage: unspecified stage Qualified Code(s): N18.9 - Chronic kidney disease, unspecified
[2024-05-15] MEDS: LAVAGE SOLUTION 4000ML PO SCH (11:57)
--- NOTE | 2024-05-15 13:42 | Surgery Consultation ---
Date of Consultation May 15, 2024 Assessment & Plan (1) Acute gastrointestinal bleedin-year-old gentleman with multiple medical and surgical history presents for GI bleed. He has a prior gastric bypass. Site of bleeding was not able to be identified endoscopically with the EGD. He does not appear to be bleeding at this time. I would strongly recommend against any surgical intervention without the ability to localize the bleed. exploratory laparotomy for GI bleed in the situation where the bleed cannot be localized carries a mortality rate as high as 25% especially in older complex medical history patients. I absolutely agree with transfer for interventional radiology intervention if he shows signs of rebleeding. Please call with questions or concerns. History of Present Illness Reason for Consultation: GI bleed Requesting Physician: Shelia Frank MD Attending Physician: Shelia Frank MD History of Present Illness Kyler is an 84-year-old male with PMH of A-fib RVR (on Xarelto), CHF, RACHELE, secondary hyperparathyroidism, renal cell carcinoma s/p left-sided nephrectomy, CKD, HTN, and HLD. He presented on 05/14 for bright red blood in stool. This started yesterday evening at 7 PM. He went to the bathroom approximately 3 times last night, and each time he had dark stool with bright red blood in it. He also had 2 additional episodes this morning (05/14). he was transfused. He has a prior gastric bypass surgery. He recently had a heart surgery. EGD was done today which did not demonstrate active bleeding. CTA did not show active bleeding. Attempted transfer to tertiary care for IR, but this was denied due to no active bleeding. I was asked to consult given the fact that site of bleeding could not be identified by EGD. Allergies Allergy/AdvReac Type Severity Reaction Status Date / Time iron [From Venofer] AdvReac Mild Vomiting Verified 04/14/24 08:57 Iodinated Contrast Media AdvReac Unknown PT ONLY Verified 04/14/24 08:57 [Iodinated Contrast- Oral HAS 1 and IV Dye] KIDNEY, CONTRAINDICATED. Home Medications Medication Instructions Recorded Confirmed Type amoxicillin 500 mg tablet 2,000 mg PO DIRECTED PRN 1 HOUR 11/16/18 05/14/24 History PRIOR TO DENTAL PROCEDURES cholecalciferol (vitamin D3) 50 50 mcg PO DAILY 07/10/22 05/14/24 History mcg (2,000 unit) capsule (Vitamin D3) magnesium 250 mg tablet 250 mg PO HS 07/10/22 05/14/24 History cyanocobalamin (vitamin B-12) 1,000 mcg IM Q90D #30 mL 09/23/22 05/14/24 Rx 1,000 mcg/mL injection solution metolazone 5 mg tablet 5 mg PO DAILY PRN weight gain #30 10/23/22 05/14/24 Rx tabs Portable Oxygen #1 ea 05/25/23 05/13/24 Rx tamoxifen 20 mg tablet 20 mg PO QAM 12/22/23 05/14/24 History docusate sodium 100 mg capsule 100 mg PO DAILY PRN constipation 02/08/24 05/14/24 Rx #0 caps allopurinol 100 mg tablet 50 mg PO QAM 03/03/24 05/14/24 History calcitriol 0.25 mcg capsule 0.5 mcg (2 x 0.25 mcg) PO QAM #180 04/01/24 05/14/24 Rx caps rivaroxaban 15 mg tablet 15 mg PO HS #90 tabs 04/01/24 05/14/24 Rx tramadol 50 mg tablet 50 mg PO BID PRN Pain #60 tabs 04/01/24 05/14/24 Rx midodrine 10 mg tablet 10 mg PO TID@0800,1200,1700 #270 04/04/24 05/14/24 Rx tabs aspirin 81 mg chewable tablet 81 mg PO DAILY 05/13/24 05/14/24 History cyclobenzaprine 5 mg tablet 5 mg PO BID PRN muscle 05/13/24 05/14/24 History pain/stiffness metoprolol succinate 100 mg 100 mg PO BID 05/13/24 05/14/24 History tablet,extended release 24 hr (Toprol XL) potassium chloride 10 mEq 20 meq PO BID 05/13/24 05/14/24 History capsule,extended release torsemide 100 mg tablet 100 mg PO BID 05/13/24 05/14/24 History Patient History Medical History Congestive heart failure Chronic dental pain Hypotension Chronic renal insufficiency, stage IV (severe) Iron deficiency anemia Obstructive sleep apnea BIPAP Diabetes mellitus Aspiration into respiratory tract Acute kidney injury superimposed on CKD Morbid obesity History of anxiety Hx of gout Hx of rotator cuff tear Difficulty with raising arms without extreme pain, currently in PT Hx of osteoarthritis Hx of impacted cerumen History of COVID-19 01/2021 > "mild" cold symptoms, resolved Prediabetes Kidney stones Hx x7 Renal cell adenocarcinoma s/p nephrectomy Chronic kidney disease, stage III (moderate) CKD (chronic kidney disease), stage III Surgical History H/O aortic valve replacement Hx of cardiac catheterization 11/2020 > no stents History of total bilateral knee replacement History of esophagogastroduodenoscopy (EGD) Hx of colonoscopy Hx of tonsillectomy Hx of cystoscopy w/stone basketing History of left nephrectomy History of spinal surgery Aortic valve replaced bioprosthesis, 2006 History of gastric bypass History of cholecystectomy Family History Mother Breast cancer Lung disease Grandmother (Maternal) Breast cancer Aunt Breast cancer Sister Breast cancer Father Myocardial infarction Arthritis Denies family history of Ovarian cancer Prostate cancer Colorectal cancer Social History Smoking Status: Never smoker Second Hand Exposure: No; Do You Dip or Chew Tobacco: No; Hx Alcohol Use: No Hx Substance Use: No Preferred Language: [place]ese Communication Ability: Effective Visual Impairment: No Limitations Hearing Ability: Normal Ssn/Ssbn Assistant Navigator Required: No Beliefs That Will Affect Care: None marital status: Current Living Situation: Spouse and Family Current Living Situation Comment: Lives w/ , son lives in basement current occupational status: retired 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[employer] Feels Safe at Home: Yes Childhood Exposure to Second-Hand Smoke: Yes Diet: regular caffeine: Yes Dental Care, Regularly: Yes Physical Activity Frequency: Does not Exercise Physical Activity Frequency Comment: Physical activity limited due to medical conditions Seatbelt Use: always Sunscreen Use: No Do you think of yourself as: straight/heterosexual Gender Identity: Male Assistive Devices: Cane and Glasses Review of Systems Review of Systems: All systems reviewed & are unremarkable except as noted in HPI & below Physical Exam Constitutional: WD/WN, vitals as above Eyes: PERRL, conjunctivae normal, anicteric sclerae Neck: trachea midline, no thyromegaly Respiratory: normal respiratory effort; no respiratory distress and no labored breathing Cardiovascular: Rate/Rhythm: regular rate and + irregularly irregular Gastrointestinal (Abdomen): Inspection/Auscultation: abdomen normal to inspection; abdomen not distended Percussion/Palpation: abdomen soft; abdomen nontender Skin: no rashes, warm and dry Psychiatric: A+Ox3, euthymic affect Results & Data Vital Signs (Past 12 Hours) Vital Signs Temp Pulse Resp BP Pulse Ox O2 Del Method O2 Flow Rate 05/15/24 12:00 88/53 L 05/15/24 12:00 92 H 101/52 L 05/15/24 11:59 36.9 C 109 H 23 98 Room Air 05/15/24 11:55 83/43 L 05/15/24 11:38 36.9 C 90 17 100 05/15/24 11:06 36.8 C 85 21 100 05/15/24 11:00 100/58 L 05/15/24 10:05 36.6 C 84 15 05/15/24 10:00 105/65 05/15/24 09:56 36.6 C 77 18 94 05/15/24 09:00 93/68 L 05/15/24 08:00 36.5 C 77 11 L 99 05/15/24 08:00 107/49 L 05/15/24 08:00 92 H 05/15/24 07:47 81 05/15/24 07:30 CPAP 3 05/15/24 07:30 36.5 C 92 H 24 95 05/15/24 07:15 36.6 C 89 18 100 05/15/24 07:12 36.6 C 74 20 100 05/15/24 07:00 100/59 L 05/15/24 06:12 36.6 C 80 11 L 100 05/15/24 06:03 36.7 C 80 14 100 05/15/24 06:00 95/62 L 05/15/24 05:51 36.7 C 72 17 100 05/15/24 05:45 36.7 C 74 13 99 05/15/24 05:33 36.7 C 79 16 99 05/15/24 05:32 84/59 L 05/15/24 05:32 84/59 L 05/15/24 05:30 36.8 C 77 18 100 05/15/24 05:24 36.8 C 82 16 99 05/15/24 05:12 36.8 C 74 17 99 05/15/24 04:42 36.7 C 84 27 H 100 05/15/24 04:27 36.8 C 78 19 98 05/15/24 04:00 36.8 C 80 16 99 05/15/24 04:00 105/75 05/15/24 04:00 105/75 05/15/24 04:00 71 98/49 L 05/15/24 03:57 36.9 C 83 21 99 05/15/24 03:24 36.9 C 86 17 98 05/15/24 02:33 36.9 C 73 16 100 05/15/24 02:18 37.0 C 82 26 H 100 05/15/24 02:06 37.0 C 81 20 98 05/15/24 01:48 37.0 C 87 19 99 Laboratory Results 05/15/24 05/15/24 05/15/24 Range/Units 09:33 05:25 00:56 WBC 7.43 (4.8-10.8) K/ul RBC 3.35 L (4.70-6.10) M/uL Hgb 8.5 L 8.7 L 8.6 L (14.0-18.0) g/dl Hct 27.1 L 27.4 L 27.3 L (42.0-52.0) % MCV 81.8 (80.0-100.0) fL MCH 26.0 (25.0-34.0) pg MCHC 31.8 L (32.0-36.0) g/dL RDW Std Deviation 50.4 H (36.4-46.3) fL RDW Coeff of Sarah 17.3 H (11.5-14.5) % Plt Count 146 (130-400) K/uL MPV 10.0 (9.4-12.4) fL Immature Gran % (Auto) 0.4 % Neut % (Auto) 68.6 % Lymph % (Auto) 17.2 % Yolo % (Auto) 10.8 % Eos % (Auto) 2.2 % Baso % (Auto) 0.8 % Neut # (Auto) 5.10 (1.40-6.50) K/uL Lymph # (Auto) 1.28 (1.20-3.40) K/uL Yolo # (Auto) 0.80 H (0.11-0.59) K/uL Eos # (Auto) 0.16 (0.00-0.50) K/uL Baso # (Auto) 0.06 (0.00-0.20) K/uL Immature Gran # (Auto) 0.03 (0.01-0.20) K/uL Fibrinogen (184-400) mg/dl Sodium 141 (136-145) mmol/L Potassium 3.6 (3.5-5.1) mmol/L Chloride 109 H (98-107) mmol/L Carbon Dioxide 25 (21-32) mmol/L Anion Gap 7 (3-11) BUN 77 H (6-23) mg/dl Creatinine 2.39 H (0.6-1.4) mg/dl Est Cr Clr Drug Dosing 26.5 ml/min eGFR 26.41 BUN/Creatinine Ratio 32.2 H (10-20) Glucose 113 H (70-99(Fasting)) mg/dl Lactate (0.4-2.0) mmol/L Calcium 8.8 (8.6-10.3) mg/dl Magnesium 2.4 (1.7-2.4) mg/dl Nasal Screen MRSA (PCR) (Negative) Stl C. cayetanensis PCR (NotDetected) Stool Rotavirus A PCR (NotDetected) Stl Adenov F 40/41 PCR (NotDetected) Stool Astrovirus (PCR) (NotDetected) Stool Campylobacter PCR (NotDetected) Stool Cryptosporidium PCR (NotDetected) Stl E.coli Shiga Tox PCR (NotDetected) Stl Enterotoxigenic E PCR (NotDetected) Stool EPEC (PCR) (NotDetected) Stool EAEC (PCR) (NotDetected) Stl E. histolytica PCR (NotDetected) Stool Giardia Lamblia PCR (NotDetected) Stool Salmonella PCR (NotDetected) Stool Sapovirus (PCR) (NotDetected) Stl P. shigelloides PCR (NotDetected) Stl Shigella/EIEC PCR (NotDetected) St Y.enterocolitica PCR (NotDetected) Stool Vibrio (PCR) (NotDetected) Stl Vibrio cholerae PCR (NotDetected) Stl Norovirus GI/GII PCR (NotDetected) Blood Type Blood Type Recheck Antibody Screen Crossmatch 05/14/24 05/14/24 05/14/24 Range/Units Unknown 20:17 18:01 WBC (4.8-10.8) K/ul RBC (4.70-6.10) M/uL Hgb 9.0 L (14.0-18.0) g/dl Hct 28.2 L (42.0-52.0) % MCV (80.0-100.0) fL MCH (25.0-34.0) pg MCHC (32.0-36.0) g/dL RDW Std Deviation (36.4-46.3) fL RDW Coeff of Sarah (11.5-14.5) % Plt Count (130-400) K/uL MPV (9.4-12.4) fL Immature Gran % (Auto) % Neut % (Auto) % Lymph % (Auto) % Y[place] % (Auto) % Eos % (Auto) % Baso % (Auto) % Neut # (Auto) (1.40-6.50) K/uL Lymph # (Auto) (1.20-3.40) K/uL Yolo # (Auto) (0.11-0.59) K/uL Eos # (Auto) (0.00-0.50) K/uL Baso # (Auto) (0.00-0.20) K/uL Immature Gran # (Auto) (0.01-0.20) K/uL Fibrinogen 279 (184-400) mg/dl Sodium (136-145) mmol/L Potassium (3.5-5.1) mmol/L Chloride (98-107) mmol/L Carbon Dioxide (21-32) mmol/L Anion Gap (3-11) BUN (6-23) mg/dl Creatinine (0.6-1.4) mg/dl Est Cr Clr Drug Dosing ml/min eGFR BUN/Creatinine Ratio (10-20) Glucose (70-99(Fasting)) mg/dl Lactate 1.8 (0.4-2.0) mmol/L Calcium (8.6-10.3) mg/dl Magnesium (1.7-2.4) mg/dl Nasal Screen MRSA (PCR) Positive A (Negative) Stl C. cayetanensis PCR (NotDetected) Stool Rotavirus A PCR (NotDetected) Stl Adenov F 40/ PCR (NotDetected) Stool Astrovirus (PCR) (NotDetected) Stool Campylobacter PCR (NotDetected) Stool Cryptosporidium PCR (NotDetected) Stl E.coli Shiga Tox PCR (NotDetected) Stl Enterotoxigenic E PCR (NotDetected) Stool EPEC (PCR) (NotDetected) Stool EAEC (PCR) (NotDetected) Stl E. histolytica PCR (NotDetected) Stool Giardia Lamblia PCR (NotDetected) Stool Salmonella PCR (NotDetected) Stool Sapovirus (PCR) (NotDetected) Stl P. shigelloides PCR (NotDetected) Stl Shigella/EIEC PCR (NotDetected) St Y.enterocolitica PCR (NotDetected) Stool Vibrio (PCR) (NotDetected) Stl Vibrio cholerae PCR (NotDetected) Stl Norovirus GI/GII PCR (NotDetected) Blood Type Blood Type Recheck Antibody Screen Crossmatch 05/14/24 05/14/24 05/14/24 Range/Units 15:01 14:10 13:22 WBC (4.8-10.8) K/ul RBC (4.70-6.10) M/uL Hgb 7.6 L (14.0-18.0) g/dl Hct 24.9 L (42.0-52.0) % MCV (80.0-100.0) fL MCH (25.0-34.0) pg MCHC (32.0-36.0) g/dL RDW Std Deviation (36.4-46.3) fL RDW Coeff of Sarah (11.5-14.5) % Plt Count (130-400) K/uL MPV (9.4-12.4) fL Immature Gran % (Auto) % Neut % (Auto) % Lymph % (Auto) % Y[place] % (Auto) % Eos % (Auto) % Baso % (Auto) % Neut # (Auto) (1.40-6.50) K/uL Lymph # (Auto) (1.20-3.40) K/uL Yolo # (Auto) (0.11-0.59) K/uL Eos # (Auto) (0.00-0.50) K/uL Baso # (Auto) (0.00-0.20) K/uL Immature Gran # (Auto) (0.01-0.20) K/uL Fibrinogen (184-400) mg/dl Sodium (136-145) mmol/L Potassium (3.5-5.1) mmol/L Chloride (98-107) mmol/L Carbon Dioxide (21-32) mmol/L Anion Gap (3-11) BUN (6-23) mg/dl Creatinine (0.6-1.4) mg/dl Est Cr Clr Drug Dosing ml/min eGFR BUN/Creatinine Ratio (10-20) Glucose (70-99(Fasting)) mg/dl Lactate (0.4-2.0) mmol/L Calcium (8.6-10.3) mg/dl Magnesium (1.7-2.4) mg/dl Nasal Screen MRSA (PCR) (Negative) Stl C. cayetanensis PCR Not Detected (NotDetected) Stool Rotavirus A PCR Not Detected (NotDetected) Stl Adenov F 40/41 PCR Not Detected (NotDetected) Stool Astrovirus (PCR) Not Detected (NotDetected) Stool Campylobacter PCR Not Detected (NotDetected) Stool Cryptosporidium PCR Not Detected (NotDetected) Stl E.coli Shiga Tox PCR Not Detected (NotDetected) Stl Enterotoxigenic E PCR Not Detected (NotDetected) Stool EPEC (PCR) Not Detected (NotDetected) Stool EAEC (PCR) Not Detected (NotDetected) Stl E. histolytica PCR Not Detected (NotDetected) Stool Giardia Lamblia PCR Not Detected (NotDetected) Stool Salmonella PCR Not Detected (NotDetected) Stool Sapovirus (PCR) Not Detected (NotDetected) Stl P. shigelloides PCR Not Detected (NotDetected) Stl Shigella/EIEC PCR Not Detected (NotDetected) St Y.enterocolitica PCR Not Detected (NotDetected) Stool Vibrio (PCR) Not Detected (NotDetected) Stl Vibrio cholerae PCR Not Detected (NotDetected) Stl Norovirus GI/GII PCR Not Detected (NotDetected) Blood Type Blood Type Recheck O Positive Antibody Screen Crossmatch 05/14/24 Range/Units 12:06 WBC (4.8-10.8) K/ul RBC (4.70-6.10) M/uL Hgb (14.0-18.0) g/dl Hct (42.0-52.0) % MCV (80.0-100.0) fL MCH (25.0-34.0) pg MCHC (32.0-36.0) g/dL RDW Std Deviation (36.4-46.3) fL RDW Coeff of Sarah (11.5-14.5) % Plt Count (130-400) K/uL MPV (9.4-12.4) fL Immature Gran % (Auto) % Neut % (Auto) % Lymph % (Auto) % [place] % (Auto) % Eos % (Auto) % Baso % (Auto) % Neut # (Auto) (1.40-6.50) K/uL Lymph # (Auto) (1.20-3.40) K/uL Y[place] # (Auto) (0.11-0.59) K/uL Eos # (Auto) (0.00-0.50) K/uL Baso # (Auto) (0.00-0.20) K/uL Immature Gran # (Auto) (0.01-0.20) K/uL Fibrinogen (184-400) mg/dl Sodium (136-145) mmol/L Potassium (3.5-5.1) mmol/L Chloride (98-107) mmol/L Carbon Dioxide (21-32) mmol/L Anion Gap (3-11) BUN (6-23) mg/dl Creatinine (0.6-1.4) mg/dl Est Cr Clr Drug Dosing ml/min eGFR BUN/Creatinine Ratio (10-20) Glucose (70-99(Fasting)) mg/dl Lactate (0.4-2.0) mmol/L Calcium (8.6-10.3) mg/dl Magnesium (1.7-2.4) mg/dl Nasal Screen MRSA (PCR) (Negative) Stl C. cayetanensis PCR (NotDetected) Stool Rotavirus A PCR (NotDetected) Stl Adenov F 40/41 PCR (NotDetected) Stool Astrovirus (PCR) (NotDetected) Stool Campylobacter PCR (NotDetected) Stool Cryptosporidium PCR (NotDetected) Stl E.coli Shiga Tox PCR (NotDetected) Stl Enterotoxigenic E PCR (NotDetected) Stool EPEC (PCR) (NotDetected) Stool EAEC (PCR) (NotDetected) Stl E. histolytica PCR (NotDetected) Stool Giardia Lamblia PCR (NotDetected) Stool Salmonella PCR (NotDetected) Stool Sapovirus (PCR) (NotDetected) Stl P. shigelloides PCR (NotDetected) Stl Shigella/EIEC PCR (NotDetected) St Y.enterocolitica PCR (NotDetected) Stool Vibrio (PCR) (NotDetected) Stl Vibrio cholerae PCR (NotDetected) Stl Norovirus GI/GII PCR (NotDetected) Blood Type O Positive Blood Type Recheck Antibody Screen NEGATIVE Crossmatch See Detail Diagnostic Findings xam(s): CTA ABDOMEN + PELVIS With Contrast IV Amt: OPTIRAY 320 119ML EXAM: CT Angiography Abdomen and Pelvis With Intravenous Contrast CLINICAL HISTORY: eval for acute hemorrhage- GI Bleed suspected. TECHNIQUE: Axial computed tomographic angiography images of the abdomen and pelvis with intravenous contrast. CTDI is 28.5 mGy and DLP is 1337.39 mGy-cm. Automated exposure control was utilized for the study. A dose lowering technique was utilized adhering to the principles of ALARA. 3D and MIP reconstructed images were created and reviewed. CONTRAST: Patient received OPTIRAY 320 119ML of IV contrast COMPARISON: CT Abdomen Pelvis 05-14-2024. FINDINGS: VASCULATURE: Aorta: Mild diffuse atherosclerotic plaque within a high-grade stenosis. No abdominal aortic aneurysm. No dissection. Celiac trunk and mesenteric arteries: Mild calcified plaque at the origin of the celiac artery and superior mesenteric arteries with intact distal runoff. Intact inferior mesenteric artery. Renal arteries: Single right renal artery. Right renal artery unremarkable. Status post left nephrectomy. No occlusion or significant stenosis. Iliac arteries: No acute abnormality. No occlusion or significant stenosis. Lung bases: Small right pleural effusion. Mild bibasilar atelectasis. Cardiomegaly. ABDOMEN: Liver: Hypodense/fatty. No mass. Gallbladder and bile ducts: Post cholecystectomy. No ductal dilation. Pancreas: Unremarkable. No ductal dilation. No mass. Spleen: Unremarkable. No splenomegaly. Adrenals: Unremarkable. No mass. Kidneys and ureters: Status post left nephrectomy. Right renal cysts. Stomach and bowel: Gastric sutures. No bowel obstruction or ileus. Abundant stool throughout the colon. Few distal left and sigmoid colon diverticuli without evidence for diverticulitis. No contrast extravasation within bowel to indicate active hemorrhage. PELVIS: Appendix: No findings to suggest acute appendicitis. Bladder: Talavera catheter within the partially contracted urinary bladder. No mass. Reproductive: Unremarkable as visualized. ABDOMEN and PELVIS: Intraperitoneal space: Unremarkable. No significant fluid collection. No free air. Bones/joints: No acute fracture. Levoscoliosis with degenerative changes. Soft tissues: Unremarkable. Lymph nodes: Unremarkable. No enlarged lymph nodes. IMPRESSION: No evidence for active contrast extravasation within bowel. Distal left and sigmoid colon diverticulosis without evidence for acute diverticulitis. Mild diffuse atherosclerotic plaque throughout the abdominal aorta and major branches without high-grade stenosis or occlusion. Otherwise no change. Electronically signed by: Levi Penn M.D. 05/14/24 22:26 PM
[2024-05-15 17:36] LABS: Hematocrit (blood only) 28.2 % (42.0-52.0); Hemoglobin 8.9 g/dl (14.0-18.0)
--- NOTE | 2024-05-15 19:05 | Hospitalist Progress Note ---
Date of Service May 15, 2024 Assessment & Plan (1) Hemorrhagic shock: (2) Acute blood loss anemia: (3) Rectal bleed: (4) Chronic kidney disease, stage 4 (severe): Plan This pt is an 84-year-old male with PMH of permanent A-fib (on Xarelto),HFpEF, recent mitral valve transcatheter repair, bioprosthetic AVR, anemia, secondary hyperparathyroidism, renal cell carcinoma s/p left-sided nephrectomy, CKD stage 4, HTN, gastric bypass surgery, gout, and HLD who p/w rectal bleeding and hemorrhagic shock. #Rectal bleed/Acute blood loss anemia/Hemorrhagic Shock-Hgb 8.4 on arrival, dropped to 7.6 (baseline 10-11). Currently taking Xarelto for atrial fibrill ation-Hypotensive and received 2 units PRBCs and was given Kcentra (2000 units IV) x 1, admitted to ICU for levophed GI consulted urgently and had EGD which showed a normal gastric pouch post Juan-en-Y gastric bypass-could not reach the distal Juan-en-Y anastomosis, no blood seen in upper GI tract and suspects bleeding from the extruded stomach or duodenum suggestive of a gastroduodenal artery type bleed with a bulbar postbulbar duodenal ulcer. Pt was recently placed on ASA 81mg daily after his mitral valve clip/transcatheter repair 1 month ago at [facility]. He is also on Xarelto. Now weaned off Levophed but BPs remain soft, MAPs staying above 65. Continues to be passing melena but hgb remains stable today at 8.7 -continue Protonix gtt -prep for colonoscopy 05/16 -keep on clears for now -continue to hold all home antihypertensives, hold home Xarelto and ASA -home midodrine also on hold -follow serial CBC and transfuse as needed #Permanent Atrial fibrillation-Rate controlled -continue to hold Xarelto and home metoprolol #HFrEF/Bioprosthetic AVR/Mitral clip/Pulm HTN-Last echocardiogram on 04/28/2024 revealed mildly reduced LVEF at 40 to 45%. Has a h/o low BPs requiring midodrine and has not been able to tolerate many CHF medications. Is hypovolemic here from blood loss -continue Strict I&O monitoring,Daily weights -continue to hold torsemide + K supplementation in the setting of GI bleed / hypotension -giving IVFs -follow BMP -holding home ASA #CKD stage 4/s/p Left nephrectomy for RCC- cullet crusher baseline around 2.5-he is at baseline currently -avoid nephrotoxins, renally dose all meds -follow BMP #FIFI-continue CPAP HS + 3L supplemental O2 #H/o gastric bypass-noted, avoid NSAIDs and would recommend against ASA given propensity for ulcers with gastric bypass #gout-no acute issues -continue home allopurinol for prophylaxis DVT Proph-SCDs Dispo-continued stay in ICU Admission and Anticipated Discharge Date Admission Date: May 14, 2024 Subjective Pt had multiple bloody BMs today and is undergoing a bowel prep for colonoscopy. Denies CP, SOB, abd pain, nausea. Tele with Afib, rates controlled I discussed his care with GI and Surgery as well as Combine Inspector ULICES Physical Exam Constitutional: WD/WN, vitals as above Respiratory: normal respiratory effort, lungs clear to auscultation Cardiovascular: Rate/Rhythm: regular rate and + irregularly irregular Heart Sounds: + murmur (2/6 systolic murmur at left base) Gastrointestinal (Abdomen): normal bowel sounds, soft, nontender, no hepatosplenomegaly Psychiatric: A+Ox3, euthymic affect Results & Data Results & Data Vital Signs (Past 12 Hours) Vital Signs Temp Pulse Resp BP Pulse Ox O2 Del Method O2 Flow Rate 05/15/24 18:30 110 H 24 91 05/15/24 18:15 111 H 23 100 05/15/24 18:06 100 H 23 97 05/15/24 17:45 117 H 28 H 91 05/15/24 17:36 92 H 13 100 05/15/24 17:03 110 H 24 100 05/15/24 17:01 94/67 L 05/15/24 17:01 94/67 L 05/15/24 16:57 121 H 27 H 99 05/15/24 16:03 98 H 21 100 05/15/24 16:01 109/78 05/15/24 16:01 109/78 05/15/24 16:01 109/78 05/15/24 16:00 92 H 88/53 L 05/15/24 15:57 96 H 26 H 100 05/15/24 15:03 100 H 100 05/15/24 15:00 91/56 L 05/15/24 14:54 101 H 100 05/15/24 14:05 37.0 C 97 H 29 H 100 05/15/24 14:02 101/71 05/15/24 13:56 36.9 C 89 21 100 05/15/24 13:05 36.7 C 85 16 100 05/15/24 13:00 104/51 L 05/15/24 12:59 36.8 C 98 H 19 100 05/15/24 12:20 36.9 C 99 H 24 95 05/15/24 12:00 88/53 L 05/15/24 12:00 92 H 101/52 L 05/15/24 11:59 36.9 C 109 H 23 98 Room Air 05/15/24 11:55 83/43 L 05/15/24 11:38 36.9 C 90 17 100 05/15/24 11:06 36.8 C 85 21 100 05/15/24 11:00 100/58 L 05/15/24 10:05 36.6 C 84 15 05/15/24 10:00 105/65 05/15/24 09:56 36.6 C 77 18 94 05/15/24 09:00 93/68 L 05/15/24 08:00 36.5 C 77 11 L 99 05/15/24 08:00 107/49 L 05/15/24 08:00 92 H 05/15/24 07:47 81 05/15/24 07:30 CPAP 3 05/15/24 07:30 36.5 C 92 H 24 95 05/15/24 07:15 36.6 C 89 18 100 05/15/24 07:12 36.6 C 74 20 100 Laboratory Results CBC x 2, BMP reviewed PG Care Time/CCT Total # of Minutes Spent Total Time Spent with Patient: Total time spent is greater than 50% in coordination of care (as documented) at patient's floor/unit and/or counseling patient: Coding Level of Care Code 37393 SUB INP/OBS CARE 3/50MIN Diagnoses Hemorrhagic shock R57.8 Acute blood loss anemia D62 Rectal bleed K62.5 Chronic kidney disease, stage 4 (severe) N18.4
[2024-05-15] MEDS: LACTATED RINGER'S 250 ML IV ONE (19:47)
[2024-05-15] MEDS: LACTATED RINGER'S 1,000 ML IV ONE (21:22)
[2024-05-16 01:53] LABS: Hematocrit (blood only) 26.8 % (42.0-52.0); Hemoglobin 8.4 g/dl (14.0-18.0)
[2024-05-16 04:43] LABS: Basophils # (auto) 0.06 K/uL (0.00-0.20); Basophils % (auto) 0.8 %; Eosinophils # (auto) 0.33 K/uL (0.00-0.50); Eosinophils % (auto) 4.6 %; Hematocrit (blood only) 28.1 % (42.0-52.0); Hemoglobin 8.8 g/dl (14.0-18.0); Immature Granulocytes # (auto) 0.01 K/uL (0.01-0.20); Immature Granulocytes % (auto) 0.1 %; Lymphocytes # (auto) 1.24 K/uL (1.20-3.40); Lymphocytes % (auto) 17.2 %; Mean Corpuscular Hemoglobin 25.7 pg (25.0-34.0); Mean Corpuscular Hgb Conc 31.3 g/dL (32.0-36.0); Mean Corpuscular Volume 82.2 fL (80.0-100.0); Mean Platelet Volume 9.9 fL (9.4-12.4); Monocytes # (auto) 0.73 K/uL (0.11-0.59); Monocytes % (auto) 10.1 %; Neutrophils # (auto) 4.83 K/uL (1.40-6.50); Neutrophils % (auto) 67.2 %; Platelet Count 141 K/uL (130-400); RDW Coefficient of Variation 17.6 % (11.5-14.5); RDW Standard Deviation 52.3 fL (36.4-46.3); Red Blood Count 3.42 M/uL (4.70-6.10)
[2024-05-16 05:08] LABS: BUN Creatinine Ratio 24.2 (10-20); Calcium 8.8 mg/dl (8.6-10.3); Creatinine Clr Calc Pharmacy 27.9 ml/min; Magnesium 2.2 mg/dl (1.7-2.4); Phosphorus 3.8 mg/dl (2.5-4.9); Potassium 3.2 mmol/L (3.5-5.1)
[2024-05-16] MEDS: POTASSIUM CHLORIDE / WTR 10 MEQ/100 ML PLCT IV SCH (06:23)
[2024-05-16] MEDS: METOPROLOL TARTRATE 1 MG/ML VIAL IV STA (09:54)
--- NOTE | 2024-05-16 09:59 | History & Physical Bridge Note ---
Date of Service May 16, 2024 History & Physical Bridge Note I have examined the patient, reviewed the History & Physical and in the interval since the performance of the History & Physical I have noted the following changes of clinical significance: Patient with reported mahogony stools. During this admission he underwent an EGD that was unremarkable and it was suspected that bleeding was possibly from an extruded stomach/duodenal ulcer. Dr. King recommended semiurgent colonoscopy with terminal ileum intubation to demonstrate a bleed proximally to the colon. Patient completed prep. - will plan for colonoscopy to further evaluate. Supervising Physician Co-Signing Physician Notes I personally saw and examined the patient. I have reviewed the chart and agree with the documentation provided by the GEAR TECHNICIAN including discussion about the assessment, treatment and plan. Briefly, no obvious source of bleeding noted on the endoscopy. Patient still with some josse stools and anemia. Will plan to do an EGD with TI intubation to rule out a proximal small bowel or right colon source.
--- NOTE | 2024-05-16 12:36 | Hospitalist Progress Note ---
Date of Service May 16, 2024 Assessment & Plan (1) Hemorrhagic shock: Plan: Present on admission. Now resolved. He is off pressor support (2) Acute blood loss anemia: Plan: He has received 2 units packed red blood cells to date. Hemoglobin appears to have stabilized and is now 8.9 today, May 16 (3) Rectal bleed: Plan: Apparent GI bleeding will be further investigated by the GI service with colonoscopy later today, May 16. EGD done earlier this admission revealed gastric bypass status with no obvious source of bleeding seen although the study was incomplete. (4) Chronic kidney disease, stage 4 (severe): Plan: Fortunately currently stable. Monitor intake and output. Serial labs (5) Chronic atrial fibrillation: Plan: Continue rate control. Xarelto was on hold. Telemetry (6) History of aortic valve replacement with bioprosthetic valve: Plan: Xarelto is currently on hold. He also had recent mitral valve repair. Telemetry Plan Anticipate eventual discharge back to home if no further GI bleeding recurs. Admission and Anticipated Discharge Date Admission Date: May 14, 2024 Subjective Alert and oriented. No complaints. He is awaiting colonoscopy evaluation later today, May 16 Review of Systems 2 Review of Systems: Constitutionalno fever or chills ENTno blurred vision, no double vision, no epistaxis, no sore throat Respiratoryno cough, no wheezing, no shortness of breath Cardiacno palpitations, no chest pain, no syncope Daniela nausea, vomiting, diarrhea. Lower GI bleeding appears to have stopped GUno urinary retention, no urinary incontinence, no dysuria, no hematuria Musculoskeletalno joint pain, no muscle tenderness Skinno bruising, no rashes, no pruritus Neurono isolated weakness, no paresthesia, no weakness Psychno depression, no anxiety Physical Exam 2 Physical Exam: General-alert and oriented x3, no fever, no chills HEENT-head atraumatic and normocephalic, pupils equal and reactive to light, extraocular muscles intact Neck-no lymphadenopathy or thyromegaly, trachea midline Chest-clear to auscultation. No rales, wheezing or rhonchi Cardiac-regular rate and rhythm, normal S1 and S2 Abdomen-normal bowel sounds, no hepatosplenomegaly Extremities-no cyanosis, clubbing, or edema Neuro-cranial nerves II through XII intact, motor and sensory function within normal limits, strength symmetrical, no focal deficits Psych-normal affect, normal mood Results & Data Results & Data Vital Signs (Past 12 Hours) Vital Signs Temp Pulse Resp BP Pulse Ox O2 Del Method 05/16/24 11:30 92 H 05/16/24 10:33 37.1 C 85 95 Room Air 05/16/24 10:31 108/59 L 05/16/24 10:15 37.0 C 91 H 19 96 Room Air 05/16/24 10:06 37.0 C 123 H 90 Room Air 05/16/24 10:01 122/70 05/16/24 09:57 37.0 C 122 H 20 97 Room Air 05/16/24 09:54 142 H 108/66 05/16/24 09:30 108/66 05/16/24 09:21 36.9 C 129 H 20 90 Room Air 05/16/24 09:15 36.9 C 126 H 20 91 Room Air 05/16/24 09:00 36.9 C 129 H 20 105/73 94 Room Air 05/16/24 08:03 36.8 C 147 H 16 93 Room Air 05/16/24 08:00 103/68 05/16/24 08:00 Room Air 05/16/24 07:42 118 H 05/16/24 07:33 113 H 21 97 Room Air 05/16/24 07:30 91/61 L 05/16/24 07:21 111 H 19 94 Room Air 05/16/24 07:11 115 H 05/16/24 07:09 108 H 19 91 Room Air 05/16/24 07:00 95/50 L 05/16/24 06:48 103 H 20 05/16/24 06:31 116/68 05/16/24 06:31 116/68 05/16/24 06:03 95 H 11 L 100 05/16/24 06:01 129/95 05/16/24 06:01 129/95 05/16/24 06:00 113 H 19 100 05/16/24 05:54 117 H 43 H 100 05/16/24 05:30 116/77 05/16/24 05:30 116/77 05/16/24 05:15 113 H 22 100 05/16/24 05:03 108 H 0 L 100 05/16/24 05:00 115/98 05/16/24 05:00 115/98 05/16/24 05:00 115/98 05/16/24 04:54 118 H 15 100 05/16/24 04:45 100 H 12 100 05/16/24 04:33 103 H 7 L 100 05/16/24 04:31 126/109 H 05/16/24 04:27 108 H 19 100 05/16/24 04:09 105 H 10 L 100 05/16/24 04:01 130/85 05/16/24 03:33 99 H 19 99 05/16/24 03:31 125/90 05/16/24 03:30 106 H 25 H 100 05/16/24 03:24 100 05/16/24 03:01 107/84 05/16/24 03:01 107/84 05/16/24 03:00 99 H 100 05/16/24 02:45 106 H 99 05/16/24 02:15 97 H 96 05/16/24 02:00 108/83 05/16/24 02:00 108/83 05/16/24 01:54 95 H 100 05/16/24 01:48 108 H 100 05/16/24 01:33 99 H 20 100 05/16/24 01:31 110/66 05/16/24 01:21 108 H 18 100 05/16/24 01:15 121 H 24 100 05/16/24 01:01 116/46 L 05/16/24 01:01 116/46 L 05/16/24 01:00 110 H 24 84 L 05/16/24 00:45 108 H 18 91 05/16/24 00:33 36.6 C Laboratory Results 05/16/24 08:41 05/16/24 04:28 PG Care Time/CCT Total # of Minutes Spent Total Time Spent with Patient: Total time spent is greater than 50% in coordination of care (as documented) at patient's floor/unit and/or counseling patient: Coding Level of Care Code 07481 SUB INP/OBS CARE 2/35MIN Diagnoses Hemorrhagic shock R57.8 Acute blood loss anemia D62 Rectal bleed K62.5 Chronic kidney disease, stage 4 (severe) N18.4 Chronic atrial fibrillation I48.20 History of aortic valve replacement with bioprosthetic valve Z95.3
--- NOTE | 2024-05-16 13:49 | Anesthesiology Consultation ---
Date of Service May 16, 2024 Assessment & Plan Chart Review Chart Review: Acceptable Risk for Surgery and Patient NOT seen in Pre Admission Testing Consults Requested none ASA ASA4 Proposed Anesthesia Anesthesia Type: MAC Risk / Benefits Reviewed With: PT / POA / Parent / Guardian, Accepts Plan and Informed Consent Obtained History Surgery Operation Date: 05/14/24 17:30 Proposed Procedures p Esophagogastroduodenoscopy - Ben King MD Operation Date: 05/16/24 16:45 Proposed Procedures p Colonoscopy Cintia - Uday Chamberlain MD Height/Weight Height: 5 ft 6 in Weight: 105.5 kg Allergies Allergy/AdvReac Type Severity Reaction Status Date / Time iron [From Venofer] AdvReac Mild Vomiting Verified 04/14/24 08:57 Iodinated Contrast Media AdvReac Unknown PT ONLY Verified 04/14/24 08:57 [Iodinated Contrast- Oral HAS 1 and IV Dye] KIDNEY, CONTRAINDICATED. Medications Home Medications Medication Instructions Recorded Confirmed Last Taken amoxicillin 500 mg tablet 2,000 mg PO DIRECTED PRN 1 HOUR 11/16/18 05/14/24 Unknown PRIOR TO DENTAL PROCEDURES cholecalciferol (vitamin D3) 50 50 mcg PO DAILY 07/10/22 05/14/24 2 Days Ago mcg (2,000 unit) capsule (Vitamin ~12/20/23 D3) magnesium 250 mg tablet 250 mg PO HS 07/10/22 05/14/24 2 Days Ago ~12/20/23 cyanocobalamin (vitamin B-12) 1,000 mcg IM Q90D #30 mL 09/23/22 05/14/24 2 Days Ago 1,000 mcg/mL injection solution ~12/20/23 metolazone 5 mg tablet 5 mg PO DAILY PRN weight gain #30 10/23/22 05/14/24 Unknown tabs Portable Oxygen #1 ea 05/25/23 05/13/24 Unknown tamoxifen 20 mg tablet 20 mg PO QAM 12/22/23 05/14/24 2 Days Ago ~12/20/23 docusate sodium 100 mg capsule 100 mg PO DAILY PRN constipation 02/08/24 05/14/24 Unknown #0 caps allopurinol 100 mg tablet 50 mg PO QAM 03/03/24 05/14/24 Unknown calcitriol 0.25 mcg capsule 0.5 mcg (2 x 0.25 mcg) PO QAM #180 04/01/24 05/14/24 Unknown caps rivaroxaban 15 mg tablet 15 mg PO HS #90 tabs 04/01/24 05/14/24 Unknown tramadol 50 mg tablet 50 mg PO BID PRN Pain #60 tabs 04/01/24 05/14/24 Unknown midodrine 10 mg tablet 10 mg PO TID@0800,1200,1700 #270 04/04/24 05/14/24 Unknown tabs aspirin 81 mg chewable tablet 81 mg PO DAILY 05/13/24 05/14/24 Unknown cyclobenzaprine 5 mg tablet 5 mg PO BID PRN muscle 05/13/24 05/14/24 Unknown pain/stiffness metoprolol succinate 100 mg 100 mg PO BID 05/13/24 05/14/24 Unknown tablet,extended release 24 hr (Toprol XL) potassium chloride 10 mEq 20 meq PO BID 05/13/24 05/14/24 Unknown capsule,extended release torsemide 100 mg tablet 100 mg PO BID 05/13/24 05/14/24 Unknown Active Medications Generic Name Dose Route Start Last Admin Trade Name Freq PRN Reason Stop Dose Admin Pantoprazole Sodium 40 mg/ 100 mls @ 20 mls/hr 05/14/24 20:15 05/16/24 07:15 Dextrose IV 06/13/24 20:14 8 mg/hr Q5H BEHZAD 20 mls/hr Administration 8 MG/HR NPO Date Last Intake of Fluids: 05/16/24 Time Last Intake of Fluids: 01:00 Last Intake of Fluids Comment: sip water w/ meds @ 0700 Date Last Intake of Solids: 05/14/24 Time Last Intake of Solids: 07:00 Past Medical History Medical History Congestive heart failure Chronic dental pain Hypotension Chronic renal insufficiency, stage IV (severe) Iron deficiency anemia Obstructive sleep apnea BIPAP Diabetes mellitus Aspiration into respiratory tract Acute kidney injury superimposed on CKD Morbid obesity History of anxiety Hx of gout Hx of rotator cuff tear Difficulty with raising arms without extreme pain, currently in PT Hx of osteoarthritis Hx of impacted cerumen History of COVID-19 01/2021 > "mild" cold symptoms, resolved Prediabetes Kidney stones Hx x7 Renal cell adenocarcinoma s/p nephrectomy Chronic kidney disease, stage III (moderate) CKD (chronic kidney disease), stage III Exercise / Class Metabolic Activity II 4-5 Yardwork/Stairs/Walk up hill Past Family History Family History Mother Breast cancer Lung disease Grandmother (Maternal) Breast cancer Aunt Breast cancer Sister Breast cancer Father Myocardial infarction Arthritis Denies family history of Ovarian cancer Prostate cancer Colorectal cancer Past Surgical History Surgical History H/O aortic valve replacement Hx of cardiac catheterization 11/2020 > no stents History of total bilateral knee replacement History of esophagogastroduodenoscopy (EGD) Hx of colonoscopy Hx of tonsillectomy Hx of cystoscopy w/stone basketing History of left nephrectomy History of spinal surgery Aortic valve replaced bioprosthesis, 2006 History of gastric bypass History of cholecystectomy Past Anesthesia History No Hx of Anesthesia Complications and No Family Hx of Anesthesia Complications History of PONV No Hx of PONV and No Hx of Motion Sickness Social History Smoking Status: Never smoker Do You Dip or Chew Tobacco: No Hx Alcohol Use: No alcohol intake frequency: holidays/special occasions only Hx Substance Use: No substance use type: does not use Physical Exam Vital Signs Last Vital Signs Temp 36.8 C 05/16/24 13:33 Pulse 105 H 05/16/24 13:33 Resp 20 05/16/24 13:33 BP 99/68 L 05/16/24 13:33 Pulse Ox 95 05/16/24 13:33 O2 Del Method Room Air 05/16/24 13:33 O2 Flow Rate 3 05/15/24 20:00 Constitutional + obese ENMT Mouth: no dentition abnormality Thyromental Distance: > or= 3.5 Finger Breadths Mallampati Class: II Neck normal visual inspection and + thick neck Respiratory normal respiratory effort Auscultation: lungs clear to auscultation bilaterally Cardiovascular Rate/Rhythm: + tachycardic; + abnormal rate (afib) Extremities: + edema Neurologic resting tremor Psychiatric Orientation: alert Testing Laboratory Results 05/16/24 08:41 05/16/24 04:28 PT 11.8 Seconds (9.0-12.0) 05/14/24 12:06 INR 1.1 (0.9-1.1) 05/14/24 12:06 APTT 26 Seconds (21-31) 05/14/24 12:06 Blood Type O Positive 05/14/24 12:06 Antibody Screen NEGATIVE 05/14/24 12:06 Electrocardiogram Date: 05/14/24 Findings: + AFIB @ (@ 87;NS ST T wave abnl) Chest X-Ray Date: 05/14/24 Findings: + NAD and + cardiomegaly Echocardiogram Date: 04/28/24 EF: 40% LV Function: dysfunctional RWMA: + hypokinetic (diffuse HK) Valvular Disease: + AI (mild AI via bioprosthetic AV) and + MR (moderate) mildly decreased RV systolic function
--- NOTE | 2024-05-16 14:41 | GI REPORT ---
[facility] Patient: MYESHA TRAN : 1940 Sex at : Male Age: 84 Years Procedure: Colonoscopy Date: 05/16/2024 Attending Physician: Uday Chamberlain MD Referring MD: Glenn Rodriguez Indications: - Rectal bleeding - Acute post hemorrhagic anemia Medications: - Monitored Anesthesia Care Complications: - No immediate complications. Estimated Blood Loss: - Estimated blood loss: None. - Estimated blood loss was minimal. Procedure: - Prior to the procedure, a History and Physical was performed, and patient medications and allergies were reviewed. The patient's tolerance of previous anesthesia was also reviewed. The risks and benefits of the procedure and the sedation options and risks were discussed with the patient. All questions were answered, and informed consent was obtained. Prior Anticoagulants: The patient has taken Eliquis (apixaban), last dose was 4 days prior to procedure. ASA Grade Assessment: IV - A patient with severe systemic disease that is a constant threat to life. After reviewing the risks and benefits, the patient was deemed in satisfactory condition to undergo the procedure. - The pediatric colonoscope was introduced through the anus and advanced to the terminal ileum, with identification of the appendiceal orifice and ileocecal valve. - The colonoscopy was performed without difficulty. - The patient tolerated the procedure well. - The quality of the bowel preparation was adequate. - The terminal ileum, ileocecal valve, appendiceal orifice, and rectum were photographed. Findings: - The terminal ileum appeared normal. - The exam was otherwise without abnormality on direct and retroflexion views. - Three sessile polyps were found in the cecum. The polyps were medium (7-9 mm) in size. These polyps were removed with a cold snare. Resection and retrieval were complete. - Two semi-pedunculated polyps were found in the ascending colon. The polyps were large (1 cm or greater) in size. These polyps were removed with a hot snare. Resection and retrieval were complete. To prevent bleeding after the polypectomy, one hemostatic clip was successfully placed. There was no bleeding at the end of the procedure. - Three sessile polyps were found in the ascending colon. The polyps were medium (7-9 mm) in size. These polyps were removed with a cold snare. Resection and retrieval were complete. - Three semi-pedunculated polyps were found in the rectum. The polyps were medium (7-9 mm) in size. These polyps were removed with a hot snare. Resection and retrieval were complete. - Internal hemorrhoids were found during retroflexion. The hemorrhoids were small. - Multiple medium-mouthed diverticula were found in the right colon, descending colon and sigmoid colon. There was no evidence of diverticular bleeding. Impression: - The examined portion of the ileum was normal. - The examination was otherwise normal on direct and retroflexion views. - Three medium (7-9 mm) polyps in the cecum, removed with a cold snare. Resected and retrieved. - Two large (1 cm or greater) polyps in the ascending colon, removed with a hot snare. Resected and retrieved. Clip was placed. - Three medium (7-9 mm) polyps in the ascending colon, removed with a cold snare. Resected and retrieved. - Three medium (7-9 mm) polyps in the rectum, removed with a hot snare. Resected and retrieved. - Internal hemorrhoids. - Moderate diverticulosis in the right colon, in the descending colon and in the sigmoid colon. There was no evidence of diverticular bleeding. Recommendation: - Discharge patient to home (ambulatory). - Resume previous diet. - Continue present medications. - Repeat colonoscopy in 1 year for surveillance based on pathology results. - Return to referring physician as previously scheduled. - Patient has a contact number available for emergencies. The signs and symptoms of potential delayed complications were discussed with the patient. Return to normal activities tomorrow. Written discharge instructions were provided to the patient. - Resume Eliquis (apixaban) at prior dose in 3 days. Procedure Code(s): - 74761, Colonoscopy, flexible; with removal of tumor(s), polyp(s), or other lesion(s) by snare technique Diagnosis Code(s): - K62.5, Hemorrhage of anus and rectum - D62, Acute posthemorrhagic anemia - D12.0, Benign neoplasm of cecum - D12.2, Benign neoplasm of ascending colon - D12.8, Benign neoplasm of rectum - K64.8, Other hemorrhoids - K57.30, Diverticulosis of large intestine without perforation or abscess without bleeding CPT(R) - 2023 copyright [employer]. All Rights Reserved. The CPT codes, CCI edits and ICD codes generated are intended as suggestions and were generated based on input data. These codes are preliminary and upon sales clerk food review may be revised to meet current compliance and payer requirements. The provider is responsible for the final determination of appropriate codes, and modifiers. Uday Chamberlain MD This document has been electronically signed. Note Initiated:05/16/2024 Note Completed:05/16/2024 2:41 PM \\[id number]
--- NOTE | 2024-05-16 16:03 | Anesthesiology Progress Note ---
Date of Service May 16, 2024 Anesthesia Post Procedure Vital Signs Vital Signs: Temp Pulse Pulse Resp BP BP Pulse Ox 05/16/24 15:05 91 H 19 95/53 L 97 05/16/24 14:53 113 H 20 108/63 94 05/16/24 14:36 113 H 20 93/62 L 100 05/16/24 13:33 36.8 C 105 H 20 99/68 L 95 05/16/24 11:30 92 H 05/16/24 10:33 37.1 C 85 95 05/16/24 10:31 108/59 L 05/16/24 10:15 37.0 C 91 H 19 96 05/16/24 10:06 37.0 C 123 H 90 05/16/24 10:01 122/70 05/16/24 09:57 37.0 C 122 H 20 97 05/16/24 09:54 142 H 108/66 05/16/24 09:30 108/66 05/16/24 09:21 36.9 C 129 H 20 90 05/16/24 09:15 36.9 C 126 H 20 91 05/16/24 09:00 36.9 C 129 H 20 105/73 94 05/16/24 08:03 36.8 C 147 H 16 93 05/16/24 08:00 103/68 05/16/24 08:00 05/16/24 07:42 118 H 05/16/24 07:33 113 H 21 97 05/16/24 07:30 91/61 L 05/16/24 07:21 111 H 19 94 05/16/24 07:11 115 H 05/16/24 07:09 108 H 19 91 05/16/24 07:00 95/50 L 05/16/24 06:48 103 H 20 05/16/24 06:31 116/68 05/16/24 06:31 116/68 05/16/24 06:03 95 H 11 L 100 05/16/24 06:01 129/95 05/16/24 06:01 129/95 05/16/24 06:00 113 H 19 100 05/16/24 05:54 117 H 43 H 100 05/16/24 05:30 116/77 05/16/24 05:30 116/77 05/16/24 05:15 113 H 22 100 05/16/24 05:03 108 H 0 L 100 05/16/24 05:00 115/98 05/16/24 05:00 115/98 05/16/24 05:00 115/98 05/16/24 04:54 118 H 15 100 05/16/24 04:45 100 H 12 100 05/16/24 04:33 103 H 7 L 100 05/16/24 04:31 126/109 H 05/16/24 04:27 108 H 19 100 05/16/24 04:09 105 H 10 L 100 05/16/24 04:01 130/85 05/16/24 03:33 99 H 19 99 05/16/24 03:31 125/90 05/16/24 03:30 106 H 25 H 100 05/16/24 03:24 100 05/16/24 03:01 107/84 05/16/24 03:01 107/84 05/16/24 03:00 99 H 100 05/16/24 02:45 106 H 99 05/16/24 02:15 97 H 96 05/16/24 02:00 108/83 05/16/24 02:00 108/83 05/16/24 01:54 95 H 100 05/16/24 01:48 108 H 100 05/16/24 01:33 99 H 20 100 05/16/24 01:31 110/66 05/16/24 01:21 108 H 18 100 05/16/24 01:15 121 H 24 100 05/16/24 01:01 116/46 L 05/16/24 01:01 116/46 L 05/16/24 01:00 110 H 24 84 L 05/16/24 00:45 108 H 18 91 05/16/24 00:33 36.6 C 05/16/24 00:24 103 H 22 87 L 05/16/24 00:00 93/71 L 05/16/24 00:00 98 H 22 91 05/16/24 00:00 110 H 05/15/24 23:51 108 H 21 91 05/15/24 23:31 101/61 05/15/24 23:31 101/61 05/15/24 23:30 99 H 19 97 05/15/24 23:24 114 H 25 H 94 05/15/24 23:02 124/77 05/15/24 23:00 110 H 27 H 92 05/15/24 22:45 117 H 21 93 05/15/24 22:30 124/104 H 05/15/24 22:30 124 H 19 92 05/15/24 22:06 126 H 26 H 92 05/15/24 22:01 98/71 L 05/15/24 22:01 98/71 L 05/15/24 21:51 107 H 26 H 91 05/15/24 21:31 104/51 L 05/15/24 21:31 104/51 L 05/15/24 21:30 119 H 18 88 L 05/15/24 21:21 107 H 20 91 05/15/24 21:09 113 H 21 89 L 05/15/24 20:51 118 H 19 89 L 05/15/24 20:31 107/65 05/15/24 20:31 107/65 05/15/24 20:31 107/65 05/15/24 20:30 103 H 25 H 87 L 05/15/24 20:15 105 H 14 96 05/15/24 20:00 105/55 L 05/15/24 20:00 120 H 36 H 94 05/15/24 20:00 36.6 C 05/15/24 20:00 05/15/24 20:00 110 H 05/15/24 19:54 102 H 21 95 05/15/24 19:21 110 H 16 88 L 05/15/24 19:06 107 H 15 97 05/15/24 19:02 89/72 L 05/15/24 19:02 89/72 L 05/15/24 18:30 110 H 24 91 05/15/24 18:15 111 H 23 100 05/15/24 18:06 100 H 23 97 05/15/24 17:45 117 H 28 H 91 05/15/24 17:36 92 H 13 100 05/15/24 17:03 110 H 24 100 05/15/24 17:01 94/67 L 05/15/24 17:01 94/67 L 05/15/24 16:57 121 H 27 H 99 05/15/24 16:03 98 H 21 100 O2 Del Method O2 Flow Rate 05/16/24 15:05 Room Air 05/16/24 14:53 Room Air 05/16/24 14:36 Oxymask 10 05/16/24 13:33 Room Air 05/16/24 11:30 05/16/24 10:33 Room Air 05/16/24 10:31 05/16/24 10:15 Room Air 05/16/24 10:06 Room Air 05/16/24 10:01 05/16/24 09:57 Room Air 05/16/24 09:54 05/16/24 09:30 05/16/24 09:21 Room Air 05/16/24 09:15 Room Air 05/16/24 09:00 Room Air 05/16/24 08:03 Room Air 05/16/24 08:00 05/16/24 08:00 Room Air 05/16/24 07:42 05/16/24 07:33 Room Air 05/16/24 07:30 05/16/24 07:21 Room Air 05/16/24 07:11 05/16/24 07:09 Room Air 05/16/24 07:00 05/16/24 06:48 05/16/24 06:31 05/16/24 06:31 05/16/24 06:03 05/16/24 06:01 05/16/24 06:01 05/16/24 06:00 05/16/24 05:54 05/16/24 05:30 05/16/24 05:30 05/16/24 05:15 05/16/24 05:03 05/16/24 05:00 05/16/24 05:00 05/16/24 05:00 05/16/24 04:54 05/16/24 04:45 05/16/24 04:33 05/16/24 04:31 05/16/24 04:27 05/16/24 04:09 05/16/24 04:01 05/16/24 03:33 05/16/24 03:31 05/16/24 03:30 05/16/24 03:24 05/16/24 03:01 05/16/24 03:01 05/16/24 03:00 05/16/24 02:45 05/16/24 02:15 05/16/24 02:00 05/16/24 02:00 05/16/24 01:54 05/16/24 01:48 05/16/24 01:33 05/16/24 01:31 05/16/24 01:21 05/16/24 01:15 05/16/24 01:01 05/16/24 01:01 05/16/24 01:00 05/16/24 00:45 05/16/24 00:33 05/16/24 00:24 05/16/24 00:00 05/16/24 00:00 05/16/24 00:00 05/15/24 23:51 05/15/24 23:31 05/15/24 23:31 05/15/24 23:30 05/15/24 23:24 05/15/24 23:02 05/15/24 23:00 05/15/24 22:45 05/15/24 22:30 05/15/24 22:30 05/15/24 22:06 05/15/24 22:01 05/15/24 22:01 05/15/24 21:51 05/15/24 21:31 05/15/24 21:31 05/15/24 21:30 05/15/24 21:21 05/15/24 21:09 05/15/24 20:51 05/15/24 20:31 05/15/24 20:31 05/15/24 20:31 05/15/24 20:30 05/15/24 20:15 05/15/24 20:00 05/15/24 20:00 05/15/24 20:00 05/15/24 20:00 CPAP 3 05/15/24 20:00 05/15/24 19:54 05/15/24 19:21 05/15/24 19:06 05/15/24 19:02 05/15/24 19:02 05/15/24 18:30 05/15/24 18:15 05/15/24 18:06 05/15/24 17:45 05/15/24 17:36 05/15/24 17:03 05/15/24 17:01 05/15/24 17:01 05/15/24 16:57 05/15/24 16:03 Transfer of Care Handoff Completed per policy Notes Mental Status: alert / awake / arousable Patient Amnestic to Procedure: Yes Nausea / Vomiting: adequately controlled Pain: adequately controlled Airway Patency, RR, SpO2: stable & adequate BP & HR: stable & adequate Hydration State: stable & adequate Anesthetic Complications: no major complications apparent
--- NOTE | 2024-05-16 16:58 | Critical Care Progress Note ---
Date of Service May 16, 2024 Assessment & Plan (1) Acute GI bleeding: (2) Hypovolemic shock: (3) Permanent atrial fibrillation with RVR: (4) DEONNA (acute kidney injury): Plan Reason Critically Ill: 84 YOM present with GI bleed unspecified source. Neuro - No acute needs CAM ICU: Negative - follow post sedation recovery Cardiac -hemorrhagic shock resolved Off vasopressor agents. Holding midodrine as the patient is n.p.o. currently. Multiple cardiac issues. Holding anticoagulation Respiratory -oxygen as needed to maintain saturations at or above 90%. Incentive spirometry. Nightly BiPAP GI - Acute GI bleed. EGD unable to completely visualize or localize sites of bleeding. CT angiogram did not show active extravasation. Hemoglobin relatively stable. Underwent colonoscopy today -Advance diet to clears RENAL/LYTES - DEONNA on CKD, Hx of renal cell carcinoma with left nephrectomy, at risk for worsening given recent contrast administration. Continue to trend. Acid-base status acceptable. Holding diuretics. - No acute needs at this time - Talavera to trend urine output ENDO -glycemic control per ICU protocol HEME -acute blood loss anemia. Status post PCC. Holding anticoagulation. Serial hemoglobin and hematocrit. ID - No concern at this time for infectious etiology LINES/IV ACCESS - PIV x4, Talavera, Arterial Line Continue use of these lines DVT PROPHYLAXIS - SCDS, Hold chemoprophylaxis in setting of hemorrhagic shock DISPO: ICU Admission and Anticipated Discharge Date Admission Date: May 14, 2024 Supervising Physician Co-Signing Physician Notes I have personally spent 40 minutes of critical care time in the direct management of this patient. This is a life/limb threatening event. This includes time spent evaluating patient, direct bedside care, chart review, placing orders, interpretation of diagnostic studies, discussion with consultants, patient, and/or family members regarding treatment decisions, as well as other required patient management activities. This time is exclusive of all separately billable procedures, and teaching time and separate from and in addition to any other critical care service time. Subjective No overnight events Physical Exam Physical Exam: General: Alert. nontoxic. Skin: Warm, dry, Head: Atraumatic Ears, nose, mouth and throat: airway patent Cardiovascular: Normal peripheral perfusion Respiratory: no respiratory distress Gastrointestinal: Non distended Musculoskeletal: No deformity Results & Data Results & Data Vital Signs (Past 12 Hours) Vital Signs Temp Pulse Pulse Resp BP BP Pulse Ox 02/17/25 16:00 107 H 05/16/24 15:05 91 H 19 95/53 L 97 05/16/24 14:53 113 H 20 108/63 94 05/16/24 14:36 113 H 20 93/62 L 100 05/16/24 13:33 36.8 C 105 H 20 99/68 L 95 05/16/24 11:30 92 H 05/16/24 10:33 37.1 C 85 95 05/16/24 10:31 108/59 L 05/16/24 10:15 37.0 C 91 H 19 96 05/16/24 10:06 37.0 C 123 H 90 05/16/24 10:01 122/70 05/16/24 09:57 37.0 C 122 H 20 97 05/16/24 09:54 142 H 108/66 05/16/24 09:30 108/66 05/16/24 09:21 36.9 C 129 H 20 90 05/16/24 09:15 36.9 C 126 H 20 91 05/16/24 09:00 36.9 C 129 H 20 105/73 94 05/16/24 08:03 36.8 C 147 H 16 93 05/16/24 08:00 103/68 05/16/24 08:00 05/16/24 07:42 118 H 05/16/24 07:33 113 H 21 97 05/16/24 07:30 91/61 L 05/16/24 07:21 111 H 19 94 05/16/24 07:11 115 H 05/16/24 07:09 108 H 19 91 05/16/24 07:00 95/50 L 05/16/24 06:48 103 H 20 05/16/24 06:31 116/68 05/16/24 06:31 116/68 05/16/24 06:03 95 H 11 L 100 05/16/24 06:01 129/95 05/16/24 06:01 129/95 05/16/24 06:00 113 H 19 100 05/16/24 05:54 117 H 43 H 100 05/16/24 05:30 116/77 05/16/24 05:30 116/77 05/16/24 05:15 113 H 22 100 05/16/24 05:03 108 H 0 L 100 05/16/24 05:00 115/98 05/16/24 05:00 115/98 05/16/24 05:00 115/98 05/16/24 04:54 118 H 15 100 O2 Del Method O2 Flow Rate 05/16/24 16:00 05/16/24 15:05 Room Air 05/16/24 14:53 Room Air 05/16/24 14:36 Oxymask 10 05/16/24 13:33 Room Air 05/16/24 11:30 05/16/24 10:33 Room Air 05/16/24 10:31 05/16/24 10:15 Room Air 05/16/24 10:06 Room Air 05/16/24 10:01 05/16/24 09:57 Room Air 05/16/24 09:54 05/16/24 09:30 05/16/24 09:21 Room Air 05/16/24 09:15 Room Air 05/16/24 09:00 Room Air 05/16/24 08:03 Room Air 05/16/24 08:00 05/16/24 08:00 Room Air 05/16/24 07:42 05/16/24 07:33 Room Air 05/16/24 07:30 05/16/24 07:21 Room Air 05/16/24 07:11 05/16/24 07:09 Room Air 05/16/24 07:00 05/16/24 06:48 05/16/24 06:31 05/16/24 06:31 05/16/24 06:03 05/16/24 06:01 05/16/24 06:01 05/16/24 06:00 05/16/24 05:54 05/16/24 05:30 05/16/24 05:30 05/16/24 05:15 05/16/24 05:03 05/16/24 05:00 05/16/24 05:00 05/16/24 05:00 05/16/24 04:54 Critical Care Results & Data Vital Signs (Past 12 Hours) Vital Signs Temp Pulse Pulse Resp BP BP Pulse Ox 05/16/24 16:00 107 H 05/16/24 15:05 91 H 19 95/53 L 97 05/16/24 14:53 113 H 20 108/63 94 05/16/24 14:36 113 H 20 93/62 L 100 05/16/24 13:33 36.8 C 105 H 20 99/68 L 95 05/16/24 11:30 92 H 05/16/24 10:33 37.1 C 85 95 05/16/24 10:31 108/59 L 05/16/24 10:15 37.0 C 91 H 19 96 05/16/24 10:06 37.0 C 123 H 90 05/16/24 10:01 122/70 05/16/24 09:57 37.0 C 122 H 20 97 05/16/24 09:54 142 H 108/66 05/16/24 09:30 108/66 05/16/24 09:21 36.9 C 129 H 20 90 05/16/24 09:15 36.9 C 126 H 20 91 05/16/24 09:00 36.9 C 129 H 20 105/73 94 05/16/24 08:03 36.8 C 147 H 16 93 05/16/24 08:00 103/68 05/16/24 08:00 05/16/24 07:42 118 H 05/16/24 07:33 113 H 21 97 05/16/24 07:30 91/61 L 05/16/24 07:21 111 H 19 94 05/16/24 07:11 115 H 05/16/24 07:09 108 H 19 91 05/16/24 07:00 95/50 L 05/16/24 06:48 103 H 20 05/16/24 06:31 116/68 05/16/24 06:31 116/68 05/16/24 06:03 95 H 11 L 100 05/16/24 06:01 129/95 05/16/24 06:01 129/95 05/16/24 06:00 113 H 19 100 05/16/24 05:54 117 H 43 H 100 05/16/24 05:30 116/77 05/16/24 05:30 116/77 05/16/24 05:15 113 H 22 100 05/16/24 05:03 108 H 0 L 100 05/16/24 05:00 115/98 05/16/24 05:00 115/98 05/16/24 05:00 115/98 05/16/24 04:54 118 H 15 100 O2 Del Method O2 Flow Rate 05/16/24 16:00 05/16/24 15:05 Room Air 05/16/24 14:53 Room Air 05/16/24 14:36 Oxymask 10 05/16/24 13:33 Room Air 05/16/24 11:30 05/16/24 10:33 Room Air 05/16/24 10:31 05/16/24 10:15 Room Air 05/16/24 10:06 Room Air 05/16/24 10:01 05/16/24 09:57 Room Air 05/16/24 09:54 05/16/24 09:30 05/16/24 09:21 Room Air 05/16/24 09:15 Room Air 05/16/24 09:00 Room Air 05/16/24 08:03 Room Air 05/16/24 08:00 05/16/24 08:00 Room Air 05/16/24 07:42 05/16/24 07:33 Room Air 05/16/24 07:30 05/16/24 07:21 Room Air 05/16/24 07:11 05/16/24 07:09 Room Air 05/16/24 07:00 05/16/24 06:48 05/16/24 06:31 05/16/24 06:31 05/16/24 06:03 05/16/24 06:01 05/16/24 06:01 05/16/24 06:00 05/16/24 05:54 05/16/24 05:30 05/16/24 05:30 05/16/24 05:15 05/16/24 05:03 05/16/24 05:00 05/16/24 05:00 05/16/24 05:00 05/16/24 04:54 Lab & Micro Results (Past 24 Hours) RBC 3.42 M/uL (4.70-6.10) L 05/16/24 WBC 7.20 K/ul (4.8-10.8) 05/16/24 Hgb 8.9 g/dl (14.0-18.0) L 05/16/24 Hct 28.1 % (42.0-52.0) L 05/16/24 MCV 82.2 fL (80.0-100.0) 05/16/24 MCH 25.7 pg (25.0-34.0) 05/16/24 MCHC 31.3 g/dL (32.0-36.0) L 05/16/24 RDW Standard Deviation 52.3 fL (36.4-46.3) H 05/16/24 RDW Coefficient of Variation 17.6 % (11.5-14.5) H 05/16/24 Plt Count 141 K/uL (130-400) 05/16/24 MPV 9.9 fL (9.4-12.4) 05/16/24 Neutrophils (%) (Auto) 67.2 % 05/16/24 Lymphocytes (%) (Auto) 17.2 % 05/16/24 Monocytes # (Auto) 0.73 K/uL (0.11-0.59) H 05/16/24 Eosinophils # (Auto) 0.33 K/uL (0.00-0.50) 05/16/24 Immature Granulocyte % (Auto) 0.1 % 05/16/24 Neutrophils # (Auto) 4.83 K/uL (1.40-6.50) 05/16/24 Lymphocytes # (Auto) 1.24 K/uL (1.20-3.40) 05/16/24 Monocytes # (Auto) 0.73 K/uL (0.11-0.59) H 05/16/24 Eosinophils # (Auto) 0.33 K/uL (0.00-0.50) 05/16/24 Basophils # (Auto) 0.06 K/uL (0.00-0.20) 05/16/24 Immature Granulocyte # (Auto) 0.01 K/uL (0.01-0.20) 5 Na 142 mmol/L (136-145) 05/16/24 K 3.2 mmol/L (3.5-5.1) L 05/16/24 Cl 108 mmol/L (98-107) H 05/16/24 CO2 29 mmol/L (21-32) 05/16/24 Anion Gap 5 (3-11) 05/16/24 BUN 55 mg/dl (6-23) H 05/16/24 Creatinine 2.27 mg/dl (0.6-1.4) H 05/16/24 BUN/Creatinine Ratio 24.2 (10-20) H 05/16/24 Glu 111 mg/dl (70-99(Fasting)) H 05/16/24 Ca 8.8 mg/dl (8.6-10.3) 05/16/24 Phosphorus Level 3.8 mg/dl (2.5-4.9) 05/16/24 Mg 2.2 mg/dl (1.7-2.4) 05/16/24 04:28 Calcium Level 8.8 mg/dl (8.6-10.3) 05/16/24 04:28 Ionized Calcium 1.19 mmol/L (1.12-1.32) 05/16/24 04:28 I & O Totals 24 Hours 05/15/24 05/16/24 05/17/24 06:59 06:59 06:59 Intake Total 2932.899 / 2932.899 3440 / 3440 1068.667 / 1068.667 Output Total 875 / 875 1575 / 1575 515 / 515 Balance 2057.899 / 2057.899 1865 / 1865 553.667 / 553.667 Cumulative 05/14/24 11:42 thru 05/16/24 16:00 Intake Total 7441.566 Output Total 2965 Balance 4476.566 RT Ventilator Mngmt (Last Documented) Ventilator Ordered Settings Respiratory Rate 19 05/16/24 15:05 Ventilator - PT Measurements Respiratory Rate 19 Coding Level of Care Code 42440 CRITICAL CARE 1ST 30-74M Diagnoses Acute GI bleeding K92.2 Hypovolemic shock R57.1 Permanent atrial fibrillation with RVR I48.21 DEONNA (acute kidney injury) N17.9
[2024-05-16] MEDS: LIDOCAINE 2% 2 ML VIAL/AMP(20MG/ML) INFIL ONE (17:09)
[2024-05-16] MEDS: PHENYLEPHRINE 100MCG/ML 5ML SYR ONE ×2 (17:09)
[2024-05-16] MEDS: PROPOFOL IV EMULSION 10 MG/ML 20 ML VIAL IV ONE (17:09)
[2024-05-16] MEDS: METOPROLOL SUCC 50MG EXT REL TAB PO SCH (19:43)
[2024-05-16 21:46] LABS: Hematocrit (blood only) 27.9 % (42.0-52.0); Hemoglobin 8.7 g/dl (14.0-18.0)
[2024-05-17 05:34] LABS: Basophils # (auto) 0.04 K/uL (0.00-0.20); Basophils % (auto) 0.6 %; Eosinophils # (auto) 0.34 K/uL (0.00-0.50); Eosinophils % (auto) 4.8 %; Hematocrit (blood only) 26.1 % (42.0-52.0); Hemoglobin 8.1 g/dl (14.0-18.0); Immature Granulocytes # (auto) 0.03 K/uL (0.01-0.20); Immature Granulocytes % (auto) 0.4 %; Lymphocytes # (auto) 0.93 K/uL (1.20-3.40); Lymphocytes % (auto) 13.2 %; Mean Corpuscular Hemoglobin 25.8 pg (25.0-34.0); Mean Corpuscular Volume 83.1 fL (80.0-100.0); Mean Platelet Volume 9.9 fL (9.4-12.4); Monocytes # (auto) 0.57 K/uL (0.11-0.59); Monocytes % (auto) 8.1 %; Neutrophils # (auto) 5.11 K/uL (1.40-6.50); Neutrophils % (auto) 72.9 %; Platelet Count 131 K/uL (130-400); RDW Coefficient of Variation 17.8 % (11.5-14.5); RDW Standard Deviation 53.1 fL (36.4-46.3); Red Blood Count 3.14 M/uL (4.70-6.10); White Blood Count 7.02 K/ul (4.8-10.8)
[2024-05-17 05:59] LABS: BUN Creatinine Ratio 20.8 (10-20); Calcium 8.9 mg/dl (8.6-10.3); Creatinine Clr Calc Pharmacy 31.2 ml/min; Magnesium 2.2 mg/dl (1.7-2.4); Phosphorus 4.1 mg/dl (2.5-4.9); Potassium 3.4 mmol/L (3.5-5.1)
[2024-05-17] MEDS: ASPIRIN 81 MG CHEW PO SCH (08:05)
[2024-05-17] MEDS: allopurinoL 100 MG TAB PO SCH (08:06)
[2024-05-17] MEDS: TAMOXIFEN CITRATE 10 MG TABLET PO SCH (08:06)
[2024-05-17] MEDS: TORSEMIDE 100 MG TAB PO SCH (08:06)
--- NOTE | 2024-05-17 09:40 | Critical Care Progress Note ---
Date of Service May 17, 2024 Assessment & Plan (1) Acute GI bleeding: (2) Hypovolemic shock: (3) Permanent atrial fibrillation with RVR: (4) DEONNA (acute kidney injury): Plan Reason Critically Ill: 84 YOM present with GI bleed unspecified source. Neuro - No acute needs CAM ICU: Negative Cardiac -hemorrhagic shock resolved Off vasopressor agents. Holding midodrine as the patient is n.p.o. currently. Multiple cardiac issues. Holding anticoagulation Respiratory -oxygen as needed to maintain saturations at or above 90%. Incentive spirometry. Nightly BiPAP GI - Acute GI bleed. EGD unable to completely visualize or localize sites of bleeding. CT angiogram did not show active extravasation. Hemoglobin relatively stable. Underwent colonoscopy 05/16 -Advance diet as tolerated RENAL/LYTES - DEONNA on CKD, Hx of renal cell carcinoma with left nephrectomy, at risk for worsening given recent contrast administration. Continue to trend. Acid-base status acceptable. Holding diuretics. - No acute needs at this time ENDO -glycemic control per ICU protocol HEME -acute blood loss anemia. Status post PCC. Holding anticoagulation. Serial hemoglobin and hematocrit. ID - No concern at this time for infectious etiology LINES/IV ACCESS - PIV x4, DVT PROPHYLAXIS - SCDS, Hold chemoprophylaxis given recent GI hemorrhage DISPO: Stable for downgrade out of ICU Admission and Anticipated Discharge Date Admission Date: May 14, 2024 Subjective No overnight events Results & Data Results & Data Vital Signs (Past 12 Hours) Vital Signs Temp Pulse Resp BP Pulse Ox O2 Del Method 05/17/24 08:00 Room Air 05/17/24 08:00 89 05/17/24 06:33 36.8 C 85 19 91 05/17/24 06:15 36.8 C 102 H 11 L 91 05/17/24 06:03 36.8 C 92 H 26 H 93 05/17/24 06:00 116/86 05/17/24 06:00 116/86 05/17/24 05:54 36.8 C 84 24 93 05/17/24 05:48 36.8 C 87 19 93 05/17/24 05:30 36.8 C 69 22 100 05/17/24 05:15 36.8 C 81 30 H 100 05/17/24 05:00 100/70 05/17/24 05:00 100/70 05/17/24 05:00 100/70 05/17/24 04:45 36.8 C 76 21 100 05/17/24 04:30 36.9 C 77 19 96 05/17/24 04:15 36.9 C 79 22 100 05/17/24 04:09 36.9 C 73 21 99 05/17/24 04:01 81/49 L 05/17/24 04:01 81/49 L 05/17/24 03:54 36.9 C 83 19 100 05/17/24 03:45 36.9 C 75 21 94 05/17/24 03:33 36.9 C 85 34 H 100 05/17/24 03:15 36.8 C 110 H 43 H 99 05/17/24 03:09 36.8 C 94 H 27 H 94 05/17/24 03:00 125/85 05/17/24 03:00 125/85 05/17/24 03:00 125/85 05/17/24 02:48 36.9 C 91 H 19 100 05/17/24 02:36 36.9 C 91 H 20 100 05/17/24 02:15 36.9 C 82 14 100 05/17/24 02:00 139/86 05/17/24 02:00 139/86 05/17/24 01:33 37.0 C 89 21 98 05/17/24 01:30 37.0 C 84 20 97 05/17/24 01:15 37.0 C 97 H 18 100 05/17/24 01:06 37.0 C 83 18 100 05/17/24 01:00 113/72 05/17/24 00:54 37.1 C 85 20 100 05/17/24 00:30 37.1 C 82 18 100 05/17/24 00:15 37.0 C 75 13 100 05/17/24 00:03 37.0 C 88 24 97 05/17/24 00:00 103/56 L 05/17/24 00:00 103/56 L 05/17/24 00:00 103/56 L 05/16/24 23:42 37.1 C 113 H 17 84 L 05/16/24 23:33 37.1 C 98 H 21 96 05/16/24 23:00 96/63 L 05/16/24 23:00 37.2 C 77 22 86 L 02/17/25 22:45 37.2 C 99 H 22 100 05/16/24 22:30 37.3 C 101 H 26 H 98 05/16/24 22:15 37.3 C 104 H 15 100 05/16/24 22:12 37.3 C 101 H 14 95 05/16/24 21:48 37.4 C 87 20 100 Critical Care Results & Data Vital Signs (Past 12 Hours) Vital Signs Temp Pulse Resp BP Pulse Ox O2 Del Method 05/17/24 10:03 36.8 C 71 15 94 05/17/24 10:00 121/83 05/17/24 09:24 36.8 C 82 21 100 05/17/24 09:00 111/66 05/17/24 08:51 36.8 C 71 15 100 05/17/24 08:03 36.7 C 114 H 21 80 L 05/17/24 08:00 99/63 L 05/17/24 08:00 Room Air 05/17/24 08:00 89 05/17/24 07:45 36.8 C 98 H 23 100 05/17/24 07:01 92/56 L 05/17/24 06:57 36.8 C 83 22 90 05/17/24 06:33 36.8 C 85 19 91 05/17/24 06:15 36.8 C 102 H 11 L 91 05/17/24 06:03 36.8 C 92 H 26 H 93 05/17/24 06:00 116/86 05/17/24 06:00 116/86 05/17/24 05:54 36.8 C 84 24 93 05/17/24 05:48 36.8 C 87 19 93 05/17/24 05:30 36.8 C 69 22 100 05/17/24 05:15 36.8 C 81 30 H 100 05/17/24 05:00 100/70 05/17/24 05:00 100/70 05/17/24 05:00 100/70 05/17/24 04:45 36.8 C 76 21 100 05/17/24 04:30 36.9 C 77 19 96 05/17/24 04:15 36.9 C 79 22 100 05/17/24 04:09 36.9 C 73 21 99 05/17/24 04:01 81/49 L 05/17/24 04:01 81/49 L 05/17/24 03:54 36.9 C 83 19 100 05/17/24 03:45 36.9 C 75 21 94 05/17/24 03:33 36.9 C 85 34 H 100 05/17/24 03:15 36.8 C 110 H 43 H 99 05/17/24 03:09 36.8 C 94 H 27 H 94 05/17/24 03:00 125/85 05/17/24 03:00 125/85 05/17/24 03:00 125/85 05/17/24 02:48 36.9 C 91 H 19 100 05/17/24 02:36 36.9 C 91 H 20 100 05/17/24 02:15 36.9 C 82 14 100 05/17/24 02:00 139/86 05/17/24 02:00 139/86 05/17/24 01:33 37.0 C 89 21 98 05/17/24 01:30 37.0 C 84 20 97 05/17/24 01:15 37.0 C 97 H 18 100 05/17/24 01:06 37.0 C 83 18 100 Lab & Micro Results (Past 24 Hours) RBC 3.14 M/uL (4.70-6.10) L 05/17/24 WBC 7.02 K/ul (4.8-10.8) 05/17/24 Hgb 8.1 g/dl (14.0-18.0) L 05/17/24 Hct 26.1 % (42.0-52.0) L 05/17/24 MCV 83.1 fL (80.0-100.0) 05/17/24 MCH 25.8 pg (25.0-34.0) 05/17/24 MCHC 31.0 g/dL (32.0-36.0) L 05/17/24 RDW Standard Deviation 53.1 fL (36.4-46.3) H 05/17/24 RDW Coefficient of Variation 17.8 % (11.5-14.5) H 05/17/24 Plt Count 131 K/uL (130-400) 05/17/24 MPV 9.9 fL (9.4-12.4) 05/17/24 Neutrophils (%) (Auto) 72.9 % 05/17/24 Lymphocytes (%) (Auto) 13.2 % 05/17/24 Monocytes # (Auto) 0.57 K/uL (0.11-0.59) 05/17/24 Eosinophils # (Auto) 0.34 K/uL (0.00-0.50) 05/17/24 Immature Granulocyte % (Auto) 0.4 % 05/17/24 Neutrophils # (Auto) 5.11 K/uL (1.40-6.50) 05/17/24 Lymphocytes # (Auto) 0.93 K/uL (1.20-3.40) L 05/17/24 Monocytes # (Auto) 0.57 K/uL (0.11-0.59) 05/17/24 Eosinophils # (Auto) 0.34 K/uL (0.00-0.50) 05/17/24 Basophils # (Auto) 0.04 K/uL (0.00-0.20) 05/17/24 Immature Granulocyte # (Auto) 0.03 K/uL (0.01-0.20) 5 Na 140 mmol/L (136-145) 05/17/24 K 3.4 mmol/L (3.5-5.1) L 05/17/24 Cl 107 mmol/L (98-107) 05/17/24 CO2 30 mmol/L (21-32) 05/17/24 Anion Gap 3 (3-11) 05/17/24 BUN 43 mg/dl (6-23) H 05/17/24 Creatinine 2.07 mg/dl (0.6-1.4) H 05/17/24 BUN/Creatinine Ratio 20.8 (10-20) H 05/17/24 Glu 101 mg/dl (70-99(Fasting)) H 05/17/24 Ca 8.9 mg/dl (8.6-10.3) 05/17/24 Phosphorus Level 4.1 mg/dl (2.5-4.9) 05/17/24 Mg 2.2 mg/dl (1.7-2.4) 05/17/24 05:23 Calcium Level 8.9 mg/dl (8.6-10.3) 05/17/24 05:23 I & O Totals 24 Hours 05/16/24 05/17/24 05/18/24 06:59 06:59 06:59 Intake Total 3440 / 3440 1359.667 / 1359.667 596.333 / 596.333 Output Total 1575 / 1575 1390 / 1390 600 / 600 Balance 1865 / 1865 -30.333 / -30.333 -3.667 / -3.667 Cumulative 05/14/24 11:42 thru 05/17/24 12:36 Intake Total 8328.899 Output Total 4440 Balance 3888.899 RT Ventilator Mngmt (Last Documented) Ventilator Ordered Settings Respiratory Rate 15 05/17/24 10:03 Ventilator - PT Measurements Respiratory Rate 15 Coding Level of Care Code 17896 SUB INP/OBS CARE 04/23MIN Diagnoses Acute GI bleeding K92.2 Hypovolemic shock R57.1 Permanent atrial fibrillation with RVR I48.21 DEONNA (acute kidney injury) N17.9
--- NOTE | 2024-05-17 10:14 | Gastroenterology Progress Note ---
Date of Service May 17, 2024 Assessment & Plan (1) Anemia: (2) Acute GI bleeding: Plan His heme positive stools today could relate to the 11 polyps removed yesterday. - continue with protonix drip. - continue to monitor hgb/hct and transfuse as needed. - if patient shows any signs of rebleeding, would recommend transfer to tertiary center for IR intervention. Admission and Anticipated Discharge Date Admission Date: May 14, 2024 Supervising Physician Co-Signing Physician Notes I personally saw and examined the patient. I have reviewed the chart and agree with the documentation provided by the MOTOR RACER including discussion about the assessment, treatment and plan. Briefly, brown stool today. And tolerating diet. No pain. Removed 11 polyps several of which were large yesterday 1 clip placed. Would hold anticoagulation for a few days. Hemoglobin went from 8.7- 8.1 and the heme positive is from his prior GI bleeding. Watch the color of the stool. I will follow-up pathology Subjective Patient has had bowel movements since procedure, but was unsure of cons istency/blood. I discussed case with Nursing and they mention a moderate amount of brown stool today that tested heme positive. colonoscopy 05/16 without signs of active bleeding, but had 11 polyps removed and internal hemorrhoids and diverticulosis. hgb has dropped from 8.7 to 8.1 today. patient feels fatigued. no nausea, vomiting, abdominal pain. Review of Systems Review of Systems: All systems reviewed & are unremarkable except as noted in HPI & below Physical Exam Constitutional: WD/WN, vitals as above Respiratory: normal effort. Cardiovascular: Rate/Rhythm: regular rate and regular rhythm Gastrointestinal (Abdomen): normal bowel sounds, soft, nontender, no hepatosplenomegaly Psychiatric: Orientation: alert and oriented x 3 Affect: euthymic affect Results & Data Results & Data Vital Signs (Past 12 Hours) Vital Signs Temp Pulse Resp BP Pulse Ox O2 Del Method 05/17/24 08:00 Room Air 05/17/24 08:00 89 05/17/24 06:33 98.2 F 85 19 91 05/17/24 06:15 98.2 F 102 H 11 L 91 05/17/24 06:03 98.2 F 92 H 26 H 93 05/17/24 06:00 116/86 05/17/24 06:00 116/86 05/17/24 05:54 98.2 F 84 24 93 05/17/24 05:48 98.2 F 87 19 93 05/17/24 05:30 98.2 F 69 22 100 05/17/24 05:15 98.2 F 81 30 H 100 05/17/24 05:00 100/70 05/17/24 05:00 100/70 05/17/24 05:00 100/70 05/17/24 04:45 98.2 F 76 21 100 05/17/24 04:30 98.4 F 77 19 96 05/17/24 04:15 98.4 F 79 22 100 05/17/24 04:09 98.4 F 73 21 99 05/17/24 04:01 81/49 L 05/17/24 04:01 81/49 L 05/17/24 03:54 98.4 F 83 19 100 05/17/24 03:45 98.4 F 75 21 94 05/17/24 03:33 98.4 F 85 34 H 100 05/17/24 03:15 98.2 F 110 H 43 H 99 05/17/24 03:09 98.2 F 94 H 27 H 94 05/17/24 03:00 125/85 05/17/24 03:00 125/85 05/17/24 03:00 125/85 05/17/24 02:48 98.4 F 91 H 19 100 05/17/24 02:36 98.4 F 91 H 20 100 05/17/24 02:15 98.4 F 82 14 100 05/17/24 02:00 139/86 05/17/24 02:00 139/86 05/17/24 01:33 98.6 F 89 21 98 05/17/24 01:30 98.6 F 84 20 97 05/17/24 01:15 98.6 F 97 H 18 100 05/17/24 01:06 98.6 F 83 18 100 05/17/24 01:00 113/72 05/17/24 00:54 98.8 F 85 20 100 05/17/24 00:30 98.8 F 82 18 100 05/17/24 00:15 98.6 F 75 13 100 05/17/24 00:03 98.6 F 88 24 97 05/17/24 00:00 103/56 L 05/17/24 00:00 103/56 L 05/17/24 00:00 103/56 L 05/16/24 23:42 98.8 F 113 H 17 84 L 05/16/24 23:33 98.8 F 98 H 21 96 05/16/24 23:00 96/63 L 05/16/24 23:00 99.0 F 77 22 86 L 05/16/24 22:45 99.0 F 99 H 22 100 05/16/24 22:30 99.1 F 101 H 26 H 98 05/16/24 22:15 99.1 F 104 H 15 100 05/16/24 22:12 99.1 F 101 H 14 95 Laboratory Results Lab Results 05/14/24 05/14/24 05/14/24 Range/Units 12:06 13:22 13:25 WBC 9.82 (4.8-10.8) K/ul RBC 3.33 L (4.70-6.10) M/uL Hgb 8.4 L (14.0-18.0) g/dl Hct 27.3 L (42.0-52.0) % MCV 82.0 (80.0-100.0) fL MCH 25.2 (25.0-34.0) pg MCHC 30.8 L (32.0-36.0) g/dL RDW Std Deviation 52.7 H (36.4-46.3) fL RDW Coeff of Sarah 17.7 H (11.5-14.5) % Plt Count 194 (130-400) K/uL MPV 10.1 (9.4-12.4) fL Immature Gran % (Auto) % Neut % (Auto) % Lymph % (Auto) % Gove % (Auto) % Eos % (Auto) % Baso % (Auto) % Neut # (Auto) (1.40-6.50) K/uL Lymph # (Auto) (1.20-3.40) K/uL Gove # (Auto) (0.11-0.59) K/uL Eos # (Auto) (0.00-0.50) K/uL Baso # (Auto) (0.00-0.20) K/uL Immature Gran # (Auto) (0.01-0.20) K/uL PT 11.8 (9.0-12.0) Seconds INR 1.1 (0.9-1.1) APTT 26 (21-31) Seconds PTT Ratio 1.0 Fibrinogen (184-400) mg/dl Sodium 140 (136-145) mmol/L Potassium 4.5 (3.5-5.1) mmol/L Chloride 104 (98-107) mmol/L Carbon Dioxide 26 (21-32) mmol/L Anion Gap 10 (3-11) BUN 82 H (6-23) mg/dl Creatinine 2.52 H (0.6-1.4) mg/dl Est Cr Clr Drug Dosing Not Reportable eGFR 24.79 BUN/Creatinine Ratio 32.5 H (10-20) Glucose 91 (70-99(Fasting)) mg/dl Lactate (0.4-2.0) mmol/L Calcium 9.6 (8.6-10.3) mg/dl Ionized Calcium (1.12-1.32) mmol/L Phosphorus (2.5-4.9) mg/dl Magnesium 2.5 H (1.7-2.4) mg/dl Total Bilirubin 0.7 (0.2-1.0) mg/dl AST 36 (13-39) U/L ALT 26 (7-52) U/L Alkaline Phosphatase 57 (34-104) U/L Troponin I High Sens 20.1 H (0-20) pg/ml Total Protein 6.1 (6.0-8.3) gm/dl Albumin 3.2 L (3.4-5.0) gm/dl Globulin 2.9 (2.5-4.0) gm/dl Albumin/Globulin Ratio 1.1 (0.9-2) Nasal Screen MRSA (PCR) (Negative) Stool Occult Bld Scrn (Negative) POC Stool Occult Blood Positive A (Negative) Stl C. cayetanensis PCR Not Detected (NotDetected) Stool Rotavirus A PCR Not Detected (NotDetected) Stl Adenov F 40/41 PCR Not Detected (NotDetected) Stool Astrovirus (PCR) Not Detected (NotDetected) Stool Campylobacter PCR Not Detected (NotDetected) Stool Cryptosporidium PCR Not Detected (NotDetected) Stl E.coli Shiga Tox PCR Not Detected (NotDetected) Stl Enterotoxigenic E PCR Not Detected (NotDetected) Stool EPEC (PCR) Not Detected (NotDetected) Stool EAEC (PCR) Not Detected (NotDetected) Stl E. histolytica PCR Not Detected (NotDetected) Stool Giardia Lamblia PCR Not Detected (NotDetected) Stool Salmonella PCR Not Detected (NotDetected) Stool Sapovirus (PCR) Not Detected (NotDetected) Stl P. shigelloides PCR Not Detected (NotDetected) Stl Shigella/EIEC PCR Not Detected (NotDetected) St Y.enterocolitica PCR Not Detected (NotDetected) Stool Vibrio (PCR) Not Detected (NotDetected) Stl Vibrio cholerae PCR Not Detected (NotDetected) Stl Norovirus GI/GII PCR Not Detected (NotDetected) Blood Type O Positive Blood Type Recheck Antibody Screen NEGATIVE Crossmatch See Detail 05/14/24 05/14/24 05/14/24 Range/Units 14:10 15:01 18:01 WBC (4.8-10.8) K/ul RBC (4.70-6.10) M/uL Hgb 7.6 L (14.0-18.0) g/dl Hct 24.9 L (42.0-52.0) % MCV (80.0-100.0) fL MCH (25.0-34.0) pg MCHC (32.0-36.0) g/dL RDW Std Deviation (36.4-46.3) fL RDW Coeff of Sarah (11.5-14.5) % Plt Count (130-400) K/uL MPV (9.4-12.4) fL Immature Gran % (Auto) % Neut % (Auto) % Lymph % (Auto) % Gove % (Auto) % Eos % (Auto) % Baso % (Auto) % Neut # (Auto) (1.40-6.50) K/uL Lymph # (Auto) (1.20-3.40) K/uL Gove # (Auto) (0.11-0.59) K/uL Eos # (Auto) (0.00-0.50) K/uL Baso # (Auto) (0.00-0.20) K/uL Immature Gran # (Auto) (0.01-0.20) K/uL PT (9.0-12.0) Seconds INR (0.9-1.1) APTT (21-31) Seconds PTT Ratio Fibrinogen (184-400) mg/dl Sodium (136-145) mmol/L Potassium (3.5-5.1) mmol/L Chloride (98-107) mmol/L Carbon Dioxide (21-32) mmol/L Anion Gap (3-11) BUN (6-23) mg/dl Creatinine (0.6-1.4) mg/dl Est Cr Clr Drug Dosing eGFR BUN/Creatinine Ratio (10-20) Glucose (70-99(Fasting)) mg/dl Lactate 1.8 (0.4-2.0) mmol/L Calcium (8.6-10.3) mg/dl Ionized Calcium (1.12-1.32) mmol/L Phosphorus (2.5-4.9) mg/dl Magnesium (1.7-2.4) mg/dl Total Bilirubin (0.2-1.0) mg/dl AST (13-39) U/L ALT (7-52) U/L Alkaline Phosphatase (34-104) U/L Troponin I High Sens (0-20) pg/ml Total Protein (6.0-8.3) gm/dl Albumin (3.4-5.0) gm/dl Globulin (2.5-4.0) gm/dl Albumin/Globulin Ratio (0.9-2) Nasal Screen MRSA (PCR) (Negative) Stool Occult Bld Scrn (Negative) POC Stool Occult Blood (Negative) Stl C. cayetanensis PCR (NotDetected) Stool Rotavirus A PCR (NotDetected) Stl Adenov F 40/41 PCR (NotDetected) Stool Astrovirus (PCR) (NotDetected) Stool Campylobacter PCR (NotDetected) Stool Cryptosporidium PCR (NotDetected) Stl E.coli Shiga Tox PCR (NotDetected) Stl Enterotoxigenic E PCR (NotDetected) Stool EPEC (PCR) (NotDetected) Stool EAEC (PCR) (NotDetected) Stl E. histolytica PCR (NotDetected) Stool Giardia Lamblia PCR (NotDetected) Stool Salmonella PCR (NotDetected) Stool Sapovirus (PCR) (NotDetected) Stl P. shigelloides PCR (NotDetected) Stl Shigella/EIEC PCR (NotDetected) St Y.enterocolitica PCR (NotDetected) Stool Vibrio (PCR) (NotDetected) Stl Vibrio cholerae PCR (NotDetected) Stl Norovirus GI/GII PCR (NotDetected) Blood Type Blood Type Recheck O Positive Antibody Screen Crossmatch 05/14/24 05/14/24 05/15/24 Range/Units 20:17 Unknown 00:56 WBC (4.8-10.8) K/ul RBC (4.70-6.10) M/uL Hgb 9.0 L 8.6 L (14.0-18.0) g/dl Hct 28.2 L 27.3 L (42.0-52.0) % MCV (80.0-100.0) fL MCH (25.0-34.0) pg MCHC (32.0-36.0) g/dL RDW Std Deviation (36.4-46.3) fL RDW Coeff of Sarah (11.5-14.5) % Plt Count (130-400) K/uL MPV (9.4-12.4) fL Immature Gran % (Auto) % Neut % (Auto) % Lymph % (Auto) % Gove % (Auto) % Eos % (Auto) % Baso % (Auto) % Neut # (Auto) (1.40-6.50) K/uL Lymph # (Auto) (1.20-3.40) K/uL Gove # (Auto) (0.11-0.59) K/uL Eos # (Auto) (0.00-0.50) K/uL Baso # (Auto) (0.00-0.20) K/uL Immature Gran # (Auto) (0.01-0.20) K/uL PT (9.0-12.0) Seconds INR (0.9-1.1) APTT (21-31) Seconds PTT Ratio Fibrinogen 279 (184-400) mg/dl Sodium (136-145) mmol/L Potassium (3.5-5.1) mmol/L Chloride (98-107) mmol/L Carbon Dioxide (21-32) mmol/L Anion Gap (3-11) BUN (6-23) mg/dl Creatinine (0.6-1.4) mg/dl Est Cr Clr Drug Dosing eGFR BUN/Creatinine Ratio (10-20) Glucose (70-99(Fasting)) mg/dl Lactate (0.4-2.0) mmol/L Calcium (8.6-10.3) mg/dl Ionized Calcium (1.12-1.32) mmol/L Phosphorus (2.5-4.9) mg/dl Magnesium (1.7-2.4) mg/dl Total Bilirubin (0.2-1.0) mg/dl AST (13-39) U/L ALT (7-52) U/L Alkaline Phosphatase (34-104) U/L Troponin I High Sens (0-20) pg/ml Total Protein (6.0-8.3) gm/dl Albumin (3.4-5.0) gm/dl Globulin (2.5-4.0) gm/dl Albumin/Globulin Ratio (0.9-2) Nasal Screen MRSA (PCR) Positive A (Negative) Stool Occult Bld Scrn (Negative) POC Stool Occult Blood (Negative) Stl C. cayetanensis PCR (NotDetected) Stool Rotavirus A PCR (NotDetected) Stl Adenov F 40/41 PCR (NotDetected) Stool Astrovirus (PCR) (NotDetected) Stool Campylobacter PCR (NotDetected) Stool Cryptosporidium PCR (NotDetected) Stl E.coli Shiga Tox PCR (NotDetected) Stl Enterotoxigenic E PCR (NotDetected) Stool EPEC (PCR) (NotDetected) Stool EAEC (PCR) (NotDetected) Stl E. histolytica PCR (NotDetected) Stool Giardia Lamblia PCR (NotDetected) Stool Salmonella PCR (NotDetected) Stool Sapovirus (PCR) (NotDetected) Stl P. shigelloides PCR (NotDetected) Stl Shigella/EIEC PCR (NotDetected) St Y.enterocolitica PCR (NotDetected) Stool Vibrio (PCR) (NotDetected) Stl Vibrio cholerae PCR (NotDetected) Stl Norovirus GI/GII PCR (NotDetected) Blood Type Blood Type Recheck Antibody Screen Crossmatch 05/15/24 05/15/24 05/15/24 Range/Units 05:25 09:33 17:25 WBC 7.43 (4.8-10.8) K/ul RBC 3.35 L (4.70-6.10) M/uL Hgb 8.7 L 8.5 L 8.9 L (14.0-18.0) g/dl Hct 27.4 L 27.1 L 28.2 L (42.0-52.0) % MCV 81.8 (80.0-100.0) fL MCH 26.0 (25.0-34.0) pg MCHC 31.8 L (32.0-36.0) g/dL RDW Std Deviation 50.4 H (36.4-46.3) fL RDW Coeff of Sarah 17.3 H (11.5-14.5) % Plt Count 146 (130-400) K/uL MPV 10.0 (9.4-12.4) fL Immature Gran % (Auto) 0.4 % Neut % (Auto) 68.6 % Lymph % (Auto) 17.2 % Gove % (Auto) 10.8 % Eos % (Auto) 2.2 % Baso % (Auto) 0.8 % Neut # (Auto) 5.10 (1.40-6.50) K/uL Lymph # (Auto) 1.28 (1.20-3.40) K/uL Gove # (Auto) 0.80 H (0.11-0.59) K/uL Eos # (Auto) 0.16 (0.00-0.50) K/uL Baso # (Auto) 0.06 (0.00-0.20) K/uL Immature Gran # (Auto) 0.03 (0.01-0.20) K/uL PT (9.0-12.0) Seconds INR (0.9-1.1) APTT (21-31) Seconds PTT Ratio Fibrinogen (184-400) mg/dl Sodium 141 (136-145) mmol/L Potassium 3.6 (3.5-5.1) mmol/L Chloride 109 H (98-107) mmol/L Carbon Dioxide 25 (21-32) mmol/L Anion Gap 7 (3-11) BUN 77 H (6-23) mg/dl Creatinine 2.39 H (0.6-1.4) mg/dl Est Cr Clr Drug Dosing 26.5 eGFR 26.41 BUN/Creatinine Ratio 32.2 H (10-20) Glucose 113 H (70-99(Fasting)) mg/dl Lactate (0.4-2.0) mmol/L Calcium 8.8 (8.6-10.3) mg/dl Ionized Calcium (1.12-1.32) mmol/L Phosphorus (2.5-4.9) mg/dl Magnesium 2.4 (1.7-2.4) mg/dl Total Bilirubin (0.2-1.0) mg/dl AST (13-39) U/L ALT (7-52) U/L Alkaline Phosphatase (34-104) U/L Troponin I High Sens (0-20) pg/ml Total Protein (6.0-8.3) gm/dl Albumin (3.4-5.0) gm/dl Globulin (2.5-4.0) gm/dl Albumin/Globulin Ratio (0.9-2) Nasal Screen MRSA (PCR) (Negative) Stool Occult Bld Scrn (Negative) POC Stool Occult Blood (Negative) Stl C. cayetanensis PCR (NotDetected) Stool Rotavirus A PCR (NotDetected) Stl Adenov F 40/41 PCR (NotDetected) Stool Astrovirus (PCR) (NotDetected) Stool Campylobacter PCR (NotDetected) Stool Cryptosporidium PCR (NotDetected) Stl E.coli Shiga Tox PCR (NotDetected) Stl Enterotoxigenic E PCR (NotDetected) Stool EPEC (PCR) (NotDetected) Stool EAEC (PCR) (NotDetected) Stl E. histolytica PCR (NotDetected) Stool Giardia Lamblia PCR (NotDetected) Stool Salmonella PCR (NotDetected) Stool Sapovirus (PCR) (NotDetected) Stl P. shigelloides PCR (NotDetected) Stl Shigella/EIEC PCR (NotDetected) St Y.enterocolitica PCR (NotDetected) Stool Vibrio (PCR) (NotDetected) Stl Vibrio cholerae PCR (NotDetected) Stl Norovirus GI/GII PCR (NotDetected) Blood Type Blood Type Recheck Antibody Screen Crossmatch 05/16/24 05/16/24 05/16/24 Range/Units 01:20 04:28 08:41 WBC 7.20 (4.8-10.8) K/ul RBC 3.42 L (4.70-6.10) M/uL Hgb 8.4 L 8.8 L 8.9 L (14.0-18.0) g/dl Hct 26.8 L 28.1 L (42.0-52.0) % MCV 82.2 (80.0-100.0) fL MCH 25.7 (25.0-34.0) pg MCHC 31.3 L (32.0-36.0) g/dL RDW Std Deviation 52.3 H (36.4-46.3) fL RDW Coeff of Sarah 17.6 H (11.5-14.5) % Plt Count 141 (130-400) K/uL MPV 9.9 (9.4-12.4) fL Immature Gran % (Auto) 0.1 % Neut % (Auto) 67.2 % Lymph % (Auto) 17.2 % Gove % (Auto) 10.1 % Eos % (Auto) 4.6 % Baso % (Auto) 0.8 % Neut # (Auto) 4.83 (1.40-6.50) K/uL Lymph # (Auto) 1.24 (1.20-3.40) K/uL Gove # (Auto) 0.73 H (0.11-0.59) K/uL Eos # (Auto) 0.33 (0.00-0.50) K/uL Baso # (Auto) 0.06 (0.00-0.20) K/uL Immature Gran # (Auto) 0.01 (0.01-0.20) K/uL PT (9.0-12.0) Seconds INR (0.9-1.1) APTT (21-31) Seconds PTT Ratio Fibrinogen (184-400) mg/dl Sodium 142 (136-145) mmol/L Potassium 3.2 L (3.5-5.1) mmol/L Chloride 108 H (98-107) mmol/L Carbon Dioxide 29 (21-32) mmol/L Anion Gap 5 (3-11) BUN 55 H D (6-23) mg/dl Creatinine 2.27 H (0.6-1.4) mg/dl Est Cr Clr Drug Dosing 27.9 eGFR 28.10 BUN/Creatinine Ratio 24.2 H (10-20) Glucose 111 H (70-99(Fasting)) mg/dl Lactate (0.4-2.0) mmol/L Calcium 8.8 (8.6-10.3) mg/dl Ionized Calcium 1.19 (1.12-1.32) mmol/L Phosphorus 3.8 (2.5-4.9) mg/dl Magnesium 2.2 (1.7-2.4) mg/dl Total Bilirubin (0.2-1.0) mg/dl AST (13-39) U/L ALT (7-52) U/L Alkaline Phosphatase (34-104) U/L Troponin I High Sens (0-20) pg/ml Total Protein (6.0-8.3) gm/dl Albumin (3.4-5.0) gm/dl Globulin (2.5-4.0) gm/dl Albumin/Globulin Ratio (0.9-2) Nasal Screen MRSA (PCR) (Negative) Stool Occult Bld Scrn (Negative) POC Stool Occult Blood (Negative) Stl C. cayetanensis PCR (NotDetected) Stool Rotavirus A PCR (NotDetected) Stl Adenov F 40/41 PCR (NotDetected) Stool Astrovirus (PCR) (NotDetected) Stool Campylobacter PCR (NotDetected) Stool Cryptosporidium PCR (NotDetected) Stl E.coli Shiga Tox PCR (NotDetected) Stl Enterotoxigenic E PCR (NotDetected) Stool EPEC (PCR) (NotDetected) Stool EAEC (PCR) (NotDetected) Stl E. histolytica PCR (NotDetected) Stool Giardia Lamblia PCR (NotDetected) Stool Salmonella PCR (NotDetected) Stool Sapovirus (PCR) (NotDetected) Stl P. shigelloides PCR (NotDetected) Stl Shigella/EIEC PCR (NotDetected) St Y.enterocolitica PCR (NotDetected) Stool Vibrio (PCR) (NotDetected) Stl Vibrio cholerae PCR (NotDetected) Stl Norovirus GI/GII PCR (NotDetected) Blood Type Blood Type Recheck Antibody Screen Crossmatch 05/16/24 05/17/24 05/17/24 Range/Units 21:00 05:23 Unknown WBC 7.02 (4.8-10.8) K/ul RBC 3.14 L (4.70-6.10) M/uL Hgb 8.7 L 8.1 L (14.0-18.0) g/dl Hct 27.9 L 26.1 L (42.0-52.0) % MCV 83.1 (80.0-100.0) fL MCH 25.8 (25.0-34.0) pg MCHC 31.0 L (32.0-36.0) g/dL RDW Std Deviation 53.1 H (36.4-46.3) fL RDW Coeff of Sarah 17.8 H (11.5-14.5) % Plt Count 131 (130-400) K/uL MPV 9.9 (9.4-12.4) fL Immature Gran % (Auto) 0.4 % Neut % (Auto) 72.9 % Lymph % (Auto) 13.2 % Gove % (Auto) 8.1 % Eos % (Auto) 4.8 % Baso % (Auto) 0.6 % Neut # (Auto) 5.11 (1.40-6.50) K/uL Lymph # (Auto) 0.93 L (1.20-3.40) K/uL Gove # (Auto) 0.57 (0.11-0.59) K/uL Eos # (Auto) 0.34 (0.00-0.50) K/uL Baso # (Auto) 0.04 (0.00-0.20) K/uL Immature Gran # (Auto) 0.03 (0.01-0.20) K/uL PT (9.0-12.0) Seconds INR (0.9-1.1) APTT (21-31) Seconds PTT Ratio Fibrinogen (184-400) mg/dl Sodium 140 (136-145) mmol/L Potassium 3.4 L (3.5-5.1) mmol/L Chloride 107 (98-107) mmol/L Carbon Dioxide 30 (21-32) mmol/L Anion Gap 3 (3-11) BUN 43 H (6-23) mg/dl Creatinine 2.07 H (0.6-1.4) mg/dl Est Cr Clr Drug Dosing 31.2 eGFR 31.39 BUN/Creatinine Ratio 20.8 H (10-20) Glucose 101 H (70-99(Fasting)) mg/dl Lactate (0.4-2.0) mmol/L Calcium 8.9 (8.6-10.3) mg/dl Ionized Calcium (1.12-1.32) mmol/L Phosphorus 4.1 (2.5-4.9) mg/dl Magnesium 2.2 (1.7-2.4) mg/dl Total Bilirubin (0.2-1.0) mg/dl AST (13-39) U/L ALT (7-52) U/L Alkaline Phosphatase (34-104) U/L Troponin I High Sens (0-20) pg/ml Total Protein (6.0-8.3) gm/dl Albumin (3.4-5.0) gm/dl Globulin (2.5-4.0) gm/dl Albumin/Globulin Ratio (0.9-2) Nasal Screen MRSA (PCR) (Negative) Stool Occult Bld Scrn Positive A (Negative) POC Stool Occult Blood (Negative) Stl C. cayetanensis PCR (NotDetected) Stool Rotavirus A PCR (NotDetected) Stl Adenov F 40/41 PCR (NotDetected) Stool Astrovirus (PCR) (NotDetected) Stool Campylobacter PCR (NotDetected) Stool Cryptosporidium PCR (NotDetected) Stl E.coli Shiga Tox PCR (NotDetected) Stl Enterotoxigenic E PCR (NotDetected) Stool EPEC (PCR) (NotDetected) Stool EAEC (PCR) (NotDetected) Stl E. histolytica PCR (NotDetected) Stool Giardia Lamblia PCR (NotDetected) Stool Salmonella PCR (NotDetected) Stool Sapovirus (PCR) (NotDetected) Stl P. shigelloides PCR (NotDetected) Stl Shigella/EIEC PCR (NotDetected) St Y.enterocolitica PCR (NotDetected) Stool Vibrio (PCR) (NotDetected) Stl Vibrio cholerae PCR (NotDetected) Stl Norovirus GI/GII PCR (NotDetected) Blood Type Blood Type Recheck Antibody Screen Crossmatch Coding Level of Care Code 30090 SUB INP/OBS CARE 2/35MIN Diagnoses Anemia D64.9 Anemia type: unspecified type Acute GI bleeding K92.2 (1) Anemia Anemia type: unspecified type Qualified Code(s): D64.9 - Anemia, unspecified
--- NOTE | 2024-05-17 12:00 | Hospitalist Progress Note ---
Date of Service May 17, 2024 Assessment & Plan (1) Hemorrhagic shock: Plan: Present on admission. Now resolved. He is off pressor support (2) Acute blood loss anemia: Plan: He has received 2 units packed red blood cells to date. Hemoglobin appears to have stabilized and is down slightly from 8.9-8.1 today, May 17. No indication for repeat transfusion at this time. Will follow. (3) Rectal bleed: Plan: Appreciate GI consultation and recommendations. Colonoscopy was completed yesterday, May 16, with multiple polypectomies performed in 1 clipping procedure. He also has diverticulosis and evidence of internal hemorrhoids. He remains on Protonix and Carafate has been added EGD done earlier this admission revealed gastric bypass status with no obvious source of bleeding seen although the study was incomplete. (4) Chronic kidney disease, stage 4 (severe): Plan: Fortunately currently stable. Monitor intake and output. Serial labs (5) Chronic atrial fibrillation: Plan: Continue rate control. Xarelto is on hold. Telemetry (6) History of aortic valve replacement with bioprosthetic valve: Plan: Xarelto is currently on hold. He also had recent mitral valve repair. Telemetry (7) Hypokalemia: Plan: Mild. Oral replacement given. Serial labs Plan Transfer out of the intensive care unit today, May 17. OT and PT assessments have been requested. He is amenable to rehab placement. Admission and Anticipated Discharge Date Admission Date: May 14, 2024 Subjective Alert and oriented. Hemoglobin has drifted down slightly to 8.1. No indication for repeat transfusion at this time. Colonoscopy was completed yesterday, May 16, with multiple polypectomies accomplished in 1 clip placed. He also has diverticulosis and internal hemorrhoids. Protonix drip has been switched to oral Protonix and oral Carafate. He will be Mitt be moved out of the intensive care unit today, May 17. OT and PT assessments requested. He is amenable to placement at either [facility] or an SNF facility for continued rehab and strengthening before he returns home. Review of Systems 2 Review of Systems: Constitutionalno fever or chills ENTno blurred vision, no double vision, no epistaxis, no sore throat Respiratoryno cough, no wheezing, no shortness of breath Cardiacno palpitations, no chest pain, no syncope Daniela nausea, vomiting, diarrhea. Lower GI bleeding appears to have stopped GUno urinary retention, no urinary incontinence, no dysuria, no hematuria Musculoskeletalno joint pain, no muscle tenderness Skinno bruising, no rashes, no pruritus Neurono isolated weakness, no paresthesia, no weakness Psychno depression, no anxiety Physical Exam 2 Physical Exam: General-alert and oriented x3, no fever, no chills HEENT-head atraumatic and normocephalic, pupils equal and reactive to light, extraocular muscles intact Neck-no lymphadenopathy or thyromegaly, trachea midline Chest-clear to auscultation. No rales, wheezing or rhonchi Cardiac-regular rate and rhythm, normal S1 and S2 Abdomen-normal bowel sounds, no hepatosplenomegaly Extremities-no cyanosis, clubbing, or edema Neuro-cranial nerves II through XII intact, motor and sensory function within normal limits, strength symmetrical, no focal deficits Psych-normal affect, normal mood Results & Data Results & Data Vital Signs (Past 12 Hours) Vital Signs Temp Pulse Resp BP Pulse Ox O2 Del Method 05/17/24 10:03 36.8 C 71 15 94 05/17/24 10:00 121/83 05/17/24 09:24 36.8 C 82 21 100 05/17/24 09:00 111/66 05/17/24 08:51 36.8 C 71 15 100 05/17/24 08:03 36.7 C 114 H 21 80 L 05/17/24 08:00 99/63 L 05/17/24 08:00 Room Air 05/17/24 08:00 89 05/17/24 07:45 36.8 C 98 H 23 100 05/17/24 07:01 92/56 L 05/17/24 06:57 36.8 C 83 22 90 05/17/24 06:33 36.8 C 85 19 91 05/17/24 06:15 36.8 C 102 H 11 L 91 05/17/24 06:03 36.8 C 92 H 26 H 93 05/17/24 06:00 116/86 05/17/24 06:00 116/86 05/17/24 05:54 36.8 C 84 24 93 05/17/24 05:48 36.8 C 87 19 93 05/17/24 05:30 36.8 C 69 22 100 05/17/24 05:15 36.8 C 81 30 H 100 05/17/24 05:00 100/70 05/17/24 05:00 100/70 05/17/24 05:00 100/70 05/17/24 04:45 36.8 C 76 21 100 05/17/24 04:30 36.9 C 77 19 96 05/17/24 04:15 36.9 C 79 22 100 05/17/24 04:09 36.9 C 73 21 99 05/17/24 04:01 81/49 L 05/17/24 04:01 81/49 L 05/17/24 03:54 36.9 C 83 19 100 05/17/24 03:45 36.9 C 75 21 94 05/17/24 03:33 36.9 C 85 34 H 100 05/17/24 03:15 36.8 C 110 H 43 H 99 05/17/24 03:09 36.8 C 94 H 27 H 94 05/17/24 03:00 125/85 05/17/24 03:00 125/85 05/17/24 03:00 125/85 05/17/24 02:48 36.9 C 91 H 19 100 05/17/24 02:36 36.9 C 91 H 20 100 05/17/24 02:15 36.9 C 82 14 100 05/17/24 02:00 139/86 05/17/24 02:00 139/86 05/17/24 01:33 37.0 C 89 21 98 05/17/24 01:30 37.0 C 84 20 97 05/17/24 01:15 37.0 C 97 H 18 100 05/17/24 01:06 37.0 C 83 18 100 05/17/24 01:00 113/72 05/17/24 00:54 37.1 C 85 20 100 05/17/24 00:30 37.1 C 82 18 100 05/17/24 00:15 37.0 C 75 13 100 05/17/24 00:03 37.0 C 88 24 97 05/17/24 00:00 103/56 L 05/17/24 00:00 103/56 L 05/17/24 00:00 103/56 L Laboratory Results 05/17/24 05:23 05/17/24 05:23 PG Care Time/CCT Total # of Minutes Spent Total Time Spent with Patient: Total time spent is greater than 50% in coordination of care (as documented) at patient's floor/unit and/or counseling patient: Coding Level of Care Code 80587 SUB INP/OBS CARE 3/50MIN Diagnoses Hemorrhagic shock R57.8 Acute blood loss anemia D62 Rectal bleed K62.5 Chronic kidney disease, stage 4 (severe) N18.4 Chronic atrial fibrillation I48.20 History of aortic valve replacement with bioprosthetic valve Z95.3 Hypokalemia E87.6
[2024-05-17] MEDS: SUCRALFATE 1 GM TAB PO SCH (12:59)
[2024-05-17] MEDS: CYCLOBENZAPRINE HCL 5 MG TAB PO PRN (16:23)
[2024-05-17] MEDS: PANTOprazole 40 MG TAB PO SCH (20:17)
[2024-05-18 09:44] LABS: Basophils # (auto) 0.06 K/uL (0.00-0.20); Basophils % (auto) 0.9 %; Eosinophils # (auto) 0.29 K/uL (0.00-0.50); Eosinophils % (auto) 4.3 %; Hematocrit (blood only) 31.1 % (42.0-52.0); Hemoglobin 9.4 g/dl (14.0-18.0); Immature Granulocytes # (auto) 0.02 K/uL (0.01-0.20); Immature Granulocytes % (auto) 0.3 %; Lymphocytes # (auto) 0.82 K/uL (1.20-3.40); Lymphocytes % (auto) 12.2 %; Mean Corpuscular Hemoglobin 25.6 pg (25.0-34.0); Mean Corpuscular Hgb Conc 30.2 g/dL (32.0-36.0); Mean Corpuscular Volume 84.7 fL (80.0-100.0); Mean Platelet Volume 10.3 fL (9.4-12.4); Monocytes % (auto) 5.9 %; Neutrophils # (auto) 5.14 K/uL (1.40-6.50); Neutrophils % (auto) 76.4 %; Platelet Count 144 K/uL (130-400); RDW Coefficient of Variation 18.1 % (11.5-14.5); RDW Standard Deviation 55.5 fL (36.4-46.3); Red Blood Count 3.67 M/uL (4.70-6.10); White Blood Count 6.73 K/ul (4.8-10.8)
[2024-05-18 10:00] LABS: BUN Creatinine Ratio 14.8 (10-20); Calcium 8.9 mg/dl (8.6-10.3); Creatinine Clr Calc Pharmacy 28.9 ml/min; Magnesium 1.9 mg/dl (1.7-2.4)
--- NOTE | 2024-05-18 10:55 | Gastroenterology Progress Note ---
Date of Service May 18, 2024 Assessment & Plan (1) Anemia: Plan - continue with protonix 40mg bid. - continue to monitor hgb/hct and transfuse as needed. - if patient shows any signs of rebleeding, would recommend transfer to tertiary center for IR intervention. Though seems to be stable at this time. Admission and Anticipated Discharge Date Admission Date: May 14, 2024 Supervising Physician Co-Signing Physician Notes I personally saw and examined the patient. I have reviewed the chart and agree with the documentation provided by the ICE SCRAPER including discussion about the assessment, treatment and plan. Briefly, hemoglobin is stable. Keep on PPI twice daily for 10 days and then once daily. You should follow-up for a colonoscopy outpatient in 1 year. All 11 polyps were precancerous but removed. He can restart his anticoagulation in 2 more days. GI will sign off please call with any question Subjective Colon pathology came back as tubular adenoma for all 11 polyps. Patient has had no bowel movements yet today. His hgb did improve from 8.1 to 9.4 today. rest of GI ros are unremarkable. PPI drip changed to oral PPI. Review of Systems Review of Systems: All systems reviewed & are unremarkable except as noted in HPI & below Physical Exam Constitutional: WD/WN, vitals as above Respiratory: normal respiratory effort, lungs clear to auscultation Cardiovascular: Rate/Rhythm: regular rate and regular rhythm Gastrointestinal (Abdomen): normal bowel sounds, soft, nontender, no hepatosplenomegaly Psychiatric: Orientation: alert and oriented x 3 Affect: euthymic affect Results & Data Results & Data Vital Signs (Past 12 Hours) Vital Signs Temp Pulse Pulse Resp BP Pulse Ox O2 Del Method 05/18/24 07:50 97.3 F L 110 H 17 110/64 96 Room Air 05/18/24 03:16 97.5 F L 112 H 18 116/69 90 Room Air 05/18/24 00:38 98.6 F 82 20 95/62 L 98 Room Air Coding Level of Care Code 27509 SUB INP/OBS CARE 04/23MIN Diagnoses Anemia D64.9 Anemia type: unspecified type (1) Anemia Anemia type: unspecified type Qualified Code(s): D64.9 - Anemia, unspecified
--- NOTE | 2024-05-18 12:14 | Hospitalist Progress Note ---
Date of Service May 18, 2024 Assessment & Plan (1) Hemorrhagic shock: Plan: Present on admission. Now resolved. He is off pressor support (2) Acute blood loss anemia: Plan: He has received 2 units packed red blood cells to date. Hemoglobin appears to have stabilized and is now 9.4. Will follow. (3) Rectal bleed: Plan: Appreciate GI consultation and recommendations. Colonoscopy was completed on May 16, with multiple polypectomies performed and 1 clipping procedure. He also has diverticulosis and evidence of internal hemorrhoids. He remains on Protonix and Carafate. EGD done earlier this admission revealed gastric bypass status with no obvious source of bleeding seen although the study was incomplete. (4) Chronic kidney disease, stage 4 (severe): Plan: Fortunately currently stable. Monitor intake and output. Serial labs (5) Chronic atrial fibrillation: Plan: Continue rate control. Xarelto has been permanently discontinued. Telemetry (6) History of aortic valve replacement with bioprosthetic valve: Plan: Xarelto has been discontinued. He also had recent mitral valve repair. Telemetry (7) Hypokalemia: Plan: Mild. Usual potassium supplement has been restarted. Serial labs Plan Hopeful discharge to [facility] tomorrow, May 19 Admission and Anticipated Discharge Date Admission Date: May 14, 2024 Subjective Alert and oriented. No distress. He has requested that his Talavera catheter be removed and this has been ordered. His usual oral potassium replacement has been restarted since he is mildly hypokalemic. Hemoglobin has improved to 9.4. Xarelto has been permanently discontinued. Diet has been advanced Review of Systems 2 Review of Systems: Constitutionalno fever or chills ENTno blurred vision, no double vision, no epistaxis, no sore throat Respiratoryno cough, no wheezing, no shortness of breath Cardiacno palpitations, no chest pain, no syncope Daniela nausea, vomiting, diarrhea. Lower GI bleeding appears to have stopped GUno urinary retention, no urinary incontinence, no dysuria, no hematuria Musculoskeletalno joint pain, no muscle tenderness Skinno bruising, no rashes, no pruritus Neurono isolated weakness, no paresthesia, no weakness Psychno depression, no anxiety Physical Exam 2 Physical Exam: General-alert and oriented x3, no fever, no chills HEENT-head atraumatic and normocephalic, pupils equal and reactive to light, extraocular muscles intact Neck-no lymphadenopathy or thyromegaly, trachea midline Chest-clear to auscultation. No rales, wheezing or rhonchi Cardiac-regular rate and rhythm, normal S1 and S2 Abdomen-normal bowel sounds, no hepatosplenomegaly Extremities-no cyanosis, clubbing, or edema Neuro-cranial nerves II through XII intact, motor and sensory function within normal limits, strength symmetrical, no focal deficits Psych-normal affect, normal mood Results & Data Results & Data Vital Signs (Past 12 Hours) Vital Signs Temp Pulse Pulse Resp BP Pulse Ox O2 Del Method 05/18/24 11:57 36.8 C 88 18 104/62 Room Air 05/18/24 07:50 36.3 C L 110 H 17 110/64 96 Room Air 05/18/24 03:16 36.4 C L 112 H 18 116/69 90 Room Air 05/18/24 00:38 37.0 C 82 20 95/62 L 98 Room Air Laboratory Results 05/18/24 10:14 05/18/24 10:14 PG Care Time/CCT Total # of Minutes Spent Total Time Spent with Patient: Total time spent is greater than 50% in coordination of care (as documented) at patient's floor/unit and/or counseling patient: Coding Level of Care Code 48092 SUB INP/OBS CARE 3/50MIN Diagnoses Hemorrhagic shock R57.8 Acute blood loss anemia D62 Rectal bleed K62.5 Chronic kidney disease, stage 4 (severe) N18.4 Chronic atrial fibrillation I48.20 History of aortic valve replacement with bioprosthetic valve Z95.3 Hypokalemia E87.6
[2024-05-18] MEDS: POTASSIUM CHLORIDE CRTAB 20 MEQ TABCR PO SCH (18:09)
[2024-05-19 10:26] LABS: Basophils # (auto) 0.02 K/uL (0.00-0.20); Basophils % (auto) 0.4 %; Eosinophils # (auto) 0.22 K/uL (0.00-0.50); Eosinophils % (auto) 3.9 %; Hematocrit (blood only) 28.2 % (42.0-52.0); Hemoglobin 8.7 g/dl (14.0-18.0); Immature Granulocytes # (auto) 0.01 K/uL (0.01-0.20); Immature Granulocytes % (auto) 0.2 %; Lymphocytes # (auto) 0.81 K/uL (1.20-3.40); Lymphocytes % (auto) 14.2 %; Mean Corpuscular Hgb Conc 30.9 g/dL (32.0-36.0); Mean Corpuscular Volume 84.4 fL (80.0-100.0); Mean Platelet Volume 9.8 fL (9.4-12.4); Monocytes # (auto) 0.55 K/uL (0.11-0.59); Monocytes % (auto) 9.6 %; Neutrophils % (auto) 71.7 %; Platelet Count 141 K/uL (130-400); RDW Coefficient of Variation 17.8 % (11.5-14.5); RDW Standard Deviation 54.4 fL (36.4-46.3); Red Blood Count 3.34 M/uL (4.70-6.10); White Blood Count 5.71 K/ul (4.8-10.8)
[2024-05-19 10:29] VITALS: TEMP 98.2
[2024-05-19 10:38] LABS: BUN Creatinine Ratio 14.1 (10-20); Calcium 8.5 mg/dl (8.6-10.3); Creatinine Clr Calc Pharmacy 30.3 ml/min; Potassium 3.1 mmol/L (3.5-5.1)
--- NOTE | 2024-05-19 11:44 | Discharge Summary ---
Discharge Summary Date of Service May 19, 2024 Principal Dx & Hospital Course #1 = Principal Diagnosis (1) Hemorrhagic shock: Present on admission. Now resolved. He is off pressor support (2) Acute blood loss anemia: He has received 2 units packed red blood cells to date. Hemoglobin appears to have stabilized. Will follow. (3) Rectal bleed: Appreciate GI consultation and recommendations. Colonoscopy was completed on May 16, with multiple polypectomies performed and 1 clipping procedure. He also has diverticulosis and evidence of internal hemorrhoids. He remains on Protonix and Carafate. EGD done earlier this admission revealed gastric bypass status with no obvious source of bleeding seen although the study was incomplete. (4) Chronic kidney disease, stage 4 (severe): Fortunately currently stable. Monitor intake and output. Serial labs (5) Chronic atrial fibrillation: Continue rate control. Xarelto has been permanently discontinued. Telemetry (6) History of aortic valve replacement with bioprosthetic valve: Xarelto has been discontinued. He also had recent mitral valve repair. Telemetry (7) Hypokalemia: Mild. Potassium supplementation dosage increased today, May 19. Serial labs Plan Discharge to [facility] today, May 19 Admission HPI Per Admitting Provider Kyler is an 84-year-old male with PMH of A-fib RVR (on Xarelto), CHF, RACHELE, secondary hyperparathyroidism, renal cell carcinoma s/p left-sided nephrectomy, CKD, HTN, and HLD. He presented on 05/14 for bright red blood in stool. This started yesterday evening at 7 PM. He went to the bathroom approximately 3 times last night, and each time he had dark stool with bright red blood in it. He also had 2 additional episodes this morning. His stool was loose in consistency. He does have a history of abdominal surgery; gastric bypass in 2004, as well as history of cholecystectomy. Patient also notes he has had fissures from time to time. No prior history of GI bleeds to his knowledge. He does use supplemental oxygen at night through his CPAP (3L) and has been doing so since his MitraClip operation at [facility] recently. Patient ambulates with a cane at baseline. He reports he experienced a fall on while in his bedroom. He was coming around the corner of his bed and the cane got caught on the mattress. Likely he was able to fall onto his bed, however he fell into his cane, which pushed into his stomach and caused some bruising on his right lower abdomen. Patient took his regular morning medicine today. He takes Xarelto in the evenings, and reports that he did take it last night on 05/13. New medications include cyclobenzaprine for his tremors, baby aspirin, and an increase in his metoprolol to 100 mg p.o. twice daily. Patient reports that he was just recently started on aspirin after his mitral clip surgery at [facility]; he reports no prior history of heart stents. He does have a history of blood transfusions, and believes the last transfusion might have been 12 years ago. Patient denies smoking, tobacco use, or recent alcohol use. Patient is hypotensive at 93/44 at time of admission. ED course: Prothrombin complex concentrate 2000 units IV NSS 500 mL IV Pantoprazole 80 mg IV Famotidine 20 mg IV ROS: Patient endorses BRB in stool, recent injury to stomach, SERVIN (chronic), tremors, and burning with urination (ongoing for months). Patient denies fever, chills, night-sweats, dizziness, lightheadedness, chest pain, chest palpitations, pleuritic CP, coughing, hemoptysis, SOB, abdominal pain, N/V, blood in the urine, or numbness/tingling in the arms or legs. Discharge Exam General-alert and oriented x3, no fever, no chills HEENT-head atraumatic and normocephalic, pupils equal and reactive to light, extraocular muscles intact Neck-no lymphadenopathy or thyromegaly, trachea midline Chest-clear to auscultation. No rales, wheezing or rhonchi Cardiac-regular rate and rhythm, normal S1 and S2 Abdomen-normal bowel sounds, no hepatosplenomegaly Extremities-no cyanosis, clubbing, or edema Neuro-cranial nerves II through XII intact, motor and sensory function within normal limits, strength symmetrical, no focal deficits Psych-normal affect, normal mood Discharge Plan Discharge Items Patient Disposition: Transfer Inpatient Rehab Fac Reason For Visit: RECTAL BLEED Discharge Diagnosis: Hemorrhagic shock, lower GI bleeding of suspected diverticular origin, acute blood loss anemia, hypokalemia Condition on Discharge: Good Activity: Resume your previous activity Non-emergency contact: Primary Care Provider Call non-emergency contact if: your symptoms worsen Follow-up/Referrals: Zackery Cochran DO [Primary Care Provider] - Diet: Regular and Heart Healthy Addtl Attending Provider Instructions: Xarelto has been discontinued. Take ferrous sulfate 325 mg twice daily going forward. Potassium has been temporarily increased to 40 mEq twice daily Pending Studies at Discharge: No Stand-Alone Forms: My [facility] Skilled Items Patient informed of condition?: Yes DNR: Yes Discharge Level of Care: Acute rehab Communicable Disease: No Discharge Prognosis: Stable Lines: None Urinary Catheter: No Medications and DC Order Prescriptions: New pantoprazole 40 mg Tablet,Delayed Release (Dr/Ec) 40 mg PO BID Qty: 0 0RF sucralfate 1 gram Tablet 1 g PO QID Qty: 0 0RF potassium chloride 20 mEq Tablet,Er Particles/Crystals 40 meq PO BID Qty: 0 0RF Continued cyanocobalamin (vitamin B-12) 1,000 mcg/mL solution 1,000 mcg IM Q90D Qty: 30 0RF metolazone 5 mg tablet 5 mg PO DAILY PRN (Reason: weight gain) Qty: 30 5RF calcitriol 0.25 mcg capsule 0.5 mcg PO QAM Qty: 180 3RF tramadol 50 mg tablet 50 mg PO BID PRN (Reason: Pain) Qty: 60 0RF midodrine 10 mg tablet 10 mg PO TID@0800,1200,1700 Qty: 270 3RF amoxicillin 500 mg tablet 2,000 mg PO DIRECTED PRN (Reason: 1 HOUR PRIOR TO DENTAL PROCEDURES) Patient Comments: 2,000 mg PO 1 hour prior to dental procedure.; Rx Instructions: TAKE 4 CAPSULES BY MOUTH 1 HOUR PRIOR TO DENTAL WORK (DME) Portable Oxygen Misc See Rx Instructions .Route Qty: 1 0RF Rx Instructions: As directed allopurinol 100 mg tablet 50 mg PO QAM cyclobenzaprine 5 mg tablet 5 mg PO BID PRN (Reason: muscle pain/stiffness) Patient Comments: Takes BID helps with tremor metoprolol succinate [Toprol XL] 100 mg tablet extended release 24 hr 100 mg PO BID torsemide 100 mg tablet 100 mg PO BID aspirin 81 mg tablet,chewable 81 mg PO DAILY magnesium 250 mg Tablet 250 mg PO HS cholecalciferol (vitamin D3) [Vitamin D3] 50 mcg (2,000 unit) Capsule 50 mcg PO DAILY tamoxifen 20 mg tablet 20 mg PO QAM docusate sodium 100 mg Capsule 100 mg PO DAILY PRN (Reason: constipation) Qty: 0 0RF Discontinued rivaroxaban 15 mg tablet 15 mg PO HS Qty: 90 3RF potassium chloride 10 mEq capsule, extended release 20 meq PO BID Discharge Orders: Discharge Order (Routine); Ordered 05/19/24 Ordered By: Glenn Rodriguez Admission Data Admit Date/Time: 05/14/24 17:00 Attending Provider: Glenn Rodriguez Admit Provider: Primitivo Pollard Primary Care Provider: Zackery Cochran [facility]; Primitivo Pollard; Ben King; Sergio Lopez; Gu[facility] She[facility] Stay Data Consultations 05/14/24 13:14 ED Decision to Admit Stat 05/14/24 13:57 Consult Gastroenterology Routine 05/14/24 17:00 Consult Airworthiness Safety Inspector Routine 05/15/24 13:01 Consult General Surgery Routine Procedures Performed Operation Date: 05/16/24 16:45 Actual Procedures p Colonoscopy Polypectomy - Uday Chamberlain MD Diagnostic Imagining Performed 05/14/24 12:27 CT abd pelvis wo con Stat 05/14/24 20:29 CT angio abdomen pelvis w con Stat Pending Results Patient Have Any Pending Studies at Discharge: No Discharge Instructions Given to Patient (Per Discharging Provider) Xarelto has been discontinued. Take ferrous sulfate 325 mg twice daily going forward. Potassium has been temporarily increased to 40 mEq twice daily Total Time Total Time Spent Total Time Spent (In Minutes): 45-minute Coding Level of Care Code 58978 INP/OBS DISCH >30 MIN Diagnoses Hemorrhagic shock R57.8 Acute blood loss anemia D62 Rectal bleed K62.5 Chronic kidney disease, stage 4 (severe) N18.4 Chronic atrial fibrillation I48.20 History of aortic valve replacement with bioprosthetic valve Z95.3 Hypokalemia E87.6
[2024-05-19] MEDS: POTASSIUM CHLORIDE CRTAB 20 MEQ TABCR PO STA (12:47)
[2024-05-19] MEDS: SODIUM CHLORIDE 0.9% 500 ML IV ONE (14:30)
[2024-05-19 15:55] VITALS: PULSE 98; RESP 18; O2SAT 97
[2024-05-19 16:45] VITALS: BP 100/62
--- NOTE | 2024-05-19 17:57 | Electrocardiogram Report ---
Test Reason : Blood Pressure : */* mmHG Vent. Rate : 101 BPM Atrial Rate : 102 BPM P-R Int : * ms QRS Dur : 96 ms QT Int : 278 ms P-R-T Axes : * 80 161 degrees QTcB Int : 360 ms Atrial fibrillation with rapid ventricular response Nonspecific ST and T wave abnormality Abnormal ECG When compared with ECG of 14-May-2024 12:01, QT has shortened Confirmed by Taco Cabrera ([id number]) on 05/19/2024 5:56:48 PM Referred By: REFERRED SELF Confirmed By: Taco Cabrera
[2024-05-19] MEDS ORDERED: POTASSIUM CHLORIDE CRTAB 20 MEQ TABCR PO SCH (21:00)
== END 2024-05-19 19:04 | DRG 377 ==
LOC: ED 11:42 → EDINP 14:11 → SUATTDRO 14:11 → 1E 16:52 → 2W 05-17 12:20

== ENCOUNTER 2024-06-03 18:04 | Inpatient (IN) ==
--- NOTE | 2024-06-03 18:59 | Emergency Department Note ---
Impression & Plan Acute hypokalemia, Elevated brain natriuretic peptide (BNP) level, Elevated troponin ED Provider Note HISTORY OF PRESENT ILLNESS: Patient is an 84-year-old male presenting for hypokalemia. Patient is currently residing at [facility]. He had follow-up blood work obtained today and was called that his potassium was "dangerously low" and referred to the emergency department. Patient denies any chest pain or shortness of breath. Patient does report that he is having pain in his bilateral lower extremities denies any nausea vomiting abdominal pain. ROS: as above PHYSICAL EXAM: Constitutional: Patient appears in no acute distress. HENT: Head: Normocephalic and atraumatic. Eyes: EOMI, PERRL Mouth/Throat: Mucous membranes moist. Neck: Trachea midline. Neck supple. Cardiovascular: Irregular rhythm. No murmurs, rubs or gallops. Intact distal pulses. Pulmonary/Chest: No respiratory distress. Breath sounds clear and equal bilaterally. No wheezes or rales. Abdominal: Abdomen soft, no tenderness, rebound or guarding. Musculoskeletal: No tenderness or deformity noted. +2 pitting edema of the bilateral lower extremities. Skin: Warm and dry. No rash, erythema, pallor or cyanosis Psychiatric: Appropriate mood and affect for situation. Neurological: Alert and keenly responsive. CN II-XII grossly intact, moving all extremities equally and fully. MDM: - Vitals signs showed tachycardia - History obtained via patient. History as above. - Chronic conditions affecting care: CHF; CKD; DM-2; FIFI; Afib - Differential diagnoses include, but are not limited to: Electrolyte abnormality; dysrhythmia; excessive diuretic use; pneumonia; CHF exacerbation - Order placed for continuous cardiac monitoring. At this time, monitor showed rate of 99 bpm with irregular rhythm, per my interpretation. - External medical records reviewed. Primary care visit note from today was reviewed. Patient was seen for a follow-up for GI bleed. - EKG image interpreted by myself showed atrial fibrillation. Rate 84 bpm. QT 338. No acute ischemic changes. - Laboratory workup interpreted by myself showed normal WBC; chronic anemia (Hgb 10.0); normal PT/INR; hypokalemia (K 2.4); CKD (Cr 2.99); elevated BNP (748); elevated troponin (48.3); hypermagnesemia - Patient given a total of 40 mEq PO potassium and 30 mEq IV potassium. - Patient's blood pressure became hypotensive after his first IV potassium infusion. He was given 1 L normal saline with improvement in his blood pressure. - CXR image reviewed by myself negative from a pneumonia, per my interpretation. - Discussion was had with machine adjuster leader case trim about patient's case and need for admission - Hospitalist consulted for admission - [facility] ASSESSMENT AND PLAN: Diagnosis: hypokalemia; elevated BNP; elevated troponin Plan: admit Past Med/Surg History Problem List (Updated 06/03/24 @ 21:19 by Maria Fernanda Amato MD) Elevated troponin (Acute) Elevated brain natriuretic peptide (BNP) level (Acute) Acute hypokalemia (Acute) Tremor Back pain, thoracic Hypomagnesemia Hypokalemia History of aortic valve replacement with bioprosthetic valve Chronic atrial fibrillation Acute blood loss anemia Hemorrhagic shock CRF (chronic renal failure) (Acute) Anticoagulated (Acute) Hypotension (Acute) Anemia (Acute) Acute GI bleeding (Acute) Hypovolemic shock Acute gastrointestinal bleeding Atrial fibrillation Rectal bleed Atrial fibrillation with RVR (Acute) Permanent atrial fibrillation with RVR Chest pain Acute respiratory failure with hypoxia (Acute) Acute on chronic diastolic CHF (congestive heart failure) Excessive attrition of teeth, extending into dentine Hip pain, right Hypokalemia Bacteremia Thrombocytopenia (Acute) Fall (Acute) Sepsis (Acute) Abnormal CT of the abdomen Sepsis Chronic anemia Iron deficiency Traumatic open wound of left lower leg with delayed healing (Acute) Lower extremity edema Decreased calculated glomerular filtration rate (GFR) Secondary hyperparathyroidism History of aortic valve disease s/p AVR (2006) History of renal cell carcinoma Hypokalemia Chronic venous insufficiency (Chronic) Traumatic open wound of right lower leg (Acute) Wound of right leg Class 3 severe obesity due to excess calories with body mass index (BMI) of 40.0 to 44.9 in adult Gynecomastia, male Family history of breast cancer gene mutation in first degree relative Hx of gynecomastia Left breast lump Nocturnal hypoxemia Complex sleep apnea syndrome Chronic kidney disease, stage 4 (severe) (Chronic) Hypertension (Chronic) Shortness of breath Acute diastolic (congestive) heart failure Hypermagnesemia Arm pain Hand numbness Foraminal stenosis of cervical region Vitamin D deficiency Anxiety (Acute) Venous insufficiency (chronic) (peripheral) Morbid obesity with BMI of 40.0-44.9, adult Gout Microcytic anemia Chronic low back pain with right-sided sciatica B12 deficiency Chronic diastolic CHF (congestive heart failure) (Chronic) Hyperlipidemia (Chronic) Medical History Congestive heart failure Chronic dental pain Hypotension Chronic renal insufficiency, stage IV (severe) Iron deficiency anemia Obstructive sleep apnea BIPAP Diabetes mellitus Aspiration into respiratory tract Acute kidney injury superimposed on CKD Morbid obesity History of anxiety Hx of gout Hx of rotator cuff tear Difficulty with raising arms without extreme pain, currently in PT Hx of osteoarthritis Hx of impacted cerumen History of COVID-19 01/2021 > "mild" cold symptoms, resolved Prediabetes Kidney stones Hx x7 Renal cell adenocarcinoma s/p nephrectomy Chronic kidney disease, stage III (moderate) CKD (chronic kidney disease), stage III Surgical History H/O aortic valve replacement Hx of cardiac catheterization 11/2020 > no stents History of total bilateral knee replacement History of esophagogastroduodenoscopy (EGD) Hx of colonoscopy Hx of tonsillectomy Hx of cystoscopy w/stone basketing History of left nephrectomy History of spinal surgery Aortic valve replaced bioprosthesis, 2006 History of gastric bypass History of cholecystectomy Family History Mother Breast cancer Lung disease Grandmother (Maternal) Breast cancer Aunt Breast cancer Sister Breast cancer Father Myocardial infarction Arthritis Denies family history of Ovarian cancer Prostate cancer Colorectal cancer Social History Smoking Status: Never smoker Second Hand Exposure: No; Do You Dip or Chew Tobacco: No; Hx Alcohol Use: No Hx Substance Use: No Preferred Language: Irish Communication Ability: Effective Visual Impairment: No Limitations Hearing Ability: Normal Bank Advisor Required: No Beliefs That Will Affect Care: None marital status: Current Living Situation: Spouse and Family Current Living Situation Comment: Lives w/ , son lives in basement current occupational status: retired 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[employer] Feels Safe at Home: Yes Childhood Exposure to Second-Hand Smoke: Yes Diet: regular caffeine: Yes Dental Care, Regularly: Yes Physical Activity Frequency: Does not Exercise Physical Activity Frequency Comment: Physical activity limited due to medical conditions Seatbelt Use: always Sunscreen Use: No Do you think of yourself as: straight/heterosexual Gender Identity: Male Assistive Devices: Cane, CPAP, Oxygen - at Night and Walker Allergies Allergies Allergy/AdvReac Type Severity Reaction Status Date / Time iron [From Venofer] AdvReac Mild Vomiting Verified 06/03/24 13:04 Iodinated Contrast Media AdvReac Unknown PT ONLY Verified 06/03/24 13:04 [Iodinated Contrast- Oral HAS 1 and IV Dye] KIDNEY, CONTRAINDICATED. Home Meds Home Medications Medication Instructions Recorded Confirmed amoxicillin 500 mg tablet 2,000 mg PO DIRECTED PRN 1 HOUR 11/16/18 06/03/24 PRIOR TO DENTAL PROCEDURES cholecalciferol (vitamin D3) 50 50 mcg PO DAILY 07/10/22 06/03/24 mcg (2,000 unit) capsule (Vitamin D3) allopurinol 100 mg tablet 50 mg PO QAM 03/03/24 06/03/24 aspirin 81 mg chewable tablet 81 mg PO DAILY 05/13/24 06/03/24 cyclobenzaprine 5 mg tablet 5 mg PO BID PRN muscle 05/13/24 06/03/24 pain/stiffness metoprolol succinate 100 mg 100 mg PO BID 05/13/24 06/03/24 tablet,extended release 24 hr (Toprol XL) Previous Rx's Medication Instructions Recorded cyanocobalamin (vitamin B-12) 1,000 mcg IM Q90D #30 mL 09/23/22 1,000 mcg/mL injection solution metolazone 5 mg tablet 5 mg PO DAILY PRN weight gain #30 10/23/22 tabs Portable Oxygen #1 ea 05/25/23 docusate sodium 100 mg capsule 100 mg PO DAILY PRN constipation 02/08/24 #0 caps calcitriol 0.25 mcg capsule 0.5 mcg (2 x 0.25 mcg) PO QAM #180 04/01/24 caps tramadol 50 mg tablet 50 mg PO BID PRN Pain #60 tabs 04/01/24 midodrine 10 mg tablet 10 mg PO TID@0800,1200,1700 #270 04/04/24 tabs ferrous sulfate 324 mg (65 mg 324 mg PO BID 90 days #180 tabs 06/03/24 iron) tablet,delayed release magnesium 200 mg tablet 200 mg PO DAILY #90 tabs 06/03/24 pantoprazole 40 mg tablet,delayed 40 mg PO QAM 90 days #90 tabs 06/03/24 release tamoxifen 20 mg tablet 20 mg PO QAM #90 tabs 06/03/24 torsemide 100 mg tablet 100 mg PO BID 90 days #180 tabs 06/03/24 Results & Data (ED) Vital Signs Vital Signs - 24 hr 06/03/24 18:23 06/03/24 18:41 06/03/24 18:41 Temperature 36.5 C Temperature Source Temporal Artery Scan Pulse Rate 92 H Pulse Rate [Apical] 84 Pulse Rhythm Respiratory Rate 20 21 Respiratory Effort / Characteristics SOB on Exertion Non-Labored Spontaneous Respiratory Depth Normal Respiratory Pattern Regular Blood Pressure 94/64 L Blood Pressure [Right Arm] 102/54 L Blood Pressure Mean 74 Blood Pressure Mean [Right Arm] 70 Blood Pressure Position [Right Arm] Semi-fowlers Pulse Oximetry 99 100 100 Oxygen Delivery Method Room Air Room Air Room Air Sepsis Recent Fever Within 48 Hours No Sepsis New/Unexplained Change in Mental Status No Sepsis Action Taken by Nursing No Action Required 06/03/24 18:41 06/03/24 18:42 06/03/24 20:04 Temperature Temperature Source Pulse Rate 97 H 88 Pulse Rate [Apical] 91 H Pulse Rhythm Irregular Respiratory Rate 20 22 Respiratory Effort / Characteristics Non-Labored Spontaneous Respiratory Depth Normal Respiratory Pattern Regular Blood Pressure Blood Pressure [Right Arm] 87/59 L Blood Pressure Mean Blood Pressure Mean [Right Arm] 68 Blood Pressure Position [Right Arm] Pulse Oximetry 100 Oxygen Delivery Method Room Air Room Air Sepsis Recent Fever Within 48 Hours Sepsis New/Unexplained Change in Mental Status Sepsis Action Taken by Nursing 06/03/24 20:20 06/03/24 20:31 06/03/24 20:45 Temperature Temperature Source Pulse Rate Pulse Rate [Apical] 94 H 89 Pulse Rhythm Respiratory Rate 20 19 Respiratory Effort / Characteristics Non-Labored Spontaneous Non-Labored Spontaneous Respiratory Depth Normal Normal Respiratory Pattern Regular Regular Blood Pressure Blood Pressure [Right Arm] 88/60 L 111/54 L 100/61 Blood Pressure Mean Blood Pressure Mean [Right Arm] 69 73 74 Blood Pressure Position [Right Arm] Semi-fowlers Pulse Oximetry 95 94 Oxygen Delivery Method Room Air Room Air Sepsis Recent Fever Within 48 Hours Sepsis New/Unexplained Change in Mental Status Sepsis Action Taken by Nursing 06/03/24 21:00 Temperature Temperature Source Pulse Rate Pulse Rate [Apical] 99 H Pulse Rhythm Respiratory Rate 21 Respiratory Effort / Characteristics Non-Labored Spontaneous Respiratory Depth Normal Respiratory Pattern Regular Blood Pressure Blood Pressure [Right Arm] 98/60 L Blood Pressure Mean Blood Pressure Mean [Right Arm] 72 Blood Pressure Position [Right Arm] Semi-fowlers Pulse Oximetry Oxygen Delivery Method Room Air Sepsis Recent Fever Within 48 Hours Sepsis New/Unexplained Change in Mental Status Sepsis Action Taken by Nursing Laboratory Data 06/03/24 18:47 06/03/24 18:47 Lab Results 06/03/24 06/03/24 Range/Units 18:47 18:48 WBC 8.18 (4.8-10.8) K/ul RBC 3.78 L (4.70-6.10) M/uL Hgb 10.0 L (14.0-18.0) g/dl Hct 31.5 L (42.0-52.0) % MCV 83.3 (80.0-100.0) fL MCH 26.5 (25.0-34.0) pg MCHC 31.7 L (32.0-36.0) g/dL RDW Std Deviation 57.2 H (36.4-46.3) fL RDW Coeff of Sarah 18.8 H (11.5-14.5) % Plt Count 194 (130-400) K/uL MPV 9.8 (9.4-12.4) fL Immature Gran % (Auto) 0.4 % Neut % (Auto) 65.9 % Lymph % (Auto) 17.6 % [place] % (Auto) 12.3 % Eos % (Auto) 2.7 % Baso % (Auto) 1.1 % Neut # (Auto) 5.39 (1.40-6.50) K/uL Lymph # (Auto) 1.44 (1.20-3.40) K/uL [place] # (Auto) 1.01 H (0.11-0.59) K/uL Eos # (Auto) 0.22 (0.00-0.50) K/uL Baso # (Auto) 0.09 (0.00-0.20) K/uL Immature Gran # (Auto) 0.03 (0.01-0.20) K/uL PT 10.7 (9.0-12.0) Seconds INR 1.0 (0.9-1.1) APTT 22 (21-31) Seconds PTT Ratio 0.8 Sodium 139 (136-145) mmol/L Potassium 2.4 L* (3.5-5.1) mmol/L Chloride 89 L (98-107) mmol/L Carbon Dioxide 35 H (21-32) mmol/L Anion Gap 15 H (3-11) BUN 85 H (6-23) mg/dl Creatinine 2.99 H (0.6-1.4) mg/dl Est Cr Clr Drug Dosing 20.9 ml/min eGFR 20.19 BUN/Creatinine Ratio 28.4 H (10-20) Glucose 92 (70-99(Fasting)) mg/dl Calcium 10.3 (8.6-10.3) mg/dl Magnesium 2.7 H (1.7-2.4) mg/dl Total Bilirubin 0.9 (0.2-1.0) mg/dl AST 30 (13-39) U/L ALT 11 (7-52) U/L Alkaline Phosphatase 75 (34-104) U/L Troponin I High Sens 48.3 H (0-20) pg/ml B-Natriuretic Peptide 748 H (0-100) pg/ml Total Protein 6.6 (6.0-8.3) gm/dl Albumin 3.6 (3.4-5.0) gm/dl Globulin 3.0 (2.5-4.0) gm/dl Albumin/Globulin Ratio 1.2 (0.9-2) Administered Medications Potassium Chloride (K Jimi / Wtr) 10 meq in 100 mls @ 100 mls/hr IV Q1H BEHZAD Stop: 06/03/24 22:29 Last Admin: 06/03/24 21:03 Dose: 100 mls/hr Documented By: Infusion: 06/03/24 21:03 Dose: Infused Documented By: Admin: 06/03/24 20:08 Dose: 100 mls/hr Documented By: RADHA Discontinued Medications Sodium Chloride (Nss) 1,000 mls @ 999 mls/hr IV .Q1H1M ONE Stop: 06/03/24 21:09 Last Infusion: 06/03/24 20:44 Dose: Infused Documented By: Admin: 06/03/24 20:13 Dose: 999 mls/hr Documented By: RADHA Potassium Chloride (Potassium Chloride Crtab 20 Meq Tabcr) 40 meq PO NOW STA Stop: 06/03/24 19:29 Last Admin: 06/03/24 20:08 Dose: 40 meq Documented By: RADHA Imaging Data Radiologist's Impression: Chest X-Ray 06/03/24 18:28 EXAM: Radiograph of the Chest 1 View INDICATION: Chest pain TECHNIQUE: Frontal view of the chest. COMPARISON: 05/14/2024 FINDINGS: Lungs and pleural spaces: There is stable prominent pulmonary vascular markings. No pulmonary edema or consolidation. No pleural effusion or pneumothorax. Heart: Stable enlargement and bowel prostheses. Mediastinum: Normal contour. Bones/joints: No fracture, erosion or dislocation. Soft tissues: No abnormality noted. No radiopaque foreign body noted. Upper abdomen: See above. IMPRESSION: Stable prominent pulmonary vascularity suggesting congestion. ACT 112: N/A Electronically signed by Daya Aguilar 06-03-2024 7:50 PM Discharge Plan Visit Data Chief Complaint: Referred by Doctor Stated Complaint: LOW POTASSIUM ED Provider: Maria Fernanda Amato Discharge Problem: Acute hypokalemia, Elevated brain natriuretic peptide (BNP) level, Elevated troponin Forms Stand Alone Forms: [facility] 3TI[facility] Prescriptions Prescriptions: No Action cyanocobalamin (vitamin B-12) 1,000 mcg/mL solution 1,000 mcg IM Q90D Qty: 30 0RF metolazone 5 mg tablet 5 mg PO DAILY PRN (Reason: weight gain) Qty: 30 5RF calcitriol 0.25 mcg capsule 0.5 mcg PO QAM Qty: 180 3RF tramadol 50 mg tablet 50 mg PO BID PRN (Reason: Pain) Qty: 60 0RF midodrine 10 mg tablet 10 mg PO TID@0800,1200,1700 Qty: 270 3RF amoxicillin 500 mg tablet 2,000 mg PO DIRECTED PRN (Reason: 1 HOUR PRIOR TO DENTAL PROCEDURES) Patient Comments: 2,000 mg PO 1 hour prior to dental procedure.; Rx Instructions: TAKE 4 CAPSULES BY MOUTH 1 HOUR PRIOR TO DENTAL WORK (DME) Portable Oxygen Misc See Rx Instructions .Route Qty: 1 0RF Rx Instructions: As directed pantoprazole 40 mg tablet,delayed release (DR/EC) 40 mg PO QAM 90 Days Qty: 90 2RF torsemide 100 mg tablet 100 mg PO BID 90 Days Qty: 180 1RF tamoxifen 20 mg tablet 20 mg PO QAM Qty: 90 1RF ferrous sulfate 324 mg (65 mg iron) tablet,delayed release (DR/EC) 324 mg PO BID 90 Days Qty: 180 3RF magnesium 200 mg tablet 200 mg PO DAILY Qty: 90 3RF allopurinol 100 mg tablet 50 mg PO QAM cyclobenzaprine 5 mg tablet 5 mg PO BID PRN (Reason: muscle pain/stiffness) Patient Comments: Takes BID helps with tremor metoprolol succinate [Toprol XL] 100 mg tablet extended release 24 hr 100 mg PO BID aspirin 81 mg tablet,chewable 81 mg PO DAILY cholecalciferol (vitamin D3) [Vitamin D3] 50 mcg (2,000 unit) Capsule 50 mcg PO DAILY docusate sodium 100 mg Capsule 100 mg PO DAILY PRN (Reason: constipation) Qty: 0 0RF Referrals Referrals: Zackery Cochran DO [Primary Care Provider] -
[2024-06-03 19:04] LABS: Basophils # (auto) 0.09 K/uL (0.00-0.20); Basophils % (auto) 1.1 %; Eosinophils # (auto) 0.22 K/uL (0.00-0.50); Eosinophils % (auto) 2.7 %; Hematocrit (blood only) 31.5 % (42.0-52.0); Immature Granulocytes # (auto) 0.03 K/uL (0.01-0.20); Immature Granulocytes % (auto) 0.4 %; Lymphocytes # (auto) 1.44 K/uL (1.20-3.40); Lymphocytes % (auto) 17.6 %; Mean Corpuscular Hemoglobin 26.5 pg (25.0-34.0); Mean Corpuscular Hgb Conc 31.7 g/dL (32.0-36.0); Mean Corpuscular Volume 83.3 fL (80.0-100.0); Mean Platelet Volume 9.8 fL (9.4-12.4); Monocytes # (auto) 1.01 K/uL (0.11-0.59); Monocytes % (auto) 12.3 %; Neutrophils # (auto) 5.39 K/uL (1.40-6.50); Neutrophils % (auto) 65.9 %; Platelet Count 194 K/uL (130-400); RDW Coefficient of Variation 18.8 % (11.5-14.5); RDW Standard Deviation 57.2 fL (36.4-46.3); Red Blood Count 3.78 M/uL (4.70-6.10); White Blood Count 8.18 K/ul (4.8-10.8)
[2024-06-03 19:24] LABS: Albumin Globulin Ratio 1.2 (0.9-2); Albumin Level 3.6 gm/dl (3.4-5.0); BUN Creatinine Ratio 28.4 (10-20); Bilirubin,Total 0.9 mg/dl (0.2-1.0); Calcium 10.3 mg/dl (8.6-10.3); Creatinine Clr Calc Pharmacy 20.9 ml/min; Magnesium 2.7 mg/dl (1.7-2.4); Potassium 2.4 mmol/L (3.5-5.1); Total Protein 6.6 gm/dl (6.0-8.3); Troponin I High Sensitivity 48.3 pg/ml (0-20)
[2024-06-03 19:34] LABS: Partial Thromboplastin Ratio 0.8; Partial Thromboplastin Time 22 Seconds (21-31); Prothrombin Time 10.7 Seconds (9.0-12.0)
--- NOTE | 2024-06-03 19:50 | XRay Report ---
EXAM: Radiograph of the Chest 1 View INDICATION: Chest pain TECHNIQUE: Frontal view of the chest. COMPARISON: 05/14/2024 FINDINGS: Lungs and pleural spaces: There is stable prominent pulmonary vascular markings. No pulmonary edema or consolidation. No pleural effusion or pneumothorax. Heart: Stable enlargement and bowel prostheses. Mediastinum: Normal contour. Bones/joints: No fracture, erosion or dislocation. Soft tissues: No abnormality noted. No radiopaque foreign body noted. Upper abdomen: See above. IMPRESSION: Stable prominent pulmonary vascularity suggesting congestion. ACT 112: N/A Electronically signed by Daya Aguilar 06-03-2024 7:50 PM
[2024-06-03] MEDS: POTASSIUM CHLORIDE / WTR 10 MEQ/100 ML PLCT IV SCH (20:08)
[2024-06-03] MEDS: POTASSIUM CHLORIDE CRTAB 20 MEQ TABCR PO STA ×2 (20:08→23:13)
[2024-06-03] MEDS: SODIUM CHLORIDE 0.9% 1,000 ML IV ONE (20:13)
--- NOTE | 2024-06-03 20:51 | History & Physical Report ---
Date of Service June 03, 2024 Assessment & Plan (1) Acute hypokalemia: (2) Elevated troponin: (3) DEONNA (acute kidney injury): Plan 84-year-old male PMHx A-fib with RVR on Xarelto, CHF, RACHELE, secondary hyperparathyroidism, RCC s/p L nephrectomy, CKD, HTN, HLD, and recent hospital admission 05/14/2024 until 05/19/2024 for hemorrhagic shock from GI bleed who is presenting due to referral from PCP for low potassium levels on outpatient labs. ED evaluation reveals no leukocytosis, H&H 10/31.5, potassium 2.4, chloride 89, CO2 35, AG 15, creatinine 2.99, BUN 85, ratio 28.4, magnesium 2.4, troponin 48.3, and BNP 748; CXR with stable prominent pulmonary vascularity suggestive of congestion; EKG A-fib at 84 bpm. Provided with 1L NSS, 40 mEq KCl p.o., and 10 mEq IV in ED. 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 Previously on potassium supplementation as outpatient, but was since discontinued (patient states this is discontinued on 05/28/2024). Patient with history of gastric bypass, metolazone and torsemide use, and pantoprazole use. Suspect that combination of current medications and recent discontinuation of potassium supplementation resulted in patient's hypokalemia. - K 2.4; Mg 2.4- BMP am - 40mEq po + 10 mEq IV given in ED; additional 40 mEq po given - repeat K following completion - HOLD pantoprazole, metolazone and torsemide at admission- consider restarting in am pending K levels - Monitor PCU given comorbidities + to monitor cardiac #Elevated troponin/Afib/HFrEF/HTN History of A-fib and HFrEF; on home regimen Xarelto, metoprolol, torsemide, metolazone. Troponin elevated on arrival, no chest pain. - EKG on admission A-fib, rate 84 bpm; without ischemic changes - Troponin 48.3, repeat 40.7; BNP 748 - Elevated troponin impacted CKD and demand related - Echo 04/28/2024 with EF 40 to 45% - Held diuretics at admission given hypokalemia will consider restarting following repeat K levels #DEONNA/CKD/History RCC s/p L nephrectomy H/o CKD stage IV; Slight increase in Cr from patient's baseline. - Cr 2.99, baseline appears 2.0-2.2; UA pending- BMP am - Given 1L IVF total; caution with fluid resuscitation given prior EF - Post void bladder scan pending; bladder scan prn #RACHELE- History of RACHELE, on ferrous sulfate outpatient. No signs of bleeding; H&H stable on admission 01/27.5; CBC a.m. #FIFI- 3L at night Dispo: Admit, PCU VTE prophylaxis: SCDs This document was dictated utilizing [employer]. Please excuse any grammatical errors that may be secondary to use of this software. Admission and Anticipated Discharge Date Admission Date: 06/03/2024 History of Present Illness Chief Complaint: Hypokalemia on labs Primary Care Provider: Zackery Cochran, 84-year-old male PMHx A-fib with RVR on Xarelto, CHF, RACHELE, secondary hyperparathyroidism, RCC s/p L nephrectomy, CKD, HTN, HLD, and recent hospital admission 05/14/2024 until 05/19/2024 for hemorrhagic shock from GI bleed who is presenting due to referral from PCP for low potassium levels on outpatient labs. Patient states that he is feeling "amazing" and is only here because he got a call from his PCP that he needed to be evaluated in the ED. States that he went to outpatient appointment 1300 and there were no concerns but at around 1700 he got a call that his potassium was severely low and he needed to be evaluated. Admits to taking both metolazone and torsemide every day, and also has dis continued taking potassium supplement as recommended by outside provider. Patient states that during his evaluation in ED, he noticed that his toes were having some cramping and slightly numb but that has improved after having the first amount of potassium. Denies muscle weakness, palpitations, constipation, lightheadedness, or polydipsia. Also denying chest pain, shortness of breath, abdominal pain, N/V/D/C, LUTS, headache, or fever/chills. ED evaluation reveals no leukocytosis, H&H 10/31.5, potassium 2.4, chloride 89, CO2 35, AG 15, creatinine 2.99, BUN 85, ratio 28.4, magnesium 2.4, troponin 48.3, and BNP 748; CXR with stable prominent pulmonary vascularity suggestive of congestion; EKG A- fib at 84 bpm. Provided with 1L NSS, 40 mEq KCl p.o., and 10 mEq IV in ED. Please see Dr. Cuevas's attestation for adjustments/additions to treatment plan. Allergies Allergy/AdvReac Type Severity Reaction Status Date / Time iron [From Venofer] AdvReac Mild Vomiting Verified 06/03/24 13:04 Iodinated Contrast Media AdvReac Unknown PT ONLY Verified 06/03/24 13:04 [Iodinated Contrast- Oral HAS 1 and IV Dye] KIDNEY, CONTRAINDICATED. Home Medications Medication Instructions Recorded Confirmed Type amoxicillin 500 mg tablet 2,000 mg PO DIRECTED PRN 1 HOUR 11/16/18 06/03/24 History PRIOR TO DENTAL PROCEDURES cholecalciferol (vitamin D3) 50 50 mcg PO DAILY 07/10/22 06/03/24 History mcg (2,000 unit) capsule (Vitamin D3) cyanocobalamin (vitamin B-12) 1,000 mcg IM Q90D #30 mL 09/23/22 06/03/24 Rx 1,000 mcg/mL injection solution metolazone 5 mg tablet 5 mg PO DAILY PRN weight gain #30 10/23/22 06/03/24 Rx tabs docusate sodium 100 mg capsule 100 mg PO DAILY PRN constipation 02/08/24 06/03/24 Rx #0 caps allopurinol 100 mg tablet 50 mg PO QAM 03/03/24 06/03/24 History calcitriol 0.25 mcg capsule 0.5 mcg (2 x 0.25 mcg) PO QAM #180 04/01/24 06/03/24 Rx caps tramadol 50 mg tablet 50 mg PO BID PRN Pain #60 tabs 04/01/24 06/03/24 Rx midodrine 10 mg tablet 10 mg PO TID@0800,1200,1700 #270 04/04/24 06/03/24 Rx tabs aspirin 81 mg chewable tablet 81 mg PO DAILY 05/13/24 06/03/24 History cyclobenzaprine 5 mg tablet 5 mg PO BID PRN muscle 05/13/24 06/03/24 History pain/stiffness metoprolol succinate 100 mg 100 mg PO BID 05/13/24 06/03/24 History tablet,extended release 24 hr (Toprol XL) Portable Oxygen 06/03/24 06/03/24 History ferrous sulfate 324 mg (65 mg 324 mg PO BID 90 days #180 tabs 06/03/24 06/03/24 Rx iron) tablet,delayed release magnesium 200 mg tablet 200 mg PO DAILY #90 tabs 06/03/24 06/03/24 Rx pantoprazole 40 mg tablet,delayed 40 mg PO QAM 90 days #90 tabs 06/03/24 06/03/24 Rx release tamoxifen 20 mg tablet 20 mg PO QAM #90 tabs 06/03/24 06/03/24 Rx torsemide 100 mg tablet 100 mg PO BID 90 days #180 tabs 06/03/24 06/03/24 Rx Past Med/Surg History Problem List Elevated troponin (Acute) Elevated brain natriuretic peptide (BNP) level (Acute) Acute hypokalemia (Acute) Tremor Back pain, thoracic Hypomagnesemia Hypokalemia History of aortic valve replacement with bioprosthetic valve Chronic atrial fibrillation Acute blood loss anemia Hemorrhagic shock CRF (chronic renal failure) (Acute) Anticoagulated (Acute) Hypotension (Acute) Anemia (Acute) Acute GI bleeding (Acute) Hypovolemic shock Acute gastrointestinal bleeding Atrial fibrillation Rectal bleed Atrial fibrillation with RVR (Acute) Permanent atrial fibrillation with RVR Chest pain Acute respiratory failure with hypoxia (Acute) Acute on chronic diastolic CHF (congestive heart failure) Excessive attrition of teeth, extending into dentine Hip pain, right Hypokalemia Bacteremia Thrombocytopenia (Acute) Fall (Acute) Sepsis (Acute) Abnormal CT of the abdomen Sepsis Chronic anemia Iron deficiency Traumatic open wound of left lower leg with delayed healing (Acute) Lower extremity edema Decreased calculated glomerular filtration rate (GFR) Secondary hyperparathyroidism History of aortic valve disease s/p AVR (2006) History of renal cell carcinoma Hypokalemia Chronic venous insufficiency (Chronic) Traumatic open wound of right lower leg (Acute) Wound of right leg Class 3 severe obesity due to excess calories with body mass index (BMI) of 40.0 to 44.9 in adult Gynecomastia, male Family history of breast cancer gene mutation in first degree relative Hx of gynecomastia Left breast lump Nocturnal hypoxemia Complex sleep apnea syndrome Chronic kidney disease, stage 4 (severe) (Chronic) Hypertension (Chronic) Shortness of breath Acute diastolic (congestive) heart failure Hypermagnesemia Arm pain Hand numbness Foraminal stenosis of cervical region Vitamin D deficiency Anxiety (Acute) Venous insufficiency (chronic) (peripheral) Morbid obesity with BMI of 40.0-44.9, adult Gout Microcytic anemia Chronic low back pain with right-sided sciatica B12 deficiency Chronic diastolic CHF (congestive heart failure) (Chronic) Hyperlipidemia (Chronic) Medical History Congestive heart failure Chronic dental pain Hypotension Chronic renal insufficiency, stage IV (severe) Iron deficiency anemia Obstructive sleep apnea BIPAP Diabetes mellitus Aspiration into respiratory tract Acute kidney injury superimposed on CKD Morbid obesity History of anxiety Hx of gout Hx of rotator cuff tear Difficulty with raising arms without extreme pain, currently in PT Hx of osteoarthritis Hx of impacted cerumen History of COVID-19 01/2021 > "mild" cold symptoms, resolved Prediabetes Kidney stones Hx x7 Renal cell adenocarcinoma s/p nephrectomy Chronic kidney disease, stage III (moderate) CKD (chronic kidney disease), stage III Surgical History H/O aortic valve replacement Hx of cardiac catheterization 11/2020 > no stents History of total bilateral knee replacement History of esophagogastroduodenoscopy (EGD) Hx of colonoscopy Hx of tonsillectomy Hx of cystoscopy w/stone basketing History of left nephrectomy History of spinal surgery Aortic valve replaced bioprosthesis, 2006 History of gastric bypass History of cholecystectomy Family History Mother Breast cancer Lung disease Grandmother (Maternal) Breast cancer Aunt Breast cancer Sister Breast cancer Father Myocardial infarction Arthritis Denies family history of Ovarian cancer Prostate cancer Colorectal cancer Social History Smoking Status: Never smoker Second Hand Exposure: No; Do You Dip or Chew Tobacco: No; Tobacco Cessation Education Requested by Patient: No Hx Alcohol Use: No Hx Substance Use: No Preferred Language: Hungarian Communication Ability: Effective Visual Impairment: No Limitations Hearing Ability: Normal Senior Grant 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: No Beliefs That Will Affect Care: None marital status: Current Living Situation: Spouse Current Living Situation Comment: Lives w/ , son lives in basement current occupational status: retired 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[employer] Other Information That Helps Us Care for You: No Feels Safe at Home: Yes Safety Concerns: Feels Safe At This Time Childhood Exposure to Second-Hand Smoke: Yes Diet: regular caffeine: Yes Dental Care, Regularly: Yes Physical Activity Frequency: Does not Exercise Physical Activity Frequency Comment: Physical activity limited due to medical conditions Seatbelt Use: always Sunscreen Use: No Do you think of yourself as: straight/heterosexual Gender Identity: Male Assistive Devices: Cane and Glasses Review of Systems Review of Systems: All systems reviewed & are unremarkable except as noted in Subjective Physical Exam Physical Exam: General: No acute distress Skin: Warm and dry Head: Normocephalic, atraumatic Eyes: PERRL, conjunctivae clear, sclera non-icteric ENT: External ear and ear canal without swelling; nose atraumatic; good dentition, tongue normal appearance, pharynx normal Neck: Supple, no LAD Cardio: Slightly tachycardic into the 90s, irregularly irregular rhythm, no M/G/R, S1 and S2 normal Resp: No respiratory distress, Lungs CTA in all lobes bilaterally, no wheezes, rales, or rhonchi Abdomen: Soft, symmetric, nontender; No masses or hepatosplenomegaly; Bowel sounds normoactive MSK: No deformities; pulses palpable and equal; no edema. Neuro: Awake, alert; sensation intact bilaterally; CN grossly intact Psych: Appropriate mood and affect; good judgement and insight. Results & Data Results & Data Vital Signs (Past 12 Hours) Vital Signs Temp Pulse Pulse Resp BP BP Pulse Ox 06/03/24 20:31 111/54 L 06/03/24 20:20 94 H 20 88/60 L 95 06/03/24 20:04 91 H 22 87/59 L 06/03/24 18:42 88 06/03/24 18:41 97 H 20 100 06/03/24 18:41 100 06/03/24 18:41 84 21 102/54 L 100 03/07/25 18:23 36.5 C 92 H 20 94/64 L 99 O2 Del Method 06/03/24 20:31 06/03/24 20:20 Room Air 06/03/24 20:04 Room Air 06/03/24 18:42 06/03/24 18:41 Room Air 06/03/24 18:41 Room Air 06/03/24 18:41 Room Air 06/03/24 18:23 Room Air Laboratory Results 06/03/24 06/03/24 18:48 18:47 WBC 8.18 RBC 3.78 L Hgb 10.0 L Hct 31.5 L MCV 83.3 MCH 26.5 MCHC 31.7 L RDW Std Deviation 57.2 H RDW Coeff of Sarah 18.8 H Plt Count 194 MPV 9.8 Immature Gran % (Auto) 0.4 Neut % (Auto) 65.9 Lymph % (Auto) 17.6 [place] % (Auto) 12.3 Eos % (Auto) 2.7 Baso % (Auto) 1.1 Neut # (Auto) 5.39 Lymph # (Auto) 1.44 [place] # (Auto) 1.01 H Eos # (Auto) 0.22 Baso # (Auto) 0.09 Immature Gran # (Auto) 0.03 PT 10.7 INR 1.0 APTT 22 PTT Ratio 0.8 Sodium 139 Potassium 2.4 L* Chloride 89 L Carbon Dioxide 35 H Anion Gap 15 H BUN 85 H Creatinine 2.99 H Est Cr Clr Drug Dosing 20.9 eGFR 20.19 BUN/Creatinine Ratio 28.4 H Glucose 92 Calcium 10.3 Magnesium 2.7 H Total Bilirubin 0.9 AST 30 ALT 11 Alkaline Phosphatase 75 Troponin I High Sens 48.3 H B-Natriuretic Peptide 748 H Total Protein 6.6 Albumin 3.6 Globulin 3.0 Albumin/Globulin Ratio 1.2 Diagnostic Findings Chest X-Ray 06/03/24 18:28 EXAM: Radiograph of the Chest 1 View INDICATION: Chest pain TECHNIQUE: Frontal view of the chest. COMPARISON: 05/14/2024 FINDINGS: Lungs and pleural spaces: There is stable prominent pulmonary vascular markings. No pulmonary edema or consolidation. No pleural effusion or pneumothorax. Heart: Stable enlargement and bowel prostheses. Mediastinum: Normal contour. Bones/joints: No fracture, erosion or dislocation. Soft tissues: No abnormality noted. No radiopaque foreign body noted. Upper abdomen: See above. IMPRESSION: Stable prominent pulmonary vascularity suggesting congestion. ACT 112: N/A Electronically signed by Daya Aguilar 06-03-2024 7:50 PM Medications Administered NSS 1L KCl 40 mEq p.o. KCl 10 mEq IV ECG Additional Comments: A-fib, ST abnormality 84 bpm, QRS 98, QT/QTc 338/399, PRT */60/188 Code Status & VTE Plan Code Status Full Supervising Physician Co-Signing Physician Notes Attending addendum: I have physically seen this patient, have supervised the KENA's activities, and agree with the H&P unless as otherwise noted. Assessment and Plan: The patient is an 84-year-old male with a past medical history including atrial fibrillation with RVR on Xarelto, CHF, RACHELE, secondary hyperparathyroidism, RCC status post left nephrectomy, CKD, hypertension, hyperlipidemia, with most recent hospitalization at [facility] from 05/14-05/19/2024 for hemorrhagic shock due to GI bleed. The patient was referred to the emergency department by his outpatient physician, due to abnormal outpatient laboratories showing a low potassium and worsening kidney function. Emergency department patient was found to have a potassium of 2.4, and the creatinine had increased from 2.13-2.99, and was then referred for evaluation for admission to the [facility] hospitalist service. #Hypokalemia- Potassium 2.4, magnesium 2.4 admission From the ED the patient received the following Klor-Con 40 mill equivalents p.o., and 10 mill equivalent potassium chloride IV riders x 3. Patient was then given additional 40 mill equivalents of potassium p.o., and will be checking his BMP and magnesium levels every 4 hours Hold pantoprazole, metolazone and torsemide until potassium levels normalized or other symptoms develop Will be followed on telemetry to monitor for any possible arrhythmias Acute kidney injury superimposed on CKD- Creatinine 2.99 with base 2.13 IV fluid resuscitation as noted above, and recheck laboratories in the a.m. Elevated troponin/atrial fibrillation/HFrEF/hypertension- No acute findings on EKG Most recent echocardiogram on 04/28/2024 with ejection fraction 40-45% Continuing metoprolol succinate with hold parameters Holding torsemide, metolazone Chronic medical conditions: Vitamin D deficiency-continue supplement Vitamin B12 deficiency-IM injection as an outpatient Muscle spasm-cyclobenzaprine as needed Iron deficiency-continue iron supplement GERD-continue pantoprazole Male gynecomastia-on tamoxifen Complex sleep apnea syndrome-CPAP at bedtime Remaining orders and notations as noted PG Care Time/CCT Total # of Minutes Spent Total Time Spent with Patient: Total time spent is greater than 50% in coordination of care (as documented) at patient's floor/unit and/or counseling patient: Coding Level of Care Code 31021 INT INP/OBS CARE 375MIN Diagnoses Acute hypokalemia E87.6 Elevated troponin R79.89 DEONNA (acute kidney injury) N17.9
[2024-06-03] MEDS: LACTATED RINGER'S 500 ML IV ONE (22:03)
[2024-06-03] MEDS: MIDODRINE HCL 10 MG TAB PO STA (22:14)
[2024-06-03] MEDS ORDERED: POLYETHYLENE (MIRALAX) 17 GM PACK PO PRN (22:51)
[2024-06-04] MEDS: POTASSIUM CHLORIDE CRTAB 20 MEQ TABCR PO STA ×3 (02:39→09:07)
[2024-06-04] MEDS: LACTATED RINGER'S 500 ML IV ONE (02:51)
[2024-06-04] MEDS: ASPIRIN 81 MG ECTAB PO SCH (08:08)
[2024-06-04] MEDS: FERROUS SULFATE 325 MG TAB PO SCH (08:08)
[2024-06-04] MEDS: CHOLECALCIFEROL 25 MCG (1000 UNITS) TAB PO SCH (08:08)
[2024-06-04] MEDS: CALCITRIOL 0.25 MCG CAPSULE PO SCH (08:08)
[2024-06-04] MEDS: allopurinoL 100 MG TAB PO SCH (08:08)
[2024-06-04] MEDS: MAGNESIUM OXIDE 400 MG TAB PO SCH (08:09)
[2024-06-04] MEDS: MIDODRINE HCL 10 MG TAB PO SCH (08:09)
[2024-06-04] MEDS: METOPROLOL SUCC 50MG EXT REL TAB PO SCH (08:09)
[2024-06-04] MEDS: TAMOXIFEN CITRATE 10 MG TABLET PO SCH (08:10)
[2024-06-04] MEDS: CYCLOBENZAPRINE HCL 10 MG TAB PO PRN (08:16)
[2024-06-04] MEDS: POTASSIUM CHLORIDE / WTR 10 MEQ/100 ML PLCT IV SCH (09:08)
--- NOTE | 2024-06-04 13:50 | Hospitalist Progress Note ---
Date of Service June 04, 2024 Assessment & Plan (1) Acute hypokalemia: (2) Elevated troponin: (3) DEONNA (acute kidney injury): Plan 84-year-old male PMHx A-fib with RVR on Xarelto, CHF, RACHELE, secondary hyperparathyroidism, RCC s/p L nephrectomy, CKD, HTN, HLD, and recent hospital admission 05/14/2024 until 05/19/2024 for hemorrhagic shock from GI bleed who is presenting due to referral from PCP for low potassium levels on outpatient labs. ED evaluation reveals no leukocytosis, H&H 10/31.5, potassium 2.4, chloride 89, CO2 35, AG 15, creatinine 2.99, BUN 85, ratio 28.4, magnesium 2.4, troponin 48.3, and BNP 748; CXR with stable prominent pulmonary vascularity suggestive of congestion; EKG A-fib at 84 bpm. Provided with 1L NSS, 40 mEq KCl p.o., and 10 mEq IV in ED. 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 Previously on potassium supplementation as outpatient, but was since discontinued (patient states this is discontinued on 05/28/2024). Patient with history of gastric bypass, metolazone and torsemide use, and pantoprazole use. Suspect that combination of current medications and recent discontinuation of potassium supplementation resulted in patient's hypokalemia. - K 2.4; Mg 2.4- BMP am - 40mEq po + 10 mEq IV given in ED; additional 40 mEq po given - repeat K following completion - HOLD pantoprazole, metolazone and torsemide at admission- consider restarting once potassium levels are more stable - Monitor PCU given comorbidities + to monitor cardiac Potassium this morning 06/04 was 2.8. Replete further with 40 mEq p.o. and 40 mEq IV potassium. Continue to hold diuretics. #Elevated troponin/Afib/HFrEF/HTN History of A-fib and HFrEF; on home regimen Xarelto, metoprolol, torsemide, metolazone. Troponin elevated on arrival, no chest pain. - EKG on admission A-fib, rate 84 bpm; without ischemic changes - Troponin 48.3, repeat 40.7; BNP 748 - Elevated troponin related to CKD and demand ischemia - Echo 04/28/2024 with EF 40 to 45% - Held diuretics at admission given hypokalemia will consider restarting following stable K levels #DEONNA/CKD/History RCC s/p L nephrectomy H/o CKD stage IV; Slight increase in Cr from patient's baseline. - Cr 2.99, baseline per nephrology visit 04/23 appears to be 3-3.2; - Given 1L IVF total; caution with fluid resuscitation given prior EF. No more IV fluids to be given - Post void bladder scan pending; bladder scan prn #RACHELE- History of RACHELE, on ferrous sulfate outpatient. No signs of bleeding; H&H stable on admission #FIFI- 3L at night Dispo: Admit, PCU VTE prophylaxis: SCDs This document was dictated utilizing [employer] Please excuse any grammatical errors that may be secondary to use of this software. Admission and Anticipated Discharge Date Admission Date: June 03, 2024 Subjective Patient was seen and examined at 11:45 AM. He was accompanied by his and daughter in his room. He denied any chest pain or shortness of breath. He feels well overall. He says that he is tolerating the potassium IV better now. Review of Systems Review of Systems: All systems reviewed & are unremarkable except as noted in Subjective Physical Exam Physical Exam: General: Awake, conversant Heart: S1, S2/regular rate and rhythm, no murmur rubs or gallops Lungs: Clear to auscultation bilaterally. Normal effort Abdomen: Soft/nontender/nondistended. No hepatosplenomegaly Extremities: No clubbing/cyanosis. Trace bilateral edema Behavior: Appropriate, cooperative Results & Data Results & Data Vital Signs (Past 12 Hours) Vital Signs Temp Pulse Pulse Resp BP Pulse Ox O2 Del Method 06/04/24 11:26 36.5 C 84 18 90/53 L 93 Room Air 06/04/24 08:49 77 06/04/24 07:43 36.6 C 82 18 97/66 L 100 Nasal Cannula 06/04/24 04:10 68 18 99 06/04/24 04:05 105/60 06/04/24 03:28 81/52 L 06/04/24 03:09 36.5 C 71 18 89/51 L 100 CPAP O2 Flow Rate 06/04/24 11:26 06/04/24 08:49 06/04/24 07:43 3.0 06/04/24 04:10 3 06/04/24 04:05 06/04/24 03:28 06/04/24 03:09 PG Care Time/CCT Total # of Minutes Spent Total Time Spent with Patient: Total time spent is greater than 50% in coordination of care (as documented) at patient's floor/unit and/or counseling patient: Coding Level of Care Code 90844 SUB INP/OBS CARE 2/35MIN Diagnoses Acute hypokalemia E87.6 Elevated troponin R79.89 DEONNA (acute kidney injury) N17.9
--- NOTE | 2024-06-04 22:52 | Electrocardiogram Report ---
Test Reason : Blood Pressure : */* mmHG Vent. Rate : 84 BPM Atrial Rate : * BPM P-R Int : * ms QRS Dur : 98 ms QT Int : 338 ms P-R-T Axes : * 60 188 degrees QTcB Int : 399 ms Poor data quality, interpretation may be adversely affected Atrial fibrillation Abnormal ECG When compared with ECG of 19-May-2024 13:50, Inverted T waves have replaced nonspecific T wave abnormality in Anterolateral leads Confirmed by Mckay Elliott ([id number]) on 06/04/2024 10:52:04 PM Referred By: REFERRED SELF Confirmed By: Mckay Elliott
[2024-06-05 07:18] LABS: Hematocrit (blood only) 28.9 % (42.0-52.0); Hemoglobin 8.8 g/dl (14.0-18.0); Mean Corpuscular Hemoglobin 26.3 pg (25.0-34.0); Mean Corpuscular Hgb Conc 30.4 g/dL (32.0-36.0); Mean Corpuscular Volume 86.5 fL (80.0-100.0); Mean Platelet Volume 9.7 fL (9.4-12.4); Platelet Count 147 K/uL (130-400); RDW Coefficient of Variation 19.5 % (11.5-14.5); Red Blood Count 3.34 M/uL (4.70-6.10); White Blood Count 8.02 K/ul (4.8-10.8)
[2024-06-05 07:28] LABS: BUN Creatinine Ratio 32.4 (10-20); Calcium 8.9 mg/dl (8.6-10.3); Creatinine Clr Calc Pharmacy 24.6 ml/min; Potassium 3.4 mmol/L (3.5-5.1)
[2024-06-05] MEDS: POTASSIUM CHLORIDE CRTAB 20 MEQ TABCR PO STA (09:35)
--- NOTE | 2024-06-05 14:45 | Hospitalist Progress Note ---
Date of Service June 05, 2024 Assessment & Plan (1) Acute hypokalemia: (2) Elevated troponin: (3) DEONNA (acute kidney injury): Plan 84-year-old male PMHx A-fib with RVR on Xarelto, CHF, RACHELE, secondary hyperparathyroidism, RCC s/p L nephrectomy, CKD, HTN, HLD, and recent hospital admission 05/14/2024 until 05/19/2024 for hemorrhagic shock from GI bleed who is presenting due to referral from PCP for low potassium levels on outpatient labs. ED evaluation reveals no leukocytosis, H&H 10/31.5, potassium 2.4, chloride 89, CO2 35, AG 15, creatinine 2.99, BUN 85, ratio 28.4, magnesium 2.4, troponin 48.3, and BNP 748; CXR with stable prominent pulmonary vascularity suggestive of congestion; EKG A-fib at 84 bpm. Provided with 1L NSS, 40 mEq KCl p.o., and 10 mEq IV in ED. 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 Previously on potassium supplementation as outpatient, but was since discontinued (patient states this is discontinued on 05/28/2024). Patient with history of gastric bypass, metolazone and torsemide use, and pantoprazole use. Suspect that combination of current medications and recent discontinuation of potassium supplementation resulted in patient's hypokalemia. - K 2.4; Mg 2.4 impression -Potassium repleted - HOLD pantoprazole, metolazone and torsemide at admission- consider restarting once potassium levels are more stable - Monitor PCU given comorbidities + to monitor cardiac Potassium this morning 06/04 was 3.4. Replete further with 40 mEq p.o. Continue to hold diuretics. #Elevated troponin/Afib/HFrEF/HTN History of A-fib and HFrEF; on home regimen Xarelto, metoprolol, torsemide, metolazone. Troponin elevated on arrival, no chest pain. - EKG on admission A-fib, rate 84 bpm; without ischemic changes - Troponin 48.3, repeat 40.7; BNP 748 - Elevated troponin related to CKD and demand ischemia - Echo 04/28/2024 with EF 40 to 45% - Held diuretics at admission given hypokalemia will consider restarting following stable K levels #DEONNA/CKD/History RCC s/p L nephrectomy H/o CKD stage IV; Slight increase in Cr from patient's baseline. - Cr 2.99, baseline per nephrology visit 04/23 appears to be 3-3.2; Creatinine improved to 2.5 - Given 1L IVF total; caution with fluid resuscitation given prior EF. No more IV fluids to be given - Post void bladder scan pending; bladder scan prn #RACHELE- History of RACHELE, on ferrous sulfate outpatient. No signs of bleeding; H&H stable on admission #FIFI- 3L at night Dispo: Admit, PCU VTE prophylaxis: SCDs This document was dictated utilizing [employer]. Please excuse any grammatical errors that may be secondary to use of this software. Admission and Anticipated Discharge Date Admission Date: June 03, 2024 Subjective Patient feels well. Denies chest pain or shortness of breath Review of Systems Review of Systems: All systems reviewed & are unremarkable except as noted in Subjective Physical Exam Physical Exam: General: Awake, conversant Heart: S1, S2/regular rate and rhythm, no murmur rubs or gallops Lungs: Clear to auscultation bilaterally. Normal effort Abdomen: Soft/nontender/nondistended. No hepatosplenomegaly Extremities: No clubbing/cyanosis. Trace bilateral edema Behavior: Appropriate, cooperative Results & Data Results & Data Vital Signs (Past 12 Hours) Vital Signs Temp Pulse Pulse Resp BP Pulse Ox O2 Del Method 06/05/24 13:52 94 H 06/05/24 11:02 36.7 C 103 H 18 91/63 L 97 Room Air 06/05/24 09:05 Room Air 06/05/24 08:53 86 06/05/24 07:47 36.7 C 112 H 20 94/65 L 98 Nasal Cannula 06/05/24 03:23 36.9 C 102 H 25 H 97/55 L 98 Room Air O2 Flow Rate 06/05/24 13:52 06/05/24 11:02 06/05/24 09:05 06/05/24 08:53 06/05/24 07:47 3.0 06/05/24 03:23 PG Care Time/CCT Total # of Minutes Spent Total Time Spent with Patient: Total time spent is greater than 50% in coordination of care (as documented) at patient's floor/unit and/or counseling patient: Coding Level of Care Code 00437 SUB INP/OBS CARE 2/35MIN Diagnoses Acute hypokalemia E87.6 Elevated troponin R79.89 DEONNA (acute kidney injury) N17.9
[2024-06-06 06:49] LABS: Creatinine Clr Calc Pharmacy 26.1 ml/min; Potassium 3.4 mmol/L (3.5-5.1)
[2024-06-06] MEDS: POTASSIUM CHLORIDE CRTAB 20 MEQ TABCR PO STA (08:29)
[2024-06-06] MEDS: TORSEMIDE 100 MG TAB PO SCH (08:39)
[2024-06-06] MEDS: POTASSIUM CHLORIDE CRTAB 20 MEQ TABCR PO SCH (10:27)
--- NOTE | 2024-06-06 14:08 | Hospitalist Progress Note ---
Date of Service June 06, 2024 Assessment & Plan (1) Acute hypokalemia: (2) Elevated troponin: (3) DEONNA (acute kidney injury): Plan 84-year-old male PMHx A-fib with RVR on Xarelto, CHF, RACHELE, secondary hyperparathyroidism, RCC s/p L nephrectomy, CKD, HTN, HLD, and recent hospital admission 05/14/2024 until 05/19/2024 for hemorrhagic shock from GI bleed who is presenting due to referral from PCP for low potassium levels on outpatient labs. ED evaluation reveals no leukocytosis, H&H 10/31.5, potassium 2.4, chloride 89, CO2 35, AG 15, creatinine 2.99, BUN 85, ratio 28.4, magnesium 2.4, troponin 48.3, and BNP 748; CXR with stable prominent pulmonary vascularity suggestive of congestion; EKG A-fib at 84 bpm. Provided with 1L NSS, 40 mEq KCl p.o., and 10 mEq IV in ED. 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 Previously on potassium supplementation as outpatient, but was since discontinued (patient states this is discontinued on 05/28/2024). Patient with history of gastric bypass, metolazone and torsemide use, and pantoprazole use. Suspect that combination of current medications and recent discontinuation of potassium supplementation resulted in patient's hypokalemia. - K 2.4; Mg 2.4 on admission -Potassium repleted - HOLD pantoprazole, metolazone and torsemide at admission- consider restarting once potassium levels are more stable - Monitor PCU given comorbidities + to monitor cardiac Potassium this morning 06/06 still 3.4. Replete further with 60 mEq p.o. Continue to hold diuretics as blood pressure on the low side #Elevated troponin/Afib/HFrEF/HTN History of A-fib and HFrEF; on home regimen Xarelto, metoprolol, torsemide, metolazone. Troponin elevated on arrival, no chest pain. - EKG on admission A-fib, rate 84 bpm; without ischemic changes - Troponin 48.3, repeat 40.7; BNP 748 - Elevated troponin related to CKD and demand ischemia - Echo 04/28/2024 with EF 40 to 45% - Held diuretics at admission given hypokalemia will consider restarting following stable K levels Diuretics held today 06/06 due to low blood pressure. May need to start soon as the patient is starting to develop leg swelling. #DEONNA/CKD/History RCC s/p L nephrectomy H/o CKD stage IV; Slight increase in Cr from patient's baseline. - Cr 2.99, baseline per nephrology visit 04/23 appears to be 3-3.2; Creatinine improved to 2.3 - Given 1L IVF total; caution with fluid resuscitation given prior EF. No more IV fluids to be given - Post void bladder scan pending; bladder scan prn #RACHELE- History of RACHELE, on ferrous sulfate outpatient. No signs of bleeding; H&H stable on admission #FIFI- 3L at night Dispo: Admit, PCU VTE prophylaxis: SCDs This document was dictated utilizing [employer]. Please excuse any grammatical errors that may be secondary to use of this software. Admission and Anticipated Discharge Date Admission Date: June 03, 2024 Subjective Patient was seen and examined at 11:35 AM. Denies chest pain or shortness of breath. Overall feels well. Review of Systems Review of Systems: All systems reviewed & are unremarkable except as noted in Subjective Physical Exam Physical Exam: General: Awake, conversant Heart: S1, S2/regular rate and rhythm, no murmur rubs or gallops Lungs: Clear to auscultation bilaterally. Normal effort Abdomen: Soft/nontender/nondistended. No hepatosplenomegaly Extremities: No clubbing/cyanosis. 1+ pitting bilateral edema Behavior: Appropriate, cooperative Results & Data Results & Data Vital Signs (Past 12 Hours) Vital Signs Temp Pulse Pulse Resp BP Pulse Ox O2 Del Method 06/06/24 10:53 36.6 C 82 20 106/60 95 Room Air 06/06/24 10:34 135 H 06/06/24 08:00 Room Air 06/06/24 07:38 36.9 C 124 H 20 99/70 L 94 Room Air 06/06/24 03:53 36.6 C 104 H 20 115/73 99 CPAP 06/06/24 03:40 68 18 98 O2 Flow Rate 06/06/24 10:53 06/06/24 10:34 06/06/24 08:00 06/06/24 07:38 06/06/24 03:53 06/06/24 03:40 3 Laboratory Results Abnormal lab results 06/06/24 Range/Units 06:00 Potassium 3.4 L (3.5-5.1) mmol/L Carbon Dioxide 33 H (21-32) mmol/L BUN 74 H (6-23) mg/dl Creatinine 2.39 H (0.6-1.4) mg/dl BUN/Creatinine Ratio 31.0 H (10-20) Glucose 106 H (70-99(Fasting)) mg/dl PG Care Time/CCT Total # of Minutes Spent Total Time Spent with Patient: Total time spent is greater than 50% in coordination of care (as documented) at patient's floor/unit and/or counseling patient: Coding Level of Care Code 03622 SUB INP/OBS CARE 2/35MIN Diagnoses Acute hypokalemia E87.6 Elevated troponin R79.89 DEONNA (acute kidney injury) N17.9
[2024-06-06] MEDS: traMADol HCL 50 MG TABLET PO PRN (20:20)
--- NOTE | 2024-06-07 05:39 | Electrocardiogram Report ---
Test Reason : Blood Pressure : */* mmHG Vent. Rate : 74 BPM Atrial Rate : * BPM P-R Int : * ms QRS Dur : 94 ms QT Int : 434 ms P-R-T Axes : * 52 134 degrees QTcB Int : 481 ms Poor data quality, interpretation may be adversely affected Atrial fibrillation with premature ventricular or aberrantly conducted complexes Nonspecific ST abnormality Prolonged QT Abnormal ECG When compared with ECG of 03-Jun-2024 18:39, QT has lengthened Confirmed by Mckay Elliott ([id number]) on 06/07/2024 5:38:51 AM Referred By: REFERRED SELF Confirmed By: Mckay Elliott
--- NOTE | 2024-06-07 05:39 | Electrocardiogram Report ---
Test Reason : Blood Pressure : */* mmHG Vent. Rate : 112 BPM Atrial Rate : * BPM P-R Int : * ms QRS Dur : 84 ms QT Int : 388 ms P-R-T Axes : * 61 145 degrees QTcB Int : 529 ms Atrial fibrillation with rapid ventricular response with premature ventricular or aberrantly conducte d complexes Prolonged QT Abnormal ECG When compared with ECG of 04-Jun-2024 03:02, Vent. rate has increased by 38 bpm Confirmed by Mckay Elliott ([id number]) on 06/07/2024 5:39:29 AM Referred By: REFERRED SELF Confirmed By: Mckay Elliott
[2024-06-07 07:03] LABS: Calcium 8.9 mg/dl (8.6-10.3); Creatinine Clr Calc Pharmacy 27.1 ml/min; Potassium 3.7 mmol/L (3.5-5.1)
[2024-06-07] MEDS: TORSEMIDE 10 MG TAB PO SCH (08:42)
[2024-06-07] MEDS: POTASSIUM CHLORIDE CRTAB 20 MEQ TABCR PO SCH (08:47)
--- NOTE | 2024-06-07 13:10 | Hospitalist Progress Note ---
Date of Service June 07, 2024 Assessment & Plan (1) Acute hypokalemia: (2) Elevated troponin: (3) DEONNA (acute kidney injury): Plan 84-year-old male PMHx A-fib with RVR on Xarelto, CHF, RACHELE, secondary hyperparathyroidism, RCC s/p L nephrectomy, CKD, HTN, HLD, and recent hospital admission 05/14/2024 until 05/19/2024 for hemorrhagic shock from GI bleed who is presenting due to referral from PCP for low potassium levels on outpatient labs. ED evaluation reveals no leukocytosis, H&H 10/31.5, potassium 2.4, chloride 89, CO2 35, AG 15, creatinine 2.99, BUN 85, ratio 28.4, magnesium 2.4, troponin 48.3, and BNP 748; CXR with stable prominent pulmonary vascularity suggestive of congestion; EKG A-fib at 84 bpm. Provided with 1L NSS, 40 mEq KCl p.o., and 10 mEq IV in ED. 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 Previously on potassium supplementation as outpatient, but was since discontinued (patient states this is discontinued on 05/28/2024). Patient with history of gastric bypass, metolazone and torsemide use, and pantoprazole use. Suspect that combination of current medications and recent discontinuation of potassium supplementation resulted in patient's hypokalemia. - K 2.4; Mg 2.4 on admission -Potassium repleted - HOLD pantoprazole, metolazone and torsemide at admission- consider restarting once potassium levels are more stable - Monitor PCU given comorbidities + to monitor cardiac Potassium this morning 06/07 is 3.7. Resume diuretics at lower than home dose with more liberal holding parameters since the patient's leg swelling is getting worse Monitor potassium levels while on diuretics #Elevated troponin/Afib/HFrEF/HTN History of A-fib and HFrEF; on home regimen Xarelto, metoprolol, torsemide, metolazone. Troponin elevated on arrival, no chest pain. - EKG on admission A-fib, rate 84 bpm; without ischemic changes - Troponin 48.3, repeat 40.7; BNP 748 - Elevated troponin related to CKD and demand ischemia - Echo 04/28/2024 with EF 40 to 45% - Held diuretics at admission given hypokalemia. Torsemide resumed at a lower than home dose because of borderline low blood pressure and hypokalemia Torsemide dose may be increased as tolerated Holding parameters have been liberalized for metoprolol and torsemide Metolazone held Noted that leg swelling is increasing while the diuretics were held in the last few days due to hypokalemia and soft blood pressure readings #DEONNA/CKD/History RCC s/p L nephrectomy H/o CKD stage IV; Slight increase in Cr from patient's baseline. - Cr 2.99, baseline per nephrology visit 04/23 appears to be 3-3.2; Creatinine improved to 2.3 - Given 1L IVF total; caution with fluid resuscitation given prior EF. No more IV fluids to be given - Post void bladder scan pending; bladder scan prn #RACHELE- History of RACHELE, on ferrous sulfate outpatient. No signs of bleeding; H&H stable on admission #FIFI- 3L at night Full code VTE prophylaxis: SCDs This document was dictated utilizing [employer]. Please excuse any grammatical errors that may be secondary to use of this software. Admission and Anticipated Discharge Date Admission Date: June 03, 2024 Subjective Patient was seen and examined at 11:25 AM. He denies chest pain or shortness of breath. He denies feeling dizzy or lightheaded. Review of Systems Review of Systems: All systems reviewed & are unremarkable except as noted in Subjective Physical Exam Physical Exam: General: Awake, conversant Heart: S1, S2/regular rate and rhythm, no murmur rubs or gallops Lungs: Clear to auscultation bilaterally. Normal effort Abdomen: Soft/nontender/nondistended. No hepatosplenomegaly Extremities: No clubbing/cyanosis. 1+ pitting bilateral edema Behavior: Appropriate, cooperative Results & Data Results & Data Vital Signs (Past 12 Hours) Vital Signs Temp Pulse Pulse Resp BP Pulse Ox O2 Del Method 06/07/24 10:58 36.5 C 95 H 20 93/62 L 98 Room Air 06/07/24 09:00 Room Air 06/07/24 08:00 83 06/07/24 07:58 37.1 C 87 19 90/64 L 97 Room Air 06/07/24 03:47 36.7 C 76 18 104/64 98 CPAP 06/07/24 03:30 19 97 O2 Flow Rate 06/07/24 10:58 06/07/24 09:00 06/07/24 08:00 06/07/24 07:58 06/07/24 03:47 06/07/24 03:30 3 Laboratory Results Abnormal lab results 06/07/24 Range/Units 05:50 Carbon Dioxide 34 H (21-32) mmol/L BUN 67 H (6-23) mg/dl Creatinine 2.31 H (0.6-1.4) mg/dl BUN/Creatinine Ratio 29.0 H (10-20) PG Care Time/CCT Total # of Minutes Spent Total Time Spent with Patient: Total time spent is greater than 50% in coordination of care (as documented) at patient's floor/unit and/or counseling patient: Coding Level of Care Code 87807 SUB INP/OBS CARE 2/35MIN Diagnoses Acute hypokalemia E87.6 Elevated troponin R79.89 DEONNA (acute kidney injury) N17.9
[2024-06-08 06:46] LABS: BUN Creatinine Ratio 26.7 (10-20); Creatinine Clr Calc Pharmacy 27.1 ml/min; Potassium 3.8 mmol/L (3.5-5.1)
--- NOTE | 2024-06-08 07:37 | Hospitalist Progress Note ---
Date of Service June 08, 2024 Assessment & Plan (1) Acute hypokalemia: (2) Elevated troponin: (3) DEONNA (acute kidney injury): Plan 84-year-old male PMHx A-fib with RVR on Xarelto, CHF, RACHELE, secondary hyperparathyroidism, RCC s/p L nephrectomy, CKD, HTN, HLD, and recent hospital admission 05/14/2024 until 05/19/2024 for hemorrhagic shock from GI bleed who is presenting due to referral from PCP for low potassium levels on outpatient labs. ED evaluation reveals no leukocytosis, H&H 10/31.5, potassium 2.4, chloride 89, CO2 35, AG 15, creatinine 2.99, BUN 85, ratio 28.4, magnesium 2.4, troponin 48.3, and BNP 748; CXR with stable prominent pulmonary vascularity suggestive of congestion; EKG A-fib at 84 bpm. Provided with 1L NSS, 40 mEq KCl p.o., and 10 mEq IV in ED. #Hypokalemia Referred by patient provider for severe hypokalemia, potassium 2.4 mag 2.4 on admission. Did have some numbness/tingling and cramping time of admission. Has been on metolazone/torsemide but had his potassium supplementation discontinued 05/28/2024. Additionally with history of gastric bypass Potassium normalized, continue replete as needed Metolazone/torsemide were held on admission however patient has subsequently normalization of his potassium levels and shows evidence of increasing edema. Diuretics resumed # Acute on chronic heart failure with reduced ejection fraction, A-fib - History of A-fib and HFrEF; on home regimen Xarelto, metoprolol, torsemide, metolazone. Troponin elevated on arrival, no chest pain. - EKG on admission A-fib, rate 84 bpm; without ischemic changes - Troponin 48.3, repeat 40.7; BNP 748. Suspect demand ischemia versus clearance due to CKD - Echo 04/28/2024 with EF 40 to 45% - Held diuretics at admission given hypokalemia. Torsemide resumed at a lower than home dose because of borderline low blood pressure and hypokalemia Holding parameters have been liberalized for metoprolol and torsemide. Metolazone held Slightly increased leg swelling past few days while diuretics have been held. Total output last 24 hours is only 200-500 cc, and is actually net +564 cc. Home torsemide dose is 100 mg p.o. twice daily. Inadequate output on torsemide 10 mg, this has been increased to 50 mg today. Continue to follow for renal stability and with strict ins/outs Dry weight appears to be around 95-97 kg. 99.1 kg on 06/08 A-fib with some increased rate morning of 06/08. Is still clinically volume overloaded. Several dose of metoprolol held for borderline hypotension for she is also on midodrine. Metoprolol has been dose reduced temporarily from 100 to 50 mg to minimize hypotensive effect, slightly liberalized metolazone parameters given underlying heart failure volume overload and hopefully blood pressure will improve with improved volume status. Does have lower extremity edema and JVD 06/08 #DEONNA/CKD/History RCC s/p L nephrectomy H/o CKD stage IV; Slight increase in Cr from patient's baseline. - Cr 2.99, baseline per nephrology visit 04/23 appears to be 3-3.2; - Cr 2.3 on 06/08 - Given 1L IVF total; caution with fluid resuscitation given prior EF. No more IV fluids to be given Chronic stable issues RACHELE: History of this, on iron supplements. No signs of bleeding. Follow H&H FIFI: Continue nocturnal oxygen, not on PPV Full code VTE prophylaxis: SCDs Admission and Anticipated Discharge Date Admission Date: June 03, 2024 Subjective Seen the bedside. He reports his legs are much more swollen than normal. He reports he does feel short of breath with exertion but does not really exerted himself recently since being in the hospital. Endorses fatigue. Denies chest pain chest pressure lightheadedness dizziness. Denies orthopnea. No fevers chills or sweats. Physical Exam Physical Exam: General: A&Ox3. NAD. Cooperative. HEENT: Atraumatic, normocephalic. Vision and hearing grossly intact Pulm: Diminished, bibasilar crackles. Symmetrical chest rise. No increase in work of breathing. No respiratory distress. Cardiac:irir, slightly tachycardic on assessment.. Radial pulses intact and sy mmetrical. JVD is present with HJR Extremities: Bilateral 23+ pitting edema of the lower extremities Results & Data Results & Data Vital Signs (Past 12 Hours) Vital Signs Temp Pulse Pulse Resp BP Pulse Ox O2 Del Method 03/12/25 03:50 77 18 103/71 100 CPAP 06/08/24 03:16 78 24 100 06/07/24 23:59 90 06/07/24 23:41 36.4 C L 86 18 94/56 L 99 CPAP 06/07/24 22:30 88 24 99 06/07/24 19:56 Room Air 06/07/24 19:47 36.5 C 92 H 18 90/57 L 95 Room Air O2 Flow Rate 06/08/24 03:50 06/08/24 03:16 3 06/07/24 23:59 06/07/24 23:41 06/07/24 22:30 3 06/07/24 19:56 06/07/24 19:47 PG Care Time/CCT Total # of Minutes Spent Total Time Spent with Patient: Total time spent is greater than 50% in coordination of care (as documented) at patient's floor/unit and/or counseling patient: Coding Level of Care Code 86932 SUB INP/OBS CARE 3/50MIN Diagnoses Acute hypokalemia E87.6 Elevated troponin R79.89 DEONNA (acute kidney injury) N17.9
[2024-06-08] MEDS: TORSEMIDE 10 MG TAB PO SCH ×2 (09:56→10:16)
--- NOTE | 2024-06-08 12:44 | XRay Report ---
XR chest 1V portable CLINICAL HISTORY: pulmonary edema COMPARISON STUDY: 05/14/2024 FINDINGS: Single view chest unchanged. Chronic cardiomegaly and pulmonary vascular congestion are not ed. Chronic blunting of the left costophrenic angle. There is evidence of prior cardiac surgery with a prosthetic valve replacement. IMPRESSION: Stable exam; no acute process identified. ACT 112: Negative or not required by law. Electronically signed by: Anjana Lee M.D. 06/08/2024 12:43 PM
--- NOTE | 2024-06-08 13:01 | Communication Note ---
Date of Service: June 08, 2024 Code purple at approximately 1230. Patient feeling poorly, poorly responsive, and confused moving from chair to bed. Heart rate 901 10, BP 180 systolic. At time of provider assessment patient reports that he feels off and tired and a little bit short of breath but has no chest pain. 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 Vision and hearing are intact. Cranial nerves are intact without asymmetry and cheek puff, lip brace are intact without deficit. Does have bibasilar crackles. He is saturating 99%. Had received midodrine slightly prior, and previous to that received his 25 mg torsemide earlier this morning. Metoprolol had been held for BP parameters. Per report may have had an episode of VT. EKG obtained at bedside, A-fib without acute ischemic changes. Than strip from telemetry reviewed. Some artifact but does not appear consistent with VT, last EF on echo was 40-44% 03/2024. Patient appears hemodynamically stable although slightly short of breath and volume overloaded on admission. Is having increased urine output with his midodrine, nursing will continue to follow and if is not having at least 400-600 cc of output will add on a dose of IV Lasix. X-ray at bedside without overt edema but some pulmonary vascular congestion and left-sided effusion compared to prior vascular congestion blood pressure is actually improving with his diuresis. Dose reduced metoprolol was resumed given his A-fib with intermittent control and multiple held doses. BMP and magnesium level are pending. Denies acute ischemic symptoms. On second reassessment pt improving, joking at bedside answers questions appropriately. NAD.
[2024-06-08] MEDS: METOPROLOL TARTRATE 25 MG TAB PO ONE (13:02)
[2024-06-08 13:03] LABS: HCO3 VBG 26 mmol/L; Oxygen Saturation VBG 78.3 %; PCO2 VBG 42 mmHg (38-50); PO2 VBG 46 mmHg
[2024-06-08 13:19] LABS: BUN Creatinine Ratio 23.7 (10-20); Calcium 9.1 mg/dl (8.6-10.3); Creatinine Clr Calc Pharmacy 24.8 ml/min; Potassium 3.8 mmol/L (3.5-5.1)
[2024-06-08 13:23] LABS: Troponin I High Sensitivity 11.2 pg/ml (0-20)
[2024-06-08] MEDS: METOPROLOL SUCC 50MG EXT REL TAB PO SCH (20:49)
[2024-06-08] MEDS: ACETAMINOPHEN 325 MG TAB PO PRN (22:14)
[2024-06-09 06:41] LABS: Basophils % (auto) 1.3 %; Eosinophils # (auto) 0.51 K/uL (0.00-0.50); Eosinophils % (auto) 6.6 %; Hemoglobin 9.3 g/dl (14.0-18.0); Immature Granulocytes # (auto) 0.03 K/uL (0.01-0.20); Immature Granulocytes % (auto) 0.4 %; Lymphocytes # (auto) 1.16 K/uL (1.20-3.40); Lymphocytes % (auto) 14.9 %; Mean Corpuscular Hemoglobin 26.6 pg (25.0-34.0); Mean Corpuscular Volume 88.8 fL (80.0-100.0); Mean Platelet Volume 9.4 fL (9.4-12.4); Monocytes # (auto) 0.81 K/uL (0.11-0.59); Monocytes % (auto) 10.4 %; Neutrophils # (auto) 5.16 K/uL (1.40-6.50); Neutrophils % (auto) 66.4 %; Platelet Count 169 K/uL (130-400); RDW Coefficient of Variation 19.1 % (11.5-14.5); RDW Standard Deviation 62.1 fL (36.4-46.3); Red Blood Count 3.49 M/uL (4.70-6.10); White Blood Count 7.77 K/ul (4.8-10.8)
[2024-06-09 06:42] LABS: BUN Creatinine Ratio 23.8 (10-20); Calcium 9.1 mg/dl (8.6-10.3); Creatinine Clr Calc Pharmacy 25.9 ml/min; Potassium 3.6 mmol/L (3.5-5.1)
--- NOTE | 2024-06-09 07:43 | Hospitalist Progress Note ---
Date of Service June 09, 2024 Assessment & Plan (1) Acute hypokalemia: (2) Elevated troponin: (3) DEONNA (acute kidney injury): Plan 84-year-old male PMHx A-fib with RVR on Xarelto, CHF, RACHELE, secondary hyperparathyroidism, RCC s/p L nephrectomy, CKD, HTN, HLD, and recent hospital admission 05/14/2024 until 05/19/2024 for hemorrhagic shock from GI bleed who is presenting due to referral from PCP for low potassium levels on outpatient labs. ED evaluation reveals no leukocytosis, H&H 10/31.5, potassium 2.4, chloride 89, CO2 35, AG 15, creatinine 2.99, BUN 85, ratio 28.4, magnesium 2.4, troponin 48.3, and BNP 748; CXR with stable prominent pulmonary vascularity suggestive of congestion; EKG A-fib at 84 bpm. Provided with 1L NSS, 40 mEq KCl p.o., and 10 mEq IV in ED. #Hypokalemia Referred by patient provider for severe hypokalemia, potassium 2.4 mag 2.4 on admission. Did have some numbness/tingling and cramping time of admission. Has been on metolazone/torsemide but had his potassium supplementation discontinued 05/28/2024. Additionally with history of gastric bypass Potassium normalized, continue replete as needed Metolazone/torsemide were held on admission however patient has subsequently normalization of his potassium levels and shows evidence of increasing edema. Diuretics resumed # Acute on chronic heart failure with reduced ejection fraction, A-fib - History of A-fib and HFrEF; on home regimen Xarelto, metoprolol, torsemide, metolazone. Troponin elevated on arrival, no chest pain. - EKG on admission A-fib, rate 84 bpm; without ischemic changes - Troponin 48.3, repeat 40.7; BNP 748. Suspect demand ischemia versus clearance due to CKD - Echo 04/28/2024 with EF 40 to 45% - Held diuretics at admission given hypokalemia. Torsemide resumed at a lower than home dose because of borderline low blood pressure and hypokalemia Holding parameters have been liberalized for metoprolol and torsemide. Metolazone held Slightly increased leg swelling past few days while diuretics have been held. Total output on 10mg torsemide is only 200-500 cc, andwas net +564 cc. Home torsemide dose is 100 mg p.o. twice daily. Inadequate output on torsemide 10 mg, this was increased to 25 mg twice daily dosing. Total output 1.3 L with a net -629. Cr downtrending. Cautious adjustments given history of nephrectomy and intermittent hypotension. Dose titrated to 40mg BID. Remains volume overloaded and requires ongoing diuresis and medication adjustments as inpatient #DEONNA/CKD/History RCC s/p L nephrectomy H/o CKD stage IV; Slight increase in Cr from patient's baseline. - Cr 2.99, baseline per nephrology visit 04/23 appears to be 3-3.2; - Cr 2.3 on 06/08, downtrending with diuresis. Trend daily - Given 1L IVF total; caution with fluid resuscitation given prior EF. No more IV fluids to be given Chronic stable issues RACHELE: History of this, on iron supplements. No signs of bleeding. Follow H&H FIFI: Continue nocturnal oxygen, not on PPV Full code VTE prophylaxis: SCDs Admission and Anticipated Discharge Date Admission Date: June 03, 2024 Subjective Seen the bedside this morning. Thinks he feels a little bit better overall than yesterday. Blood pressure was normal in the morning. No chest pain chest pressure. Continues to be a little short of breath worsened with exertion but notes he has not exertion himself very much. Feels energy is better than yesterday. Feels he is voiding normally. Questions at bedside assessment Physical Exam Physical Exam: General: A&Ox3. NAD. Cooperative. HEENT: Atraumatic, normocephalic. Vision and hearing grossly intact Pulm: Diminished, bibasilar crackles persist. Symmetrical chest rise. No increase in work of breathing. No respiratory distress. Cardiac:irir, slightly tachycardic on assessment.. Radial pulses intact and symmetrical. Extremities: Bilateral 23+ pitting edema of the lower extremities Results & Data Results & Data Vital Signs (Past 12 Hours) Vital Signs Temp Pulse Pulse Resp BP Pulse Ox O2 Del Method 06/09/24 03:26 36.4 C L 99 H 16 106/64 95 Room Air 06/08/24 23:30 36.4 C L 94 H 18 123/88 100 CPAP 06/08/24 23:05 98 H 06/08/24 22:18 82 24 99 06/08/24 21:11 Room Air O2 Flow Rate 06/09/24 03:26 06/08/24 23:30 06/08/24 23:05 06/08/24 22:18 3 06/08/24 21:11 PG Care Time/CCT Total # of Minutes Spent Total Time Spent with Patient: Total time spent is greater than 50% in coordination of care (as documented) at patient's floor/unit and/or counseling patient: Coding Level of Care Code 00550 SUB INP/OBS CARE 3/50MIN Diagnoses Acute hypokalemia E87.6 Elevated troponin R79.89 DEONNA (acute kidney injury) N17.9
[2024-06-09] MEDS: POTASSIUM CHLORIDE CRTAB 20 MEQ TABCR PO SCH (08:47)
--- NOTE | 2024-06-09 15:32 | Nephrology Consultation ---
Date of Consultation June 09, 2024 Assessment & Plan (1) Hypotension: Plan 84-year-old gentleman with stage III B/4 CKD, b/l cr around 2.5 mg/dl with solitary right kidney status post left nephrectomy in 2011 for renal cell carcinoma and repeated history of acute kidney injury. Prior urinalysis unremarkable. Renal imaging showed otherwise normal right kidney. Admitted to the hospital with critical hypokalemia, potassium was 2.3 in the setting of outpatient regimen of Bumex and metolazone as needed. Diuretics has been on hold however yesterday he was noted to be volume overloaded with an episode of unresponsiveness and shortness of breath. He was started on torsemide 40 mg twice a day with decent urine output. Kidney function has been staying relatively stable, creatinine has been around 2.2-2.5 over last few days, close to baseline. Potassium normalized with potassium supplement. Seems clinically volume overloaded although not far from his previous dry weight. --Continue on torsemide 40 mg twice a day, accurate intake and output to guide diuretic regimen --check phosphorus, iron study with am lab, continue oral iron, if iron store adequate will consider Epogen --left arm precaution for possible vascular access in future if kidney function worsen and he considers [employer], previously was not interested but did not make final decision. --low salt diet, keep leg elevated --continue current dose of KCL supplement Thank you for allowing me to participate in your patient's care. It was a pleasure to see Ed. History of Present Illness Reason for Consultation: Hypokalemia, DEONNA, stage 4 CKD Attending Physician: Primitivo Pollard MD History of Present Illness Mr. Zander Antoine is a 84-year-old male with past medical history significant for stage IIIb/IV CKD, solitary right kidney with left nephrectomy for history of renal cell carcinoma, CHF, A-fib admitted to the hospital with outpatient labs showing critical hypokalemia and DEONNA. Nephrology consult requested for diuretic management with history of advanced CKD and electrolyte abnormality. EMR records were reviewed in detail during patient's visit. Ed was admitted to the hospital on 06/03/2024 after outpatient labs showing critical hypokalemia with potassium 2.3. At home has been on Bumex and as needed metolazone which has been on hold since admission. Potassium slowly improved with potassium supplement 20 meq TID. On admission cr was 3.0 mg/dl and kidney function has been staying relatively stable and creatinine was staying around 2.2-2.5 with baseline creatinine around 2.5 mg/dl with repeated episodes of acute kidney injury and multiple hospitalization over last few months. Prior urinalysis was negative for proteinuria hematuria or pyuria. CT abdomen pelvis showed otherwise normal right kidney with history of left nephrectomy before. He had a code purple yesterday when he became unresponsive and noted to be volume overloaded. Chest x-ray showed pulmonary vascular congestion and cardiomegaly and and restarted back on torsemide 40 mg twice a day. His estimated dry weight has been 100 kg, on admission was 95 kg which has been slowly increasing and this morning he was 100.2 kg. Hemoglobin has been low but stable, has been on oral iron. Last hospitalization was on 05/15/2024 with acute blood loss anemia requiring multiple blood transfusion. Colonoscopy showing colonic polyp which was removed. Has complex past medical history including stage IIIb/IV CKD, baseline creatinine has been around 2.5 with repeated history of acute kidney injury. History of left nephrectomy in 2011 for left renal cell carcinoma. History of hypertension, dyslipidemia and, aortic valve replacement in 2006 and mitral valve clipping in March 2024. Also history of right breast mass previously treated with tamoxifen therapy. Has history of A-fib with RVR, previously was on Xarelto which was stopped after recent GI bleeding. Has history of HF with diastolic dysfunction. History of gastric bypass surgery in 2012 for obesity, done at [facility]. Past medical history also significant for g out, obstructive sleep apnea, history of kidney stone, none recently. Last cardiac cath in December 2020 showed no significant coronary artery disease. He reports overall feeling well this afternoon, denies any shortness of breath or chest pain. Has bilateral lower extremity edema but feels this is close to his baseline. Reports decent urine output. Allergies Allergy/AdvReac Type Severity Reaction Status Date / Time iron [From Venofer] AdvReac Mild Vomiting Verified 06/03/24 13:04 Iodinated Contrast Media AdvReac Unknown PT ONLY Verified 06/03/24 13:04 [Iodinated Contrast- Oral HAS 1 and IV Dye] KIDNEY, CONTRAINDICATED. Home Medications Medication Instructions Recorded Confirmed Type amoxicillin 500 mg tablet 2,000 mg PO DIRECTED PRN 1 HOUR 11/16/18 06/03/24 History PRIOR TO DENTAL PROCEDURES cholecalciferol (vitamin D3) 50 50 mcg PO DAILY 07/10/22 06/03/24 History mcg (2,000 unit) capsule (Vitamin D3) cyanocobalamin (vitamin B-12) 1,000 mcg IM Q90D #30 mL 09/23/22 06/03/24 Rx 1,000 mcg/mL injection solution metolazone 5 mg tablet 5 mg PO DAILY PRN weight gain #30 10/23/22 06/03/24 Rx tabs docusate sodium 100 mg capsule 100 mg PO DAILY PRN constipation 02/08/24 06/03/24 Rx #0 caps allopurinol 100 mg tablet 50 mg PO QAM 03/03/24 06/03/24 History calcitriol 0.25 mcg capsule 0.5 mcg (2 x 0.25 mcg) PO QAM #180 04/01/24 06/03/24 Rx caps tramadol 50 mg tablet 50 mg PO BID PRN Pain #60 tabs 04/01/24 06/03/24 Rx midodrine 10 mg tablet 10 mg PO TID@0800,1200,1700 #270 04/04/24 06/03/24 Rx tabs aspirin 81 mg chewable tablet 81 mg PO DAILY 05/13/24 06/03/24 History cyclobenzaprine 5 mg tablet 5 mg PO BID PRN muscle 05/13/24 06/03/24 History pain/stiffness metoprolol succinate 100 mg 100 mg PO BID 05/13/24 06/03/24 History tablet,extended release 24 hr (Toprol XL) Portable Oxygen 06/03/24 06/03/24 History ferrous sulfate 324 mg (65 mg 324 mg PO BID 90 days #180 tabs 06/03/24 06/03/24 Rx iron) tablet,delayed release magnesium 200 mg tablet 200 mg PO DAILY #90 tabs 06/03/24 06/03/24 Rx pantoprazole 40 mg tablet,delayed 40 mg PO QAM 90 days #90 tabs 06/03/24 06/03/24 Rx release tamoxifen 20 mg tablet 20 mg PO QAM #90 tabs 06/03/24 06/03/24 Rx torsemide 100 mg tablet 100 mg PO BID 90 days #180 tabs 06/03/24 06/03/24 Rx Patient History Medical History Congestive heart failure Chronic dental pain Hypotension Chronic renal insufficiency, stage IV (severe) Iron deficiency anemia Obstructive sleep apnea BIPAP Diabetes mellitus Aspiration into respiratory tract Acute kidney injury superimposed on CKD Morbid obesity History of anxiety Hx of gout Hx of rotator cuff tear Difficulty with raising arms without extreme pain, currently in PT Hx of osteoarthritis Hx of impacted cerumen History of COVID-19 01/2021 > "mild" cold symptoms, resolved Prediabetes Kidney stones Hx x7 Renal cell adenocarcinoma s/p nephrectomy Chronic kidney disease, stage III (moderate) CKD (chronic kidney disease), stage III Surgical History H/O aortic valve replacement Hx of cardiac catheterization 11/2020 > no stents History of total bilateral knee replacement History of esophagogastroduodenoscopy (EGD) Hx of colonoscopy Hx of tonsillectomy Hx of cystoscopy w/stone basketing History of left nephrectomy History of spinal surgery Aortic valve replaced bioprosthesis, 2006 History of gastric bypass History of cholecystectomy Family History Mother Breast cancer Lung disease Grandmother (Maternal) Breast cancer Aunt Breast cancer Sister Breast cancer Father Myocardial infarction Arthritis Denies family history of Ovarian cancer Prostate cancer Colorectal cancer Social History Smoking Status: Never smoker Second Hand Exposure: No; Do You Dip or Chew Tobacco: No; Hx Alcohol Use: No Hx Substance Use: No Preferred Language: Omani Communication Ability: Effective Visual Impairment: No Limitations Hearing Ability: Normal Human Performance Consultant Required: No Beliefs That Will Affect Care: Spiritual marital status: Current Living Situation: Spouse Current Living Situation Comment: Lives w/ , son lives in basement current occupational status: retired 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[employer] Feels Safe at Home: Yes Childhood Exposure to Second-Hand Smoke: Yes Diet: regular caffeine: Yes Dental Care, Regularly: Yes Physical Activity Frequency: Does not Exercise Physical Activity Frequency Comment: Physical activity limited due to medical conditions Seatbelt Use: always Sunscreen Use: No Do you think of yourself as: straight/heterosexual Gender Identity: Male Assistive Devices: Cane and Walker Physical Exam Constitutional: WD/WN, vitals as above no acute distress Eyes: + anicteric sclerae Neck: normal visual inspection Respiratory: no respiratory distress Auscultation: lungs clear to auscultation bilaterally Cardiovascular: Rate/Rhythm: regular rate and regular rhythm Heart Sounds: normal S1 and normal S2 Extremities: + edema (1+ b/l LE edema) Gastrointestinal (Abdomen): Inspection/Auscultation: abdomen normal to inspection Percussion/Palpation: abdomen soft; abdomen nontender Musculoskeletal: Extremities: extremities normal to inspection Skin: no rashes, warm and dry Neurologic: no focal motor deficits Psychiatric: Orientation: alert and oriented x 3 Affect: euthymic affect Results & Data Vital Signs (Past 12 Hours) Vital Signs Temp Pulse Resp BP Pulse Ox O2 Del Method O2 Flow Rate 06/09/24 11:10 36.3 C L 111 H 16 88/55 L 96 Room Air 06/09/24 09:55 Room Air, Nasal Cannula 2 06/09/24 08:02 36.7 C 92 H 20 99/58 L 100 Nasal Cannula, Ambu-Bag 1.5 PG Care Time/CCT Total # of Minutes Spent Total Time Spent with Patient: Total time spent is greater than 50% in coordination of care (as documented) at patient's floor/unit and/or counseling patient: Coding Level of Care Code 25725 INT INP/OBS CARE 3/75MIN Diagnoses Hypotension I95.9 Hypotension type: unspecified hypotension type (1) Hypotension Hypotension type: unspecified hypotension type Qualified Code(s): I95.9 - Hypotension, unspecified
[2024-06-09] MEDS: TORSEMIDE 20 MG TAB PO SCH (20:18)
[2024-06-10 08:38] LABS: Basophils # (auto) 0.08 K/uL (0.00-0.20); Basophils % (auto) 1.2 %; Eosinophils # (auto) 0.39 K/uL (0.00-0.50); Eosinophils % (auto) 6.1 %; Hematocrit (blood only) 30.6 % (42.0-52.0); Hemoglobin 9.1 g/dl (14.0-18.0); Immature Granulocytes # (auto) 0.03 K/uL (0.01-0.20); Immature Granulocytes % (auto) 0.5 %; Lymphocytes # (auto) 0.83 K/uL (1.20-3.40); Lymphocytes % (auto) 12.9 %; Mean Corpuscular Hemoglobin 26.5 pg (25.0-34.0); Mean Corpuscular Hgb Conc 29.7 g/dL (32.0-36.0); Monocytes # (auto) 0.49 K/uL (0.11-0.59); Monocytes % (auto) 7.6 %; Neutrophils # (auto) 4.62 K/uL (1.40-6.50); Neutrophils % (auto) 71.7 %; Platelet Count 159 K/uL (130-400); RDW Coefficient of Variation 19.1 % (11.5-14.5); RDW Standard Deviation 62.3 fL (36.4-46.3); Red Blood Count 3.44 M/uL (4.70-6.10); White Blood Count 6.44 K/ul (4.8-10.8)
[2024-06-10 08:58] LABS: Albumin Level 3.1 gm/dl (3.4-5.0); BUN Creatinine Ratio 23.4 (10-20); Calcium 9.1 mg/dl (8.6-10.3); Creatinine Clr Calc Pharmacy 26.5 ml/min; Phosphorus 4.5 mg/dl (2.5-4.9); Potassium 3.7 mmol/L (3.5-5.1)
[2024-06-10 09:17] LABS: Ferritin 40.7 ng/ml (8-388)
--- NOTE | 2024-06-10 09:55 | Nephrology Progress Note ---
Date of Service June 10, 2024 Assessment & Plan (1) Hypotension: Plan 84-year-old gentleman with stage III B/4 CKD, b/l cr around 2.5 mg/dl with solitary right kidney status post left nephrectomy in 2011 for renal cell carcinoma and repeated history of acute kidney injury. Prior urinalysis unremarkable. Renal imaging showed otherwise normal right kidney. Admitted to the hospital with critical hypokalemia, potassium was 2.3 in the setting of outpatient regimen of Bumex and metolazone as needed. Diuretics has been on hold however yesterday he was noted to be volume overloaded with an episode of unresponsiveness and shortness of breath. He was started on torsemide 40 mg twice a day with decent urine output. Kidney function has been staying relatively stable, creatinine has been around 2.2-2.5 over last few days, close to baseline. Potassium normalized with potassium supplement. Seems clinically volume overloaded although not far from his previous dry weight. Kidney function staying relatively stable, electrolyte acceptable. Hemoglobin low with iron deficiency. Has been responding well to diuretics with net negative more than 1 L. Continues to have significant bilateral lower extremity edema. --Continue on torsemide 40 mg twice a day, aim for net negative, continue low- salt diet, keep legs elevated and use compression stockings. --Start on Venofer 300 mg IV daily x 3 doses but okay to discontinue on discharge and resume oral iron --epogen 48532 units x 1 dose --left arm precaution for possible vascular access in future if kidney function worsen and he considers [employer], previously was not interested but did not make final decision. --continue current dose of KCL supplement --Recommend outpatient lab weekly while on high-dose diuretics, has follow-up scheduled at CKD clinic in mid June. Will sign off, thank you for the consult. Admission and Anticipated Discharge Date Admission Date: June 03, 2024 Subjective Ed was seen and evaluated this morning. He reports overall feeling well, denies any shortness of breath but lower extremity edema seem to have worsened despite having decent urine output and net negative more than 1 L. Kidney function stable, electrolyte acceptable, potassium has been staying below normal on supplement. Hemoglobin low at 9.1 with iron deficiency. Blood pressure low but relatively stable and asymptomatic. Review of Systems Review of Systems: Detailed review of systems done pertinent positives and negatives are mentioned above. Physical Exam Constitutional: WD/WN, vitals as above no acute distress Eyes: + anicteric sclerae Respiratory: no respiratory distress Auscultation: lungs clear to auscultation bilaterally Cardiovascular: Rate/Rhythm: regular rate and regular rhythm Heart Sounds: normal S1 and normal S2 Extremities: + edema (2+ b/l LE edema) Musculoskeletal: edematous b/l LE Skin: no rashes, warm and dry Neurologic: no focal motor deficits Psychiatric: Orientation: alert and oriented x 3 Affect: euthymic affect Results & Data Vital Signs (Past 12 Hours) Vital Signs Temp Pulse Pulse Resp BP Pulse Ox O2 Del Method 06/10/24 08:00 77 06/10/24 07:26 36.7 C 114 H 20 100/65 94 Room Air 06/10/24 03:17 86 20 96 06/10/24 03:17 36.6 C 93 H 18 118/61 97 Nasal Cannula 06/09/24 22:59 88 06/09/24 22:37 85 22 95 06/09/24 22:15 36.7 C 102 H 20 99/64 L CPAP O2 Flow Rate 06/10/24 08:00 06/10/24 07:26 06/10/24 03:17 3 06/10/24 03:17 3 06/09/24 22:59 06/09/24 22:37 3 06/09/24 22:15 PG Care Time/CCT Total # of Minutes Spent Total Time Spent with Patient: Total time spent is greater than 50% in coordination of care (as documented) at patient's floor/unit and/or counseling patient: Coding Level of Care Code 35866 SUB INP/OBS CARE 2/35MIN Diagnoses Hypotension I95.9 Hypotension type: unspecified hypotension type (1) Hypotension Hypotension type: unspecified hypotension type Qualified Code(s): I95.9 - Hypotension, unspecified
[2024-06-10] MEDS: IRON SUCROSE 300 MG in SODIUM CHLORIDE 0.9% 250 ML IV SCH (10:10)
--- NOTE | 2024-06-10 10:16 | Hospitalist Progress Note ---
Date of Service June 10, 2024 Assessment & Plan (1) Acute hypokalemia: (2) Elevated troponin: (3) DEONNA (acute kidney injury): Plan 84-year-old male PMHx A-fib with RVR on Xarelto, CHF, RACHELE, secondary hyperparathyroidism, RCC s/p L nephrectomy, CKD, HTN, HLD, and recent hospital admission 05/14/2024 until 05/19/2024 for hemorrhagic shock from GI bleed who is presenting due to referral from PCP for low potassium levels on outpatient labs. ED evaluation reveals no leukocytosis, H&H 10/31.5, potassium 2.4, chloride 89, CO2 35, AG 15, creatinine 2.99, BUN 85, ratio 28.4, magnesium 2.4, troponin 48.3, and BNP 748; CXR with stable prominent pulmonary vascularity suggestive of congestion; EKG A-fib at 84 bpm. Provided with 1L NSS, 40 mEq KCl p.o., and 10 mEq IV in ED. #Hypokalemia, resolved Continue potassium supplementation # Acute on chronic heart failure with reduced ejection fraction, A-fib - History of A-fib and HFrEF; on home regimen Xarelto, metoprolol, torsemide, metolazone. Troponin elevated on arrival, no chest pain. - EKG on admission A-fib, rate 84 bpm; without ischemic changes - Troponin 48.3, repeat 40.7; BNP 748. Suspect demand ischemia versus clearance due to CKD - Echo 04/28/2024 with EF 40 to 45% -Adjustment and up titration of torsemide to 40 mg dosing is with adequate output. Approximately 1.6 L out yesterday with net -887, will keep this dose today. Remains with evidence of volume overload and pt does feel ready for home today, but improving. Remains with evidence of volume overload and some leg edema, weight near bl. Anticipate progression to home with home health services likely 06/11 Renal function stable #DEONNA/CKD/History RCC s/p L nephrectomy H/o CKD stage IV; Slight increase in Cr from patient's baseline. - Cr 2.99, baseline per nephrology visit 04/23 appears to be 3-3.2; -Creatinine remained stable with diuresis Patient follow-up with nephrology following discharge RACHELE: History of this on iron supplements. No signs of bleeding. Follow H&H. Received EPO and Venofer 06/10 FIFI: Continue nocturnal oxygen, not on PPV Full code VTE prophylaxis: SCDs Admission and Anticipated Discharge Date Admission Date: June 03, 2024 Subjective Seen at bedside this morning. Greatly improved clinical appearance overall. Color is better, patient reports he does not feel quite back to baseline but again improving. Good urinary output over the last 24 hours. With adjustment of torsemide dosing has had 1667 cc of output net -887 cc. Ordered a dose of Venofer and EPO nephrology today Remains with some volume overload but hopeful for discharge with home with services tomorrow No other questions or concerns patient at bedside.. No lightheadedness/dizziness, chest pain, chest pressure, fever, chills overnight Physical Exam Physical Exam: General: A&Ox3. NAD. Cooperative. In chair comfortably at time of visit HEENT: Atraumatic, normocephalic. Vision and hearing grossly intact. Improved color Pulm: Grossly clear, slightly diminished symmetrical chest rise. No increase in work of breathing. No respiratory distress. Cardiac:irir, slightly tachycardic on assessment.. Radial pulses intact and symmetrical. Extremities: Bilateral 2+ pitting edema of the lower extremities Results & Data Results & Data Vital Signs (Past 12 Hours) Vital Signs Temp Pulse Pulse Resp BP Pulse Ox O2 Del Method 06/10/24 08:00 77 06/10/24 07:26 36.7 C 114 H 20 100/65 94 Room Air 06/10/24 03:17 86 20 96 06/10/24 03:17 36.6 C 93 H 18 118/61 97 Nasal Cannula 06/09/24 22:59 88 06/09/24 22:37 85 22 95 06/09/24 22:15 36.7 C 102 H 20 99/64 L CPAP O2 Flow Rate 06/10/24 08:00 06/10/24 07:26 06/10/24 03:17 3 06/10/24 03:17 3 06/09/24 22:59 06/09/24 22:37 3 06/09/24 22:15 PG Care Time/CCT Total # of Minutes Spent Total Time Spent with Patient: Total time spent is greater than 50% in coordination of care (as documented) at patient's floor/unit and/or counseling patient: Coding Level of Care Code 11172 SUB INP/OBS CARE 3/50MIN Diagnoses Acute hypokalemia E87.6 Elevated troponin R79.89 DEONNA (acute kidney injury) N17.9
--- NOTE | 2024-06-11 07:37 | Discharge Summary ---
Discharge Summary Date of Service June 11, 2024 Principal Dx & Hospital Course #1 = Principal Diagnosis (1) Acute hypokalemia: (2) Elevated troponin: (3) DEONNA (acute kidney injury): Plan 84-year-old male PMHx A-fib with RVR on Xarelto, CHF, RACHELE, secondary hyperparathyroidism, RCC s/p L nephrectomy, CKD, HTN, HLD, and recent hospital admission 05/14/2024 until 05/19/2024 for hemorrhagic shock from GI bleed who is presenting due to referral from PCP for low potassium levels on outpatient labs. ED evaluation reveals no leukocytosis, H&H 10/31.5, potassium 2.4, chloride 89, CO2 35, AG 15, creatinine 2.99, BUN 85, ratio 28.4, magnesium 2.4, troponin 48.3, and BNP 748; CXR with stable prominent pulmonary vascularity suggestive of congestion; EKG A-fib at 84 bpm. Provided with 1L NSS, 40 mEq KCl p.o., and 10 mEq IV in ED. Treated for hypokalemia by resuming potassium supplementation, this resolved and normalized Did have acute on chronic heart failure reduced ejection fraction. Diuretics were initially started low with torsemide 10 mg versus uptitrated to 40 mg twice daily with good output at this dose. Renal function remained stable. Diuresed well and was near his baseline weight with greatly improved leg edema and no hypoxia at time of discharge. Patient's home dose of torsemide prior to admission was 100 mg by mouth twice daily. Given that he was having adequate diuresis at a 40 mg dose twice daily this was continued. Patient can resume his home as needed metolazone dosing. He did receive 2 doses of Venofer during admission and 1 dose of Epogen. He did not have any acute bleeding during admission. Does take chronic iron supplementation and likely some anemia from CKD Was seen by nephrology who agreed with above recommendations, with addition of left arm precautions for possible vascular access in the future and if kidney function were to worsen and he considered COLLECTION OFFICER. To do as outpatient: 1. Continue torsemide 40 mg by mouth twice daily. Keep legs elevated, use compression stockings 2. Outpatient follow-up BMP within 1 week 3. Follow-up to PCP and retail service specialist #Hypokalemia, resolved Continue potassium supplementation # Acute on chronic heart failure with reduced ejection fraction, A-fib - History of A-fib and HFrEF; on home regimen Xarelto, metoprolol, torsemide, metolazone. Troponin elevated on arrival, no chest pain. - EKG on admission A-fib, rate 84 bpm; without ischemic changes - Troponin 48.3, repeat 40.7; BNP 748. Suspect demand ischemia versus clearance due to CKD - Echo 04/28/2024 with EF 40 to 45% -Adjustment and up titration of torsemide to 40 mg dosing is with adequate output. Did well with improvement of leg edema and no hypoxia, did well and was able to progress to home with home health services #DEONNA/CKD/History RCC s/p L nephrectomy H/o CKD stage IV; Slight increase in Cr from patient's baseline. - Cr 2.99, baseline per nephrology visit 04/23 appears to be 3-3.2; -Creatinine remained stable with diuresis Patient follow-up with nephrology following discharge Admission HPI Per Admitting Provider 84-year-old male PMHx A-fib with RVR on Xarelto, CHF, RACHELE, secondary hyperparathyroidism, RCC s/p L nephrectomy, CKD, HTN, HLD, and recent hospital admission 05/14/2024 until 05/19/2024 for hemorrhagic shock from GI bleed who is presenting due to referral from PCP for low potassium levels on outpatient labs. Patient states that he is feeling "amazing" and is only here because he got a call from his PCP that he needed to be evaluated in the ED. States that he went to outpatient appointment 1300 and there were no concerns but at around 1700 he got a call that his potassium was severely low and he needed to be evaluated. Admits to taking both metolazone and torsemide every day, and also has discontinued taking potassium supplement as recommended by outside provider. Patient states that during his evaluation in ED, he noticed that his toes were having some cramping and slightly numb but that has improved after having the first amount of potassium. Denies muscle weakness, palpitations, constipation, lightheadedness, or polydipsia. Also denying chest pain, shortness of breath, abdominal pain, N/V/D/C, LUTS, headache, or fever/chills. ED evaluation reveals no leukocytosis, H&H 10/31.5, potassium 2.4, chloride 89, CO2 35, AG 15, c reatinine 2.99, BUN 85, ratio 28.4, magnesium 2.4, troponin 48.3, and BNP 748; CXR with stable prominent pulmonary vascularity suggestive of congestion; EKG A- fib at 84 bpm. Provided with 1L NSS, 40 mEq KCl p.o., and 10 mEq IV in ED. Please see Dr. Cuevas's attestation for adjustments/additions to treatment plan. Discharge Plan Discharge Items Patient Disposition: Home - Home Health Services Reason For Visit: HYPOKALEMIA Discharge Diagnosis: Hypokalemia, acute on chronic heart failure with midrange EF 40-45% Activity: Resume your previous activity Non-emergency contact: Primary Care Provider and Fiberglass Bonding Machine Tender Call non-emergency contact if: you have any medication questions, your symptoms worsen and your pain is not controlled Follow-up/Referrals: Tania Boogie MD [Physician] - Zackery Cochran, [Primary Care Provider] - Diet: Heart Healthy Addtl Attending Provider Instructions: You are seen in the hospital for hypokalemia and acute heart failure. Your hypokalemia resolved with repletion and oral potassium supplements were continued. Your acute heart failure gradually improved and you had good urine output on a torsemide dose of 40 mg by mouth twice daily. You were previously on 100 mg twice daily at home. Your torsemide has been continued at 40 mg by mouth twice daily. Metolazone as needed has been continued. Your metoprolol was dose reduced due to hypotension. Please follow-up with your bridge inspector as an outpatient regarding this medication if stable to do so they will likely wish to uptitrate this again for your heart failure if you are doing well. Please continue to maintain a low-salt diet and take your weight daily If you are having inadequate urine output (less than a liter per day) or gaining weight, please contact your retail service specialist for recommendations. You are not hypoxic and had clinically improved at time of discharge. Please elevate your legs at least 3 times daily If you develop any new or worsening symptoms including fever, chills, sweats, chest pain, chest pressure, difficulty breathing, uncontrolled nausea/vomiting, rash, wheezing, passing out or nearly passing out, bleeding, black/bloody bowel movements, or other new or concerning symptoms please call your primary care physician, or call 911 for re-evaluation in the emergency department if you are very concerned. Pending Studies at Discharge: No Stand-Alone Forms: My [facility], Smoking Cessation Medications and DC Order Prescriptions: New potassium chloride 20 mEq Tablet,Er Particles/Crystals 20 meq PO TID Qty: 90 0RF Continued cyanocobalamin (vitamin B-12) 1,000 mcg/mL solution 1,000 mcg IM Q90D Qty: 30 0RF metolazone 5 mg tablet 5 mg PO DAILY PRN (Reason: weight gain) Qty: 30 5RF calcitriol 0.25 mcg capsule 0.5 mcg PO QAM Qty: 180 3RF tramadol 50 mg tablet 50 mg PO BID PRN (Reason: Pain) Qty: 60 0RF midodrine 10 mg tablet 10 mg PO TID@0800,1200,1700 Qty: 270 3RF amoxicillin 500 mg tablet 2,000 mg PO DIRECTED PRN (Reason: 1 HOUR PRIOR TO DENTAL PROCEDURES) Patient Comments: 2,000 mg PO 1 hour prior to dental procedure.; Rx Instructions: TAKE 4 CAPSULES BY MOUTH 1 HOUR PRIOR TO DENTAL WORK pantoprazole 40 mg tablet,delayed release (DR/EC) 40 mg PO QAM 90 Days Qty: 90 2RF tamoxifen 20 mg tablet 20 mg PO QAM Qty: 90 1RF ferrous sulfate 324 mg (65 mg iron) tablet,delayed release (DR/EC) 324 mg PO BID 90 Days Qty: 180 3RF magnesium 200 mg tablet 200 mg PO DAILY Qty: 90 3RF allopurinol 100 mg tablet 50 mg PO QAM cyclobenzaprine 5 mg tablet 5 mg PO BID PRN (Reason: muscle pain/stiffness) Patient Comments: Takes BID helps with tremor aspirin 81 mg tablet,chewable 81 mg PO DAILY cholecalciferol (vitamin D3) [Vitamin D3] 50 mcg (2,000 unit) Capsule 50 mcg PO DAILY docusate sodium 100 mg Capsule 100 mg PO DAILY PRN (Reason: constipation) Qty: 0 0RF (DME) Portable Oxygen Misc See Rx Instructions .ROUTE Rx Instructions: 3 L at night nime Changed torsemide 100 mg tablet 40 mg PO BID 90 Days Qty: 180 1RF metoprolol succinate [Toprol XL] 100 mg tablet extended release 24 hr 50 mg PO BID Qty: 0 0RF Discharge Orders: Discharge Order (Routine); Ordered 06/11/24 Ordered By: Primitivo Pollard Admission Data Admit Date/Time: 06/03/24 21:12 Attending Provider: Primitivo Pollard Admit Provider: Mahamed Cuevas Primary Care Provider: Zackery Cochran Other Providers: Mahamed Cuevas; [facility]; [facility] Hospital Stay Data Consultations 06/03/24 21:52 ED Decision to Admit Stat 06/09/24 13:55 Consult Nephrology Routine Discharge Instructions Given to Patient (Per Discharging Provider) You are seen in the hospital for hypokalemia and acute heart failure. Your hypokalemia resolved with repletion and oral potassium supplements were continued. Your acute heart failure gradually improved and you had good urine output on a torsemide dose of 40 mg by mouth twice daily. You were previously on 100 mg twice daily at home. Your torsemide has been continued at 40 mg by mouth twice daily. Metolazone as needed has been continued. Your metoprolol was dose reduced due to hypotension. Please follow-up with your bridge inspector as an outpatient regarding this medication if stable to do so they will likely wish to uptitrate this again for your heart failure if you are doing well. Please continue to maintain a low-salt diet and take your weight daily If you are having inadequate urine output (less than a liter per day) or gaining weight, please contact your retail service specialist for recommendations. You are not hypoxic and had clinically improved at time of discharge. Please elevate your legs at least 3 times daily If you develop any new or worsening symptoms including fever, chills, sweats, chest pain, chest pressure, difficulty breathing, uncontrolled nausea/vomiting, rash, wheezing, passing out or nearly passing out, bleeding, black/bloody bowel movements, or other new or concerning symptoms please call your primary care physician, or call 911 for re-evaluation in the emergency department if you are very concerned. Coding Diagnoses Acute hypokalemia E87.6 Elevated troponin R79.89 DEONNA (acute kidney injury) N17.9
[2024-06-11 08:01] LABS: Basophils # (auto) 0.07 K/uL (0.00-0.20); Basophils % (auto) 1.1 %; Eosinophils # (auto) 0.34 K/uL (0.00-0.50); Eosinophils % (auto) 5.3 %; Hematocrit (blood only) 30.6 % (42.0-52.0); Hemoglobin 9.3 g/dl (14.0-18.0); Immature Granulocytes # (auto) 0.02 K/uL (0.01-0.20); Immature Granulocytes % (auto) 0.3 %; Lymphocytes % (auto) 15.6 %; Mean Corpuscular Hemoglobin 26.3 pg (25.0-34.0); Mean Corpuscular Hgb Conc 30.4 g/dL (32.0-36.0); Mean Corpuscular Volume 86.7 fL (80.0-100.0); Mean Platelet Volume 9.4 fL (9.4-12.4); Monocytes # (auto) 0.52 K/uL (0.11-0.59); Monocytes % (auto) 8.1 %; Neutrophils # (auto) 4.46 K/uL (1.40-6.50); Neutrophils % (auto) 69.6 %; Platelet Count 163 K/uL (130-400); RDW Coefficient of Variation 19.3 % (11.5-14.5); Red Blood Count 3.53 M/uL (4.70-6.10); White Blood Count 6.41 K/ul (4.8-10.8)
[2024-06-11 08:09] LABS: BUN Creatinine Ratio 23.6 (10-20); Calcium 9.2 mg/dl (8.6-10.3); Creatinine Clr Calc Pharmacy 27.7 ml/min; Phosphorus 4.1 mg/dl (2.5-4.9); Potassium 3.9 mmol/L (3.5-5.1)
[2024-06-11] MEDS: METOPROLOL TARTRATE 1 MG/ML VIAL IV STA (08:38)
--- NOTE | 2024-06-11 09:22 | Hospitalist Progress Note ---
Date of Service June 11, 2024 Assessment & Plan (1) Acute hypokalemia: Plan: 84-year-old male PMHx A-fib with RVR on Xarelto, CHF, RACHELE, secondary hyperparathyroidism, RCC s/p L nephrectomy, CKD, HTN, HLD, and recent hospital admission 05/14/2024 until 05/19/2024 for hemorrhagic shock from GI bleed who is presenting due to referral from PCP for low potassium levels on outpatient labs. ED evaluation reveals no leukocytosis, H&H 10/31.5, potassium 2.4, chloride 89, CO2 35, AG 15, creatinine 2.99, BUN 85, ratio 28.4, magnesium 2.4, troponin 48.3, and BNP 748; CXR with stable prominent pulmonary vascularity suggestive of congestion; EKG A-fib at 84 bpm. Provided with 1L NSS, 40 mEq KCl p.o., and 10 mEq IV in ED. #Hypokalemia, resolved Continue potassium supplementation # Acute on chronic heart failure with reduced ejection fraction, A-fib - History of A-fib and HFrEF; on home regimen Xarelto, metoprolol, torsemide, metolazone. Troponin elevated on arrival, no chest pain. - EKG on admission A-fib, rate 84 bpm; without ischemic changes - Troponin 48.3, repeat 40.7; BNP 748. Suspect demand ischemia versus clearance due to CKD - Echo 04/28/2024 with EF 40 to 45% -Adequate output with torsemide 40 mg twice daily. Will continue this dose. Renal function stable A-fib Patient was well-controlled previously however 06/10 morning did suddenly develop A-fib RVR --> 130-140s, patient tremulous, poor clinical appearance, and unsteady on his feet. Normotensive at time of bedside assessment. Missed his dose of metoprolol yesterday evening as this was held for borderline hypotension. 1 dose of IV metoprolol ordered for RVR. PO metoprolol continued. - +1g Mg IV Patient no longer on rivaroxaban, this was previously discontinued and he remains on aspirin alone - Inadequate rate control for d/c #DEONNA/CKD/History RCC s/p L nephrectomy H/o CKD stage IV; Slight increase in Cr from patient's baseline. - Cr 2.99, baseline per nephrology visit 1/25 appears to be 3-3.2; -Creatinine remained stable with diuresis Patient follow-up with nephrology following discharge Tremors Chronic. Improved with muscle relaxants although these are intermittently limited by mental status and blood pressure. Can continue cyclobenzaprine but hold for sedation/AMS RACHELE: History of this on iron supplements. No signs of bleeding. Follow H&H. Received EPO and Venofer 06/10 FIFI: Continue nocturnal oxygen, not on PPV Full code VTE prophylaxis: SCDs (2) Elevated troponin: (3) DEONNA (acute kidney injury): Admission and Anticipated Discharge Date Admission Date: June 03, 2024 Subjective Seen at the bedside this morning. Tremulous shaky and tachycardic. Reports that he feels much worse than he did last night. He reports that he has had tremor spells for many months that seem to only improve with cyclobenzaprine but has been receiving this only intermittently or in partial doses due to his hypotension. Additionally his metoprolol was held last night for borderline hypotension, and heart has been racing this morning. While his volume status looks improving he has increased weakness, tremulous, and poor appearance this morning not ready for discharge. Denies shortness of breath, difficulty breathing. Denies worsening leg swelling. Denies chest pain. No fevers or show Physical Exam Physical Exam: General: A&Ox3. NAD. Cooperative. Laying in bed, bilateral upper extremity tremors which are quite on intention HEENT: Atraumatic, normocephalic. Vision and hearing grossly intact. Improved color Pulm: Grossly clear, slightly diminished symmetrical chest rise. No increase in work of breathing. No respiratory distress. Cardiac:irir, heart rate initially 80s90s, on bedside reassessment increased to 144. Radial pulses intact and symmetrical. Extremities: Bilateral 12+ pitting edema of the lower extremities Results & Data Results & Data Vital Signs (Past 12 Hours) Vital Signs Temp Pulse Pulse Resp BP BP Pulse Ox 06/11/24 09:08 122 H 95/72 L 06/11/24 07:49 36.4 C L 123 H 16 113/66 98 06/11/24 07:22 92 H 06/11/24 03:42 36.6 C 107 H 19 125/90 100 06/11/24 03:04 88 18 98 06/11/24 01:00 06/10/24 23:05 89 23 96 06/10/24 22:32 36.5 C 98 H 18 98/64 L 94 Pulse Ox O2 Del Method O2 Del Method O2 Flow Rate 06/11/24 09:08 06/11/24 07:49 Room Air 06/11/24 07:22 06/11/24 03:42 CPAP 06/11/24 03:04 3 06/11/24 01:00 95 Room Air 06/10/24 23:05 3 06/10/24 22:32 Room Air PG Care Time/CCT Total # of Minutes Spent Total Time Spent with Patient: Total time spent is greater than 50% in coordination of care (as documented) at patient's floor/unit and/or counseling patient: Coding Level of Care Code 98864 SUB INP/OBS CARE 3/50MIN Diagnoses Acute hypokalemia E87.6 Elevated troponin R79.89 DEONNA (acute kidney injury) N17.9
[2024-06-11 11:10] LABS: Magnesium 1.9 mg/dl (1.7-2.4)
[2024-06-11] MEDS: MAGNESIUM SULFATE / D5W 1 GM/100 ML BAG IV ONE (13:03)
[2024-06-11] MEDS: HEPARIN SOD 5,000 UNIT/0.5 ML VIAL SQ SCH (14:25)
[2024-06-12 07:56] LABS: Basophils # (auto) 0.09 K/uL (0.00-0.20); Basophils % (auto) 1.4 %; Eosinophils % (auto) 6.2 %; Hematocrit (blood only) 30.9 % (42.0-52.0); Hemoglobin 9.5 g/dl (14.0-18.0); Immature Granulocytes # (auto) 0.02 K/uL (0.01-0.20); Immature Granulocytes % (auto) 0.3 %; Lymphocytes # (auto) 0.96 K/uL (1.20-3.40); Lymphocytes % (auto) 14.9 %; Mean Corpuscular Hgb Conc 30.7 g/dL (32.0-36.0); Mean Corpuscular Volume 87.8 fL (80.0-100.0); Mean Platelet Volume 9.5 fL (9.4-12.4); Monocytes # (auto) 0.51 K/uL (0.11-0.59); Monocytes % (auto) 7.9 %; Neutrophils # (auto) 4.48 K/uL (1.40-6.50); Neutrophils % (auto) 69.3 %; Platelet Count 161 K/uL (130-400); RDW Coefficient of Variation 19.7 % (11.5-14.5); RDW Standard Deviation 63.4 fL (36.4-46.3); Red Blood Count 3.52 M/uL (4.70-6.10); White Blood Count 6.46 K/ul (4.8-10.8)
[2024-06-12 08:01] VITALS: BP 99/78; PULSE 106; RESP 20; TEMP 99.1; O2SAT 95
[2024-06-12 08:21] LABS: BUN Creatinine Ratio 24.1 (10-20); Calcium 9.3 mg/dl (8.6-10.3); Creatinine Clr Calc Pharmacy 30.5 ml/min; Potassium 3.8 mmol/L (3.5-5.1)
--- NOTE | 2024-06-12 10:26 | Discharge Summary ---
Discharge Summary Date of Service June 12, 2024 Principal Dx & Hospital Course #1 = Principal Diagnosis (1) Acute hypokalemia: (2) Elevated troponin: (3) DEONNA (acute kidney injury): Discharge Exam GENERAL APPEARANCE NAD, activity normal for age, well developed/ well nourished, no cyanosis, pallor, or diaphoresis. EYES lids/conjunctiva normal. EARS/NOSE/THROAT Mucous membranes moist, nares normal, lips/teeth normal uvula midline without oral pharyngeal erythema, exudate or swelling TMs normal bilaterally. No lymphangitis/lymphedema. HEAD/NECK normocephalic atraumatic, no facial trauma, neck is supple. RESPIRATORY respiratory effort normal, speaks in full sentences, no tripod position, no accessory muscle use. Lungs clear to auscultation without rhonchi, wheezes, rales CARDIAC Regular rate and rhythm, no edema. ABDOMINAL Soft, ND/NT. No evidence of fluid wave. No pulsatile masses on exam, rebound tenderness, Perdue sign or pain over Mcburney's point. MUSCLES/EXTREMITIES No abnormal range of motion, no swelling. SKIN Warm, pink and dry. No rashes, dermatoses, petechiae or lesions. NEUROLOGICAL Speech is clear and appropriate. Normal level of consciousness. Gait and coordination are normal. 5/5 strength in all extremities. PSYCH Normal mood and affect. Judgement/competence is appropriate Discharge Plan Discharge Items Patient Disposition: Home - Home Health Services Reason For Visit: HYPOKALEMIA Discharge Diagnosis: Hypokalemia, acute on chronic heart failure with midrange EF 40-45% Activity: Resume your previous activity Non-emergency contact: Primary Care Provider and Evaluator Call non-emergency contact if: you have any medication questions, your symptoms worsen and your pain is not controlled Follow-up/Referrals: Tania Boogie MD [Physician] - Zackery Cochran DO [Primary Care Provider] - Diet: Heart Healthy Addtl Attending Provider Instructions: You are seen in the hospital for hypokalemia and acute heart failure. Your hypokalemia resolved with repletion and oral potassium supplements were continued. Your acute heart failure gradually improved and you had good urine output on a torsemide dose of 40 mg by mouth twice daily. You were previously on 100 mg t wice daily at home. Your torsemide has been continued at 40 mg by mouth twice daily. Metolazone as needed has been continued. Your metoprolol was dose reduced due to hypotension. Please follow-up with your bisque kiln placer as an outpatient regarding this medication if stable to do so they will likely wish to uptitrate this again for your heart failure if you are doing well. Please continue to maintain a low-salt diet and take your weight daily If you are having inadequate urine output (less than a liter per day) or gaining weight, please contact your car mechanic for recommendations. You are not hypoxic and had clinically improved at time of discharge. Please elevate your legs at least 3 times daily If you develop any new or worsening symptoms including fever, chills, sweats, chest pain, chest pressure, difficulty breathing, uncontrolled nausea/vomiting, rash, wheezing, passing out or nearly passing out, bleeding, black/bloody bowel movements, or other new or concerning symptoms please call your primary care physician, or call 911 for re-evaluation in the emergency department if you are very concerned. Pending Studies at Discharge: No Stand-Alone Forms: [facility], Smoking Cessation Medications and DC Order Prescriptions: New potassium chloride 20 mEq Tablet,Er Particles/Crystals 20 meq PO TID Qty: 90 0RF torsemide 20 mg Tablet 40 mg PO BID Qty: 60 0RF Continued cyanocobalamin (vitamin B-12) 1,000 mcg/mL solution 1,000 mcg IM Q90D Qty: 30 0RF metolazone 5 mg tablet 5 mg PO DAILY PRN (Reason: weight gain) Qty: 30 5RF calcitriol 0.25 mcg capsule 0.5 mcg PO QAM Qty: 180 3RF tramadol 50 mg tablet 50 mg PO BID PRN (Reason: Pain) Qty: 60 0RF midodrine 10 mg tablet 10 mg PO TID@0800,1200,1700 Qty: 270 3RF amoxicillin 500 mg tablet 2,000 mg PO DIRECTED PRN (Reason: 1 HOUR PRIOR TO DENTAL PROCEDURES) Patient Comments: 2,000 mg PO 1 hour prior to dental procedure.; Rx Instructions: TAKE 4 CAPSULES BY MOUTH 1 HOUR PRIOR TO DENTAL WORK pantoprazole 40 mg tablet,delayed release (DR/EC) 40 mg PO QAM 90 Days Qty: 90 2RF tamoxifen 20 mg tablet 20 mg PO QAM Qty: 90 1RF ferrous sulfate 324 mg (65 mg iron) tablet,delayed release (DR/EC) 324 mg PO BID 90 Days Qty: 180 3RF magnesium 200 mg tablet 200 mg PO DAILY Qty: 90 3RF allopurinol 100 mg tablet 50 mg PO QAM cyclobenzaprine 5 mg tablet 5 mg PO BID PRN (Reason: muscle pain/stiffness) Patient Comments: Takes BID helps with tremor aspirin 81 mg tablet,chewable 81 mg PO DAILY cholecalciferol (vitamin D3) [Vitamin D3] 50 mcg (2,000 unit) Capsule 50 mcg PO DAILY docusate sodium 100 mg Capsule 100 mg PO DAILY PRN (Reason: constipation) Qty: 0 0RF (DME) Portable Oxygen Misc See Rx Instructions .ROUTE Rx Instructions: 3 L at night nime Changed metoprolol succinate [Toprol XL] 100 mg tablet extended release 24 hr 50 mg PO BID Qty: 0 0RF torsemide 100 mg tablet 40 mg PO BID 90 Days Qty: 180 1RF Discharge Orders: Discharge Order (Routine); Ordered 06/12/24 Ordered By: Aashish Nelson Admission Data Admit Date/Time: 06/03/24 21:12 Attending Provider: Aashish Nelson Admit Provider: Mahamed Cuevas Primary Care Provider: Zackery Cochran Other Providers: Mahamed Cuevas; [facility] Hospital Stay Data Consultations 06/03/24 21:52 ED Decision to Admit Stat 06/09/24 13:55 Consult Nephrology Routine Pending Results Patient Have Any Pending Studies at Discharge: No Discharge Instructions Given to Patient (Per Discharging Provider) You are seen in the hospital for hypokalemia and acute heart failure. Your hypokalemia resolved with repletion and oral potassium supplements were continued. Your acute heart failure gradually improved and you had good urine output on a torsemide dose of 40 mg by mouth twice daily. You were previously on 100 mg twice daily at home. Your torsemide has been continued at 40 mg by mouth twice daily. Metolazone as needed has been continued. Your metoprolol was dose reduced due to hypotension. Please follow-up with your bisque kiln placer as an outpatient regarding this medication if stable to do so they will likely wish to uptitrate this again for your heart failure if you are doing well. Please continue to maintain a low-salt diet and take your weight daily If you are having inadequate urine output (less than a liter per day) or gaining weight, please contact your car mechanic for recommendations. You are not hypoxic and had clinically improved at time of discharge. Please elevate your legs at least 3 times daily If you develop any new or worsening symptoms including fever, chills, sweats, chest pain, chest pressure, difficulty breathing, uncontrolled nausea/vomiting, rash, wheezing, passing out or nearly passing out, bleeding, black/bloody bowel movements, or other new or concerning symptoms please call your primary care physician, or call 911 for re-evaluation in the emergency department if you are very concerned. Total Time Total Time Spent Total Time Spent (In Minutes): 50 Coding Level of Care Code 51125 INP/OBS DISCH >30 MIN Diagnoses Acute hypokalemia E87.6 Elevated troponin R79.89 DEONNA (acute kidney injury) N17.9
== END 2024-06-12 11:57 | disposition home health service (06) | DRG 640 ==
LOC: ED 18:04 → SUATTDRO 21:12 → 2E 21:12

== ENCOUNTER 2024-11-17 21:40 | Inpatient (IN) ==
[2024-11-17] MEDS: ASPIRIN CHEW 324 MG PO STA (22:12)
[2024-11-17 22:15] LABS: Hematocrit (blood only) 39.0 % (42.0-52.0); Hemoglobin 12.2 g/dl (14.0-18.0); Immature Granulocytes # (auto) 0.05 K/uL (0.01-0.20); Immature Granulocytes % (auto) 0.6 %; Mean Corpuscular Hemoglobin 28.4 pg (25.0-34.0); Mean Corpuscular Volume 90.7 fL (80.0-100.0); Platelet Count 124 K/uL (130-400); RDW Standard Deviation 51.5 fL (36.4-46.3); Red Blood Count 4.30 M/uL (4.70-6.10); White Blood Count 7.93 K/ul (4.8-10.8)
[2024-11-17 22:31] LABS: Anion Gap 7.0 (3-11); Blood Urea Nitrogen 51.0 mg/dl (6-23); Calcium 9.1 mg/dl (8.6-10.3); Carbon Dioxide 29.0 mmol/L (21-32); Chloride 105.0 mmol/L (98-107); Creatinine Clr Calc Pharmacy 28.2 ml/min; Glucose 82.0 mg/dl (70-99(Fasting)); Lipase 88.0 U/L (11-82); Potassium 3.7 mmol/L (3.5-5.1); Sodium 141.0 mmol/L (136-145)
--- NOTE | 2024-11-17 23:13 | Emergency Department Note ---
History of Present Illness General Chief Complaint: Chest Pain Stated Complaint: Chest Pain Time Seen by Provider: 11/17/24 21:53 History of Present Illness Provider Complaint: chest pain Time: 18:00 Duration: intermittent and now resolved Onset: during exertion Pain Location: substernal Severity: moderate Maximum Pain Intensity: 4 Quality: + aching and + heaviness Relieved By: + rest Exacerbated By: + exertion Context: no recent illness, no recent surgery, no recent immobilization, no recent travel, no trauma/injury, no new medications or no history of DVT/PE Associated symptoms: + dyspnea; no nausea, no palpitations, no fever or no cough Home Medications Medication Instructions Recorded Confirmed Type amoxicillin 500 mg tablet 2,000 mg PO DIRECTED PRN 1 HOUR 11/16/18 11/10/24 History PRIOR TO DENTAL PROCEDURES cholecalciferol (vitamin D3) 50 50 mcg PO DAILY 07/10/22 11/10/24 History mcg (2,000 unit) capsule (Vitamin D3) cyanocobalamin (vitamin B-12) 1,000 mcg IM Q90D #30 mL 09/23/22 11/10/24 Rx 1,000 mcg/mL injection solution metolazone 5 mg tablet 5 mg PO DAILY PRN weight gain #30 10/23/22 11/10/24 Rx tabs docusate sodium 100 mg capsule 100 mg PO DAILY PRN constipation 02/08/24 07/08/24 Rx #0 caps calcitriol 0.25 mcg capsule 0.5 mcg (2 x 0.25 mcg) PO QAM #180 04/01/24 11/10/24 Rx caps Portable Oxygen 06/03/24 11/10/24 History ferrous sulfate 324 mg (65 mg 324 mg PO BID 90 days #180 tabs 06/03/24 11/10/24 Rx iron) tablet,delayed release magnesium 200 mg tablet 200 mg PO DAILY #90 tabs 06/03/24 11/10/24 Rx pantoprazole 40 mg tablet,delayed 40 mg PO QAM 90 days #90 tabs 06/03/24 11/10/24 Rx release tamoxifen 20 mg tablet 20 mg PO QAM #90 tabs 06/03/24 11/10/24 Rx cyclobenzaprine 5 mg tablet 5 mg PO BID PRN muscle 06/16/24 11/10/24 Rx pain/stiffness #60 tabs potassium chloride 20 mEq 20 meq PO TID 90 days #270 tabs 06/16/24 11/10/24 Rx tablet,extended release(part/cryst) allopurinol 100 mg tablet 50 mg (1/2 x 100 mg) PO .EVERY 07/01/24 11/10/24 Rx OTHER DAY #45 tabs fluticasone propionate 50 2 spray intranasal DAILY #16 grams 07/01/24 11/10/24 Rx mcg/actuation nasal spray,suspension sodium chloride 0.65 % nasal spray 2 spray intranasal Q2H PRN Other 07/01/24 11/10/24 History aerosol (Saline Mist) apixaban 2.5 mg tablet (Eliquis) 2.5 mg PO BID #60 tabs 07/15/24 11/10/24 Rx metoprolol succinate 100 mg 50 mg (1/2 x 100 mg) PO BID #90 10/05/24 11/10/24 Rx tablet,extended release 24 hr tabs (Toprol XL) acetaminophen 500 mg tablet 1,000 mg PO DAILY 10/19/24 11/10/24 History (Tylenol Extra Strength) midodrine 5 mg tablet 5 mg PO BID #60 tabs 10/19/24 11/10/24 Rx torsemide 40 mg tablet 40 mg PO BID 90 days #180 tabs 10/19/24 11/10/24 Rx doxycycline monohydrate 100 mg 100 mg PO BID #20 tabs 11/03/24 11/10/24 Rx tablet tramadol 50 mg tablet 50 mg PO BID PRN Pain #60 tabs 11/10/24 11/10/24 Rx clobetasol 0.05 % topical cream 1 applic topical BID 2 weeks #30 11/17/24 Rx grams sertraline 50 mg tablet 50 mg PO QDAY #30 tabs 11/17/24 Rx Allergies Allergy/AdvReac Type Severity Reaction Status Date / Time iron [From Venofer] AdvReac Mild Vomiting Verified 11/10/24 13:02 Iodinated Contrast Media AdvReac Unknown PT ONLY Verified 11/10/24 13:02 [Iodinated Contrast- Oral HAS 1 and IV Dye] KIDNEY, CONTRAINDICATED. Past Med/Surg History Problem List (Updated 11/17/24 @ 23:13 by Shawn Kathleen MD) Neck pain Lumbar radiculopathy, right History of lumbar laminectomy for spinal cord decompression Scoliosis of lumbar region due to degenerative disease of spine in adult Low back pain radiating to right leg Benign essential tremor Leg weakness, bilateral Dermatitis Anxiety and depression Heart failure with mildly reduced ejection fraction (HFmrEF, 41-49%) Weakness generalized Physical deconditioning Elevated troponin (Acute) Elevated brain natriuretic peptide (BNP) level (Acute) Acute hypokalemia (Acute) Tremor Back pain, thoracic Hypomagnesemia Hypokalemia Hemorrhagic shock Anemia (Acute) Hypovolemic shock Rectal bleed Atrial fibrillation with RVR (Acute) Chest pain (Acute) Acute respiratory failure with hypoxia (Acute) Acute on chronic diastolic CHF (congestive heart failure) Excessive attrition of teeth, extending into dentine Hip pain, right Hypokalemia Thrombocytopenia (Acute) Fall (Acute) Sepsis (Acute) Abnormal CT of the abdomen Sepsis Chronic anemia Iron deficiency Traumatic open wound of left lower leg with delayed healing (Acute) Lower extremity edema Decreased calculated glomerular filtration rate (GFR) Secondary hyperparathyroidism History of aortic valve disease s/p AVR (2007) History of renal cell carcinoma Hypokalemia Chronic venous insufficiency (Chronic) Traumatic open wound of right lower leg (Acute) Wound of right leg Class 3 severe obesity due to excess calories with body mass index (BMI) of 40.0 to 44.9 in adult Gynecomastia, male Family history of breast cancer gene mutation in first degree relative Hx of gynecomastia Left breast lump Nocturnal hypoxemia Complex sleep apnea syndrome Hypertension (Chronic) Shortness of breath Acute diastolic (congestive) heart failure Hypermagnesemia Arm pain Hand numbness Foraminal stenosis of cervical region Vitamin D deficiency Anxiety (Acute) Venous insufficiency (chronic) (peripheral) Morbid obesity with BMI of 40.0-44.9, adult Gout Microcytic anemia Chronic low back pain with right-sided sciatica B12 deficiency Chronic diastolic CHF (congestive heart failure) (Chronic) Hyperlipidemia (Chronic) Medical History Acute blood loss anemia Hypotension Acute GI bleeding Acute gastrointestinal bleeding Bacteremia (HFpEF) heart failure with preserved ejection fraction Chronic atrial fibrillation CRF (chronic renal failure) Anticoagulated Permanent atrial fibrillation with RVR Chronic kidney disease, stage 4 (severe) Atrial fibrillation Congestive heart failure Chronic dental pain Hypotension Chronic renal insufficiency, stage IV (severe) Iron deficiency anemia Obstructive sleep apnea BIPAP Diabetes mellitus Aspiration into respiratory tract Acute kidney injury superimposed on CKD Morbid obesity History of anxiety Hx of gout Hx of rotator cuff tear Difficulty with raising arms without extreme pain, currently in PT Hx of osteoarthritis Hx of impacted cerumen History of COVID-19 01/2021 > "mild" cold symptoms, resolved Prediabetes Kidney stones Hx x7 Renal cell adenocarcinoma s/p nephrectomy Chronic kidney disease, stage III (moderate) CKD (chronic kidney disease), stage III Surgical History History of aortic valve replacement with bioprosthetic valve H/O aortic valve replacement Hx of cardiac catheterization 11/2020 > no stents History of total bilateral knee replacement History of esophagogastroduodenoscopy (EGD) Hx of colonoscopy Hx of tonsillectomy Hx of cystoscopy w/stone basketing History of left nephrectomy History of spinal surgery Aortic valve replaced bioprosthesis, 2006 History of gastric bypass History of cholecystectomy Family History Mother Breast cancer Lung disease Grandmother (Maternal) Breast cancer Aunt Breast cancer Sister Breast cancer Father Myocardial infarction Arthritis Denies family history of Ovarian cancer Prostate cancer Colorectal cancer Social History Smoking Status: Never smoker Second Hand Exposure: No; Do You Dip or Chew Tobacco: No; Hx Alcohol Use: No Hx Substance Use: No Preferred Language: Kyrgyz Communication Ability: Effective Visual Impairment: No Limitations Hearing Ability: Normal Beef Splitter Required: No Beliefs That Will Affect Care: Spiritual marital status: Current Living Situation: Spouse Current Living Situation Comment: Lives w/ , son lives in basement current occupational status: retired 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[employer] Feels Safe at Home: Yes Childhood Exposure to Second-Hand Smoke: Yes Diet: regular caffeine: Yes Dental Care, Regularly: Yes Physical Activity Frequency: Does not Exercise Physical Activity Frequency Comment: Physical activity limited due to medical conditions Seatbelt Use: always Sunscreen Use: No Do you think of yourself as: straight/heterosexual Gender Identity: Male Assistive Devices: Cane, Glasses and Walker Physical Exam Vital Signs Vital Signs - 24 hr 11/17/24 21:45 11/17/24 21:47 11/17/24 21:57 Temperature Temperature Source Pulse Rate 108 H Pulse Rhythm Pulse Strength Respiratory Rate Respiratory Effort / Characteristics Respiratory Depth Respiratory Pattern Blood Pressure Blood Pressure Mean Blood Pressure Position Pulse Oximetry 92 94 Oxygen Delivery Method Room Air Room Air Sepsis Recent Fever Within 48 Hours Sepsis New/Unexplained Change in Mental Status Sepsis Action Taken by Nursing 11/17/24 22:05 Temperature 36.8 C Temperature Source Oral Pulse Rate 100 H Pulse Rhythm Irregular Pulse Strength Normal Respiratory Rate 20 Respiratory Effort / Characteristics Non-Labored Respiratory Depth Normal Respiratory Pattern Regular Blood Pressure 116/88 Blood Pressure Mean 97 Blood Pressure Position Sitting Pulse Oximetry 94 Oxygen Delivery Method Room Air Sepsis Recent Fever Within 48 Hours No Sepsis New/Unexplained Change in Mental Status N/A Sepsis Action Taken by Nursing No Action Required Physical Exam GENERAL: oriented to person, place, and time. appears well-developed and well- nourished. HENT: Exam performed. - Head: Normocephalic and atraumatic. EYES: Conjunctivae and EOM are normal. Right eye exhibits no discharge. Left eye exhibits no discharge. No scleral icterus. NECK: Normal range of motion. Neck supple. No JVD present. CV: Normal rate, irregular rhythm, normal heart sounds and intact distal pulses. There is no peripheral edema. Palpable radial pulses bue. PULM/CHEST: Effort normal and breath sounds normal. No respiratory distress. No stridor. no wheezes. no rales. ABD: The abdomen is soft. There is no tenderness. NEURO: Motor and sensation grossly intact. SKIN: Erythematous pustular rash over the anterior abdominal and anterior chest wall that the patient states he has had for the last 5 months from [facility]. PSYCH: normal mood and affect. Behavior is normal. Judgment and thought content normal. Course Course 2152: The patient was evaluated in room A10. A complete history and physical exam was performed Cardiac monitoring: An order was placed for continuous cardiac monitoring. The monitor shows a rate of 100 with atrial fibrilation rhythm interpreted by me 2255: Vital signs stable. Labs are unremarkable, kidney function at baseline. Imaging shows cardiomegaly. Patient will be admitted for chest pain rule out ACS. Administered Medications Discontinued Medications Aspirin (Aspirin Chew 324 Mg) 324 mg PO NOW STA Stop: 11/17/24 21:57 Last Admin: 11/17/24 22:12 Dose: Not Given Documented By: LILIAM Medical Decision Making Laboratory Data Attestation: I reviewed the patient's lab results. 11/17/24 21:20 08/21/25 21:20 Labs: Lab Results 11/17/24 Range/Units 21:20 WBC 7.93 (4.8-10.8) K/ul RBC 4.30 L (4.70-6.10) M/uL Hgb 12.2 L (14.0-18.0) g/dl Hct 39.0 L (42.0-52.0) % MCV 90.7 (80.0-100.0) fL MCH 28.4 (25.0-34.0) pg MCHC 31.3 L (32.0-36.0) g/dL RDW Std Deviation 51.5 H (36.4-46.3) fL RDW Coeff of Sarah 15.6 H (11.5-14.5) % Plt Count 124 L (130-400) K/uL MPV 10.8 (9.4-12.4) fL Immature Gran % (Auto) 0.6 % Neut % (Auto) 69.3 % Lymph % (Auto) 15.3 % Calloway % (Auto) 11.1 % Eos % (Auto) 2.4 % Baso % (Auto) 1.3 % Neut # (Auto) 5.50 (1.40-6.50) K/uL Lymph # (Auto) 1.21 (1.20-3.40) K/uL Calloway # (Auto) 0.88 H (0.11-0.59) K/uL Eos # (Auto) 0.19 (0.00-0.50) K/uL Baso # (Auto) 0.10 (0.00-0.20) K/uL Immature Gran # (Auto) 0.05 (0.01-0.20) K/uL PT Cancelled INR Cancelled APTT Cancelled PTT Ratio Cancelled Sodium 141 (136-145) mmol/L Potassium 3.7 (3.5-5.1) mmol/L Chloride 105 (98-107) mmol/L Carbon Dioxide 29 (21-32) mmol/L Anion Gap 7 (3-11) BUN 51 H (6-23) mg/dl Creatinine 2.26 H (0.6-1.4) mg/dl Est Cr Clr Drug Dosing 28.2 ml/min eGFR 28.25 BUN/Creatinine Ratio 22.6 H (10-20) Glucose 82 (70-99(Fasting)) mg/dl Calcium 9.1 (8.6-10.3) mg/dl Troponin I High Sens 17.7 (0-20) pg/ml Lipase 88 H (11-82) U/L Imaging Data Chest x-ray: Attestation: I personally reviewed and interpreted this imaging study as follows: My impression: Chest x-ray: Cardiomegaly ECG Data Attestation: I personally reviewed and interpreted this ECG as follows: Rate (beats per minute): 109 Rhythm: atrial fibrillation Findings: no ST depression, no ST elevation or no prolonged QT [facility] Narrative 2153: The patient was evaluated in room A10. A complete history and physical exam was performed Cardiac monitoring: An order was placed for continuous cardiac monitoring. The monitor shows a rate of 100 with atrial fibrilation rhythm interpreted by me 2255: Vital signs stable. Labs are unremarkable, kidney function at baseline. Imaging shows cardiomegaly. Patient will be admitted for chest pain rule out ACS. Impression & Plan Chest pain Discharge Plan Visit Data Chief Complaint: Chest Pain Stated Complaint: Chest Pain ED Provider: Shawn Kathleen Discharge Problem: Chest pain Patient Disposition: Admitted As Inpatient Condition: Fair Forms Stand Alone Forms: My [facility] Prescriptions Prescriptions: No Action cyanocobalamin (vitamin B-12) 1,000 mcg/mL solution 1,000 mcg IM Q90D Qty: 30 0RF metolazone 5 mg tablet 5 mg PO DAILY PRN (Reason: weight gain) Qty: 30 5RF calcitriol 0.25 mcg capsule 0.5 mcg PO QAM Qty: 180 3RF metoprolol succinate [Toprol XL] 100 mg tablet extended release 24 hr 50 mg PO BID Qty: 90 3RF clobetasol 0.05 % cream 1 applic topical BID 14 Days Qty: 30 1RF Rx Instructions: apply to affected areas twice a today; only apply a thin/small amount. sertraline 50 mg tablet 50 mg PO QDAY Qty: 30 3RF amoxicillin 500 mg tablet 2,000 mg PO DIRECTED PRN (Reason: 1 HOUR PRIOR TO DENTAL PROCEDURES) Patient Comments: 2,000 mg PO 1 hour prior to dental procedure.; Rx Instructions: TAKE 4 CAPSULES BY MOUTH 1 HOUR PRIOR TO DENTAL WORK pantoprazole 40 mg tablet,delayed release (DR/EC) 40 mg PO QAM 90 Days Qty: 90 2RF tamoxifen 20 mg tablet 20 mg PO QAM Qty: 90 1RF ferrous sulfate 324 mg (65 mg iron) tablet,delayed release (DR/EC) 324 mg PO BID 90 Days Qty: 180 3RF magnesium 200 mg tablet 200 mg PO DAILY Qty: 90 3RF potassium chloride 20 mEq tablet,ER particles/crystals 20 meq PO TID 90 Days Qty: 270 3RF cyclobenzaprine 5 mg tablet 5 mg PO BID PRN (Reason: muscle pain/stiffness) Qty: 60 6RF Saline Mist 0.65 % aerosol,spray 2 spray intranasal Q2H PRN (Reason: Other) fluticasone propionate 50 mcg/actuation spray,suspension 2 spray intranasal DAILY Qty: 16 8RF Rx Instructions: administer into each nostril allopurinol 100 mg tablet 50 mg PO .EVERY OTHER DAY Qty: 45 3RF tramadol 50 mg tablet 50 mg PO BID PRN (Reason: Pain) Qty: 60 0RF Eliquis 2.5 mg tablet 2.5 mg PO BID Qty: 60 6RF acetaminophen [Tylenol Extra Strength] 500 mg tablet 1,000 mg PO DAILY midodrine 5 mg tablet 5 mg PO BID Qty: 60 3RF torsemide 40 mg tablet 40 mg PO BID 90 Days Qty: 180 2RF doxycycline monohydrate 100 mg tablet 100 mg PO BID Qty: 20 0RF cholecalciferol (vitamin D3) [Vitamin D3] 50 mcg (2,000 unit) Capsule 50 mcg PO DAILY docusate sodium 100 mg Capsule 100 mg PO DAILY PRN (Reason: constipation) Qty: 0 0RF (DME) Portable Oxygen Misc See Rx Instructions .Route Rx Instructions: [facility] Referrals Referrals: Zackery Cochran DO [Primary Care Provider] - Discharge Problem: Chest pain Qualifiers: Chest pain type: unspecified Qualified Code(s): R07.9 - Chest pain, unspecified
--- NOTE | 2024-11-17 23:42 | History & Physical Report ---
Date of Service November 17, 2024 Assessment & Plan (1) Chest pain: (2) Hyperlipidemia: (3) Chronic atrial fibrillation: (4) Congestive heart failure: (5) Diabetes mellitus: Plan 84yo male presenting with several episodes of sharp, stabbing chest pain. Workup thus far largely unremarkable #Chest pain - negative troponin, EKG with no ischemic changes -Telemetry monitoring -Repeat troponin -Check LFTs with AM labs #FIFI -BiPAP qHS, patient has his own machine #CHF - appears to be compensated -Continue Torsemide 40mg po BID -Continue Metoprolol 75mg po BID #Gout -Continue Allopurinol #Atrial Fibrillation -Continue Apixaban #CKD -Continue Rocaltrol #GERD -Continue Protonix #History of male breast cancer -Continue Tamoxifen History of Present Illness Chief Complaint: chest pain Primary Care Provider: Zackery Cochran DO Kyler Antoine is an 84yo male with history of DM, AF, DM, CKD presenting with chest discomfort. Patient was at the [facility] today - around 18:00 he developed sharp, stabbing left sided chest pain with radiation into his back. Patient's neighbor at the fair is an ER nurse and checked his vital signs - stable, however, given the chest pain she recommended that he come to the ER to get formally checked out. Patient waited a little while then developed worsening chest pain so he decided to come to the ER. Pain is sharp and stabbing, lasting a few seconds. Reoccurred multiple times. Patient felt hot at the time of the pain as well as some shortness of breath. No associated palpitations, dizziness. No leg cramps or unilateral swelling. He did have two episodes of watery diarrhea In the ER patient afebrile, HD stable, mildly tachycardic No additional episodes of chest pain Allergies Allergy/AdvReac Type Severity Reaction Status Date / Time iron [From Venofer] AdvReac Mild Vomiting Verified 11/10/24 13:02 Iodinated Contrast Media AdvReac Unknown PT ONLY Verified 11/10/24 13:02 [Iodinated Contrast- Oral HAS 1 and IV Dye] KIDNEY, CONTRAINDICATED. Home Medications Medication Instructions Recorded Confirmed Type amoxicillin 500 mg tablet 2,000 mg PO DIRECTED PRN 1 HOUR 11/16/18 11/17/24 History PRIOR TO DENTAL PROCEDURES cholecalciferol (vitamin D3) 50 50 mcg PO DAILY 07/10/22 11/17/24 History mcg (2,000 unit) capsule (Vitamin D3) cyanocobalamin (vitamin B-12) 1,000 mcg IM Q90D #30 mL 09/23/22 11/10/24 Rx 1,000 mcg/mL injection solution metolazone 5 mg tablet 5 mg PO DAILY PRN weight gain #30 10/23/22 11/17/24 Rx tabs docusate sodium 100 mg capsule 100 mg PO DAILY PRN constipation 02/08/24 07/08/24 Rx #0 caps calcitriol 0.25 mcg capsule 0.5 mcg (2 x 0.25 mcg) PO QAM #180 04/01/24 11/17/24 Rx caps Portable Oxygen 06/03/24 11/10/24 History ferrous sulfate 324 mg (65 mg 324 mg PO BID 90 days #180 tabs 06/03/24 11/17/24 Rx iron) tablet,delayed release magnesium 200 mg tablet 200 mg PO DAILY #90 tabs 06/03/24 11/17/24 Rx pantoprazole 40 mg tablet,delayed 40 mg PO QAM 90 days #90 tabs 06/03/24 11/17/24 Rx release tamoxifen 20 mg tablet 20 mg PO QAM #90 tabs 06/03/24 11/17/24 Rx cyclobenzaprine 5 mg tablet 5 mg PO BID PRN muscle 06/16/24 11/17/24 Rx pain/stiffness #60 tabs potassium chloride 20 mEq 20 meq PO TID 90 days #270 tabs 06/16/24 11/17/24 Rx tablet,extended release(part/cryst) allopurinol 100 mg tablet 50 mg (1/2 x 100 mg) PO .EVERY 07/01/24 11/17/24 Rx OTHER DAY #45 tabs fluticasone propionate 50 2 spray intranasal DAILY #16 grams 07/01/24 11/17/24 Rx mcg/actuation nasal spray,suspension sodium chloride 0.65 % nasal spray 2 spray intranasal Q2H PRN Other 07/01/24 11/10/24 History aerosol (Saline Mist) apixaban 2.5 mg tablet (Eliquis) 2.5 mg PO BID #60 tabs 07/15/24 11/17/24 Rx metoprolol succinate 100 mg 50 mg (1/2 x 100 mg) PO BID #90 10/05/24 11/10/24 Rx tablet,extended release 24 hr tabs (Toprol XL) acetaminophen 500 mg tablet 1,000 mg PO DAILY 10/19/24 11/10/24 History (Tylenol Extra Strength) midodrine 5 mg tablet 5 mg PO BID #60 tabs 10/19/24 11/17/24 Rx torsemide 40 mg tablet 40 mg PO BID 90 days #180 tabs 10/19/24 11/17/24 Rx doxycycline monohydrate 100 mg 100 mg PO BID #20 tabs 11/03/24 11/10/24 Rx tablet tramadol 50 mg tablet 50 mg PO BID PRN Pain #60 tabs 11/10/24 11/17/24 Rx clobetasol 0.05 % topical cream 1 applic topical BID 2 weeks #30 11/17/24 11/17/24 Rx grams metoprolol succinate 25 mg 75 mg PO HS 11/17/24 11/17/24 History tablet,extended release 24 hr metoprolol succinate 25 mg mg PO 11/17/24 History tablet,extended release 24 hr metoprolol succinate 25 mg mg PO 11/17/24 History tablet,extended release 24 hr sertraline 50 mg tablet 50 mg PO QDAY #30 tabs 11/17/24 11/17/24 Rx Past Med/Surg History Problem List Neck pain Lumbar radiculopathy, right History of lumbar laminectomy for spinal cord decompression Scoliosis of lumbar region due to degenerative disease of spine in adult Low back pain radiating to right leg Benign essential tremor Leg weakness, bilateral Dermatitis Anxiety and depression Heart failure with mildly reduced ejection fraction (HFmrEF, 41-49%) Weakness generalized Physical deconditioning Elevated troponin (Acute) Elevated brain natriuretic peptide (BNP) level (Acute) Acute hypokalemia (Acute) Tremor Back pain, thoracic Hypomagnesemia Hypokalemia Hemorrhagic shock Anemia (Acute) Hypovolemic shock Rectal bleed Atrial fibrillation with RVR (Acute) Chest pain (Acute) Acute respiratory failure with hypoxia (Acute) Acute on chronic diastolic CHF (congestive heart failure) Excessive attrition of teeth, extending into dentine Hip pain, right Hypokalemia Thrombocytopenia (Acute) Fall (Acute) Sepsis (Acute) Abnormal CT of the abdomen Sepsis Chronic anemia Iron deficiency Traumatic open wound of left lower leg with delayed healing (Acute) Lower extremity edema Decreased calculated glomerular filtration rate (GFR) Secondary hyperparathyroidism History of aortic valve disease s/p AVR (2006) History of renal cell carcinoma Hypokalemia Chronic venous insufficiency (Chronic) Traumatic open wound of right lower leg (Acute) Wound of right leg Class 3 severe obesity due to excess calories with body mass index (BMI) of 40.0 to 44.9 in adult Gynecomastia, male Family history of breast cancer gene mutation in first degree relative Hx of gynecomastia Left breast lump Nocturnal hypoxemia Complex sleep apnea syndrome Hypertension (Chronic) Shortness of breath Acute diastolic (congestive) heart failure Hypermagnesemia Arm pain Hand numbness Foraminal stenosis of cervical region Vitamin D deficiency Anxiety (Acute) Venous insufficiency (chronic) (peripheral) Morbid obesity with BMI of 40.0-44.9, adult Gout Microcytic anemia Chronic low back pain with right-sided sciatica B12 deficiency Chronic diastolic CHF (congestive heart failure) (Chronic) Hyperlipidemia (Chronic) Medical History Acute blood loss anemia Hypotension Acute GI bleeding Acute gastrointestinal bleeding Bacteremia (HFpEF) heart failure with preserved ejection fraction Chronic atrial fibrillation CRF (chronic renal failure) Anticoagulated Permanent atrial fibrillation with RVR Chronic kidney disease, stage 4 (severe) Atrial fibrillation Congestive heart failure Chronic dental pain Hypotension Chronic renal insufficiency, stage IV (severe) Iron deficiency anemia Obstructive sleep apnea BIPAP Diabetes mellitus Aspiration into respiratory tract Acute kidney injury superimposed on CKD Morbid obesity History of anxiety Hx of gout Hx of rotator cuff tear Difficulty with raising arms without extreme pain, currently in PT Hx of osteoarthritis Hx of impacted cerumen History of COVID-19 01/2021 > "mild" cold symptoms, resolved Prediabetes Kidney stones Hx x7 Renal cell adenocarcinoma s/p nephrectomy Chronic kidney disease, stage III (moderate) CKD (chronic kidney disease), stage III Surgical History History of aortic valve replacement with bioprosthetic valve H/O aortic valve replacement Hx of cardiac catheterization 11/2020 > no stents History of total bilateral knee replacement History of esophagogastroduodenoscopy (EGD) Hx of colonoscopy Hx of tonsillectomy Hx of cystoscopy w/stone basketing History of left nephrectomy History of spinal surgery Aortic valve replaced bioprosthesis, 2007 History of gastric bypass History of cholecystectomy Family History Mother Breast cancer Lung disease Grandmother (Maternal) Breast cancer Aunt Breast cancer Sister Breast cancer Father Myocardial infarction Arthritis Denies family history of Ovarian cancer Prostate cancer Colorectal cancer Social History Smoking Status: Never smoker Second Hand Exposure: Yes (parents); Do You Dip or Chew Tobacco: No; Hx Alcohol Use: No Hx Substance Use: No Preferred Language: Chinese Communication Ability: Effective Visual Impairment: No Limitations Hearing Ability: Normal 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 Beliefs That Will Affect Care: None marital status: Current Living Situation: Spouse Current Living Situation Comment: home with waife and son current occupational status: retired 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[employer] Feels Safe at Home: Yes Childhood Exposure to Second-Hand Smoke: Yes Diet: regular caffeine: Yes Dental Care, Regularly: Yes Physical Activity Frequency: Does not Exercise Physical Activity Frequency Comment: Physical activity limited due to medical conditions Seatbelt Use: always Sunscreen Use: No Do you think of yourself as: straight/heterosexual Gender Identity: Male Assistive Devices: CPAP, Glasses, Hearing Aid - Bilateral and Walker Review of Systems Review of Systems: All systems reviewed & are unremarkable except as noted in HPI & below Physical Exam Physical Exam: General: patient resting comfortably, NAD, non-toxic in appearance, AA&O x 4 Skin: warm, dry, intact, no rashes or lesions HEENT: NC/AT, PERRL, EOMI, anicteric sclera, conjunctiva without injection, external ear normal to inspection and nontender, nares patent, moist mucus membranes, dentition intact, no oropharyngeal lesions, neck supple, trachea midline, no LAD, no thyromegaly, no JVD Heart: +S1/S2, no m/r/g Lungs: equal air entry bilaterally, no rales/rhonchi/wheezes Abd: +BS, soft, NT/ND, no masses/organomegaly/ascites Ext: warm, 2+ pulses in UE/LE bilaterally, no clubbing/cyanosis or edema Neuro: nonfocal, patient AA&O x 4, speech intact, no facial droop, moving all extremities on command with equal strength 5/5 Results & Data Results & Data Vital Signs (Past 12 Hours) Vital Signs Temp Pulse Resp BP Pulse Ox O2 Del Method 11/17/24 22:05 36.8 C 100 H 20 116/88 94 Room Air 11/17/24 21:57 94 Room Air 11/17/24 21:47 92 Room Air 11/17/24 21:45 108 H Laboratory Results Laboratory Results WBC 7.93 K/ul (4.8-10.8) 11/17/24 21:20 RBC 4.30 M/uL (4.70-6.10) L 11/17/24 21:20 Hgb 12.2 g/dl (14.0-18.0) L 11/17/24 21:20 Hct 39.0 % (42.0-52.0) L 11/17/24 21:20 MCV 90.7 fL (80.0-100.0) 11/17/24 21:20 MCH 28.4 pg (25.0-34.0) 11/17/24 21:20 MCHC 31.3 g/dL (32.0-36.0) L 11/17/24 21:20 RDW Std Deviation 51.5 fL (36.4-46.3) H 11/17/24 21:20 RDW Coeff of Sarah 15.6 % (11.5-14.5) H 11/17/24 21:20 Plt Count 124 K/uL (130-400) L 11/17/24 21:20 MPV 10.8 fL (9.4-12.4) 11/17/24 21:20 Immature Gran % (Auto) 0.6 % 11/17/24 21:20 Neut % (Auto) 69.3 % 11/17/24 21:20 Lymph % (Auto) 15.3 % 11/17/24 21:20 [place] % (Auto) 11.1 % 11/17/24 21:20 Eos % (Auto) 2.4 % 11/17/24 21:20 Baso % (Auto) 1.3 % 11/17/24 21:20 Neut # (Auto) 5.50 K/uL (1.40-6.50) 11/17/24 21:20 Lymph # (Auto) 1.21 K/uL (1.20-3.40) 11/17/24 21:20 [place] # (Auto) 0.88 K/uL (0.11-0.59) H 11/17/24 21:20 Eos # (Auto) 0.19 K/uL (0.00-0.50) 11/17/24 21:20 Baso # (Auto) 0.10 K/uL (0.00-0.20) 11/17/24 21:20 Immature Gran # (Auto) 0.05 K/uL (0.01-0.20) 11/17/24 21:20 PT 11.8 Seconds (9.0-12.0) 11/17/24 23:09 INR 1.1 (0.9-1.1) 11/17/24 23:09 APTT 27 Seconds (21-31) 11/17/24 23:09 PTT Ratio 1.0 11/17/24 23:09 Sodium 141 mmol/L (136-145) 11/17/24 21:20 Potassium 3.7 mmol/L (3.5-5.1) 11/17/24 21:20 Chloride 105 mmol/L (98-107) 11/17/24 21:20 Carbon Dioxide 29 mmol/L (21-32) 11/17/24 21:20 Anion Gap 7 (3-11) 11/17/24 21:20 BUN 51 mg/dl (6-23) H 11/17/24 21:20 Creatinine 2.26 mg/dl (0.6-1.4) H 11/17/24 21:20 Est Cr Clr Drug Dosing 28.2 ml/min 11/17/24 21:20 eGFR 28.25 11/17/24 21:20 BUN/Creatinine Ratio 22.6 (10-20) H 11/17/24 21:20 Glucose 82 mg/dl (70-99(Fasting)) 11/17/24 21:20 Calcium 9.1 mg/dl (8.6-10.3) 11/17/24 21:20 Troponin I High Sens 17.6 pg/ml (0-20) 11/18/24 01:21 Lipase 88 U/L (11-82) H 11/17/24 21:20 Stl C. cayetanensis PCR Not Detected (NotDetected) 11/18/24 01:52 Stool Rotavirus A PCR Not Detected (NotDetected) 11/18/24 01:52 Stl Adenov F 40/41 PCR Not Detected (NotDetected) 11/18/24 01:52 Stool Astrovirus (PCR) Not Detected (NotDetected) 11/18/24 01:52 Stool Campylobacter PCR Not Detected (NotDetected) 11/18/24 01:52 Stool Cryptosporidium PCR Not Detected (NotDetected) 11/18/24 01:52 Stl E.coli Shiga Tox PCR Not Detected (NotDetected) 11/18/24 01:52 Stl Enterotoxigenic E PCR Not Detected (NotDetected) 11/18/24 01:52 Stool EPEC (PCR) Not Detected (NotDetected) 11/18/24 01:52 Stool EAEC (PCR) Not Detected (NotDetected) 11/18/24 01:52 Stl E. histolytica PCR Not Detected (NotDetected) 11/18/24 01:52 Stool Giardia Lamblia PCR Not Detected (NotDetected) 11/18/24 01:52 Stool Salmonella PCR Not Detected (NotDetected) 11/18/24 01:52 Stool Sapovirus (PCR) Not Detected (NotDetected) 11/18/24 01:52 Stl P. shigelloides PCR Not Detected (NotDetected) 11/18/24 01:52 Stl Shigella/EIEC PCR Not Detected (NotDetected) 11/18/24 01:52 St Y.enterocolitica PCR Not Detected (NotDetected) 11/18/24 01:52 Stool Vibrio (PCR) Not Detected (NotDetected) 11/18/24 01:52 Stl Vibrio cholerae PCR Not Detected (NotDetected) 11/18/24 01:52 Stl Norovirus GI/GII PCR Not Detected (NotDetected) 11/18/24 01:52 Impressions Chest X-Ray 11/17/24 21:57 Exam(s): XR CXR 1 VIEW EXAM: XR Chest, 1 View CLINICAL HISTORY: Reason for exam: Chest pain, nonspecific. TECHNIQUE: Frontal view of the chest. COMPARISON: Prior chest x-ray from July 08, 2024. FINDINGS: Lungs: Mild to heavy peribronchial thickening of the central and lower lobe bronchi. No consolidation. Pleural space: Unremarkable. No pneumothorax. Heart: Moderate cardiomegaly. Mediastinum: Unremarkable. Normal mediastinal contour. Bones/joints: Status post median sternotomy with sternal wires intact. No acute fracture. IMPRESSION: Bronchitis, which may be of infectious or inflammatory etiologies. No consolidation or pleural effusion. Cardiomegaly without evidence of CHF. Electronically signed by: Gayle Valerio MD 11/18/24 01:24 AM PG Care Time/CCT Total # of Minutes Spent Total Time Spent with Patient: Total time spent is greater than 50% in coordination of care (as documented) at patient's floor/unit and/or counseling patient: Coding Level of Care Code 18131 INT INP/OBS CARE 3/75MIN Diagnoses Chest pain R07.9 Chest pain type: unspecified Hyperlipidemia E78.5 Chronic atrial fibrillation I48.20 Congestive heart failure I50.9 Heart failure chronicity: acute on chronic Heart failure type: unspecified Diabetes mellitus E11.9 (1) Chest pain Chest pain type: unspecified Qualified Code(s): R07.9 - Chest pain, unspecified (4) Congestive heart failure Heart failure chronicity: acute on chronic Heart failure type: unspecified Qualified Code(s): I50.9 - Heart failure, unspecified
[2024-11-18 00:04] LABS: INR 1.1 (0.9-1.1); Partial Thromboplastin Time 27 Seconds (21-31); Prothrombin Time 11.8 Seconds (9.0-12.0)
[2024-11-18] MEDS ORDERED: ONDANSETRON INJ 2 MG/ML 2 ML VIAL IV PRN (01:10)
[2024-11-18] MEDS ORDERED: DOCUSATE SODIUM 100 MG CAP PO PRN (01:10)
--- NOTE | 2024-11-18 01:25 | XRay Report ---
Exam(s): XR CXR 1 VIEW EXAM: XR Chest, 1 View CLINICAL HISTORY: Reason for exam: Chest pain, nonspecific. TECHNIQUE: Frontal view of the chest. COMPARISON: Prior chest x-ray from July 08, 2024. FINDINGS: Lungs: Mild to heavy peribronchial thickening of the central and lower lobe bronchi. No consolidation. Pleural space: Unremarkable. No pneumothorax. Heart: Moderate cardiomegaly. Mediastinum: Unremarkable. Normal mediastinal contour. Bones/joints: Status post median sternotomy with sternal wires intact. No acute fracture. IMPRESSION: Bronchitis, which may be of infectious or inflammatory etiologies. No consolidation or pleural effusion. Cardiomegaly without evidence of CHF. Electronically signed by: Gayle Valerio MD 11/18/24 01:24 AM
[2024-11-18 03:25] LABS: Adenovirus F 40/41 PCR Not Detected (NotDetected); Campylobacter PCR Not Detected (NotDetected); Enteroaggregative E.coli(EAEC) Not Detected (NotDetected); Shiga-like Toxin E.coli (STEC) Not Detected (NotDetected); Vibrio species PCR Not Detected (NotDetected)
[2024-11-18 07:06] LABS: Hematocrit (blood only) 35.1 % (42.0-52.0); Hemoglobin 10.9 g/dl (14.0-18.0); Mean Corpuscular Hemoglobin 28.4 pg (25.0-34.0); Mean Corpuscular Volume 91.4 fL (80.0-100.0); Platelet Count 105 K/uL (130-400); RDW Standard Deviation 51.5 fL (36.4-46.3); Red Blood Count 3.84 M/uL (4.70-6.10); White Blood Count 7.41 K/ul (4.8-10.8)
[2024-11-18 07:29] LABS: Alanine Aminotransferase 9.0 U/L (7-52); Alkaline Phosphatase 79.0 U/L (34-104); Anion Gap 5.0 (3-11); Bilirubin,Total 0.7 mg/dl (0.2-1.0); Blood Urea Nitrogen 47.0 mg/dl (6-23); Calcium 8.8 mg/dl (8.6-10.3); Carbon Dioxide 31.0 mmol/L (21-32); Chloride 107.0 mmol/L (98-107); Creatinine Clr Calc Pharmacy 27.2 ml/min; Glucose 104.0 mg/dl (70-99(Fasting)); Potassium 3.7 mmol/L (3.5-5.1); Sodium 143.0 mmol/L (136-145); Total Protein 5.5 gm/dl (6.0-8.3)
[2024-11-18] MEDS: CALCITRIOL 0.25 MCG CAPSULE PO SCH (08:42)
[2024-11-18] MEDS: MIDODRINE HCL 2.5 MG TAB PO SCH (08:42)
[2024-11-18] MEDS: FLUTICASONE PROPIONATE NA SPR 16 GM BTL SCH (08:42)
[2024-11-18] MEDS: SERTRALINE HCL 50 MG TABLET PO SCH (08:42)
[2024-11-18] MEDS: APIXABAN 2.5 MG TAB PO SCH (08:42)
[2024-11-18] MEDS: TORSEMIDE 20 MG TAB PO SCH (10:47)
[2024-11-18] MEDS: TAMOXIFEN CITRATE 10 MG TABLET PO SCH (10:47)
--- NOTE | 2024-11-18 11:37 | Hospitalist Progress Note ---
Date of Service November 18, 2024 Assessment & Plan (1) Chest pain: (2) Hyperlipidemia: (3) Chronic atrial fibrillation: (4) Diabetes mellitus: Plan 84yo male presenting with several episodes of sharp, stabbing chest pain. Workup thus far largely unremarkable #Chest pain Atypical, resolved -Telemetry monitoring EKG nonspecific changes Troponins negative Chest x-ray with bronchitis likely viral. Supportive care. May be etiology of her pain. Lipase 88. He does have mild epigastric Mild tenderness. Mild pancreatitis? Questionable gastritis. Presenting symptoms may be GI related. Close outpatient follow-up with PCP Echo #Diarrhea resolved GI PCR negative #FIFI -BiPAP qHS, patient has his own machine #CHF - appears to be compensated -Continue Torsemide 40mg po BID -Continue Metoprolol 75mg po BID #Gout -Continue Allopurinol #Atrial Fibrillation -Continue Apixaban #CKD -Continue Rocaltrol #GERD -Continue Protonix #History of male breast cancer -Continue Tamoxifen DVT prophylaxis Disposition discharge home if Echo unrevealing Admission and Anticipated Discharge Date Admission Date: November 17, 2024 Subjective Tells me is doing just fine. Denies any further chest pain. No shortness of breath nausea lightheadedness diaphoresis other ischemic or other cardiopulmonary symptoms. No abdominal pain. No fevers or chills or cough. Eating. Ambulating. No further diarrhea. Had 2 episodes yesterday. Review of Systems Review of Systems: Negative except as in HPI Physical Exam Physical Exam: General: patient resting comfortably, NAD, non-toxic in appearance, AA&O x 4 Skin: warm, dry, intact, no rashes or lesions HEENT: NC/AT, PERRL, EOMI, anicteric sclera, conjunctiva without injection, external ear normal to inspection and nontender, nares patent, moist mucus membranes, dentition intact, no oropharyngeal lesions, neck supple, trachea midline, no LAD, no thyromegaly, no JVD Heart: +S1/S2, no m/r/g Lungs: equal air entry bilaterally, no rales/rhonchi/wheezes Abd: +BS, soft, Mild epigastric tenderness, no rebound guarding Ext: warm, 2+ pulses in UE/LE bilaterally, no clubbing/cyanosis or edema Neuro: nonfocal, patient AA&O x 4, speech intact, no facial droop, moving all extremities on command with equal strength 5/5 Results & Data Results & Data Vital Signs (Past 12 Hours) Vital Signs Temp Pulse Pulse Resp BP BP Pulse Ox 11/18/24 07:54 36.3 C L 87 20 92/60 L 94 11/18/24 01:12 95 H 11/18/24 00:43 11/18/24 00:43 36.3 C L 90 16 134/87 98 11/18/24 00:30 91 H 20 136/87 94 11/18/24 00:06 91 H 20 110/68 94 O2 Del Method 11/18/24 07:54 Room Air 11/18/24 01:12 11/18/24 00:43 Room Air 11/18/24 00:43 Room Air 11/18/24 00:30 Room Air 11/18/24 00:06 Room Air PG Care Time/CCT Total # of Minutes Spent Total Time Spent with Patient: Total time spent is greater than 50% in coordination of care (as documented) at patient's floor/unit and/or counseling patient: Coding Level of Care Code 36464 SUB INP/OBS CARE 2/35MIN Diagnoses Chest pain R07.9 Chest pain type: unspecified Hyperlipidemia E78.5 Chronic atrial fibrillation I48.20 Diabetes mellitus E11.9 (1) Chest pain Chest pain type: unspecified Qualified Code(s): R07.9 - Chest pain, unspecified
--- NOTE | 2024-11-18 16:57 | XCELERA ---
[id number]
[2024-11-18] MEDS: ACETAMINOPHEN 325 MG TAB PO PRN (20:23)
[2024-11-18] MEDS: METOPROLOL SUCC 25MG EXT REL TAB PO SCH (20:23)
--- NOTE | 2024-11-18 21:59 | Electrocardiogram Report ---
Test Reason : Blood Pressure : */* mmHG Vent. Rate : 109 BPM Atrial Rate : * BPM P-R Int : * ms QRS Dur : 86 ms QT Int : 330 ms P-R-T Axes : * 84 24 degrees QTcB Int : 444 ms Atrial fibrillation with rapid ventricular response Nonspecific ST abnormality Abnormal ECG When compared with ECG of 08-Jul-2024 13:02, Nonspecific T wave abnormality, improved in Inferior leads T wave inversion no longer evident in Anterior leads Confirmed by Franco Ma ([id number]) on 11/18/2024 9:59:04 PM Referred By: REFERRED SELF Confirmed By: Franco Ma
[2024-11-19 07:46] LABS: Alanine Aminotransferase 10.0 U/L (7-52); Alkaline Phosphatase 78.0 U/L (34-104); Bilirubin,Total 0.9 mg/dl (0.2-1.0); Total Protein 5.5 gm/dl (6.0-8.3)
--- NOTE | 2024-11-19 09:26 | Hospitalist Progress Note ---
Date of Service November 19, 2024 Assessment & Plan (1) Chest pain: (2) Hyperlipidemia: (3) Chronic atrial fibrillation: (4) Diabetes mellitus: Plan 84yo male presenting with several episodes of sharp, stabbing chest pain. Workup thus far largely unremarkable #Chest pain Atypical, resolved -Telemetry monitoring EKG nonspecific changes Troponins negative Chest x-ray with bronchitis likely viral. Supportive care. May be etiology of her pain. Lipase 88. He does have mild epigastric Mild tenderness. Mild pancreatitis? Questionable gastritis. Presenting symptoms may be GI related. Close outpatient follow-up with PCP Echo Unrevealing #Ankle pain rule out gout flare Will consider adding colchicine X 1 or short course prednisone PTD #Diarrhea resolved GI PCR negative #FIFI -BiPAP qHS, patient has his own machine #CHF - appears to be compensated -Continue Torsemide 40mg po BID -Continue Metoprolol 75mg po BID #Gout -Continue Allopurinol #Atrial Fibrillation -Continue Apixaban #CKD -Continue Rocaltrol #GERD -Continue Protonix #History of male breast cancer -Continue Tamoxifen DVT prophylaxis Disposition home in 24 hours Admission and Anticipated Discharge Date Admission Date: November 17, 2024 Subjective Left ankle painful today with some pain when attempting to ambulate. He is wondering if He is having a gout flare. On examination of The ankle no notable redness warmth or tenderness PROM or any other abnormalities. X-ray ordered Overall he is doing very well. No chest pain abdominal pain nausea lightheadedness shortness of breath fevers chills or any other symptoms. He tells me he really wants to go home and has a scooter we discussed evaluating the above first with possible discharge today or tomorrow Review of Systems Review of Systems: Negative except as in HPI Physical Exam Physical Exam: General: patient resting comfortably, NAD, non-toxic in appearance, AA&O x 4 Skin: warm, dry, intact, no rashes or lesions HEENT: NC/AT, PERRL, EOMI, anicteric sclera, conjunctiva without injection, external ear normal to inspection and nontender, nares patent, moist mucus membranes, dentition intact, no oropharyngeal lesions, neck supple, trachea midline, no LAD, no thyromegaly, no JVD Heart: +S1/S2, no m/r/g Lungs: equal air entry bilaterally, no rales/rhonchi/wheezes Abd: +BS, soft, Mild epigastric tenderness, no rebound guarding Ext: warm, 2+ pulses in UE/LE bilaterally, no clubbing/cyanosis or edema Neuro: nonfocal, patient AA&O x 4, speech intact, no facial droop, moving all extremities on command with equal strength 5/5 Results & Data Results & Data Vital Signs (Past 12 Hours) Vital Signs Temp Pulse Pulse Resp BP Pulse Ox O2 Del Method 11/19/24 07:47 36.3 C L 73 18 121/79 100 BiPAP 11/19/24 07:16 72 11/19/24 03:53 36.4 C L 67 20 124/83 97 Room Air 11/18/24 23:17 36.9 C 71 20 98/63 L 97 CPAP 11/18/24 21:43 87 PG Care Time/CCT Total # of Minutes Spent Total Time Spent with Patient: Total time spent is greater than 50% in coordination of care (as documented) at patient's floor/unit and/or counseling patient: Coding Level of Care Code 14042 SUB INP/OBS CARE 2/35MIN Diagnoses Chest pain R07.9 Chest pain type: unspecified Hyperlipidemia E78.5 Chronic atrial fibrillation I48.20 Diabetes mellitus E11.9 (1) Chest pain Chest pain type: unspecified Qualified Code(s): R07.9 - Chest pain, unspecified
--- NOTE | 2024-11-19 09:59 | XRay Report ---
LEFT ANKLE 3 VIEWS CLINICAL HISTORY: Left ankle pain. FINDINGS: 3 views of the left ankle are obtained. No prior studies are available for comparison at th e time of dictation. The skeletal structures are osteopenic. No fracture is seen. The ankle mortise i s intact. Soft tissue edema is present throughout the left lower extremity. There are dorsal and plan planetarium technician spurs. Atherosclerotic calcification is noted in the regional arteries. IMPRESSION: 1. Soft tissue swelling with no acute bony abnormality identified. 2. Heel spurs. Electronically signed by: Vargas Perales M.D. 11/19/2024 9:57 AM
[2024-11-19] MEDS: COLCHICINE 0.6 MG TAB PO ONE (14:09)
[2024-11-19] MEDS: LACTATED RINGER'S 500 ML IV ONE (18:25)
[2024-11-19] MEDS: LACTATED RINGER'S 1,000 ML IV SCH (18:25)
[2024-11-19] MEDS: ASPIRIN 81 MG CHEW PO STA (19:17)
[2024-11-19] MEDS: ASPIRIN 81 MG CHEW PO ONE (19:18)
[2024-11-19] MEDS ORDERED: Nursing to Pharmacy Communication SCH (23:45)
[2024-11-20] MEDS: CYCLOBENZAPRINE HCL 10 MG TAB PO PRN (02:17)
[2024-11-20 08:00] LABS: Hematocrit (blood only) 35.2 % (42.0-52.0); Hemoglobin 11.0 g/dl (14.0-18.0); Mean Corpuscular Hemoglobin 28.2 pg (25.0-34.0); Mean Corpuscular Volume 90.3 fL (80.0-100.0); Platelet Count 117 K/uL (130-400); RDW Standard Deviation 49.3 fL (36.4-46.3); Red Blood Count 3.90 M/uL (4.70-6.10); White Blood Count 6.40 K/ul (4.8-10.8)
[2024-11-20 08:10] LABS: Anion Gap 9.0 (3-11); Blood Urea Nitrogen 52.0 mg/dl (6-23); Calcium 8.9 mg/dl (8.6-10.3); Carbon Dioxide 26.0 mmol/L (21-32); Chloride 108.0 mmol/L (98-107); Creatinine Clr Calc Pharmacy 29.8 ml/min; Glucose 119.0 mg/dl (70-99(Fasting)); Potassium 3.1 mmol/L (3.5-5.1); Sodium 143.0 mmol/L (136-145)
--- NOTE | 2024-11-20 10:07 | Hospitalist Progress Note ---
Date of Service November 20, 2024 Assessment & Plan (1) Chest pain: (2) Hyperlipidemia: (3) Chronic atrial fibrillation: (4) Diabetes mellitus: Plan 84yo male presenting with several episodes of sharp, stabbing chest pain. Workup thus far largely unremarkable #Chest pain Atypical, resolved -Telemetry monitoring EKG nonspecific changes Troponins negative Chest x-ray with bronchitis likely viral. Supportive care. May be etiology of her pain. Lipase 88. Mild pancreatitis? doubt lipase significant. Close outpatient follow-up with PCP Echo Unrevealing #Ankle/foot pain rule out soft tissue injury Unable to bear weight MRI ankle/foot PT #Diarrhea resolved GI PCR negative #FIFI -BiPAP qHS, patient has his own machine #CHF - appears to be compensated -Continue Torsemide 40mg po BID -Continue Metoprolol 75mg po BID #Gout -Continue Allopurinol #Atrial Fibrillation -Continue Apixaban #CKD -Continue Rocaltrol #GERD -Continue Protonix #History of male breast cancer -Continue Tamoxifen DVT prophylaxis Disposition home in 24 hours Admission and Anticipated Discharge Date Admission Date: November 17, 2024 Subjective Yesterday BP dropped and developed transient blurry vision. Received IV fluid bolus. He was pending his midodrine at that time and he was given. After that his symptoms resolved and he felt much better.He had no chest pain shortness of breath nausea lightheadedness or any other symptoms at that time. Today morning he is a little tachycardic his beta-trinity was held yesterday Reportedly due to low BP. I discussed with RN at bedside it Has a weak effect on the pressure and therefore we will give him a dose of 25 mg extended release now and continue his regular dose in the evening. Increasing midodrine for low BP Still has notable Left foot/ankle pain and inability to bear weight. Examination of left leg no sign of Gout flare or other abnormality. Obtaining MRI Overall unchanged Review of Systems Review of Systems: Negative except as in HPI Physical Exam Physical Exam: General: patient resting comfortably, NAD, non-toxic in appearance, AA&O x 4 Skin: warm, dry, intact, no rashes or lesions HEENT: NC/AT, PERRL, EOMI, anicteric sclera, conjunctiva without injection, external ear normal to inspection and nontender, nares patent, moist mucus membranes, dentition intact, no oropharyngeal lesions, neck supple, trachea midline, no LAD, no thyromegaly, no JVD Heart: +S1/S2, no m/r/g Lungs: equal air entry bilaterally, no rales/rhonchi/wheezes Abd: +BS, soft, Mild epigastric tenderness, no rebound guarding Ext: warm, 2+ pulses in UE/LE bilaterally, no clubbing/cyanosis or edema Neuro: nonfocal, patient AA&O x 4, speech intact, no facial droop, moving all extremities on command with equal strength 5/5 Results & Data Results & Data Vital Signs (Past 12 Hours) Vital Signs Temp Pulse Pulse Resp BP Pulse Ox O2 Del Method 11/20/24 08:05 36.3 C L 82 16 96/63 L 94 Room Air 11/20/24 07:21 108 H 11/20/24 03:24 37.1 C 91 H 20 117/71 100 CPAP 11/19/24 23:40 36.4 C L 83 20 112/72 98 CPAP 11/19/24 22:19 98/65 L O2 Flow Rate 11/20/24 08:05 11/20/24 07:21 11/20/24 03:24 3 11/19/24 23:40 3 11/19/24 22:19 PG Care Time/CCT Total # of Minutes Spent Total Time Spent with Patient: Total time spent is greater than 50% in coordination of care (as documented) at patient's floor/unit and/or counseling patient: Coding Level of Care Code 62411 SUB INP/OBS CARE 2/35MIN Diagnoses Chest pain R07.9 Chest pain type: unspecified Hyperlipidemia E78.5 Chronic atrial fibrillation I48.20 Diabetes mellitus E11.9 (1) Chest pain Chest pain type: unspecified Qualified Code(s): R07.9 - Chest pain, unspecified
[2024-11-20] MEDS: MIDODRINE HCL 2.5 MG TAB PO ONE (11:05)
[2024-11-20] MEDS ORDERED: METOPROLOL TARTRATE 25 MG TAB PO ONE (12:00)
[2024-11-20] MEDS: POTASSIUM CHLORIDE CRTAB 20 MEQ TABCR PO STA (15:36)
[2024-11-20] MEDS: GADOBUTROL 65ML VIAL IV ONE (17:01)
[2024-11-20] MEDS: MIDODRINE HCL 10 MG TAB PO SCH (17:41)
[2024-11-20] MEDS ORDERED: METOPROLOL SUCC 50MG EXT REL TAB PO SCH (21:00)
[2024-11-20] MEDS: METOPROLOL SUCC 25MG EXT REL TAB PO SCH (21:08)
[2024-11-21 06:34] LABS: Hematocrit (blood only) 37.0 % (42.0-52.0); Hemoglobin 11.4 g/dl (14.0-18.0); Mean Corpuscular Hemoglobin 28.1 pg (25.0-34.0); Mean Corpuscular Volume 91.1 fL (80.0-100.0); Platelet Count 133 K/uL (130-400); RDW Standard Deviation 50.8 fL (36.4-46.3); Red Blood Count 4.06 M/uL (4.70-6.10); White Blood Count 6.24 K/ul (4.8-10.8)
[2024-11-21 07:15] LABS: Anion Gap 5.0 (3-11); Blood Urea Nitrogen 52.0 mg/dl (6-23); Calcium 9.1 mg/dl (8.6-10.3); Carbon Dioxide 32.0 mmol/L (21-32); Chloride 108.0 mmol/L (98-107); Creatinine Clr Calc Pharmacy 24.7 ml/min; Glucose 96.0 mg/dl (70-99(Fasting)); Potassium 3.8 mmol/L (3.5-5.1); Sodium 145.0 mmol/L (136-145)
[2024-11-21 08:27] VITALS: RESP 16
--- NOTE | 2024-11-21 08:56 | Magnetic Resonance Report ---
EXAM: MR foot LT wo/w con CLINICAL HISTORY: Left foot/ankle pain. TECHNIQUE: MRI of the left foot was performed with and without intravenous contrast administration(10.5 cc GADVISST) . Sequences obtained include: Sagittal T1-weighted, Sagittal T2-weighted, Coronal T1-weighted, Coronal T2-weighted, Axial T1-weighted, and Axial T2-weighted. COMPARISON: X-ray done on 11/19/2024 was reviewed. FINDINGS: Soft Tissue: Diffuse subcutaneous and interstitial edema is seen mainly on the dorsal aspect of the foot, with no evidence of enhancing masses or discrete localized collections Bone and joints: No marrow edema or contusions. Mild degenerative changes involve the 1st metatarsophalangeal and different interphalangeal joints, showing small marginal osteophytes and subcortical degenerative cysts. The scanned intertarsal, tibiotalar, subtalar, talonavicular, calcaneocuboid, and other metatarsophalangeal articulations have a normal MRI appearance. Tendons: Normal MRI appearance of the scanned compartmental longitudinal tendons. No evidence of tear. Muscles: The intrinsic plantar musculature of the foot is negative for intramuscular tear or atrophy. Minimal diffuse intra- and intermuscular edema. The visualized neurovascular structures do not reveal any obvious abnormality. Transverse and longitudinal arches of the foot are well maintained. Normal MRI appearance of the plantar fascia with no definite current MRI evidence to suggest plantar fasciitis. IMPRESSION: 1. Diffuse subcutaneous and interstitial edema is seen mainly on the dorsal aspect of the foot, with no evidence of enhancing masses or discrete localized collections. Systemic causes or cellulitis can be considered. 2. No acute bony, articular, or ligamentous abnormality. 3. Mild degenerative changes involve the 1st metatarsophalangeal and different interphalangeal joints. Electronically signed by Farooq Cochran 11-21-2024 08:55 AM
--- NOTE | 2024-11-21 09:16 | Magnetic Resonance Report ---
EXAM: MR ankle LT wo/w con CLINICAL HISTORY: left foot/ankle pain TECHNIQUE: Multiplanar multi-sequential MRI of Left ankle joint was performed without and with IV contrast (10.5CC GADAVIST) administration. COMPARISON: CR dated 11/19/2024 was reviewed. FINDINGS: Bones: No marrow edema/contusion. Tiny degenerative subcortical cysts at the talar dome. Joints: Mild tibio-talar joint effusion is seen. Mild degenerative changes involve the intertarsal joints. Normal appearance of the other ankle joints. Compartmental tendons: Mild fluid signal is seeen surrounding the flexor hallucis longus at the posterior talar process The tibialis posterior, and flexor hallucis and digitorum tendons are unremarkable. The tibialis anterior, extensor digitorum, and extensor hallucis longus are unremarkable. The peroneus longus and brevis are unremarkable. The Achilles tendon is intact in its signal characteristics, and the pre-Achilles fat is clear. Articulations: The articulations of the tibiotalar, posterior subtalar, talonavicular anterior, subtalar, cuboidometatarsal, cuneometatarsal, intertarsal, and tarsometatarsal were unremarkable. Sinus tarsi and plantar fascia: The sinus tarsi are unremarkable. Bony calcaneal spur is seen, the plantar fascia is unremarkable. Ligaments: The deltoid ligament is intact. The calcaneofibular ligament is intact. Intact anterior and posterior talofibular ligament. The intertarsal ligaments are unremarkable. The calcaneocuboid and calcaneonavicular ligament are intact. Intact, intertarsal ligaments. Intact cuneometatarsal ligaments. Intact Lisfranc ligament. Muscles: Normal appearance of the surrounding musculature. No muscle atrophy or abnormal signal changes. Soft Tissues: Diffuse subcutaneous and interstitial edema is seen, no evidence of enhancing masses or collections IMPRESSION: 1. Diffuse subcutaneous and interstitial edema is seen, no evidence of enhancing masses or collections. 2. No acute bony, articular or ligamentous abnormality. 3. Mild degenerative changes involve the intertarsal joints. 4. Mild tibio-talar joint effusion is seen. Electronically signed by Farooq Cochran 11-21-2024 09:16 AM
[2024-11-21 11:40] VITALS: PULSE 96; TEMP 97.9; O2SAT 96
--- NOTE | 2024-11-21 12:00 | Discharge Summary ---
Discharge Summary Date of Service November 21, 2024 Doing really well today really wants to go home. No chest pain shortness of breath or any other symptoms in this regard. He tells me his foot pain is now nearly resolved and he is walking around and bearing weight without any pain or other issues. No PROM. He has an appointment with nephrology this afternoon he does not want to miss. We discussed importance close follow-up and strict return precautions. Will follow-up on his MRI results with his providers. Principal Dx & Hospital Course #1 = Principal Diagnosis (1) Chest pain: (2) Hyperlipidemia: (3) Chronic atrial fibrillation: (4) Diabetes mellitus: Plan 84yo male presenting with several episodes of sharp, stabbing chest pain. Workup thus far largely unremarkable #Chest pain Atypical, resolved -Telemetry monitoring EKG nonspecific changes Troponins negative Chest x-ray with bronchitis likely viral. Supportive care. May be etiology of her pain. Lipase 88. Mild pancreatitis? doubt lipase significant. Close outpatient follow-up with PCP Echo Unrevealing #Ankle/foot pain rule out soft tissue injury Unable to bear weight MRI ankle/foot Nonspecific edema. Clinically no notable findings and now he is bearing weight no issues. Possibly musculoskeletal/ankle strain cause for difficulty weightbearing initially PT #Diarrhea resolved GI PCR negative #FIFI -BiPAP qHS, patient has his own machine #CHF - appears to be compensated -Continue Torsemide 40mg po BID -Continue Metoprolol 75mg po BID #Gout -Continue Allopurinol #Atrial Fibrillation -Continue Apixaban #CKD -Continue Rocaltrol #GERD -Continue Protonix #History of male breast cancer -Continue Tamoxifen DVT prophylaxis Disposition home with home health Admission HPI Per Admitting Provider Kyler Antoine is an 84yo male with history of DM, AF, DM, CKD presenting with chest discomfort. Patient was at the [employer] today - around 18:00 he developed sharp, stabbing left sided chest pain with radiation into his back. Patient's neighbor at the fair is an ER nurse and checked his vital signs - stable, however, given the chest pain she recommended that he come to the ER to get formally checked out. Patient waited a little while then developed worsening chest pain so he decided to come to the ER. Pain is sharp and stabbing, lasting a few seconds. Reoccurred multiple times. Patient felt hot at the time of the pain as well as some shortness of breath. No associated palpitations, dizziness. No leg cramps or unilateral swelling. He did have two episodes of watery diarrhea In the ER patient afebrile, HD stable, mildly tachycardic No additional episodes of chest pain Discharge Exam General: patient resting comfortably, NAD, non-toxic in appearance, AA&O x 4 Skin: warm, dry, intact, no rashes or lesions HEENT: NC/AT, PERRL, EOMI, anicteric sclera, conjunctiva without injection, external ear normal to inspection and nontender, nares patent, moist mucus membranes, dentition intact, no oropharyngeal lesions, neck supple, trachea midline, no LAD, no thyromegaly, no JVD Heart: +S1/S2, no m/r/g Lungs: equal air entry bilaterally, no rales/rhonchi/wheezes Abd: +BS, soft, Mild epigastric tenderness, no rebound guarding Ext: warm, 2+ pulses in UE/LE bilaterally, no clubbing/cyanosis or edema Neuro: nonfocal, patient AA&O x 4, speech intact, no facial droop, moving all extremities on command with equal strength 5/5 Discharge Plan Discharge Items Patient Disposition: Home - Home Health Services Reason For Visit: CHEST PAIN Discharge Diagnosis: Chest pain. Viral bronchitis. Questionable pancreatitis. foot/ankle pain Condition on Discharge: Fair Activity: Resume your previous activity Non-emergency contact: Primary Care Provider and Surgical Technologist Call non-emergency contact if: you have any medication questions, your symptoms worsen and your pain is not controlled Follow-up/Referrals: Zackery Cochran, [Primary Care Provider] - Diet: Carb Consistent or DM2, Heart Healthy and Low Fat Addtl Attending Provider Instructions: Follow-up with your primary care doctor in 3 to 5 days. Follow-up with your primary doctor regarding MRI foot results. There is nonspecific swelling there. However clinically on examination it is unimpressive. Pending Studies at Discharge: No Stand-Alone Forms: My [employer], Smoking Cessation Medications and DC Order Prescriptions: Continued cyanocobalamin (vitamin B-12) 1,000 mcg/mL solution 1,000 mcg IM Q90D Qty: 30 0RF metolazone 5 mg tablet 5 mg PO DAILY PRN (Reason: weight gain) Qty: 30 5RF calcitriol 0.25 mcg capsule 0.5 mcg PO QAM Qty: 180 3RF metoprolol succinate [Toprol XL] 100 mg tablet extended release 24 hr 50 mg PO BID Qty: 90 3RF sertraline 50 mg tablet 50 mg PO QDAY Qty: 30 3RF pantoprazole 40 mg tablet,delayed release (DR/EC) 40 mg PO QAM 90 Days Qty: 90 2RF tamoxifen 20 mg tablet 20 mg PO QAM Qty: 90 1RF ferrous sulfate 324 mg (65 mg iron) tablet,delayed release (DR/EC) 324 mg PO BID 90 Days Qty: 180 3RF magnesium 200 mg tablet 200 mg PO DAILY Qty: 90 3RF potassium chloride 20 mEq tablet,ER particles/crystals 20 meq PO TID 90 Days Qty: 270 3RF cyclobenzaprine 5 mg tablet 5 mg PO BID PRN (Reason: muscle pain/stiffness) Qty: 60 6RF fluticasone propionate 50 mcg/actuation spray,suspension 2 spray intranasal DAILY Qty: 16 8RF Rx Instructions: administer into each nostril allopurinol 100 mg tablet 50 mg PO .EVERY OTHER DAY Qty: 45 3RF tramadol 50 mg tablet 50 mg PO BID PRN (Reason: Pain) Qty: 60 0RF Eliquis 2.5 mg tablet 2.5 mg PO BID Qty: 60 6RF torsemide 40 mg tablet 40 mg PO BID 90 Days Qty: 180 2RF cholecalciferol (vitamin D3) [Vitamin D3] 50 mcg (2,000 unit) Capsule 50 mcg PO DAILY midodrine 10 mg Tablet 10 mg PO TID Rx Instructions: do not give last dose of day after 6PM or within 4 hrs of bedtime (DME) Portable Oxygen Misc See Rx Instructions .Route Rx Instructions: 3 L at night [facility] Admission Data Admit Date/Time: 11/17/24 23:50 Attending Provider: Frantz Alcocer Admit Provider: Nevin Grossman Primary Care Provider: Zackery Cochran Other Providers: Nevin Grossman Hospital Stay Data Consultations 11/17/24 22:54 ED Decision to Admit Stat Diagnostic Imagining Performed 11/20/24 10:05 MR ankle LT wo/w con Urgent MRI Foot [MR foot LT wo/w con] Urgent Pending Results Patient Have Any Pending Studies at Discharge: No Discharge Instructions Given to Patient (Per Discharging Provider) Follow-up with your primary care doctor in 3 to 5 days. Follow-up with your primary doctor regarding MRI foot results. There is nonspecific swelling there. However clinically on examination it is unimpressive. Total Time Total Time Spent Total Time Spent (In Minutes): 35 Coding Level of Care Code 07730 INP/OBS DISCH >30 MIN Diagnoses Chest pain R07.9 Chest pain type: unspecified Hyperlipidemia E78.5 Chronic atrial fibrillation I48.20 Diabetes mellitus E11.9
[2024-11-21 13:27] VITALS: BP 118/75
== END 2024-11-21 13:47 | disposition home or self-care (01) | DRG 202 ==
LOC: ED 21:40 → 2W 21:40 → SUATTDRO 23:50 → 2W 11-18 00:38

== ENCOUNTER 2025-01-31 11:54 | Inpatient (IN) ==
--- NOTE | 2025-01-31 12:55 | Emergency Department Note ---
Impression & Plan Abdominal pain, Hypoxia, Generalized weakness ED Provider Note HISTORY OF PRESENT ILLNESS: Patient is an 84-year-old male presenting with abdominal pain. Patient reports he has been having "extreme" abdominal pain for the last few months. He states that he is followed with gastroenterology and his primary care provider and he was set to get a CT scan but "no one ever called me about it." He states that "I am just sick of waiting at home for doctors offices to call me." He states that he had worsening of pain over the last 5 days. He describes the pain as a constant cramping sensation and occasionally sharp. He denies any fevers or chills. Denies any nausea or vomiting, but does report having diarrhea. He states that for the last 5 days he has been "laying around sleeping because I have no energy." He denies any measured fevers. Denies any dysuria or hematuria. He is currently on oral vancomycin for history of C. difficile. ROS: as above PHYSICAL EXAM: Constitutional: Patient appears in no acute distress. HENT: Head: Normocephalic and atraumatic. Eyes: EOMI, PERRL Mouth/Throat: Mucous membranes moist. Neck: Trachea midline. Neck supple. Cardiovascular: Irregularly irregular rhythm. No murmurs, rubs or gallops. Intact distal pulses. Pulmonary/Chest: No respiratory distress. Breath sounds clear and equal bilaterally. No wheezes or rales. Abdominal: Abdomen soft, no tenderness, rebound or guarding. Musculoskeletal: No tenderness or deformity noted. +2 edema of bilateral lower extremities Skin: Warm and dry. No rash, erythema, pallor or cyanosis Psychiatric: Appropriate mood and affect for situation. Neurological: Alert and keenly responsive. CN II-XII grossly intact, moving all extremities equally and fully. MDM: - Vitals signs showed hypertension and tachycardia. - History obtained via patient. History as above. - Chronic conditions affecting care: CKD; DM-2; HTN; CHF; Afib - Differential diagnoses include, but are not limited to: Bowel obstruction; toxic megacolon; colitis; diverticulitis; ischemic colitis - Order placed for continuous cardiac monitoring. At this time, monitor showed rate of 100 bpm with normal sinus rhythm, per my interpretation. - External medical records reviewed. Primary care visit note dated 01/09/2025 were reviewed. Patient was seen for episodes of shaking. He is conscious during these episodes. Neurology evaluated the patient and reported that it could be psychogenic versus neurodermatitis. - EKG image interpreted by myself showed atrial fibrillation. Rate 85 bpm. QT 398. No acute ischemic changes. - Laboratory workup interpreted by myself showed normal WBC; normal PT/INR; stable electrolytes; CKD (Cr 1.88); normal troponin; normal AST/ALT; normal lipase; normal lactate - UA negative for infection - CT abdomen/pelvis negative for acute pathology in the abdomen/pelvis. Noted to have urinary bladder thickening which could be due to cystitis. Trace pleural effusions. - Patient given 500 cc NS and 50 mcg IV fentanyl in ER. - Patient did have some hypoxia after pain medication administration and was placed on 2 L nasal cannula. - Patient is still complaining of significant abdominal pain. Unclear etiology for symptoms at this time. Though they are chronic and have been ongoing for the last few months. Patient attempted to get up with nursing staff but is very weak and required significant assistance. Will discuss case with hospitalist service. - Discussion was had with case consultant about patient's case and need for admission - Hospitalist consulted for admission - Patient admitted to [facility] hospitalist service for further evaluation and management. ASSESSMENT AND PLAN: Diagnosis: Abdominal pain; hypoxia; generalized weakness Plan: Admit Past Med/Surg History Problem List (Updated 01/31/25 @ 16:36 by Maria Fernanda Amato MD) Generalized weakness (Acute) Hypoxia (Acute) Abdominal pain (Acute) Seizure-like activity Diarrhea Abdominal pain Episode of shaking Nummular neurodermatitis Headache Myoclonus On supplemental oxygen by nasal cannula Abdominal cramping Lumbar radiculopathy, right Scoliosis of lumbar region due to degenerative disease of spine in adult Low back pain radiating to right leg Benign essential tremor Leg weakness, bilateral Dermatitis Anxiety and depression Heart failure with mildly reduced ejection fraction (HFmrEF, 41-49%) Physical deconditioning Acute hypokalemia (Acute) Tremor Back pain, thoracic Hypomagnesemia Hypokalemia Atrial fibrillation with RVR (Acute) Chest pain (Acute) Abnormal CT of the abdomen Chronic anemia Iron deficiency Lower extremity edema Secondary hyperparathyroidism History of aortic valve disease s/p AVR (2006) History of renal cell carcinoma Chronic venous insufficiency (Chronic) Traumatic open wound of right lower leg (Acute) Class 3 severe obesity due to excess calories with body mass index (BMI) of 40.0 to 44.9 in adult Gynecomastia, male Family history of breast cancer gene mutation in first degree relative Left breast lump Nocturnal hypoxemia Complex sleep apnea syndrome Hypertension (Chronic) Hand numbness Foraminal stenosis of cervical region Vitamin D deficiency Anxiety (Acute) Venous insufficiency (chronic) (peripheral) Morbid obesity with BMI of 40.0-44.9, adult Gout Chronic low back pain with right-sided sciatica B12 deficiency Chronic diastolic CHF (congestive heart failure) (Chronic) Hyperlipidemia (Chronic) Medical History (Updated 01/31/25 @ 16:36 by Maria Fernanda Amato MD) Hypoglycemia Hip pain, right Shortness of breath Arm pain Hypokalemia Excessive attrition of teeth, extending into dentine Hypokalemia Wound of right leg Anemia Hemorrhagic shock Weakness generalized Elevated brain natriuretic peptide (BNP) level Elevated troponin Decreased calculated glomerular filtration rate (GFR) Traumatic open wound of left lower leg with delayed healing Fall Hx of gynecomastia Hypermagnesemia Rectal bleed Neck pain Acute blood loss anemia Hypotension Acute GI bleeding Acute gastrointestinal bleeding Bacteremia (HFpEF) heart failure with preserved ejection fraction Chronic atrial fibrillation CRF (chronic renal failure) Anticoagulated Permanent atrial fibrillation with RVR Chronic kidney disease, stage 4 (severe) Atrial fibrillation Congestive heart failure Chronic dental pain Hypotension Chronic renal insufficiency, stage IV (severe) Iron deficiency anemia Obstructive sleep apnea BIPAP Diabetes mellitus Aspiration into respiratory tract Acute kidney injury superimposed on CKD Morbid obesity History of anxiety Hx of gout Hx of rotator cuff tear Difficulty with raising arms without extreme pain, currently in PT Hx of osteoarthritis Hx of impacted cerumen History of COVID-19 01/2021 > "mild" cold symptoms, resolved Prediabetes Kidney stones Hx x7 Renal cell adenocarcinoma s/p nephrectomy Chronic kidney disease, stage III (moderate) CKD (chronic kidney disease), stage III Surgical History History of lumbar laminectomy for spinal cord decompression History of aortic valve replacement with bioprosthetic valve H/O aortic valve replacement Hx of cardiac catheterization History of total bilateral knee replacement History of esophagogastroduodenoscopy (EGD) Hx of colonoscopy Hx of tonsillectomy Hx of cystoscopy History of left nephrectomy History of spinal surgery Aortic valve replaced History of gastric bypass History of cholecystectomy Family History Mother Breast cancer Lung disease Grandmother (Maternal) Breast cancer Aunt Breast cancer Sister Breast cancer Father Myocardial infarction Arthritis Denies family history of Ovarian cancer Prostate cancer Colorectal cancer Social History Smoking Status: Never smoker Second Hand Exposure: Yes (parents); Do You Dip or Chew Tobacco: No; Hx Alcohol Use: No Hx Substance Use: No Preferred Language: German Communication Ability: Effective Visual Impairment: No Limitations Hearing Ability: Normal Mica Layer Required: No Beliefs That Will Affect Care: None marital status: Current Living Situation: Spouse Current Living Situation Comment: home with and son current occupational status: retired 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[employer] Feels Safe at Home: Yes Childhood Exposure to Second-Hand Smoke: Yes Diet: regular caffeine: Yes Dental Care, Regularly: Yes Physical Activity Frequency: Does not Exercise Physical Activity Frequency Comment: Physical activity limited due to medical conditions Seatbelt Use: always Sunscreen Use: No Do you think of yourself as: straight/heterosexual Gender Identity: Male Assistive Devices: CPAP, Glasses, Oxygen - at Night, Raised Toilet Seat and Walker Allergies Allergies Allergy/AdvReac Type Severity Reaction Status Date / Time iron [From Venofer] AdvReac Mild Vomiting Verified 01/11/25 14:46 Iodinated Contrast Media AdvReac Unknown PT ONLY Verified 01/11/25 14:46 [Iodinated Contrast- Oral HAS 1 and IV Dye] KIDNEY, CONTRAINDICATED. Home Meds Home Medications Medication Instructions Recorded Confirmed cholecalciferol (vitamin D3) 50 50 mcg PO DAILY 07/10/22 01/11/25 mcg (2,000 unit) capsule (Vitamin D3) Portable Oxygen 06/03/24 01/11/25 CPAP Machine 11/23/24 01/11/25 triamcinolone acetonide 0.025 % 1 applic topical BID 12/01/24 01/11/25 topical cream Previous Rx's Medication Instructions Recorded cyanocobalamin (vitamin B-12) 1,000 mcg IM Q90D #30 mL 09/23/22 1,000 mcg/mL injection solution metolazone 5 mg tablet 5 mg PO DAILY PRN weight gain #30 10/23/22 tabs calcitriol 0.25 mcg capsule 0.5 mcg (2 x 0.25 mcg) PO QAM #180 04/01/24 caps ferrous sulfate 324 mg (65 mg 324 mg PO BID 90 days #180 tabs 06/03/24 iron) tablet,delayed release magnesium 200 mg tablet 200 mg PO DAILY #90 tabs 06/03/24 potassium chloride 20 mEq 20 meq PO TID 90 days #270 tabs 06/16/24 tablet,extended release(part/cryst) allopurinol 100 mg tablet 50 mg (1/2 x 100 mg) PO .EVERY 07/01/24 OTHER DAY #45 tabs fluticasone propionate 50 2 spray intranasal DAILY #16 grams 07/01/24 mcg/actuation nasal spray,suspension apixaban 2.5 mg tablet (Eliquis) 2.5 mg PO BID #60 tabs 07/15/24 torsemide 40 mg tablet 40 mg PO BID 90 days #180 tabs 10/19/24 sertraline 50 mg tablet 50 mg PO QDAY #30 tabs 11/17/24 midodrine 10 mg tablet 10 mg PO TID #30 tabs 11/23/24 methocarbamol 500 mg tablet 500 mg PO TID #90 tabs 12/01/24 tamoxifen 20 mg tablet 20 mg PO QAM #90 tabs 12/19/24 levetiracetam 250 mg tablet 250 mg PO BID #60 tabs 12/29/24 (Keppra) lorazepam 0.5 mg tablet 0.5 mg PO DAILY PRN anxiety #2 tabs 12/29/24 pantoprazole 40 mg tablet,delayed 40 mg PO BID 90 days #180 tabs 01/11/25 release tramadol 50 mg tablet 50 mg PO BID PRN Pain #60 tabs 01/12/25 vancomycin 125 mg capsule 125 mg PO QID 14 days #56 caps 01/23/25 Results & Data (ED) Vital Signs Vital Signs - 24 hr 01/31/25 11:56 01/31/25 12:24 01/31/25 12:33 Temperature 36.8 C Temperature Source Skin Pulse Rate 108 H 93 H 93 H Pulse Rate [Apical] Pulse Rate from SpO2 Sensor 81 Respiratory Rate 17 26 H Respiratory Effort / Characteristics Non-Labored Spontaneous Respiratory Depth Normal Respiratory Pattern Blood Pressure 155/76 H 125/73 Blood Pressure [Left Arm] Blood Pressure Mean 102 90 Blood Pressure Mean [Left Arm] Pulse Oximetry 98 98 Oxygen Delivery Method Room Air Oxygen Flow Rate Sepsis Recent Fever Within 48 Hours No Sepsis New/Unexplained Change in Mental Status N/A Sepsis Action Taken by Nursing No Action Required 01/31/25 14:20 01/31/25 14:21 01/31/25 14:59 Temperature Temperature Source Pulse Rate Pulse Rate [Apical] 86 Pulse Rate from SpO2 Sensor Respiratory Rate 16 Respiratory Effort / Characteristics Non-Labored Spontaneous Respiratory Depth Normal Respiratory Pattern Regular Blood Pressure Blood Pressure [Left Arm] 129/94 Blood Pressure Mean Blood Pressure Mean [Left Arm] 105 Pulse Oximetry 95 96 88 L Oxygen Delivery Method Room Air Room Air Room Air Oxygen Flow Rate Sepsis Recent Fever Within 48 Hours Sepsis New/Unexplained Change in Mental Status Sepsis Action Taken by Nursing 01/31/25 15:00 Temperature Temperature Source Pulse Rate Pulse Rate [Apical] 102 H Pulse Rate from SpO2 Sensor Respiratory Rate 18 Respiratory Effort / Characteristics Respiratory Depth Normal Respiratory Pattern Blood Pressure Blood Pressure [Left Arm] 132/80 Blood Pressure Mean Blood Pressure Mean [Left Arm] 97 Pulse Oximetry 95 Oxygen Delivery Method Nasal Cannula Oxygen Flow Rate 2 Sepsis Recent Fever Within 48 Hours Sepsis New/Unexplained Change in Mental Status Sepsis Action Taken by Nursing Laboratory Data 01/31/25 12:30 01/31/25 12:30 Lab Results 01/31/25 01/31/25 01/31/25 Range/Units 12:30 12:30 13:34 WBC 6.34 (4.8-10.8) K/ul RBC 4.25 L (4.70-6.10) M/uL Hgb 12.1 L (14.0-18.0) g/dl Hct 37.6 L (42.0-52.0) % MCV 88.5 (80.0-100.0) fL MCH 28.5 (25.0-34.0) pg MCHC 32.2 (32.0-36.0) g/dL RDW Std Deviation 46.5 H (36.4-46.3) fL RDW Coeff of Sarah 14.5 (11.5-14.5) % Plt Count 163 (130-400) K/uL MPV 10.1 (9.4-12.4) fL Immature Gran % (Auto) 0.3 % Neut % (Auto) 78.9 % Lymph % (Auto) 10.3 % Hoke % (Auto) 8.0 % Eos % (Auto) 1.6 % Baso % (Auto) 0.9 % Neut # (Auto) 5.00 (1.40-6.50) K/uL Lymph # (Auto) 0.65 L (1.20-3.40) K/uL Hoke # (Auto) 0.51 (0.11-0.59) K/uL Eos # (Auto) 0.10 (0.00-0.50) K/uL Baso # (Auto) 0.06 (0.00-0.20) K/uL Immature Gran # (Auto) 0.02 (0.01-0.20) K/uL PT 11.9 (9.0-12.0) Seconds INR 1.1 (0.9-1.1) Sodium 142 (136-145) mmol/L Potassium 4.0 (3.5-5.1) mmol/L Chloride 105 (98-107) mmol/L Carbon Dioxide 28 (21-32) mmol/L Anion Gap 9 (3-11) BUN 32 H (6-23) mg/dl Creatinine 1.88 H (0.6-1.4) mg/dl Est Cr Clr Drug Dosing Not Reportable eGFR 35.23 BUN/Creatinine Ratio 17.0 (10-20) Glucose 91 (70-99(Fasting)) mg/dl Lactate (0.4-2.0) mmol/L Calcium 9.4 (8.6-10.3) mg/dl Total Bilirubin 0.9 (0.2-1.0) mg/dl AST 26 (13-39) U/L ALT 10 (7-52) U/L Alkaline Phosphatase 90 (34-104) U/L Troponin I High Sens 15.3 Cancelled (0-20) pg/ml Total Protein 6.6 (6.0-8.3) gm/dl Albumin 3.6 (3.4-5.0) gm/dl Globulin 3.0 (2.5-4.0) gm/dl Albumin/Globulin Ratio 1.2 (0.9-2) Lipase 60 (11-82) U/L Urine Color Yellow Urine Appearance Clear (Clear) Urine pH 7.5 (4.5-7.5) Ur Specific Cropsey 1.007 (1.000-1.030) Urine Protein Negative (Negative) Urine Glucose (UA) Negative (Negative) Urine Ketones Negative (Negative) Urine Blood Negative (Negative) Urine Nitrite Negative (Negative) Urine Bilirubin Negative (Negative) Urine Urobilinogen Negative (Negative) Ur Leukocyte Esterase Negative (Negative) Urine Comment 01/31/25 Range/Units 15:50 WBC (4.8-10.8) K/ul RBC (4.70-6.10) M/uL Hgb (14.0-18.0) g/dl Hct (42.0-52.0) % MCV (80.0-100.0) fL MCH (25.0-34.0) pg MCHC (32.0-36.0) g/dL RDW Std Deviation (36.4-46.3) fL RDW Coeff of Sarah (11.5-14.5) % Plt Count (130-400) K/uL MPV (9.4-12.4) fL Immature Gran % (Auto) % Neut % (Auto) % Lymph % (Auto) % Hoke % (Auto) % Eos % (Auto) % Baso % (Auto) % Neut # (Auto) (1.40-6.50) K/uL Lymph # (Auto) (1.20-3.40) K/uL Hoke # (Auto) (0.11-0.59) K/uL Eos # (Auto) (0.00-0.50) K/uL Baso # (Auto) (0.00-0.20) K/uL Immature Gran # (Auto) (0.01-0.20) K/uL PT (9.0-12.0) Seconds INR (0.9-1.1) Sodium (136-145) mmol/L Potassium (3.5-5.1) mmol/L Chloride (98-107) mmol/L Carbon Dioxide (21-32) mmol/L Anion Gap (3-11) BUN (6-23) mg/dl Creatinine (0.6-1.4) mg/dl Est Cr Clr Drug Dosing eGFR BUN/Creatinine Ratio (10-20) Glucose (70-99(Fasting)) mg/dl Lactate 1.1 (0.4-2.0) mmol/L Calcium (8.6-10.3) mg/dl Total Bilirubin (0.2-1.0) mg/dl AST (13-39) U/L ALT (7-52) U/L Alkaline Phosphatase (34-104) U/L Troponin I High Sens (0-20) pg/ml Total Protein (6.0-8.3) gm/dl Albumin (3.4-5.0) gm/dl Globulin (2.5-4.0) gm/dl Albumin/Globulin Ratio (0.9-2) Lipase (11-82) U/L Urine Color Urine Appearance (Clear) Urine pH (4.5-7.5) Ur Specific Cropsey (1.000-1.030) Urine Protein (Negative) Urine Glucose (UA) (Negative) Urine Ketones (Negative) Urine Blood (Negative) Urine Nitrite (Negative) Urine Bilirubin (Negative) Urine Urobilinogen (Negative) Ur Leukocyte Esterase (Negative) Urine Comment Administered Medications Discontinued Medications Fentanyl Citrate (Fentanyl Citrate Pf 100 Mcg/2 Ml Vial) 50 mcg IV NOW STA Stop: 01/31/25 13:27 Last Admin: 01/31/25 13:30 Dose: 50 mcg Documented By: CHUCK Sodium Chloride (Nss) 1,000 mls @ 999 mls/hr IV .Q1H1M ONE Stop: 01/31/25 14:41 Last Infusion: 01/31/25 15:25 Dose: Infused Documented By: Admin: 01/31/25 14:24 Dose: 999 mls/hr Documented By: CHUCK Ioversol (Optiray 320 100ml) 90 ml IV ONCE ONE Stop: 01/31/25 14:36 Last Admin: 01/31/25 14:36 Dose: 90 ml Documented By: GINA Imaging Data Radiologist's Impression: Abdomen/Pelvis CT 01/31/25 12:[address] WITH IV CONTRAST CT DOSE: 1324.46 mGy.cm HISTORY: Acute lower abdominal pain in a patient with history of prior nephrectomy lower abd pain TECHNIQUE: Multiaxial CT images of the abdomen and pelvis were performed following the IV administration of 90 cc of Optiray, A dose lowering technique was utilized adhering to the principles of ALARA. COMPARISON STUDY: CT abdomen and pelvis 05/14/2024 FINDINGS: Cardiomegaly with aortic and mitral annular calcifications. Small pleural effusions with mild dependent bibasilar subsegmental atelectasis. No pneumatosis or pneumoperitoneum. Unremarkable spleen, pancreas and adrenal glands. Cholecystectomy. Heterogeneity of the liver. Scattered small hypodense foci of the liver again noted, likely cysts. The portal vein appears patent. Right renal cyst measures up to 2.2 cm. No evidence of right-sided hydronephrosis. Prior left nephrectomy. No mass or collection within the nephrectomy bed. Urinary bladder wall thickening with partial distention. Borderline enlarged prostate. Small fat and fluid filled left inguinal hernia. Atherosclerosis of the aorta. No lymphadenopathy. Distal esophageal wall thickening with small hiatal hernia. Prior Juan-en-Y gastric bypass. Duodenal diverticula are noted. Trace free fluid within the dependent pelvis. Mild colonic diverticulosis without acute diverticulitis. The appendix. No acute fracture. Degenerative changes of the spine, pelvis and hips. IMPRESSION: 1. No acute intra-abdominal or intrapelvic abnormality. 2. Urinary bladder wall thickening with partial distention. Correlate with urinalysis. 3. Prior left nephrectomy. 4. Trace pleural effusions with mild bibasilar atelectasis. 5. Additional findings as above. ACT 112: Negative or not required by law. The above report was generated using voice recognition software. It may contain grammatical, syntax or spelling errors. Electronically signed by: Pedro Pablo Goode M.D. 01/31/2025 3:03 PM Discharge Plan Visit Data Chief Complaint: GI Assessment Stated Complaint: GASTRO SENDING, EVALUATION DONE ED Provider: Maria Fernanda Amato Discharge Problem: Abdominal pain, Hypoxia, Generalized weakness Patient Disposition: Admitted As Inpatient Condition: Fair Forms Stand Alone Forms: [facility] Prescriptions Prescriptions: No Action triamcinolone acetonide 0.025 % cream 1 applic topical BID methocarbamol 500 mg tablet 500 mg PO TID Qty: 90 0RF cyanocobalamin (vitamin B-12) 1,000 mcg/mL solution 1,000 mcg IM Q90D Qty: 30 0RF metolazone 5 mg tablet 5 mg PO DAILY PRN (Reason: weight gain) Qty: 30 5RF calcitriol 0.25 mcg capsule 0.5 mcg PO QAM Qty: 180 3RF sertraline 50 mg tablet 50 mg PO QDAY Qty: 30 3RF midodrine 10 mg tablet 10 mg PO TID Qty: 30 0RF Rx Instructions: do not give last dose of day after 6PM or within 4 hrs of bedtime NEW ORDER [facility] PER [facility] BOGG[facility] tamoxifen 20 mg tablet 20 mg PO QAM Qty: 90 1RF tramadol 50 mg tablet 50 mg PO BID PRN (Reason: Pain) Qty: 60 0RF vancomycin 125 mg capsule 125 mg PO QID 14 Days Qty: 56 0RF ferrous sulfate 324 mg (65 mg iron) tablet,delayed release (DR/EC) 324 mg PO BID 90 Days Qty: 180 3RF magnesium 200 mg tablet 200 mg PO DAILY Qty: 90 3RF potassium chloride 20 mEq tablet,ER particles/crystals 20 meq PO TID 90 Days Qty: 270 3RF fluticasone propionate 50 mcg/actuation spray,suspension 2 spray intranasal DAILY Qty: 16 8RF Rx Instructions: administer into each nostril allopurinol 100 mg tablet 50 mg PO .EVERY OTHER DAY Qty: 45 3RF lorazepam 0.5 mg tablet 0.5 mg PO DAILY PRN (Reason: anxiety) Qty: 2 0RF Rx Instructions: take one an hour before MRI; may repeat dose at time of MRI if needed. levetiracetam [Keppra] 250 mg tablet 250 mg PO BID Qty: 60 2RF pantoprazole 40 mg tablet,delayed release (DR/EC) 40 mg PO BID 90 Days Qty: 180 2RF Eliquis 2.5 mg tablet 2.5 mg PO BID Qty: 60 6RF (DME) CPAP Machine Misc See Rx Instructions .Route Rx Instructions: As directed HS- With 02 torsemide 40 mg tablet 40 mg PO BID 90 Days Qty: 180 2RF cholecalciferol (vitamin D3) [Vitamin D3] 50 mcg (2,000 unit) Capsule 50 mcg PO DAILY (DME) Portable Oxygen Misc See Rx Instructions .Route Rx Instructions: 3 L at night nime Referrals Referrals: Zackery Cochran, [Primary Care Provider] -
[2025-01-31 13:00] LABS: Hematocrit (blood only) 37.6 % (42.0-52.0); Hemoglobin 12.1 g/dl (14.0-18.0); Immature Granulocytes # (auto) 0.02 K/uL (0.01-0.20); Immature Granulocytes % (auto) 0.3 %; Mean Corpuscular Hemoglobin 28.5 pg (25.0-34.0); Mean Corpuscular Volume 88.5 fL (80.0-100.0); Platelet Count 163 K/uL (130-400); RDW Standard Deviation 46.5 fL (36.4-46.3); Red Blood Count 4.25 M/uL (4.70-6.10); White Blood Count 6.34 K/ul (4.8-10.8)
[2025-01-31 13:17] LABS: Alanine Aminotransferase 10 U/L (7-52); Albumin Globulin Ratio 1.2 (0.9-2); Albumin Level 3.6 gm/dl (3.4-5.0); Alkaline Phosphatase 90 U/L (34-104); Anion Gap 9 (3-11); Bilirubin,Total 0.9 mg/dl (0.2-1.0); Blood Urea Nitrogen 32 mg/dl (6-23); Calcium 9.4 mg/dl (8.6-10.3); Carbon Dioxide 28 mmol/L (21-32); Chloride 105 mmol/L (98-107); Globulin 3.0 gm/dl (2.5-4.0); Glucose 91 mg/dl (70-99(Fasting)); Lipase 60 U/L (11-82); Potassium 4.0 mmol/L (3.5-5.1); Sodium 142 mmol/L (136-145); Total Protein 6.6 gm/dl (6.0-8.3)
[2025-01-31 13:31] LABS: INR 1.1 (0.9-1.1); Prothrombin Time 11.9 Seconds (9.0-12.0)
[2025-01-31 13:48] LABS: Appearance Urine Clear (Clear); Glucose Urine UA Negative (Negative)
[2025-01-31] MEDS: SODIUM CHLORIDE 0.9% 1,000 ML IV ONE (14:24)
[2025-01-31] MEDS: OPTIRAY 320 100ml IV ONE (14:36)
--- NOTE | 2025-01-31 15:05 | CT Scan Report ---
ABDOMEN AND PELVIS CT WITH IV CONTRAST CT DOSE: 1324.46 mGy.cm HISTORY: Acute lower abdominal pain in a patient with history of prior nephrectomy lower abd pain TECHNIQUE: Multiaxial CT images of the abdomen and pelvis were performed following the IV administrat ion of 90 cc of Optiray, A dose lowering technique was utilized adhering to the principles of ALARA. COMPARISON STUDY: CT abdomen and pelvis 05/14/2024 FINDINGS: Cardiomegaly with aortic and mitral annular calcifications. Small pleural effusions with mi ld dependent bibasilar subsegmental atelectasis. No pneumatosis or pneumoperitoneum. Unremarkable spl een, pancreas and adrenal glands. Cholecystectomy. Heterogeneity of the liver. Scattered small hypode nse foci of the liver again noted, likely cysts. The portal vein appears patent. Right renal cyst measures up to 2.2 cm. No evidence of right-sided hydronephrosis. Prior left nephrec ash. No mass or collection within the nephrectomy bed. Urinary bladder wall thickening with partial distention. Borderline enlarged prostate. Small fat and fluid filled left inguinal hernia. Atheroscle rosis of the aorta. No lymphadenopathy. Distal esophageal wall thickening with small hiatal hernia. P rior Juan-en-Y gastric bypass. Duodenal diverticula are noted. Trace free fluid within the dependent pelvis. Mild colonic diverticulosis without acute diverticulitis. The appendix. No acute fracture. De generative changes of the spine, pelvis and hips. IMPRESSION: 1. No acute intra-abdominal or intrapelvic abnormality. 2. Urinary bladder wall thickening with partial distention. Correlate with urinalysis. 3. Prior left nephrectomy. 4. Trace pleural effusions with mild bibasilar atelectasis. 5. Additional findings as above. ACT 112: Negative or not required by law. The above report was generated using voice recognition software. It may contain grammatical, syntax o r spelling errors. Electronically signed by: Pedro Pablo Goode M.D. 01/31/2025 3:03 PM
--- NOTE | 2025-01-31 18:12 | History & Physical Report ---
Date of Service January 31, 2025 Assessment & Plan (1) Abdominal pain: (2) Seizure-like activity: (3) On supplemental oxygen by nasal cannula: (4) Anxiety and depression: (5) Heart failure with mildly reduced ejection fraction (HFmrEF, 41-49%): (6) Physical deconditioning: (7) CKD (chronic kidney disease), stage III: Plan 84-year-old male with a past medical history of diastolic CHF, dyspnea, bioprosthetic AVR, A-fib,HLD, DM2, morbid obesity, chronic venous insufficiency, and CKD, who is admitted for observation because of deconditioning. #Deconditioning/Weakness: -Admitted to Med/Surg/tele as he is tachycardic on presentation. Has been re cently too weak and been on bed most of the day. Uses walker, crutches on baseline. Admitted because he was too weak to go home. -Continue PT/OT. - He relates his weakness to the abdominal pain and multiple chronic health conditions. -continue PRN analgesics for pain. - Observe and will monitor. #Chronic abdominal pain: - Follows with the car wash supervisor -Ct a/p: Trace pleural effusions with mild bibasilar atelectasis. -Colonoscopy with polypectomy done 05/16 and EGD 05/14 and CTA shows no significant findings. -Status post Juan-en-Y gastric bypass. -Continue Protonix. #HFpEF) heart failure with preserved ejection fraction: -BNP- 726 -Continue Torsemide -Continue Metoprolol. #CKD stage G4/A3 - Baseline Cr - 2.5-3.0 , CR-1.88 -S/p transcatheter MV repair. 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 Renal impairment is on the basis of solitary kidney and microvascular disease #FIFI -BiPAP qHS, patient has his own machine #Atrial Fibrillation -Continue Apixaban #CKD -Continue Rocaltrol #History of male breast cancer -Continue Tamoxifen History of Present Illness Chief Complaint: 84 yrs old male presents to the ED with complaints of weakness and chronic abdominal pain. Since few days he has been laying on the bed most of the time because he feels weak and doesn't have energy to do activities. He uses walker and sometimes wheelchair at home. He reports going to the PT because of it and was doing well with it recently. He has chronic abdominal pain since 7 months now for which he sees car wash supervisor. Reports jerking like episodes which started before the abdominal pain mostly on the upper part of his body for which he sees his neurologist. He doesn't get those jerking episodes while driving and getting distracted on some activities. He has been visiting hospital 9 times since a year for his multiple issues. No H/o loss of consciousness, head injury, syncope, seizure, confusion. Primary Care Provider: Zackery Cochran DO Allergies Allergy/AdvReac Type Severity Reaction Status Date / Time iron [From Venofer] AdvReac Intermediate Vomiting Verified 01/31/25 16:41 Iodinated Contrast Media AdvReac Unknown PT ONLY Verified 01/31/25 16:41 [Iodinated Contrast- Oral HAS 1 and IV Dye] KIDNEY, CONTRAINDICATED. Home Medications Medication Instructions Recorded Confirmed Type cholecalciferol (vitamin D3) 50 50 mcg PO DAILY 07/10/22 01/31/25 History mcg (2,000 unit) capsule (Vitamin D3) metolazone 5 mg tablet 5 mg PO DAILY PRN weight gain #30 10/23/22 01/31/25 Rx tabs calcitriol 0.25 mcg capsule 0.5 mcg (2 x 0.25 mcg) PO QAM #180 04/01/24 01/31/25 Rx caps Portable Oxygen 06/03/24 01/11/25 History ferrous sulfate 324 mg (65 mg 324 mg PO BID 90 days #180 tabs 06/03/24 01/31/25 Rx iron) tablet,delayed release magnesium 200 mg tablet 200 mg PO DAILY #90 tabs 06/03/24 01/31/25 Rx allopurinol 100 mg tablet 50 mg (1/2 x 100 mg) PO .EVERY 07/01/24 01/31/25 Rx OTHER DAY #45 tabs apixaban 2.5 mg tablet (Eliquis) 2.5 mg PO BID #60 tabs 07/15/24 01/31/25 Rx torsemide 40 mg tablet 40 mg PO BID 90 days #180 tabs 10/19/24 01/31/25 Rx CPAP Machine 11/23/24 01/11/25 History midodrine 10 mg tablet 10 mg PO TID #30 tabs 11/23/24 01/31/25 Rx methocarbamol 500 mg tablet 500 mg PO TID #90 tabs 12/01/24 01/31/25 Rx triamcinolone acetonide 0.025 % 1 applic topical BID PRN SKIN 12/01/24 01/31/25 History topical cream IRRITATIONS tamoxifen 20 mg tablet 20 mg PO QAM #90 tabs 12/19/24 01/31/25 Rx levetiracetam 250 mg tablet 250 mg PO BID #60 tabs 12/29/24 01/31/25 Rx (Keppra) pantoprazole 40 mg tablet,delayed 40 mg PO BID 90 days #180 tabs 01/11/25 01/31/25 Rx release tramadol 50 mg tablet 50 mg PO BID PRN Pain #60 tabs 01/12/25 01/31/25 Rx cyanocobalamin (vitamin B-12) 1,000 mcg IM WK 01/31/25 01/31/25 History 1,000 mcg/mL injection solution fluticasone propionate 50 2 spray intranasal DAILY PRN 01/31/25 01/31/25 History mcg/actuation nasal Congestion spray,suspension potassium chloride 20 mEq 20 meq PO BID 01/31/25 01/31/25 History tablet,extended release(part/cryst) sertraline 50 mg tablet 50 mg PO QAM 01/31/25 01/31/25 History Past Med/Surg History Problem List (Updated 01/31/25 @ 16:36 by Maria Fernanda Amato MD) Generalized weakness (Acute) Hypoxia (Acute) Abdominal pain (Acute) Seizure-like activity Diarrhea Abdominal pain Episode of shaking Nummular neurodermatitis Headache Myoclonus On supplemental oxygen by nasal cannula Abdominal cramping Lumbar radiculopathy, right Scoliosis of lumbar region due to degenerative disease of spine in adult Low back pain radiating to right leg Benign essential tremor Leg weakness, bilateral Dermatitis Anxiety and depression Heart failure with mildly reduced ejection fraction (HFmrEF, 41-49%) Physical deconditioning Acute hypokalemia (Acute) Tremor Back pain, thoracic Hypomagnesemia Hypokalemia Atrial fibrillation with RVR (Acute) Chest pain (Acute) Abnormal CT of the abdomen Chronic anemia Iron deficiency Lower extremity edema Secondary hyperparathyroidism History of aortic valve disease s/p AVR (2006) History of renal cell carcinoma Chronic venous insufficiency (Chronic) Traumatic open wound of right lower leg (Acute) Class 3 severe obesity due to excess calories with body mass index (BMI) of 40.0 to 44.9 in adult Gynecomastia, male Family history of breast cancer gene mutation in first degree relative Left breast lump Nocturnal hypoxemia Complex sleep apnea syndrome Hypertension (Chronic) Hand numbness Foraminal stenosis of cervical region Vitamin D deficiency Anxiety (Acute) Venous insufficiency (chronic) (peripheral) Morbid obesity with BMI of 40.0-44.9, adult Gout Chronic low back pain with right-sided sciatica B12 deficiency Chronic diastolic CHF (congestive heart failure) (Chronic) Hyperlipidemia (Chronic) Medical History (Updated 01/31/25 @ 16:36 by Maria Fernanda Amato MD) Hypoglycemia Hip pain, right Shortness of breath Arm pain Hypokalemia Excessive attrition of teeth, extending into dentine Hypokalemia Wound of right leg Anemia Hemorrhagic shock Weakness generalized Elevated brain natriuretic peptide (BNP) level Elevated troponin Decreased calculated glomerular filtration rate (GFR) Traumatic open wound of left lower leg with delayed healing Fall Hx of gynecomastia Hypermagnesemia Rectal bleed Neck pain Acute blood loss anemia Hypotension Acute GI bleeding Acute gastrointestinal bleeding Bacteremia (HFpEF) heart failure with preserved ejection fraction Chronic atrial fibrillation CRF (chronic renal failure) Anticoagulated Permanent atrial fibrillation with RVR Chronic kidney disease, stage 4 (severe) Atrial fibrillation Congestive heart failure Chronic dental pain Hypotension Chronic renal insufficiency, stage IV (severe) Iron deficiency anemia Obstructive sleep apnea BIPAP Diabetes mellitus Aspiration into respiratory tract Acute kidney injury superimposed on CKD Morbid obesity History of anxiety Hx of gout Hx of rotator cuff tear Difficulty with raising arms without extreme pain, currently in PT Hx of osteoarthritis Hx of impacted cerumen History of COVID-19 01/2021 > "mild" cold symptoms, resolved Prediabetes Kidney stones Hx x7 Renal cell adenocarcinoma s/p nephrectomy Chronic kidney disease, stage III (moderate) CKD (chronic kidney disease), stage III Surgical History History of lumbar laminectomy for spinal cord decompression History of aortic valve replacement with bioprosthetic valve H/O aortic valve replacement Hx of cardiac catheterization History of total bilateral knee replacement History of esophagogastroduodenoscopy (EGD) Hx of colonoscopy Hx of tonsillectomy Hx of cystoscopy History of left nephrectomy History of spinal surgery Aortic valve replaced History of gastric bypass History of cholecystectomy Family History Mother Breast cancer Lung disease Grandmother (Maternal) Breast cancer Aunt Breast cancer Sister Breast cancer Father Myocardial infarction Arthritis Denies family history of Ovarian cancer Prostate cancer Colorectal cancer Social History Smoking Status: Never smoker Second Hand Exposure: Yes (parents); Do You Dip or Chew Tobacco: No; Hx Alcohol Use: No Hx Substance Use: No Preferred Language: Cuban Communication Ability: Effective Visual Impairment: No Limitations Hearing Ability: Normal Salesperson Furs Required: No Beliefs That Will Affect Care: None marital status: Current Living Situation: Spouse Current Living Situation Comment: Home with and son current occupational status: retired 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 Physical Exam Constitutional: WD/WN, vitals as above Respiratory: normal respiratory effort, lungs clear to auscultation Cardiovascular: Rate/Rhythm: regular rate and regular rhythm Gastrointestinal (Abdomen): normal bowel sounds, soft, nontender, no hepatosplenomegaly Musculoskeletal: he uses a walker Skin: circular lesions on his stomach and chest. Neurologic: full body tremors that come and go. seem to stop when he is talking. Psychiatric: Orientation: alert and oriented x 3 Affect: euthymic affect Results & Data Results & Data Vital Signs (Past 12 Hours) Vital Signs Temp Pulse Pulse Resp BP BP Pulse Ox 01/31/25 17:03 101 H 01/31/25 16:30 105 H 18 122/86 97 01/31/25 15:00 102 H 18 132/80 95 01/31/25 14:59 88 L 01/31/25 14:21 96 01/31/25 14:20 86 16 129/94 95 01/31/25 12:33 93 H 26 H 125/73 98 01/31/25 12:24 93 H 01/31/25 11:56 36.8 C 108 H 17 155/76 H 98 O2 Del Method O2 Flow Rate 01/31/25 17:03 01/31/25 16:30 Nasal Cannula 2 01/31/25 15:00 Nasal Cannula 2 01/31/25 14:59 Room Air 01/31/25 14:21 Room Air 01/31/25 14:20 Room Air 01/31/25 12:33 01/31/25 12:24 01/31/25 11:56 Room Air Code Status & VTE Plan VTE Prophylaxis Plan VTE Prophylaxis will be ordered: No Reason for no VTE drug order: Treatment not indicated Supervising Physician Co-Signing Physician Notes I personally examined the patient and verified all jeronimo points of history and exam, discussed case, and agree with decision making with Dr Tobin Abdominal spasms. First onset about 7-8 months ago. He does not remember what initially seem to trigger these. Now he notes that he gets episodes very frequentlyfrequency seems to be somewhere in the neighborhood of daily or more. Episodes have spontaneous onset, last often 4 hours, and usually spontaneous resolution. The episodes themselves are a stereotyped rhythmic contraction of his abdominal wall that bobs his body [id number]. He does not have nausea vomiting or diarrhea with it, it does not feel like it is internal/intestinal/gastric is much as it feels like it is abdominal wall. He notes that sometimes with rapid shallow breathing he can bring the spasms to a standstill for 20seconds or so, but then as soon as he is breathing normally they start back up again. Conversely he notes deep breathing seems to make them worse. No clear trigger for causing the episodes. While initially he wonders whenever asked about food about abdominal pain after eating, as he describes it it sounds like a totally different symptom complex, and as we walked through the symptoms together, it sounds like he does not have any symptoms triggered by eating. Has had diarrhea, but he has also had C. difficile. Separately lots of abdominal wall skin lesionsthey appear to be shallow ulcerations and are quite itchy. Vitals noted, in general he is awake and alert pleasant no distress. HEENT normocephalic atraumatic mucous membranes moist. Breathing unlabored no accessory muscle use good effort. Skin without rashes pallor or icterus. Abd omen is soft nondistended nontender no masses organomegaly. Skin on his abdominal wall has been numerous shallow ulcerations that are somewhat nonspecific but most consistent with scabies. He has a few small lesions on the back of his hand, but no burrows between the finger webs that I am able to notice. He does start to have an episode of his abdominal spasms while I am in the room, and it does appear to be a rhythmic contraction of his entire abdominal wall at about 2 contractions per secondfairly stereotyped, fairly rhythmic. It does seem to be a bit distractible. He is nontender while this going on. Abdominal wall spasmsseems to be some semblance of functional neuromuscular. Follow. Reviewed with neurology. Supportive care/reassurance/distraction techniques/work on what may trigger this and what may aborted faster. Does not appear to be a GI/intestinal process at play (follow his p.o. intake to be sure) skin lesionspruritic, not entirely consistent with scabies but also not inconsistent with scabies. Discussed empiric treatment. Will do permethrin tonight. Can start topical steroids tomorrow after the permethrin has been washed off. C. difficile colitiscontinue treatment DVT prophylaxisanticoagulated Resident Activity Tracking Resident Involvement: Resident Care Provided Care Provided: Adult Hospital Medicine
[2025-01-31] MEDS ORDERED: ACETAMINOPHEN 325 MG TAB PO PRN (19:30)
[2025-01-31] MEDS ORDERED: POLYETHYLENE (MIRALAX) 17 GM PACK PO PRN (19:30)
[2025-01-31] MEDS ORDERED: ONDANSETRON INJ 2 MG/ML 2 ML VIAL IV PRN (19:30)
[2025-01-31] MEDS ORDERED: ALUMINUM/MAGNESIUM SUSP 30 ML UDC PO PRN (19:30)
[2025-01-31] MEDS ORDERED: MELATONIN 3 MG TAB PO PRN (19:30)
[2025-01-31] MEDS ORDERED: ZOLPIDEM TARTRATE 5 MG TAB PO PRN (19:30)
--- NOTE | 2025-01-31 19:34 | Billing Data ---
Date of Service January 31, 2025 Coding Level of Care Code 02056 INT INP/OBS CARE
[2025-01-31 19:42] LABS: Creatine Kinase 28 U/L (30-223)
[2025-01-31] MEDS: levETIRAcetam 250 MG TAB PO SCH (20:39)
[2025-01-31] MEDS: MIDODRINE HCL 10 MG TAB PO SCH (20:39)
[2025-01-31] MEDS: APIXABAN 2.5 MG TAB PO SCH (20:39)
[2025-01-31] MEDS: POTASSIUM CHLORIDE CRTAB 20 MEQ TABCR PO SCH (20:39)
[2025-01-31] MEDS: PERMETHRIN 5% CR 60 GM TUBE EXT ONE (20:39)
[2025-01-31] MEDS: TORSEMIDE 20 MG TAB PO SCH (20:40)
[2025-01-31] MEDS: METHOCARBAMOL 500 MG TABLET PO SCH (20:40)
[2025-02-01] MEDS: SERTRALINE HCL 50 MG TABLET PO SCH (08:07)
[2025-02-01] MEDS: TAMOXIFEN CITRATE 10 MG TABLET PO SCH (08:12)
[2025-02-01 08:17] LABS: Hematocrit (blood only) 37.6 % (42.0-52.0); Hemoglobin 11.8 g/dl (14.0-18.0); Immature Granulocytes # (auto) 0.02 K/uL (0.01-0.20); Immature Granulocytes % (auto) 0.3 %; Mean Corpuscular Hemoglobin 28.0 pg (25.0-34.0); Mean Corpuscular Volume 89.1 fL (80.0-100.0); Platelet Count 155 K/uL (130-400); RDW Standard Deviation 47.9 fL (36.4-46.3); Red Blood Count 4.22 M/uL (4.70-6.10); White Blood Count 6.17 K/ul (4.8-10.8)
[2025-02-01 08:46] LABS: Alanine Aminotransferase 9.0 U/L (7-52); Albumin Globulin Ratio 1.3 (0.9-2); Albumin Level 3.4 gm/dl (3.4-5.0); Alkaline Phosphatase 82.0 U/L (34-104); Anion Gap 7.0 (3-11); Bilirubin,Total 0.9 mg/dl (0.2-1.0); Blood Urea Nitrogen 30.0 mg/dl (6-23); Calcium 9.1 mg/dl (8.6-10.3); Carbon Dioxide 31.0 mmol/L (21-32); Chloride 107.0 mmol/L (98-107); Creatinine Clr Calc Pharmacy 31.7 ml/min; Globulin 2.7 gm/dl (2.5-4.0); Glucose 95.0 mg/dl (70-99(Fasting)); Magnesium 2.1 mg/dl (1.7-2.4); Potassium 3.6 mmol/L (3.5-5.1); Sodium 145.0 mmol/L (136-145); Total Protein 6.1 gm/dl (6.0-8.3)
[2025-02-01] MEDS: VANCOMYCIN HCL 125 MG CAP PO SCH (11:18)
--- NOTE | 2025-02-01 12:29 | Electrocardiogram Report ---
Test Reason : Blood Pressure : */* mmHG Vent. Rate : 85 BPM Atrial Rate : * BPM P-R Int : * ms QRS Dur : 86 ms QT Int : 398 ms P-R-T Axes : * 60 -13 degrees QTcB Int : 473 ms Atrial fibrillation with premature ventricular or aberrantly conducted complexes Nonspecific ST and T wave abnormality Abnormal ECG When compared with ECG of 20-Nov-2024 08:00, (unconfirmed) No significant change was found Confirmed by Gilmer Sanchez ([id number]) on 02/01/2025 12:28:54 PM Referred By: REFERRED SELF Confirmed By: Gilmer Sanchez
[2025-02-01] MEDS: MoRPHine SULFATE 4 MG/ML 1 ML CARP\\VIAL IV PRN (12:37)
[2025-02-01] MEDS ORDERED: LORazepam 0.5 MG TAB PO STA (12:51)
--- NOTE | 2025-02-01 16:03 | Hospitalist Progress Note ---
Date of Service February 01, 2025 Assessment & Plan (1) Abdominal pain: (2) Seizure-like activity: (3) On supplemental oxygen by nasal cannula: (4) Anxiety and depression: (5) Heart failure with mildly reduced ejection fraction (HFmrEF, 41-49%): (6) Physical deconditioning: (7) CKD (chronic kidney disease), stage III: Plan 84-year-old male with a past medical history of diastolic CHF, dyspnea, bioprosthetic AVR, A-fib,HLD, DM2, morbid obesity, chronic venous insufficiency, and CKD, who is admitted for observation because of deconditioning with chronic abdominal pain. #Deconditioning/Weakness: -Admitted to Med/Surg/tele as he is tachycardic on presentation. Has been recently too weak and been on bed most of the day. Uses walker, crutches on baseline. Admitted because he was too weak to go home. -Continue PT/OT. - He relates his weakness to the abdominal pain and multiple chronic health conditions. -continue PRN analgesics for pain. - Observe and will monitor. #Chronic abdominal pain with jerking movement: - Spastic abdominal pain which are kind of constant a/w jerking movement of upper part of the body. Possibly neurologic involvement. 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 - Follows with the research laboratory technician and neurologist. -Ct a/p: Trace pleural effusions with mild bibasilar atelectasis. -Colonoscopy with polypectomy done 05/16 and EGD 05/14 and CTA shows no significant findings. -EEG on 01/27 shows no seizure. -Status post Juan-en-Y gastric bypass. -Continue Protonix. #HFpEF) heart failure with preserved ejection fraction: -BNP- 726 -Continue Torsemide -Continue Metoprolol. #CKD stage G4/A3 - Baseline Cr - 2.5-3.0 , CR-1.97 -S/p transcatheter MV repair. 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 Renal impairment is on the basis of solitary kidney and microvascular disease #FIFI -BiPAP qHS, patient has his own machine #Atrial Fibrillation -Continue Apixaban #CKD -Continue Rocaltrol #History of male breast cancer -Continue Tamoxifen Admission and Anticipated Discharge Date Admission Date: February 01, 2025 Supervising Physician Co-Signing Physician Notes I personally examined the patient and verified all jeronimo points of history and exam, discussed case, and agree with decision making with Dr Tobin Had another episode of abdominal spasmsfairly spontaneous onset. No other acute complaints. Vitals noted, in general he is resting comfortably in bed and at times alternates between appearing in no distress and at times having a degree of what appears to be almost more of an upper body tremor that may be centers on his abdomen. With my hand on his abdomen I do not necessarily feel discrete abdominal wall spasms as much is it is just that his whole upper body is moving. Breathing unlabored no accessory muscle use good effort. Skin without rashes pallor or icterus. Neuro without focal deficits. Abdominal wall spasmsseems to be some semblance of functional neuromuscular. And getting more suspicious it is an offshoot of his anxiety/PTSD. Neurology did consider C-spine and T-spine MRIs, and while I highly doubt there is a demyelinating process/etc. at play, it seems reasonable to check MRIs to rule out even occult neurologic processes to allow for better discussions with patient on the likely etiology and then therefore treatment plan. skin lesionspruritic, not entirely consistent with scabies but also not inconsistent with scabies. Discussed empiric treatment. Utilize topical steroids for itching. It also also may be psychogenic C. difficile colitiscontinue treatment DVT prophylaxisanticoagulated Subjective Patient lying on bed and reports having improved weakness. Abdominal spasms with jerking of his upper part of body is the same . Afternoon around 1pm, he was not easily responsive when called out by nurse. Review of Systems Review of Systems: As per HPI. Physical Exam Constitutional: WD/WN, vitals as above Respiratory: normal respiratory effort, lungs clear to auscultation Cardiovascular: Rate/Rhythm: regular rate and regular rhythm Gastrointestinal (Abdomen): normal bowel sounds, soft, nontender, no hepatosplenomegaly Psychiatric: Orientation: alert and oriented x 3 Affect: euthymic affect Results & Data Results & Data Vital Signs (Past 12 Hours) Vital Signs Temp Pulse Pulse Resp BP Pulse Ox O2 Del Method 02/01/25 15:09 36.3 C L 92 H 18 110/68 99 CPAP 02/01/25 14:32 80 02/01/25 11:13 36.6 C 125 H 18 91/60 L 97 Room Air 02/01/25 08:00 Room Air 02/01/25 07:48 73 02/01/25 07:39 36.4 C L 77 18 113/63 90 Room Air Resident Activity Tracking Resident Involvement: Resident Care Provided Care Provided: Adult Hospital Medicine
[2025-02-01] MEDS: CLOBETASOL PROPIONATE 0.05% OINT 15 GM TUBE EXT SCH (17:11)
--- NOTE | 2025-02-01 17:50 | Billing Data ---
Date of Service February 01, 2025 Coding Level of Care Code 07205 SUB INP/OBS CARE
[2025-02-02 06:37] LABS: Hematocrit (blood only) 39.5 % (42.0-52.0); Hemoglobin 12.6 g/dl (14.0-18.0); Immature Granulocytes # (auto) 0.04 K/uL (0.01-0.20); Immature Granulocytes % (auto) 0.6 %; Mean Corpuscular Hemoglobin 28.3 pg (25.0-34.0); Mean Corpuscular Volume 88.8 fL (80.0-100.0); Platelet Count 165 K/uL (130-400); RDW Standard Deviation 47.7 fL (36.4-46.3); Red Blood Count 4.45 M/uL (4.70-6.10); White Blood Count 6.81 K/ul (4.8-10.8)
[2025-02-02 07:10] LABS: Anion Gap 10.0 (3-11); Blood Urea Nitrogen 33.0 mg/dl (6-23); Calcium 9.3 mg/dl (8.6-10.3); Carbon Dioxide 30.0 mmol/L (21-32); Chloride 106.0 mmol/L (98-107); Creatinine Clr Calc Pharmacy 27.6 ml/min; Potassium 3.5 mmol/L (3.5-5.1); Sodium 146.0 mmol/L (136-145)
--- NOTE | 2025-02-02 11:40 | Hospitalist Progress Note ---
Date of Service February 02, 2025 Assessment & Plan (1) Abdominal pain: (2) Seizure-like activity: (3) On supplemental oxygen by nasal cannula: (4) Anxiety and depression: (5) Heart failure with mildly reduced ejection fraction (HFmrEF, 41-49%): (6) Physical deconditioning: (7) CKD (chronic kidney disease), stage III: Plan 84-year-old male with a past medical history of diastolic CHF, dyspnea, bioprosthetic AVR, A-fib,HLD, DM2, morbid obesity, chronic venous insufficiency, and CKD, who is admitted for observation because of deconditioning with chronic abdominal pain. #Deconditioning/Weakness: -Admitted to Med/Surg/tele as he is tachycardic on presentation. Has been recently too weak and been on bed most of the day. Uses walker, crutches on baseline. Admitted because he was too weak to go home. -Continue PT/OT. - He relates his weakness to the abdominal pain and multiple chronic health conditions. -continue PRN analgesics for pain. - Reports needs one more day to be able to make to home. Plan for discharge home tomorrow. #Chronic abdominal pain with jerking movement: - Spastic abdominal pain which are kind of constant a/w jerking movement of upper part of the body. Possibly neurologic involvement. 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 - Follows with the fabrication and layout craftsman and neurologist. -Ct a/p: Trace pleural effusions with mild bibasilar atelectasis. -Colonoscopy with polypectomy done 05/16 and EGD 05/14 and CTA shows no significant findings. -EEG on 01/27 shows no seizure. -Status post Juan-en-Y gastric bypass. -Continue Protonix. -Plan was to test MRI spine to r/o demyelinating disorder but cancelled because of skin lesions. Although we highly doubt there would be any significant findings, would still recommend so that there wouldn't be any remaining investigations for his disorder and it would help the patient concentrating on the other possible cause which looks like to be anxiety related. #Anxiety and depression: -Patient does report he has increase in anxiety and low mood recently because of his multiple chronic health conditions which is agreed by his too. - Continue Sertaline. - The chronic abdominal spasm with jerking of the upper body possibly would benefit from the psychiatric management. Would recommend referral to psychiatrist and stress management. #HFpEF) heart failure with preserved ejection fraction: -BNP- 726 -Continue Torsemide -Started Metoprolol today as he was tachy overnight. #CKD stage G4/A3 - Baseline Cr - 2.5-3.0 , CR-1.97 -S/p transcatheter MV repair. 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 Renal impairment is on the basis of solitary kidney and microvascular disease #FIFI -BiPAP qHS, patient has his own machine #Atrial Fibrillation -Continue Apixaban #CKD -Continue Rocaltrol #History of male breast cancer -Continue Tamoxifen Admission and Anticipated Discharge Date Admission Date: February 01, 2025 Supervising Physician Co-Signing Physician Notes I personally examined the patient and verified all jeronimo points of history and exam, discussed case, and agree with decision making with Dr Tobin feelkiel about the same. Vitals noted, in general he is resting comfortably in bed and at times alternates between appearing in no distress and at times having a degree of what appears to be almost more of an upper body tremor that may be centers on his abdomen. Breathing unlabored no accessory muscle use good effort. Skin without pallor or icterus. Neuro without focal deficits. Abdominal wall spasmsseems to be some semblance of functional neuromuscular. unable to get C-spine and T-spine MRIs right now due to having treated for possible scabiesbut discussed with patient I highly doubt these will be of yield, and we will ask for them to be scheduled as an outpatient. Discussed with patient in depth about my main working diagnosis that these are essentially an offshoot of his anxiety/PTSD, and essentially a "neuromuscular panic attack"he expresses a good understanding of this, and we Segway immediately into discussion of better overall management of his anxietyincluding some form of "talk therapy" (he is not at all opposed) as well as self management skills for stress. skin lesionspruritic, not entirely consistent with scabies but also not inconsistent with scabies. Discussed empiric treatment. Utilize topical steroids for itching. It also also may be psychogenic. Follow periodically C. difficile colitiscontinue treatment DVT prophylaxisanticoagulated hopefully home soon. Subjective Patient lying on bed sleeping on presentation with continued abdominal spasm but when he's talking or getting distracted it seems to resolve. Reports having improved weakness. Review of Systems Review of Systems: As per HPI. Physical Exam Constitutional: WD/WN, vitals as above Respiratory: normal respiratory effort, lungs clear to auscultation Cardiovascular: Rate/Rhythm: regular rate and regular rhythm Gastrointestinal (Abdomen): normal bowel sounds, soft, nontender, no hepatosplenomegaly Psychiatric: Orientation: alert and oriented x 3 Affect: euthymic affect Results & Data Results & Data Vital Signs (Past 12 Hours) Vital Signs Temp Pulse Pulse Resp BP Pulse Ox O2 Del Method 02/02/25 11:00 36.5 C 96 H 20 116/80 90 Room Air 02/02/25 08:08 Room Air, CPAP 02/02/25 07:57 76 19 119/72 99 Room Air 02/02/25 07:00 79 02/02/25 03:26 36.6 C 88 18 111/68 92 CPAP O2 Flow Rate 02/02/25 11:00 02/02/25 08:08 3 02/02/25 07:57 02/02/25 07:00 02/02/25 03:26 Resident Activity Tracking Resident Involvement: Resident Care Provided Care Provided: Adult Hospital Medicine
--- NOTE | 2025-02-02 13:08 | Billing Data ---
Date of Service February 02, 2025 Coding Level of Care Code 48405 SUB INP/OBS CARE
--- NOTE | 2025-02-02 13:10 | Billing Data ---
Date of Service February 02, 2025 Coding Level of Care Code 41988 SUB INP/OBS CARE
[2025-02-02] MEDS: TRIAMCINOLONE ACET 0.1% CR 80 GM TUBE EXT PRN (20:29)
[2025-02-03 08:25] LABS: Hematocrit (blood only) 39.7 % (42.0-52.0); Hemoglobin 12.4 g/dl (14.0-18.0); Immature Granulocytes # (auto) 0.05 K/uL (0.01-0.20); Immature Granulocytes % (auto) 0.7 %; Mean Corpuscular Hemoglobin 27.7 pg (25.0-34.0); Mean Corpuscular Volume 88.8 fL (80.0-100.0); Platelet Count 186 K/uL (130-400); RDW Standard Deviation 47.3 fL (36.4-46.3); Red Blood Count 4.47 M/uL (4.70-6.10); White Blood Count 7.38 K/ul (4.8-10.8)
[2025-02-03 08:47] LABS: Anion Gap 9.0 (3-11); Blood Urea Nitrogen 38.0 mg/dl (6-23); Calcium 9.4 mg/dl (8.6-10.3); Carbon Dioxide 30.0 mmol/L (21-32); Chloride 106.0 mmol/L (98-107); Creatinine Clr Calc Pharmacy 26.6 ml/min; Potassium 3.7 mmol/L (3.5-5.1); Sodium 145.0 mmol/L (136-145)
[2025-02-03 08:52] VITALS: BP 104/66; PULSE 78; RESP 17; TEMP 98.1; O2SAT 97
[2025-02-03] MEDS: METOPROLOL SUCC 25MG EXT REL TAB PO SCH (10:25)
--- NOTE | 2025-02-03 14:01 | Discharge Summary ---
Date of Service February 03, 2025 Admission HPI Per Admitting Provider 84 yrs old male presents to the ED with complaints of weakness and chronic abdominal pain. Since few days he has been laying on the bed most of the time because he feels weak and doesn't have energy to do activities. He uses walker and sometimes wheelchair at home. He reports going to the PT because of it and was doing well with it recently. He has chronic abdominal pain since 7 months now for which he sees licensed nurse practitioner. Reports jerking like episodes which started before the abdominal pain mostly on the upper part of his body for which he sees his neurologist. He doesn't get those jerking episodes while driving and getting distracted on some activities. He has been visiting hospital 9 times since a year for his multiple issues. No H/o loss of consciousness, head injury, syncope, seizure, confusion. Admission Exam Per Admitting Provider Constitutional: WD/WN, vitals as above Respiratory: normal respiratory effort, lungs clear to auscultation Cardiovascular: Rate/Rhythm: regular rate and regular rhythm Gastrointestinal (Abdomen): normal bowel sounds, soft, nontender, no hepatosplenomegaly Musculoskeletal: he uses a walker Skin: circular lesions on his stomach and chest. Neurologic: full body tremors that come and go. seem to stop when he is talking. Psychiatric: Orientation: alert and oriented x 3 Affect: euthymic affect Principal Diagnosis Deconditioning Discharge Exam Constitutional WD/WN, vitals as above Respiratory normal respiratory effort, lungs clear to auscultation Cardiovascular Rate/Rhythm: regular rate and regular rhythm Gastrointestinal (Abdomen) normal bowel sounds, soft, nontender, no hepatosplenomegaly Psychiatric Orientation: alert and oriented x 3 Affect: euthymic affect Discharge Data Allergies Allergy/AdvReac Type Severity Reaction Status Date / Time iron [From Venofer] AdvReac Intermediate Vomiting Verified 01/31/25 16:41 Iodinated Contrast Media AdvReac Unknown PT ONLY Verified 01/31/25 16:41 [Iodinated Contrast- Oral HAS 1 and IV Dye] KIDNEY, CONTRAINDICATED. Consultations 01/31/25 16:08 ED Decision to Admit Stat Ordered Studies 01/31/25 12:36 CT abd pelvis IV con only Stat Hospital Course (1) Abdominal pain: (2) Seizure-like activity: (3) On supplemental oxygen by nasal cannula: (4) Anxiety and depression: (5) Heart failure with mildly reduced ejection fraction (HFmrEF, 41-49%): (6) Physical deconditioning: (7) CKD (chronic kidney disease), stage III: Plan 84-year-old male with a past medical history of diastolic CHF, dyspnea, bioprosthetic AVR, A-fib,HLD, DM2, morbid obesity, chronic venous insufficiency, and CKD, who is admitted for observation because of deconditioning with chronic abdominal pain. #Deconditioning/Weakness: -Admitted to Med/Surg/tele as he is tachycardic on presentation. Has been recently too weak and been on bed most of the day. Uses walker, crutches on baseline. Admitted because he was too weak to go home. -Continue PT/OT. - He relates his weakness to the abdominal pain and multiple chronic health conditions. - continue PRN analgesics for pain. #Chronic abdominal pain with jerking movement: - Spastic abdominal pain which are kind of constant a/w jerking movement of upper part of the body. Possibly neurologic involvement. 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 - Follows with the licensed nurse practitioner and neurologist. -Ct a/p: Trace pleural effusions with mild bibasilar atelectasis. -Colonoscopy with polypectomy done 05/16 and EGD 05/14 and CTA shows no significant findings. -EEG on 01/27 shows no seizure. -Status post Juan-en-Y gastric bypass. -Continue Protonix. - MRI spine to r/o demyelinating disorder couldn't be performed so recommend performing on outpatient settings. Suspect Possible cause is anxiety related abdominal spasm. #Anxiety and depression: -Patient does report he has increase in anxiety and low mood recently because of his multiple chronic health conditions which is agreed by his too. - Continue Sertaline. - The chronic abdominal spasm with jerking of the upper body possibly would benefit from the psychiatric management. Would recommend referral to psychiatrist and stress management. #HFpEF) heart failure with preserved ejection fraction: -BNP- 726 -Continue Torsemide #CKD stage G4/A3 - Baseline Cr - 2.5-3.0 , CR-1.97 -S/p transcatheter MV repair. 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 Renal impairment is on the basis of solitary kidney and microvascular disease #FIFI -BiPAP qHS, patient has his own machine #Atrial Fibrillation -Continue Apixaban #CKD -Continue Rocaltrol #History of male breast cancer -Continue Tamoxifen Total Time Total Time Spent Total Time Spent (In Minutes): <30 Discharge Plan Discharge Items Patient Disposition: Home - Self-Care Reason For Visit: DECONDITIONING WITH ABDOMINAL PAIN Discharge Diagnosis: Deconditioning with Chronic abdominal pain Condition on Discharge: Fair Activity: Per Instructions section Non-emergency contact: Primary Care Provider Call non-emergency contact if: your symptoms worsen, your pain is not controlled and your temperature is above 101 Follow-up/Referrals: Zackery Cochran DO [Primary Care Provider] - 02/09/25 1:00 pm Diet: Low Potassium (2gm) Addtl Attending Provider Instructions: You were admitted to [facility] because of weakness and chronic abdominal pain with jerking movement of your upper body. With regard to your symptoms we treated you with some fluids because of your dehydration and we consulted physical therapy for you to improve your weakness who recommended you to continue the physical therapy at home. Looking at the CT abdomen which showed no abnormalities and endoscopy which was done before, we didn't find any direct cause for abdominal pain.We think there could be some anxiety related component for the cause of your symptom too so we recommend you to follow with a psychiatrist to make sure you cover all the areas that's needed for your symptom control. MRI spine to rule out any demyelinating disorder couldn't be done at hospital so we recommend you to schedule the test in outpatient. You were deemed safe to discharge when your weakness got better. You will continue your home medications as noted below. Please make sure you follow up with your PCP to make sure your condition continues to be stable. Please continue your regular PT/OT at home. Thank you for choosing [facility] as your healthcare provider Pending Studies at Discharge: No Stand-Alone Forms: My [facility], Smoking Cessation Medications and DC Order Prescriptions: Continued triamcinolone acetonide 0.025 % cream 1 applic topical BID PRN (Reason: SKIN IRRITATIONS) methocarbamol 500 mg tablet 500 mg PO TID Qty: 90 0RF metolazone 5 mg tablet 5 mg PO DAILY PRN (Reason: weight gain) Qty: 30 5RF calcitriol 0.25 mcg capsule 0.5 mcg PO QAM Qty: 180 3RF midodrine 10 mg tablet 10 mg PO TID Qty: 30 0RF Rx Instructions: do not give last dose of day after 6PM or within [address] [facility] PER DR[facility] BOGGS [facility] tamoxifen 20 mg tablet 20 mg PO QAM Qty: 90 1RF tramadol 50 mg tablet 50 mg PO BID PRN (Reason: Pain) Qty: 60 0RF ferrous sulfate 324 mg (65 mg iron) tablet,delayed release (DR/EC) 324 mg PO BID 90 Days Qty: 180 3RF magnesium 200 mg tablet 200 mg PO DAILY Qty: 90 3RF allopurinol 100 mg tablet 50 mg PO .EVERY OTHER DAY Qty: 45 3RF levetiracetam [Keppra] 250 mg tablet 250 mg PO BID Qty: 60 2RF pantoprazole 40 mg tablet,delayed release (DR/EC) 40 mg PO BID 90 Days Qty: 180 2RF Eliquis 2.5 mg tablet 2.5 mg PO BID Qty: 60 6RF (DME) CPAP Machine Misc See Rx Instructions .Route Rx Instructions: As directed HS- With 02 torsemide 40 mg tablet 40 mg PO BID 90 Days Qty: 180 2RF cholecalciferol (vitamin D3) [Vitamin D3] 50 mcg (2,000 unit) Capsule 50 mcg PO DAILY (DME) Portable Oxygen Misc See Rx Instructions .Route Rx Instructions: 3 L at night nime potassium chloride 20 mEq tablet,ER particles/crystals 20 meq PO BID cyanocobalamin (vitamin B-12) 1,000 mcg/mL solution 1,000 mcg IM WK Rx Instructions: WAS DUE 01/31/25 fluticasone propionate 50 mcg/actuation spray,suspension 2 spray intranasal DAILY PRN (Reason: Congestion) Rx Instructions: administer into each nostril sertraline 50 mg tablet 50 mg PO QAM Discharge Orders: Discharge Order (Routine); Ordered 02/03/25 Ordered By: Felicia Tobin Admission Data Admit Date/Time: 02/01/25 13:34 Attending Provider: Jerrell Douglas Admit Provider: Jerrell Douglas Primary Care Provider: Zackery Cochran Other Providers: Kyler Toure Other Interventions: Discharge Summary Assessment (RN) Last Done: 02/03/25 15:58 Supervising Physician Co-Signing Physician Notes I personally examined the patient and verified all jeronimo points of history and exam, discussed case, and agree with decision making with Dr Tobin feels about the same. Relates that he feels up to going home. Expresses good understanding.Vitals noted, in general he is resting comfortably in bed and at times alternates between appearing in no distress and at times having a degree of what appears to be almost more of an upper body tremor that may be centers on his abdomen, Although more muted than before. Breathing unlabored no accessory muscle use good effort. Skin without pallor or icterus. Neuro without focal deficits. Abdominal wall spasmsseems to be some semblance of functional neuromuscular. unable to get C-spine and T-spine MRIs right now due to having treated for possible scabiesbut discussed with patient I highly doubt these will be of yield, and we will ask for them to be scheduled as an outpatient. on 02/02, discussed with patient in depth about my main working diagnosis that these are essentially an offshoot of his anxiety/PTSD, and essentially a "neuromuscular panic attack"he expresses a good understanding of this, and we Segway immediately into discussion of better overall management of his anxietyincluding some form of "talk therapy" (he is not at all opposed) as well as self management skills for stress. today reiterated these discussions, and he expresses good understanding and acceptance. skin lesionspruritic, not entirely consistent with scabies but also not inconsistent with scabies. Discussed empiric treatment. Utilize topical steroids for itching. It also also may be psychogenic. Follow periodically C. difficile colitiscontinue treatment DVT prophylaxisanticoagulated Safe/stable for home Resident Activity Tracking Resident Involvement: Resident Care Provided Care Provided: Adult Hospital Medicine
--- NOTE | 2025-02-03 15:54 | Billing Data ---
Date of Service February 03, 2025 Coding Level of Care Code 75603 IN/OBS DISCH 30 MIN/LESS
== END 2025-02-03 16:38 | disposition home or self-care (01) | DRG 392 ==
LOC: ED 11:54 → 2S 11:54